=== PATIENT | female | born 1940 | race Caucasian/White ===

== ENCOUNTER → 2017-11-24 09:07 | Outpatient (CLI) | payer MEDICARE, OTHER, SELFPAY ==
[2017-11-24 10:14] LABS: Absolute Lymphocyte Count 1.86 X10^3/ul (0.83-4.51); Absolute Neutrophil Count 4.7 X10^3/uL (2.0-7.7); Basophil# 0.05 X10^3/uL; Basophil% 0.7 % (0-1); Eosinophil# 0.34 X10^3/uL; Eosinophils% 4.6 % (0-5); Lymphocyte # 1.86 X10^3/ul (4.0); Lymphocyte % 24.9 % (19-41); Mean Corp Hgb Conc 32.5 g/gl (32-36); Mean Corpuscular Hgb 32.9 pg (27.0-32.0); Mean Corpuscular Volume 101.3 fL (81-99); Mean Platelet Vol. 10.1 fl (6.2-12.0); Monocyte# 0.52 X10^3/uL; Neutrophil # 4.67 X10^3/uL (2.7-7.7); Neutrophil % 62.5 % (47-70); Platelet Count 275 K/mm3 (150-450); RBC Distribution Width CV 13.3 % (11.6-14.6); RBC Distribution Width SD 48.8 fl (35.1-43.9); Red Blood Count 3.95 M/mm3 (4.2-5.4); White Blood Count 7.5 K/mm3 (4.4-11.0)
[2017-11-24 10:15] LABS: POSITIVE COUNT NO; POSITIVE DIFFERENTIAL NO; POSITIVE MORPHOLOGY NO
[2017-11-24 10:32] LABS: Hemoglobin A1c 6.8 % (4.2-6.3)
[2017-11-24 10:41] LABS: Microalbumin:Creatinine Ratio 36.5 mg/g CRE (<30 mg/g CRE)
[2017-11-24 10:49] LABS: AST(SGOT) 20 U/L (15-37); Alanine Aminotransfer ALT/SGPT 28 U/L (13-56); Albumin, Serum 3.3 g/dL (3.2-5.0); Alkaline Phosphatase 100 U/L (45-117); Anion Gap 8 (5-15); BUN 12 mg/dL (7-18); BUN/Creat Ratio 16.7 RATIO (10-20); Calcium,Total 8.7 mg/dL (8.5-10.1); Chloride 106 mmol/L (98-107); Creatinine, Serum 0.72 mg/dL (0.55-1.02); EST Glomerular Filtration Rate 83 mL/min (>60); Est Glom Filt Rate - Afr Amer 101 mL/min (>60); Ferritin 66 ng/mL (8-252); Globulin 3.4 g/dL (2.2-4.2); Glucose 109 mg/dL (74-106); Potassium 4.2 mmol/L (3.5-5.1); Protein, Total 6.7 g/dL (6.4-8.2); Sodium Level 142 mmol/L (136-145); Thyroid Stim Hormone (TSH) 1.86 uIU/mL (0.358-3.74)
[2017-11-25 09:03] LABS: Vitamin B12 1445 pg/mL (211-911); Vitamin D,25 Hydroxy 42.7 ng/mL (29.95-100.01)
== END ==
PROVIDERS: Family Provider Family Medicine; PCP Family Medicine; Visit Provider Family Medicine
DX: E88.81 Metabolic syndrome and other insulin resistance (principal); G62.9 Polyneuropathy, unspecified; E55.9 Vitamin D deficiency, unspecified; E53.8 Deficiency of other specified B group vitamins
CPT/HCPCS: 36415; 80053; 82043; 82306; 82570; 82607; 82728; 82746; 83036; 84443; 85025

== ENCOUNTER → 2018-02-21 10:47 | Outpatient (CLI) | payer MEDICARE, OTHER, SELFPAY ==
[2018-02-21 12:21] LABS: Erythrocyte Sedimentation Rate 4 mm/hr (0-30)
[2018-02-21 12:24] LABS: Absolute Lymphocyte Count 1.69 X10^3/ul (0.83-4.51); Absolute Neutrophil Count 9.5 X10^3/uL (2.0-7.7); Basophil# 0.03 X10^3/uL; Basophil% 0.2 % (0-1); Eosinophil# 0.19 X10^3/uL; Eosinophils% 1.6 % (0-5); Hematocrit 41.1 % (37-47); Hemoglobin 13.3 g/dl (12.0-15.0); Lymphocyte # 1.69 X10^3/ul (4.0); Mean Corp Hgb Conc 32.4 g/gl (32-36); Mean Corpuscular Hgb 31.8 pg (27.0-32.0); Mean Corpuscular Volume 98.3 fL (81-99); Mean Platelet Vol. 10.3 fl (6.2-12.0); Monocyte# 0.65 X10^3/uL; Monocyte% 5.4 % (0-10); Neutrophil % 78.5 % (47-70); Platelet Count 288 K/mm3 (150-450); RBC Distribution Width CV 13.6 % (11.6-14.6); RBC Distribution Width SD 47.6 fl (35.1-43.9); Red Blood Count 4.18 M/mm3 (4.2-5.4); White Blood Count 12.1 K/mm3 (4.4-11.0)
[2018-02-21 12:25] LABS: POSITIVE COUNT NO; POSITIVE DIFFERENTIAL NO; POSITIVE MORPHOLOGY NO
[2018-02-21 12:41] LABS: CRP 5.63 mg/L (0.0-3.0)
== END ==
PROVIDERS: Family Provider Family Medicine; PCP Family Medicine; Referring Provider Physician Assistant Surgical; Visit Provider Physician Assistant Surgical
DX: M17.11 Unilateral primary osteoarthritis, right knee (principal); M25.561 Pain in right knee
CPT/HCPCS: 36415; 85025; 85652; 86140

== ENCOUNTER → 2018-05-01 09:04 | Outpatient (CLI) | payer MEDICARE, OTHER, SELFPAY ==
[2017-09-16 10:22] VITALS: BMI 31.1
[2018-05-01 10:22] LABS: Absolute Lymphocyte Count 1.56 X10^3/ul (0.83-4.51); Absolute Neutrophil Count 7.7 X10^3/uL (2.0-7.7); Basophil# 0.05 X10^3/uL; Basophil% 0.5 % (0-1); Eosinophil# 0.36 X10^3/uL; Eosinophils% 3.5 % (0-5); Hematocrit 39.4 % (37-47); Hemoglobin 12.5 g/dl (12.0-15.0); Lymphocyte # 1.56 X10^3/ul (4.0); Lymphocyte % 15.1 % (19-41); Mean Corp Hgb Conc 31.7 g/gl (32-36); Mean Corpuscular Hgb 30.6 pg (27.0-32.0); Mean Corpuscular Volume 96.6 fL (81-99); Mean Platelet Vol. 10.1 fl (6.2-12.0); Monocyte# 0.64 X10^3/uL; Monocyte% 6.2 % (0-10); Neutrophil # 7.72 X10^3/uL (2.7-7.7); Neutrophil % 74.4 % (47-70); Platelet Count 257 K/mm3 (150-450); RBC Distribution Width CV 13.9 % (11.6-14.6); RBC Distribution Width SD 49.6 fl (35.1-43.9); Red Blood Count 4.08 M/mm3 (4.2-5.4); White Blood Count 10.4 K/mm3 (4.4-11.0)
[2018-05-01 10:23] LABS: POSITIVE COUNT NO; POSITIVE DIFFERENTIAL NO; POSITIVE MORPHOLOGY NO
[2018-05-01 10:50] LABS: Vitamin B12 851 pg/mL (211-911); Vitamin D,25 Hydroxy 42.4 ng/mL (29.95-100.01)
[2018-05-01 10:57] LABS: AST(SGOT) 14 U/L (15-37); Alanine Aminotransfer ALT/SGPT 21 U/L (13-56); Albumin, Serum 3.2 g/dL (3.2-5.0); Alkaline Phosphatase 106 U/L (45-117); Anion Gap 10 (5-15); BUN 12 mg/dL (7-18); BUN/Creat Ratio 16.3 RATIO (10-20); CRP 9.52 mg/L (0.0-3.0); Calcium,Total 8.4 mg/dL (8.5-10.1); Chloride 107 mmol/L (98-107); Creatinine, Serum 0.73 mg/dL (0.55-1.02); EST Glomerular Filtration Rate 81 mL/min (>60); Est Glom Filt Rate - Afr Amer 98 mL/min (>60); Globulin 3.3 g/dL (2.2-4.2); Glucose 93 mg/dL (74-106); Potassium 4.3 mmol/L (3.5-5.1); Protein, Total 6.5 g/dL (6.4-8.2); Sodium Level 142 mmol/L (136-145); Thyroid Stim Hormone (TSH) 1.77 uIU/mL (0.358-3.74)
[2018-05-03 12:02] LABS: ANTINUCLEAR ANTIBODIES DIRECT Negative (Negative)
--- OUTSIDE RECORDS SUMMARY | 2018-08-02 20:27 | XMS RPT_ITS ---
:1940 Author Organization OHIP Care Team Providers Name Role Phone Steve Benavidez Attending Unavailable Steve Benavidez Primary Care Unavailable Maira Glass Attending Unavailable Ya Recinos Attending Unavailable Maira Glass Attending Unavailable Maribell Arias Attending Unavailable Steve Benavidez Referring Unavailable Steve Benavidez Primary Care Unavailable Steve Benavidez Attending Unavailable Steve Benavidez Primary Care Unavailable Jimenez Steen PA-C Attending Unavailable Jimenez Steen PA-C Referring Unavailable Steve Benavidez Primary Care Unavailable PROBLEMS PROBLEMS DATE TYPE CONDITION / CODE ATTENDING STATUS SOURCE 02/21/2018 Unknown M17.11 - Celsa Active [place] Unilateral primary Jimenez KIMBALL [facility] osteoarthritis, [facility] right knee / Repository M17.11(ICD-10) 02/21/2018 Unknown M25.561 - Pain in [place], Active [place] right knee / [facility] M25.561(ICD-10) Hospital Repository 11/24/2017 Unknown E88.81 - Metabolic Benavidez, Steve Active [place] syndrome / [facility] E88.81(ICD-10) Hospital Repository 11/24/2017 Unknown G62.9 - Benavidez, Steve Active [place] Polyneuropathy, Community unspecified / Hospital G62.9(ICD-10) Repository 11/24/2017 Unknown E55.9 - Vitamin D Benavidez, Steve Active [place] deficiency, Community unspecified / Hospital E55.9(ICD-10) Repository 11/24/2017 Unknown E53.8 - Deficiency Benavidez, Steve Active [facility] of other specified Community [facility] group vitamins / Hospital E53.8(ICD-10) Repository 09/16/2017 Unknown I48.0 - Paroxysmal [place], Active [place] atrial Maribell M [facility] fibrillation / Hospital I48.0(ICD-10) Repository PROCEDURES PROCEDURES No Procedure Records FoundRESULTS RESULTS CBC W/DIFF, AUTOMATED Collected: 05/01/2018 Status: F Source: [place] 9:07 AM [facility] REPOSITORY TYPE CODE TESTS RESULT OUT OF RANGE REFERENCE UNITS LAB L100.1000 4.4-11.0 K/mm3 Normal WBC 10.4 LAB L100.1200 4.2-5.4 M/mm3 Low RBC 4.08 LAB L100.1300 12.0-15.0 g/dl Normal HGB 12.5 LAB L100.1400 37-47 % Normal HCT 39.4 LAB L100.1500 81-99 fL Normal MCV 96.6 LAB L100.1600 27.0-32.0 pg Normal MCH 30.6 LAB L100.1700 32-36 g/gl Low MCHC 31.7 LAB L100.1810 11.6-14.6 % Normal RDW CV 13.9 LAB L100.1820 35.1-43.9 fl High RDW SD 49.6 LAB L100.1900 150-450 K/mm3 Normal PLT 257 LAB L100.2000 6.2-12.0 fl Normal MPV 10.1 LAB L100.2100 47-70 % High NEUT% 74.4 LAB L100.2200 19-41 % Low LY% 15.1 LAB L100.2300 0-10 % Normal MONO% 6.2 LAB L100.2400 0-5 % Normal EO% 3.5 LAB L100.2500 0-1 % Normal BASO% 0.5 LAB L100.2550 0.0-0.9 % Normal IM GRAN % 0.300 Result Comment: IG% - Immature Granulocytes (promyelocytes, myelocytes and metamyelocytes) > 1% indicates that a LEFT SHIFT is Present. LAB L100.2620 2.0-7.7 X10 3/uL Normal Absolute Neut 7.7 LAB L100.2720 0.83-4.51 X10 3/ul Normal Absolute Lymph 1.56 Performed By: #### L100.0100 #### [facility] [address] [place], [address] VITAMIN B12 Collected: 05/01/2018 Status: F Source: [place] 9:07 [facility] REPOSITORY TYPE CODE TESTS RESULT OUT OF RANGE REFERENCE UNITS LAB L503.0105 211-911 pg/mL Normal Vitamin B12 851 Performed By: #### L503.0105, L506.1000 #### [facility] [address] [place], [address] VITAMIN D,25 HYDROXY Collected: 05/01/2018 Status: F Source: [place] 9:07 [facility] REPOSITORY TYPE CODE TESTS RESULT OUT OF RANGE REFERENCE UNITS LAB L506.1000 29.95-100.01 ng/mL Normal Vitamin D 42.4 25-OH Result Comment: Vitamin D 25(OH) Status Range Deficiency <20 ng/mL (50nmol/L) Insuffciency 20 - 30 ng/mL (50 - 75 nmol/L) Sufficiency 30 - 100 ng/mL (75 - 250 nmol/L) Toxicity >100 ng/mL (>250 nmol/L) Performed By: #### L503.0105, L506.1000 #### [facility] [address] [place], [address] COMPREHENSIVE METABOLIC Collected: 05/01/2018 Status: F Source: [facility] 9:07 [facility] REPOSITORY TYPE CODE TESTS RESULT OUT OF RANGE REFERENCE UNITS LAB L501.0100 74-106 mg/dL Normal GLU 93 Result Comment: Please note revised GLUCOSE reference range effective 2017. LAB L501.1000 7-18 mg/dL Normal BUN 12 LAB L501.1100 0.55-1.02 mg/dL Normal CREAT,SERUM 0.73 Result Comment: The validity of the calculated GFR AND GFRAA in patients over 70 years has not been determined. Clinical correlation is essential. LAB L501.1110 >60 mL/min Normal EST GFR 81 Result Comment: Non- GFR Calc LAB L501.1115 >60 mL/min Normal EST GFR - AA 98 Result Comment: GFR Calc LAB L501.1300 10-20 RATIO Normal BUN/CRE 16.3 LAB L501.1500 6.4-8.2 g/dL T Normal PROT 6.5 LAB L501.1800 3.2-5.0 g/dL Normal ALB 3.2 LAB L501.1950 2.2-4.2 g/dL Normal GLOB 3.3 LAB L501.2000 0.9-2.4 RATIO Normal A/G 1.0 LAB L501.2200 8.5-10.1 mg/dL Low CA 8.4 LAB L501.4100 15-37 U/L Low AST 14 LAB L501.4305 45-117 U/L Normal ALK P 106 LAB L501.4405 13-56 U/L Normal ALT 21 LAB L501.4600 0.20-1.00 mg/dL T Normal BILI 0.30 LAB L501.5300 136-145 mmol/L NA Normal 142 LAB L501.5600 3.5-5.1 mmol/L K Normal 4.3 LAB L501.5900 98-107 mmol/L CL Normal 107 LAB L501.6100 21.0-32.0 mmol/L Normal CO2 25.0 LAB L501.6200 5-15 Normal GAP 10 Performed By: #### L500.4050, L501.6710, L501.9520 #### [place] [facility] [address] [place], [address] CRP Collected: 05/01/2018 Status: F Source: [place] 9:07 [facility] REPOSITORY TYPE CODE TESTS RESULT OUT OF RANGE REFERENCE UNITS LAB L501.6710 0.0-3.0 mg/L High 9.52 C-REACTIVE PROT Result Comment: C-Reactive Protein (CRP) provides useful information for the diagnosis, therapy and monitoring of inflammatory processes and associated diseases. For the evaluation of Relative Risk for Cardiovascular Disease, a High Sensitivity CRP (HSCRP) should be ordered. Performed By: #### L500.4050, L501.6710, L501.9520 #### [facility] [address] [place], [place], [address] THYROID STIM HORMONE Collected: 05/01/2018 Status: F Source: [place] (TSH) 9:[address] [facility] REPOSITORY TYPE CODE TESTS RESULT OUT OF RANGE REFERENCE UNITS LAB L501.9520 0.358-3.74 uIU/mL Normal TSH 1.77 Performed By: #### L500.4050, L501.6710, L501.9520 #### [facility] [address] [place], [place], [id number] ANTINUCLEAR ANTIBODIES Collected: 05/01/2018 Status: F Source: [place] DIRECT 9:[address] [facility] REPOSITORY TYPE CODE TESTS RESULT OUT OF RANGE REFERENCE UNITS LAB L3100.5475 Negative Normal Negative ILEANA-DIRECT Result Comment: Performed at: - [facility] [id number] Procurement Consultant: Ernie Hanson PhD, Phone: [phone] Performed By: #### L3100.5475 #### [facility] (refer to report for specific site) refer to report for address and phone number ERYTHROCYTE SED RATE Collected: 02/21/2018 Status: F Source: [place] 10:[address] [facility] REPOSITORY TYPE CODE TESTS RESULT OUT OF RANGE REFERENCE UNITS LAB L102.0000 0-30 mm/hr Normal SED RATE 4 Performed By: #### L101.9900, L100.0100 #### [facility] [address] [place], [place], [address] CBC W/DIFF, AUTOMATED Collected: 02/21/2018 Status: F [facility] [place] [facility] TYPE CODE TESTS RESULT OUT OF RANGE REFERENCE UNITS LAB L100.1000 4.4-11.0 K/mm3 High WBC 12.1 LAB L100.1200 4.2-5.4 M/mm3 Low RBC 4.18 LAB L100.1300 12.0-15.0 g/dl Normal HGB 13.3 LAB L100.1400 37-47 % Normal HCT 41.1 LAB L100.1500 81-99 fL Normal MCV 98.3 LAB L100.1600 27.0-32.0 pg Normal MCH 31.8 LAB L100.1700 32-36 g/gl Normal MCHC 32.4 LAB L100.1810 11.6-14.6 % Normal RDW CV 13.6 LAB L100.1820 35.1-43.9 fl High RDW SD 47.6 LAB L100.1900 150-450 K/mm3 Normal PLT 288 LAB L100.2000 6.2-12.0 fl Normal MPV 10.3 LAB L100.2100 47-70 % High NEUT% 78.5 LAB L100.2200 19-41 % Low LY% 14.0 LAB L100.2300 0-10 % Normal MONO% 5.4 LAB L100.2400 0-5 % Normal EO% 1.6 LAB L100.2500 0-1 % Normal BASO% 0.2 LAB L100.2550 0.0-0.9 % Normal IM GRAN % 0.300 Result Comment: IG% - Immature Granulocytes (promyelocytes, myelocytes and metamyelocytes) > 1% indicates that a LEFT SHIFT is Present. LAB L100.2620 2.0-7.7 X10 3/uL High Absolute Neut 9.5 LAB L100.2720 0.83-4.51 X10 3/ul Normal Absolute Lymph 1.69 Performed By: #### L101.9900, L100.0100 #### [facility] [place], [address] CRP Collected: 02/21/2018 Status: F Source: [place] 10:[address] [facility] REPOSITORY TYPE CODE TESTS RESULT OUT OF RANGE REFERENCE UNITS LAB L501.6710 0.0-3.0 mg/L High 5.63 C-REACTIVE PROT Result Comment: C-Reactive Protein (CRP) provides useful information for the diagnosis, therapy and monitoring of inflammatory processes and associated diseases. For the evaluation of Relative Risk for Cardiovascular Disease, a High Sensitivity CRP (HSCRP) should be ordered. Performed By: #### L501.6710 #### [facility] [place], [address] CBC W/DIFF, AUTOMATED Collected: 11/24/2017 Status: F Source: [place] 9:[address] [facility] REPOSITORY Order Comment: Order Date: 11/23/17 Order Info: 0184-1 - CBCD TYPE CODE TESTS RESULT OUT OF RANGE REFERENCE UNITS LAB L100.1000 4.4-11.0 K/mm3 Normal WBC 7.5 LAB L100.1200 4.2-5.4 M/mm3 Low RBC 3.95 LAB L100.1300 12.0-15.0 g/dl Normal HGB 13.0 LAB L100.1400 37-47 % Normal HCT 40.0 LAB L100.1500 81-99 fL High MCV 101.3 LAB L100.1600 27.0-32.0 pg High MCH 32.9 LAB L100.1700 32-36 g/gl Normal MCHC 32.5 LAB L100.1810 11.6-14.6 % Normal RDW CV 13.3 LAB L100.1820 35.1-43.9 fl High RDW SD 48.8 LAB L100.1900 150-450 K/mm3 Normal PLT 275 LAB L100.2000 6.2-12.0 fl Normal MPV 10.1 LAB L100.2100 47-70 % Normal NEUT% 62.5 LAB L100.2200 19-41 % Normal LY% 24.9 LAB L100.2300 0-10 % Normal MONO% 7.0 LAB L100.2400 0-5 % Normal EO% 4.6 LAB L100.2500 0-1 % Normal BASO% 0.7 LAB L100.2550 0.0-0.9 % Normal IM GRAN % 0.300 Result Comment: IG% - Immature Granulocytes (promyelocytes, myelocytes and metamyelocytes) > 1% indicates that a LEFT SHIFT is Present. LAB L100.2620 2.0-7.7 X10 3/uL Normal Absolute Neut 4.7 LAB L100.2720 0.83-4.51 X10 3/ul Normal Absolute Lymph 1.86 Performed By: #### L100.0100, L501.9985, L502.0250, L500.4050, L501.9520, L503.6550, L506.0250, L503.0105, L506.1000 #### [facility] [address] [place], [place], [address] HEMOGLOBIN A1C Collected: 11/24/2017 Status: F Source: [place] 9:[address] [facility] REPOSITORY Order Comment: Order Date: 11/23/17 Order Info: 4548-4 - A1C TYPE CODE TESTS RESULT OUT OF RANGE REFERENCE UNITS LAB L501.9985 4.2-6.3 % High HGB A1C 6.8 Performed By: #### L100.0100, L501.9985, L502.0250, L500.4050, L501.9520, L503.6550, L506.0250, L503.0105, L506.1000 #### [facility] [address] [place], [place], [address] MICROALB:CREAT Collected: 11/24/2017 Status: F Source: [place] 9:[address] [facility] REPOSITORY Order Comment: Order Date: 11/23/17 Order Info: 0779-1 - [place] TYPE CODE TESTS RESULT OUT OF RANGE REFERENCE UNITS LAB L501.1200 NO RANGE EST. mg/dL Normal UR CREAT 104.00 LAB L502.0500 NO RANGE EST. mg/L Normal 38.0 MICROALBUMIN ,UR LAB L502.0600 <30 mg/g CRE mg/g CRE High 36.5 MALB:CREAT Performed By: #### L100.0100, L501.9985, L502.0250, L500.4050, L501.9520, L503.6550, L506.0250, L503.0105, L506.1000 #### [facility] [address] [place], [place], [address] COMPREHENSIVE METABOLIC Collected: 11/24/2017 Status: F Source: [place] 9:[address] [facility] REPOSITORY Order Comment: Order Date: 11/23/17 Order Info: 0786-1 - CMP Order Info: 3016-3 - TSH Order Info: 2276-4 - CORBY Order Info: 2284-8 - FOLS Is Patient Taking Vitamins or Folic Acid Supplements? N TYPE CODE TESTS RESULT OUT OF RANGE REFERENCE UNITS LAB L501.0100 74-106 mg/dL High GLU 109 Result Comment: Fasting Glucose result from 100 to 125 mg/dL suggests IMPAIRED HOMEOSTASIS per A.D.A. criteria. Please note revised GLUCOSE reference range effective 2017. LAB L501.1000 7-18 mg/dL Normal BUN 12 LAB L501.1100 0.55-1.02 mg/dL Normal CREAT,SERUM 0.72 Result Comment: The validity of the calculated GFR AND GFRAA in patients over 70 years has not been determined. Clinical correlation is essential. LAB L501.1110 >60 mL/min Normal EST GFR 83 Result Comment: Non- GFR Calc LAB L501.1115 >60 mL/min Normal EST GFR - AA 101 Result Comment: GFR Calc LAB L501.1300 10-20 RATIO Normal BUN/CRE 16.7 LAB L501.1500 6.4-8.2 g/dL T Normal PROT 6.7 LAB L501.1800 3.2-5.0 g/dL Normal ALB 3.3 LAB L501.1950 2.2-4.2 g/dL Normal GLOB 3.4 LAB L501.2000 0.9-2.4 RATIO Normal A/G 1.0 LAB L501.2200 8.5-10.1 mg/dL CA Normal 8.7 LAB L501.4100 15-37 U/L Normal AST 20 LAB L501.4305 45-117 U/L Normal ALK P 100 LAB L501.4405 13-56 U/L Normal ALT 28 LAB L501.4600 0.20-1.00 mg/dL T Normal BILI 0.40 LAB L501.5300 136-145 mmol/L NA Normal 142 LAB L501.5600 3.5-5.1 mmol/L K Normal 4.2 LAB L501.5900 98-107 mmol/L CL Normal 106 LAB L501.6100 21.0-32.0 mmol/L Normal CO2 28.0 LAB L501.6200 5-15 Normal GAP 8 Performed By: #### L100.0100, L501.9985, L502.0250, L500.4050, L501.9520, L503.6550, L506.0250, L503.0105, L506.1000 #### [facility] [address] [place], [place], [address] THYROID STIM HORMONE Collected: 11/24/2017 Status: F Source: [place] (TSH) 9:[address] [facility] REPOSITORY Order Comment: Order Date: 11/23/17 Order Info: 0786- - CMP Order Info: 3015-07 - TSH Order Info: 2275-08 - CORBY Order Info: 2288 - FOLS Is Patient Taking Vitamins or Folic Acid Supplements? N TYPE CODE TESTS RESULT OUT OF RANGE REFERENCE UNITS LAB L501.9520 0.358-3.74 uIU/mL Normal TSH 1.86 Performed By: #### L100.0100, L501.9985, L502.0250, L500.4050, L501.9520, L503.6550, L506.0250, L503.0105, L506.1000 #### [facility] [address] [place], [place], [id number] FERRITIN Collected: 11/24/2017 Status: F Source: [place] 9:[address] [facility] REPOSITORY Order Comment: Order Date: 11/23/17 Order Info: 0786- - CMP Order Info: 3015-07 - TSH Order Info: 2275-08 - CORBY Order Info: 228-8 - FOLS Is Patient Taking Vitamins or Folic Acid Supplements? N TYPE CODE TESTS RESULT OUT OF RANGE REFERENCE UNITS LAB L503.6550 8-252 ng/mL Normal FERRITIN 66 Performed By: #### L100.0100, L501.9985, L502.0250, L500.4050, L501.9520, L503.6550, L506.0250, L503.0105, L506.1000 #### [facility] [address] [place], [place], [address] FOLATES, (FOLIC ACID) Collected: 11/24/2017 Status: F Source: [place] 9:09 [facility] REPOSITORY Order Comment: Order Date: 11/23/17 Order Info: 0786-1 - CMP Order Info: 3016-3 - TSH Order Info: 2276-4 - CORBY Order Info: 2284-8 - FOLS Is Patient Taking Vitamins or Folic Acid Supplements? N TYPE CODE TESTS RESULT OUT OF RANGE REFERENCE UNITS LAB L506.0250 3.1-55.4 ng/mL Normal FOLATES 17.70 Performed By: #### L100.0100, L501.9985, L502.0250, L500.4050, L501.9520, L503.6550, L506.0250, L503.0105, L506.1000 #### [facility] [address] [place], [place], [id number] VITAMIN B12 Collected: 11/24/2017 Status: F Source: [place] 9:09 [facility] REPOSITORY Order Comment: Order Date: 11/23/17 Order Info: 2132-9 - B12 Order Info: 40159-9 - VITD25 TYPE CODE TESTS RESULT OUT OF REFERENCE UNITS RANGE LAB L503.0105 211-911 pg/mL High Vitamin B12 1445 Performed By: #### L100.0100, L501.9985, L502.0250, L500.4050, L501.9520, L503.6550, L506.0250, L503.0105, L506.1000 #### [facility] [address] [place], [place], [address] VITAMIN D,25 HYDROXY Collected: 11/24/2017 Status: F Source: [place] 9:09 [facility] REPOSITORY Order Comment: Order Date: 11/23/17 Order Info: 2132-9 - B12 Order Info: 00210-0 - VITD25 TYPE CODE TESTS RESULT OUT OF RANGE REFERENCE UNITS LAB L506.1000 29.95-100.01 ng/mL Normal Vitamin D 42.7 25-OH Result Comment: Vitamin D 25(OH) Status Range Deficiency <20 ng/mL (50nmol/L) Insuffciency 20 - 30 ng/mL (50 - 75 nmol/L) Sufficiency 30 - 100 ng/mL (75 - 250 nmol/L) Toxicity >100 ng/mL (>250 nmol/L) Performed By: #### L100.0100, L501.9985, L502.0250, L500.4050, L501.9520, L503.6550, L506.0250, L503.0105, L506.1000 #### [facility] [address] [place], [address] CARDIOLOGY VISIT Observed: 09/16/2017 Status: F Source: [place] REPORT 11:[address] [facility] REPOSITORY [facility] [facility] [address] [place] [address] OFFICE VISIT Date of Service: 09/16/17 MR#: [id number] Acct: [id number] Name: MAGDY MIRAMONTES Rep #: [id number] : 1940 Provider: [place] Age/Sex: 76/F Location: [facility] Status: Signed HPI HPI Details: MAGDY MIRAMONTES, is a 76 F who presents to the office today for a cardiovascular follow-up. She has a history of paroxysmal atrial fibrillation and hypertension. EKG today demonstrates sinus rhythm with a heart rate of 75. From a cardiac standpoint, patient is doing well. She does not have any chest discomfort/heaviness/tightness. Her exercise tolerance is stable for her age. She does not have any worsening symptoms of shortness of breath. She does not have any orthopnea. She denies PND. She does not have any symptoms of congestive heart failure. She does not have any palpitations that she is aware of. She does occasionally have positional dizziness. She does not have any near-syncope or syncope. She does not have any lower extremity edema. She does not have any symptoms of claudication. She does have neuropathy and this affects her balance. Intake Vital Signs09/16/17 Height 5 ft 7.5 in 09/16/17 Weight: 202 lb 09/16/17 Body Mass Index (BMI) 31.1 09/16/17 Blood Pressure 122/62 Intake Visit Reasons: 6 M Telephone Triage Nurse Required: No Accompanied by: none Is patient in pain?: No Allergies bacitracin [From Neosporin (qcn-iwz-nyxqw)] Allergy (Verified 09/16/17 10:24) Rash bacitracin zinc [From Neosporin (jnf-eqo-nyfba)] Allergy (Verified 09/16/17 10:24) Rash codeine Allergy (Verified 09/16/17 10:24) Nausea neomycin sulfate [From Neosporin (aiq-ztb-nocmv)] Allergy (Verified 09/16/17 10:24) Rash nickel Allergy (Verified 09/16/17 10:24) Rash polymyxin B [From Neosporin (wmx-gdp-rkaba)] Allergy (Verified 09/16/17 10:24) Rash sulfamethoxazole [From Bactrim] Adverse Reaction (Verified 09/16/17 10:24) Itching trimethoprim [From Bactrim] Adverse Reaction (Verified 09/16/17 10:24) Itching Medications Biotin 1,000 mg PO DAILY 11/21/14 [History Confirmed 09/16/17] Cholecalciferol (Vitamin D3) [Vitamin D3] 10,000 unit PO DAILY 11/21/14 [History Confirmed 09/16/17] Cyanocobalamin [Vitamin B12] 1,000 mcg PO DAILY@0800 11/21/14 [History Confirmed 09/16/17] Lisinopril [Zestril] 20 mg PO DAILY 11/21/14 [History Confirmed 09/16/17] Aspirin [Aspirin, Baby] 81 mg PO DAILY 01/25/16 [History Confirmed 09/16/17] tramadol 50 mg tablet 50 mg PO QDAY PRN tab 09/08/17 [History Confirmed 09/16/17] gabapentin 300 mg capsule PO 30 Days #90 09/16/17 [History Confirmed 09/16/17] linaclotide 145 mcg capsule PO 60 Days #30 09/16/17 [History Confirmed 09/16/17] magnesium oxide 400 mg tablet PO 30 Days #60 09/16/17 [History Confirmed 09/16/17] Ejection fraction %: 60 to 64 PFSH Medical History Amputated toe of right foot (Resolved) Neuropathy, diabetic (Chronic) Hypertension (Chronic) DM2 (diabetes mellitus, type 2) (Chronic) Paroxysmal atrial fibrillation (Chronic) Surgical History History of neck surgery (Resolved) Hx of cholecystectomy (Resolved) History of appendectomy (Resolved) Deviated septum (Resolved) History of tonsillectomy (Resolved) H/O: hysterectomy (Resolved) Family History Father No problems noted. Mother No problems noted. Social History Smoking Status: Former smoker alcohol intake: never substance use type: does not use caffeine: No what type of physical activity do you participate in: other details: physical therapy seatbelt use: always do you feel safe at home: Yes ROS Const Const: Negative for weakness, fatigue, fever(s) or headache(s) Eyes Eyes: Negative for blind spots, loss of peripheral vision or transient loss of vision ENT ENT: Negative for headache(s), dizziness, tinnitus or Nosebleed/epistaxis Cardio Chest Pain: No Palpitations: No Edema: None Muscle aches with walking: None Resp Respiratory: Negative for SOB with activity, SOB at rest, SOB orthopnea\SOB lying down or Cough GI GI: Negative nausea, vomiting, heartburn or vomiting blood/hematemesis : Negative for hematuria Musc Musc: Negative for muscle aches/ myalgia Neuro Neuro: Negative for weakness, headache(s), dizziness, near syncope, syncope, lightheadedness or orthostatic symptoms Arun Hematologic/Lymphatic: Negative for easy bleeding Endo Endo: Negative for fatigue Cardiology Exam Const Appearance: cooperative, no acute distress and well developed Orientation: alert, awake and oriented x3 Head Head: normocephalic and atraumatic Mouth: moist mucous membranes Eyes General: appearance normal, both eyes and all related structures Conjunctivae: conjunctivae normal Pupils: PERRL EOM: EOM intact bilaterally Neck Neck: normal visual inspection, no lymphadenopathy and no JVD Carotids: Negative bruit Neck Mass: Negative Neck mass Chest Chest inspection: normal inspection of the chest and symmetric chest movement Auscultation: Bilateral: Clear to Auscultation Cardio Palpation: normal PMI Rate: regular rate Rhythm: regular rhythm Heart sounds: S1 normal and S2 normal; negative rub, gallop or murmur GI GI: normal to inspection, soft, no hepatosplenomegaly and bowel sounds present; negative tender Neuro General: alert, awake, oriented x3, CN's II-XI intact bilaterally and moves all extremities Extremities Pulses: Normal: Right Posterior Tibial Pulse, Left Posterior Tibial Pulse, Right Radial Pulse, Left Radial Pulse Lower Extremity Edema: None: Bilateral Psych Psychological: normal affect Supplemental Info Echocardiogram in 2016 demonstrates normal LV size, mild concentric LVH, left ventricular systolic function is normal with an estimated ejection fraction of 60%. Sigmoid symptom. Mild tricuspid insufficiency. RVSP 28 mmHg. Stress test was negative for ischemia. Assessment AND Plan 1. Paroxysmal atrial fibrillation I48.0 Plan Patient has not had any symptomatic recurrence. We will continue to monitor. If she has any further recurrence may need to consider anticoagulation. Orders Orders: 2. Hypertension I10 Plan Blood pressure is well controlled on current medications, we do not recommend any changes at this time. Plan Detail Other Medications New: Discontinued: Additional Comments Thank you for allowing us to participate in patient's plan of care, if you have any questions please do not hesitate to call. This note was generated using a voice recognition system and there may be incorrect words, spelling or punctuation errors that were not noted when reviewing the office note prior to saving. Follow Up 9 Months (PFM) Coding Level of Care Code Off vis,est,level 3 Diagnoses Paroxysmal atrial fibrillation I48.0 Hypertension I10 Hypertension type: essential hypertension Coding Level of Care Code Off vis,est,level 3 Diagnoses Paroxysmal atrial fibrillation I48.0 Hypertension I10 Hypertension type: essential hypertension 09/16/17 1110 <Electronically signed by Maribell YATES> Date Maribell YATES Cosigner Signature: Date (if applicable) CC: Steve Benavidez MD 12 LEAD EKG PERFORMED Observed: 09/16/2017 Status: F Source: [place] 10:[address] [facility] REPOSITORY [facility] [address] [place] [address] 12 Lead EKG performed by SUZI 09/16/17 1017 MR#: [id number] Acct: [id number] Name: MAGDY MIRAMONTES Rep #: [id number] : 1940 76 From: Maribell YATES Attending Dr: Maribell Arias Status: DEP AMB Ordering Dr: Maribell Arias Date: 09/16/17 Location: [facility] Sex: F C Admitted: BMS/12 Lead EKG performed by [facility] ECG Report Interpretation Sinus Rhythm Low voltage -possible pulmonary disease. ABNORMAL Electronically signed on 09/16/2017 at 14:16 by Beka Payan 09/16/17 1421 Date Maribell YATES CC: Steve Benavidez MD Date Dictated: 09/16/17 1017 Date Transcribed: 09/16/17 1017 [employer] Teacher: GREY Signed ALLERGIES ALLERGIES DATE TYPE / CODE NAME / CODE REACTION SEVERITY SOURCE 09/16/2017 Drug neomycin Rash Unknown [facility] Allergy/416 sulfate/[id number] [facility] [id number]([facility] ED CT) Repository 09/16/2017 Drug bacitracin Rash Unknown [facility] Allergy/416 zinc/[id number](R [facility] 783467([facility] ED CT) Repository 09/16/2017 Drug codeine/[id number] Nausea Unknown [facility] Allergy/416 0(RXNORM) Community 431699([facility] ED CT) Repository 09/16/2017 Drug bacitracin/X32271 Rash Unknown [place] Allergy/416 2798(RXNORM) Community 647945([facility] ED CT) Repository 09/16/2017 Drug sulfamethoxazole/ Itching Unknown [place] Allergy/416 [id number](RXNORM Community 315088[facility] ED [facility]) Repository 09/16/2017 Drug trimethoprim/F006 Itching Unknown [facility] Allergy/416 109440(RXNORM) Community 939086([facility] ED CT) Repository 09/16/2017 Drug polymyxin Rash Unknown [facility] Allergy/416 B/[id number](RXNO Community 146120([facility] ED CT) Repository 09/16/2017 Drug nickel/[id number] Rash Unknown [facility] Allergy/416 (RXNORM) [facility] 854935([facility] ED CT) Repository ENCOUNTERS ENCOUNTERS ADMIT/DISCHARGE ACCOUNT ADMITTING ENCOUNTER LOCATION SOURCE NUMBER CLASS 05/01/2018 [id number] Ambulatory [facility] [place] 0 [facility] ing:MFPLAB Repository 02/21/2018 [id number] Ambulatory [facility] [place] 5 [facility] ing:LAB Repository 11/24/2017 [id number] Ambulatory [place] 2 [facility] ing:MFPLAB Repository 09/16/2017/ [id number] Ambulatory BMSBuilding:B [place] [address] [facility] Repository 09/08/2017 [id number] Ambulatory BMS [facility] 6 [facility] Repository 09/05/2017 [id number] Ambulatory BMSBuilding:B [place] [address] [facility] Repository 08/30/2017 [id number] Ambulatory BMS [place] 1 [facility] Repository PAYERS PAYERS ENCOUNTER GUARANTOR PAYER SUBSCRIBER SOURCE 05/01/2018 MAGDY [facility] [id number] Primary MAGDY H [facility] [employer] Insurance:MEDICARE [place]OB: [place] PART A [facility] [id number] Hospital 99759Fhp: (234) Number: Repository [phone] ) [id number] Date:2018-05-01 05/01/2018 Secondary MAGDY H [facility] Insurance:CANDIDA LIFE PUNTELDOB: [facility] [id number] Hospital Number: Repository [id number] Date:3875-14-57[address] [place] [address]CP: 05/01/2018 Tertiary NOT GIVENUNK [place] Insurance:SELF PAY [facility] Number: Effective Repository Date:2018-05-01 02/21/2018 MAGDY H [id number] Primary MAGDY H [place] Insurance:MEDICARE PUNTELDOB: [place] PART A [facility] [id number] Hospital 88253Giw: (234) Number: Repository [phone] () [id number] Date:2018-02-20 02/21/2018 Secondary MAGDY H [facility] Insurance:CANDIDA LIFE PUNTELDOB: [facility] [id number] Hospital Number: Repository [id number] Date:[id number] [address]JI: 02/21/2018 Tertiary NOT GIVENUNK [facility] Insurance:SELF PAY [facility] Hospital Number: Effective Repository Date:2018-02-20 11/24/2017 MAGDY H [id number] Primary MAGDY H [facility] [employer] Insurance:MEDICARE PUNTELDOB: [place] PART A [facility] [id number] Hospital 17[address]Egw: (330) Number: Repository [phone] () [id number] Date:2017-11-24 11/24/2017 Secondary MAGDY H [facility] Insurance:CANDIDA LIFE PUNTELDOB: Community [facility] [id number] Hospital Number: Repository [id number] Date:[id number] [address]VF: 11/24/2017 Tertiary NOT GIVENUNK [facility] Insurance:SELF PAY [facility] Hospital Number: Effective Repository Date:2017-11-24 09/16/2017 MAGDY H [id number] Primary MAGDY H [facility] [place] Insurance:MEDICARE PUNTELDOB: [place] PART A [facility] [id number] Hospital 717[address]Rfq: (330) Number: Repository [phone] () [id number] Date:2017-09-05 09/16/2017 Secondary MAGDY H [place] Insurance:CANDIDA LIFE PUNTELDOB: Community [facility] [id number] Hospital Number: Repository [id number] Date:[id number] [address]UW: 09/16/2017 Tertiary NOT GIVENUNK [place] Insurance:SELF PAY [facility] Hospital Number: Effective Repository Date:2017-09-16 09/08/2017 MAGDY H [id number] Primary MAGDY H [facility] [employer] Insurance:MEDICARE PUNTELDOB: Community [facility], [place] PART A [facility] [id number] Hospital [address]Mut: (330) Number: Repository [phone] () [id number] Date:2017-09-08 09/08/2017 Secondary MAGDY H [facility] Insurance:CANDIDA LIFE PUNTELDOB: [facility] [id number] Hospital Number: Repository [id number] Date:[id number] [address] [address]BW: 09/08/2017 Tertiary NOT GIVENUNK [facility] Insurance:SELF PAY [facility] Hospital Number: Effective Repository Date:2017-09-08 09/05/2017 MAGDY H [id number] Primary MAGDY H [facility] [employer] Insurance:MEDICARE PUNTELDOB: [place], [place] PART A [facility] [id number] Hospital [address]35[address]Ngc: (330) Number: Repository [phone] () [id number] Date:2017-09-05 09/05/2017 Secondary MAGDY H [place] Insurance:CANDIDA LIFE PUNTELDOB: [facility] [id number] Hospital Number: Repository [id number] Date:[id number] [address]ZR: 09/05/2017 Tertiary NOT GIVENUNK [facility] Insurance:SELF PAY [facility] Hospital Number: Effective Repository Date:2017-09-05 08/30/2017 MAGDY H [id number] Primary MAGDY H [place] Insurance:MEDICARE PUNTELDOB: Community [facility], [place] PART A [facility] [id number] Hospital 89[address]Bye: (330) Number: Repository [phone] () [id number] Date:2017-08-30 08/30/2017 Secondary MAGDY H [facility] Insurance:CANDIDA ÁNGEL PUNTELDOB: [facility] [id number] [facility] Number: Repository [id number] Date:1183-13-76YV [address]Y [address] [address]HV: 08/30/2017 Tertiary NOT GIVENUNK [place] Insurance:SELF PAY [facility] Number: Effective Repository Date:2017-08-30
== END ==
PROVIDERS: Family Provider Family Medicine; PCP Family Medicine; Visit Provider Family Medicine
DX: E11.40 Type 2 diabetes mellitus with diabetic neuropathy, unspecified (principal); M25.50 Pain in unspecified joint; E55.9 Vitamin D deficiency, unspecified; E53.8 Deficiency of other specified B group vitamins
CPT/HCPCS: 36415; 80053; 82306; 82607; 84443; 85025; 86038; 86140

== ENCOUNTER → 2018-07-27 14:26 | Outpatient (CLI) | payer MEDICARE, OTHER, SELFPAY ==
[2017-09-16 10:22] VITALS: BMI 31.1
[2018-07-27 16:23] LABS: Absolute Lymphocyte Count 1.61 X10^3/ul (0.83-4.51); Absolute Neutrophil Count 7.6 X10^3/uL (2.0-7.7); Basophil# 0.05 X10^3/uL; Basophil% 0.5 % (0-1); Eosinophil# 0.28 X10^3/uL; Eosinophils% 2.7 % (0-5); Hematocrit 40.9 % (37-47); Hemoglobin 12.8 g/dl (12.0-15.0); Lymphocyte # 1.61 X10^3/ul (4.0); Lymphocyte % 15.7 % (19-41); Mean Corp Hgb Conc 31.3 g/gl (32-36); Mean Corpuscular Hgb 31.6 pg (27.0-32.0); Mean Platelet Vol. 10.7 fl (6.2-12.0); Monocyte# 0.69 X10^3/uL; Monocyte% 6.7 % (0-10); Neutrophil # 7.62 X10^3/uL (2.7-7.7); Neutrophil % 74.2 % (47-70); Platelet Count 248 K/mm3 (150-450); RBC Distribution Width CV 13.8 % (11.6-14.6); RBC Distribution Width SD 49.9 fl (35.1-43.9); Red Blood Count 4.05 M/mm3 (4.2-5.4); White Blood Count 10.3 K/mm3 (4.4-11.0)
[2018-07-27 16:47] LABS: POSITIVE COUNT NO; POSITIVE DIFFERENTIAL NO; POSITIVE MORPHOLOGY NO
[2018-07-27 16:51] LABS: ALB/GLOB Ratio 1.2 RATIO (0.9-2.4); AST(SGOT) 13 U/L (15-37); Alanine Aminotransfer ALT/SGPT 21 U/L (13-56); Albumin, Serum 3.6 g/dL (3.2-5.0); Alkaline Phosphatase 102 U/L (45-117); Anion Gap 6 (5-15); BUN 15 mg/dL (7-18); BUN/Creat Ratio 21.8 RATIO (10-20); Calcium,Total 8.9 mg/dL (8.5-10.1); Chloride 108 mmol/L (98-107); Creatinine, Serum 0.69 mg/dL (0.55-1.02); EST Glomerular Filtration Rate 88 mL/min (>60); Est Glom Filt Rate - Afr Amer 106 mL/min (>60); Globulin 2.9 g/dL (2.2-4.2); Glucose 98 mg/dL (74-106); Potassium 3.8 mmol/L (3.5-5.1); Protein, Total 6.5 g/dL (6.4-8.2); Sodium Level 144 mmol/L (136-145)
[2018-07-27 17:10] LABS: Hemoglobin A1c 5.9 % (4.2-6.3)
== END ==
PROVIDERS: Family Provider Family Medicine; PCP Family Medicine; Referring Provider Family Medicine; Visit Provider Family Medicine
DX: E11.40 Type 2 diabetes mellitus with diabetic neuropathy, unspecified (principal)
CPT/HCPCS: 36415; 80053; 83036; 85025

== ENCOUNTER → 2018-09-14 08:36 | Outpatient (CLI) | payer MEDICARE, OTHER, SELFPAY ==
[2018-09-13 13:59] VITALS: BMI 28.8
[2018-09-14 10:50] LABS: AST(SGOT) 14 U/L (15-37); Alanine Aminotransfer ALT/SGPT 18 U/L (13-56); Albumin, Serum 3.5 g/dL (3.2-5.0); Alkaline Phosphatase 94 U/L (45-117); Cholesterol 133 mg/dL (200); Globulin 3.1 g/dL (2.2-4.2); High Density Lipoprotein 52 mg/dL; Protein, Total 6.6 g/dL (6.4-8.2); Triglycerides 114 mg/dL; Very Low Density Lipoprotein 23 mg/dL (5-40)
== END ==
PROVIDERS: Family Provider Family Medicine; PCP Family Medicine; Referring Provider Internal Medicine Cardiovascular Disease; Visit Provider Internal Medicine Cardiovascular Disease
DX: I10 Essential (primary) hypertension (principal); I48.0 Paroxysmal atrial fibrillation
CPT/HCPCS: 36415; 80061; 80076

== ENCOUNTER → 2018-09-29 10:43 | Outpatient (CLI) | payer MEDICARE, OTHER, SELFPAY ==
[2018-09-13 13:59] VITALS: BMI 28.8
--- NOTE | 2018-09-29 10:46 | ECHOD_ITS ---
Reason For Study: MURMUR Procedure This was a 2D Doppler, Color Flow transthoracic echocardiogram. The study was technically difficult. Exam performed in department. Left Ventricle Normal LV size. Mild concentric left ventricular hypertrophy. Sigmoid septum. Left ventricular systolic function is normal. The estimated ejection fraction is 55 %. Diastolic function is indeterminate. No regional wall motion abnormalities noted. Right Ventricle Normal RV size. Normal systolic function. Atria Normal left atrium. Normal right atrium. No doppler evidence for ASD. Mitral Valve There is no mitral annular calcification. Normal mitral valve. Trivial mitral valve insufficiency. Tricuspid Valve Normal tricuspid valve. Mild eccentric tricuspid valve insufficiency. Right ventricular systolic pressure estimated to be 23 mmHg. Aortic Valve Trisinus/trileaflet aortic valve. Mild focal aortic valve calcification. Aortic sclerosis, no stenosis. Pulmonic Valve The pulmonic valve is not well visualized. Great Vessels Normal sized aortic root. Pericardium/Pleural No pericardial effusion. MMode/2D Measurements & Calculations LVIDd: 4.3 cm IVSd: 1.4 cm LVOT diam: 2.0 cm LVIDs: 2.5 cm LVPWd: 1.4 cm LVOT area: 3.2 cm2 RVDd: 3.6 cm FS: 42.4 % Ao root diam: 3.5 cm LAV(MOD-bp): 43.5 ml Aortic Valve Planimetry: 2.2 cm2 LAV(MOD-bp) Indexed: 22.6 ml/m2 LAV(MOD-sp2): 50.4 ml LAV(MOD-sp4): 33.4 ml LA dimension(2D): 3.0 cm LA A4 area: 14.1 cm2 RA A4 area: 13.4 cm2 Time Measurements MV dec time: 0.27 sec Doppler Measurements & Calculations MV E max kai: 74.8 cm/sec Lat Peak E' Kai: 5.2 cm/sec Med Peak E' Kai: 6.2 cm/sec MV A max kai: 88.0 cm/sec E/E' lat: 14.3 E/E' med: 12.1 MV E/A: 0.85 Ao V2 max: 174.1 cm/sec LV V1 max: 116.6 cm/sec SV(LVOT): 71.5 ml Ao max P.1 mmHg LV V1 max P.4 mmHg Ao V2 mean: 123.1 cm/sec LV V1 mean P.1 mmHg Ao mean P.7 mmHg LV V1 mean: 82.7 cm/sec Ao V2 VTI: 34.5 cm LV V1 VTI: 22.3 cm PRISCILLA(I,D): 2.1 cm2 PRISCILLA(V,D): 2.1 cm2 PA V2 max: 106.9 cm/sec TR max kai: 225.9 cm/sec TR max P.4 mmHg Interpretation Summary The study was technically difficult. Left ventricular systolic function is normal. The estimated ejection fraction is 55 %. Mild concentric left ventricular hypertrophy. Sigmoid septum. Trivial mitral valve insufficiency. Mild eccentric tricuspid valve insufficiency. Aortic sclerosis, no stenosis. Right ventricular systolic pressure estimated to be 23 mmHg. Diastolic function is indeterminate. Ordering Physician: Beka Payan Referring Physician: JORGE LUIS PÉREZ Performed By: Hayley Augustin, HAYLEY, RVT
== END ==
PROVIDERS: Family Provider Family Medicine; PCP Family Medicine; Referring Provider Internal Medicine Cardiovascular Disease; Visit Provider Internal Medicine Cardiovascular Disease
DX: I48.0 Paroxysmal atrial fibrillation (principal); Z79.899 Other long term (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
CPT/HCPCS: 93306

== ENCOUNTER → 2018-11-07 05:51 | Outpatient (CLI) | payer MEDICARE, OTHER, SELFPAY ==
[2018-10-23 13:06] VITALS: BMI 28.3
--- NOTE | 2018-11-07 11:02 | STRESSREP_ITS ---
Stress Test Report Date: 11-07-18 Procedure: Pharmacologic stress nuclear imaging study Indications: Chest pain Consent: Per the patient Procedure: The patient underwent pharmacologic (Regadenoson) evaluation with a peak heart rate of 86 beats per minute (61 %predicted maximal heart rate) and a peak blood pressure of 114/60 mmHg. The baseline ECG demonstrated normal sinus rhythm. The peak pharmacologic ECG demonstrated no obvious ECG changes. There was a rare PVC during recovery. There was no complaint of chest discomfort during pharmacologic infusion or recovery. The examination was discontinued secondary to completion of protocol. Impression: 1. Pharmacologic (Regadenoson) evaluation 2. Peak pharmacologic ECG with no obvious ECG changes. 3. There was a rare PVC during recovery. 4. Nuclear images pending Myocardial perfusion imaging study: Technique: The patient was injected with 11.8 millicuries of technetium 99m Cardiolite and subsequently rest SPECT Cardiolite nuclear imaging was obtained in the horizontal long, vertical long, and short axis views. The patient underwent pharmacologic (Regadenoson) evaluation with a peak heart rate of 86 beats per minute (61 % percent predicted maximal heart rate) and a peak blood pressure of 114/60 mmHg. The patient was injected with 34.4 millicuries of technetium 99m Cardiolite and subsequently stress SPECT Cardiolite nuclear imaging was obtained in the horizontal long, vertical long, and short axis views. A gated Cardiolite study at peak stress was obtained. Interpretation: Rest and stress SPECT Cardiolite nuclear imaging status post realignment, normalization, and attenuation correction demonstrate rest and area of diminished tracer uptake in portions of the distal anterior segments which appears to improve status post stress, however status post stress there is notation of diminished tracer uptake in portions of the apical segments which appears to be somewhat more prominent than rest. There is end systolic thickening and brightening. The gated Cardiolite study demonstrates myocardial thickening and inward wall motion. The reported LVEF is 83 %. Impression: 1. Rest and stress SPECT Cardiolite nuclear imaging demonstrate myocardial perfusion changes at rest which appear to improved status post stress appearing compatible shifting soft tissue attenuation/artifact, however, there is evidence of diminished tracer uptake in portions of the apical segment status post stress being somewhat more prominent than rest with myocardial ischemia not being exc luded. 2. The gated Cardiolite study reports an LVEF of 83 %. This note was generated with [employer]asc[employer] software. It may contain incorrect words, spelling, and punctuation that were not noted in checking the note before signing.
== END ==
PROVIDERS: Family Provider Family Medicine; PCP Family Medicine; Referring Provider Internal Medicine Cardiovascular Disease; Visit Provider Internal Medicine Cardiovascular Disease
DX: R07.9 Chest pain, unspecified (principal)
CPT/HCPCS: 78452; 93017; A9500; A4216; J2785

== ENCOUNTER → 2018-11-09 11:05 | Outpatient (CLI) | payer MEDICARE, OTHER, SELFPAY ==
[2018-10-23 13:06] VITALS: BMI 28.3
[2018-11-09 11:25] LABS: Absolute Neutrophil Count 5.2 X10^3/uL (2.0-7.7); Basophil# 0.04 X10^3/uL; Basophil% 0.5 % (0-1); Eosinophil# 0.18 X10^3/uL; Eosinophils% 2.4 % (0-5); Hematocrit 38.7 % (37-47); Hemoglobin 12.3 g/dl (12.0-15.0); Mean Corp Hgb Conc 31.8 g/gl (32-36); Mean Corpuscular Hgb 30.8 pg (27.0-32.0); Mean Corpuscular Volume 96.8 fL (81-99); Mean Platelet Vol. 9.9 fl (6.2-12.0); Monocyte# 0.55 X10^3/uL; Monocyte% 7.5 % (0-10); Neutrophil # 5.19 X10^3/uL (2.7-7.7); Neutrophil % 70.3 % (47-70); Platelet Count 261 K/mm3 (150-450); RBC Distribution Width CV 13.8 % (11.6-14.6); RBC Distribution Width SD 46.9 fl (35.1-43.9); White Blood Count 7.4 K/mm3 (4.4-11.0)
[2018-11-09 11:26] LABS: POSITIVE COUNT NO; POSITIVE DIFFERENTIAL NO; POSITIVE MORPHOLOGY NO
[2018-11-09 11:50] LABS: Anion Gap 3 (5-15); BUN 11 mg/dL (7-18); BUN/Creat Ratio 16.7 RATIO (10-20); Calcium,Total 8.8 mg/dL (8.5-10.1); Chloride 109 mmol/L (98-107); Creatinine, Serum 0.66 mg/dL (0.55-1.02); EST Glomerular Filtration Rate 92 mL/min (>60); Est Glom Filt Rate - Afr Amer 111 mL/min (>60); Glucose 95 mg/dL (74-106); Potassium 3.9 mmol/L (3.5-5.1); Sodium Level 142 mmol/L (136-145)
== END ==
PROVIDERS: Family Provider Family Medicine; PCP Family Medicine; Referring Provider Internal Medicine Cardiovascular Disease; Visit Provider Internal Medicine Cardiovascular Disease
DX: R07.9 Chest pain, unspecified (principal); I10 Essential (primary) hypertension
CPT/HCPCS: 36415; 80048; 85025

== ENCOUNTER 2018-11-17 06:48 | Day surgery (SDC) | payer MEDICARE, OTHER, SELFPAY ==
[2018-10-23 13:06] VITALS: BMI 28.3
--- NOTE | 2018-11-09 11:30 | RAD_ITS ---
STUDY: X-RAY CHEST REASON FOR EXAM: Female, 78 years old. TECHNIQUE: 2 views COMPARISON: January 24, 2016. FINDINGS: The heart is not enlarged. There is mild tortuosity of the thoracic aorta. Both lung garcia and costophrenic angles are clear. No evidence of consolidation or atelectasis. No pleural effusion or pneumothorax. The visualized bony structures are intact. The trachea is in the midline. RAD/Chest PA and Lateral IMPRESSION: Negative chest for active disease Electronically Signed: Mi Hyatt, at 15:48 EDT Tel , Service support ,
[2018-11-14 15:22] VITALS: BMI 28.3
--- NOTE | 2018-11-17 07:22 | HP.PCM_ITS ---
Problem List (1) Abnormal stress test Status: Acute (2) Chest pain Status: Acute (3) Paroxysmal atrial fibrillation Status: Chronic (4) Essential hypertension Status: Chronic (5) Neuropathy, diabetic Status: Chronic History and Physical Date of Admission: 11/17/18 HPI History of Present Illness Details: This is a 77-year-old white female who appears to be resting comfortably at the moment in no acute distress with a history of paroxysmal atrial fibrillation superimposed upon concerns of hypertension. She states her only concern was that she had an episode, while waiting for information on her son who has an underlying brain carcinoma going through treatment at the [facility], that she developed a left-sided chest discomfort that radiated from her left flank area to her left chest area. She noted it felt somewhat heavy . She took an additional aspirin. Eventually her discomfort dissipated. She does not recall having any other symptoms such as nausea, emesis, diaphoresis, or worsening shortness of breath or dyspnea. She had no palpitations. She had no loss of consciousness. She had an ECG in the office today. She was noted to be in sinus rhythm. She had low voltage QRS in the limb leads. She had poor R wave progression. She recently had a transthoracic echocardiogram performed. The results are as noted below. 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 Accompanied by: Allergies bacitracin [From Neosporin ([id number])] Allergy (Verified 10/23/18 13:07) Rash bacitracin zinc [From Neosporin ([id number])] Allergy (Verified 10/23/18 13:07) Rash codeine Allergy (Verified 10/23/18 13:07) Nausea neomycin sulfate [From Neosporin ([id number])] Allergy (Verified 10/23/18 13:07) Rash nickel Allergy (Verified 10/23/18 13:07) Rash polymyxin B [From Neosporin ([id number])] Allergy (Verified 10/23/18 13:07) Rash sulfamethoxazole [From Bactrim] Adverse Reaction (Verified 10/23/18 13:07) Itching trimethoprim [From Bactrim] Adverse Reaction (Verified 10/23/18 13:07) Itching Medications Biotin 1,000 mg PO DAILY 11/21/14 [History Confirmed 10/23/18] Cyanocobalamin [Vitamin B12] 1,000 mcg PO DAILY@0800 11/21/14 [History Confirmed 10/23/18] Lisinopril [Zestril] 20 mg PO DAILY 11/21/14 [History Confirmed 10/23/18] tramadol 50 mg tablet 50 mg PO QDAY PRN tab 09/08/17 [History Confirmed 10/23/18] ascorbic acid (vitamin C) 500 mg capsule 500 mg PO .QOD cap 09/13/18 [History Confirmed 10/23/18] aspirin 325 mg tablet 325 mg PO DAILY 09/13/18 [History Confirmed 10/23/18] cholecalciferol (vitamin D3) 2,000 unit capsule 2,000 unit PO DAILY 09/13/18 [History Confirmed 10/23/18] gabapentin 300 mg capsule 1,200 mg PO DAILY 30 Days #120 cap 09/13/18 [History Confirmed 10/23/18] linaclotide 145 mcg capsule 145 mcg PO .QOD 60 Days cap 09/13/18 [History Confirmed 10/23/18] linagliptin 5 mg tablet 5 mg PO DAILY 09/13/18 [History Confirmed 10/23/18] magnesium oxide 400 mg (241.3 mg magnesium) tablet 400 mg PO DAILY PRN 30 Days #30 tab 09/13/18 [History Confirmed 10/23/18] metformin 500 mg tablet 500 mg PO BID 09/13/18 [History Confirmed 10/23/18] vitamin B complex tablet 1 tab PO DAILY 09/13/18 [History Confirmed 10/23/18] [facility] Medical History Essential hypertension (Chronic) Neuropathy, diabetic (Chronic) DM2 (diabetes mellitus, type 2) (Chronic) Paroxysmal atrial fibrillation (Chronic) History of hysterectomy (Resolved) History of left heart catheterization (LHC) (Resolved ~12/03/11) Hypertension (Inactive) Surgical History Amputated toe of right foot (Resolved) Deviated septum (Resolved) History of appendectomy (Resolved) History of cholecystectomy (Resolved) History of neck surgery (Resolved) History of tonsillectomy (Resolved) Family History Father No problems noted. Mother No problems noted. Social History Smoking Status: Former smoker alcohol intake: never substance use type: does not use caffeine: No what type of physical activity do you participate in: other details: physical therapy seatbelt use: always do you feel safe at home: Yes ROS Const Const: Negative for fatigue, weakness, frequent falls, excessive sweating, weight gain or weight loss Eyes Eyes: Negative for transient loss of vision, blurry vision or change in vision ENT ENT: Positive for balance problems (ambulates with a cane); negative for dizziness Cardio Chest Pain: No Character: squeezing, other (heaviness) Onset: at rest Location: mid sternal Duration: minutes (2) Palpitations: No Edema: None Muscle aches with walking: None Resp Respiratory: Negative for SOB with activity or SOB at rest GI GI: Negative vomiting or vomiting blood/hematemesis : Negative for hematuria Musc Musc: Positive for muscle aches/ myalgia (Bilat LE knee pain) and balance problems (ambulates with a cane); negative for muscle weakness or joint pain Skin Skin: Negative non-healing lesions or rash Neuro Neuro: Negative for dizziness, lightheadedness, orthostatic symptoms, frequent falls, weakness or blurry vision Arun Hematologic/Lymphatic: Negative for easy bleeding Endo Endo: Negative for fatigue or excessive sweating Psych Psych: Negative for anxiety or depression Allergy Allergy/Immunology: Negative for hives, Negative for rash Cardiology Exam Const Appearance: cooperative, healthy appearing, comfortable, no acute distress, well developed and well groomed Nutritional Appearance: overweight Orientation: alert, awake and oriented x3 Head Head: normal to inspection, normocephalic and atraumatic Ears: hearing grossly normal bilaterally Nose: external nose normal Mouth: moist mucous membranes Teeth and gingiva: fair dentition Eyes Eyelids: eyelids normal Conjunctivae: conjunctivae normal Pupils: PERRL EOM: EOM intact bilaterally Neck Neck: normal visual inspection, full ROM and no JVD Carotids: Negative bruit Neck Mass: Negative Neck mass Chest Chest inspection: normal inspection of the chest, symmetric chest movement and normal respiratory effort Auscultation: Bilateral: Clear to Auscultation Cardio Palpation: normal PMI Rate: regular rate Rhythm: regular rhythm Heart sounds: S1 normal and S2 normal; negative rub, gallop or murmur Murmur: Grade 2/6, harsh, mid systolic, LLSB, LVOT and sternal notch GI GI: normal to inspection, soft and bowel sounds present; negative tender Neuro General: alert, awake, oriented x3 and moves all extremities Skin Skin: no rashes or lesions noted Extremities Pulses: Normal: Right Posterior Tibial Pulse, Left Posterior Tibial Pulse, Right Radial Pulse, Left Radial Pulse Lower Extremity Edema: None: Bilateral Psych Psychological: normal affect Assessment & Plan 1. Paroxysmal atrial fibrillation I48.0 Plan At the present time she remains in sinus rhythm. She will continue her current medical management and follow-up. Orders Orders: 12 Lead EKG performed by [facility] Today 2. Essential hypertension I10 Plan Her blood pressure appears to be well controlled at the moment. Again she will continue medical therapy and follow-up. Orders Orders: 12 Lead EKG performed by [facility] Today 3. Chest pain, unspecified R07.9 Plan She had chest discomfort. The etiology is uncertain. Her cardiovascular case was reviewed. At the present time she will undergo further evaluation with a pharmacologic stress nuclear imaging study that can be compared to her previous study from before to see whether or not she warrants further cardiac diagnostic studies and/or therapy. Orders Orders: 12 Lead EKG performed by [facility] Today Nuclear Stress Test - Chemical Today 4. 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 Plan Detail Additional Comments Thank you for allowing me to participate in the care of your patient. Please don't hesitate to call if any issues arise. This note was generated using a voice recognition system and there may be incorrect words, spelling or punctuation that were not noted when reviewing the office note prior to saving. Follow Up 11 Months (PFM: as scheduled) I have examined the patient the following changes are noted: Stress Test Report Date: 11-07-18 Procedure: Pharmacologic stress nuclear imaging study Indications: Chest pain Consent: Per the patient Procedure: The patient underwent pharmacologic (Regadenoson) evaluation with a peak heart rate of 86 beats per minute (61 %predicted maximal heart rate) and a peak blood pressure of 114/60 mmHg. The baseline ECG demonstrated normal sinus rhythm. The peak pharmacologic ECG demonstrated no obvious ECG changes. There was a rare PVC during recovery. There was no complaint of chest discomfort during pharmacologic infusion or recovery. The examination was discontinued secondary to completion of protocol. Impression: 1. Pharmacologic (Regadenoson) evaluation 2. Peak pharmacologic ECG with no obvious ECG changes. 3. There was a rare PVC during recovery. 4. Nuclear images pending Myocardial perfusion imaging study: Technique: The patient was injected with 11.8 millicuries of technetium 99m Cardiolite and subsequently rest SPECT Cardiolite nuclear imaging was obtained in the horizontal long, vertical long, and short axis views. The patient underwent pharmacologic (Regadenoson) evaluation with a peak heart rate of 86 beats per minute (61 % percent predicted maximal heart rate) and a peak blood pressure of 114/60 mmHg. The patient was injected with 34.4 millicuries of technetium 99m Cardiolite and subsequently stress SPECT Cardiolite nuclear imaging was obtained in the horizontal long, vertical long, and short axis views. A gated Cardiolite study at peak stress was obtained. Interpretation: Rest and stress SPECT Cardiolite nuclear imaging status post realignment, normalization, and attenuation correction demonstrate rest and area of diminished tracer uptake in portions of the distal anterior segments which appears to improve status post stress, however status post stress there is notation of diminished tracer uptake in portions of the apical segments which appears to be somewhat more prominent than rest. There is end systolic thickening and brightening. The gated Cardiolite study demonstrates myocardial thickening and inward wall motion. The reported LVEF is 83 %. Impression: 1. Rest and stress SPECT Cardiolite nuclear imaging demonstrate myocardial perfusion changes at rest which appear to improved status post stress appearing compatible shifting soft tissue attenuation/artifact, however, there is evidence of diminished tracer uptake in portions of the apical segment status post stress being somewhat more prominent than rest with myocardial ischemia not being excluded. 2. The gated Cardiolite study reports an LVEF of 83 %. Based upon the above-noted changes the patient has been recommended for further evaluation with diagnostic cardiac catheterization. The procedure and risks were discussed with her. She was agreeable to this approach. This procedure is scheduled for 11-17-18 at [facility].
--- NOTE | 2018-11-17 09:35 | CL.D_ITS ---
Patient Name: MAGDY MIRAMONTES Study Date: 11/17/2018 Performing: Beka Payan MD Ht: 67.32 inches 171 cm : 1940 Wt: 182.98 lbs 83 kg Age: 78 Gender: female BSA: 1.95 PROCEDURE(S) PERFORMED IY05-JVL/COR/LV CLINICAL PROFILE AND INDICATIONS Indications: Suspected CAD Heart Failure: None Stress/Imaging Date: 11/07/2018 Angina Classification Anginal Classification w/in 2 Weeks: CCS IV CAD Presentations: Other: Chest Pain CONCLUSIONS Elevated Left Ventricular End Diastolic Pressure Normal LV size, wall motion,and systolic function LVEF: by LV gram 55 % Consider left ventricular hypertrophy RECOMMENDATIONS Risk factor modification Medical therapy DESCRIPTION OF PROCEDURE The patient arrived to the procedure lab. The risks and benefits of the procedure as well as a full d escription of our services here and current unavailability of surgical backup were fully explained to the patient and/or their significant other prior to the catheterization. The Timeout was completed, verifying the correct patient and procedure. The patient's procedural site was prepped and draped in the usual fashion. Local anesthetic was given subcutaneously to right radial region with Lidocaine 2% . Using a modified Seldinger technique, Left Coronary Artery selective angiography was performed in multiple views using a 5 Fr. 4.0 Winfall catheter. Right Coronary Artery selective angiography was the n performed in multiple views using a 5 Fr. JR 4 catheter. Left Ventriculography was performed in MARCELO projection using a 5 Fr. Pigtail catheter. LV to AO pullback pressures were then recorded.The arteri al sheath was pulled and a TR Band was applied for hemostasis CORONARY ANGIOGRAPHY DOMINANCE: Right Dominant LEFT HEART ASSESSMENT Left Ventricular Ejection Fraction: by LV Gram 55 % Normal LV wall motion Elevated Left Ventricular End Diastolic Pressure LVEDP: 330 mmHg LEFT MAIN: Angiographically normal LEFT ANTERIOR DESCENDING ARTERY: PROX LAD: Smooth: Eccentric: 10 - 25 % stenosis CIRCUMFLEX ARTERY: Angiographically normal RAMUS: Angiographically normal RIGHT CORONARY ARTERY: PROX RCA: Mild luminal irregularities VALVE FINDINGS: Normal Aortic Valve function Normal Mitral Valve function AORTIC ROOT: Angiographically normal COMPLICATIONS No Complications PROCEDURE MEDICATIONS Versed 1 mg IV Fentanyl 50 mcg IV Oxygen: 2 L/min via nasal cannula SUMMARY OF HEMODYNAMIC DATA Time AIR REST ECG 07:29:26 AO 132/76 (101) SA 08:40:18 LV 146/2, 28 09:02:51 LV 149/1, 30 09:02:58 LV 145/1, 21 09:04:24 LV 139/2, 23 09:04:31 LVp 136/0, 22 09:04:37 AOp 132/57 (87) 09:04:42 Signed By Beka Payan MD On 11/17/2018 09:34:09 Beka Payan MD
== END 2018-11-17 11:45 | disposition home or self-care (01) ==
LOC: CLSP 06:52
PROVIDERS: Family Provider Family Medicine; PCP Family Medicine; Referring Provider Internal Medicine Cardiovascular Disease; Visit Provider Internal Medicine Cardiovascular Disease
DX: I48.0 Paroxysmal atrial fibrillation (principal); I10 Essential (primary) hypertension; R07.9 Chest pain, unspecified; I49.3 Ventricular premature depolarization; E11.40 Type 2 diabetes mellitus with diabetic neuropathy, unspecified; Z87.891 Personal history of nicotine dependence; Z88.1 Allergy status to other antibiotic agents; Z79.899 Other long term (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; Z88.2 Allergy status to sulfonamides
CPT/HCPCS: 71046; 93458; 99152; 99153; J7040; Q9967; C1769; C1894

== ENCOUNTER → 2018-11-20 08:07 | Outpatient (CLI) | payer MEDICARE, OTHER, SELFPAY ==
[2018-11-14 15:22] VITALS: BMI 28.3
[2018-11-20 08:48] LABS: Anion Gap 6 (5-15); BUN 15 mg/dL (7-18); BUN/Creat Ratio 20.4 RATIO (10-20); Chloride 109 mmol/L (98-107); Creatinine, Serum 0.74 mg/dL (0.55-1.02); EST Glomerular Filtration Rate 81 mL/min (>60); Est Glom Filt Rate - Afr Amer 98 mL/min (>60); Glucose 101 mg/dL (74-106); Potassium 4.2 mmol/L (3.5-5.1); Sodium Level 143 mmol/L (136-145)
== END ==
PROVIDERS: Family Provider Family Medicine; PCP Family Medicine; Referring Provider Internal Medicine Cardiovascular Disease; Visit Provider Internal Medicine Cardiovascular Disease
DX: I48.0 Paroxysmal atrial fibrillation (principal); I10 Essential (primary) hypertension
CPT/HCPCS: 36415; 80048

== ENCOUNTER → 2019-02-13 08:37 | Outpatient (CLI) | payer MEDICARE, OTHER, SELFPAY ==
[2018-11-14 15:22] VITALS: BMI 28.3
[2019-02-13 12:41] LABS: Absolute Lymphocyte Count 1.75 X10^3/uL (0.83-4.51); Absolute Neutrophil Count 4.9 X10^3/uL (2.0-7.7); Basophil# 0.07 X10^3/uL; Basophil% 0.9 % (0-1); Eosinophil# 0.25 X10^3/uL; Eosinophils% 3.3 % (0-5); Hematocrit 40.9 % (37-47); Hemoglobin 12.7 g/dL (12.0-15.0); Lymphocyte # 1.75 X10^3/ul (4.0); Lymphocyte % 23.4 % (19-41); Mean Corp Hgb Conc 31.1 g/dL (32-36); Mean Corpuscular Hgb 31.1 pg (27.0-32.0); Mean Platelet Vol. 10.3 fl (6.2-12.0); Microalbumin,Random Urine 25.2 mg/L (NO RANGE EST.); Microalbumin:Creatinine Ratio 26.5 mg/g CRE (<30 mg/g CRE); Monocyte# 0.51 X10^3/uL; Monocyte% 6.8 % (0-10); NRBC Flagged by Analyzer 0 % (0-5); Neutrophil # 4.87 X10^3/uL (2.7-7.7); Neutrophil % 65.3 % (47-70); Platelet Count 267 K/mm3 (150-450); RBC Distribution Width CV 13.4 % (11.6-14.6); RBC Distribution Width SD 49.3 fl (35.1-43.9); Red Blood Count 4.09 M/mm3 (4.2-5.4); White Blood Count 7.5 K/mm3 (4.4-11.0)
[2019-02-13 12:55] LABS: ALB/GLOB Ratio 1.2 RATIO (0.9-2.4); AST(SGOT) 12 U/L (15-37); Alanine Aminotransfer ALT/SGPT 19 U/L (13-56); Albumin, Serum 3.5 g/dL (3.2-5.0); Alkaline Phosphatase 97 U/L (45-117); Anion Gap 9 (5-15); BUN 13 mg/dL (7-18); BUN/Creat Ratio 19.3 RATIO (10-20); Chloride 110 mmol/L (98-107); Creatinine, Serum 0.67 mg/dL (0.55-1.02); EST Glomerular Filtration Rate 90 mL/min (>60); Est Glom Filt Rate - Afr Amer 108 mL/min (>60); Glucose 92 mg/dL (74-106); Hemoglobin A1c 5.8 % (4.2-6.3); Potassium 4.1 mmol/L (3.5-5.1); Protein, Total 6.5 g/dL (6.4-8.2); Sodium Level 145 mmol/L (136-145)
== END ==
PROVIDERS: Family Provider Family Medicine; PCP Family Medicine; Visit Provider Family Medicine
DX: E11.9 Type 2 diabetes mellitus without complications (principal); I48.0 Paroxysmal atrial fibrillation
CPT/HCPCS: 36415; 80053; 82043; 82570; 83036; 85025

== ENCOUNTER → 2019-09-05 08:37 | Outpatient (CLI) | payer MEDICARE, OTHER, SELFPAY ==
[2018-11-14 15:22] VITALS: BMI 28.3
[2019-09-05 09:13] LABS: Absolute Lymphocyte Count 1.72 X10^3/uL (0.83-4.51); Absolute Neutrophil Count 5.9 X10^3/uL (2.0-7.7); Basophil# 0.08 X10^3/uL; Basophil% 0.9 % (0-1); Eosinophil# 0.27 X10^3/uL; Eosinophils% 3.2 % (0-5); Hematocrit 41.1 % (37-47); Hemoglobin 13.1 g/dL (12.0-15.0); Lymphocyte # 1.72 X10^3/ul (4.0); Lymphocyte % 20.2 % (19-41); Mean Corp Hgb Conc 31.9 g/dL (32-36); Mean Corpuscular Hgb 30.8 pg (27.0-32.0); Mean Corpuscular Volume 96.7 fL (81-99); Mean Platelet Vol. 9.9 fl (6.2-12.0); Monocyte# 0.54 X10^3/uL; Monocyte% 6.3 % (0-10); NRBC Flagged by Analyzer 0 % (0-5); Neutrophil # 5.86 X10^3/uL (2.7-7.7); Neutrophil % 68.9 % (47-70); Platelet Count 276 K/mm3 (150-450); RBC Distribution Width CV 13.1 % (11.6-14.6); RBC Distribution Width SD 46.9 fl (35.1-43.9); Red Blood Count 4.25 M/mm3 (4.2-5.4); White Blood Count 8.5 K/mm3 (4.4-11.0)
[2019-09-05 09:30] LABS: ALB/GLOB Ratio 1.1 RATIO (0.9-2.4); AST(SGOT) 18 U/L (15-37); Alanine Aminotransfer ALT/SGPT 22 U/L (13-56); Albumin, Serum 3.6 g/dL (3.2-5.0); Alkaline Phosphatase 114 U/L (45-117); Anion Gap 5 (5-15); BUN 14 mg/dL (7-18); BUN/Creat Ratio 18.7 RATIO (10-20); Bilirubin, Direct 0.14 mg/dL (0.00-0.30); Calcium,Total 8.9 mg/dL (8.5-10.1); Chloride 108 mmol/L (98-107); Cholesterol 145 mg/dL (200); Creatinine, Serum 0.75 mg/dL (0.55-1.02); EST Glomerular Filtration Rate 79 mL/min (>60); Est Glom Filt Rate - Afr Amer 96 mL/min (>60); Globulin 3.3 g/dL (2.2-4.2); Glucose 100 mg/dL (74-106); High Density Lipoprotein 54 mg/dL; Potassium 4.2 mmol/L (3.5-5.1); Protein, Total 6.9 g/dL (6.4-8.2); Sodium Level 142 mmol/L (136-145); Triglycerides 94 mg/dL; Very Low Density Lipoprotein 19 mg/dL (5-40)
== END ==
PROVIDERS: Internal Medicine Cardiovascular Disease; PCP Family Medicine; Referring Provider Family Medicine; Visit Provider Family Medicine
DX: E11.9 Type 2 diabetes mellitus without complications (principal); I10 Essential (primary) hypertension; Z79.899 Other long term (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
CPT/HCPCS: 36415; 80053; 80061; 82248; 85025

== ENCOUNTER → 2019-12-13 14:26 | Outpatient (CLI) | payer MEDICARE, OTHER, SELFPAY ==
[2019-09-24 13:16] VITALS: BMI 27.8
[2019-12-13 18:05] LABS: Absolute Lymphocyte Count 2.19 X10^3/uL (0.83-4.51); Absolute Neutrophil Count 5.4 X10^3/uL (2.0-7.7); Basophil# 0.07 X10^3/uL; Basophil% 0.8 % (0-1); Eosinophil# 0.25 X10^3/uL; Eosinophils% 2.9 % (0-5); Hematocrit 41.7 % (37-47); Hemoglobin 13.3 g/dL (12.0-15.0); Lymphocyte # 2.19 X10^3/ul (4.0); Lymphocyte % 25.8 % (19-41); Mean Corp Hgb Conc 31.9 g/dL (32-36); Mean Corpuscular Hgb 31.7 pg (27.0-32.0); Mean Corpuscular Volume 99.5 fL (81-99); Mean Platelet Vol. 10.5 fl (6.2-12.0); Monocyte# 0.55 X10^3/uL; Monocyte% 6.5 % (0-10); NRBC Flagged by Analyzer 0 % (0-5); Neutrophil # 5.39 X10^3/uL (2.7-7.7); Neutrophil % 63.6 % (47-70); Platelet Count 273 K/mm3 (150-450); RBC Distribution Width CV 13.2 % (11.6-14.6); RBC Distribution Width SD 47.8 fl (35.1-43.9); Red Blood Count 4.19 M/mm3 (4.2-5.4); White Blood Count 8.5 K/mm3 (4.4-11.0)
[2019-12-13 18:09] LABS: ALB/GLOB Ratio 1.1 RATIO (0.9-2.4); AST(SGOT) 14 U/L (15-37); Alanine Aminotransfer ALT/SGPT 25 U/L (13-56); Albumin, Serum 3.6 g/dL (3.2-5.0); Alkaline Phosphatase 102 U/L (45-117); Anion Gap 4 (5-15); BUN 14 mg/dL (7-18); BUN/Creat Ratio 20.7 RATIO (10-20); Calcium,Total 8.8 mg/dL (8.5-10.1); Chloride 105 mmol/L (98-107); Creatinine, Serum 0.68 mg/dL (0.55-1.02); EST Glomerular Filtration Rate 89 mL/min (>60); Est Glom Filt Rate - Afr Amer 107 mL/min (>60); Globulin 3.3 g/dL (2.2-4.2); Glucose 82 mg/dL (74-106); Potassium 3.7 mmol/L (3.5-5.1); Protein, Total 6.9 g/dL (6.4-8.2); Sodium Level 138 mmol/L (136-145)
== END ==
PROVIDERS: PCP Family Medicine; Visit Provider Family Medicine
DX: E11.9 Type 2 diabetes mellitus without complications (principal); I10 Essential (primary) hypertension
CPT/HCPCS: 36415; 80053; 85025

== ENCOUNTER → 2019-12-14 10:57 | Outpatient (CLI) | payer MEDICARE, OTHER, SELFPAY ==
[2019-09-24 13:16] VITALS: BMI 27.8
--- NOTE | 2019-12-14 11:05 | RAD_ITS ---
STUDY: X-RAY - LEFT CLAVICLE REASON FOR EXAM: Female, 79 years old. PALPABLE/VISIBLE LUMP AT MEDIAL END OF LEFT CLAVICLE, NOTICED 2 DAYS AGO, NO INJURY, TENDERNESS TO TOUCH TECHNIQUE: 2 view(s) of the clavicle. COMPARISON: None. FINDINGS: Normal clavicle. There is degenerative arthrosis of the acromioclavicular joint without inferior osseous prominence. Normal visualized sternoclavicular articulation. Normal visualized pulmonary apex. RAD/Clavicle IMPRESSION: Normal appearance of the clavicle. 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 The sternoclavicular joint appears unremarkable and normally aligned on plain radiography. This is a complicated area to evaluate with plain radiography as there is overlapping of spinal elements and displacement in the horizontal plane is difficult. CT exam is more useful as it is a 3-dimensional approach. Electronically Signed: Shelbi Scott MD at 18:21 EDT , Service support ,
== END ==
PROVIDERS: PCP Family Medicine; Referring Provider Family Medicine; Visit Provider Family Medicine
DX: Q74.0 Other congenital malformations of upper limb(s), including shoulder girdle (principal)
CPT/HCPCS: 73000

== ENCOUNTER → 2019-12-26 12:53 | Outpatient (CLI) | payer MEDICARE, OTHER, SELFPAY ==
[2019-09-24 13:16] VITALS: BMI 27.8
--- NOTE | 2019-12-26 12:55 | CT_ITS ---
STUDY: CT CHEST WITHOUT CONTRAST REASON FOR EXAM: Female, 79 years old. LT CLAVICLE ENLARGEMENT- AOI MARKED WITH BB, NOTICED BUMP IN NOVEMBER, PREV SMOKER, DB, HTN RADIATION DOSAGE (If Supplied By Facility): CTDIvol = ( 14.31 ) mGy, DLP = ( 536.52 ) mGycm TECHNIQUE: Transaxial imaging was performed without the administration of intravenous contrast material. Multiplanar coronal and sagittal images were reformatted. Individualized dose optimization techniques were used for this CT. COMPARISON: None. FINDINGS: Small benign-appearing bilateral axillary lymph nodes. There is prominence of the left sternoclavicular junction with the degenerative changes and spur formation.. This corresponds to the palpable abnormality. The lungs are normal. There is no demonstrated pleural abnormality. There are calcifications of the coronary arteries. There are multiple small lymph nodes within the mediastinum, which are normal in size and morphology most compatible with reactive lymph hyperplasia. Normal hilar regions. Normal unenhanced pulmonary arteries. There is atherosclerotic calcification of the aortic arch with tortuosity and elongation of the aortic arch and descending thoracic aorta. There are multi-level degenerative changes of the thoracic spine. There is no demonstrated abnormality of the visualized upper abdomen. CT/Chest without Contrast IMPRESSION: Prominence of the left sternal clavicular junction with degenerative changes and spur formation. This corresponds to the palpable abnormality. Electronically Signed: Amol Hannon, at 14:06 EDT , Service support ,
== END ==
PROVIDERS: PCP Family Medicine; Referring Provider Family Medicine; Visit Provider Family Medicine
DX: M89.312 Hypertrophy of bone, left shoulder (principal)
CPT/HCPCS: 71250

== ENCOUNTER → 2020-03-10 08:21 | Outpatient (CLI) | payer MEDICARE, OTHER, SELFPAY ==
[2019-09-24 13:16] VITALS: BMI 27.8
[2020-03-10 10:12] LABS: AST(SGOT) 15 U/L (15-37); Alanine Aminotransfer ALT/SGPT 24 U/L (13-56); Albumin, Serum 3.6 g/dL (3.2-5.0); Alkaline Phosphatase 106 U/L (45-117); Bilirubin, Direct 0.14 mg/dL (0.00-0.30); Cholesterol 152 mg/dL (200); Globulin 3.4 g/dL (2.2-4.2); High Density Lipoprotein 59 mg/dL; Thyroid Stim Hormone (TSH) 1.45 uIU/mL (0.358-3.74); Triglycerides 79 mg/dL; Very Low Density Lipoprotein 16 mg/dL (5-40)
== END ==
PROVIDERS: PCP Family Medicine; Referring Provider Internal Medicine Cardiovascular Disease; Visit Provider Internal Medicine Cardiovascular Disease
DX: I48.0 Paroxysmal atrial fibrillation (principal); E11.9 Type 2 diabetes mellitus without complications; I10 Essential (primary) hypertension; Z79.899 Other long term (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
CPT/HCPCS: 36415; 80061; 80076; 84443

== ENCOUNTER 2020-06-12 12:47 | Outpatient (RCR) | payer MEDICARE, OTHER, SELFPAY ==
[2019-09-24 13:16] VITALS: BMI 27.8
== END 2020-06-12 23:59 ==
LOC: IMMUN 12:47
PROVIDERS: PCP Family Medicine; Visit Provider Family Medicine
DX: Z23 Encounter for immunization (principal)
CPT/HCPCS: 0011A; 0012A; 91301

== ENCOUNTER → 2020-09-23 09:03 | Outpatient (CLI) | payer MEDICARE, OTHER, SELFPAY ==
[2020-09-22 14:47] VITALS: BMI 29.5
[2020-09-23 10:15] LABS: AST(SGOT) 13 U/L (15-37); Alanine Aminotransfer ALT/SGPT 27 U/L (13-56); Albumin, Serum 3.6 g/dL (3.2-5.0); Alkaline Phosphatase 113 U/L (45-117); Bilirubin, Direct 0.25 mg/dL (0.00-0.30); Cholesterol 139 mg/dL (200); Globulin 3.5 g/dL (2.2-4.2); High Density Lipoprotein 69 mg/dL; Protein, Total 7.1 g/dL (6.4-8.2); Triglycerides 88 mg/dL; Very Low Density Lipoprotein 18 mg/dL (5-40)
== END ==
PROVIDERS: PCP Family Medicine; Referring Provider Internal Medicine Cardiovascular Disease; Visit Provider Internal Medicine Cardiovascular Disease
DX: E78.00 Pure hypercholesterolemia, unspecified (principal)
CPT/HCPCS: 36415; 80061; 80076

== ENCOUNTER → 2020-09-26 08:52 | Outpatient (CLI) | payer MEDICARE, OTHER, SELFPAY ==
[2020-09-22 14:47] VITALS: BMI 29.5
[2020-09-26 09:26] LABS: Absolute Lymphocyte Count 2.47 X10^3/uL (0.83-4.51); Absolute Neutrophil Count 10.9 X10^3/uL (2.0-7.7); Basophil# 0.03 X10^3/uL; Basophil% 0.2 % (0-1); Eosinophil# 0.04 X10^3/uL; Eosinophils% 0.3 % (0-5); Hematocrit 47.8 % (37-47); Hemoglobin 14.9 g/dL (12.0-15.0); Lymphocyte # 2.47 X10^3/ul (0.83-4.51); Lymphocyte % 16.8 % (19-41); Mean Corp Hgb Conc 31.2 g/dL (32-36); Mean Corpuscular Hgb 30.7 pg (27.0-32.0); Mean Corpuscular Volume 98.6 fL (81-99); Mean Platelet Vol. 9.7 fl (6.2-12.0); Monocyte# 1.12 X10^3/uL; Monocyte% 7.6 % (0-10); NRBC Flagged by Analyzer 0 % (0-5); Neutrophil # 10.93 X10^3/uL (2.7-7.7); Neutrophil % 74.4 % (47-70); Platelet Count 351 K/mm3 (150-450); RBC Distribution Width CV 13.5 % (11.6-14.6); RBC Distribution Width SD 49.3 fl (35.1-43.9); Red Blood Count 4.85 M/mm3 (4.2-5.4); White Blood Count 14.7 K/mm3 (4.4-11.0)
[2020-09-26 10:19] LABS: Anion Gap 0 (5-15); BUN 26 mg/dL (7-18); BUN/Creat Ratio 34.2 RATIO (10-20); Calcium,Total 9.6 mg/dL (8.5-10.1); Chloride 104 mmol/L (98-107); Creatinine, Serum 0.76 mg/dL (0.55-1.02); EST Glomerular Filtration Rate 77 mL/min (>60); Est Glom Filt Rate - Afr Amer 94 mL/min (>60); Glucose 107 mg/dL (74-106); Sodium Level 137 mmol/L (136-145); Thyroid Stim Hormone (TSH) 1.96 uIU/mL (0.358-3.74)
== END ==
PROVIDERS: PCP Family Medicine; Referring Provider Family Medicine; Visit Provider Family Medicine
DX: E11.9 Type 2 diabetes mellitus without complications (principal); E03.9 Hypothyroidism, unspecified; I10 Essential (primary) hypertension; L74.9 Eccrine sweat disorder, unspecified
CPT/HCPCS: 36415; 80048; 84443; 85025

== ENCOUNTER → 2020-10-01 09:49 | Outpatient (CLI) | payer MEDICARE, OTHER, SELFPAY ==
[2020-09-22 14:47] VITALS: BMI 29.5
--- NOTE | 2020-10-01 09:53 | RAD_ITS ---
STUDY: X-RAY CHEST REASON FOR EXAM: Female, 79 years old. Fatigue, cough TECHNIQUE: PA and lateral views of the chest. COMPARISON: 2018 FINDINGS: The lungs are clear and expanded. There is no demonstrated pleural abnormality. Normal size heart. Normal mediastinum and saad. Normal visualized pulmonary arteries. Normal visualized aortic arch and descending thoracic aorta. There are diffuse degenerative changes of the visualized thoracic spine. There is degenerative osteoarthritis of the bilateral shoulders. There is no demonstrated abnormality of the visualized soft tissue structures of the upper abdomen. RAD/Chest PA and Lateral IMPRESSION: No acute pulmonary process Electronically Signed: Ervin Morales MD at 10:36 EDT , Service support ,
== END ==
PROVIDERS: PCP Family Medicine; Referring Provider Family Medicine; Visit Provider Family Medicine
DX: R05 Cough (principal)
CPT/HCPCS: 71046

== ENCOUNTER → 2021-01-27 12:59 | Outpatient (CLI) | payer MEDICARE, OTHER, SELFPAY ==
[2020-09-22 14:47] VITALS: BMI 29.5
--- NOTE | 2021-01-27 13:31 | CT_ITS ---
STUDY: CT SCAN LOWER EXTREMITY RIGHT REASON FOR EXAM: Female, 80 years old. KNEE PAIN/OSTEOARTHRITIS RIGHT KNEE -- HAVING CXR FIRST. [facility] protocol. RADIATION DOSAGE (If Supplied By Facility): CTDIvol = ( 18.76 ) mGy, DLP = ( 1197.65 ) mGycm. Individualized dose optimization techniques were used for this CT.? TECHNIQUE: Multiple axial tomographic images of the right lower extremity were obtained without intravenous contrast administration. Sagittal and coronal reconstructions were obtained as well. COMPARISON: None. FINDINGS: Imaging of the right hip joint was obtained. Mild degree of joint space narrowing. There is evidence of a spurring along the superior lateral aspect of the right acetabulum. Imaging of the knee joint was obtained. Moderate degree of joint space narrowing involving the lateral compartment of the knee joint with the degenerative spurs along the distal lateral femoral condyle and lateral tibial plateau. Mild degree of joint space narrowing along the medial compartment of the knee joint. Moderate degree of joint space time of the patellofemoral joint with degenerative spur formation. There is evidence of a 2 adjacent bony densities seen in the inferior aspect of the knee joint posteriorly suggestive of loose joint mice. These measure 1.6 cm. Imaging of the ankle joint was obtained. No significant abnormality is seen. CT/Extremity Lower without Contra IMPRESSION: Degenerative changes of the knee joint as described. Electronically Signed: Amol Hannon MD at 15:10 EDT , Service support ,
== END ==
PROVIDERS: PCP Family Medicine; Referring Provider Orthopaedic Surgery; Visit Provider Orthopaedic Surgery
DX: M25.561 Pain in right knee (principal); G89.29 Other chronic pain
CPT/HCPCS: 73700

== ENCOUNTER → 2021-01-29 09:23 | Outpatient (CLI) | payer MEDICARE, OTHER, SELFPAY | PROVIDERS: PCP Family Medicine; Visit Provider Family Medicine | DX: R35.0 Frequency of micturition (principal) | CPT/HCPCS: 87086; 87088 ==

== ENCOUNTER 2021-02-09 11:35 | Observation (INO) | payer MEDICARE, OTHER, SELFPAY ==
[2020-09-22 14:47] VITALS: BMI 29.5
--- NOTE | 2021-01-27 13:18 | EKG12_ITS ---
Test Reason : PRE OP Blood Pressure : / mmHG Vent. Rate : 072 BPM Atrial Rate : 072 BPM P-R Int : 224 ms QRS Dur : 088 ms QT Int : 368 ms P-R-T Axes : 060 048 067 degrees QTc Int : 402 ms Sinus rhythm with 1st degree A-V block with occasional Premature ventricular complexes Low voltage QRS Septal infarct , age undetermined Abnormal ECG Confirmed by PRAKASH LYNN, LISA ([id number]), movie editor MAMADOU TROY ([id number]) on 01/28/2021 10:41:14 AM Referred By: Mehrdad Bone Confirmed By:LISA RANDALL MD
[2021-01-27 13:26] LABS: Absolute Lymphocyte Count 1.79 X10^3/uL (0.83-4.51); Absolute Neutrophil Count 5.2 X10^3/uL (2.0-7.7); Basophil# 0.05 X10^3/uL; Basophil% 0.6 % (0-1); Eosinophil# 0.36 X10^3/uL; Eosinophils% 4.5 % (0-5); Hemoglobin 12.7 g/dL (12.0-15.0); Lymphocyte # 1.79 X10^3/ul (0.83-4.51); Lymphocyte % 22.5 % (19-41); Mean Corpuscular Hgb 32.1 pg (27.0-32.0); Mean Corpuscular Volume 103.5 fL (81-99); Mean Platelet Vol. 9.6 fl (6.2-12.0); Monocyte# 0.58 X10^3/uL; Monocyte% 7.3 % (0-10); NRBC Flagged by Analyzer 0 % (0-5); Neutrophil # 5.17 X10^3/uL (2.7-7.7); Neutrophil % 64.8 % (47-70); Platelet Count 274 K/mm3 (150-450); RBC Distribution Width CV 13.3 % (11.6-14.6); RBC Distribution Width SD 51.3 fl (35.1-43.9); Red Blood Count 3.96 M/mm3 (4.2-5.4)
--- NOTE | 2021-01-27 13:35 | RAD_ITS ---
STUDY: X-RAY CHEST REASON FOR EXAM: Female, 80 years old. Preop for pelvic surgery TECHNIQUE: PA and lateral views of the chest. COMPARISON: None. FINDINGS: The lungs are clear and expanded. There is no demonstrated pleural abnormality. Normal size heart. Normal mediastinum and saad. Normal visualized pulmonary arteries. There is atherosclerotic calcification of the aortic arch with tortuosity. There are diffuse degenerative changes of the visualized thoracic spine. There is degenerative osteoarthritis of the bilateral shoulders. There is no demonstrated abnormality of the visualized soft tissue structures of the upper abdomen. RAD/Chest PA and Lateral IMPRESSION: No acute pulmonary process Electronically Signed: Ervin Morales MD at 17:06 EDT , Service support ,
[2021-01-27 13:51] LABS: Magnesium 2.4 mg/dL (1.6-2.6)
[2021-01-27 13:56] LABS: Anion Gap 4 (5-15); BUN 16 mg/dL (7-18); BUN/Creat Ratio 29.1 RATIO (10-20); Calcium,Total 9.3 mg/dL (8.5-10.1); Chloride 107 mmol/L (98-107); Creatinine, Serum 0.55 mg/dL (0.55-1.02); EST Glomerular Filtration Rate 113 mL/min (>60); Est Glom Filt Rate - Afr Amer 136 mL/min (>60); Glucose 97 mg/dL (74-106); Sodium Level 140 mmol/L (136-145)
[2021-02-09] VITALS (12 sets, daily range): BP systolic 119–145; BP diastolic 59–77; PULSE 58–97; RESP 16–18; TEMP 36.1–36.7; O2SAT 93–99; BMI 31.4
--- NOTE | 2021-02-09 | KNEE_PTH ---
PATIENT: MAGDY MIRAMONTES LOC: MS2 U#:[id number] AGE/SX: 80/F ROOM: [facility] RE02/09/[address]: Dr. Mehrdad Bone DO : 1940 BED: 1 DIS: 02/10/2021 SPEC #: [id number] RECD: 02/09/21 13:13 STATUS: DONNA REGerman #: [id number] ABHISHEK: 02/09/21 00:[address]: Mehrdad Bone DEPT: SURGICAL PATHOLOGY RECD BY: Wan Palmer ENTERED: 02/09/21 13:13 SP TYPE: TOTAL KNEE OTHR DR: Dr. Nahomy Bettencourt MD Tissues: Knee, NOS Procedures: Decalcification bone/plaque Surgery Specimen Level IV HEADER OPERATION: ERAS, total right knee replacement robotic arm assist PRE-OP DIAGNOSIS: Grade 4 osteoarthritis of right knee TISSUE SUBMITTED: Bone and tissue right knee MICROSCOPIC DIAGNOSIS Bone and soft tissue, right knee, total knee replacement/resection: Pieces of bone with degenerative osteoarthritic changes. Fibroadipose tissue, fibroconnective tissue and reactive synovial tissue. STEVIE:kyle 02/12/2021 MICROSCOPIC DESCRIPTION Slides are reviewed. GROSS DESCRIPTION Received is one container designated bone and soft tissue right knee. The specimen consists of multiple fragments of ennis-yellow bone measuring in aggregate 15 x 10 x 2 cm. Also in the specimen container are multiple fragments of yellow-white soft tissue measuring in aggregate 7 x 7 x 1 cm. A number of bony fragments contain articular surfaces consistent with tibial plateau and femoral condyle and displaying prominent osteophyte formation, eburnation, and bone erosion. Heat Treat Technician sections are submitted in two cassettes as follows: 1 - soft tissue, 2 - bone after decalcification. / AM:kyle 02/09/21 TC:5 [facility]: [id number], [id number]
[2021-02-09] MEDS: Gabapentin 600 MG Tablet PO ×3 (05:30→22:40)
[2021-02-09] MEDS: Acetaminophen 500 MG Tablet 1000 MG PO ×3 (06:20→22:41)
[2021-02-09] MEDS: Lactated Ringers 1,000 ML 100 ML IV ×2 (06:22→15:55)
[2021-02-09] MEDS: Insulin Lispro 100 UNIT/ML INSULN.PEN SC (06:28)
--- NOTE | 2021-02-09 07:27 | RAD_ITS ---
STUDY: X-RAY - RIGHT KNEE REASON FOR EXAM: Female, 80 years old. post op -- AP and Lateral xray of operative knee in PACU TECHNIQUE: 2 view(s) of the knee. COMPARISON: None. FINDINGS: Status post total knee arthroplasty. Surgical hardware intact/well aligned. No acute complications. Postoperative soft tissues with staple line. RAD/Knee 1 or 2 Views IMPRESSION: Uncomplicated right knee arthroplasty Electronically Signed: Steve Patel DO at 10:35 EDT Tel , Service support ,
[2021-02-09] MEDS: Cefazolin 2 GM in 0.9% Normal Saline 100 ML IV (07:40)
[2021-02-09] MEDS: dexAMETHasone 10 MG/ML Vial IV (07:45)
[2021-02-09] MEDS: Lactated Ringers 1,000 ML 125 ML IV (08:15)
--- NOTE | 2021-02-09 09:09 | OP.PCM_ITS ---
Report of Operation Date of Procedure: 02/09/21 Pre-Operative Diagnosis: OA with valgus deformity right knee Post-Operative Diagnosis: same Surgery/Procedure Performed:: Right TKR Description of Surgical Findings:: Report of Operation Date of Procedure: 02/09/21 Preoperative Diagnosis: [ right ] knee primary osteoarthritis Postoperative Diagnosis: [ right ] knee primary osteoarthritis Operation: Robotic Assisted Knee Total Arthroplasty, [right ] knee Surgeon: Dr Mehrdad Bone DO Pharmacist In Charge: Yesi Tejeda SA Anesthesia: spinal Anesthesiologist: Julio Calles M.D. Findings: Stable knee with good patella tracking Specimen(s): Bony cuts Complications: No intraoperative complications Estimated Blood Loss: 20 cc IV Fluids: 1000 cc crystalline Implants Used: 1. Christopher Triathlon size 4 CR cemented femur 2. Christopher Triathlon size 3 tibia 3. 35 mm patella 4. 9 mm CS polyethylene Brief History Operative Indications: [ (80 y/o female) ] with history of [ right ] knee osteoarthrosis with radiographic findings with loss of joint space, osteophyte formation and subchondral sclerosis. Failed conservative measures as mentioned in the H&P. Discussion of total knee arthroplasty as well as risk and benefits were discussed with the patient including but not limited to blood loss, DVTs, PEs, neurovascular damage, general risk of anesthesia including loss of life, and stiffness or instability were also discussed with the patient. Patient demonstrated understanding and was able to sign informed consent. Procedure: On the date of procedure, patient's [right ] lower extremity was marked in the preoperative area. The patient was then taken back to the operating room where that patient was placed on the table in the supine position. All bony prominences were identified and well-padded. Anesthesia assumed control of the C-spine and airway throughout the remainder of the procedure. A tourniquet was placed on the [ right ] upper thigh and the leg was prepped in a sterile fashion. The surgeon then scrubbed at this time. Upon reentering the room, the [ right ] lower extremity was draped in a standard orthopedic fashion. A timeout was then called and everyone agreed upon the side, the site, the procedure to be performed, patient's identity and antibiotics given. Esmarch bandage was used to exsanguinate the extremity and the tourniquet was placed up to 250 mmHg with the knee in flexion. A midline skin incision was made and a sharp dissection was taken down through skin, subcutaneous tissue and fat. The standard medial parapatellar incision was made and the patella was subluxed laterally. An appropriate deep MCL release was done and the fat pad was resected. Our attention was then directed to the patella. The patella was everted and a flat resection was made. The knee was then flexed up and 2 femoral pins were placed inside the incision and 2 tibial pins were placed outside the incision in the medial tibia bicortically. Once this was completed, the 2 checkpoints in the femur and tibia were placed. Knee was then flexed up and the bony landmarks were registered. Once the was completed, the knee taken through range of motion and manually stressed allowing us to plan for an appropriate tibial cut. The robotic arm was brought into the field sterilely and checkpoint and saw were registered. Based on the patient's deformity, the tibial cut was made in [ 2 degrees valgus ]. At this time, the tensioner was then placed in the joint and ligament tension was checked at 90 degrees and full extension. Based on the patient's ligamentous tension, appropriate adjustments were made to the operative plan and ligament releases were done. Once we were happy with our operative plan with balanced flexion and extension gaps, our attention was directed to the femur. The robot was brought into the field sterilely and registered. Posterior condylar cuts, anterior chamfer cuts and anterior cuts were appropriately made for a [size 4 ] femur. When these were completed, the saws were switched out in the distal femoral and posterior chamfer cuts were made. Protecting the soft tissue throughout this time. A [size 3 ] base plate was selected. The knee was flexed to 90 degrees and soft tissues and posterior osteophytes were removed from the joint. 40 cc of the periarticular injection was injected into the posterior medial corner of the joint. The appropriate trials were then placed on the femur and tibia. A trial polyethylene was trialed to ensure proper balancing and stability of the knee. The appropriate tibial internal rotation was then marked with a bovie. Our attention was then directed to the patella. The lug holes were drilled and the patella trial was placed. Patellar tracking was checked and deemed appropriate. Once we were happy, lug holes were drilled for the femur and trial components were removed. The tibia was subluxed and pinned into place and the keel was punched and drilled appropriately. Final components were verified and opened. The wound was copiously irrigated with normal saline. The components were impacted into place with the tibia, femur and finally the patella. The trial poly component was placed and the knee was placed in full extension. The tracking, alignment and balance were verified and a [9 mm CS ] polyethylene component was placed. Once the final components were placed an Irrisept lavage was performed and the wound was copiously irrigated with normal saline solution and the periarticular injection was given. the wound was closed in a layer-cortez fashion using #1 vicryl interrupted sutures for the arthrotomy, 2-0 interrupted vicryl suture for the subcuticular layer and jerry for final skin closure. A sterile compressive dressing was then placed. The patient was then awakened from anesthesia, transferred to the rport william and transferred to the PACU for recovery. My physician operations manager assistant was a vital part of this case. He was important in appropriate retraction during the case, and protection of soft tissues during bony cuts. His intimate knowledge of the case and my steps aided in safe and expedient completion of the procedure as well as appropriate position of the leg during the case. He was also vital in assisting with closure under my direct supervision. Due to the complexity of this case, robotic arm was used to assist in the surgery to improve accuracy and clinical outcomes. Post-op Plan: DVT ppx; ASA 81 mg BID, thigh high compression stockings Follow up: in office in 2 weeks for wound check PT: to start POD #0 at hospital, outpatient PT should be arranged. Preoperative antibiotic: Ancewf 2 grams IV Mehrdad Bone DO Surgeon: Mehrdad Bone pyridine operator: Yesi Tejeda Type of Anesthesia: Spinal Anesthesiologist: Julio Calles Specimen's removed: bone Drains: none Estimated Blood Loss (mL): 20 cc Fluids Replaced: 1000 cc crystalline
[2021-02-09 10:21] LABS: Bedside Glucose 230 mg/dL (70-110)
[2021-02-09 10:41] LABS: Bedside Glucose 140 mg/dL (70-110)
[2021-02-09] MEDS: Cefazolin 1 GM/50 ML BAG IV ×2 (15:55→22:37)
[2021-02-09] MEDS: 0.9% Saline Lock 10 ML Syringe IV (15:56)
[2021-02-09] MEDS: metFORMIN HCl 500 MG Tablet PO (19:01)
[2021-02-09] MEDS: Senna/Docusate Sodium 1 Tablet 2 TABLET PO (22:40)
[2021-02-09] MEDS: Aspirin 81 MG TAB.CHEW PO (22:43)
[2021-02-10 01:04] VITALS: BP 131/64; PULSE 65; RESP 16; TEMP 36.2; O2SAT 95; BMI 31.4
[2021-02-10 05:33] VITALS: BP 105/56; PULSE 53; RESP 16; TEMP 36.6; O2SAT 93
[2021-02-10] MEDS: Acetaminophen 500 MG Tablet 1000 MG PO ×2 (05:35→14:25)
[2021-02-10] MEDS: oxyCODONE 5 MG Tablet PO (05:37)
[2021-02-10 05:46] VITALS: BMI 31.4
[2021-02-10 06:32] LABS: Hematocrit 35.2 % (37-47); Hemoglobin 11.1 g/dL (12.0-15.0); Mean Corp Hgb Conc 31.5 g/dL (32-36); Mean Corpuscular Hgb 32.2 pg (27.0-32.0); Platelet Count 214 K/mm3 (150-450); Red Blood Count 3.45 M/mm3 (4.2-5.4); White Blood Count 11.1 K/mm3 (4.4-11.0)
[2021-02-10 07:02] LABS: Anion Gap 7 (5-15); BUN 13 mg/dL (7-18); BUN/Creat Ratio 22.7 RATIO (10-20); Calcium,Total 8.3 mg/dL (8.5-10.1); Chloride 109 mmol/L (98-107); Creatinine, Serum 0.57 mg/dL (0.55-1.02); EST Glomerular Filtration Rate 107 mL/min (>60); Est Glom Filt Rate - Afr Amer 130 mL/min (>60); Glucose 132 mg/dL (74-106); Potassium 4.1 mmol/L (3.5-5.1); Sodium Level 141 mmol/L (136-145)
[2021-02-10] MEDS: Senna/Docusate Sodium 1 Tablet 2 TABLET PO (07:31)
[2021-02-10] MEDS: Lisinopril 20 MG Tablet PO ×2 (07:32)
[2021-02-10] MEDS: Cholecalciferol (VIT D3) 25 MCG TABLET (1,000 UNITS) 50 MCG PO (07:32)
--- NOTE | 2021-02-10 07:32 | DCINST_ITS ---
Discharge Instructions Diet Discharge Diet: No restrictions Activity May shower in (days): 1 (Only if incision is dry and without drainage. Do not submerge underwater.) Ice area for (Minutes): 20 (Every 1-[address] barrier between skin and ice.) Weight Bearing Status: Weight bearing as tolerated Keep extremity elevated above heart level: Operative Extremity Additional Activity Instructions:: Follow [facility] postop instructions. Once postoperative dressing has been removed only use gentle soap and water over the incision. Do not use any ointments, Neosporin, salves, alcohol pads over the incision for 6 weeks postoperatively. Wear elastic SACHA hose for 2 weeks. Do not use alcohol with narcotic pain medications. Dressing / Incision Call your doctor if your incision/area has: Continuous Slow Oozing, Sudden Increased Bleeding, Increased Pain/ Swelling, Increased Redness and Foul Smelling Discharge Call your doctor if you observe: Fever of 101 or Higher, Shortness of breath, Chest pain, Calf discomfort and Uncontrolled pain Remove Dressing in: 4 days Follow Up Care Test Results: Test results from this visit will be discussed in further detail at your follow-up appointment, if applicable. Discharge Plan Admission Admit Date/Time: 02/09/21 11:35 Attending Provider: Mehrdad Bone Primary Care Provider: Nahomy Bettencourt Discharge Orders/Prescriptions Prescriptions: New tramadol 50 mg Tablet 50 mg PO .4-6 HOURS PRN PRN (Reason: Pain 1-3) 7 Days Qty: 60 RF: 0 acetaminophen 500 mg Tablet 1,000 mg PO Q8 Qty: 90 RF: 0 aspirin 81 mg Tablet,Chewable 81 mg PO BID Qty: 60 RF: 0 Continued Linzess 145 mcg capsule 145 mcg PO PRN PRN (Reason: STOOL) 60 Days RF: 0 gabapentin 300 mg capsule 600 mg PO 4X/DAY 30 Days Qty: 150 RF: 0 metformin 500 mg tablet 500 mg PO BID RF: 0 cholecalciferol (vitamin D3) 2,000 unit capsule 2,000 unit PO DAILY RF: 0 vitamin B complex [B Complex 1] tablet 1 tab PO BID RF: 0 duloxetine 30 mg capsule,delayed release(DR/EC) 30 mg PO DAILY RF: 0 lisinopril 20 MG tablet 20 mg PO DAILY RF: 0 biotin 1 MG capsule 1,000 mg PO DAILY RF: 0 turmeric 400 mg Capsule 500 mg PO DAILY RF: 0 Held tramadol 50 mg tablet 50 mg PO QDAY PRN (Reason: Pain) RF: 0 Hold Instructions: Resume on 03/10/21. Referrals / Follow Up: Nahmoy Bettencourt MD [Primary Care Provider] -
--- NOTE | 2021-02-10 07:32 | PN.ORTHO_ITS ---
Subjective Subjective Patient is s/p right sided total knee arthroplasty with Dr. Bone. Patient resting comfortably in bed.For Rates pain 0/ 10 at rest. With movement 0/10. States taking scheduled Tylenol, oxycodone, tramadol. And ice help to relieve pain. Patient has been up with therapy. Walking with the assit of a walker. A febrile, no chest pain, shortness of breath, negative calf pain/ erythema, and no other signs of DVT. Objective Data Objective Data Vital Signs: Vital Signs Temp Pulse Resp BP Pulse Ox 97.9 F 53 L 16 105/56 L 93 02/10/21 05:33 02/10/21 05:33 02/10/21 05:33 02/10/21 05:33 02/10/21 05:33 Oxygen Flow Rate (L/min) 6 Oxygen Delivery Method Room Air Weight: 88.3 kg Body Mass Index (BMI) 31.4 Intake & Output: Intake and Output for Last 24 Hours 02/08/21 02/09/21 02/10/21 23:59 23:59 23:59 Intake Total 5205.5 / 5221.25 15.75 / 15.75 Output Total 400 / 400 800 / 800 Balance 4805.5 / 4821.25 -784.25 / -784.25 Lab / Micro Data Result Diagrams: 02/10/21 06:14 02/10/21 06:14 Labs: Laboratory Results - last 24 hr 02/09/21 06:04: POC Glucose 230 H 02/09/21 10:26: POC Glucose 140 H 02/10/21 06:14: WBC 11.1 H, RBC 3.45 L, Hgb 11.1 L, Hct 35.2 L, MCV 102.0 H, MCH 32.2 H, MCHC 31.5 L, RDW Std Deviation 49.0 H, RDW Coeff of Robert 13.0, Plt Count 214, MPV 10.0 02/10/21 06:14: Sodium 141, Potassium 4.1, Chloride 109 H, Carbon Dioxide 25.0, Anion Gap 7, BUN 13, Creatinine 0.57, Estim Creat Clear Calc 40.60, Est GFR (MDRD) Af Amer 130, Est GFR (MDRD) Non-Af 107, BUN/Creatinine Ratio 22.7 H, Glucose 132 H, Calcium 8.3 L Micro: Microbiology 01/27/21 13:06 Swab (Method) Nasal Screen MRSA/MSSA - Final Radiography Diagnostic Testing: Radiology Impression Knee X-Ray 02/09/21 07:27 IMPRESSION: Uncomplicated right knee arthroplasty Electronically Signed: Steve Patel, DO at 10:35 EDT Tel , Service support , Physical Exam Narrative Patient resting comfortably in bed No signs of acute distress Satting well on room air Limb is warm to touch, Sensation intact throughout entire lower extremity, including saphenous, sural, superficial and deep peroneal, and tibial distribution. DP/PT pulses bounding. Dressing [with small amount of sanguinous draining at the most superior aspect] Calf nontender to palpation, no erythema, no edema. Negative Homans Assessment & Plan Assessment/Plan (1) S/P total knee arthroplasty: PLAN: l1. Will continue PT today 2. plan for discharge this afternoon following PT 3. Patient will follow up for his post op appointment on 02/20/21 with clinical assistant maintenance manager. 4. Patient has outpatient PT appointment on 02/13/2021 5. WBC 11.1 acute reactive leukocytosis: secondary to pre operative decadron. no acute systemic signs of infection. will monitor, and likely self resolve. 6. H/H 11.1/35.2: post operavtive anemia secondary to acute blood loss intraoperatively. Patient is asymptomatic at this time. No intraoperative complications. will continue to monitor. no acute interventions. 7. DVT prophylaxis : ASA 81 twice daily x4 weeks 8. Pain control: patient instructed to take tylenol 500mg 2 tablets TID. and tramadol 1-2 tablets every 4-6 hours only as needed for pain control. 9. Patient also given a prescription of , Pepcid for ulcer prophylaxis, and Zofran as needed for postop nausea. 10. Patient reports potentially his care are going home. Will discuss with case management social worker today as to where she will be discharged to.
[2021-02-10] MEDS: metFORMIN HCl 500 MG Tablet PO (07:33)
[2021-02-10] MEDS: DULoxetine Hcl 30 MG Capsule PO (07:33)
[2021-02-10] MEDS: Gabapentin 600 MG Tablet PO ×2 (07:33→11:12)
[2021-02-10] MEDS: Aspirin 81 MG TAB.CHEW PO (07:36)
[2021-02-10 08:10] VITALS: O2SAT 99
--- NOTE | 2021-02-10 08:14 | CASEMGMT ---
LW/POA scanned into summary tab of echart. Pt's Kit Medrano is listed as pt's Medical POA. COLUMBA Odonnell
[2021-02-10 08:32] VITALS: BP 110/45; PULSE 57; RESP 16; TEMP 36.2; O2SAT 95
--- NOTE | 2021-02-10 10:35 | CASEMGMT ---
SW met w/pt in room, to review pt's prior level of function and anticipated discharge plan. PCP: Nahomy Bettencourt Specialists: Dr. Bone, Dr. 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 Pt is independent with most ADLs. They do have a cleaning person once per month. Pt does her own personal care, meds, can drive--though her does more of the driving. Pt's does most of the cooking. HHC/SNF/DME: No history of home health or SNF. Pt uses a cane, walker, has a seat in the shower. Pt's plans to get a tub transfer bench. SW spoke w/pt in regard to discharge plan. Pt states cannot manage at home w/, agreeable to SNF placement. SW provided list of usp facilities in pt's geographic area, that take pt's insurance, complete w/quality and resource use data. Pt [facility] like [facility]. [facility], [facility]. [facility] or [facility]. [facility]. SW explained that there are no beds in TCU. Pt inquired if she could go home and wait for a bed to be available in TCU. SW explained that if pt needs to go to a facility for rehab, sending her home for a few days to wait for a bed would not be appropriate. Pt states understanding, agreeable to SW sending referral to [facility]. SW called [facility], spoke w/Ya in admissions and faxed referral. SW will continue to follow. COLUMBA Odonnell
[2021-02-10 11:16] VITALS: BP 94/45; PULSE 57; RESP 16; TEMP 36.3; O2SAT 94
--- NOTE | 2021-02-10 12:05 | CASEMGMT ---
[facility] can take pt today. SW spoke w/pt and , they are in agreement, after some discussion, for pt to go to [facility] today. SW called [facility], let them know that we do have a bed for pt today if they would like to discharge, spoke w/Philomena. She will let the PA and physician know. Once SW has discharge instructions SW will work on getting pt over to the [facility]. SW did let pt and know that we will set up a wheelchair van to take pt over, did also make them aware of cost. Plan: [facility], once discharged and paperwork is completed. COLUMBA Odonnell
[2021-02-10 14:28] VITALS: BP 94/35; PULSE 82; RESP 16; TEMP 36.1; O2SAT 94
--- NOTE | 2021-02-10 16:19 | CASEMGMT ---
SHANTE CM in to complete SR form with patient. RN RADHA explained SR form to patient, patient voiced understanding. Patient signed SR form and filed in chart. Patient provided with copy of signed SR form. Patient had no further question or concerns at this time.
--- NOTE | 2021-02-11 12:22 | CASEMGMT ---
Please note: This is from 02/10/21 at 4pm. Pt is ready for discharge. SW completed PAS/RR in the Consumer Agent Portal (CAP) system. WILMAN faxed all discharge paperwork to [facility], including med list and transfer to extended care. Schedule II med script sent to [facility]. WILMAN set up a 5pm wheelchair van w/[facility]. WILMAN let pt, bedside RN, and [facility] know time of pickup. Pt has not been able to reach as his line has been busy. SW did also try multiple times and the line has been busy. Pt to [facility], skilled for a convalescent stay, though PAS/RR was completed as pt is here observation. No further needs at this time. COLUMBA Odonnell
== END 2021-02-10 17:14 ==
LOC: SDC 13:16 → MS2 13:16
PROVIDERS: Anesthesiology; Admitting Provider Orthopaedic Surgery; PCP Family Medicine; Referring Provider Orthopaedic Surgery; Visit Provider Orthopaedic Surgery
PROC: 0SRC0JZ Replacement of Right Knee Joint with Synthetic Substitute, Open Approach (ICD-10-PCS; CPT 27447; principal; 2021-02-09 07:00)
DX: M17.11 Unilateral primary osteoarthritis, right knee (principal); E11.40 Type 2 diabetes mellitus with diabetic neuropathy, unspecified; E11.65 Type 2 diabetes mellitus with hyperglycemia; I48.0 Paroxysmal atrial fibrillation; G40.909 Epilepsy, unspecified, not intractable, without status epilepticus; Z79.4 Long term (current) use of insulin; M21.061 Valgus deformity, not elsewhere classified, right knee; I10 Essential (primary) hypertension; I25.10 Atherosclerotic heart disease of native coronary artery without angina pectoris; Z79.899 Other long term (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; R53.81 Other malaise; D72.829 Elevated white blood cell count, unspecified; Z87.891 Personal history of nicotine dependence; Z79.82 Long term (current) use of aspirin
CPT/HCPCS: 27447; 64447; S2900; 36415; 71046; 73560; 73564; 80048; 82962; 83036; 83735; 85025; 85027; 87081; 87426; 88305; 88311; 93005; 96361; 96365; 96366; 96372; 96374; 96376; 97110; 97116; 97162; 97166; 97530; 97535; 99218; 99251; 99285; C1776; J7120; A4216; G0378; G0463

== ENCOUNTER 2021-02-10 20:11 | Observation (INO) | payer MEDICARE, OTHER, SELFPAY ==
[2021-02-10 20:12] VITALS: BP 124/69; PULSE 109; RESP 16; TEMP 36.1; O2SAT 95; BMI 30.7
--- NOTE | 2021-02-10 20:42 | CM.ED ---
SW Note Referral Source: Triage Referral Reason: Patient went to [facility] today and checked out. Wants options. SW met with patient and her in ED [place] (no other patient's were around).Patient stated she went to the [facility] today and did not like it with various complaints so checked out. Patient asked if she could stay in the hospital tonight. SW explained that there is no medical reason for patient to be admitted. Patient expressed concern regarding her leg and SW indicated that MD would examine it. Patient indicated she wanted to go home. SW discussed home health with patient and her and patient said she wanted home health. SW provided home health list to patient. Patient said that she wants home health and specifically, [facility] home health at discharge. Plan: Home Health at discharge. Radha MONTEZ
[2021-02-10] MEDS: Morphine 4 MG/ML Syringe IM (22:07)
[2021-02-10] MEDS: Ondansetron ODT 4 MG Tablet 8 MG PO (22:07)
[2021-02-10 22:16] VITALS: BP 132/67; PULSE 74; RESP 18; O2SAT 94
--- NOTE | 2021-02-10 22:48 | EDS_ITS ---
HPI History of Present Illness Chief Complaint: Wound Check Informant: patient and spouse/S.O. Onset/Context/Timing Onset: Yesterday Context: - (since surgery) Timing: Continuous Quality of Pain: Aching Location: R knee Current Severity: Severe Maximum Severity: Severe Worsened by: movement Relieved by: tylenol Associated Symptoms Associated Symptoms: Negative for Parasthesia and Weakness Narrative Narrative: Patient had a total knee arthroplasty on the right yesterday by Dr. Silverman, she was discharged to short-term rehab the [facility]. She states she was discharged this afternoon, and she had a terrible experience at the [facility] and had her come and take her out. She was not able to get help going to the bathroom, or with her pain, etc. She presents here because she had some bleeding from the wound/dressing, her pain is out of control, and she feels she is unable to care for herself at home and wants to look for other options. She denies any fevers or chills or other symptoms, just postoperative pain at the right knee. [facility] Medical History Ambulates with cane Arthritis Atherosclerotic heart disease of [place] coronary artery without angina pectoris Back pain Cardiology follow-up encounter Chronic cough Diabetes Dietary restriction DM2 (diabetes mellitus, type 2) Epilepsy Essential hypertension Former smoker History of atrial fibrillation History of echocardiogram History of left heart catheterization (LHC) (~11/17/18) History of pain when walking History of steroid therapy History of stress test Hx of back injury Hx of vaginal delivery Hypertension Injury of back Injury of head and neck Neuropathy Neuropathy, diabetic Paroxysmal atrial fibrillation Wears glasses Home Medications biotin 1,000 mg PO DAILY 11/21/14 [History Last Taken 01/24/16 17:00] lisinopril 20 mg PO DAILY 11/21/14 [History Last Taken 11/17/18] tramadol 50 mg tablet 50 mg PO QDAY PRN tab 09/08/17 [History Last Taken Unknown] cholecalciferol (vitamin D3) 50 mcg (2,000 unit) capsule 2,000 unit PO DAILY 09/13/18 [History Last Taken Unknown] linaclotide 145 mcg capsule 145 mcg PO PRN PRN 60 Days cap 09/13/18 [History Last Taken Unknown] metformin 500 mg tablet 500 mg PO BID 09/13/18 [History Last Taken Unknown] vitamin B complex 1 tab PO BID 09/13/18 [History Last Taken Unknown] gabapentin 300 mg capsule 600 mg PO 4X/DAY 30 Days #150 cap 09/24/19 [History Last Taken Unknown] duloxetine 30 mg capsule,delayed release 30 mg PO DAILY 09/22/20 [History Last Taken Unknown] turmeric 500 mg PO DAILY 12/17/20 [History Last Taken Unknown] acetaminophen 1,000 mg PO Q8 #90 tab 02/10/21 [Rx Last Taken Unknown] aspirin 81 mg PO BID #60 tab 02/10/21 [Rx Last Taken Unknown] tramadol 50 mg PO .4-6 HOURS PRN PRN 7 Days #60 tab 02/10/21 [Rx Last Taken Unkn own] Allergy/AdvReac Type Severity Reaction Status Date / Time bacitracin Allergy Rash Verified 02/10/21 20:16 [From Neosporin ([id number])] bacitracin zinc Allergy Rash Verified 02/10/21 20:16 [From Neosporin ([id number]-[id number])] neomycin sulfate Allergy Rash Verified 02/10/21 20:16 [From Neosporin ([id number]-sej-dchru)] polymyxin B Allergy Rash Verified 02/10/21 20:16 [From Neosporin ([id number]-mhl-pjell)] sulfamethoxazole Allergy Itching Verified 02/10/21 20:16 [From Bactrim] trimethoprim [From Bactrim] Allergy Itching Verified 02/10/21 20:16 codeine AdvReac Nausea Verified 02/10/21 20:16 milk AdvReac Nausea/Vom/ Verified 02/10/21 20:16 Diarrhea Family History Father No problems noted. Mother No problems noted. Surgical History Amputated toe of right foot Deviated septum History of appendectomy History of cardiac catheterization History of cholecystectomy History of hysterectomy History of neck surgery History of tonsillectomy History of total right knee replacement (TKR) Hx of cystoscopy Hx of fusion of cervical spine Social History Smoking Status: Former smoker alcohol intake: never substance use type: does not use caffeine: No what type of physical activity do you participate in: other details: physical therapy seatbelt use: always do you feel safe at home: Yes ROS ROS ED Constitutional Constitutional ED: Denies chills or fever(s) Eyes Eyes: Denies change in vision or diplopia ENT ENT ED: Denies rhinorrhea or sore throat Cardiovascular Cardiovascular: Denies chest pain or palpitations Respiratory/Chest Respiratory/Chest: Denies cough or dyspnea Gastrointestinal Gastrointestinal: Denies abdominal pain, diarrhea, nausea or vomiting Genitourinary Genitourinary ED: Denies dysuria or hematuria Musculoskeletal Musculoskeletal: Reports extremity pain; Denies back pain or neck pain Integumentary Reports as per HPI and erythema; Denies abscess or rash Neurologic Neurologic: Denies headache(s), paresthesias or weakness Psychiatric Psychiatric: Denies anxiety or suicidal thoughts Hematologic/Lymphatic Hematologic/Lymphatic: Reports easy bleeding and easy bruising EXAM Physical Exam Const Vital Signs: 02/10/21 20:12 02/10/21 22:16 Temperature 97 F L Temperature Source Temporal Pulse Rate 109 H 74 Respiratory Rate 16 18 Blood Pressure 124/69 H 132/67 H Blood Pressure Mean 87 88 Pulse Ox 95 94 Oxygen Delivery Method Room Air Room Air Positive well nourished and well developed General Appearance ED: well developed and NAD HEENT Reports moist mucous membranes normocephalic and atraumatic Eyes PERRL and EOMs intact bilaterally Neck full ROM and supple Resp normal respiratory effort and clear to auscultation bilaterally Cardio regular rate, regular rhythm and no murmurs GI non-tender and non-distended Auscultation: normoactive bowel sounds Palpation: soft Back/Spine no CVA tenderness General Back: other FROM Extremity Extremity Narrative: Limited range of motion right knee due to pain. Postoperative dressing intact, there is a scant amount of blood on it. There is some dried blood lateral to the dressing on the leg. There is some blanching erythema surrounding the knee, most of it is nontender. She does have tender ness anteriorly at the knee but it is relatively mild. All compartments are soft, there is mild edema distally. 2+/4 dorsalis pedis pulse. General Extremety ED: Negative for pulses abnormal General Extremity: Negative for pulses abnormal Neuro oriented x3, CN's II-XII intact bilaterally and no sensory deficits noted Sensorium / Orientation: awake and alert Motor Exam: strength 5/5 throughout Skin no rashes or lesions noted and no wounds MDM MDM MDM Narrative Medical decision making narrative: Patient was leery about getting narcotics, she has had morphine before and tolerated it, treating kidney stones. She was given morphine after we discussed options as well as some prophylactic Zofran. This did help her pain. Discussed with social work, the patient presents late at night. Social work did send an email to home health, however we are will not be able to receive an answer for that tonight. I discussed with the patient, is she able to go home with her and to care for this tonight, or does she require inpatient stay in short-term rehab, she chooses the latter and states she will be unable to take care of for this at home even with her 's help. Clinically, I do not think this is infected but I am unable to see the incision itself without taking the postoperative dressing off which I am uncomfortable doing before talking to the surgeon. I attempted to discuss with orthopedics, but at this time I have not yet received a call back. Hospitalist will admit overnight and have them look at it in the morning. Lab Data Attestation: I reviewed the patient's lab results. Labs: Laboratory Results - last 24 hr 02/10/21 02/10/21 23:01 23:01 WBC 11.4 H RBC 3.94 L Hgb 12.7 Hct 39.8 MCV 101.0 H MCH 32.2 H MCHC 31.9 L RDW Std Deviation 49.1 H RDW Coeff of Robert 13.2 Plt Count 266 MPV 10.2 Immature Gran % (Auto) 1.200 H Neut % (Auto) 72.4 H Lymph % (Auto) 17.7 L [place] % (Auto) 7.9 Eos % (Auto) 0.4 Baso % (Auto) 0.4 Absolute Neuts (auto) 8.3 H Absolute Lymphs (auto) 2.02 Nucleated RBC % 0 Sodium 145 Potassium 3.9 Chloride 110 H Carbon Dioxide 28.0 Anion Gap 7 BUN 16 Creatinine 0.58 Estim Creat Clear Calc 40.60 Est GFR (MDRD) Af Amer 129 Est GFR (MDRD) Non-Af 107 BUN/Creatinine Ratio 27.8 H Glucose 108 H Calcium 8.7 Discharge Plan Dx/Rx/DC Orders Clinical Impression: Acute postoperative pain of right knee, S/P total knee arthroplasty, Inability to ambulate due to knee Disposition Disposition: Acute Care Hospital [facility]
--- NOTE | 2021-02-10 23:10 | CM.ED ---
SW Note SW was advised by MD Pascual that patient was being admitted. Plan: To be determined Radha MONTEZ
[2021-02-10 23:23] LABS: Absolute Lymphocyte Count 2.02 X10^3/uL (0.83-4.51); Absolute Neutrophil Count 8.3 X10^3/uL (2.0-7.7); Anion Gap 7 (5-15); BUN 16 mg/dL (7-18); BUN/Creat Ratio 27.8 RATIO (10-20); Basophil# 0.04 X10^3/uL; Basophil% 0.4 % (0-1); Calcium,Total 8.7 mg/dL (8.5-10.1); Chloride 110 mmol/L (98-107); Creatinine, Serum 0.58 mg/dL (0.55-1.02); EST Glomerular Filtration Rate 107 mL/min (>60); Eosinophil# 0.05 X10^3/uL; Eosinophils% 0.4 % (0-5); Est Glom Filt Rate - Afr Amer 129 mL/min (>60); Glucose 108 mg/dL (74-106); Hematocrit 39.8 % (37-47); Hemoglobin 12.7 g/dL (12.0-15.0); Lymphocyte # 2.02 X10^3/ul (0.83-4.51); Lymphocyte % 17.7 % (19-41); Mean Corp Hgb Conc 31.9 g/dL (32-36); Mean Corpuscular Hgb 32.2 pg (27.0-32.0); Mean Platelet Vol. 10.2 fl (6.2-12.0); Monocyte% 7.9 % (0-10); NRBC Flagged by Analyzer 0 % (0-5); Neutrophil # 8.25 X10^3/uL (2.7-7.7); Neutrophil % 72.4 % (47-70); Platelet Count 266 K/mm3 (150-450); Potassium 3.9 mmol/L (3.5-5.1); RBC Distribution Width CV 13.2 % (11.6-14.6); RBC Distribution Width SD 49.1 fl (35.1-43.9); Red Blood Count 3.94 M/mm3 (4.2-5.4); Sodium Level 145 mmol/L (136-145); White Blood Count 11.4 K/mm3 (4.4-11.0)
--- NOTE | 2021-02-10 23:29 | PCM.HP.STD ---
HPI - General General Date of Admission: 02/10/21 Date of Service: 02/10/21 Chief Complaint: placement HPI Narrative MADGY MIRAMONTES, is a 80 F right status post total knee arthroplasty postop day 1 presenting for placement. Patient was discharged to [facility] for rehabilitation. She left the [facility] the same day where she went there and came to the emergency department. She left the [facility] because of poor care. She attributes this poor care partly to nurses having a meeting at the time that she arrived. She also reports poor logistics at the [facility]. When she arrived at the emergency department it was too late for case management to find her another place for rehabilitation. She reports pain in her right knee where she had the total arthroplasty. At the emergency department she was given morphine for pain. [facility] Medical History Ambulates with cane Arthritis Atherosclerotic heart disease of [place] coronary artery without angina pectoris Back pain Cardiology follow-up encounter Chronic cough Diabetes Dietary restriction DM2 (diabetes mellitus, type 2) Epilepsy Essential hypertension Former smoker History of atrial fibrillation History of echocardiogram History of left heart catheterization (LHC) (~11/17/18) History of pain when walking History of steroid therapy History of stress test Hx of back injury Hx of vaginal delivery Hypertension Injury of back Injury of head and neck Neuropathy Neuropathy, diabetic Paroxysmal atrial fibrillation Wears glasses Home Medications biotin 1,000 mg PO DAILY 11/21/14 [History Last Taken 01/24/16 17:00] lisinopril 20 mg PO DAILY 11/21/14 [History Last Taken 11/17/18] tramadol 50 mg tablet 50 mg PO QDAY PRN tab 09/08/17 [History Last Taken Unknown] cholecalciferol (vitamin D3) 50 mcg (2,000 unit) capsule 2,000 unit PO DAILY 09/13/18 [History Last Taken Unknown] linaclotide 145 mcg capsule 145 mcg PO PRN PRN 60 Days cap 09/13/18 [History Last Taken Unknown] metformin 500 mg tablet 500 mg PO BID 09/13/18 [History Last Taken Unknown] vitamin B complex 1 tab PO BID 09/13/18 [History Last Taken Unknown] gabapentin 300 mg capsule 600 mg PO 4X/DAY 30 Days #150 cap 09/24/19 [History Last Taken Unknown] duloxetine 30 mg capsule,delayed release 30 mg PO DAILY 09/22/20 [History Last Taken Unknown] turmeric 500 mg PO DAILY 12/17/20 [History Last Taken Unknown] acetaminophen 1,000 mg PO Q8 #90 tab 02/10/21 [Rx Last Taken Unknown] aspirin 81 mg PO BID #60 tab 02/10/21 [Rx Last Taken Unknown] tramadol 50 mg PO .4-6 HOURS PRN PRN 7 Days #60 tab 02/10/21 [Rx Last Taken Unknown] Allergy/AdvReac Type Severity Reaction Status Date / Time bacitracin Allergy Rash Verified 02/10/21 20:16 [From Neosporin ([id number])] bacitracin zinc Allergy Rash Verified 02/10/21 20:16 [From Neosporin ([id number])] neomycin sulfate Allergy Rash Verified 02/10/21 20:16 [From Neosporin ([id number]-xul-[id number])] polymyxin B Allergy Rash Verified 02/10/21 20:16 [From Neosporin ([id number]-[id number])] sulfamethoxazole Allergy Itching Verified 02/10/21 20:16 [From Bactrim] trimethoprim [From Bactrim] Allergy Itching Verified 02/10/21 20:16 codeine AdvReac Nausea Verified 02/10/21 20:16 milk AdvReac Nausea/Vom/ Verified 02/10/21 20:16 Diarrhea Family History Father No problems noted. Mother No problems noted. Surgical History Amputated toe of right foot Deviated septum History of appendectomy History of cardiac catheterization History of cholecystectomy History of hysterectomy History of neck surgery History of tonsillectomy History of total right knee replacement (TKR) Hx of cystoscopy Hx of fusion of cervical spine Social History Smoking Status: Former smoker alcohol intake: never substance use type: does not use caffeine: No what type of physical activity do you participate in: other details: physical therapy seatbelt use: always do you feel safe at home: Yes ROS ROS Narrative Constitutional: Denies fever, chills, fatigue, anorexia and change in weight Eyes: Denies blurry vision, change in eye color, change in vision, discharge from eye(s), double vision, erythema, eye pain, loss of vision or other HEENT: Denies abnormal hearing, dysphagia, ear pain, epistaxis, headache(s), hearing loss, nasal congestion, nasal discharge, post nasal drip, sinus pressure, sore throat or other Cardiovascular: Denies chest pain or palpitations. Denies dyspnea on exertion, orthopnea and paroxysmal nocturnal dyspnea Respiratory/Chest: Denies cough, excessive phlegm production, shortness of breath with exertion and wheezing Gastrointestinal: Denies abdominal pain, coffee ground emesis, constipation, diarrhea, dyspepsia, hematemesis, hematochezia, loose stools, melena, nausea, vomiting or other Genitourinary: Denies burning urination, difficulty urinating, dysuria, hematuria, nocturia, urinary frequency, urinary hesitancy, urinary incontinence, urinary urgency or other Musculoskeletal: Reports right knee pain. Denies , myalgias, neck pain or other Neurologic: Denies abnormal speech, confusion, disequilibrium, dizziness, focal weakness, headache(s), numbness, paresthesias, seizure-like activity, seizures, syncope, tingling, tremor(s) or other Psychiatric: Denies homicidal ideation, suicidal ideation or other Endocrinology: Denies change in body appearance, cold intolerance, excessive sweating, heat intolerance, polydipsia, polyuria or other Hematologic/Lymphatic: Denies anemia, easy bleeding, easy bruising, lymphadenopathy or other Integumentary: Denies rashes Allergic/Immunologic: Denies rhinitis, hives, eczema, asthma or other Vital Signs Vital Signs Vital Signs: 02/10/21 20:12 02/10/21 22:16 Temperature 97 F L Temperature Source Temporal Pulse Rate 109 H 74 Respiratory Rate 16 18 Blood Pressure 124/69 H 132/67 H Blood Pressure Mean 87 88 Pulse Ox 95 94 Oxygen Delivery Method Room Air Room Air Weight Weight: 86.183 kg Body Mass Index (BMI) 30.7 Physical Exam Narrative Physical exam: General: Well-nourished, well-developed. Head: Normocephalic, atraumatic, no tenderness Eyes: PERRLA, EOMI ENT, no trauma, moist mucous membranes, no rhinorrhea Neck: Nontender, full range of motion, no spinal tenderness, deformities, step-off CVS: Regular rate and rhythm. S1-S2 present. Respiratory : clear to auscultation bilaterally, chest wall nontender, no wheezing Abdomen: Soft, nontender, nondistended, normal bowel sounds, no masses : Deferred Back: Nontender, no CVA tenderness, no midline spinal tenderness, deformities, step-offs Extremities: R knee with dressing in place, right knee with edema; tenderness and mild erythema. Left knee with no edema, tenderness or erythema. Skin: Normal color, no trauma, abrasions Neuro: Alert, oriented, cranial nerves II through XII grossly intact. Psychiatry: Normal mood. Normal affect. Not depressed. Not anxious. Results Lab / Micro Data Result Diagrams: 02/10/21 23:01 02/10/21 23:01 Labs: Laboratory Results - last 24 hr 02/10/21 23:01: WBC 11.4 H, RBC 3.94 L, Hgb 12.7, Hct 39.8, MCV 101.0 H, MCH 32.2 H, MCHC 31.9 L, RDW Std Deviation 49.1 H, RDW Coeff of Robert 13.2, Plt Count 266, MPV 10.2, Immature Gran % (Auto) 1.200 H, Neut % (Auto) 72.4 H, Lymph % (Auto) 17.7 L, [place] % (Auto) 7.9, Eos % (Auto) 0.4, Baso % (Auto) 0.4, Absolute Neuts (auto) 8.3 H, Absolute Lymphs (auto) 2.02, Nucleated RBC % 0 02/10/21 23:01: Sodium 145, Potassium 3.9, Chloride 110 H, Carbon Dioxide 28.0, Anion Gap 7, BUN 16, Creatinine 0.58, Estim Creat Clear Calc 40.60, Est GFR (MDRD) Af Amer 129, Est GFR (MDRD) Non-Af 107, BUN/Creatinine Ratio 27.8 H, Glucose 108 H, Calcium 8.7 Assessment & Plan Assessment/Plan (1) Debility: (2) S/P total knee arthroplasty: QUALIFIERS: Laterality: right Qualified Code(s): Z96.651 - Presence of right artificial knee joint PLAN: Debility secondary to status post total knee arthroplasty. PT and OT to work with patient. Case management consult for disposition. Tramadol as needed and scheduled Tylenol for pain per orthopedic discharge prescriptions. Received morphine IV at the emergency department with good results. Patient asked that morphine as needed should be continued. Morphine as needed ordered. Bowel protocol and antiemetics in place. Leukocytosis Review emergent department labs showed white count of 11.4. Her white count earlier on the same day was 11.1. Likely reactive. Hypertension Blood pressure is stable in regard to her age Continue home blood pressure medications. Trend blood pressure and adjust blood pressure medications. Diabetes mellitus Patient with mild hyperglycemia on presentation. Continue home Metformin. Accu-Chek QA CHS with correction scale insulin ordered. 1800 kcal stricter diet ordered. DVT prophylaxis On recent Discharge was ordered aspirin 81 mg twice daily. While at the hospital Lovenox subcutaneous ordered. A recent discharge SACHA hose was ordered by orthopedic surgeon. While at the hospital SACHA hose ordered. Charges/Coding Visit Charges OBSV E&M: [id number] Initial observation care L2
[2021-02-11 01:08] VITALS: BP 132/67; PULSE 74; RESP 18; TEMP 36.1; O2SAT 94
[2021-02-11 02:00] VITALS: BMI 32.0
[2021-02-11 02:24] VITALS: BP 130/57; PULSE 66; RESP 16; TEMP 36.8; O2SAT 96
[2021-02-11] MEDS: Acetaminophen 500 MG Tablet 1000 MG PO ×2 (02:59→13:33)
[2021-02-11] MEDS: Morphine 4 MG/ML Syringe IV ×2 (03:04→08:35)
[2021-02-11] MEDS: 0.9% Saline Lock 10 ML Syringe IV ×2 (03:07→08:35)
[2021-02-11] MEDS: traMADol 50 MG Tablet 100 MG PO (06:07)
--- NOTE | 2021-02-11 06:51 | NURSING ---
Pandemic Charting in effect.
[2021-02-11 07:07] VITALS: O2SAT 96
[2021-02-11 08:45] VITALS: BP 121/57; PULSE 80; RESP 16; TEMP 36.6; O2SAT 91
[2021-02-11 08:48] VITALS: RESP 16; O2SAT 91
--- NOTE | 2021-02-11 09:53 | CASEMGMT ---
Addendum entered by Geri Méndez 02/11/21 11:32: WILMAN received call from Ekta with [facility] stating pt is on medication Linaclotide/Linzess and pt will not be able to take that medication on TCU due to costs. TCU can provide pt with other medication if needed. WILMAN in to speak with pt. WILMAN updated pt that she will not be able to take Linaclotide/Linzess but TCU can provide other medication if needed. Pt states understanding. Plan: TCU Original Note: Social Work Note WILMAN placed a call to Ekta with [facility]CU to inquire about bed availability. Ekta states TCU does have a bed today, able to accept pt today. Pt will need COVID test. WILMAN in to speak with pt regarding discharge plans. Pt agreeable to SNF. Patient was provided a list of SNF providers including quality and resource use data and consistent with the patient?s preferred geographic region, medical needs, and insurance network. WILMAN updated pt that TCU is able to accept pt. Pt's preferred provider is TCU. WILMAN placed a call to Ekta with [facility], pt to discharge to TCU today. WILMAN updated physician. Plan: TCU today Geri Méndez [employer], [employer]
[2021-02-11] MEDS: Enoxaparin 40 MG/0.4 ML Syringe SC (10:16)
--- NOTE | 2021-02-11 11:00 | RAD_ITS ---
STUDY: X-RAY - RIGHT KNEE REASON FOR EXAM: Increased right knee pain, redness and warmth. TECHNIQUE: 4 view(s) of the knee. COMPARISON: Radiographs 02/09/2021. FINDINGS: There is a right total knee arthroplasty without interval change or evidence of complication. There is mild residual postoperative gas in the soft tissues. There is a joint effusion. There are overlying skin ejrry. There are intra-articular bodies in the distal popliteus tendon sheath. RAD/Knee 4 or More Views IMPRESSION: Right total knee arthroplasty with decreased soft tissue gas without other interval change. Electronically Signed: Fili Blackwell MD at 14:30 EDT Tel , Service support ,
[2021-02-11] MEDS: oxyCODONE 5 MG Tablet PO ×2 (11:33→16:01)
--- NOTE | 2021-02-11 11:57 | CON.PCM.OR_ITS ---
HPI Consult Data Date of Consult: 02/11/21 HPI Narrative HPI Narrative: MAGDY MIRAMONTES, is a 80 F who presents status post right total knee arthroplasty 02/09/2021. She status observation status overnight. No complications all. Had slight postoperative anemia no asymptomatic. Acute reactive leukocytosis due to Decadron preoperatively. She presents because of placement issues. She was initially discharged to [facility]. She reports there is poor care there which is why she returned to the emergency room for placement. No fevers, illnesses, signs or symptoms of infection. Pain is under control with Tylenol and as needed morphine and or oxycodone. COUNTS INCLUDE 234 BEDS AT THE [facility] Medical History Ambulates with cane Arthritis Atherosclerotic heart disease of [place] coronary artery without angina pectoris Back pain Cardiology follow-up encounter Chronic cough Diabetes Dietary restriction DM2 (diabetes mellitus, type 2) Epilepsy Essential hypertension Former smoker History of atrial fibrillation History of echocardiogram History of left heart catheterization (LHC) (~11/17/18) History of pain when walking History of steroid therapy History of stress test Hx of back injury Hx of vaginal delivery Hypertension Injury of back Injury of head and neck Neuropathy Neuropathy, diabetic Paroxysmal atrial fibrillation Wears glasses Home Medications biotin 1,000 mg PO DAILY 11/21/14 [History Last Taken 01/24/16 17:00] lisinopril 20 mg PO DAILY 11/21/14 [History Last Taken 11/17/18] tramadol 50 mg tablet 50 mg PO QDAY PRN tab 09/08/17 [History Last Taken Unknown] cholecalciferol (vitamin D3) 50 mcg (2,000 unit) capsule 2,000 unit PO DAILY 09/13/18 [History Last Taken Unknown] linaclotide 145 mcg capsule 145 mcg PO PRN PRN 60 Days cap 09/13/18 [History Last Taken Unknown] metformin 500 mg tablet 500 mg PO BID 09/13/18 [History Last Taken Unknown] vitamin B complex 1 tab PO BID 09/13/18 [History Last Taken Unknown] gabapentin 300 mg capsule 600 mg PO 4X/DAY 30 Days #150 cap 09/24/19 [History Last Taken Unknown] duloxetine 30 mg capsule,delayed release 30 mg PO DAILY 09/22/20 [History Last Taken Unknown] turmeric 500 mg PO DAILY 12/17/20 [History Last Taken Unknown] tramadol 50 mg PO .4-6 HOURS PRN PRN 7 Days #60 tab 02/10/21 [Rx Last Taken Unknown] acetaminophen 1,000 mg PO Q8 02/11/21 [History Last Taken Unknown] aspirin 81 mg PO BID 02/11/21 [History Last Taken Unknown] Allergy/AdvReac Type Severity Reaction Status Date / Time bacitracin Allergy Rash Verified 02/10/21 20:16 [From Neosporin ([id number])] bacitracin zinc Allergy Rash Verified 02/10/21 20:16 [From Neosporin ([id number])] neomycin sulfate Allergy Rash Verified 02/10/21 20:16 [From Neosporin ([id number])] polymyxin B Allergy Rash Verified 02/10/21 20:16 [From Neosporin ([id number])] sulfamethoxazole Allergy Itching Verified 02/10/21 20:16 [From Bactrim] trimethoprim [From Bactrim] Allergy Itching Verified 02/10/21 20:16 codeine AdvReac Nausea Verified 02/10/21 20:16 milk AdvReac Nausea/Vom/ Verified 02/10/21 20:16 Diarrhea Family History Father No problems noted. Mother No problems noted. Surgical History Amputated toe of right foot Deviated septum History of appendectomy History of cardiac catheterization History of cholecystectomy History of hysterectomy History of neck surgery History of tonsillectomy History of total right knee replacement (TKR) Hx of cystoscopy Hx of fusion of cervical spine Social History Smoking Status: Former smoker alcohol intake: never substance use type: does not use caffeine: No what type of physical activity do you participate in: other details: physical therapy seatbelt use: always do you feel safe at home: Yes Vital Signs Vital Signs Vital Signs: 02/10/21 20:12 02/10/21 22:16 02/11/21 01:08 Temperature 97 F L 97 F L Temperature Source Temporal Temporal Pulse Rate 109 H 74 74 Respiratory Rate 16 18 18 Respiratory Effort Respiratory Depth Respiratory Pattern Blood Pressure 124/69 H 132/67 H 132/67 H Blood Pressure Mean 87 88 88 Blood Pressure Source Blood Pressure Position Blood Pressure Location Pulse Ox 95 94 94 Oxygen Delivery Method Room Air Room Air Room Air 02/11/21 02:00 02/11/21 02:24 02/11/21 07:07 Temperature 98.2 F Temperature Source Oral Pulse Rate 66 Respiratory Rate 16 Respiratory Effort Normal Non-Labored Respiratory Depth Normal Respiratory Pattern Normal Blood Pressure 130/57 H Blood Pressure Mean 81 Blood Pressure Source Monitor Blood Pressure Position Semi-Fowlers Blood Pressure Location Left Arm Pulse Ox 96 96 Oxygen Delivery Method Room Air Room Air Room Air 02/11/21 08:45 02/11/21 08:48 Temperature 97.9 F Temperature Source Oral Pulse Rate 80 Respiratory Rate 16 16 Respiratory Effort Normal Respiratory Depth Normal Respiratory Pattern Normal Blood Pressure 121/57 H Blood Pressure Mean 78 Blood Pressure Source Monitor Blood Pressure Position Semi-Fowlers Blood Pressure Location Left Arm Pulse Ox 91 91 Oxygen Delivery Method Room Air Room Air Weight Weight: 90 kg Body Mass Index (BMI) 32.0 Physical Exam Narrative Patient resting comfortably in bed No signs of acute distress Satting well on room air Limb is warm to touch, Sensation intact throughout entire lower extremity, including saphenous, sural, superficial and deep peroneal, and tibial distribution. DP/PT pulses bounding. Incision with mild expected postoperative edema throughout. No drainage appreciated. Ariana in place Skin edges well approximated with ariana. Calf nontender to palpation, no erythema, no edema. [facility] Lab / Micro Data Result Diagrams: 02/10/21 23:01 02/10/21 23:01 Labs: Laboratory Results - last 24 hr 02/10/21 23:01: WBC 11.4 H, RBC 3.94 L, Hgb 12.7, Hct 39.8, MCV 101.0 H, MCH 32.2 H, MCHC 31.9 L, RDW Std Deviation 49.1 H, RDW Coeff of Robert 13.2, Plt Count 266, MPV 10.2, Immature Gran % (Auto) 1.200 H, Neut % (Auto) 72.4 H, Lymph % (Auto) 17.7 L, [place] % (Auto) 7.9, Eos % (Auto) 0.4, Baso % (Auto) 0.4, Absolute Neuts (auto) 8.3 H, Absolute Lymphs (auto) 2.02, Nucleated RBC % 0 02/10/21 23:01: Sodium 145, Potassium 3.9, Chloride 110 H, Carbon Dioxide 28.0, Anion Gap 7, BUN 16, Creatinine 0.58, Estim Creat Clear Calc 40.60, Est GFR (MDRD) Af Amer 129, Est GFR (MDRD) Non-Af 107, BUN/Creatinine Ratio 27.8 H, Gl ucose 108 H, Calcium 8.7 Assessment & Plan Assessment/Plan (1) S/P total knee arthroplasty: QUALIFIERS: Laterality: right Qualified Code(s): Z96.651 - Presence of right artificial knee joint PLAN: 1. Continue PT OT 2. Continue ariana will be removed in office at postop day 14 3. continue Tylenol scheduled 1000 mg every 8 hours. Oxycodone as needed for pain control. May add an anti-inflammatory if patient tolerates and no contraindications. 4. No concern for postoperative infection 5. Okay for discharge from orthopedic standpoint 6. follow-up as per previous discharge instructions.
[2021-02-11 14:06] VITALS: BP 121/54; PULSE 77; RESP 16; TEMP 36.7; O2SAT 92
--- NOTE | 2021-02-11 15:53 | PCM.DC.SUM ---
Providers Date of Admission: 02/10/21 Primary Care Physician: Dr. Nahomy Bettencourt MD Consultations 02/11/21 10:12 Consult: Orthopedics Routine Consulting Provider: Mehrdad Bone Reason for Consult: increased pain, redness, warmth, 3 day po EMERGENT Consult: No MD Notified: Yes Date Notified: 02/11/21 Time Notified: 10:13 Method of Notification: Verbal Reason For Visit: DEBILITY Diagnosis Discharge Diagnosis (1) S/P total knee arthroplasty: Status: Acute Code(s): Z96.659 - Presence of unspecified artificial knee joint Qualifiers: Laterality: right Qualified Code(s): Z96.651 - Presence of right artificial knee joint Medications at Discharge Home Medications biotin 1,000 mg PO DAILY 11/21/14 lisinopril 20 mg PO DAILY 11/21/14 tramadol 50 mg tablet 50 mg PO QDAY PRN tab 09/08/17 cholecalciferol (vitamin D3) 50 mcg (2,000 unit) capsule 2,000 unit PO DAILY 09/13/18 linaclotide 145 mcg capsule 145 mcg PO PRN PRN 60 Days cap 09/13/18 metformin 500 mg tablet 500 mg PO BID 09/13/18 vitamin B complex 1 tab PO BID 09/13/18 gabapentin 300 mg capsule 600 mg PO 4X/DAY 30 Days #150 cap 09/24/19 duloxetine 30 mg capsule,delayed release 30 mg PO DAILY 09/22/20 turmeric 500 mg PO DAILY 12/17/20 acetaminophen 1,000 mg PO Q8 02/11/21 aspirin 81 mg PO BID 02/11/21 enoxaparin 40 mg SUBCUT DAILY #4 ml 02/11/21 tramadol 50 mg PO .4-6 HOURS PRN PRN 7 Days #6 tab 02/11/21 Hospital Course Operations None Procedures None Summary of Care Provided Minutes Spent on Discharge: 38 Hospital Course: Mrs. Medrano is an 80-year-old white female who recently underwent a right total knee arthroplasty on 02/09/2021 and was discharged on 02/10/2021 to the [facility]. She represented to the emergency department on 02/11/2020 1 in the evening after being dissatisfied with the [facility] is a retirement for her rehabilitation. She left AGAINST MEDICAL ADVICE shortly after arriving and attributes this to poor care and was upset that the nurses had a meeting at the time she arrived. She also reported poor logistics at the [facility] on admission. She arrived to the emergency department too late for case management to find another place and therefore was admitted to the medical surgical floor. She was having some increased pain in that joint and was reevaluated by orthopedic surgery and they had no concerns. Ortho cleared her for discharge and we were able to find her placement in TCU for continued rehab services. She is to continue 81 mg of aspirin twice daily for DVT prophylaxis and given her limited mobility I did place her on enoxaparin and will continue that for at least 1 week depending on how she performs with therapy. She was otherwise stable throughout her course of stay. Discharge diagnoses: Right knee osteoarthritis status post TKA Right knee pain Leukocytosis-likely reactive OA Hypertension DM-2 Neuropathy Depression Vitamin D deficiency Physical Exam Const alert, oriented x3 and no apparent distress Constitutional Narrative: Obese elderly white female sitting up in bed, appears to be in mild discomfort at the right knee but otherwise looks stable and well General Appearance: cooperative, comfortable, well kempt and well developed Orientation / Consciousness: awake Exam Limitations: no limitations Nutritional Appearance: obese HEENT normocephalic, head/scalp atraumatic, hearing grossly normal bilaterally and moist oral mucous membranes Eyes PERRL, EOMs intact bilaterally and conjunctivae normal Neck no lymphadenopathy, supple and no JVD Neck Narrative: Trachea midline no thyroid enlargement Resp normal respiratory effort, no retractions, no use of accessory muscles and clear to auscultation bilaterally Auscultation: Negative for crackles, rales, rhonchi or wheezes Cardio regular rate, regular rhythm, S1 normal heart sound, S2 normal heart sound, no murmurs, no rub, no gallops, no clicks and no JVD GI normal to inspection, nondistended, normoactive bowel sounds, soft to palpation, non-tender and non-distended Extremity no clubbing, cyanosis or edema Skin no rashes or lesions noted, skin turgor normal and no jaundice Skin Narrative: Small punctate open area lateral right knee with serous drainage, no signs of infection, surgical wound with dressing in place and no marked drainage noted on bandage Neuro oriented x3, CN's II-XII intact bilaterally and moves all extremities Neuro Narrative: Pain with movement right lower extremity at the knee joint Sensorium / Orientation: awake and alert Psych affect normal Weight / BMI Weight Weight: 90 kg Body Mass Index (BMI) 32.0 ABG / Lab / Microbiology Data Result Diagrams: 02/10/21 23:01 02/10/21 23:01 Laboratory: Laboratory Results - last 24 hr 02/10/21 23:01: WBC 11.4 H, RBC 3.94 L, Hgb 12.7, Hct 39.8, MCV 101.0 H, MCH 32.2 H, MCHC 31.9 L, RDW Std Deviation 49.1 H, RDW Coeff of Robert 13.2, Plt Count 266, MPV 10.2, Immature Gran % (Auto) 1.200 H, Neut % (Auto) 72.4 H, Lymph % (Auto) 17.7 L, [place] % (Auto) 7.9, Eos % (Auto) 0.4, Baso % (Auto) 0.4, Absolute Neuts (auto) 8.3 H, Absolute Lymphs (auto) 2.02, Nucleated RBC % 0 02/10/21 23:01: Sodium 145, Potassium 3.9, Chloride 110 H, Carbon Dioxide 28.0, Anion Gap 7, BUN 16, Creatinine 0.58, Estim Creat Clear Calc 40.60, Est GFR (MDRD) Af Amer 129, Est GFR (MDRD) Non-Af 107, BUN/Creatinine Ratio 27.8 H, Glucose 108 H, Calcium 8.7 Radiography Diagnostic Testing: Radiology Impression Knee X-Ray 02/11/21 11:00 IMPRESSION: Right total knee arthroplasty with decreased soft tissue gas without other interval change. Electronically Signed: Fili Blackwell MD at 14:30 EDT Tel , Service support , D/C Instructions Discharge Diet: Low fat / Low cholesterol and 1800 Calorie Control Diet Discharge Activity: May Not Drive, May Shower and Use Walker Weight Bearing Status: Weight bearing as tolerated Keep extremity elevated above heart level: Operative Extremity Meaningful Use Info Meaningful Use Diagnoses (Choose all that apply): None applicable Discharge Plan Admission Admit Date/Time: 02/10/21 23:19 Primary Reason for Your Visit: Right knee pain status post total knee arthroplasty Attending Provider: Gracy Mendez Primary Care Provider: Nahomy Bettencourt Consulting Providers: Mehrdad Bone Discharge Orders/Prescriptions Prescriptions: New enoxaparin 40 mg/0.4 mL Syringe 40 mg subcut DAILY Qty: 4 RF: 0 Continued Linzess 145 mcg capsule 145 mcg PO PRN PRN (Reason: STOOL) 60 Days RF: 0 gabapentin 300 mg capsule 600 mg PO 4X/DAY 30 Days Qty: 150 RF: 0 metformin 500 mg tablet 500 mg PO BID RF: 0 cholecalciferol (vitamin D3) 2,000 unit capsule 2,000 unit PO DAILY RF: 0 vitamin B complex [B Complex 1] tablet 1 tab PO BID RF: 0 duloxetine 30 mg capsule,delayed release(DR/EC) 30 mg PO DAILY RF: 0 lisinopril 20 MG tablet 20 mg PO DAILY RF: 0 biotin 1 MG capsule 1,000 mg PO DAILY RF: 0 turmeric 400 mg Capsule 500 mg PO DAILY RF: 0 acetaminophen 500 mg tablet 1,000 mg PO Q8 RF: 0 aspirin 81 mg tablet,chewable 81 mg PO BID RF: 0 tramadol 50 mg Tablet 50 mg PO .4-6 HOURS PRN PRN (Reason: Pain 1-3) 7 Days Qty: 6 RF: 0 Held tramadol 50 mg tablet 50 mg PO QDAY PRN (Reason: Pain) RF: 0 Hold Instructions: Until discharge from TCU Referrals / Follow Up: Nahomy Bettencourt MD [Primary Care Provider] - Within 1 Month Mehrdad Bone DO [STAFF PHYSICIAN] - See Referral Note (As directed) Disposition Disposition (needs filled in before D/C Order can be placed): [facility] Facility Charges/Coding Visit Charges Inpatient E&M: 27607 SNF Disch >30 Min
[2021-02-11] MEDS: Senna/Docusate Sodium 1 Tablet 2 TABLET PO (16:04)
--- NOTE | 2021-02-11 16:07 | TREXTCAR_ITS ---
Diet 02/11/21 02:00 Diet: Cardiac: Calorie-Controlled How many daily calories?: 1800 calorie Routine Orders/Code Status Suppository Frequency: Daily PRN O2 Frequency: PRN Keep PO Greater than or Equal to (%): 92 Routine Lab Work: CBC and BMP Code Status: Full Code Wound(s) rt knee: Wound Type: Surgical Incision Therapies Weight Bearing: Full weight bearing Extremity Affected:: Right Lower Physical Therapy: Eval and Treat Occupational Therapy: Eval and Treat Problem/Diagnosis (1) S/P total knee arthroplasty: Status: Acute Allergies/Procedures Done in Hospital Allergies bacitracin [From Neosporin ([id number])] Allergy (Verified 02/10/21 20:16) Rash SWOLLEN, ITCHING bacitracin zinc [From Neosporin ([id number])] Allergy (Verified 02/10/21 20:16) Rash SWOLLEN, ITCHING neomycin sulfate [From Neosporin ([id number])] Allergy (Verified 02/10/21 20:16) Rash SWOLLEN, ITCHING polymyxin B [From Neosporin ([id number])] Allergy (Verified 02/10/21 20:16) Rash SWOLLEN, ITCHING sulfamethoxazole [From Bactrim] Allergy (Verified 02/10/21 20:16) Itching trimethoprim [From Bactrim] Allergy (Verified 02/10/21 20:16) Itching codeine Adverse Reaction (Verified 02/10/21 20:16) Nausea milk Adverse Reaction (Verified 02/10/21 20:16) Nausea/Vom/Diarrhea Procedures: None Type of Care/Length of Stay Estimated LOS: Convalescent Care Less Than 30 days Type of Care Needed: Skilled Rehab Potential: Good Prognosis: Good Additional Orders/Day of Discharge Day of Discharge: 02/11/21 Discharge Plan Admission Admit Date/Time: 02/10/21 23:19 Primary Reason for Your Visit: Right knee pain status post total knee arthroplasty Attending Provider: Gracy Mendez Primary Care Provider: Nahomy Bettencourt Consulting Providers: Mehrdad Bone Discharge Orders/Prescriptions Prescriptions: New enoxaparin 40 mg/0.4 mL Syringe 40 mg subcut DAILY Qty: 4 RF: 0 Continued Linzess 145 mcg capsule 145 mcg PO PRN PRN (Reason: STOOL) 60 Days RF: 0 gabapentin 300 mg capsule 600 mg PO 4X/DAY 30 Days Qty: 150 RF: 0 metformin 500 mg tablet 500 mg PO BID RF: 0 cholecalciferol (vitamin D3) 2,000 unit capsule 2,000 unit PO DAILY RF: 0 vitamin B complex [B Complex 1] tablet 1 tab PO BID RF: 0 duloxetine 30 mg capsule,delayed release(DR/EC) 30 mg PO DAILY RF: 0 lisinopril 20 MG tablet 20 mg PO DAILY RF: 0 biotin 1 MG capsule 1,000 mg PO DAILY RF: 0 turmeric 400 mg Capsule 500 mg PO DAILY RF: 0 acetaminophen 500 mg tablet 1,000 mg PO Q8 RF: 0 aspirin 81 mg tablet,chewable 81 mg PO BID RF: 0 tramadol 50 mg Tablet 50 mg PO .4-6 HOURS PRN PRN (Reason: Pain 1-3) 7 Days Qty: 6 RF: 0 Held tramadol 50 mg tablet 50 mg PO QDAY PRN (Reason: Pain) RF: 0 Hold Instructions: Until discharge from TCU Referrals / Follow Up: Nahomy Bettencourt MD [Primary Care Provider] - Within 1 Month Mehrdad Bone DO [STAFF PHYSICIAN] - See Referral Note (As directed) Disposition Disposition (needs filled in before D/C Order can be placed): [facility] Facility
== END 2021-02-11 18:53 | disposition skilled nursing facility (03) ==
LOC: ED 23:27 → MS3 02-11 00:54
PROVIDERS: Admitting Provider Hospitalist; Emergency Provider Emergency Medicine; PCP Family Medicine; Visit Provider Internal Medicine
DX: R53.81 Other malaise (principal); I25.10 Atherosclerotic heart disease of native coronary artery without angina pectoris; I10 Essential (primary) hypertension; G40.909 Epilepsy, unspecified, not intractable, without status epilepticus; E11.40 Type 2 diabetes mellitus with diabetic neuropathy, unspecified; I48.0 Paroxysmal atrial fibrillation; D72.829 Elevated white blood cell count, unspecified; E11.65 Type 2 diabetes mellitus with hyperglycemia; Z96.651 Presence of right artificial knee joint; Z79.4 Long term (current) use of insulin; Z87.891 Personal history of nicotine dependence; Z79.82 Long term (current) use of aspirin; Z79.899 Other long term (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
CPT/HCPCS: 73564; 80048; 85025; 87426; 96372; 96374; 96376; 97162; 97166; 99218; 99285; A4216; G0378

== ENCOUNTER 2021-02-11 18:45 | Inpatient (IN) | payer MEDICARE, OTHER, SELFPAY ==
--- NOTE | 2021-02-11 20:03 | NURSING ---
Per admissions, Linzess to be held due to patient unable to provide home supply. notified.
[2021-02-11 20:37] VITALS: BMI 32.6
[2021-02-11 20:46] VITALS: BP 133/54; PULSE 67; RESP 20; TEMP 36.6; O2SAT 94
[2021-02-11] MEDS: Gabapentin 600 MG Tablet PO (21:02)
[2021-02-11] MEDS: Acetaminophen 500 MG Tablet 1000 MG PO (21:02)
--- NOTE | 2021-02-11 21:14 | NURSING ---
Addendum entered by Digna Wolfe 02/12/21 02:06: Surgical dressings x2 dry and intact to right knee, redness observed to surrounding area. Original Note: Outward rotation noted to Right foot upon assessment. Pt. states outward rotation not new and has been assessed by Dr Hernandes and . Pt. states thinks it's due to my neuropathy.
--- NOTE | 2021-02-11 21:15 | HP.PCM_ITS ---
HPI - General General Date of Admission: 02/11/21 HPI Narrative 02/09/2021 Dr. Bone performed right total knee arthroplasty. 02/10/2021 80 year old female with below past medical history presented to [facility] after right total knee arthroplasty. 1 day prior, she was discharged [facility]. took [facility] of the [facility]. Unable to get help going to bathroom, pain uncontrolled. Unable to care for self. Morphine, Zofran given. 02/10/2021 Admit to Hospital. PT/OT for debility. Tylenol, Tramadol for pain control. Morphine as needed for pain. Bowel regimen. Blood pressure stable. DVT prophylaxis. 02/11/2021 Admit to TCU with debility, here for rehabilitation, strengthening, prior to discharge home with . [facility] Medical History Ambulates with cane Arthritis Atherosclerotic heart disease of [place] coronary artery without angina pectoris Back pain Cardiology follow-up encounter Chronic cough Diabetes Dietary restriction DM2 (diabetes mellitus, type 2) Epilepsy Essential hypertension Former smoker History of atrial fibrillation History of echocardiogram History of left heart catheterization (LHC) (~11/17/18) History of pain when walking History of steroid therapy History of stress test Hx of back injury Hx of vaginal delivery Hypertension Injury of back Injury of head and neck Neuropathy Neuropathy, diabetic Paroxysmal atrial fibrillation Wears glasses Home Medications biotin 1,000 mg PO DAILY 11/21/14 [History Last Taken 01/24/16 17:00] lisinopril 20 mg PO DAILY 11/21/14 [History Last Taken 11/17/18] tramadol 50 mg tablet 50 mg PO QDAY PRN tab 09/08/17 [History Last Taken Unknown] cholecalciferol (vitamin D3) 50 mcg (2,000 unit) capsule 2,000 unit PO DAILY 09/13/18 [History Last Taken Unknown] linaclotide 145 mcg capsule 145 mcg PO PRN PRN 60 Days cap 09/13/18 [History Last Taken Unknown] metformin 500 mg tablet 500 mg PO BID 09/13/18 [History Last Taken Unknown] vitamin B complex 1 tab PO BID 09/13/18 [History Last Taken Unknown] gabapentin 300 mg capsule 600 mg PO 4X/DAY 30 Days #150 cap 09/24/19 [History Last Taken Unknown] duloxetine 30 mg capsule,delayed release 30 mg PO DAILY 09/22/20 [History Last Taken Unknown] turmeric 500 mg PO DAILY 12/17/20 [History Last Taken Unknown] acetaminophen 1,000 mg PO Q8 02/11/21 [History Last Taken Unknown] aspirin 81 mg PO BID 02/11/21 [History Last Taken Unknown] enoxaparin 40 mg SUBCUT DAILY 02/11/21 [History Last Taken Unknown] tramadol 50 mg PO .4-6 HOURS PRN PRN 7 Days #6 tab 02/11/21 [Rx Last Taken Unknown] Allergy/AdvReac Type Severity Reaction Status Date / Time bacitracin Allergy Rash Verified 02/10/21 20:16 [From Neosporin ([id number])] bacitracin zinc Allergy Rash Verified 02/10/21 20:16 [From Neosporin ([id number]-iwf-[id number])] neomycin sulfate Allergy Rash Verified 02/10/21 20:16 [From Neosporin ([id number]-fkk-[id number])] polymyxin B Allergy Rash Verified 02/10/21 20:16 [From Neosporin (abd-jyp-pietf)] sulfamethoxazole Allergy Itching Verified 02/10/21 20:16 [From Bactrim] trimethoprim [From Bactrim] Allergy Itching Verified 02/10/21 20:16 codeine AdvReac Nausea Verified 02/10/21 20:16 milk AdvReac Nausea/Vom/ Verified 02/10/21 20:16 Diarrhea Family History Father No problems noted. Mother No problems noted. Surgical History Amputated toe of right foot Deviated septum History of appendectomy History of cardiac catheterization History of cholecystectomy History of hysterectomy History of neck surgery History of tonsillectomy History of total right knee replacement (TKR) Hx of cystoscopy Hx of fusion of cervical spine Social History (Updated 02/11/21 @ 21:[address] Arsenio Pride MD) household members: spouse Smoking Status: Former smoker alcohol intake: never substance use type: does not use caffeine: No what type of physical activity do you participate in: other details: physical therapy seatbelt use: always do you feel safe at home: Yes ROS Constitutional Constitutional: Denies chills, fever(s) or weight gain ENT HEENT: Denies headache(s), nasal congestion or nasal discharge Cardiovascular Cardiovascular: Denies chest pain or palpitations Respiratory/Chest Respiratory/Chest: Denies cough, excessive phlegm production or shortness of breath with exertion Gastrointestinal Gastrointestinal: Denies abdominal pain, nausea or vomiting Genitourinary Genitourinary: Denies dysuria Musculoskeletal Musculoskeletal: Denies joint pain or joint swelling Integumentary Integumentary: Denies rash or wounds Neurologic Neurologic: Denies focal weakness, numbness or tingling Psychiatric Psychiatric: Reports auditory hallucinations; Denies anxiety, depression, homicidal ideation or suicidal ideation Vital Signs Vital Signs Vital Signs: Weight Weight: 91.7 kg Body Mass Index (BMI) 32.6 Physical Exam Const alert and oriented x3 General Appearance: cooperative HEENT normocephalic Eyes PERRL and EOMs intact bilaterally Neck supple, no JVD and no carotid bruits Resp normal respiratory effort, normal air movement and clear to auscultation bilaterally Cardio regular rate and regular rhythm GI normal to inspection, nondistended, normoactive bowel sounds, non-tender and non-distended Extremity normal capillary refill General Extremity: Negative for edema Skin no rashes or lesions noted General Skin Exam: no breakdown Psych affect normal Appearance: appropriate Assessment & Plan Assessment/Plan (1) Debility: (2) S/P total knee arthroplasty: QUALIFIERS: Laterality: right Qualified Code(s): Z96.651 - Presence of right artificial knee joint (3) Inability to ambulate due to knee: (4) Hypertension: (5) Vitamin D deficiency: (6) Chronic constipation: (7) Diabetes mellitus: (8) Diabetic polyneuropathy: (9) Depression: PLAN: 80 year old female with below past medical history underwent right total knee replacement 02/09/[address] Bone, admitted to TCU with debility, here for rehabilitation, strengthening, prior to discharge home with . * Debility - PT/OT. * Pain - Tylenol 1000mg Q8H, Tramadol 50mg Q4H PRN pain (1-5), Oxycodone 2.5mg Q4H PRN pain (6-10). * Bowel - Miralax 17gm daily, Senna/colace 2 tablets twice daily, Dulcolax 10mg daily PRN. * Adult immunization - Administer prevnar 13, pneumovax 23, fluzone, covid19 vaccine as appropriate. * DVT prophylaxis - Aspirin 81mg twice daily. * Vitamin D deficiency - D3 50mcg daily. * Depression - Duloxetine 30mg daily. * Diabetic polyneuropathy - Gabapentin 600mg 4x/day. * Hypertension - Lisinopril 20mg daily. * Diabetes Mellitus II - Metformin 500mg twice daily. * Vitamin B deficiency - Vitamin B complex 1 tablet twice daily.
[2021-02-12] MEDS: traMADol 50 MG Tablet PO ×2 (01:59→20:37)
[2021-02-12 05:20] VITALS: BP 125/55; PULSE 86
[2021-02-12] MEDS: Acetaminophen 500 MG Tablet 1000 MG PO ×3 (05:22→20:38)
[2021-02-12] MEDS: Senna/Docusate Sodium 1 Tablet 2 TABLET PO (05:23)
[2021-02-12] MEDS: DULoxetine Hcl 30 MG Capsule PO (05:23)
[2021-02-12] MEDS: Gabapentin 600 MG Tablet PO ×4 (05:23→20:38)
[2021-02-12] MEDS: Polyethylene Glycol 3350 17 GM PACKET PO (05:23)
[2021-02-12] MEDS: Lisinopril 20 MG Tablet PO (05:23)
[2021-02-12] MEDS: Cholecalciferol (VIT D3) 25 MCG TABLET (1,000 UNITS) 50 MCG PO (05:23)
[2021-02-12 05:52] LABS: Absolute Lymphocyte Count 1.56 X10^3/uL (0.83-4.51); Absolute Neutrophil Count 5.9 X10^3/uL (2.0-7.7); Basophil# 0.06 X10^3/uL; Basophil% 0.7 % (0-1); Eosinophil# 0.28 X10^3/uL; Eosinophils% 3.3 % (0-5); Hematocrit 38.3 % (37-47); Hemoglobin 11.7 g/dL (12.0-15.0); Lymphocyte # 1.56 X10^3/ul (0.83-4.51); Lymphocyte % 18.3 % (19-41); Mean Corp Hgb Conc 30.5 g/dL (32-36); Mean Corpuscular Hgb 31.5 pg (27.0-32.0); Mean Platelet Vol. 9.6 fl (6.2-12.0); Monocyte# 0.69 X10^3/uL; Monocyte% 8.1 % (0-10); NRBC Flagged by Analyzer 0 % (0-5); Neutrophil % 69.2 % (47-70); Platelet Count 236 K/mm3 (150-450); RBC Distribution Width CV 13.4 % (11.6-14.6); RBC Distribution Width SD 50.8 fl (35.1-43.9); Red Blood Count 3.72 M/mm3 (4.2-5.4); White Blood Count 8.5 K/mm3 (4.4-11.0)
[2021-02-12 06:16] LABS: Anion Gap 4 (5-15); BUN 13 mg/dL (7-18); BUN/Creat Ratio 24.3 RATIO (10-20); Chloride 106 mmol/L (98-107); Creatinine, Serum 0.54 mg/dL (0.55-1.02); EST Glomerular Filtration Rate 116 mL/min (>60); Est Glom Filt Rate - Afr Amer 140 mL/min (>60); Glucose 104 mg/dL (74-106); Potassium 4.1 mmol/L (3.5-5.1); Sodium Level 140 mmol/L (136-145)
[2021-02-12 06:26] LABS: Bedside Glucose 108 mg/dL (70-110)
[2021-02-12] MEDS: Aspirin 81 MG TAB.CHEW PO ×2 (08:03→17:40)
[2021-02-12] MEDS: Vitamin B Comp W-C Capsule 1 CAP PO ×2 (08:03→17:40)
[2021-02-12] MEDS: metFORMIN HCl 500 MG Tablet PO ×2 (08:03→17:40)
[2021-02-12] MEDS: Magnesium Citrate 300 ML PO (08:58)
[2021-02-12] MEDS: Tuberculin,Purif.prot.deriv. 50 TU/ML Vial 0.1 ML ID (11:57)
[2021-02-12 14:36] VITALS: BP 111/54; PULSE 86; RESP 16; TEMP 36.7; O2SAT 94
[2021-02-12 14:44] VITALS: PULSE 86; RESP 16; O2SAT 94
--- NOTE | 2021-02-12 16:15 | PCM.PN.RX ---
Progress Note - Pharmacy Subjective: TCU ADMISSION Objective: Allergies bacitracin [From Neosporin ([id number])] Allergy (Verified 02/10/21 20:16) Rash SWOLLEN, ITCHING bacitracin zinc [From Neosporin (lsp-ard-tuebt)] Allergy (Verified 02/10/21 20:16) Rash SWOLLEN, ITCHING neomycin sulfate [From Neosporin (fnr-xlo-aqdyu)] Allergy (Verified 02/10/21 20:16) Rash SWOLLEN, ITCHING polymyxin B [From Neosporin (hau-iwc-nwjqg)] Allergy (Verified 02/10/21 20:16) Rash SWOLLEN, ITCHING sulfamethoxazole [From Bactrim] Allergy (Verified 02/10/21 20:16) Itching trimethoprim [From Bactrim] Allergy (Verified 02/10/21 20:16) Itching codeine Adverse Reaction (Verified 02/10/21 20:16) Nausea milk Adverse Reaction (Verified 02/10/21 20:16) Nausea/Vom/Diarrhea Current Medications Generic Name Dose Route Start Last Admin Trade Name Freq PRN Reason Stop Dose Admin Acetaminophen 1,000 mg 02/11/21 22:00 02/12/21 13:04 Acetaminophen 500 Mg Tablet PO 1,000 mg Q8 ADÁN Administration Aspirin 81 mg 02/12/21 08:00 02/12/21 08:03 Aspirin 81 Mg Tab.Chew PO 81 mg BIDCM [facility] Administration Bisacodyl 10 mg 02/11/21 21:26 Bisacodyl 5 Mg Tablet PO DAILY PRN Constipation Cholecalciferol 50 mcg 02/12/21 06:00 02/12/21 05:23 Cholecalciferol (Vit D3) 25 Mcg Tablet (1,000 Units) PO 50 mcg DAILY ADÁN Administration Duloxetine HCl 30 mg 02/12/21 06:00 02/12/21 05:23 Duloxetine Hcl 30 Mg Capsule PO 30 mg DAILY ADÁN Administration Gabapentin 600 mg 02/11/21 22:00 02/12/21 11:01 Gabapentin 600 Mg Tablet PO 600 mg 4X/DAY ADÁN Administration Lisinopril 20 mg 02/12/21 06:00 02/12/21 05:23 Lisinopril 20 Mg Tablet PO 20 mg DAILY ADÁN Administration Metformin HCl 500 mg 02/12/21 08:00 02/12/21 08:03 Metformin Hcl 500 Mg Tablet PO 500 mg BIDCM ADÁN Administration Multivitamins 1 capsule 02/12/21 08:00 02/12/21 08:03 Vitamin B Comp W-C Capsule PO 1 capsule BIDCM ADÁN Administration Oxycodone HCl 2.5 mg 02/11/21 21:26 Oxycodone 5 Mg Tablet PO Q4H PRN PRN Pain Score 6-10 Polyethylene Glycol 17 gm 02/12/21 06:00 02/12/21 05:23 Polyethylene Glycol 3350 17 Gm Packet PO 17 gm DAILY ADÁN Administration Senna/Docusate Sodium 2 tablet 02/11/21 21:30 02/12/21 05:23 Senna/Docusate Sodium 1 Tablet PO 2 tablet BID ADÁN Administration Tramadol HCl 50 mg 02/11/21 21:27 02/12/21 01:59 Tramadol 50 Mg Tablet PO 50 mg Q4H PRN PRN Administration Pain Score 1-5 Tuberculin PPD 0.1 ml 02/19/21 10:00 Tuberculin,Purif.Prot.Deriv. 50 Tu/Ml Vial ID 02/19/21 10:01 X1 ONE Problem List (Last Reviewed 02/11/21 @ 21:[address] Arsenio Pride MD) Depression (Acute) Diabetic polyneuropathy (Acute) Diabetes mellitus (Acute) Chronic constipation (Chronic) Vitamin D deficiency (Acute) Hypertension (Chronic) Inability to ambulate due to knee (Acute) Debility (Acute) S/P total knee arthroplasty (Acute) Vital Signs Temp Pulse Resp BP Pulse Ox 98.0 F 86 16 111/54 L 94 02/12/21 14:36 02/12/21 14:44 02/12/21 14:44 02/12/21 14:36 02/12/21 14:44 Oxygen Delivery Method Room Air Weight: 91.7 kg Body Mass Index (BMI) 32.6 Sodium 140 mmol/L (136-145) 02/12/21 05:39 Potassium 4.1 mmol/L (3.5-5.1) 02/12/21 05:39 Chloride 106 mmol/L (98-107) 02/12/21 05:39 Carbon Dioxide 30.0 mmol/L (21.0-32.0) 02/12/21 05:39 Anion Gap 4 (5-15) L 02/12/21 05:39 BUN 13 mg/dL (7-18) 02/12/21 05:39 Creatinine 0.54 mg/dL (0.55-1.02) L 02/12/21 05:39 Est GFR (MDRD) Af Amer 140 mL/min (>60) 02/12/21 05:39 Est GFR (MDRD) Non-Af 116 mL/min (>60) 02/12/21 05:39 BUN/Creatinine Ratio 24.3 RATIO (10-20) H 02/12/21 05:39 Glucose 104 mg/dL (74-106) 02/12/21 05:39 Assessment/Plan: 1. Pain: Tylenol 1000mg PO Q8h, Tramadol 50mg PO Q4h PRN Pain 1-5, Oxycodone 2.5mg PO Q4h PRN Pain 6-10. Please continue to monitor for increased/decreased S/S pain, renal function, oversedation. 2. HTN: Lisinopril 20mg PO Daily. Please continue to monitor renal function, BP, pulse, electrolytes. 3. DM II: Metformin 500mg PO BID. Please continue to monitor S/S hypoglycemia, diarrhea, nausea, renal function. 4. Diabetic polyneuropathy: Gabapentin 600mg PO 4x/day. This is a Beer's Criteria medication that can increase falls in the elderly. Based on renal function, please consider decreasing dose to 600mg PO BID, thank you. 5. DVT Prophylaxis: Aspirin 81mg PO BID. Please continue to monitor for S/S bleeding/bruising. 6. General Wellness: Cholecalciferol 50mcg PO Daily, Vitamin B complex 1 tab PO BID. Please continue to monitor. Psychotropic Medications: *7. Depression: Cymbalta 30mg PO Daily. Please consider a GDR by 07/2021 if clinically indicated, thank you. Unnecessary Medications: None Bowel Regimen: Miralax 17g PO Daily, Senna/Docusate 2 tab PO BID, Dulcolax 10mg PO Daily PRN. Please continue to monitor for increased/decreased constipation and/or diarrhea. Date of Note:: 02/12/21
[2021-02-13] MEDS: Senna/Docusate Sodium 1 Tablet 2 TABLET PO ×2 (05:48→16:38)
[2021-02-13] MEDS: Polyethylene Glycol 3350 17 GM PACKET PO (05:48)
[2021-02-13] MEDS: Cholecalciferol (VIT D3) 25 MCG TABLET (1,000 UNITS) 50 MCG PO (05:49)
[2021-02-13] MEDS: Acetaminophen 500 MG Tablet 1000 MG PO ×3 (05:49→20:49)
[2021-02-13] MEDS: DULoxetine Hcl 30 MG Capsule PO (05:49)
[2021-02-13] MEDS: Lisinopril 20 MG Tablet PO (05:49)
[2021-02-13] MEDS: Gabapentin 600 MG Tablet PO ×4 (05:49→20:49)
[2021-02-13 06:26] LABS: Bedside Glucose 103 mg/dL (70-110)
[2021-02-13] MEDS: Aspirin 81 MG TAB.CHEW PO ×2 (08:09→16:37)
[2021-02-13] MEDS: Vitamin B Comp W-C Capsule 1 CAP PO ×2 (08:09→16:36)
[2021-02-13] MEDS: metFORMIN HCl 500 MG Tablet PO ×2 (08:09→16:37)
[2021-02-13 15:55] VITALS: BP 120/66; PULSE 87; RESP 16; TEMP 36.5; O2SAT 92
--- NOTE | 2021-02-13 16:59 | CASEMGMT ---
Social Work Met with patient for initial assessment. Discussed code status. Pt confirmed full code. MOLST form completed, communication to , placed in chart. Explained Medicare benefit. Encouraged to contact secondary insurance to ensure copay coverage. The goal is for pt to return home with at [facility]. can only minimally assist as he has back problems. SW to continue to follow. luanne laws, HAZARDOUS WASTE MATERIAL TECHNICIAN TOP TILE DECORATOR
[2021-02-14] MEDS: traMADol 50 MG Tablet PO ×2 (00:10→15:02)
[2021-02-14] MEDS: Cholecalciferol (VIT D3) 25 MCG TABLET (1,000 UNITS) 50 MCG PO (05:24)
[2021-02-14] MEDS: DULoxetine Hcl 30 MG Capsule PO (05:24)
[2021-02-14] MEDS: Gabapentin 600 MG Tablet PO ×4 (05:24→21:02)
[2021-02-14] MEDS: Lisinopril 20 MG Tablet PO (05:25)
[2021-02-14] MEDS: Senna/Docusate Sodium 1 Tablet 2 TABLET PO ×2 (05:25→18:30)
[2021-02-14] MEDS: Acetaminophen 500 MG Tablet 1000 MG PO ×3 (05:25→21:02)
[2021-02-14] MEDS: Polyethylene Glycol 3350 17 GM PACKET PO (05:25)
[2021-02-14 05:26] VITALS: BP 124/68; PULSE 76
[2021-02-14 06:30] LABS: Bedside Glucose 133 mg/dL (70-110)
[2021-02-14] MEDS: Vitamin B Comp W-C Capsule 1 CAP PO ×2 (08:44→16:01)
[2021-02-14] MEDS: Aspirin 81 MG TAB.CHEW PO ×2 (08:44→16:01)
[2021-02-14] MEDS: metFORMIN HCl 500 MG Tablet PO ×2 (08:44→16:01)
[2021-02-14] MEDS: Bisacodyl 5 MG Tablet 10 MG PO (13:29)
--- NOTE | 2021-02-14 20:05 | NURSING ---
Surgical dressing x2 removed from right knee per order. Knee surgical site dry and intact, no redness, no heat, no edema, no drainage with 26 jerry intact. Surgical site distal to knee observed with [address], no redness, no heat, no edema, no drainage. Pt. states looking at it makes me feel like Libby, pt. requests wound to be covered and protected, states I'm clumsy and don't want to bump it on anything. New orders to pad and protect RLE surgical sites.
[2021-02-14 22:00] VITALS: PULSE 77; RESP 16; O2SAT 98
[2021-02-15] MEDS: Acetaminophen 500 MG Tablet 1000 MG PO ×3 (05:55→21:01)
[2021-02-15] MEDS: Polyethylene Glycol 3350 17 GM PACKET PO (05:55)
[2021-02-15] MEDS: Senna/Docusate Sodium 1 Tablet 2 TABLET PO (05:55)
[2021-02-15] MEDS: Lisinopril 20 MG Tablet PO (05:56)
[2021-02-15] MEDS: Cholecalciferol (VIT D3) 25 MCG TABLET (1,000 UNITS) 50 MCG PO (05:56)
[2021-02-15] MEDS: Gabapentin 600 MG Tablet PO ×4 (05:56→21:01)
[2021-02-15] MEDS: DULoxetine Hcl 30 MG Capsule PO (05:56)
[2021-02-15 05:59] VITALS: BP 119/80; PULSE 90
[2021-02-15 06:31] LABS: Bedside Glucose 146 mg/dL (70-110)
[2021-02-15] MEDS: Aspirin 81 MG TAB.CHEW PO ×2 (08:11→16:45)
[2021-02-15] MEDS: Vitamin B Comp W-C Capsule 1 CAP PO ×2 (08:11→16:45)
[2021-02-15] MEDS: metFORMIN HCl 500 MG Tablet PO ×2 (10:44→16:45)
[2021-02-15] MEDS: traMADol 50 MG Tablet PO (15:33)
[2021-02-15 16:00] VITALS: BP 124/56; PULSE 74; RESP 17; TEMP 36.7; O2SAT 96
[2021-02-15] MEDS: oxyCODONE 5 MG Tablet 2.5 MG PO (23:56)
[2021-02-16] MEDS: Polyethylene Glycol 3350 17 GM PACKET PO (05:12)
[2021-02-16] MEDS: traMADol 50 MG Tablet PO (05:12)
[2021-02-16] MEDS: Gabapentin 600 MG Tablet PO ×4 (05:12→20:53)
[2021-02-16] MEDS: Acetaminophen 500 MG Tablet 1000 MG PO ×3 (05:12→20:52)
[2021-02-16] MEDS: Senna/Docusate Sodium 1 Tablet 2 TABLET PO ×2 (05:12→17:11)
[2021-02-16] MEDS: DULoxetine Hcl 30 MG Capsule PO (05:12)
[2021-02-16] MEDS: Lisinopril 20 MG Tablet PO (05:12)
[2021-02-16] MEDS: Cholecalciferol (VIT D3) 25 MCG TABLET (1,000 UNITS) 50 MCG PO (05:13)
[2021-02-16 06:50] LABS: Bedside Glucose 123 mg/dL (70-110)
[2021-02-16 07:34] VITALS: BP 126/73; PULSE 72
[2021-02-16] MEDS: Aspirin 81 MG TAB.CHEW PO ×2 (08:17→17:11)
[2021-02-16] MEDS: Vitamin B Comp W-C Capsule 1 CAP PO ×2 (08:17→17:11)
[2021-02-16] MEDS: metFORMIN HCl 500 MG Tablet PO ×2 (08:17→17:12)
[2021-02-16] MEDS: oxyCODONE 5 MG Tablet 2.5 MG PO (13:56)
[2021-02-16] MEDS: Bisacodyl 5 MG Tablet 10 MG PO (14:56)
[2021-02-16 16:00] VITALS: BP 114/50; PULSE 73; RESP 14; TEMP 36.5; O2SAT 96
--- NOTE | 2021-02-16 17:04 | CHAPLAIN ---
Type of Pastoral Visit _x__ Initial Visit ___ Follow-up Visit ___ On-call Visit ___ General Patient Visit ___ Spiritual Assessment ___ Family Conference ___ Bereavement ___ Rapid Response ___ Code Blue ___ Other (describe below) Pastoral Care Referral From _x__ Patient ___ Family ___ Nurse ___ Physician ___ Lien Searcher ___ Data Warehouse Administrator ___ Other (describe below) Sacrament/Intervention _x__ Active listening ___ Anointing ___ Taoism ___ Bereavement ___ Communion ___ Myla exploration ___ _x__ Life review _x__ Prayer ___ Reconciliation ___ Sacrament of Sick _x__ Supportive presence ___ Wedding ___ Other (describe below) Pastoral Comments patient and spouse in room; spouse has humor and is talkative; pt gives review of her issues, life of the last three years since moving back to [place]; welcomes prayer
[2021-02-16] MEDS: Magnesium Hydroxide 30 ML UDC 15 ML PO (18:26)
[2021-02-16 20:44] VITALS: PULSE 87; RESP 16; O2SAT 94
[2021-02-17] MEDS: traMADol 50 MG Tablet PO ×2 (05:59→23:45)
[2021-02-17] MEDS: Senna/Docusate Sodium 1 Tablet 2 TABLET PO ×2 (06:02→16:58)
[2021-02-17] MEDS: Cholecalciferol (VIT D3) 25 MCG TABLET (1,000 UNITS) 50 MCG PO (06:02)
[2021-02-17] MEDS: Acetaminophen 500 MG Tablet 1000 MG PO ×3 (06:02→21:02)
[2021-02-17] MEDS: DULoxetine Hcl 30 MG Capsule PO (06:03)
[2021-02-17] MEDS: Lisinopril 20 MG Tablet PO (06:03)
[2021-02-17] MEDS: Gabapentin 600 MG Tablet PO ×4 (06:03→21:03)
[2021-02-17 06:05] VITALS: BP 131/56; PULSE 78
[2021-02-17 06:31] LABS: Bedside Glucose 117 mg/dL (70-110)
[2021-02-17] MEDS: metFORMIN HCl 500 MG Tablet PO ×2 (08:30→16:58)
[2021-02-17] MEDS: Aspirin 81 MG TAB.CHEW PO ×2 (08:30→16:58)
[2021-02-17] MEDS: Vitamin B Comp W-C Capsule 1 CAP PO ×2 (08:30→16:58)
--- NOTE | 2021-02-17 12:21 | CASEMGMT ---
Social Work BIMS and PHQ9 interviews completed on this date for MDS assessment. KEMAR Moore
[2021-02-17] MEDS: oxyCODONE 5 MG Tablet 2.5 MG PO (13:17)
[2021-02-17 15:49] VITALS: BP 122/57; PULSE 94; RESP 16; TEMP 36.6; O2SAT 97
[2021-02-18 00:58] VITALS: PULSE 97; RESP 18; O2SAT 97
[2021-02-18 05:45] VITALS: BP 121/55; PULSE 80
[2021-02-18] MEDS: Polyethylene Glycol 3350 17 GM PACKET PO (05:47)
[2021-02-18] MEDS: Gabapentin 600 MG Tablet PO ×4 (05:48→21:17)
[2021-02-18] MEDS: Acetaminophen 500 MG Tablet 1000 MG PO ×3 (05:48→21:16)
[2021-02-18] MEDS: DULoxetine Hcl 30 MG Capsule PO (05:48)
[2021-02-18] MEDS: Cholecalciferol (VIT D3) 25 MCG TABLET (1,000 UNITS) 50 MCG PO (05:48)
[2021-02-18] MEDS: Senna/Docusate Sodium 1 Tablet 2 TABLET PO ×2 (05:49→17:15)
[2021-02-18] MEDS: Lisinopril 20 MG Tablet PO (05:49)
[2021-02-18] MEDS: Magnesium Hydroxide 30 ML UDC 15 ML PO (06:05)
[2021-02-18] MEDS: traMADol 50 MG Tablet PO ×2 (06:06→14:49)
[2021-02-18 06:25] LABS: Bedside Glucose 115 mg/dL (70-110)
[2021-02-18] MEDS: Vitamin B Comp W-C Capsule 1 CAP PO ×2 (08:40→17:14)
[2021-02-18] MEDS: Aspirin 81 MG TAB.CHEW PO ×2 (08:40→17:14)
[2021-02-18] MEDS: metFORMIN HCl 500 MG Tablet PO ×2 (08:40→17:13)
--- NOTE | 2021-02-18 10:38 | CASEMGMT ---
Social Work IDT met with patient and for care plan meeting. Discussed patient's progress in therapy and nursing. The goal is for pt to return home with . Pt goal is to tx independently before DC home. Pt able to complete steps. Discussed HHC vs OP. Pt has appt with Dr. Bone to get jerry out 02/20 and will ask about recommendation. Provided [employer] resources. Explained Medicare benefit. Encouraged to contact secondary insurance to ensure copay coverage. Will continue to follow. LULY CeeW
[2021-02-18 16:58] VITALS: BP 95/49; PULSE 78; RESP 16; TEMP 35.9; O2SAT 96
[2021-02-18 20:31] VITALS: PULSE 96; RESP 16; O2SAT 95
[2021-02-19 04:58] LABS: Absolute Lymphocyte Count 1.59 X10^3/uL (0.83-4.51); Absolute Neutrophil Count 5.5 X10^3/uL (2.0-7.7); Basophil# 0.06 X10^3/uL; Basophil% 0.7 % (0-1); Eosinophil# 0.38 X10^3/uL; Eosinophils% 4.6 % (0-5); Hematocrit 39.1 % (37-47); Hemoglobin 12.2 g/dL (12.0-15.0); Lymphocyte # 1.59 X10^3/ul (0.83-4.51); Lymphocyte % 19.3 % (19-41); Mean Corp Hgb Conc 31.2 g/dL (32-36); Mean Corpuscular Hgb 31.6 pg (27.0-32.0); Mean Corpuscular Volume 101.3 fL (81-99); Mean Platelet Vol. 9.3 fl (6.2-12.0); Monocyte# 0.71 X10^3/uL; Monocyte% 8.6 % (0-10); NRBC Flagged by Analyzer 0 % (0-5); Neutrophil # 5.46 X10^3/uL (2.7-7.7); Neutrophil % 66.3 % (47-70); Platelet Count 345 K/mm3 (150-450); RBC Distribution Width CV 13.6 % (11.6-14.6); RBC Distribution Width SD 50.2 fl (35.1-43.9); Red Blood Count 3.86 M/mm3 (4.2-5.4); White Blood Count 8.2 K/mm3 (4.4-11.0)
[2021-02-19 05:26] LABS: Anion Gap 4 (5-15); BUN 18 mg/dL (7-18); BUN/Creat Ratio 27.5 RATIO (10-20); Chloride 105 mmol/L (98-107); Creatinine, Serum 0.66 mg/dL (0.55-1.02); EST Glomerular Filtration Rate 92 mL/min (>60); Est Glom Filt Rate - Afr Amer 111 mL/min (>60); Glucose 116 mg/dL (74-106); Potassium 4.7 mmol/L (3.5-5.1); Sodium Level 139 mmol/L (136-145)
[2021-02-19] MEDS: DULoxetine Hcl 30 MG Capsule PO (06:11)
[2021-02-19] MEDS: Polyethylene Glycol 3350 17 GM PACKET PO (06:11)
[2021-02-19] MEDS: Acetaminophen 500 MG Tablet 1000 MG PO ×3 (06:11→20:10)
[2021-02-19] MEDS: Senna/Docusate Sodium 1 Tablet 2 TABLET PO ×2 (06:11→16:59)
[2021-02-19] MEDS: Cholecalciferol (VIT D3) 25 MCG TABLET (1,000 UNITS) 50 MCG PO (06:11)
[2021-02-19] MEDS: Gabapentin 600 MG Tablet PO ×4 (06:11→20:10)
[2021-02-19] MEDS: Magnesium Hydroxide 30 ML UDC 15 ML PO (06:12)
[2021-02-19] MEDS: Lisinopril 20 MG Tablet PO (06:12)
[2021-02-19 06:21] LABS: Bedside Glucose 115 mg/dL (70-110)
[2021-02-19] MEDS: metFORMIN HCl 500 MG Tablet PO ×2 (07:53→17:00)
[2021-02-19] MEDS: Aspirin 81 MG TAB.CHEW PO ×2 (07:53→17:00)
[2021-02-19] MEDS: Vitamin B Comp W-C Capsule 1 CAP PO ×2 (07:53→17:00)
[2021-02-19] MEDS: traMADol 50 MG Tablet PO ×2 (10:11→21:34)
[2021-02-19] MEDS: Tuberculin,Purif.prot.deriv. 50 TU/ML Vial 0.1 ML ID (11:01)
[2021-02-19 12:39] VITALS: BP 114/52; PULSE 84; RESP 17; TEMP 36.3; O2SAT 92
[2021-02-19] MEDS: Menthol/Lanolin/Calamine/Znox 113 GM Tube 1 APPLIC TOPICAL (17:01)
[2021-02-20] MEDS: traMADol 50 MG Tablet PO ×2 (01:31→12:09)
[2021-02-20] MEDS: Polyethylene Glycol 3350 17 GM PACKET PO (05:40)
[2021-02-20] MEDS: Lisinopril 20 MG Tablet PO (05:40)
[2021-02-20] MEDS: Senna/Docusate Sodium 1 Tablet 2 TABLET PO ×2 (05:40→16:58)
[2021-02-20] MEDS: Gabapentin 600 MG Tablet PO ×4 (05:41→21:10)
[2021-02-20] MEDS: Acetaminophen 500 MG Tablet 1000 MG PO ×3 (05:41→21:10)
[2021-02-20] MEDS: Cholecalciferol (VIT D3) 25 MCG TABLET (1,000 UNITS) 50 MCG PO (05:41)
[2021-02-20] MEDS: DULoxetine Hcl 30 MG Capsule PO (05:42)
[2021-02-20] MEDS: Menthol/Lanolin/Calamine/Znox 113 GM Tube 1 APPLIC TOPICAL ×2 (05:47→16:58)
[2021-02-20 06:20] LABS: Bedside Glucose 111 mg/dL (70-110)
[2021-02-20] MEDS: Aspirin 81 MG TAB.CHEW PO ×2 (08:29→16:58)
[2021-02-20] MEDS: Vitamin B Comp W-C Capsule 1 CAP PO ×2 (08:29→16:57)
[2021-02-20] MEDS: metFORMIN HCl 500 MG Tablet PO ×2 (08:29→16:58)
[2021-02-20 10:00] VITALS: PULSE 83; RESP 18; O2SAT 99
--- NOTE | 2021-02-20 15:13 | CASEMGMT ---
Social Work Spoke with pt regarding request to DC. Spoke with IDT and agreeable to DC 02/22 home with . Pt does not have any DME needs and requesting outpatient PT at [facility]. Referral made. to transport. Plan: DC home with 02/22, [facility] outpatient PT LULY CeeW
--- NOTE | 2021-02-20 15:15 | PCM.DC.SUM ---
Providers Date of Admission: 02/11/21 Primary Care Physician: Dr. Nhaomy Bettencourt MD Reason For Visit: DEBILITY, RT TOTAL KNEE Diagnosis Discharge Diagnosis (1) Debility: Status: Acute Code(s): R53.81 - Other malaise (2) S/P total knee arthroplasty: Status: Acute Code(s): Z96.659 - Presence of unspecified artificial knee joint Qualifiers: Laterality: right Qualified Code(s): Z96.651 - Presence of right artificial knee joint (3) Inability to ambulate due to knee: Status: Acute Code(s): R26.2 - Difficulty in walking, not elsewhere classified (4) Hypertension: Status: Chronic Code(s): I10 - Essential (primary) hypertension (5) Vitamin D deficiency: Status: Acute Code(s): E55.9 - Vitamin D deficiency, unspecified (6) Chronic constipation: Status: Chronic Code(s): K59.09 - Other constipation (7) Diabetes mellitus: Status: Acute Code(s): E11.9 - Type 2 diabetes mellitus without complications (8) Diabetic polyneuropathy: Status: Acute Code(s): E11.42 - Type 2 diabetes mellitus with diabetic polyneuropathy (9) Depression: Status: Acute Code(s): F32.9 - Major depressive disorder, single episode, unspecified Medications at Discharge Home Medications biotin 1,000 mg PO DAILY 11/21/14 lisinopril 20 mg PO DAILY 11/21/14 tramadol 50 mg tablet 50 mg PO QDAY PRN tab 09/08/17 cholecalciferol (vitamin D3) 50 mcg (2,000 unit) capsule 2,000 unit PO DAILY 09/13/18 linaclotide 145 mcg capsule 145 mcg PO PRN PRN 60 Days cap 09/13/18 metformin 500 mg tablet 500 mg PO BID 09/13/18 vitamin B complex 1 tab PO BID 09/13/18 gabapentin 300 mg capsule 600 mg PO 4X/DAY 30 Days #150 cap 09/24/19 duloxetine 30 mg capsule,delayed release 30 mg PO DAILY 09/22/20 turmeric 500 mg PO DAILY 12/17/20 acetaminophen 1,000 mg PO Q8 02/11/21 aspirin 81 mg PO BID 02/11/21 enoxaparin 40 mg SUBCUT DAILY 02/11/21 tramadol 50 mg PO .4-6 HOURS PRN PRN 7 Days #6 tab 02/11/21 magnesium hydroxide 15 ml PO QHS #0 ml 02/20/21 menthol-zinc oxide [Calmoseptine] 1 applic TOPICAL BID #0 g 02/20/21 tramadol 50 mg PO Q4H PRN PRN 7 Days #42 tab 02/20/21 Hospital Course Operations total knee replacement (Right.) Procedures None Summary of Care Provided Minutes Spent on Discharge: 30 Hospital Course: 80 year old female with below past medical history underwent right total knee replacement 02/09/[address] Bone, admitted to TCU with debility, here for rehabilitation, strengthening, prior to discharge home with . Discharge home with 02/22/2021, [facility] outpatient PT. Physical Exam Const alert and oriented x3 General Appearance: cooperative HEENT normocephalic Eyes PERRL and EOMs intact bilaterally Neck supple, no JVD and no carotid bruits Resp normal respiratory effort, normal air movement and clear to auscultation bilaterally Cardio regular rate and regular rhythm GI normal to inspection, nondistended, normoactive bowel sounds, non-tender and non-distended Extremity normal capillary refill General Extremity: Negative for edema Skin no rashes or lesions noted General Skin Exam: no breakdown Psych affect normal Appearance: appropriate Weight / BMI Weight Weight: 85.786 kg Body Mass Index (BMI) 32.6 ABG / Lab / Microbiology Data Result Diagrams: 02/19/21 04:40 02/19/21 04:40 Laboratory: Laboratory Results - last 24 hr 02/20/21 06:11: POC Glucose 111 H D/C Instructions Discharge Diet: No restrictions Discharge Activity: Return to Normal Activity, May Shower and Use Walker May resume sexual activity in: 6-8 weeks Weight Bearing Status: Weight bearing as tolerated Call your doctor if you observe: Fever of 101 or Higher, Inability to urinate, Inability to have a bowel movement, Shortness of breath, Dizziness, Fainting spells, Swelling in the ankles, Calf discomfort and Uncontrolled pain Additional Instructions: Discharge home with 02/22/2021, [facility] outpatient PT. Please Follow Up With: POST-OP APPOINTMENT ON 02/20/21 When: As scheduled. Meaningful Use Info Meaningful Use Diagnoses (Choose all that apply): None applicable Discharge Plan Admission Admit Date/Time: 02/11/21 18:45 Primary Reason for Your Visit: Debility. Attending Provider: Arsenio Pride Chi Primary Care Provider: Nahomy Bettencourt Instructions Additional Instructions / Restrictions: Discharge home with 02/22/2021, [facility] outpatient PT. Discharge Orders/Prescriptions Prescriptions: New tramadol 50 mg Tablet 50 mg PO Q4H PRN PRN (Reason: Pain Score 1-5) 7 Days Qty: 42 RF: 0 magnesium hydroxide 400 mg/5 mL Suspension 15 ml PO QHS Qty: 0 RF: 0 menthol-zinc oxide [Calmoseptine] 0.44-20.6 % Ointment 1 applic topical BID Qty: 0 RF: 0 Continued Linzess 145 mcg capsule 145 mcg PO PRN PRN (Reason: STOOL) 60 Days RF: 0 gabapentin 300 mg capsule 600 mg PO 4X/DAY 30 Days Qty: 150 RF: 0 metformin 500 mg tablet 500 mg PO BID RF: 0 cholecalciferol (vitamin D3) 2,000 unit capsule 2,000 unit PO DAILY RF: 0 vitamin B complex [B Complex 1] tablet 1 tab PO BID RF: 0 duloxetine 30 mg capsule,delayed release(DR/EC) 30 mg PO DAILY RF: 0 lisinopril 20 MG tablet 20 mg PO DAILY RF: 0 biotin 1 MG capsule 1,000 mg PO DAILY RF: 0 turmeric 400 mg Capsule 500 mg PO DAILY RF: 0 acetaminophen 500 mg tablet 1,000 mg PO Q8 RF: 0 aspirin 81 mg tablet,chewable 81 mg PO BID RF: 0 No Action tramadol 50 mg tablet 50 mg PO QDAY PRN (Reason: Pain) RF: 0 Hold Instructions: Until discharge from TCU tramadol 50 mg Tablet 50 mg PO .4-6 HOURS PRN PRN (Reason: Pain 1-3) 7 Days Qty: 6 RF: 0 enoxaparin 40 mg/0.4 mL syringe 40 mg subcut DAILY RF: 0 Referrals / Follow Up: Nahomy Bettencourt MD [Primary Care Provider] - Disposition Disposition (needs filled in before D/C Order can be placed): Home, Self Care
[2021-02-20 15:23] VITALS: BP 140/74; PULSE 101; RESP 16; TEMP 35.9; O2SAT 97
--- NOTE | 2021-02-20 15:37 | CASEMGMT ---
Social Work BIMS and PHQ-9 completed for MDS assessment. Char Sosa, CONFERENCE INTERPRETER ANIMAL STICKER
[2021-02-20] MEDS: Magnesium Hydroxide 30 ML UDC 15 ML PO (21:12)
[2021-02-21] MEDS: traMADol 50 MG Tablet PO ×2 (01:46→15:12)
[2021-02-21] MEDS: Menthol/Lanolin/Calamine/Znox 113 GM Tube 1 APPLIC TOPICAL ×2 (05:31→17:51)
[2021-02-21] MEDS: Lisinopril 20 MG Tablet PO (05:34)
[2021-02-21] MEDS: Senna/Docusate Sodium 1 Tablet 2 TABLET PO ×2 (05:34→17:51)
[2021-02-21] MEDS: Cholecalciferol (VIT D3) 25 MCG TABLET (1,000 UNITS) 50 MCG PO (05:35)
[2021-02-21] MEDS: Gabapentin 600 MG Tablet PO ×4 (05:35→21:31)
[2021-02-21] MEDS: Polyethylene Glycol 3350 17 GM PACKET PO (05:35)
[2021-02-21] MEDS: Acetaminophen 500 MG Tablet 1000 MG PO ×3 (05:35→21:31)
[2021-02-21] MEDS: DULoxetine Hcl 30 MG Capsule PO (05:35)
[2021-02-21 06:36] LABS: Bedside Glucose 117 mg/dL (70-110)
[2021-02-21] MEDS: Vitamin B Comp W-C Capsule 1 CAP PO ×2 (08:12→17:51)
[2021-02-21] MEDS: metFORMIN HCl 500 MG Tablet PO ×2 (08:12→17:51)
[2021-02-21] MEDS: Aspirin 81 MG TAB.CHEW PO ×2 (08:12→17:51)
[2021-02-21 13:53] VITALS: BP 134/71; PULSE 93; RESP 16; TEMP 36.1; O2SAT 97
[2021-02-22 04:59] VITALS: BP 128/59; PULSE 80; RESP 16; TEMP 36.6; O2SAT 94
[2021-02-22] MEDS: Cholecalciferol (VIT D3) 25 MCG TABLET (1,000 UNITS) 50 MCG PO (05:00)
--- NOTE | 2021-02-22 05:00 | NURSING ---
Pt asks several questions in regard to dc instructions. Reviewed homegoing medication regimen per dc summary. Explained purpose, desired effects, and side effects of new medications. Pt also has questions re: boost for Pfizer vaccine. Received vaccines in July and August at [facility]. Informed pt this nurse is uncertain of availability of booster for the community at this time. Suggested she may reach out to a local pharmacy to inquire about the booster of may wait for advertisement to the community of availability of the booster through [facility]. She verbalizes understanding.
[2021-02-22] MEDS: Acetaminophen 500 MG Tablet 1000 MG PO (05:01)
[2021-02-22] MEDS: Polyethylene Glycol 3350 17 GM PACKET PO (05:02)
[2021-02-22] MEDS: DULoxetine Hcl 30 MG Capsule PO (05:02)
[2021-02-22] MEDS: Gabapentin 600 MG Tablet PO (05:03)
[2021-02-22] MEDS: Lisinopril 20 MG Tablet PO (05:03)
[2021-02-22] MEDS: Menthol/Lanolin/Calamine/Znox 113 GM Tube 1 APPLIC TOPICAL (05:05)
[2021-02-22 06:16] LABS: Bedside Glucose 130 mg/dL (70-110)
[2021-02-22] MEDS: Vitamin B Comp W-C Capsule 1 CAP PO (08:32)
[2021-02-22] MEDS: metFORMIN HCl 500 MG Tablet PO (08:32)
[2021-02-22] MEDS: Aspirin 81 MG TAB.CHEW PO (08:32)
[2021-02-22 10:00] VITALS: BP 115/55; PULSE 88; RESP 18; TEMP 35.9; O2SAT 96
--- NOTE | 2021-02-24 08:26 | MDS.RN ---
Information for the mds was obtained from review of the clinical record, interview of resident, staff, and direct observation of resident's care.
== END 2021-02-22 10:30 | disposition home or self-care (01) | DRG 561 ==
PROVIDERS: Admitting Provider Family Medicine Geriatric Medicine; PCP Family Medicine; Visit Provider Family Medicine Geriatric Medicine
DX: Z47.1 Aftercare following joint replacement surgery (principal); Z96.651 Presence of right artificial knee joint; I25.10 Atherosclerotic heart disease of native coronary artery without angina pectoris; Z23 Encounter for immunization; E11.42 Type 2 diabetes mellitus with diabetic polyneuropathy; I10 Essential (primary) hypertension; G40.909 Epilepsy, unspecified, not intractable, without status epilepticus; M19.90 Unspecified osteoarthritis, unspecified site; E55.9 Vitamin D deficiency, unspecified; F32.9 Major depressive disorder, single episode, unspecified; I48.0 Paroxysmal atrial fibrillation; Z87.891 Personal history of nicotine dependence; Z79.899 Other long term (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; Z79.84 Long term (current) use of oral hypoglycemic drugs; Z79.82 Long term (current) use of aspirin
CPT/HCPCS: 36415; 80048; 82962; 85025; 90732; 97110; 97116; 97162; 97166; 97530; 97535; G0009

== ENCOUNTER 2021-06-15 14:09 | Outpatient (CLI) | payer MEDICARE, OTHER, SELFPAY ==
[2021-06-15 14:35] LABS: Lactic Acid 1.3 mmol/L (0.4-1.9)
== END 2021-06-15 23:59 | disposition short-term general hospital (02) ==
PROVIDERS: PCP Family Medicine; Visit Provider Family Medicine
DX: R30.0 Dysuria (principal); A41.9 Sepsis, unspecified organism
CPT/HCPCS: 83605

== ENCOUNTER 2021-06-15 16:03 | Outpatient (CLI) | payer MEDICARE, OTHER, SELFPAY ==
--- NOTE | 2021-06-15 16:05 | CT_ITS ---
STUDY: CT ABDOMEN AND PELVIS WITHOUT CONTRAST REASON FOR EXAM: Female, 80 years old. Lower abdominal pain with hematuria RADIATION DOSAGE (If Supplied By Facility): CTDIvol = ( 17.60 ) mGy, DLP = ( 832.32 ) mGycm TECHNIQUE: Transaxial images were obtained from the dome of the diaphragm to the symphysis pubis without oral contrast, and without intravenous contrast. Sagittal and coronal images were reconstructed. Individualized dose optimization techniques were used for this CT. COMPARISON: 05/07/2016 FINDINGS: The visualized lung bases are unremarkable. The visualized portions of the heart are within normal limits. Normal liver. Small exophytic nodule posterior to the right hepatic lobe is stable since 2016 (benign). There is non-visualization of the gallbladder, which may be secondary to either contraction or a prior cholecystectomy. Normal spleen. Normal pancreas. Normal bilateral adrenal glands. Normal right kidney. Normal left kidney. Normal visualized stomach. Normal small intestine. There are multiple colonic diverticula consistent with diverticulosis. The cecum is decompressed. There is non-visualization of the appendix. There is diffuse atherosclerotic calcification of the abdominal aorta, without a demonstrated aneurysm. Normal inferior vena cava. Normal retroperitoneum. Nondistended urinary bladder. There is absence of the uterus consistent with a prior hysterectomy. Normal abdominal wall. There are diffuse degenerative changes of the visualized lumbar spine with acquired canal stenosis in the lower lumbar levels. CT/Abdomen/Pelvis without Cont IMPRESSION: 1. No hydronephrosis or urinary tract calcifications. Electronically Signed: Austin Lawrence MD (Brooks) at 16:31 EST Reading Location ID and State: [place] , Service support ,
== END 2021-06-15 23:59 | disposition short-term general hospital (02) ==
LOC: CT 16:04
PROVIDERS: PCP Family Medicine; Referring Provider Family Medicine; Visit Provider Family Medicine
DX: A41.9 Sepsis, unspecified organism (principal); R31.9 Hematuria, unspecified; R10.9 Unspecified abdominal pain; R30.0 Dysuria
CPT/HCPCS: 74176; 83605

== ENCOUNTER 2021-06-27 07:52 | Outpatient (CLI) | payer MEDICARE, OTHER, SELFPAY ==
--- NOTE | 2021-06-27 08:03 | MRI_ITS ---
HISTORY: Lumbar spine radiculopathy, right low back pain. TECHNIQUE: Multiplanar and multisequence MR images of the lumbar spine. IV Contrast dosage and agent: None. # of images incl. paperwork: 126. COMPARISON: CT abdomen and pelvis 06/15/2021. FINDINGS: VERTEBRAE: Vertebral body heights maintained. Degenerative bone marrow endplate changes and intervertebral disc space narrowing at multiple levels. ALIGNMENT: No anterior or posterior subluxation. CONUS: Normal morphology and position at T12-L1. Mild clumping of the nerve roots in the left thecal sac at the L3-4 level and then lateralization of the bilateral nerve roots in the cauda equina with an empty thecal sac appearance extending to the L4-5 and L5-S1 levels. SOFT TISSUES: No paraspinal fluid collection. INTERVERTEBRAL DISCS: Multilevel degenerative changes with posterior disc bulge osteophyte complexes and facet arthropathy. T12-L1, L1-2: Minimal narrowing of the thecal sac. No foraminal narrowing. L2-3:Left paracentral component extending into the lateral recess with impingement of the left L3 nerve root. Moderate central canal stenosis. Mild bilateral foraminal narrowing with probable impingement of the left L2 nerve root. L3-4: Central disc extrusion with mild inferior migration. Moderate central canal stenosis with mild bilateral foraminal narrowing. L4-5: Right paracentral component abutting the right L5 nerve root. Left hemilaminectomy. No significant central canal stenosis. Left greater than right foraminal narrowing. L5-S1: No significant central canal stenosis. Moderate left and mild right foraminal narrowing. MRI/Spine Lumbar (Routine) IMPRESSION: Mild thickening or clumping of the left nerve roots at the L3-4 level with peripheralization of the nerve roots more inferiorly, suggesting sequela of arachnoiditis or adhesions. Multilevel degenerative disc disease with moderate spinal canal stenosis and nerve root impingement as described above. at 1659 Reported and signed by: Jessica Harrell MD Electronically Signed: Jessica Harrell MD at 16:58 EST Reading Location ID and State: [facility] / [place] Tel , Service support ,
== END 2021-06-27 23:59 | disposition home or self-care (01) ==
LOC: MRI 07:53
PROVIDERS: PCP Family Medicine; Visit Provider Family Medicine
DX: M54.16 Radiculopathy, lumbar region (principal)
CPT/HCPCS: 72148

== ENCOUNTER 2021-07-10 09:50 | Outpatient (CLI) | payer MEDICARE, OTHER, SELFPAY ==
--- NOTE | 2021-07-10 09:55 | RAD_ITS ---
STUDY: X-RAY - CERVICAL SPINE REASON FOR EXAM: Female, 80 years old. LEFT SIDED NECK PAIN TECHNIQUE: 5 view(s) of the cervical spine were obtained. COMPARISON: None FINDINGS: Normal anterior atlantoaxial articulation. Normal odontoid process. There is straightening of the normal cervical lordosis. There is diffuse demineralization of the cervical spine. There is multi-level degenerative disc disease with multilevel disc space narrowing. There is multi-level osseous foraminal stenosis. The soft tissue structures are unremarkable. There is been previous vertebral body fusion between C5 and C6. RAD/Cerv Spine 4 or 5 Views IMPRESSION: Osteopenia with multilevel degenerative changes. No acute fracture Electronically Signed: Ervin Morales MD at 14:32 EST ,
== END 2021-07-10 23:59 | disposition home or self-care (01) ==
LOC: MTRAD 09:52
PROVIDERS: PCP Family Medicine; Referring Provider Family Medicine; Visit Provider Family Medicine
DX: M62.838 Other muscle spasm (principal); M54.2 Cervicalgia
CPT/HCPCS: 72050

== ENCOUNTER → 2021-11-23 | Outpatient (CLI) | payer MEDICARE, OTHER, SELFPAY ==
[2021-11-23 09:43] LABS: Absolute Lymphocyte Count 1.94 X10^3/uL (0.83-4.51); Absolute Neutrophil Count 5.3 X10^3/uL (2.0-7.7); Basophil# 0.07 X10^3/uL; Basophil% 0.8 % (0-1); Eosinophils% 7.1 % (0-5); Hematocrit 42.6 % (37-47); Hemoglobin 13.6 g/dL (12.0-15.0); Lymphocyte # 1.94 X10^3/ul (0.83-4.51); Lymphocyte % 22.8 % (19-41); Mean Corp Hgb Conc 31.9 g/dL (32-36); Mean Platelet Vol. 9.6 fl (6.2-12.0); Monocyte# 0.55 X10^3/uL; Monocyte% 6.5 % (0-10); NRBC Flagged by Analyzer 0 % (0-5); Neutrophil # 5.32 X10^3/uL (2.7-7.7); Neutrophil % 62.4 % (47-70); Platelet Count 283 K/mm3 (150-450); RBC Distribution Width CV 14.2 % (11.6-14.6); RBC Distribution Width SD 50.4 fl (35.1-43.9); Red Blood Count 4.39 M/mm3 (4.2-5.4); White Blood Count 8.5 K/mm3 (4.4-11.0)
[2021-11-23 10:11] LABS: ALB/GLOB Ratio 1.1 RATIO (0.9-2.4); AST(SGOT) 14 U/L (15-37); Alanine Aminotransfer ALT/SGPT 18 U/L (13-56); Albumin, Serum 3.5 g/dL (3.2-5.0); Alkaline Phosphatase 134 U/L (45-117); Anion Gap 5 (5-15); BUN 10 mg/dL (7-18); Calcium,Total 9.1 mg/dL (8.5-10.1); Chloride 105 mmol/L (98-107); Cholesterol 156 mg/dL (200); Creatinine, Serum 0.72 mg/dL (0.55-1.02); EST Glomerular Filtration Rate 83 mL/min (>60); Est Glom Filt Rate - Afr Amer 100 mL/min (>60); Globulin 3.3 g/dL (2.2-4.2); Glucose 119 mg/dL (74-106); High Density Lipoprotein 52 mg/dL; Protein, Total 6.8 g/dL (6.4-8.2); Sodium Level 138 mmol/L (136-145); Triglycerides 99 mg/dL; Very Low Density Lipoprotein 20 mg/dL (5-40)
== END | disposition home or self-care (01) ==
LOC: LAB 09:10
PROVIDERS: PCP Family Medicine; Visit Provider Family Medicine
DX: Z00.00 Encounter for general adult medical examination without abnormal findings (principal); E11.9 Type 2 diabetes mellitus without complications; I10 Essential (primary) hypertension
CPT/HCPCS: 36415; 80053; 80061; 85025

== ENCOUNTER → 2022-04-23 | Outpatient (CLI) | payer MEDICARE, OTHER, SELFPAY ==
--- NOTE | 2022-04-23 09:07 | STRESSREP ---
Stress Test Report Date: 04-23-2022 Procedure: Pharmacologic stress nuclear imaging study Indications: Chest pain; paroxysmal atrial fibrillation; abnormal ECG/left bundle branch block Consent: Per the patient Procedure: The patient underwent pharmacologic (Regadenoson 0.4mg ) evaluation with a peak heart rate of 88 beats per minute (64%predicted maximal heart rate) and a resting blood pressure of 118/70 mmHg and a peak blood pressure of 118/70 mmHg. The baseline ECG demonstrated sinus rhythm; left bundle branch block. The peak pharmacologic ECG demonstrated continued left bundle branch block. There were no cardiac dysrhythmias pretest, during pharmacologic infusion, or recovery. There was no complaint of chest discomfort during pharmacologic infusion or recovery. The examination was discontinued secondary to completion of protocol. Impression: 1. Pharmacologic (Regadenoson) evaluation 2. Peak pharmacologic ECG with sinus rhythm with left bundle branch block. 3. There were no cardiac dysrhythmias pretest, during pharmacologic infusion, or recovery. 4. Nuclear images pending Myocardial perfusion imaging study: Technique: The patient was injected with 12.0 millicuries of technetium 99m Cardiolite and subsequently rest SPECT Cardiolite nuclear imaging was obtained in the horizontal long, vertical long, and short axis views. The patient underwent pharmacologic (Regadenoson) evaluation with a peak heart rate of 88 beats per minute (64% percent predicted maximal heart rate) and a resting blood pressure of 118/70 mmHg and a peak blood pressure of 118/70 mmHg. The patient was injected with 36.0 millicuries of technetium 99m Cardiolite and subsequently stress SPECT Cardiolite nuclear imaging was obtained in the horizontal long, vertical long, and short axis views. A gated Cardiolite study at peak stress was obtained. Interpretation: Rest and stress SPECT Cardiolite nuclear imaging status post realignment, normalization, and attenuation correction demonstrate at rest and stress a small area of subtle diminished tracer uptake in the distal anteroseptal/septal apical segments without significant change, however, status post-rest there is notation of diminished myocardial perfusion/tracer uptake in portions of the distal anterior/anteroapical segments. There is similar type findings on the resting and stress polar map images. There is end systolic thickening and brightening. The gated Cardiolite study demonstrates myocardial thickening and inward wall motion. The reported LVEF is 54%. Impression: 1. Rest and stress SPECT currently nuclear imaging demonstrate myocardial perfusion changes potentially compatible with a previous area of myocardial injury/infarction involving portions of the distal anteroseptal/septal apical segments as well as an area of stress-induced myocardial ischemia involving portions of the distal anterior/anteroapical segments, however, an element of shifting soft tissue attenuation/artifact cannot necessarily be excluded as well as contribution from the patient's underlying left bundle branch block phenomena cannot necessarily be excluded. 2. The gated Cardiolite study reports an LVEF of 54%. This note was generated with [employer] software. It may contain incorrect words, spelling, and punctuation that were not noted in checking the note before signing.
== END | disposition home or self-care (01) ==
LOC: CVS 06:51
PROVIDERS: PCP Family Medicine; Visit Provider Physician Assistant Medical
DX: R07.9 Chest pain, unspecified (principal)
CPT/HCPCS: 78452; 93017; A9500; A4216; J2785

== ENCOUNTER 2022-04-24 17:21 | Emergency (ER) | payer MEDICARE, OTHER, SELFPAY ==
[2022-04-24 17:22] VITALS: BP 139/73; PULSE 85; RESP 16; TEMP 36.6; O2SAT 96; BMI 31.6
--- NOTE | 2022-04-24 17:32 | ED.RN ---
pt has generalized tremor, with distraction tremor lessons and at times stops. pt coherent and responding with voice movment and directions appropriately regardless if severity of tremors
--- NOTE | 2022-04-24 18:03 | CT_ITS ---
STUDY: CT BRAIN WITHOUT CONTRAST REASON FOR EXAM: Female, 81 years old. tremor/ seizure RADIATION DOSAGE (If Supplied By Facility): CTDIvol = ( 44.99 ) mGy, DLP = ( 796.11 ) mGycm TECHNIQUE: Transaxial CT imaging of the brain was performed without administration of intravenous contrast material. Individualized dose optimization techniques were used for this CT. COMPARISON: No relevant priors. FINDINGS: Normal soft tissue structures. There is hyperostosis frontalis internus. There is mild cerebral atrophy with widening of the extra-axial spaces and ventricular dilatation. There are areas of decreased attenuation within the white matter tracts of the supratentorial brain, consistent with microvascular disease changes. Normal basal ganglia and thalami. Normal brainstem. Normal cerebellum. There is no intracranial hemorrhage. There are no findings of an acute ischemic infarction. Normal visualized paranasal sinuses. CT/Brain/Head without Contrast IMPRESSION: Chronic involutional changes of the brain. Electronically Signed: Lamont Ruelas MD at 18:34 EST ,
--- NOTE | 2022-04-24 18:04 | EX.ED.DYSGE1 ---
HPI History of Present Illness Chief Complaint: Anxiety Detail of Chief Complaint: Tremor and possible seizure Informant: patient and spouse/S.O. Narrative Narrative: Patient presents the emergency department from home via EMS with concern for possible seizure. Per she had an episode while sitting and watching TV where she had her lips and her face twitch as well as her hands which lasted about 3 to 4 minutes and she was not unresponsive with that patient did lose control of her bladder though. Patient thinks she bit her lower lip. Patient tells me she does not recall the event. Patient tells me she has a history of seizures in her 20s for which she was on Dilantin. Patient had been doing really well until her 30s when she had a seizure and then had not had 1 until 2 weeks ago when she had a similar spell 2 weeks ago but did not seek medical attention. They discussed the event with her primary care physician and were told that if it happened again to come to the ER. Patient denies recent illness. She denies head trauma. She is not on anticoagulation. She does describe a mild headache. Patient recently diagnosed with early stages of dementia by her neurologist Dr. Ephraim Tate. Nursing staff apparently noticed some tremor-like activity while she was awake and would follow direction and commands and seem to slow down or stop when she was redirected. tells me that patient told him this morning that she was very depressed and then wanted to Fabricio. Patient tells me that she feels like she is more stressed than usual. She denies any homicidal or suicidal ideations. Prior similar symptoms: Yes PFSH PFS Medical History Acute postoperative pain of right knee Ambulates with cane Arthritis Atherosclerotic heart disease of [place] coronary artery without angina pectoris Back pain Cardiology follow-up encounter Cellulitis of chest wall Chronic constipation Chronic cough Debility Depression Diabetes Diabetes mellitus Diabetic polyneuropathy Dietary restriction DM2 (diabetes mellitus, type 2) Epilepsy Essential hypertension Former smoker H/O cardiac murmur History of atrial fibrillation History of echocardiogram History of left heart catheterization (LHC) (~11/17/18) History of pain when walking History of steroid therapy History of stress test Hx of back injury Hx of vaginal delivery Hypertension Hypertension Inability to ambulate due to knee Injury of back Injury of head and neck Nephrolithiasis Neuropathy Neuropathy, diabetic Paroxysmal atrial fibrillation Vitamin D deficiency Wears glasses Home Medications biotin 1 mg capsule 1,000 mg PO DAILY supplement 11/21/14 [History Last Taken 01/24/16 17:00] lisinopril 20 mg tablet 20 mg PO DAILY HTN 11/21/14 [History Last Taken 11/17/18] metformin 500 mg tablet 500 mg PO BID Diabetes 09/13/18 [History Last Taken Unknown] duloxetine 30 mg capsule,delayed release 30 mg PO DAILY Neuropathy 09/22/20 [History Last Taken Unknown] acetaminophen 500 mg tablet 1,000 mg PO Q8 pain 02/11/21 [History Last Taken Unknown] tramadol 50 mg tablet 50 mg PO .4-6 HOURS PRN PRN Pain 1-3 7 days #6 tabs 02/11/21 [Rx Last Taken Unknown] doxycycline monohydrate 100 mg capsule 100 mg PO BID #20 caps 10/07/21 [Rx Last Taken Unknown] lorazepam 0.5 mg tablet (Ativan) 0.5 mg PO TID PRN anxiety #10 tabs 04/24/22 [Rx Last Taken Unknown] Allergy/AdvReac Type Severity Reaction Status Date / Time bacitracin Allergy Rash Verified 04/24/22 17:28 [From Neosporin ([id number])] bacitracin zinc Allergy Rash Verified 04/24/22 17:28 [From Neosporin ([id number])] neomycin sulfate Allergy Rash Verified 04/24/22 17:28 [From Neosporin ([id number])] polymyxin B Allergy Rash Verified 04/24/22 17:28 [From Neosporin ([id number])] sulfamethoxazole Allergy Itching Verified 04/24/22 17:28 [From Bactrim] trimethoprim [From Bactrim] Allergy Itching Verified 04/24/22 17:28 codeine AdvReac Nausea Verified 04/24/22 17:28 milk AdvReac Nausea/Vom/ Verified 04/24/22 17:28 Diarrhea Family History Father No problems noted. Mother No problems noted. Surgical History Amputated toe of right foot Deviated septum History of appendectomy History of cardiac catheterization History of cholecystectomy History of hysterectomy History of neck surgery History of tonsillectomy History of total right knee replacement (TKR) Hx of cystoscopy Hx of fusion of cervical spine S/P total knee arthroplasty Social History household members: spouse Smoking Status: Former smoker alcohol intake: never substance use type: does not use caffeine: No what type of physical activity do you participate in: other details: physical therapy seatbelt use: always do you feel safe at home: Yes ROS ROS ED Review of Systems ROS Unobtainable: other Constitutional Constitutional ED: Reports lethargy; Denies chills, fever(s), sweats or weight loss Eyes Eyes: Denies blurry vision, change in vision or diplopia ENT ENT ED: Denies rhinorrhea or sore throat Cardiovascular Cardiovascular: Denies chest pain, orthopnea or racing heartbeat Respiratory/Chest Respiratory/Chest: Reports dyspnea and dyspnea on exertion; Denies cough, orthopnea or sputum Gastrointestinal Gastrointestinal: Denies abdominal pain, diarrhea, nausea or vomiting Genitourinary Genitourinary ED: Denies dysuria, hematuria or urinary frequency Musculoskeletal Musculoskeletal: Denies arthralgias, back pain, myalgias or neck pain Integumentary Denies abscess, Abrasions or rash Neurologic Neurologic: Reports headache(s) and other Details: Tremor and possible seizure activity ; Denies weakness Psychiatric Psychiatric: Denies anxiety, depression or suicidal thoughts Endocrine Endocrinology: Denies polydipsia, polyphagia or polyuria Hematologic/Lymphatic Hematologic/Lymphatic: Denies easy bleeding, easy bruising or lymphadenopathy Allergic/Immunologic Allergic/Immunologic ED: Denies mouth swelling, tongue swelling or urticaria EXAM Physical Exam Const Vital Signs: 04/24/22 17:22 04/24/22 17:30 04/24/22 19:22 Temperature 97.8 F Temperature Source Temporal Pulse Rate 85 75 Respiratory Rate 16 20 H Respiratory Effort Normal Respiratory Pattern Normal Blood Pressure 139/73 H Blood Pressure Mean 95 Pulse Ox 96 Positive well nourished and well developed General Appearance ED: well developed and NAD HEENT Reports TM's clear and moist mucous membranes HEENT Narrative: No real bite wounds noted to the lips or tongue. normocephalic and atraumatic; Negative for trauma or tenderness Tympanic Membrane ED: Yes TM's clear Eyes PERRL and EOMs intact bilaterally General Eye ED: Negative for pale conjunctiva or scleral icterus Neck no lymphadenopathy, supple and no JVD General: Negative for tenderness Chest Wall inspection of chest normal and palpation of chest normal Chest: Negative for tenderness Resp normal respiratory effort and clear to auscultation bilaterally Effort and Inspection: Negative for respiratory distress or pain with movement Auscultation: Negative for rhonchi, wheezes or diminished lung sounds Cardio regular rate, regular rhythm, S1 normal heart sound, S2 normal heart sound and no murmurs Peripheral Pulses: pulses 2+ throughout GI normal to inspection, nondistended, normoactive bowel sounds, soft to palpation, non-tender, non-distended and no masses Back/Spine no CVA tenderness and no thoracic nor lumbar tenderness Extremity normal to inspection General Extremety ED: Negative for edema General Extremity: Negative for edema Neuro oriented x3, CN's II-XII intact bilaterally, no sensory deficits noted and gait normal Neuro Narrative: Finger-nose and heel aparicio testing within normal limits, negative Romberg, negative for drift, fundi benign Sensorium / Orientation: awake, alert, oriented to person, oriented to place and oriented to time Motor Exam: strength 5/5 throughout and strength abnormal Psych mental status grossly normal Skin no rashes or lesions noted and no wounds MDM MDM MDM Narrative Medical decision making narrative: Established on arrival. Patient was placed on monitoring manager. CBC with it was normal. Chemistries unremarkable. Liver enzymes were normal. Patient had a urinalysis that was normal. I did give her 0.5 mg of Ativan IV and she felt much improved. CT of the brain without contrast was read as age-related changes otherwise nothing acute. I did discuss case with a Dr. Grant who is neurologist covering for Dr. Tate who is the patient's neurologist. At this point it was not felt that these episodes that the patient is having are epileptic and based on the nurses descriptions I believe these may all be stress or anxiety related potentially. The neurologist did not want to start patient on any antiepileptics. Recommended follow-up with her neurologist. Patient actually has an appointment in 2 weeks with her neurologist. I will write her a prescription for Ativan as needed for stress and anxiety. Patient discharged home in stable condition Lab Data Attestation: I reviewed the patient's lab results. Labs: Laboratory Results - last 24 hr 04/24/22 04/24/22 04/24/22 18:10 18:10 18:50 WBC 8.3 RBC 4.06 L Hgb 13.0 Hct 40.1 MCV 98.8 MCH 32.0 MCHC 32.4 RDW Std Deviation 49.5 H RDW Coeff of Robert 13.7 Plt Count 239 MPV 9.3 Immature Gran % (Auto) 0.500 Neut % (Auto) 62.3 Lymph % (Auto) 25.1 Rolette % (Auto) 7.2 Eos % (Auto) 4.2 Baso % (Auto) 0.7 Absolute Neuts (auto) 5.2 Absolute Lymphs (auto) 2.08 Nucleated RBC % 0 Sodium 141 Potassium 3.8 Chloride 107 Carbon Dioxide 29.0 Anion Gap 5 BUN 14 Creatinine 0.70 Estim Creat Clear Calc 39.90 Est GFR (MDRD) Af Amer 103 Est GFR (MDRD) Non-Af 85 BUN/Creatinine Ratio 20.0 Glucose 100 Calcium 9.2 Total Bilirubin 0.20 AST 11 L ALT 19 Alkaline Phosphatase 119 H Total Protein 6.3 L Albumin 3.2 Globulin 3.1 Albumin/Globulin Ratio 1.0 Urine Color Yellow Urine Clarity Clear Urine pH 7.0 Ur Specific Eagle 1.010 Urine Protein Negative Urine Glucose (UA) Normal Urine Ketones Negative Urine Occult Blood 10 H Urine Nitrite Negative Urine Bilirubin Negative Urine Urobilinogen 1 H Ur Leukocyte Esterase 100 H Urine RBC 0 SEEN Urine WBC 0-5 SEEN Ur Squamous Epith Cells 0 SEEN Urine Bacteria 0 SEEN Urine Mucus 0 SEEN Radiography Diagnostic Testing: Clinical Impression(s) from Imaging Studies Brain CT 04/24/22 18:03 IMPRESSION: Chronic involutional changes of the brain. Electronically Signed: Lamont Ruelas MD at 18:34 EST , Discharge Plan Triage Chief Complaint: Anxiety ED Provider: Raina Pizano Dx/Rx/DC Orders Clinical Impression: Anxiety, Tremor Instructions: ED Anxiety Reaction, ED Depression, ED Panic Attack Prescriptions: New lorazepam [Ativan] 0.5 mg tablet 0.5 mg PO TID PRN (Reason: anxiety) Qty: 10 0RF No Action metformin 500 mg tablet 500 mg PO BID duloxetine 30 mg capsule,delayed release(DR/EC) 30 mg PO DAILY doxycycline monohydrate 100 mg capsule 100 mg PO BID Qty: 20 0RF lisinopril 20 MG tablet 20 mg PO DAILY Label Comments: Blood pressure biotin 1 MG capsule 1,000 mg PO DAILY Label Comments: Vitamin acetaminophen 500 mg tablet 1,000 mg PO Q8 tramadol 50 mg Tablet 50 mg PO .4-6 HOURS PRN PRN (Reason: Pain 1-3) 7 Days Qty: 6 0RF Primary Care Provider: Nahomy Bettencourt Referrals: Nahomy Bettencourt MD [Primary Care Provider] - Activity Restrictions/Additional Instructions: Follow-up with your neurologist at the earliest possible time otherwise keep the appointment that you have in 2 weeks. Disposition Disposition: Home, Self Care
[2022-04-24] MEDS: LORazepam 2 MG/ML Syringe 0.5 MG IV (18:11)
[2022-04-24] MEDS: 0.9% Normal Saline 1,000 ML 150 ML IV (18:13)
[2022-04-24 18:18] LABS: Absolute Lymphocyte Count 2.08 X10^3/uL (0.83-4.51); Absolute Neutrophil Count 5.2 X10^3/uL (2.0-7.7); Basophil# 0.06 X10^3/uL; Basophil% 0.7 % (0-1); Eosinophil# 0.35 X10^3/uL; Eosinophils% 4.2 % (0-5); Hematocrit 40.1 % (37-47); Lymphocyte # 2.08 X10^3/ul (0.83-4.51); Lymphocyte % 25.1 % (19-41); Mean Corp Hgb Conc 32.4 g/dL (32-36); Mean Corpuscular Volume 98.8 fL (81-99); Mean Platelet Vol. 9.3 fl (6.2-12.0); Monocyte% 7.2 % (0-10); NRBC Flagged by Analyzer 0 % (0-5); Neutrophil # 5.15 X10^3/uL (2.7-7.7); Neutrophil % 62.3 % (47-70); Platelet Count 239 K/mm3 (150-450); RBC Distribution Width CV 13.7 % (11.6-14.6); RBC Distribution Width SD 49.5 fl (35.1-43.9); Red Blood Count 4.06 M/mm3 (4.2-5.4); White Blood Count 8.3 K/mm3 (4.4-11.0)
[2022-04-24 18:34] LABS: BUN 14 mg/dL (7-18); Glucose 100 mg/dL (74-106)
[2022-04-24 18:35] LABS: AST(SGOT) 11 U/L (15-37); Alanine Aminotransfer ALT/SGPT 19 U/L (13-56); Albumin, Serum 3.2 g/dL (3.2-5.0); Alkaline Phosphatase 119 U/L (45-117); Anion Gap 5 (5-15); Calcium,Total 9.2 mg/dL (8.5-10.1); Chloride 107 mmol/L (98-107); EST Glomerular Filtration Rate 85 mL/min (>60); Est Glom Filt Rate - Afr Amer 103 mL/min (>60); Globulin 3.1 g/dL (2.2-4.2); Potassium 3.8 mmol/L (3.5-5.1); Protein, Total 6.3 g/dL (6.4-8.2); Sodium Level 141 mmol/L (136-145)
[2022-04-24 18:52] LABS: Bacteria 0 SEEN /hpf (None Seen); Mucous, Urine 0 SEEN /hpf (<or=2+); Red Blood Cells-Urine 0 SEEN /hpf (0-5); Squamous Epithelial Cells - UA 0 SEEN /hpf (5-10)
[2022-04-24 18:57] LABS: Color, Urine Yellow (Yellow); Glucose, Dipstick Normal (Normal); Ketone-Dipstick Negative (Negative); Leukocyte Esterase-Dipstick 100 /ul (Negative); Nitrite-Dipstick Negative (Negative); Occult Blood-Urine 10 /ul (Negative); Protein-Dipstick Negative (Negative); Urine Bilirubin Dipstick Negative (Negative); Urine Clarity Clear (Clear); Urine Urobilinogen 1 mg/dl (Normal)
[2022-04-24 19:09] LABS: White Blood Cells 0-5 SEEN /hpf (0-5)
[2022-04-24 19:22] VITALS: PULSE 75; RESP 20
[2022-04-24 19:57] VITALS: PULSE 75; RESP 20; O2SAT 95
== END 2022-04-24 20:13 | disposition home or self-care (01) ==
PROVIDERS: Emergency Provider Emergency Medicine; PCP Family Medicine; Visit Provider Emergency Medicine
DX: F41.9 Anxiety disorder, unspecified (principal); E11.42 Type 2 diabetes mellitus with diabetic polyneuropathy; I48.0 Paroxysmal atrial fibrillation; R25.1 Tremor, unspecified; I25.10 Atherosclerotic heart disease of native coronary artery without angina pectoris; F32.A Depression, unspecified; I10 Essential (primary) hypertension; Z79.899 Other long term (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; Z79.84 Long term (current) use of oral hypoglycemic drugs; Z87.891 Personal history of nicotine dependence
CPT/HCPCS: 70450; 80053; 81001; 85025; 96361; 96374; 99285; J7030

== ENCOUNTER → 2022-05-04 | Outpatient (CLI) | payer MEDICARE, OTHER, SELFPAY ==
--- NOTE | 2022-05-04 12:35 | RAD_ITS ---
STUDY: X-RAY CHEST REASON FOR EXAM: Female, 81 years old. Abnormal stress test. TECHNIQUE: Frontal and lateral views of the chest. COMPARISON: January 27, 2021. FINDINGS: Stable mild hyperinflation. There is no demonstrated pleural abnormality. Cardiomegaly unchanged. Normal mediastinum and saad. Normal visualized pulmonary arteries. Stable aortic tortuosity. Diffuse thoracic spondylosis unchanged. Normal visualized ribs, clavicles, and shoulders. There is no demonstrated abnormality of the visualized soft tissue structures of the upper abdomen. RAD/Chest PA and Lateral IMPRESSION: Stable cardiomegaly with mild hyperinflation. No active or acute cardiopulmonary disease. Electronically Signed: Flavio Logan, at 13:58 EST ,
[2022-05-04 13:05] LABS: International Normalized Ratio 1.1; Prothrombin Time (Protime)PT. 13.6 SECONDS (11.7-14.9)
== END | disposition home or self-care (01) ==
PROVIDERS: PCP Family Medicine; Visit Provider Physician Assistant Medical
DX: R94.39 Abnormal result of other cardiovascular function study (principal)
CPT/HCPCS: 36415; 71046; 85610; 85730

== ENCOUNTER → 2022-05-18 | Outpatient (CLI) | payer MEDICARE, OTHER, SELFPAY ==
[2022-05-18 16:03] LABS: Absolute Lymphocyte Count 2.05 X10^3/uL (0.83-4.51); Absolute Neutrophil Count 5.7 X10^3/uL (2.0-7.7); Basophil# 0.06 X10^3/uL; Basophil% 0.7 % (0-1); Eosinophil# 0.35 X10^3/uL; Eosinophils% 3.9 % (0-5); Hematocrit 41.8 % (37-47); Hemoglobin 13.3 g/dL (12.0-15.0); Lymphocyte # 2.05 X10^3/ul (0.83-4.51); Mean Corp Hgb Conc 31.8 g/dL (32-36); Mean Corpuscular Hgb 32.1 pg (27.0-32.0); Mean Platelet Vol. 9.7 fl (6.2-12.0); Monocyte# 0.67 X10^3/uL; Monocyte% 7.5 % (0-10); NRBC Flagged by Analyzer 0 % (0-5); Neutrophil # 5.74 X10^3/uL (2.7-7.7); Neutrophil % 64.6 % (47-70); Platelet Count 294 K/mm3 (150-450); RBC Distribution Width CV 13.6 % (11.6-14.6); RBC Distribution Width SD 50.4 fl (35.1-43.9); Red Blood Count 4.14 M/mm3 (4.2-5.4); White Blood Count 8.9 K/mm3 (4.4-11.0)
[2022-05-18 16:35] LABS: International Normalized Ratio 1.1; Prothrombin Time (Protime)PT. 13.7 SECONDS (11.7-14.9)
[2022-05-18 16:36] LABS: Partial Thromboplast Time 27.4 Seconds (24.1-36.2)
[2022-05-18 16:42] LABS: Anion Gap 5 (5-15); BUN 11 mg/dL (7-18); BUN/Creat Ratio 16.2 RATIO (10-20); Calcium,Total 9.6 mg/dL (8.5-10.1); Chloride 108 mmol/L (98-107); Creatinine, Serum 0.68 mg/dL (0.55-1.02); EST Glomerular Filtration Rate 88 mL/min (>60); Est Glom Filt Rate - Afr Amer 107 mL/min (>60); Glucose 100 mg/dL (74-106); Potassium 3.7 mmol/L (3.5-5.1); Sodium Level 143 mmol/L (136-145)
== END | disposition home or self-care (01) ==
LOC: PAT 06-02 13:07
PROVIDERS: Physician Assistant Medical; PCP Family Medicine; Visit Provider Internal Medicine Cardiovascular Disease
DX: R07.9 Chest pain, unspecified (principal); R94.39 Abnormal result of other cardiovascular function study
CPT/HCPCS: 36415; 80048; 85025; 85610; 85730

== ENCOUNTER 2022-05-31 13:02 | Emergency (ER) | payer MEDICARE, OTHER, SELFPAY ==
[2022-05-31 13:08] VITALS: BP 110/75; PULSE 135; RESP 32; TEMP 36.4; O2SAT 94; BMI 32.8
[2022-05-31 13:31] VITALS: BMI 32.8
[2022-05-31 13:51] VITALS: BP 95/71; PULSE 133; RESP 23; O2SAT 97
[2022-05-31 13:51] LABS: Bedside Glucose 112 mg/dL (74-106)
--- NOTE | 2022-05-31 13:51 | RAD_ITS ---
STUDY: X-RAY CHEST REASON FOR EXAM: Female, 81 years old. Tachypnea TECHNIQUE: Single AP portable view of the chest. COMPARISON: Comparison is made with prior study dated 05/04/2022. FINDINGS: EKG electrodes are seen. Hyperinflation. The lungs are clear. There is no demonstrated pleural abnormality. Normal size heart. Normal mediastinum and saad. Normal visualized pulmonary arteries. There is atherosclerotic tortuosity of the aortic arch and descending thoracic aorta. There are diffuse degenerative changes of the visualized thoracic spine. There is degenerative osteoarthritis of the bilateral shoulders. There is no demonstrated abnormality of the visualized soft tissue structures of the upper abdomen. RAD/Chest 1 View (Portable) IMPRESSION: Hyperinflation. The lungs are clear. Electronically Signed: Amol Hannon MD at 15:09 EST ,
--- NOTE | 2022-05-31 13:52 | EKG12_ITS ---
Test Reason : NEURO SX Blood Pressure : / mmHG Vent. Rate : 122 BPM Atrial Rate : 000 BPM P-R Int : 000 ms QRS Dur : 146 ms QT Int : 300 ms P-R-T Axes : 000 -23 120 degrees QTc Int : 427 ms Atrial fibrillation with rapid ventricular response with premature ventricular or aberrantly conducte d complexes Left bundle branch block Abnormal ECG Confirmed by PRAKASH LYNN, LISA ([id number]), tape editor MAMADOU TROY ([id number]) on 06/01/2022 9:44:36 AM Referred By: MARQUITA Confirmed By:LISA RANDALL MD
[2022-05-31 14:13] LABS: Absolute Lymphocyte Count 1.03 X10^3/uL (0.83-4.51); Absolute Neutrophil Count 3.9 X10^3/uL (2.0-7.7); Basophil# 0.03 X10^3/uL; Basophil% 0.5 % (0-1); Eosinophil# 0.23 X10^3/uL; Hematocrit 41.4 % (37-47); Hemoglobin 13.1 g/dL (12.0-15.0); Lymphocyte # 1.03 X10^3/ul (0.83-4.51); Lymphocyte % 17.8 % (19-41); Mean Corp Hgb Conc 31.6 g/dL (32-36); Mean Corpuscular Hgb 31.6 pg (27.0-32.0); Mean Corpuscular Volume 99.8 fL (81-99); Mean Platelet Vol. 9.6 fl (6.2-12.0); Monocyte# 0.57 X10^3/uL; Monocyte% 9.8 % (0-10); NRBC Flagged by Analyzer 0 % (0-5); Neutrophil # 3.91 X10^3/uL (2.7-7.7); Neutrophil % 67.6 % (47-70); Platelet Count 220 K/mm3 (150-450); RBC Distribution Width CV 13.8 % (11.6-14.6); RBC Distribution Width SD 50.4 fl (35.1-43.9); Red Blood Count 4.15 M/mm3 (4.2-5.4); White Blood Count 5.8 K/mm3 (4.4-11.0)
--- NOTE | 2022-05-31 14:13 | EDS_ITS ---
HPI History of Present Illness Chief Complaint: Neuro S/Sx Detail of Chief Complaint: Patient presented because of witnessed generalized tonic-clonic seizure. Informant: patient, spouse/S.O. and family Onset/Context/Timing Onset: Today and Hours Context: Sudden Onset Timing: Intermittent Quality: Like tonic-clonic seizure. Bit her tongue. No incontinence. Location: Not applicable Current Severity: Patient is now hypotensive and tachycardic with a regular rhythm. She leeann Maximum Severity: Not applicable Worsened by: Unknown Relieved by: Nothing Associated Symptoms Associated Symptoms: Bit her tongue. Narrative Narrative: Patient is an 81-year-old woman who was scheduled for a cardiac cath due to abnormal stress test per review of prior records. This was canceled when patient had a seizure. She was admitted to the epileptic unit at [facility]. Her medications were changed. She has been compliant with her meds. She had a witnessed seizure today. When I entered the room patient was noted to be hypotensive and has a narrow complex tachycardia that is irregular consistent with atrial fibrillation. She does have wide-complex beats noted which may represent ventricular premature beats versus a parent beats. She was unaware that her heart rate was fast or irregular. Presently she denies lightheadedness. She states prior to arrival she did. She denies black or maroon-colored stool. Denies abdominal pain. She denies chest discomfort. Denies shortness of breath. She denies swelling of her lower extremities. She denies orthopnea or PND. She denies dyspnea on exertion. Per cardiovascular records patient does have history of paroxysmal atrial fibrillation and hypertension. And the reason for the cardiac cath was due to an abnormal stress test. Patient presently has no complaints. Quite a fan member she is stuttering. She does not have history of stuttering. Prior similar symptoms: Yes Recent Illness/Hospitalization: Yes [facility] Medical History Acute postoperative pain of right knee Ambulates with cane Arthritis Atherosclerotic heart disease of [place] coronary artery without angina pectoris Back pain Cardiology follow-up encounter Cellulitis of chest wall Chronic constipation Chronic cough Debility Depression Diabetes Diabetes mellitus Diabetic polyneuropathy Dietary restriction DM2 (diabetes mellitus, type 2) Epilepsy Essential hypertension Former smoker H/O cardiac murmur History of atrial fibrillation History of echocardiogram History of left heart catheterization (LHC) (~11/17/18) History of pain when walking History of steroid therapy History of stress test Hx of back injury Hx of vaginal delivery Hypertension Hypertension Inability to ambulate due to knee Injury of back Injury of head and neck Nephrolithiasis Neuropathy Neuropathy, diabetic Paroxysmal atrial fibrillation Vitamin D deficiency Wears glasses Home Medications lisinopril 20 mg tablet 20 mg PO DAILY HTN 11/21/14 [History Last Taken 05/30/22] metformin 500 mg tablet 500 mg PO BID Diabetes 09/13/18 [History Last Taken 05/31/22] duloxetine 30 mg capsule,delayed release 30 mg PO DAILY Neuropathy 09/22/20 [History Last Taken 05/31/22] clonazepam 0.5 mg tablet 0.5 mg PO QHS for seizure activity 05/11/22 [History Last Taken 05/30/22] lamotrigine 25 mg tablet 50 mg PO BID for Seizure activity 05/18/22 [History Last Taken 05/31/22] aspirin 81 mg chewable tablet 81 mg PO DAILY 05/31/22 [History Last Taken 05/30/22] cyanocobalamin (vitamin B-12) 1,000 mcg tablet 1,000 mcg PO DAILY SUPPLEMENT 05/31/22 [History Last Taken 05/31/22] diltiazem HCl 120 mg capsule,extended release 24 hr 120 mg PO DAILY #30 caps 05/31/22 [Rx Last Taken Unknown] Allergy/AdvReac Type Severity Reaction Status Date / Time bacitracin Allergy Rash Verified 05/31/22 13:19 [From Neosporin ([id number])] bacitracin zinc Allergy Rash Verified 05/31/22 13:19 [From Neosporin ([id number])] neomycin sulfate Allergy Rash Verified 05/31/22 13:19 [From Neosporin ([id number])] polymyxin B Allergy Rash Verified 05/31/22 13:19 [From Neosporin ([id number])] sulfamethoxazole Allergy Itching Verified 05/31/22 13:19 [From Bactrim] trimethoprim [From Bactrim] Allergy Itching Verified 05/31/22 13:19 codeine AdvReac Nausea Verified 05/31/22 13:19 milk AdvReac Nausea/Vom/ Verified 05/31/22 13:19 Diarrhea Family History Father No problems noted. Mother No problems noted. Surgical History Amputated toe of right foot Deviated septum History of appendectomy History of cardiac catheterization History of cholecystectomy History of hysterectomy History of neck surgery History of tonsillectomy History of total right knee replacement (TKR) Hx of cystoscopy Hx of fusion of cervical spine S/P total knee arthroplasty Social History household members: spouse Smoking Status: Former smoker alcohol intake: never substance use type: does not use caffeine: No what type of physical activity do you participate in: other details: physical therapy seatbelt use: always do you feel safe at home: Yes ROS ROS ED Review of Systems ROS Unobtainable: due to mental status and other Details: Postictal after seizure Constitutional Constitutional ED: Denies chills, fever(s), subjective, sweats or weight loss Eyes Eyes: Denies blurry vision, change in vision or diplopia ENT ENT ED: Denies ear pain, rhinorrhea or sore throat Cardiovascular Cardiovascular: Denies chest pain, orthopnea, palpitations, paroxysmal nocturnal dyspnea or racing heartbeat Respiratory/Chest Respiratory/Chest: Denies cough, dyspnea, dyspnea on exertion, orthopnea or paroxysmal nocturnal dyspnea Gastrointestinal Gastrointestinal: Denies abdominal pain, diarrhea, melena, nausea or vomiting Genitourinary Genitourinary ED: Denies dysuria, hematuria or urinary frequency Musculoskeletal Musculoskeletal: Denies arthralgias, back pain, myalgias or neck pain Integumentary Denies abscess or Abrasions Neurologic Neurologic: Denies headache(s), paresthesias or weakness Psychiatric Psychiatric: Denies anxiety or depression Endocrine Endocrinology: Denies cold intolerance or heat intolerance Hematologic/Lymphatic Hematologic/Lymphatic: Reports systems reviewed and no addt'l complaints, except as documented EXAM Physical Exam Const Vital Signs: 05/31/22 13:08 05/31/22 13:51 05/31/22 15:00 Temperature 97.6 F L Temperature Source Temporal Pulse Rate 135 H 133 H 127 H Respiratory Rate 32 H 23 H 28 H Blood Pressure 110/75 95/71 116/71 Blood Pressure Mean 86 79 86 Pulse Ox 94 97 93 Oxygen Delivery Method Nasal Cannula Room Air Nasal Cannula Oxygen Flow Rate (L/min) 2 2 Positive well nourished, well developed and obese Constitutional Narrative: Blood pressure when I am in the room was 87 systolic. Repeat was 95 systolic. General Appearance ED: well developed and NAD; Negative for cyanotic, diaphoretic or pallor Nutritional Appearance: obese HEENT Reports moist mucous membranes HEENT Narrative: Head is atraumatic no cephalic. Ears normal. Nares patent. Uvula is midline. No deviation with protrusion. Eyes PERRL and EOMs intact bilaterally General Eye ED: Negative for pale conjunctiva or scleral icterus Neck no lymphadenopathy, supple and no JVD Neck Narrative: Trachea is midline. Chest Wall inspection of chest normal and palpation of chest normal Resp normal respiratory effort and No clear to auscultation bilaterally Resp Narrative: Patient is tachypneic. She is not hypoxic. She is presently on 2 L by nasal cannula. Auscultation: rales bilateral base Cardio no murmurs Rate: tachycardic Rhythm: abnormal rhythm irregularly irregular GI normal to inspection, nondistended, normoactive bowel sounds, non-tender and non-distended; Negative for hepatosplenomegaly GI Narrative: Patient has a reducible umbilical hernia. Back/Spine no CVA tenderness Neuro oriented x3 and no sensory deficits noted Sensorium / Orientation: alert Motor Exam: strength 5/5 throughout Psych mental status grossly normal Skin no rashes or lesions noted, no wounds and skin turgor normal General Skin Exam: Negative for jaundice or pallor MDM MDM MDM Narrative Medical decision making narrative: Patient presented with seizure. She has known history of seizures. These have been occurring over the past 6 weeks according to family member. [facility] from [facility] was reviewed. Cardiovascular med records were reviewed and patient's EF is noted to be 54%. Stress test was abnormal and reason for scheduled cardiac catheterization which has not been rescheduled because of her seizures. Review of cardiovascular records also indicates the patient is on anticoagulant. Since patient is in A. fib RVR and hypotensive will treat with IV fluids since patient does not know what her EF is and plan was to review cardiovascular records prior to initiating treatment. Chest x-ray was obtained because of bibasilar rales to evaluate for congestive heart failure. Troponin was obtained as well as BNP to evaluate for cardiac ischemia. Basic metabolic panel was obtained to assess renal function, glucose since she is diabetic as well as anion gap. CBC to assess for anemia. I was informed by nursing staff at 1514 the patient was seizing. When I entered the room she is awake talking moving her arms and legs in an upward and downward fashion. This is not typical of a generalized tonic-clonic seizure. There is no loss of postural tone. There is no loss of conscious. Patient's blood pressure did improve after the fluid bolus. Patient rhythm reveals atrial fibrillation with RVR. We will administer 10 mg of Cardizem IV push. Since patient is scheduled for outpatient cardiac cath and patient has paroxysmal atrial for will discuss use of anticoagulant with Dr. Garcia covering for Dr. Payan. Also to follow-up outpatient therapy. Based on what I witnessed the emergency department do not believe patient had a seizure. She may have had a seizure prior to her arrival. Record from [facility] was obtained and reviewed. In the report there was a comment made that she had a video EEG monitoring for 24 hours . She was seen by Dr. Tate. There was documentation that portion of the note were copied. The neuro exam revealed no focal findings. She has not had a seizure in over 50 years. She was treated with Dilantin at the time and tapered off. There is no documentation regarding the results of the VEEG. Will have patient follow-up with Dr. Tate. Based on what I witnessed I do not believe patient had a seizure. This could possibly represent a partial complex seizure involving the parietal lobes. Case discussed with Dr. Garcia recommended I speak with Dr. Beka Payan she is scheduled for cardiac catheterization on Tuesday. He was informed that she presented for seizure and found to have A. fib RVR. Since she is having seizures he recommended not prescribing anticonvulsant. She was given a prescription for Cardizem 120. She is to keep appointment with him. Lab Data Attestation: I reviewed the patient's lab results. Lab results narrative: CBC is unremarkable. Glucose is 112. This would not explain her seizure. Labs: Laboratory Results - last 24 hr 05/31/22 05/31/22 05/31/22 12:55 12:55 12:55 WBC 5.8 RBC 4.15 L Hgb 13.1 Hct 41.4 MCV 99.8 H MCH 31.6 MCHC 31.6 L RDW Std Deviation 50.4 H RDW Coeff of Robert 13.8 Plt Count 220 MPV 9.6 Immature Gran % (Auto) 0.300 Neut % (Auto) 67.6 Lymph % (Auto) 17.8 L Bell % (Auto) 9.8 Eos % (Auto) 4.0 Baso % (Auto) 0.5 Absolute Neuts (auto) 3.9 Absolute Lymphs (auto) 1.03 Nucleated RBC % 0 PT 13.9 INR 1.1 APTT 29.1 Sodium 139 Potassium 3.8 Chloride 105 Carbon Dioxide 26.0 Anion Gap 8 BUN 10 Creatinine 0.86 Estim Creat Clear Calc 46.40 Est GFR (MDRD) Af Amer 81 Est GFR (MDRD) Non-Af 67 BUN/Creatinine Ratio 11.7 Glucose 120 H Lactic Acid Calcium 8.9 Troponin I High Sens 18 POC Glucose 05/31/22 05/31/22 13:27 14:22 WBC RBC Hgb Hct MCV MCH MCHC RDW Std Deviation RDW Coeff of Robert Plt Count MPV Immature Gran % (Auto) Neut % (Auto) Lymph % (Auto) Bell % (Auto) Eos % (Auto) Baso % (Auto) Absolute Neuts (auto) Absolute Lymphs (auto) Nucleated RBC % PT INR APTT Sodium Potassium Chloride Carbon Dioxide Anion Gap BUN Creatinine Estim Creat Clear Calc Est GFR (MDRD) Af Amer Est GFR (MDRD) Non-Af BUN/Creatinine Ratio Glucose Lactic Acid 1.7 Calcium Troponin I High Sens POC Glucose 112 H Radiography Diagnostic Testing: Clinical Impression(s) from Imaging Studies Chest X-Ray 05/31/22 13:51 IMPRESSION: Hyperinflation. The lungs are clear. Electronically Signed: Amol Hannon MD at 15:09 EST , EKG Initial EKG: Attestation: I personally reviewed and interpreted this EKG as follows: Interpretation: Atrial Fibrillation (Ventricular rate 122. There are premature ventricular beats versus aberrant beats noted. QRS duration 46 ms. QT duration 300 ms. There is evidence of a left bundle branch block.) Follow-up EKG: Attestation: I personally reviewed and interpreted this EKG as follows: Interpretation: Sinus Rhythm (Ventricular rate is 93. There is first- degree AV block with HI interval of 232 ms. There are premature beats noted. QS duration 146 ms morphology is consistent with left bundle branch block. QT durations are 94 ms. There is no acute ischemic changes. This was after patient received 10 mg of Ca) Discharge Plan Triage Chief Complaint: Neuro S/Sx ED Provider: Aram Golden Dx/Rx/DC Orders Clinical Impression: Atrial fibrillation with rapid ventricular response, Essential hypertension, DM2 (diabetes mellitus, type 2), Breakthrough seizure, Acute hypotension, Seizure disorder Prescriptions: New diltiazem HCl 120 mg capsule,extended release 24hr 120 mg PO DAILY Qty: 30 0RF No Action metformin 500 mg tablet 500 mg PO BID duloxetine 30 mg capsule,delayed release(DR/EC) 30 mg PO DAILY lisinopril 20 MG tablet 20 mg PO DAILY Label Comments: Blood pressure aspirin 81 mg Tablet,Chewable 81 mg PO DAILY cyanocobalamin (vitamin B-12) 1,000 mcg Tablet 1,000 mcg PO DAILY clonazepam 0.5 mg tablet 0.5 mg PO QHS Rx Instructions: administer 30 minutes before bedtime lamotrigine 25 mg tablet 50 mg PO BID Primary Care Provider: Nahomy Bettencourt Referrals: Nahomy Bettencourt MD [Primary Care Provider] - Beka Payan MD [Med Staff - Active Staff] - Keep José Miguel appointment Ephraim Tate MD [Non-Staff] - 3-5 Days Disposition Disposition: Home, Self Care
[2022-05-31 14:25] LABS: International Normalized Ratio 1.1; Partial Thromboplast Time 29.1 Seconds (24.1-36.2); Prothrombin Time (Protime)PT. 13.9 SECONDS (11.7-14.9)
[2022-05-31 14:29] LABS: Anion Gap 8 (5-15); BUN 10 mg/dL (7-18); BUN/Creat Ratio 11.7 RATIO (10-20); Calcium,Total 8.9 mg/dL (8.5-10.1); Chloride 105 mmol/L (98-107); Creatinine, Serum 0.86 mg/dL (0.55-1.02); EST Glomerular Filtration Rate 67 mL/min (>60); Est Glom Filt Rate - Afr Amer 81 mL/min (>60); Glucose 120 mg/dL (74-106); Potassium 3.8 mmol/L (3.5-5.1); Sodium Level 139 mmol/L (136-145); Troponin-I HS 18 pg/mL (3.0-54.0)
[2022-05-31 14:56] LABS: Lactic Acid 1.7 mmol/L (0.4-1.9)
[2022-05-31 15:00] VITALS: BP 116/71; PULSE 127; RESP 28; O2SAT 93
[2022-05-31] MEDS: dilTIAZem 25 MG/5 ML Vial 10 MG IV BOLUS (15:21)
--- NOTE | 2022-05-31 15:56 | EKG12_ITS ---
Test Reason : REPEAT Blood Pressure : / mmHG Vent. Rate : 093 BPM Atrial Rate : 093 BPM P-R Int : 232 ms QRS Dur : 146 ms QT Int : 394 ms P-R-T Axes : 026 -23 102 degrees QTc Int : 489 ms Sinus rhythm with 1st degree A-V block with frequent Premature ventricular complexes Left bundle branch block Abnormal ECG Confirmed by PRAKASH LYNN, LISA ([id number]), online editor MAMADOU TROY ([id number]) on 06/03/2022 8:40:52 AM Referred By: Confirmed By:LISA RANDALL MD
[2022-05-31] MEDS: Acetaminophen 325 MG Tablet PO (16:13)
[2022-05-31 17:00] VITALS: BP 107/67; PULSE 94; RESP 32; O2SAT 94
[2022-05-31 17:10] VITALS: BP 107/67; PULSE 95; RESP 18; TEMP 36.7; O2SAT 95
== END 2022-05-31 18:21 | disposition home or self-care (01) ==
PROVIDERS: Emergency Provider Emergency Medicine; PCP Family Medicine; Visit Provider Emergency Medicine
DX: G40.909 Epilepsy, unspecified, not intractable, without status epilepticus (principal); E11.40 Type 2 diabetes mellitus with diabetic neuropathy, unspecified; I48.91 Unspecified atrial fibrillation; I95.9 Hypotension, unspecified; Z87.891 Personal history of nicotine dependence; I10 Essential (primary) hypertension; R94.39 Abnormal result of other cardiovascular function study; I25.10 Atherosclerotic heart disease of native coronary artery without angina pectoris; E66.9 Obesity, unspecified
CPT/HCPCS: 71045; 80048; 82962; 83605; 84484; 85025; 85610; 85730; 93005; 96361; 96374; 99285; J7040; A4216

== ENCOUNTER 2022-06-02 07:03 | Day surgery (SDC) | payer MEDICARE, OTHER, SELFPAY ==
--- NOTE | 2022-05-31 15:17 | HP.PCM_ITS ---
History and Physical Date of Admission: 06/02/22 [facility] [address] [place] [address] MR#: [id number] Acct: [id number] Name:MAGDY CURRIE Rep #: [id number] : 1940 ?Provider: ?TRUDY Arias Age/Sex:? 81/F Location: [facility] [place].[facility] Status: Signed HPI [facility] History of Present Illness Details: MAGDY MIRAMONTES, is a 81 F who presents to the office today for a cardiovascular follow-up.? She has a history of paroxysmal atrial fibrillation and hypertension. She was in the office in February for an overdue followup.? Her PCP? was concerned about her having an angina pectoris equivalent with respect to diaphoresis with exertional effort during hander in.Pt notes that she will be breaking out in a sweat with the smallest activity.? This has been going on for the last few weeks.? She does not have any chest pain/pr essure/tightness.? Her energy level has decreased since the last time that she was here.? She finds that that is more easily fatigued with chores.? She does not have any irregular heart beats that she is aware of.? She does not have any edema. ECG done at PCP office demonstrated sinus rhythm with an underlying first-degree AV block with occasional PACs and an underlying left bundle branch block pa ttern. LBBB is new. This LBBB is new. She did undergo a stress test which was abnormal.? She was previously scheduled for a heart cath however this was postponed due to hospital stay for new onset of seizures. She notes that since her hospital stay she has been fatigued and has not been active but is still concerned about her abnormal stress test. Intake Vital Signs ? 03/15/2214:59 04/24/2217:22 05/18/2312:59 Height 5 ft 6 in 5 ft 6 in 5 ft 6 in Weight: ? ? 194 lb BMI ? ? 31.3 BP ? ? 111/71 Blood Pressure Location ? ? Lt brachial Position ? ? Sitting Respiration ? ? 18 Pulse ? ? 95 Pulse Source ? ? Monitor Pulse Oximetry (%) ? ? 96 Intake Visit Reasons:?s/p hosp/ records given to PFM Colleter Required: No Is patient in pain?: No Allergies bacitracin [From Neosporin ([id number])] Allergy (Verified 05/18/22 14:04) Rashbacitracin zinc [From Neosporin (gje-vtj-[id number])] Allergy (Verified 05/18/22 14:04) Rashneomycin sulfate [From Neosporin (yar-cft-lrhbl)] Allergy (Verified 05/18/22 14:04) Rashpolymyxin B [From Neosporin (hjv-jqw-chkah)] Allergy (Verified 05/18/22 14:04) Rashsulfamethoxazole [From Bactrim] Allergy (Verified 05/18/22 14:04) Itchingtrimethoprim [From Bactrim] Allergy (Verified 05/18/22 14:04) Itchingcodeine Adverse Reaction (Verified 05/18/22 14:04) Nauseamilk Adverse Reaction (Verified 05/18/22 14:04) Nausea/Vom/Diarrhea Medications biotin 1 mg capsule 1,000 mg PO DAILY supplement 11/21/14 [History Confirmed 05/18/22] lisinopril 20 mg tablet 20 mg PO DAILY HTN 11/21/14 [History Confirmed 05/18/22] metformin 500 mg tablet 500 mg PO BID Diabetes 09/13/18 [History Confirmed 05/18/22] duloxetine 30 mg capsule,delayed release 30 mg PO DAILY Neuropathy 09/22/20 [History Confirmed 05/18/22] lorazepam 0.5 mg tablet (Ativan) 0.5 mg PO TID PRN anxiety #10 tabs 04/24/22 [Rx Confirmed 05/18/22] clonazepam 0.5 mg tablet 0.5 mg PO QHS for seizure activity 05/11/22 [History Confirmed 05/18/22] aspirin 325 mg tablet 325 mg PO DAILY 05/12/22 [History Confirmed 05/18/22] pregabalin 75 mg capsule 75 mg PO TID PRN 05/12/22 [History Confirmed 05/18/22] lamotrigine 25 mg tablet 100 mg PO BID for Seizure activity 05/18/22 [History Confirmed 05/18/22] linaclotide 145 mcg capsule (Linzess) 145 mcg PO DAILY 05/18/22 [History Confirmed 05/18/22] PFSH Medical History? Acute postoperative pain of right knee Ambulates with cane Arthritis Atherosclerotic heart disease of tribal coronary artery without angina pectoris Back pain Cardiology follow-up encounter Cellulitis of chest wall Chronic constipation Chronic cough Debility Depression Diabetes Diabetes mellitus Diabetic polyneuropathy Dietary restriction DM2 (diabetes mellitus, type 2) Epilepsy Essential hypertension Former smoker H/O cardiac murmur History of atrial fibrillation History of echocardiogram History of left heart catheterization (LHC) (~11/17/18) History of pain when walking History of steroid therapy History of stress test Hx of back injury Hx of vaginal delivery Hypertension Hypertension Inability to ambulate due to knee Injury of back Injury of head and neck Nephrolithiasis Neuropathy Neuropathy, diabetic Paroxysmal atrial fibrillation Vitamin D deficiency Wears glasses Surgical History? Amputated toe of right foot Deviated septum History of appendectomy History of cardiac catheterization History of cholecystectomy History of hysterectomy History of neck surgery History of tonsillectomy History of total right knee replacement (TKR) Hx of cystoscopy Hx of fusion of cervical spine S/P total knee arthroplasty Family History? Father? No problems noted. Mother? No problems noted. Social History? household members:? spouse Smoking Status:? Former smoker alcohol intake:? never substance use type:? does not use caffeine:? No what type of physical activity do you participate in:? other details: physical therapy seatbelt use:? always do you feel safe at home:? Yes ROS Const Const: Positive for fatigue, weakness and excessive sweating; Negative for headache(s), frequent falls, weight gain or weight loss Eyes Eyes: Negative for blind spots, loss of peripheral vision, transient loss of vision, blurry vision, change in vision or double vision ENT ENT: Negative for headache(s), dizziness, tinnitus, Nosebleed/epistaxis or balance problems Cardio Chest Pain: No Palpitations: No Edema: None Muscle aches with walking: None Resp Respiratory: Positive for SOB with activity; Negative for SOB at rest, SOB orthopnea\SOB lying down or Cough GI GI: Negative nausea, vomiting, heartburn, bloating, vomiting blood/hematemesis, bright, red blood in stools or black,tarry stools : Negative for hematuria Musc Musc: Negative for muscle aches/ myalgia, muscle weakness, joint pain or balance problems Skin Skin: Negative rash or wounds Neuro Neuro: Positive for weakness; Negative for dizziness, lightheadedness, near syncope, syncope, orthostatic symptoms, frequent falls, headache(s), confusion, memory loss, restless legs, blurry vision or double vision Arun Hematologic/Lymphatic: Negative for easy bleeding or easy bruising Endo Endo: Positive for fatigue and excessive sweating; Negative for cold intolerance or heat intolerance Psych Psych: Negative for anxiety or depression Allergy Allergy/Immunology: Negative for rash Cardiology Exam Const Appearance: cooperative, no acute distress, well developed, frail appearing and other (in WC) Nutritional Appearance: overweight Orientation: alert, awake and oriented x3 Head Head: normal to inspection, normocephalic and atraumatic Ears: hearing grossly normal bilaterally Nose: external nose normal Face and Sinus: face symmetric Eyes Eyelids: eyelids normal Conjunctivae: conjunctivae normal Pupils: PERRL EOM: EOM intact bilaterally Neck Neck: normal visual inspection and full ROM Carotids: normal carotid upstroke Chest Chest inspection: normal inspection of the chest, symmetric chest movement and normal respiratory effort Auscultation: Bilateral: Clear to Auscultation Cardio Palpation: normal PMI Rate: regular rate Rhythm: regular rhythm Heart sounds: S1 normal and S2 normal Murmur: Grade 2/6, soft and mid systolic GI GI: normal to inspection, soft and bowel sounds present Neuro General: patient alert, patient awake, patient oriented x3, gait normal and moves all extremities Skin Skin: no rashes or lesions noted Extremities Pulses: Normal: Right Radial Pulse and Left Radial Pulse Lower Extremity Edema: None: Bilateral Psych Psychological: normal affect Supplemental Info Supplemental Information Transthoracic echocardiogram: 01-26-16 Normal LV size. Mild concentric left ventricular hypertrophy. Left ventricular systolic function is normal. The estimated ejection fraction is 60 ?a. Sigmoid septum. Mild (1+) tricuspid valve insufficiency. Pulmonary artery systolic pressure is 28 mmHg. Transthoracic echocardiogram: 09-29-18 Interpretation Summary The study was technically difficult. Left ventricular systolic function is normal. The estimated ejection fraction is 55 %. Mild concentric left ventricular hypertrophy. Sigmoid septum. Trivial mitral valve insufficiency. Mild eccentric tricuspid valve insufficiency. Aortic sclerosis, no stenosis. Right ventricular systolic pressure estimated to be 23 mmHg. Diastolic function is indeterminate. Stress Test Report Date: 04-23-2022 Procedure: Pharmacologic stress nuclear imaging study? Indications: Chest pain; paroxysmal atrial fibrillation; abnormal ECG/left bundle branch block Consent: Per the patient Procedure: The patient underwent pharmacologic (Regadenoson 0.4mg ) evaluation with a peak heart rate of 88 beats per minute (64%predicted maximal heart rate) and a resting blood pressure of 118/70 mmHg and a peak blood pressure of 118/70 mmHg. The baseline ECG demonstrated sinus rhythm; left bundle branch block.? The peak pharmacologic ECG demonstrated continued left bundle branch block. There were no cardiac dysrhythmias pretest, during pharmacologic infusion, or recovery. There was no complaint of chest discomfort during pharmacologic infusion or recovery. The examination was discontinued secondary to completion of protocol. Impression: 1.? Pharmacologic (Regadenoson) evaluation 2.? Peak pharmacologic ECG with sinus rhythm with left bundle branch block. 3.? There were no cardiac dysrhythmias pretest, during pharmacologic infusion, or recovery. 4.? Nuclear images pending Myocardial perfusion imaging study: Technique: The patient was injected with 12.0 millicuries of technetium 99m Cardiolite and subsequently rest SPECT Cardiolite nuclear imaging was obtained in the horizontal long, vertical long, and short axis views. The patient underwent pharmacologic (Regadenoson) evaluation with a peak heart rate of 88 beats per minute (64% percent predicted maximal heart rate) and a resting blood pressure of 118/70 mmHg and a peak blood pressure of 118/70 mmHg. The patient was injected with 36.0 millicuries of technetium 99m Cardiolite and subsequently stress SPECT Cardiolite nuclear imaging was obtained in the horizontal long, vertical long, and short axis views.? A gated Cardiolite study at peak stress was obtained. Interpretation: Rest and stress SPECT Cardiolite nuclear imaging status post realignment, normalization, and attenuation correction demonstrate at rest and stress a small area of subtle diminished tracer uptake in the distal anteroseptal/septal apical segments without significant change, however, status post-rest there is notation of diminished myocardial perfusion/tracer uptake in portions of the distal anterior/anteroapical segments.? There is similar type findings on the resting and stress polar map images.? There is end systolic thickening and brightening.? The gated Cardiolite study demonstrates myocardial thickening and inward wall motion.? The reported LVEF is 54%. Impression: 1.? Rest and stress SPECT currently nuclear imaging demonstrate myocardial perfusion changes potentially compatible with a previous area of myocardial injury/infarction involving portions of the distal anteroseptal/septal apical segments as well as an area of stress-induced myocardial ischemia involving portions of the distal anterior/anteroapical segments, however, an element of shifting soft tissue attenuation/artifact cannot necessarily be excluded as well as contribution from the patient's underlying left bundle branch block phenomena cannot necessarily be excluded. 2.? The gated Cardiolite study reports an LVEF of 54%. Cardiac catheterization: 12-03-2011: [place], [place] IMPRESSION: 1 Normal coronary anatomy (tortuous branches). 2. No hemodynamically significant coronary stenosis. CONCLUSIONS Elevated Left Ventricular End Diastolic Pressure Normal LV size, wall motion,and systolic function LVEF: by LV gram 55 % Consider left ventricular hypertrophy RECOMMENDATIONS Risk factor modification Medical therapy DESCRIPTION OF? PROCEDURE The patient arrived to the procedure lab. The risks and benefits of the procedure as well as a full description of our services here and current unavailability of surgical backup were fully explained to the patient and/or their significant other prior to the catheterization. The Timeout was completed, verifying the correct patient and procedure. The patient's procedural site was prepped and draped in the usual fashion. Local anesthetic was given subcutaneously to right radial region with Lidocaine 2%. Using a modified Seldinger technique, ? Left Coronary Artery selective angiography was performed in multiple views using a 5 Fr. 4.0 [place] catheter. Right Coronary Artery selective angiography was then performed in multiple views using a 5 Fr. JR 4 catheter. Left Ventriculography was performed in MARCELO projection using a 5 Fr. Pigtail catheter. LV to AO pullback pressures were then recorded.The arterial sheath was pulled and a TR Band was applied for hemostasis Cardiac catheterization: 11/2018 CORONARY ANGIOGRAPHY DOMINANCE:? Right Dominant LEFT HEART ASSESSMENT Left Ventricular Ejection Fraction: by LV Gram 55 % Normal LV wall motion Elevated Left Ventricular End Diastolic Pressure LVEDP: 330 mmHg LEFT MAIN: Angiographically normal LEFT ANTERIOR DESCENDING ARTERY: PROX LAD: Smooth: Eccentric: 10 - 25 % stenosis CIRCUMFLEX ARTERY: Angiographically normal RAMUS: Angiographically normal RIGHT CORONARY ARTERY: PROX RCA: Mild luminal irregularities VALVE FINDINGS: Normal Aortic Valve function Normal Mitral Valve function AORTIC ROOT: Angiographically normal Event monitor: 03-01-16 During the 30 day monitoring period the basic rhythm was sinus with a first degree A-V block and an intermittent IVCD pattern with rates from 60-90 bpm . There were no ectopic complexes . No patient symptoms were submitted. Physician Interpretation: Labs: ?? ? LDL Cholesterol 84 mg/dL (0-130) ?? ? HDL Cholesterol 52 mg/dL (40-) ?? ? Triglycerides 99 mg/dL (-199) ?? ? VLDL Cholesterol 20 mg/dL (5-40) Diagnostics: ?? ? Stress Test NM ? Stress Test ? Chest X-Ray ? Pulmonary: ?? ? No Data to Display Assessment and Plan Assessment and Plan (1) Atherosclerotic heart disease of tribal coronary artery without angina pectoris: ?Status:?Chronic ?Plan: Patient's decrease in exercise tolerance, diaphoresis and newly noted left bundle branch block and abnormal stress test would like to pursue a diagnostic heart cath.? As mentioned above this was previously scheduled but needed to be postponed d/t her new onset of seizures and hospitalization.? She will continue with her aspirin and lisinopril for now. (2) Paroxysmal atrial fibrillation: ?Status:?Chronic ?Plan: Pt has not had any recurrence, will continue to monitor. (3) Essential hypertension: ?Status:?Chronic ?Plan: Blood pressure is well controlled on current medications, we do not recommend any changes at this time. (4) Chest pain: ?Status:?Acute (5) Abnormal stress test: ?Status:?Acute ? ? ? Orders: Orders Basic Metabolic Profile (BMP) 05/18/22 R07.9 - Chest pain, unspecified , R94.39 - Abnormal result of other cardiovascular function study ? Partial Thromboplast Time 05/18/22 R07.9 - Chest pain, unspecified , R94.39 - Abnormal result of other cardiovascular function study ? Prothrombin Time w/INR 05/18/22 R07.9 - Chest pain, unspecified , R94.39 - Abnormal result of other cardiovascular function study ? CBC W/Diff, Automated 05/18/22 R07.9 - Chest pain, unspecified , R94.39 - Abnormal result of other cardiovascular function study ? Medications: Discontinued tramadol ?? Discontinued Reason:? By Stop Date 50 mg? PO BID 7 days PRN 0 tabs 0RF Pain 1-3 ?Patient Instructions: Your procedure is schedule for - we will call you with a date and time Nothing to eat or drink after midnight With a small sip of water take your morning medications:Aspirin, lamotrigine, linzess, lisinopril.? Hold your metformin the night before and do not take in the morning.? You will need to hold this for 72 hours after your procedure.? You will need a local combination truck driver.? If you need a stent you will spend the night. Get your labs done this week. Plan Details Follow Up: ? ? 3 Months (MMM) Coding Level of Care Code Off vis,est,level 3 Diagnoses Atherosclerotic heart disease of tribal coronary artery without angina pectoris? I25.10 Paroxysmal atrial fibrillation? I48.0 Essential hypertension? I10 Chest pain? R07.9 Abnormal stress test? R94.39 Coding Level of Care Code Off vis,est,level 3 Diagnoses Atherosclerotic heart disease of tribal coronary artery without angina pectoris? I25.10 Paroxysmal atrial fibrillation? I48.0 Essential hypertension? I10 Chest pain? R07.9 Abnormal stress test? R94.39 05/19/222001 <Electronically signed by Maribell YATES> Date Maribell YATES Cosigner Signature: Date (if applicable) CC:? Dr. Nahomy Bettencourt MD ~ Assessment & Plan Addt'l Comments Addendum: 06-02-2022 I have examined the patient the following changes are noted: The patient's stress test from 04-23-2022 is as noted below. Stress Test Report Date: 04-23-2022 Procedure: Pharmacologic stress nuclear imaging study? Indications: Chest pain; paroxysmal atrial fibrillation; abnormal ECG/left bundle branch block Consent: Per the patient Procedure: The patient underwent pharmacologic (Regadenoson 0.4mg ) evaluation with a peak heart rate of 88 beats per minute (64%predicted maximal heart rate) and a resting blood pressure of 118/70 mmHg and a peak blood pressure of 118/70 mmHg. The baseline ECG demonstrated sinus rhythm; left bundle branch block.? The peak pharmacologic ECG demonstrated continued left bundle branch block. There were no cardiac dysrhythmias pretest, during pharmacologic infusion, or recovery. There was no complaint of chest discomfort during pharmacologic infusion or recovery. The examination was discontinued secondary to completion of protocol. Impression: 1.? Pharmacologic (Regadenoson) evaluation 2.? Peak pharmacologic ECG with sinus rhythm with left bundle branch block. 3.? There were no cardiac dysrhythmias pretest, during pharmacologic infusion, o r recovery. 4.? Nuclear images pending Myocardial perfusion imaging study: Technique: The patient was injected with 12.0 millicuries of technetium 99m Cardiolite and subsequently rest SPECT Cardiolite nuclear imaging was obtained in the horizontal long, vertical long, and short axis views. The patient underwent pharmacologic (Regadenoson) evaluation with a peak heart rate of 88 beats per minute (64% percent predicted maximal heart rate) and a resting blood pressure of 118/70 mmHg and a peak blood pressure of 118/70 mmHg. The patient was injected with 36.0 millicuries of technetium 99m Cardiolite and subsequently stress SPECT Cardiolite nuclear imaging was obtained in the horizontal long, vertical long, and short axis views.? A gated Cardiolite study at peak stress was obtained. Interpretation: Rest and stress SPECT Cardiolite nuclear imaging status post realignment, normalization, and attenuation correction demonstrate at rest and stress a small area of subtle diminished tracer uptake in the distal anteroseptal/septal apical segments without significant change, however, status post-rest there is notation of diminished myocardial perfusion/tracer uptake in portions of the distal anterior/anteroapical segments.? There is similar type findings on the resting and stress polar map images.? There is end systolic thickening and brightening.? The gated Cardiolite study demonstrates myocardial thickening and inward wall motion.? The reported LVEF is 54%. Impression: 1.? Rest and stress SPECT currently nuclear imaging demonstrate myocardial perfusion changes potentially compatible with a previous area of myocardial injury/infarction involving portions of the distal anteroseptal/septal apical segments as well as an area of stress-induced myocardial ischemia involving portions of the distal anterior/anteroapical segments, however, an element of shifting soft tissue attenuation/artifact cannot necessarily be excluded as well as contribution from the patient's underlying left bundle branch block phenomena cannot necessarily be excluded. 2.? The gated Cardiolite study reports an LVEF of 54%. Based upon the patient's history and objective findings the recommendation was made for the patient to have reevaluation in the cardiac catheterization laboratory. The procedure and risk were discussed with the patient. She was agreeable to this approach. In the interim the patient was also noted to present to the [facility] emergency department on 05-31-2022 based upon concerns of recurrent seizure related events. There were also concerns she had recurrence of her PAF with RVR and transient hypotension. She was evaluated by the [facility] emergency department staff and treated with IV diltiazem and IV fluids. She returned to sinus rhythm and had improvement in her blood pressure. A recommendation was made to initiate low-dose calcium channel antagonist therapy such as diltiazem CD at 120 mg p.o. daily to assist with her rate and rhythm but to hold on anticoagulant therapy based upon concerns of recurrent seizure disorder activity. The patient's case was discussed and reviewed with the patient with her spouse present. This note was generated using a voice recognition system and there may be incorrect words, spelling or punctuation that were not noted when reviewing the office note prior to saving.
[2022-06-01 07:49] VITALS: BMI 31.3
--- NOTE | 2022-06-02 09:05 | CL.D_ITS ---
Patient Name: MAGDY MIRAMONTES Study Date: 06/02/2022 Performing: Beka Payan MD Ht: 66 inches 167.64 cm : 1940 Wt: 194.01 lbs 88 kg Age: 81 Gender: female BSA: 1.97 PROCEDURE(S) PERFORMED [id number])[facility] CLINICAL PROFILE AND INDICATIONS Indications: Suspected CAD Heart Failure: None Stress/Imaging Date: 04/23/2023Stress Test with SPECT MPI: Positive Intermediate Risk Angina Classification Anginal Classification w/in 2 Weeks: CCS III CAD Presentations: Other: fatigue/diaphoresis/angina pectoris equivalent CONCLUSIONS [place] Multivessel CAD (non obstructive) RECOMMENDATIONS Risk factor modification Medical therapy DESCRIPTION OF PROCEDURE The patient arrived to the procedure lab. The risks and benefits of the procedure as well as a full description of our services here and current unavailability of surgical backup were fully explained to the patient and/or their significant other prior to the catheterization. The Timeout was completed, verifying the correct patient and procedure. The patient's procedural site was prepped and draped in the usual fashion. Local anesthetic was given subcutaneously to right radial region with Lidocaine 2%. Using a modified Seldinger technique, arterial access was obtained via the right radial artery, a 6Fr sheath was inserted. Right Coronary Artery selective angiography was then performed in multiple views using a 5 Fr. 4.0 [place] catheter. Left Coronary Artery selective angiography was performed in multiple views using a 5 Fr. JL4 catheter.The arterial sheath was pulled and a TR Band was applied for hemostasis CORONARY ANGIOGRAPHY DOMINANCE: Right Dominant LEFT HEART ASSESSMENT Left Ventricular Ejection Fraction: Not assessed LEFT MAIN: Angiographically normal LEFT ANTERIOR DESCENDING ARTERY: PROX LAD: smooth: eccentric: 10 - 25 % Stenosis CIRCUMFLEX ARTERY: Angiographically normal RAMUS: Angiographically normal RIGHT CORONARY ARTERY: PROX RCA: Mild luminal irregularities COMPLICATIONS No Complications PROCEDURE MEDICATIONS Fentanyl 25 mcg IV Versed 1 mg IV Fentanyl 25 mcg IV Oxygen: 2 L/min via nasal cannula Baby Aspirin (81mg) 1 Tabs PO @ 06/02/2022 07:40:25 Heparin given IA 06/02/2022 08:28:59 Verapamil 2.5mg, Ntg 100mcgs, 3000 units of Heparin given IA 06/02/2022 08:28:59 SUMMARY OF HEMODYNAMIC DATA Time AIR REST ECG 07:35:17 Art 143/60 (85) 08:15:35 AO 122/57 (92) SA 08:31:01 Signed By Beka Payan MD On 06/02/2022 09:04:37 Beka Payan MD
== END 2022-06-02 10:45 | disposition home or self-care (01) ==
LOC: CLSP 07:05
PROVIDERS: PCP Family Medicine; Referring Provider Internal Medicine Cardiovascular Disease; Visit Provider Internal Medicine Cardiovascular Disease
DX: I25.10 Atherosclerotic heart disease of native coronary artery without angina pectoris (principal); E11.42 Type 2 diabetes mellitus with diabetic polyneuropathy; I48.0 Paroxysmal atrial fibrillation; G40.909 Epilepsy, unspecified, not intractable, without status epilepticus; I44.7 Left bundle-branch block, unspecified; I44.0 Atrioventricular block, first degree; R94.39 Abnormal result of other cardiovascular function study; R03.1 Nonspecific low blood-pressure reading; I10 Essential (primary) hypertension; Z79.82 Long term (current) use of aspirin; Z79.84 Long term (current) use of oral hypoglycemic drugs; Z79.899 Other long term (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; Z87.891 Personal history of nicotine dependence
CPT/HCPCS: 93454; 99152; 99153; J7040; Q9967; C1769; C1894

== ENCOUNTER 2022-06-09 12:43 | Inpatient (IN) | payer MEDICARE, OTHER, SELFPAY ==
[2022-06-09] VITALS (17 sets, daily range): BP systolic 99–130; BP diastolic 56–86; PULSE 92–125; RESP 20–37; TEMP 36.4–37.1; O2SAT 90–98; BMI 31.3; BMI 29.9
--- NOTE | 2022-06-09 13:16 | CT_ITS ---
STUDY: CT ABDOMEN AND PELVIS WITH CONTRAST REASON FOR EXAM: Female, 81 years old. 4 day history of abdominal pain. Vomiting. Abdominal distention. RADIATION DOSAGE (If Supplied By Facility): CTDIvol = ( 16.67 ) mGy, DLP = ( 863.81 ) mGycm TECHNIQUE: Transaxial images were obtained from the dome of the diaphragm to the symphysis pubis without oral contrast. IV 100mL Isovue-300 was administered. Sagittal and coronal images were reconstructed. Individualized dose optimization techniques were used for this CT. COMPARISON: Comparison is made with prior study dated 06/15/2021. FINDINGS: Small bilateral pleural effusions right greater than left with bibasilar atelectasis. Coronary artery calcification. Stable 1.6 cm exophytic nodule seen along the posterior aspect of the right lobe of the liver. This most likely dense hepatic tissue. The patient is status post cholecystectomy. Normal spleen. Normal pancreas. Normal bilateral adrenal glands. There is evidence of a right perinephric stranding. Mild degree of left perinephric stranding. Normal visualized stomach. Normal small intestine. There are multiple colonic diverticula consistent with diverticulosis. The appendix is visualized and appears normal. There is scattered atherosclerotic calcification of the abdominal aorta, without a demonstrated aneurysm. Normal inferior vena cava. Normal retroperitoneum. Normal urinary bladder. There is absence of the uterus consistent with a prior hysterectomy. Calcified phleboliths are seen in the pelvis. There is a small umbilical hernia containing fat. There are diffuse degenerative changes of the visualized lumbar spine. Stable lumbar stenosis. CT/Abdomen/Pelvis W IV Cont ONLY IMPRESSION: Small bilateral pleural effusions with the left basilar atelectasis is more prominent on the right side. The patient is status post cholecystectomy as well as hysterectomy. Sigmoid diverticulosis. Nonspecific bilateral perinephric stranding more prominent on the right side. Electronically Signed: Amol Hannon MD at 14:50 EST ,
--- NOTE | 2022-06-09 13:16 | RAD_ITS ---
EXAM: XR CHEST, 1 VIEW CLINICAL INDICATION: SOB. TECHNIQUE: Frontal view of the chest. This report was created using [employer] report generation technology. COMPARISON: 05/31/2022. FINDINGS: LUNGS AND PLEURAL SPACES: Prominent pulmonary interstitial markings worrisome for mild pulmonary interstitial edema. No pneumothorax. No effusion. HEART: Mild cardiomegaly is unchanged. MEDIASTINUM: Central airways and mediastinal contour are unremarkable. BONES/JOINTS: Unremarkable. SOFT TISSUES: Unremarkable. RAD/Chest 1 View (Portable) IMPRESSION: Suspicious mild acute CHF. This is a new finding when compared to 05/31/2022. Advise clinical correlation. Electronically Signed: Chente Grimaldo MD at 15:02 EST ,
[2022-06-09] MEDS: Ondansetron 4 MG/2 ML Vial IV (13:28)
[2022-06-09] MEDS: 0.9% Normal Saline 1,000 ML 1000 ML IV (13:28)
[2022-06-09] MEDS: Morphine 4 MG/ML Syringe IV (13:28)
--- NOTE | 2022-06-09 13:33 | EDS_ITS ---
HPI HPI - GI History of Present Illness Chief Complaint: Abd Pain Informant: patient Narrative Narrative: Patient is tanya 81 year old female with a history of diabetic neuropathy, proximal atrial fibrillation, seizure disorder, hypertension, chronic constipation (on Linzess) and recent cardiac catheterization due to indeterminate stress test per . She is presenting with worsening abdominal pain and nausea. Patient states she is been having abdominal pain for the past 4 to 5 days. She had decreased passage of gas but did have a bowel movement this morning. She feels that her abdomen is distended. She has had nausea and some mild vomiting that she states is more like spitting up. She is having diffuse abdominal pain. She denies any black or blood in her vomit or her stool. She states she had a history of cholecystectomy, appendectomy and tubal ligation. She was told that she may be has a hernia but was not really clear about where it was. She denies any fever. She does feel short of breath and has not really had anything to eat or drink in the past few days due to her symptoms. Denies any chest pain. Prior similar symptoms: No PFSH PFSH Medical History Acute postoperative pain of right knee Ambulates with cane Arthritis Atherosclerotic heart disease of [place] coronary artery without angina pectoris Back pain Cardiology follow-up encounter Cellulitis of chest wall Chronic constipation Chronic cough Debility Depression Diabetes Diabetes mellitus Diabetic polyneuropathy Dietary restriction DM2 (diabetes mellitus, type 2) Epilepsy Essential hypertension Former smoker H/O cardiac murmur History of atrial fibrillation History of echocardiogram History of left heart catheterization (LHC) (~06/02/22) History of pain when walking History of steroid therapy History of stress test Hx of back injury Hx of vaginal delivery Hypertension Hypertension Inability to ambulate due to knee Injury of back Injury of head and neck Nephrolithiasis Neuropathy Neuropathy, diabetic Paroxysmal atrial fibrillation Vitamin D deficiency Wears glasses Home Medications lisinopril 20 mg tablet 20 mg PO QHS BLOOD PRESSURE 11/21/14 [History Last Taken 06/08/22] metformin 500 mg tablet 500 mg PO BID DIABETES 09/13/18 [History Last Taken 06/09/22] duloxetine 30 mg capsule,delayed release 30 mg PO DAILY NEUROPATHY 09/22/20 [History Last Taken 06/09/22] clonazepam 0.5 mg tablet 0.5 mg PO QHS SEIZURES 12/27/22 [History Last Taken 06/08/22] lamotrigine 25 mg tablet 75 mg PO BID SEIZURES 05/18/22 [History Last Taken 06/09/22] cyanocobalamin (vitamin B-12) 1,000 mcg tablet 1,000 mcg PO DAILY SUPPLEMENT 05/31/22 [History Last Taken 06/09/22] aspirin 81 mg tablet,delayed release 81 mg PO DAILY HEART HEALTH 06/09/22 [History Last Taken 06/09/22] biotin 1 mg tablet 1,000 mcg PO DAILY SUPPLEMENT 06/09/22 [History Last Taken 06/09/22] linaclotide 145 mcg capsule (Linzess) 145 mcg PO DAILY PRN Constipation 06/09/22 [History Last Taken Unknown] tramadol 50 mg tablet 50 - 100 mg PO DAILY PRN Pain 06/09/22 [History Last Taken 06/09/22] Allergy/AdvReac Type Severity Reaction Status Date / Time bacitracin Allergy Rash Verified 06/09/22 12:49 [From Neosporin ([id number])] bacitracin zinc Allergy Rash Verified 06/09/22 12:49 [From Neosporin ([id number])] neomycin sulfate Allergy Rash Verified 06/09/22 12:49 [From Neosporin ([id number])] polymyxin B Allergy Rash Verified 06/09/22 12:49 [From Neosporin ([id number])] sulfamethoxazole Allergy Itching Verified 06/09/22 12:49 [From Bactrim] trimethoprim [From Bactrim] Allergy Itching Verified 06/09/22 12:49 codeine AdvReac Nausea Verified 06/09/22 12:49 milk AdvReac Nausea/Vom/ Verified 06/09/22 12:49 Diarrhea Family History Father No problems noted. Mother No problems noted. Surgical History Amputated toe of right foot Deviated septum History of appendectomy History of cholecystectomy History of hysterectomy History of neck surgery History of tonsillectomy History of total right knee replacement (TKR) Hx of cystoscopy Hx of fusion of cervical spine S/P total knee arthroplasty Social History household members: spouse Smoking Status: Former smoker alcohol intake: never substance use type: does not use caffeine: No what type of physical activity do you participate in: other details: physical therapy seatbelt use: always do you feel safe at home: Yes ROS ROS ED Constitutional Constitutional ED: Denies chills or fever(s) ENT ENT ED: Denies sore throat Cardiovascular Cardiovascular: Denies chest pain or palpitations Respiratory/Chest Respiratory/Chest: Reports dyspnea; Denies cough Gastrointestinal Gastrointestinal: Reports abdominal pain, constipation, nausea and vomiting; Denies melena Genitourinary Genitourinary ED: Denies dysuria or hematuria Musculoskeletal Musculoskeletal: Denies arthralgias, back pain or myalgias Integumentary Denies rash Neurologic Neurologic: Reports weakness; Denies headache(s) Psychiatric Psychiatric: Denies anxiety Hematologic/Lymphatic Hematologic/Lymphatic: Denies easy bleeding or easy bruising EXAM Physical Exam Const Vital Signs: 06/09/22 12:46 06/09/22 12:53 06/09/22 13:31 Temperature 97.5 F L Temperature Source Temporal Pulse Rate 125 H 116 H Respiratory Rate 37 H 32 H Blood Pressure 119/86 H 113/79 Blood Pressure Mean 97 90 Pulse Ox 90 93 92 Oxygen Delivery Method Room Air Nasal Cannula Nasal Cannula Oxygen Flow Rate (L/min) 2 3 06/09/22 15:00 06/09/22 16:00 Temperature Temperature Source Pulse Rate 118 H 115 H Respiratory Rate 28 H 32 H Blood Pressure 120/80 130/75 H Blood Pressure Mean 93 93 Pulse Ox 91 92 Oxygen Delivery Method Nasal Cannula Nasal Cannula Oxygen Flow Rate (L/min) 3 3 Positive well nourished and well developed Constitutional Narrative: Uncomfortable appearing General Appearance ED: well developed HEENT Reports dry mucous membranes normocephalic and atraumatic Mouth ED: Yes dry mucous membranes Mouth: dry mucous membranes Eyes PERRL and EOMs intact bilaterally Neck supple and no JVD Resp clear to auscultation bilaterally Resp Narrative: Mild tachypnea Cardio Rate: tachycardic Rhythm: abnormal rhythm irregularly irregular GI Inspection: abdominal distention Auscultation: hypoactive bowel sounds Palpation: soft and tender other (Diffuse); Negative for guarding, rigid, hernia or mass Back/Spine no CVA tenderness Extremity full ROM General Extremety ED: Negative for edema or tenderness General Extremity: Negative for edema Neuro moves all extremities and no sensory deficits noted Motor Exam: general weakness Psych mental status grossly normal and thought process normal Skin no wounds Rashes: no rashes MDM MDM MDM Narrative Medical decision making narrative: EMS report reviewed independently by myself. They noticed a large bulge in her abdominal area that was nonpulsating at time of transfer. She not receive any medications in route. Prior cardiac catheterization report from last week reviewed independently by myself which did not show any significant coronary artery stenosis and medical management was recommended. Patient is ordered IV morphine, Zofran and fluids. Concern is for acute surgical abdominal process such as small bowel obstruction, diverticulitis, intra-abdominal infection as well as dehydration. Patient does not have significant improvement of her tachycardia in the ER and is given a dose of 10 mg IV Cardizem. Her lab work shows a mild leukocytosis 11.4 and a mild hypokalemia of 3.3 which is consistent with her vomiting. Her lactate is normal and she does not have any other significant laboratory ab normalities on her CBC and CMP. Patient does have persistent tachypnea as well in the ER and chest x-ray to read by myself as well as radiology suspicious for acute CHF. Patient is not given Lasix. CT of the abdomen and pelvis shows small bilateral pleural effusions as well as nonspecific bilateral perinephric stranding more prominent on the right side. I am still waiting on a urinalysis to see if this is consistent with UTI/pyelonephritis. With patient's persistent tachypnea and signs of fluid overload I will obtain an ABG to make sure that she does not require BiPAP. She is requiring supplemental oxygen between 2 and 3 L currently. Her last echocardiogram in the computer was from 09/29/2018 which is independently reviewed by myself. Shows an EF of 55% with indeterminant diastolic function. Patient has mild improvement of her rate with the Cardizem and started on a Cardizem drip. Patient will require admission to the hospital. Family does voice concern because she is scheduled to have an MRI tomorrow. This will be discussed with the hospitalist. Apparently patient's been having seizure-like activity which is what MRI was ordered. She has follow-up with neurology on June 16. Lab Data Labs: Laboratory Results - last 24 hr 06/09/22 06/09/22 06/09/22 13:33 13:33 13:33 WBC 11.4 H RBC 3.77 L Hgb 12.0 Hct 37.7 MCV 100.0 H MCH 31.8 MCHC 31.8 L RDW Std Deviation 53.1 H RDW Coeff of Robert 14.7 H Plt Count 338 MPV 9.6 Immature Gran % (Auto) 0.400 Neut % (Auto) 76.0 H Lymph % (Auto) 13.9 L [place] % (Auto) 8.0 Eos % (Auto) 0.8 Baso % (Auto) 0.9 Absolute Neuts (auto) 8.7 H Absolute Lymphs (auto) 1.59 Nucleated RBC % 0 Sodium 137 Potassium 3.3 L Chloride 103 Carbon Dioxide 23.0 Anion Gap 11 BUN 17 Creatinine 0.77 Estim Creat Clear Calc 39.90 Est GFR (MDRD) Af Amer 92 Est GFR (MDRD) Non-Af 76 BUN/Creatinine Ratio 22.0 H Glucose 111 H Lactic Acid 1.7 Calcium 9.0 Total Bilirubin 0.80 AST 15 ALT 18 Alkaline Phosphatase 118 H B-Natriuretic Peptide Total Protein 6.6 Albumin 2.8 L Globulin 3.8 Albumin/Globulin Ratio 0.7 L Lipase 65 L TSH 06/09/22 06/09/22 13:33 13:33 WBC RBC Hgb Hct MCV MCH MCHC RDW Std Deviation RDW Coeff of Robert Plt Count MPV Immature Gran % (Auto) Neut % (Auto) Lymph % (Auto) [place] % (Auto) Eos % (Auto) Baso % (Auto) Absolute Neuts (auto) Absolute Lymphs (auto) Nucleated RBC % Sodium Potassium Chloride Carbon Dioxide Anion Gap BUN Creatinine Estim Creat Clear Calc Est GFR (MDRD) Af Amer Est GFR (MDRD) Non-Af BUN/Creatinine Ratio Glucose Lactic Acid Calcium Total Bilirubin AST ALT Alkaline Phosphatase B-Natriuretic Peptide 604.5 H Total Protein Albumin Globulin Albumin/Globulin Ratio Lipase TSH 2.53 ABG Data ABG results: ABG 06/09/22 16:38 Specimen Type ART Sample Site R Brach pH 7.39 Bicarbonate Actual 22.3 Total CO2 23 Base Excess -3 L O2 Saturation 94 L ABG pCO2 36.5 ABG pO2 69 L O2 Delivery Device Cannula Liter Flow 3.0 Radiography Diagnostic Testing: Clinical Impression(s) from Imaging Studies Abdomen/Pelvis CT 06/09/22 13:16 IMPRESSION: Small bilateral pleural effusions with the left basilar atelectasis is more prominent on the right side. The patient is status post cholecystectomy as well as hysterectomy. Sigmoid diverticulosis. Nonspecific bilateral perinephric stranding more prominent on the right side. Electronically Signed: Amol Hannon MD at 14:50 EST , Chest X-Ray 06/09/22 13:16 IMPRESSION: Suspicious mild acute CHF. This is a new finding when compared to 05/31/2022. Advise clinical correlation. Electronically Signed: Chente Grimaldo MD at 15:02 EST , Rhythm Strip Rhythm Strip: A-fib Rate: 124 Ectopy: PVC(s) EKG Initial EKG: Attestation: I personally reviewed and interpreted this EKG as follows: Comments: Atrial fibrillation with rapid ventricular response at a rate of 124 bpm Left axis deviation PVCs versus aberrantly conducted complexes present Left bundle branch block Compared to prior EKG on 05/31/2022 patient now is in atrial fibrillation Discharge Plan Triage Chief Complaint: Abd Pain ED Provider: Vianey Pearson Dx/Rx/DC Orders Prescriptions: No Action metformin 500 mg tablet 500 mg PO BID duloxetine 30 mg capsule,delayed release(DR/EC) 30 mg PO DAILY lisinopril 20 MG tablet 20 mg PO QHS cyanocobalamin (vitamin B-12) 1,000 mcg Tablet 1,000 mcg PO DAILY aspirin [Aspirin Low-Strength] 81 mg Tablet,Delayed Release (Dr/Ec) 81 mg PO DAILY tramadol 50 mg tablet 50 - 100 mg PO DAILY PRN (Reason: Pain) biotin 1 mg Tablet 1,000 mcg PO DAILY Linzess 145 mcg Capsule 145 mcg PO DAILY PRN (Reason: Constipation) clonazepam 0.5 mg tablet 0.5 mg PO QHS lamotrigine 25 mg tablet 75 mg PO BID Primary Care Provider: Nahomy Bettencourt
[2022-06-09 13:40] LABS: Absolute Lymphocyte Count 1.59 X10^3/uL (0.83-4.51); Absolute Neutrophil Count 8.7 X10^3/uL (2.0-7.7); Basophil% 0.9 % (0-1); Eosinophil# 0.09 X10^3/uL; Eosinophils% 0.8 % (0-5); Hematocrit 37.7 % (37-47); Lymphocyte # 1.59 X10^3/ul (0.83-4.51); Lymphocyte % 13.9 % (19-41); Mean Corp Hgb Conc 31.8 g/dL (32-36); Mean Corpuscular Hgb 31.8 pg (27.0-32.0); Mean Platelet Vol. 9.6 fl (6.2-12.0); Monocyte# 0.92 X10^3/uL; NRBC Flagged by Analyzer 0 % (0-5); Neutrophil # 8.68 X10^3/uL (2.7-7.7); Platelet Count 338 K/mm3 (150-450); RBC Distribution Width CV 14.7 % (11.6-14.6); RBC Distribution Width SD 53.1 fl (35.1-43.9); Red Blood Count 3.77 M/mm3 (4.2-5.4); White Blood Count 11.4 K/mm3 (4.4-11.0)
[2022-06-09 13:57] LABS: ALB/GLOB Ratio 0.7 RATIO (0.9-2.4); AST(SGOT) 15 U/L (15-37); Alanine Aminotransfer ALT/SGPT 18 U/L (13-56); Albumin, Serum 2.8 g/dL (3.2-5.0); Alkaline Phosphatase 118 U/L (45-117); Anion Gap 11 (5-15); BUN 17 mg/dL (7-18); Chloride 103 mmol/L (98-107); Creatinine, Serum 0.77 mg/dL (0.55-1.02); EST Glomerular Filtration Rate 76 mL/min (>60); Est Glom Filt Rate - Afr Amer 92 mL/min (>60); Globulin 3.8 g/dL (2.2-4.2); Glucose 111 mg/dL (74-106); Lipase 65 U/L (73-393); Potassium 3.3 mmol/L (3.5-5.1); Protein, Total 6.6 g/dL (6.4-8.2); Sodium Level 137 mmol/L (136-145)
[2022-06-09 14:08] LABS: Lactic Acid 1.7 mmol/L (0.4-1.9)
[2022-06-09 15:18] LABS: BNP,B-Type NATRIURETIC PEPTIDE 604.5 pg/mL (0-100)
[2022-06-09 15:24] LABS: Thyroid Stim Hormone (TSH) 2.53 uIU/mL (0.358-3.74)
[2022-06-09] MEDS: dilTIAZem 25 MG/5 ML Vial 10 MG IV BOLUS (16:15)
[2022-06-09] MEDS: Furosemide 40 MG/4 ML Vial IV (16:24)
[2022-06-09 16:36] LABS: Bacteria 0 SEEN /hpf (None Seen); Mucous, Urine 0 SEEN /hpf (<or=2+)
[2022-06-09 16:46] LABS: Base Excess -3 mmol/L (-2 to +2); Bicarbonate 22.3 mmol/L (22-26); Blood Gas Specimen Type ART; O2 Delivery Device Cannula; PO2 69 mmHG (75-100); SITE R Brach; SO2 94 % (95-99); Total Carbon Dioxide 23 mmol/L; pCO2 36.5 mmHg (35-45); pH 7.39 (7.35-7.45)
[2022-06-09 16:54] LABS: Color, Urine Yellow (Yellow); Glucose, Dipstick NEGATIVE (Normal); Ketone-Dipstick 5 mg/dl (Negative); Protein-Dipstick 15 mg/dl (Negative); Urine Bilirubin Dipstick Negative (Negative); Urine Clarity Clear (Clear)
[2022-06-09 16:55] LABS: Leukocyte Esterase-Dipstick 25 /ul (Negative); Nitrite-Dipstick Negative (Negative); Occult Blood-Urine 25 /ul (Negative); Urine Urobilinogen Normal (Normal)
[2022-06-09 16:57] LABS: Red Blood Cells-Urine 0-5 SEEN /hpf (0-5); Squamous Epithelial Cells - UA 0-5 SEEN /hpf (5-10); White Blood Cells 0-5 SEEN /hpf (0-5)
--- NOTE | 2022-06-09 17:04 | PCM.HP.STD ---
HPI - General General Date of Admission: 06/09/22 Date of Service: 06/09/22 Chief Complaint: abdominal pain HPI Narrative MAGDY MIRAMONTES, is a 81 F with a PMH as outlined who presents via the ED on 06/09/2022 with a complaint of abdominal pain and associated nausea and vomiting which had been going on for ~ 4-5 days. She denied any fever, chills, chest pain, dizziness or any other symptoms. She did complain of shortness of breath and palpitations. She denied any chest pain. Review of systems was otherwise negative. Vitals in the ED were BP of 113/56, [place] of 101, RR of 25 and she was saturating at 91% on 3L of oxygen by nasal canula. CBC showed Hb of 11.4, Hb of 12 and platelets of 338.Chemistry showed potassium fo 3.3 and BNP of 604.5. Lipase was 65. Urinalysis showed no evidence of UTI. The ED she was noted to be tachycardic and found to be in A. fib with RVR. She required Cardizem bolus and required initiation of Cardizem drip which helped control A. fib. Chest x-ray showed prominent pulmonary interstitial markings worrisome for mild pulmonary interstitial edema with no evidence of effusion. CT abdomen and pelvis showed small bilateral pleural effusions with a right greater than the left with bibasilar atelectasis and sigmoid diverticulosis with no evidence of diverticulitis and bilateral nonspecific perinephric stranding more prominent on the right side. Of note she had a cardiac cath just about a week ago on account of an abnormal stress test and the cath showed clean coronaries. She is being admitted to be managed for afib with RVR and acute heart failure of unknown EF. [facility] Medical History Acute postoperative pain of right knee Ambulates with cane Arthritis Atherosclerotic heart disease of [place] coronary artery without angina pectoris Back pain Cardiology follow-up encounter Cellulitis of chest wall Chronic constipation Chronic cough Debility Depression Diabetes Diabetes mellitus Diabetic polyneuropathy Dietary restriction DM2 (diabetes mellitus, type 2) Epilepsy Essential hypertension Former smoker H/O cardiac murmur History of atrial fibrillation History of echocardiogram History of left heart catheterization (LHC) (~06/02/22) History of pain when walking History of steroid therapy History of stress test Hx of back injury Hx of vaginal delivery Hypertension Hypertension Inability to ambulate due to knee Injury of back Injury of head and neck Nephrolithiasis Neuropathy Neuropathy, diabetic Paroxysmal atrial fibrillation Vitamin D deficiency Wears glasses Home Medications lisinopril 20 mg tablet 20 mg PO QHS BLOOD PRESSURE 11/21/14 [History Last Taken 06/08/22] metformin 500 mg tablet 500 mg PO BID DIABETES 09/13/18 [History Last Taken 06/09/22] duloxetine 30 mg capsule,delayed release 30 mg PO DAILY NEUROPATHY 09/22/20 [History Last Taken 06/09/22] clonazepam 0.5 mg tablet 0.5 mg PO QHS SEIZURES 05/11/22 [History Last Taken 06/08/22] lamotrigine 25 mg tablet 75 mg PO BID SEIZURES 05/18/22 [History Last Taken 06/09/22] cyanocobalamin (vitamin B-12) 1,000 mcg tablet 1,000 mcg PO DAILY SUPPLEMENT 05/31/22 [History Last Taken 06/09/22] aspirin 81 mg tablet,delayed release 81 mg PO DAILY HEART HEALTH 06/09/22 [History Last Taken 06/09/22] biotin 1 mg tablet 1,000 mcg PO DAILY SUPPLEMENT 06/09/22 [History Last Taken 06/09/22] linaclotide 145 mcg capsule (Linzess) 145 mcg PO DAILY PRN Constipation 06/09/22 [History Last Taken Unknown] tramadol 50 mg tablet 50 - 100 mg PO DAILY PRN Pain 06/09/22 [History Last Taken 06/09/22] Allergy/AdvReac Type Severity Reaction Status Date / Time bacitracin Allergy Rash Verified 06/09/22 12:49 [From Neosporin ([id number])] bacitracin zinc Allergy Rash Verified 06/09/22 12:49 [From Neosporin ([id number])] neomycin sulfate Allergy Rash Verified 06/09/22 12:49 [From Neosporin ([id number])] polymyxin B Allergy Rash Verified 06/09/22 12:49 [From Neosporin ([id number])] sulfamethoxazole Allergy Itching Verified 06/09/22 12:49 [From Bactrim] trimethoprim [From Bactrim] Allergy Itching Verified 06/09/22 12:49 codeine AdvReac Nausea Verified 06/09/22 12:49 milk AdvReac Nausea/Vom/ Verified 06/09/22 12:49 Diarrhea Family History Father No problems noted. Mother No problems noted. Surgical History Amputated toe of right foot Deviated septum History of appendectomy History of cholecystectomy History of hysterectomy History of neck surgery History of tonsillectomy History of total right knee replacement (TKR) Hx of cystoscopy Hx of fusion of cervical spine S/P total knee arthroplasty Social History household members: spouse Smoking Status: Former smoker alcohol intake: never substance use type: does not use caffeine: No what type of physical activity do you participate in: other details: physical therapy seatbelt use: always do you feel safe at home: Yes ROS Constitutional Constitutional: Reports fatigue, malaise and weakness; Denies anorexia, change in weight, chills or fever(s) Eyes Eyes: Denies change in vision ENT HEENT: Denies dysphagia, headache(s), hearing loss, nasal congestion, nasal discharge, sinus pressure or sore throat Cardiovascular Cardiovascular: Reports dyspnea on exertion, palpitations and rapid heart rate; Denies chest pain, edema, lightheadedness, orthopnea, paroxysmal nocturnal dyspnea or syncope Respiratory/Chest Respiratory/Chest: Reports dyspnea, shortness of breath at rest and shortness of breath with exertion; Denies cough, productive cough or wheezing Gastrointestinal Gastrointestinal: Reports abdominal pain, nausea and vomiting; Denies coffee ground emesis, constipation, diarrhea, dyspepsia, hematemesis or hematochezia Genitourinary Genitourinary: Denies burning urination or dysuria Musculoskeletal Musculoskeletal: Denies arthralgias Neurologic Neurologic: Denies confusion, dizziness, focal weakness, headache(s), seizures or syncope Psychiatric Psychiatric: Denies anxiety Endocrine Endocrinology: Denies change in body appearance Hematologic/Lymphatic Hematologic/Lymphatic: Denies anemia Vital Signs Vital Signs Vital Signs: 06/09/22 12:46 06/09/22 12:53 06/09/22 13:31 Temperature 97.5 F L Temperature Source Temporal Pulse Rate 125 H 116 H Respiratory Rate 37 H 32 H Blood Pressure 119/86 H 113/79 Blood Pressure Mean 97 90 Pulse Ox 90 93 92 Oxygen Delivery Method Room Air Nasal Cannula Nasal Cannula Oxygen Flow Rate (L/min) 2 3 06/09/22 15:00 06/09/22 16:00 06/09/22 16:54 Temperature Temperature Source Pulse Rate 118 H 115 H 101 H Respiratory Rate 28 H 32 H 25 H Blood Pressure 120/80 130/75 H 113/56 L Blood Pressure Mean 93 93 75 Pulse Ox 91 92 91 Oxygen Delivery Method Nasal Cannula Nasal Cannula Nasal Cannula Oxygen Flow Rate (L/min) 3 3 3 Weight Weight: 194 lb 0.108 oz Body Mass Index (BMI) 31.3 Physical Exam Const alert, oriented x3 and no apparent distress Constitutional Narrative: frail General Appearance: cooperative HEENT normocephalic, head/scalp atraumatic, hearing grossly normal bilaterally and moist oral mucous membranes Mouth: oral and palatal mucosa normal Eyes PERRL, EOMs intact bilaterally and conjunctivae normal Neck no lymphadenopathy, supple and no JVD Resp Resp Narrative: tachypneic, mildly diminished breath sounds bibasally, no wheezes or crackles. On 2L of oxygen by nasal canula Cardio S1 normal heart sound, S2 normal heart sound and no murmurs Cardio Narrative: afib with RVR GI normal to inspection, nondistended, normoactive bowel sounds, soft to palpation, non-tender and non-distended Extremity normal to inspection, full ROM and no clubbing, cyanosis or edema Neuro oriented x3, CN's II-XII intact bilaterally and moves all extremities Sensorium / Orientation: awake and alert Motor Exam: strength 5/5 throughout Psych affect normal Results Lab / Micro Data Result Diagrams: 06/10/22 03:22 06/10/22 03:22 Labs: Laboratory Results - last 24 hr 06/09/22 13:33: WBC 11.4 H, RBC 3.77 L, Hgb 12.0, Hct 37.7, MCV 100.0 H, MCH 31.8, MCHC 31.8 L, RDW Std Deviation 53.1 H, RDW Coeff of Robert 14.7 H, Plt Count 338, MPV 9.6, Immature Gran % (Auto) 0.400, Neut % (Auto) 76.0 H, Lymph % (Auto) 13.9 L, [place] % (Auto) 8.0, Eos % (Auto) 0.8, Baso % (Auto) 0.9, Absolute Neuts (auto) 8.7 H, Absolute Lymphs (auto) 1.59, Nucleated RBC % 0 06/09/22 13:33: Sodium 137, Potassium 3.3 L, Chloride 103, Carbon Dioxide 23.0, Anion Gap 11, BUN 17, Creatinine 0.77, Estim Creat Clear Calc 39.90, Est GFR (MDRD) Af Amer 92, Est GFR (MDRD) Non-Af 76, BUN/Creatinine Ratio 22.0 H, Glucose 111 H, Calcium 9.0, Total Bilirubin 0.80, AST 15, ALT 18, Alkaline Phosphatase 118 H, Total Protein 6.6, Albumin 2.8 L, Globulin 3.8, Albumin/Globulin Ratio 0.7 L, Lipase 65 L 06/09/22 13:33: Lactic Acid 1.7 06/09/22 13:33: TSH 2.53 06/09/22 13:33: B-Natriuretic Peptide 604.5 H 06/09/22 16:30: Urine Color Yellow, Urine Clarity Clear, Urine pH 5.0, Ur Specific [place] 1.020, Urine Protein 15 H, Urine Glucose (UA) NEGATIVE, Urine Ketones 5 H, Urine Occult Blood 25, Urine Nitrite Negative, Urine Bilirubin Negative, Urine Urobilinogen Normal, Ur Leukocyte Esterase 25 H, Urine RBC 0-5 SEEN, Urine WBC 0-5 SEEN, Ur Squamous Epith Cells 0-5 SEEN, Urine Bacteria 0 SEEN, Urine Mucus 0 SEEN ABG Data ABG results: ABG 06/09/22 16:38 Specimen Type ART Sample Site R Brach pH 7.39 Bicarbonate Actual 22.3 Total CO2 23 Base Excess -3 L O2 Saturation 94 L ABG pCO2 36.5 ABG pO2 69 L O2 Delivery Device Cannula Liter Flow 3.0 Rhythm Strip Rhythm Strip: A-fib Rate: 124 Ectopy: PVC(s) Radiology Impression Abdomen/Pelvis CT 06/09/22 13:16 IMPRESSION: Small bilateral pleural effusions with the left basilar atelectasis is more prominent on the right side. The patient is status post cholecystectomy as well as hysterectomy. Sigmoid diverticulosis. Nonspecific bilateral perinephric stranding more prominent on the right side. Electronically Signed: Amol Hannon MD at 14:50 EST , Chest X-Ray 06/09/22 13:16 IMPRESSION: Suspicious mild acute CHF. This is a new finding when compared to 05/31/2022. Advise clinical correlation. Electronically Signed: Chente Grimaldo MD at 15:02 EST , Assessment & Plan Assessment/Plan (1) Pleural effusion due to CHF (congestive heart failure): (2) Atrial fibrillation with RVR: (3) Nausea and vomiting: PLAN: Plan #Acute exacerbation of heart failure Diuresed with IV Lasix 40 mg twice daily. Monitor intake and output. Fluid restriction 1500 cc daily. Recently had cath on 06/02/2022 which showed [place] multivessel nonobstructive CAD recommendation was for medical therapy and risk factor modification. EF is unknown get 2D echo #A. fib with RVR: Currently on Cardizem drip. Monitor and titrate. does have a history of afib not on anticoagulation due to concernss about her seizure disorder and risk of falls #Hypokalemia: K is 3.3. Will replace. Check magnesium #Hypertension: On lisinopril #Type 2 diabetes mellitus: Hold metformin. Insulin sliding scale. Accu-Cheks ACH S. #Irritable bowel syndrome: On linzess #History of seizure disorder: On lamotrigine. Her neurologist at [facility] had ordered a brain MRI for tomorrow that she was due to have an outpatient basis at [facility]. We will order this MRI. Unsure if it is with or without contrast and that will need to be clarified with radiology tomorrow. DVT prophylaxis: lovenox 40mg daily Code status; full code Patient counseled extensively about different types of CODE STATUS including full code, DNR CCA and DNR CCA. Patient elects to be full code. Total [id number] time 17 minutes. Charges/Coding Visit Charges Inpatient E&M: 89816 Init Hosp L3 Procedures Hospitalists Procedures: 85622 Advncd Care Plan 30 Min
[2022-06-09 20:35] LABS: Troponin-I HS 58 pg/mL (3.0-54.0)
[2022-06-09] MEDS: clonazePAM 0.5 MG Tablet PO (21:37)
[2022-06-09] MEDS: lamoTRIgine 25 MG Tablet 75 MG PO (21:37)
[2022-06-09] MEDS: Potassium Chloride Oral Tablet 20 MEQ 40 MEQ PO (21:37)
[2022-06-09] MEDS: Lisinopril 20 MG Tablet PO (22:29)
[2022-06-10] VITALS (36 sets, daily range): BP systolic 92–130; BP diastolic 47–100; PULSE 84–118; RESP 16–37; TEMP 36.2–36.8; O2SAT 90–96
[2022-06-10 01:12] LABS: Troponin-I HS 57 pg/mL (3.0-54.0)
[2022-06-10 03:29] LABS: Absolute Lymphocyte Count 1.26 X10^3/uL (0.83-4.51); Absolute Neutrophil Count 8.1 X10^3/uL (2.0-7.7); Eosinophil# 0.12 X10^3/uL; Eosinophils% 1.1 % (0-5); Hematocrit 35.4 % (37-47); Hemoglobin 11.2 g/dL (12.0-15.0); Lymphocyte # 1.26 X10^3/ul (0.83-4.51); Mean Corp Hgb Conc 31.6 g/dL (32-36); Mean Corpuscular Hgb 31.7 pg (27.0-32.0); Mean Corpuscular Volume 100.3 fL (81-99); Monocyte# 0.86 X10^3/uL; Monocyte% 8.2 % (0-10); NRBC Flagged by Analyzer 0 % (0-5); Neutrophil # 8.13 X10^3/uL (2.7-7.7); Neutrophil % 77.3 % (47-70); Platelet Count 305 K/mm3 (150-450); RBC Distribution Width CV 14.7 % (11.6-14.6); RBC Distribution Width SD 53.9 fl (35.1-43.9); Red Blood Count 3.53 M/mm3 (4.2-5.4); White Blood Count 10.5 K/mm3 (4.4-11.0)
[2022-06-10 03:50] LABS: Anion Gap 8 (5-15); BUN 14 mg/dL (7-18); Calcium,Total 8.4 mg/dL (8.5-10.1); Chloride 106 mmol/L (98-107); Creatinine, Serum 0.64 mg/dL (0.55-1.02); EST Glomerular Filtration Rate 95 mL/min (>60); Est Glom Filt Rate - Afr Amer 115 mL/min (>60); Estimated Creatinine Clearance 41.45 ml/min; Glucose 112 mg/dL (74-106); Potassium 3.6 mmol/L (3.5-5.1); Sodium Level 140 mmol/L (136-145); Troponin-I HS 54 pg/mL (3.0-54.0)
--- NOTE | 2022-06-10 05:55 | MRI_ITS ---
EXAM: MR HEAD WITHOUT INTRAVENOUS CONTRAST CLINICAL INDICATION: Seizures. TECHNIQUE: Multiplanar and multisequence MR images of the brain were obtained without intravenous contrast. This report was created using [email or web address] report generation technology. COMPARISON: CT head without contrast 04/24/2022. FINDINGS: BRAIN AND EXTRA-AXIAL SPACES: T2 FLAIR hyperintensity foci in the white matter of the cerebral hemispheres are chronic white matter ischemic changes, left more than right. No intra- or extra-axial hemorrhage. No intracranial mass or mass effect. Posterior fossa structures are unremarkable. Ventricles are appropriate for age. No hydrocephalus. Basal cisterns are patent. No suspicious signal abnormality of the limbic lobes. No diffusion restriction to suspect acute or subacute ischemic infarct. No remote cortical-based ischemic infarcts and no old lacunar ischemic infarcts. SELLA: Unremarkable. Normal sella turcica, pituitary gland, infundibular stalk, optic chiasm and hypothalamus. AUDITORY SYSTEM: Unremarkable. The internal auditory canals are patent. BONES/JOINTS: Unremarkable. No discrete lytic or blastic abnormalities. SINUSES: Unremarkable as visualized. Clear. MASTOID AIR CELLS: Unremarkable as visualized. Clear. ORBITS: Unremarkable as visualized. Both globes, extraocular muscles, optic nerves and retrobulbar fat appear unremarkable. VASCULATURE: Unremarkable as visualized. Normal flow voids in the major intracranial circulation. MRI/Brain without Contrast IMPRESSION: 1. No MRI evidence of acute or subacute ischemic infarct, intracranial mass or acute intracranial abnormality. 2. No suspicious abnormality of the limbic lobes. 3. Chronic white matter ischemic changes in both cerebral hemispheres, left more than right. Electronically Signed: Chente Grimaldo MD at 11:12 EST ,
[2022-06-10] MEDS: Enoxaparin 40 MG/0.4 ML Syringe SC (08:37)
[2022-06-10] MEDS: lamoTRIgine 25 MG Tablet 75 MG PO ×2 (08:38→21:44)
[2022-06-10] MEDS: Cyanocobalamin 500 MCG Tablet 1000 MCG PO (08:38)
[2022-06-10] MEDS: Furosemide 40 MG/4 ML Vial IV ×2 (08:38→17:25)
[2022-06-10] MEDS: DULoxetine Hcl 30 MG Capsule PO (08:38)
[2022-06-10] MEDS: Aspirin E.C. 81 MG Tablet PO (08:38)
[2022-06-10] MEDS: 0.9% Saline Lock 10 ML Syringe IV ×2 (08:45→17:25)
--- NOTE | 2022-06-10 10:00 | PN.HOSP_ITS ---
Subjective Subjective F/u acute congestive heart failure Patient is on 81-year-old female admitted with abdominal pain and distention. An assessment of acute congestive heart failure made admitted to monitored bed for further management. Patient was also noted to be in A. fib with RVR Objective Data Objective Data Vital Signs: Vital Signs Temp Pulse Resp BP Pulse Ox O2 Del Method O2 Flow Rate 97.8 F 118 H 18 119/68 91 Nasal Cannula 3 06/10/22 09:00 06/10/22 09:56 06/10/22 09:56 06/10/22 09:56 06/10/22 09:56 06/10/22 09:56 06/10/22 09:56 Oxygen Flow Rate (L/min) 3 Oxygen Delivery Method Nasal Cannula Weight: 87.4 kg Body Mass Index (BMI) 29.9 Intake & Output: Intake and Output for Last 24 Hours 06/08/22 06/09/22 06/10/22 23:59 23:59 23:59 Intake Total 1029.25 / 1034.25 50.00 / 50.00 Output Total 400 / 400 250 / 250 Balance 629.25 / 634.25 -200.00 / -200.00 Lab / Micro Data Result Diagrams: 06/10/22 03:22 06/10/22 03:22 Labs: Laboratory Results - last 24 hr 06/09/22 13:33: WBC 11.4 H, RBC 3.77 L, Hgb 12.0, Hct 37.7, MCV 100.0 H, MCH 31.8, MCHC 31.8 L, RDW Std Deviation 53.1 H, RDW Coeff of Robert 14.7 H, Plt Count 338, MPV 9.6, Immature Gran % (Auto) 0.400, Neut % (Auto) 76.0 H, Lymph % (Auto) 13.9 L, [place] % (Auto) 8.0, Eos % (Auto) 0.8, Baso % (Auto) 0.9, Absolute Neuts (auto) 8.7 H, Absolute Lymphs (auto) 1.59, Nucleated RBC % 0 06/09/22 13:33: Sodium 137, Potassium 3.3 L, Chloride 103, Carbon Dioxide 23.0, Anion Gap 11, BUN 17, Creatinine 0.77, Estim Creat Clear Calc 39.90, Est GFR (MDRD) Af Amer 92, Est GFR (MDRD) Non-Af 76, BUN/Creatinine Ratio 22.0 H, Glucose 111 H, Calcium 9.0, Total Bilirubin 0.80, AST 15, ALT 18, Alkaline Phosphatase 118 H, Total Protein 6.6, Albumin 2.8 L, Globulin 3.8, Albumin/Globulin Ratio 0.7 L, Lipase 65 L 06/09/22 13:33: Lactic Acid 1.7 06/09/22 13:33: TSH 2.53 06/09/22 13:33: B-Natriuretic Peptide 604.5 H 06/09/22 16:30: Urine Color Yellow, Urine Clarity Clear, Urine pH 5.0, Ur Specific [place] 1.020, Urine Protein 15 H, Urine Glucose (UA) NEGATIVE, Urine Ketones 5 H, Urine Occult Blood 25, Urine Nitrite Negative, Urine Bilirubin Negative, Urine Urobilinogen Normal, Ur Leukocyte Esterase 25 H, Urine RBC 0-5 SEEN, Urine WBC 0-5 SEEN, Ur Squamous Epith Cells 0-5 SEEN, Urine Bacteria 0 SEEN, Urine Mucus 0 SEEN 06/09/22 19:38: Troponin I High Sens 58 H 06/09/22 19:38: Magnesium 2.0 06/10/22 00:40: Troponin I High Sens 57 H 06/10/22 03:22: WBC 10.5, RBC 3.53 L, Hgb 11.2 L, Hct 35.4 L, MCV 100.3 H, MCH 31.7, MCHC 31.6 L, RDW Std Deviation 53.9 H, RDW Coeff of Robert 14.7 H, Plt Count 305, MPV 9.0, Immature Gran % (Auto) 0.400, Neut % (Auto) 77.3 H, Lymph % (Auto) 12.0 L, [place] % (Auto) 8.2, Eos % (Auto) 1.1, Baso % (Auto) 1.0, Absolute Neuts (auto) 8.1 H, Absolute Lymphs (auto) 1.26, Nucleated RBC % 0 06/10/22 03:22: Sodium 140, Potassium 3.6, Chloride 106, Carbon Dioxide 26.0, Anion Gap 8, BUN 14, Creatinine 0.64, Estim Creat Clear Calc 41.45, Est GFR (MDRD) Af Amer 115, Est GFR (MDRD) Non-Af 95, BUN/Creatinine Ratio 22.0 H, Glucose 112 H, Calcium 8.4 L 06/10/22 03:22: Troponin I High Sens 54 ABG Data ABG results: ABG 06/09/22 16:38 Specimen Type ART Sample Site R Brach pH 7.39 Bicarbonate Actual 22.3 Total CO2 23 Base Excess -3 L O2 Saturation 94 L ABG pCO2 36.5 ABG pO2 69 L O2 Delivery Device Cannula Liter Flow 3.0 Radiography Diagnostic Testing: Radiology Impression Abdomen/Pelvis CT 06/09/22 13:16 IMPRESSION: Small bilateral pleural effusions with the left basilar atelectasis is more prominent on the right side. The patient is status post cholecystectomy as well as hysterectomy. Sigmoid diverticulosis. Nonspecific bilateral perinephric stranding more prominent on the right side. Electronically Signed: Amol Hannon MD at 14:50 EST , Chest X-Ray 06/09/22 13:16 IMPRESSION: Suspicious mild acute CHF. This is a new finding when compared to 05/31/2022. Advise clinical correlation. Electronically Signed: Chente Grimaldo MD at 15:02 EST , Rhythm Strip Rhythm Strip: A-fib Rate: 124 Ectopy: PVC(s) Physical Exam Narrative GENERAL: cooperative HEENT: Atraumatic; normocephalic EYES; Anicteric, Normal Conjunctiva NECK; supple, normal thyroid, RESPIRATORY: Diminished to auscultation CARDIOVASCULAR: Regular S1 S2, GI: soft, normoactive bowel sounds, : No Renal angle tenderness; EXTREMITIES: Trace bipedal edema, no clubbing, MUSCULOSKELETAL: no muscle wasting NEURO: Awake; no lateralizing signs. SKIN: No Rash PSYCH; Flat affect Assessment & Plan Assessment/Plan (1) Pleural effusion due to CHF (congestive heart failure): (2) Atrial fibrillation with RVR: (3) Nausea and vomiting: PLAN: Plan Patient is on 81-year-old female admitted with abdominal pain and distention. An assessment of acute congestive heart failure made admitted to monitored bed for further management. Patient was also noted to be in A. fib with RVR 1. Acute congestive heart failure with preserved ejection fraction ? EF obtained from patient's notes from an echo obtained on 09/29/2018 was 55%. Admitted to a monitored bed placed on strict input and output, low-sodium diet, daily weights, IV diuretics and repeat echo ordered 2. A. fib with RVR ? Patient started on Cardizem drip which is currently being titrated to keep heart rate less than 100. Patient is not on systemic anticoagulation due to her underlying history of seizure with significant risk of falls 3. Hypokalemia ? Corrected per protocol, repeat BMP ordered for a.m. 4. Essential hypertension ? Patient blood pressure controlled on lisinopril did continue 5. Diabetes mellitus type 2 ? Patient is on metformin held, placed on Accu-Cheks before meals and at bedtime with sliding scale insulin coverage 6. Irritable bowel syndrome: On linzess for continued 7. History of seizure disorder: On lamotrigine. Patient scheduled to undergo subsequent evaluation with an MRI 8. DVT prophylaxis - On enoxaparin Time spent in the patient's overall evaluation,decision-making process, review of diagnostic data, adjustment of management, discussion with other providers, nursing nursing and ancillary staff involved in patient's care documentation, 52. Minutes Charges/Coding Visit Charges Inpatient E&M: 98365 [place] [id number]
--- NOTE | 2022-06-10 10:35 | NURSING ---
Returned from MRI.
--- NOTE | 2022-06-10 10:39 | NURSING ---
Patient arrived back to the floor at this time from MRI. Dr. Craig at bedside.
[2022-06-10] MEDS: traMADol 50 MG Tablet PO (10:53)
--- NOTE | 2022-06-10 10:55 | ECHOD_ITS ---
Reason For Study: CHF Procedure This was a 2D Doppler, Color Flow transthoracic echocardiogram. The study was technically difficult. Exam performed portable in patient room. Left Ventricle Normal LV size. Mild concentric left ventricular hypertrophy. Moderate segmental systolic dysfunction (see wall motion). The estimated ejection fraction is 35 %. Septal [place] : Akinetic. Mid- Inferior: Akinetic. Basal inferoseptal: Akinetic. Right Ventricle Normal RV size. Normal systolic function. Atria Normal left atrium. Normal right atrium. Mitral Valve Bileaflet diffuse mitral valve thickening. Mild (1+) eccentric mitral valve insufficiency. Tricuspid Valve Normal tricuspid valve. Mild (1+) tricuspid valve insufficiency. Pulmonary artery systolic pressure is 33 mmHg. Aortic Valve Trisinus/trileaflet aortic valve. Mild focal aortic valve calcification. Peak aortic valve gradient 29.5 mmHg. Mean aortic valve gradient 15 mmHg. Moderate aortic stenosis. Calculated aortic valve area (continuity equation) is 1.0 cm2. Pulmonic Valve Normal pulmonic valve. Great Vessels Normal aortic root. The pulmonary is not well visualized. Normal inferior vena cava. Pericardium/Pleural No pericardial effusion. Medication Diluted definity 3ml given slow IV push to enhance endocardial definition. MMode/2D Measurements & Calculations LVIDd: 5.8 cm IVSd: 1.3 cm LVOT diam: 2.0 cm LVIDs: 4.4 cm LVPWd: 1.2 cm RVDd: 3.8 cm FS: 24.5 % LVOT area: 3.1 cm2 Ao root diam: 3.0 cm LAV(MOD-bp): 49.6 ml LVAd ap4: 34.1 cm2 LAV(MOD-bp) Indexed: 25.0 ml/m2 LVLd ap4: 7.2 cm LAV(MOD-sp2): 46.1 ml EDV(MOD-sp4): 128.9 ml LAV(MOD-sp4): 44.1 ml EDV(sp4-el): 136.0 ml LVAs ap4: 27.7 cm2 LVLs ap4: 7.1 cm ESV(MOD-sp4): 89.4 ml ESV(sp4-el): 91.1 ml EF(MOD-sp4): 30.7 % EF(sp4-el): 33.1 % SV(MOD-sp4): 39.5 ml SV(sp4-el): 45.0 ml LA A4 area: 17.8 cm2 LA dimension(2D): 3.7 cm RA A4 area: 16.3 cm2 Doppler Measurements & Calculations MV E max floyd: 118.9 cm/sec Ao V2 max: 267.6 cm/sec LV V1 max: 87.0 cm/sec Ao max P.5 mmHg LV V1 max P.1 mmHg Ao V2 mean: 180.3 cm/sec LV V1 mean P.6 mmHg Ao mean P.3 mmHg LV V1 mean: 58.6 cm/sec Ao V2 VTI: 39.0 cm LV V1 VTI: 14.7 cm AV (velocity ratio): 0.38 PRISCILLA(I,D): 1.2 cm2 PRISCILLA(V,D): 1.0 cm2 SV(LVOT): 46.2 ml PA V2 max: 113.0 cm/sec TR max floyd: 271.7 cm/sec TR max P.5 mmHg ECHO/Echo Complete W/ Contrast Interpretation Summary Normal LV size. Moderate segmental systolic dysfunction (see wall motion). The estimated ejection fraction is 35 %. Mild concentric left ventricular hypertrophy. Contrast injection was performed. Compared to previous study, the left ventricu lar systolic function has worsened.. Ordering Physician: Arvind Craig Referring Physician: PETE BECERRA Performed By: Cheryl Skinner RDCS
[2022-06-10] MEDS: Acetaminophen 500 MG Tablet 1000 MG PO ×2 (13:34→21:44)
[2022-06-10] MEDS: oxyCODONE 5 MG Tablet PO ×2 (13:35→17:25)
--- NOTE | 2022-06-10 15:10 | CASEMGMT ---
SHANTE CM Face to Face with patient for initial transition planning/care coordination assessment. RN CM introduced self and role at [facility]. Patient lying in bed, alert and oriented. Patient willing to participate in assessment and is able to answer all questions appropriately. Care providers, pharmacy, and demographics verified. Patient wishes to discharge home but is willing to go to SNF for additional therapy. Patient states she would like TCU, SW updated. Patient states she has no further needs or concerns at this time. CM to follow for discharge planning needs that may arise. PCP: [facility] Specialists: none Preferred Pharmacy: Insurance: Marci Stokes Prescription Benefit: yes Living Will/HPOA: yes, iKt [place] LNOK: , son Living Arrangements: Patient lives with in a 2 story home with bed and bath on first floor. 3 stpes and railing to enter the home. Patient is normally independent at home. Transportation: , self DME/HHC: Patient has shower chair, raised toilet, cane, and walker at home. No previous HHC or SNF. Patient is requiring assistance x2. Disposition Plan: TBD anticipate SNF for additional rehab Geri OJEDA, RN, CM
--- NOTE | 2022-06-10 15:43 | CHAPLAIN ---
Type of Pastoral Visit _x__ Initial Visit ___ Follow-up Visit ___ On-call Visit ___ General Patient Visit ___ Spiritual Assessment ___ Family Conference ___ Bereavement ___ Rapid Response ___ Code Blue ___ Other (describe below) Pastoral Care Referral From _x__ Patient ___ Family ___ Nurse ___ Physician ___ Casino Accountant ___ Railroad Commissioner ___ Other (describe below) Sacrament/Intervention _x__ Active listening ___ Anointing ___ Voodoo ___ Bereavement ___ Communion _x__ Myla exploration ___ _x__ Life review _x__ Prayer ___ Reconciliation ___ Sacrament of Sick _x__ Supportive presence ___ Wedding ___ Other (describe below) Pastoral Comments patient is lying still and expresses that her back has pain from the testing she had done; pt speaks of her situation, gives life review, explains her myla story although 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
[2022-06-10] MEDS: Lisinopril 20 MG Tablet PO (21:45)
[2022-06-10] MEDS: clonazePAM 0.5 MG Tablet PO (21:47)
[2022-06-10] MEDS: Nystatin Powder 15gm Bottle 1 APPLIC TOPICAL (23:32)
[2022-06-11] VITALS (24 sets, daily range): BP systolic 74–115; BP diastolic 47–87; PULSE 76–101; RESP 10–22; TEMP 36.4–36.6; O2SAT 92–98
--- NOTE | 2022-06-11 04:45 | NURSING ---
MD ordered Cardizem gtt to be decreased to 2.5ml/hr d/t pt BP running low. still afib, HR in 80s.
[2022-06-11] MEDS: Polyethylene Glycol 3350 17 GM PACKET PO (05:38)
[2022-06-11] MEDS: traMADol 50 MG Tablet PO (05:38)
[2022-06-11] MEDS: Acetaminophen 500 MG Tablet 1000 MG PO ×2 (05:52→13:25)
[2022-06-11] MEDS: Nystatin Powder 15gm Bottle 1 APPLIC TOPICAL ×2 (05:53→13:24)
[2022-06-11 06:12] LABS: Absolute Lymphocyte Count 1.28 X10^3/uL (0.83-4.51); Absolute Neutrophil Count 6.6 X10^3/uL (2.0-7.7); Basophil% 1.1 % (0-1); Eosinophil# 0.32 X10^3/uL; Eosinophils% 3.5 % (0-5); Hematocrit 37.4 % (37-47); Hemoglobin 11.4 g/dL (12.0-15.0); Lymphocyte # 1.28 X10^3/ul (0.83-4.51); Lymphocyte % 14.1 % (19-41); Mean Corp Hgb Conc 30.5 g/dL (32-36); Mean Corpuscular Hgb 31.2 pg (27.0-32.0); Mean Corpuscular Volume 102.5 fL (81-99); Mean Platelet Vol. 9.4 fl (6.2-12.0); Monocyte# 0.73 X10^3/uL; NRBC Flagged by Analyzer 0 % (0-5); Neutrophil # 6.61 X10^3/uL (2.7-7.7); Neutrophil % 72.6 % (47-70); Platelet Count 362 K/mm3 (150-450); RBC Distribution Width CV 14.7 % (11.6-14.6); RBC Distribution Width SD 54.6 fl (35.1-43.9); Red Blood Count 3.65 M/mm3 (4.2-5.4); White Blood Count 9.1 K/mm3 (4.4-11.0)
[2022-06-11 06:32] LABS: Anion Gap 9 (5-15); BUN 23 mg/dL (7-18); BUN/Creat Ratio 30.8 RATIO (10-20); Calcium,Total 8.8 mg/dL (8.5-10.1); Chloride 103 mmol/L (98-107); Creatinine, Serum 0.75 mg/dL (0.55-1.02); EST Glomerular Filtration Rate 79 mL/min (>60); Est Glom Filt Rate - Afr Amer 95 mL/min (>60); Estimated Creatinine Clearance 41.45 ml/min; Glucose 120 mg/dL (74-106); Magnesium 2.3 mg/dL (1.6-2.6); Phosphorus 3.6 mg/dL (2.5-4.9); Potassium 3.2 mmol/L (3.5-5.1); Sodium Level 141 mmol/L (136-145)
[2022-06-11] MEDS: oxyCODONE 5 MG Tablet PO (06:51)
[2022-06-11] MEDS: Senna/Docusate Sodium 1 Tablet PO (06:51)
[2022-06-11] MEDS: Aspirin E.C. 81 MG Tablet PO (07:46)
[2022-06-11] MEDS: 0.9% Saline Lock 10 ML Syringe IV (09:03)
[2022-06-11] MEDS: lamoTRIgine 25 MG Tablet 75 MG PO (09:03)
[2022-06-11] MEDS: Enoxaparin 40 MG/0.4 ML Syringe SC (09:03)
[2022-06-11] MEDS: DULoxetine Hcl 30 MG Capsule PO (09:04)
[2022-06-11] MEDS: Cyanocobalamin 500 MCG Tablet 1000 MCG PO (09:05)
--- NOTE | 2022-06-11 09:44 | PN.HOSP_ITS ---
Subjective Subjective Echo demonstrated EF of 35% Objective Data Objective Data Vital Signs: Vital Signs Temp Pulse Resp BP Pulse Ox O2 Del Method O2 Flow Rate 97.5 F L 96 10 L 101/59 L 92 Nasal Cannula 2 06/11/22 08:00 06/11/22 09:00 06/11/22 09:00 06/11/22 09:00 06/11/22 09:00 06/11/22 09:00 06/11/22 09:00 Oxygen Flow Rate (L/min) 2 Oxygen Delivery Method Nasal Cannula Weight: 87.7 kg Body Mass Index (BMI) 29.9 Intake & Output: Intake and Output for Last 24 Hours 06/09/22 06/10/22 06/11/22 23:59 23:59 23:59 Intake Total 1029.25 / 1034.25 730.00 / 735.00 159.51 / 159.51 Output Total 400 / 400 350 / 350 150 / 150 Balance 629.25 / 634.25 380.00 / 385.00 9.51 / 9.51 Lab / Micro Data Result Diagrams: 06/11/22 05:28 06/11/22 05:28 Labs: Laboratory Results - last 24 hr 06/11/22 05:28: WBC 9.1, RBC 3.65 L, Hgb 11.4 L, Hct 37.4, MCV 102.5 H, MCH 31.2, MCHC 30.5 L, RDW Std Deviation 54.6 H, RDW Coeff of Robert 14.7 H, Plt Count 362, MPV 9.4, Immature Gran % (Auto) 0.700, Neut % (Auto) 72.6 H, Lymph % (Auto) 14.1 L, [place] % (Auto) 8.0, Eos % (Auto) 3.5, Baso % (Auto) 1.1 H, Absolute Neuts (auto) 6.6, Absolute Lymphs (auto) 1.28, Nucleated RBC % 0 06/11/22 05:28: Sodium 141, Potassium 3.2 L, Chloride 103, Carbon Dioxide 29.0, Anion Gap 9, BUN 23 H, Creatinine 0.75, Estim Creat Clear Calc 41.45, Est GFR (MDRD) Af Amer 95, Est GFR (MDRD) Non-Af 79, BUN/Creatinine Ratio 30.8 H, Glucose 120 H, Calcium 8.8, Phosphorus 3.6, Magnesium 2.3 Radiography Diagnostic Testing: Radiology Impression Brain MRI 06/10/22 05:55 IMPRESSION: 1. No MRI evidence of acute or subacute ischemic infarct, intracranial mass or acute intracranial abnormality. 2. No suspicious abnormality of the limbic lobes. 3. Chronic white matter ischemic changes in both cerebral hemispheres, left more than right. Electronically Signed: Chente Grimaldo MD at 11:12 EST , Echocardiogram 06/10/22 10:55 Interpretation Summary Normal LV size. Moderate segmental systolic dysfunction (see wall motion). The estimated ejection fraction is 35 %. Mild concentric left ventricular hypertrophy. Contrast injection was performed. Compared to previous study, the left ventricular systolic function has worsened.. Ordering Physician: Arvind Craig Referring Physician: PETE BECERRA Performed By: Cheryl Skinner RDCS Rhythm Strip Rhythm Strip: A-fib Rate: 124 Ectopy: PVC(s) Assessment & Plan Assessment/Plan (1) Pleural effusion due to CHF (congestive heart failure): PLAN: Plan Patient is on 81-year-old female admitted with abdominal pain and distention.? An assessment of acute congestive heart failure made admitted to monitored bed for further management.? Patient was also noted to be in A. fib with RVR 1.? Acute congestive heart failure with preserved ejection fraction ? EF obtained from patient's notes from an echo obtained on 09/29/2018 was 55%.? Admitted to a monitored bed placed on strict input and output, low-sodium diet, daily weights, IV diuretics and repeat echo ordered 06/11/2022: Echo obtained: Normal LV size. Moderate segmental systolic dysfunction (see wall motion). The estimated ejection fraction is 35 %. Mild concentric left ventricular hypertrophy. -Patient will be assessed for discharge 2.? A. fib with RVR ? Patient started on Cardizem drip which is currently being titrated to keep heart rate less than 100.? Patient is not on systemic anticoagulation due to her underlying history of seizure with significant risk of falls 3.? Hypokalemia ? Corrected per protocol, repeat BMP ordered for a.m. 4.? Essential hypertension ? Patient blood pressure controlled on lisinopril did continue 5.? Diabetes mellitus type 2 ? Patient is on metformin held, placed on Accu-Cheks before meals and at bedtime with sliding scale insulin coverage 6.? Irritable bowel syndrome: On linzess for continued 7. History of seizure disorder: On lamotrigine.? Patient scheduled to undergo subsequent evaluation with an MRI 8. DVT prophylaxis - On enoxaparin Time spent in the patient's overall evaluation,decision-making process, review of diagnostic data, adjustment of management, discussion with other providers, nursing nursing and ancillary staff involved in patient's care documentation,? 38. Minutes Charges/Coding Visit Charges Inpatient E&M: 69723 Subs Hosp L2
--- NOTE | 2022-06-11 09:46 | TREXTCAR_ITS ---
Diet Diet Order/Speech Therapy: 06/09/22 19:09 Diet: Cardiac - Heart Healthy Food consistency:: Regular Liquid Consistency:: Regular/Thin Is pt able to select menu?: Yes Fluid restriction:: 1500 mL Routine Orders/Code Status Code Status: Full Code Therapies Physical Therapy: Eval and Treat Occupational Therapy: Eval and Treat Problem/Diagnosis (1) Pleural effusion due to CHF (congestive heart failure): Status: Acute Code(s): I50.9 - Heart failure, unspecified Plan Patient is on 81-year-old female admitted with abdominal pain and distention.? An assessment of acute congestive heart failure made admitted to monitored bed for further management.? Patient was also noted to be in A. fib with RVR 1.? Acute congestive heart failure with preserved ejection fraction ? EF obtained from patient's notes from an echo obtained on 09/29/2018 was 55%.? Admitted to a monitored bed placed on strict input and output, low-sodium diet, daily weights, IV diuretics and repeat echo ordered 2.? A. fib with RVR ? Patient started on Cardizem drip which is currently being titrated to keep heart rate less than 100.? Patient is not on systemic anticoagulation due to her underlying history of seizure with significant risk of falls 3.? Hypokalemia ? Corrected per protocol, repeat BMP ordered for a.m. 4.? Essential hypertension ? Patient blood pressure controlled on lisinopril did continue 5.? Diabetes mellitus type 2 ? Patient is on metformin held, placed on Accu-Cheks before meals and at bedtime with sliding scale insulin coverage 6.? Irritable bowel syndrome: On linzess for continued 7. History of seizure disorder: On lamotrigine.? Patient scheduled to undergo subsequent evaluation with an MRI 8. DVT prophylaxis - On enoxaparin Allergies/Procedures Done in Hospital Allergies bacitracin [From Neosporin ([id number])] Allergy (Verified 06/09/22 12:49) Rash SWOLLEN, ITCHING bacitracin zinc [From Neosporin ([id number])] Allergy (Verified 06/09/22 12: 49) Rash SWOLLEN, ITCHING neomycin sulfate [From Neosporin ([id number])] Allergy (Verified 06/09/22 12:49) Rash SWOLLEN, ITCHING polymyxin B [From Neosporin ([id number])] Allergy (Verified 06/09/22 12:49) Rash SWOLLEN, ITCHING sulfamethoxazole [From Bactrim] Allergy (Verified 06/09/22 12:49) Itching trimethoprim [From Bactrim] Allergy (Verified 06/09/22 12:49) Itching codeine Adverse Reaction (Verified 06/09/22 12:49) Nausea milk Adverse Reaction (Verified 06/09/22 12:49) Nausea/Vom/Diarrhea Procedures: 2-D Echocardiogram Type of Care/Length of Stay Estimated LOS: Convalescent Care Less Than 30 days Type of Care Needed: Skilled Rehab Potential: Good Prognosis: Good Additional Orders/Day of Discharge Day of Discharge: 06/11/22 Dietary and Speech Recommendations Dietitian Recommendations/Changes: continue cardiac diet as ordered; will add 1500mL fluid restriction which was to be ordered per H&P. Will monitor PO intake and adjust diet as indicated. Discharge Plan Admission Admit Date/Time: 06/09/22 17:15 Attending Provider: Arvind Craig Primary Care Provider: Nahomy Bettencourt Consulting Providers: Sandra Miranda Discharge Orders/Prescriptions Prescriptions: New acetaminophen 500 mg Tablet 1,000 mg PO Q8 Qty: 0 0RF diltiazem HCl 120 mg Capsule,Extended Release 24hr 120 mg PO Q12 Qty: 0 0RF furosemide 40 mg Tablet 40 mg PO BIDLX Qty: 0 0RF polyethylene glycol 3350 17 gram Powder In Packet 17 g PO DAILY PRN PRN (Reason: CONSTIPATION) Qty: 0 0RF nitroglycerin 0.4 mg Tablet, Sublingual 0.4 mg sublingual Q5M PRN (Reason: Cardiac/Chest Pain) Qty: 0 0RF nystatin [Nyamyc] 100,000 unit/gram Powder 1 applic topical TID Qty: 0 0RF Protocol: *Topical Application Instructions APPLICATION INSTRUCTIONS: apply to abdominal fol ds sennosides-docusate sodium [Stool Softener-Stimulant Laxat] 8.6-50 mg Tablet 1 tab PO BID PRN PRN (Reason: CONSTIPATION) Qty: 0 0RF potassium chloride [Klor-Con M20] 20 mEq Tablet,Er Particles/Crystals 20 meq PO BIDCM Qty: 0 0RF oxycodone 5 mg Tablet 5 mg PO Q4H PRN PRN (Reason: Pain Score 4-10) 1 Days Qty: 4 0RF Continued metformin 500 mg tablet 500 mg PO BID duloxetine 30 mg capsule,delayed release(DR/EC) 30 mg PO DAILY lisinopril 20 MG tablet 20 mg PO QHS cyanocobalamin (vitamin B-12) 1,000 mcg Tablet 1,000 mcg PO DAILY aspirin 81 mg Tablet,Delayed Release (Dr/Ec) 81 mg PO DAILY biotin 1 mg Tablet 1,000 mcg PO DAILY Linzess 145 mcg Capsule 145 mcg PO DAILY PRN (Reason: Constipation) clonazepam 0.5 mg tablet 0.5 mg PO QHS Qty: 1 0RF lamotrigine 25 mg tablet 75 mg PO BID Discontinued tramadol 50 mg tablet 50 - 100 mg PO DAILY PRN (Reason: Pain) Referrals / Follow Up: Nahomy Bettencourt MD [Primary Care Provider] - Within 2 Weeks Disposition Disposition (needs filled in before D/C Order can be placed): Alf Facility
[2022-06-11] MEDS: dilTIAZem CD 120 MG Capsule PO (10:08)
[2022-06-11] MEDS: Furosemide 40 MG Tablet PO (10:08)
[2022-06-11] MEDS: Bisacodyl 10 MG Suppository RC (10:15)
--- NOTE | 2022-06-11 10:41 | CASEMGMT ---
Per RN CM patient would like to go to TCU. TCU is able to take patient. SW went to patient's room. Introduced self and role at [facility]. SW let patient and her know that TCU can take patient. Both were agreeable. Plan: d/c to [facility] TCU under skilled level of care. Lea Delgado YARN EXAMINERPati AMATO
[2022-06-11] MEDS: Potassium Chloride 10mEq/100mL 10 MEQ/100 ML IV.SOLN. 100 MEQ IV BOLUS ×4 (11:11→14:35)
--- NOTE | 2022-06-11 12:06 | PCM.DC.SUM ---
Providers Date of Admission: 06/09/22 Date of Discharge: 06/11/22 Primary Care Physician: Dr. Nahomy Bettencourt MD Reason For Visit: ACUTE HYPOXIA, CHF Diagnosis Discharge Diagnosis (1) Pleural effusion due to CHF (congestive heart failure): Status: Acute Code(s): I50.9 - Heart failure, unspecified Plan Patient is on 81-year-old female admitted with abdominal pain and distention.? An assessment of acute congestive heart failure made admitted to monitored bed for further management.? Patient was also noted to be in A. fib with RVR 1.? Acute congestive heart failure with preserved ejection fraction ? EF obtained from patient's notes from an echo obtained on 09/29/2018 was 55%.? Admitted to a monitored bed placed on strict input and output, low-sodium diet, daily weights, IV diuretics and repeat echo ordered 2.? A. fib with RVR ? Patient started on Cardizem drip which is currently being titrated to keep heart rate less than 100.? Patient is not on systemic anticoagulation due to her underlying history of seizure with significant risk of falls 3.? Hypokalemia ? Corrected per protocol, repeat BMP ordered for a.m. 4.? Essential hypertension ? Patient blood pressure controlled on lisinopril did continue 5.? Diabetes mellitus type 2 ? Patient is on metformin held, placed on Accu-Cheks before meals and at bedtime with sliding scale insulin coverage 6.? Irritable bowel syndrome: On linzess for continued 7. History of seizure disorder: On lamotrigine.? Patient scheduled to undergo subsequent evaluation with an MRI 8. DVT prophylaxis - On enoxaparin Medications at Discharge Home Medications lisinopril 20 mg tablet 20 mg PO QHS BLOOD PRESSURE 11/21/14 metformin 500 mg tablet 500 mg PO BID DIABETES 09/13/18 duloxetine 30 mg capsule,delayed release 30 mg PO DAILY NEUROPATHY 09/22/20 lamotrigine 25 mg tablet 75 mg PO BID SEIZURES 05/18/22 cyanocobalamin (vitamin B-12) 1,000 mcg tablet 1,000 mcg PO DAILY SUPPLEMENT 05/31/22 aspirin 81 mg tablet,delayed release 81 mg PO DAILY HEART HEALTH 06/09/22 biotin 1 mg tablet 1,000 mcg PO DAILY SUPPLEMENT 06/09/22 linaclotide 145 mcg capsule (Linzess) 145 mcg PO DAILY PRN Constipation 06/09/22 acetaminophen 500 mg tablet 1,000 mg PO Q8 #0 tabs 06/11/22 clonazepam 0.5 mg tablet 0.5 mg PO QHS SEIZURES #1 TAB 06/11/22 diltiazem HCl 120 mg capsule,extended release 24 hr 120 mg PO Q12 #0 caps 06/11/22 furosemide 40 mg tablet 40 mg PO BIDLX #0 tabs 06/11/22 metoprolol tartrate 25 mg tablet 25 mg PO BID #60 tabs 06/11/22 nitroglycerin 0.4 mg sublingual tablet 0.4 mg sublingual Q5M PRN Cardiac/Chest Pain #0 tabs 06/11/22 nystatin 100,000 unit/gram topical powder (Nyamyc) 1 applic topical TID #0 grams 06/11/22 oxycodone 5 mg tablet 5 mg PO Q4H PRN PRN Pain Score 4-10 1 day #4 tabs 06/11/22 polyethylene glycol 3350 17 gram oral powder packet 17 g PO DAILY PRN PRN CONSTIPATION #0 ea 06/11/22 potassium chloride 20 mEq tablet,extended release(part/cryst) (Klor-Con M) 20 meq PO BIDCM #0 tabs 06/11/22 sennosides 8.6 mg-docusate sodium 50 mg tablet (Stool Softener-Stimulant Laxative) 1 tab PO BID PRN PRN CONSTIPATION #0 tabs 06/11/22 Hospital Course Summary of Care Provided Minutes Spent on Discharge: 38 Physical Exam Narrative GENERAL: cooperative HEENT: Atraumatic; normocephalic EYES; Anicteric, Normal Conjunctiva NECK; supple, normal thyroid, RESPIRATORY: Diminished to auscultation CARDIOVASCULAR: Regular S1 S2, GI: soft, normoactive bowel sounds, : No Renal angle tenderness; EXTREMITIES: Trace bipedal edema, no clubbing, MUSCULOSKELETAL: no muscle wasting NEURO: Awake; no lateralizing signs. SKIN: No Rash PSYCH; Flat affect Weight / BMI Weight Weight: 87.7 kg Body Mass Index (BMI) 29.9 ABG / Lab / Microbiology Data Result Diagrams: 06/11/22 05:28 06/11/22 05:28 Laboratory: Laboratory Results - last 24 hr 06/11/22 05:28: WBC 9.1, RBC 3.65 L, Hgb 11.4 L, Hct 37.4, MCV 102.5 H, MCH 31.2, MCHC 30.5 L, RDW Std Deviation 54.6 H, RDW Coeff of Robert 14.7 H, Plt Count 362, MPV 9.4, Immature Gran % (Auto) 0.700, Neut % (Auto) 72.6 H, Lymph % (Auto) 14.1 L, [place] % (Auto) 8.0, Eos % (Auto) 3.5, Baso % (Auto) 1.1 H, Absolute Neuts (auto) 6.6, Absolute Lymphs (auto) 1.28, Nucleated RBC % 0 06/11/22 05:28: Sodium 141, Potassium 3.2 L, Chloride 103, Carbon Dioxide 29.0, Anion Gap 9, BUN 23 H, Creatinine 0.75, Estim Creat Clear Calc 41.45, Est GFR (MDRD) Af Amer 95, Est GFR (MDRD) Non-Af 79, BUN/Creatinine Ratio 30.8 H, Glucose 120 H, Calcium 8.8, Phosphorus 3.6, Magnesium 2.3 Radiography Diagnostic Testing: Radiology Impression Echocardiogram 06/10/22 10:55 Interpretation Summary Normal LV size. Moderate segmental systolic dysfunction (see wall motion). The estimated ejection fraction is 35 %. Mild concentric left ventricular hypertrophy. Contrast injection was performed. Compared to previous study, the left ventricular systolic function has worsened.. Ordering Physician: Arvind Craig Referring Physician: NAHOMY BETTENCOURT Performed By: Cheryl Skinner RDCS D/C Instructions Discharge Diet: 8 Cup Fluid Restriction Discharge Activity: Return to Normal Activity Call your doctor if you observe: Fever of 101 or Higher, Shortness of breath, Fainting spells and Chest pain Meaningful Use Info Meaningful Use Diagnoses (Choose all that apply): CHF CHF LISA/ARB ordered at discharge?: Yes Documented LVEF (%): 35 Discharge Plan Admission Admit Date/Time: 06/09/22 17:15 Attending Provider: Arvind Craig Primary Care Provider: Nahomy Bettencourt Consulting Providers: Sandra Miranda Discharge Orders/Prescriptions Prescriptions: New acetaminophen 500 mg Tablet 1,000 mg PO Q8 Qty: 0 0RF diltiazem HCl 120 mg Capsule,Extended Release 24hr 120 mg PO Q12 Qty: 0 0RF furosemide 40 mg Tablet 40 mg PO BIDLX Qty: 0 0RF polyethylene glycol 3350 17 gram Powder In Packet 17 g PO DAILY PRN PRN (Reason: CONSTIPATION) Qty: 0 0RF nitroglycerin 0.4 mg Tablet, Sublingual 0.4 mg sublingual Q5M PRN (Reason: Cardiac/Chest Pain) Qty: 0 0RF nystatin [Nyamyc] 100,000 unit/gram Powder 1 applic topical TID Qty: 0 0RF Protocol: *Topical Application Instructions APPLICATION INSTRUCTIONS: apply to abdominal folds sennosides-docusate sodium [Stool Softener-Stimulant Laxat] 8.6-50 mg Tablet 1 tab PO BID PRN PRN (Reason: CONSTIPATION) Qty: 0 0RF potassium chloride [Klor-Con M20] 20 mEq Tablet,Er Particles/Crystals 20 meq PO BIDCM Qty: 0 0RF oxycodone 5 mg Tablet 5 mg PO Q4H PRN PRN (Reason: Pain Score 4-10) 1 Days Qty: 4 0RF metoprolol tartrate 25 mg tablet 25 mg PO BID Qty: 60 0RF Continued metformin 500 mg tablet 500 mg PO BID duloxetine 30 mg capsule,delayed release(DR/EC) 30 mg PO DAILY lisinopril 20 MG tablet 20 mg PO QHS cyanocobalamin (vitamin B-12) 1,000 mcg Tablet 1,000 mcg PO DAILY aspirin 81 mg Tablet,Delayed Release (Dr/Ec) 81 mg PO DAILY biotin 1 mg Tablet 1,000 mcg PO DAILY Linzess 145 mcg Capsule 145 mcg PO DAILY PRN (Reason: Constipation) clonazepam 0.5 mg tablet 0.5 mg PO QHS Qty: 1 0RF lamotrigine 25 mg tablet 75 mg PO BID Discontinued tramadol 50 mg tablet 50 - 100 mg PO DAILY PRN (Reason: Pain) Referrals / Follow Up: Nahomy Bettencourt MD [Primary Care Provider] - Within 2 Weeks Disposition Disposition (needs filled in before D/C Order can be placed): [facility] Charges/Coding Visit Charges Inpatient E&M: 29279 Disch Hosp >30min
--- NOTE | 2022-06-11 12:40 | NURSING ---
This RN updated pt's Daughter in law, Karen on the phone.
[2022-06-11] MEDS: Potassium Chloride Oral Tablet 20 MEQ PO (16:30)
--- NOTE | 2022-06-11 17:10 | NURSING ---
This RN gave report to SHANTE Marquis on TCU.
== END 2022-06-11 18:22 | disposition skilled nursing facility (03) | DRG 291 ==
LOC: ED 17:10 → PCU 17:17
PROVIDERS: Admitting Provider Student in an Organized Health Care Education/Training Program; Emergency Provider Emergency Medicine; PCP Family Medicine; Visit Provider Internal Medicine
DX: I11.0 Hypertensive heart disease with heart failure (principal); I50.31 Acute diastolic (congestive) heart failure; E11.42 Type 2 diabetes mellitus with diabetic polyneuropathy; I48.0 Paroxysmal atrial fibrillation; G40.909 Epilepsy, unspecified, not intractable, without status epilepticus; E87.6 Hypokalemia; I25.10 Atherosclerotic heart disease of native coronary artery without angina pectoris; K58.9 Irritable bowel syndrome, unspecified; R11.2 Nausea with vomiting, unspecified; Z20.822 Contact with and (suspected) exposure to COVID-19; Z79.84 Long term (current) use of oral hypoglycemic drugs; Z79.82 Long term (current) use of aspirin; Z79.899 Other long term (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; Z87.891 Personal history of nicotine dependence
CPT/HCPCS: 36415; 36600; 70551; 71045; 74177; 80048; 80053; 81001; 82803; 83605; 83690; 83735; 83880; 84100; 84443; 84484; 85025; 87426; 93005; 93306; 97162; 97166; 97802; 99285; J7030; Q9957; Q9967; A4216; C8929; J1940; J2405

== ENCOUNTER 2022-06-11 18:35 | Inpatient (IN) | payer MEDICARE, OTHER, SELFPAY ==
[2022-06-11 19:18] VITALS: BP 128/62; PULSE 84; RESP 18; TEMP 36.5; O2SAT 95
--- NOTE | 2022-06-11 20:12 | HP.PCM_ITS ---
HPI - General General Date of Admission: 06/11/22 Date of Service: 06/11/22 Chief Complaint: Here for rehab. HPI Narrative 06/09/2022 MAGDY MIRAMONTES, is a 81 Female who presents to [facility] Emergency Department with abdominal pain. Worsening abdominal pain, nausea. Abdomen distended, nausea, mild vomiting. Recent heart catheterization negative obstructive coronary artery disease. Morphine, zofran, IV fluids given. WBC 11.4, K 2.3, Urinalysis negative for UTI. CT A/P showed perinephric stranding. Chest X-ray showed congestive heart failure, Oxygen 2-3 liters per nasal cannula. Cardizem 10mg iv given for atrial fibrillation with rapid ventricular response. 06/09/2022 Admit to Hospital. Lasix 40mg iv bid, 1500ml fluid restruction, for congestive heart failure. Cardizem drip, no anticoagulation for atrial fibrillation due to seizures, fall risk. Order MRI brain for seizure disorder. 06/10/2022 Titrate cardizem drip to heart rate of less than 100. 06/10/2022 Echo Normal LV size. Moderate segmental systolic dysfunction. EF 35%, systolic function worse. Mild concentric left ventricular hypertrophy. 06/11/2022 MRI brain chronic white matter ischemic changes bilaterally, left worse than right. 06/11/2022 Admit to TCU with debility, here for rehabilitation, strengthening, prior to dischage home with . [facility] Medical History Acute postoperative pain of right knee Ambulates with cane Arthritis Atherosclerotic heart disease of [place] coronary artery without angina pectoris Back pain Cardiology follow-up encounter Cellulitis of chest wall Chronic constipation Chronic cough Debility Depression Diabetes Diabetes mellitus Diabetic polyneuropathy Dietary restriction DM2 (diabetes mellitus, type 2) Epilepsy Essential hypertension Former smoker H/O cardiac murmur History of atrial fibrillation History of echocardiogram History of left heart catheterization (LHC) (~06/02/22) History of pain when walking History of steroid therapy History of stress test Hx of back injury Hx of vaginal delivery Hypertension Hypertension Inability to ambulate due to knee Injury of back Injury of head and neck Nephrolithiasis Neuropathy Neuropathy, diabetic Paroxysmal atrial fibrillation Vitamin D deficiency Wears glasses Home Medications lisinopril 20 mg tablet 20 mg PO QHS BLOOD PRESSURE 11/21/14 [History Last Taken 06/08/22] metformin 500 mg tablet 500 mg PO BID DIABETES 09/13/18 [History Last Taken 06/09/22] duloxetine 30 mg capsule,delayed release 30 mg PO DAILY NEUROPATHY 09/22/20 [History Last Taken 06/09/22] lamotrigine 25 mg tablet 75 mg PO BID SEIZURES 05/18/22 [History Last Taken 06/09/22] cyanocobalamin (vitamin B-12) 1,000 mcg tablet 1,000 mcg PO DAILY SUPPLEMENT 05/31/22 [History Last Taken 06/09/22] aspirin 81 mg tablet,delayed release 81 mg PO DAILY HEART HEALTH 06/09/22 [History Last Taken 06/09/22] biotin 1 mg tablet 1,000 mcg PO DAILY SUPPLEMENT 06/09/22 [History Last Taken 06/09/22] linaclotide 145 mcg capsule (Linzess) 145 mcg PO DAILY PRN Constipation 06/09/22 [History Last Taken Unknown] acetaminophen 500 mg tablet 1,000 mg PO Q8 pain 06/11/22 [History Last Taken Unknown] clonazepam 0.5 mg tablet 0.5 mg PO QHS SEIZURES #1 TAB 06/11/22 [Rx Last Taken Unknown] diltiazem HCl 120 mg capsule,extended release 24 hr 120 mg PO Q12 Check with primary doctor 06/11/22 [History Last Taken Unknown] furosemide 40 mg tablet 40 mg PO BIDLX Diuretic 06/11/22 [History Last Taken Unknown] metoprolol tartrate 25 mg tablet 25 mg PO BID #60 tabs 06/11/22 [Rx Last Taken Unknown] nitroglycerin 0.4 mg sublingual tablet 0.4 mg sublingual Q5M PRN Cardiac/Chest Pain #0 tabs 06/11/22 [Rx Last Taken Unknown] nystatin 100,000 unit/gram topical powder (Nyamyc) 1 applic topical TID Redness 06/11/22 [History Last Taken Unknown] oxycodone 5 mg tablet 5 mg PO Q4H PRN PRN Pain Score 4-10 1 day #4 tabs 06/11/22 [Rx Last Taken Unknown] polyethylene glycol 3350 17 gram oral powder packet 17 g PO DAILY PRN PRN CONSTIPATION #0 ea 06/11/22 [Rx Last Taken Unknown] potassium chloride 20 mEq tablet,extended release(part/cryst) (Rebel-Con M) 20 meq PO BIDCM Supplement 06/11/22 [History Last Taken Unknown] sennosides 8.6 mg-docusate sodium 50 mg tablet (Stool Softener-Stimulant Laxative) 1 tab PO BID PRN PRN CONSTIPATION #0 tabs 06/11/22 [Rx Last Taken Unknown] Allergy/AdvReac Type Severity Reaction Status Date / Time bacitracin Allergy Rash Verified 06/09/22 12:49 [From Neosporin ([id number])] bacitracin zinc Allergy Rash Verified 06/09/22 12:49 [From Neosporin ([id number])] neomycin sulfate Allergy Rash Verified 06/09/22 12:49 [From Neosporin ([id number])] polymyxin B Allergy Rash Verified 06/09/22 12:49 [From Neosporin ([id number])] sulfamethoxazole Allergy Itching Verified 06/09/22 12:49 [From Bactrim] trimethoprim [From Bactrim] Allergy Itching Verified 06/09/22 12:49 codeine AdvReac Nausea Verified 06/09/22 12:49 milk AdvReac Nausea/Vom/ Verified 06/09/22 12:49 Diarrhea Family History Father No problems noted. Mother No problems noted. Surgical History Amputated toe of right foot Deviated septum History of appendectomy History of cholecystectomy History of hysterectomy History of neck surgery History of tonsillectomy History of total right knee replacement (TKR) Hx of cystoscopy Hx of fusion of cervical spine S/P total knee arthroplasty Social History household members: spouse Smoking Status: Former smoker alcohol intake: never substance use type: does not use caffeine: No what type of physical activity do you participate in: other details: physical therapy seatbelt use: always do you feel safe at home: Yes ROS Constitutional Constitutional: Denies chills, fever(s) or weight gain ENT HEENT: Denies headache(s), nasal congestion or nasal discharge Cardiovascular Cardiovascular: Denies chest pain or palpitations Respiratory/Chest Respiratory/Chest: Denies cough, excessive phlegm production or shortness of breath with exertion Gastrointestinal Gastrointestinal: Denies abdominal pain, nausea or vomiting Genitourinary Genitourinary: Denies dysuria Musculoskeletal Musculoskeletal: Denies joint pain or joint swelling Integumentary Integumentary: Denies rash or wounds Neurologic Neurologic: Denies focal weakness, numbness or tingling Psychiatric Psychiatric: Denies anxiety, auditory hallucinations, depression, homicidal ideation or suicidal ideation Physical Exam Const alert General Appearance: cooperative HEENT normocephalic Eyes PERRL and EOMs intact bilaterally Neck supple, no JVD and no carotid bruits Resp normal respiratory effort, normal air movement and clear to auscultation bilaterally Cardio regular rate and regular rhythm GI normal to inspection, nondistended, normoactive bowel sounds, non-tender and non-distended Extremity normal capillary refill General Extremity: Negative for edema Skin no rashes or lesions noted General Skin Exam: no breakdown Psych affect normal Appearance: appropriate Assessment & Plan Assessment/Plan (1) Debility: (2) Atrial fibrillation with rapid ventricular response: (3) Acute systolic congestive heart failure: (4) Diabetic neuropathy: (5) Seizure disorder: (6) Hypertension: (7) Chronic constipation: (8) Depression: (9) Anxiety: PLAN: Plan 81 year old female with below past medical history hospitalized for acute systolic congestive heart failure, complicated by atrial fibrillation with rapid ventricular response, admitted to TCU with debility, here for rehabilitation, strengthening, prior to discharge home with . * Debility - PT/OT. * Pain - Tylenol 1000mg q8, Oxycodone 5mg q4h prn pain (4-10). * Bowel - Miralax 17gm daily, senna/colace 1 tablet bid. * Adult immunization - Administer pneumonia vaccine, covid19 vaccine, flu vaccine as appropriate. * DVT prophylaxis - hold, fall risk with seizures. * Atrial fibrillation - Diltiazem cd 120mg q12h, aspirin 81mg daily, no anticoagulation due to fall risk with seizures. * Anxiety - Clonazepam 0.5mg qhs, stable chronic long-term use, GDR not recommended. * Depression - Duloxetine 30mg daily, stable chronic long-term use, GDR not recommended. * Acute systolic congestive heart failure EF 35% - Lisinopril 20mg qhs, Furose mide 40mg bidlx. Consider carvedilol, Entresto, SGLT2i, spironolactone. * Seizure disorder - Lamictal 75mg bid. * Coronary artery disease - Lisinopril 20mg qhs, NTG .4mg sl q5m prn. * Tinea Corporis - Nystatin powder topical tid. * Hypokalemia - KCL 20meq bidcm.
[2022-06-11 20:37] VITALS: BMI 30.2
[2022-06-11] MEDS: Polyethylene Glycol 3350 17 GM PACKET PO (21:01)
[2022-06-11] MEDS: Acetaminophen 500 MG Tablet 1000 MG PO (23:10)
[2022-06-11] MEDS: clonazePAM 0.5 MG Tablet PO (23:10)
[2022-06-11] MEDS: Lisinopril 20 MG Tablet PO (23:11)
[2022-06-11] MEDS: Nystatin Powder 15gm Bottle 1 APPLIC TOPICAL (23:18)
[2022-06-12] MEDS: Furosemide 40 MG Tablet PO ×2 (05:00→14:16)
[2022-06-12] MEDS: Acetaminophen 500 MG Tablet 1000 MG PO ×3 (05:00→21:51)
[2022-06-12] MEDS: DULoxetine Hcl 30 MG Capsule PO (05:00)
[2022-06-12] MEDS: lamoTRIgine 150 MG Tablet 75 MG PO ×2 (05:01→17:40)
[2022-06-12] MEDS: dilTIAZem CD 120 MG Capsule PO ×2 (05:02→17:47)
[2022-06-12] MEDS: Senna/Docusate Sodium 1 Tablet PO ×2 (05:03→17:41)
[2022-06-12] MEDS: Polyethylene Glycol 3350 17 GM PACKET PO (05:03)
[2022-06-12] MEDS: Nystatin Powder 15gm Bottle 1 APPLIC TOPICAL ×3 (05:10→21:49)
[2022-06-12 08:04] LABS: Absolute Lymphocyte Count 1.25 X10^3/uL (0.83-4.51); Absolute Neutrophil Count 6.7 X10^3/uL (2.0-7.7); Basophil# 0.07 X10^3/uL; Basophil% 0.8 % (0-1); Eosinophil# 0.41 X10^3/uL; Eosinophils% 4.5 % (0-5); Hematocrit 36.9 % (37-47); Hemoglobin 11.5 g/dL (12.0-15.0); Lymphocyte # 1.25 X10^3/ul (0.83-4.51); Lymphocyte % 13.8 % (19-41); Mean Corp Hgb Conc 31.2 g/dL (32-36); Mean Corpuscular Hgb 31.6 pg (27.0-32.0); Mean Corpuscular Volume 101.4 fL (81-99); Mean Platelet Vol. 9.2 fl (6.2-12.0); Monocyte# 0.67 X10^3/uL; Monocyte% 7.4 % (0-10); NRBC Flagged by Analyzer 0.2 % (0-5); Neutrophil # 6.65 X10^3/uL (2.7-7.7); Neutrophil % 73.1 % (47-70); Platelet Count 385 K/mm3 (150-450); RBC Distribution Width CV 14.6 % (11.6-14.6); RBC Distribution Width SD 54.3 fl (35.1-43.9); Red Blood Count 3.64 M/mm3 (4.2-5.4); White Blood Count 9.1 K/mm3 (4.4-11.0)
[2022-06-12 08:14] LABS: Anion Gap 7 (5-15); BUN 20 mg/dL (7-18); BUN/Creat Ratio 33.1 RATIO (10-20); Calcium,Total 8.9 mg/dL (8.5-10.1); Chloride 105 mmol/L (98-107); EST Glomerular Filtration Rate 100 mL/min (>60); Est Glom Filt Rate - Afr Amer 121 mL/min (>60); Estimated Creatinine Clearance 41.45 ml/min; Glucose 120 mg/dL (74-106); Sodium Level 139 mmol/L (136-145)
[2022-06-12] MEDS: Potassium Chloride Oral Tablet 20 MEQ PO ×2 (08:45→17:40)
[2022-06-12] MEDS: Aspirin E.C. 81 MG Tablet PO (08:45)
--- NOTE | 2022-06-12 09:12 | NURSING ---
pt c/o being cold, provided blanket from warmer, and hot tea, temperature in room turned up. PARKING PATROLLER assisted with pt calling spouse.
[2022-06-12 10:00] VITALS: PULSE 66; RESP 16
[2022-06-12] MEDS: Tuberculin,Purif.prot.deriv. 50 TU/ML Vial 0.1 ML ID (10:45)
--- NOTE | 2022-06-12 11:57 | NURSING ---
Entered patient's room and found 2 empty pop cans on bedside table. pts spouse apparently had given her. Educated on fluid restrictions and the importance of flowing them.
[2022-06-12 14:20] VITALS: BP 116/77; PULSE 100; RESP 18; O2SAT 94
[2022-06-12 15:37] VITALS: TEMP 35.6
[2022-06-12] MEDS: clonazePAM 0.5 MG Tablet PO (21:49)
[2022-06-12 21:50] VITALS: BP 104/48; PULSE 75; RESP 18
[2022-06-12] MEDS: Lisinopril 20 MG Tablet PO (21:53)
[2022-06-13 05:45] VITALS: BP 128/69; PULSE 89
[2022-06-13] MEDS: lamoTRIgine 150 MG Tablet 75 MG PO ×2 (05:46→17:59)
[2022-06-13] MEDS: Acetaminophen 500 MG Tablet 1000 MG PO ×3 (05:46→20:17)
[2022-06-13] MEDS: dilTIAZem CD 120 MG Capsule PO ×2 (05:46→18:06)
[2022-06-13] MEDS: Senna/Docusate Sodium 1 Tablet PO ×2 (05:46→18:05)
[2022-06-13] MEDS: Furosemide 40 MG Tablet PO ×2 (05:47→14:03)
[2022-06-13] MEDS: Nystatin Powder 15gm Bottle 1 APPLIC TOPICAL ×3 (05:47→20:18)
[2022-06-13] MEDS: Polyethylene Glycol 3350 17 GM PACKET PO (05:47)
[2022-06-13] MEDS: DULoxetine Hcl 30 MG Capsule PO (05:48)
[2022-06-13 06:46] LABS: Bedside Glucose 128 mg/dL (74-106)
[2022-06-13] MEDS: Aspirin E.C. 81 MG Tablet PO (08:58)
[2022-06-13] MEDS: Potassium Chloride Oral Tablet 20 MEQ PO ×2 (08:58→18:05)
[2022-06-13 16:00] VITALS: BP 108/53; PULSE 76; RESP 16; TEMP 35.9; O2SAT 98
[2022-06-13 20:15] VITALS: BP 98/62; PULSE 56
[2022-06-13] MEDS: Lisinopril 20 MG Tablet PO (20:17)
[2022-06-13] MEDS: clonazePAM 0.5 MG Tablet PO (20:18)
[2022-06-13 20:27] VITALS: PULSE 56; RESP 14; O2SAT 92
[2022-06-14] MEDS: Acetaminophen 500 MG Tablet 1000 MG PO ×3 (05:09→21:12)
[2022-06-14] MEDS: Senna/Docusate Sodium 1 Tablet PO ×2 (05:09→18:02)
[2022-06-14] MEDS: Furosemide 40 MG Tablet PO ×2 (05:09→14:39)
[2022-06-14] MEDS: lamoTRIgine 150 MG Tablet 75 MG PO ×2 (05:09→17:59)
[2022-06-14] MEDS: DULoxetine Hcl 30 MG Capsule PO (05:09)
[2022-06-14] MEDS: dilTIAZem CD 120 MG Capsule PO ×2 (05:10→17:59)
[2022-06-14] MEDS: Polyethylene Glycol 3350 17 GM PACKET PO (05:10)
[2022-06-14] MEDS: Nystatin Powder 15gm Bottle 1 APPLIC TOPICAL ×3 (05:10→21:12)
[2022-06-14 05:12] VITALS: BP 104/60; PULSE 84
[2022-06-14 06:55] LABS: Bedside Glucose 111 mg/dL (74-106)
[2022-06-14] MEDS: Aspirin E.C. 81 MG Tablet PO (08:14)
[2022-06-14] MEDS: Potassium Chloride Oral Tablet 20 MEQ PO ×2 (08:14→14:41)
[2022-06-14 09:17] VITALS: PULSE 57; RESP 18; O2SAT 91
[2022-06-14 13:45] VITALS: O2SAT 93
--- NOTE | 2022-06-14 14:47 | PCM.PN.DRR ---
TCU RX Drug Regimen Review Subjective: TCU Admission. 81 YOF presented to the ER with abdominal pain. Hospitalized for acute systolic congestive heart failure, complicated by atrial fibrillation with rapid ventricular response. Admitted to TCU with debility for strengthening and rehabilitation. Objective: Allergies bacitracin [From Neosporin ([id number])] Allergy (Verified 06/09/22 12:49) Rash SWOLLEN, ITCHING bacitracin zinc [From Neosporin (uob-mou-myeso)] Allergy (Verified 06/09/22 12:49) Rash SWOLLEN, ITCHING neomycin sulfate [From Neosporin (apl-uvq-oxthy)] Allergy (Verified 06/09/22 12:49) Rash SWOLLEN, ITCHING polymyxin B [From Neosporin ([id number])] Allergy (Verified 06/09/22 12:49) Rash SWOLLEN, ITCHING sulfamethoxazole [From Bactrim] Allergy (Verified 06/09/22 12:49) Itching trimethoprim [From Bactrim] Allergy (Verified 06/09/22 12:49) Itching codeine Adverse Reaction (Verified 06/09/22 12:49) Nausea milk Adverse Reaction (Verified 06/09/22 12:49) Nausea/Vom/Diarrhea Current Medications Generic Name Dose Route Start Last Admin Trade Name Freq PRN Reason Stop Dose Admin Acetaminophen 1,000 mg 06/11/22 22:00 06/14/22 14:39 Acetaminophen 500 Mg Tablet PO 1,000 mg Q8 ADÁN Administration Aspirin 81 mg 06/12/22 08:00 06/14/22 08:14 Aspirin E.C. 81 Mg Tablet PO 81 mg DAILYCM ADÁN Administration Clonazepam 0.5 mg 06/11/22 22:00 06/13/22 20:18 Clonazepam 0.5 Mg Tablet PO 0.5 mg QHS ADÁN Administration Diltiazem HCl 120 mg 06/12/22 06:00 06/14/22 05:10 Diltiazem Cd 120 Mg Capsule PO 120 mg Q12 ADÁN Administration Duloxetine HCl 30 mg 06/12/22 06:00 06/14/22 05:09 Duloxetine Hcl 30 Mg Capsule PO 30 mg DAILY ADÁN Administration Furosemide 40 mg 06/12/22 06:00 06/14/22 14:39 Furosemide 40 Mg Tablet PO 40 mg BIDLX ADÁN Administration Lamotrigine 75 mg 06/12/22 06:00 06/14/22 05:09 Lamotrigine 150 Mg Tablet PO 75 mg BID ADÁN Administration Lisinopril 20 mg 06/11/22 22:00 06/13/22 20:17 Lisinopril 20 Mg Tablet PO 20 mg QHS ADÁN Administration Nitroglycerin 0.4 mg 06/11/22 19:41 Nitroglycerin (Inpatient Use) 0.4 Mg Tab.Subl SL Q5M PRN CARDIAC/CHEST PAIN Nystatin 1 applic 06/11/22 22:00 06/14/22 14:41 Nystatin Powder 15gm Bottle TOPICAL 1 applic TID ADÁN Administration Protocol Oxycodone HCl 5 mg 06/11/22 19:26 Oxycodone 5 Mg Tablet PO Q4H PRN PRN Pain Score 4-10 Polyethylene Glycol 17 gm 06/12/22 06:00 06/14/22 05:10 Polyethylene Glycol 3350 17 Gm Packet PO 17 gm DAILY ADÁN Administration Potassium Chloride 20 meq 06/12/22 08:00 06/14/22 14:41 Potassium Chloride Oral Tablet 20 Meq PO 20 meq BIDCM ADÁN Administration Senna/Docusate Sodium 1 tablet 06/12/22 06:00 06/14/22 05:09 Senna/Docusate Sodium 1 Tablet PO 1 tablet BID ADÁN Administration Tuberculin PPD 0.1 ml 06/19/22 10:00 Tuberculin,Purif.Prot.Deriv. 50 Tu/Ml Vial ID 06/19/22 10:01 X1 ONE Problem List (Last Reviewed 06/11/22 @ 20:[address] Arsenio Pride MD) Anxiety (Acute) Depression (Acute) Chronic constipation (Chronic) Hypertension (Chronic) Seizure disorder (Acute) Diabetic neuropathy (Acute) Acute systolic congestive heart failure (Acute) Atrial fibrillation with rapid ventricular response (Acute) Debility (Acute) Vital Signs Temp Pulse Resp BP Pulse Ox O2 Del Method O2 Flow Rate 96.7 F L 57 L 18 104/60 91 Room Air 3 06/13/22 16:00 06/14/22 09:17 06/14/22 09:17 06/14/22 05:12 06/14/22 09:17 06/14/22 09:17 06/13/22 20:27 Oxygen Flow Rate (L/min) 3 Oxygen Delivery Method Room Air Weight: 86.183 kg Body Mass Index (BMI) 30.2 Sodium 139 mmol/L (136-145) 06/12/22 07:42 Potassium 4.0 mmol/L (3.5-5.1) 06/12/22 07:42 Chloride 105 mmol/L (98-107) 06/12/22 07:42 Carbon Dioxide 27.0 mmol/L (21.0-32.0) 06/12/22 07:42 Anion Gap 7 (5-15) 06/12/22 07:42 BUN 20 mg/dL (7-18) H 06/12/22 07:42 Creatinine 0.60 mg/dL (0.55-1.02) 06/12/22 07:42 Est GFR (MDRD) Af Amer 121 mL/min (>60) 06/12/22 07:42 Est GFR (MDRD) Non-Af 100 mL/min (>60) 06/12/22 07:42 BUN/Creatinine Ratio 33.1 RATIO (10-20) H 06/12/22 07:42 Glucose 120 mg/dL (74-106) H 06/12/22 07:42 Assessment/Plan: 1. Pain: acetaminophen 1000mg PO Q8 and oxycodone 5mg PO Q4H PRN pain 4-10. Resident has not received any PRN doses. Please continue to monitor for increased pain and PRN usage. 2. Bowel: Miralax 17gm PO daily and senna/docusate 1T PO BID. Please continue to monitor for constipation. No documented bowel movements so far. 3. Atrial fibrillation: diltiazem CD 120mg PO Q12 and aspirin 81mg PO daily. Please see physician note regarding anticoagulation. Please continue to monitor HR (last 57), BP (last 104/60), S/S of bleeding, and hemoglobin (last 11.5g/dL). 4. CHF/CAD: lisinopril 20mg PO QHS, furosemide 40mg PO BIDLX and nitroglycerin 0.4mg SL Q5M PRN chest pain. Please continue to monitor BP (last 104/60), cough, potassium (last 4mmol/L), sodium (last 139mmol/L), edema, renal function, PRN usage (no doses given so far). 5. Seizure disorder: lamotrigine 75mg PO BID. Please continue to monitor for S/S of seizure, rash (black box warning), falls/fractures (BEERs criteria medication). 6. Hypokalemia: potassium chloride 20mEq PO BIDCM. Please continue to monitor potassium levels. Assessment/Plan for indications treated with psychotropic medications: 1. Anxiety: clonazepam 0.5mg PO QHS. Please see physician note regarding GDR. Please continue to monitor falls/fractures/delirium/dementia (BEERs criteria medication). 2. Depression: duloxetine 30mg PO daily. Please see physician note regarding GDR. Please continue to monitor for suicidal ideation (black box warning), falls/fractures (BEERs criteria medication), sodium and weight gain. Medical chart and medication regimen reviewed. The following medication irregularities or issues were identified: None Date of Note:: 06/14/22
--- NOTE | 2022-06-14 15:10 | CASEMGMT ---
Social Work Met with patient to complete initial assessment. Pt known to this worker from previous stay. Verified contacts. Discussed code status and MOLST form. Pt confirmed full code. No changes to MOLST. Educated to Medicare benefit. Encouraged to contact secondary insurance to ensure copay coverage. Pt's goal is to return home with at [facility]. SW to continue to follow for DC planning. LULY Cee WARP DRESSER
--- NOTE | 2022-06-14 15:16 | NURSING ---
Cement Mason Note; Activity Asset: Tiffanie Walton is independent in her choice of daily activities. Isabelle will visit w/, read her books, daily paper and watch tv. At this time she is not interested in group activities maybe when she is feeling better she stated.
[2022-06-14 15:48] VITALS: BP 107/60; PULSE 98; RESP 18; TEMP 36.4; O2SAT 92
--- NOTE | 2022-06-14 15:52 | NURSING ---
Called to room by BELT TURNER, pt reported feeling weak and lightheaded. V.S. obtained, pt moving mouth in unusual way and appeared nervous and somewhat distraught. This nurse provided emotional support and pt calmed down. Notified Dr. Pride of pt condition. Advised to monitor pt. pt currently resting in bed with no distress noted and respirations even and unlabored.
[2022-06-14 16:14] VITALS: BP 121/74; PULSE 102; TEMP 36.9; O2SAT 94
--- NOTE | 2022-06-14 20:45 | NURSING ---
When assessing patient, SpO2 was 88% on RA. O2 applied at this time, 2L/min. Will continue to monitor.
[2022-06-14] MEDS: clonazePAM 0.5 MG Tablet PO (21:09)
--- NOTE | 2022-06-14 21:15 | NURSING ---
Blood Pressure 92/63. Lisinopril held at this time. Will continue to monitor.
--- NOTE | 2022-06-14 23:20 | NURSING ---
Patient c/o not being able to sleep and having some anxiety. Clonazepam was administered with HS medications as ordered. Will continue to monitor.
[2022-06-14] MEDS: oxyCODONE 5 MG Tablet PO (23:41)
[2022-06-15] MEDS: Acetaminophen 500 MG Tablet 1000 MG PO ×3 (06:12→22:44)
[2022-06-15] MEDS: DULoxetine Hcl 30 MG Capsule PO (06:12)
[2022-06-15] MEDS: dilTIAZem CD 120 MG Capsule PO ×2 (06:12→18:07)
[2022-06-15] MEDS: lamoTRIgine 150 MG Tablet 75 MG PO ×2 (06:12→18:06)
[2022-06-15] MEDS: Furosemide 40 MG Tablet PO ×2 (06:12→14:47)
[2022-06-15] MEDS: Senna/Docusate Sodium 1 Tablet PO ×2 (06:16→18:06)
[2022-06-15] MEDS: Polyethylene Glycol 3350 17 GM PACKET PO (06:18)
[2022-06-15] MEDS: Nystatin Powder 15gm Bottle 1 APPLIC TOPICAL ×3 (06:28→22:45)
[2022-06-15 06:45] LABS: Bedside Glucose 108 mg/dL (74-106)
[2022-06-15] MEDS: Potassium Chloride Oral Tablet 20 MEQ PO ×2 (08:03→18:06)
[2022-06-15] MEDS: Aspirin E.C. 81 MG Tablet PO (08:03)
--- NOTE | 2022-06-15 15:46 | CHAPLAIN ---
Type of Pastoral Visit _x__ Initial Visit ___ Follow-up Visit ___ On-call Visit ___ General Patient Visit ___ Spiritual Assessment ___ Family Conference ___ Bereavement ___ Rapid Response ___ Code Blue ___ Other (describe below) Pastoral Care Referral From _x__ Patient ___ Family ___ Nurse ___ Physician ___ Operations Forester ___ Motion Picture Narrator ___ Other (describe below) Sacrament/Intervention _x__ Active listening ___ Anointing ___ Pentecostal ___ Bereavement ___ Communion ___ Myla exploration ___ _x__ Life review _x__ Prayer ___ Reconciliation ___ Sacrament of Sick _x__ Supportive presence ___ Wedding ___ Other (describe below) Pastoral Comments patient had been seen in PCU; pt speaks about her family and her ; pt had moved back to [place] from [facility] and really misses the people and climate; pt has one son in the area and one son in [place]; pt is talkative about life; pt acknowledges that her aging situation is demanding changes coming in the future;
[2022-06-15 18:12] VITALS: BP 119/79; PULSE 99
--- NOTE | 2022-06-15 19:24 | NURSING ---
Called to inquire about 30 day cardiac home monitor. Per was never sent to house and unaware if it was even order.
[2022-06-15 20:00] VITALS: RESP 16; O2SAT 93
[2022-06-15] MEDS: Lisinopril 20 MG Tablet PO (22:45)
[2022-06-15] MEDS: clonazePAM 0.5 MG Tablet PO (23:04)
[2022-06-16] MEDS: dilTIAZem CD 120 MG Capsule PO ×2 (06:43→18:03)
[2022-06-16] MEDS: DULoxetine Hcl 30 MG Capsule PO (06:43)
[2022-06-16] MEDS: Furosemide 40 MG Tablet PO ×2 (06:43→14:05)
[2022-06-16] MEDS: lamoTRIgine 150 MG Tablet 75 MG PO (06:43)
[2022-06-16] MEDS: Acetaminophen 500 MG Tablet 1000 MG PO ×3 (06:44→20:34)
[2022-06-16] MEDS: Nystatin Powder 15gm Bottle 1 APPLIC TOPICAL ×3 (06:45→20:33)
[2022-06-16 06:51] LABS: Bedside Glucose 114 mg/dL (74-106)
[2022-06-16] MEDS: Polyethylene Glycol 3350 17 GM PACKET PO (06:57)
[2022-06-16] MEDS: Senna/Docusate Sodium 1 Tablet PO ×2 (06:57→18:06)
[2022-06-16] MEDS: Aspirin E.C. 81 MG Tablet PO (08:04)
[2022-06-16] MEDS: Potassium Chloride Oral Tablet 20 MEQ PO ×2 (08:04→18:00)
[2022-06-16 10:00] VITALS: RESP 16; O2SAT 94
--- NOTE | 2022-06-16 13:30 | CASEMGMT ---
Social Work Plan of care meeting held. Patient present as well as patient spouse, Kit. No discharge date set. Patient progressing in therapy and recommendation is for patient to continue with further care and treatment on the Transitional Care Unit. Patient agreeable with plan to continue with care and treatment on the Transitional Care Unit. Patient plans to discharge to home with spouse when patient does discharge to the community. Social Work to continue to follow. Jose C MAURICIO, LIMA-S
[2022-06-16 16:00] VITALS: BP 133/65; PULSE 80; RESP 18; TEMP 35.9; O2SAT 97
[2022-06-16] MEDS: lamoTRIgine 100 MG Tablet PO (18:04)
[2022-06-16 20:30] VITALS: BP 105/56; PULSE 78; RESP 16; O2SAT 93
[2022-06-16] MEDS: clonazePAM 0.5 MG Tablet PO (20:33)
[2022-06-16] MEDS: Lisinopril 20 MG Tablet PO (20:34)
[2022-06-16] MEDS: oxyCODONE 5 MG Tablet PO (22:17)
[2022-06-17] MEDS: Furosemide 40 MG Tablet PO ×2 (05:04→17:09)
[2022-06-17] MEDS: lamoTRIgine 150 MG Tablet 75 MG PO (05:04)
[2022-06-17] MEDS: DULoxetine Hcl 30 MG Capsule PO (05:04)
[2022-06-17] MEDS: dilTIAZem CD 120 MG Capsule PO ×2 (05:04→17:10)
[2022-06-17] MEDS: Acetaminophen 500 MG Tablet 1000 MG PO ×2 (05:04→17:10)
[2022-06-17] MEDS: Nystatin Powder 15gm Bottle 1 APPLIC TOPICAL ×3 (05:06→20:59)
[2022-06-17] MEDS: Senna/Docusate Sodium 1 Tablet PO ×2 (05:06→17:13)
[2022-06-17] MEDS: Polyethylene Glycol 3350 17 GM PACKET PO (05:06)
[2022-06-17 05:10] VITALS: BP 110/85; PULSE 68; RESP 18; O2SAT 92
[2022-06-17 06:50] LABS: Bedside Glucose 91 mg/dL (74-106)
[2022-06-17] MEDS: Aspirin E.C. 81 MG Tablet PO (08:43)
[2022-06-17] MEDS: Potassium Chloride Oral Tablet 20 MEQ PO ×2 (08:43→17:09)
--- NOTE | 2022-06-17 11:17 | EKG12_ITS ---
Test Reason : Blood Pressure : / mmHG Vent. Rate : 081 BPM Atrial Rate : 340 BPM P-R Int : 000 ms QRS Dur : 154 ms QT Int : 424 ms P-R-T Axes : 000 -26 117 degrees QTc Int : 492 ms Atrial fibrillation Left bundle branch block Abnormal ECG When compared with ECG of 09-JUN-2022 13:32, Vent. rate has decreased BY 43 BPM T wave inversion less evident in Lateral leads Confirmed by AIDE LYNN, MOOK ([id number]), newspaper copy editor MAMADOU TROY ([id number]) on 06/21/2022 12:41:13 PM Referred By: SEFERINO Confirmed By:JOLEEN NOBLE MD
[2022-06-17 11:35] LABS: Bedside Glucose 132 mg/dL (74-106)
[2022-06-17 11:36] VITALS: BP 113/55; PULSE 61
[2022-06-17] MEDS: Nitroglycerin (INPATIENT USE) 0.4 MG TAB.SUBL SL ×2 (11:36→11:52)
[2022-06-17 11:52] VITALS: BP 107/50; PULSE 85
--- NOTE | 2022-06-17 12:06 | NURSING ---
Addendum entered by Beatrice Iraheta 06/17/22 12:28: Notified that pt was sent to ER. Original Note: PLANT MAINTENANCE TECHNICIAN came and found this nurse around 1100 stating that patient had chest discomfort. Upon assessment patient stated that chest pain was 8/10. Vital signs take BP 113/55, pulse 61, oxygen 91% on 3L o2. EKG was obtained and showed AFIB and bundle branch block. Nitroglycerin given x2 with no relief noted by patient. Patient denied any referred pain and no nausea. Patient did have several episodes of closing eyes and head shaking, but was easily aroused when spoken too. Patient was noted to have some accessory muscle use when breathing and complained of some shortness of breath. Lung sounds were diminished posteriorly. Dr. Pride was notified and patient was sent to ER for further evaluation.
[2022-06-17] MEDS: lamoTRIgine 100 MG Tablet PO (17:10)
[2022-06-17 19:59] LABS: Bacteria 0 SEEN /hpf (None Seen); Mucous, Urine 0 SEEN /hpf (<or=2+); Red Blood Cells-Urine 0 SEEN /hpf (0-5); Squamous Epithelial Cells - UA 0 SEEN /hpf (5-10); White Blood Cells 0 SEEN /hpf (0-5)
[2022-06-17 20:00] VITALS: BP 122/68; PULSE 97; RESP 18; O2SAT 90; O2SAT 91
[2022-06-17 20:02] LABS: Color, Urine Yellow (Yellow); Glucose, Dipstick Normal (Normal); Ketone-Dipstick Negative (Negative); Leukocyte Esterase-Dipstick Negative /ul (Negative); Nitrite-Dipstick Negative (Negative); Occult Blood-Urine Negative /ul (Negative); Protein-Dipstick Negative (Negative); Specific Gravity, Urine 1.015 (1.002-1.030); Urine Bilirubin Dipstick Negative (Negative); Urine Clarity Clear (Clear); Urine Urobilinogen Normal (Normal)
[2022-06-17] MEDS: 0.9% Saline Lock 10 ML Syringe IV ×4 (20:11→20:49)
[2022-06-17] MEDS: Ketorolac 30 MG/ML Syringe IV (20:13)
[2022-06-17] MEDS: Orphenadrine 60 MG/2 ML Ampul IV (20:18)
[2022-06-17 20:30] VITALS: BP 119/58; PULSE 90; RESP 18; O2SAT 91
[2022-06-17] MEDS: Furosemide 100 MG/10 ML Vial 80 MG IV (20:33)
[2022-06-17] MEDS: levoFLOXacin IV 750 MG/150 ML BAG 100 MG IV (20:56)
[2022-06-17] MEDS: Lisinopril 20 MG Tablet PO (21:01)
[2022-06-17 21:08] VITALS: BP 138/51; PULSE 92; RESP 16; O2SAT 91
--- NOTE | 2022-06-17 23:00 | NURSING ---
Presents in bed with eyes closed, no distress observed or reported. No c/o pain. Resps even and unlabored. O2 on via NC at 3L. No adverse effects observed or reported related to IV ATB. Call light in reach.
[2022-06-18] MEDS: lamoTRIgine 150 MG Tablet 75 MG PO (06:17)
[2022-06-18] MEDS: Acetaminophen 500 MG Tablet 1000 MG PO ×3 (06:18→21:01)
[2022-06-18] MEDS: Furosemide 40 MG Tablet PO ×2 (06:18→14:07)
[2022-06-18] MEDS: DULoxetine Hcl 30 MG Capsule PO (06:18)
[2022-06-18] MEDS: Nystatin Powder 15gm Bottle 1 APPLIC TOPICAL ×3 (06:20→21:03)
[2022-06-18] MEDS: Polyethylene Glycol 3350 17 GM PACKET PO (06:25)
[2022-06-18] MEDS: Senna/Docusate Sodium 1 Tablet PO ×2 (06:25→16:35)
[2022-06-18 06:55] LABS: Bedside Glucose 114 mg/dL (74-106)
--- NOTE | 2022-06-18 07:35 | NURSING ---
Patient reports drinking lots of gingerale in the ED yesterday because it helped the pain. Patient educated on fluid restriction and importance of complying with it per Doctor order. Patient educated fluid restriction 1500cc, patient verbalized understanding. Reports pain as so much better. Patient appears improved this AM but reports continued weakness. No distress observed or reported. Call light in reach.
[2022-06-18] MEDS: Aspirin E.C. 81 MG Tablet PO (08:44)
[2022-06-18] MEDS: Potassium Chloride Oral Tablet 20 MEQ PO ×2 (08:44→16:32)
[2022-06-18] MEDS: dilTIAZem CD 120 MG Capsule PO ×2 (08:44→21:01)
--- NOTE | 2022-06-18 09:52 | NURSING ---
[employer] Note; MDS Complete
[2022-06-18] MEDS: levoFLOXacin IV 750 MG/150 ML BAG 100 MG IV (10:00)
[2022-06-18] MEDS: 0.9% Saline Lock 10 ML Syringe IV ×2 (10:03→15:09)
--- NOTE | 2022-06-18 13:20 | CASEMGMT ---
Social Work BIMS () and PHQ-9 (10/09) completed for MDS assessment. Char Sosa MSW MIXER OPERATOR
[2022-06-18 14:39] VITALS: BP 103/57; PULSE 89; RESP 21; TEMP 36.1; O2SAT 96
[2022-06-18] MEDS: Furosemide 100 MG/10 ML Vial 80 MG IV (15:09)
--- NOTE | 2022-06-18 15:22 | NURSING ---
80mg IV lasix given per Dr Pride order. pt resting in bed, awakened to administer.
[2022-06-18] MEDS: lamoTRIgine 100 MG Tablet PO (16:32)
[2022-06-18] MEDS: clonazePAM 0.5 MG Tablet PO (21:00)
[2022-06-18] MEDS: Lisinopril 20 MG Tablet PO (21:03)
--- NOTE | 2022-06-18 21:30 | NURSING ---
bladder scan for 360mL , patient declines straight cath at this time stating I've been doing good all day, I would rather wait and see if I can empty out a little later. Will continue bladder scan. Patient A&Ox3. staff assist to bathroom. No distress observed or reported
[2022-06-19] MEDS: Polyethylene Glycol 3350 17 GM PACKET PO (04:44)
[2022-06-19] MEDS: Senna/Docusate Sodium 1 Tablet PO ×2 (04:44→17:31)
[2022-06-19] MEDS: Nystatin Powder 15gm Bottle 1 APPLIC TOPICAL ×3 (04:45→21:30)
[2022-06-19] MEDS: lamoTRIgine 150 MG Tablet 75 MG PO (04:45)
[2022-06-19] MEDS: Furosemide 40 MG Tablet PO ×2 (04:46→14:10)
[2022-06-19] MEDS: Acetaminophen 500 MG Tablet 1000 MG PO ×3 (04:46→21:31)
[2022-06-19] MEDS: DULoxetine Hcl 30 MG Capsule PO (04:47)
[2022-06-19 04:55] VITALS: BP 104/56; PULSE 78; RESP 16; O2SAT 97
[2022-06-19 06:30] LABS: Bedside Glucose 135 mg/dL (74-106)
[2022-06-19 07:29] LABS: Absolute Lymphocyte Count 1.14 X10^3/uL (0.83-4.51); Absolute Neutrophil Count 7.1 X10^3/uL (2.0-7.7); Basophil# 0.08 X10^3/uL; Basophil% 0.9 % (0-1); Eosinophils% 2.1 % (0-5); Hematocrit 38.4 % (37-47); Hemoglobin 11.8 g/dL (12.0-15.0); Lymphocyte # 1.14 X10^3/ul (0.83-4.51); Lymphocyte % 12.2 % (19-41); Mean Corp Hgb Conc 30.7 g/dL (32-36); Mean Corpuscular Hgb 31.9 pg (27.0-32.0); Mean Corpuscular Volume 103.8 fL (81-99); Mean Platelet Vol. 9.7 fl (6.2-12.0); Monocyte# 0.78 X10^3/uL; Monocyte% 8.4 % (0-10); NRBC Flagged by Analyzer 0 % (0-5); Neutrophil # 7.08 X10^3/uL (2.7-7.7); Neutrophil % 75.8 % (47-70); POSITIVE COUNT YES; Platelet Count 455 K/mm3 (150-450); RBC Distribution Width CV 14.6 % (11.6-14.6); RBC Distribution Width SD 56.6 fl (35.1-43.9); White Blood Count 9.3 K/mm3 (4.4-11.0)
[2022-06-19 07:50] LABS: Anion Gap 7 (5-15); BUN 32 mg/dL (7-18); BUN/Creat Ratio 29.6 RATIO (10-20); Calcium,Total 9.1 mg/dL (8.5-10.1); Chloride 103 mmol/L (98-107); Creatinine, Serum 1.08 mg/dL (0.55-1.02); EST Glomerular Filtration Rate 51 mL/min (>60); Est Glom Filt Rate - Afr Amer 62 mL/min (>60); Estimated Creatinine Clearance 38.38 ml/min; Glucose 119 mg/dL (74-106); Potassium 4.8 mmol/L (3.5-5.1); Sodium Level 137 mmol/L (136-145)
[2022-06-19] MEDS: Potassium Chloride Oral Tablet 20 MEQ PO ×2 (09:18→17:26)
[2022-06-19] MEDS: Aspirin E.C. 81 MG Tablet PO (09:19)
[2022-06-19] MEDS: 0.9% Saline Lock 10 ML Syringe IV (09:19)
[2022-06-19] MEDS: levoFLOXacin IV 750 MG/150 ML BAG 100 MG IV (09:19)
[2022-06-19] MEDS: dilTIAZem CD 120 MG Capsule PO ×2 (09:19→21:28)
[2022-06-19] MEDS: Tuberculin,Purif.prot.deriv. 50 TU/ML Vial 0.1 ML ID (09:23)
[2022-06-19 14:54] VITALS: BP 99/50; PULSE 73; RESP 16; TEMP 36.5; O2SAT 95
[2022-06-19] MEDS: lamoTRIgine 100 MG Tablet PO (17:25)
[2022-06-19 21:00] VITALS: PULSE 91; RESP 18; O2SAT 95
[2022-06-19] MEDS: Lisinopril 20 MG Tablet PO (21:31)
[2022-06-19] MEDS: clonazePAM 0.5 MG Tablet PO (21:31)
--- NOTE | 2022-06-20 05:03 | NURSING ---
Patient's bladder scanned prior to voiding, with reading of 592. After voiding reading was 464. Patient refused to be straight cath'd at this time and wants to attempt to void again in a little while. Will continue to monitor.
[2022-06-20] MEDS: 0.9% Saline Lock 10 ML Syringe IV (05:07)
[2022-06-20] MEDS: Polyethylene Glycol 3350 17 GM PACKET PO (05:10)
[2022-06-20] MEDS: Senna/Docusate Sodium 1 Tablet PO ×2 (05:10→17:00)
[2022-06-20] MEDS: lamoTRIgine 150 MG Tablet 75 MG PO (05:11)
[2022-06-20] MEDS: Furosemide 40 MG Tablet PO ×2 (05:11→12:38)
[2022-06-20] MEDS: DULoxetine Hcl 30 MG Capsule PO (05:11)
[2022-06-20] MEDS: Nystatin Powder 15gm Bottle 1 APPLIC TOPICAL ×3 (05:11→22:20)
[2022-06-20] MEDS: Acetaminophen 500 MG Tablet 1000 MG PO ×3 (05:11→22:20)
[2022-06-20 06:30] LABS: Bedside Glucose 114 mg/dL (74-106)
[2022-06-20] MEDS: levoFLOXacin IV 750 MG/150 ML BAG 100 MG IV (09:11)
[2022-06-20] MEDS: dilTIAZem CD 120 MG Capsule PO ×2 (09:13→22:21)
[2022-06-20] MEDS: Aspirin E.C. 81 MG Tablet PO (09:13)
[2022-06-20] MEDS: Potassium Chloride Oral Tablet 20 MEQ PO ×2 (09:13→16:59)
[2022-06-20 15:35] VITALS: BP 114/59; PULSE 74; RESP 16; TEMP 36.2; O2SAT 95
[2022-06-20] MEDS: lamoTRIgine 100 MG Tablet PO (17:00)
[2022-06-20] MEDS: clonazePAM 0.5 MG Tablet PO (22:19)
[2022-06-20] MEDS: Lisinopril 20 MG Tablet PO (22:21)
[2022-06-21] MEDS: Acetaminophen 500 MG Tablet 1000 MG PO ×3 (04:52→21:01)
[2022-06-21] MEDS: Polyethylene Glycol 3350 17 GM PACKET PO (04:52)
[2022-06-21] MEDS: DULoxetine Hcl 30 MG Capsule PO (04:52)
[2022-06-21] MEDS: Furosemide 40 MG Tablet PO ×2 (04:52→13:16)
[2022-06-21] MEDS: Nystatin Powder 15gm Bottle 1 APPLIC TOPICAL ×3 (04:53→21:01)
[2022-06-21] MEDS: Senna/Docusate Sodium 1 Tablet PO ×2 (04:53→17:44)
[2022-06-21] MEDS: lamoTRIgine 150 MG Tablet 75 MG PO (04:55)
[2022-06-21 06:40] LABS: Bedside Glucose 129 mg/dL (74-106)
[2022-06-21 06:47] VITALS: O2SAT 95
[2022-06-21] MEDS: dilTIAZem CD 120 MG Capsule PO ×2 (09:04→21:03)
[2022-06-21] MEDS: Potassium Chloride Oral Tablet 20 MEQ PO ×2 (09:04→17:44)
[2022-06-21] MEDS: Aspirin E.C. 81 MG Tablet PO (09:04)
[2022-06-21 15:25] VITALS: BP 107/57; PULSE 63; RESP 16; TEMP 36.4; O2SAT 96
[2022-06-21] MEDS: lamoTRIgine 100 MG Tablet PO (17:44)
[2022-06-21 21:00] VITALS: PULSE 64; RESP 16; O2SAT 99
[2022-06-21] MEDS: clonazePAM 0.5 MG Tablet PO (21:00)
[2022-06-21] MEDS: Lisinopril 20 MG Tablet PO (21:03)
[2022-06-22 06:56] LABS: Bedside Glucose 123 mg/dL (74-106)
[2022-06-22] MEDS: Acetaminophen 500 MG Tablet 1000 MG PO ×3 (06:59→21:37)
[2022-06-22] MEDS: DULoxetine Hcl 30 MG Capsule PO (06:59)
[2022-06-22] MEDS: Polyethylene Glycol 3350 17 GM PACKET PO (06:59)
[2022-06-22] MEDS: Furosemide 40 MG Tablet PO ×2 (06:59→13:37)
[2022-06-22] MEDS: Senna/Docusate Sodium 1 Tablet PO ×2 (06:59→16:51)
[2022-06-22] MEDS: levoFLOXacin 750 MG Tablet PO (06:59)
[2022-06-22] MEDS: lamoTRIgine 150 MG Tablet 75 MG PO (06:59)
[2022-06-22] MEDS: Nystatin Powder 15gm Bottle 1 APPLIC TOPICAL ×3 (07:00→21:36)
[2022-06-22] MEDS: Aspirin E.C. 81 MG Tablet PO (09:35)
[2022-06-22] MEDS: dilTIAZem CD 120 MG Capsule PO ×2 (09:35→21:43)
[2022-06-22] MEDS: Potassium Chloride Oral Tablet 20 MEQ PO ×2 (09:35→16:51)
[2022-06-22 16:00] VITALS: BP 90/53; PULSE 82; RESP 17; TEMP 35.9; O2SAT 96
[2022-06-22] MEDS: lamoTRIgine 100 MG Tablet PO (16:51)
--- NOTE | 2022-06-22 20:15 | NURSING ---
Pt ref. rail padding for seizure precautions x3 despite much education. Will readdress @ a later time.
[2022-06-22 21:35] VITALS: BP 93/60; PULSE 89; RESP 16; O2SAT 98
[2022-06-22] MEDS: clonazePAM 0.5 MG Tablet PO (21:43)
[2022-06-22] MEDS: Lisinopril 20 MG Tablet PO (21:44)
[2022-06-22 21:49] VITALS: PULSE 89; RESP 16; O2SAT 98
--- NOTE | 2022-06-23 02:16 | NURSING ---
Pt cont. to ref. padding to bed rails. This nurse cont. to educated the importance of the padding if she were to have a seizure while in bed. Pt voices understanding of the significance of precautions, but cont. to ref.
[2022-06-23] MEDS: Polyethylene Glycol 3350 17 GM PACKET PO (04:44)
[2022-06-23] MEDS: Nystatin Powder 15gm Bottle 1 APPLIC TOPICAL ×3 (04:44→20:03)
[2022-06-23] MEDS: Acetaminophen 500 MG Tablet 1000 MG PO ×3 (04:44→20:00)
[2022-06-23] MEDS: lamoTRIgine 100 MG Tablet PO ×2 (04:44→17:13)
[2022-06-23] MEDS: Senna/Docusate Sodium 1 Tablet PO ×2 (04:44→17:11)
[2022-06-23] MEDS: DULoxetine Hcl 30 MG Capsule PO (04:44)
[2022-06-23 04:45] VITALS: BP 84/44; PULSE 74; RESP 16; O2SAT 94
[2022-06-23 06:36] VITALS: BP 90/47; PULSE 73
[2022-06-23 06:45] LABS: Bedside Glucose 109 mg/dL (74-106)
[2022-06-23] MEDS: Furosemide 40 MG Tablet PO ×2 (07:54→16:20)
[2022-06-23] MEDS: dilTIAZem CD 120 MG Capsule PO ×2 (07:54→20:00)
[2022-06-23] MEDS: Aspirin E.C. 81 MG Tablet PO (07:54)
[2022-06-23] MEDS: Potassium Chloride Oral Tablet 20 MEQ PO ×2 (07:54→17:11)
[2022-06-23 16:00] VITALS: BP 104/53; PULSE 61; RESP 16; TEMP 36.8; O2SAT 94
[2022-06-23] MEDS: Lisinopril 20 MG Tablet PO (20:00)
[2022-06-24] VITALS (7 sets, daily range): BP systolic 82–110; BP diastolic 39–56; PULSE 58–69; RESP 16–18; TEMP 36.3–36.6; O2SAT 92–97
[2022-06-24] MEDS: DULoxetine Hcl 30 MG Capsule PO (04:52)
[2022-06-24] MEDS: Acetaminophen 500 MG Tablet 1000 MG PO ×3 (04:52→20:58)
[2022-06-24] MEDS: Polyethylene Glycol 3350 17 GM PACKET PO (04:52)
[2022-06-24] MEDS: lamoTRIgine 100 MG Tablet PO ×2 (04:53→18:19)
[2022-06-24] MEDS: Furosemide 40 MG Tablet PO ×2 (04:53→14:35)
[2022-06-24] MEDS: levoFLOXacin 750 MG Tablet PO (04:53)
[2022-06-24] MEDS: Senna/Docusate Sodium 1 Tablet PO ×2 (04:53→18:18)
[2022-06-24] MEDS: Nystatin Powder 15gm Bottle 1 APPLIC TOPICAL ×3 (05:00→20:57)
[2022-06-24 06:36] LABS: Bedside Glucose 116 mg/dL (74-106)
[2022-06-24] MEDS: Potassium Chloride Oral Tablet 20 MEQ PO ×2 (08:47→18:18)
[2022-06-24] MEDS: Aspirin E.C. 81 MG Tablet PO (08:47)
[2022-06-24] MEDS: dilTIAZem CD 120 MG Capsule PO ×2 (08:48→20:59)
--- NOTE | 2022-06-24 13:47 | MDS.RN ---
Information for the mds was obtained from review of the clinical record, interview of resident, staff, and direct observation of resident's care.
--- NOTE | 2022-06-24 18:45 | NURSING ---
PT WITH URINARY FREQUENCY, HAS BEEN TO BR 5X'S IN ONE HR.
--- NOTE | 2022-06-24 19:43 | NURSING ---
1850; PRESS OPERATOR APPRENTICE REPORT PT IS URINATING ALOT THIS EMILY. DR. GENTILE NOTIFIED AND ORDER RECEIVED TO COLLECT URINE SPECIMEN. THIS NURSE WENT INTO ASSESS PT. SHE WAS ON COMMODE. ASSISTED PT OFF COMMODE. PT STATES SHE FELT 'FOGGY' SKIN WARM AND DRY, DENIES NAUSEA. PT ASKING TO WASH HANDS AND BRUSH TEETH. THIS NURSE OFFERED TO SET PT UP IN CHAIR OR BED TO DO THIS PT STATES SHE FELT SHE WAS ABLE TO DO TASKS AT SINK. NURSE STOOD BY PT AT SINK. WHEN PT FINISHED THIS NURSE ASSISTED PT TO BED. PT STATES SHE STILL FEELS 'FOGGY' 1899 VS 82/40 HR 66. SKIN REMAINS WARM AND DRY, DENIES NAUSEA. PT PLACED IN [place]. 1902 VS 84/39 HR 68. NO CHANGES. SKIN WARM AND DRY, DENIES NAUSEA. REPORT ON PT GIVEN. 1909 PT SBP IN 90'S PT TAKEN OUT OF [place]. RESTING IN BED AT THIS TIME.
--- NOTE | 2022-06-24 19:45 | NURSING ---
Addendum entered by Digna Wolfe 06/25/22 05:03: Written communication left for Dr. Pride regarding urine retention, patient request for increase in fluid restriction due to feeling thirsty all the time and Patient request for med to promote sleep. Lungs clear, no edema to BLE. Original Note: Bladder scanned due to staff report frequent urination, bladder scan result 489mL post-void, straight cath with patient consent, aseptic technique maintained, second nurse present to assist, urine sample obtained per order and 600mL clear yellow urine obtained, patient tolerated well. Patient reports feeling better, VSS (see vital signs) resps even and unlabored. No distress observed or reported. No further complaints at this time. Call light in reach.
[2022-06-24 20:51] LABS: Bacteria 0 SEEN /hpf (None Seen); Mucous, Urine 0 SEEN /hpf (<or=2+); Red Blood Cells-Urine 0 SEEN /hpf (0-5); Squamous Epithelial Cells - UA 0 SEEN /hpf (5-10); White Blood Cells 0 SEEN /hpf (0-5)
[2022-06-24 20:55] LABS: Color, Urine Yellow (Yellow); Glucose, Dipstick Normal (Normal); Ketone-Dipstick Negative (Negative); Leukocyte Esterase-Dipstick Negative /ul (Negative); Nitrite-Dipstick Negative (Negative); Occult Blood-Urine Negative /ul (Negative); Protein-Dipstick Negative (Negative); Specific Gravity, Urine 1.015 (1.002-1.030); Urine Bilirubin Dipstick Negative (Negative); Urine Clarity Clear (Clear); Urine Urobilinogen Normal (Normal)
[2022-06-24] MEDS: Lisinopril 20 MG Tablet PO (20:58)
[2022-06-25] MEDS: Nystatin Powder 15gm Bottle 1 APPLIC TOPICAL ×3 (04:58→20:56)
[2022-06-25] MEDS: Furosemide 40 MG Tablet PO ×2 (04:59→14:34)
[2022-06-25] MEDS: DULoxetine Hcl 30 MG Capsule PO (04:59)
[2022-06-25] MEDS: Acetaminophen 500 MG Tablet 1000 MG PO ×3 (04:59→20:56)
[2022-06-25] MEDS: lamoTRIgine 100 MG Tablet PO ×2 (04:59→18:17)
[2022-06-25] MEDS: Senna/Docusate Sodium 1 Tablet PO (04:59)
[2022-06-25] MEDS: Polyethylene Glycol 3350 17 GM PACKET PO (05:03)
[2022-06-25 06:45] LABS: Bedside Glucose 111 mg/dL (74-106)
[2022-06-25 07:25] VITALS: O2SAT 93
[2022-06-25] MEDS: Aspirin E.C. 81 MG Tablet PO (09:53)
[2022-06-25] MEDS: dilTIAZem CD 120 MG Capsule PO ×2 (09:53→20:57)
[2022-06-25] MEDS: Potassium Chloride Oral Tablet 20 MEQ PO ×2 (09:53→18:17)
[2022-06-25 10:52] LABS: Absolute Lymphocyte Count 1.49 X10^3/uL (0.83-4.51); Absolute Neutrophil Count 8.2 X10^3/uL (2.0-7.7); Basophil# 0.07 X10^3/uL; Basophil% 0.7 % (0-1); Eosinophil# 0.25 X10^3/uL; Eosinophils% 2.3 % (0-5); Hematocrit 41.7 % (37-47); Hemoglobin 13.2 g/dL (12.0-15.0); Lymphocyte # 1.49 X10^3/ul (0.83-4.51); Mean Corp Hgb Conc 31.7 g/dL (32-36); Mean Corpuscular Hgb 31.3 pg (27.0-32.0); Mean Corpuscular Volume 98.8 fL (81-99); Mean Platelet Vol. 9.1 fl (6.2-12.0); Monocyte# 0.64 X10^3/uL; NRBC Flagged by Analyzer 0 % (0-5); Neutrophil # 8.15 X10^3/uL (2.7-7.7); Neutrophil % 76.3 % (47-70); Platelet Count 429 K/mm3 (150-450); RBC Distribution Width SD 51.2 fl (35.1-43.9); Red Blood Count 4.22 M/mm3 (4.2-5.4); White Blood Count 10.7 K/mm3 (4.4-11.0)
[2022-06-25 11:14] LABS: BNP,B-Type NATRIURETIC PEPTIDE 102.3 pg/mL (0-100)
[2022-06-25 11:17] LABS: Anion Gap 6 (5-15); BUN 30 mg/dL (7-18); BUN/Creat Ratio 33.7 RATIO (10-20); Calcium,Total 9.7 mg/dL (8.5-10.1); Chloride 105 mmol/L (98-107); Creatinine, Serum 0.89 mg/dL (0.55-1.02); EST Glomerular Filtration Rate 64 mL/min (>60); Est Glom Filt Rate - Afr Amer 78 mL/min (>60); Estimated Creatinine Clearance 46.57 ml/min; Glucose 130 mg/dL (74-106); Potassium 4.8 mmol/L (3.5-5.1); Sodium Level 137 mmol/L (136-145)
--- NOTE | 2022-06-25 15:15 | CHAPLAIN ---
Type of Pastoral Visit ___ Initial Visit _x__ Follow-up Visit ___ On-call Visit ___ General Patient Visit ___ Spiritual Assessment ___ Family Conference ___ Bereavement ___ Rapid Response ___ Code Blue ___ Other (describe below) Pastoral Care Referral From _x__ Patient ___ Family ___ Nurse ___ Physician ___ Solar Sales Estimator ___ Nuclear Medicine Pet Ct Technologist ___ Other (describe below) Sacrament/Intervention _x__ Active listening ___ Anointing ___ Jehovah'S Witness ___ Bereavement ___ Communion ___ Myla exploration ___ ___ Life review _x__ Prayer ___ Reconciliation ___ Sacrament of Sick _x__ Supportive presence ___ Wedding ___ Other (describe below) Pastoral Comments patient speaks of her last 24 hours and latest health concerns; pt spouse is with her in the room; discussion on life review, past and present illness, and the weather; pt asks for prayer; offer of ongoing support as desired
[2022-06-25 15:50] VITALS: BP 111/60; PULSE 54; RESP 16; TEMP 36.3; O2SAT 95
[2022-06-25] MEDS: Tamsulosin HCl 0.4 MG Capsule PO (18:17)
[2022-06-25] MEDS: MELATONIN 10 MG TABLET PO (20:57)
[2022-06-25] MEDS: Lisinopril 20 MG Tablet PO (20:57)
[2022-06-26 04:30] VITALS: BP 111/54; PULSE 65; RESP 18; TEMP 36.4; O2SAT 95
[2022-06-26] MEDS: oxyCODONE 5 MG Tablet PO (04:31)
[2022-06-26] MEDS: Acetaminophen 500 MG Tablet 1000 MG PO ×3 (04:32→20:06)
[2022-06-26] MEDS: Senna/Docusate Sodium 1 Tablet PO ×2 (04:33→18:04)
[2022-06-26] MEDS: Furosemide 40 MG Tablet PO (04:33)
[2022-06-26] MEDS: Polyethylene Glycol 3350 17 GM PACKET PO (04:33)
[2022-06-26] MEDS: DULoxetine Hcl 30 MG Capsule PO (04:33)
[2022-06-26] MEDS: lamoTRIgine 100 MG Tablet PO ×2 (04:33→17:41)
[2022-06-26] MEDS: Nystatin Powder 15gm Bottle 1 APPLIC TOPICAL ×3 (04:34→20:05)
--- NOTE | 2022-06-26 04:39 | NURSING ---
Pt requested pain medication at this time and wanted morning meds at this time.
[2022-06-26 06:26] LABS: Bedside Glucose 121 mg/dL (74-106)
[2022-06-26 07:09] VITALS: O2SAT 95
[2022-06-26 07:29] LABS: Absolute Lymphocyte Count 1.47 X10^3/uL (0.83-4.51); Absolute Neutrophil Count 6.1 X10^3/uL (2.0-7.7); Basophil# 0.08 X10^3/uL; Basophil% 0.9 % (0-1); Eosinophil# 0.22 X10^3/uL; Eosinophils% 2.6 % (0-5); Hematocrit 37.7 % (37-47); Hemoglobin 12.1 g/dL (12.0-15.0); Lymphocyte # 1.47 X10^3/ul (0.83-4.51); Lymphocyte % 17.3 % (19-41); Mean Corp Hgb Conc 32.1 g/dL (32-36); Mean Corpuscular Hgb 31.8 pg (27.0-32.0); Mean Platelet Vol. 9.4 fl (6.2-12.0); Monocyte# 0.55 X10^3/uL; Monocyte% 6.5 % (0-10); NRBC Flagged by Analyzer 0 % (0-5); Platelet Count 355 K/mm3 (150-450); RBC Distribution Width SD 50.7 fl (35.1-43.9); Red Blood Count 3.81 M/mm3 (4.2-5.4); White Blood Count 8.5 K/mm3 (4.4-11.0)
[2022-06-26 07:50] LABS: Anion Gap 8 (5-15); BUN 36 mg/dL (7-18); BUN/Creat Ratio 38.9 RATIO (10-20); Calcium,Total 9.1 mg/dL (8.5-10.1); Chloride 106 mmol/L (98-107); Creatinine, Serum 0.92 mg/dL (0.55-1.02); EST Glomerular Filtration Rate 62 mL/min (>60); Est Glom Filt Rate - Afr Amer 74 mL/min (>60); Estimated Creatinine Clearance 45.06 ml/min; Glucose 137 mg/dL (74-106); Potassium 4.6 mmol/L (3.5-5.1); Sodium Level 137 mmol/L (136-145)
[2022-06-26] MEDS: dilTIAZem CD 120 MG Capsule PO ×2 (08:13→20:07)
[2022-06-26] MEDS: Potassium Chloride Oral Tablet 20 MEQ PO ×2 (08:13→17:41)
[2022-06-26] MEDS: Aspirin E.C. 81 MG Tablet PO (08:13)
[2022-06-26 08:18] VITALS: BP 100/56; PULSE 77
[2022-06-26 14:16] VITALS: BP 89/43; PULSE 89; RESP 18; TEMP 36.3; O2SAT 97
--- NOTE | 2022-06-26 14:17 | NURSING ---
Pt BP 89/43 Pulse 89 pt Denies S&S at this time. Lasix held d/t low BP will recheck pt bp. Call light within reach.
[2022-06-26 15:16] VITALS: BP 99/52; PULSE 60; RESP 16; TEMP 36.4; O2SAT 98
[2022-06-26] MEDS: Tamsulosin HCl 0.4 MG Capsule PO (17:41)
[2022-06-26 20:00] VITALS: PULSE 99; RESP 16; O2SAT 92
[2022-06-26] MEDS: MELATONIN 10 MG TABLET PO (20:08)
[2022-06-27 06:26] LABS: Bedside Glucose 107 mg/dL (74-106)
[2022-06-27] MEDS: Furosemide 40 MG Tablet PO ×2 (06:33→16:58)
[2022-06-27] MEDS: DULoxetine Hcl 30 MG Capsule PO (06:33)
[2022-06-27] MEDS: lamoTRIgine 100 MG Tablet PO ×2 (06:33→16:59)
[2022-06-27] MEDS: Polyethylene Glycol 3350 17 GM PACKET PO (06:33)
[2022-06-27] MEDS: Senna/Docusate Sodium 1 Tablet PO ×2 (06:34→16:59)
[2022-06-27] MEDS: Acetaminophen 500 MG Tablet 1000 MG PO ×3 (06:34→19:45)
[2022-06-27] MEDS: Nystatin Powder 15gm Bottle 1 APPLIC TOPICAL ×3 (06:41→19:47)
[2022-06-27] MEDS: Potassium Chloride Oral Tablet 20 MEQ PO ×2 (07:58→16:58)
[2022-06-27] MEDS: Aspirin E.C. 81 MG Tablet PO (07:58)
[2022-06-27 08:40] VITALS: PULSE 103; RESP 16; O2SAT 97
[2022-06-27 13:41] VITALS: BP 91/47; PULSE 94; RESP 17; TEMP 36.4; O2SAT 96
[2022-06-27 16:49] VITALS: BP 113/56; PULSE 85
[2022-06-27] MEDS: Tamsulosin HCl 0.4 MG Capsule PO (16:59)
[2022-06-27] MEDS: MELATONIN 10 MG TABLET PO (19:45)
[2022-06-27] MEDS: dilTIAZem CD 120 MG Capsule PO (19:47)
[2022-06-27] MEDS: Lisinopril 20 MG Tablet PO (19:47)
--- NOTE | 2022-06-28 02:38 | PCA ---
assisted pt to bathroom, pt then stated cant sleep asked for sleeping pill had her nurse go talk to her
[2022-06-28] MEDS: Polyethylene Glycol 3350 17 GM PACKET PO (05:57)
[2022-06-28] MEDS: DULoxetine Hcl 30 MG Capsule PO (05:57)
[2022-06-28] MEDS: Acetaminophen 500 MG Tablet 1000 MG PO ×3 (05:58→20:52)
[2022-06-28] MEDS: Nystatin Powder 15gm Bottle 1 APPLIC TOPICAL ×3 (05:58→20:51)
[2022-06-28] MEDS: lamoTRIgine 100 MG Tablet PO ×2 (05:58→17:47)
[2022-06-28] MEDS: Furosemide 40 MG Tablet PO ×2 (05:58→14:11)
[2022-06-28] MEDS: Senna/Docusate Sodium 1 Tablet PO ×2 (05:58→17:47)
[2022-06-28 06:30] LABS: Bedside Glucose 123 mg/dL (74-106)
[2022-06-28] MEDS: Aspirin E.C. 81 MG Tablet PO (08:31)
[2022-06-28] MEDS: Potassium Chloride Oral Tablet 20 MEQ PO ×2 (08:32→17:47)
[2022-06-28 13:38] VITALS: BP 130/61; PULSE 76; RESP 16; TEMP -13.6; TEMP 7.5; O2SAT 93
[2022-06-28] MEDS: Tamsulosin HCl 0.4 MG Capsule PO (17:47)
[2022-06-28 19:57] VITALS: PULSE 76; RESP 14; O2SAT 95
[2022-06-28] MEDS: MELATONIN 10 MG TABLET PO (20:52)
[2022-06-28] MEDS: dilTIAZem CD 120 MG Capsule PO (20:52)
[2022-06-28] MEDS: Lisinopril 20 MG Tablet PO (20:52)
[2022-06-28 20:59] VITALS: BP 144/61; PULSE 88; RESP 16
[2022-06-29] MEDS: Nystatin Powder 15gm Bottle 1 APPLIC TOPICAL ×3 (05:44→21:00)
[2022-06-29] MEDS: Furosemide 40 MG Tablet PO ×2 (05:45→12:38)
[2022-06-29] MEDS: Acetaminophen 500 MG Tablet 1000 MG PO ×3 (05:45→21:00)
[2022-06-29] MEDS: Senna/Docusate Sodium 1 Tablet PO ×2 (05:45→17:13)
[2022-06-29] MEDS: lamoTRIgine 100 MG Tablet PO ×2 (05:45→17:13)
[2022-06-29] MEDS: DULoxetine Hcl 30 MG Capsule PO (05:45)
[2022-06-29] MEDS: Polyethylene Glycol 3350 17 GM PACKET PO (05:45)
[2022-06-29 05:53] VITALS: BP 102/58; PULSE 83; RESP 16
[2022-06-29 06:50] LABS: Bedside Glucose 125 mg/dL (74-106)
[2022-06-29 07:59] VITALS: BP 104/42; PULSE 68
[2022-06-29] MEDS: dilTIAZem CD 120 MG Capsule PO ×2 (08:01→20:59)
[2022-06-29] MEDS: Aspirin E.C. 81 MG Tablet PO (08:02)
[2022-06-29] MEDS: Potassium Chloride Oral Tablet 20 MEQ PO ×2 (08:02→17:13)
[2022-06-29 08:38] VITALS: PULSE 58
--- NOTE | 2022-06-29 12:55 | CASEMGMT ---
Addendum entered by Char Sosa 06/29/22 15:58: Added ST to order Addendum entered by Char Sosa 06/29/22 15:47: Received a return call from agreeable to setting DC. prefers DC 07/[address] [facility]. WILMAN spoke with pt. Pt agreeable. IDT recommending PT/OT and FWW. Phoned referral to [facility] PT/OT. Sent referral to [facility] via [facility] for FWW. Plan: DC home with 07/05, [facility] PT/OT, FWW LULY Cee Original Note: Social Work Pt requesting to set DC date. SW spoke with IDT and IDT agreeable for DC, if is agreeable. SW left voicemail with to discuss DC plans. Will continue to follow. LULY Cee
[2022-06-29 14:58] VITALS: BP 128/66; PULSE 79; RESP 17; TEMP 36.1; O2SAT 96
[2022-06-29] MEDS: Tamsulosin HCl 0.4 MG Capsule PO (17:13)
--- NOTE | 2022-06-29 18:59 | DS.PCM_ITS ---
Providers Date of Admission: 06/11/22 Primary Care Physician: Dr. Nahomy Bettencourt MD Reason For Visit: CHF,A-FIB WITH RVR Diagnosis Discharge Diagnosis (1) Debility: Status: Acute Code(s): R53.81 - Other malaise (2) Atrial fibrillation with rapid ventricular response: Status: Acute Code(s): I48.91 - Unspecified atrial fibrillation (3) Acute systolic congestive heart failure: Status: Acute Code(s): I50.21 - Acute systolic (congestive) heart failure (4) Diabetic neuropathy: Status: Acute Code(s): E11.40 - Type 2 diabetes mellitus with diabetic neuropathy, unspecified (5) Seizure disorder: Status: Acute Code(s): G40.909 - Epilepsy, unspecified, not intractable, without status epilepticus (6) Hypertension: Status: Chronic Code(s): I10 - Essential (primary) hypertension (7) Chronic constipation: Status: Chronic Code(s): K59.09 - Other constipation (8) Depression: Status: Acute Code(s): F32.A - Depression, unspecified (9) Anxiety: Status: Acute Code(s): F41.9 - Anxiety disorder, unspecified Plan 81 year old female with below past medical history hospitalized for acute systolic congestive heart failure, complicated by atrial fibrillation with rapid ventricular response, admitted to TCU with debility, here for rehabilitation, strengthening, prior to discharge home with . * Debility - PT/OT. * Pain - Tylenol 1000mg q8, Oxycodone 5mg q4h prn pain (4-10). * Bowel - Miralax 17gm daily, senna/colace 1 tablet bid. * Adult immunization - Administer pneumonia vaccine, covid19 vaccine, flu vaccine as appropriate. * DVT prophylaxis - hold, fall risk with seizures. * Atrial fibrillation - Diltiazem cd 120mg q12h, aspirin 81mg daily, no anticoagulation due to fall risk with seizures. * Anxiety - Clonazepam 0.5mg qhs, stable chronic intermediate accountant use, GDR not recommended. * Depression - Duloxetine 30mg daily, stable chronic halfway use, GDR not recommended. * Acute systolic congestive heart failure EF 35% - Lisinopril 20mg qhs, Furose mide 40mg bidlx. Consider carvedilol, Entresto, SGLT2i, spironolactone. * Seizure disorder - Lamictal 75mg bid. * Coronary artery disease - Lisinopril 20mg qhs, NTG .4mg sl q5m prn. * Tinea Corporis - Nystatin powder topical tid. * Hypokalemia - KCL 20meq bidcm. Medications at Discharge Home Medications lisinopril 20 mg tablet 20 mg PO QHS BLOOD PRESSURE 11/21/14 duloxetine 30 mg capsule,delayed release 30 mg PO DAILY NEUROPATHY 09/22/20 aspirin 81 mg tablet,delayed release 81 mg PO DAILY HEART HEALTH 06/09/22 linaclotide 145 mcg capsule (Linzess) 145 mcg PO DAILY PRN Constipation 06/09/22 acetaminophen 500 mg tablet 1,000 mg PO Q8 pain 06/11/22 nitroglycerin 0.4 mg sublingual tablet 0.4 mg sublingual Q5M PRN Cardiac/Chest Pain #0 tabs 06/11/22 diltiazem HCl 120 mg capsule,extended release 24 hr 120 mg PO Q12 Check with primary doctor 30 days #60 caps 06/29/22 furosemide 40 mg tablet 40 mg PO BIDLX Diuretic 30 days #60 tabs 06/29/22 lamotrigine 100 mg tablet 100 mg PO BID 30 days #60 tabs 06/29/22 melatonin 10 mg sublingual tablet 10 mg PO QHS #0 tabs 06/29/22 potassium chloride 20 mEq tablet,extended release(part/cryst) (Klor-Con M) 20 meq PO BIDCM Supplement 30 days #60 tabs 06/29/22 tamsulosin 0.4 mg capsule 0.4 mg PO DAILY@1730 30 days #30 caps 06/29/22 Hospital Course Operations None Procedures None Summary of Care Provided Minutes Spent on Discharge: 35 Hospital Course: 81 year old female with below past medical history hospitalized for acute systolic congestive heart failure, complicated by atrial fibrillation with rapid ventricular response, admitted to TCU with debility, here for rehabilitation, strengthening, prior to discharge home with . 06/17/2022 CTA chest negative pulmonary embolism, but showed bibasilar infi ltrates, treated with Levaquin x 7 days. Discharge home with 07/05/2021, [facility] PT/OT/ST, Front wheeled walker. Physical Exam Const alert General Appearance: cooperative HEENT normocephalic Eyes PERRL and EOMs intact bilaterally Neck supple, no JVD and no carotid bruits Resp normal respiratory effort, normal air movement and clear to auscultation bilaterally Cardio regular rate and regular rhythm GI normal to inspection, nondistended, normoactive bowel sounds, non-tender and non-distended Extremity normal capillary refill General Extremity: Negative for edema Skin no rashes or lesions noted General Skin Exam: no breakdown Psych affect normal Appearance: appropriate Weight / BMI Weight Weight: 79.889 kg Body Mass Index (BMI) 30.2 ABG / Lab / Microbiology Data Result Diagrams: 06/26/22 06:56 06/26/22 06:56 Laboratory: Laboratory Results - last 24 hr 06/29/22 06:23: POC Glucose 125 H Microbiology: Microbiology 06/24/22 19:45 Urine, Catheterized Urine Culture - Final Culture exhibits no growth. 06/17/22 19:40 Urine, Catheterized Urine Culture - Final Aerococcus urinae 06/15/22 06:25 Nasal Secretion SARS-CoV-2 Antigen (Rapid) - Final 06/13/22 05:10 Nasal Secretion SARS-CoV-2 Antigen (Rapid) - Final D/C Instructions Discharge Diet: No restrictions Discharge Activity: Return to Normal Activity, May Shower and Use Walker Weight Bearing Status: Weight bearing as tolerated Call your doctor if you observe: Fever of 101 or Higher, Inability to urinate, Inability to have a bowel movement, Shortness of breath, Dizziness, Fainting spells, Swelling in the ankles, Chest pain and Uncontrolled pain Additional Instructions: Discharge home with 07/05/2021, [facility] PT/OT/ST, Front wheeled walker. Meaningful Use Info Meaningful Use Diagnoses (Choose all that apply): None applicable Discharge Plan Admission Admit Date/Time: 06/11/22 18:35 Primary Reason for Your Visit: Debility. Attending Provider: Arsenio Pride Chi Primary Care Provider: Nahomy Bettencourt Instructions Additional Instructions / Restrictions: Discharge home with 07/05/2021, [facility] PT/OT/ST, Front wheeled walker. Discharge Orders/Prescriptions Prescriptions: New tamsulosin 0.4 mg Capsule 0.4 mg PO DAILY@1730 30 Days Qty: 30 0RF lamotrigine 100 mg Tablet 100 mg PO BID 30 Days Qty: 60 0RF melatonin 10 mg Tablet, Sublingual 10 mg PO QHS Qty: 0 0RF Continued duloxetine 30 mg capsule,delayed release(DR/EC) 30 mg PO DAILY lisinopril 20 MG tablet 20 mg PO QHS aspirin 81 mg Tablet,Delayed Release (Dr/Ec) 81 mg PO DAILY Linzess 145 mcg Capsule 145 mcg PO DAILY PRN (Reason: Constipation) nitroglycerin 0.4 mg Tablet, Sublingual 0.4 mg sublingual Q5M PRN (Reason: Cardiac/Chest Pain) Qty: 0 0RF acetaminophen 500 mg tablet 1,000 mg PO Q8 furosemide 40 mg tablet 40 mg PO BIDLX 30 Days Qty: 60 0RF potassium chloride [Klor-Con M20] 20 mEq tablet,ER particles/crystals 20 meq PO BIDCM 30 Days Qty: 60 0RF diltiazem HCl 120 mg capsule,extended release 24hr 120 mg PO Q12 30 Days Qty: 60 0RF Discontinued metformin 500 mg tablet 500 mg PO BID cyanocobalamin (vitamin B-12) 1,000 mcg Tablet 1,000 mcg PO DAILY biotin 1 mg Tablet 1,000 mcg PO DAILY polyethylene glycol 3350 17 gram Powder In Packet 17 g PO DAILY PRN PRN (Reason: CONSTIPATION) Qty: 0 0RF sennosides-docusate sodium [Stool Softener-Stimulant Laxat] 8.6-50 mg Tablet 1 tab PO BID PRN PRN (Reason: CONSTIPATION) Qty: 0 0RF oxycodone 5 mg Tablet 5 mg PO Q4H PRN PRN (Reason: Pain Score 4-10) 1 Days Qty: 4 0RF clonazepam 0.5 mg tablet 0.5 mg PO QHS Qty: 1 0RF metoprolol tartrate 25 mg tablet 25 mg PO BID Qty: 60 0RF nystatin [Nyamyc] 100,000 unit/gram powder 1 applic topical TID Protocol: *Topical Application Instructions APPLICATION INSTRUCTIONS: apply to abdominal folds lamotrigine 25 mg tablet 75 mg PO BID Referrals / Follow Up: Nahomy Bettencourt MD [Primary Care Provider] - In 1 Week Disposition Disposition (needs filled in before D/C Order can be placed): Home Health Service
[2022-06-29] MEDS: MELATONIN 10 MG TABLET PO (21:00)
[2022-06-29] MEDS: Lisinopril 20 MG Tablet PO (21:00)
[2022-06-30] MEDS: oxyCODONE 5 MG Tablet PO (03:15)
[2022-06-30] MEDS: DULoxetine Hcl 30 MG Capsule PO (05:27)
[2022-06-30] MEDS: Acetaminophen 500 MG Tablet 1000 MG PO ×3 (05:27→22:12)
[2022-06-30] MEDS: Polyethylene Glycol 3350 17 GM PACKET PO (05:27)
[2022-06-30] MEDS: lamoTRIgine 100 MG Tablet PO ×2 (05:27→17:19)
[2022-06-30] MEDS: Furosemide 40 MG Tablet PO ×2 (05:27→14:00)
[2022-06-30] MEDS: Senna/Docusate Sodium 1 Tablet PO ×2 (05:28→17:19)
[2022-06-30] MEDS: Nystatin Powder 15gm Bottle 1 APPLIC TOPICAL ×3 (05:28→22:17)
[2022-06-30 06:40] LABS: Bedside Glucose 121 mg/dL (74-106)
[2022-06-30] MEDS: dilTIAZem CD 120 MG Capsule PO ×2 (08:49→22:13)
[2022-06-30] MEDS: Aspirin E.C. 81 MG Tablet PO (08:49)
[2022-06-30] MEDS: Potassium Chloride Oral Tablet 20 MEQ PO ×2 (08:49→17:19)
[2022-06-30 16:00] VITALS: BP 114/57; PULSE 79; RESP 16; TEMP 35.9; O2SAT 98
[2022-06-30] MEDS: Tamsulosin HCl 0.4 MG Capsule PO (17:19)
[2022-06-30] MEDS: MELATONIN 10 MG TABLET PO (22:13)
[2022-07-01 06:27] VITALS: BP 100/52; PULSE 70
[2022-07-01] MEDS: Nystatin Powder 15gm Bottle 1 APPLIC TOPICAL ×3 (06:29→21:13)
[2022-07-01] MEDS: Furosemide 40 MG Tablet PO ×2 (06:29→14:07)
[2022-07-01] MEDS: Acetaminophen 500 MG Tablet 1000 MG PO ×3 (06:29→21:13)
[2022-07-01] MEDS: Polyethylene Glycol 3350 17 GM PACKET PO (06:29)
[2022-07-01] MEDS: lamoTRIgine 100 MG Tablet PO ×2 (06:29→17:53)
[2022-07-01] MEDS: DULoxetine Hcl 30 MG Capsule PO (06:29)
[2022-07-01] MEDS: Senna/Docusate Sodium 1 Tablet PO ×2 (06:29→17:53)
[2022-07-01 06:40] LABS: Bedside Glucose 94 mg/dL (74-106)
[2022-07-01] MEDS: Aspirin E.C. 81 MG Tablet PO (08:42)
[2022-07-01] MEDS: Potassium Chloride Oral Tablet 20 MEQ PO ×2 (08:42→17:53)
[2022-07-01 08:44] VITALS: BP 91/42; PULSE 69
[2022-07-01] MEDS: Menthol/Lanolin/Calamine/Znox 113 GM Tube 1 APPLIC TOPICAL ×2 (10:50→21:16)
[2022-07-01 14:02] VITALS: BP 110/59; PULSE 67; RESP 18; TEMP 36.2; O2SAT 93
[2022-07-01] MEDS: Tamsulosin HCl 0.4 MG Capsule PO (17:53)
[2022-07-01] MEDS: MELATONIN 10 MG TABLET PO (21:13)
[2022-07-01] MEDS: dilTIAZem CD 120 MG Capsule PO (21:16)
[2022-07-01] MEDS: Lisinopril 20 MG Tablet PO (21:17)
[2022-07-02] MEDS: Polyethylene Glycol 3350 17 GM PACKET PO (04:48)
[2022-07-02] MEDS: Acetaminophen 500 MG Tablet 1000 MG PO ×3 (04:48→20:59)
[2022-07-02] MEDS: lamoTRIgine 100 MG Tablet PO ×2 (04:48→17:26)
[2022-07-02] MEDS: Furosemide 40 MG Tablet PO (04:49)
[2022-07-02] MEDS: Senna/Docusate Sodium 1 Tablet PO ×2 (04:49→17:27)
[2022-07-02] MEDS: DULoxetine Hcl 30 MG Capsule PO (04:49)
[2022-07-02] MEDS: Nystatin Powder 15gm Bottle 1 APPLIC TOPICAL ×3 (04:52→22:25)
[2022-07-02 06:41] LABS: Bedside Glucose 128 mg/dL (74-106)
[2022-07-02] MEDS: Potassium Chloride Oral Tablet 20 MEQ PO ×2 (08:16→17:27)
[2022-07-02] MEDS: Aspirin E.C. 81 MG Tablet PO (08:16)
[2022-07-02 08:19] VITALS: BP 86/45; PULSE 67
--- NOTE | 2022-07-02 08:20 | NURSING ---
Pt BP 86/45 Cardizem held at this time. Pt denies S&S of low BP. Pt given water at this time will recheck BP.
--- NOTE | 2022-07-02 09:42 | NURSING ---
BP rechecked Bp 81/33 HR 64. Pt denies S&S of low BP. Dr. Pride paged and N.O. to Discontinue fluid restriction and Lisinopril and BMP. Orders read back.
[2022-07-02 10:59] LABS: Anion Gap 8 (5-15); BUN 28 mg/dL (7-18); BUN/Creat Ratio 31.9 RATIO (10-20); Calcium,Total 9.4 mg/dL (8.5-10.1); Chloride 100 mmol/L (98-107); Creatinine, Serum 0.88 mg/dL (0.55-1.02); EST Glomerular Filtration Rate 65 mL/min (>60); Est Glom Filt Rate - Afr Amer 79 mL/min (>60); Glucose 140 mg/dL (74-106); Potassium 4.1 mmol/L (3.5-5.1); Sodium Level 132 mmol/L (136-145)
[2022-07-02] MEDS: Menthol/Lanolin/Calamine/Znox 113 GM Tube 1 APPLIC TOPICAL ×2 (11:14→22:25)
--- NOTE | 2022-07-02 13:54 | CASEMGMT ---
Social Work BIMS () and PHQ-9 () completed for MDS assessment. Char Sosa MSW PUPPY WALKER
[2022-07-02 16:00] VITALS: BP 109/79
[2022-07-02] MEDS: Tamsulosin HCl 0.4 MG Capsule PO (17:26)
[2022-07-02 17:31] VITALS: BP 97/43; PULSE 76
[2022-07-02 20:20] VITALS: PULSE 99; RESP 18; O2SAT 94
--- NOTE | 2022-07-02 20:30 | NURSING ---
Patient with chest discomfort. Call to [facility] to have EKG done. BP, P WNL, Nitrostat 0.4mg given SL. Patient had some relief. Dr. Pride notified. New orders received for Mylanta, Nitrostat 2nd dose. Stat order for Triponin level. Will continue to monitor.
[2022-07-02 20:50] VITALS: BP 106/59; PULSE 99
[2022-07-02] MEDS: Nitroglycerin (INPATIENT USE) 0.4 MG TAB.SUBL SL ×2 (20:50→21:58)
--- NOTE | 2022-07-02 20:57 | EKG12_ITS ---
Test Reason : CHEST DISCOMFORT Blood Pressure : / mmHG Vent. Rate : 106 BPM Atrial Rate : 120 BPM P-R Int : 000 ms QRS Dur : 144 ms QT Int : 372 ms P-R-T Axes : 000 -25 120 degrees QTc Int : 494 ms Atrial fibrillation Left bundle branch block Abnormal ECG When compared with ECG of 17-JUN-2022 12:18, No significant change was found Confirmed by CAITLIN LYNN, ABI ([id number]), videotape editor MAMADOU TROY ([id number]) on 07/06/2022 11:06:13 AM Referred By: SEFERINO Confirmed By:ABI TUCKER MD
[2022-07-02] MEDS: dilTIAZem CD 120 MG Capsule PO (20:58)
[2022-07-02] MEDS: MELATONIN 10 MG TABLET PO (20:59)
[2022-07-02 21:58] VITALS: BP 102/48; PULSE 78
[2022-07-02] MEDS: Mag Hydrox/Al Hydrox/Simeth 30 ML UDC PO (22:25)
[2022-07-02 22:45] LABS: Troponin-I HS 10 pg/mL (3.0-54.0)
[2022-07-02] MEDS: oxyCODONE 5 MG Tablet PO (23:46)
--- NOTE | 2022-07-02 23:52 | NURSING ---
Patient stating pain has increased in left side of chest into shoulder. Is not radiating down arm. Bp 108/55, P 98, O2 95% on 2L/min O2 via NC. Oxycodone 5mg administered at this time. Will continue to monitor.
--- NOTE | 2022-07-03 00:22 | NURSING ---
Patient stated pain is not letting up, sharp at times. Dr. Pride notified. New order to send to ED.
--- NOTE | 2022-07-03 00:23 | NURSING ---
Patient transported to ED at 00:23. Report called.
[2022-07-03 07:47] LABS: Absolute Lymphocyte Count 0.77 X10^3/uL (0.83-4.51); Absolute Neutrophil Count 15.4 X10^3/uL (2.0-7.7); Basophil# 0.03 X10^3/uL; Basophil% 0.2 % (0-1); Eosinophil# 0.02 X10^3/uL; Eosinophils% 0.1 % (0-5); Hematocrit 37.3 % (37-47); Hemoglobin 11.6 g/dL (12.0-15.0); Lymphocyte # 0.77 X10^3/ul (0.83-4.51); Lymphocyte % 4.4 % (19-41); Mean Corp Hgb Conc 31.1 g/dL (32-36); Mean Corpuscular Hgb 30.9 pg (27.0-32.0); Mean Corpuscular Volume 99.5 fL (81-99); Mean Platelet Vol. 9.4 fl (6.2-12.0); Monocyte# 1.04 X10^3/uL; NRBC Flagged by Analyzer 0 % (0-5); Neutrophil # 15.36 X10^3/uL (2.7-7.7); Neutrophil % 88.6 % (47-70); Platelet Count 286 K/mm3 (150-450); RBC Distribution Width CV 14.1 % (11.6-14.6); RBC Distribution Width SD 51.5 fl (35.1-43.9); Red Blood Count 3.75 M/mm3 (4.2-5.4); White Blood Count 17.3 K/mm3 (4.4-11.0)
[2022-07-03 07:58] LABS: Anion Gap 7 (5-15); BUN 24 mg/dL (7-18); BUN/Creat Ratio 32.2 RATIO (10-20); Calcium,Total 8.8 mg/dL (8.5-10.1); Chloride 106 mmol/L (98-107); Creatinine, Serum 0.74 mg/dL (0.55-1.02); EST Glomerular Filtration Rate 79 mL/min (>60); Est Glom Filt Rate - Afr Amer 96 mL/min (>60); Estimated Creatinine Clearance 41.45 ml/min; Glucose 159 mg/dL (74-106); Potassium 5.6 mmol/L (3.5-5.1); Sodium Level 134 mmol/L (136-145)
[2022-07-03] MEDS: lamoTRIgine 100 MG Tablet PO ×2 (09:17→17:19)
[2022-07-03] MEDS: Furosemide 40 MG Tablet PO ×2 (09:17→13:45)
[2022-07-03] MEDS: DULoxetine Hcl 30 MG Capsule PO (09:17)
[2022-07-03] MEDS: Polyethylene Glycol 3350 17 GM PACKET PO (09:17)
[2022-07-03] MEDS: dilTIAZem CD 120 MG Capsule PO (09:18)
[2022-07-03] MEDS: Senna/Docusate Sodium 1 Tablet PO ×2 (09:18→17:19)
[2022-07-03] MEDS: Acetaminophen 500 MG Tablet 1000 MG PO ×3 (09:18→20:25)
[2022-07-03] MEDS: Aspirin E.C. 81 MG Tablet PO (09:19)
[2022-07-03] MEDS: Potassium Chloride Oral Tablet 20 MEQ PO (09:19)
[2022-07-03] MEDS: Nystatin Powder 15gm Bottle 1 APPLIC TOPICAL ×3 (09:30→20:27)
[2022-07-03 10:00] VITALS: O2SAT 95
--- NOTE | 2022-07-03 10:18 | NURSING ---
Return from ED at 0815. ED diagnose with PN and gave zosyn and vancomycin x1. IV to right forearm. ED also administered pain medication and patient on o2 at 3L. Spo2 95% and lungs are clear. Pt is alert but drowsy and reports feeling better but still has feeling like needs to burp. Will continue to monitor.
[2022-07-03] MEDS: levoFLOXacin IV 750 MG/150 ML BAG 100 MG IV (11:43)
[2022-07-03] MEDS: 0.9% Saline Lock 10 ML Syringe IV (11:57)
[2022-07-03 12:10] VITALS: O2SAT 96
[2022-07-03] MEDS: Sodium Polystyrene Sulfonate 15 GM/60 ML UDC 30 GM PO (12:15)
[2022-07-03] MEDS: Menthol/Lanolin/Calamine/Znox 113 GM Tube 1 APPLIC TOPICAL ×2 (12:20→20:29)
[2022-07-03 15:51] VITALS: BP 87/44; PULSE 59; RESP 14; TEMP 36.6; O2SAT 96
[2022-07-03] MEDS: Tamsulosin HCl 0.4 MG Capsule PO (17:19)
[2022-07-03 20:20] VITALS: BP 82/34; PULSE 69; RESP 16; O2SAT 97
[2022-07-03] MEDS: MELATONIN 10 MG TABLET PO (20:29)
[2022-07-03 20:33] VITALS: BP 92/44; PULSE 75
[2022-07-04 00:15] VITALS: BP 96/45; PULSE 89
[2022-07-04] MEDS: dilTIAZem CD 120 MG Capsule PO ×2 (00:20→21:27)
[2022-07-04 05:55] LABS: Anion Gap 7 (5-15); BUN 19 mg/dL (7-18); BUN/Creat Ratio 30.4 RATIO (10-20); Calcium,Total 8.8 mg/dL (8.5-10.1); Chloride 102 mmol/L (98-107); Creatinine, Serum 0.63 mg/dL (0.55-1.02); EST Glomerular Filtration Rate 97 mL/min (>60); Est Glom Filt Rate - Afr Amer 117 mL/min (>60); Estimated Creatinine Clearance 41.45 ml/min; Glucose 128 mg/dL (74-106); Sodium Level 133 mmol/L (136-145)
[2022-07-04] MEDS: Furosemide 40 MG Tablet PO ×2 (06:21→13:11)
[2022-07-04] MEDS: DULoxetine Hcl 30 MG Capsule PO (06:21)
[2022-07-04] MEDS: lamoTRIgine 100 MG Tablet PO ×2 (06:21→17:16)
[2022-07-04] MEDS: Senna/Docusate Sodium 1 Tablet PO ×2 (06:21→17:16)
[2022-07-04] MEDS: Nystatin Powder 15gm Bottle 1 APPLIC TOPICAL ×3 (06:21→21:30)
[2022-07-04] MEDS: Polyethylene Glycol 3350 17 GM PACKET PO (06:21)
[2022-07-04] MEDS: Acetaminophen 500 MG Tablet 1000 MG PO ×3 (06:21→21:26)
[2022-07-04 06:25] VITALS: BP 101/41; PULSE 54; O2SAT 94
[2022-07-04 06:41] LABS: Bedside Glucose 132 mg/dL (74-106)
[2022-07-04] MEDS: levoFLOXacin IV 750 MG/150 ML BAG 100 MG IV (09:17)
[2022-07-04] MEDS: Aspirin E.C. 81 MG Tablet PO (09:17)
[2022-07-04] MEDS: 0.9% Saline Lock 10 ML Syringe IV (09:17)
[2022-07-04] MEDS: Menthol/Lanolin/Calamine/Znox 113 GM Tube 1 APPLIC TOPICAL ×2 (09:18→21:31)
[2022-07-04 09:19] VITALS: BP 83/52; PULSE 96
--- NOTE | 2022-07-04 09:59 | NURSING ---
Pt c/o pain in RFA during IV antibiotic administration. Area is pink and very minimal edema noted. IV antibiotics stopped and saline lock pulled per request. New saline lock started to LFA and antibiotic therapy resumed. No further c/o pain or discomfort noted at this time.
[2022-07-04 12:16] VITALS: BP 93/60; PULSE 57; RESP 18; TEMP 36.6; O2SAT 95
[2022-07-04] MEDS: Calcium Carbonate 500 MG Tablet PO (13:15)
[2022-07-04] MEDS: Tamsulosin HCl 0.4 MG Capsule PO (17:16)
[2022-07-04] MEDS: MELATONIN 10 MG TABLET PO (21:26)
[2022-07-04 21:45] VITALS: O2SAT 97
--- NOTE | 2022-07-04 23:46 | EKG12_ITS ---
Test Reason : CP Blood Pressure : / mmHG Vent. Rate : 081 BPM Atrial Rate : 375 BPM P-R Int : 000 ms QRS Dur : 154 ms QT Int : 410 ms P-R-T Axes : 000 -03 119 degrees QTc Int : 476 ms Atrial fibrillation with premature ventricular or aberrantly conducted complexes Left bundle branch block Abnormal ECG When compared with ECG of 03-JUL-2022 00:37, MANUAL COMPARISON REQUIRED, DATA IS UNCONFIRMED Confirmed by CAITLIN LYNN, ABI ([id number]), legal editor MAMADOU TROY ([id number]) on 07/06/2022 11:04:04 AM Referred By: SEFERINO Confirmed By:ABI TUCKER MD
[2022-07-04] MEDS: oxyCODONE 5 MG Tablet PO (23:51)
[2022-07-05] MEDS: Polyethylene Glycol 3350 17 GM PACKET PO (05:38)
[2022-07-05] MEDS: Acetaminophen 500 MG Tablet 1000 MG PO (05:38)
[2022-07-05] MEDS: lamoTRIgine 100 MG Tablet PO (05:40)
[2022-07-05] MEDS: DULoxetine Hcl 30 MG Capsule PO (05:40)
[2022-07-05] MEDS: Nystatin Powder 15gm Bottle 1 APPLIC TOPICAL (05:41)
[2022-07-05] MEDS: Senna/Docusate Sodium 1 Tablet PO (05:44)
[2022-07-05] MEDS: 0.9% Saline Lock 10 ML Syringe IV ×2 (05:49→10:41)
[2022-07-05 05:51] VITALS: BP 94/59; PULSE 84
[2022-07-05 06:35] LABS: Bedside Glucose 121 mg/dL (74-106)
[2022-07-05 07:10] VITALS: O2SAT 95
--- NOTE | 2022-07-05 07:58 | CPS ---
RN ASKED FOR RESPIRATORY TO EVALUATE FOR 02 USE, AFTER 5 MINUTES ON RA PATIENT WAS AT 90%, MINOR DESATURATIONS, PLACED PT BACK ON 1LNC.
[2022-07-05 08:17] VITALS: BP 113/56; PULSE 69; O2SAT 93
[2022-07-05] MEDS: dilTIAZem CD 120 MG Capsule PO (08:18)
[2022-07-05] MEDS: Aspirin E.C. 81 MG Tablet PO (08:18)
[2022-07-05] MEDS: Furosemide 40 MG Tablet PO (08:19)
[2022-07-05 10:00] VITALS: PULSE 80; RESP 16; O2SAT 93
--- NOTE | 2022-07-05 10:29 | CASEMGMT ---
Social Work Pt is still cleared for discharge today. did not cancel DC. SW spoke with to confirm. Staff made pt aware. Char Sosa, CARRIAGE OPERATOR VULCANIZING MACHINE OPERATOR
[2022-07-05] MEDS: levoFLOXacin IV 750 MG/150 ML BAG 100 MG IV (10:42)
[2022-07-05 15:12] VITALS: BP 117/65; PULSE 84; RESP 18; TEMP 36.5; O2SAT 94
--- NOTE | 2022-07-05 15:15 | NURSING ---
Patient on 1L NC this AM, sats 93-94%. 02 removed, when checked later sat was 93% on RA. During ambulation sat still 93% on RA, 94% at rest. She denies shortness of breath. Discharge instructions reviewed with patient, , and son at bedside.
== END 2022-07-05 14:30 | disposition home health service (06) | DRG 291 ==
PROVIDERS: Admitting Provider Family Medicine Geriatric Medicine; PCP Family Medicine; Visit Provider Family Medicine Geriatric Medicine
DX: I11.0 Hypertensive heart disease with heart failure (principal); I50.21 Acute systolic (congestive) heart failure; J18.9 Pneumonia, unspecified organism; E11.42 Type 2 diabetes mellitus with diabetic polyneuropathy; E87.6 Hypokalemia; F32.A Depression, unspecified; B35.4 Tinea corporis; I48.0 Paroxysmal atrial fibrillation; G40.909 Epilepsy, unspecified, not intractable, without status epilepticus; F41.9 Anxiety disorder, unspecified; I25.10 Atherosclerotic heart disease of native coronary artery without angina pectoris; K59.09 Other constipation; Z87.891 Personal history of nicotine dependence; Z79.84 Long term (current) use of oral hypoglycemic drugs; Z79.82 Long term (current) use of aspirin; Z79.899 Other long term (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
CPT/HCPCS: 36415; 80048; 81001; 82962; 83880; 84484; 85025; 87077; 87086; 87088; 87426; 87811; 92507; 92508; 92523; 93005; 96125; 97110; 97116; 97162; 97166; 97530; 97535; 97802; J7050; A4216; J1940

== ENCOUNTER 2022-06-17 12:08 | Emergency (ER) | payer MEDICARE, OTHER, SELFPAY ==
[2022-06-17] VITALS (15 sets, daily range): BP systolic 100–121; BP diastolic 54–102; PULSE 89–111; RESP 2–36; TEMP 36.6–36.9; O2SAT 87–95; BMI 29.9
--- NOTE | 2022-06-17 12:21 | EKG12_ITS ---
Test Reason : CP Blood Pressure : / mmHG Vent. Rate : 086 BPM Atrial Rate : 082 BPM P-R Int : 000 ms QRS Dur : 142 ms QT Int : 404 ms P-R-T Axes : 000 -23 116 degrees QTc Int : 483 ms Atrial fibrillation Left bundle branch block Abnormal ECG Confirmed by AIDE LYNN, MOOK ([id number]), order editor MAMADOU TROY ([id number]) on 06/21/2022 12:34:59 PM Referred By: AR Confirmed By:JOLEEN NOBLE MD
--- NOTE | 2022-06-17 12:21 | RAD_ITS ---
STUDY: X-RAY CHEST REASON FOR EXAM: Female, 81 years old. Chest pain TECHNIQUE: Single AP portable view of the chest. COMPARISON: Comparison is made with prior study dated 06/09/2022. FINDINGS: EKG electrodes are seen. Mild degree of increased markings at the lung bases likely more prominent on the left side suggestive bibasilar atelectasis. There is blunting of the left costophrenic angle. The vascular congestion has cleared. There is mild cardiac enlargement. Normal mediastinum and saad. Normal visualized pulmonary arteries. There is atherosclerotic calcification of the aortic arch with tortuosity. There are diffuse degenerative changes of the visualized thoracic spine. Normal visualized ribs, clavicles, and shoulders. There is no demonstrated abnormality of the visualized soft tissue structures of the upper abdomen. RAD/Chest 1 View (Portable) IMPRESSION: Mild degree of increased markings at the lung bases slightly more prominent at the left lung base with blunting of the left costophrenic angle. Radiographic follow-up is recommended. Electronically Signed: Amol Hannon MD at 13:02 EST ,
--- NOTE | 2022-06-17 12:22 | ED.VIS.CHEST ---
HPI History of Present Illness Chief Complaint: Chest Pain Narrative Narrative: 81-year-old female past medical history of hypertension, atrial fibrillation, presents from TCU after admission for abdominal pain. She states that approximately an hour ago, after she got back from exercising she began having left-sided chest pain. She states there is something wrong and she believes that it is from her heart. She describes pain in the left side of her chest. No nausea or vomiting, no exacerbating or alleviating factors. She has multiple medical problems ranging from her diabetes and diabetic neuropathy to A-fib but states that she has not on a blood thinner that she is aware of. [facility] Medical History Acute postoperative pain of right knee Ambulates with cane Arthritis Atherosclerotic heart disease of [place] coronary artery without angina pectoris Back pain Cardiology follow-up encounter Cellulitis of chest wall Chronic constipation Chronic cough Debility Depression Diabetes Diabetes mellitus Diabetic polyneuropathy Dietary restriction DM2 (diabetes mellitus, type 2) Epilepsy Essential hypertension Former smoker H/O cardiac murmur History of atrial fibrillation History of echocardiogram History of left heart catheterization (LHC) (~06/02/22) History of pain when walking History of steroid therapy History of stress test Hx of back injury Hx of vaginal delivery Hypertension Hypertension Inability to ambulate due to knee Injury of back Injury of head and neck Nephrolithiasis Neuropathy Neuropathy, diabetic Paroxysmal atrial fibrillation Vitamin D deficiency Wears glasses Home Medications lisinopril 20 mg tablet 20 mg PO QHS BLOOD PRESSURE 11/21/14 [History Last Taken 06/08/22] metformin 500 mg tablet 500 mg PO BID DIABETES 09/13/18 [History Last Taken 06/09/22] duloxetine 30 mg capsule,delayed release 30 mg PO DAILY NEUROPATHY 09/22/20 [History Last Taken 06/09/22] lamotrigine 25 mg tablet 75 mg PO BID SEIZURES 05/18/22 [History Last Taken 06/09/22] cyanocobalamin (vitamin B-12) 1,000 mcg tablet 1,000 mcg PO DAILY SUPPLEMENT 05/31/22 [History Last Taken 06/09/22] aspirin 81 mg tablet,delayed release 81 mg PO DAILY HEART HEALTH 06/09/22 [History Last Taken 06/09/22] biotin 1 mg tablet 1,000 mcg PO DAILY SUPPLEMENT 06/09/22 [History Last Taken 06/09/22] linaclotide 145 mcg capsule (Linzess) 145 mcg PO DAILY PRN Constipation 06/09/22 [History Last Taken Unknown] acetaminophen 500 mg tablet 1,000 mg PO Q8 pain 06/11/22 [History Last Taken Unknown] clonazepam 0.5 mg tablet 0.5 mg PO QHS SEIZURES #1 TAB 06/11/22 [Rx Last Taken Unknown] diltiazem HCl 120 mg capsule,extended release 24 hr 120 mg PO Q12 Check with primary doctor 06/11/22 [History Last Taken Unknown] furosemide 40 mg tablet 40 mg PO BIDLX Diuretic 06/11/22 [History Last Taken Unknown] metoprolol tartrate 25 mg tablet 25 mg PO BID #60 tabs 06/11/22 [Rx Last Taken Unknown] nitroglycerin 0.4 mg sublingual tablet 0.4 mg sublingual Q5M PRN Cardiac/Chest Pain #0 tabs 06/11/22 [Rx Last Taken Unknown] nystatin 100,000 unit/gram topical powder (Nyamyc) 1 applic topical TID Redness 06/11/22 [History Last Taken Unknown] oxycodone 5 mg tablet 5 mg PO Q4H PRN PRN Pain Score 4-10 1 day #4 tabs 06/11/22 [Rx Last Taken Unknown] polyethylene glycol 3350 17 gram oral powder packet 17 g PO DAILY PRN PRN CONSTIPATION #0 ea 06/11/22 [Rx Last Taken Unknown] potassium chloride 20 mEq tablet,extended release(part/cryst) (Klor-Con M) 20 meq PO BIDCM Supplement 06/11/22 [History Last Taken Unknown] sennosides 8.6 mg-docusate sodium 50 mg tablet (Stool Softener-Stimulant Laxative) 1 tab PO BID PRN PRN CONSTIPATION #0 tabs 06/11/22 [Rx Last Taken Unknown] Allergy/AdvReac Type Severity Reaction Status Date / Time bacitracin Allergy Rash Verified 06/09/22 12:49 [From Neosporin ([id number])] bacitracin zinc Allergy Rash Verified 06/09/22 12:49 [From Neosporin ([id number]-[id number])] neomycin sulfate Allergy Rash Verified 06/09/22 12:49 [From Neosporin ([id number]-[id number])] polymyxin B Allergy Rash Verified 06/09/22 12:49 [From Neosporin ([id number])] sulfamethoxazole Allergy Itching Verified 06/09/22 12:49 [From Bactrim] trimethoprim [From Bactrim] Allergy Itching Verified 06/09/22 12:49 codeine AdvReac Nausea Verified 06/09/22 12:49 milk AdvReac Nausea/Vom/ Verified 06/09/22 12:49 Diarrhea Family History Father No problems noted. Mother No problems noted. Surgical History Amputated toe of right foot Deviated septum History of appendectomy History of cholecystectomy History of hysterectomy History of neck surgery History of tonsillectomy History of total right knee replacement (TKR) Hx of cystoscopy Hx of fusion of cervical spine S/P total knee arthroplasty Social History household members: spouse Smoking Status: Former smoker alcohol intake: never substance use type: does not use caffeine: No what type of physical activity do you participate in: other details: physical therapy seatbelt use: always do you feel safe at home: Yes ROS ROS ED ROS Narrative Constitutional: No fever, no chills. HEENT: No sore throat. No neck pain. No loss of vision. No rhinorrhea. Cardiovascular: Left-sided chest pain. No palpitations. No pedal edema. Respiratory: No cough, no shortness of breath. Abdominal: No abdominal pain. No nausea. No vomiting. Genitourinary: No dysuria. No hematuria. Musculoskeletal: No myalgias. No arthralgias. Neurologic: No headaches. No dizziness. No lightheadedness. Skin: No rash. No change in color. Psychiatric: No depression. No anxiety. EXAM Physical Exam Narrative Exam Narrative: Afebrile. Vital signs noted. HEENT: Normocephalic. Atraumatic. PERRL, EOMI. Neck soft and supple. No point tenderness or step off. Cardiovascular: Regular rate and rhythm. No murmurs, rubs, or gallops appreciated. Respiratory: Mild tachypnea. Lungs clear to auscultation bilaterally. Gastrointestinal: Abdomen soft, nontender, with normoactive bowel sounds. No rebound or guarding. Neurological: Awake. Alert. Nonfocal, nonlateralizing. Skin: No rash. Normal color. No pallor. Musculoskeletal: No pedal edema. Full range of motion extremities. Psychiatric: Positive anxiety. Const Vital Signs: 06/17/22 12:12 06/17/22 12:18 06/17/22 12:24 Temperature 97.9 F Temperature Source Temporal Pulse Rate 99 Respiratory Rate 26 H Respiratory Effort Short of Breath Respiratory Pattern Blood Pressure 101/55 L Blood Pressure Mean 70 Pulse Ox 95 94 Oxygen Delivery Method Nasal Cannula Nasal Cannula Oxygen Flow Rate (L/min) 3 2 06/17/22 12:52 06/17/22 13:10 06/17/22 13:34 Temperature Temperature Source Pulse Rate 101 H 91 89 Respiratory Rate 30 H 23 H 27 H Respiratory Effort Respiratory Pattern Tachypnea Blood Pressure 102/54 L 118/60 Blood Pressure Mean 70 79 Pulse Ox 95 93 Oxygen Delivery Method Nasal Cannula Nasal Cannula Oxygen Flow Rate (L/min) 2 2 06/17/22 14:12 06/17/22 14:12 06/17/22 15:05 Temperature Temperature Source Pulse Rate 98 96 Respiratory Rate 30 H 2 L 24 H Respiratory Effort Respiratory Pattern Blood Pressure 108/56 L 100/79 Blood Pressure Mean 73 86 Pulse Ox 92 92 93 Oxygen Delivery Method Nasal Cannula Nasal Cannula Nasal Cannula Oxygen Flow Rate (L/min) 2 2 06/17/22 15:23 06/17/22 15:24 06/17/22 16:02 Temperature Temperature Source Pulse Rate 94 Respiratory Rate 30 H 19 H Respiratory Effort Respiratory Pattern Blood Pressure 121/102 H Blood Pressure Mean 108 Pulse Ox 87 91 90 Oxygen Delivery Method Room Air Nasal Cannula Nasal Cannula Oxygen Flow Rate (L/min) 2 2 06/17/22 16:12 06/17/22 16:15 Temperature Temperature Source Pulse Rate 98 102 H Respiratory Rate 33 H 35 H Respiratory Effort Respiratory Pattern Blood Pressure 104/59 L 113/64 Blood Pressure Mean 74 80 Pulse Ox 93 92 Oxygen Delivery Method Nasal Cannula Nasal Cannula Oxygen Flow Rate (L/min) 3 3 Heart Score History: Slightly/Non-Suspicious ECG: Normal Age: >/= 65 years Risk Factors: >/= 3 Risk Factors or History of CAD Score: 4 MDM MDM MDM Narrative Medical decision making narrative: Comprehensive work-up was pursued. In the differential diagnosis is acute coronary syndrome versus anxiety, versus musculoskeletal chest pain. Comprehensive work-up was pursued given her age of 81. EKG was obtained and interpreted by myself which demonstrates atrial fibrillation at [address] changes, no STEMI. I reviewed her laboratory work and she has slightly elevated white count of 14.2 which I think is nonspecific, hemoglobin normal at 12.4, hematocrit 40.2. BMP shows normal sodium of 139, potassium 4.6, BUN slightly elevated 27 with normal creatinine of 0.87. Glucose appropriately elevated at 128 with normal anion gap of 6. BNP slightly elevated at 126, initial high-sensitivity troponin is 8. I interpreted her chest x-ray and see no evidence of pneumothorax or pneumonia, but she does have increased markings at the bilateral bases with mild blunting of the costophrenic angle on the left. I reviewed the radiology report and agree. Patient had been placed on oxygen for comfort because of her chest pain. She had received nitroglycerin from the TCU. She was administered morphine for her pain initially. She complained of shortness of breath so she was given albuterol inhaled breathing treatment. She also received aspirin. I did obtain a CTA of her chest to rule out pulmonary embolism which is negative for pulmonary embolism but she does have the bilateral pleural effusions. Spotcheck of her pulse ox on room air was 87%. Initially, I discussed patient with the hospitalist, Dr. Tesfaye. In review of her inpatient work-up, 2 weeks ago she had cardiac catheterization with minimal narrowing of her LAD, no stenting required. Also, she had required oxygen on and off throughout her stay. Hence, it was not felt that she required inpatient for cardiac work-up or for her hypoxia. It was felt that she could be returned to the TCU. Patient still continued to complain of left-sided chest pain, but I do feel that she has been ruled out with a 2-hour troponin that has also returned at 8 for a delta troponin of 0. I am unsure as to the cause of her chest pain., But the patient's became belligerent, demanding that she receive more morphine. I explained that she had already had a dose of morphine, but he wanted her to have more. I reviewed her MAR and she does take oxycodone on her medication list. However, this was for 4 days. It was not felt that she needed readmission. I spoke with social work, who called up to the TCU and they are comfortable having the patient return given her negative rule out. She will be discharged back to the TCU in stable condition. Lab Data Attestation: I reviewed the patient's lab results. Labs: Laboratory Results - last 24 hr 06/17/22 06/17/22 06/17/22 12:15 12:15 12:15 WBC 14.2 H RBC 3.91 L Hgb 12.4 Hct 40.2 MCV 102.8 H MCH 31.7 MCHC 30.8 L RDW Std Deviation 55.2 H RDW Coeff of Robert 14.7 H Plt Count 430 MPV 9.0 Immature Gran % (Auto) 0.600 Neut % (Auto) 76.7 H Lymph % (Auto) 11.2 L [place] % (Auto) 8.2 Eos % (Auto) 2.5 Baso % (Auto) 0.8 Absolute Neuts (auto) 10.9 H Absolute Lymphs (auto) 1.60 Nucleated RBC % 0 Sodium 139 Potassium 4.6 Chloride 103 Carbon Dioxide 30.0 Anion Gap 6 BUN 27 H Creatinine 0.87 Estim Creat Clear Calc 47.65 Est GFR (MDRD) Af Amer 80 Est GFR (MDRD) Non-Af 66 BUN/Creatinine Ratio 31.0 H Glucose 128 H Calcium 9.7 Troponin I High Sens 8 B-Natriuretic Peptide 126.9 H 06/17/22 14:34 WBC RBC Hgb Hct MCV MCH MCHC RDW Std Deviation RDW Coeff of Robert Plt Count MPV Immature Gran % (Auto) Neut % (Auto) Lymph % (Auto) [place] % (Auto) Eos % (Auto) Baso % (Auto) Absolute Neuts (auto) Absolute Lymphs (auto) Nucleated RBC % Sodium Potassium Chloride Carbon Dioxide Anion Gap BUN Creatinine Estim Creat Clear Calc Est GFR (MDRD) Af Amer Est GFR (MDRD) Non-Af BUN/Creatinine Ratio Glucose Calcium Troponin I High Sens 8 B-Natriuretic Peptide Radiography Diagnostic Testing: Clinical Impression(s) from Imaging Studies Chest X-Ray 06/17/22 12:21 IMPRESSION: Mild degree of increased markings at the lung bases slightly more prominent at the left lung base with blunting of the left costophrenic angle. Radiographic follow-up is recommended. Electronically Signed: Amol Hannon MD at 13:02 EST , Chest CTA 06/17/22 13:23 IMPRESSION: Small bilateral pleural effusions with bibasilar infiltrates. No evidence of the pulmonary embolism. Electronically Signed: Amol Hannon MD at 14:24 EST , Discharge Plan Triage Chief Complaint: Chest Pain ED Provider: Chente Georges Dx/Rx/DC Orders Clinical Impression: Chest pain, Hypoxia, Pleural effusion, bilateral, SOB (shortness of breath) Prescriptions: No Action metformin 500 mg tablet 500 mg PO BID duloxetine 30 mg capsule,delayed release(DR/EC) 30 mg PO DAILY lisinopril 20 MG tablet 20 mg PO QHS cyanocobalamin (vitamin B-12) 1,000 mcg Tablet 1,000 mcg PO DAILY aspirin 81 mg Tablet,Delayed Release (Dr/Ec) 81 mg PO DAILY biotin 1 mg Tablet 1,000 mcg PO DAILY Linzess 145 mcg Capsule 145 mcg PO DAILY PRN (Reason: Constipation) polyethylene glycol 3350 17 gram Powder In Packet 17 g PO DAILY PRN PRN (Reason: CONSTIPATION) Qty: 0 0RF nitroglycerin 0.4 mg Tablet, Sublingual 0.4 mg sublingual Q5M PRN (Reason: Cardiac/Chest Pain) Qty: 0 0RF sennosides-docusate sodium [Stool Softener-Stimulant Laxat] 8.6-50 mg Tablet 1 tab PO BID PRN PRN (Reason: CONSTIPATION) Qty: 0 0RF oxycodone 5 mg Tablet 5 mg PO Q4H PRN PRN (Reason: Pain Score 4-10) 1 Days Qty: 4 0RF clonazepam 0.5 mg tablet 0.5 mg PO QHS Qty: 1 0RF metoprolol tartrate 25 mg tablet 25 mg PO BID Qty: 60 0RF furosemide 40 mg tablet 40 mg PO BIDLX acetaminophen 500 mg tablet 1,000 mg PO Q8 diltiazem HCl 120 mg capsule,extended release 24hr 120 mg PO Q12 nystatin [Nyamyc] 100,000 unit/gram powder 1 applic topical TID Protocol: *Topical Application Instructions APPLICATION INSTRUCTIONS: apply to abdominal folds potassium chloride [Klor-Con M20] 20 mEq tablet,ER particles/crystals 20 meq PO BIDCM lamotrigine 25 mg tablet 75 mg PO BID Primary Care Provider: Nahomy Bettencourt Referrals: Nahomy Bettencourt MD [Primary Care Provider] - Disposition Disposition: Inpatient Rehab Unit/Facility Discharge Location: [facility] Transitional Care Unit
[2022-06-17 12:33] LABS: Absolute Neutrophil Count 10.9 X10^3/uL (2.0-7.7); Basophil# 0.11 X10^3/uL; Basophil% 0.8 % (0-1); Eosinophil# 0.36 X10^3/uL; Eosinophils% 2.5 % (0-5); Hematocrit 40.2 % (37-47); Hemoglobin 12.4 g/dL (12.0-15.0); Lymphocyte % 11.2 % (19-41); Mean Corp Hgb Conc 30.8 g/dL (32-36); Mean Corpuscular Hgb 31.7 pg (27.0-32.0); Mean Corpuscular Volume 102.8 fL (81-99); Monocyte# 1.16 X10^3/uL; Monocyte% 8.2 % (0-10); NRBC Flagged by Analyzer 0 % (0-5); Neutrophil # 10.91 X10^3/uL (2.7-7.7); Neutrophil % 76.7 % (47-70); Platelet Count 430 K/mm3 (150-450); RBC Distribution Width CV 14.7 % (11.6-14.6); RBC Distribution Width SD 55.2 fl (35.1-43.9); Red Blood Count 3.91 M/mm3 (4.2-5.4); White Blood Count 14.2 K/mm3 (4.4-11.0)
--- NOTE | 2022-06-17 12:37 | ED.RN ---
THIS RN TOLD DR. MORELAND THE PT HAD TWO NITRO ON TCU. DR. MORELAND SAID OKAY TO GIVE ASPIRIN 324 MG.
[2022-06-17] MEDS: Aspirin 81 MG TAB.CHEW 324 MG PO (12:38)
--- NOTE | 2022-06-17 12:43 | ED.RN ---
THE PT TOLD THIS RN TO CALL HER TO LET HIM KNOW SHE IS IN THE ER. THIS RN CALLED BELL (PT'S ) AT 1243.
[2022-06-17] MEDS: Morphine 4 MG/ML Syringe IV ×2 (13:15→16:45)
[2022-06-17 13:18] LABS: Anion Gap 6 (5-15); BUN 27 mg/dL (7-18); Calcium,Total 9.7 mg/dL (8.5-10.1); Chloride 103 mmol/L (98-107); Creatinine, Serum 0.87 mg/dL (0.55-1.02); EST Glomerular Filtration Rate 66 mL/min (>60); Est Glom Filt Rate - Afr Amer 80 mL/min (>60); Estimated Creatinine Clearance 47.65 ml/min; Glucose 128 mg/dL (74-106); Potassium 4.6 mmol/L (3.5-5.1); Sodium Level 139 mmol/L (136-145); Troponin-I HS (w/2H Reflex) 8 pg/mL (3.0-54.0)
--- NOTE | 2022-06-17 13:23 | CT_ITS ---
STUDY: CTA CHEST REASON FOR EXAM: Female, 81 years old. Shortness of Breath, Chest Pain RADIATION DOSAGE (If Supplied By Facility): CTDIvol = ( 9.82 ) mGy, DLP = ( 505.80 ) mGycm TECHNIQUE: The examination was performed with the intravenous administration of IV 100mL Isovue-370. Post-processing of the angiographic images was performed, with multiplanar reformation and 3D reconstruction. Individualized dose optimization techniques were used for this CT. COMPARISON: None. FINDINGS: Normal enhancement of the main pulmonary artery and right and left pulmonary arteries. Normal enhancement of the bilateral peripheral pulmonary arteries. There is no demonstrated pulmonary embolism. There is atherosclerotic calcification of the aortic arch with tortuosity. There is no demonstrated aortic dissection. Normal heart and pericardium. There are visualized mediastinal lymph nodes, which are within normal size limits, and with normal morphology. Normal hilar regions. Normal visualized trachea and bronchi. The lungs are well expanded. Small bilateral pleural effusions with bibasilar infiltrates. This is slightly more prominent at the right lung base. Minimal increased markings are also seen along the posterior aspect of the left upper lobe abutting the left major fissure. Minimal scarring is also seen along the peripheral lateral aspect of the right upper lobe. Normal chest wall structures. There are degenerative changes of thoracic spine. Normal visualized upper abdomen. CT/CTA Chest W/WO Contrast IMPRESSION: Small bilateral pleural effusions with bibasilar infiltrates. No evidence of the pulmonary embolism. Electronically Signed: Amol Hannon MD at 14:24 EST ,
--- NOTE | 2022-06-17 13:28 | ED.RN ---
THIS RN CALLED TCU ON BEHALF OF DR. MORELAND. MARCELA, RN FROM TCU EXPLAINED PT HAD SHORTNESS OF BREATH ON THE FLOOR, 2L NC O2 THERAPY ADMINISTERED FOR CHEST PAIN AND SHORTNESS OF BREATH. CALL TOOK PLACE AT 1329.
[2022-06-17] MEDS: Albuterol 2.5 MG/3 ML VIAL.NEB. INHALATION (13:32)
[2022-06-17 14:25] LABS: BNP,B-Type NATRIURETIC PEPTIDE 126.9 pg/mL (0-100)
[2022-06-17 14:30] LABS: Reflex Troponin-HS? (from REC) Y
[2022-06-17 14:59] LABS: Troponin-I HS 8 pg/mL (3.0-54.0)
[2022-06-17] MEDS: LORazepam 2 MG/ML Syringe 0.5 MG IV (16:06)
--- NOTE | 2022-06-17 16:22 | CM.ED ---
advised patient is being discharged back to TCU. SW called TCU and spoke to Beatrice and advised patient is being transferred back to TCU from the ED. RN will call report to Beatrice in TCU. updated. Radha MONTEZ
--- NOTE | 2022-06-17 16:23 | ED.RN ---
THIS RN CALLED REPORT TO TCU. REPORT TAKEN BY SHANTE GONZALEZ AT 1623.
--- NOTE | 2022-06-17 16:55 | ED.RN ---
THIS RN CALLED TCU TO UPDATE SHANTE CEDILLO THAT PT HAD ADDITIONAL DOSE OF MORPHINE AFTER THIS RN CALLED REPORT. SHANTE CEDILLO AWARE.
--- NOTE | 2022-06-17 16:59 | ED.RN ---
PT REQUESTED THIS RN CALL PT (BELL) AND LET HIM KNOW PT WENT BACK TO TCU. THIS RN CALLED [facility] AT 1700.
== END 2022-06-17 17:01 ==
PROVIDERS: Emergency Provider Emergency Medicine; PCP Family Medicine; Visit Provider Emergency Medicine
DX: R07.9 Chest pain, unspecified (principal); E11.42 Type 2 diabetes mellitus with diabetic polyneuropathy; I48.0 Paroxysmal atrial fibrillation; G40.909 Epilepsy, unspecified, not intractable, without status epilepticus; J90 Pleural effusion, not elsewhere classified; R09.02 Hypoxemia; R06.02 Shortness of breath; I10 Essential (primary) hypertension; I25.10 Atherosclerotic heart disease of native coronary artery without angina pectoris; Z87.891 Personal history of nicotine dependence; Z96.651 Presence of right artificial knee joint
CPT/HCPCS: 71045; 71275; 80048; 83880; 84484; 85025; 93005; 94640; 94760; 96374; 96375; 96376; 99285; Q9967; A4216

== ENCOUNTER 2022-07-03 00:27 | Emergency (ER) | payer MEDICARE, OTHER, SELFPAY ==
[2022-07-03 00:29] VITALS: BP 115/94; PULSE 84; RESP 25; TEMP 36.7; O2SAT 98; BMI 29.2
--- NOTE | 2022-07-03 00:30 | EKG12_ITS ---
Test Reason : CP Blood Pressure : / mmHG Vent. Rate : 093 BPM Atrial Rate : 060 BPM P-R Int : 000 ms QRS Dur : 150 ms QT Int : 390 ms P-R-T Axes : 000 -27 119 degrees QTc Int : 484 ms Atrial fibrillation Left bundle branch block Abnormal ECG Confirmed by CAITLIN LYNN, ABI ([id number]), scientific editor MAMADOU TROY ([id number]) on 07/05/2022 1:58:25 PM Referred By: NOEMY Confirmed By:ABI TUCKER MD
[2022-07-03 01:07] LABS: Absolute Lymphocyte Count 1.44 X10^3/uL (0.83-4.51); Absolute Neutrophil Count 11.3 X10^3/uL (2.0-7.7); Basophil# 0.05 X10^3/uL; Basophil% 0.4 % (0-1); Eosinophil# 0.26 X10^3/uL; Eosinophils% 1.8 % (0-5); Hematocrit 36.3 % (37-47); Hemoglobin 11.6 g/dL (12.0-15.0); Lymphocyte # 1.44 X10^3/ul (0.83-4.51); Lymphocyte % 10.2 % (19-41); Mean Corpuscular Hgb 31.4 pg (27.0-32.0); Mean Corpuscular Volume 98.1 fL (81-99); Mean Platelet Vol. 9.7 fl (6.2-12.0); Monocyte# 0.98 X10^3/uL; NRBC Flagged by Analyzer 0 % (0-5); Neutrophil # 11.28 X10^3/uL (2.7-7.7); Neutrophil % 80.1 % (47-70); Platelet Count 311 K/mm3 (150-450); RBC Distribution Width SD 50.7 fl (35.1-43.9); White Blood Count 14.1 K/mm3 (4.4-11.0)
[2022-07-03] MEDS: Ondansetron 4 MG/2 ML Vial IV ×2 (01:07→05:29)
[2022-07-03] MEDS: fentaNYL 100 MCG/2 ML Ampul 25 MCG IV ×4 (01:08→05:29)
[2022-07-03 01:17] LABS: International Normalized Ratio 1.2; Prothrombin Time (Protime)PT. 14.5 SECONDS (11.7-14.9)
[2022-07-03 01:18] LABS: Partial Thromboplast Time 29.3 Seconds (24.1-36.2)
[2022-07-03 01:43] LABS: AST(SGOT) 8 U/L (15-37); Alanine Aminotransfer ALT/SGPT 15 U/L (13-56); Albumin, Serum 3.2 g/dL (3.2-5.0); Alkaline Phosphatase 139 U/L (45-117); Bilirubin, Direct 0.15 mg/dL (0.00-0.30); Globulin 3.5 g/dL (2.2-4.2); Lipase 161 U/L (73-393); Magnesium 2.6 mg/dL (1.6-2.6); Protein, Total 6.7 g/dL (6.4-8.2); Thyroid Stim Hormone (TSH) 1.85 uIU/mL (0.358-3.74); Troponin-I HS 8 pg/mL (3.0-54.0)
--- NOTE | 2022-07-03 01:55 | CT_ITS ---
INDICATION: chest pain EXAMINATION: CTA CHEST, ABDOMEN AND PELVIS WITH CONTRAST - TECHNIQUE: A CTA of the chest, abdomen, and pelvis is obtained with sagittal and coronal reconstructed MIP views. Three-dimensional surface rendered sequence of the thoracic and abdominal aorta was obtained. A radiation dose optimization technique was used for this scan. 100 mL of Isovue-370. Oral contrast: None. COMPARISON: CT angiogram chest June 17, 2022 CT abdomen and pelvis June 17, 2022 CT abdomen and pelvis May 07, 2016. FINDINGS: CT CHEST: THORACIC AORTA: There is mild plaque formation of the thoracic aorta. There is no visualized dissection or aneurysmal dilatation. ABDOMINAL AORTA: There is calcification of the abdominal aorta without aneurysmal dilatation or dissection. The innominate artery courses around the anterior aspect of the trachea. LUNGS: There is visualized groundglass opacity within the bilateral upper lobes adjacent to the major fissures. There is bilateral lower lobe right greater than left consolidation. There is resolving bilateral pleural effusions. MEDIASTINUM: There are reactive small AP window lymph nodes demonstrated measuring up to 1 cm. There is a precarinal lymph node measuring 1.1 cm. HEART: There is mild cardiac enlargement. There is a visualized small pericardial effusion greater than prior study. No CAD. CT ABDOMEN AND PELVIS: LIVER: The liver enhances homogeneously. No masses identified. GALLBLADDER: There is nonvisualization of the gallbladder which is likely been surgically removed SPLEEN: Normal. PANCREAS: No masses or inflammation. ADRENAL GLANDS: Normal. KIDNEYS AND URETERS: The kidneys both enhance appropriately. There are normal size and shape. No hydronephrosis or nephrolithiasis. No renal masses or cysts. STOMACH: There is a mildly thick-walled appearance of the distal stomach. SMALL BOWEL: There are mildly distended loops of small bowel in the anterior aspect of the abdomen. The prior study there is a persistent location of the bowel in close proximity to the right side anterior abdominal wall which may represent adhesions. MESENTERY: No mesenteric inflammation. No ascites. COLON: Otherwise there is mild to moderate stool within the transverse colon to the rectum. fluid filled and air-fluid levels within the cecum and ascending colon. There is nonspecific layering hyperdense material within the visualized cecum and ascending colon. The colon otherwise is normal. There is a large fatty ileocecal valve. APPENDIX: Not visualized. IVC: Normal. RETROPERITONEUM: No retroperitoneal lymphadenopathy. PELVIC STRUCTURES: Normal bladder. Uterus is not visualized and has likely been surgically removed. SOFT TISSUES ABDOMEN: There is a minimal central located fatty hernia. SOFT TISSUE CHEST: The extrathoracic soft tissues are normal. BONES: Degenerative change in both shoulder joints. There is degenerative change within the thoracic and lumbar spine. CT/CTA Chst, Abd, Pel W and/or WO IMPRESSION: Aorta is tortuous partially calcified without aneurysmal dilatation or dissection. Mild cardiac enlargement small pericardial effusion. Bilateral lower lobe consolidation. Upper lobe atelectasis and/or developing infiltrates. Findings are suspicious for gastritis. Air-fluid levels within the colon. The patient may develop diarrhea. Constipation in the distal colon. There is diverticulosis without diverticulitis. There is nonspecific hyperdense material within the lumen of the ascending colon and at the level of the cecum which may represent nonspecific hyperdense contrast or ingested material versus the possibility of blood in the appropriate setting which is thought to be less likely but should be excluded with laboratory values and stool samples. There is a stable small nonspecific cystic structure adjacent to the right hepatic lobe measuring 2 x 1 cm.. No aneurysmal dilatation no dissection. Electronically Signed: Linda Camilo MD at 4:47 EST ,
[2022-07-03 02:12] VITALS: BP 94/57; PULSE 98; RESP 18; O2SAT 98
[2022-07-03 04:22] VITALS: BP 105/90; PULSE 98; RESP 18; O2SAT 93
--- NOTE | 2022-07-03 04:44 | EDS_ITS ---
HPI History of Present Illness Chief Complaint: Chest Pain Narrative Narrative: Patient is an 81-year-old female who is in the transitional care unit with past medical history of diabetes chronic atrial fibrillation hypertension anxiety and depression. She states that she was doing fine and then an aide helped her go to the bathroom and after coming back from the bathroom developed left-sided chest discomfort. Patient states that she was not gripped around the chest to help with moving to the bathroom and she denies falling or any trauma. TCU reports that they have worked her up with basic blood work and troponin which was negative but patient was still complaining of pain so she was sent to the ER for evaluation. Patient reports the pain is more sharp in nature located along the left chest wall without radiation. She denies any nausea vomiting or diaphoresis associated with this. 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 Back pain Cardiology follow-up encounter Cellulitis of chest wall Chronic constipation Chronic cough Debility Depression Diabetes Diabetes mellitus Diabetic polyneuropathy Dietary restriction DM2 (diabetes mellitus, type 2) Epilepsy Essential hypertension Former smoker H/O cardiac murmur History of atrial fibrillation History of echocardiogram History of left heart catheterization (LHC) (~06/02/22) History of pain when walking History of steroid therapy History of stress test Hx of back injury Hx of vaginal delivery Hypertension Hypertension Inability to ambulate due to knee Injury of back Injury of head and neck Nephrolithiasis Neuropathy Neuropathy, diabetic Paroxysmal atrial fibrillation Vitamin D deficiency Wears glasses Home Medications lisinopril 20 mg tablet 20 mg PO QHS BLOOD PRESSURE 11/21/14 [History Last Taken 06/08/22] duloxetine 30 mg capsule,delayed release 30 mg PO DAILY NEUROPATHY 09/22/20 [History Last Taken 06/09/22] aspirin 81 mg tablet,delayed release 81 mg PO DAILY HEART HEALTH 06/09/22 [History Last Taken 06/09/22] linaclotide 145 mcg capsule (Linzess) 145 mcg PO DAILY PRN Constipation 06/09/22 [History Last Taken Unknown] acetaminophen 500 mg tablet 1,000 mg PO Q8 pain 06/11/22 [History Last Taken Unknown] nitroglycerin 0.4 mg sublingual tablet 0.4 mg sublingual Q5M PRN Cardiac/Chest Pain #0 tabs 06/11/22 [Rx Last Taken Unknown] diltiazem HCl 120 mg capsule,extended release 24 hr 120 mg PO Q12 Check with primary doctor 30 days #60 caps 06/29/22 [Rx Last Taken Unknown] furosemide 40 mg tablet 40 mg PO BIDLX Diuretic 30 days #60 tabs 06/29/22 [Rx Last Taken Unknown] lamotrigine 100 mg tablet 100 mg PO BID 30 days #60 tabs 06/29/22 [Rx Last Taken Unknown] melatonin 10 mg sublingual tablet 10 mg PO QHS #0 tabs 06/29/22 [Rx Last Taken Unknown] potassium chloride 20 mEq tablet,extended release(part/cryst) (Klor-Con M) 20 meq PO BIDCM Supplement 30 days #60 tabs 06/29/22 [Rx Last Taken Unknown] tamsulosin 0.4 mg capsule 0.4 mg PO DAILY@1730 30 days #30 caps 06/29/22 [Rx Last Taken Unknown] nystatin 100,000 unit/gram topical powder (Nyamyc) 1 applic topical TID 30 days #60 grams 07/02/22 [Rx Last Taken Unknown] Allergy/AdvReac Type Severity Reaction Status Date / Time bacitracin Allergy Rash Verified 06/09/22 12:49 [From Neosporin ([id number])] bacitracin zinc Allergy Rash Verified 06/09/22 12:49 [From Neosporin ([id number])] neomycin sulfate Allergy Rash Verified 06/09/22 12:49 [From Neosporin ([id number])] polymyxin B Allergy Rash Verified 06/09/22 12:49 [From Neosporin ([id number])] sulfamethoxazole Allergy Itching Verified 06/09/22 12:49 [From Bactrim] trimethoprim [From Bactrim] Allergy Itching Verified 06/09/22 12:49 codeine AdvReac Nausea Verified 06/09/22 12:49 milk AdvReac Nausea/Vom/ Verified 06/09/22 12:49 Diarrhea Family History Father No problems noted. Mother No problems noted. Surgical History Amputated toe of right foot Deviated septum History of appendectomy History of cholecystectomy History of hysterectomy History of neck surgery History of tonsillectomy History of total right knee replacement (TKR) Hx of cystoscopy Hx of fusion of cervical spine S/P total knee arthroplasty Social History household members: spouse Smoking Status: Former smoker alcohol intake: never substance use type: does not use caffeine: No what type of physical activity do you participate in: other details: physical therapy seatbelt use: always do you feel safe at home: Yes ROS ROS ED Constitutional Constitutional ED: Denies chills or fever(s) ENT ENT ED: Denies sore throat Cardiovascular Cardiovascular: Reports chest pain, palpitations and racing heartbeat Respiratory/Chest Respiratory/Chest: Denies cough or dyspnea Gastrointestinal Gastrointestinal: Reports abdominal pain; Denies diarrhea, nausea or vomiting Genitourinary Genitourinary ED: Denies dysuria Musculoskeletal Musculoskeletal: Denies myalgias Integumentary Denies rash Neurologic Neurologic: Denies headache(s) Hematologic/Lymphatic Hematologic/Lymphatic: Denies easy bleeding or easy bruising EXAM Physical Exam Const Vital Signs: 07/03/22 00:29 07/03/22 02:12 07/03/22 04:22 Temperature 98.0 F Temperature Source Temporal Pulse Rate 84 98 98 Respiratory Rate 25 H 18 18 Blood Pressure 115/94 H 94/57 L 105/90 H Blood Pressure Mean 101 69 95 Pulse Ox 98 98 93 Oxygen Delivery Method Room Air Room Air Nasal Cannula Oxygen Flow Rate (L/min) 2 07/03/22 05:51 Temperature Temperature Source Pulse Rate 103 H Respiratory Rate 20 H Blood Pressure 99/71 Blood Pressure Mean 80 Pulse Ox 97 Oxygen Delivery Method Nasal Cannula Oxygen Flow Rate (L/min) 3 Positive well nourished and well developed General Appearance ED: well developed HEENT Reports dry mucous membranes Mouth ED: Yes dry mucous membranes Mouth: dry mucous membranes Eyes PERRL and EOMs intact bilaterally Neck supple Neck Narrative: No nuchal rigidity or meningeal signs noted Chest Wall Chest Narrative: There is reproducible pain of the left chest wall and the intercostal muscle spaces rib regions 4-7. There is no overlying soft tissue changes to suggest trauma or infection. No bony deformity or crepitance Resp Resp Narrative: Breath sounds are diminished throughout with faint crackles in the bilateral bases and mild tachypnea but otherwise no nasal flaring or retractions or accessory muscle use Cardio Rate: other Other Details: Patient has an irregularly irregular rhythm with regular rate consistent with her history of chronic atrial fibrillation GI GI Narrative: Abdomen is soft but distended. Bowel sounds are hypoactive. Patient has a reducible ventral hernia. There is mild pain with palpation in the midepigastric region without voluntary guarding or rigidity. No pulsatile mass or fluid wave noted Auscultation: hypoactive bowel sounds Palpation: soft Extremity normal to inspection Neuro oriented x3 and CN's II-XII intact bilaterally Sensorium / Orientation: alert Psych Psych Narrative: Patient has a nervous/anxious affect Skin no rashes or lesions noted MDM MDM MDM Narrative Medical decision making narrative: Patient presented to the ER in atrial fibrillation but has a past medical history of this. TCU has already performed a basic work-up looking at electrolytes and kidney function as well as a troponin. They revealed no clinically significant findings but as patient reports consistent pain I will add a repeat troponin. Also as she is in atrial fibrillation without anticoagulation there is concern she is developed a pulmonary embolus so a CTA will be obtained. This will be taken through the abdomen as she does have midepigastric pain. Liver enzymes will also be added as with her midepigastric pain she could have an atypical pancreatitis presentation. The patient does have a left bundle branch block on EKG but this is chronic in nature. The patient's white count is elevated at 14.1 but she is afebrile so this could just be stress response secondary to pain or could be related to possible infection. The CAT scan did show bilateral lower lobe infiltrates with possibly developing upper lobe infection as well. This CTA was compared to the one from June 17 and does appear that these lung findings are slightly worsened from previous. The patient has required oxygen intermittently since her recent heart cath in May and at this time she is only requiring 2 L of supplemental oxygen to keep her sats in the low to mid 90s. She is also maintaining her blood pre ssure. Therefore at this time I do not feel she needs to be placed in a regular medical floor but can be given antibiotics and these can be continued on the TCU floor as they have the capability provide oxygen and IV medication. The patient has a small pericardial effusion that was not present at her previous CAT scan but as there are no signs of tamponade there is no need for emergent pericardi ocentesis or emergent surgical intervention. This could be a possible cause of her worsening pain and therefore she will be given Toradol. She may need evaluation by cardiology to discuss whether aspirin ibuprofen colchicine or steroids would be the most appropriate treatment for this. therefore at this time the work-up is not showing any signs of acute cardiac event with her downtrending troponin and this fits with the recent heart cath from May. She does not have a pulmonary embolus or dissection. There is no signs of pancreatitis or intestinal obstruction. The radiologist did mention some hyperdense changes within the colon but patient is not on a blood thinner her hemoglobin is normal and therefore this is not clinically correlate and I do not feel needs further evaluation especially as it does not correlate with her chest pain which brought her here today. The patient will be started on antibiotics secondary to the pneumonia reported on the CT scan. However as TCU is capable of providing this treatment I do not feel there is need to change her to a regular floor. I do recommend that the antibiotics be continued through an IV route for the next few days based on the fact this is most likely nosocomial pneumonia and this will also allow the patient to be provided IV pain medication which has helped in the emergency department. Patient may also need ibuprofen or aspirin or colchicine or steroids to help with the small pericardial effusion found on today CTA. This plan of care was discussed with the patient and her family and they are agreeable to it Lab Data Attestation: I reviewed the patient's lab results. Labs: Laboratory Results - last 24 hr 07/03/22 07/03/22 07/03/22 01:00 01:00 01:00 WBC 14.1 H RBC 3.70 L Hgb 11.6 L Hct 36.3 L MCV 98.1 MCH 31.4 MCHC 32.0 RDW Std Deviation 50.7 H RDW Coeff of Robert 14.0 Plt Count 311 MPV 9.7 Immature Gran % (Auto) 0.500 Neut % (Auto) 80.1 H Lymph % (Auto) 10.2 L Finney % (Auto) 7.0 Eos % (Auto) 1.8 Baso % (Auto) 0.4 Absolute Neuts (auto) 11.3 H Absolute Lymphs (auto) 1.44 Nucleated RBC % 0 PT 14.5 INR 1.2 APTT 29.3 Magnesium 2.6 Total Bilirubin 0.40 Direct Bilirubin 0.15 AST 8 L ALT 15 Alkaline Phosphatase 139 H Troponin I High Sens 8 Total Protein 6.7 Albumin 3.2 Globulin 3.5 Lipase 161 TSH 1.85 Radiography Diagnostic Testing: Clinical Impression(s) from Imaging Studies Chest/Abdomen/Pelvis CTA 07/03/22 01:55 IMPRESSION: Aorta is tortuous partially calcified without aneurysmal dilatation or dissection. Mild cardiac enlargement small pericardial effusion. Bilateral lower lobe consolidation. Upper lobe atelectasis and/or developing infiltrates. Findings are suspicious for gastritis. Air-fluid levels within the colon. The patient may develop diarrhea. Constipation in the distal colon. There is diverticulosis without diverticulitis. There is nonspecific hyperdense material within the lumen of the ascending colon and at the level of the cecum which may represent nonspecific hyperdense contrast or ingested material versus the possibility of blood in the appropriate setting which is thought to be less likely but should be excluded with laboratory values and stool samples. There is a stable small nonspecific cystic structure adjacent to the right hepatic lobe measuring 2 x 1 cm.. No aneurysmal dilatation no dissection. Electronically Signed: Linda Camilo MD at 4:47 EST , Discharge Plan Triage Chief Complaint: Chest Pain ED Provider: Dieter Mohan Dx/Rx/DC Orders Clinical Impression: Pneumonia, Chest pain, DM2 (diabetes mellitus, type 2), Hypoxia, Debility, Seizure disorder, Atrial fibrillation, persistent, Pericardial effusion Instructions: Understanding Pericardial Effusion, ED Pneumonia (Adult) Prescriptions: No Action duloxetine 30 mg capsule,delayed release(DR/EC) 30 mg PO DAILY lisinopril 20 MG tablet 20 mg PO QHS aspirin 81 mg Tablet,Delayed Release (Dr/Ec) 81 mg PO DAILY Linzess 145 mcg Capsule 145 mcg PO DAILY PRN (Reason: Constipation) nitroglycerin 0.4 mg Tablet, Sublingual 0.4 mg sublingual Q5M PRN (Reason: Cardiac/Chest Pain) Qty: 0 0RF acetaminophen 500 mg tablet 1,000 mg PO Q8 tamsulosin 0.4 mg Capsule 0.4 mg PO DAILY@1730 30 Days Qty: 30 0RF lamotrigine 100 mg Tablet 100 mg PO BID 30 Days Qty: 60 0RF melatonin 10 mg Tablet, Sublingual 10 mg PO QHS Qty: 0 0RF furosemide 40 mg tablet 40 mg PO BIDLX 30 Days Qty: 60 0RF potassium chloride [Klor-Con M20] 20 mEq tablet,ER particles/crystals 20 meq PO BIDCM 30 Days Qty: 60 0RF diltiazem HCl 120 mg capsule,extended release 24hr 120 mg PO Q12 30 Days Qty: 60 0RF nystatin [Nyamyc] 100,000 unit/gram Powder 1 applic topical TID 30 Days Qty: 60 0RF Protocol: *Topical Application Instructions APPLICATION INSTRUCTIONS: Apply to abdominal folds Primary Care Provider: Nahomy Bettencourt Referrals: Nahomy Bettencourt MD [Primary Care Provider] - Disposition Disposition: [facility]
[2022-07-03] MEDS: Ketorolac 15 MG/ML Vial IV (05:30)
[2022-07-03 05:51] VITALS: BP 99/71; PULSE 103; RESP 20; O2SAT 97
[2022-07-03 07:00] VITALS: BP 97/46; PULSE 98; RESP 18; O2SAT 97
[2022-07-03 07:25] LABS: Procalcitonin < 0.04 ng/mL (0.00-0.09)
[2022-07-03] MEDS: oxyCODONE 5 MG Tablet 10 MG PO (07:28)
[2022-07-03 07:58] VITALS: BP 92/58; PULSE 97; RESP 16; TEMP 36.9; O2SAT 99
== END 2022-07-03 08:11 ==
PROVIDERS: Emergency Provider Emergency Medicine; PCP Family Medicine; Visit Provider Emergency Medicine
DX: J18.9 Pneumonia, unspecified organism (principal); E11.40 Type 2 diabetes mellitus with diabetic neuropathy, unspecified; I48.19 Other persistent atrial fibrillation; G40.909 Epilepsy, unspecified, not intractable, without status epilepticus; R09.02 Hypoxemia; I25.10 Atherosclerotic heart disease of native coronary artery without angina pectoris; I10 Essential (primary) hypertension; I31.39 Other pericardial effusion (noninflammatory); Z87.891 Personal history of nicotine dependence
CPT/HCPCS: 71275; 74174; 80076; 83690; 83735; 84145; 84443; 84484; 85025; 85610; 85730; 87040; 93005; 96361; 96365; 96366; 96367; 96375; 96376; 99283; J7030; J7050; Q9967; A4216; J2405

== ENCOUNTER 2022-07-16 00:01 | Emergency (ER) | payer MEDICARE, OTHER, SELFPAY ==
[2022-07-16] VITALS (17 sets, daily range): BP systolic 81–172; BP diastolic 53–100; PULSE 72–119; RESP 17–26; TEMP 36.4–36.7; O2SAT 86–96; BMI 29.9
--- NOTE | 2022-07-16 00:10 | RAD_ITS ---
EXAM: XR CHEST, 1 VIEW CLINICAL INDICATION: chest pain TECHNIQUE: Frontal view of the chest. This report was created using [employer] report generation technology. COMPARISON: 06/17/2022 FINDINGS: LUNGS AND PLEURAL SPACES: Left basilar airspace disease and moderate effusion. No pneumothorax. HEART: Moderate enlargement of the cardiac silhouette. MEDIASTINUM: Central airways and mediastinal contour are unremarkable. BONES/JOINTS: See above. SOFT TISSUES: Unremarkable. RAD/Chest 1 View (Portable) IMPRESSION: Left basilar airspace disease and moderate effusion. Findings may indicate atelectasis or pneumonia. Electronically Signed: oLs Rodriguez MD at 0:43 EST ,
--- NOTE | 2022-07-16 00:10 | EKG12_ITS ---
Test Reason : CP Blood Pressure : / mmHG Vent. Rate : 114 BPM Atrial Rate : 000 BPM P-R Int : 000 ms QRS Dur : 150 ms QT Int : 358 ms P-R-T Axes : 000 -04 142 degrees QTc Int : 493 ms Atrial fibrillation with rapid ventricular response Left bundle branch block Abnormal ECG Confirmed by PRAKASH LYNN, LISA ([id number]), film editor supervisor MAMADOU TROY ([id number]) on 07/19/2022 11:22:10 AM Referred By: NOEMY Confirmed By:LISA RANDALL MD
[2022-07-16 00:22] LABS: Absolute Neutrophil Count 14.1 X10^3/uL (2.0-7.7); Basophil# 0.04 X10^3/uL; Basophil% 0.2 % (0-1); Eosinophil# 0.06 X10^3/uL; Eosinophils% 0.4 % (0-5); Hematocrit 34.8 % (37-47); Hemoglobin 10.7 g/dL (12.0-15.0); Lymphocyte % 7.2 % (19-41); Mean Corp Hgb Conc 30.7 g/dL (32-36); Mean Corpuscular Hgb 31.1 pg (27.0-32.0); Mean Corpuscular Volume 101.2 fL (81-99); Monocyte# 1.13 X10^3/uL; Monocyte% 6.8 % (0-10); NRBC Flagged by Analyzer 0 % (0-5); Neutrophil # 14.06 X10^3/uL (2.7-7.7); Neutrophil % 84.7 % (47-70); Platelet Count 352 K/mm3 (150-450); RBC Distribution Width CV 14.7 % (11.6-14.6); RBC Distribution Width SD 54.4 fl (35.1-43.9); Red Blood Count 3.44 M/mm3 (4.2-5.4); White Blood Count 16.6 K/mm3 (4.4-11.0)
[2022-07-16 00:40] LABS: Anion Gap 7 (5-15); BUN 24 mg/dL (7-18); BUN/Creat Ratio 31.5 RATIO (10-20); Calcium,Total 9.5 mg/dL (8.5-10.1); Chloride 98 mmol/L (98-107); Creatinine, Serum 0.76 mg/dL (0.55-1.02); EST Glomerular Filtration Rate 77 mL/min (>60); Est Glom Filt Rate - Afr Amer 93 mL/min (>60); Glucose 148 mg/dL (74-106); Potassium 4.4 mmol/L (3.5-5.1); Sodium Level 134 mmol/L (136-145); Troponin-I HS 7 pg/mL (3.0-54.0)
[2022-07-16] MEDS: Ondansetron 4 MG/2 ML Vial IV (00:54)
[2022-07-16 00:56] LABS: Magnesium 2.8 mg/dL (1.6-2.6)
[2022-07-16] MEDS: Morphine 2 MG/ML Syringe IV (00:57)
[2022-07-16] MEDS: Furosemide 40 MG/4 ML Vial IV (00:57)
[2022-07-16 01:04] LABS: International Normalized Ratio 1.3; Prothrombin Time (Protime)PT. 15.8 SECONDS (11.7-14.9)
[2022-07-16 01:05] LABS: Partial Thromboplast Time 33.6 Seconds (24.1-36.2)
[2022-07-16 01:06] LABS: BNP,B-Type NATRIURETIC PEPTIDE 147.3 pg/mL (0-100)
[2022-07-16 01:28] LABS: D-Dimer Quantitative (DVT/PE) 1.94 FEU/ug/m (0.27-0.49)
[2022-07-16 01:38] LABS: Procalcitonin < 0.04 ng/mL (0.00-0.09)
--- NOTE | 2022-07-16 01:42 | CT_ITS ---
EXAM: CT ANGIOGRAPHY CHEST WITHOUT AND WITH INTRAVENOUS CONTRAST CLINICAL INDICATION: chest pain / ? PE TECHNIQUE: Helically acquired angiography images were obtained of the chest without and with intravenous contrast. This CT exam was performed using one or more of the following dose reduction techniques: automated exposure control, adjustment of the mA and/or kV according to patient size, and/or use of iterative reconstruction technique. This report was created using [employer] report generation technology. MIP reconstructed images were created and reviewed. CONTRAST: IV 100mL [id number] COMPARISON: 07/03/2022 FINDINGS: PULMONARY ARTERIES: Unremarkable. Normal in caliber. No evidence of pulmonary embolism. AORTA: Atherosclerotic changes and ectasia of the aorta but no acute abnormality. No evidence of dissection. GREAT VESSELS OF AORTIC ARCH: Unremarkable. Normal in caliber. No evidence of dissection. LUNGS AND PLEURAL SPACES: Small pleural effusions and bilateral lower lobe airspace disease. No mass. HEART: Increasing, moderate pericardial effusion. No signs of right heart strain, ratio of right ventricle to left ventricle measures less than 1. MEDIASTINUM: Unremarkable. No mediastinal or hilar adenopathy. Esophagus is unremarkable. No hiatal hernia. THYROID: Unremarkable. No thyroid lesions. BONES/JOINTS: Unremarkable. No suspicious lytic or blastic abnormality. CT/CTA Chest W/WO Contrast IMPRESSION: 1. Increasing, moderate pericardial effusion. 2. Small pleural effusions and bilateral lower lobe airspace disease. This may indicate atelectasis or pneumonia. 3. No evidence of pulmonary embolism. Electronically Signed: Los Rodriguez MD at 2:44 EST ,
--- NOTE | 2022-07-16 06:47 | EDS_ITS ---
HPI History of Present Illness Chief Complaint: Chest Pain Narrative Narrative: Patient is an 81-year-old female who has been in and out of the hospital since early May. She was admitted most recently on July 03 and spent multiple days in the hospital. Patient states she was recently discharged. She reports that she went to bed normally and then awoke this morning complaining of chest discomfort and shortness of breath. They state that at the start of the year she underwent a heart cath which revealed no signs of cardiac damage. However she was told she had fluid and pneumonia in her lungs. She states that with this history and now the return of symptoms she was concerned for worsening of her previous issues and therefore EMS was called and patient was brought in for evaluation [facility] Medical History Acute postoperative pain of right knee Ambulates with cane Arthritis Atherosclerotic heart disease of [place] coronary artery without angina pectoris Back pain Cardiology follow-up encounter Cellulitis of chest wall Chronic constipation Chronic cough Debility Depression Diabetes Diabetes mellitus Diabetic polyneuropathy Dietary restriction DM2 (diabetes mellitus, type 2) Epilepsy Essential hypertension Former smoker H/O cardiac murmur History of atrial fibrillation History of echocardiogram History of left heart catheterization (LHC) (~06/02/22) History of pain when walking History of steroid therapy History of stress test Hx of back injury Hx of vaginal delivery Hypertension Hypertension Inability to ambulate due to knee Injury of back Injury of head and neck Nephrolithiasis Neuropathy Neuropathy, diabetic Paroxysmal atrial fibrillation Vitamin D deficiency Wears glasses Home Medications lisinopril 20 mg tablet 20 mg PO QHS BLOOD PRESSURE 11/21/14 [History Last Taken 06/08/22] duloxetine 30 mg capsule,delayed release 30 mg PO DAILY NEUROPATHY 09/22/20 [History Last Taken 06/09/22] aspirin 81 mg tablet,delayed release 81 mg PO DAILY HEART HEALTH 06/09/22 [History Last Taken 06/09/22] linaclotide 145 mcg capsule (Linzess) 145 mcg PO DAILY PRN Constipation 06/09/22 [History Last Taken Unknown] acetaminophen 500 mg tablet 1,000 mg PO Q8 pain 06/11/22 [History Last Taken Unknown] nitroglycerin 0.4 mg sublingual tablet 0.4 mg sublingual Q5M PRN Cardiac/Chest Pain #0 tabs 06/11/22 [Rx Last Taken Unknown] diltiazem HCl 120 mg capsule,extended release 24 hr 120 mg PO Q12 Check with primary doctor 30 days #60 caps 06/29/22 [Rx Last Taken Unknown] furosemide 40 mg tablet 40 mg PO BIDLX Diuretic 30 days #60 tabs 06/29/22 [Rx Last Taken Unknown] lamotrigine 100 mg tablet 100 mg PO BID 30 days #60 tabs 06/29/22 [Rx Last Taken Unknown] melatonin 10 mg sublingual tablet 10 mg PO QHS #0 tabs 06/29/22 [Rx Last Taken Unknown] potassium chloride 20 mEq tablet,extended release(part/cryst) (Klor-Con M) 20 meq PO BIDCM Supplement 30 days #60 tabs 06/29/22 [Rx Last Taken Unknown] tamsulosin 0.4 mg capsule 0.4 mg PO DAILY@1730 30 days #30 caps 06/29/22 [Rx Last Taken Unknown] nystatin 100,000 unit/gram topical powder (Nyamyc) 1 applic topical TID 30 days #60 grams 07/02/22 [Rx Last Taken Unknown] levofloxacin 750 mg tablet 750 mg PO DAILY #5 tabs 07/03/22 [Rx Last Taken Unknown] Allergy/AdvReac Type Severity Reaction Status Date / Time bacitracin Allergy Rash Verified 07/16/22 00:06 [From Neosporin ([id number])] bacitracin zinc Allergy Rash Verified 07/16/22 00:06 [From Neosporin ([id number])] neomycin sulfate Allergy Rash Verified 07/16/22 00:06 [From Neosporin ([id number])] polymyxin B Allergy Rash Verified 07/16/22 00:06 [From Neosporin ([id number])] sulfamethoxazole Allergy Itching Verified 07/16/22 00:06 [From Bactrim] trimethoprim [From Bactrim] Allergy Itching Verified 07/16/22 00:06 codeine AdvReac Nausea Verified 07/16/22 00:06 milk AdvReac Nausea/Vom/ Verified 07/16/22 00:06 Diarrhea Family History Father No problems noted. Mother No problems noted. Surgical History Amputated toe of right foot Deviated septum History of appendectomy History of cholecystectomy History of hysterectomy History of neck surgery History of tonsillectomy History of total right knee replacement (TKR) Hx of cystoscopy Hx of fusion of cervical spine S/P total knee arthroplasty Social History household members: spouse Smoking Status: Former smoker alcohol intake: never substance use type: does not use caffeine: No what type of physical activity do you participate in: other details: physical therapy seatbelt use: always do you feel safe at home: Yes ROS ROS ED Constitutional Constitutional ED: Denies chills or fever(s) ENT ENT ED: Denies sore throat Cardiovascular Cardiovascular: Reports chest pain and palpitations Respiratory/Chest Respiratory/Chest: Reports cough and dyspnea Gastrointestinal Gastrointestinal: Denies abdominal pain, diarrhea, nausea or vomiting Genitourinary Genitourinary ED: Denies dysuria Musculoskeletal Musculoskeletal: Denies myalgias Integumentary Denies rash Neurologic Neurologic: Reports weakness; Denies headache(s) Hematologic/Lymphatic Hematologic/Lymphatic: Denies easy bleeding or easy bruising EXAM Physical Exam Const Vital Signs: 07/16/22 00:02 07/16/22 00:06 07/16/22 00:07 Temperature 97.5 F L Temperature Source Temporal Pulse Rate 72 Respiratory Rate 19 H Respiratory Effort Short of Breath Blood Pressure 172/100 H Blood Pressure Mean 124 Pulse Ox 86 93 Oxygen Delivery Method Room Air Nasal Cannula Oxygen Flow Rate (L/min) 3 07/16/22 00:11 07/16/22 01:02 07/16/22 01:32 Temperature Temperature Source Pulse Rate 119 H 103 H Respiratory Rate 22 H 23 H Respiratory Effort Blood Pressure 113/78 102/82 H Blood Pressure Mean 89 88 Pulse Ox 93 94 94 Oxygen Delivery Method Nasal Cannula Nasal Cannula Nasal Cannula Oxygen Flow Rate (L/min) 3 3 3 07/16/22 02:00 07/16/22 02:40 07/16/22 02:46 Temperature 97.7 F L Temperature Source Oral Pulse Rate 105 H 90 Respiratory Rate 24 H 22 H Respiratory Effort Blood Pressure 99/62 82/64 L Blood Pressure Mean 74 70 Pulse Ox 95 93 Oxygen Delivery Method Nasal Cannula Nasal Cannula Oxygen Flow Rate (L/min) 3 3 07/16/22 03:00 07/16/22 03:11 07/16/22 03:47 Temperature Temperature Source Pulse Rate 101 H 87 Respiratory Rate 22 H 17 Respiratory Effort Blood Pressure 81/61 L 82/54 L 89/53 L Blood Pressure Mean 67 63 65 Pulse Ox 95 94 Oxygen Delivery Method Nasal Cannula Nasal Cannula Oxygen Flow Rate (L/min) 3 3 07/16/22 04:23 07/16/22 04:39 07/16/22 05:07 Temperature Temperature Source Pulse Rate 85 90 85 Respiratory Rate 19 H 19 H 18 Respiratory Effort Blood Pressure 98/60 114/58 L 91/67 Blood Pressure Mean 72 76 75 Pulse Ox 96 96 96 Oxygen Delivery Method Nasal Cannula Nasal Cannula Nasal Cannula Oxygen Flow Rate (L/min) 3 3 3 07/16/22 06:42 Temperature Temperature Source Pulse Rate 79 Respiratory Rate 24 H Respiratory Effort Blood Pressure 103/85 H Blood Pressure Mean 91 Pulse Ox 95 Oxygen Delivery Method Nasal Cannula Oxygen Flow Rate (L/min) 3 Positive well nourished and well developed General Appearance ED: well developed HEENT Reports moist mucous membranes HEENT Narrative: No tongue or lip swelling no oral lesions no airway edema or compromise Eyes PERRL and EOMs intact bilaterally General Eye ED: Negative for pale conjunctiva Neck supple and no JVD Neck Narrative: No nuchal rigidity or meningeal signs present Chest Wall palpation of chest normal Chest Narrative: No bony deformity or crepitance Resp Resp Narrative: Patient has mild tachypnea and breath sounds are diminished with crackles and rhonchi noted mainly along the left lower lobe. However there is no nasal flaring or retractions or accessory muscle use present. Cardio Rate: other Other Details: Irregularly irregular rhythm with slightly tachycardic rate at approximately 110 consistent with history of atrial fibrillation GI normal to inspection, nondistended, normoactive bowel sounds, non-tender, non- distended and no masses GI Narrative: No voluntary guarding or rigidity. No pulsatile mass or fluid wave Auscultation: normoactive bowel sounds Palpation: soft Extremity normal to inspection Extremity Narrative: No asymmetric edema no pitting edema negative Homans' sign bilaterally Neuro oriented x3 and CN's II-XII intact bilaterally Sensorium / Orientation: alert Psych Psych Narrative: Patient has a flat affect Skin no rashes or lesions noted Skin Narrative: There is mild skin pallor noted MDM MDM MDM Narrative Medical decision making narrative: Patient presented to the ER in atrial fibrillation but has a past medical history of this. Her room air pulse ox was in the low to mid 80s and she states she does not typically need oxygen. Her previous records were reviewed and she had a CTA on July 03 roughly 2 weeks ago documenting bilateral pleural effusions that were small in nature as well as a small pericardial effusion without PE. Secondary to the recent CTA felt no need to start with a CT scan but elected to perform a chest x-ray with D-dimer. Chest x-ray showed left- sided pleural effusion that appeared greater in nature than her x-ray from early June. With her hypoxia she was initially ordered Lasix as her pressure was approximately 100-110 systolic. Remainder blood work showed leukocytosis at 16.6 but patient has a chronically elevated white count on chart review. The patient's D-dimer was elevated and therefore repeat CTA was obtained. This showed small bilateral pleural effusions with left lower lobe airspace disease which could be atelectasis versus infiltrate and now a moderate size pericardial effusion. The patient does not have a fever and as the symptoms came on rather abruptly I do not feel that the lower lobe airspace disease is infectious. A procalcitonin was obtained which is normal also going against an infectious process. Secondary to this I do not feel she warrants antibiotic. Because of the now increasing pericardial effusion I contacted cardiology on-call. They feel that with the patient's worsening pericardial effusion and now the fact she has become mildly hypotensive that she should be transferred to a facility echo possibly perform a pericardial drainage or window if necessary. This plan of care was discussed with the patient and her who is power of attorney law clerk and they do wish to be transferred [facility]. They were contacted and they do agree to accept the patient through the ER at this time. Cardiology recommend provide another 500 mL of fluid despite the patient's known history of heart heart failure and this did help improve her blood pressure to systolically of approximately 100. The patient's CODE STATUS was discussed with both patient and who is POA and at this time patient is still a full code History & Record Review Discussion w/independent historian: Patient and Significant other Lab Data Attestation: I reviewed the patient's lab results. Labs: Laboratory Results - last 24 hr 07/16/22 07/16/22 07/16/22 00:00 00:00 00:00 WBC 16.6 H RBC 3.44 L Hgb 10.7 L Hct 34.8 L MCV 101.2 H MCH 31.1 MCHC 30.7 L RDW Std Deviation 54.4 H RDW Coeff of Robert 14.7 H Plt Count 352 MPV 9.0 Immature Gran % (Auto) 0.700 Neut % (Auto) 84.7 H Lymph % (Auto) 7.2 L Delta % (Auto) 6.8 Eos % (Auto) 0.4 Baso % (Auto) 0.2 Absolute Neuts (auto) 14.1 H Absolute Lymphs (auto) 1.20 Nucleated RBC % 0 PT INR APTT D-Dimer Quant (PE/DVT) Sodium 134 L Potassium 4.4 Chloride 98 Carbon Dioxide 29.0 Anion Gap 7 BUN 24 H Creatinine 0.76 Estim Creat Clear Calc 39.90 Est GFR (MDRD) Af Amer 93 Est GFR (MDRD) Non-Af 77 BUN/Creatinine Ratio 31.5 H Glucose 148 H Calcium 9.5 Magnesium 2.8 H Troponin I High Sens 7 B-Natriuretic Peptide Procalcitonin 07/16/22 07/16/22 07/16/22 00:00 00:50 00:50 WBC RBC Hgb Hct MCV MCH MCHC RDW Std Deviation RDW Coeff of Robert Plt Count MPV Immature Gran % (Auto) Neut % (Auto) Lymph % (Auto) Delta % (Auto) Eos % (Auto) Baso % (Auto) Absolute Neuts (auto) Absolute Lymphs (auto) Nucleated RBC % PT 15.8 H INR 1.3 APTT 33.6 D-Dimer Quant (PE/DVT) 1.94 H* Sodium Potassium Chloride Carbon Dioxide Anion Gap BUN Creatinine Estim Creat Clear Calc Est GFR (MDRD) Af Amer Est GFR (MDRD) Non-Af BUN/Creatinine Ratio Glucose Calcium Magnesium Troponin I High Sens B-Natriuretic Peptide 147.3 H Procalcitonin < 0.04 Radiography Diagnostic Testing: Clinical Impression(s) from Imaging Studies Chest X-Ray 07/16/22 00:10 IMPRESSION: Left basilar airspace disease and moderate effusion. Findings may indicate atelectasis or pneumonia. Electronically Signed: Los Rodriguez MD at 0:43 EST , Chest CTA 07/16/22 01:42 IMPRESSION: 1. Increasing, moderate pericardial effusion. 2. Small pleural effusions and bilateral lower lobe airspace disease. This may indicate atelectasis or pneumonia. 3. No evidence of pulmonary embolism. Electronically Signed: Los Rodriguez MD at 2:44 EST , 1 view chest x-ray as interpreted by the emergency medicine physician reveals a moderate-sized left pleural effusion Discharge Plan Triage Chief Complaint: Chest Pain ED Provider: Dieter Mohan Dx/Rx/DC Orders Clinical Impression: Pericardial effusion, DM2 (diabetes mellitus, type 2), Acute respiratory failure with hypoxia, Pleural effusion, Atrial fibrillation Prescriptions: No Action duloxetine 30 mg capsule,delayed release(DR/EC) 30 mg PO DAILY lisinopril 20 MG tablet 20 mg PO QHS aspirin 81 mg Tablet,Delayed Release (Dr/Ec) 81 mg PO DAILY Linzess 145 mcg Capsule 145 mcg PO DAILY PRN (Reason: Constipation) nitroglycerin 0.4 mg Tablet, Sublingual 0.4 mg sublingual Q5M PRN (Reason: Cardiac/Chest Pain) Qty: 0 0RF acetaminophen 500 mg tablet 1,000 mg PO Q8 tamsulosin 0.4 mg Capsule 0.4 mg PO DAILY@1730 30 Days Qty: 30 0RF lamotrigine 100 mg Tablet 100 mg PO BID 30 Days Qty: 60 0RF melatonin 10 mg Tablet, Sublingual 10 mg PO QHS Qty: 0 0RF furosemide 40 mg tablet 40 mg PO BIDLX 30 Days Qty: 60 0RF potassium chloride [Klor-Con M20] 20 mEq tablet,ER particles/crystals 20 meq PO BIDCM 30 Days Qty: 60 0RF diltiazem HCl 120 mg capsule,extended release 24hr 120 mg PO Q12 30 Days Qty: 60 0RF nystatin [Nyamyc] 100,000 unit/gram Powder 1 applic topical TID 30 Days Qty: 60 0RF Protocol: *Topical Application Instructions APPLICATION INSTRUCTIONS: Apply to abdominal folds levofloxacin 750 mg tablet 750 mg PO DAILY Qty: 5 0RF Primary Care Provider: Nahomy Bettencourt Referrals: Nahomy Bettencourt MD [Primary Care Provider] - Disposition Disposition: Acute Care Hospital Discharge Location: [facility]
--- NOTE | 2022-07-16 07:14 | ED.RN ---
attempted to call pt's ,leroy and the phone kept ringing.isaiah bernard stated she would try later.
--- NOTE | 2022-07-16 07:49 | NURSING ---
Contacted pt's Lyle and made him aware pt is leaving between 8-8:30- he was also able to speak with pt for reassurance, as pt seems apprehensive about transferring stating I want to come home. Explained importance of transferring to tertiary facility. Pt verbalizes understanding at this time.
== END 2022-07-16 08:43 | disposition short-term general hospital (02) ==
PROVIDERS: Emergency Provider Emergency Medicine; PCP Family Medicine; Visit Provider Emergency Medicine
DX: J96.01 Acute respiratory failure with hypoxia (principal); E11.40 Type 2 diabetes mellitus with diabetic neuropathy, unspecified; I48.91 Unspecified atrial fibrillation; Z87.891 Personal history of nicotine dependence; I25.10 Atherosclerotic heart disease of native coronary artery without angina pectoris; I31.39 Other pericardial effusion (noninflammatory); I10 Essential (primary) hypertension; J90 Pleural effusion, not elsewhere classified
CPT/HCPCS: 71045; 71275; 80048; 83735; 83880; 84145; 84484; 85025; 85379; 85610; 85730; 87040; 93005; 96361; 96374; 96375; 99285; J7050; Q9967; A4216; J1940; J2405

== ENCOUNTER 2022-08-29 13:54 | Observation (INO) | payer MEDICARE, OTHER, SELFPAY ==
[2022-08-29 13:55] VITALS: PULSE 78; RESP 16; TEMP 36.6; O2SAT 97; BMI 26.0
[2022-08-29 14:04] VITALS: BP 95/54; PULSE 95; RESP 16; O2SAT 96
--- NOTE | 2022-08-29 14:19 | EKG12_ITS ---
Test Reason : FALL Blood Pressure : / mmHG Vent. Rate : 076 BPM Atrial Rate : 000 BPM P-R Int : 000 ms QRS Dur : 152 ms QT Int : 404 ms P-R-T Axes : 000 -19 147 degrees QTc Int : 454 ms Atrial fibrillation Left bundle branch block Abnormal ECG Confirmed by ARLETTE TERESA ([id number]), telegraph editor MIKE CHAND ([id number]) on 09/01/2022 1:11:56 PM Referred By: Confirmed By:ARLETTE TERESA
--- NOTE | 2022-08-29 14:19 | CT_ITS ---
EXAM: CT SPINE - CERVICAL WITHOUT IV REASON FOR EXAM: Female, 81 years old. NECK PAIN Neck trauma HISTORY: NECK PAIN Neck trauma Individualized dose optimization techniques were used for this CT. TECHNIQUE: Multiplanar images were obtained of the cervical spine. IV contrast was not utilized. COMPARISON: None. FINDINGS: The vertebral bodies do maintain their height. The odontoid process is intact. No pre-vertebral soft tissue swelling is seen. The intravertebral disc height is lost. There are scattered lymph nodes in the neck. There are degenerative changes of the osseous structures. There is bilateral facet arthropathy. There are scattered levels of foraminal stenosis. There are vascular calcifications. There is mild straightening of the normal cervical lordosis. This can suggest neck strain. 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 Osseous fusion of C5-6 and C6-7. CT/Spine Cervical without Contras IMPRESSION: Degenerative changes of the cervical spine. There is mild straightening of the normal cervical lordosis. This can suggest neck strain. Electronically Signed: Los John MD at 15:15 EDT ,
--- NOTE | 2022-08-29 14:19 | CT_ITS ---
STUDY: CT BRAIN WITHOUT CONTRAST REASON FOR EXAM: Female, 81 years old. Head trauma Individualized dose optimization techniques were used for this CT. TECHNIQUE: Transaxial CT imaging of the brain was performed without administration of intravenous contrast material. COMPARISON: 04.24.22 FINDINGS: There are calcifications around the carotid artery. These are noted in the cavernous carotid arteries. Normal calvarium. Normal soft tissues. There is mild cerebral atrophy with widening of the extra-axial spaces and ventricular dilatation. There are areas of decreased attenuation within the white matter tracts of the supratentorial brain, consistent with microvascular disease changes. Normal basal ganglia and thalami. Normal brainstem. There is mild cerebellar atrophy. There is no intracranial hemorrhage. There are no findings of an acute ischemic infarction. Degenerative changes of the mandibular condyles. ASPECTS Score for Acute Strokes: 02/22 CT/Brain/Head without Contrast IMPRESSION: There are no acute findings. Chronic involutional changes of the brain. Electronically Signed: Los John MD at 15:17 EDT ,
[2022-08-29 14:36] LABS: Absolute Lymphocyte Count 1.73 X10^3/uL (0.83-4.51); Absolute Neutrophil Count 5.6 X10^3/uL (2.0-7.7); Basophil# 0.05 X10^3/uL; Basophil% 0.6 % (0-1); Eosinophil# 0.57 X10^3/uL; Eosinophils% 6.6 % (0-5); Hematocrit 41.6 % (37-47); Hemoglobin 12.9 g/dL (12.0-15.0); Lymphocyte # 1.73 X10^3/ul (0.83-4.51); Lymphocyte % 19.9 % (19-41); Mean Corpuscular Hgb 30.6 pg (27.0-32.0); Mean Corpuscular Volume 98.8 fL (81-99); Mean Platelet Vol. 10.4 fl (6.2-12.0); Monocyte% 8.1 % (0-10); NRBC Flagged by Analyzer 0 % (0-5); Neutrophil % 64.3 % (47-70); Platelet Count 340 K/mm3 (150-450); RBC Distribution Width CV 15.5 % (11.6-14.6); RBC Distribution Width SD 55.8 fl (35.1-43.9); Red Blood Count 4.21 M/mm3 (4.2-5.4); White Blood Count 8.7 K/mm3 (4.4-11.0)
[2022-08-29 14:44] LABS: International Normalized Ratio 1.2; Prothrombin Time (Protime)PT. 15.1 SECONDS (11.7-14.9)
[2022-08-29 14:45] LABS: Partial Thromboplast Time 28.5 Seconds (24.1-36.2)
[2022-08-29 14:50] LABS: Anion Gap 7 (5-15); BUN 11 mg/dL (7-18); BUN/Creat Ratio 13.4 RATIO (10-20); Calcium,Total 9.5 mg/dL (8.5-10.1); Chloride 104 mmol/L (98-107); Creatinine, Serum 0.82 mg/dL (0.55-1.02); EST Glomerular Filtration Rate 71 mL/min (>60); Est Glom Filt Rate - Afr Amer 86 mL/min (>60); Estimated Creatinine Clearance 48.66 ml/min; Glucose 103 mg/dL (74-106); Potassium 3.8 mmol/L (3.5-5.1); Sodium Level 137 mmol/L (136-145); Troponin-I HS (w/2H Reflex) 20 pg/mL (3.0-54.0)
--- NOTE | 2022-08-29 15:05 | RAD_ITS ---
STUDY: XR Chest 1 View 08/29/2022 3:08 PM REASON FOR EXAM: Female, 81 years old. CHEST PAIN Syncope COMPARISON: 07/16/2022 TECHNIQUE: XR Chest 1 View FINDINGS: There is no demonstrated pleural abnormality. Elevated right humeral head with eburnation of the acromion suggest a chronic rotator cuff tear. Normal heart size. Normal mediastinum. Normal saad. Prominent appearing increased interstitial lung markings. Normal visualized pulmonary arteries. There is atherosclerotic calcification of the aortic arch with tortuosity. There are diffuse degenerative changes of the visualized thoracic spine. There is degenerative osteoarthritis of the bilateral shoulders. There is no demonstrated abnormality of the visualized soft tissue structures of the upper abdomen. RAD/Chest 1 View (Portable) IMPRESSION: There are no acute findings. Electronically Signed: Los John MD at 15:26 EDT ,
--- NOTE | 2022-08-29 15:05 | RAD_ITS ---
STUDY: XR Shoulder Min 2 Views REASON FOR EXAM: Female, 81 years old. Injury/Pain TECHNIQUE: XR Shoulder Min 2 Views RIGHT COMPARISON: None. FINDINGS: There is moderate degenerative arthrosis of the glenohumeral articulation. There is degenerative arthrosis of the acromioclavicular joint without inferior osseous spur formation. Normal acromion. Elevated right humeral head with eburnation of the acromion suggest a chronic rotator cuff tear. The soft tissue structures are unremarkable. Normal visualized pulmonary apex. RAD/Shoulder min 2 Views IMPRESSION: Elevated right humeral head with eburnation of the acromion suggest a chronic rotator cuff tear. Electronically Signed: Los John MD at 15:27 EDT ,
[2022-08-29] MEDS: 0.9% Normal Saline 1,000 ML 1000 ML IV ×2 (15:11→16:11)
--- NOTE | 2022-08-29 15:46 | ED.VIS.FALL ---
HPI HPI - Fall History of Present Illness Chief Complaint: Fall Informant: patient Occured/Mechanism Occurred: Today Mechanism/Context: Yes same level fall Pain/Injury Location: Right shoulder, head, neck Pain Location: head, neck and upper extremity (Right shoulder) Quality of Pain: Aching Worsened by: Nothing Relieved by: Nothing Associated Symptoms Associated Symptoms: Positive for Loss of consciousness; Negative for Parasthesias, Weakness, Loss of function, Inability to ambulate or Amnesia Length of loss of consciousness: Unknown Narrative Narrative: Patient presents with a fall that occurred today. Patient states he was walking and had a questionable syncopal episode. Patient hit her right shoulder, head, and neck. Patient describes her pain as aching. Patient states her pain is mainly in her head and neck. Patient states it is worse with movement. Patient states nothing helps with it. Patient denies any paresthesias or weakness. Patient does not know how long she was out for. Patient is a poor informant. Patient denies any palpitations. PFSH PFS Medical History Acute postoperative pain of right knee Ambulates with cane Aortic stenosis Arthritis Atherosclerotic heart disease of [place] coronary artery without angina pectoris Back pain Cardiology follow-up encounter Cardiomyopathy Cellulitis of chest wall Chronic constipation Chronic cough Debility Depression Diabetes Diabetes mellitus Diabetic polyneuropathy Dietary restriction DM2 (diabetes mellitus, type 2) Epilepsy Essential hypertension Former smoker H/O cardiac murmur History of atrial fibrillation History of echocardiogram History of left heart catheterization (LHC) (~06/02/22) History of pain when walking History of steroid therapy History of stress test Hx of back injury Hx of vaginal delivery Hypertension Hypertension Inability to ambulate due to knee Injury of back Injury of head and neck Nephrolithiasis Neuropathy Neuropathy, diabetic Paroxysmal atrial fibrillation Pericardial effusion Vitamin D deficiency Wears glasses Home Medications duloxetine 30 mg capsule,delayed release 30 mg PO DAILY NEUROPATHY 09/22/20 [History Last Taken 08/28/22] aspirin 81 mg tablet,delayed release 81 mg PO DAILY HEART HEALTH 06/09/22 [History Last Taken 08/29/22] nitroglycerin 0.4 mg sublingual tablet 0.4 mg sublingual Q5M PRN Cardiac/Chest Pain #0 tabs 06/11/22 [Rx Last Taken Unknown] lamotrigine 100 mg tablet 100 mg PO BID 30 days #60 tabs 06/29/22 [Rx Last Taken 08/29/22] potassium chloride 20 mEq tablet,extended release(part/cryst) (Klor-Con M) 20 meq PO BIDCM Supplement 30 days #60 tabs 06/29/22 [Rx Last Taken 08/29/22] Lactobacillus rhamnosus GG 10 billion cell-inulin 200 mg capsule ([facility] [place] [employer] [facility]) 1 cap PO DAILY PRN GUT HEALTH 08/10/22 [History Last Taken Unknown] acetaminophen 325 mg tablet (Tylenol) 650 mg PO ONCE PRN pain 08/10/22 [History Last Taken Unknown] cyanocobalamin (vitamin B-12) 1,000 mcg tablet (Vitamin B-12) 1,000 mcg PO DAILY 08/10/22 [History Last Taken 08/29/22] famotidine 40 mg tablet 40 mg PO BID 08/10/22 [History Last Taken 08/29/22] furosemide 40 mg tablet 40 mg PO DAILY Diuretic 08/10/22 [History Last Taken 08/29/22] melatonin 3 mg tablet 3 mg PO HS 08/10/22 [History Last Taken Unknown] metformin 500 mg tablet 500 mg PO BID 08/10/22 [History Last Taken Unknown] ondansetron 4 mg disintegrating tablet 4 mg PO Q6H PRN nausea and vomiting 08/10/22 [History Last Taken Unknown] apixaban 2.5 mg tablet (Eliquis) 2.5 mg PO BID #60 tabs 08/27/22 [Rx Last Taken 08/29/22] losartan 25 mg tablet 25 mg PO DAILY #90 tabs 08/27/22 [Rx Last Taken 08/29/22] metoprolol succinate 25 mg tablet,extended release 24 hr 25 mg PO DAILY #90 tabs 08/27/22 [Rx Last Taken 08/28/22] diltiazem HCl 120 mg capsule,extended release 24 hr (Cartia XT) 120 mg PO BID . 08/29/22 [History Last Taken 08/29/22] Allergy/AdvReac Type Severity Reaction Status Date / Time bacitracin Allergy Rash Verified 08/29/22 13:54 [From Neosporin ([id number])] bacitracin zinc Allergy Rash Verified 08/29/22 13:54 [From Neosporin ([id number])] levetiracetam Allergy Other Verified 08/29/22 13:54 neomycin sulfate Allergy Rash Verified 08/29/22 13:54 [From Neosporin ([id number])] nickel Allergy Other Verified 08/29/22 13:54 polymyxin B Allergy Rash Verified 08/29/22 13:54 [From Neosporin ([id number])] sulfamethoxazole Allergy Itching Verified 08/29/22 13:54 [From Bactrim] trimethoprim [From Bactrim] Allergy Itching Verified 08/29/22 13:54 codeine AdvReac Nausea Verified 08/29/22 13:54 milk AdvReac Nausea/Vom/ Verified 08/29/22 13:54 Diarrhea Family History Father No problems noted. Mother No problems noted. Surgical History Amputated toe of right foot Deviated septum History of appendectomy History of cholecystectomy History of hysterectomy History of neck surgery History of tonsillectomy History of total right knee replacement (TKR) Hx of cystoscopy Hx of fusion of cervical spine S/P total knee arthroplasty Social History household members: spouse Smoking Status: Former smoker alcohol intake: never substance use type: does not use caffeine: No what type of physical activity do you participate in: other details: physical therapy seatbelt use: always do you feel safe at home: Yes ROS ROS ED Constitutional Constitutional ED: Denies chills or fever(s) Eyes Eyes: Denies blurry vision or change in vision ENT ENT ED: Denies rhinorrhea or sore throat Cardiovascular Cardiovascular: Denies chest pain or palpitations Respiratory/Chest Respiratory/Chest: Denies cough or dyspnea Gastrointestinal Gastrointestinal: Denies nausea or vomiting Genitourinary Genitourinary ED: Denies dysuria or hematuria Musculoskeletal Musculoskeletal: Reports neck pain; Denies back pain Integumentary Denies abscess or rash Neurologic Neurologic: Reports headache(s); Denies weakness Allergic/Immunologic Allergic/Immunologic ED: Denies mouth swelling or urticaria EXAM Physical Exam Const Vital Signs: 08/29/22 13:55 08/29/22 14:04 08/29/22 14:05 Temperature 97.8 F Temperature Source Temporal Pulse Rate 78 95 Respiratory Rate 16 16 Respiratory Effort Normal Respiratory Depth Normal Respiratory Pattern Normal Blood Pressure 95/54 L Blood Pressure Mean 67 Pulse Ox 97 96 Oxygen Delivery Method Room Air Room Air Room Air 08/29/22 16:10 Temperature Temperature Source Pulse Rate 81 Respiratory Rate 16 Respiratory Effort Respiratory Depth Respiratory Pattern Blood Pressure 105/55 L Blood Pressure Mean 71 Pulse Ox 96 Oxygen Delivery Method Room Air Positive well nourished and well developed General Appearance ED: well developed and NAD HEENT Reports moist mucous membranes HEENT Narrative: There is tenderness over the right occipital area. There is no edema or ecchymosis. There is no bony crepitance or step-off. There is no bleeding noted. There are no scalp lacerations. There are no abrasions noted. Neck supple and no JVD Neck Narrative: There is tenderness over the cervical paraspinal muscles. There is mild midline tenderness. There is no bony crepitance or step-off. Range of motion was limited in all motions of the cervical spine secondary to pain. Resp normal respiratory effort and clear to auscultation bilaterally Cardio regular rate Rhythm: abnormal rhythm irregularly irregular GI normal to inspection, nondistended, normoactive bowel sounds and non-tender Palpation: soft Extremity normal to inspection Extremity Narrative: There is diffuse tenderness over the right shoulder. There is no deformity noted. Range of motion was limited in all motions secondary to pain. Radial pulses are equal bilateral. Sensation was intact to light touch bilaterally in the upper extremities. Strength is 5/5 in the radial, median, and ulnar areas. General Extremety ED: Negative for edema or tenderness General Extremity: Negative for edema Neuro CN's II-XII intact bilaterally, moves all extremities, no focal motor deficits and no sensory deficits noted Sensorium / Orientation: alert Motor Exam: strength 5/5 throughout Psych mental status grossly normal Skin no rashes or lesions noted MDM MDM MDM Narrative Medical decision making narrative: Differential diagnosis includes cardiac dysrhythmia, syncope, stroke, intracranial bleeding, cervical spine fracture, right shoulder fracture, right shoulder dislocation, electrolyte abnormality, urinary tract infection. EKG will be obtained to assess for cardiac dysrhythmia and cardiac ischemia. Chest x-ray will be obtained to assess for pneumonia and pneumothorax. Right shoulder x-ray will be obtained to assess for shoulder fracture and dislocation. CT scan of the brain will be obtained to assess for intracranial bleeding. CT scan of the cervical spine will be obtained to assess for cervical spine fracture. CBC will be obtained to assess for leukocytosis and anemia. Basic metabolic profile will be obtained to assess for electrolyte abnormality and renal function. Urinalysis will be obtained to assess for urinary tract infection. PT with INR and PTT will be obtained to assess for coagulopathy. High-sensitivity troponin will be obtained to assess for cardiac ischemia. Dilantin level will be obtained to assess for therapeutic effects of antiepileptic medication. Lab Data Attestation: I reviewed the patient's lab results. Lab results narrative: CBC was reviewed and was within normal limits. PT was INR and PTT were reviewed. Pro time was 15.1, INR was 1.2, and PTT was normal at 28.5. Basic metabolic profile was reviewed and was within normal limits. High-sensitivity troponin was reviewed and was normal. Urinalysis was reviewed. There is no evidence of urinary tract infection or hematuria. Dilantin level was reviewed and was low at 0.5. Labs: Laboratory Results - last 24 hr 08/29/22 08/29/22 08/29/22 14:10 14:10 14:10 WBC 8.7 RBC 4.21 Hgb 12.9 Hct 41.6 MCV 98.8 MCH 30.6 MCHC 31.0 L RDW Std Deviation 55.8 H RDW Coeff of Robert 15.5 H Plt Count 340 MPV 10.4 Immature Gran % (Auto) 0.500 Neut % (Auto) 64.3 Lymph % (Auto) 19.9 Johnson % (Auto) 8.1 Eos % (Auto) 6.6 H Baso % (Auto) 0.6 Absolute Neuts (auto) 5.6 Absolute Lymphs (auto) 1.73 Nucleated RBC % 0 PT 15.1 H INR 1.2 APTT 28.5 Sodium 137 Potassium 3.8 Chloride 104 Carbon Dioxide 26.0 Anion Gap 7 BUN 11 Creatinine 0.82 Estim Creat Clear Calc 48.66 Est GFR (MDRD) Af Amer 86 Est GFR (MDRD) Non-Af 71 BUN/Creatinine Ratio 13.4 Glucose 103 Calcium 9.5 Troponin I High Sens 20 Urine Color Urine Clarity Urine pH Ur Specific [place] Urine Protein Urine Glucose (UA) Urine Ketones Urine Occult Blood Urine Nitrite Urine Bilirubin Urine Urobilinogen Ur Leukocyte Esterase Urine RBC Urine WBC Ur Squamous Epith Cells Calcium Oxalate Crystal Urine Bacteria Hyaline Casts Urine Mucus Phenytoin 08/29/22 08/29/22 14:10 16:00 WBC RBC Hgb Hct MCV MCH MCHC RDW Std Deviation RDW Coeff of Robert Plt Count MPV Immature Gran % (Auto) Neut % (Auto) Lymph % (Auto) Johnson % (Auto) Eos % (Auto) Baso % (Auto) Absolute Neuts (auto) Absolute Lymphs (auto) Nucleated RBC % PT INR APTT Sodium Potassium Chloride Carbon Dioxide Anion Gap BUN Creatinine Estim Creat Clear Calc Est GFR (MDRD) Af Amer Est GFR (MDRD) Non-Af BUN/Creatinine Ratio Glucose Calcium Troponin I High Sens Urine Color Yellow Urine Clarity Clear Urine pH 5.0 Ur Specific [place] 1.020 Urine Protein 15 H Urine Glucose (UA) Normal Urine Ketones Negative Urine Occult Blood 10 H Urine Nitrite Negative Urine Bilirubin Negative Urine Urobilinogen Normal Ur Leukocyte Esterase 25 H Urine RBC 0 SEEN Urine WBC 0-5 SEEN Ur Squamous Epith Cells 0 SEEN Calcium Oxalate Crystal 1+ Urine Bacteria 0 SEEN Hyaline Casts 0-5 SEEN Urine Mucus 0 SEEN Phenytoin 0.5 L Radiography Chest X-Ray - ED: 1 View, Read by ED Physician, Read by Radiologist and No Acute Disease Diagnostic Testing: Clinical Impression(s) from Imaging Studies Brain CT 08/29/22 14:19 IMPRESSION: There are no acute findings. Chronic involutional changes of the brain. Electronically Signed: Los John MD at 15:17 EDT , Cervical Spine CT 08/29/22 14:19 IMPRESSION: Degenerative changes of the cervical spine. There is mild straightening of the normal cervical lordosis. This can suggest neck strain. Electronically Signed: Los John MD at 15:15 EDT , Chest X-Ray 08/29/22 15:05 IMPRESSION: There are no acute findings. Electronically Signed: Los John MD at 15:26 EDT , Shoulder X-Ray 08/29/22 15:05 IMPRESSION: Elevated right humeral head with eburnation of the acromion suggest a chronic rotator cuff tear. Electronically Signed: Los John MD at 15:27 EDT , CT scan of the brain was obtained. There is no acute intracranial abnormality. There are chronic involutional changes. This was interpreted by the radiologist and was also independently reviewed by myself. CT scan of the cervical spine was obtained. There are degenerative changes noted. There is no acute fracture or dislocation. This was interpreted by the radiologist and was also independently reviewed by myself. Portable 1 view chest x-ray was obtained. On my independent interpretation, lung garcia are clear. There is normal cardiac silhouette. Bony thorax is normal. There is no acute process noted. Radiologist also interpreted the x-ray and agrees. X-rays of the right shoulder were obtained. There are 2 views. On my independent interpretation, there is no acute fracture or dislocation. Radiologist also interpreted the x-ray and noted elevated right humeral head suggesting chronic rotator cuff tear. EKG Initial EKG: Attestation: I personally reviewed and interpreted this EKG as follows: Interpretation: Atrial Flutter (76), LBBB and Non-Specific ST Changes Comments: EKG was obtained. On my independent interpretation, it shows atrial fibrillation with a rate of 76. QRS interval is prolonged at 152 ms. QTc interval was 454 ms. There is borderline left axis deviation at -19. There is a left bundle branch block pattern noted. This was unchanged compared to previous EKG dated 07/18/2022 Prior EKG tracings: available for review Prior: Unchanged (07/18/2022) Treatment and Re-Evaluation Narrative: Patient had a transient episode of hypotension here in the emergency department. Patient was given IV fluids and is improved. Patient and were advised of her findings. Case was discussed with the hospitalist for admission. He will admit the patient to his service. Patient and understood and were agreeable with the plan. All questions were answered. Discharge Plan Dx/Rx/DC Orders Clinical Impression: Syncope and collapse, Debility, Seizure disorder, Contusion of right shoulder, Transient hypotension Disposition Disposition: Acute Care Hospital [facility] Discharge Date/Time: 08/29/22 18:05
[2022-08-29 16:05] LABS: Bacteria 0 SEEN /hpf (None Seen); Mucous, Urine 0 SEEN /hpf (<or=2+); Red Blood Cells-Urine 0 SEEN /hpf (0-5); Squamous Epithelial Cells - UA 0 SEEN /hpf (5-10)
[2022-08-29 16:10] VITALS: BP 105/55; PULSE 81; RESP 16; O2SAT 96
[2022-08-29] MEDS: fentaNYL 100 MCG/2 ML Ampul 25 MCG IV (16:11)
[2022-08-29 16:15] LABS: Color, Urine Yellow (Yellow); Glucose, Dipstick Normal (Normal); Ketone-Dipstick Negative (Negative); Leukocyte Esterase-Dipstick 25 /ul (Negative); Nitrite-Dipstick Negative (Negative); Occult Blood-Urine 10 /ul (Negative); Protein-Dipstick 15 mg/dl (Negative); Urine Bilirubin Dipstick Negative (Negative); Urine Clarity Clear (Clear); Urine Urobilinogen Normal (Normal)
[2022-08-29 16:22] LABS: Phenytoin (Dilantin) Level 0.5 mL (10.0-20.0)
[2022-08-29 16:27] LABS: Reflex Troponin-HS? (from REC) Y
[2022-08-29 16:31] LABS: Calcium Oxalate Crystals Ur 1+ /hpf (<or=2+); Hyaline Cast 0-5 SEEN /lpf (0-5); White Blood Cells 0-5 SEEN /hpf (0-5)
[2022-08-29 17:50] VITALS: BP 97/67; PULSE 68; RESP 16; TEMP 36.6; O2SAT 97
[2022-08-29 18:08] LABS: Troponin-I HS 23 pg/mL (3.0-54.0)
[2022-08-29 18:22] VITALS: BMI 25.2
[2022-08-29 18:30] VITALS: BP 118/70; PULSE 70; RESP 18; TEMP 36.6; O2SAT 97
--- NOTE | 2022-08-29 18:39 | PCM.HP.STD ---
HPI - General General Date of Admission: 08/29/22 HPI Narrative MAGDY MIRAMONTES, is a 81 F who presents to the hospital with weakness and fall. She was diagnosed with Alzheimer's about a year ago unfortunate on my exam it was after she was given pain medication in the ER so she was slightly arousable but noncommunicative so most of the history was obtained from the and the ED physicians charting. The states that she was diagnosed with Alzheimer's about a year ago and then she had a history of epilepsy as a child which resolved but then she had 2 or 3 seizures back in May and was started on antiseizure occasion. She was sent to a care home at that time and then was found to be short of breath and according to him had fluid around her heart had to be transferred to another hospital for procedure to drain the fluid and then she was brought back to a care home which she was discharged from at 11 AM on Tuesday. He states that while at the care home she was ambulating just fine with her walker and then when she got home she had her first fall around 3 in the afternoon when she was trying to get in the bed but he says that she approached the bed at an angle and slid off at that time she did not have an injury. She then woke up in the middle the night around 3 AM and had another fall that was also without any injury. And then this afternoon she had a fall and he found her slumped over on the side of a chair, he did not endorse any loss of consciousness and he did not witness any seizure-like activity but at that time she was complaining of shoulder pain and right arm pain. In the ER CT of the brain was unremarkable, CT of the C-spine was normal, and shoulder x-ray was negative for fracture. Chest x-ray did not show any infectious process and neither did her UA. [facility] Medical History Acute postoperative pain of right knee Ambulates with cane Aortic stenosis Arthritis Atherosclerotic heart disease of [place] coronary artery without angina pectoris Back pain Cardiology follow-up encounter Cardiomyopathy Cellulitis of chest wall Chronic constipation Chronic cough Debility Depression Diabetes Diabetes mellitus Diabetic polyneuropathy Dietary restriction DM2 (diabetes mellitus, type 2) Epilepsy Essential hypertension Former smoker H/O cardiac murmur History of atrial fibrillation History of echocardiogram History of left heart catheterization (LHC) (~06/02/22) History of pain when walking History of steroid therapy History of stress test Hx of back injury Hx of vaginal delivery Hypertension Hypertension Inability to ambulate due to knee Injury of back Injury of head and neck Nephrolithiasis Neuropathy Neuropathy, diabetic Paroxysmal atrial fibrillation Pericardial effusion Vitamin D deficiency Wears glasses Home Medications duloxetine 30 mg capsule,delayed release 30 mg PO DAILY NEUROPATHY 09/22/20 [History Last Taken 08/28/22] aspirin 81 mg tablet,delayed release 81 mg PO DAILY HEART HEALTH 06/09/22 [History Last Taken 08/29/22] nitroglycerin 0.4 mg sublingual tablet 0.4 mg sublingual Q5M PRN Cardiac/Chest Pain #0 tabs 06/11/22 [Rx Last Taken Unknown] lamotrigine 100 mg tablet 100 mg PO BID 30 days #60 tabs 06/29/22 [Rx Last Taken 08/29/22] potassium chloride 20 mEq tablet,extended release(part/cryst) (Klor-Con M) 20 meq PO BIDCM Supplement 30 days #60 tabs 06/29/22 [Rx Last Taken 08/29/22] Lactobacillus rhamnosus GG 10 billion cell-inulin 200 mg capsule (SEVENROOMS) 1 cap PO DAILY PRN G[facility] 08/10/22 [History Last Taken Unknown] acetaminophen 325 mg tablet (Tylenol) 650 mg PO ONCE PRN pain 08/10/22 [History Last Taken Unknown] cyanocobalamin (vitamin B-12) 1,000 mcg tablet (Vitamin B-12) 1,000 mcg PO DAILY 08/10/22 [History Last Taken 08/29/22] famotidine 40 mg tablet 40 mg PO BID 08/10/22 [History Last Taken 08/29/22] furosemide 40 mg tablet 40 mg PO DAILY Diuretic 08/10/22 [History Last Taken 08/29/22] melatonin 3 mg tablet 3 mg PO HS 08/10/22 [History Last Taken Unknown] metformin 500 mg tablet 500 mg PO BID 08/10/22 [History Last Taken Unknown] ondansetron 4 mg disintegrating tablet 4 mg PO Q6H PRN nausea and vomiting 08/10/22 [History Last Taken Unknown] apixaban 2.5 mg tablet (Eliquis) 2.5 mg PO BID #60 tabs 08/27/22 [Rx Last Taken 08/29/22] losartan 25 mg tablet 25 mg PO DAILY #90 tabs 08/27/22 [Rx Last Taken 08/29/22] metoprolol succinate 25 mg tablet,extended release 24 hr 25 mg PO DAILY #90 tabs 08/27/22 [Rx Last Taken 08/28/22] diltiazem HCl 120 mg capsule,extended release 24 hr (Cartia XT) 120 mg PO BID . 08/29/22 [History Last Taken 08/29/22] Allergy/AdvReac Type Severity Reaction Status Date / Time bacitracin Allergy Rash Verified 08/29/22 13:54 [From Neosporin ([id number])] bacitracin zinc Allergy Rash Verified 08/29/22 13:54 [From Neosporin ([id number]-[id number])] levetiracetam Allergy Other Verified 08/29/22 13:54 neomycin sulfate Allergy Rash Verified 08/29/22 13:54 [From Neosporin ([id number])] nickel Allergy Other Verified 08/29/22 13:54 polymyxin B Allergy Rash Verified 08/29/22 13:54 [From Neosporin ([id number])] sulfamethoxazole Allergy Itching Verified 08/29/22 13:54 [From Bactrim] trimethoprim [From Bactrim] Allergy Itching Verified 08/29/22 13:54 codeine AdvReac Nausea Verified 08/29/22 13:54 milk AdvReac Nausea/Vom/ Verified 08/29/22 13:54 Diarrhea Family History Father No problems noted. Mother No problems noted. Surgical History Amputated toe of right foot Deviated septum History of appendectomy History of cholecystectomy History of hysterectomy History of neck surgery History of tonsillectomy History of total right knee replacement (TKR) Hx of cystoscopy Hx of fusion of cervical spine S/P total knee arthroplasty Social History household members: spouse Smoking Status: Former smoker alcohol intake: never substance use type: does not use caffeine: No what type of physical activity do you participate in: other details: physical therapy seatbelt use: always do you feel safe at home: Yes ROS Review of Systems ROS Unobtainable: due to encephalopathy Vital Signs Vital Signs Vital Signs: 08/29/22 13:55 08/29/22 14:04 08/29/22 14:05 Temperature 97.8 F Temperature Source Temporal Pulse Rate 78 95 Respiratory Rate 16 16 Respiratory Effort Normal Respiratory Depth Normal Respiratory Pattern Normal Blood Pressure 95/54 L Blood Pressure Mean 67 Pulse Ox 97 96 Oxygen Delivery Method Room Air Room Air Room Air 08/29/22 16:10 08/29/22 17:50 Temperature 97.8 F Temperature Source Temporal Pulse Rate 81 68 Respiratory Rate 16 16 Respiratory Effort Respiratory Depth Respiratory Pattern Blood Pressure 105/55 L 97/67 Blood Pressure Mean 71 77 Pulse Ox 96 97 Oxygen Delivery Method Room Air Room Air Weight Weight: 161 lb 9.581 oz Body Mass Index (BMI) 25.2 Physical Exam Narrative General: Somnolent from narcotic arousable but does not stay awake, Cooperative, No apparent distress HEENT: Atraumatic, PERRLA, EOMI, Normocephalic Oral: Moist Mucosa Neck: Supple, No JVD Lungs: Diminished, Normal air movement, No rhonchi, No wheeze, No rales Cardiovascular: Regular rate, Regular Rhythm, Normal S1, Normal S2, murmurs Abdomen: Soft, Non Tender, Non-Distended, No Hepato-splenomegaly Extremities: No edema, Capillary Refill Less than 3 Seconds Skin: No rashes, No breakdown Musculoskeletal: No Tenderness to Palpation of Joints or Extremities Neurological: Cannot stay awake long enough to participate in the exam Psych/Mental Status: Flat affect Results Lab / Micro Data Result Diagrams: 08/29/22 14:10 08/29/22 14:10 Labs: Laboratory Results - last 24 hr 08/29/22 14:10: WBC 8.7, RBC 4.21, Hgb 12.9, Hct 41.6, MCV 98.8, MCH 30.6, MCHC 31.0 L, RDW Std Deviation 55.8 H, RDW Coeff of Robert 15.5 H, Plt Count 340, MPV 10.4, Immature Gran % (Auto) 0.500, Neut % (Auto) 64.3, Lymph % (Auto) 19.9, [place] % (Auto) 8.1, Eos % (Auto) 6.6 H, Baso % (Auto) 0.6, Absolute Neuts (auto) 5.6, Absolute Lymphs (auto) 1.73, Nucleated RBC % 0 08/29/22 14:10: PT 15.1 H, INR 1.2, APTT 28.5 08/29/22 14:10: Sodium 137, Potassium 3.8, Chloride 104, Carbon Dioxide 26.0, Anion Gap 7, BUN 11, Creatinine 0.82, Estim Creat Clear Calc 48.66, Est GFR (MDRD) Af Amer 86, Est GFR (MDRD) Non-Af 71, BUN/Creatinine Ratio 13.4, Glucose 103, Calcium 9.5, Troponin I High Sens 20 08/29/22 14:10: Phenytoin 0.5 L 08/29/22 16:00: Urine Color Yellow, Urine Clarity Clear, Urine pH 5.0, Ur Specific [place] 1.020, Urine Protein 15 H, Urine Glucose (UA) Normal, Urine Ketones Negative, Urine Occult Blood 10 H, Urine Nitrite Negative, Urine Bilirubin Negative, Urine Urobilinogen Normal, Ur Leukocyte Esterase 25 H, Urine RBC 0 SEEN, Urine WBC 0-5 SEEN, Ur Squamous Epith Cells 0 SEEN, Calcium Oxalate Crystal 1+, Urine Bacteria 0 SEEN, Hyaline Casts 0-5 SEEN, Urine Mucus 0 SEEN 08/29/22 17:35: Troponin I High Sens [address] 08/29/22 14:19 IMPRESSION: There are no acute findings. Chronic involutional changes of the brain. Electronically Signed: Los John MD at 15:17 EDT , Cervical Spine CT 08/29/22 14:19 IMPRESSION: Degenerative changes of the cervical spine. There is mild straightening of the normal cervical lordosis. This can suggest neck strain. Electronically Signed: Los John MD at 15:15 EDT , Chest X-Ray 08/29/22 15:05 IMPRESSION: There are no acute findings. Electronically Signed: Los John MD at 15:26 EDT , Shoulder X-Ray 08/29/22 15:05 IMPRESSION: Elevated right humeral head with eburnation of the acromion suggest a chronic rotator cuff tear. Electronically Signed: Los John MD at 15:27 EDT , Assessment & Plan Assessment/Plan (1) Contusion of right shoulder: (2) Debility: PLAN: Plan 1. Debility and weakness right shoulder pain without a fracture/Alzheimer's ? Unclear as to the etiology of her 3 falls in the last 24 hours whether it is weakness versus mechanical issues using the walker in the house ? Unfortunately she received a narcotic which made her very somnolent so exam was limited ? states that she did not appear to have a seizure, and prior to the narcotic being given her mental status was at baseline for her given her Alzheimer's ? PT/OT for evaluation ? We will consult case management for discharge planning ? I did have a 20-minute discussion on advance care planning in terms of prognosis of her Alzheimer's and its progression and whether or not he would feel like there is a benefit from palliative care. He thinks there would be and is open to being referred to palliative care. 2. HTN/HLD/paroxysmal A-fib/history of pericardial effusion ? Can resume her home blood pressure medications but can hold for systolics less than 100 ? Continue with her Eliquis 3. DM2 ? We will hold her home metformin and place her on a sliding scale insulin ? Accu-Cheks ACHS ? We will make adjustments as necessary 4. GERD ? Stable ? Continue with her Pepcid 5. Anxiety/depression ? Stable ? Continue with her home medications 6. Seizure disorder ? Stable ? Continue with Lamictal DVT: Eliquis Charges/Coding Visit Charges Inpatient E&M: 22497 Init Hosp L2 Procedures Hospitalists Procedures: 85529 Advncd Care Plan 30 Min
[2022-08-29 20:23] VITALS: BP 122/63; PULSE 73; RESP 16; TEMP 36.6; O2SAT 98
[2022-08-29] MEDS: Menthol/Lanolin/Calamine/Znox 113 GM Tube 1 APPLIC TOPICAL (20:31)
[2022-08-29] MEDS: APIXABAN 2.5 MG TABLET (WCH) PO (20:32)
[2022-08-29] MEDS: dilTIAZem CD 120 MG Capsule PO (20:32)
[2022-08-29] MEDS: Famotidine 20 MG Tablet 40 MG PO (20:33)
[2022-08-29] MEDS: lamoTRIgine 100 MG Tablet PO (20:33)
[2022-08-29] MEDS: MELATONIN 3 MG TABLET PO (20:40)
[2022-08-29 22:40] LABS: Bedside Glucose 95 mg/dL (74-106)
[2022-08-30 05:53] LABS: Absolute Lymphocyte Count 1.42 X10^3/uL (0.83-4.51); Absolute Neutrophil Count 4.8 X10^3/uL (2.0-7.7); Basophil# 0.05 X10^3/uL; Basophil% 0.7 % (0-1); Eosinophil# 0.58 X10^3/uL; Eosinophils% 7.8 % (0-5); Hematocrit 38.3 % (37-47); Hemoglobin 11.8 g/dL (12.0-15.0); Lymphocyte # 1.42 X10^3/ul (0.83-4.51); Lymphocyte % 19.1 % (19-41); Mean Corp Hgb Conc 30.8 g/dL (32-36); Mean Corpuscular Hgb 31.1 pg (27.0-32.0); Mean Corpuscular Volume 100.8 fL (81-99); Mean Platelet Vol. 9.8 fl (6.2-12.0); Monocyte# 0.61 X10^3/uL; Monocyte% 8.2 % (0-10); NRBC Flagged by Analyzer 0 % (0-5); Neutrophil # 4.75 X10^3/uL (2.7-7.7); Neutrophil % 63.8 % (47-70); Platelet Count 284 K/mm3 (150-450); RBC Distribution Width CV 15.7 % (11.6-14.6); White Blood Count 7.4 K/mm3 (4.4-11.0)
[2022-08-30 06:03] VITALS: BP 128/52; PULSE 65; RESP 17; TEMP 36.3; O2SAT 93
[2022-08-30] MEDS: Menthol/Lanolin/Calamine/Znox 113 GM Tube 1 APPLIC TOPICAL ×2 (06:06→13:24)
[2022-08-30 06:56] LABS: Bedside Glucose 97 mg/dL (74-106)
[2022-08-30 06:59] LABS: Anion Gap 5 (5-15); BUN 10 mg/dL (7-18); BUN/Creat Ratio 16.1 RATIO (10-20); Chloride 106 mmol/L (98-107); Creatinine, Serum 0.62 mg/dL (0.55-1.02); EST Glomerular Filtration Rate 98 mL/min (>60); Est Glom Filt Rate - Afr Amer 118 mL/min (>60); Estimated Creatinine Clearance 41.45 ml/min; Glucose 94 mg/dL (74-106); Potassium 3.6 mmol/L (3.5-5.1); Sodium Level 139 mmol/L (136-145)
--- NOTE | 2022-08-30 07:44 | PN.HOSP_ITS ---
Reason for Visit Reason for Visit: Diagnoses Other malaise (08/29/22) Contusion of right shoulder, initial encounter (08/29/22) Subjective Subjective Feels weak. Has had tremors since her last seizure. notes pt has had hypophonia chronically at times. Objective Data Objective Data Vital Signs: Vital Signs Temp Pulse Resp BP Pulse Ox O2 Del Method 36.3 C L 65 17 128/52 H 93 Room Air 08/30/22 06:03 08/30/22 06:03 08/30/22 06:03 08/30/22 06:03 08/30/22 06:03 08/30/22 06:03 Oxygen Delivery Method Room Air Weight: 73.3 kg Body Mass Index (BMI) 25.2 Intake & Output: Intake and Output for Last 24 Hours 08/28/22 08/29/22 08/30/22 23:59 23:59 23:59 Intake Total 1999 / 2250 450 / 450 Balance 1999 / 2250 450 / 450 Lab / Micro Data Result Diagrams: 08/30/22 05:41 08/30/22 05:41 Labs: Laboratory Results - last 24 hr 08/29/22 14:10: WBC 8.7, RBC 4.21, Hgb 12.9, Hct 41.6, MCV 98.8, MCH 30.6, MCHC 31.0 L, RDW Std Deviation 55.8 H, RDW Coeff of Robert 15.5 H, Plt Count 340, MPV 10.4, Immature Gran % (Auto) 0.500, Neut % (Auto) 64.3, Lymph % (Auto) 19.9, [place] % (Auto) 8.1, Eos % (Auto) 6.6 H, Baso % (Auto) 0.6, Absolute Neuts (auto) 5.6, Absolute Lymphs (auto) 1.73, Nucleated RBC % 0 08/29/22 14:10: PT 15.1 H, INR 1.2, APTT 28.5 08/29/22 14:10: Sodium 137, Potassium 3.8, Chloride 104, Carbon Dioxide 26.0, Anion Gap 7, BUN 11, Creatinine 0.82, Estim Creat Clear Calc 48.66, Est GFR (MDRD) Af Amer 86, Est GFR (MDRD) Non-Af 71, BUN/Creatinine Ratio 13.4, Glucose 103, Calcium 9.5, Troponin I High Sens 20 08/29/22 14:10: Phenytoin 0.5 L 08/29/22 16:00: Urine Color Yellow, Urine Clarity Clear, Urine pH 5.0, Ur Specific [place] 1.020, Urine Protein 15 H, Urine Glucose (UA) Normal, Urine Ketones Negative, Urine Occult Blood 10 H, Urine Nitrite Negative, Urine Bilirubin Negative, Urine Urobilinogen Normal, Ur Leukocyte Esterase 25 H, Urine RBC 0 SEEN, Urine WBC 0-5 SEEN, Ur Squamous Epith Cells 0 SEEN, Calcium Oxalate Crystal 1+, Urine Bacteria 0 SEEN, Hyaline Casts 0-5 SEEN, Urine Mucus 0 SEEN 08/29/22 17:35: Troponin I High Sens 08/29/22 20:28: POC Glucose 95 08/30/22 05:41: WBC 7.4, RBC 3.80 L, Hgb 11.8 L, Hct 38.3, MCV 100.8 H, MCH 31.1, MCHC 30.8 L, RDW Std Deviation 59.0 H, RDW Coeff of Robert 15.7 H, Plt Count 284, MPV 9.8, Immature Gran % (Auto) 0.400, Neut % (Auto) 63.8, Lymph % (Auto) 19.1, [place] % (Auto) 8.2, Eos % (Auto) 7.8 H, Baso % (Auto) 0.7, Absolute Neuts (auto) 4.8, Absolute Lymphs (auto) 1.42, Nucleated RBC % 0 08/30/22 05:41: Sodium 139, Potassium 3.6, Chloride 106, Carbon Dioxide 28.0, Anion Gap 5, BUN 10, Creatinine 0.62, Estim Creat Clear Calc 41.45, Est GFR (MDRD) Af Amer 118, Est GFR (MDRD) Non-Af 98, BUN/Creatinine Ratio 16.1, Glucose 94, Calcium 9.0 08/30/22 06:05: POC Glucose 97 Radiography Diagnostic Testing: Radiology Impression Brain CT 08/29/22 14:19 IMPRESSION: There are no acute findings. Chronic involutional changes of the brain. Electronically Signed: Los John MD at 15:17 EDT , Cervical Spine CT 08/29/22 14:19 IMPRESSION: Degenerative changes of the cervical spine. There is mild straightening of the normal cervical lordosis. This can suggest neck strain. Electronically Signed: Los John MD at 15:15 EDT , Chest X-Ray 08/29/22 15:05 IMPRESSION: There are no acute findings. Electronically Signed: Los John MD at 15:26 EDT , Shoulder X-Ray 08/29/22 15:05 IMPRESSION: Elevated right humeral head with eburnation of the acromion suggest a chronic rotator cuff tear. Electronically Signed: Los John MD at 15:27 EDT , Physical Exam Const alert and no apparent distress HEENT head/scalp atraumatic Eyes EOMs intact bilaterally Resp normal respiratory effort, no retractions, no use of accessory muscles and clear to auscultation bilaterally Cardio regular rate, regular rhythm, S1 normal heart sound and S2 normal heart sound GI normal to inspection, nondistended, normoactive bowel sounds, soft to palpation, non-tender and non-distended Extremity normal to inspection and full ROM Neuro oriented x3, moves all extremities and no focal motor deficits Neuro Narrative: UE tremors Assessment & Plan Assessment/Plan (1) Debility: PLAN: Unclear as to the etiology of her 3 falls in the last 24 hours whether it is weakness versus mechanical issues using the walker in the house PT/OT for evaluation We will consult case management for discharge planning palliative care consult (2) Contusion of right shoulder: PLAN: Xray suggesting chronic rotator cuff tear (3) Tremor: PLAN: Chronic Concern is for Parkinson's disease v other movement disorder Recommend pt follow up with normal neurologist and possible referral to movement disorder specialist. PLAN: Plan Chronic conditions: * HTN/HLD/paroxysmal A-fib/history of pericardial effusion? Can resume her home blood pressure medications but can hold for systolics less than 100? Continue with her Eliquis * DM2? We will hold her home metformin and place her on a sliding scale insulin? Accu-Cheks ACHS? We will make adjustments as necessary * GERD? Stable? Continue with her Pepcid * Anxiety/depression? Stable? Continue with duloxetine * Seizure disorder? Stable? Continue with Lamictal * afib: on dilt and apixaban DVT prophylaxis: not indicated as pt is on apixaban DW pt's at bedside. Greater than 50 minutes of which greater than 50% of the time was counseling pt and about my concern for Parkinson's disease for her, recommended follow up, possible treatments. Charges/Coding Visit Charges Inpatient E&M: 40390 Subs Hosp L3
[2022-08-30] MEDS: Potassium Chloride Oral Tablet 20 MEQ PO (08:30)
[2022-08-30 09:57] VITALS: BP 109/47; PULSE 68; RESP 18; TEMP 36.4; O2SAT 97
[2022-08-30] MEDS: Aspirin E.C. 81 MG Tablet PO (10:00)
[2022-08-30] MEDS: APIXABAN 2.5 MG TABLET (WCH) PO (10:00)
[2022-08-30] MEDS: lamoTRIgine 100 MG Tablet PO (10:01)
[2022-08-30] MEDS: DULoxetine Hcl 30 MG Capsule PO (10:01)
[2022-08-30] MEDS: Furosemide 40 MG Tablet PO (10:01)
--- NOTE | 2022-08-30 10:11 | CASEMGMT ---
Addendum entered by Ana Ramos 08/30/22 15:16: Frida aware pt will dc to TCU, referral for HHC cancelled. Palliative c/s placed per order. Emailed referral to palliative at this time. Original Note: Received notification from Frida at [facility] that pt just dc'd from [facility] on the and they received a referral for pt for SN, PT and OT.
[2022-08-30 10:57] VITALS: BP 109/47; PULSE 68
[2022-08-30] MEDS: Metoprolol(XL)Succ 25 MG Tablet PO (10:57)
[2022-08-30] MEDS: Losartan Potassium 25 MG Tablet PO (10:57)
[2022-08-30] MEDS: dilTIAZem CD 120 MG Capsule PO (10:57)
[2022-08-30] MEDS: Famotidine 20 MG Tablet 40 MG PO (10:57)
[2022-08-30 11:40] LABS: Bedside Glucose 127 mg/dL (74-106)
--- NOTE | 2022-08-30 12:13 | CASEMGMT ---
Addendum entered by Cierra Marsh 08/30/22 14:34: Lluvia from TCU is able ot accept pt. Lluvia informed since pt has already passed 20 Medicare days pt would have co-pay. WILMAN called pt , Kit, to confirm this is ok. Kit informed pt has secondary insurance, [employer] Kit to call secondary to confirm would cover co-pay. Kit informed either way, if secondary will cover or if family pays co-pay, is alright iwht pt discharging to TCU today. WILMAN updated MD Tesfaye via [employer]. Original Note: Social Work? SW in to meet with pt following update from Dr/therapy team that pt will need placement at nursing facility. SW introduced self and role at the hospital. Pt agreeable to discussing discharge planning. A list of SNF providers including quality and resource use data consistent with the patient?s preferred geographic region, medical needs, and insurance network were provided from the [employer] Guide. Pt reviewed list but asked SW to call Kit to discuss as pt would prefer to return home. WILMAN called pt . stated pt is not safe to return home at this time and preference would be [facility]. Pt confirmed with pt and pt agreeable to this. Second choice would be [facility] if [facility] unable to accept. SW sent referral to Lluvia at [facility]. Will await determination. PLAN: SNF? KEMAR Ron?
[2022-08-30] MEDS: 0.9% Saline Lock 10 ML Syringe IV (13:24)
[2022-08-30 15:01] VITALS: BP 106/44; PULSE 104; RESP 18; TEMP 36.5; O2SAT 98
--- NOTE | 2022-08-30 15:09 | TREXTCAR_ITS ---
Diet Diet Order/Speech Therapy: 08/29/22 18:22 Diet: Regular - General Food consistency:: Regular Liquid Consistency:: Regular/Thin Routine Orders/Code Status Code Status: DNRCC-A (no intubation) Wound(s) L thigh: Wound Type: scratches R elbow: Wound Type: Abrasion Therapies Weight Bearing: Full weight bearing Physical Therapy: Eval and Treat Occupational Therapy: Eval and Treat Problem/Diagnosis (1) Debility: Status: Acute Code(s): R53.81 - Other malaise Plan: Unclear as to the etiology of her 3 falls in the last 24 hours whether it is weakness versus mechanical issues using the walker in the house PT/OT for evaluation We will consult case management for discharge planning palliative care consult (2) Contusion of right shoulder: Status: Acute Code(s): S40.011A - Contusion of right shoulder, initial encounter Plan: Xray suggesting chronic rotator cuff tear (3) Tremor: Status: Acute Code(s): R25.1 - Tremor, unspecified Plan: Chronic Concern is for Parkinson's disease v other movement disorder Recommend pt follow up with normal neurologist and possible referral to movement disorder specialist. Plan Chronic conditions: * HTN/HLD/paroxysmal A-fib/history of pericardial effusion? Can resume her home blood pressure medications but can hold for systolics less than 100? Continue with her Eliquis * DM2? We will hold her home metformin and place her on a sliding scale insulin? Accu-Cheks ACHS? We will make adjustments as necessary * GERD? Stable? Continue with her Pepcid * Anxiety/depression? Stable? Continue with duloxetine * Seizure disorder? Stable? Continue with Lamictal * afib: on dilt and apixaban DVT prophylaxis: not indicated as pt is on apixaban DW pt's at bedside. Greater than 50 minutes of which greater than 50% of the time was counseling pt and about my concern for Parkinson's disease for her, recommended follow up, possible treatments. Allergies/Procedures Done in Hospital Allergies bacitracin [From Neosporin ([id number])] Allergy (Verified 08/29/22 13:54) Rash SWOLLEN, ITCHING bacitracin zinc [From Neosporin ([id number]-anr-dyphx)] Allergy (Verified 08/29/22 13:54) Rash SWOLLEN, ITCHING levetiracetam Allergy (Verified 08/29/22 13:54) Other neomycin sulfate [From Neosporin (vtn-uad-fyrle)] Allergy (Verified 08/29/22 13:54) Rash SWOLLEN, ITCHING nickel Allergy (Verified 08/29/22 13:54) Other polymyxin B [From Neosporin ([id number]-[id number]-[id number])] Allergy (Verified 08/29/22 13:54) Rash SWOLLEN, ITCHING sulfamethoxazole [From Bactrim] Allergy (Verified 08/29/22 13:54) Itching trimethoprim [From Bactrim] Allergy (Verified 08/29/22 13:54) Itching codeine Adverse Reaction (Verified 08/29/22 13:54) Nausea milk Adverse Reaction (Verified 08/29/22 13:54) Nausea/Vom/Diarrhea Type of Care/Length of Stay Estimated LOS: Convalescent Care Less Than 30 days Type of Care Needed: Skilled Rehab Potential: Fair Prognosis: Fair Additional Orders/Day of Discharge Day of Discharge: 08/30/22 Discharge Plan Admission Admit Date/Time: 08/29/22 17:26 Primary Reason for Your Visit: Debility Attending Provider: Steve Tesfaye Primary Care Provider: Nahomy Bettencourt Consulting Providers: Rob Young Instructions Additional Instructions / Restrictions: Follow up with your neurologist in next month. You may also see about self- referring to the [facility] for movement disorders for evaluation of your tremors. Appointments can be made through calling [phone] Discharge Orders/Prescriptions Prescriptions: Continued duloxetine 30 mg capsule,delayed release(DR/EC) 30 mg PO DAILY acetaminophen [Tylenol] 325 mg tablet 650 mg PO ONCE PRN (Reason: pain) [facility] 10 billion cell -200 mg capsule 1 cap PO DAILY PRN (Reason: [facility]) furosemide 40 mg tablet 40 mg PO DAILY famotidine 40 mg tablet 40 mg PO BID melatonin 3 mg tablet 3 mg PO HS metformin 500 mg tablet 500 mg PO BID ondansetron 4 mg tablet,disintegrating 4 mg PO Q6H PRN (Reason: nausea and vomiting) cyanocobalamin (vitamin B-12) [Vitamin B-12] 1,000 mcg tablet 1,000 mcg PO DAILY aspirin 81 mg Tablet,Delayed Release (Dr/Ec) 81 mg PO DAILY nitroglycerin 0.4 mg Tablet, Sublingual 0.4 mg sublingual Q5M PRN (Reason: Cardiac/Chest Pain) Qty: 0 0RF lamotrigine 100 mg Tablet 100 mg PO BID 30 Days Qty: 60 0RF potassium chloride [Klor-Con M20] 20 mEq tablet,ER particles/crystals 20 meq PO BIDCM 30 Days Qty: 60 0RF diltiazem HCl [Cartia XT] 120 mg capsule,extended release 24hr 120 mg PO BID losartan 25 mg tablet 25 mg PO DAILY Qty: 90 3RF Eliquis 2.5 mg tablet 2.5 mg PO BID Qty: 60 11RF metoprolol succinate 25 mg tablet extended release 24 hr 25 mg PO DAILY Qty: 90 3RF Referrals / Follow Up: Nahomy Bettecnourt MD [Primary Care Provider] - Within 2 Weeks Disposition Disposition (needs filled in before D/C Order can be placed): Intermediate Facility
--- NOTE | 2022-08-30 15:16 | PCM.DC.SUM ---
Providers Date of Admission: 08/29/22 Primary Care Physician: Dr. Nahomy Bettencourt MD Reason For Visit: WEAKNESS AND FALL Diagnosis Discharge Diagnosis (1) Debility: Status: Acute Code(s): R53.81 - Other malaise Plan: Unclear as to the etiology of her 3 falls in the last 24 hours whether it is weakness versus mechanical issues using the walker in the house, but also concern for underlying movement disorder, such a Parkinon's disease. PT/OT for evaluation We will consult case management for discharge planning palliative care consult (2) Contusion of right shoulder: Status: Acute Code(s): S40.011A - Contusion of right shoulder, initial encounter Plan: Xray suggesting chronic rotator cuff tear (3) Tremor: Status: Acute Code(s): R25.1 - Tremor, unspecified Plan: Chronic Concern is for Parkinson's disease v other movement disorder Recommend pt follow up with normal neurologist and possible referral to movement disorder specialist. Plan Chronic conditions: HTN/HLD/paroxysmal A-fib/history of pericardial effusion? Can resume her home blood pressure medications but can hold for systolics less than 100? Continue with her Eliquis DM2? We will hold her home metformin and place her on a sliding scale insulin? Accu-Cheks ACHS? We will make adjustments as necessary GERD? Stable? Continue with her Pepcid Anxiety/depression? Stable? Continue with duloxetine Seizure disorder? Stable? Continue with Lamictal afib: on dilt and apixaban DVT prophylaxis: not indicated as pt is on apixaban DW pt's at bedside. Greater than 50 minutes of which greater than 50% of the time was counseling pt and about my concern for Parkinson's disease for her, recommended follow up, possible treatments. Medications at Discharge Home Medications duloxetine 30 mg capsule,delayed release 30 mg PO DAILY NEUROPATHY 09/22/20 aspirin 81 mg tablet,delayed release 81 mg PO DAILY HEART HEALTH 06/09/22 nitroglycerin 0.4 mg sublingual tablet 0.4 mg sublingual Q5M PRN Cardiac/Chest Pain #0 tabs 06/11/22 lamotrigine 100 mg tablet 100 mg PO BID 30 days #60 tabs 06/29/22 potassium chloride 20 mEq tablet,extended release(part/cryst) (Klor-Con M) 20 meq PO BIDCM Supplement 30 days #60 tabs 06/29/22 Lactobacillus rhamnosus GG 10 billion cell-inulin 200 mg capsule ([employer]) 1 cap PO DAILY PRN GUT HEALTH 08/10/22 acetaminophen 325 mg tablet (Tylenol) 650 mg PO ONCE PRN pain 08/10/22 cyanocobalamin (vitamin B-12) 1,000 mcg tablet (Vitamin B-12) 1,000 mcg PO DAILY 08/10/22 famotidine 40 mg tablet 40 mg PO BID 08/10/22 furosemide 40 mg tablet 40 mg PO DAILY Diuretic 08/10/22 melatonin 3 mg tablet 3 mg PO HS 08/10/22 metformin 500 mg tablet 500 mg PO BID 08/10/22 ondansetron 4 mg disintegrating tablet 4 mg PO Q6H PRN nausea and vomiting 08/10/22 apixaban 2.5 mg tablet (Eliquis) 2.5 mg PO BID #60 tabs 08/27/22 losartan 25 mg tablet 25 mg PO DAILY #90 tabs 08/27/22 metoprolol succinate 25 mg tablet,extended release 24 hr 25 mg PO DAILY #90 tabs 08/27/22 diltiazem HCl 120 mg capsule,extended release 24 hr (Cartia XT) 120 mg PO BID . 08/29/22 Hospital Course Operations None Procedures None Summary of Care Provided Minutes Spent on Discharge: 40 Weight / BMI Weight Weight: 73.3 kg Body Mass Index (BMI) 25.2 ABG / Lab / Microbiology Data Result Diagrams: 08/30/22 05:41 08/30/22 05:41 Laboratory: Laboratory Results - last 24 hr 08/29/22 14:10: Phenytoin 0.5 L 08/29/22 16:00: Urine Color Yellow, Urine Clarity Clear, Urine pH 5.0, Ur Specific [place] 1.020, Urine Protein 15 H, Urine Glucose (UA) Normal, Urine Ketones Negative, Urine Occult Blood 10 H, Urine Nitrite Negative, Urine Bilirubin Negative, Urine Urobilinogen Normal, Ur Leukocyte Esterase 25 H, Urine RBC 0 SEEN, Urine WBC 0-5 SEEN, Ur Squamous Epith Cells 0 SEEN, Calcium Oxalate Crystal 1+, Urine Bacteria 0 SEEN, Hyaline Casts 0-5 SEEN, Urine Mucus 0 SEEN 08/29/22 17:35: Troponin I High Sens 23 08/29/22 20:28: POC Glucose 95 08/30/22 05:41: WBC 7.4, RBC 3.80 L, Hgb 11.8 L, Hct 38.3, MCV 100.8 H, MCH 31.1, MCHC 30.8 L, RDW Std Deviation 59.0 H, RDW Coeff of Robert 15.7 H, Plt Count 284, MPV 9.8, Immature Gran % (Auto) 0.400, Neut % (Auto) 63.8, Lymph % (Auto) 19.1, [place] % (Auto) 8.2, Eos % (Auto) 7.8 H, Baso % (Auto) 0.7, Absolute Neuts (auto) 4.8, Absolute Lymphs (auto) 1.42, Nucleated RBC % 0 08/30/22 05:41: Sodium 139, Potassium 3.6, Chloride 106, Carbon Dioxide 28.0, Anion Gap 5, BUN 10, Creatinine 0.62, Estim Creat Clear Calc 41.45, Est GFR (MDRD) Af Amer 118, Est GFR (MDRD) Non-Af 98, BUN/Creatinine Ratio 16.1, Glucose 94, Calcium 9.0 08/30/22 06:05: POC Glucose 97 08/30/22 11:17: POC Glucose 127 H Microbiology: Microbiology 08/30/22 14:20 Nasal Secretion SARS-CoV-2 Antigen (Rapid) - Final Radiography Diagnostic Testing: Radiology Impression Brain CT 08/29/22 14:19 IMPRESSION: There are no acute findings. Chronic involutional changes of the brain. Electronically Signed: Los John MD at 15:17 EDT , Cervical Spine CT 08/29/22 14:19 IMPRESSION: Degenerative changes of the cervical spine. There is mild straightening of the normal cervical lordosis. This can suggest neck strain. Electronically Signed: Los John MD at 15:15 EDT , Chest X-Ray 08/29/22 15:05 IMPRESSION: There are no acute findings. Electronically Signed: Los John MD at 15:26 EDT , Shoulder X-Ray 08/29/22 15:05 IMPRESSION: Elevated right humeral head with eburnation of the acromion suggest a chronic rotator cuff tear. Electronically Signed: Los John MD at 15:27 EDT , Meaningful Use Info Meaningful Use Diagnoses (Choose all that apply): None applicable Discharge Plan Admission Admit Date/Time: 08/29/22 17:26 Primary Reason for Your Visit: Debility Attending Provider: Steve Tesfaye Primary Care Provider: Nahomy Bettencourt Consulting Providers: Rob Young Instructions Additional Instructions / Restrictions: Follow up with your neurologist in next month. You may also see about self-referring to the [facility] for movement disorders for evaluation of your tremors. Appointments can be made through calling [phone] Discharge Orders/Prescriptions Prescriptions: Continued duloxetine 30 mg capsule,delayed release(DR/EC) 30 mg PO DAILY acetaminophen [Tylenol] 325 mg tablet 650 mg PO ONCE PRN (Reason: pain) [facility] 10 billion cell -200 mg capsule 1 cap PO DAILY PRN (Reason: GUT HEALTH) furosemide 40 mg tablet 40 mg PO DAILY famotidine 40 mg tablet 40 mg PO BID melatonin 3 mg tablet 3 mg PO HS metformin 500 mg tablet 500 mg PO BID ondansetron 4 mg tablet,disintegrating 4 mg PO Q6H PRN (Reason: nausea and vomiting) cyanocobalamin (vitamin B-12) [Vitamin B-12] 1,000 mcg tablet 1,000 mcg PO DAILY aspirin 81 mg Tablet,Delayed Release (Dr/Ec) 81 mg PO DAILY nitroglycerin 0.4 mg Tablet, Sublingual 0.4 mg sublingual Q5M PRN (Reason: Cardiac/Chest Pain) Qty: 0 0RF lamotrigine 100 mg Tablet 100 mg PO BID 30 Days Qty: 60 0RF potassium chloride [Klor-Con M20] 20 mEq tablet,ER particles/crystals 20 meq PO BIDCM 30 Days Qty: 60 0RF diltiazem HCl [Cartia XT] 120 mg capsule,extended release 24hr 120 mg PO BID losartan 25 mg tablet 25 mg PO DAILY Qty: 90 3RF Eliquis 2.5 mg tablet 2.5 mg PO BID Qty: 60 11RF metoprolol succinate 25 mg tablet extended release 24 hr 25 mg PO DAILY Qty: 90 3RF Referrals / Follow Up: Nahomy Bettencourt MD [Primary Care Provider] - Within 2 Weeks Disposition Disposition (needs filled in before D/C Order can be placed): Jail Facility Charges/Coding Visit Charges Inpatient E&M: 55669 Disch Hosp >30min
--- NOTE | 2022-08-30 15:28 | PHA.DC.MR ---
Pharmacy Service has performed discharge medication reconciliation for this patient upon transfer to [facility]. Home Medications duloxetine 30 mg capsule,delayed release 30 mg PO DAILY NEUROPATHY 09/22/20 aspirin 81 mg tablet,delayed release 81 mg PO DAILY HEART HEALTH 06/09/22 nitroglycerin 0.4 mg sublingual tablet 0.4 mg sublingual Q5M PRN Cardiac/Chest Pain #0 tabs 06/11/22 lamotrigine 100 mg tablet 100 mg PO BID 30 days #60 tabs 06/29/22 potassium chloride 20 mEq tablet,extended release(part/cryst) (Klor-Con M) 20 meq PO BIDCM Supplement 30 days #60 tabs 06/29/22 Lactobacillus rhamnosus GG 10 billion cell-inulin 200 mg capsule ([facility]) 1 cap PO DAILY PRN GUT HEALTH 08/10/22 acetaminophen 325 mg tablet (Tylenol) 650 mg PO ONCE PRN pain 08/10/22 cyanocobalamin (vitamin B-12) 1,000 mcg tablet (Vitamin B-12) 1,000 mcg PO DAILY 08/10/22 famotidine 40 mg tablet 40 mg PO BID 08/10/22 furosemide 40 mg tablet 40 mg PO DAILY Diuretic 08/10/22 melatonin 3 mg tablet 3 mg PO HS 08/10/22 metformin 500 mg tablet 500 mg PO BID 08/10/22 ondansetron 4 mg disintegrating tablet 4 mg PO Q6H PRN nausea and vomiting 08/10/22 apixaban 2.5 mg tablet (Eliquis) 2.5 mg PO BID #60 tabs 08/27/22 losartan 25 mg tablet 25 mg PO DAILY #90 tabs 08/27/22 metoprolol succinate 25 mg tablet,extended release 24 hr 25 mg PO DAILY #90 tabs 08/27/22 diltiazem HCl 120 mg capsule,extended release 24 hr (Cartia XT) 120 mg PO BID . 08/29/22 The patient's discharge medication list was reviewed for discrepancies and discrepancies were resolved.
--- NOTE | 2022-08-30 15:29 | CASEMGMT ---
Social Work? WILMAN notified pt of discharge to TCU today. WILMAN notified pt , Kit earlier in the day of discharge this afternoon. Kit voiced understanding. WILMAN faxed all discharge orders to TCU.? SW made copies of discharge orders and placed on pt chart. Sent original orders in envelope with pt upon discharge.? Disposition: TCU, skilled, convalescent, level of care?? KEMAR Ron? ?
[2022-08-30 16:35] LABS: Bedside Glucose 104 mg/dL (74-106)
== END 2022-08-30 16:42 | disposition skilled nursing facility (03) ==
LOC: ED 17:16 → MS3 17:38
PROVIDERS: Admitting Provider Family Medicine; Emergency Provider Emergency Medicine; PCP Family Medicine
DX: R53.81 Other malaise (principal); G30.9 Alzheimer's disease, unspecified; F02.80 Dementia in other diseases classified elsewhere, unspecified severity, without behavioral disturbance, psychotic disturbance, mood disturbance, and anxiety; I42.9 Cardiomyopathy, unspecified; E11.42 Type 2 diabetes mellitus with diabetic polyneuropathy; I48.0 Paroxysmal atrial fibrillation; G40.909 Epilepsy, unspecified, not intractable, without status epilepticus; Z87.891 Personal history of nicotine dependence; Z79.82 Long term (current) use of aspirin; I10 Essential (primary) hypertension; S40.011A Contusion of right shoulder, initial encounter; R03.1 Nonspecific low blood-pressure reading; R55 Syncope and collapse; W18.30XA Fall on same level, unspecified, initial encounter; Z79.01 Long term (current) use of anticoagulants; I25.10 Atherosclerotic heart disease of native coronary artery without angina pectoris; R53.1 Weakness; Z79.899 Other long term (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; Z79.84 Long term (current) use of oral hypoglycemic drugs; E78.5 Hyperlipidemia, unspecified; I44.7 Left bundle-branch block, unspecified; K21.9 Gastro-esophageal reflux disease without esophagitis; F41.9 Anxiety disorder, unspecified; F32.A Depression, unspecified
CPT/HCPCS: 36415; 70450; 71045; 72125; 73030; 80048; 80185; 81001; 82962; 84484; 85025; 85610; 85730; 87811; 93005; 96361; 96374; 97162; 97166; 99221; 99285; J7030; A4216; G0378

== ENCOUNTER 2022-08-30 16:55 | Inpatient (IN) | payer MEDICARE, OTHER, SELFPAY ==
[2022-08-30 17:13] VITALS: BP 109/53; PULSE 56; RESP 16; TEMP 35.9; O2SAT 98; BMI 25.5
[2022-08-30] MEDS: 0.9% Saline Lock 10 ML Syringe IV (18:37)
[2022-08-30] MEDS: dilTIAZem CD 120 MG Capsule PO (18:51)
[2022-08-30] MEDS: lamoTRIgine 100 MG Tablet PO (18:51)
[2022-08-30] MEDS: APIXABAN 2.5 MG TABLET (WCH) PO (18:51)
[2022-08-30] MEDS: MELATONIN 3 MG TABLET PO (20:09)
--- NOTE | 2022-08-30 20:11 | HP.PCM_ITS ---
HPI - General General Date of Admission: 08/30/22 Date of Service: 08/30/22 Chief Complaint: Here for rehabilitation. HPI Narrative 08/29/2022 MAGDY MIRAMONTES, is a 81 Female who presents to [facility] Emergency Department with fall. Walking, questionable syncope, fall. Hit right shoulder, head, neck, aching pain. CT brain okay, CT cervical spine showed degenerative changes. Chest X-ray okay. X-ray right shoulder suggestive of chronic rotator cuff tear. IV fluids given for transient hypotension. 08/29/2022 Admit to Hospital. PT/OT for Debility. 08/30/2022 Feels weak. 08/30/2022 Admit to TCU with debility, here for rehabilitation, strengthening, prior to discharge home with . [facility] Medical History Acute postoperative pain of right knee Ambulates with cane Aortic stenosis Arthritis Atherosclerotic heart disease of [place] coronary artery without angina pectoris Back pain Cardiology follow-up encounter Cardiomyopathy Cellulitis of chest wall Chronic constipation Chronic cough Debility Depression Diabetes Diabetes mellitus Diabetic polyneuropathy Dietary restriction DM2 (diabetes mellitus, type 2) Epilepsy Essential hypertension Former smoker H/O cardiac murmur History of atrial fibrillation History of echocardiogram History of left heart catheterization (LHC) (~06/02/22) History of pain when walking History of steroid therapy History of stress test Hx of back injury Hx of vaginal delivery Hypertension Hypertension Inability to ambulate due to knee Injury of back Injury of head and neck Nephrolithiasis Neuropathy Neuropathy, diabetic Paroxysmal atrial fibrillation Pericardial effusion Tremor Vitamin D deficiency Wears glasses Home Medications duloxetine 30 mg capsule,delayed release 30 mg PO DAILY NEUROPATHY 09/22/20 [History Last Taken 08/28/22] aspirin 81 mg tablet,delayed release 81 mg PO DAILY HEART HEALTH 06/09/22 [History Last Taken 08/29/22] nitroglycerin 0.4 mg sublingual tablet 0.4 mg sublingual Q5M PRN Cardiac/Chest Pain #0 tabs 06/11/22 [Rx Last Taken Unknown] potassium chloride 20 mEq tablet,extended release(part/cryst) (Klor-Con M) 20 meq PO BIDCM Supplement 30 days #60 tabs 06/29/22 [Rx Last Taken 08/29/22] Lactobacillus rhamnosus GG 10 billion cell-inulin 200 mg capsule ([employer]) 1 cap PO DAILY PRN GUT HEALTH 08/10/22 [History Last Taken Unknown] acetaminophen 325 mg tablet (Tylenol) 650 mg PO ONCE PRN pain 08/10/22 [History Last Taken Unknown] cyanocobalamin (vitamin B-12) 1,000 mcg tablet (Vitamin B-12) 1,000 mcg PO DAILY supplement 08/10/22 [History Last Taken 08/29/22] famotidine 40 mg tablet 40 mg PO BID stomach 08/10/22 [History Last Taken 08/29/22] furosemide 40 mg tablet 40 mg PO DAILY Diuretic 08/10/22 [History Last Taken 08/29/22] melatonin 3 mg tablet 3 mg PO HS sleep 08/10/22 [History Last Taken Unknown] metformin 500 mg tablet 500 mg PO BID blood sugar 08/10/22 [History Last Taken Unknown] ondansetron 4 mg disintegrating tablet 4 mg PO Q6H PRN nausea and vomiting 08/10/22 [History Last Taken Unknown] diltiazem HCl 120 mg capsule,extended release 24 hr (Cartia XT) 120 mg PO BID heart 08/29/22 [History Last Taken 08/29/22] apixaban 2.5 mg tablet (Eliquis) 2.5 mg PO BID blood thinner 08/30/22 [History Last Taken Unknown] lamotrigine 100 mg tablet 100 mg PO BID seizure 08/30/22 [History Last Taken Unknown] losartan 25 mg tablet 25 mg PO DAILY blood pressure 08/30/22 [History Last Taken Unknown] metoprolol succinate 25 mg tablet,extended release 24 hr 25 mg PO DAILY blood pressure 08/30/22 [History Last Taken Unknown] Allergy/AdvReac Type Severity Reaction Status Date / Time bacitracin Allergy Rash Verified 08/29/22 13:54 [From Neosporin ([id number])] bacitracin zinc Allergy Rash Verified 08/29/22 13:54 [From Neosporin ([id number])] levetiracetam Allergy Other Verified 08/29/22 13:54 neomycin sulfate Allergy Rash Verified 08/29/22 13:54 [From Neosporin ([id number])] nickel Allergy Other Verified 08/29/22 13:54 polymyxin B Allergy Rash Verified 08/29/22 13:54 [From Neosporin ([id number])] sulfamethoxazole Allergy Itching Verified 08/29/22 13:54 [From Bactrim] trimethoprim [From Bactrim] Allergy Itching Verified 08/29/22 13:54 codeine AdvReac Nausea Verified 08/29/22 13:54 milk AdvReac Nausea/Vom/ Verified 08/29/22 13:54 Diarrhea Family History Father No problems noted. Mother No problems noted. Surgical History Amputated toe of right foot Deviated septum History of appendectomy History of cholecystectomy History of hysterectomy History of neck surgery History of tonsillectomy History of total right knee replacement (TKR) Hx of cystoscopy Hx of fusion of cervical spine S/P total knee arthroplasty Social History household members: spouse Smoking Status: Former smoker alcohol intake: never substance use type: does not use caffeine: No what type of physical activity do you participate in: other details: physical therapy seatbelt use: always do you feel safe at home: Yes ROS Constitutional Constitutional: Denies chills, fever(s) or weight gain ENT HEENT: Denies headache(s), nasal congestion or nasal discharge Cardiovascular Cardiovascular: Denies chest pain or palpitations Respiratory/Chest Respiratory/Chest: Denies cough, excessive phlegm production or shortness of breath with exertion Gastrointestinal Gastrointestinal: Denies abdominal pain, nausea or vomiting Genitourinary Genitourinary: Denies dysuria Musculoskeletal Musculoskeletal: Denies joint pain or joint swelling Integumentary Integumentary: Denies rash or wounds Neurologic Neurologic: Denies focal weakness, numbness or tingling Psychiatric Psychiatric: Denies anxiety, auditory hallucinations, depression, homicidal ideation or suicidal ideation Vital Signs Vital Signs Vital Signs: 08/30/22 17:13 08/30/22 17:13 Temperature 96.6 F L Temperature Source Temporal Pulse Rate 56 L Pulse Rhythm Regular Pulse Strength Normal (2+) Respiratory Rate 16 Respiratory Effort Normal Non-Labored Respiratory Depth Normal Respiratory Pattern Normal Blood Pressure 109/53 L Blood Pressure Mean 71 Blood Pressure Source Monitor Blood Pressure Position Sitting Blood Pressure Location Right Arm Pulse Ox 98 Oxygen Delivery Method Room Air Room Air Weight Weight: 71.849 kg Body Mass Index (BMI) 25.5 Physical Exam Const alert General Appearance: cooperative HEENT normocephalic Eyes PERRL and EOMs intact bilaterally Neck supple, no JVD and no carotid bruits Resp normal respiratory effort, normal air movement and clear to auscultation bilaterally Cardio regular rate and regular rhythm GI normal to inspection, nondistended, normoactive bowel sounds, non-tender and non-distended Extremity normal capillary refill General Extremity: Negative for edema Skin no rashes or lesions noted General Skin Exam: no breakdown Psych affect normal Appearance: appropriate Assessment & Plan Assessment/Plan (1) Debility: (2) Contusion of right shoulder: (3) Atrial fibrillation: (4) Chronic systolic congestive heart failure: (5) Depression: (6) Anxiety: (7) Seizure disorder: (8) Coronary artery disease: PLAN: Plan 81 year old female with below past medical history hospitalized for fall, right shoulder contusion, admitted to TCU with debility, here for rehabilitation, strengthening, prior to discharge home with . * Debility - PT/OT. * Pain - Tylenol 1000mg q6h prn pain (1-10). * Bowel - senna/colace 1 tablet bid, MOM 30ml po x 1 prn. * Adult immunization - Administer pneumonia vaccine, covid19 vaccine, flu vaccine as appropriate. * DVT prophylaxis - on Eliquis. * Atrial Fibrillation - Metoprolol succinate 25mg daily, Diltiazem CD 120mg bid, Eliquis 2.5mg bid. * Vitamin B12 deficiency - B12 1000mcg daily. * Depression - Duloxetine 30mg daily, stable chronic residential use, GDR not recommended. * Nutrition - Ensure Clear 120ml po tidcm. * GERD - Famotine 40mg bid. * Chronic systolic congestive heart failure - Metoprolol succinate 25mg daily, Losartan 25mg daily, Furosemide 40mg daily. * Coronary artery disease - Metoprolol succinate 25mg daily, Losartan 25mg daily, NTG 0.4mg sl q5m prn. * GI prophylaxis - Lactobacillus 1 tablet daily prn. * Seizure disorder - Lamictal 100mg bid. * Insomnia - Melatonin 3mg qhs. * Skin irritation - Calmoseptine topical bid. * Diabetes Mellitus II - Metformin 500mg bidcm. * Nausea - Zofran odt 4mg q6h prn. * Hypokalemia - KCL ER 20meq bidcm.
[2022-08-30] MEDS: Acetaminophen 500 MG Tablet 1000 MG PO (23:48)
[2022-08-31] MEDS: APIXABAN 2.5 MG TABLET (WCH) PO ×2 (04:46→17:37)
[2022-08-31 04:47] VITALS: BP 101/57; PULSE 69
[2022-08-31] MEDS: Furosemide 40 MG Tablet PO (04:47)
[2022-08-31] MEDS: Losartan Potassium 25 MG Tablet PO (04:47)
[2022-08-31] MEDS: Famotidine 20 MG Tablet 40 MG PO ×2 (04:47→17:37)
[2022-08-31] MEDS: Metoprolol(XL)Succ 25 MG Tablet PO (04:47)
[2022-08-31] MEDS: lamoTRIgine 100 MG Tablet PO ×2 (04:47→17:37)
[2022-08-31] MEDS: DULoxetine Hcl 30 MG Capsule PO (04:47)
[2022-08-31 05:53] LABS: Absolute Lymphocyte Count 1.33 X10^3/uL (0.83-4.51); Absolute Neutrophil Count 3.9 X10^3/uL (2.0-7.7); Basophil# 0.05 X10^3/uL; Basophil% 0.8 % (0-1); Eosinophils% 9.4 % (0-5); Hematocrit 36.9 % (37-47); Hemoglobin 11.6 g/dL (12.0-15.0); Lymphocyte # 1.33 X10^3/ul (0.83-4.51); Lymphocyte % 20.7 % (19-41); Mean Corp Hgb Conc 31.4 g/dL (32-36); Mean Corpuscular Hgb 31.3 pg (27.0-32.0); Mean Corpuscular Volume 99.5 fL (81-99); Mean Platelet Vol. 10.1 fl (6.2-12.0); Monocyte# 0.48 X10^3/uL; Monocyte% 7.5 % (0-10); NRBC Flagged by Analyzer 0 % (0-5); Neutrophil # 3.91 X10^3/uL (2.7-7.7); Platelet Count 288 K/mm3 (150-450); RBC Distribution Width CV 15.6 % (11.6-14.6); RBC Distribution Width SD 57.4 fl (35.1-43.9); Red Blood Count 3.71 M/mm3 (4.2-5.4); White Blood Count 6.4 K/mm3 (4.4-11.0)
[2022-08-31 06:35] LABS: Anion Gap 3 (5-15); BUN 8 mg/dL (7-18); BUN/Creat Ratio 12.3 RATIO (10-20); Calcium,Total 9.1 mg/dL (8.5-10.1); Chloride 106 mmol/L (98-107); Creatinine, Serum 0.65 mg/dL (0.55-1.02); EST Glomerular Filtration Rate 92 mL/min (>60); Est Glom Filt Rate - Afr Amer 112 mL/min (>60); Glucose 101 mg/dL (74-106); Potassium 3.4 mmol/L (3.5-5.1); Sodium Level 136 mmol/L (136-145)
[2022-08-31 07:01] LABS: Bedside Glucose 105 mg/dL (74-106)
[2022-08-31] MEDS: Potassium Chloride Oral Tablet 20 MEQ PO ×2 (08:32→17:36)
[2022-08-31] MEDS: Cyanocobalamin 500 MCG Tablet 1000 MCG PO (08:32)
[2022-08-31] MEDS: Ensure Clear 120 ML Liquid PO ×2 (08:32→12:54)
[2022-08-31] MEDS: Potassium Chloride Oral Tablet 20 MEQ 40 MEQ PO (08:32)
[2022-08-31] MEDS: metFORMIN HCl 500 MG Tablet PO ×2 (08:32→17:37)
[2022-08-31] MEDS: Tuberculin,Purif.prot.deriv. 50 TU/ML Vial 0.1 ML ID (08:42)
[2022-08-31] MEDS: Menthol/Lanolin/Calamine/Znox 113 GM Tube 1 APPLIC TOPICAL ×2 (08:45→21:51)
[2022-08-31 08:49] VITALS: BP 113/56; PULSE 49
--- NOTE | 2022-08-31 11:09 | CASEMGMT ---
Social Work Met with patient to complete initial assessment. Pt known to this worker from previous stay. Verified contacts. Updated changes in assessment. No changes to code status, DNR-CCA, no intubation, or MOLST form. Educated to Medicare benefit and pt has admitted roughly on day [id number]. Educated to Medicare benefit periods. Pt expressed understanding. Pt's goal is to return home with . SW to continue to follow for DC planning. Char Sosa, AC[employer] A[employer] DIRECTOR [employer]
[2022-08-31 14:15] VITALS: BMI 25.4
--- NOTE | 2022-08-31 15:05 | PCM.PN.DRR ---
TCU RX Drug Regimen Review Subjective: TCU Admission. 81 YOF presented to the ER with a fall. Hospitalized for fall, right shoulder contusion. Admitted to TCU with debility for strengthening and rehabilitation. Objective: Allergies bacitracin [From Neosporin ([id number])] Allergy (Verified 08/29/22 13:54) Rash SWOLLEN, ITCHING bacitracin zinc [From Neosporin ([id number])] Allergy (Verified 08/29/22 13:54) Rash SWOLLEN, ITCHING levetiracetam Allergy (Verified 08/29/22 13:54) Other neomycin sulfate [From Neosporin ([id number]-mxe-[id number])] Allergy (Verified 08/29/22 13:54) Rash SWOLLEN, ITCHING nickel Allergy (Verified 08/29/22 13:54) Other polymyxin B [From Neosporin ([id number]-oug-[id number])] Allergy (Verified 08/29/22 13:54) Rash SWOLLEN, ITCHING sulfamethoxazole [From Bactrim] Allergy (Verified 08/29/22 13:54) Itching trimethoprim [From Bactrim] Allergy (Verified 08/29/22 13:54) Itching codeine Adverse Reaction (Verified 08/29/22 13:54) Nausea milk Adverse Reaction (Verified 08/29/22 13:54) Nausea/Vom/Diarrhea Current Medications Generic Name Dose Route Start Last Admin Trade Name Freq PRN Reason Stop Dose Admin Acetaminophen 1,000 mg 08/30/22 20:40 08/30/22 23:48 Acetaminophen 500 Mg Tablet PO 1,000 mg Q6H PRN PRN Administration Pain Score 1-10 Apixaban 2.5 mg 08/30/22 18:00 08/31/22 04:46 Apixaban 2.5 Mg Tablet ([facility]) PO 2.5 mg BID ADÁN Administration Calamine/Phenol 1 applic 08/31/22 10:00 08/31/22 08:45 Menthol/Lanolin/Calamine/Znox 113 Gm Tube TOPICAL 1 applic 1000,2200 ADÁN Administration Protocol Cyanocobalamin 1,000 mcg 08/31/22 08:00 08/31/22 08:32 Cyanocobalamin 500 Mcg Tablet PO 1,000 mcg DAILYCM ADÁN Administration Diltiazem HCl 120 mg 08/31/22 08:00 08/31/22 08:31 Diltiazem Cd 120 Mg Capsule PO Not Given BIDCM [facility] Duloxetine HCl 30 mg 08/31/22 06:00 08/31/22 04:47 Duloxetine Hcl 30 Mg Capsule PO 30 mg DAILY [facility] Administration Famotidine 40 mg 08/31/22 06:00 08/31/22 04:47 Famotidine 20 Mg Tablet PO 40 mg BID [facility] Administration Furosemide 40 mg 08/31/22 06:00 08/31/22 04:47 Furosemide 40 Mg Tablet PO 40 mg DAILY [facility] Administration Hydrocortisone 1 applic 08/31/22 07:46 Hydrocortisone 2.5% Crm TOPICAL TID PRN PRN RASH/TOPICAL IRRITATION Protocol Lactobacillus Acidophilus 1 tablet 08/30/22 18:11 Lactobacillus Acidophilus PO DAILY PRN [facility] Lamotrigine 100 mg 08/30/22 18:00 08/31/22 04:47 Lamotrigine 100 Mg Tablet PO 100 mg BID [facility] Administration Losartan Potassium 25 mg 08/31/22 06:00 08/31/22 04:47 Losartan Potassium 25 Mg Tablet PO 25 mg DAILY [facility] Administration Magnesium Hydroxide 30 ml 08/30/22 20:28 Magnesium Hydroxide 30 Ml Udc PO X1 PRN Constipation Melatonin 3 mg 08/30/22 22:00 08/30/22 20:09 Melatonin 3 Mg Tablet PO 3 mg HS [facility] Administration Metformin HCl 500 mg 08/31/22 08:00 08/31/22 08:32 Metformin Hcl 500 Mg Tablet PO 500 mg BIDCM [facility] Administration Metoprolol Succinate 25 mg 08/31/22 06:00 08/31/22 04:47 Metoprolol(Xl)Succ 25 Mg Tablet PO 25 mg DAILY [facility] Administration Nitroglycerin 0.4 mg 08/30/22 18:09 Nitroglycerin (Inpatient Use) 0.4 Mg Tab.Subl SL Q5M PRN CARDIAC/CHEST PAIN Nutritional Formula (Lactose Free) 120 ml 08/31/22 07:45 08/31/22 12:54 Ensure Clear 120 Ml Liquid PO 120 ml TIDCM [facility] Administration Ondansetron HCl 4 mg 08/30/22 17:28 Ondansetron Odt 4 Mg Tablet PO Q6H PRN nausea and vomiting Potassium Chloride 20 meq 08/31/22 08:00 08/31/22 08:32 Potassium Chloride Oral Tablet 20 Meq PO 20 meq BIDCM [facility] Administration Senna/Docusate Sodium 1 tablet 08/30/22 20:30 08/31/22 04:46 Senna/Docusate Sodium 1 Tablet PO Not Given BID ADÁN Sodium Chloride 10 - 40 ml 08/30/22 17:28 08/30/22 18:37 0.9% Saline Lock 10 Ml Syringe IV 10 ml UD PRN Administration SALINE FLUSH Tuberculin PPD 0.1 ml 09/07/22 10:00 Tuberculin,Purif.Prot.Deriv. 50 Tu/Ml Vial ID 09/07/22 10:01 X1 ONE Problem List (Last Reviewed 08/30/22 @ 20:[address] Arsenio Pride MD) Coronary artery disease (Acute) Seizure disorder (Acute) Anxiety (Acute) Depression (Acute) Chronic systolic congestive heart failure (Chronic) Atrial fibrillation (Acute) Debility (Acute) Contusion of right shoulder (Acute) Vital Signs Temp Pulse Resp BP Pulse Ox O2 Del Method 96.6 F L 49 L 16 113/56 L 98 Room Air 08/30/22 17:13 08/31/22 08:49 08/30/22 17:13 08/31/22 08:49 08/30/22 17:13 08/30/22 17:13 Oxygen Delivery Method Room Air Weight: 71.94 kg Body Mass Index (BMI) 25.4 Sodium 136 mmol/L (136-145) 08/31/22 05:15 Potassium 3.4 mmol/L (3.5-5.1) L 08/31/22 05:15 Chloride 106 mmol/L (98-107) 08/31/22 05:15 Carbon Dioxide 27.0 mmol/L (21.0-32.0) 08/31/22 05:15 Anion Gap 3 (5-15) L 08/31/22 05:15 BUN 8 mg/dL (7-18) 08/31/22 05:15 Creatinine 0.65 mg/dL (0.55-1.02) 08/31/22 05:15 Est GFR (MDRD) Af Amer 112 mL/min (>60) 08/31/22 05:15 Est GFR (MDRD) Non-Af 92 mL/min (>60) 08/31/22 05:15 BUN/Creatinine Ratio 12.3 RATIO (10-20) 08/31/22 05:15 Glucose 101 mg/dL (74-106) 08/31/22 05:15 Assessment/Plan: 1. Pain: acetaminophen 1000mg PO Q6H PRN pain 1-10. Resident has had 1 dose for a pain score of 2 in the head. Please continue to monitor for increased pain and PRN usage. 2. Bowel: senna/docusate 1T PO BID and MOM 30 ML PO x1 PRN constipation. Resident has not had any PRN MOM. Resident has refused 2/2 doses of senna/docusate. Last documented bowel movement 08/30. Please consider changing from scheduled to PRN constipation. Thanks. Please continue to monitor for constipation and PRN usage. 3. Atrial fibrillation/CHF/CAD: metoprolol succinate 25mg PO daily, diltiazem CD 120mg PO BID, apixaban 2.5mg PO BID, losartan 25mg PO daily, furosemide 40mg PO daily and nitroglycerin 0.4mg SL Q5M PRN chest pain. Please consider changing apixaban dose to 5mg PO BID if clinically appropriate as resident came to ER with a fall. Resident does not meet 2/3 criteria for decreased dose in atrial fibrillation. Resident is >80 years old but does not weigh <60kg and SCr is not >1.5 mg/dL. Thanks. Please consider adding hold parameters for metoprolol as resident has had 2 lower HRs at 56 bpm and 49 bpm. Thanks. Please continue to monitor BP (last 113/56), S/S of bleeding, hemoglobin (last 11.6g/dL), renal function, potassium (last 3.4mmol/L), chest pain and PRN usage. Resident has not used any doses of nitroglycerin. 4. Seizure disorder: lamotrigine 100mg PO BID. Please continue to monitor for S/S of seizure, rash (black box warning) and falls/fractures (BEERs list). 5. Diabetes mellitus II: metformin 500mg PO BIDCM. Please continue to monitor hemoglobin A1c (last 5.9% 07/30/22), glucose (last 105mg/dL), GFR (last >60mL/min), diarrhea and S/S of hypoglycemia. 6. GERD: famotidine 40mg PO BID. Please continue to monitor for S/S of GERD and renal function (CrCl 61.4 mL/min). 7. Insomnia: melatonin 3mg PO QHS. Please continue to monitor for for excessive drowsiness. 8. Hypokalemia: potassium chloride 20mEq PO BIDCM. Please continue to monitor potassium (last 3.4mmol/L). 9. Nausea: ondansetron 4mg PO Q6H PRN nausea and vomiting. Resident has not used any doses. Please continue to monitor for PRN usage and nausea/vomiting. 10. GI prophylaxis: lactobacillus acidophilus 1T PO daily PRN gut health. Please continue to monitor for diarrhea and PRN usage. Resident has not used any doses so far. 11. Vitamin B12 deficiency: cyanocobalamin 1000mcg PO daily. Please consider ordering a vitamin B12 level as the last level is from 04/2018. Thanks. Assessment/Plan for indications treated with psychotropic medications: 1. Depression: duloxetine 30mg PO daily. Please continue to monitor for suicidal ideation (black box warning), falls/fractures (BEERs criteria), sodium (last 136mmol/L) and renal function. Medical chart and medication regimen reviewed. The following medication irregularities or issues were identified: *1. Senna/docusate 1T PO BID. Resident has refused 2/2 doses of senna/docusate. Last documented bowel movement 08/30. Please consider changing from scheduled to PRN constipation. Thanks. *2. Apixaban 2.5mg PO BID. Please consider changing apixaban dose to 5mg PO BID if clinically appropriate as resident came to ER with a fall. Resident does not meet 2/3 criteria for decreased dose in atrial fibrillation. Resident is >80 years old but does not weigh <60kg and SCr is not >1.5 mg/dL. Thanks. *3. Metoprolol succinate 25mg PO daily. Please consider adding hold parameters for metoprolol as resident has had 2 lower HRs at 56 bpm and 49 bpm. Thanks. *4. Cyanocobalamin 1000mcg PO daily. Please consider ordering a vitamin B12 level as the last level is from 04/2018. Thanks. Date of Note:: 08/31/22
[2022-08-31 16:00] VITALS: BP 110/47; PULSE 69; RESP 22; TEMP 36.3; O2SAT 96
--- NOTE | 2022-08-31 16:13 | CASEMGMT ---
Social Work [facility] [employer] visited with pt and . Pt agreeable to start services at [place]. Char Sosa, SUPERVISOR ROLLING ROOM SOCCER COMMENTATOR
--- NOTE | 2022-08-31 16:18 | CHAPLAIN ---
Type of Pastoral Visit _x__ Initial Visit ___ Follow-up Visit ___ On-call Visit ___ General Patient Visit ___ Spiritual Assessment ___ Family Conference ___ Bereavement ___ Rapid Response ___ Code Blue ___ Other (describe below) Pastoral Care Referral From _x__ Patient ___ Family ___ Nurse ___ Physician ___ Centrifugal Spinner ___ Machine Cloth Measurer ___ Other (describe below) Sacrament/Intervention _x__ Active listening ___ Anointing ___ Rastafari ___ Bereavement ___ Communion ___ Myla exploration ___ _x__ Life review _x__ Prayer ___ Reconciliation ___ Sacrament of Sick _x__ Supportive presence ___ Wedding ___ Other (describe below) Pastoral Comments patient is remembered from previous admissions; spouse is with her; pt shows some functional mental difficulties and continuously referred to her spouse as her father and even stated his name as father; spouse says she has deficits in short term memory now and Parkinsons; pt is aware of mental decline and admits to it saying I just have to go through it; pt welcomes presence and prayer; offer of ongoing support thorough her stay; therapy comes at this time for her session
[2022-08-31] MEDS: dilTIAZem CD 120 MG Capsule PO (17:37)
[2022-08-31] MEDS: Senna/Docusate Sodium 1 Tablet PO (17:37)
[2022-08-31 17:42] VITALS: BP 125/47; PULSE 67
[2022-08-31] MEDS: MELATONIN 3 MG TABLET PO (21:51)
[2022-08-31] MEDS: 0.9% Saline Lock 10 ML Syringe IV (21:54)
[2022-08-31 22:00] VITALS: PULSE 50; RESP 16; O2SAT 93
--- NOTE | 2022-08-31 23:25 | NURSING ---
Patient feeling nauseous at dinner, mychal ivan, saltine crackers given. When passing HS medications, patient stated she was feeling better. Had received an extra dose of potassium at dinner due to low potassium lab value. Will continue to monitor.
[2022-09-01 05:32] VITALS: BP 119/57; PULSE 70
[2022-09-01] MEDS: DULoxetine Hcl 30 MG Capsule PO (05:32)
[2022-09-01] MEDS: Metoprolol(XL)Succ 25 MG Tablet PO (05:32)
[2022-09-01] MEDS: Losartan Potassium 25 MG Tablet PO (05:32)
[2022-09-01] MEDS: APIXABAN 2.5 MG TABLET (WCH) PO ×2 (05:32→17:35)
[2022-09-01] MEDS: Furosemide 40 MG Tablet PO (05:32)
[2022-09-01] MEDS: Famotidine 20 MG Tablet 40 MG PO ×2 (05:32→17:36)
[2022-09-01] MEDS: lamoTRIgine 100 MG Tablet PO ×2 (05:32→17:35)
[2022-09-01] MEDS: Senna/Docusate Sodium 1 Tablet PO ×2 (05:42→17:35)
[2022-09-01 06:09] LABS: Anion Gap 1 (5-15); BUN 9 mg/dL (7-18); BUN/Creat Ratio 13.2 RATIO (10-20); Calcium,Total 9.2 mg/dL (8.5-10.1); Chloride 109 mmol/L (98-107); Creatinine, Serum 0.68 mg/dL (0.55-1.02); EST Glomerular Filtration Rate 87 mL/min (>60); Est Glom Filt Rate - Afr Amer 106 mL/min (>60); Glucose 96 mg/dL (74-106); Potassium 3.7 mmol/L (3.5-5.1); Sodium Level 138 mmol/L (136-145)
[2022-09-01 06:50] LABS: Bedside Glucose 94 mg/dL (74-106)
[2022-09-01 08:07] VITALS: BP 110/79; PULSE 78; O2SAT 93
[2022-09-01] MEDS: dilTIAZem CD 120 MG Capsule PO ×2 (08:10→17:35)
[2022-09-01] MEDS: Cyanocobalamin 500 MCG Tablet 1000 MCG PO (08:11)
[2022-09-01] MEDS: Menthol/Lanolin/Calamine/Znox 113 GM Tube 1 APPLIC TOPICAL ×2 (08:11→21:22)
[2022-09-01] MEDS: metFORMIN HCl 500 MG Tablet PO ×2 (08:11→17:35)
[2022-09-01] MEDS: Potassium Chloride Oral Tablet 20 MEQ PO ×2 (08:11→17:35)
[2022-09-01 08:14] VITALS: PULSE 86; O2SAT 93
--- NOTE | 2022-09-01 08:19 | NURSING ---
Stuntman Note; Activity Asset: Complete Isabelle returns to [facility] for more therapy. Isabelle remains independent in her choice of daily activities such as watching tv, reading talking w/family and friends on the phone or visiting w/them. She welcomes visit from the bond underwriter and therapy dog, is not interested in group activities at this time, will continue to do social visit and encourage small group activities for social well-being.
--- NOTE | 2022-09-01 11:20 | NS ---
Provided copy of daily specials/first choice menu w/ instructions on how to order. Res states doesn't really have any food dislikes.
[2022-09-01 16:00] VITALS: BP 117/67; PULSE 60; RESP 16; TEMP 35.9; O2SAT 97
[2022-09-01] MEDS: MELATONIN 3 MG TABLET PO (21:22)
[2022-09-02] MEDS: Famotidine 20 MG Tablet 40 MG PO ×2 (06:01→16:33)
[2022-09-02] MEDS: APIXABAN 2.5 MG TABLET (WCH) PO ×2 (06:01→16:33)
[2022-09-02] MEDS: lamoTRIgine 100 MG Tablet PO ×2 (06:01→16:33)
[2022-09-02] MEDS: Senna/Docusate Sodium 1 Tablet PO ×2 (06:01→16:34)
[2022-09-02] MEDS: Furosemide 40 MG Tablet PO (06:01)
[2022-09-02 06:02] VITALS: BP 131/64; PULSE 60
[2022-09-02] MEDS: DULoxetine Hcl 30 MG Capsule PO (06:02)
[2022-09-02] MEDS: Losartan Potassium 25 MG Tablet PO (06:02)
[2022-09-02] MEDS: Metoprolol(XL)Succ 25 MG Tablet PO (06:02)
[2022-09-02 06:21] LABS: Bedside Glucose 104 mg/dL (74-106)
[2022-09-02] MEDS: Cyanocobalamin 500 MCG Tablet 1000 MCG PO (08:01)
[2022-09-02] MEDS: Potassium Chloride Oral Tablet 20 MEQ PO ×2 (08:01→16:33)
[2022-09-02] MEDS: metFORMIN HCl 500 MG Tablet PO ×2 (08:01→17:33)
[2022-09-02] MEDS: dilTIAZem CD 120 MG Capsule PO ×2 (08:01→16:33)
[2022-09-02 08:07] VITALS: BP 118/47; PULSE 72
[2022-09-02] MEDS: Menthol/Lanolin/Calamine/Znox 113 GM Tube 1 APPLIC TOPICAL ×2 (09:44→21:45)
[2022-09-02 10:00] VITALS: PULSE 49; O2SAT 97
[2022-09-02 13:48] VITALS: BP 112/40; PULSE 60; RESP 22; TEMP 36; O2SAT 97
[2022-09-02 16:39] VITALS: BP 122/59; PULSE 61
[2022-09-02] MEDS: MELATONIN 3 MG TABLET PO (21:45)
[2022-09-03 05:44] VITALS: BP 121/61; PULSE 72
[2022-09-03] MEDS: Senna/Docusate Sodium 1 Tablet PO ×2 (05:44→17:29)
[2022-09-03] MEDS: Metoprolol(XL)Succ 25 MG Tablet PO (05:44)
[2022-09-03] MEDS: APIXABAN 2.5 MG TABLET (WCH) PO ×2 (05:45→17:29)
[2022-09-03] MEDS: Furosemide 40 MG Tablet PO (05:45)
[2022-09-03] MEDS: Losartan Potassium 25 MG Tablet PO (05:45)
[2022-09-03] MEDS: lamoTRIgine 100 MG Tablet PO ×2 (05:45→17:29)
[2022-09-03] MEDS: Famotidine 20 MG Tablet 40 MG PO ×2 (05:45→17:29)
[2022-09-03] MEDS: DULoxetine Hcl 30 MG Capsule PO (05:45)
[2022-09-03 06:20] LABS: Bedside Glucose 88 mg/dL (74-106)
[2022-09-03] MEDS: dilTIAZem CD 120 MG Capsule PO ×2 (08:33→17:30)
[2022-09-03] MEDS: metFORMIN HCl 500 MG Tablet PO ×2 (08:33→17:29)
[2022-09-03] MEDS: Cyanocobalamin 500 MCG Tablet 1000 MCG PO (08:33)
[2022-09-03] MEDS: Potassium Chloride Oral Tablet 20 MEQ PO ×2 (08:33→17:30)
--- NOTE | 2022-09-03 10:32 | NURSING ---
Pt more confused at this time. pt stating my daddy is here to pick me up my mommy isn't doing well. Pt's family called to help reorient pt. Dr. Pride updated and N.O. for urinalysis. Will continue to monitor. arrived and is sitting with pt at this time.
[2022-09-03] MEDS: Menthol/Lanolin/Calamine/Znox 113 GM Tube 1 APPLIC TOPICAL ×2 (11:54→21:37)
[2022-09-03 13:25] LABS: Color, Urine Yellow (Yellow); Glucose, Dipstick Normal (Normal); Ketone-Dipstick Negative (Negative); Leukocyte Esterase-Dipstick 500 /ul (Negative); Nitrite-Dipstick Positive (Negative); Occult Blood-Urine 25 /ul (Negative); Protein-Dipstick Negative (Negative); Urine Bilirubin Dipstick Negative (Negative); Urine Clarity Sl. Cloudy (Clear); Urine Urobilinogen Normal (Normal)
[2022-09-03 13:36] LABS: Red Blood Cells-Urine 0-5 SEEN /hpf (0-5); Squamous Epithelial Cells - UA 0-5 SEEN /hpf (5-10); White Blood Cells 10-25 SEEN /hpf (0-5)
[2022-09-03 13:37] LABS: Bacteria 3+ /hpf (None Seen); Mucous, Urine 1+ /hpf (<or=2+)
[2022-09-03] MEDS: Cefdinir 300 MG Capsule PO (14:57)
[2022-09-03 16:00] VITALS: BP 110/36; PULSE 95; RESP 21; TEMP 36.1; O2SAT 97
[2022-09-03 17:34] VITALS: BP 112/55; PULSE 62
[2022-09-03] MEDS: MELATONIN 3 MG TABLET PO (20:16)
[2022-09-04 05:22] VITALS: BP 125/49; PULSE 68
[2022-09-04] MEDS: Famotidine 20 MG Tablet 40 MG PO ×2 (05:22→17:34)
[2022-09-04] MEDS: Metoprolol(XL)Succ 25 MG Tablet PO (05:22)
[2022-09-04] MEDS: Cefdinir 300 MG Capsule PO ×2 (05:22→17:34)
[2022-09-04] MEDS: Losartan Potassium 25 MG Tablet PO (05:22)
[2022-09-04] MEDS: APIXABAN 2.5 MG TABLET (WCH) PO ×2 (05:22→17:34)
[2022-09-04] MEDS: Furosemide 40 MG Tablet PO (05:22)
[2022-09-04] MEDS: DULoxetine Hcl 30 MG Capsule PO (05:22)
[2022-09-04] MEDS: lamoTRIgine 100 MG Tablet PO ×2 (05:22→17:34)
[2022-09-04] MEDS: Senna/Docusate Sodium 1 Tablet PO ×2 (05:23→17:34)
[2022-09-04 06:35] LABS: Bedside Glucose 95 mg/dL (74-106)
[2022-09-04] MEDS: dilTIAZem CD 120 MG Capsule PO ×2 (08:19→17:34)
[2022-09-04] MEDS: Cyanocobalamin 500 MCG Tablet 1000 MCG PO (08:19)
[2022-09-04] MEDS: metFORMIN HCl 500 MG Tablet PO ×2 (08:19→17:35)
[2022-09-04] MEDS: Potassium Chloride Oral Tablet 20 MEQ PO ×2 (08:19→17:34)
[2022-09-04] MEDS: Menthol/Lanolin/Calamine/Znox 113 GM Tube 1 APPLIC TOPICAL ×2 (08:20→20:09)
[2022-09-04 14:03] VITALS: BP 118/61; PULSE 67; RESP 16; TEMP 36; O2SAT 96
[2022-09-04] MEDS: MELATONIN 3 MG TABLET PO (20:10)
[2022-09-04 21:01] VITALS: PULSE 56; RESP 16; O2SAT 98
[2022-09-05] MEDS: Senna/Docusate Sodium 1 Tablet PO ×2 (05:35→17:09)
[2022-09-05 05:36] VITALS: BP 111/53; PULSE 68
[2022-09-05] MEDS: Metoprolol(XL)Succ 25 MG Tablet PO (05:36)
[2022-09-05] MEDS: Cefdinir 300 MG Capsule PO ×2 (05:36→17:08)
[2022-09-05] MEDS: Famotidine 20 MG Tablet 40 MG PO ×2 (05:36→17:08)
[2022-09-05] MEDS: Furosemide 40 MG Tablet PO (05:36)
[2022-09-05] MEDS: lamoTRIgine 100 MG Tablet PO ×2 (05:36→17:08)
[2022-09-05] MEDS: DULoxetine Hcl 30 MG Capsule PO (05:37)
[2022-09-05] MEDS: APIXABAN 2.5 MG TABLET (WCH) PO ×2 (05:37→17:07)
[2022-09-05] MEDS: Losartan Potassium 25 MG Tablet PO (05:37)
--- NOTE | 2022-09-05 06:35 | NURSING ---
Pt self-transferred to toilet without sock on this morning. Blood noted on floor when assisting pt. Pt has callus on left foot that has an open area on it. Area cleansed, ABD and gauze applied. Pt encouraged to use calllight for assistance.
[2022-09-05 06:41] LABS: Bedside Glucose 110 mg/dL (74-106)
[2022-09-05] MEDS: metFORMIN HCl 500 MG Tablet PO ×2 (07:56→17:07)
[2022-09-05] MEDS: Cyanocobalamin 500 MCG Tablet 1000 MCG PO (07:56)
[2022-09-05] MEDS: Potassium Chloride Oral Tablet 20 MEQ PO ×2 (07:56→17:07)
[2022-09-05] MEDS: dilTIAZem CD 120 MG Capsule PO ×2 (07:56→17:07)
[2022-09-05] MEDS: Menthol/Lanolin/Calamine/Znox 113 GM Tube 1 APPLIC TOPICAL ×2 (07:57→21:12)
[2022-09-05 08:47] VITALS: PULSE 58; RESP 18; O2SAT 97
[2022-09-05 15:18] VITALS: BP 116/64; PULSE 60; RESP 16; TEMP 36.3; O2SAT 96
--- NOTE | 2022-09-05 15:40 | NURSING ---
son & daughter in law with many questions regarding pt falls at home, tremors of hands, medications, etc. message left with DR Pride that they would like to speak with him via phone call Tuesday.
[2022-09-05] MEDS: MELATONIN 3 MG TABLET PO (21:14)
[2022-09-05] MEDS: Acetaminophen 500 MG Tablet 1000 MG PO (22:53)
[2022-09-06 06:17] VITALS: BP 121/70; PULSE 66
[2022-09-06] MEDS: Metoprolol(XL)Succ 25 MG Tablet PO (06:17)
[2022-09-06] MEDS: Famotidine 20 MG Tablet 40 MG PO ×2 (06:18→18:07)
[2022-09-06] MEDS: Cefdinir 300 MG Capsule PO ×2 (06:18→18:06)
[2022-09-06] MEDS: Senna/Docusate Sodium 1 Tablet PO ×2 (06:18→18:07)
[2022-09-06] MEDS: lamoTRIgine 100 MG Tablet PO ×2 (06:19→18:07)
[2022-09-06] MEDS: DULoxetine Hcl 30 MG Capsule PO (06:19)
[2022-09-06] MEDS: Furosemide 40 MG Tablet PO (06:19)
[2022-09-06] MEDS: APIXABAN 2.5 MG TABLET (WCH) PO ×2 (06:19→18:07)
[2022-09-06] MEDS: Losartan Potassium 25 MG Tablet PO (06:19)
[2022-09-06 06:31] LABS: Bedside Glucose 97 mg/dL (74-106)
[2022-09-06] MEDS: Potassium Chloride Oral Tablet 20 MEQ PO ×2 (08:51→18:07)
[2022-09-06] MEDS: Cyanocobalamin 500 MCG Tablet 1000 MCG PO (08:51)
[2022-09-06] MEDS: metFORMIN HCl 500 MG Tablet PO ×2 (08:51→18:06)
[2022-09-06] MEDS: dilTIAZem CD 120 MG Capsule PO ×2 (08:51→18:06)
[2022-09-06] MEDS: Menthol/Lanolin/Calamine/Znox 113 GM Tube 1 APPLIC TOPICAL ×2 (10:30→20:12)
[2022-09-06 11:45] VITALS: PULSE 70; RESP 16; O2SAT 98
[2022-09-06 15:43] VITALS: BP 103/54; PULSE 57; RESP 14; TEMP 36; O2SAT 96
--- NOTE | 2022-09-06 16:46 | CASEMGMT ---
Social Work BIMS () and PHQ-9 (07/12) completed for MDS assessment. Char Sosa MSW RESAW OPERATOR
[2022-09-06 18:18] VITALS: BP 148/58; PULSE 63
[2022-09-06] MEDS: MELATONIN 3 MG TABLET PO (20:09)
[2022-09-07 05:35] VITALS: BP 118/55; PULSE 60
[2022-09-07] MEDS: DULoxetine Hcl 30 MG Capsule PO (05:35)
[2022-09-07] MEDS: Famotidine 20 MG Tablet 40 MG PO ×2 (05:35→17:45)
[2022-09-07] MEDS: Losartan Potassium 25 MG Tablet PO (05:35)
[2022-09-07] MEDS: Senna/Docusate Sodium 1 Tablet PO ×2 (05:35→17:45)
[2022-09-07] MEDS: Cefdinir 300 MG Capsule PO ×2 (05:35→17:45)
[2022-09-07] MEDS: APIXABAN 2.5 MG TABLET (WCH) PO ×2 (05:35→17:46)
[2022-09-07] MEDS: Metoprolol(XL)Succ 25 MG Tablet PO (05:35)
[2022-09-07] MEDS: Furosemide 40 MG Tablet PO (05:35)
[2022-09-07] MEDS: lamoTRIgine 100 MG Tablet PO ×2 (05:35→17:45)
[2022-09-07 05:48] LABS: Absolute Lymphocyte Count 1.57 X10^3/uL (0.83-4.51); Absolute Neutrophil Count 5.2 X10^3/uL (2.0-7.7); Basophil# 0.06 X10^3/uL; Basophil% 0.7 % (0-1); Eosinophil# 0.66 X10^3/uL; Eosinophils% 8.1 % (0-5); Hematocrit 38.3 % (37-47); Hemoglobin 11.8 g/dL (12.0-15.0); Lymphocyte # 1.57 X10^3/ul (0.83-4.51); Lymphocyte % 19.3 % (19-41); Mean Corp Hgb Conc 30.8 g/dL (32-36); Mean Corpuscular Volume 100.5 fL (81-99); Mean Platelet Vol. 10.2 fl (6.2-12.0); Monocyte# 0.62 X10^3/uL; Monocyte% 7.6 % (0-10); NRBC Flagged by Analyzer 0 % (0-5); Neutrophil % 63.8 % (47-70); Platelet Count 303 K/mm3 (150-450); RBC Distribution Width CV 15.9 % (11.6-14.6); RBC Distribution Width SD 59.1 fl (35.1-43.9); Red Blood Count 3.81 M/mm3 (4.2-5.4); White Blood Count 8.2 K/mm3 (4.4-11.0)
[2022-09-07 06:23] LABS: Anion Gap 3 (5-15); BUN 10 mg/dL (7-18); BUN/Creat Ratio 14.2 RATIO (10-20); Calcium,Total 9.3 mg/dL (8.5-10.1); Chloride 105 mmol/L (98-107); EST Glomerular Filtration Rate 85 mL/min (>60); Est Glom Filt Rate - Afr Amer 102 mL/min (>60); Glucose 98 mg/dL (74-106); Potassium 4.1 mmol/L (3.5-5.1); Sodium Level 137 mmol/L (136-145)
[2022-09-07 06:41] LABS: Bedside Glucose 91 mg/dL (74-106)
[2022-09-07] MEDS: Cyanocobalamin 500 MCG Tablet 1000 MCG PO (08:26)
[2022-09-07] MEDS: dilTIAZem CD 120 MG Capsule PO ×2 (08:26→17:46)
[2022-09-07] MEDS: Potassium Chloride Oral Tablet 20 MEQ PO ×2 (08:27→17:46)
[2022-09-07] MEDS: metFORMIN HCl 500 MG Tablet PO ×2 (08:27→17:46)
[2022-09-07] MEDS: Menthol/Lanolin/Calamine/Znox 113 GM Tube 1 APPLIC TOPICAL ×2 (08:34→22:04)
[2022-09-07] MEDS: Tuberculin,Purif.prot.deriv. 50 TU/ML Vial 0.1 ML ID (09:23)
--- NOTE | 2022-09-07 11:24 | NURSING ---
Addendum entered by Zahra De Leon 09/07/22 13:21: Dr. Romero returned called, he said he would be by to see patient tomorrow. Original Note: Dr. Romero's office notified of podiatry consult.
[2022-09-07 12:04] VITALS: BMI 26.2
--- NOTE | 2022-09-07 12:56 | NURSING ---
Addendum entered by Zahra De Leon 09/07/22 15:19: Call back from office, appt set up, added to flowsheet. Original Note: Called Dr. Wing's office, left message requesting return call to schedule appointment.
[2022-09-07 15:04] VITALS: BP 117/46; PULSE 65; RESP 18; TEMP 36.2; O2SAT 97
[2022-09-07 22:00] VITALS: PULSE 72; RESP 16; O2SAT 98
[2022-09-07] MEDS: MELATONIN 3 MG TABLET PO (22:06)
[2022-09-08] MEDS: Losartan Potassium 25 MG Tablet PO (06:05)
[2022-09-08] MEDS: Cefdinir 300 MG Capsule PO ×2 (06:05→17:33)
[2022-09-08] MEDS: Famotidine 20 MG Tablet 40 MG PO ×2 (06:05→17:33)
[2022-09-08] MEDS: Furosemide 40 MG Tablet PO (06:05)
[2022-09-08] MEDS: DULoxetine Hcl 30 MG Capsule PO (06:05)
[2022-09-08] MEDS: lamoTRIgine 100 MG Tablet PO ×2 (06:05→17:33)
[2022-09-08] MEDS: APIXABAN 2.5 MG TABLET (WCH) PO ×2 (06:05→17:32)
[2022-09-08 06:06] VITALS: BP 125/49; PULSE 69
[2022-09-08] MEDS: Metoprolol(XL)Succ 25 MG Tablet PO (06:06)
[2022-09-08] MEDS: Senna/Docusate Sodium 1 Tablet PO ×2 (06:08→17:34)
[2022-09-08] MEDS: dilTIAZem CD 120 MG Capsule PO ×2 (08:14→17:31)
[2022-09-08] MEDS: metFORMIN HCl 500 MG Tablet PO ×2 (08:15→17:31)
[2022-09-08] MEDS: Cyanocobalamin 500 MCG Tablet 1000 MCG PO (08:15)
[2022-09-08] MEDS: Menthol/Lanolin/Calamine/Znox 113 GM Tube 1 APPLIC TOPICAL ×2 (08:15→21:12)
[2022-09-08] MEDS: Potassium Chloride Oral Tablet 20 MEQ PO ×2 (08:15→17:31)
[2022-09-08 08:50] LABS: Bedside Glucose 98 mg/dL (74-106)
[2022-09-08 09:02] VITALS: PULSE 70; RESP 16; O2SAT 98
--- NOTE | 2022-09-08 10:01 | CASEMGMT ---
Social Work IDT met with patient and for care plan meeting. Discussed patients progress in PT/OT/ST/SN. Educated to Medicare benefit. [place] [id number]. Pt's plan is to DC home with . Offered for to be present during therapy sessions to determine if pt can return home. Pt will not and is not independent. Pt has poor insight and safety awareness. Recommending /, hands- on care at DC. SW to continue to follow. LULY CeeW
--- NOTE | 2022-09-08 10:20 | CON.PCM_ITS ---
Assessment & Plan Assessment/Plan (1) Hallux valgus (acquired), right foot: PLAN: Exam performed. Toenails 1 through 5 bilaterally debrided in length and thickness without incident. Right plantar hallux wound was excisionally debrided down to including level of subcutaneous tissue using a #15 blade of all nonviable tissue was removed. Topical anesthesia used. Patient tolerated procedure well. Hemostasis obtained with light compression. Pre and postdebridement measurements documented in note. Wound was dressed with Betadine paint dry sterile dressing. Patient will offload the wound with a surgical shoe on the right. This was discussed with nursing. We will continue to follow patient weekly at this point patient can follow-up in our clinic at 1 week upon discharge. (2) Hallux valgus (acquired), left foot: (3) Tinea unguium: (4) Pain in right toe(s): (5) Pain in left toe(s): (6) Non-pressure chronic ulcer of other part of right foot with fat layer exposed: HPI Consult Data Date of Consult: 09/08/22 HPI Narrative HPI Narrative: MAGDY MIRAMONTES, is a 81 F who presents painful elongated toenails. Full-thickness wound to plantar right foot. Severe hallux valgus deformity. Patient denies constitutional's or pain at this time. [facility] Medical History Acute postoperative pain of right knee Ambulates with cane Aortic stenosis Arthritis Atherosclerotic heart disease of [place] coronary artery without angina pectoris Back pain Cardiology follow-up encounter Cardiomyopathy Cellulitis of chest wall Chronic constipation Chronic cough Debility Depression Diabetes Diabetes mellitus Diabetic polyneuropathy Dietary restriction DM2 (diabetes mellitus, type 2) Epilepsy Essential hypertension Former smoker H/O cardiac murmur History of atrial fibrillation History of echocardiogram History of left heart catheterization (LHC) (~06/02/22) History of pain when walking History of steroid therapy History of stress test Hx of back injury Hx of vaginal delivery Hypertension Hypertension Inability to ambulate due to knee Injury of back Injury of head and neck Nephrolithiasis Neuropathy Neuropathy, diabetic Paroxysmal atrial fibrillation Pericardial effusion Tremor Vitamin D deficiency Wears glasses Home Medications duloxetine 30 mg capsule,delayed release 30 mg PO DAILY NEUROPATHY 09/22/20 [History Last Taken 08/28/22] aspirin 81 mg tablet,delayed release 81 mg PO DAILY HEART HEALTH 06/09/22 [History Last Taken 08/29/22] nitroglycerin 0.4 mg sublingual tablet 0.4 mg sublingual Q5M PRN Cardiac/Chest Pain #0 tabs 06/11/22 [Rx Last Taken Unknown] potassium chloride 20 mEq tablet,extended release(part/cryst) (Klor-Con M) 20 meq PO BIDCM Supplement 30 days #60 tabs 06/29/22 [Rx Last Taken 08/29/22] Lactobacillus rhamnosus GG 10 billion cell-inulin 200 mg capsule ([facility]) 1 cap PO DAILY PRN GUT HEALTH 08/10/22 [History Last Taken Unknown] acetaminophen 325 mg tablet (Tylenol) 650 mg PO ONCE PRN pain 08/10/22 [History Last Taken Unknown] cyanocobalamin (vitamin B-12) 1,000 mcg tablet (Vitamin B-12) 1,000 mcg PO DAILY supplement 08/10/22 [History Last Taken 08/29/22] famotidine 40 mg tablet 40 mg PO BID stomach 08/10/22 [History Last Taken 08/29/22] furosemide 40 mg tablet 40 mg PO DAILY Diuretic 08/10/22 [History Last Taken 08/29/22] melatonin 3 mg tablet 3 mg PO HS sleep 08/10/22 [History Last Taken Unknown] metformin 500 mg tablet 500 mg PO BID blood sugar 08/10/22 [History Last Taken Unknown] ondansetron 4 mg disintegrating tablet 4 mg PO Q6H PRN nausea and vomiting 08/10 [History Last Taken Unknown] diltiazem HCl 120 mg capsule,extended release 24 hr (Cartia XT) 120 mg PO BID heart 08/29/22 [History Last Taken 08/29/22] apixaban 2.5 mg tablet (Eliquis) 2.5 mg PO BID blood thinner 08/30/22 [History Last Taken Unknown] lamotrigine 100 mg tablet 100 mg PO BID seizure 08/30/22 [History Last Taken Unknown] losartan 25 mg tablet 25 mg PO DAILY blood pressure 08/30/22 [History Last Taken Unknown] metoprolol succinate 25 mg tablet,extended release 24 hr 25 mg PO DAILY blood pressure 08/30/22 [History Last Taken Unknown] Allergy/AdvReac Type Severity Reaction Status Date / Time bacitracin Allergy Rash Verified 08/29/22 13:54 [From Neosporin ([id number])] bacitracin zinc Allergy Rash Verified 08/29/22 13:54 [From Neosporin ([id number])] levetiracetam Allergy Other Verified 08/29/22 13:54 neomycin sulfate Allergy Rash Verified 08/29/22 13:54 [From Neosporin ([id number])] nickel Allergy Other Verified 08/29/22 13:54 polymyxin B Allergy Rash Verified 08/29/22 13:54 [From Neosporin ([id number])] sulfamethoxazole Allergy Itching Verified 08/29/22 13:54 [From Bactrim] trimethoprim [From Bactrim] Allergy Itching Verified 08/29/22 13:54 codeine AdvReac Nausea Verified 08/29/22 13:54 milk AdvReac Nausea/Vom/ Verified 08/29/22 13:54 Diarrhea Family History Father No problems noted. Mother No problems noted. Surgical History Amputated toe of right foot Deviated septum History of appendectomy History of cholecystectomy History of hysterectomy History of neck surgery History of tonsillectomy History of total right knee replacement (TKR) Hx of cystoscopy Hx of fusion of cervical spine S/P total knee arthroplasty Social History household members: spouse Smoking Status: Former smoker alcohol intake: never substance use type: does not use caffeine: No what type of physical activity do you participate in: other details: physical therapy seatbelt use: always do you feel safe at home: Yes ROS Constitutional Constitutional: Denies daytime sleepiness, lethargy or malaise Eyes Eyes: Denies blind spots, bloody eye or discharge from eye(s) ENT HEENT: Denies change in voice, dental pain or foreign body in nose Cardiovascular Cardiovascular: Denies abdominal pain, claudication or clubbing Respiratory/Chest Respiratory/Chest: Denies change in phlegm color, dyspnea on exertion or nail bed cyanosis Genitourinary Genitourinary: Denies burning urination, dribbling or genital lesions Integumentary Integumentary: Denies change in hair, change in pigmentation or new lesions Physical Exam Narrative Dorsalis pedis posterior tibial pulses palpable to bilateral feet. Capillary fill time brisk. Digital hair growth noted. Intact light touch protective sensation. Painful elongated and thickened. Toenails digits 1234 and 5 to bilateral feet. Callus noted to plantar first metatarsal phalangeal joint. Predebridement was just callus postdebridement wound healed today wound is 0.2 x 1.0 cm x 0.2 cm. Wound demonstrated clean granular base with clean periwound edges postdebridement. No evidence of deep probing undermining or signs of infection at current. Patient has significant hallux valgus deformity to bilateral feet. This is likely contributing to wound formation on the right. Lab / Micro Data Result Diagrams: 09/07/22 05:11 09/07/22 05:11 Labs: Laboratory Results - last 24 hr 09/08/22 06:01: POC Glucose 98
--- NOTE | 2022-09-08 10:20 | NURSING ---
Dr. Romero in to see pt. New orders to R great toe. Dr. Romero changed dressing to R great toe using betadine and dry gauze at this time. Pt tolerated well.
--- NOTE | 2022-09-08 12:55 | NURSING ---
Pt's asking about a ECHO that was to be completed that was ordered by the [facility]. stated appt was cancelled and was unsure why. Called [facility] and Appt was cancelled d/t ordering provider didn't want ECHO completed until November. Will update pt and .
[2022-09-08 13:40] VITALS: BP 117/68; PULSE 77; RESP 16; TEMP 36.2; O2SAT 99
[2022-09-08] MEDS: MELATONIN 3 MG TABLET PO (21:11)
[2022-09-09 04:50] VITALS: BP 109/53; PULSE 62
[2022-09-09] MEDS: Losartan Potassium 25 MG Tablet PO (04:50)
[2022-09-09] MEDS: Metoprolol(XL)Succ 25 MG Tablet PO (04:50)
[2022-09-09] MEDS: Famotidine 20 MG Tablet 40 MG PO ×2 (04:50→17:28)
[2022-09-09] MEDS: DULoxetine Hcl 30 MG Capsule PO (04:50)
[2022-09-09] MEDS: APIXABAN 2.5 MG TABLET (WCH) PO ×2 (04:50→17:26)
[2022-09-09] MEDS: lamoTRIgine 100 MG Tablet PO ×2 (04:50→17:27)
[2022-09-09] MEDS: Furosemide 40 MG Tablet PO (04:51)
[2022-09-09] MEDS: Cefdinir 300 MG Capsule PO ×2 (04:51→17:27)
[2022-09-09] MEDS: Senna/Docusate Sodium 1 Tablet PO ×2 (04:51→17:28)
[2022-09-09 06:35] LABS: Bedside Glucose 92 mg/dL (74-106)
--- NOTE | 2022-09-09 08:16 | MDS.RN ---
Information for the mds was obtained from review of the clinical record, interview of resident, staff, and direct observation of resident's care.
[2022-09-09] MEDS: metFORMIN HCl 500 MG Tablet PO ×2 (08:56→17:25)
[2022-09-09] MEDS: Potassium Chloride Oral Tablet 20 MEQ PO ×2 (08:56→17:24)
[2022-09-09] MEDS: Cyanocobalamin 500 MCG Tablet 1000 MCG PO (08:57)
[2022-09-09] MEDS: dilTIAZem CD 120 MG Capsule PO ×2 (08:57→17:26)
[2022-09-09] MEDS: BACITRACIN 15 GM Tube 1 APPLIC TOPICAL (09:12)
[2022-09-09 14:15] VITALS: BP 117/55; PULSE 58; RESP 14; TEMP 36.1; O2SAT 99
[2022-09-09] MEDS: Menthol/Lanolin/Calamine/Znox 113 GM Tube 1 APPLIC TOPICAL ×2 (17:23→21:47)
[2022-09-09] MEDS: MELATONIN 3 MG TABLET PO (21:46)
[2022-09-10 05:54] VITALS: BP 117/45; RESP 66
[2022-09-10 05:56] VITALS: PULSE 81
[2022-09-10] MEDS: Cefdinir 300 MG Capsule PO ×2 (05:56→17:39)
[2022-09-10] MEDS: Metoprolol(XL)Succ 25 MG Tablet PO (05:56)
[2022-09-10] MEDS: Famotidine 20 MG Tablet 40 MG PO ×2 (05:56→17:39)
[2022-09-10] MEDS: APIXABAN 2.5 MG TABLET (WCH) PO ×2 (05:56→17:39)
[2022-09-10] MEDS: Senna/Docusate Sodium 1 Tablet PO ×2 (05:56→17:39)
[2022-09-10] MEDS: DULoxetine Hcl 30 MG Capsule PO (05:57)
[2022-09-10] MEDS: lamoTRIgine 100 MG Tablet PO ×2 (05:57→17:39)
[2022-09-10] MEDS: Losartan Potassium 25 MG Tablet PO (05:57)
[2022-09-10] MEDS: Furosemide 40 MG Tablet PO (05:57)
[2022-09-10 06:36] LABS: Bedside Glucose 103 mg/dL (74-106)
[2022-09-10 07:50] VITALS: BP 118/59; PULSE 84
[2022-09-10] MEDS: metFORMIN HCl 500 MG Tablet PO ×2 (07:52→17:39)
[2022-09-10] MEDS: dilTIAZem CD 120 MG Capsule PO ×2 (07:52→17:39)
[2022-09-10] MEDS: Potassium Chloride Oral Tablet 20 MEQ PO ×2 (07:53→17:39)
[2022-09-10] MEDS: Menthol/Lanolin/Calamine/Znox 113 GM Tube 1 APPLIC TOPICAL ×2 (07:53→21:15)
[2022-09-10] MEDS: Cyanocobalamin 500 MCG Tablet 1000 MCG PO (07:53)
[2022-09-10 10:00] VITALS: PULSE 52; O2SAT 95
[2022-09-10] MEDS: BACITRACIN 15 GM Tube 1 APPLIC TOPICAL (10:03)
[2022-09-10 14:12] VITALS: BP 110/54; PULSE 60; RESP 15; TEMP 35.8; O2SAT 98
[2022-09-10 17:31] VITALS: BP 115/47; PULSE 68; O2SAT 94
[2022-09-10] MEDS: MELATONIN 3 MG TABLET PO (21:14)
[2022-09-11] MEDS: BACITRACIN 15 GM Tube 1 APPLIC TOPICAL (06:11)
[2022-09-11 06:13] VITALS: BP 114/46; PULSE 64
[2022-09-11] MEDS: lamoTRIgine 100 MG Tablet PO ×2 (06:13→17:45)
[2022-09-11] MEDS: DULoxetine Hcl 30 MG Capsule PO (06:13)
[2022-09-11] MEDS: Losartan Potassium 25 MG Tablet PO (06:13)
[2022-09-11] MEDS: Furosemide 40 MG Tablet PO (06:13)
[2022-09-11] MEDS: Famotidine 20 MG Tablet 40 MG PO ×2 (06:13→17:45)
[2022-09-11] MEDS: APIXABAN 2.5 MG TABLET (WCH) PO ×2 (06:13→17:44)
[2022-09-11] MEDS: Metoprolol(XL)Succ 25 MG Tablet PO (06:13)
[2022-09-11] MEDS: Senna/Docusate Sodium 1 Tablet PO ×2 (06:13→17:45)
[2022-09-11 06:36] LABS: Bedside Glucose 96 mg/dL (74-106)
[2022-09-11] MEDS: dilTIAZem CD 120 MG Capsule PO (08:15)
[2022-09-11] MEDS: metFORMIN HCl 500 MG Tablet PO ×2 (08:15→17:44)
[2022-09-11] MEDS: Potassium Chloride Oral Tablet 20 MEQ PO ×2 (08:15→17:44)
[2022-09-11] MEDS: Cyanocobalamin 500 MCG Tablet 1000 MCG PO (08:16)
[2022-09-11] MEDS: Menthol/Lanolin/Calamine/Znox 113 GM Tube 1 APPLIC TOPICAL ×2 (08:19→22:45)
[2022-09-11 08:23] VITALS: BP 103/55; PULSE 74
[2022-09-11 16:00] VITALS: BP 112/44; PULSE 56; RESP 16; TEMP 36.1; O2SAT 93
[2022-09-11 17:50] VITALS: BP 85/61; PULSE 52
[2022-09-11] MEDS: MELATONIN 3 MG TABLET PO (22:42)
[2022-09-11] MEDS: Acetaminophen 500 MG Tablet 1000 MG PO (22:44)
[2022-09-12 06:49] VITALS: BP 117/56; PULSE 106
[2022-09-12] MEDS: Metoprolol(XL)Succ 25 MG Tablet PO (06:49)
[2022-09-12] MEDS: APIXABAN 2.5 MG TABLET (WCH) PO ×2 (06:49→17:16)
[2022-09-12] MEDS: Losartan Potassium 25 MG Tablet PO (06:50)
[2022-09-12] MEDS: lamoTRIgine 100 MG Tablet PO ×2 (06:50→17:16)
[2022-09-12] MEDS: Famotidine 20 MG Tablet 40 MG PO ×2 (06:50→17:15)
[2022-09-12] MEDS: DULoxetine Hcl 30 MG Capsule PO (06:50)
[2022-09-12] MEDS: Furosemide 40 MG Tablet PO (06:50)
[2022-09-12] MEDS: Senna/Docusate Sodium 1 Tablet PO ×2 (06:50→17:15)
[2022-09-12 06:51] LABS: Bedside Glucose 94 mg/dL (74-106)
[2022-09-12] MEDS: metFORMIN HCl 500 MG Tablet PO ×2 (08:12→17:15)
[2022-09-12] MEDS: Cyanocobalamin 500 MCG Tablet 1000 MCG PO (08:12)
[2022-09-12] MEDS: dilTIAZem CD 120 MG Capsule PO ×2 (08:12→17:15)
[2022-09-12] MEDS: BACITRACIN 15 GM Tube 1 APPLIC TOPICAL (08:12)
[2022-09-12] MEDS: Menthol/Lanolin/Calamine/Znox 113 GM Tube 1 APPLIC TOPICAL ×2 (08:13→21:47)
[2022-09-12] MEDS: Potassium Chloride Oral Tablet 20 MEQ PO ×2 (08:13→17:15)
[2022-09-12 09:30] VITALS: PULSE 65; O2SAT 95
[2022-09-12 15:42] VITALS: BP 101/49; PULSE 63; RESP 20; TEMP 36.5; O2SAT 99
[2022-09-12 17:20] VITALS: BP 106/61; PULSE 65
[2022-09-12] MEDS: MELATONIN 3 MG TABLET PO (21:45)
[2022-09-13 06:12] VITALS: BP 121/54; PULSE 70
[2022-09-13] MEDS: Senna/Docusate Sodium 1 Tablet PO ×2 (06:12→17:35)
[2022-09-13] MEDS: Losartan Potassium 25 MG Tablet PO (06:12)
[2022-09-13] MEDS: Metoprolol(XL)Succ 25 MG Tablet PO (06:12)
[2022-09-13] MEDS: Furosemide 40 MG Tablet PO (06:13)
[2022-09-13] MEDS: APIXABAN 2.5 MG TABLET (WCH) PO ×2 (06:13→17:34)
[2022-09-13] MEDS: lamoTRIgine 100 MG Tablet PO ×2 (06:13→17:34)
[2022-09-13] MEDS: Famotidine 20 MG Tablet 40 MG PO ×2 (06:13→17:34)
[2022-09-13] MEDS: DULoxetine Hcl 30 MG Capsule PO (06:13)
--- NOTE | 2022-09-13 06:16 | NURSING ---
Bactitracin to be applied later today when dressing change is complete.
--- NOTE | 2022-09-13 06:29 | NURSING ---
Pt questions when she will be discharged from TCU. Pt thinks she should be home right now and thinks she should be writing a check for her stay like her father did. Pt informs this nurse she spoke w/ her father about this yesterday. Reoriented to person, place, and time. Pt unable to recall specifically who she spoke to about discharge plans. Will report to oncoming nurse and continue to monitor.
[2022-09-13 06:30] LABS: Bedside Glucose 94 mg/dL (74-106)
[2022-09-13] MEDS: dilTIAZem CD 120 MG Capsule PO (08:35)
[2022-09-13] MEDS: Potassium Chloride Oral Tablet 20 MEQ PO ×2 (08:35→17:34)
[2022-09-13] MEDS: metFORMIN HCl 500 MG Tablet PO ×2 (08:36→17:34)
[2022-09-13] MEDS: Cyanocobalamin 500 MCG Tablet 1000 MCG PO (08:36)
[2022-09-13] MEDS: BACITRACIN 15 GM Tube 1 APPLIC TOPICAL (08:37)
[2022-09-13] MEDS: Menthol/Lanolin/Calamine/Znox 113 GM Tube 1 APPLIC TOPICAL ×2 (08:37→21:33)
--- NOTE | 2022-09-13 09:01 | NURSING ---
Addendum entered by Niru Rodríguez 09/13/22 11:03: returned call and ok for pt to wear her own shoes instead of surgical shoe d/t tripping hazard and not fitting properly. Addendum entered by Niru Rodríguez 09/13/22 09:07: message left with Dr Romero service secretary, awaiting return call Original Note: dressing changed to RT foot, callous dry w/out active bleeding. bacitracin applied. will notify infrastructure tech. pt does not like the way the surgical shoes fit and pt balance worsened with it on.
[2022-09-13 14:55] VITALS: BP 99/55; PULSE 77; RESP 16; TEMP 36.4; O2SAT 95
[2022-09-13 17:39] VITALS: BP 93/38; PULSE 70
[2022-09-13 19:30] VITALS: PULSE 68; RESP 16; O2SAT 95
[2022-09-13] MEDS: MELATONIN 3 MG TABLET PO (21:33)
[2022-09-14] MEDS: BACITRACIN 15 GM Tube 1 APPLIC TOPICAL (05:24)
[2022-09-14] MEDS: lamoTRIgine 100 MG Tablet PO ×2 (05:25→17:50)
[2022-09-14] MEDS: APIXABAN 2.5 MG TABLET (WCH) PO ×2 (05:25→17:50)
[2022-09-14] MEDS: Senna/Docusate Sodium 1 Tablet PO ×2 (05:25→17:50)
[2022-09-14] MEDS: Furosemide 40 MG Tablet PO (05:25)
[2022-09-14] MEDS: Losartan Potassium 25 MG Tablet PO (05:25)
[2022-09-14] MEDS: DULoxetine Hcl 30 MG Capsule PO (05:25)
[2022-09-14 05:26] VITALS: BP 122/40; PULSE 66
[2022-09-14] MEDS: Famotidine 20 MG Tablet 40 MG PO ×2 (05:26→17:50)
[2022-09-14] MEDS: Metoprolol(XL)Succ 25 MG Tablet PO (05:26)
[2022-09-14 05:32] LABS: Absolute Lymphocyte Count 1.48 X10^3/uL (0.83-4.51); Absolute Neutrophil Count 5.6 X10^3/uL (2.0-7.7); Basophil# 0.05 X10^3/uL; Basophil% 0.6 % (0-1); Eosinophil# 0.56 X10^3/uL; Eosinophils% 6.8 % (0-5); Hematocrit 35.8 % (37-47); Hemoglobin 11.4 g/dL (12.0-15.0); Lymphocyte # 1.48 X10^3/ul (0.83-4.51); Lymphocyte % 17.9 % (19-41); Mean Corp Hgb Conc 31.8 g/dL (32-36); Mean Corpuscular Hgb 31.8 pg (27.0-32.0); Mean Platelet Vol. 9.9 fl (6.2-12.0); Monocyte# 0.54 X10^3/uL; Monocyte% 6.5 % (0-10); NRBC Flagged by Analyzer 0 % (0-5); Neutrophil # 5.58 X10^3/uL (2.7-7.7); Neutrophil % 67.7 % (47-70); Platelet Count 260 K/mm3 (150-450); RBC Distribution Width CV 15.9 % (11.6-14.6); RBC Distribution Width SD 58.7 fl (35.1-43.9); Red Blood Count 3.58 M/mm3 (4.2-5.4); White Blood Count 8.3 K/mm3 (4.4-11.0)
[2022-09-14 05:48] VITALS: BP 122/40; PULSE 66
[2022-09-14 05:51] LABS: Anion Gap 7 (5-15); BUN 10 mg/dL (7-18); BUN/Creat Ratio 13.1 RATIO (10-20); Calcium,Total 9.2 mg/dL (8.5-10.1); Chloride 107 mmol/L (98-107); Creatinine, Serum 0.77 mg/dL (0.55-1.02); EST Glomerular Filtration Rate 76 mL/min (>60); Est Glom Filt Rate - Afr Amer 92 mL/min (>60); Glucose 101 mg/dL (74-106); Sodium Level 141 mmol/L (136-145)
[2022-09-14 06:16] LABS: Bedside Glucose 92 mg/dL (74-106)
[2022-09-14] MEDS: Potassium Chloride Oral Tablet 20 MEQ PO ×2 (08:29→17:50)
[2022-09-14] MEDS: Cyanocobalamin 500 MCG Tablet 1000 MCG PO (08:30)
[2022-09-14] MEDS: dilTIAZem CD 120 MG Capsule PO ×2 (08:30→17:50)
[2022-09-14] MEDS: metFORMIN HCl 500 MG Tablet PO ×2 (08:30→17:50)
[2022-09-14 08:35] VITALS: BP 111/55; PULSE 84
[2022-09-14 10:00] VITALS: PULSE 69; O2SAT 92
[2022-09-14 10:52] VITALS: BMI 25.7
[2022-09-14] MEDS: Menthol/Lanolin/Calamine/Znox 113 GM Tube 1 APPLIC TOPICAL ×2 (13:22→22:12)
[2022-09-14 16:00] VITALS: BP 155/63; PULSE 72; RESP 16; TEMP 36; O2SAT 95
[2022-09-14 17:55] VITALS: BP 122/71; PULSE 79
[2022-09-14] MEDS: MELATONIN 3 MG TABLET PO (22:11)
[2022-09-15] MEDS: lamoTRIgine 100 MG Tablet PO ×2 (05:39→17:16)
[2022-09-15] MEDS: APIXABAN 2.5 MG TABLET (WCH) PO ×2 (05:39→17:16)
[2022-09-15] MEDS: DULoxetine Hcl 30 MG Capsule PO (05:39)
[2022-09-15] MEDS: Senna/Docusate Sodium 1 Tablet PO ×2 (05:39→17:16)
[2022-09-15] MEDS: Famotidine 20 MG Tablet 40 MG PO ×2 (05:39→17:16)
[2022-09-15 05:43] VITALS: BP 108/52; PULSE 61
[2022-09-15] MEDS: Metoprolol(XL)Succ 25 MG Tablet PO (05:43)
[2022-09-15] MEDS: BACITRACIN 15 GM Tube 1 APPLIC TOPICAL (05:44)
[2022-09-15 05:46] VITALS: BP 108/52; PULSE 66; RESP 16; TEMP 36.4; O2SAT 99
[2022-09-15 06:45] LABS: Bedside Glucose 101 mg/dL (74-106)
[2022-09-15] MEDS: Potassium Chloride Oral Tablet 20 MEQ PO ×2 (08:45→17:16)
[2022-09-15] MEDS: Cyanocobalamin 500 MCG Tablet 1000 MCG PO (08:45)
[2022-09-15] MEDS: metFORMIN HCl 500 MG Tablet PO ×2 (08:45→17:16)
[2022-09-15 08:50] VITALS: BP 94/42; PULSE 62
[2022-09-15 13:43] VITALS: BP 113/61; PULSE 71; RESP 17; TEMP 36.8; O2SAT 94
[2022-09-15] MEDS: Menthol/Lanolin/Calamine/Znox 113 GM Tube 1 APPLIC TOPICAL ×2 (15:23→19:46)
[2022-09-15] MEDS: dilTIAZem CD 120 MG Capsule PO (17:16)
[2022-09-15] MEDS: MELATONIN 3 MG TABLET PO (19:46)
[2022-09-15 21:00] VITALS: PULSE 70; RESP 16; O2SAT 94
[2022-09-16] MEDS: BACITRACIN 15 GM Tube 1 APPLIC TOPICAL (06:36)
[2022-09-16] MEDS: APIXABAN 2.5 MG TABLET (WCH) PO ×2 (06:36→17:27)
[2022-09-16] MEDS: Famotidine 20 MG Tablet 40 MG PO ×2 (06:36→17:28)
[2022-09-16] MEDS: lamoTRIgine 100 MG Tablet PO ×2 (06:36→17:28)
[2022-09-16] MEDS: DULoxetine Hcl 30 MG Capsule PO (06:36)
[2022-09-16 06:37] VITALS: BP 120/60; PULSE 62
[2022-09-16] MEDS: Senna/Docusate Sodium 1 Tablet PO ×2 (06:37→17:28)
[2022-09-16] MEDS: Metoprolol(XL)Succ 25 MG Tablet PO (06:37)
[2022-09-16 06:41] LABS: Bedside Glucose 85 mg/dL (74-106)
[2022-09-16] MEDS: Potassium Chloride Oral Tablet 20 MEQ PO ×2 (08:42→17:26)
[2022-09-16] MEDS: Cyanocobalamin 500 MCG Tablet 1000 MCG PO (08:42)
[2022-09-16] MEDS: metFORMIN HCl 500 MG Tablet PO ×2 (08:42→17:26)
[2022-09-16] MEDS: Menthol/Lanolin/Calamine/Znox 113 GM Tube 1 APPLIC TOPICAL ×2 (08:42→19:58)
[2022-09-16] MEDS: dilTIAZem CD 120 MG Capsule PO ×2 (08:42→17:26)
[2022-09-16 08:47] VITALS: PULSE 68; RESP 16; O2SAT 97
--- NOTE | 2022-09-16 11:37 | CASEMGMT ---
Addendum entered by Char Sosa 09/16/22 15:52: presented to this worker's office to discuss DC plans. SW reiterated recommendations for pt to have 24/7 hands on care, in addition to , as uses cane to ambulate. stated their son will assist, however, son lives in [place] but is retired. After several different explanations and answering 's questions, expressed understanding and repeated recommendations back to this worker. agreed to take suggestion from this worker to ask son to stay at least once a week to assist, routinely, and contact nonskilled CARE TEAM ASSISTANT companies to provide additional care. Resources for CARE TEAM ASSISTANT and [place] were provided to . Pt unable to use a medical alert button and states meal are not an issue. SW encouraged to contact CARE TEAM ASSISTANT companies today and tomorrow, with the intent for DC in one week, and follow up with this worker on findings. expressed understanding and appreciative. SW to continue to follow. Original Note: Social Work SW left voicemail with requesting call back to discuss DC plans and date. Will continue to follow. LULY Cee
[2022-09-16 15:31] VITALS: BP 162/79; PULSE 65; RESP 14; TEMP 37.2; O2SAT 97
[2022-09-16] MEDS: Hydrocortisone 2.5% Crm 1 APPLIC TOPICAL (17:28)
[2022-09-16] MEDS: MELATONIN 3 MG TABLET PO (19:59)
[2022-09-17] MEDS: BACITRACIN 15 GM Tube 1 APPLIC TOPICAL (04:56)
[2022-09-17] MEDS: APIXABAN 2.5 MG TABLET (WCH) PO ×2 (04:57→16:57)
[2022-09-17] MEDS: Famotidine 20 MG Tablet 40 MG PO ×2 (04:57→16:57)
[2022-09-17 04:58] VITALS: BP 113/57; PULSE 72
[2022-09-17] MEDS: DULoxetine Hcl 30 MG Capsule PO (04:58)
[2022-09-17] MEDS: lamoTRIgine 100 MG Tablet PO ×2 (04:58→16:59)
[2022-09-17] MEDS: Senna/Docusate Sodium 1 Tablet PO ×2 (04:58→16:59)
[2022-09-17] MEDS: Metoprolol(XL)Succ 25 MG Tablet PO (04:58)
[2022-09-17] MEDS: Cyanocobalamin 500 MCG Tablet 1000 MCG PO (07:51)
[2022-09-17] MEDS: metFORMIN HCl 500 MG Tablet PO ×2 (07:51→16:59)
[2022-09-17] MEDS: dilTIAZem CD 120 MG Capsule PO ×2 (07:51→16:58)
[2022-09-17] MEDS: Potassium Chloride Oral Tablet 20 MEQ PO ×2 (07:52→16:58)
[2022-09-17] MEDS: Menthol/Lanolin/Calamine/Znox 113 GM Tube 1 APPLIC TOPICAL ×2 (07:52→21:15)
--- NOTE | 2022-09-17 10:31 | CASEMGMT ---
Social Work presented to this worker's office and stated I don't think I am going to partake in hiring people to come to the home. I think my son and I can handle it. But if I change my mind, I can call places. SW acknowledged 's wishes and noted does have resources for at home. Offered to set DC date. agreeable to 09/23 with [facility], whom pt used prior. to transport. No DME needs. Plan: DC home with 09/23, [facility] PT/OT/ST/WRIGHT Char Sosa, LULY REINOSO
--- NOTE | 2022-09-17 13:32 | PCM.PROGNOTE ---
Subjective Subjective Patient seen resting in chair with feet elevated this afternoon. She states she may be going home next week which makes her happy. She denies any constitutional symptoms. Denies any further complaints. Objective Data Objective Data Vital Signs: Vital Signs Temp Pulse Resp BP Pulse Ox O2 Del Method 98.9 F 72 14 113/57 L 97 Room Air 09/16/22 15:31 09/17/22 04:58 09/16/22 15:31 09/17/22 04:58 09/16/22 15:31 09/16/22 15:31 Oxygen Delivery Method Room Air Weight: 72.121 kg Body Mass Index (BMI) 25.7 Intake & Output: Intake and Output for Last 24 Hours 09/15/22 09/16/22 09/17/22 23:59 23:59 23:59 Intake Total 960 / 960 1080 / 1080 480 / 480 Balance 960 / 960 1080 / 1080 480 / 480 Lab / Micro Data Result Diagrams: 09/14/22 05:09 09/14/22 05:09 Micro: Microbiology 09/03/22 13:22 Urine, Clean Catch Urine Culture - Final Klebsiella oxytoca 09/03/22 05:50 Nasal Secretion SARS-CoV-2 Antigen (Rapid) - Final 09/01/22 05:30 Nasal Secretion SARS-CoV-2 Antigen (Rapid) - Final Physical Exam Narrative Dorsalis pedis posterior tibial pulses palpable to bilateral feet. Capillary fill time brisk. Digital hair growth noted. Intact light touch protective sensation. Callus noted to plantar first metatarsal phalangeal joint. Predebridement was just callus postdebridement wound is 0.1 x 1.0 cm x 0.2 cm. Wound demonstrated clean granular base with clean periwound edges postdebridement. No evidence of deep probing undermining or signs of infection at current. Patient has significant hallux valgus deformity to bilateral feet. This is likely contributing to wound formation on the right. Const alert, oriented x3 and no apparent distress General Appearance: cooperative HEENT normocephalic Eyes General Eye: normal appearance of both eyes Neck General: normal visual inspection Lymph Lymphatic: no lymphadenopathy noted and no lymphedema noted Resp normal respiratory effort Cardio regular rate and regular rhythm Extremity normal capillary refill, no calf tenderness and no pedal edema Extremity Narrative: DP and PT pulses are palpable bilateral with adequate capillary fill time to the digits. Musculoskeletal: HAV deformity of the right foot noted with lateral deviation of the hallux with prominent medial eminence of the first metatarsal and hammertoe formation to the lesser digits deformity is noted to be rigid. First MTPJ range of motion is decreased. There is a subfirst metatarsal callus with superficial fissure. No signs of infection. Skin no rashes or lesions noted, skin turgor normal and no jaundice Neuro moves all extremities Assessment & Plan Assessment/Plan (1) Hallux valgus (acquired), right foot: (2) Hallux valgus (acquired), left foot: (3) Tinea unguium: (4) Pain in right toe(s): (5) Pain in left toe(s): (6) Non-pressure chronic ulcer of other part of right foot with fat layer exposed: PLAN: Plan Patient seen and evaluated. Right plantar hallux wound underwent debridement 09/08/2022. Wound size measures 0.1 cm x 0.1 cm x 0.2 cm. No signs of infection. Wound is secondary from hyperkeratotic callus fissure and compounding HAV deformity of the right foot. Wound is healing. Padded Mepilex dressing applied to aid in offloading. Patient will continue offloading the wound with a surgical shoe on the right. This was discussed with nursing. We will continue to follow patient weekly at this point patient can follow-up in our clinic at 1 week upon discharge. Jr. Luz AndersP.M. [facility] [phone]
[2022-09-17 14:27] VITALS: BP 105/44; PULSE 71; RESP 16; TEMP 36.1; O2SAT 96
--- NOTE | 2022-09-17 14:42 | DS.PCM_ITS ---
Providers Date of Admission: 08/30/22 Primary Care Physician: Dr. Nahomy Bettencourt MD Consultations 09/07/22 07:48 Consult: Podiatry Routine Consulting Provider: Yo Romero Reason for Consult: Right plantar callus. EMERGENT Consult: No MD Notified: Yes Date Notified: 09/07/22 Time Notified: 11:23 Method of Notification: phone Comments:: spoke w/ office staff Reason For Visit: WEAKNESS AND FALL Diagnosis Discharge Diagnosis (1) Hallux valgus (acquired), right foot: Status: Acute Code(s): M20.11 - Hallux valgus (acquired), right foot (2) Hallux valgus (acquired), left foot: Status: Acute Code(s): M20.12 - Hallux valgus (acquired), left foot (3) Tinea unguium: Status: Acute Code(s): B35.1 - Tinea unguium (4) Pain in right toe(s): Status: Acute Code(s): M79.674 - Pain in right toe(s) (5) Pain in left toe(s): Status: Acute Code(s): M79.675 - Pain in left toe(s) (6) Non-pressure chronic ulcer of other part of right foot with fat layer exposed: Status: Chronic Code(s): L97.512 - Non-pressure chronic ulcer of other part of right foot with fat layer exposed Plan 81 year old female with below past medical history hospitalized for fall, right shoulder contusion, admitted to TCU with debility, here for rehabilitation, strengthening, prior to discharge home with . * Debility - PT/OT. * Pain - Tylenol 1000mg q6h prn pain (1-10). * Bowel - senna/colace 1 tablet bid, MOM 30ml po x 1 prn. * Adult immunization - Administer pneumonia vaccine, covid19 vaccine, flu vaccine as appropriate. * DVT prophylaxis - on Eliquis. * Atrial Fibrillation - Metoprolol succinate 25mg daily, Diltiazem CD 120mg bid, Eliquis 2.5mg bid. * Vitamin B12 deficiency - B12 1000mcg daily. * Depression - Duloxetine 30mg daily, stable chronic medical terminologist use, GDR not recommended. * Nutrition - Ensure Clear 120ml po tidcm. * GERD - Famotine 40mg bid. * Chronic systolic congestive heart failure - Metoprolol succinate 25mg daily, Losartan 25mg daily, Furosemide 40mg daily. * Coronary artery disease - Metoprolol succinate 25mg daily, Losartan 25mg daily, NTG 0.4mg sl q5m prn. * GI prophylaxis - Lactobacillus 1 tablet daily prn. * Seizure disorder - Lamictal 100mg bid. * Insomnia - Melatonin 3mg qhs. * Skin irritation - Calmoseptine topical bid. * Diabetes Mellitus II - Metformin 500mg bidcm. * Nausea - Zofran odt 4mg q6h prn. * Hypokalemia - KCL ER 20meq bidcm. Medications at Discharge Home Medications duloxetine 30 mg capsule,delayed release 30 mg PO DAILY NEUROPATHY 09/22/20 aspirin 81 mg tablet,delayed release 81 mg PO DAILY HEART HEALTH 06/09/22 nitroglycerin 0.4 mg sublingual tablet 0.4 mg sublingual Q5M PRN Cardiac/Chest Pain #0 tabs 06/11/22 potassium chloride 20 mEq tablet,extended release(part/cryst) (Klor-Con M) 20 meq PO BIDCM Supplement 30 days #60 tabs 06/29/22 Lactobacillus rhamnosus GG 10 billion cell-inulin 200 mg capsule ([facility] any[facility]) 1 cap PO DAILY PRN GUT HEALTH 08/10/22 acetaminophen 325 mg tablet (Tylenol) 650 mg PO ONCE PRN pain 08/10/22 cyanocobalamin (vitamin B-12) 1,000 mcg tablet (Vitamin B-12) 1,000 mcg PO DAILY supplement 08/10/22 famotidine 40 mg tablet 40 mg PO BID stomach 08/10/22 furosemide 40 mg tablet 40 mg PO DAILY Diuretic 08/10/22 melatonin 3 mg tablet 3 mg PO HS sleep 08/10/22 metformin 500 mg tablet 500 mg PO BID blood sugar 08/10/22 ondansetron 4 mg disintegrating tablet 4 mg PO Q6H PRN nausea and vomiting 08/10/22 diltiazem HCl 120 mg capsule,extended release 24 hr (Cartia XT) 120 mg PO BID heart 08/29/22 apixaban 2.5 mg tablet (Eliquis) 2.5 mg PO BID blood thinner 08/30/22 lamotrigine 100 mg tablet 100 mg PO BID seizure 08/30/22 losartan 25 mg tablet 25 mg PO DAILY blood pressure 08/30/22 metoprolol succinate 25 mg tablet,extended release 24 hr 25 mg PO DAILY blood pressure 08/30/22 Hospital Course Operations None Procedures None Summary of Care Provided Minutes Spent on Discharge: 35 Hospital Course: 81 year old female with below past medical history hospitalized for fall, right shoulder contusion, admitted to TCU with debility, here for rehabilitation, strengthening, prior to discharge home with . Discharge home with 09/23/2022, [facility] PT/OT/ST/WRIGHT. Physical Exam Const alert General Appearance: cooperative HEENT normocephalic Eyes PERRL and EOMs intact bilaterally Neck supple, no JVD and no carotid bruits Resp normal respiratory effort, normal air movement and clear to auscultation ramona aterally Cardio regular rate and regular rhythm GI normal to inspection, nondistended, normoactive bowel sounds, non-tender and non-distended Extremity normal capillary refill General Extremity: Negative for edema Skin no rashes or lesions noted General Skin Exam: no breakdown Psych affect normal Appearance: appropriate Weight / BMI Weight Weight: 72.121 kg Body Mass Index (BMI) 25.7 ABG / Lab / Microbiology Data Result Diagrams: 09/14/22 05:09 09/14/22 05:09 Microbiology: Microbiology 09/03/22 13:22 Urine, Clean Catch Urine Culture - Final Klebsiella oxytoca 09/03/22 05:50 Nasal Secretion SARS-CoV-2 Antigen (Rapid) - Final 09/01/22 05:30 Nasal Secretion SARS-CoV-2 Antigen (Rapid) - Final D/C Instructions Discharge Diet: No restrictions Discharge Activity: Return to Normal Activity, May Shower and Use Walker Weight Bearing Status: Weight bearing as tolerated Call your doctor if you observe: Fever of 101 or Higher, Inability to urinate, I nability to have a bowel movement, Shortness of breath, Dizziness, Fainting spells, Swelling in the ankles, Chest pain and Uncontrolled pain Additional Instructions: Discharge home with 09/23/2022, [facility] PT/OT/ST/WRIGHT. Please Follow Up With: with neurologist When: As scheduled. Meaningful Use Info Meaningful Use Diagnoses (Choose all that apply): None applicable Discharge Plan Admission Admit Date/Time: 04/17/23 16:55 Primary Reason for Your Visit: Debility. Attending Provider: Arsenio Pride Chi Primary Care Provider: Nahomy Bettencourt Consulting Providers: Yo Romero Instructions Additional Instructions / Restrictions: Discharge home with 09/23/2022, [facility] PT/OT/ST/WRIGHT. Discharge Orders/Prescriptions Prescriptions: No Action duloxetine 30 mg capsule,delayed release(DR/EC) 30 mg PO DAILY acetaminophen [Tylenol] 325 mg tablet 650 mg PO ONCE PRN (Reason: pain) [facility] 10 billion cell -200 mg capsule 1 cap PO DAILY PRN (Reason: [facility]) furosemide 40 mg tablet 40 mg PO DAILY famotidine 40 mg tablet 40 mg PO BID melatonin 3 mg tablet 3 mg PO HS metformin 500 mg tablet 500 mg PO BID ondansetron 4 mg tablet,disintegrating 4 mg PO Q6H PRN (Reason: nausea and vomiting) cyanocobalamin (vitamin B-12) [Vitamin B-12] 1,000 mcg tablet 1,000 mcg PO DAILY aspirin 81 mg Tablet,Delayed Release (Dr/Ec) 81 mg PO DAILY nitroglycerin 0.4 mg Tablet, Sublingual 0.4 mg sublingual Q5M PRN (Reason: Cardiac/Chest Pain) Qty: 0 0RF potassium chloride [Klor-Con M20] 20 mEq tablet,ER particles/crystals 20 meq PO BIDCM 30 Days Qty: 60 0RF diltiazem HCl [Cartia XT] 120 mg capsule,extended release 24hr 120 mg PO BID losartan 25 mg tablet 25 mg PO DAILY metoprolol succinate 25 mg tablet extended release 24 hr 25 mg PO DAILY lamotrigine 100 mg tablet 100 mg PO BID Eliquis 2.5 mg tablet 2.5 mg PO BID Referrals / Follow Up: Nahomy Bettencourt MD [Primary Care Provider] - Jimenez Wing MD [Non-Staff -Ordering Privileges] - 12/28/22 10:00 am Disposition Disposition (needs filled in before D/C Order can be placed): Home Health Service
--- NOTE | 2022-09-17 14:42 | PCM.DC.SUM ---
Providers Date of Admission: 08/30/22 Primary Care Physician: Dr. Nahomy Bettencourt MD Consultations 09/07/22 07:48 Consult: Podiatry Routine Consulting Provider: Yo Romero Reason for Consult: Right plantar callus. EMERGENT Consult: No MD Notified: Yes Date Notified: 09/07/22 Time Notified: 11:23 Method of Notification: phone Comments:: spoke w/ office staff Reason For Visit: WEAKNESS AND FALL Diagnosis Discharge Diagnosis (1) Hallux valgus (acquired), right foot: Status: Acute Code(s): M20.11 - Hallux valgus (acquired), right foot (2) Hallux valgus (acquired), left foot: Status: Acute Code(s): M20.12 - Hallux valgus (acquired), left foot (3) Tinea unguium: Status: Acute Code(s): B35.1 - Tinea unguium (4) Pain in right toe(s): Status: Acute Code(s): M79.674 - Pain in right toe(s) (5) Pain in left toe(s): Status: Acute Code(s): M79.675 - Pain in left toe(s) (6) Non-pressure chronic ulcer of other part of right foot with fat layer exposed: Status: Chronic Code(s): L97.512 - Non-pressure chronic ulcer of other part of right foot with fat layer exposed Plan 81 year old female with below past medical history hospitalized for fall, right shoulder contusion, admitted to TCU with debility, here for rehabilitation, strengthening, prior to discharge home with . Debility - PT/OT. Pain - Tylenol 1000mg q6h prn pain (1-10). Bowel - senna/colace 1 tablet bid, MOM 30ml po x 1 prn. Adult immunization - Administer pneumonia vaccine, covid19 vaccine, flu vaccine as appropriate. DVT prophylaxis - on Eliquis. Atrial Fibrillation - Metoprolol succinate 25mg daily, Diltiazem CD 120mg bid, Eliquis 2.5mg bid. Vitamin B12 deficiency - B12 1000mcg daily. Depression - Duloxetine 30mg daily, stable chronic mcfp use, GDR not recommended. Nutrition - Ensure Clear 120ml po tidcm. GERD - Famotine 40mg bid. Chronic systolic congestive heart failure - Metoprolol succinate 25mg daily, Losartan 25mg daily, Furosemide 40mg daily. Coronary artery disease - Metoprolol succinate 25mg daily, Losartan 25mg daily, NTG 0.4mg sl q5m prn. GI prophylaxis - Lactobacillus 1 tablet daily prn. Seizure disorder - Lamictal 100mg bid. Insomnia - Melatonin 3mg qhs. Skin irritation - Calmoseptine topical bid. Diabetes Mellitus II - Metformin 500mg bidcm. Nausea - Zofran odt 4mg q6h prn. Hypokalemia - KCL ER 20meq bidcm. Medications at Discharge Home Medications duloxetine 30 mg capsule,delayed release 30 mg PO DAILY NEUROPATHY 09/22/20 nitroglycerin 0.4 mg sublingual tablet 0.4 mg sublingual Q5M PRN Cardiac/Chest Pain #0 tabs 06/11/22 Lactobacillus rhamnosus GG 10 billion cell-inulin 200 mg capsule ([facility]) 1 cap PO DAILY PRN [facility] 08/10/22 cyanocobalamin (vitamin B-12) 1,000 mcg tablet (Vitamin B-12) 1,000 mcg PO DAILY supplement 08/10/22 famotidine 40 mg tablet 40 mg PO BID stomach 08/10/22 furosemide 40 mg tablet 40 mg PO DAILY Diuretic 08/10/22 melatonin 3 mg tablet 3 mg PO HS sleep 08/10/22 metformin 500 mg tablet 500 mg PO BID blood sugar 08/10/22 diltiazem HCl 120 mg capsule,extended release 24 hr (Cartia XT) 120 mg PO BID heart 08/29/22 apixaban 2.5 mg tablet (Eliquis) 2.5 mg PO BID blood thinner 08/30/22 metoprolol succinate 25 mg tablet,extended release 24 hr 25 mg PO DAILY blood pressure 08/30/22 acetaminophen 500 mg tablet 1,000 mg PO Q6H PRN PRN Pain Score 1-10 #0 tabs 09/17/22 lamotrigine 100 mg tablet 100 mg PO BID 30 days #60 tabs 09/17/22 potassium chloride 20 mEq tablet,extended release(part/cryst) (Klor-Con M) 20 meq PO BIDCM 30 days #60 tabs 09/17/22 Hospital Course Operations None Procedures None Summary of Care Provided Minutes Spent on Discharge: 35 Hospital Course: 81 year old female with below past medical history hospitalized for fall, right shoulder contusion, admitted to TCU with debility, here for rehabilitation, strengthening, prior to discharge home with . Discharge home with 09/23/2022, [facility] PT/OT/ST/WRIGHT. Physical Exam Const alert General Appearance: cooperative HEENT normocephalic Eyes PERRL and EOMs intact bilaterally Neck supple, no JVD and no carotid bruits Resp normal respiratory effort, normal air movement and clear to auscultation bilaterally Cardio regular rate and regular rhythm GI normal to inspection, nondistended, normoactive bowel sounds, non-tender and non-distended Extremity normal capillary refill General Extremity: Negative for edema Skin no rashes or lesions noted General Skin Exam: no breakdown Psych affect normal Appearance: appropriate Weight / BMI Weight Weight: 72.121 kg Body Mass Index (BMI) 25.7 ABG / Lab / Microbiology Data Result Diagrams: 09/14/22 05:09 09/14/22 05:09 Microbiology: Microbiology 09/03/22 13:22 Urine, Clean Catch Urine Culture - Final Klebsiella oxytoca 09/03/22 05:50 Nasal Secretion SARS-CoV-2 Antigen (Rapid) - Final 09/01/22 05:30 Nasal Secretion SARS-CoV-2 Antigen (Rapid) - Final D/C Instructions Discharge Diet: No restrictions Discharge Activity: Return to Normal Activity, May Shower and Use Walker Weight Bearing Status: Weight bearing as tolerated Call your doctor if you observe: Fever of 101 or Higher, Inability to urinate, Inability to have a bowel movement, Shortness of breath, Dizziness, Fainting spells, Swelling in the ankles, Chest pain and Uncontrolled pain Additional Instructions: Discharge home with 09/23/2022, [facility] PT/OT/ST/WRIGHT. Please Follow Up With: with neurologist When: As scheduled. Meaningful Use Info Meaningful Use Diagnoses (Choose all that apply): None applicable Discharge Plan Admission Admit Date/Time: 08/30/22 16:55 Primary Reason for Your Visit: Debility. Attending Provider: Arsenio Pride Chi Primary Care Provider: Nahomy Bettencourt Consulting Providers: Yo Romero Instructions Additional Instructions / Restrictions: Discharge home with 09/23/2022, [facility] PT/OT/ST/WRIGHT. Discharge Orders/Prescriptions Prescriptions: New acetaminophen 500 mg Tablet 1,000 mg PO Q6H PRN PRN (Reason: Pain Score 1-10) Qty: 0 0RF potassium chloride [Klor-Con M20] 20 mEq Tablet,Er Particles/Crystals 20 meq PO BIDCM 30 Days Qty: 60 0RF lamotrigine 100 mg Tablet 100 mg PO BID 30 Days Qty: 60 0RF Continued duloxetine 30 mg capsule,delayed release(DR/EC) 30 mg PO DAILY [facility] 10 billion cell -200 mg capsule 1 cap PO DAILY PRN (Reason: G[facility]) furosemide 40 mg tablet 40 mg PO DAILY famotidine 40 mg tablet 40 mg PO BID melatonin 3 mg tablet 3 mg PO HS metformin 500 mg tablet 500 mg PO BID cyanocobalamin (vitamin B-12) [Vitamin B-12] 1,000 mcg tablet 1,000 mcg PO DAILY nitroglycerin 0.4 mg Tablet, Sublingual 0.4 mg sublingual Q5M PRN (Reason: Cardiac/Chest Pain) Qty: 0 0RF diltiazem HCl [Cartia XT] 120 mg capsule,extended release 24hr 120 mg PO BID metoprolol succinate 25 mg tablet extended release 24 hr 25 mg PO DAILY Eliquis 2.5 mg tablet 2.5 mg PO BID Discontinued acetaminophen [Tylenol] 325 mg tablet 650 mg PO ONCE PRN (Reason: pain) ondansetron 4 mg tablet,disintegrating 4 mg PO Q6H PRN (Reason: nausea and vomiting) aspirin 81 mg Tablet,Delayed Release (Dr/Ec) 81 mg PO DAILY potassium chloride [Klor-Con M20] 20 mEq tablet,ER particles/crystals 20 meq PO BIDCM 30 Days Qty: 60 0RF losartan 25 mg tablet 25 mg PO DAILY lamotrigine 100 mg tablet 100 mg PO BID Referrals / Follow Up: Nahomy Bettencourt MD [Primary Care Provider] - Jimenez Wing MD [Non-Staff -Ordering Privileges] - 12/28/22 10:00 am Disposition Disposition (needs filled in before D/C Order can be placed): Home Health Service
[2022-09-17 19:32] VITALS: PULSE 66; RESP 16; O2SAT 97
[2022-09-17] MEDS: MELATONIN 3 MG TABLET PO (21:15)
[2022-09-18 05:28] VITALS: BP 115/61; PULSE 75
[2022-09-18] MEDS: lamoTRIgine 100 MG Tablet PO ×2 (05:28→17:43)
[2022-09-18] MEDS: Metoprolol(XL)Succ 25 MG Tablet PO (05:28)
[2022-09-18] MEDS: APIXABAN 2.5 MG TABLET (WCH) PO ×2 (05:29→17:43)
[2022-09-18] MEDS: Famotidine 20 MG Tablet 40 MG PO ×2 (05:29→17:43)
[2022-09-18] MEDS: DULoxetine Hcl 30 MG Capsule PO (05:29)
[2022-09-18] MEDS: Senna/Docusate Sodium 1 Tablet PO ×2 (05:30→17:43)
[2022-09-18 08:08] VITALS: BP 140/76; PULSE 86
[2022-09-18] MEDS: metFORMIN HCl 500 MG Tablet PO ×2 (08:18→17:43)
[2022-09-18] MEDS: Potassium Chloride Oral Tablet 20 MEQ PO ×2 (08:18→17:43)
[2022-09-18] MEDS: Menthol/Lanolin/Calamine/Znox 113 GM Tube 1 APPLIC TOPICAL ×2 (08:18→20:12)
[2022-09-18] MEDS: Cyanocobalamin 500 MCG Tablet 1000 MCG PO (08:18)
[2022-09-18] MEDS: dilTIAZem CD 120 MG Capsule PO ×2 (08:18→17:43)
[2022-09-18 09:19] VITALS: PULSE 59; O2SAT 94
[2022-09-18] MEDS: BACITRACIN 15 GM Tube 1 APPLIC TOPICAL (09:51)
[2022-09-18 15:15] VITALS: BP 117/53; PULSE 68; RESP 18; TEMP 36.1; O2SAT 96
[2022-09-18 17:38] VITALS: BP 117/57; PULSE 64
[2022-09-18] MEDS: MELATONIN 3 MG TABLET PO (20:14)
[2022-09-19] MEDS: BACITRACIN 15 GM Tube 1 APPLIC TOPICAL (06:19)
[2022-09-19 06:20] VITALS: BP 120/71; PULSE 82
[2022-09-19] MEDS: Senna/Docusate Sodium 1 Tablet PO ×2 (06:20→17:28)
[2022-09-19] MEDS: lamoTRIgine 100 MG Tablet PO ×2 (06:20→17:27)
[2022-09-19] MEDS: Metoprolol(XL)Succ 25 MG Tablet PO (06:20)
[2022-09-19] MEDS: APIXABAN 2.5 MG TABLET (WCH) PO ×2 (06:20→17:27)
[2022-09-19] MEDS: Famotidine 20 MG Tablet 40 MG PO ×2 (06:20→17:28)
[2022-09-19] MEDS: DULoxetine Hcl 30 MG Capsule PO (06:21)
[2022-09-19 07:49] VITALS: BP 123/69; PULSE 66
[2022-09-19] MEDS: Menthol/Lanolin/Calamine/Znox 113 GM Tube 1 APPLIC TOPICAL ×2 (07:54→19:53)
[2022-09-19] MEDS: metFORMIN HCl 500 MG Tablet PO ×2 (07:54→17:27)
[2022-09-19] MEDS: Cyanocobalamin 500 MCG Tablet 1000 MCG PO (07:54)
[2022-09-19] MEDS: dilTIAZem CD 120 MG Capsule PO ×2 (07:54→17:27)
[2022-09-19] MEDS: Potassium Chloride Oral Tablet 20 MEQ PO ×2 (07:54→17:27)
[2022-09-19 13:40] VITALS: BP 111/58; PULSE 68; RESP 18; TEMP 36.1; O2SAT 96
[2022-09-19 17:22] VITALS: BP 104/43; PULSE 63
[2022-09-19] MEDS: MELATONIN 3 MG TABLET PO (19:54)
[2022-09-19 20:06] VITALS: PULSE 93; RESP 16; O2SAT 96
[2022-09-20] MEDS: Famotidine 20 MG Tablet 40 MG PO ×2 (05:08→18:20)
[2022-09-20] MEDS: Senna/Docusate Sodium 1 Tablet PO ×2 (05:08→18:20)
[2022-09-20] MEDS: DULoxetine Hcl 30 MG Capsule PO (05:08)
[2022-09-20] MEDS: APIXABAN 2.5 MG TABLET (WCH) PO ×2 (05:08→18:20)
[2022-09-20] MEDS: lamoTRIgine 100 MG Tablet PO ×2 (05:08→18:20)
[2022-09-20 05:09] VITALS: BP 115/63; PULSE 72
[2022-09-20] MEDS: Metoprolol(XL)Succ 25 MG Tablet PO (05:09)
[2022-09-20] MEDS: Cyanocobalamin 500 MCG Tablet 1000 MCG PO (07:52)
[2022-09-20] MEDS: Potassium Chloride Oral Tablet 20 MEQ PO ×2 (07:52→18:20)
[2022-09-20] MEDS: dilTIAZem CD 120 MG Capsule PO ×2 (07:52→18:20)
[2022-09-20] MEDS: metFORMIN HCl 500 MG Tablet PO ×2 (07:52→18:20)
[2022-09-20] MEDS: Menthol/Lanolin/Calamine/Znox 113 GM Tube 1 APPLIC TOPICAL ×2 (07:53→20:36)
[2022-09-20 08:00] VITALS: BP 118/58; PULSE 78
[2022-09-20 09:55] VITALS: PULSE 73; O2SAT 93
[2022-09-20] MEDS: BACITRACIN 15 GM Tube 1 APPLIC TOPICAL (10:03)
[2022-09-20 15:26] VITALS: BP 112/65; PULSE 67; RESP 16; TEMP 35.8; O2SAT 98
[2022-09-20 18:33] VITALS: BP 135/54; RESP 81
[2022-09-20] MEDS: MELATONIN 3 MG TABLET PO (20:36)
[2022-09-21 05:24] VITALS: BP 114/54; PULSE 57
[2022-09-21] MEDS: DULoxetine Hcl 30 MG Capsule PO (05:24)
[2022-09-21] MEDS: lamoTRIgine 100 MG Tablet PO ×2 (05:24→17:09)
[2022-09-21] MEDS: BACITRACIN 15 GM Tube 1 APPLIC TOPICAL (05:24)
[2022-09-21] MEDS: Metoprolol(XL)Succ 25 MG Tablet PO (05:24)
[2022-09-21] MEDS: Senna/Docusate Sodium 1 Tablet PO ×2 (05:24→17:08)
[2022-09-21] MEDS: Famotidine 20 MG Tablet 40 MG PO ×2 (05:25→17:08)
[2022-09-21] MEDS: APIXABAN 2.5 MG TABLET (WCH) PO ×2 (05:25→17:09)
[2022-09-21 05:40] LABS: Absolute Lymphocyte Count 2.14 X10^3/uL (0.83-4.51); Absolute Neutrophil Count 6.7 X10^3/uL (2.0-7.7); Basophil# 0.06 X10^3/uL; Basophil% 0.6 % (0-1); Eosinophil# 0.57 X10^3/uL; Eosinophils% 5.6 % (0-5); Hematocrit 40.7 % (37-47); Hemoglobin 12.6 g/dL (12.0-15.0); Lymphocyte # 2.14 X10^3/ul (0.83-4.51); Mean Corpuscular Hgb 31.5 pg (27.0-32.0); Mean Corpuscular Volume 101.8 fL (81-99); Mean Platelet Vol. 9.9 fl (6.2-12.0); Monocyte# 0.68 X10^3/uL; Monocyte% 6.7 % (0-10); NRBC Flagged by Analyzer 0 % (0-5); Neutrophil # 6.69 X10^3/uL (2.7-7.7); Neutrophil % 65.6 % (47-70); Platelet Count 342 K/mm3 (150-450); RBC Distribution Width CV 16.5 % (11.6-14.6); RBC Distribution Width SD 61.2 fl (35.1-43.9); White Blood Count 10.2 K/mm3 (4.4-11.0)
[2022-09-21 06:08] LABS: Anion Gap 5 (5-15); BUN 12 mg/dL (7-18); BUN/Creat Ratio 15.9 RATIO (10-20); Calcium,Total 9.9 mg/dL (8.5-10.1); Chloride 109 mmol/L (98-107); Creatinine, Serum 0.76 mg/dL (0.55-1.02); EST Glomerular Filtration Rate 78 mL/min (>60); Est Glom Filt Rate - Afr Amer 94 mL/min (>60); Glucose 100 mg/dL (74-106); Potassium 4.4 mmol/L (3.5-5.1); Sodium Level 141 mmol/L (136-145)
[2022-09-21] MEDS: Potassium Chloride Oral Tablet 20 MEQ PO ×2 (08:31→17:09)
[2022-09-21] MEDS: dilTIAZem CD 120 MG Capsule PO ×2 (08:31→17:09)
[2022-09-21] MEDS: metFORMIN HCl 500 MG Tablet PO ×2 (08:31→17:09)
[2022-09-21] MEDS: Cyanocobalamin 500 MCG Tablet 1000 MCG PO (08:31)
[2022-09-21] MEDS: Menthol/Lanolin/Calamine/Znox 113 GM Tube 1 APPLIC TOPICAL ×2 (08:32→20:35)
[2022-09-21 10:32] VITALS: BMI 26.5
[2022-09-21 15:09] VITALS: BP 114/56; PULSE 60; RESP 16; TEMP 36.3; O2SAT 99
[2022-09-21] MEDS: MELATONIN 3 MG TABLET PO (20:40)
[2022-09-21] MEDS: Acetaminophen 500 MG Tablet 1000 MG PO (20:40)
[2022-09-22] MEDS: Famotidine 20 MG Tablet 40 MG PO ×2 (05:10→17:43)
[2022-09-22 05:11] VITALS: BP 129/61; PULSE 75
[2022-09-22] MEDS: Metoprolol(XL)Succ 25 MG Tablet PO (05:11)
[2022-09-22] MEDS: DULoxetine Hcl 30 MG Capsule PO (05:11)
[2022-09-22] MEDS: APIXABAN 2.5 MG TABLET (WCH) PO ×2 (05:12→17:43)
[2022-09-22] MEDS: lamoTRIgine 100 MG Tablet PO ×2 (05:12→17:43)
[2022-09-22] MEDS: Senna/Docusate Sodium 1 Tablet PO ×2 (05:12→17:43)
--- NOTE | 2022-09-22 05:48 | NURSING ---
Bactitracin to be applied to foot per dr order when assessment completed later today.
[2022-09-22 09:24] VITALS: BP 113/60; PULSE 90
[2022-09-22] MEDS: dilTIAZem CD 120 MG Capsule PO ×2 (09:27→17:42)
[2022-09-22] MEDS: Potassium Chloride Oral Tablet 20 MEQ PO ×2 (09:27→17:42)
[2022-09-22] MEDS: metFORMIN HCl 500 MG Tablet PO ×2 (09:27→17:42)
[2022-09-22] MEDS: Cyanocobalamin 500 MCG Tablet 1000 MCG PO (09:27)
[2022-09-22] MEDS: BACITRACIN 15 GM Tube 1 APPLIC TOPICAL (09:27)
[2022-09-22] MEDS: Menthol/Lanolin/Calamine/Znox 113 GM Tube 1 APPLIC TOPICAL ×2 (09:28→21:18)
[2022-09-22 09:33] VITALS: PULSE 90; O2SAT 94
[2022-09-22 15:11] VITALS: BP 111/44; PULSE 70; RESP 18; TEMP 36.1; O2SAT 97
[2022-09-22 17:38] VITALS: BP 114/68; PULSE 60
[2022-09-22] MEDS: MELATONIN 3 MG TABLET PO (21:18)
[2022-09-23] MEDS: Famotidine 20 MG Tablet 40 MG PO (05:34)
[2022-09-23 05:35] VITALS: BP 110/50; PULSE 75
[2022-09-23] MEDS: Senna/Docusate Sodium 1 Tablet PO (05:35)
[2022-09-23] MEDS: Metoprolol(XL)Succ 25 MG Tablet PO (05:35)
[2022-09-23] MEDS: DULoxetine Hcl 30 MG Capsule PO (05:35)
[2022-09-23] MEDS: lamoTRIgine 100 MG Tablet PO (05:35)
[2022-09-23] MEDS: APIXABAN 2.5 MG TABLET (WCH) PO (05:35)
[2022-09-23] MEDS: BACITRACIN 15 GM Tube 1 APPLIC TOPICAL (05:38)
[2022-09-23] MEDS: dilTIAZem CD 120 MG Capsule PO (09:09)
[2022-09-23] MEDS: Potassium Chloride Oral Tablet 20 MEQ PO (09:09)
[2022-09-23] MEDS: Cyanocobalamin 500 MCG Tablet 1000 MCG PO (09:09)
[2022-09-23] MEDS: metFORMIN HCl 500 MG Tablet PO (09:09)
[2022-09-23 09:16] VITALS: BP 112/51; PULSE 76; RESP 18; TEMP 36.4; O2SAT 97
--- NOTE | 2022-09-23 11:16 | CASEMGMT ---
Social Work BIMS () and PHQ-9 (06/11) completed for MDS assessment. Char Sosa MSW MERCANTILE REPORTER
== END 2022-09-23 10:45 | disposition home health service (06) | DRG 940 ==
PROVIDERS: Admitting Provider Family Medicine Geriatric Medicine; PCP Family Medicine; Referring Provider Family Medicine Geriatric Medicine; Visit Provider Family Medicine Geriatric Medicine
DX: S40.011D Contusion of right shoulder, subsequent encounter (principal); I42.9 Cardiomyopathy, unspecified; I50.22 Chronic systolic (congestive) heart failure; L97.512 Non-pressure chronic ulcer of other part of right foot with fat layer exposed; I11.0 Hypertensive heart disease with heart failure; B35.1 Tinea unguium; E11.42 Type 2 diabetes mellitus with diabetic polyneuropathy; E11.621 Type 2 diabetes mellitus with foot ulcer; I48.0 Paroxysmal atrial fibrillation; G40.909 Epilepsy, unspecified, not intractable, without status epilepticus; E53.8 Deficiency of other specified B group vitamins; I25.10 Atherosclerotic heart disease of native coronary artery without angina pectoris; M19.90 Unspecified osteoarthritis, unspecified site; F41.9 Anxiety disorder, unspecified; W19.XXXD Unspecified fall, subsequent encounter; E87.6 Hypokalemia; M20.11 Hallux valgus (acquired), right foot; M20.12 Hallux valgus (acquired), left foot; F32.A Depression, unspecified; Z87.891 Personal history of nicotine dependence; Z79.01 Long term (current) use of anticoagulants; Z79.82 Long term (current) use of aspirin; Z79.899 Other long term (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
CPT/HCPCS: 36415; 80048; 81001; 82962; 85025; 87077; 87086; 87088; 87186; 87811; 92507; 92523; 97110; 97116; 97129; 97130; 97162; 97166; 97530; 97535; A4216

== ENCOUNTER → 2022-10-05 | Outpatient (CLI) | payer MEDICARE, OTHER, SELFPAY | END | disposition home or self-care (01) | PROVIDERS: PCP Family Medicine; Visit Provider Podiatrist | DX: L03.115 Cellulitis of right lower limb (principal) | CPT/HCPCS: 87070; 87077; 87186; 87205 ==

== ENCOUNTER 2022-11-06 10:24 | Inpatient (IN) | payer MEDICARE, OTHER, SELFPAY ==
[2022-11-06] VITALS (11 sets, daily range): BP systolic 96–130; BP diastolic 60–94; PULSE 57–92; RESP 16–18; TEMP 35.7–36.6; O2SAT 78–98; BMI 11.7; BMI 26.8
--- NOTE | 2022-11-06 10:38 | RAD_ITS ---
INDICATION: weakness EXAMINATION/TECHNIQUE: X-RAY - XR Chest 1 View COMPARISON: August 29, 2022. FINDINGS: LINES/DEVICES: None. LUNGS: Mild vertically oriented fibrosis left lung base. MEDIASTINUM AND CARDIOVASCULAR STRUCTURES: Mild cardiomegaly. Mildly tortuous descending aorta. BONES AND SOFT TISSUES: Unremarkable. Stable exam. RAD/Chest 1 View (Portable) IMPRESSION: Mild fibrosis left base. Mild cardiomegaly. Mildly tortuous descending aorta. Electronically Signed: Brijesh Watkins MD, ISIDRO at 11:43 EDT ,
--- NOTE | 2022-11-06 10:38 | EKG12_ITS ---
Test Reason : FALL Blood Pressure : / mmHG Vent. Rate : 065 BPM Atrial Rate : 000 BPM P-R Int : 000 ms QRS Dur : 158 ms QT Int : 430 ms P-R-T Axes : 000 -19 143 degrees QTc Int : 447 ms Atrial fibrillation Left bundle branch block Abnormal ECG Confirmed by CAITLIN LYNN, ABI ([id number]), digital editor MAMADOU TROY ([id number]) on 11/08/2022 12:58:26 PM Referred By: Confirmed By:ABI TUCKER MD
--- NOTE | 2022-11-06 10:38 | CT_ITS ---
INDICATION: head injury EXAMINATION: CT BRAIN - CT Head or Brain W/O Contrast Injection TECHNIQUE: Multiple axial images were obtained of the head without intravenous contrast. A radiation dose optimization technique was used for this scan. IV Contrast dosage and agent: None. RADIATION DOSAGE (If Supplied By Facility): CTDIvol = ( 44.99 ) mGy, DLP = ( 779.24 ) mGycm COMPARISON: August 29, 2022. FINDINGS: BRAIN PARENCHYMA: Moderate cortical and central atrophy, mild chronic microvascular ischemic change periventricular white matter. Mild cerebellar atrophy. Stable findings. CALVARIUM, SKULL BASE, PARANASAL SINUSES AND MASTOID AIR CELLS: Clear. No discrete lytic or blastic abnormalities. ORBITS: Both globes, extraocular muscles, optic nerves and retrobulbar fat appear unremarkable. ASPECTS Score for Acute Strokes: 10 CT/Brain/Head without Contrast IMPRESSION: Moderate cortical and central atrophy. Mild chronic microvascular ischemic change. Mild cerebellar atrophy. Electronically Signed: Brijesh Watkins MD, ISIDRO at 11:34 EDT ,
--- NOTE | 2022-11-06 10:38 | RAD_ITS ---
INDICATION: pain EXAMINATION/TECHNIQUE: X-RAY - XR Hip Unilateral with Pelvis when performed; 2-3 Views COMPARISON: FINDINGS: PELVIC BONES: No destructive or sclerotic lesions. Note that overlapping bowel shadows may however obscure fine detail. Sacroiliac joints are unremarkable. No widening of the pubic symphysis. HIPS: There is a subcapital fracture of the left hip with superior lateral displacement of the proximal femur with respect to the femoral head. There is underlying mild osteoarthritis of both hips. There is severe degenerative change of the lower lumbar spine. SOFT TISSUES: No soft tissue swelling or gas. RAD/HIP, UNI W/ Pelvis 2-3 Views IMPRESSION: Left hip fracture as above. Electronically Signed: Brijesh Watkins MD, ISIDRO at 11:44 EDT ,
--- NOTE | 2022-11-06 10:38 | CT_ITS ---
INDICATION: trauma EXAMINATION: CT CERVICAL SPINE - CT Spine Cervical W/O Contrast Injection TECHNIQUE: Helically acquired images were obtained of the cervical spine. 2D reformatted images were reviewed. A radiation dose optimization technique was used for this scan. IV Contrast dosage and agent: None. RADIATION DOSAGE (If Supplied By Facility): CTDIvol = ( 21.62 ) mGy, DLP = ( 454.96 ) mGycm COMPARISON: FINDINGS: VERTEBRAE: No fracture or traumatic subluxation. No discrete lytic or blastic abnormality. Normal alignment. Normal craniocervical junction and cervicothoracic junction. DISCS and SPINAL CANAL: There is fusion across the C5-C7 levels likely postoperative possibly degenerative. There is moderate loss of disc space height C2-C5 and C7-T1. There is mild disc osteophyte C4-5, C5-6, C6-7 and C7-T NECK SOFT TISSUES: No prevertebral soft tissue swelling. There is no cervical adenopathy. LUNG APICES: Clear. CT/Spine Cervical without Contras IMPRESSION: No evidence of acute cervical spinal fracture or spondylolisthesis. Degenerative and postoperative changes as above. N.B. : The above Results were Read Back by Brijesh Watkins MD, ISIDRO to Luis Christina DO, and understanding confirmed on 11/06/2022 11:36:20 (ET). Electronically Signed: Brijesh Watkisn MD, JD at 11:37 EDT ,
--- NOTE | 2022-11-06 10:38 | RAD_ITS ---
INDICATION: pain EXAMINATION/TECHNIQUE: X-RAY - LEFT XR Shoulder Min 2 Views 2 VIEWS COMPARISON: FINDINGS: SOFT TISSUES: No soft tissue swelling or gas. No radiopaque foreign body. BONES/JOINTS: Moderate acromioclavicular hypertrophy and glenohumeral joint space narrowing. RAD/Shoulder min 2 Views IMPRESSION: Degenerative changes as above. Electronically Signed: Brijesh Watkins MD, ISIDRO at 11:45 EDT ,
--- NOTE | 2022-11-06 10:44 | ED.VIS.FALL ---
HPI HPI - Fall History of Present Illness Chief Complaint: Fall Narrative Narrative: 82-year-old female presenting with left hip and left shoulder pain. She states she went to check the pet bowl and bent over and blacked out woke up crashing into the cabinets falling to her left and injuring her left shoulder and her left hip. Patient is on Eliquis for history of A-fib. Patient also has a history of seizure disorder but does not believe she had a seizure today. She has a mild headache. She complains of severe left shoulder and left hip pain. She is unable to ambulate. Denies any paresthesias. Denies back pain. She had no chest pain or shortness of breath prior to her syncopal event. [facility] Medical History Abnormal stress test Acute postoperative pain of right knee Acute systolic congestive heart failure Ambulates with cane Anxiety Aortic stenosis Arthritis Atherosclerotic heart disease of [place] coronary artery without angina pectoris Back pain Cardiology follow-up encounter Cardiomyopathy Cellulitis of chest wall Chronic constipation Chronic cough Debility Debility Depression Depression Diabetes Diabetes mellitus Diabetic neuropathy Diabetic polyneuropathy Dietary restriction DM2 (diabetes mellitus, type 2) Epilepsy Essential hypertension Former smoker H/O cardiac murmur History of atrial fibrillation History of echocardiogram History of left heart catheterization (LHC) (~06/02/22) History of pain when walking History of steroid therapy History of stress test Hx of back injury Hx of vaginal delivery Hypertension Hypertension Hypertension Inability to ambulate due to knee Injury of back Injury of head and neck Nephrolithiasis Neuropathy Neuropathy, diabetic Other halfway (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 Paroxysmal atrial fibrillation Pericardial effusion Pleural effusion due to CHF (congestive heart failure) Seizure disorder Tremor Vitamin D deficiency Wears glasses Home Medications duloxetine 30 mg capsule,delayed release 30 mg PO DAILY NEUROPATHY 09/22/20 [History Last Taken 08/28/22] nitroglycerin 0.4 mg sublingual tablet 0.4 mg sublingual Q5M PRN Cardiac/Chest Pain #0 tabs 06/11/22 [Rx Last Taken Unknown] Lactobacillus rhamnosus GG 10 billion cell-inulin 200 mg capsule (Acer) 1 cap PO DAILY PRN GUT HEALTH 08/10/22 [History Last Taken Unknown] cyanocobalamin (vitamin B-12) 1,000 mcg tablet (Vitamin B-12) 1,000 mcg PO DAILY supplement 08/10/22 [History Last Taken 08/29/22] famotidine 40 mg tablet 40 mg PO BID stomach 08/10/22 [History Last Taken 08/29/22] furosemide 40 mg tablet 40 mg PO BID Diuretic 08/10/22 [History Last Taken 08/29/22] melatonin 3 mg tablet 3 mg PO HS sleep 08/10/22 [History Last Taken Unknown] diltiazem HCl 120 mg capsule,extended release 24 hr (Cartia XT) 120 mg PO BID heart 08/29/22 [History Last Taken 08/29/22] metoprolol succinate 25 mg tablet,extended release 24 hr 25 mg PO DAILY blood pressure 08/30/22 [History Last Taken Unknown] acetaminophen 500 mg tablet 1,000 mg PO Q6H PRN PRN Pain Score 1-10 #0 tabs 09/17/22 [Rx Last Taken Unknown] lamotrigine 100 mg tablet 100 mg PO BID 30 days #60 tabs 09/17/22 [Rx Last Taken Unknown] potassium chloride 20 mEq tablet,extended release(part/cryst) (Klor-Con M) 20 meq PO BIDCM 30 days #60 tabs 09/17/22 [Rx Last Taken Unknown] aspirin 81 mg capsule 81 mg PO DAILY 11/06/22 [History Last Taken Unknown] cholecalciferol (vitamin D3) 25 mcg (1,000 unit) tablet (Vitamin D3) 25 mcg PO DAILY 11/06/22 [History Last Taken Unknown] Allergy/AdvReac Type Severity Reaction Status Date / Time bacitracin Allergy Rash Verified 08/29/22 13:54 [From Neosporin ([id number])] bacitracin zinc Allergy Rash Verified 08/29/22 13:54 [From Neosporin ([id number])] levetiracetam Allergy Other Verified 08/29/22 13:54 neomycin sulfate Allergy Rash Verified 08/29/22 13:54 [From Neosporin ([id number])] nickel Allergy Other Verified 08/29/22 13:54 polymyxin B Allergy Rash Verified 08/29/22 13:54 [From Neosporin ([id number])] sulfamethoxazole Allergy Itching Verified 08/29/22 13:54 [From Bactrim] trimethoprim [From Bactrim] Allergy Itching Verified 08/29/22 13:54 codeine AdvReac Nausea Verified 08/29/22 13:54 milk AdvReac Nausea/Vom/ Verified 08/29/22 13:54 Diarrhea Family History Father No problems noted. Mother No problems noted. Surgical History Amputated toe of right foot Deviated septum History of appendectomy History of cholecystectomy History of hysterectomy History of neck surgery History of tonsillectomy History of total right knee replacement (TKR) Hx of cystoscopy Hx of fusion of cervical spine S/P total knee arthroplasty Social History household members: spouse Smoking Status: Former smoker alcohol intake: never substance use type: does not use caffeine: No what type of physical activity do you participate in: other details: physical therapy seatbelt use: always do you feel safe at home: Yes ROS ROS ED Review of Systems ROS Unobtainable: Denies due to encephalopathy Constitutional Constitutional ED: Denies chills or fever(s) Eyes Eyes: Denies change in vision or diplopia ENT ENT ED: Denies rhinorrhea Cardiovascular Cardiovascular: Denies chest pain or palpitations Respiratory/Chest Respiratory/Chest: Denies cough or dyspnea Gastrointestinal Gastrointestinal: Denies abdominal pain, nausea or vomiting Genitourinary Genitourinary ED: Denies dysuria or hematuria Musculoskeletal Musculoskeletal: Reports other Details: Left shoulder and left hip pain Neurologic Neurologic: Reports headache(s) Psychiatric Psychiatric: Denies anxiety or depression EXAM Physical Exam Const Vital Signs: 11/06/22 10:27 11/06/22 10:53 11/06/22 11:07 Temperature 97.2 F L Temperature Source Temporal Pulse Rate 84 78 74 Respiratory Rate 18 18 Blood Pressure 116/71 101/65 102/60 Blood Pressure Mean 86 77 74 Pulse Ox 96 93 Oxygen Delivery Method Room Air Positive well nourished General Appearance ED: NAD HEENT Reports normocephalic atraumatic Eyes PERRL and EOMs intact bilaterally Chest Wall inspection of chest normal and palpation of chest normal Resp normal respiratory effort Cardio regular rate and regular rhythm GI non-tender and non-distended Back/Spine Cervical Spine: Negative for cervical spine tenderness Lumbar Spine / Lower Back: Negative for lumbar spinal tenderness Extremity Extremity Narrative: Left hip is tender to palpation over the greater trochanter. Positive logroll on the left. Leg is externally rotated. Left shoulder is very tender to palpation over the deltoid. She will not let me range the shoulder secondary to pain. She can flex and extend her elbow without any difficulty. Neuro oriented x3 and CN's II-XII intact bilaterally Psych mental status grossly normal and thought process normal MDM MDM MDM Narrative Medical decision making narrative: 82-year-old female presenting after a syncopal event in which she blacked out and hit her head, shoulder, hip as she went down to the ground. She is on Eliquis. She does not believe she sees. Differential includes concussion, intracranial hemorrhage, C-spine fracture, left shoulder fracture, pneumothorax, left hip fracture, anemia, electrolyte abnormalities, arrhythmia, UTI, pneumonia, hyperglycemia, hypoglycemia. We will obtain a CT brain, cervical spine to rule out intracranial hemorrhage or C-spine fracture. Patient has no midline back pain. She does have tenderness to palpation over the left shoulder and is not ranging this. So I will obtain an x-ray of the left shoulder and the left hip she also has pain here. Patient is medicated with morphine. CBC to assess white blood cell count, hemoglobin, platelets. CMP to assess liver function, renal function, electrolytes, glucose, high-sensitivity troponin and EKG to assess for ischemia and dysrhythmia. Chest x-ray to rule out pneumonia, pneumothorax. BNP to assess for CHF. EKG on my interpretation shows a atrial fibrillation at a controlled ventricular response at 65 bpm without sign of ischemic change. CBC shows a normal white blood cell count at 7.8. Hemoglobin stable at 12.2. Platelets are normal at 328. Renal function electrolytes unremarkable. LFTs are unremarkable. BNP is slightly elevated at 263 however her chest x-ray on my interpretation shows no evidence of CHF. High-sensitivity troponin is 10. CT brain and CT cervical spine interpreted by the radiologist as negative for acute findings. Urinalysis is negative. Left shoulder x-ray on my interpretation shows no acute fracture or subluxation. Left hip x-ray does show a left hip fracture. Discussed with Dr. Boles. She has not had her Eliquis since yesterday so he plans on doing surgery tomorrow. I discussed this at the hospitalist who will admit the patient. She was given a second dose of fentanyl for her pain because her blood pressure dropped with morphine. Admitted in stable condition. Impression: 1. Syncope 2. Closed head injury 3. Left shoulder contusion 4. Left hip fracture Lab Data Attestation: I reviewed the patient's lab results. Labs: Laboratory Results - last 24 hr 11/06/22 11/06/22 11/06/22 10:30 10:30 10:30 WBC 7.8 RBC 3.74 L Hgb 12.2 Hct 38.7 MCV 103.5 H MCH 32.6 H MCHC 31.5 L RDW Std Deviation 55.4 H RDW Coeff of Robert 14.7 H Plt Count 328 MPV 9.6 Immature Gran % (Auto) 1.500 H Neut % (Auto) 77.1 H Lymph % (Auto) 12.1 L [place] % (Auto) 5.4 Eos % (Auto) 3.1 Baso % (Auto) 0.8 Absolute Neuts (auto) 6.1 Absolute Lymphs (auto) 0.95 Nucleated RBC % 0 Sodium 139 Potassium 3.7 Chloride 105 Carbon Dioxide 25.0 Anion Gap 9 BUN 17 Creatinine 1.01 Estim Creat Clear Calc 22.39 Est GFR (MDRD) Af Amer 67 Est GFR (MDRD) Non-Af 56 L BUN/Creatinine Ratio 16.8 Glucose 137 H Calcium 9.4 Total Bilirubin 0.40 AST 13 L ALT 13 Alkaline Phosphatase 153 H Troponin I High Sens 10 B-Natriuretic Peptide 263.0 H Total Protein 6.5 Albumin 3.1 L Globulin 3.4 Albumin/Globulin Ratio 0.9 Urine Color Urine Clarity Urine pH Ur Specific [place] Urine Protein Urine Glucose (UA) Urine Ketones Urine Occult Blood Urine Nitrite Urine Bilirubin Urine Urobilinogen Ur Leukocyte Esterase Urine RBC Urine WBC Ur Squamous Epith Cells Calcium Oxalate Crystal Urine Bacteria Urine Mucus 11/06/22 12:05 WBC RBC Hgb Hct MCV MCH MCHC RDW Std Deviation RDW Coeff of Robert Plt Count MPV Immature Gran % (Auto) Neut % (Auto) Lymph % (Auto) [place] % (Auto) Eos % (Auto) Baso % (Auto) Absolute Neuts (auto) Absolute Lymphs (auto) Nucleated RBC % Sodium Potassium Chloride Carbon Dioxide Anion Gap BUN Creatinine Estim Creat Clear Calc Est GFR (MDRD) Af Amer Est GFR (MDRD) Non-Af BUN/Creatinine Ratio Glucose Calcium Total Bilirubin AST ALT Alkaline Phosphatase Troponin I High Sens B-Natriuretic Peptide Total Protein Albumin Globulin Albumin/Globulin Ratio Urine Color Yellow Urine Clarity Clear Urine pH 5.0 Ur Specific [place] 1.030 Urine Protein 30 H Urine Glucose (UA) Normal Urine Ketones 5 H Urine Occult Blood 25 H Urine Nitrite Negative Urine Bilirubin Negative Urine Urobilinogen 1 H Ur Leukocyte Esterase 25 H Urine RBC 0-5 SEEN Urine WBC 0-5 SEEN Ur Squamous Epith Cells 0 SEEN Calcium Oxalate Crystal 2+ Urine Bacteria 0 SEEN Urine Mucus 0 SEEN Radiography Diagnostic Testing: Clinical Impression(s) from Imaging Studies Brain CT 11/06/22 10:38 IMPRESSION: Moderate cortical and central atrophy. Mild chronic microvascular ischemic change. Mild cerebellar atrophy. Electronically Signed: Brijesh Watkins MD, JD at 11:34 EDT , ADDENDUM: 11/06/22 1145 IMPRESSION: undefined Cervical Spine CT 11/06/22 10:38 IMPRESSION: No evidence of acute cervical spinal fracture or spondylolisthesis. Degenerative and postoperative changes as above. N.B. : The above Results were Read Back by Brijesh Watkins MD, JD to Luis Christina DO, and understanding confirmed on 11/06/2022 11:36:20 (ET). Electronically Signed: Brijesh Watkins MD, JD at 11:37 EDT , ADDENDUM: 11/06/22 1144 IMPRESSION: No evidence of acute cervical spinal fracture or spondylolisthesis. Degenerative and postoperative changes as above. N.B. : The above Results were Read Back by Brijesh Watkins MD, JD to Luis Christina DO, and understanding confirmed on 11/06/2022 11:36:20 (ET). Electronically Signed: Brijesh Watkins MD, JD at 11:37 EDT , Chest X-Ray 11/06/22 10:38 IMPRESSION: Mild fibrosis left base. Mild cardiomegaly. Mildly tortuous descending aorta. Electronically Signed: Brijesh Watkins MD, JD at 11:43 EDT , Hip/Pelvis X-Ray 11/06/22 10:38 IMPRESSION: Left hip fracture as above. Electronically Signed: Brijesh Watkins MD, JD at 11:44 EDT Reading Location ID and State: [facility] / [place] Tel , Service support , Shoulder X-Ray 11/06/22 10:38 IMPRESSION: Degenerative changes as above. Electronically Signed: Brijesh Watkins MD, JD at 11:45 EDT , Discharge Plan Disposition Disposition: Acute Care Hospital [facility] Discharge Date/Time: 11/06/22 13:04
[2022-11-06] MEDS: Morphine 4 MG/ML Syringe IV (10:47)
[2022-11-06] MEDS: Ondansetron 4 MG/2 ML Vial IV (10:48)
[2022-11-06 10:53] LABS: Absolute Lymphocyte Count 0.95 X10^3/uL (0.83-4.51); Absolute Neutrophil Count 6.1 X10^3/uL (2.0-7.7); Basophil# 0.06 X10^3/uL; Basophil% 0.8 % (0-1); Eosinophil# 0.24 X10^3/uL; Eosinophils% 3.1 % (0-5); Hematocrit 38.7 % (37-47); Hemoglobin 12.2 g/dL (12.0-15.0); Lymphocyte # 0.95 X10^3/ul (0.83-4.51); Lymphocyte % 12.1 % (19-41); Mean Corp Hgb Conc 31.5 g/dL (32-36); Mean Corpuscular Hgb 32.6 pg (27.0-32.0); Mean Corpuscular Volume 103.5 fL (81-99); Mean Platelet Vol. 9.6 fl (6.2-12.0); Monocyte# 0.42 X10^3/uL; Monocyte% 5.4 % (0-10); NRBC Flagged by Analyzer 0 % (0-5); Neutrophil # 6.05 X10^3/uL (2.7-7.7); Neutrophil % 77.1 % (47-70); Platelet Count 328 K/mm3 (150-450); RBC Distribution Width CV 14.7 % (11.6-14.6); RBC Distribution Width SD 55.4 fl (35.1-43.9); Red Blood Count 3.74 M/mm3 (4.2-5.4); White Blood Count 7.8 K/mm3 (4.4-11.0)
[2022-11-06 11:05] LABS: ALB/GLOB Ratio 0.9 RATIO (0.9-2.4); AST(SGOT) 13 U/L (15-37); Alanine Aminotransfer ALT/SGPT 13 U/L (13-56); Albumin, Serum 3.1 g/dL (3.2-5.0); Alkaline Phosphatase 153 U/L (45-117); Anion Gap 9 (5-15); BUN 17 mg/dL (7-18); BUN/Creat Ratio 16.8 RATIO (10-20); Calcium,Total 9.4 mg/dL (8.5-10.1); Chloride 105 mmol/L (98-107); Creatinine, Serum 1.01 mg/dL (0.55-1.02); EST Glomerular Filtration Rate 56 mL/min (>60); Est Glom Filt Rate - Afr Amer 67 mL/min (>60); Estimated Creatinine Clearance 22.39 ml/min; Globulin 3.4 g/dL (2.2-4.2); Glucose 137 mg/dL (74-106); Potassium 3.7 mmol/L (3.5-5.1); Protein, Total 6.5 g/dL (6.4-8.2); Sodium Level 139 mmol/L (136-145); Troponin-I HS 10 pg/mL (3.0-54.0)
[2022-11-06] MEDS: fentaNYL 100 MCG/2 ML Ampul 25 MCG IV (12:09)
[2022-11-06 12:13] LABS: Bacteria 0 SEEN /hpf (None Seen); Mucous, Urine 0 SEEN /hpf (<or=2+); Squamous Epithelial Cells - UA 0 SEEN /hpf (5-10)
[2022-11-06 12:17] LABS: Color, Urine Yellow (Yellow); Glucose, Dipstick Normal (Normal); Ketone-Dipstick 5 mg/dl (Negative); Leukocyte Esterase-Dipstick 25 /ul (Negative); Nitrite-Dipstick Negative (Negative); Occult Blood-Urine 25 /ul (Negative); Protein-Dipstick 30 mg/dl (Negative); Urine Bilirubin Dipstick Negative (Negative); Urine Clarity Clear (Clear); Urine Urobilinogen 1 mg/dl (Normal)
[2022-11-06 12:31] LABS: Red Blood Cells-Urine 0-5 SEEN /hpf (0-5); White Blood Cells 0-5 SEEN /hpf (0-5)
[2022-11-06 12:32] LABS: Calcium Oxalate Crystals Ur 2+ /hpf (<or=2+)
--- NOTE | 2022-11-06 12:36 | HP.PCM.HOS_ITS ---
HPI - General General Date of Admission: 11/06/22 Date of Service: 11/06/22 Chief Complaint: Fall/Left hip pain HPI Narrative MAGDY MIRAMONTES, is a 82 F who presented to the emergency department at [facility] complaining of left hip pain after a fall. The patient does have some mild Alzheimer's dementia at baseline however she was able to give her own history. No one else was at the bedside at the time of my evaluation and we could not find her who was previously in the room. Patient reports that she bent over to check the dog's bowl and started falling forward landing on her left side. There is documentation that she blacked out when it happened but upon further questioning the patient states she never lost consciousness. She does have a seizure disorder however she does not feel like today was a seizure. She complained of a mild headache on presentation as well as left shoulder pain and left hip pain. She was unable to ambulate following. She denied any tingling or numbness. She had no back pain, chest pain, or shortness of breath at the time of presentation. 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 It was documented the patient had been on Eliquis and it appears that she was discharged from TCU on Eliquis however her Eliquis was stopped on 10/05/2022. The reason for this discontinuation is unclear at this time. Upon presentation she was found to have a temperature of 97.2, heart rate 84, blood pressure 116/71, respiratory to 18 and oxygen saturations were 96% on room air. CBC showed no significant abnormalities. Her chemistry panel was overall unremarkable. Her BNP was elevated however she has a chronically elevated BNP and her chest x-ray showed no signs of heart failure. Her UA was not consistent with infection. EKG showed atrial fibrillation with normal intervals and no ST- T wave changes concerning for acute ischemia. A CT of her brain demonstrated moderate cortical and central atrophy along with mild chronic microvascular isc hemic changes and mild cerebellar atrophy. CT of her cervical spine showed no evidence of acute cervical spinal fracture or spondylolisthesis. Hip and pelvic x-ray showed a subcapital fracture of the left hip with superior lateral displacement of the proximal femur more with respect to the femoral head. Shoulder x-ray demonstrated only degenerative changes with no acute abnormalities otherwise. She was able to passively move her shoulder without significant pain however active movement was problematic for her. [facility] Medical History Abnormal stress test Acute postoperative pain of right knee Acute systolic congestive heart failure Ambulates with cane Anxiety Aortic stenosis Arthritis Atherosclerotic heart disease of [place] coronary artery without angina pectoris Back pain Cardiology follow-up encounter Cardiomyopathy Cellulitis of chest wall Chronic constipation Chronic cough Congestive heart failure (CHF) Debility Debility Dementia Depression Depression Diabetes Diabetes mellitus Diabetic neuropathy Diabetic polyneuropathy Dietary restriction DM2 (diabetes mellitus, type 2) Epilepsy Essential hypertension Former smoker H/O cardiac murmur History of atrial fibrillation History of echocardiogram History of left heart catheterization (LHC) (~06/02/22) History of pain when walking History of steroid therapy History of stress test Hx of back injury Hx of vaginal delivery Hypertension Hypertension Hypertension Inability to ambulate due to knee Injury of back Injury of head and neck Nephrolithiasis Neuropathy Neuropathy, diabetic Other [facility]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 Parkinson's disease Paroxysmal atrial fibrillation Pericardial effusion Pleural effusion due to CHF (congestive heart failure) Seizure disorder Seizures Tremor Vitamin D deficiency Wears glasses Home Medications duloxetine 30 mg capsule,delayed release 30 mg PO DAILY NEUROPATHY 09/22/20 [History Last Taken 08/28/22] nitroglycerin 0.4 mg sublingual tablet 0.4 mg sublingual Q5M PRN Cardiac/Chest Pain #0 tabs 06/11/22 [Rx Last Taken Unknown] Lactobacillus rhamnosus GG 10 billion cell-inulin 200 mg capsule ([facility] 1 cap PO DAILY PRN GUT HEALTH 08/10/22 [History Last Taken Unknown] cyanocobalamin (vitamin B-12) 1,000 mcg tablet (Vitamin B-12) 1,000 mcg PO DAILY supplement 08/10/22 [History Last Taken 08/29/22] famotidine 40 mg tablet 40 mg PO BID stomach 08/10/22 [History Last Taken 08/29/22] furosemide 40 mg tablet 40 mg PO BID Diuretic 08/10/22 [History Last Taken 08/29/22] melatonin 3 mg tablet 3 mg PO HS sleep 08/10/22 [History Last Taken Unknown] diltiazem HCl 120 mg capsule,extended release 24 hr (Cartia XT) 120 mg PO BID heart 08/29/22 [History Last Taken 08/29/22] metoprolol succinate 25 mg tablet,extended release 24 hr 25 mg PO DAILY blood pressure 08/30/22 [History Last Taken Unknown] acetaminophen 500 mg tablet 1,000 mg PO Q6H PRN PRN Pain Score 1-10 #0 tabs 09/17/22 [Rx Last Taken Unknown] lamotrigine 100 mg tablet 100 mg PO BID 30 days #60 tabs 09/17/22 [Rx Last Taken Unknown] potassium chloride 20 mEq tablet,extended release(part/cryst) (Klor-Con M) 20 meq PO BIDCM 30 days #60 tabs 09/17/22 [Rx Last Taken Unknown] aspirin 81 mg capsule 81 mg PO DAILY 11/06/22 [History Last Taken Unknown] cholecalciferol (vitamin D3) 25 mcg (1,000 unit) tablet (Vitamin D3) 25 mcg PO DAILY 11/06/22 [History Last Taken Unknown] Allergy/AdvReac Type Severity Reaction Status Date / Time bacitracin Allergy Rash Verified 08/29/22 13:54 [From Neosporin ([id number])] bacitracin zinc Allergy Rash Verified 08/29/22 13:54 [From Neosporin ([id number])] levetiracetam Allergy Other Verified 08/29/22 13:54 neomycin sulfate Allergy Rash Verified 08/29/22 13:54 [From Neosporin ([id number])] nickel Allergy Other Verified 08/29/22 13:54 polymyxin B Allergy Rash Verified 08/29/22 13:54 [From Neosporin ([id number])] sulfamethoxazole Allergy Itching Verified 08/29/22 13:54 [From Bactrim] trimethoprim [From Bactrim] Allergy Itching Verified 08/29/22 13:54 codeine AdvReac Nausea Verified 08/29/22 13:54 milk AdvReac Nausea/Vom/ Verified 08/29/22 13:54 Diarrhea Family History Father No problems noted. Mother No problems noted. Surgical History Amputated toe of right foot Deviated septum History of appendectomy History of cholecystectomy History of hysterectomy History of neck surgery History of tonsillectomy History of total right knee replacement (TKR) Hx of cystoscopy Hx of fusion of cervical spine S/P total knee arthroplasty Social History household members: spouse Smoking Status: Former smoker alcohol intake: never substance use type: does not use caffeine: No what type of physical activity do you participate in: other details: physical therapy seatbelt use: always do you feel safe at home: Yes ROS Constitutional Constitutional: Denies anorexia, change in weight, chills, fatigue, fever(s), malaise, night sweats, weakness or other Eyes Eyes: Denies blurry vision, change in eye color, change in vision, discharge from eye(s), double vision, erythema, eye pain, loss of vision or other ENT HEENT: Denies abnormal hearing, dysphagia, ear pain, epistaxis, headache(s), hearing loss, nasal congestion, nasal discharge, post nasal drip, sinus pressure, sore throat or other Cardiovascular Cardiovascular: Denies chest pain, claudication, dyspnea on exertion, edema, lightheadedness, orthopnea, palpitations, paroxysmal nocturnal dyspnea, rapid heart rate, syncope or other Respiratory/Chest Respiratory/Chest: Denies cough, dyspnea, excessive phlegm production, he moptysis, productive cough, shortness of breath at rest, shortness of breath with exertion, wheezing or other Gastrointestinal Gastrointestinal: Denies abdominal pain, coffee ground emesis, constipation, diarrhea, dyspepsia, hematemesis, hematochezia, loose stools, melena, nausea, vomiting or other Genitourinary Genitourinary: Denies burning urination, difficulty urinating, dysuria, hematuria, nocturia, urinary frequency, urinary hesitancy, urinary incontinence, urinary urgency or other Musculoskeletal Musculoskeletal: Reports joint pain; Denies arthralgias, back pain, joint stiffness, joint swelling, myalgias, neck pain or other Neurologic Neurologic: Reports other Details: Dementia at baseline ; Denies abnormal gait, abnormal speech, confusion, disequilibrium, dizziness, focal weakness, headache(s), numbness, paresthesias, seizure-like activity, seizures, syncope, tingling or tremor(s) Psychiatric Psychiatric: Reports depression; Denies anxiety, homicidal ideation, suicidal ideation or other Endocrine Endocrinology: Denies change in body appearance, cold intolerance, excessive sweating, heat intolerance, polydipsia, polyuria or other Hematologic/Lymphatic Hematologic/Lymphatic: Denies anemia, easy bleeding, easy bruising, lymphadenopa thy or other Allergic/Immunologic Allergic/Immunologic: Denies rhinitis, hives, eczemia, asthma or other Vital Signs Vital Signs Vital Signs: 11/06/22 10:27 11/06/22 10:53 11/06/22 11:07 Temperature 97.2 F L Temperature Source Temporal Pulse Rate 84 78 74 Respiratory Rate 18 18 Blood Pressure 116/71 101/65 102/60 Blood Pressure Mean 86 77 74 Pulse Ox 96 93 Oxygen Delivery Method Room Air Oxygen Flow Rate (L/min) 11/06/22 12:25 11/06/22 12:35 11/06/22 12:35 Temperature 96.3 F L Temperature Source Temporal Pulse Rate 89 85 Respiratory Rate 18 Blood Pressure 96/75 107/71 Blood Pressure Mean 82 83 Pulse Ox 95 78 97 Oxygen Delivery Method Room Air Room Air Nasal Cannula Oxygen Flow Rate (L/min) 3 Weight Weight: 34.2 kg Body Mass Index (BMI) 11.7 Physical Exam Const alert, oriented x3, no apparent distress, average body habitus and well nourished Constitutional Narrative: Elderly white female who is alert and oriented x3 but has mild confusion with more detailed conversation, lying in bed, appears comfortable at this time, nontoxic, complaining of left shoulder and hip pain General Appearance: cooperative HEENT normocephalic, head/scalp atraumatic and moist oral mucous membranes; Negative for hearing grossly normal bilaterally HEENT Narrative: Dentition is fair for age, Mallampati is 2, no thrush, mild hearing loss Eyes PERRL, EOMs intact bilaterally and conjunctivae normal Eyes Narrative: No scleral icterus is Neck no lymphadenopathy, supple, no JVD and no carotid bruits Neck Narrative: He had murmur that radiates to bilateral carotids Resp normal respiratory effort, no retractions, no use of accessory muscles and clear to auscultation bilaterally Auscultation: Negative for rales, rhonchi or wheezes Cardio regular rate, S1 normal heart sound, S2 normal heart sound, no rub, no gallops and no clicks; Negative for no murmurs Cardio Narrative: Irregularly irregular rhythm, 3 out of 6 systolic murmur GI normal to inspection, nondistended, normoactive bowel sounds, soft to palpation and non-tender Extremity Extremity Narrative: Left lower extremity is shortened and externally rotated, there is no cyanosis or clubbing Skin no wounds, skin turgor normal, no jaundice, no petechiae and no mottling Skin Narrative: Scattered ecchymosis Neuro oriented x3 and CN's II-XII intact bilaterally Neuro Narrative: Mild confusion but alert and oriented x3, difficulty moving left lower extremity and left upper extremity due to pain but no focal deficits Speech: speech normal Psych affect normal Psych Narrative: Pleasant, appropriate Results Lab / Micro Data Result Diagrams: 11/06/22 10:30 11/06/22 10:30 Labs: Laboratory Results - last 24 hr 11/06/22 10:30: WBC 7.8, RBC 3.74 L, Hgb 12.2, Hct 38.7, MCV 103.5 H, MCH 32.6 H , MCHC 31.5 L, RDW Std Deviation 55.4 H, RDW Coeff of Robert 14.7 H, Plt Count 328, MPV 9.6, Immature Gran % (Auto) 1.500 H, Neut % (Auto) 77.1 H, Lymph % (Auto) 12.1 L, [place] % (Auto) 5.4, Eos % (Auto) 3.1, Baso % (Auto) 0.8, Absolute Neuts (auto) 6.1, Absolute Lymphs (auto) 0.95, Nucleated RBC % 0 11/06/22 10:30: Sodium 139, Potassium 3.7, Chloride 105, Carbon Dioxide 25.0, Anion Gap 9, BUN 17, Creatinine 1.01, Estim Creat Clear Calc 22.39, Est GFR (MDRD) Af Amer 67, Est GFR (MDRD) Non-Af 56 L, BUN/Creatinine Ratio 16.8, Glucose 137 H, Calcium 9.4, Total Bilirubin 0.40, AST 13 L, ALT 13, Alkaline Phosphatase 153 H, Troponin I High Sens 10, Total Protein 6.5, Albumin 3.1 L, Globulin 3.4, Albumin/Globulin Ratio 0.9 11/06/22 10:30: B-Natriuretic Peptide 263.0 H 11/06/22 12:05: Urine Color Yellow, Urine Clarity Clear, Urine pH 5.0, Ur Specific [place] 1.030, Urine Protein 30 H, Urine Glucose (UA) Normal, Urine Ketones 5 H, Urine Occult Blood 25 H, Urine Nitrite Negative, Urine Bilirubin Negative, Urine Urobilinogen 1 H, Ur Leukocyte Esterase 25 H, Urine RBC 0-5 SEEN, Urine WBC 0-5 SEEN, Ur Squamous Epith Cells 0 SEEN, Calcium Oxalate Crystal 2+, Urine Bacteria 0 SEEN, Urine Mucus 0 SEEN Radiology Impression Brain CT 11/06/22 10:38 IMPRESSION: Moderate cortical and central atrophy. Mild chronic microvascular ischemic change. Mild cerebellar atrophy. Electronically Signed: Brijesh Watkins MD, JD at 11:34 EDT , ADDENDUM: 11/06/22 1145 IMPRESSION: undefined Cervical Spine CT 11/06/22 10:38 IMPRESSION: No evidence of acute cervical spinal fracture or spondylolisthesis. Degenerative and postoperative changes as above. N.B. : The above Results were Read Back by Brijesh Watkins MD, JD to Luis Christina DO, and understanding confirmed on 11/06/2022 11:36:20 (ET). Electronically Signed: Brijesh Watkins MD, JD at 11:37 EDT , ADDENDUM: 11/06/22 1144 IMPRESSION: No evidence of acute cervical spinal fracture or spondylolisthesis. Degenerative and postoperative changes as above. N.B. : The above Results were Read Back by Brijesh Watkins MD, JD to Luis Christina DO, and understanding confirmed on 11/06/2022 11:36:20 (ET). Electronically Signed: Brijesh Watkins MD, JD at 11:37 EDT , Chest X-Ray 11/06/22 10:38 IMPRESSION: Mild fibrosis left base. Mild cardiomegaly. Mildly tortuous descending aorta. Electronically Signed: Brijesh Watkins MD, ISIDRO at 11:43 EDT , Hip/Pelvis X-Ray 11/06/22 10:38 IMPRESSION: Left hip fracture as above. Electronically Signed: Brijesh Watkins MD, JD at 11:44 EDT , Shoulder X-Ray 11/06/22 10:38 IMPRESSION: Degenerative changes as above. Electronically Signed: Brijesh Watkins MD, JD at 11:45 EDT , Assessment & Plan Assessment/Plan (1) Fall: (2) Closed left hip fracture: PLAN: Plan Closed left hip fracture -Imaging revealed subcapital fracture of the left hip with superior lateral displacement of the proximal femur with respect to the femoral head -Consult orthopedic surgery -Schedule Tylenol -As needed low-dose oxycodone and morphine for breakthrough--> low-dose -As needed bowel regimen -Plan is for surgical repair tomorrow -Chest x-ray shows no acute processes and EKG shows no concerning features -Check preoperative echocardiogram with recent cardiac issues -PT/OT consultation after surgical repair Fall -Initially reported a syncope but on further questioning does not sound like this was a syncopal episode and was more a matter of balance loss upon bending forward -Patient denied any loss of consciousness -PT/OT consultation -Patient will likely need placement at discharge and has been to the TCU previously -Consult case management/social work for assistance with discharge Nonischemic cardiomyopathy/nonobstructive CAD/hypertension -Does not appear to be ischemic based on recent cardiac catheterization done on 06/02/2022 that showed nonobstructive coronary artery disease -Has been following with cardiology for this -Echocardiogram actually shows worsening EF at currently 25%. -Last echo from 05/2022 showed an EF of 35% with moderate segmental systolic dysfunction and mild concentric LVH -Cardiac catheterization was done at this time -Hold diltiazem for now and monitor on telemetry -Continue home metoprolol -Continue home Lasix -Hold aspirin for now but restart after surgery A-fib with RVR -Eliquis was discontinued on 10/05/2022 -Reason is unclear at this time Patient had been on dig but it looks like this has been discontinued as well -We will hold diltiazem due to soft blood pressures but do not hesitate to restart if heart rates start to elevate and blood pressure stable -Continue home beta-isi Recent pericardial effusion -Was on colchicine -Has been discontinued -Pericardial window done in July of this past year -No pericardial effusion noted on current echocardiogram Aortic stenosis -mild-mod aortic stenosis on echo Seizure disorder -Continue home antiepileptic drugs Neuropathy -Patient on any current medications Alzheimer's type dementia -Mild at this time -Patient is alert and oriented at presentation -Expect some delirium postoperatively and while hospitalized DVT prophylaxis -Start Lovenox but hold 12 hours prior to surgery -SCDs while Lovenox interrupted CODE STATUS -DNR CCA with no intubation Charges/Coding Visit Charges Inpatient E&M: 28111 Init Hosp L2
--- NOTE | 2022-11-06 13:23 | ECHOD_ITS ---
Reason For Study: syncope/near syncope Procedure This was a 2D Doppler, Color Flow transthoracic echocardiogram. The study was technically difficult. Unable to reposition PT due to pain of left hip fracture and arrhythmia. Exam performed portable in patient room. Left Ventricle Mild concentric left ventricular hypertrophy. Mildly dilated left ventricle. Severe global left ventricular systolic dysfunction. The left ventricular ejection fraction is 25 %. Unable to assess diastolic dysfunction due to arrhythmia. Septal motion consistent with bundle branch block. Right Ventricle Normal right ventricle. Atria The left atrium is moderately enlarged. Normal right atrium. Mitral Valve Mild (1+) mitral valve insufficiency. Tricuspid Valve Moderate (2+) tricuspid valve insufficiency. Right ventricular systolic pressure estimated to be 35 mmHg. Aortic Valve Mild to moderate aortic stenosis. Mild-Moderate (1-2+) aortic valve insufficiency. Pulmonic Valve The pulmonic valve is not well visualized. Great Vessels Normal sized aortic root. Pericardium/Pleural No pericardial effusion. MMode/2D Measurements & Calculations LVIDd: 5.8 cm IVSd: 2.0 cm LVOT diam: 2.2 cm LVIDs: 4.3 cm LVPWd: 1.2 cm LVOT area: 3.7 cm2 RVDd: 3.2 cm FS: 25.8 % Ao root diam: 3.3 cm LAV(MOD-bp): 69.0 ml LVAd ap4: 30.5 cm2 LAV(MOD-sp2): 81.4 ml LVLd ap4: 7.3 cm LAV(MOD-sp4): 62.9 ml EDV(MOD-sp4): 106.2 ml EDV(sp4-el): 109.2 ml LVAs ap4: 19.8 cm2 LVLs ap4: 6.5 cm ESV(MOD-sp4): 49.4 ml ESV(sp4-el): 50.8 ml EF(MOD-sp4): 53.5 % EF(sp4-el): 53.5 % SV(MOD-sp4): 56.8 ml SV(sp4-el): 58.4 ml LA A4 area: 20.8 cm2 LA dimension(2D): 4.0 cm RA A4 area: 15.0 cm2 Doppler Measurements & Calculations Lat Peak E' Kai: 11.5 cm/sec Med Peak E' Kai: 6.0 cm/sec Ao V2 max: 240.2 cm/sec Ao max P.5 mmHg Ao V2 mean: 169.9 cm/sec Ao mean P.4 mmHg Ao V2 VTI: 45.3 cm AV (velocity ratio): 0.38 PRISCILLA(I,D): 1.4 cm2 PRISCILLA(V,D): 1.3 cm2 LV V1 max: 83.9 cm/sec SV(LVOT): 62.9 ml PA V2 max: 110.8 cm/sec LV V1 max P.8 mmHg LV V1 mean P.7 mmHg LV V1 mean: 62.1 cm/sec LV V1 VTI: 17.0 cm TR max kai: 261.4 cm/sec TR max P.3 mmHg ECHO/Echo Complete Interpretation Summary Mild concentric left ventricular hypertrophy. Mildly dilated left ventricle. Severe global left ventricular systolic dysfunction. The left ventricular ejection fraction is 25 %. Unable to assess diastolic dysfunction due to arrhythmia. The left atrium is moderately enlarged. Mild (1+) mitral valve insufficiency. Moderate (2+) tricuspid valve insufficiency. Mild to moderate aortic stenosis. Mild-Moderate (1-2+) aortic valve insufficiency. Ordering Physician: Gracy Mendez Referring Physician: Nahomy Bettencourt Performed By: Helen Sargent, RDCS, RVT
--- NOTE | 2022-11-06 13:37 | CON.PCM.OR_ITS ---
HPI Consult Data Date of Consult: 11/06/22 HPI Narrative HPI Narrative: MAGDY MIRAMONTES, is a 82 F who presents to [facility] after a mechanical fall onto her left side earlier today at home. Patient denies any head injury or loss consciousness however the details of the fall seem fuzzy. She reports some left shoulder pain otherwise denies any other injuries. Denies antecedent left hip or groin pain. Patient ambulates with a walker normally due to bilateral neuropathy in her feet which she is unsure the etiology of, but does admit to history of diabetes as well as remote lumbar surgery and multiple injuries to her low back horse riding in the past. Patient states 3 weeks ago she was admitted at [facility] for seizures and has since returned home with a change to her seizure medication. She was admitted under the service of the hospitalist. I saw the patient in consultation. Patient has history of syncope, CAD, seizure disorder, anxiety depression, CHF, A-fib. Patient reports no blood thinners other than a baby aspirin at this time. [facility] Medical History Abnormal stress test Acute postoperative pain of right knee Acute systolic congestive heart failure Ambulates with cane Anxiety Aortic stenosis Arthritis Atherosclerotic heart disease of [place] coronary artery without angina pectoris Back pain Cardiology follow-up encounter Cardiomyopathy Cellulitis of chest wall Chronic constipation Chronic cough Debility Debility Depression Depression Diabetes Diabetes mellitus Diabetic neuropathy Diabetic polyneuropathy Dietary restriction DM2 (diabetes mellitus, type 2) Epilepsy Essential hypertension Former smoker H/O cardiac murmur History of atrial fibrillation History of echocardiogram History of left heart catheterization (LHC) (~06/02/22) History of pain when walking History of steroid therapy History of stress test Hx of back injury Hx of vaginal delivery Hypertension Hypertension Hypertension Inability to ambulate due to knee Injury of back Injury of head and neck Nephrolithiasis Neuropathy Neuropathy, diabetic 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 Paroxysmal atrial fibrillation Pericardial effusion Pleural effusion due to CHF (congestive heart failure) Seizure disorder Tremor Vitamin D deficiency Wears glasses Home Medications duloxetine 30 mg capsule,delayed release 30 mg PO DAILY NEUROPATHY 09/22/20 [History Last Taken 08/28/22] nitroglycerin 0.4 mg sublingual tablet 0.4 mg sublingual Q5M PRN Cardiac/Chest Pain #0 tabs 06/11/22 [Rx Last Taken Unknown] Lactobacillus rhamnosus GG 10 billion cell-inulin 200 mg capsule ([facility]) 1 cap PO DAILY PRN [facility] 08/10/22 [History Last Taken Unknown] cyanocobalamin (vitamin B-12) 1,000 mcg tablet (Vitamin B-12) 1,000 mcg PO DAILY supplement 08/10/22 [History Last Taken 08/29/22] famotidine 40 mg tablet 40 mg PO BID stomach 08/10/22 [History Last Taken 08/29/22] furosemide 40 mg tablet 40 mg PO BID Diuretic 08/10/22 [History Last Taken 08/29/22] melatonin 3 mg tablet 3 mg PO HS sleep 08/10/22 [History Last Taken Unknown] diltiazem HCl 120 mg capsule,extended release 24 hr (Cartia XT) 120 mg PO BID heart 08/29/22 [History Last Taken 08/29/22] metoprolol succinate 25 mg tablet,extended release 24 hr 25 mg PO DAILY blood pressure 08/30/22 [History Last Taken Unknown] acetaminophen 500 mg tablet 1,000 mg PO Q6H PRN PRN Pain Score 1-10 #0 tabs 09/17/22 [Rx Last Taken Unknown] lamotrigine 100 mg tablet 100 mg PO BID 30 days #60 tabs 09/17/22 [Rx Last Taken Unknown] potassium chloride 20 mEq tablet,extended release(part/cryst) (Klor-Con M) 20 meq PO BIDCM 30 days #60 tabs 09/17/22 [Rx Last Taken Unknown] aspirin 81 mg capsule 81 mg PO DAILY 11/06/22 [History Last Taken Unknown] cholecalciferol (vitamin D3) 25 mcg (1,000 unit) tablet (Vitamin D3) 25 mcg PO DAILY 11/06/22 [History Last Taken Unknown] Allergy/AdvReac Type Severity Reaction Status Date / Time bacitracin Allergy Rash Verified 08/29/22 13:54 [From Neosporin ([id number])] bacitracin zinc Allergy Rash Verified 08/29/22 13:54 [From Neosporin ([id number])] levetiracetam Allergy Other Verified 08/29/22 13:54 neomycin sulfate Allergy Rash Verified 08/29/22 13:54 [From Neosporin ([id number])] nickel Allergy Other Verified 08/29/22 13:54 polymyxin B Allergy Rash Verified 08/29/22 13:54 [From Neosporin ([id number])] sulfamethoxazole Allergy Itching Verified 08/29/22 13:54 [From Bactrim] trimethoprim [From Bactrim] Allergy Itching Verified 08/29/22 13:54 codeine AdvReac Nausea Verified 08/29/22 13:54 milk AdvReac Nausea/Vom/ Verified 08/29/22 13:54 Diarrhea Family History Father No problems noted. Mother No problems noted. Surgical History Amputated toe of right foot Deviated septum History of appendectomy History of cholecystectomy History of hysterectomy History of neck surgery History of tonsillectomy History of total right knee replacement (TKR) Hx of cystoscopy Hx of fusion of cervical spine S/P total knee arthroplasty Social History household members: spouse Smoking Status: Former smoker alcohol intake: never substance use type: does not use caffeine: No what type of physical activity do you participate in: other details: physical therapy seatbelt use: always do you feel safe at home: Yes ROS ROS Narrative 12 point review systems obtained, negative unless otherwise noted in HPI. Vital Signs Vital Signs Vital Signs: 11/06/22 10:27 11/06/22 10:53 11/06/22 11:07 Temperature 97.2 F L Temperature Source Temporal Pulse Rate 84 78 74 Respiratory Rate 18 18 Blood Pressure 116/71 101/65 102/60 Blood Pressure Mean 86 77 74 Blood Pressure Source Blood Pressure Position Blood Pressure Location Pulse Ox 96 93 Oxygen Delivery Method Room Air Oxygen Flow Rate (L/min) 11/06/22 12:25 11/06/22 12:35 11/06/22 12:35 Temperature 96.3 F L Temperature Source Temporal Pulse Rate 89 85 Respiratory Rate 18 Blood Pressure 96/75 107/71 Blood Pressure Mean 82 83 Blood Pressure Source Blood Pressure Position Blood Pressure Location Pulse Ox 95 78 97 Oxygen Delivery Method Room Air Room Air Nasal Cannula Oxygen Flow Rate (L/min) 3 11/06/22 13:28 Temperature 97.3 F L Temperature Source Oral Pulse Rate 92 Respiratory Rate 16 Blood Pressure 106/69 Blood Pressure Mean 81 Blood Pressure Source Monitor Blood Pressure Position Semi-Fowlers Blood Pressure Location Right Arm Pulse Ox 98 Oxygen Delivery Method Nasal Cannula Oxygen Flow Rate (L/min) 3 Weight Weight: 75 lb 6.369 oz Body Mass Index (BMI) 11.7 Physical Exam Narrative General -A&Ox3, NAD, appears stated age. Vital signs stable, afebrile. Respiratory -normal work of breathing, no intercostal retractions. CV -pulses regular, brisk capillary refill ?4 limbs. Abdomen-soft, nontender, nondistended. No guarding, rigidity, rebound tenderness. Musculoskeletal/neurologic -full range of motion nontender throughout right upper extremity, right lower extremity with full sensation and strength in all dermatomes and myotomes, except for diminished sensation along the dorsum and plantar right foot. No midline cervical tenderness. Left lower extremity-no obvious deformity. Pain with logroll of the left lower extremity. Nontender throughout the left knee femoral shaft, tibial shaft and left foot/ankle. Brisk capillary refill. Sensation intact light touch L3-S1 dermatomes except for diminished sensation along the dorsal and plantar left foot. DF, PF, EHL intact. DP, PT 2+. Pelvis is stable, nontender. Skin is intact without lacerations, abrasions. No ecchymosis noted. Left upper extremity-no obvious deformity. Tolerates internal ex rotation of the left shoulder well. Minimally tender about the left shoulder. Sensation intact to light touch C5-T1 dermatomes. Cardinal motions left hand are intact. Pain with active forward flexion of the left shoulder. Lab / Micro Data Result Diagrams: 11/06/22 10:30 11/06/22 10:30 Labs: Laboratory Results - last 24 hr 11/06/22 10:30: WBC 7.8, RBC 3.74 L, Hgb 12.2, Hct 38.7, MCV 103.5 H, MCH 32.6 H , MCHC 31.5 L, RDW Std Deviation 55.4 H, RDW Coeff of Robert 14.7 H, Plt Count 328, MPV 9.6, Immature Gran % (Auto) 1.500 H, Neut % (Auto) 77.1 H, Lymph % (Auto) 12.1 L, [place] % (Auto) 5.4, Eos % (Auto) 3.1, Baso % (Auto) 0.8, Absolute Neuts (auto) 6.1, Absolute Lymphs (auto) 0.95, Nucleated RBC % 0 11/06/22 10:30: Sodium 139, Potassium 3.7, Chloride 105, Carbon Dioxide 25.0, Anion Gap 9, BUN 17, Creatinine 1.01, Estim Creat Clear Calc 22.39, Est GFR (MDRD) Af Amer 67, Est GFR (MDRD) Non-Af 56 L, BUN/Creatinine Ratio 16.8, Glucose 137 H, Calcium 9.4, Total Bilirubin 0.40, AST 13 L, ALT 13, Alkaline Phosphatase 153 H, Troponin I High Sens 10, Total Protein 6.5, Albumin 3.1 L, Globulin 3.4, Albumin/Globulin Ratio 0.9 11/06/22 10:30: B-Natriuretic Peptide 263.0 H 11/06/22 12:05: Urine Color Yellow, Urine Clarity Clear, Urine pH 5.0, Ur Specific [place] 1.030, Urine Protein 30 H, Urine Glucose (UA) Normal, Urine Ketones 5 H, Urine Occult Blood 25 H, Urine Nitrite Negative, Urine Bilirubin Negative, Urine Urobilinogen 1 H, Ur Leukocyte Esterase 25 H, Urine RBC 0-5 SEEN, Urine WBC 0-5 SEEN, Ur Squamous Epith Cells 0 SEEN, Calcium Oxalate Crystal 2+, Urine Bacteria 0 SEEN, Urine Mucus 0 SEEN Radiology Impression Brain CT 11/06/22 10:38 IMPRESSION: Moderate cortical and central atrophy. Mild chronic microvascular ischemic change. Mild cerebellar atrophy. Electronically Signed: Brijesh Watkins MD, JD at 11:34 EDT Reading Location ID and State: [facility] / [place] Tel , Service support , ADDENDUM: 11/06/22 1145 IMPRESSION: undefined Cervical Spine CT 11/06/22 10:38 IMPRESSION: No evidence of acute cervical spinal fracture or spondylolisthesis. Degenerative and postoperative changes as above. N.B. : The above Results were Read Back by Brijesh Watkins MD, JD to Luis Christina DO, and understanding confirmed on 11/06/2022 11:36:20 (ET). Electronically Signed: Brijesh Watkins MD, JD at 11:37 EDT , ADDENDUM: 11/06/22 1144 IMPRESSION: No evidence of acute cervical spinal fracture or spondylolisthesis. Degenerative and postoperative changes as above. N.B. : The above Results were Read Back by Brijesh Watkins MD, JD to Luis Christina DO, and understanding confirmed on 11/06/2022 11:36:20 (ET). Electronically Signed: Brijesh Watkins MD, JD at 11:37 EDT , Chest X-Ray 11/06/22 10:38 IMPRESSION: Mild fibrosis left base. Mild cardiomegaly. Mildly tortuous descending aorta. Electronically Signed: Brijesh Watkins MD, JD at 11:43 EDT , Hip/Pelvis X-Ray 11/06/22 10:38 IMPRESSION: Left hip fracture as above. Electronically Signed: Brijesh Watkins MD, JD at 11:44 EDT , Shoulder X-Ray 11/06/22 10:38 IMPRESSION: Degenerative changes as above. Electronically Signed: Brijesh Watkins MD, JD at 11:45 EDT , Assessment & Plan Assessment/Plan (1) Closed left hip fracture: PLAN: Patient sustained a left displaced femoral neck fracture. -Closed, neurovascularly intact -Recommending surgical intervention in the form of left hip hemiarthroplasty -I discussed the procedure-its risks, benefits and alternative. Risks include but are not limited to bleeding, infection, loss of life or limb, risk of anesthesia, persistent pain or disability, need for additional surgery, instability, failure of orthopedic hardware, neurovascular injury, DVT or PE. Patient expressed understanding these risks and wished proceed with surgery. -Maintenance IV fluids, clear liquid diet after midnight n.p.o. at 2 hours prior to surgery -Type and screen -2 g Ancef on-call to the OR -Bedrest, heel protectors -Plan to proceed with surgery tomorrow if optimized from internal medicine perspective Thank you for this consultation. (2) Rotator cuff tear arthropathy of left shoulder: PLAN: X-rays reviewed consistent with cuff tear arthropathy of left shoulder. Ice as needed. I would recommend avoiding sling to the left upper extremity to allow for walker use postoperatively. Analgesics as needed.
[2022-11-06] MEDS: Morphine 2 MG/ML Syringe IV ×3 (14:24→23:42)
[2022-11-06] MEDS: oxyCODONE 5 MG Tablet 2.5 MG PO ×2 (15:41→21:21)
[2022-11-06 16:27] LABS: Hemoglobin A1c 5.3 % (3.8-5.6)
[2022-11-06] MEDS: Potassium Chloride Oral Tablet 20 MEQ PO (17:23)
[2022-11-06] MEDS: Furosemide 40 MG Tablet PO (17:24)
[2022-11-06] MEDS: lamoTRIgine 100 MG Tablet PO (21:10)
[2022-11-06] MEDS: MELATONIN 3 MG TABLET PO (21:10)
[2022-11-06] MEDS: Famotidine 20 MG Tablet 40 MG PO (21:10)
[2022-11-06] MEDS: Acetaminophen 500 MG Tablet 1000 MG PO (21:10)
[2022-11-06] MEDS: RisperiDONE 0.5 MG Tablet PO (21:11)
[2022-11-06] MEDS: Enoxaparin 40 MG/0.4 ML Syringe SC (21:30)
[2022-11-06] MEDS: Nystatin Powder 15gm Bottle 1 APPLIC TOPICAL (23:41)
[2022-11-06] MEDS: 0.9% Saline Lock 10 ML Syringe IV (23:42)
[2022-11-07] VITALS (11 sets, daily range): BP systolic 99–117; BP diastolic 56–82; PULSE 86–123; RESP 16–22; TEMP 36.6–36.8; O2SAT 90–100
[2022-11-07] MEDS: Furosemide 40 MG Tablet PO ×2 (05:42→14:14)
[2022-11-07] MEDS: Nystatin Powder 15gm Bottle 1 APPLIC TOPICAL ×3 (05:43→21:45)
[2022-11-07] MEDS: Acetaminophen 500 MG Tablet 1000 MG PO ×3 (05:43→21:43)
[2022-11-07 06:16] LABS: Absolute Lymphocyte Count 0.97 X10^3/uL (0.83-4.51); Absolute Neutrophil Count 5.6 X10^3/uL (2.0-7.7); Basophil# 0.04 X10^3/uL; Basophil% 0.5 % (0-1); Hematocrit 36.5 % (37-47); Hemoglobin 11.3 g/dL (12.0-15.0); Lymphocyte # 0.97 X10^3/ul (0.83-4.51); Lymphocyte % 12.9 % (19-41); Mean Corpuscular Hgb 32.2 pg (27.0-32.0); Mean Platelet Vol. 9.6 fl (6.2-12.0); Monocyte# 0.56 X10^3/uL; Monocyte% 7.5 % (0-10); NRBC Flagged by Analyzer 0 % (0-5); Neutrophil # 5.59 X10^3/uL (2.7-7.7); Neutrophil % 74.6 % (47-70); Platelet Count 264 K/mm3 (150-450); RBC Distribution Width CV 14.6 % (11.6-14.6); RBC Distribution Width SD 56.2 fl (35.1-43.9); Red Blood Count 3.51 M/mm3 (4.2-5.4); White Blood Count 7.5 K/mm3 (4.4-11.0)
[2022-11-07 06:32] LABS: Partial Thromboplast Time 32.5 Seconds (24.1-36.2)
[2022-11-07 07:00] LABS: ALB/GLOB Ratio 0.8 RATIO (0.9-2.4); AST(SGOT) 20 U/L (15-37); Alanine Aminotransfer ALT/SGPT 19 U/L (13-56); Albumin, Serum 2.6 g/dL (3.2-5.0); Alkaline Phosphatase 146 U/L (45-117); Anion Gap 5 (5-15); BUN 14 mg/dL (7-18); Calcium,Total 8.6 mg/dL (8.5-10.1); Chloride 106 mmol/L (98-107); Creatinine, Serum 0.61 mg/dL (0.55-1.02); EST Glomerular Filtration Rate 100 mL/min (>60); Est Glom Filt Rate - Afr Amer 120 mL/min (>60); Estimated Creatinine Clearance 40.72 ml/min; Globulin 3.2 g/dL (2.2-4.2); Glucose 108 mg/dL (74-106); Magnesium 2.2 mg/dL (1.6-2.6); Phosphorus 3.7 mg/dL (2.5-4.9); Potassium 3.7 mmol/L (3.5-5.1); Protein, Total 5.8 g/dL (6.4-8.2); Sodium Level 140 mmol/L (136-145); Thyroid Stim Hormone (TSH) 1.99 uIU/mL (0.358-3.74)
--- NOTE | 2022-11-07 08:16 | PCM.PN.CARD ---
Subjective Subjective The patient has been spending history significant for permanent atrial fibrillation, nonobstructive coronary artery disease, nonischemic cardiomyopathy and aortic stenosis. She also has history of mild dementia and seizure disorder. She presented to the hospital after sustaining a fall at home. According to her, she lost her balance and fell. She has been diagnosed with left hip fracture. Surgery is being contemplated. We are asked to evaluate her cardiac risk for the proposed procedure. Patient denies any chest pains or shortness of breath. She denies any orthopnea. No PND. No ankle edema. No syncope or presyncope. According to her, she does tend to lose her balance and has history of falls. Objective Data Vital Signs: Vital Signs Temp Pulse Resp BP Pulse Ox O2 Del Method O2 Flow Rate 98.2 F 86 16 99/56 L 91 Nasal Cannula 3 11/07/22 05:32 11/07/22 05:32 11/07/22 05:32 11/07/22 05:32 11/07/22 07:56 11/07/22 07:56 11/07/22 07:56 Oxygen Flow Rate (L/min) 3 Oxygen Delivery Method Nasal Cannula Weight: 171 lb 6.369 oz Body Mass Index (BMI) 26.8 Intake & Output: Intake and Output for Last 24 Hours 11/05/22 11/06/22 11/07/22 23:59 23:59 23:59 Intake Total 150 / 150 Output Total 600 / 600 200 / 200 Balance -450 / -450 -200 / -200 Lab / Micro Data Result Diagrams: 11/07/22 05:17 11/07/22 05:17 Labs: Laboratory Results - last 24 hr 11/06/22 10:30: WBC 7.8, RBC 3.74 L, Hgb 12.2, Hct 38.7, MCV 103.5 H, MCH 32.6 H, MCHC 31.5 L, RDW Std Deviation 55.4 H, RDW Coeff of Robert 14.7 H, Plt Count 328, MPV 9.6, Immature Gran % (Auto) 1.500 H, Neut % (Auto) 77.1 H, Lymph % (Auto) 12.1 L, [place] % (Auto) 5.4, Eos % (Auto) 3.1, Baso % (Auto) 0.8, Absolute Neuts (auto) 6.1, Absolute Lymphs (auto) 0.95, Nucleated RBC % 0 11/06/22 10:30: Sodium 139, Potassium 3.7, Chloride 105, Carbon Dioxide 25.0, Anion Gap 9, BUN 17, Creatinine 1.01, Estim Creat Clear Calc 22.39, Est GFR (MDRD) Af Amer 67, Est GFR (MDRD) Non-Af 56 L, BUN/Creatinine Ratio 16.8, Glucose 137 H, Calcium 9.4, Total Bilirubin 0.40, AST 13 L, ALT 13, Alkaline Phosphatase 153 H, Troponin I High Sens 10, Total Protein 6.5, Albumin 3.1 L, Globulin 3.4, Albumin/Globulin Ratio 0.9 11/06/22 10:30: B-Natriuretic Peptide 263.0 H 11/06/22 12:05: Urine Color Yellow, Urine Clarity Clear, Urine pH 5.0, Ur Specific [place] 1.030, Urine Protein 30 H, Urine Glucose (UA) Normal, Urine Ketones 5 H, Urine Occult Blood 25 H, Urine Nitrite Negative, Urine Bilirubin Negative, Urine Urobilinogen 1 H, Ur Leukocyte Esterase 25 H, Urine RBC 0-5 SEEN, Urine WBC 0-5 SEEN, Ur Squamous Epith Cells 0 SEEN, Calcium Oxalate Crystal 2+, Urine Bacteria 0 SEEN, Urine Mucus 0 SEEN 11/06/22 14:00: Blood Type A POSITIVE, Antibody Screen NEGATIVE 11/06/22 15:23: Hemoglobin A1c 5.3 11/07/22 05:17: WBC 7.5, RBC 3.51 L, Hgb 11.3 L, Hct 36.5 L, MCV 104.0 H, MCH 32.2 H, MCHC 31.0 L, RDW Std Deviation 56.2 H, RDW Coeff of Robert 14.6, Plt Count 264, MPV 9.6, Immature Gran % (Auto) 0.500, Neut % (Auto) 74.6 H, Lymph % (Auto) 12.9 L, [place] % (Auto) 7.5, Eos % (Auto) 4.0, Baso % (Auto) 0.5, Absolute Neuts (auto) 5.6, Absolute Lymphs (auto) 0.97, Nucleated RBC % 0 11/07/22 05:17: Sodium 140, Potassium 3.7, Chloride 106, Carbon Dioxide 29.0, Anion Gap 5, BUN 14, Creatinine 0.61, Estim Creat Clear Calc 40.72, Est GFR (MDRD) Af Amer 120, Est GFR (MDRD) Non-Af 100, BUN/Creatinine Ratio 23.0 H, Glucose 108 H, Calcium 8.6, Phosphorus 3.7, Magnesium 2.2, Total Bilirubin 0.40, AST 20, ALT 19, Alkaline Phosphatase 146 H, Total Protein 5.8 L, Albumin 2.6 L, Globulin 3.2, Albumin/Globulin Ratio 0.8 L, TSH 1.99 11/07/22 05:17: APTT 32.5 Rhythm Strip Rhythm Strip: A-fib Cardiology Labs/Tests 11/06/22 10:30: WBC 7.8, RBC 3.74 L, Hgb 12.2, Hct 38.7, MCV 103.5 H, MCH 32.6 H, MCHC 31.5 L, Plt Count 328, MPV 9.6, Immature Gran % (Auto) 1.500 H, Neut % (Auto) 77.1 H, Lymph % (Auto) 12.1 L, [place] % (Auto) 5.4, Eos % (Auto) 3.1, Baso % (Auto) 0.8, Absolute Neuts (auto) 6.1, Nucleated RBC % 0 11/06/22 10:30: Sodium 139, Potassium 3.7, Chloride 105, Carbon Dioxide 25.0, Anion Gap 9, BUN 17, Creatinine 1.01, Est GFR (MDRD) Af Amer 67, Est GFR (MDRD) Non-Af 56 L, BUN/Creatinine Ratio 16.8, Glucose 137 H, Calcium 9.4, Total Bilirubin 0.40 11/06/22 10:30: B-Natriuretic Peptide 263.0 H 11/06/22 12:05: Urine Color Yellow, Urine Clarity Clear, Urine pH 5.0, Ur Specific [place] 1.030, Urine Protein 30 H, Urine Glucose (UA) Normal, Urine Ketones 5 H, Urine Occult Blood 25 H, Urine Nitrite Negative, Urine Bilirubin Negative, Urine Urobilinogen 1 H, Ur Leukocyte Esterase 25 H, Urine RBC 0-5 SEEN, Urine WBC 0-5 SEEN 11/06/22 15:23: Hemoglobin A1c 5.3 11/07/22 05:17: WBC 7.5, RBC 3.51 L, Hgb 11.3 L, Hct 36.5 L, MCV 104.0 H, MCH 32.2 H, MCHC 31.0 L, Plt Count 264, MPV 9.6, Immature Gran % (Auto) 0.500, Neut % (Auto) 74.6 H, Lymph % (Auto) 12.9 L, [place] % (Auto) 7.5, Eos % (Auto) 4.0, Baso % (Auto) 0.5, Absolute Neuts (auto) 5.6, Nucleated RBC % 0 11/07/22 05:17: Sodium 140, Potassium 3.7, Chloride 106, Carbon Dioxide 29.0, Anion Gap 5, BUN 14, Creatinine 0.61, Est GFR (MDRD) Af Amer 120, Est GFR (MDRD) Non-Af 100, BUN/Creatinine Ratio 23.0 H, Glucose 108 H, Calcium 8.6, Phosphorus 3.7, Magnesium 2.2, Total Bilirubin 0.40 11/07/22 05:17: APTT 32.5 Rhythm: Atrial fibrillation EKG: Atrial fibrillation, left bundle branch block ECHO: EF 25%. Mild to moderate aortic valve stenosis. Mild mitral regurgitation. Stress Test: Cardiac Cath: PCI: CT Surgery: Holter monitor: EPS: PPM: CXR: Chest CT Scan: Radiography Diagnostic Testing: Radiology Impression Brain CT 11/06/22 10:38 IMPRESSION: Moderate cortical and central atrophy. Mild chronic microvascular ischemic change. Mild cerebellar atrophy. Electronically Signed: Brijesh Watkins MD, JD at 11:34 EDT , ADDENDUM: 11/06/22 1145 IMPRESSION: undefined Cervical Spine CT 11/06/22 10:38 IMPRESSION: No evidence of acute cervical spinal fracture or spondylolisthesis. Degenerative and postoperative changes as above. N.B. : The above Results were Read Back by Brijesh Watkins MD, JD to Luis Christina DO, and understanding confirmed on 11/06/2022 11:36:20 (ET). Electronically Signed: Brijesh Watkins MD, JD at 11:37 EDT , ADDENDUM: 11/06/22 1144 IMPRESSION: No evidence of acute cervical spinal fracture or spondylolisthesis. Degenerative and postoperative changes as above. N.B. : The above Results were Read Back by Brijesh Watkins MD, JD to Luis Christina DO, and understanding confirmed on 11/06/2022 11:36:20 (ET). Electronically Signed: Brijesh Watkins MD, JD at 11:37 EDT , Chest X-Ray 11/06/22 10:38 IMPRESSION: Mild fibrosis left base. Mild cardiomegaly. Mildly tortuous descending aorta. Electronically Signed: Brijesh Watkins MD, JD at 11:43 EDT , Hip/Pelvis X-Ray 11/06/22 10:38 IMPRESSION: Left hip fracture as above. Electronically Signed: Brijesh Watkins MD, JD at 11:44 EDT , Shoulder X-Ray 11/06/22 10:38 IMPRESSION: Degenerative changes as above. Electronically Signed: Brijesh Watkins MD, JD at 11:45 EDT , Echocardiogram 11/06/22 13:23 Interpretation Summary Mild concentric left ventricular hypertrophy. Mildly dilated left ventricle. Severe global left ventricular systolic dysfunction. The left ventricular ejection fraction is 25 %. Unable to assess diastolic dysfunction due to arrhythmia. The left atrium is moderately enlarged. Mild (1+) mitral valve insufficiency. Moderate (2+) tricuspid valve insufficiency. Mild to moderate aortic stenosis. Mild-Moderate (1-2+) aortic valve insufficiency. Ordering Physician: Gracy Mendez Referring Physician: Nahomy Bettencourt Performed By: Helen Sargent, HAYLEY, RVT Physical Exam Narrative Appears comfortable. No apparent distress. Heart sounds 1 and 2 noted. Irregularly irregular. 2/6 systolic murmur at apex and base. Chest clear to auscultation bilaterally. Alert, awake. No ankle edema. Assessment & Plan Assessment/Plan (1) Preoperative cardiovascular examination: PLAN: The patient is being contemplated for surgical repair of her hip fracture. She has history of severe LV systolic dysfunction, moderate aortic stenosis and permanent atrial fibrillation. From a cardiovascular standpoint however, she is compensated at present. No signs or symptoms of heart failure. No angina. She is at moderate risk for the proposed procedure. No further cardiac testing or interventions planned at this time. May proceed with surgery. Please avoid major hemodynamic swings during and after anesthesia. Judicious use of volume agents in view of her severe LV systolic dysfunction. (2) Cardiomyopathy: PLAN: Severe LV systolic dysfunction. However clinically euvolemic. Continue her diuretic therapy. Continue beta-blockers. No LISA inhibitors or angiotensin receptor blockers at present in view of borderline blood pressure. (3) Atrial fibrillation: PLAN: Ventricular rate controlled. Continue beta-blockers. As she has severe LV systolic dysfunction, I would recommend weaning off the calcium channel blockers and increasing beta-blockers as tolerated. Patient was previously on Eliquis for anticoagulation. I am not sure why was that stopped. No documentation to that effect available in the chart. She does have history of frequent falls. However I would recommend that if patient goes to an inpatient rehab facility after her surgery, that she be restarted on anticoagulation with close supervision. She may be started on Eliquis 2.5 mg twice daily. (4) Aortic valve stenosis with insufficiency: PLAN: Periodic clinical and echo surveillance. (5) Mitral regurgitation: PLAN: Monitor.
--- NOTE | 2022-11-07 09:10 | PCM.PN.BLA ---
Progress Note Surgery postponed today pending cardiology evaluation due to echocardiogram findings. Plan of care discussed with Dr. Mendez yesterday. We will plan to proceed with left hip hemiarthroplasty tomorrow, likely with my partner Dr. Bone. Clear liquids at midnight, hold 2 hours prior to surgery. Holding anticoagulant day of surgery.
[2022-11-07] MEDS: oxyCODONE 5 MG Tablet 2.5 MG PO ×3 (09:36→18:20)
[2022-11-07] MEDS: Potassium Chloride Oral Tablet 20 MEQ PO ×2 (09:39→16:48)
[2022-11-07] MEDS: DULoxetine Hcl 30 MG Capsule PO (09:40)
[2022-11-07] MEDS: Famotidine 20 MG Tablet 40 MG PO ×2 (09:41→21:43)
[2022-11-07] MEDS: Metoprolol(XL)Succ 25 MG Tablet PO ×2 (09:41→16:42)
[2022-11-07] MEDS: lamoTRIgine 100 MG Tablet PO ×2 (09:41→21:44)
[2022-11-07] MEDS: Cholecalciferol (VIT D3) 25 MCG TABLET (1,000 UNITS) PO (09:42)
[2022-11-07] MEDS: Cyanocobalamin 500 MCG Tablet 1000 MCG PO (09:42)
--- NOTE | 2022-11-07 11:21 | RAD_ITS ---
STUDY: X-RAY - RIGHT HAND REASON FOR EXAM: Female, 82 years old. R thumb pain TECHNIQUE: 3 view(s) of the hand. COMPARISON: None. FINDINGS: Normal radiocarpal articulation. Normal distal radioulnar joint. Normal visualized carpal bones. Normal carpal articulations Normal carpometacarpal articulation of the thumb. Normal second through fifth carpometacarpal joints. Normal metacarpi. There is degenerative arthrosis of the metacarpophalangeal (MCP) joints. Normal interphalangeal joint of the thumb. Normal proximal and distal phalanges of the thumb. There is moderate degenerative arthrosis of the metacarpophalangeal (MCP) joints. There is diffuse moderate articular joint space narrowing of the proximal and distal interphalangeal joints of the second through fifth fingers, but without erosive changes or periarticular soft tissue swelling. Normal phalanges of the second through fifth fingers. The soft tissue structures are unremarkable. No fracture is present. RAD/Hand Min 3 Views IMPRESSION: Degenerative joint disease of the hand, as described above. Electronically Signed: Michael Roth MD at 13:54 EDT ,
[2022-11-07] MEDS: Morphine 2 MG/ML Syringe IV ×3 (11:23→20:14)
--- NOTE | 2022-11-07 12:05 | PCM.PN.HOSP ---
Reason for Visit Reason for Visit: Left hip pain after fall Subjective Subjective No issues overnight. Surgery is planned for a.m. 11/08/2022. Cardiology has cleared and made recommendations for perioperative and postoperative management. Patient is complaining of some left thumb pain which is new. Having ongoing left shoulder pain Objective Data Objective Data Vital Signs: Vital Signs Temp Pulse Resp BP Pulse Ox O2 Del Method O2 Flow Rate 98.1 F 97 20 H 116/82 H 98 Nasal Cannula 2 11/07/22 09:25 11/07/22 09:41 11/07/22 09:25 11/07/22 09:41 11/07/22 09:25 11/07/22 09:25 11/07/22 09:25 Oxygen Flow Rate (L/min) 2 Oxygen Delivery Method Nasal Cannula Weight: 77.745 kg Body Mass Index (BMI) 26.8 Intake & Output: Intake and Output for Last 24 Hours 11/05/22 11/06/22 11/07/22 23:59 23:59 23:59 Intake Total 150 / 150 Output Total 600 / 600 200 / 200 Balance -450 / -450 -200 / -200 Lab / Micro Data Result Diagrams: 11/07/22 05:17 11/07/22 05:17 Labs: Laboratory Results - last 24 hr 11/06/22 12:05: Urine Color Yellow, Urine Clarity Clear, Urine pH 5.0, Ur Specific Blairs 1.030, Urine Protein 30 H, Urine Glucose (UA) Normal, Urine Ketones 5 H, Urine Occult Blood 25 H, Urine Nitrite Negative, Urine Bilirubin Negative, Urine Urobilinogen 1 H, Ur Leukocyte Esterase 25 H, Urine RBC 0-5 SEEN, Urine WBC 0-5 SEEN, Ur Squamous Epith Cells 0 SEEN, Calcium Oxalate Crystal 2+, Urine Bacteria 0 SEEN, Urine Mucus 0 SEEN 11/06/22 14:00: Blood Type A POSITIVE, Antibody Screen NEGATIVE 11/06/22 15:23: Hemoglobin A1c 5.3 11/07/22 05:17: WBC 7.5, RBC 3.51 L, Hgb 11.3 L, Hct 36.5 L, MCV 104.0 H, MCH 32.2 H, MCHC 31.0 L, RDW Std Deviation 56.2 H, RDW Coeff of Robert 14.6, Plt Count 264, MPV 9.6, Immature Gran % (Auto) 0.500, Neut % (Auto) 74.6 H, Lymph % (Auto) 12.9 L, [place] % (Auto) 7.5, Eos % (Auto) 4.0, Baso % (Auto) 0.5, Absolute Neuts (auto) 5.6, Absolute Lymphs (auto) 0.97, Nucleated RBC % 0 11/07/22 05:17: Sodium 140, Potassium 3.7, Chloride 106, Carbon Dioxide 29.0, Anion Gap 5, BUN 14, Creatinine 0.61, Estim Creat Clear Calc 40.72, Est GFR (MDRD) Af Amer 120, Est GFR (MDRD) Non-Af 100, BUN/Creatinine Ratio 23.0 H, Glucose 108 H, Calcium 8.6, Phosphorus 3.7, Magnesium 2.2, Total Bilirubin 0.40, AST 20, ALT 19, Alkaline Phosphatase 146 H, Total Protein 5.8 L, Albumin 2.6 L, Globulin 3.2, Albumin/Globulin Ratio 0.8 L, TSH 1.99 11/07/22 05:17: APTT 32.5 Radiography Diagnostic Testing: Radiology Impression Echocardiogram 11/06/22 13:23 Interpretation Summary Mild concentric left ventricular hypertrophy. Mildly dilated left ventricle. Severe global left ventricular systolic dysfunction. The left ventricular ejection fraction is 25 %. Unable to assess diastolic dysfunction due to arrhythmia. The left atrium is moderately enlarged. Mild (1+) mitral valve insufficiency. Moderate (2+) tricuspid valve insufficiency. Mild to moderate aortic stenosis. Mild-Moderate (1-2+) aortic valve insufficiency. Ordering Physician: Gracy Mendez Referring Physician: Nahomy Bettencourt Performed By: Helen Sargent, RDCS, RVT Rhythm Strip Rhythm Strip: A-fib Physical Exam Const alert, oriented x3, no apparent distress, average body habitus and well nourished Constitutional Narrative: Elderly white female who is alert and oriented x3 but has mild confusion with more detailed conversation, sitting up in bed watching television and finishing breakfast, appears comfortable at this time, nontoxic General Appearance: cooperative HEENT normocephalic, head/scalp atraumatic and moist oral mucous membranes; Negative for hearing grossly normal bilaterally HEENT Narrative: Moderate hearing loss, Mallampati is 2, no thrush Resp normal respiratory effort, no retractions, no use of accessory muscles and clear to auscultation bilaterally Auscultation: Negative for rales, rhonchi or wheezes Cardio regular rate, S1 normal heart sound, S2 normal heart sound, no rub, no gallops and no clicks; Negative for no murmurs Cardio Narrative: Irregularly irregular rhythm, 3 out of 6 systolic murmur GI normal to inspection, nondistended, normoactive bowel sounds, soft to palpation and non-tender Extremity Extremity Narrative: Left lower extremity is shortened and externally rotated, there is no cyanosis or clubbing, limited movement of left shoulder due to pain, less pain with passive movement Neuro oriented x3 and CN's II-XII intact bilaterally Neuro Narrative: Mild confusion but alert and oriented x3, difficulty moving left lower extremity and left upper extremity due to pain but no focal deficits Speech: speech normal Psych affect normal Psych Narrative: Pleasant, appropriate Assessment & Plan Assessment/Plan (1) Fall: (2) Closed left hip fracture: PLAN: Plan Closed left hip fracture -Imaging revealed subcapital fracture of the left hip with superior lateral displacement of the proximal femur with respect to the femoral head -Plan is for hemiarthroplasty tomorrow 11/08/2022 -Continue scheduled Tylenol -Continue as needed low-dose oxycodone and morphine for breakthrough--> low-dose -Continue as needed bowel regimen -Plan is for surgical repair tomorrow -Cardiology has evaluated the patient and made their pre and perioperative recommendations for her management with regards to surgery -PT/OT consultation after surgical repair Fall -Initially reported a syncope by ER but on further questioning does not sound like this was a syncopal episode and was more a matter of balance loss upon bending forward -Patient denied any loss of consciousness -PT/OT consultation -Patient will likely need placement at discharge and has been to the TCU previously -Consult case management/social work for assistance with discharge Left shoulder pain -X-ray negative for fracture -If persistently problem could consider repeat x-ray or CT to rule out occult fracture -Pain is predominantly worse with active movement versus passive -Continue as needed pain medication Left thumb pain -X-rays pending -Continue pain medication as noted above Nonischemic cardiomyopathy/nonobstructive CAD/hypertension -Does not appear to be ischemic based on recent cardiac catheterization done on 06/02/2022 that showed nonobstructive coronary artery disease -Has been following with cardiology for this -Echocardiogram actually shows worsening EF at currently 25%. -Last echo from 05/2022 showed an EF of 35% with moderate segmental systolic dysfunction and mild concentric LVH -Cardiac catheterization was done at this time -We will discontinue diltiazem with intent to stop at discharge per cardiology recommendations -Continue home metoprolol--> and uptitrate as able/needed -Continue home Lasix -Hold aspirin for now but restart after surgery A-fib with RVR -Eliquis was discontinued on 10/05/2022 -Reason is unclear at this time -Patient had been on dig but it looks like this has been discontinued as well -Discontinue diltiazem -Continue home beta-isi and uptitrate as needed Recent pericardial effusion -Was on colchicine -Has been discontinued -Pericardial window done in July of this past year -No pericardial effusion noted on current echocardiogram Aortic stenosis -mild-mod aortic stenosis on echo Seizure disorder -Continue home antiepileptic drugs Neuropathy -Patient on any current medications Alzheimer's type dementia -Mild at this time -Patient is alert and oriented at presentation -Expect some delirium postoperatively and while hospitalized DVT prophylaxis -Start Lovenox -Discussed with orthopedic surgery and they stated they would hold 12 hours prior to surgery -SCDs while Lovenox interrupted -Okay to discontinue SCDs after Lovenox can be reinitiated CODE STATUS -DNR CCA with no intubation Charges/Coding Visit Charges Inpatient E&M: 18726 Subs Hosp L2
[2022-11-07] MEDS: 0.9% Saline Lock 10 ML Syringe IV ×3 (16:47→20:22)
[2022-11-07] MEDS: RisperiDONE 0.5 MG Tablet PO (21:44)
[2022-11-07] MEDS: MELATONIN 3 MG TABLET PO (21:44)
[2022-11-07] MEDS: Heparin Injection (Vial) 5,000 UNIT/ML VIAL 5000 UNIT SC (21:46)
[2022-11-08] VITALS (15 sets, daily range): BP systolic 98–122; BP diastolic 57–91; PULSE 83–110; RESP 16–20; TEMP 36.1–37.8; O2SAT 95–100; BMI 26.8
[2022-11-08] MEDS: Morphine 2 MG/ML Syringe IV (01:10)
[2022-11-08] MEDS: 0.9% Saline Lock 10 ML Syringe IV (01:11)
[2022-11-08] MEDS: oxyCODONE 5 MG Tablet 2.5 MG PO (01:57)
[2022-11-08 05:57] LABS: Absolute Lymphocyte Count 1.26 X10^3/uL (0.83-4.51); Absolute Neutrophil Count 6.3 X10^3/uL (2.0-7.7); Basophil# 0.06 X10^3/uL; Basophil% 0.7 % (0-1); Eosinophil# 0.41 X10^3/uL; Eosinophils% 4.7 % (0-5); Hematocrit 37.3 % (37-47); Hemoglobin 11.7 g/dL (12.0-15.0); Lymphocyte # 1.26 X10^3/ul (0.83-4.51); Lymphocyte % 14.5 % (19-41); Mean Corp Hgb Conc 31.4 g/dL (32-36); Mean Corpuscular Hgb 32.3 pg (27.0-32.0); Mean Platelet Vol. 9.4 fl (6.2-12.0); NRBC Flagged by Analyzer 0 % (0-5); Neutrophil # 6.25 X10^3/uL (2.7-7.7); Neutrophil % 71.8 % (47-70); Platelet Count 265 K/mm3 (150-450); RBC Distribution Width CV 14.3 % (11.6-14.6); RBC Distribution Width SD 55.1 fl (35.1-43.9); Red Blood Count 3.62 M/mm3 (4.2-5.4); White Blood Count 8.7 K/mm3 (4.4-11.0)
[2022-11-08] MEDS: Furosemide 40 MG Tablet PO (06:27)
[2022-11-08] MEDS: Acetaminophen 500 MG Tablet 1000 MG PO ×2 (06:27→21:22)
[2022-11-08 06:29] LABS: Anion Gap 4 (5-15); BUN 15 mg/dL (7-18); BUN/Creat Ratio 22.2 RATIO (10-20); Calcium,Total 9.2 mg/dL (8.5-10.1); Chloride 104 mmol/L (98-107); Creatinine, Serum 0.68 mg/dL (0.55-1.02); EST Glomerular Filtration Rate 88 mL/min (>60); Est Glom Filt Rate - Afr Amer 107 mL/min (>60); Estimated Creatinine Clearance 40.72 ml/min; Glucose 110 mg/dL (74-106); Potassium 4.1 mmol/L (3.5-5.1); Sodium Level 137 mmol/L (136-145)
[2022-11-08 07:45] LABS: Vitamin D,25 Hydroxy 44.8 ng/mL
--- NOTE | 2022-11-08 08:28 | WOUNDNOTE ---
wound photo: right foot
--- NOTE | 2022-11-08 09:39 | PN.HOSP_ITS ---
Reason for Visit Reason for Visit: Diagnoses Nonrheumatic mitral (valve) insufficiency (11/06/22) Nonrheumatic aortic (valve) stenosis with insufficiency (11/06/22) Cardiomyopathy, unspecified (11/06/22) Unspecified atrial fibrillation (11/06/22) Other specific arthropathies, not elsewhere classified, left shoulder (11/06/22) Unspecified rotator cuff tear or rupture of left shoulder, not specified as traumatic (11/06/22) Fracture of unspecified part of neck of left femur, initial encounter for closed fracture (11/06/22) Unspecified fall, initial encounter (11/06/22) Encounter for preprocedural cardiovascular examination (11/06/22) Subjective Subjective No issues overnight. Acknowledges difficulty with memory long predating her admission. Objective Data Objective Data Vital Signs: Vital Signs Temp Pulse Resp BP Pulse Ox O2 Del Method O2 Flow Rate 36.4 C L 98 18 108/66 98 Nasal Cannula 2 11/08/22 06:00 11/08/22 06:00 11/08/22 06:00 11/08/22 06:00 11/08/22 06:00 11/08/22 06:00 11/08/22 06:00 FiO2 2 11/08/22 01:09 Oxygen Flow Rate (L/min) 2 Oxygen Delivery Method Nasal Cannula Weight: 77.745 kg Body Mass Index (BMI) 26.8 Intake & Output: Intake and Output for Last 24 Hours 11/06/22 11/07/22 11/08/22 23:59 23:59 23:59 Intake Total 150 / 150 350 / 350 0 / 0 Output Total 600 / 600 1250 / 1250 250 / 250 Balance -450 / -450 -900 / -900 -250 / -250 Lab / Micro Data Result Diagrams: 11/08/22 05:47 11/08/22 05:47 Labs: Laboratory Results - last 24 hr 11/06/22 10:30: Vitamin D 25-Hydroxy 44.8 11/08/22 05:47: WBC 8.7, RBC 3.62 L, Hgb 11.7 L, Hct 37.3, MCV 103.0 H, MCH 32.3 H, MCHC 31.4 L, RDW Std Deviation 55.1 H, RDW Coeff of Robert 14.3, Plt Count 265, MPV 9.4, Immature Gran % (Auto) 0.300, Neut % (Auto) 71.8 H, Lymph % (Auto) 14.5 L, [place] % (Auto) 8.0, Eos % (Auto) 4.7, Baso % (Auto) 0.7, Absolute Neuts (auto) 6.3, Absolute Lymphs (auto) 1.26, Nucleated RBC % 0 11/08/22 05:47: Sodium 137, Potassium 4.1, Chloride 104, Carbon Dioxide 29.0, Anion Gap 4 L, BUN 15, Creatinine 0.68, Estim Creat Clear Calc 40.72, Est GFR (MDRD) Af Amer 107, Est GFR (MDRD) Non-Af 88, BUN/Creatinine Ratio 22.2 H, Glucose 110 H, Calcium 9.2 Radiography Diagnostic Testing: Radiology Impression Hand X-Ray 11/07/22 11:21 IMPRESSION: Degenerative joint disease of the hand, as described above. Electronically Signed: Michael Roth MD at 13:54 EDT Reading Location ID and State: [facility] / [place] , Service support , Rhythm Strip Rhythm Strip: A-fib Physical Exam Const alert and no apparent distress HEENT head/scalp atraumatic and moist oral mucous membranes Resp normal respiratory effort, no retractions, no use of accessory muscles and clear to auscultation bilaterally Cardio regular rate, regular rhythm, S1 normal heart sound and S2 normal heart sound GI normal to inspection, nondistended, normoactive bowel sounds, soft to palpation, non-tender and non-distended Extremity normal to inspection Assessment & Plan Assessment/Plan (1) Closed left hip fracture: PLAN: Imaging revealed subcapital fracture of the left hip with superior lateral displacement of the proximal femur with respect to the femoral head Hemiarthroplasty planned for 11/08/2022 Pain control Cardiology has evaluated the patient and made their pre and perioperative recommendations for her management with regards to surgery PT/OT consultation after surgical repair (2) Debility: PLAN: Initially reported a syncope by ER but on further questioning does not sound like this was a syncopal episode and was more a matter of balance loss upon bending forward Patient denied any loss of consciousness PT/OT consultation Patient will likely need placement at discharge and has been to the TCU previously Consult case management/social work for assistance with discharge (3) Left shoulder pain: PLAN: X-ray negative for fracture If persistently problem could consider repeat x-ray or CT to rule out occult fracture Pain is predominantly worse with active movement versus passive Continue as needed pain medication (4) Pain of left thumb: PLAN: X-rays negative for fxr Continue pain medication as noted above (5) Cardiomyopathy: PLAN: Nonischemic cardiomyopathy/nonobstructive CAD/hypertension Does not appear to be ischemic based on recent cardiac catheterization done on 06/02/2022 that showed nonobstructive coronary artery disease Has been following with cardiology for this Echocardiogram actually shows worsening EF at currently 25%. -Last echo from 05/2022 showed an EF of 35% with moderate segmental systolic dysfunction and mild concentric LVH -Cardiac catheterization was done at this time We will discontinue diltiazem with intent to stop at discharge per cardiology recommendations Continue home metoprolol--> and uptitrate as able/needed Continue home Lasix Hold aspirin for now but restart after surgery Cleared for surgery by cardiology PLAN: Plan Chronic conditions: * A-fib with RVR-Eliquis was discontinued on 10/05/2022-Reason is unclear at this time-Patient had been on dig but it looks like this has been discontinued as well-Discontinue diltiazem-Continue home beta-isi and uptitrate as needed * Recent pericardial effusion-Was on colchicine-Has been discontinued- Pericardial window done in July of this past year-No pericardial effusion noted on current echocardiogram * Aortic [id number] aortic stenosis on echo * Seizure disorder-Continue home antiepileptic drugs * Neuropathy-Patient on any current medications * Alzheimer's type dementia-Mild at this time-Patient is alert and oriented at presentation-Expect some delirium postoperatively and while hospitalized DVT prophylaxis -Start Lovenox -Discussed with orthopedic surgery and they stated they would hold 12 hours prior to surgery -SCDs while Lovenox interrupted -Okay to discontinue SCDs after Lovenox can be reinitiated CODE STATUS -DNR CCA with no intubation Charges/Coding Visit Charges Inpatient E&M: 49155 Subs Hosp L2
[2022-11-08] MEDS: Metoprolol(XL)Succ 50 MG Tablet PO (10:35)
--- NOTE | 2022-11-08 11:35 | CASEMGMT ---
RN CM into pt room for assessment, pt has been picked up for OR and is out of the room. Assessment to be completed at a later time.
[2022-11-08] MEDS: 0.9% Normal Saline 1,000 ML 15 ML IV (12:13)
--- NOTE | 2022-11-08 13:00 | HIP_PTH ---
PATIENT: MAGDY MIRAMONTES LOC: [facility] U#:[id number] AGE/SX: 82/F ROOM: [facility] [place]11/06/[address]: Dr. Steve Tesfaye DO : 1940 BED: 1 DIS: 11/09/2022 SPEC #: [id number] RECD: 11/08/22 15:41 STATUS: DONNA REQ #: [id number] ABHISHEK: 11/08/22 13:[address]: Mehrdad Bone DEPT: SURGICAL PATHOLOGY RECD BY: María Reeder ENTERED: 11/09/22 10:06 SP TYPE: TOTAL HIP OTHR DR: MD Dr. Steve Hernandes DO Dr. Hannah Miedel, MD Dr. Kathryn Lee, DO Dr. Nicholas Spittle, Tissues: Hip, NOS Procedures: Decalcification bone/plaque Surgery Specimen Level IV Comments: @ Ordering doctor for DEC edited from to @ by DANNIELLE at 11/09/22 1344 @ Ordering doctor for SUIV edited from to @ by DANNIELLE at 11/09/22 1344 @ Submitting doctor edited from to @ by DANNIELLE at 11/09/22 134 HEADER OPERATION: Left hip hemiarthroplasty PRE-OP DIAGNOSIS: Closed left hip fracture TISSUE SUBMITTED: Left hip bone and tissue MICROSCOPIC DIAGNOSIS Left hip bone and tissue, total hip replacement/resection: Femoral head and detached pieces of bone with focal area of hemorrhage, clinically closed left hip fracture. Fragments of fibroadipose tissue, fibroconnective tissue and skeletal muscle tissue. SJ:kyle 11/12/2022 MICROSCOPIC DESCRIPTION Slides are reviewed. GROSS DESCRIPTION Received is one container labeled with the patient's name and designated left hip bone and tissue. The specimen consists of a ennis femoral head measuring 4.5 x 4.5 x 4.0 cm. The articular surface is smooth. Resection margin is irregular and hemorrhagic. Also present in the specimen container are multiple detached pieces of bone measuring in aggregate 6.5 x 6.0 x 2.5 cm. Also present in the container are pieces of soft tissue measuring in aggregate 3.0 x 3.0 x 1.0 cm. Ring Spinner sections are submitted in three cassettes as follows: 1 - soft tissue, 2 - detached pieces of bone, 3 - femoral head. Cassettes 2 & 3 are submitted after decalcification. / STEVIE:kyle 11/09/2022 TC:5 CPT: 39725, 72996
[2022-11-08] MEDS: Cefazolin 2 GM in 0.9% Normal Saline 100 ML IV (14:22)
[2022-11-08] MEDS: TXA 1000mg in NS100 100ml (IVPB at Incision) 660 MG IV (15:10)
--- NOTE | 2022-11-08 15:27 | OP.PCM_ITS ---
Report of Operation Date of Procedure: 11/08/22 Pre-Operative Diagnosis: Left subcapital hip fracture Post-Operative Diagnosis: same Surgery/Procedure Performed:: Hemiarthroplasty left hip Surgeon: Mehrdad Bone english professor: Flavio Castro Type of Anesthesia: General Anesthesiologist: Julio Calles Estimated Blood Loss (mL): 50 cc Fluids Replaced: 1000 cc crystalloid Admit VTE Documentation VTE Present on Admission: No VTE Mechan Device Prophylaxis: SCD's and Thigh High SACHA Hose VTE Pharm Prophylaxis ordered?: Yes
[2022-11-08] MEDS: JPS (Morphine 10mg/ml) OPERA.SITE (15:28)
[2022-11-08] MEDS: TXA 1000mg in NS100 100ml (IVPB at Closure) 660 MG IV (15:30)
--- NOTE | 2022-11-08 16:02 | RAD_ITS ---
STUDY: X-RAY - PELVIS AND LEFT HIP REASON FOR EXAM: Female, 82 years old. Post Op -- AP both hips on single axel/lateral of op hip PACU TECHNIQUE: 2 views of the pelvis and hip. COMPARISON: November 06, 2022 FINDINGS: Hip prosthesis has been placed in anatomic alignment and position. Surgical jerry are seen in the soft tissues as well as residual gas at the operative site. RAD/Hip Min 2 Views (Portable) IMPRESSION: Status post left hip prosthesis placement Electronically Signed: Blu Larsen MD at 16:24 EDT ,
[2022-11-08] MEDS: Potassium Chloride Oral Tablet 20 MEQ PO (17:13)
[2022-11-08] MEDS: Nystatin Powder 15gm Bottle 1 APPLIC TOPICAL (21:18)
[2022-11-08] MEDS: MELATONIN 3 MG TABLET PO (21:21)
[2022-11-08] MEDS: RisperiDONE 0.5 MG Tablet PO (21:21)
[2022-11-08] MEDS: Aspirin 81 MG TAB.CHEW PO (21:21)
[2022-11-08] MEDS: lamoTRIgine 100 MG Tablet PO (21:21)
[2022-11-08] MEDS: Senna/Docusate Sodium 1 Tablet 2 TABLET PO (21:22)
[2022-11-08] MEDS: Famotidine 20 MG Tablet 40 MG PO (21:22)
[2022-11-08] MEDS: Cefazolin 1 GM/50 ML BAG IV (23:24)
[2022-11-09] VITALS (14 sets, daily range): BP systolic 85–108; BP diastolic 57–70; PULSE 88–103; RESP 16–18; TEMP 36.4–37.2; O2SAT 87–100; BMI 26.8
[2022-11-09] MEDS: Acetaminophen 500 MG Tablet 1000 MG PO ×2 (05:41→13:11)
[2022-11-09] MEDS: Cefazolin 1 GM/50 ML BAG IV (05:57)
[2022-11-09 06:12] LABS: Hematocrit 32.9 % (37-47); Hemoglobin 10.1 g/dL (12.0-15.0); Mean Corp Hgb Conc 30.7 g/dL (32-36); Mean Corpuscular Volume 104.1 fL (81-99); Mean Platelet Vol. 9.5 fl (6.2-12.0); Platelet Count 221 K/mm3 (150-450); RBC Distribution Width CV 14.4 % (11.6-14.6); RBC Distribution Width SD 55.4 fl (35.1-43.9); Red Blood Count 3.16 M/mm3 (4.2-5.4); White Blood Count 11.4 K/mm3 (4.4-11.0)
[2022-11-09 06:52] LABS: Anion Gap 6 (5-15); BUN 16 mg/dL (7-18); BUN/Creat Ratio 20.7 RATIO (10-20); Calcium,Total 8.9 mg/dL (8.5-10.1); Chloride 104 mmol/L (98-107); Creatinine, Serum 0.77 mg/dL (0.55-1.02); EST Glomerular Filtration Rate 76 mL/min (>60); Est Glom Filt Rate - Afr Amer 92 mL/min (>60); Estimated Creatinine Clearance 40.72 ml/min; Glucose 120 mg/dL (74-106); Potassium 4.3 mmol/L (3.5-5.1); Sodium Level 133 mmol/L (136-145)
--- NOTE | 2022-11-09 08:17 | PCM.PN.HOSP ---
Reason for Visit Reason for Visit: Diagnoses Nonrheumatic mitral (valve) insufficiency (11/06/22) Nonrheumatic aortic (valve) stenosis with insufficiency (11/06/22) Cardiomyopathy, unspecified (11/06/22) Unspecified atrial fibrillation (11/06/22) Other specific arthropathies, not elsewhere classified, left shoulder (11/06/22) Pain in left shoulder (11/06/22) Unspecified rotator cuff tear or rupture of left shoulder, not specified as traumatic (11/06/22) Pain in left finger(s) (11/06/22) Other malaise (11/06/22) Fracture of unspecified part of neck of left femur, initial encounter for closed fracture (11/06/22) Unspecified fall, initial encounter (11/06/22) Encounter for preprocedural cardiovascular examination (11/06/22) Subjective Subjective Confusion overnight. Objective Data Objective Data Vital Signs: Vital Signs Temp Pulse Resp BP Pulse Ox O2 Del Method O2 Flow Rate 36.6 C 97 18 89/64 L 97 Nasal Cannula 2 11/09/22 07:32 11/09/22 07:32 11/09/22 07:32 11/09/22 07:32 11/09/22 07:32 11/09/22 07:32 11/09/22 07:32 FiO2 2 11/08/22 01:09 Oxygen Flow Rate (L/min) 2 Oxygen Delivery Method Nasal Cannula Weight: 77.745 kg Body Mass Index (BMI) 26.8 Intake & Output: Intake and Output for Last 24 Hours 11/07/22 11/08/22 11/09/22 23:59 23:59 23:59 Intake Total 350 / 350 780 / 780 300 / 300 Output Total 1250 / 1250 1200 / 1200 250 / 250 Balance -900 / -900 -420 / -420 50 / 50 Lab / Micro Data Result Diagrams: 11/09/22 06:00 11/09/22 06:00 Labs: Laboratory Results - last 24 hr 11/09/22 06:00: WBC 11.4 H, RBC 3.16 L, Hgb 10.1 L, Hct 32.9 L, MCV 104.1 H, MCH 32.0, MCHC 30.7 L, RDW Std Deviation 55.4 H, RDW Coeff of Robert 14.4, Plt Count 221, MPV 9.5 11/09/22 06:00: Sodium 133 L, Potassium 4.3, Chloride 104, Carbon Dioxide 23.0, Anion Gap 6, BUN 16, Creatinine 0.77, Estim Creat Clear Calc 40.72, Est GFR (MDRD) Af Amer 92, Est GFR (MDRD) Non-Af 76, BUN/Creatinine Ratio 20.7 H, Glucose 120 H, Calcium 8.9 Radiography Diagnostic Testing: Radiology Impression Hip X-Ray 11/08/22 16:02 IMPRESSION: Status post left hip prosthesis placement Electronically Signed: Blu Larsen MD at 16:24 EDT , Rhythm Strip Rhythm Strip: A-fib Physical Exam Const alert and no apparent distress HEENT head/scalp atraumatic Resp normal respiratory effort, no retractions, no use of accessory muscles and clear to auscultation bilaterally Cardio regular rate, regular rhythm, S1 normal heart sound and S2 normal heart sound GI normal to inspection, nondistended, normoactive bowel sounds, soft to palpation, non-tender and non-distended Extremity normal to inspection Assessment & Plan Assessment/Plan (1) Closed left hip fracture: PLAN: Imaging revealed subcapital fracture of the left hip with superior lateral displacement of the proximal femur with respect to the femoral head Hemiarthroplasty on 11/08/2022 Pain control Cardiology has evaluated the patient and made their pre and perioperative recommendations for her management with regards to surgery PT/OT consultation after surgical repair Follow up with ortho as outpt. (2) Debility: PLAN: Initially reported a syncope by ER but on further questioning does not sound like this was a syncopal episode and was more a matter of balance loss upon bending forward Patient denied any loss of consciousness PT/OT consultation Patient will likely need placement at discharge and has been to the TCU previously Consult case management/social work for assistance with discharge (3) Left shoulder pain: PLAN: X-ray negative for fracture If persistently problem could consider repeat x-ray or CT to rule out occult fracture Pain is predominantly worse with active movement versus passive Continue as needed pain medication (4) Pain of left thumb: PLAN: X-rays negative for fxr Continue pain medication as noted above (5) Cardiomyopathy: PLAN: Nonischemic cardiomyopathy/nonobstructive CAD/hypertension Does not appear to be ischemic based on recent cardiac catheterization done on 06/02/2022 that showed nonobstructive coronary artery disease Has been following with cardiology for this Echocardiogram actually shows worsening EF at currently 25%. -Last echo from 05/2022 showed an EF of 35% with moderate segmental systolic dysfunction and mild concentric LVH -Cardiac catheterization was done at this time We will discontinue diltiazem with intent to stop at discharge per cardiology recommendations Continue home metoprolol--> and uptitrate as able/needed Continue home Lasix ASA Cleared for surgery by cardiology PLAN: Plan Chronic conditions: A-fib with RVR-Eliquis was discontinued on 10/05/2022-Reason is unclear at this time-Patient had been on dig but it looks like this has been discontinued as well-Discontinue diltiazem-Continue home beta-isi and uptitrate as needed Recent pericardial effusion-Was on colchicine-Has been discontinued-Pericardial window done in July of this past year-No pericardial effusion noted on current echocardiogram Aortic [id number]-uuub-eik aortic stenosis on echo Seizure disorder-Continue home antiepileptic drugs Neuropathy-Patient on any current medications Alzheimer's type dementia-Mild at this time-Patient is alert and oriented at presentation-Expect some delirium postoperatively and while hospitalized DVT prophylaxis ASA BID CODE STATUS -DNR CCA with no intubation Disposition: to SNF pending approval. Charges/Coding Visit Charges Inpatient E&M: 60486 Subs Hosp L2
[2022-11-09] MEDS: Potassium Chloride Oral Tablet 20 MEQ PO (08:25)
[2022-11-09] MEDS: Aspirin 81 MG TAB.CHEW PO (08:25)
--- NOTE | 2022-11-09 09:23 | CASEMGMT ---
Social Work Per Dr. Tesfaye patient will need placement. Dr. Tesfaye and medical team recommend speaking with patient spouse about placement as patient is confused. Telephone call to patient spouse, Kit. Phone line appears to be busy. Will attempt to call again later. PLAN: SNF placement Social Work to continue to follow. Jose C MAURICIO, [place]
--- NOTE | 2022-11-09 10:04 | CASEMGMT ---
Social Work Telephone call to patient spouse, Kit. Introduced self and bilingual social worker role. Kit agreeable to speak with this bilingual social worker. This bilingual social worker confirmed demographic information. PCP: Dr. Nahomy Gonzalez Specialist: Dr. Hernandes. Patient has been seeing Dr. Hernandes weekly for a wound on patient foot. Patient spouse has been changing the dressing daily. Preferred Pharmacy: [facility], [place] Insurance: Medicare with secondary and prescription benefit. LNOK: Patient spouse, Kit Advanced directives/Living Will: Patient has both documents and they are on-file. Transportation: [place] provides all transportation. DME/HHC/SNF: Patient active with [facility] for PT/OT/SN. Patient with history of SNF stay. Patient has stayed on TCU and [facility] in the past. Patient has roughly 30 more skilled days left, due to recent SNF stays without a 60 day break. This bilingual social worker broached topic of discharge plan. Lyle agrees with recommendation for patient to transition to a custodial facility for rehabilitation and strengthening. Lyle requesting for referral to be made to the Transitional Care Unit and is declining a list of facilities that are local to patient geographical region. Lyle denies any further questions. Active support and listening provided. Telephone call to Jen. Lluvia RAMOS to review case and get back to this bilingual social worker. PLAN: TCU, pending acceptance. Jose C MAURICIO, [place]
[2022-11-09] MEDS: lamoTRIgine 100 MG Tablet PO (10:21)
[2022-11-09] MEDS: Senna/Docusate Sodium 1 Tablet 2 TABLET PO (10:21)
[2022-11-09] MEDS: Cholecalciferol (VIT D3) 25 MCG TABLET (1,000 UNITS) PO (10:21)
[2022-11-09] MEDS: Cyanocobalamin 500 MCG Tablet 1000 MCG PO (10:21)
[2022-11-09] MEDS: Famotidine 20 MG Tablet 40 MG PO (10:22)
[2022-11-09] MEDS: DULoxetine Hcl 30 MG Capsule PO (10:22)
[2022-11-09] MEDS: Metoprolol(XL)Succ 50 MG Tablet PO (10:22)
[2022-11-09] MEDS: Nystatin Powder 15gm Bottle 1 APPLIC TOPICAL (10:22)
[2022-11-09] MEDS: Menthol/Lanolin/Calamine/Znox 113 GM Tube 1 APPLIC TOPICAL (10:23)
--- NOTE | 2022-11-09 12:55 | CASEMGMT ---
Social Work Per TCU, Lluvia. Patient has been accepted to TCU and can admit today. This social media marketing specialist updated physician and nursing staff. PLAN: TCU, pending discharge. Jose C MAURICIO, [place]
[2022-11-09] MEDS: traMADol 50 MG Tablet PO (13:10)
[2022-11-09] MEDS: Furosemide 40 MG Tablet PO (13:12)
--- NOTE | 2022-11-09 14:17 | TREXTCAR_ITS ---
Diet Diet Order/Speech Therapy: 11/09/22 04:25 Diet: Cardiac - Heart Healthy Is pt able to select menu?: No Routine Orders/Code Status Code Status: DNRCC-A (no intubation) Wound(s) rt foot: Wound Type: Neuropathic/Diabetic Foot Ulcer Dressing Change: betadine with dry dressing cleft: Wound Type: Abrasion LEFT HIP: Wound Type: Surgical Incision abdominal fold: Wound Type: redness Therapies Weight Bearing: Weight bearing as tolerated Extremity Affected:: Left Lower Physical Therapy: Eval and Treat Occupational Therapy: Eval and Treat Problem/Diagnosis (1) Closed left hip fracture: Status: Acute Code(s): S72.002A - Fracture of unspecified part of neck of left femur, initial encounter for closed fracture Plan: Imaging revealed subcapital fracture of the left hip with superior lateral displacement of the proximal femur with respect to the femoral head Hemiarthroplasty on 11/08/2022 Pain control Cardiology has evaluated the patient and made their pre and perioperative recommendations for her management with regards to surgery PT/OT consultation after surgical repair Follow up with ortho as outpt. (2) Debility: Status: Acute Code(s): R53.81 - Other malaise Plan: Initially reported a syncope by ER but on further questioning does not sound like this was a syncopal episode and was more a matter of balance loss upon bending forward Patient denied any loss of consciousness PT/OT consultation Patient will likely need placement at discharge and has been to the TCU previously Consult case management/social work for assistance with discharge (3) Left shoulder pain: Status: Acute Code(s): M25.512 - Pain in left shoulder Plan: X-ray negative for fracture If persistently problem could consider repeat x-ray or CT to rule out occult fracture Pain is predominantly worse with active movement versus passive Continue as needed pain medication (4) Pain of left thumb: Status: Acute Code(s): M79.645 - Pain in left finger(s) Plan: X-rays negative for fxr Continue pain medication as noted above (5) Cardiomyopathy: Status: Acute Code(s): I42.9 - Cardiomyopathy, unspecified Plan: Nonischemic cardiomyopathy/nonobstructive CAD/hypertension Does not appear to be ischemic based on recent cardiac catheterization done on 06/02/2022 that showed nonobstructive coronary artery disease Has been following with cardiology for this Echocardiogram actually shows worsening EF at currently 25%. -Last echo from 05/2022 showed an EF of 35% with moderate segmental systolic dysfunction and mild concentric LVH -Cardiac catheterization was done at this time We will discontinue diltiazem with intent to stop at discharge per cardiology recommendations Continue home metoprolol--> and uptitrate as able/needed Continue home Lasix ASA Cleared for surgery by cardiology Plan Chronic conditions: * A-fib with RVR-Eliquis was discontinued on 10/05/2022-Reason is unclear at this time-Patient had been on dig but it looks like this has been discontinued as well-Discontinue diltiazem-Continue home beta-isi and uptitrate as needed * Recent pericardial effusion-Was on colchicine-Has been discontinued- Pericardial window done in July of this past year-No pericardial effusion noted on current echocardiogram * Aortic [id number]-ztbp-[id number] aortic stenosis on echo * Seizure disorder-Continue home antiepileptic drugs * Neuropathy-Patient on any current medications * Alzheimer's type dementia-Mild at this time-Patient is alert and oriented at presentation-Expect some delirium postoperatively and while hospitalized DVT prophylaxis ASA BID CODE STATUS -DNR CCA with no intubation Disposition: to SNF pending approval. Allergies/Procedures Done in Hospital Allergies bacitracin [From Neosporin ([id number]-[id number])] Allergy (Verified 08/29/22 13:54) Rash SWOLLEN, ITCHING bacitracin zinc [From Neosporin ([id number]-[id number])] Allergy (Verified 08/29/22 13:54) Rash SWOLLEN, ITCHING levetiracetam Allergy (Verified 08/29/22 13:54) Other neomycin sulfate [From Neosporin (qid-cvx-[id number])] Allergy (Verified 08/29/22 13:54) Rash SWOLLEN, ITCHING nickel Allergy (Verified 08/29/22 13:54) Other polymyxin B [From Neosporin (hwa-plr-bshza)] Allergy (Verified 08/29/22 13:54) Rash SWOLLEN, ITCHING sulfamethoxazole [From Bactrim] Allergy (Verified 08/29/22 13:54) Itching trimethoprim [From Bactrim] Allergy (Verified 08/29/22 13:54) Itching codeine Adverse Reaction (Verified 08/29/22 13:54) Nausea milk Adverse Reaction (Verified 08/29/22 13:54) Nausea/Vom/Diarrhea Procedures: - (left hip hemiarthoplasty) Type of Care/Length of Stay Estimated LOS: Convalescent Care Less Than 30 days Type of Care Needed: Skilled Rehab Potential: Good Prognosis: Good Additional Orders/Day of Discharge Day of Discharge: 11/09/22 Discharge Plan Admission Admit Date/Time: 11/06/22 12:21 Primary Reason for Your Visit: left hip fracture Attending Provider: Steve Tesfaye Primary Care Provider: Nahomy Bettencourt Consulting Providers: Rob Boles ; Vanessa Wynn ; Gracy Mendez Discharge Orders/Prescriptions Prescriptions: New aspirin 81 mg Tablet,Chewable 81 mg PO BIDCM Qty: 60 0RF tramadol 50 mg Tablet 50 mg PO Q6H PRN PRN (Reason: Pain Score 4-10) 3 Days Qty: 12 0RF nystatin [Nyamyc] 100,000 unit/gram Powder 1 applic topical BID Qty: 0 0RF Protocol: *Topical Application Instructions APPLICATION INSTRUCTIONS: ABD FOLDS Continued duloxetine 30 mg capsule,delayed release(DR/EC) 30 mg PO DAILY [facility] 10 billion cell -200 mg capsule 1 cap PO DAILY PRN (Reason: [facility]) furosemide 40 mg tablet 40 mg PO BID Rx Instructions: AM AND 1400 famotidine 40 mg tablet 40 mg PO BID melatonin 3 mg tablet 3 mg PO HS cyanocobalamin (vitamin B-12) [Vitamin B-12] 1,000 mcg tablet 1,000 mcg PO DAILY nitroglycerin 0.4 mg Tablet, Sublingual 0.4 mg sublingual Q5M PRN (Reason: Cardiac/Chest Pain) Qty: 0 0RF diltiazem HCl [Cartia XT] 120 mg capsule,extended release 24hr 120 mg PO BID metoprolol succinate 25 mg tablet extended release 24 hr 25 mg PO DAILY acetaminophen 500 mg Tablet 1,000 mg PO Q6H PRN PRN (Reason: Pain Score 1-10) Qty: 0 0RF potassium chloride [Klor-Con M20] 20 mEq Tablet,Er Particles/Crystals 20 meq PO BIDCM 30 Days Qty: 60 0RF lamotrigine 100 mg Tablet 100 mg PO BID 30 Days Qty: 60 0RF cholecalciferol (vitamin D3) [Vitamin D3] 25 mcg (1,000 unit) Tablet 25 mcg PO DAILY Held aspirin 81 mg Capsule 81 mg PO DAILY Hold Instructions: Resume on 12/09/22. Referrals / Follow Up: [facility] [Provider Group] - 01/04/23 2:00 pm Nahomy Bettencourt MD [Primary Care Provider] - Within 2 Weeks Jimenez Wing MD [Non-Staff -Ordering Privileges] - 12/28/22 10:00 am Disposition Disposition (needs filled in before D/C Order can be placed): [facility] Facility
--- NOTE | 2022-11-09 14:25 | DS.PCM_ITS ---
Providers Date of Admission: 11/06/22 Primary Care Physician: Dr. Nahomy Bettencourt MD Consultations 11/06/22 13:23 Consult: Orthopedics Routine Consulting Provider: Rob Boles Reason for Consult: Left hip fracture EMERGENT Consult: No MD Notified: Yes Date Notified: 11/06/22 Time Notified: 12:26 Method of Notification: ED Physician Initiated 11/06/22 15:05 Consult: Cardiology Routine Consulting Provider: Vanessa Wynn Reason for Consult: Cardiac clearance for hip surgery EMERGENT Consult: No MD Notified: Yes Date Notified: 11/06/22 Time Notified: 15:05 Method of Notification: Text 11/07/22 11:22 Consult: Onc/Wound/dragline mechanic Routine Comment: Reason for Consult:: R Foot wound 11/08/22 15:59 Consult: Onc/Wound/dragline mechanic Routine Comment: SACRAL WOUND Reason for Consult:: RIGHT BUTTOX Reason For Visit: L HFRACTURE Diagnosis Discharge Diagnosis (1) Closed left hip fracture: Status: Acute Code(s): S72.002A - Fracture of unspecified part of neck of left femur, initial encounter for closed fracture Plan: Imaging revealed subcapital fracture of the left hip with superior lateral displacement of the proximal femur with respect to the femoral head Hemiarthroplasty on 11/08/2022 Pain control Cardiology has evaluated the patient and made their pre and perioperative recommendations for her management with regards to surgery PT/OT consultation after surgical repair Follow up with ortho as outpt. (2) Debility: Status: Acute Code(s): R53.81 - Other malaise Plan: Initially reported a syncope by ER but on further questioning does not sound like this was a syncopal episode and was more a matter of balance loss upon bending forward Patient denied any loss of consciousness PT/OT consultation Patient will likely need placement at discharge and has been to the TCU previously Consult case management/social work for assistance with discharge (3) Left shoulder pain: Status: Acute Code(s): M25.512 - Pain in left shoulder Plan: X-ray negative for fracture If persistently problem could consider repeat x-ray or CT to rule out occult fracture Pain is predominantly worse with active movement versus passive Continue as needed pain medication (4) Pain of left thumb: Status: Acute Code(s): M79.645 - Pain in left finger(s) Plan: X-rays negative for fxr Continue pain medication as noted above (5) Cardiomyopathy: Status: Acute Code(s): I42.9 - Cardiomyopathy, unspecified Plan: Nonischemic cardiomyopathy/nonobstructive CAD/hypertension Does not appear to be ischemic based on recent cardiac catheterization done on 06/02/2022 that showed nonobstructive coronary artery disease Has been following with cardiology for this Echocardiogram actually shows worsening EF at currently 25%. -Last echo from 05/2022 showed an EF of 35% with moderate segmental systolic dysfunction and mild concentric LVH -Cardiac catheterization was done at this time We will discontinue diltiazem with intent to stop at discharge per cardiology recommendations Continue home metoprolol--> and uptitrate as able/needed Continue home Lasix ASA Cleared for surgery by cardiology Plan Chronic conditions: * A-fib with RVR-Eliquis was discontinued on 10/05/2022-Reason is unclear at this time-Patient had been on dig but it looks like this has been discontinued as well-Discontinue diltiazem-Continue home beta-isi and uptitrate as needed * Recent pericardial effusion-Was on colchicine-Has been discontinued- Pericardial window done in July of this past year-No pericardial effusion noted on current echocardiogram * Aortic ojpqwqrx-hbjw-wcz aortic stenosis on echo * Seizure disorder-Continue home antiepileptic drugs * Neuropathy-Patient on any current medications * Alzheimer's type dementia-Mild at this time-Patient is alert and oriented at presentation-Expect some delirium postoperatively and while hospitalized DVT prophylaxis ASA BID CODE STATUS -DNR CCA with no intubation Disposition: to SNF Medications at Discharge Home Medications duloxetine 30 mg capsule,delayed release 30 mg PO DAILY NEUROPATHY 09/22/20 nitroglycerin 0.4 mg sublingual tablet 0.4 mg sublingual Q5M PRN Cardiac/Chest Pain #0 tabs 06/11/22 Lactobacillus rhamnosus GG 10 billion cell-inulin 200 mg capsule ([facility]) 1 cap PO DAILY PRN [facility] 08/10/22 cyanocobalamin (vitamin B-12) 1,000 mcg tablet (Vitamin B-12) 1,000 mcg PO DAILY supplement 08/10/22 famotidine 40 mg tablet 40 mg PO BID stomach 08/10/22 furosemide 40 mg tablet 40 mg PO BID Diuretic 08/10/22 melatonin 3 mg tablet 3 mg PO HS sleep 08/10/22 diltiazem HCl 120 mg capsule,extended release 24 hr (Cartia XT) 120 mg PO BID heart 08/29/22 metoprolol succinate 25 mg tablet,extended release 24 hr 25 mg PO DAILY blood pressure 08/30/22 acetaminophen 500 mg tablet 1,000 mg PO Q6H PRN PRN Pain Score 1-10 #0 tabs 09/17/22 lamotrigine 100 mg tablet 100 mg PO BID 30 days #60 tabs 09/17/22 potassium chloride 20 mEq tablet,extended release(part/cryst) (Klor-Con M) 20 meq PO BIDCM 30 days #60 tabs 09/17/22 aspirin 81 mg capsule 81 mg PO DAILY 11/06/22 cholecalciferol (vitamin D3) 25 mcg (1,000 unit) tablet (Vitamin D3) 25 mcg PO DAILY 11/06/22 aspirin 81 mg chewable tablet 81 mg PO BIDCM #60 tabs 11/09/22 nystatin 100,000 unit/gram topical powder (Nyamyc) 1 applic topical BID #0 grams 11/09/22 tramadol 50 mg tablet 50 mg PO Q6H PRN PRN Pain Score 4-10 3 days #12 tabs 11/09/22 Hospital Course Operations - (left hip hemiarthroplasty) Summary of Care Provided Minutes Spent on Discharge: 32 Weight / BMI Weight Weight: 77.745 kg Body Mass Index (BMI) 26.8 ABG / Lab / Microbiology Data Result Diagrams: 11/09/22 06:00 11/09/22 06:00 Laboratory: Laboratory Results - last 24 hr 11/09/22 06:00: WBC 11.4 H, RBC 3.16 L, Hgb 10.1 L, Hct 32.9 L, MCV 104.1 H, MCH 32.0, MCHC 30.7 L, RDW Std Deviation 55.4 H, RDW Coeff of Robert 14.4, Plt Count 221, MPV 9.5 11/09/22 06:00: Sodium 133 L, Potassium 4.3, Chloride 104, Carbon Dioxide 23.0, Anion Gap 6, BUN 16, Creatinine 0.77, Estim Creat Clear Calc 40.72, Est GFR (MDRD) Af Amer 92, Est GFR (MDRD) Non-Af 76, BUN/Creatinine Ratio 20.7 H, Glucose 120 H, Calcium 8.9 Radiography Diagnostic Testing: Radiology Impression Hip X-Ray 11/08/22 16:02 IMPRESSION: Status post left hip prosthesis placement Electronically Signed: Blu Larsen MD at 16:24 EDT Reading Location ID and State: [address] [place] [address] , Service support , Meaningful Use Info Meaningful Use Diagnoses (Choose all that apply): None applicable Discharge Plan Admission Admit Date/Time: 11/06/22 12:21 Primary Reason for Your Visit: left hip fracture Attending Provider: Steve Tesfaye Primary Care Provider: Nahomy Bettencourt Consulting Providers: Rob Boles ; Vanessa Wynn ; Gracy Mendez Discharge Orders/Prescriptions Prescriptions: New aspirin 81 mg Tablet,Chewable 81 mg PO BIDCM Qty: 60 0RF tramadol 50 mg Tablet 50 mg PO Q6H PRN PRN (Reason: Pain Score 4-10) 3 Days Qty: 12 0RF nystatin [Nyamyc] 100,000 unit/gram Powder 1 applic topical BID Qty: 0 0RF Protocol: *Topical Application Instructions APPLICATION INSTRUCTIONS: ABD FOLDS Continued duloxetine 30 mg capsule,delayed release(DR/EC) 30 mg PO DAILY [facility] 10 billion cell -200 mg capsule 1 cap PO DAILY PRN (Reason: [facility]) furosemide 40 mg tablet 40 mg PO BID Rx Instructions: AM AND 1400 famotidine 40 mg tablet 40 mg PO BID melatonin 3 mg tablet 3 mg PO HS cyanocobalamin (vitamin B-12) [Vitamin B-12] 1,000 mcg tablet 1,000 mcg PO DAILY nitroglycerin 0.4 mg Tablet, Sublingual 0.4 mg sublingual Q5M PRN (Reason: Cardiac/Chest Pain) Qty: 0 0RF diltiazem HCl [Cartia XT] 120 mg capsule,extended release 24hr 120 mg PO BID metoprolol succinate 25 mg tablet extended release 24 hr 25 mg PO DAILY acetaminophen 500 mg Tablet 1,000 mg PO Q6H PRN PRN (Reason: Pain Score 1-10) Qty: 0 0RF potassium chloride [Klor-Con M20] 20 mEq Tablet,Er Particles/Crystals 20 meq PO BIDCM 30 Days Qty: 60 0RF lamotrigine 100 mg Tablet 100 mg PO BID 30 Days Qty: 60 0RF cholecalciferol (vitamin D3) [Vitamin D3] 25 mcg (1,000 unit) Tablet 25 mcg PO DAILY Held aspirin 81 mg Capsule 81 mg PO DAILY Hold Instructions: Resume on 12/09/22. Referrals / Follow Up: [facility] [Provider Group] - 01/04/23 2:00 pm Nahomy Bettencourt MD [Primary Care Provider] - Within 2 Weeks Jimenez Wing MD [Non-Staff -Ordering Privileges] - 12/28/22 10:00 am Disposition Disposition (needs filled in before D/C Order can be placed): Longterm Facility Charges/Coding Visit Charges Inpatient E&M: 99681 Disch Hosp >30min
--- NOTE | 2022-11-09 14:32 | PHA.DC.MR ---
Pharmacy Service has performed discharge medication reconciliation for this patient. The patient's discharge medication list was reviewed for discrepancies and discrepancies were resolved. Home Medications duloxetine 30 mg capsule,delayed release 30 mg PO DAILY NEUROPATHY 09/22/20 nitroglycerin 0.4 mg sublingual tablet 0.4 mg sublingual Q5M PRN Cardiac/Chest Pain #0 tabs 06/11/22 Lactobacillus rhamnosus GG 10 billion cell-inulin 200 mg capsule ([facility]) 1 cap PO DAILY PRN [facility] 08/10/22 cyanocobalamin (vitamin B-12) 1,000 mcg tablet (Vitamin B-12) 1,000 mcg PO DAILY supplement 08/10/22 famotidine 40 mg tablet 40 mg PO BID stomach 08/10/22 furosemide 40 mg tablet 40 mg PO BID Diuretic 08/10/22 melatonin 3 mg tablet 3 mg PO HS sleep 08/10/22 diltiazem HCl 120 mg capsule,extended release 24 hr (Cartia XT) 120 mg PO BID heart 08/29/22 metoprolol succinate 25 mg tablet,extended release 24 hr 25 mg PO DAILY blood pressure 08/30/22 acetaminophen 500 mg tablet 1,000 mg PO Q6H PRN PRN Pain Score 1-10 #0 tabs 09/17/22 lamotrigine 100 mg tablet 100 mg PO BID 30 days #60 tabs 09/17/22 potassium chloride 20 mEq tablet,extended release(part/cryst) (Klor-Con M) 20 meq PO BIDCM 30 days #60 tabs 09/17/22 aspirin 81 mg capsule 81 mg PO DAILY 11/06/22 cholecalciferol (vitamin D3) 25 mcg (1,000 unit) tablet (Vitamin D3) 25 mcg PO DAILY 11/06/22 aspirin 81 mg chewable tablet 81 mg PO BIDCM #60 tabs 11/09/22 nystatin 100,000 unit/gram topical powder (Nyamyc) 1 applic topical BID #0 grams 11/09/22 tramadol 50 mg tablet 50 mg PO Q6H PRN PRN Pain Score 4-10 3 days #12 tabs 11/09/22
--- NOTE | 2022-11-09 15:18 | CASEMGMT ---
Social Work Discharge entered by physician. Telephone call to patient spouse, Lyle. Lyle updated that patient to discharge to TCU today. PLAN: TCU, Skilled. Jose C MAURICIO, [place]
--- NOTE | 2022-11-09 17:34 | PCM.PN.ORT ---
Subjective Subjective Patient seen and examined. She denies any new complaints. Denies fevers, chills, nausea vomiting, chest pain or shortness of breath. Pain controlled left hip. Objective Data Objective Data Vital Signs: Vital Signs Temp Pulse Resp BP Pulse Ox O2 Del Method O2 Flow Rate 98.3 F 88 18 108/70 92 Room Air 2 11/09/22 14:49 11/09/22 14:49 11/09/22 14:49 11/09/22 14:49 11/09/22 14:49 11/09/22 14:49 11/09/22 08:15 FiO2 2 11/08/22 01:09 Oxygen Flow Rate (L/min) 2 Oxygen Delivery Method Room Air Weight: 171 lb 6.374 oz Body Mass Index (BMI) 26.8 Intake & Output: Intake and Output for Last 24 Hours 11/07/22 11/08/22 11/09/22 23:59 23:59 23:59 Intake Total 350 / 350 780 / 780 1000 / 1000 Output Total 1250 / 1250 1200 / 1200 775 / 775 Balance -900 / -900 -420 / -420 225 / 225 Lab / Micro Data Result Diagrams: 11/09/22 06:00 11/09/22 06:00 Labs: Laboratory Results - last 24 hr 11/09/22 06:00: WBC 11.4 H, RBC 3.16 L, Hgb 10.1 L, Hct 32.9 L, MCV 104.1 H, MCH 32.0, MCHC 30.7 L, RDW Std Deviation 55.4 H, RDW Coeff of Robert 14.4, Plt Count 221, MPV 9.5 11/09/22 06:00: Sodium 133 L, Potassium 4.3, Chloride 104, Carbon Dioxide 23.0, Anion Gap 6, BUN 16, Creatinine 0.77, Estim Creat Clear Calc 40.72, Est GFR (MDRD) Af Amer 92, Est GFR (MDRD) Non-Af 76, BUN/Creatinine Ratio 20.7 H, Glucose 120 H, Calcium 8.9 Rhythm Strip Rhythm Strip: A-fib Physical Exam Narrative General - A&Ox3, NAD. VSS/AF Left lower extremity -incisional dressing C/D/I. SILT Sural, Saphenous, SPN, DPN, Tibial N. distributions. DP, PT 2+. BCR. DF, PF, EHL 5/5. No calf TTP. Assessment & Plan Assessment/Plan (1) Closed left hip fracture: PLAN: POD#1 s/p left hip hemiarthroplasty - Pain control - Medicine following for medical management - PT/OT-weightbearing as tolerated operative extremity, posterior precautions - DVT PPX -aspirin 81 mg twice daily, SCDs, SACHA hose, early mobilization -Stable from orthopedic standpoint for discharge to TCU. Follow-up with Dr. Bone in 2 weeks.
== END 2022-11-09 17:15 | disposition skilled nursing facility (03) | DRG 522 ==
LOC: ED 12:25 → MS3 12:55
PROVIDERS: Anesthesiology; Orthopaedic Surgery; Admitting Provider Internal Medicine; Emergency Provider Student in an Organized Health Care Education/Training Program; PCP Family Medicine
PROC: 0SRS0JZ Replacement of Left Hip Joint, Femoral Surface with Synthetic Substitute, Open Approach (ICD-10-PCS; CPT 27125; principal; 2022-11-08 12:40)
DX: S72.012A Unspecified intracapsular fracture of left femur, initial encounter for closed fracture (principal); I42.8 Other cardiomyopathies; I48.21 Permanent atrial fibrillation; I50.22 Chronic systolic (congestive) heart failure; E11.42 Type 2 diabetes mellitus with diabetic polyneuropathy; E11.621 Type 2 diabetes mellitus with foot ulcer; G40.909 Epilepsy, unspecified, not intractable, without status epilepticus; L97.529 Non-pressure chronic ulcer of other part of left foot with unspecified severity; G30.9 Alzheimer's disease, unspecified; I11.0 Hypertensive heart disease with heart failure; F02.A0 Dementia in other diseases classified elsewhere, mild, without behavioral disturbance, psychotic disturbance, mood disturbance, and anxiety; I08.0 Rheumatic disorders of both mitral and aortic valves; I25.10 Atherosclerotic heart disease of native coronary artery without angina pectoris; M75.102 Unspecified rotator cuff tear or rupture of left shoulder, not specified as traumatic; M19.90 Unspecified osteoarthritis, unspecified site; W18.39XA Other fall on same level, initial encounter; Z87.891 Personal history of nicotine dependence; Z66 Do not resuscitate; Y93.K9 Activity, other involving animal care; Y92.009 Unspecified place in unspecified non-institutional (private) residence as the place of occurrence of the external cause; Z79.899 Other long term (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; Z79.82 Long term (current) use of aspirin
CPT/HCPCS: 36415; 51702; 70450; 71045; 72125; 73030; 73130; 73502; 80048; 80053; 81001; 82306; 82542; 83036; 83735; 83880; 84100; 84443; 84484; 85025; 85027; 85730; 86850; 86900; 86901; 88305; 88311; 93005; 93306; 94668; 97162; 97166; 99252; 99285; C1776; J7030; Q9957; A4216; G0463; J2405

== ENCOUNTER 2022-11-09 17:20 | Inpatient (IN) | payer MEDICARE, OTHER, SELFPAY ==
[2022-11-09 18:00] VITALS: BP 90/47; PULSE 102; RESP 14; TEMP 36.6; O2SAT 90; BMI 25.7
[2022-11-09 18:40] VITALS: PULSE 66; RESP 16; O2SAT 92
[2022-11-09] MEDS: Famotidine 20 MG Tablet 40 MG PO (20:08)
[2022-11-09] MEDS: dilTIAZem CD 120 MG Capsule PO (20:08)
[2022-11-09] MEDS: lamoTRIgine 100 MG Tablet PO (20:08)
[2022-11-09] MEDS: MELATONIN 3 MG TABLET PO (20:09)
--- NOTE | 2022-11-09 22:55 | HP.PCM_ITS ---
HPI - General General Date of Admission: 11/09/22 Date of Service: 11/09/22 Chief Complaint: Here for rehabilitation. HPI Narrative 11/06/2022 MAGDY MIRAMONTES, is a 82 Female who presents to [facility] Emergency Department with fall. Left hip pain, Left shoulder pain, fell checking pet bowl. EKG atrial fibrillation with controlled ventricular response. CBCD okay, BMP okay, LFT's okay, BNP 263, but Chest X-ray negative. Troponin okay, CT brain okay, CT cervical spine okay, Urinalysis okay. X-ray left shoulder okay. X-ray showed left hip fracture. 11/06/2022 Admit to Hospital. Pain control, prepare for surgery for left hip fracture. PT/OT SNF. Hold Diltiazem for low blood pressure. 11/06/2022 Echo mild concentric LVH. Severe global LV dysfunction. LVEF 25%. 11/07/2022 Cardiology cleared for surgery, stop Diltiazem. 11/08/2022 Memory loss chronic. 11/08/2022 Dr. Bone performed left hip hemiarthroplasty. 11/09/2022 Confusion over night. X-ray left shoulder negative, consider CT if pain persists. 11/09/2022 Admit to TCU with debility, here for rehabilitation, strengthening, prior to discharge home with . FORMERLY [facility], [facility]–1983 Medical History (Updated 11/09/22 @ 23:[address] Arsenio Pride MD) Abnormal stress test Acute postoperative pain of right knee Acute systolic congestive heart failure Ambulates with cane Anxiety Aortic stenosis Arthritis Atherosclerotic heart disease of [place] coronary artery without angina pectoris Back pain Cardiology follow-up encounter Cardiomyopathy Cellulitis of chest wall Chronic constipation Chronic cough Congestive heart failure (CHF) Debility Debility Dementia Depression Depression Diabetes Diabetes mellitus Diabetic neuropathy Diabetic polyneuropathy Dietary restriction DM2 (diabetes mellitus, type 2) Epilepsy Essential hypertension Former smoker H/O cardiac murmur History of atrial fibrillation History of echocardiogram History of left heart catheterization (LHC) (~06/02/22) History of pain when walking History of steroid therapy History of stress test Hx of back injury Hx of vaginal delivery Hypertension Hypertension Hypertension Inability to ambulate due to knee Injury of back Injury of head and neck Nephrolithiasis Neuropathy Neuropathy, diabetic Other penitentiary (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 Parkinson's disease Paroxysmal atrial fibrillation Pericardial effusion Pleural effusion due to CHF (congestive heart failure) Seizure disorder Seizures Tremor Vitamin D deficiency Wears glasses Home Medications duloxetine 30 mg capsule,delayed release 30 mg PO DAILY NEUROPATHY 09/22/20 [History Last Taken 08/28/22] nitroglycerin 0.4 mg sublingual tablet 0.4 mg sublingual Q5M PRN Cardiac/Chest Pain #0 tabs 06/11/22 [Rx Last Taken Unknown] Lactobacillus rhamnosus GG 10 billion cell-inulin 200 mg capsule (Dragonfly ListMicreos) 1 cap PO DAILY PRN GUT HEALTH 08/10/22 [History Last Taken Unknown] cyanocobalamin (vitamin B-12) 1,000 mcg tablet (Vitamin B-12) 1,000 mcg PO DAILY supplement 08/10/22 [History Last Taken 08/29/22] famotidine 40 mg tablet 40 mg PO BID stomach 08/10/22 [History Last Taken 08/29/22] furosemide 40 mg tablet 40 mg PO BID Diuretic 08/10/22 [History Last Taken 08/29/22] melatonin 3 mg tablet 3 mg PO HS sleep 08/10/22 [History Last Taken Unknown] diltiazem HCl 120 mg capsule,extended release 24 hr (Cartia XT) 120 mg PO BID heart 08/29/22 [History Last Taken 08/29/22] metoprolol succinate 25 mg tablet,extended release 24 hr 25 mg PO DAILY blood pressure 08/30/22 [History Last Taken Unknown] acetaminophen 500 mg tablet 1,000 mg PO Q6H PRN PRN Pain Score 1-10 #0 tabs 09/17/22 [Rx Last Taken Unknown] aspirin 81 mg capsule 81 mg PO DAILY Heart 11/06/22 [History Last Taken Unknown] cholecalciferol (vitamin D3) 25 mcg (1,000 unit) tablet (Vitamin D3) 25 mcg PO DAILY Supplement 11/06/22 [History Last Taken Unknown] aspirin 81 mg chewable tablet 81 mg PO BIDCM Heart 11/09/22 [History Last Taken Unknown] lamotrigine 100 mg tablet 100 mg PO BID Seizures 11/09/22 [History Last Taken Unknown] nystatin 100,000 unit/gram topical powder (Nyamyc) 1 applic topical BID Skin 11/09/22 [History Last Taken Unknown] potassium chloride 20 mEq tablet,extended release(part/cryst) (Klor-Con M) 20 meq PO BIDCM Supplement 11/09/22 [History Last Taken Unknown] tramadol 50 mg tablet 50 mg PO Q6H PRN PRN Pain Score 4-10 3 days #12 tabs 11/09/22 [Rx Last Taken Unknown] Allergy/AdvReac Type Severity Reaction Status Date / Time bacitracin Allergy Rash Verified 08/29/22 13:54 [From Neosporin ([id number])] bacitracin zinc Allergy Rash Verified 08/29/22 13:54 [From Neosporin ([id number]-[id number])] levetiracetam Allergy Other Verified 08/29/22 13:54 neomycin sulfate Allergy Rash Verified 08/29/22 13:54 [From Neosporin ([id number]-[id number])] nickel Allergy Other Verified 08/29/22 13:54 polymyxin B Allergy Rash Verified 08/29/22 13:54 [From Neosporin ([id number])] sulfamethoxazole Allergy Itching Verified 08/29/22 13:54 [From Bactrim] trimethoprim [From Bactrim] Allergy Itching Verified 08/29/22 13:54 codeine AdvReac Nausea Verified 08/29/22 13:54 milk AdvReac Nausea/Vom/ Verified 08/29/22 13:54 Diarrhea Family History Father No problems noted. Mother No problems noted. Surgical History (Updated 11/09/22 @ 23:[address] Arsenio Pride MD) Amputated toe of right foot Deviated septum History of appendectomy History of cholecystectomy History of hysterectomy History of left hip hemiarthroplasty History of neck surgery History of tonsillectomy History of total right knee replacement (TKR) Hx of cystoscopy Hx of fusion of cervical spine S/P total knee arthroplasty Social History household members: spouse Smoking Status: Former smoker alcohol intake: never substance use type: does not use caffeine: No what type of physical activity do you participate in: other details: physical therapy seatbelt use: always do you feel safe at home: Yes ROS Constitutional Constitutional: Denies chills, fever(s) or weight gain ENT HEENT: Denies headache(s), nasal congestion or nasal discharge Cardiovascular Cardiovascular: Denies chest pain or palpitations Respiratory/Chest Respiratory/Chest: Denies cough, excessive phlegm production or shortness of breath with exertion Gastrointestinal Gastrointestinal: Denies abdominal pain, nausea or vomiting Genitourinary Genitourinary: Denies dysuria Musculoskeletal Musculoskeletal: Denies joint pain or joint swelling Integumentary Integumentary: Denies rash or wounds Neurologic Neurologic: Denies focal weakness, numbness or tingling Psychiatric Psychiatric: Denies anxiety, auditory hallucinations, depression, homicidal ideation or suicidal ideation Physical Exam Const alert General Appearance: cooperative HEENT normocephalic Eyes PERRL and EOMs intact bilaterally Neck supple, no JVD and no carotid bruits Resp normal respiratory effort, normal air movement and clear to auscultation bilaterally Cardio regular rate and regular rhythm GI normal to inspection, nondistended, normoactive bowel sounds, non-tender and non-distended Extremity normal capillary refill General Extremity: Negative for edema Skin no rashes or lesions noted General Skin Exam: no breakdown Psych affect normal Appearance: appropriate Assessment & Plan Assessment/Plan (1) Debility: (2) Closed left hip fracture: (3) Left shoulder pain: (4) Atrial fibrillation: (5) Depression: (6) Chronic systolic congestive heart failure: (7) Coronary artery disease: (8) Seizure disorder: (9) Diabetes mellitus: (10) Hypokalemia: PLAN: Plan 82 year old female with below past medical history hospitalized for left hip fracture, underwent left hip hemiarthroplasty 11/08/[address] Bone, admitted to TCU with debility, here for rehabilitation, strengthening, prior to discharge home with . * Debility - PT/OT. * Pain - Tylenol 1000mg q8, Tramadol 50mg q6h prn pain (1-5), Oxycodone 5mg q4h prn pain (6-10). * Bowel - senna/colace 2 tablets bid, Magnesium citrate 300ml po x 1 prn. * Adult immunization - Administer pneumonia vaccine, covid19 vaccine, flu vaccine as appropriate. * DVT prophylaxis - Aspirin 81mg bid thru 12/08/2022. * Coronary artery disease - Metoprolol succinate 25mg daily, Aspirin 81mg daily, NTG 0.4mg sl q5m prn. * Atrial fibrillation - Metoprolol succinate 25mg daily, Aspirin 81mg daily. * Vitamin B12 deficiency - B12 1000mcg daily. 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 * GERD - Famotidine 40mg bid. * Chronic systolic congestive heart failure (EF 25%) - Metoprolol succinate 25mg daily, Furosemide 40mg bid. * Seizure disorder - Lamictal 100mg bid. * Insomnia - Melatonin 3mg qhs. * Tinea Corporis - Nystatin topical bid. * Hypokalemia - KCL 20meq bid. * Vitamin D deficiency - D3 25mcg daily.
[2022-11-10] MEDS: traMADol 50 MG Tablet PO (00:02)
[2022-11-10] MEDS: Lactulose 20 GM/30 ML UDC PO (00:04)
[2022-11-10 01:14] VITALS: BP 101/42; PULSE 92
[2022-11-10] MEDS: Nitroglycerin (INPATIENT USE) 0.4 MG TAB.SUBL SL ×2 (01:14→01:24)
--- NOTE | 2022-11-10 01:20 | EKG12_ITS ---
Test Reason : CP Blood Pressure : / mmHG Vent. Rate : 090 BPM Atrial Rate : 122 BPM P-R Int : 000 ms QRS Dur : 154 ms QT Int : 404 ms P-R-T Axes : 000 -12 141 degrees QTc Int : 494 ms Atrial fibrillation Left bundle branch block Abnormal ECG When compared with ECG of 06-NOV-2022 10:45, No significant change was found Confirmed by CAITLIN LYNN, ABI ([id number]), story editor MAMADOU TROY ([id number]) on 11/11/2022 10:17:12 AM Referred By: SEFERINO Confirmed By:ABI TUCKER MD
[2022-11-10 01:24] VITALS: BP 113/47; PULSE 77
[2022-11-10] MEDS: oxyCODONE 5 MG Tablet PO (01:35)
--- NOTE | 2022-11-10 01:38 | NURSING ---
Patient called, requesting pain medication. When assessing pain, patient c/o pain in chest and in both arms, rating a 10/10. Call to RT for EKG. Patient does have history of atrial fibrillation with RVR. VS obtained, BP 101/42, P 92.nitroglycerin administered. O2 2L/min applied due to SpO2 at 88%, increased to 3L/min after 5 minutes due to no improvement in SpO2. EKG obtained, showed a-fib, but no RVR. Pain rated at 8/10 in chest and arms. VS obtained, 2nd Nitroglycerin administered approximately 10 minutes after 1st. Pain rated at about a 4/10 in chest area at this time. Patient is more relaxed. Oxycodone administered for left chronic shoulder pain at this time. Patient states that chest and right arm are feeling normal. SpO2 92% on O2 3L/min. Patient resting, eyes closed. Will continue to monitor.
[2022-11-10 04:50] VITALS: BP 108/48; PULSE 87
[2022-11-10] MEDS: Nystatin Powder 15gm Bottle 1 APPLIC TOPICAL ×2 (04:50→17:25)
[2022-11-10] MEDS: Furosemide 40 MG Tablet PO ×2 (04:50→13:38)
[2022-11-10] MEDS: DULoxetine Hcl 30 MG Capsule PO (04:50)
[2022-11-10] MEDS: Senna/Docusate Sodium 1 Tablet 2 TABLET PO ×2 (04:50→17:22)
[2022-11-10] MEDS: Acetaminophen 500 MG Tablet 1000 MG PO ×3 (04:50→22:45)
[2022-11-10] MEDS: Famotidine 20 MG Tablet 40 MG PO ×2 (04:50→17:22)
[2022-11-10] MEDS: Metoprolol(XL)Succ 25 MG Tablet PO (04:50)
[2022-11-10] MEDS: lamoTRIgine 100 MG Tablet PO ×2 (04:50→17:21)
[2022-11-10 07:15] LABS: Absolute Lymphocyte Count 1.19 X10^3/uL (0.83-4.51); Absolute Neutrophil Count 7.5 X10^3/uL (2.0-7.7); Basophil# 0.05 X10^3/uL; Basophil% 0.5 % (0-1); Eosinophil# 0.18 X10^3/uL; Eosinophils% 1.8 % (0-5); Hematocrit 31.5 % (37-47); Lymphocyte # 1.19 X10^3/ul (0.83-4.51); Lymphocyte % 12.2 % (19-41); Mean Corp Hgb Conc 31.7 g/dL (32-36); Mean Corpuscular Hgb 32.7 pg (27.0-32.0); Mean Corpuscular Volume 102.9 fL (81-99); Mean Platelet Vol. 10.1 fl (6.2-12.0); Monocyte# 0.83 X10^3/uL; Monocyte% 8.5 % (0-10); NRBC Flagged by Analyzer 0 % (0-5); Neutrophil # 7.45 X10^3/uL (2.7-7.7); Neutrophil % 76.7 % (47-70); Platelet Count 257 K/mm3 (150-450); RBC Distribution Width CV 14.6 % (11.6-14.6); RBC Distribution Width SD 55.1 fl (35.1-43.9); Red Blood Count 3.06 M/mm3 (4.2-5.4); White Blood Count 9.7 K/mm3 (4.4-11.0)
[2022-11-10 07:41] LABS: Anion Gap 4 (5-15); BUN 18 mg/dL (7-18); BUN/Creat Ratio 23.8 RATIO (10-20); Calcium,Total 8.7 mg/dL (8.5-10.1); Chloride 104 mmol/L (98-107); Creatinine, Serum 0.76 mg/dL (0.55-1.02); EST Glomerular Filtration Rate 78 mL/min (>60); Est Glom Filt Rate - Afr Amer 94 mL/min (>60); Estimated Creatinine Clearance 40.72 ml/min; Glucose 116 mg/dL (74-106); Sodium Level 138 mmol/L (136-145)
[2022-11-10] MEDS: Potassium Chloride Oral Tablet 20 MEQ PO ×2 (08:53→17:21)
[2022-11-10] MEDS: Aspirin 81 MG TAB.CHEW PO ×2 (08:53→17:22)
[2022-11-10] MEDS: Cyanocobalamin 500 MCG Tablet 1000 MCG PO (08:53)
[2022-11-10] MEDS: Cholecalciferol (VIT D3) 25 MCG TABLET (1,000 UNITS) PO (08:53)
[2022-11-10] MEDS: Tuberculin,Purif.prot.deriv. 50 TU/ML Vial 0.1 ML ID (08:58)
--- NOTE | 2022-11-10 10:50 | NURSING ---
Travel Occupational Therapist Note; Activity Asset: Tiffanie Walton has returned to TCU for therapy due to a fall. She remains independent in her choice of daily activities. He visits daily and brings her coloring pages, painting stuff and reading materials from home. She will attend group activities of her choice when ready. When in her room she reads, watches tv, visits with family and friends. Isabelle welcomes the inspector weights and measures and therapy.
[2022-11-10 14:40] VITALS: BP 95/42; PULSE 71; RESP 16; TEMP 35.6; O2SAT 94
[2022-11-10] MEDS: MELATONIN 3 MG TABLET PO (22:45)
[2022-11-11 06:13] VITALS: BP 113/70; PULSE 98
[2022-11-11] MEDS: lamoTRIgine 100 MG Tablet PO ×2 (06:13→16:54)
[2022-11-11] MEDS: DULoxetine Hcl 30 MG Capsule PO (06:13)
[2022-11-11] MEDS: Senna/Docusate Sodium 1 Tablet 2 TABLET PO ×2 (06:13→16:53)
[2022-11-11] MEDS: Metoprolol(XL)Succ 25 MG Tablet PO (06:13)
[2022-11-11] MEDS: Furosemide 40 MG Tablet PO ×2 (06:13→13:54)
[2022-11-11] MEDS: Famotidine 20 MG Tablet 40 MG PO ×2 (06:14→16:53)
[2022-11-11] MEDS: Acetaminophen 500 MG Tablet 1000 MG PO ×3 (06:14→20:34)
[2022-11-11] MEDS: Nystatin Powder 15gm Bottle 1 APPLIC TOPICAL ×2 (06:17→16:52)
[2022-11-11] MEDS: Aspirin 81 MG TAB.CHEW PO ×3 (08:03→16:55)
[2022-11-11] MEDS: Potassium Chloride Oral Tablet 20 MEQ PO ×2 (08:03→16:54)
[2022-11-11] MEDS: Cholecalciferol (VIT D3) 25 MCG TABLET (1,000 UNITS) PO (08:04)
[2022-11-11] MEDS: Cyanocobalamin 500 MCG Tablet 1000 MCG PO (08:04)
[2022-11-11] MEDS: oxyCODONE 5 MG Tablet PO ×2 (12:43→22:04)
[2022-11-11 14:01] VITALS: BP 110/65; PULSE 103; RESP 14; TEMP 36.1
--- NOTE | 2022-11-11 14:51 | CHAPLAIN ---
Type of Pastoral Visit ___ Initial Visit _x__ Follow-up Visit ___ On-call Visit ___ General Patient Visit ___ Spiritual Assessment ___ Family Conference ___ Bereavement ___ Rapid Response ___ Code Blue ___ Other (describe below) Pastoral Care Referral From _x__ Patient ___ Family ___ Nurse ___ Physician ___ High Density Press Operator ___ Digital Measurement Advisor ___ Other (describe below) Sacrament/Intervention _x__ Active listening ___ Anointing ___ Orthodoxy ___ Bereavement ___ Communion _x__ Myla exploration ___ _x__ Life review _x__ Prayer ___ Reconciliation ___ Sacrament of Sick _x__ Supportive presence ___ Wedding ___ Other (describe below) Pastoral Comments patient is very talkative and begins with review of her recent falls, health decline, and hospitalizations; pt states that she needed to review all this with her because she finds it hard to remember it all and to understand what has happened; pt continues by stating that sons, [id number], sister and [id number] will be meeting with her to review her situation and seek family input; pt is processing all of these parts of her situation; pt is asked about her thoughts and feelings on these matters; pt becomes tearful and explains her anxious thoughts about her future; pt also remarks about her myla in God and the discussion continues about trust, hope, myla, etc. that give her help at this time; pt welcomes prayer and ongoing presence; pt expresses thanks for the time given to her
[2022-11-11] MEDS: Carbamide Peroxide 15 ML Bottle 5 DRP OTIC (18:50)
[2022-11-11] MEDS: MELATONIN 3 MG TABLET PO (20:34)
[2022-11-11 20:45] VITALS: PULSE 102; RESP 14; O2SAT 97
[2022-11-12] MEDS: traMADol 50 MG Tablet PO ×2 (01:56→20:08)
[2022-11-12] MEDS: lamoTRIgine 100 MG Tablet PO ×2 (05:55→18:55)
[2022-11-12] MEDS: DULoxetine Hcl 30 MG Capsule PO (05:55)
[2022-11-12] MEDS: Senna/Docusate Sodium 1 Tablet 2 TABLET PO ×2 (05:55→18:57)
[2022-11-12] MEDS: Nystatin Powder 15gm Bottle 1 APPLIC TOPICAL ×2 (05:55→18:55)
[2022-11-12] MEDS: Acetaminophen 500 MG Tablet 1000 MG PO ×3 (05:55→22:40)
[2022-11-12 05:56] VITALS: BP 109/75; PULSE 100
[2022-11-12] MEDS: Famotidine 20 MG Tablet 40 MG PO ×2 (05:56→18:56)
[2022-11-12] MEDS: Metoprolol(XL)Succ 25 MG Tablet PO (05:56)
[2022-11-12] MEDS: Furosemide 40 MG Tablet PO ×2 (05:56→12:37)
[2022-11-12] MEDS: Carbamide Peroxide 15 ML Bottle 5 DRP OTIC ×2 (05:58→18:55)
[2022-11-12] MEDS: Potassium Chloride Oral Tablet 20 MEQ PO ×2 (08:44→16:50)
[2022-11-12] MEDS: Aspirin 81 MG TAB.CHEW PO ×2 (08:44→16:50)
[2022-11-12] MEDS: Cyanocobalamin 500 MCG Tablet 1000 MCG PO (08:45)
[2022-11-12] MEDS: Cholecalciferol (VIT D3) 25 MCG TABLET (1,000 UNITS) PO (08:45)
--- NOTE | 2022-11-12 11:32 | MDS.RN ---
Pain interview for MDS completed.
--- NOTE | 2022-11-12 12:15 | CASEMGMT ---
Social Work Met with patient to complete initial assessment. Pt known to this worker from previous stay. Confirmed no changes to assessment, code status (DNR-CCA, no intubation) or MOLST form. Educated to Medicare benefit. Explained pt has about 30 days remaining in benefit period. SW to follow for DC planning. Char Sosa PHARMACY ORDER ENTRY TECHNICIAN METAL DIE FINISHER
--- NOTE | 2022-11-12 12:16 | CASEMGMT ---
Social Work BIMS () and PHQ-9 (06/11) completed for MDS assessment. Char Sosa MSW PRIVATE BRANCH EXCHANGE REPAIRER
[2022-11-12 16:00] VITALS: BP 101/61; PULSE 58; RESP 16; TEMP 36.7; O2SAT 98
[2022-11-12] MEDS: oxyCODONE 5 MG Tablet PO (16:50)
[2022-11-12] MEDS: MELATONIN 3 MG TABLET PO (22:40)
[2022-11-13] MEDS: lamoTRIgine 100 MG Tablet PO ×2 (06:21→17:31)
[2022-11-13] MEDS: Carbamide Peroxide 15 ML Bottle 5 DRP OTIC ×2 (06:21→17:30)
[2022-11-13] MEDS: Senna/Docusate Sodium 1 Tablet 2 TABLET PO ×2 (06:21→17:31)
[2022-11-13] MEDS: DULoxetine Hcl 30 MG Capsule PO (06:21)
[2022-11-13] MEDS: Famotidine 20 MG Tablet 40 MG PO ×2 (06:21→17:31)
[2022-11-13] MEDS: Nystatin Powder 15gm Bottle 1 APPLIC TOPICAL ×2 (06:21→17:32)
[2022-11-13] MEDS: Acetaminophen 500 MG Tablet 1000 MG PO ×3 (06:21→20:55)
[2022-11-13] MEDS: Furosemide 40 MG Tablet PO ×2 (06:22→14:48)
[2022-11-13 06:23] VITALS: BP 107/66; PULSE 94
[2022-11-13] MEDS: Metoprolol(XL)Succ 25 MG Tablet PO (06:23)
[2022-11-13] MEDS: Cholecalciferol (VIT D3) 25 MCG TABLET (1,000 UNITS) PO (08:25)
[2022-11-13] MEDS: Potassium Chloride Oral Tablet 20 MEQ PO ×2 (08:25→17:31)
[2022-11-13] MEDS: Cyanocobalamin 500 MCG Tablet 1000 MCG PO (08:25)
[2022-11-13] MEDS: Aspirin 81 MG TAB.CHEW PO ×2 (08:25→17:31)
[2022-11-13 14:51] VITALS: BP 120/63; PULSE 83
[2022-11-13 15:17] VITALS: BP 120/63; PULSE 83; RESP 18; TEMP 35.8; O2SAT 99
[2022-11-13] MEDS: MELATONIN 3 MG TABLET PO (20:56)
[2022-11-14] MEDS: Senna/Docusate Sodium 1 Tablet 2 TABLET PO ×2 (06:07→17:10)
[2022-11-14 06:08] VITALS: BP 115/77; PULSE 93
[2022-11-14] MEDS: Metoprolol(XL)Succ 25 MG Tablet PO (06:08)
[2022-11-14] MEDS: Furosemide 40 MG Tablet PO ×2 (06:08→15:04)
[2022-11-14] MEDS: lamoTRIgine 100 MG Tablet PO ×2 (06:08→17:10)
[2022-11-14] MEDS: Acetaminophen 500 MG Tablet 1000 MG PO ×3 (06:08→20:01)
[2022-11-14] MEDS: Famotidine 20 MG Tablet 40 MG PO ×2 (06:09→17:10)
[2022-11-14] MEDS: DULoxetine Hcl 30 MG Capsule PO (06:09)
[2022-11-14] MEDS: Nystatin Powder 15gm Bottle 1 APPLIC TOPICAL ×2 (06:09→17:11)
[2022-11-14] MEDS: Carbamide Peroxide 15 ML Bottle 5 DRP OTIC ×2 (06:10→17:09)
[2022-11-14] MEDS: Aspirin 81 MG TAB.CHEW PO ×2 (08:25→17:10)
[2022-11-14] MEDS: Cholecalciferol (VIT D3) 25 MCG TABLET (1,000 UNITS) PO (08:25)
[2022-11-14] MEDS: Potassium Chloride Oral Tablet 20 MEQ PO ×2 (08:26→17:11)
[2022-11-14] MEDS: Cyanocobalamin 500 MCG Tablet 1000 MCG PO (08:26)
[2022-11-14] MEDS: traMADol 50 MG Tablet PO (08:33)
[2022-11-14 09:06] VITALS: PULSE 83; O2SAT 96
[2022-11-14 14:36] VITALS: BP 122/67; PULSE 100; RESP 16; TEMP 36.2; O2SAT 98
[2022-11-14] MEDS: oxyCODONE 5 MG Tablet PO ×2 (17:17→21:49)
[2022-11-14] MEDS: MELATONIN 3 MG TABLET PO (20:01)
[2022-11-14 21:51] LABS: Bedside Glucose 108 mg/dL (74-106)
[2022-11-15 06:19] VITALS: BP 123/78; PULSE 103
[2022-11-15] MEDS: Carbamide Peroxide 15 ML Bottle 5 DRP OTIC ×2 (06:19→17:41)
[2022-11-15] MEDS: Metoprolol(XL)Succ 25 MG Tablet PO (06:19)
[2022-11-15] MEDS: Acetaminophen 500 MG Tablet 1000 MG PO ×3 (06:22→21:44)
[2022-11-15] MEDS: Furosemide 40 MG Tablet PO ×2 (06:22→13:03)
[2022-11-15] MEDS: lamoTRIgine 100 MG Tablet PO ×2 (06:22→17:40)
[2022-11-15] MEDS: Famotidine 20 MG Tablet 40 MG PO ×2 (06:22→17:40)
[2022-11-15] MEDS: DULoxetine Hcl 30 MG Capsule PO (06:22)
[2022-11-15] MEDS: Senna/Docusate Sodium 1 Tablet 2 TABLET PO ×2 (06:23→17:40)
[2022-11-15] MEDS: Nystatin Powder 15gm Bottle 1 APPLIC TOPICAL ×2 (06:25→17:42)
[2022-11-15] MEDS: Cholecalciferol (VIT D3) 25 MCG TABLET (1,000 UNITS) PO (08:52)
[2022-11-15] MEDS: Aspirin 81 MG TAB.CHEW PO ×2 (08:52→17:40)
[2022-11-15] MEDS: Cyanocobalamin 500 MCG Tablet 1000 MCG PO (08:52)
[2022-11-15] MEDS: Potassium Chloride Oral Tablet 20 MEQ PO ×2 (08:52→17:41)
[2022-11-15 16:00] VITALS: BP 100/67; PULSE 95; RESP 16; TEMP 36.3; O2SAT 96
[2022-11-15 19:41] VITALS: PULSE 16; RESP 16; O2SAT 98
[2022-11-15] MEDS: MELATONIN 3 MG TABLET PO (21:44)
[2022-11-15] MEDS: oxyCODONE 5 MG Tablet PO (21:48)
--- NOTE | 2022-11-16 05:30 | NURSING ---
Pt refused bed rail padding per seizure precautions despite education.
[2022-11-16 05:56] VITALS: BP 112/59; PULSE 83
[2022-11-16] MEDS: Famotidine 20 MG Tablet 40 MG PO ×2 (05:56→17:57)
[2022-11-16] MEDS: Senna/Docusate Sodium 1 Tablet 2 TABLET PO ×2 (05:56→17:57)
[2022-11-16] MEDS: Acetaminophen 500 MG Tablet 1000 MG PO ×3 (05:56→19:39)
[2022-11-16] MEDS: Metoprolol(XL)Succ 25 MG Tablet PO (05:56)
[2022-11-16] MEDS: DULoxetine Hcl 30 MG Capsule PO (05:56)
[2022-11-16] MEDS: Nystatin Powder 15gm Bottle 1 APPLIC TOPICAL ×2 (05:56→17:58)
[2022-11-16] MEDS: Furosemide 40 MG Tablet PO ×2 (05:56→13:03)
[2022-11-16] MEDS: lamoTRIgine 100 MG Tablet PO ×2 (05:56→17:57)
[2022-11-16] MEDS: Carbamide Peroxide 15 ML Bottle 5 DRP OTIC ×2 (05:59→17:57)
[2022-11-16] MEDS: Cholecalciferol (VIT D3) 25 MCG TABLET (1,000 UNITS) PO (07:57)
[2022-11-16] MEDS: Potassium Chloride Oral Tablet 20 MEQ PO ×2 (07:58→17:58)
[2022-11-16] MEDS: Cyanocobalamin 500 MCG Tablet 1000 MCG PO (07:58)
[2022-11-16] MEDS: Aspirin 81 MG TAB.CHEW PO ×2 (07:59→17:58)
[2022-11-16 09:15] VITALS: PULSE 85; RESP 15; O2SAT 98
[2022-11-16 13:34] VITALS: BMI 24.6
[2022-11-16 15:44] VITALS: BP 92/49; PULSE 16; RESP 16; TEMP 36.6; O2SAT 98
[2022-11-16] MEDS: MELATONIN 3 MG TABLET PO ×2 (19:49→19:50)
[2022-11-16] MEDS: traMADol 50 MG Tablet PO (21:21)
[2022-11-17 05:50] LABS: Absolute Lymphocyte Count 1.95 X10^3/uL (0.83-4.51); Absolute Neutrophil Count 5.1 X10^3/uL (2.0-7.7); Basophil# 0.06 X10^3/uL; Basophil% 0.7 % (0-1); Eosinophil# 0.47 X10^3/uL; Eosinophils% 5.7 % (0-5); Hematocrit 35.3 % (37-47); Hemoglobin 10.9 g/dL (12.0-15.0); Lymphocyte # 1.95 X10^3/ul (0.83-4.51); Lymphocyte % 23.7 % (19-41); Mean Corp Hgb Conc 30.9 g/dL (32-36); Mean Corpuscular Hgb 32.2 pg (27.0-32.0); Mean Corpuscular Volume 104.4 fL (81-99); Mean Platelet Vol. 9.3 fl (6.2-12.0); Monocyte# 0.59 X10^3/uL; Monocyte% 7.2 % (0-10); NRBC Flagged by Analyzer 0 % (0-5); Neutrophil # 5.12 X10^3/uL (2.7-7.7); Neutrophil % 62.3 % (47-70); Platelet Count 377 K/mm3 (150-450); RBC Distribution Width CV 14.4 % (11.6-14.6); RBC Distribution Width SD 55.1 fl (35.1-43.9); Red Blood Count 3.38 M/mm3 (4.2-5.4); White Blood Count 8.2 K/mm3 (4.4-11.0)
[2022-11-17] MEDS: Carbamide Peroxide 15 ML Bottle 5 DRP OTIC ×2 (06:01→16:58)
[2022-11-17] MEDS: Senna/Docusate Sodium 1 Tablet 2 TABLET PO ×2 (06:02→16:58)
[2022-11-17] MEDS: Furosemide 40 MG Tablet PO ×2 (06:02→13:23)
[2022-11-17] MEDS: Famotidine 20 MG Tablet 40 MG PO ×2 (06:02→16:57)
[2022-11-17] MEDS: lamoTRIgine 100 MG Tablet PO ×2 (06:04→16:59)
[2022-11-17] MEDS: Nystatin Powder 15gm Bottle 1 APPLIC TOPICAL ×2 (06:04→16:56)
[2022-11-17 06:08] VITALS: BP 115/62; PULSE 83
[2022-11-17] MEDS: Metoprolol(XL)Succ 25 MG Tablet PO (06:08)
[2022-11-17] MEDS: Acetaminophen 500 MG Tablet 1000 MG PO ×3 (06:09→20:00)
[2022-11-17] MEDS: DULoxetine Hcl 30 MG Capsule PO (06:09)
[2022-11-17 06:47] LABS: Anion Gap 4 (5-15); BUN 17 mg/dL (7-18); BUN/Creat Ratio 21.9 RATIO (10-20); Calcium,Total 9.3 mg/dL (8.5-10.1); Chloride 110 mmol/L (98-107); Creatinine, Serum 0.78 mg/dL (0.55-1.02); EST Glomerular Filtration Rate 75 mL/min (>60); Est Glom Filt Rate - Afr Amer 91 mL/min (>60); Estimated Creatinine Clearance 40.72 ml/min; Glucose 91 mg/dL (74-106); Potassium 3.8 mmol/L (3.5-5.1); Sodium Level 143 mmol/L (136-145)
[2022-11-17] MEDS: Potassium Chloride Oral Tablet 20 MEQ PO ×2 (08:35→16:56)
[2022-11-17] MEDS: Aspirin 81 MG TAB.CHEW PO ×2 (08:35→16:58)
[2022-11-17] MEDS: Cyanocobalamin 500 MCG Tablet 1000 MCG PO (08:36)
[2022-11-17] MEDS: Cholecalciferol (VIT D3) 25 MCG TABLET (1,000 UNITS) PO (08:36)
[2022-11-17] MEDS: Tuberculin,Purif.prot.deriv. 50 TU/ML Vial 0.1 ML ID (09:43)
[2022-11-17] MEDS: traMADol 50 MG Tablet PO (10:17)
--- NOTE | 2022-11-17 10:43 | CASEMGMT ---
Social Work IDT met with patient and for care plan meeting. Discussed patient's progress in PT/OT/ST/SN. Educated to Medicare benefit. Pt admitted with about 30 days remaining in benefit period. IDT stressed importance of having 24/7 supervision and CGA. Pt and would like [facility] skilled HHC again. SW encouraged to hire nonskilled HHC as well and provided resource list. SW to continue to follow for DC planning. Char Sosa, CALIBRATION CHECKER HIGHWAY RESEARCH ENGINEER
[2022-11-17] MEDS: oxyCODONE 5 MG Tablet PO ×2 (13:23→18:50)
--- NOTE | 2022-11-17 14:04 | PHA.CONS_ITS ---
TCU RX Drug Regimen Review Subjective/Objective Subjective/Objective: Subjective: TCU Admission. 82 YOF presented to the ER with a fall. Hospitalized for left hip fracture, underwent left hip hemiarthroplasty 11/08/[address] Bone. Admitted to TCU with debility for strengthening and rehabilitation. Objective: Allergies bacitracin [From Neosporin ([id number])] Allergy (Verified 08/29/22 13:54) Rash SWOLLEN, ITCHING bacitracin zinc [From Neosporin ([id number]-[id number]-[id number])] Allergy (Verified 08/29/22 13:54) Rash SWOLLEN, ITCHING levetiracetam Allergy (Verified 08/29/22 13:54) Other neomycin sulfate [From Neosporin (cgr-ahk-xcscy)] Allergy (Verified 08/29/22 13:54) Rash SWOLLEN, ITCHING nickel Allergy (Verified 08/29/22 13:54) Other polymyxin B [From Neosporin ([id number]-kwy-[id number])] Allergy (Verified 08/29/22 13:54) Rash SWOLLEN, ITCHING sulfamethoxazole [From Bactrim] Allergy (Verified 08/29/22 13:54) Itching trimethoprim [From Bactrim] Allergy (Verified 08/29/22 13:54) Itching codeine Adverse Reaction (Verified 08/29/22 13:54) Nausea milk Adverse Reaction (Verified 08/29/22 13:54) Nausea/Vom/Diarrhea Current Medications Generic Name Dose Route Start Last Admin Trade Name Freq PRN Reason Stop Dose Admin Acetaminophen 1,000 mg 11/10/22 06:00 11/17/22 13:23 Acetaminophen 500 Mg Tablet PO 1,000 mg Q8 ADÁN Administration Aspirin 81 mg 12/09/22 08:00 11/11/22 16:54 Aspirin 81 Mg Tab.Chew PO 81 mg DAILYCM ADÁN Administration Aspirin 81 mg 11/10/22 08:00 11/17/22 08:35 Aspirin 81 Mg Tab.Chew PO 12/08/22 22:00 81 mg BIDCM ADÁN Administration Carbamide Perox/Anhydrous Glycerin 5 drp 11/11/22 18:00 11/17/22 06:01 Carbamide Peroxide 15 Ml Bottle OTIC 11/18/22 06:01 5 drp BID ADÁN Administration Cholecalciferol 25 mcg 11/10/22 08:00 11/17/22 08:36 Cholecalciferol (Vit D3) 25 Mcg Tablet (1,000 Units) PO 25 mcg DAILYCM ADÁN Administration Cyanocobalamin 1,000 mcg 11/10/22 08:00 11/17/22 08:36 Cyanocobalamin 500 Mcg Tablet PO 1,000 mcg DAILYCM ADÁN Administration Duloxetine HCl 30 mg 11/10/22 06:00 11/17/22 06:09 Duloxetine Hcl 30 Mg Capsule PO 30 mg DAILY ADÁN Administration Famotidine 40 mg 11/09/22 18:45 11/17/22 06:02 Famotidine 20 Mg Tablet PO 40 mg BID ADÁN Administration Furosemide 40 mg 11/10/22 06:00 11/17/22 13:23 Furosemide 40 Mg Tablet PO 40 mg 0600,1400 ADÁN Administration Sodium Chloride 250 mls @ 15 mls/hr 11/09/22 23:29 IV .[id number] PRN Saline Flush Sodium Chloride 250 mls @ 15 mls/hr 11/09/22 23:29 IV .[id number] PRN Additional IVPB Infusion Lamotrigine 100 mg 11/09/22 18:45 11/17/22 06:04 Lamotrigine 100 Mg Tablet PO 100 mg BID ADÁN Administration Magnesium Citrate 300 ml 11/09/22 23:12 Magnesium Citrate 300 Ml PO X1 PRN Constipation Melatonin 3 mg 11/09/22 22:00 11/16/22 19:50 Melatonin 3 Mg Tablet PO 3 mg HS ADÁN Administration Metoprolol Succinate 25 mg 11/10/22 06:00 11/17/22 06:08 Metoprolol(Xl)Succ 25 Mg Tablet PO 25 mg DAILY [facility] Administration Nitroglycerin 0.4 mg 11/09/22 18:49 Nitroglycerin (Inpatient Use) 0.4 Mg Tab.Subl SL Q5M PRN Cardiac/Chest Pain Nystatin 1 applic 11/10/22 06:00 11/17/22 06:04 Nystatin Powder 15gm Bottle TOPICAL 1 applic BID [facility] Administration Protocol Oxycodone HCl 5 mg 11/09/22 23:12 11/17/22 13:23 Oxycodone 5 Mg Tablet PO 5 mg Q4H PRN PRN Administration Pain Score 6-10 Potassium Chloride 20 meq 11/10/22 08:00 11/17/22 08:35 Potassium Chloride Oral Tablet 20 Meq PO 20 meq BIDCM ADÁN Administration Senna/Docusate Sodium 2 tablet 11/09/22 23:15 11/17/22 06:02 Senna/Docusate Sodium 1 Tablet PO 2 tablet BID ADÁN Administration Sodium Chloride 10 - 40 ml 11/09/22 23:29 0.9% Saline Lock 10 Ml Syringe IV UD PRN SALINE FLUSH Tramadol HCl 50 mg 11/09/22 23:13 11/17/22 10:17 Tramadol 50 Mg Tablet PO 50 mg Q6H PRN PRN Administration Pain Score 1-5 Problem List (Updated 11/17/22 @ 00:02 by Background Daemon) Hypokalemia (Acute) Diabetes mellitus (Acute) Debility (Acute) Chronic systolic congestive heart failure (Chronic) Depression (Acute) Seizure disorder (Acute) Coronary artery disease (Acute) Vital Signs Temp Pulse Resp BP Pulse Ox O2 Del Method 97.9 F 83 16 115/62 98 Room Air 11/16/22 15:44 11/17/22 06:08 11/16/22 15:44 11/17/22 06:08 11/16/22 15:44 11/16/22 15:44 Oxygen Delivery Method Room Air Weight: 71.327 kg Body Mass Index (BMI) 24.6 Sodium 143 mmol/L (136-145) 11/17/22 05:17 Potassium 3.8 mmol/L (3.5-5.1) 11/17/22 05:17 Chloride 110 mmol/L (98-107) H 11/17/22 05:17 Carbon Dioxide 29.0 mmol/L (21.0-32.0) 11/17/22 05:17 Anion Gap 4 (5-15) L 11/17/22 05:17 BUN 17 mg/dL (7-18) 11/17/22 05:17 Creatinine 0.78 mg/dL (0.55-1.02) 11/17/22 05:17 Est GFR (MDRD) Af Amer 91 mL/min (>60) 11/17/22 05:17 Est GFR (MDRD) Non-Af 75 mL/min (>60) 11/17/22 05:17 BUN/Creatinine Ratio 21.9 RATIO (10-20) H 11/17/22 05:17 Glucose 91 mg/dL (74-106) 11/17/22 05:17 Assessment/Plan: 1. Pain: acetaminophen 1000mg PO Q8, tramadol 50mg PO Q6H PRN pain 1-5 and oxycodone 5mg PO Q4H PRN pain 6-10. Please continue to monitor for increased pain, PRN usage, renal function, constipation and respiratory depression. Resident has received 6 doses of tramadol and 8 doses of oxycodone for pain scores of 6-9 in the shoulder/arm/thigh/hip. 2. Bowel: senna/docusate 2T PO BID and magnesium citrate 300mL PO x1 PRN constipation. Resident has not received any PRN doses. Please continue to monitor constipation and PRN usage. Last documented bowel movement 11/15. 3. DVT prophylaxis: aspirin 81mg PO BIDCM thru 12/08/22. Please continue to monitor for S/S of bleeding/DVT and hemoglobin (last 10.9g/dL). 4. CAD/atrial fibrillation/CHF: metoprolol succinate 25mg PO daily, aspirin 81mg PO DAILYCM (starting 12/09/22 after completion of BID for DVT prophylaxis), nitroglycerin 0.4mg SL Q5M PRN chest pain and furosemide 40mg PO BID. Please continue to monitor HR (last 83), BP (last 115/62), S/S of bleeding, chest pain, PRN usage, renal function and potassium (last 3.8mmol/L). Resident is not on anticoagulation for atrial fibrillation. Per discharge summary from 11/09/22, apixaban was discontinued on 10/05/22 for an unclear reason. Please consider restarting apixaban if clinically appropriate as the CHADS-VASc score is >3 (age, sex, history of CHF, vascular disease). Thanks. 5. GERD: famotidine 40mg PO BID. Please continue to monitor for renal function (CrCl 52 mL/min using IBW) and S/S of GERD. 6. Hypokalemia: potassium chloride 20mEq PO BIDCM. Please continue to monitor potassium. 7. Seizure disorder: lamotrigine 100mg PO BID. Please continue to monitor for rash (black box warning), falls/fractures (BEERs medication, resident presented with a fall) and drowsiness. 8. Insomnia: melatonin 3mg PO QHS. Please continue to monitor for excessive drowsiness. 9. Vitamin B12 and D deficiencies: cyanocobalamin 1000mcg PO daily and cholecalciferol 25mcg PO daily. Please consider ordering a vitamin B12 level as the last level is from 04/2018. Thanks. Please continue to monitor vitamin D levels (last 11/06/22). 10. Cecum impaction: Debrox 5gtt right ear BID thru 11/18/22. Please continue to monitor. Assessment/Plan for indications treated with psychotropic medications: 1. Depression: duloxetine 30mg PO daily. Please continue to monitor suicidal ideation (black box warning), falls/fractures (BEERs medication, presented with a fall), renal function (BEERs medication). See physician note regarding GDR. Medical chart and medication regimen reviewed. The following medication irregularities or issues were identified: *1. Atrial fibrillation: Resident is not on anticoagulation for atrial fibrillation. Per discharge summary from 11/09/22, apixaban was discontinued on 10/05/22 for an unclear reason. Please consider restarting apixaban if clinically appropriate as the CHADS-VASc score is >3 (age, sex, history of CHF, vascular disease). Thanks. *2. Cyanocobalamin 1000mcg PO daily. Please consider ordering a vitamin B12 level as the last level is from 04/2018. Thanks. Date Date of Note:: 11/17/22
[2022-11-17 14:33] VITALS: BP 125/71; PULSE 101; RESP 24; TEMP 36.1; O2SAT 97
[2022-11-17] MEDS: MELATONIN 3 MG TABLET PO (20:00)
[2022-11-17 20:41] VITALS: PULSE 94; RESP 16; O2SAT 98
[2022-11-18 05:15] VITALS: BP 128/65; PULSE 81
[2022-11-18] MEDS: lamoTRIgine 100 MG Tablet PO ×2 (05:15→16:59)
[2022-11-18] MEDS: Acetaminophen 500 MG Tablet 1000 MG PO ×3 (05:15→20:27)
[2022-11-18] MEDS: Famotidine 20 MG Tablet 40 MG PO ×2 (05:15→16:59)
[2022-11-18] MEDS: DULoxetine Hcl 30 MG Capsule PO (05:15)
[2022-11-18] MEDS: Metoprolol(XL)Succ 25 MG Tablet PO (05:15)
[2022-11-18] MEDS: Senna/Docusate Sodium 1 Tablet 2 TABLET PO ×2 (05:16→17:00)
[2022-11-18] MEDS: Furosemide 40 MG Tablet PO ×2 (05:16→14:15)
[2022-11-18] MEDS: Carbamide Peroxide 15 ML Bottle 5 DRP OTIC (05:27)
[2022-11-18] MEDS: Nystatin Powder 15gm Bottle 1 APPLIC TOPICAL ×2 (05:31→17:02)
[2022-11-18] MEDS: Potassium Chloride Oral Tablet 20 MEQ PO ×2 (08:31→16:59)
[2022-11-18] MEDS: Cyanocobalamin 500 MCG Tablet 1000 MCG PO (08:32)
[2022-11-18] MEDS: Cholecalciferol (VIT D3) 25 MCG TABLET (1,000 UNITS) PO (08:32)
[2022-11-18] MEDS: Aspirin 81 MG TAB.CHEW PO ×2 (08:32→16:59)
[2022-11-18] MEDS: oxyCODONE 5 MG Tablet PO ×2 (12:24→18:58)
[2022-11-18] MEDS: traMADol 50 MG Tablet PO (14:21)
[2022-11-18 15:58] VITALS: BP 101/49; PULSE 100; RESP 18; TEMP 36; O2SAT 97
--- NOTE | 2022-11-18 20:44 | NURSING ---
Patient's right ear flushed after debrox treatment. Was effective. Will continue to monitor.
[2022-11-19 05:49] VITALS: BP 115/74; PULSE 91
[2022-11-19] MEDS: Acetaminophen 500 MG Tablet 1000 MG PO ×3 (05:49→22:39)
[2022-11-19] MEDS: Metoprolol(XL)Succ 25 MG Tablet PO (05:49)
[2022-11-19] MEDS: DULoxetine Hcl 30 MG Capsule PO (05:50)
[2022-11-19] MEDS: lamoTRIgine 100 MG Tablet PO ×2 (05:50→17:07)
[2022-11-19] MEDS: Furosemide 40 MG Tablet PO ×2 (05:50→14:24)
[2022-11-19] MEDS: Famotidine 20 MG Tablet 40 MG PO ×2 (05:50→17:05)
[2022-11-19] MEDS: Senna/Docusate Sodium 1 Tablet 2 TABLET PO ×2 (05:50→17:05)
[2022-11-19] MEDS: Nystatin Powder 15gm Bottle 1 APPLIC TOPICAL ×2 (05:53→17:08)
[2022-11-19] MEDS: oxyCODONE 5 MG Tablet PO ×2 (06:28→19:47)
[2022-11-19] MEDS: Cyanocobalamin 500 MCG Tablet 1000 MCG PO (08:12)
[2022-11-19] MEDS: Potassium Chloride Oral Tablet 20 MEQ PO ×2 (08:12→17:07)
[2022-11-19] MEDS: Aspirin 81 MG TAB.CHEW PO ×3 (08:12→17:08)
[2022-11-19] MEDS: Cholecalciferol (VIT D3) 25 MCG TABLET (1,000 UNITS) PO (08:13)
--- NOTE | 2022-11-19 09:07 | MDS.RN ---
Information for the mds was obtained from review of the clinical record, interview of resident, staff, and direct observation of resident's care.
[2022-11-19 10:00] VITALS: PULSE 74; RESP 16; O2SAT 99
[2022-11-19 14:47] VITALS: BP 104/62; PULSE 83; RESP 16; TEMP 36.3; O2SAT 98
[2022-11-19] MEDS: MELATONIN 3 MG TABLET PO (22:39)
[2022-11-20] MEDS: Nystatin Powder 15gm Bottle 1 APPLIC TOPICAL ×2 (05:21→17:18)
[2022-11-20 05:22] VITALS: BP 117/63; PULSE 79
[2022-11-20] MEDS: Metoprolol(XL)Succ 25 MG Tablet PO (05:22)
[2022-11-20] MEDS: Acetaminophen 500 MG Tablet 1000 MG PO ×3 (05:22→21:50)
[2022-11-20] MEDS: Famotidine 20 MG Tablet 40 MG PO ×2 (05:23→17:17)
[2022-11-20] MEDS: lamoTRIgine 100 MG Tablet PO ×2 (05:23→17:18)
[2022-11-20] MEDS: Furosemide 40 MG Tablet PO ×2 (05:23→13:10)
[2022-11-20] MEDS: Senna/Docusate Sodium 1 Tablet 2 TABLET PO ×2 (05:23→17:17)
[2022-11-20] MEDS: DULoxetine Hcl 30 MG Capsule PO (05:24)
[2022-11-20] MEDS: Potassium Chloride Oral Tablet 20 MEQ PO ×2 (08:01→17:18)
[2022-11-20] MEDS: Aspirin 81 MG TAB.CHEW PO ×2 (08:01→17:17)
[2022-11-20] MEDS: Cyanocobalamin 500 MCG Tablet 1000 MCG PO (08:01)
[2022-11-20] MEDS: Cholecalciferol (VIT D3) 25 MCG TABLET (1,000 UNITS) PO (08:02)
[2022-11-20] MEDS: oxyCODONE 5 MG Tablet PO (13:10)
[2022-11-20 13:51] VITALS: BP 118/68; PULSE 93; RESP 18; TEMP 36.4; O2SAT 98
[2022-11-20] MEDS: traMADol 50 MG Tablet PO (18:11)
[2022-11-20] MEDS: MELATONIN 3 MG TABLET PO (21:51)
[2022-11-21] MEDS: Nystatin Powder 15gm Bottle 1 APPLIC TOPICAL ×2 (06:18→16:53)
[2022-11-21] MEDS: Acetaminophen 500 MG Tablet 1000 MG PO ×3 (06:19→20:10)
[2022-11-21] MEDS: Senna/Docusate Sodium 1 Tablet 2 TABLET PO ×2 (06:19→16:53)
[2022-11-21] MEDS: Famotidine 20 MG Tablet 40 MG PO ×2 (06:19→16:53)
[2022-11-21 06:20] VITALS: BP 129/70; PULSE 98
[2022-11-21] MEDS: lamoTRIgine 100 MG Tablet PO ×2 (06:20→16:53)
[2022-11-21] MEDS: DULoxetine Hcl 30 MG Capsule PO (06:20)
[2022-11-21] MEDS: Metoprolol(XL)Succ 25 MG Tablet PO (06:20)
[2022-11-21] MEDS: Furosemide 40 MG Tablet PO ×2 (06:21→14:33)
[2022-11-21] MEDS: Potassium Chloride Oral Tablet 20 MEQ PO ×2 (08:07→16:52)
[2022-11-21] MEDS: Aspirin 81 MG TAB.CHEW PO ×2 (08:07→16:52)
[2022-11-21] MEDS: Cholecalciferol (VIT D3) 25 MCG TABLET (1,000 UNITS) PO (08:07)
[2022-11-21] MEDS: Cyanocobalamin 500 MCG Tablet 1000 MCG PO (08:07)
[2022-11-21] MEDS: oxyCODONE 5 MG Tablet PO ×2 (13:22→18:22)
[2022-11-21 14:24] VITALS: BP 103/56; PULSE 90; RESP 22; TEMP 36.4; O2SAT 96
--- NOTE | 2022-11-21 18:33 | NURSING ---
pt tearful in bed after being up with walker to br. c\o my shoulder hurting so bad i dont know what to do oxy given and pt resting in bed now to see if helps
[2022-11-21] MEDS: MELATONIN 3 MG TABLET PO (20:09)
--- NOTE | 2022-11-21 21:55 | RAD_ITS ---
EXAM: XR LEFT SHOULDER COMPLETE, 2 OR MORE VIEWS CLINICAL INDICATION: Left shoulder pain TECHNIQUE: AP and scapular Y views. COMPARISON: November 06, 2022 shoulder, previous right shoulder views August 29, 2022, chest CT including most of the shoulders July 16, 2022 with degenerative changes of the shoulder.. FINDINGS: BONES/JOINTS: Mild hypertrophic changes at the inferior margin of the left AC joint. Mild narrowing of the subacromial space to roughly 5 mm, similar to prior exam. This may indicate rotator cuff impingement. No acute fracture. No subluxation. Normal alignment. No sclerotic or destructive changes observed. SOFT TISSUES: Unremarkable. No soft tissue swelling or gas. No radiopaque foreign body. RAD/Shoulder min 2 Views IMPRESSION: Degenerative changes. No fracture or dislocation. Electronically Signed: Gretta Guan MD at 23:32 EDT ,
[2022-11-21] MEDS: MethylPREDNISolone DosePak 4 MG BOX PO (22:06)
--- NOTE | 2022-11-22 01:29 | NURSING ---
Pt cont. to ref. padding for bed rails per seizure precautions.
[2022-11-22 05:46] VITALS: BP 118/59; PULSE 79
[2022-11-22] MEDS: Acetaminophen 500 MG Tablet 1000 MG PO ×3 (05:46→20:27)
[2022-11-22] MEDS: Famotidine 20 MG Tablet 40 MG PO ×2 (05:46→18:04)
[2022-11-22] MEDS: Furosemide 40 MG Tablet PO ×2 (05:46→13:21)
[2022-11-22] MEDS: DULoxetine Hcl 30 MG Capsule PO (05:46)
[2022-11-22] MEDS: Metoprolol(XL)Succ 25 MG Tablet PO (05:46)
[2022-11-22] MEDS: lamoTRIgine 100 MG Tablet PO ×2 (05:46→18:03)
[2022-11-22] MEDS: Senna/Docusate Sodium 1 Tablet 2 TABLET PO ×2 (05:47→18:04)
[2022-11-22] MEDS: Nystatin Powder 15gm Bottle 1 APPLIC TOPICAL (05:47)
--- NOTE | 2022-11-22 07:50 | US_ITS ---
STUDY: SUPERFICIAL ULTRASOUND - PALPABLE LUMP OVERLYING THE LEFT HIP INCISION. REASON FOR EXAM: Female, 82 years old. Bulge above left hip incision. TECHNIQUE: A superficial ultrasound was performed with real-time and static adair-scale imaging. COMPARISON: None. FINDINGS: The palpable abnormality corresponds to a 10.5 cm x 6.9 cm x 3.1 cm fluid collection. US/Ext Non Vasc Limited/Soft Tiss IMPRESSION: Findings suggestive of a 10.5 cm x 6.9 cm x 3.1 cm postoperative seroma overlying the incision in the left hip region. Electronically Signed: Amol Hannon MD at 12:33 EDT ,
[2022-11-22] MEDS: Cyanocobalamin 500 MCG Tablet 1000 MCG PO (08:30)
[2022-11-22] MEDS: Aspirin 81 MG TAB.CHEW PO ×2 (08:30→18:03)
[2022-11-22] MEDS: Cholecalciferol (VIT D3) 25 MCG TABLET (1,000 UNITS) PO (08:30)
[2022-11-22] MEDS: Potassium Chloride Oral Tablet 20 MEQ PO ×2 (08:30→18:03)
[2022-11-22] MEDS: MethylPREDNISolone DosePak 4 MG BOX PO ×4 (08:30→20:27)
[2022-11-22] MEDS: oxyCODONE 5 MG Tablet PO (10:54)
[2022-11-22] MEDS: traMADol 50 MG Tablet PO (13:06)
[2022-11-22 13:56] VITALS: BP 101/73; PULSE 108; RESP 15; TEMP 36.5; O2SAT 97
--- NOTE | 2022-11-22 14:33 | NURSING ---
Continue to report 10/10 left shoulder pain. Some relief noted with ice and PRN pain medication. Dr. Whitlock made aware of continued pain and request for further imaging.
--- NOTE | 2022-11-22 14:35 | NURSING ---
Bulged, fluid filled area noted above left hip incision. No pain noted on palpation. Dr. Whitlock made aware and US ordered for 1000.
[2022-11-22 20:00] VITALS: PULSE 91; RESP 16; O2SAT 97
[2022-11-22] MEDS: MELATONIN 3 MG TABLET PO (20:28)
[2022-11-23] MEDS: Senna/Docusate Sodium 1 Tablet 2 TABLET PO ×2 (06:05→17:57)
[2022-11-23] MEDS: Acetaminophen 500 MG Tablet 1000 MG PO ×3 (06:05→20:52)
[2022-11-23] MEDS: Famotidine 20 MG Tablet 40 MG PO ×2 (06:05→17:57)
[2022-11-23] MEDS: Nystatin Powder 15gm Bottle 1 APPLIC TOPICAL ×2 (06:06→17:55)
[2022-11-23] MEDS: Furosemide 40 MG Tablet PO ×2 (06:06→12:35)
[2022-11-23] MEDS: DULoxetine Hcl 30 MG Capsule PO (06:06)
[2022-11-23] MEDS: lamoTRIgine 100 MG Tablet PO ×2 (06:06→17:56)
[2022-11-23 06:16] VITALS: BP 119/83; PULSE 102
[2022-11-23] MEDS: Metoprolol(XL)Succ 25 MG Tablet PO (06:16)
[2022-11-23] MEDS: Cyanocobalamin 500 MCG Tablet 1000 MCG PO (08:01)
[2022-11-23] MEDS: Potassium Chloride Oral Tablet 20 MEQ PO ×2 (08:01→17:55)
[2022-11-23] MEDS: Cholecalciferol (VIT D3) 25 MCG TABLET (1,000 UNITS) PO (08:01)
[2022-11-23] MEDS: Aspirin 81 MG TAB.CHEW PO ×2 (08:02→17:56)
[2022-11-23] MEDS: MethylPREDNISolone DosePak 4 MG BOX PO ×4 (08:02→20:49)
[2022-11-23 11:18] VITALS: BMI 24.5
[2022-11-23 14:49] VITALS: BP 112/67; PULSE 72; RESP 16; TEMP 36.3; O2SAT 98
[2022-11-23 20:37] VITALS: PULSE 86; RESP 16; O2SAT 98
[2022-11-23] MEDS: MELATONIN 3 MG TABLET PO (20:52)
[2022-11-23] MEDS: oxyCODONE 5 MG Tablet PO (22:42)
[2022-11-24 05:04] VITALS: BP 109/66; PULSE 81
[2022-11-24] MEDS: lamoTRIgine 100 MG Tablet PO ×2 (05:04→17:26)
[2022-11-24] MEDS: Famotidine 20 MG Tablet 40 MG PO ×2 (05:04→17:26)
[2022-11-24] MEDS: DULoxetine Hcl 30 MG Capsule PO (05:04)
[2022-11-24] MEDS: Furosemide 40 MG Tablet PO ×2 (05:04→14:57)
[2022-11-24] MEDS: Metoprolol(XL)Succ 25 MG Tablet PO (05:04)
[2022-11-24] MEDS: Nystatin Powder 15gm Bottle 1 APPLIC TOPICAL ×2 (05:05→17:27)
[2022-11-24] MEDS: Acetaminophen 500 MG Tablet 1000 MG PO ×3 (05:05→21:58)
[2022-11-24] MEDS: Senna/Docusate Sodium 1 Tablet 2 TABLET PO ×2 (05:05→17:26)
[2022-11-24 05:39] LABS: Absolute Lymphocyte Count 1.57 X10^3/uL (0.83-4.51); Absolute Neutrophil Count 7.5 X10^3/uL (2.0-7.7); Basophil# 0.05 X10^3/uL; Basophil% 0.5 % (0-1); Eosinophil# 0.01 X10^3/uL; Eosinophils% 0.1 % (0-5); Hematocrit 35.5 % (37-47); Hemoglobin 11.1 g/dL (12.0-15.0); Lymphocyte # 1.57 X10^3/ul (0.83-4.51); Lymphocyte % 16.3 % (19-41); Mean Corp Hgb Conc 31.3 g/dL (32-36); Mean Corpuscular Hgb 32.2 pg (27.0-32.0); Mean Corpuscular Volume 102.9 fL (81-99); Mean Platelet Vol. 9.4 fl (6.2-12.0); Monocyte# 0.45 X10^3/uL; Monocyte% 4.7 % (0-10); NRBC Flagged by Analyzer 0 % (0-5); Neutrophil # 7.53 X10^3/uL (2.7-7.7); Platelet Count 432 K/mm3 (150-450); RBC Distribution Width CV 14.1 % (11.6-14.6); RBC Distribution Width SD 53.1 fl (35.1-43.9); Red Blood Count 3.45 M/mm3 (4.2-5.4); White Blood Count 9.7 K/mm3 (4.4-11.0)
[2022-11-24 06:02] LABS: Anion Gap 3 (5-15); BUN 24 mg/dL (7-18); BUN/Creat Ratio 30.7 RATIO (10-20); Calcium,Total 8.9 mg/dL (8.5-10.1); Chloride 105 mmol/L (98-107); Creatinine, Serum 0.78 mg/dL (0.55-1.02); EST Glomerular Filtration Rate 74 mL/min (>60); Est Glom Filt Rate - Afr Amer 90 mL/min (>60); Estimated Creatinine Clearance 40.72 ml/min; Glucose 123 mg/dL (74-106); Potassium 4.4 mmol/L (3.5-5.1); Sodium Level 139 mmol/L (136-145)
--- NOTE | 2022-11-24 07:41 | NURSING ---
Results of US faxed to Dr. Bone for review.
[2022-11-24] MEDS: Cyanocobalamin 500 MCG Tablet 1000 MCG PO (08:31)
[2022-11-24] MEDS: MethylPREDNISolone DosePak 4 MG BOX PO ×3 (08:31→21:57)
[2022-11-24] MEDS: Aspirin 81 MG TAB.CHEW PO ×2 (08:31→17:26)
[2022-11-24] MEDS: Potassium Chloride Oral Tablet 20 MEQ PO ×2 (08:31→17:26)
[2022-11-24] MEDS: Cholecalciferol (VIT D3) 25 MCG TABLET (1,000 UNITS) PO (08:32)
[2022-11-24] MEDS: oxyCODONE 5 MG Tablet PO (13:13)
--- NOTE | 2022-11-24 14:23 | CASEMGMT ---
Addendum entered by Char Sosa 11/24/22 14:44: SW updated [facility] of DC date. Original Note: Social Work IDT set DC date for 11/30. SW phoned to update on DC date. is agreeable and would like to use [facility] as pt used them prior. No DME needs. to transport. SW phoned referral to [facility] for PT/OT/ST. Plan: DC home with 11/30, [facility] PT/OT/ST Char Sosa, LULY MATAW
[2022-11-24 16:00] VITALS: BP 102/62; PULSE 85; RESP 16; TEMP 35.7; O2SAT 96
--- NOTE | 2022-11-24 19:46 | DS.PCM_ITS ---
Providers Date of Admission: 11/09/22 Primary Care Physician: Dr. Nahomy Bettencourt MD Reason For Visit: LEFT HIP FRACTURE Diagnosis Discharge Diagnosis (1) Debility: Status: Acute Code(s): R53.81 - Other malaise (2) Closed left hip fracture: Status: Resolved Code(s): S72.002A - Fracture of unspecified part of neck of left femur, initial encounter for closed fracture (3) Left shoulder pain: Status: Resolved Code(s): M25.512 - Pain in left shoulder (4) Atrial fibrillation: Status: Inactive Code(s): I48.91 - Unspecified atrial fibrillation (5) Depression: Status: Acute Code(s): F32.A - Depression, unspecified (6) Chronic systolic congestive heart failure: Status: Chronic Code(s): I50.22 - Chronic systolic (congestive) heart failure (7) Coronary artery disease: Status: Acute Code(s): I25.10 - Atherosclerotic heart disease of [place] coronary artery without angina pectoris (8) Seizure disorder: Status: Acute Code(s): G40.909 - Epilepsy, unspecified, not intractable, without status epilepticus (9) Diabetes mellitus: Status: Acute Code(s): E11.9 - Type 2 diabetes mellitus without complications (10) Hypokalemia: Status: Acute Code(s): E87.6 - Hypokalemia Plan 82 year old female with below past medical history hospitalized for left hip fracture, underwent left hip hemiarthroplasty 11/08/[address] Bone, admitted to TCU with debility, here for rehabilitation, strengthening, prior to discharge home with . * Debility - PT/OT. * Pain - Tylenol 1000mg q8, Tramadol 50mg q6h prn pain (1-5), Oxycodone 5mg q4h prn pain (6-10). * Bowel - senna/colace 2 tablets bid, Magnesium citrate 300ml po x 1 prn. * Adult immunization - Administer pneumonia vaccine, covid19 vaccine, flu vaccine as appropriate. * DVT prophylaxis - Aspirin 81mg bid thru 12/08/2022. * Coronary artery disease - Metoprolol succinate 25mg daily, Aspirin 81mg daily, NTG 0.4mg sl q5m prn. * Atrial fibrillation - Metoprolol succinate 25mg daily, Aspirin 81mg daily. * Vitamin B12 deficiency - B12 1000mcg daily. * Depression - Duloxetine 30mg daily, stable chronic skilled nursing use, GDR not recommended. * GERD - Famotidine 40mg bid. * Chronic systolic congestive heart failure (EF 25%) - Metoprolol succinate 25mg daily, Furosemide 40mg bid. * Seizure disorder - Lamictal 100mg bid. * Insomnia - Melatonin 3mg qhs. * Tinea Corporis - Nystatin topical bid. * Hypokalemia - KCL 20meq bid. * Vitamin D deficiency - D3 25mcg daily. Medications at Discharge Home Medications duloxetine 30 mg capsule,delayed release 30 mg PO DAILY NEUROPATHY 09/22/20 nitroglycerin 0.4 mg sublingual tablet 0.4 mg sublingual Q5M PRN Cardiac/Chest Pain #0 tabs 06/11/22 cyanocobalamin (vitamin B-12) 1,000 mcg tablet (Vitamin B-12) 1,000 mcg PO DAILY supplement 08/10/22 famotidine 40 mg tablet 40 mg PO BID stomach 08/10/22 furosemide 40 mg tablet 40 mg PO BID Diuretic 08/10/22 melatonin 3 mg tablet 3 mg PO HS sleep 08/10/22 diltiazem HCl 120 mg capsule,extended release 24 hr (Cartia XT) 120 mg PO BID heart 08/29/22 metoprolol succinate 25 mg tablet,extended release 24 hr 25 mg PO DAILY blood pressure 08/30/22 acetaminophen 500 mg tablet 1,000 mg (2 x 500 mg) PO Q6H PRN PRN Pain Score 1-10 #0 tabs 09/17/22 cholecalciferol (vitamin D3) 25 mcg (1,000 unit) tablet (Vitamin D3) 25 mcg PO DAILY Supplement 11/06/22 aspirin 81 mg chewable tablet 81 mg PO BIDCM Heart 11/09/22 lamotrigine 100 mg tablet 100 mg PO BID Seizures 11/09/22 potassium chloride 20 mEq tablet,extended release(part/cryst) (Klor-Con M) 20 meq PO BIDCM Supplement 11/09/22 Lactobac. rhamnosus GG-inulin [[facility]] 1 cap PO DAILY PRN ##0 11/24/22 oxycodone 5 mg tablet 5 mg PO Q4H PRN PRN Pain Score 6-10 7 days #28 tabs 11/24/22 Hospital Course Operations - (Left hip hemiarthroplasty.) Procedures None Summary of Care Provided Minutes Spent on Discharge: 35 Hospital Course: 82 year old female with below past medical history hospitalized for left hip fracture, underwent left hip hemiarthroplasty 11/08/[address] Bone, admitted to TCU with debility, here for rehabilitation, strengthening, prior to discharge home with . 11/22/2022 ultrasound showed left hip seroma. Discharge home with 11/30/2022, [facility] PT/OT/ST, [facility] Palliative. Physical Exam Const alert General Appearance: cooperative HEENT normocephalic Eyes PERRL and EOMs intact bilaterally Neck supple, no JVD and no carotid bruits Resp normal respiratory effort, normal air movement and clear to auscultation bilaterally Cardio regular rate and regular rhythm GI normal to inspection, nondistended, normoactive bowel sounds, non-tender and non-distended Extremity normal capillary refill General Extremity: Negative for edema Skin no rashes or lesions noted General Skin Exam: no breakdown Psych affect normal Appearance: appropriate Weight / BMI Weight Weight: 71.072 kg Body Mass Index (BMI) 24.5 ABG / Lab / Microbiology Data 11/24/22 05:27 11/24/22 05:27 Laboratory: Laboratory Results - last 24 hr 11/24/22 05:27: WBC 9.7, RBC 3.45 L, Hgb 11.1 L, Hct 35.5 L, MCV 102.9 H, MCH 32.2 H, MCHC 31.3 L, RDW Std Deviation 53.1 H, RDW Coeff of Robert 14.1, Plt Count 432, MPV 9.4, Immature Gran % (Auto) 0.400, Neut % (Auto) 78.0 H, Lymph % (Auto) 16.3 L, [place] % (Auto) 4.7, Eos % (Auto) 0.1, Baso % (Auto) 0.5, Absolute Neuts (auto) 7.5, Absolute Lymphs (auto) 1.57, Nucleated RBC % 0, Sodium 139, Pota ssium 4.4, Chloride 105, Carbon Dioxide 31.0, Anion Gap 3 L, BUN 24 H, Creatinine 0.78, Estim Creat Clear Calc 40.72, Est GFR (MDRD) Af Amer 90, Est GFR (MDRD) Non-Af 74, BUN/Creatinine Ratio 30.7 H, Glucose 123 H, Calcium 8.9 D/C Instructions Discharge Diet: No restrictions Discharge Activity: Return to Normal Activity, May Shower and Use Walker Weight Bearing Status: Weight bearing as tolerated Call your doctor if you observe: Fever of 101 or Higher, Inability to urinate, Inability to have a bowel movement, Shortness of breath, Dizziness, Fainting spells, Swelling in the ankles, Chest pain and Uncontrolled pain Additional Instructions: Discharge home with 11/30/2022, [facility] PT/OT/ST, [facility] Palliative. Please Follow Up With: MD Lizandro (Will see TRUDY Schrader) When: As scheduled. Meaningful Use Info Meaningful Use Diagnoses (Choose all that apply): None applicable Discharge Plan Admission Admit Date/Time: 11/09/22 17:20 Primary Reason for Your Visit: Debility. Attending Provider: Arsenio Pride Chi Primary Care Provider: Nahomy Bettencourt Instructions Additional Instructions / Restrictions: Discharge home with 11/30/2022, [facility] PT/OT/ST, [facility] Palliative. Discharge Orders/Prescriptions Prescriptions: New oxycodone 5 mg Tablet 5 mg PO Q4H PRN PRN (Reason: Pain Score 6-10) 7 Days Qty: 28 0RF Lactobac. Rhamnosus Gg-Inulin [[facility]] 1 cap PO DAILY PRNQty: 0 0RF Continued duloxetine 30 mg capsule,delayed release(DR/EC) 30 mg PO DAILY furosemide 40 mg tablet 40 mg PO BID Rx Instructions: AM AND 1400 famotidine 40 mg tablet 40 mg PO BID melatonin 3 mg tablet 3 mg PO HS cyanocobalamin (vitamin B-12) [Vitamin B-12] 1,000 mcg tablet 1,000 mcg PO DAILY nitroglycerin 0.4 mg Tablet, Sublingual 0.4 mg sublingual Q5M PRN (Reason: Cardiac/Chest Pain) Qty: 0 0RF diltiazem HCl [Cartia XT] 120 mg capsule,extended release 24hr 120 mg PO BID metoprolol succinate 25 mg tablet extended release 24 hr 25 mg PO DAILY acetaminophen 500 mg Tablet 1,000 mg PO Q6H PRN PRN (Reason: Pain Score 1-10) Qty: 0 0RF cholecalciferol (vitamin D3) [Vitamin D3] 25 mcg (1,000 unit) Tablet 25 mcg PO DAILY potassium chloride [Klor-Con M20] 20 mEq tablet,ER particles/crystals 20 meq PO BIDCM aspirin 81 mg tablet,chewable 81 mg PO BIDCM lamotrigine 100 mg tablet 100 mg PO BID Discontinued [facility] 10 billion cell -200 mg capsule 1 cap PO DAILY PRN (Reason: [facility]) aspirin 81 mg Capsule 81 mg PO DAILY Hold Instructions: Resume on 12/09/22. tramadol 50 mg Tablet 50 mg PO Q6H PRN PRN (Reason: Pain Score 4-10) 3 Days Qty: 12 0RF nystatin [Nyamyc] 100,000 unit/gram powder 1 applic topical BID Protocol: *Topical Application Instructions APPLICATION INSTRUCTIONS: ABD FOLDS Referrals / Follow Up: Nahomy Bettencourt MD [Primary Care Provider] - 12/07/22 3:20 pm Disposition Disposition (needs filled in before D/C Order can be placed): Home Health Service
[2022-11-24] MEDS: MELATONIN 3 MG TABLET PO (21:58)
[2022-11-25] MEDS: Nystatin Powder 15gm Bottle 1 APPLIC TOPICAL ×2 (05:42→18:01)
[2022-11-25 05:44] VITALS: BP 123/72; PULSE 81
[2022-11-25] MEDS: Furosemide 40 MG Tablet PO ×2 (05:44→14:40)
[2022-11-25] MEDS: Senna/Docusate Sodium 1 Tablet 2 TABLET PO ×2 (05:44→18:01)
[2022-11-25] MEDS: Famotidine 20 MG Tablet 40 MG PO ×2 (05:44→18:00)
[2022-11-25] MEDS: DULoxetine Hcl 30 MG Capsule PO (05:44)
[2022-11-25] MEDS: lamoTRIgine 100 MG Tablet PO ×2 (05:44→18:00)
[2022-11-25] MEDS: Metoprolol(XL)Succ 25 MG Tablet PO (05:44)
[2022-11-25] MEDS: Acetaminophen 500 MG Tablet 1000 MG PO ×3 (05:45→21:41)
[2022-11-25] MEDS: Magnesium Citrate 300 ML PO (05:51)
[2022-11-25] MEDS: Cholecalciferol (VIT D3) 25 MCG TABLET (1,000 UNITS) PO (08:08)
[2022-11-25] MEDS: MethylPREDNISolone DosePak 4 MG BOX PO ×2 (08:08→21:41)
[2022-11-25] MEDS: Potassium Chloride Oral Tablet 20 MEQ PO ×2 (08:08→18:01)
[2022-11-25] MEDS: Cyanocobalamin 500 MCG Tablet 1000 MCG PO (08:08)
[2022-11-25] MEDS: Aspirin 81 MG TAB.CHEW PO ×2 (08:08→18:01)
[2022-11-25 10:00] VITALS: PULSE 74; RESP 18; O2SAT 99
[2022-11-25 14:47] VITALS: BP 116/65; PULSE 89
[2022-11-25 16:00] VITALS: BP 108/53; PULSE 104; RESP 16; TEMP 35.8; O2SAT 98
--- NOTE | 2022-11-25 16:00 | NURSING ---
LBM 11/22/22 stool seen in pt's rectum and having difficulty having a bowel movement. Dr. Pride updated N.O. for SSE.
[2022-11-25] MEDS: MELATONIN 3 MG TABLET PO (21:41)
[2022-11-26] MEDS: Famotidine 20 MG Tablet 40 MG PO ×2 (05:06→17:37)
[2022-11-26] MEDS: DULoxetine Hcl 30 MG Capsule PO (05:06)
[2022-11-26 05:07] VITALS: BP 124/70; PULSE 98
[2022-11-26] MEDS: Metoprolol(XL)Succ 25 MG Tablet PO (05:07)
[2022-11-26] MEDS: Acetaminophen 500 MG Tablet 1000 MG PO ×3 (05:07→21:23)
[2022-11-26] MEDS: Furosemide 40 MG Tablet PO ×2 (05:07→13:09)
[2022-11-26] MEDS: Senna/Docusate Sodium 1 Tablet 2 TABLET PO ×2 (05:07→17:37)
[2022-11-26] MEDS: lamoTRIgine 100 MG Tablet PO ×2 (05:07→17:37)
[2022-11-26] MEDS: Nystatin Powder 15gm Bottle 1 APPLIC TOPICAL ×2 (05:08→17:38)
[2022-11-26] MEDS: Cholecalciferol (VIT D3) 25 MCG TABLET (1,000 UNITS) PO (07:53)
[2022-11-26] MEDS: Cyanocobalamin 500 MCG Tablet 1000 MCG PO (07:53)
[2022-11-26] MEDS: Aspirin 81 MG TAB.CHEW PO ×2 (07:54→17:38)
[2022-11-26] MEDS: Potassium Chloride Oral Tablet 20 MEQ PO ×2 (07:54→17:37)
[2022-11-26] MEDS: MethylPREDNISolone DosePak 4 MG BOX PO (07:54)
[2022-11-26 07:59] VITALS: PULSE 95; RESP 16; O2SAT 97
[2022-11-26 14:21] VITALS: BP 100/43; PULSE 97; RESP 24; TEMP 36.2; O2SAT 95
[2022-11-26] MEDS: MELATONIN 3 MG TABLET PO (21:23)
[2022-11-27] MEDS: oxyCODONE 5 MG Tablet PO ×2 (00:04→20:15)
[2022-11-27 05:36] VITALS: BP 121/57; PULSE 93; RESP 16; TEMP 36.4; O2SAT 94
[2022-11-27 05:39] VITALS: BP 121/57; PULSE 93
[2022-11-27] MEDS: Metoprolol(XL)Succ 25 MG Tablet PO (05:39)
[2022-11-27] MEDS: Senna/Docusate Sodium 1 Tablet 2 TABLET PO ×2 (05:39→17:54)
[2022-11-27] MEDS: Acetaminophen 500 MG Tablet 1000 MG PO ×3 (05:39→20:31)
[2022-11-27] MEDS: lamoTRIgine 100 MG Tablet PO ×2 (05:40→17:55)
[2022-11-27] MEDS: Famotidine 20 MG Tablet 40 MG PO ×2 (05:40→17:54)
[2022-11-27] MEDS: Furosemide 40 MG Tablet PO ×2 (05:40→13:45)
[2022-11-27] MEDS: DULoxetine Hcl 30 MG Capsule PO (05:40)
[2022-11-27] MEDS: Cholecalciferol (VIT D3) 25 MCG TABLET (1,000 UNITS) PO (08:25)
[2022-11-27] MEDS: Potassium Chloride Oral Tablet 20 MEQ PO ×2 (08:25→17:55)
[2022-11-27] MEDS: Aspirin 81 MG TAB.CHEW PO ×2 (08:26→17:55)
[2022-11-27] MEDS: Cyanocobalamin 500 MCG Tablet 1000 MCG PO (08:26)
[2022-11-27 15:13] VITALS: BP 131/41; PULSE 106; RESP 14; TEMP 36.4; O2SAT 97
[2022-11-27] MEDS: Nystatin Powder 15gm Bottle 1 APPLIC TOPICAL (17:55)
[2022-11-27] MEDS: MELATONIN 3 MG TABLET PO (20:32)
[2022-11-27 20:33] VITALS: PULSE 88; RESP 18; O2SAT 97
[2022-11-28 07:02] VITALS: BP 120/68; PULSE 64
[2022-11-28] MEDS: Metoprolol(XL)Succ 25 MG Tablet PO (07:02)
[2022-11-28] MEDS: Famotidine 20 MG Tablet 40 MG PO ×2 (07:02→16:59)
[2022-11-28] MEDS: Senna/Docusate Sodium 1 Tablet 2 TABLET PO ×2 (07:02→16:58)
[2022-11-28] MEDS: DULoxetine Hcl 30 MG Capsule PO (07:03)
[2022-11-28] MEDS: Furosemide 40 MG Tablet PO ×2 (07:03→13:54)
[2022-11-28] MEDS: lamoTRIgine 100 MG Tablet PO ×2 (07:03→16:59)
[2022-11-28] MEDS: Acetaminophen 500 MG Tablet 1000 MG PO ×3 (07:04→21:09)
[2022-11-28] MEDS: Nystatin Powder 15gm Bottle 1 APPLIC TOPICAL ×2 (07:06→16:59)
[2022-11-28] MEDS: Cholecalciferol (VIT D3) 25 MCG TABLET (1,000 UNITS) PO (07:33)
[2022-11-28] MEDS: Potassium Chloride Oral Tablet 20 MEQ PO ×2 (07:33→16:58)
[2022-11-28] MEDS: Cyanocobalamin 500 MCG Tablet 1000 MCG PO (07:33)
[2022-11-28] MEDS: Aspirin 81 MG TAB.CHEW PO ×2 (07:33→16:59)
--- NOTE | 2022-11-28 09:58 | NURSING ---
COMPRESSED GASES TESTER came and got this nurse, stating that patient was using the restroom and states that she feels like she is going to pass out. This nurse went in and assessed patient, vital signs stable denies headache or vision changes, denies any other symptoms. Patient was walked back to bed with assist of 2 and is now sleeping comfortably. Will continue to monitor.
[2022-11-28 16:00] VITALS: BP 110/59; PULSE 77; RESP 16; TEMP 36.4; O2SAT 95
[2022-11-28] MEDS: oxyCODONE 5 MG Tablet PO ×2 (18:38→23:03)
[2022-11-28] MEDS: traMADol 50 MG Tablet PO (20:06)
[2022-11-28] MEDS: MELATONIN 3 MG TABLET PO (20:07)
[2022-11-29] MEDS: oxyCODONE 5 MG Tablet PO (03:18)
[2022-11-29] MEDS: Nystatin Powder 15gm Bottle 1 APPLIC TOPICAL ×2 (05:10→17:15)
[2022-11-29] MEDS: Famotidine 20 MG Tablet 40 MG PO ×2 (05:11→17:15)
[2022-11-29 05:12] VITALS: BP 109/57; PULSE 70
[2022-11-29] MEDS: Acetaminophen 500 MG Tablet 1000 MG PO ×3 (05:12→21:34)
[2022-11-29] MEDS: DULoxetine Hcl 30 MG Capsule PO (05:12)
[2022-11-29] MEDS: Furosemide 40 MG Tablet PO ×2 (05:12→14:11)
[2022-11-29] MEDS: Metoprolol(XL)Succ 25 MG Tablet PO (05:12)
[2022-11-29] MEDS: Senna/Docusate Sodium 1 Tablet 2 TABLET PO ×2 (05:14→17:14)
[2022-11-29] MEDS: lamoTRIgine 100 MG Tablet PO ×2 (05:14→17:15)
[2022-11-29] MEDS: Aspirin 81 MG TAB.CHEW PO ×2 (07:57→17:14)
[2022-11-29] MEDS: Potassium Chloride Oral Tablet 20 MEQ PO ×2 (07:57→17:15)
[2022-11-29] MEDS: Cyanocobalamin 500 MCG Tablet 1000 MCG PO (07:57)
[2022-11-29] MEDS: Cholecalciferol (VIT D3) 25 MCG TABLET (1,000 UNITS) PO (07:57)
[2022-11-29 13:52] VITALS: BP 116/66; PULSE 99; RESP 16; TEMP 36.4; O2SAT 92
[2022-11-29] MEDS: Magnesium Citrate 300 ML PO (14:14)
[2022-11-29] MEDS: MELATONIN 3 MG TABLET PO (21:34)
[2022-11-29] MEDS: Carbamide Peroxide 15 ML Bottle 5 DRP OTIC (21:43)
[2022-11-29 21:45] VITALS: PULSE 70; RESP 16; O2SAT 96
[2022-11-30] MEDS: Acetaminophen 500 MG Tablet 1000 MG PO (05:23)
[2022-11-30] MEDS: Furosemide 40 MG Tablet PO (05:23)
[2022-11-30] MEDS: Famotidine 20 MG Tablet 40 MG PO (05:23)
[2022-11-30] MEDS: Senna/Docusate Sodium 1 Tablet 2 TABLET PO (05:23)
[2022-11-30 05:24] VITALS: BP 106/67; PULSE 88
[2022-11-30] MEDS: Metoprolol(XL)Succ 25 MG Tablet PO (05:24)
[2022-11-30] MEDS: lamoTRIgine 100 MG Tablet PO (05:24)
[2022-11-30] MEDS: Carbamide Peroxide 15 ML Bottle 5 DRP OTIC (05:24)
[2022-11-30] MEDS: DULoxetine Hcl 30 MG Capsule PO (05:24)
[2022-11-30] MEDS: Nystatin Powder 15gm Bottle 1 APPLIC TOPICAL (05:25)
[2022-11-30] MEDS: oxyCODONE 5 MG Tablet PO (05:26)
--- NOTE | 2022-11-30 06:43 | NURSING ---
Pt off the unit for MRI.
[2022-11-30] MEDS: Potassium Chloride Oral Tablet 20 MEQ PO (07:47)
[2022-11-30] MEDS: Aspirin 81 MG TAB.CHEW PO (07:47)
[2022-11-30] MEDS: Cyanocobalamin 500 MCG Tablet 1000 MCG PO (07:48)
[2022-11-30] MEDS: Cholecalciferol (VIT D3) 25 MCG TABLET (1,000 UNITS) PO (07:50)
--- NOTE | 2022-11-30 10:33 | CASEMGMT ---
Social Work BIMS () and PHQ-9 () completed for MDS assessment. 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
[2022-11-30 10:34] VITALS: BP 109/72; PULSE 91; RESP 17; TEMP 36.6; O2SAT 94
== END 2022-11-30 10:43 | disposition home health service (06) | DRG 560 ==
PROVIDERS: Admitting Provider Family Medicine Geriatric Medicine; PCP Family Medicine; Visit Provider Family Medicine Geriatric Medicine
DX: S72.002D Fracture of unspecified part of neck of left femur, subsequent encounter for closed fracture with routine healing (principal); I42.9 Cardiomyopathy, unspecified; I50.22 Chronic systolic (congestive) heart failure; E11.42 Type 2 diabetes mellitus with diabetic polyneuropathy; E55.9 Vitamin D deficiency, unspecified; E53.8 Deficiency of other specified B group vitamins; B35.4 Tinea corporis; I48.0 Paroxysmal atrial fibrillation; G40.909 Epilepsy, unspecified, not intractable, without status epilepticus; I11.0 Hypertensive heart disease with heart failure; E87.6 Hypokalemia; I25.10 Atherosclerotic heart disease of native coronary artery without angina pectoris; W19.XXXD Unspecified fall, subsequent encounter; F32.A Depression, unspecified; M75.122 Complete rotator cuff tear or rupture of left shoulder, not specified as traumatic; K21.9 Gastro-esophageal reflux disease without esophagitis; Z87.891 Personal history of nicotine dependence; Z79.82 Long term (current) use of aspirin; Z79.899 Other long term (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; Z96.642 Presence of left artificial hip joint
CPT/HCPCS: 36415; 73030; 76882; 80048; 82962; 85025; 92507; 92523; 93005; 97110; 97116; 97129; 97130; 97162; 97166; 97530; 97535; 97802

== ENCOUNTER → 2022-11-25 | Outpatient (CLI) | payer MEDICARE, OTHER, SELFPAY | END | disposition home or self-care (01) | LOC: CVS 12:48 | PROVIDERS: PCP Family Medicine; Referring Provider Physician Assistant Medical; Visit Provider Physician Assistant Medical | DX: Z00.00 Encounter for general adult medical examination without abnormal findings (principal) ==

== ENCOUNTER → 2022-11-30 | Outpatient (CLI) | payer MEDICARE, OTHER, SELFPAY ==
--- NOTE | 2022-11-30 06:40 | MRI_ITS ---
STUDY: MRI LEFT SHOULDER REASON FOR EXAM: Female, 82 years old. FALL/PAIN TECHNIQUE: Standardized fat and water weighted pulse sequences were obtained in all 3 orthogonal planes. COMPARISON: Left shoulder x-ray dated October 22, 2022 FINDINGS: There are large full-thickness tears of the supraspinatus and infraspinatus tendons. The supraspinatus tendon is retracted 3.99 cm proximal to the greater tuberosity. The humeral head is high riding abutting the undersurface of the acromium due to full thickness tears. A moderate to large size joint effusion is also present with a small amount of fluid communicating into the subacromial and subdeltoid bursal regions. The intracapsular aspect elongated biceps tendon is also completely torn and retracted. There is a 360 degree labral tear with partial detachment of the labrum as well. There is subscapularis tendinosis with tendon thickening, but without a demonstrated tendon tear. Normal teres minor tendon. There is severe muscular atrophy of the supraspinatus muscle. There is severe muscular atrophy of the infraspinatus muscle. Normal subscapularis muscle. There is mild muscular atrophy of the teres minor muscle. Normal capsulo- ligamentous complex. Normal rotator interval. There is moderate osteoarthritis of the acromioclavicular articulations. There is a Type II morphology (curved), with a neutral orientation. Normal visualized coracohumeral and coracoacromial ligaments. Normal quadrilateral space. Normal axillary space. Normal deltoid muscle. Normal trapezius muscle. MRI/Upper Ext Joint Only(Routine) IMPRESSION: 1. Large full-thickness tears of the supraspinatus, infraspinatus, and long head of biceps tendons 2. 360 degree labral tear with partial detachment. Electronically Signed: Michael Roth MD at 10:20 EDT ,
== END | disposition home or self-care (01) ==
LOC: MRI 06:50
PROVIDERS: PCP Family Medicine; Referring Provider Family Medicine Geriatric Medicine; Visit Provider Family Medicine Geriatric Medicine
DX: M25.512 Pain in left shoulder (principal)
CPT/HCPCS: 73221

== ENCOUNTER 2022-12-12 05:33 | Emergency (ER) | payer MEDICARE, OTHER, SELFPAY ==
[2022-12-12 05:34] VITALS: BP 107/66; PULSE 77; RESP 18; TEMP 36.3; O2SAT 94; BMI 25.7
--- NOTE | 2022-12-12 05:43 | EX.ED.UPPERE ---
HPI History of Present Illness Chief Complaint: Upper Extremity Injury Informant: patient and EMS Narrative Narrative: Patient presents with left shoulder pain after a fall. Patient was getting up out of a folding easy chair. She was leaning forward when the portion supporting her legs suddenly flipped back. This caused her to tumble forward in the chair and onto the floor. She landed on her left shoulder. She states she never passed out. This was a mechanical fall. She had no chest pain or palpitations or syncope. She does have a history of atrial fibrillation but due to falls is not on anticoagulation other than aspirin. Her only complaint is left shoulder pain. She had called EMS to help her to bed. But her shoulder kept hurting. She had gotten oxycodone from her which has helped. Therefore she is not asking for anything for pain now. But she states she called back EMS because her shoulder was just hurting a lot. No trouble breathing neck pain numbness tingling or weakness. She had a recent hip fracture but that is not hurting her. She has no back pain. She said feels fine other than her left shoulder. [facility] Medical History Abnormal stress test Acute postoperative pain of right knee Acute systolic congestive heart failure Ambulates with cane Anxiety Aortic stenosis Aortic valve stenosis with insufficiency Arthritis Atherosclerotic heart disease of [place] coronary artery without angina pectoris Atrial fibrillation Back pain Cardiology follow-up encounter Cardiomyopathy Cellulitis of chest wall Chronic constipation Chronic cough Congestive heart failure (CHF) Debility Debility Dementia Depression Depression Diabetes Diabetes mellitus Diabetic neuropathy Diabetic polyneuropathy Dietary restriction DM2 (diabetes mellitus, type 2) Epilepsy Essential hypertension Former smoker H/O cardiac murmur History of atrial fibrillation History of echocardiogram History of left heart catheterization (LHC) (~06/02/22) History of pain when walking History of steroid therapy History of stress test Hx of back injury Hx of vaginal delivery Hypertension Hypertension Hypertension Inability to ambulate due to knee Injury of back Injury of head and neck Mitral regurgitation Nephrolithiasis Neuropathy Neuropathy, diabetic 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 Parkinson's disease Paroxysmal atrial fibrillation Pericardial effusion Pleural effusion due to CHF (congestive heart failure) Preoperative cardiovascular examination Rotator cuff tear arthropathy of left shoulder Seizure disorder Seizures Tremor Vitamin D deficiency Wears glasses Home Medications duloxetine 30 mg capsule,delayed release 30 mg PO DAILY NEUROPATHY 09/22/20 [History Last Taken 08/28/22] nitroglycerin 0.4 mg sublingual tablet 0.4 mg sublingual Q5M PRN Cardiac/Chest Pain #0 tabs 06/11/22 [Rx Last Taken Unknown] cyanocobalamin (vitamin B-12) 1,000 mcg tablet (Vitamin B-12) 1,000 mcg PO DAILY supplement 08/10/22 [History Last Taken 08/29/22] famotidine 40 mg tablet 40 mg PO BID stomach 08/10/22 [History Last Taken 08/29/22] furosemide 40 mg tablet 40 mg PO BID Diuretic 08/10/22 [History Last Taken 08/29/22] melatonin 3 mg tablet 3 mg PO HS sleep 08/10/22 [History Last Taken Unknown] diltiazem HCl 120 mg capsule,extended release 24 hr (Cartia XT) 120 mg PO BID heart 08/29/22 [History Last Taken 08/29/22] metoprolol succinate 25 mg tablet,extended release 24 hr 25 mg PO DAILY blood pressure 08/30/22 [History Last Taken Unknown] acetaminophen 500 mg tablet 1,000 mg (2 x 500 mg) PO Q6H PRN PRN Pain Score 1-10 #0 tabs 09/17/22 [Rx Last Taken Unknown] cholecalciferol (vitamin D3) 25 mcg (1,000 unit) tablet (Vitamin D3) 25 mcg PO DAILY Supplement 11/06/22 [History Last Taken Unknown] aspirin 81 mg chewable tablet 81 mg PO BIDCM Heart 11/09/22 [History Last Taken Unknown] lamotrigine 100 mg tablet 100 mg PO BID Seizures 11/09/22 [History Last Taken Unknown] potassium chloride 20 mEq tablet,extended release(part/cryst) (Klor-Con M) 20 meq PO BIDCM Supplement 11/09/22 [History Last Taken Unknown] Lactobac. rhamnosus GG-inulin [[facility] [employer] [facility]] 1 cap PO DAILY PRN ##0 11/24/22 [Rx Last Taken Unknown] oxycodone 5 mg tablet 5 mg PO Q4H PRN PRN Pain Score 6-10 7 days #28 tabs 11/24/22 [Rx Last Taken Unknown] Allergy/AdvReac Type Severity Reaction Status Date / Time bacitracin Allergy Rash Verified 12/12/22 05:34 [From Neosporin ([id number])] bacitracin zinc Allergy Rash Verified 12/12/22 05:34 [From Neosporin ([id number])] levetiracetam Allergy Other Verified 12/12/22 05:34 neomycin sulfate Allergy Rash Verified 12/12/22 05:34 [From Neosporin ([id number])] nickel Allergy Other Verified 12/12/22 05:34 polymyxin B Allergy Rash Verified 12/12/22 05:34 [From Neosporin ([id number])] sulfamethoxazole Allergy Itching Verified 12/12/22 05:34 [From Bactrim] trimethoprim [From Bactrim] Allergy Itching Verified 12/12/22 05:34 codeine AdvReac Nausea Verified 12/12/22 05:34 milk AdvReac Nausea/Vom/ Verified 12/12/22 05:34 Diarrhea Family History Father No problems noted. Mother No problems noted. Surgical History Amputated toe of right foot Deviated septum History of appendectomy History of cholecystectomy History of hysterectomy History of left hip hemiarthroplasty History of neck surgery History of tonsillectomy History of total right knee replacement (TKR) Hx of cystoscopy Hx of fusion of cervical spine S/P total knee arthroplasty Social History household members: spouse Smoking Status: Former smoker alcohol intake: never substance use type: does not use caffeine: No what type of physical activity do you participate in: other details: physical therapy seatbelt use: always do you feel safe at home: Yes ROS ROS ED Constitutional Constitutional ED: Denies chills or fever(s) Eyes Eyes: Denies change in vision Cardiovascular Cardiovascular: Denies chest pain or palpitations Respiratory/Chest Respiratory/Chest: Denies cough or dyspnea Gastrointestinal Gastrointestinal: Denies abdominal pain, nausea or vomiting Genitourinary Genitourinary ED: Denies dysuria Musculoskeletal Musculoskeletal: Reports other Details: See history of present illness ; Denies back pain, myalgias or neck pain Integumentary Denies Abrasions or rash Neurologic Neurologic: Denies headache(s), paresthesias or weakness Hematologic/Lymphatic Hematologic/Lymphatic: Denies easy bleeding or easy bruising Allergic/Immunologic Allergic/Immunologic ED: Denies urticaria EXAM Physical Exam Narrative Exam Narrative: Patient is awake alert. I met her in the room with EMS personnel. She gives a very clear consistent story. She is nontoxic. She looks overall comfortable. HEENT shows no sign of injury. I see no abrasions contusions or areas of tenderness. Neck is supple with no tenderness or pain with range of motion Chest is clear. No chest wall tenderness. No subcutaneous air. Breath sounds are normal. Oxygen level is normal at 94% on room air showing no hypoxia. Heart has a regular rate. But it does sound irregular. She does have a history of chronic A-fib. Abdomen is soft nontender. There is a ventral hernia which is not tender and is not new. Patient states that is normal for her. Back shows no cervical thoracic or lumbosacral tenderness. Extremities show no tenderness of the hips. She has had prior surgical scars. She has wrapping on the right foot due to a small infection that she states is improving. This was not unwrapped as there is no pain complaints or erythema coming above the bandage. She does have tenderness in the proximal humerus area on the left. Right is normal. No pain with palpation or range of motion. Left has shoulder area tenderness but no tenderness at the elbow forearm wrist or hand. I am not seeing visible bruising there. Distal pulses and sensation are intact. Const Vital Signs: 12/12/22 05:34 Temperature 97.4 F L Temperature Source Temporal Pulse Rate 77 Respiratory Rate 18 Blood Pressure 107/66 Blood Pressure Mean 79 Pulse Ox 94 MDM MDM MDM Narrative Medical decision making narrative: Independent interpretation the patient's two-view x-ray left shoulder shows no fracture. I see no indication of dislocation on these images. I went back and talked with the patient again. She actually has good bicep and tricep strength and no notable pain even with bicep motion. Clinically her shoulder is located. There is no acromial step-off or abnormal fullness. Distally neurovascularly intact. She has tenderness over the proximal humerus mostly laterally. I do not see any bruising that is yet developed but I think this likely represents contusion. She states she still feels well. There is no pain with motion of her hips and she states those are not hurting at all. She would like to go home. I think this is a reasonable option. Discharge Plan Triage Chief Complaint: Upper Extremity Injury ED Provider: Beltran Cruz Dx/Rx/DC Orders Clinical Impression: Fall at home, Contusion of left shoulder Instructions: Falls Prevent Adjust Living Space, ED Shoulder Contusion Prescriptions: No Action duloxetine 30 mg capsule,delayed release(DR/EC) 30 mg PO DAILY furosemide 40 mg tablet 40 mg PO BID Rx Instructions: AM AND 1400 famotidine 40 mg tablet 40 mg PO BID melatonin 3 mg tablet 3 mg PO HS cyanocobalamin (vitamin B-12) [Vitamin B-12] 1,000 mcg tablet 1,000 mcg PO DAILY nitroglycerin 0.4 mg Tablet, Sublingual 0.4 mg sublingual Q5M PRN (Reason: Cardiac/Chest Pain) Qty: 0 0RF diltiazem HCl [Cartia XT] 120 mg capsule,extended release 24hr 120 mg PO BID metoprolol succinate 25 mg tablet extended release 24 hr 25 mg PO DAILY acetaminophen 500 mg Tablet 1,000 mg PO Q6H PRN PRN (Reason: Pain Score 1-10) Qty: 0 0RF cholecalciferol (vitamin D3) [Vitamin D3] 25 mcg (1,000 unit) Tablet 25 mcg PO DAILY potassium chloride [Klor-Con M20] 20 mEq tablet,ER particles/crystals 20 meq PO BIDCM aspirin 81 mg tablet,chewable 81 mg PO BIDCM lamotrigine 100 mg tablet 100 mg PO BID oxycodone 5 mg Tablet 5 mg PO Q4H PRN PRN (Reason: Pain Score 6-10) 7 Days Qty: 28 0RF Lactobac. Rhamnosus Gg-Inulin [[facility]] 1 cap PO DAILY PRNQty: 0 0RF Primary Care Provider: Nahomy Bettencourt Referrals: Nahomy Bettencourt MD [Primary Care Provider] - 3-5 Days Disposition Disposition: Home, Self Care
--- NOTE | 2022-12-12 05:55 | RAD_ITS ---
EXAM: XR LEFT SHOULDER COMPLETE, 2 OR MORE VIEWS CLINICAL INDICATION: Trauma TECHNIQUE: Two or more views of the left shoulder. COMPARISON: Previous left shoulder radiographs of 11/21/2022 FINDINGS: BONES/JOINTS: Mild degenerative spurring again noted about the left AC joint, which is not abnormally widened. Mild degenerative osteoarthritis of the left glenohumeral joint again noted. The left subacromial space appears less narrowed, most likely due to differences in patient positioning. The visualized left upper ribs are intact. Visualized left upper lung is clear. Extensive cervical facet arthritis is again noted. No sclerotic or destructive changes observed. No acute fracture or dislocation. SOFT TISSUES: Amorphous soft tissue tissue calcification again noted adjacent to the proximal humeral shaft, consistent with calcific tendinitis of the long head of the biceps tendon. No radiopaque foreign body. RAD/Shoulder min 2 Views IMPRESSION: No significant interval change. No acute fracture, dislocation or AC joint widening. Calcific tendinitis of the long head of the biceps. Electronically Signed: Ryan Valiente MD at 6:20 EDT ,
== END 2022-12-12 06:50 | disposition home or self-care (01) ==
PROVIDERS: Emergency Provider Emergency Medicine; PCP Family Medicine; Visit Provider Emergency Medicine
DX: S40.012A Contusion of left shoulder, initial encounter (principal); G20 Parkinson's disease; I11.0 Hypertensive heart disease with heart failure; I42.9 Cardiomyopathy, unspecified; I50.9 Heart failure, unspecified; E11.42 Type 2 diabetes mellitus with diabetic polyneuropathy; I48.0 Paroxysmal atrial fibrillation; I25.10 Atherosclerotic heart disease of native coronary artery without angina pectoris; W07.XXXA Fall from chair, initial encounter; Y92.009 Unspecified place in unspecified non-institutional (private) residence as the place of occurrence of the external cause; Z87.891 Personal history of nicotine dependence
CPT/HCPCS: 73030; 99284

== ENCOUNTER → 2023-01-04 | Outpatient (CLI) | payer MEDICARE, OTHER, SELFPAY ==
[2023-01-04 15:12] LABS: Hematocrit 37.7 % (37-47); Mean Corp Hgb Conc 31.8 g/dL (32-36); Mean Corpuscular Hgb 33.5 pg (27.0-32.0); Mean Corpuscular Volume 105.3 fL (81-99); Mean Platelet Vol. 9.5 fl (6.2-12.0); Platelet Count 320 K/mm3 (150-450); RBC Distribution Width SD 53.1 fl (35.1-43.9); Red Blood Count 3.58 M/mm3 (4.2-5.4); White Blood Count 9.5 K/mm3 (4.4-11.0)
[2023-01-04 16:02] LABS: Vitamin B12 674 pg/mL (211-911)
[2023-01-04 16:03] LABS: ALB/GLOB Ratio 1.1 RATIO (0.9-2.4); AST(SGOT) 9 U/L (15-37); Alanine Aminotransfer ALT/SGPT 14 U/L (13-56); Albumin, Serum 3.5 g/dL (3.2-5.0); Alkaline Phosphatase 169 U/L (45-117); Anion Gap 8 (5-15); BUN 14 mg/dL (7-18); BUN/Creat Ratio 19.1 RATIO (10-20); Chloride 106 mmol/L (98-107); Creatinine, Serum 0.73 mg/dL (0.55-1.02); EST Glomerular Filtration Rate 80 mL/min (>60); Est Glom Filt Rate - Afr Amer 97 mL/min (>60); Globulin 3.3 g/dL (2.2-4.2); Glucose 101 mg/dL (74-106); Potassium 3.8 mmol/L (3.5-5.1); Protein, Total 6.8 g/dL (6.4-8.2); Sodium Level 141 mmol/L (136-145); Thyroid Stim Hormone (TSH) 1.32 uIU/mL (0.358-3.74)
[2023-01-09 19:07] LABS: Free Lambda Light Chains 14.6 mg/L (5.7-26.3); Lamotrigine (Lamictal) Level 1.6 ug/mL (2.0-20.0); Vitamin B1, Thiamine 130.9 nmol/L (66.5-200.0)
== END | disposition home or self-care (01) ==
LOC: MTLAB 12:58
PROVIDERS: PCP Family Medicine; Referring Provider Psychiatry & Neurology Neurology; Visit Provider Psychiatry & Neurology Neurology
DX: F03.90 Unspecified dementia, unspecified severity, without behavioral disturbance, psychotic disturbance, mood disturbance, and anxiety (principal); Z87.898 Personal history of other specified conditions; G62.9 Polyneuropathy, unspecified
CPT/HCPCS: 36415; 80053; 82140; 82542; 82607; 82746; 83883; 84425; 84443; 85027

== ENCOUNTER → 2023-01-21 | Outpatient (CLI) | payer MEDICARE, OTHER, SELFPAY ==
[2023-01-21 14:21] LABS: Anion Gap 6 (5-15); BUN 26 mg/dL (7-18); BUN/Creat Ratio 29.2 RATIO (10-20); Calcium,Total 9.6 mg/dL (8.5-10.1); Chloride 106 mmol/L (98-107); Creatinine, Serum 0.89 mg/dL (0.55-1.02); EST Glomerular Filtration Rate 64 mL/min (>60); Est Glom Filt Rate - Afr Amer 78 mL/min (>60); Glucose 126 mg/dL (74-106); Potassium 3.9 mmol/L (3.5-5.1); Sodium Level 139 mmol/L (136-145)
== END | disposition home or self-care (01) ==
LOC: LAB 12:59
PROVIDERS: PCP Family Medicine; Referring Provider Physician Assistant Medical; Visit Provider Physician Assistant Medical
DX: I42.9 Cardiomyopathy, unspecified (principal)
CPT/HCPCS: 36415; 80048

== ENCOUNTER → 2023-02-04 | Outpatient (CLI) | payer MEDICARE, OTHER, SELFPAY | END | disposition home or self-care (01) | LOC: LABSPEC 15:31 | PROVIDERS: PCP Family Medicine; Referring Provider Podiatrist; Visit Provider Podiatrist | DX: L97.519 Non-pressure chronic ulcer of other part of right foot with unspecified severity (principal) | CPT/HCPCS: 87070; 87075; 87077; 87186; 87205 ==

== ENCOUNTER → 2023-02-07 | Outpatient (CLI) | payer MEDICARE, OTHER, SELFPAY | END | disposition home or self-care (01) | LOC: PSN 08:29 | PROVIDERS: PCP Family Medicine; Referring Provider Psychiatry & Neurology Neurology; Visit Provider Psychiatry & Neurology Neurology | DX: G40.909 Epilepsy, unspecified, not intractable, without status epilepticus (principal) | CPT/HCPCS: 95819 ==

== ENCOUNTER 2023-03-01 16:18 | Emergency (ER) | payer MEDICARE, OTHER, SELFPAY ==
[2023-03-01 16:18] VITALS: BP 99/61; PULSE 108; RESP 18; TEMP 35.5; O2SAT 99
--- NOTE | 2023-03-01 17:29 | CT_ITS ---
STUDY: CT ABDOMEN AND PELVIS WITH CONTRAST REASON FOR EXAM: Female, 82 years old. Abdominal pain RADIATION DOSAGE (If Supplied By Facility): CTDIvol = ( 22.00 ) mGy, DLP = ( 987.76 ) mGycm TECHNIQUE: IV 100mL Isovue-300 was administered. Transaxial images were obtained from the dome of the diaphragm to the symphysis pubis in the portal venous phase. Multiplanar coronal and sagittal images were reformatted. Individualized Dose Optimization Techniques Were Used For This CT. COMPARISON: 07/03/2022 FINDINGS: LOWER CHEST: Left basilar subsegmental atelectasis. Cardiomegaly and coronary calcifications. No pericardial effusion. LIVER: The liver is normal in size, shape, and attenuation. No focal mass. Unchanged 1.7 cm ovoid nodule posterior to the right hepatic lobe. GALLBLADDER AND BILIARY TREE: Cholecystectomy. No intra- or extrahepatic biliary ductal dilation. PANCREAS: No focal cystic or solid mass. SPLEEN: Normal size without focal cystic or solid mass. ADRENAL GLANDS: No nodules. KIDNEYS AND URETERS: Normal renal size and position. No hydronephrosis or nephrolithiasis. PERITONEUM: No ascites or free air. No other fluid collection. BOWEL: The stomach is unremarkable. Normal caliber small bowel. There is no obstruction. No colonic wall thickening or inflammation. Extensive, pancolonic diverticulosis, without evidence of diverticulitis. No free air or free fluid. No evidence of acute appendicitis. LYMPH NODES: No enlarged mesenteric or retroperitoneal lymph nodes. VESSELS: The aorta is normal in caliber with mild atherosclerotic calcification. URINARY BLADDER: Unremarkable. REPRODUCTIVE ORGANS: Hysterectomy. Ovaries unremarkable. ABDOMINAL WALL: No discrete abdominal or pelvic wall hernia. BONES: No acute or suspicious osseous bodies. Minimal chronic superior endplate compression deformity at L1. CT/Abdomen/Pelvis W IV Cont ONLY IMPRESSION: * No acute findings within the abdomen or pelvis to explain the patient''s symptomatology. * Pain colonic diverticulosis without evidence of diverticulitis. * Stable ovoid exophytic soft tissue density structure emanating from the posterior right hepatic lobe, nonspecific though unchanged. Electronically Signed: Arvind Patiño MD at 18:45 EDT ,
--- NOTE | 2023-03-01 17:30 | ED.VIS.GI ---
HPI HPI - GI History of Present Illness Chief Complaint: Abd Pain Informant: patient and spouse/S.O. Narrative Narrative: 82-year-old female presenting to the emergency room with abdominal pain nausea diarrhea. Patient states that Tuesday and Tuesday she had discomfort in her upper abdomen. She states she would not call it pain. She states that she felt very fatigued. states she ate very little. She states a few times she was nauseated and felt like vomiting. states that yesterday she seemed like she was doing quite well and ate a good dinner. Today she notes diarrhea. The fatigue has returned. Patient was recently admitted to the hospital for pericardial effusion transferred to [facility] and later readmitted as a hip fracture. She notes a history of atrial fibrillation and is on digoxin but not on any anticoagulants at this time. Patient reports a prior appendectomy and cholecystectomy. She denies any history of pancreatitis. She does states that she feels somewhat bloated. [facility] Medical History Abnormal stress test Acute postoperative pain of right knee Acute systolic congestive heart failure Ambulates with cane Anxiety Aortic stenosis Aortic valve stenosis with insufficiency Arthritis Atherosclerotic heart disease of [place] coronary artery without angina pectoris Atrial fibrillation Back pain Cardiology follow-up encounter Cardiomyopathy Cellulitis of chest wall Chronic constipation Chronic cough Congestive heart failure (CHF) Debility Debility Dementia Depression Depression Diabetes Diabetes mellitus Diabetic neuropathy Diabetic polyneuropathy Dietary restriction DM2 (diabetes mellitus, type 2) Epilepsy Essential hypertension Former smoker H/O cardiac murmur History of atrial fibrillation History of echocardiogram History of left heart catheterization (LHC) (~06/02/22) History of pain when walking History of steroid therapy History of stress test Hx of back injury Hx of vaginal delivery Hypertension Hypertension Hypertension Inability to ambulate due to knee Injury of back Injury of head and neck Mitral regurgitation Nephrolithiasis Neuropathy Neuropathy, diabetic Other care home (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 Parkinson's disease Paroxysmal atrial fibrillation Pericardial effusion Pleural effusion due to CHF (congestive heart failure) Preoperative cardiovascular examination Rotator cuff tear arthropathy of left shoulder Tremor Vitamin D deficiency Wears glasses Home Medications duloxetine 30 mg capsule,delayed release 30 mg PO DAILY NEUROPATHY 09/22/20 [History Last Taken 08/28/22] nitroglycerin 0.4 mg sublingual tablet 0.4 mg sublingual Q5M PRN Cardiac/Chest Pain #0 tabs 06/11/22 [Rx Last Taken Unknown] cyanocobalamin (vitamin B-12) 1,000 mcg tablet (Vitamin B-12) 1,000 mcg PO DAILY supplement 08/10/22 [History Last Taken 08/29/22] famotidine 40 mg tablet 40 mg PO BID stomach 08/10/22 [History Last Taken 08/29/22] diltiazem HCl 120 mg capsule,extended release 24 hr (Cartia XT) 120 mg PO BID heart 08/29/22 [History Last Taken 08/29/22] acetaminophen 500 mg tablet 1,000 mg (2 x 500 mg) PO Q6H PRN PRN Pain Score 1-10 #0 tabs 09/17/22 [Rx Last Taken Unknown] oxycodone 5 mg tablet 5 mg PO Q4H PRN PRN Pain Score 6-10 7 days #28 tabs 11/24/22 [Rx Last Taken Unknown] cholecalciferol (vitamin D3) 25 mcg (1,000 unit) tablet (Vitamin D3) 50 mcg PO DAILY Supplement 12/28/22 [History Last Taken Unknown] mirabegron 25 mg tablet,extended release 24 hr (Myrbetriq) 25 mg PO DAILY 12/28/22 [History Last Taken Unknown] apixaban 2.5 mg tablet (Eliquis) 2.5 mg PO BID #180 tabs 01/04/23 [Rx Last Taken Unknown] furosemide 40 mg tablet 40 mg PO DAILY Diuretic 01/04/23 [History Last Taken Unknown] potassium chloride 20 mEq tablet,extended release(part/cryst) (Klor-Con M) 20 meq PO DAILY Supplement 01/04/23 [History Last Taken Unknown] spironolactone 25 mg tablet 25 mg PO DAILY #90 tabs 01/04/23 [Rx Last Taken Unknown] donepezil 10 mg tablet 10 mg PO QHS #30 tabs 01/16/23 [Rx Last Taken Unknown] donepezil 5 mg tablet 5 mg PO QHS #30 tabs 01/16/23 [Rx Last Taken Unknown] lamotrigine 100 mg tablet 100 mg PO BID Seizures #60 tabs 01/16/23 [Rx Last Taken Unknown] Allergy/AdvReac Type Severity Reaction Status Date / Time bacitracin Allergy Rash Verified 03/01/23 16:21 [From Neosporin ([id number])] bacitracin zinc Allergy Rash Verified 03/01/23 16:21 [From Neosporin ([id number])] levetiracetam Allergy Other Verified 03/01/23 16:21 neomycin sulfate Allergy Rash Verified 03/01/23 16:21 [From Neosporin ([id number])] nickel Allergy Other Verified 03/01/23 16:21 polymyxin B Allergy Rash Verified 03/01/23 16:21 [From Neosporin ([id number])] sulfamethoxazole Allergy Itching Verified 03/01/23 16:21 [From Bactrim] trimethoprim [From Bactrim] Allergy Itching Verified 03/01/23 16:21 codeine AdvReac Nausea Verified 03/01/23 16:21 milk AdvReac Nausea/Vom/ Verified 03/01/23 16:21 Diarrhea Family History Father No problems noted. Mother No problems noted. Surgical History Amputated toe of right foot Deviated septum History of appendectomy History of cholecystectomy History of hysterectomy History of left hip hemiarthroplasty History of neck surgery History of tonsillectomy History of total right knee replacement (TKR) Hx of cystoscopy Hx of fusion of cervical spine S/P total knee arthroplasty Social History household members: spouse Smoking Status: Former smoker alcohol intake: never substance use type: does not use caffeine: No what type of physical activity do you participate in: other details: physical therapy seatbelt use: always do you feel safe at home: Yes ROS ROS ED Constitutional Constitutional ED: Denies chills, fever(s) or weight loss Eyes Eyes: Denies change in vision or diplopia ENT ENT ED: Denies ear pain, rhinorrhea or sore throat Cardiovascular Cardiovascular: Denies chest pain, orthopnea, palpitations or racing heartbeat Respiratory/Chest Respiratory/Chest: Denies cough, dyspnea or orthopnea Gastrointestinal Gastrointestinal: Reports abdominal pain, diarrhea and nausea; Denies vomiting Genitourinary Genitourinary ED: Denies dysuria, hematuria or urinary frequency Musculoskeletal Musculoskeletal: Denies arthralgias or myalgias Integumentary Denies abscess or rash Neurologic Neurologic: Denies headache(s) or weakness Psychiatric Psychiatric: Denies anxiety, depression, suicidal ideation or suicidal thoughts Endocrine Endocrinology: Denies polydipsia, polyphagia or polyuria Allergic/Immunologic Allergic/Immunologic ED: Denies mouth swelling, tongue swelling or urticaria EXAM Physical Exam Const Vital Signs: 03/01/23 16:18 03/01/23 20:34 Temperature 96 F L 97.7 F L Temperature Source Temporal Oral Pulse Rate 108 H 58 L Respiratory Rate 18 16 Blood Pressure 99/61 112/56 L Blood Pressure Mean 73 74 Pulse Ox 99 98 Oxygen Delivery Method Room Air Room Air Positive well nourished and well developed General Appearance ED: well developed HEENT Reports normocephalic, head/scalp atraumatic and moist mucous membranes Eyes PERRL and EOMs intact bilaterally Neck no lymphadenopathy, supple and no JVD Resp normal respiratory effort and clear to auscultation bilaterally Cardio regular rate, regular rhythm and no murmurs GI Inspection: Negative for abdominal distention Auscultation: normoactive bowel sounds Palpation: soft, tender and guarding; Negative for rebound tenderness present Back/Spine no CVA tenderness and normal ROM Extremity normal to inspection General Extremety ED: Negative for edema General Extremity: Negative for edema Neuro oriented x3 and CN's II-XII intact bilaterally Sensorium / Orientation: alert Motor Exam: strength 5/5 throughout Psych mental status grossly normal Mood & Affect: Negative for depressed or tearful Skin no rashes or lesions noted and no wounds MDM MDM MDM Narrative Medical decision making narrative: White count is 8.3 with hemoglobin 12.6. Potassium is 3.0. She has potassium pills at home and was recently cut back from 2 pills a day to 1. Advised her to go ahead and to take 2 pills a day for the next several days. Lipase is normal liver enzymes showed alkaline phosphatase at 139. Urinalysis shows no infection. CT of the abdomen pelvis was obtained. This demonstrates diverticulosis with no diverticulitis. No inflammatory process was noted. Patient received fluids. She is resting comfortably. Initially when she came in she had a blood pressure 99/69 with a pulse of 108. Though during my examination I did not see these vital signs on the monitor as they were much more improved. Rechecked her vital signs neared discharge time blood pressure 112/56 with a heart rate of 58. I do not appreciate a surgical abdomen. I think it is reasonable that she be discharged home with supportive care she was given return instructions. Her and her note understanding are comfortable with the plan Lab Data Attestation: I reviewed the patient's lab results. Labs: Laboratory Results - last 24 hr 03/01/23 03/01/23 17:38 20:07 WBC 8.3 RBC 3.99 L Hgb 12.6 Hct 39.6 MCV 99.2 H MCH 31.6 MCHC 31.8 L RDW Std Deviation 48.8 H RDW Coeff of Robert 13.5 Plt Count 262 MPV 9.4 Immature Gran % (Auto) 0.200 Neut % (Auto) 69.8 Lymph % (Auto) 20.0 [place] % (Auto) 6.9 Eos % (Auto) 2.5 Baso % (Auto) 0.6 Absolute Neuts (auto) 5.8 Absolute Lymphs (auto) 1.65 Nucleated RBC % 0 Sodium 145 Potassium 3.0 L Chloride 109 H Carbon Dioxide 31.0 Anion Gap 5 BUN 16 Creatinine 0.76 Est GFR (MDRD) Af Amer 93 Est GFR (MDRD) Non-Af 77 BUN/Creatinine Ratio 21.1 H Glucose 100 Calcium 9.2 Total Bilirubin 0.40 Direct Bilirubin 0.14 AST 8 L ALT 17 Alkaline Phosphatase 139 H Total Protein 6.6 Albumin 3.4 Globulin 3.2 Lipase 34 Urine Color Yellow Urine Clarity Clear Urine pH 6.5 Ur Specific [place] 1.015 Urine Protein 30 H Urine Glucose (UA) Normal Urine Ketones Negative Urine Occult Blood 50 H Urine Nitrite Negative Urine Bilirubin Negative Urine Urobilinogen Normal Ur Leukocyte Esterase 100 H Urine RBC 0 SEEN Urine WBC 5-10 SEEN Ur Squamous Epith Cells 0 SEEN Urine Bacteria 0 SEEN Urine Mucus 0 SEEN Radiography Diagnostic Testing: Clinical Impression(s) from Imaging Studies Abdomen/Pelvis CT 03/01/23 17:29 IMPRESSION: * No acute findings within the abdomen or pelvis to explain the patient''s symptomatology. * Pain colonic diverticulosis without evidence of diverticulitis. * Stable ovoid exophytic soft tissue density structure emanating from the posterior right hepatic lobe, nonspecific though unchanged. Electronically Signed: Arvind Patiño MD at 18:45 EDT , Discharge Plan Triage Chief Complaint: Abd Pain ED Provider: Yo Ward Dx/Rx/DC Orders Clinical Impression: Diarrhea, Abdominal pain, Nausea, Acute hypokalemia Instructions: Diverticulosis and Diverticulitis, ED Abdominal Pain Unkn Cause Fem Prescriptions: No Action duloxetine 30 mg capsule,delayed release(DR/EC) 30 mg PO DAILY famotidine 40 mg tablet 40 mg PO BID cyanocobalamin (vitamin B-12) [Vitamin B-12] 1,000 mcg tablet 1,000 mcg PO DAILY furosemide 40 mg tablet 40 mg PO DAILY Rx Instructions: AM potassium chloride [Klor-Con M20] 20 mEq tablet,ER particles/crystals 20 meq PO DAILY spironolactone 25 mg tablet 25 mg PO DAILY Qty: 90 3RF Eliquis 2.5 mg tablet 2.5 mg PO BID Qty: 180 3RF Myrbetriq 25 mg tablet extended release 24 hr 25 mg PO DAILY lamotrigine 100 mg tablet 100 mg PO BID Qty: 60 5RF donepezil 5 mg tablet 5 mg PO QHS Qty: 30 0RF donepezil 10 mg tablet 10 mg PO QHS Qty: 30 5RF Rx Instructions: Begin after completing one month of treatment of donepezil 5mg nightly nitroglycerin 0.4 mg Tablet, Sublingual 0.4 mg sublingual Q5M PRN (Reason: Cardiac/Chest Pain) Qty: 0 0RF diltiazem HCl [Cartia XT] 120 mg capsule,extended release 24hr 120 mg PO BID acetaminophen 500 mg Tablet 1,000 mg PO Q6H PRN PRN (Reason: Pain Score 1-10) Qty: 0 0RF cholecalciferol (vitamin D3) [Vitamin D3] 25 mcg (1,000 unit) tablet 50 mcg PO DAILY oxycodone 5 mg Tablet 5 mg PO Q4H PRN PRN (Reason: Pain Score 6-10) 7 Days Qty: 28 0RF Primary Care Provider: Nahomy Bettencourt Referrals: Nahomy Bettencourt MD [Primary Care Provider] - As Needed Activity Restrictions/Additional Instructions: Please take an extra potassium pill each day for the next 4 days. Disposition Disposition: Home, Self Care Discharge Date/Time: 03/01/23 21:19
[2023-03-01 17:51] LABS: Absolute Lymphocyte Count 1.65 X10^3/uL (0.83-4.51); Absolute Neutrophil Count 5.8 X10^3/uL (2.0-7.7); Basophil# 0.05 X10^3/uL; Basophil% 0.6 % (0-1); Eosinophil# 0.21 X10^3/uL; Eosinophils% 2.5 % (0-5); Hematocrit 39.6 % (37-47); Hemoglobin 12.6 g/dL (12.0-15.0); Lymphocyte # 1.65 X10^3/ul (0.83-4.51); Mean Corp Hgb Conc 31.8 g/dL (32-36); Mean Corpuscular Hgb 31.6 pg (27.0-32.0); Mean Corpuscular Volume 99.2 fL (81-99); Mean Platelet Vol. 9.4 fl (6.2-12.0); Monocyte# 0.57 X10^3/uL; Monocyte% 6.9 % (0-10); NRBC Flagged by Analyzer 0 % (0-5); Neutrophil # 5.75 X10^3/uL (2.7-7.7); Neutrophil % 69.8 % (47-70); Platelet Count 262 K/mm3 (150-450); RBC Distribution Width CV 13.5 % (11.6-14.6); RBC Distribution Width SD 48.8 fl (35.1-43.9); Red Blood Count 3.99 M/mm3 (4.2-5.4); White Blood Count 8.3 K/mm3 (4.4-11.0)
[2023-03-01] MEDS: Ondansetron 4 MG/2 ML Vial IV (17:55)
[2023-03-01] MEDS: 0.9% Normal Saline (1000mL) 1,000 ML 1000 ML IV (17:55)
[2023-03-01 18:11] LABS: AST(SGOT) 8 U/L (15-37); Alanine Aminotransfer ALT/SGPT 17 U/L (13-56); Albumin, Serum 3.4 g/dL (3.2-5.0); Alkaline Phosphatase 139 U/L (45-117); Anion Gap 5 (5-15); BUN 16 mg/dL (7-18); BUN/Creat Ratio 21.1 RATIO (10-20); Bilirubin, Direct 0.14 mg/dL (0.00-0.30); Calcium,Total 9.2 mg/dL (8.5-10.1); Chloride 109 mmol/L (98-107); Creatinine, Serum 0.76 mg/dL (0.55-1.02); EST Glomerular Filtration Rate 77 mL/min (>60); Est Glom Filt Rate - Afr Amer 93 mL/min (>60); Globulin 3.2 g/dL (2.2-4.2); Glucose 100 mg/dL (74-106); Lipase 34 U/L (13-75); Protein, Total 6.6 g/dL (6.4-8.2); Sodium Level 145 mmol/L (136-145)
[2023-03-01 20:11] LABS: Bacteria 0 SEEN /hpf (None Seen); Mucous, Urine 0 SEEN /hpf (<or=2+); Red Blood Cells-Urine 0 SEEN /hpf (0-5); Squamous Epithelial Cells - UA 0 SEEN /hpf (5-10)
[2023-03-01 20:16] LABS: Color, Urine Yellow (Yellow); Glucose, Dipstick Normal (Normal); Ketone-Dipstick Negative (Negative); Leukocyte Esterase-Dipstick 100 /ul (Negative); Nitrite-Dipstick Negative (Negative); Occult Blood-Urine 50 /ul (Negative); Protein-Dipstick 30 mg/dl (Negative); Specific Gravity, Urine 1.015 (1.002-1.030); Urine Bilirubin Dipstick Negative (Negative); Urine Clarity Clear (Clear); Urine Urobilinogen Normal (Normal); Urine pH 6.5 (5.0 - 8.0)
[2023-03-01 20:26] LABS: White Blood Cells 5-10 SEEN /hpf (0-5)
[2023-03-01 20:34] VITALS: BP 112/56; PULSE 58; RESP 16; TEMP 36.5; O2SAT 98
== END 2023-03-01 21:19 | disposition home or self-care (01) ==
PROVIDERS: Emergency Provider Emergency Medicine; PCP Family Medicine; Visit Provider Emergency Medicine
DX: R19.7 Diarrhea, unspecified (principal); I11.0 Hypertensive heart disease with heart failure; I50.9 Heart failure, unspecified; I42.9 Cardiomyopathy, unspecified; E11.42 Type 2 diabetes mellitus with diabetic polyneuropathy; I48.0 Paroxysmal atrial fibrillation; E87.6 Hypokalemia; K57.30 Diverticulosis of large intestine without perforation or abscess without bleeding; I25.10 Atherosclerotic heart disease of native coronary artery without angina pectoris; Z87.891 Personal history of nicotine dependence; Z90.49 Acquired absence of other specified parts of digestive tract
CPT/HCPCS: 74177; 80048; 80076; 81001; 83690; 85025; 96361; 96374; 99283; J7030; Q9967; J2405

== ENCOUNTER → 2023-03-11 | Outpatient (CLI) | payer MEDICARE, OTHER, SELFPAY ==
--- NOTE | 2023-03-11 10:57 | ECHOCS_ITS ---
Reason For Study: CHF Procedure This was a 2D Doppler, Color Flow transthoracic echocardiogram. The study was technically difficult. Contrast injection was performed. Exam performed in department. Left Ventricle Normal LV size. Septal motion consistent with bundle branch block. The left ventricular ejection fraction is 30 %. There is moderate to severe global hypokinesis of the left ventricle. Right Ventricle Normal RV size. Normal systolic function. Atria Normal left atrium. Normal right atrium. Tricuspid Valve Normal tricuspid valve. Mild (1+) tricuspid valve insufficiency. Pulmonary artery systolic pressure is 40 mmHg. Aortic Valve Trisinus/trileaflet aortic valve. Great Vessels Normal aortic root. The pulmonary artery is normal size. Normal inferior vena cava. Pericardium/Pleural No pericardial effusion. Medication 22 gauge I.V. with prn adaptor inserted into left arm. Diluted definity 1.5ml given slow IV push to enhance endocardial definition. MMode/2D Measurements & Calculations LVIDd: 5.1 cm IVSd: 1.2 cm LVOT diam: 2.0 cm LVIDs: 3.7 cm LVPWd: 0.98 cm LVOT area: 3.2 cm2 FS: 28.1 % Ao root diam: 3.2 cm LAV(MOD-bp): 67.2 ml LA A4 area: 20.3 cm2 LA dimension: 3.9 cm LAV(MOD-bp) Indexed: 37.4 ml/m2 LAV(MOD-sp2): 66.9 ml LAV(MOD-sp4): 64.5 ml RA A4 area: 17.7 cm2 Doppler Measurements & Calculations MV E max floyd: 59.8 cm/sec MV V2 max: 82.9 cm/sec Ao V2 max: 251.8 cm/sec MV max P.8 mmHg Ao max P.6 mmHg MV V2 mean: 38.7 cm/sec Ao V2 mean: 170.1 cm/sec MV mean P.80 mmHg Ao mean P.5 mmHg MV V2 VTI: 15.4 cm Ao V2 VTI: 48.4 cm MVA(VTI): 2.2 cm2 AV (velocity ratio): 0.22 PRISCILLA(I,D): 0.70 cm2 PRISCILLA(V,D): 0.71 cm2 AI max floyd: 222.4 cm/sec LV V1 max: 56.3 cm/sec MR max floyd: 437.7 cm/sec AI max P.8 mmHg LV V1 max P.3 mmHg MR max P.6 mmHg LV V1 mean P.59 mmHg AI dec slope: 102.9 cm/sec2 LV V1 mean: 34.7 cm/sec AI P1/2t: 633.3 msec LV V1 VTI: 10.7 cm SV(LVOT): 33.9 ml PA V2 max: 77.5 cm/sec TR max floyd: 301.9 cm/sec TR max P.5 mmHg ECHO/Echo Complete W/ Contrast Interpretation Summary Normal LV size. The left ventricular ejection fraction is 30 %. Septal motion consistent with bundle branch block. There is moderate to severe global hypokinesis of the left ventricle. Pulmonary artery systolic pressure is 40 mmHg. Contrast injection was performed. Compared to previous study, the left ventricu lar systolic function is the same.. Ordering Physician: Maribell Arias Referring Physician: Nahomy Bettencourt Performed By: Wale Moss RCS
== END | disposition home or self-care (01) ==
LOC: CVS 10:55
PROVIDERS: PCP Family Medicine; Referring Provider Physician Assistant Medical; Visit Provider Physician Assistant Medical
DX: I50.22 Chronic systolic (congestive) heart failure (principal)
CPT/HCPCS: 93306; Q9957; A4216; C8929

== ENCOUNTER 2023-03-25 23:02 | Emergency (ER) | payer MEDICARE, OTHER, SELFPAY ==
[2023-03-25 23:08] VITALS: BP 116/94; PULSE 80; RESP 20; TEMP 37; O2SAT 92; BMI 24.5
[2023-03-25 23:11] VITALS: BP 119/64; PULSE 93; RESP 29; O2SAT 97
--- NOTE | 2023-03-25 23:25 | EKG12_ITS ---
Test Reason : CP Blood Pressure : / mmHG Vent. Rate : 072 BPM Atrial Rate : 000 BPM P-R Int : 000 ms QRS Dur : 154 ms QT Int : 412 ms P-R-T Axes : 000 -31 135 degrees QTc Int : 451 ms Atrial fibrillation Left axis deviation Left bundle branch block Abnormal ECG Confirmed by AIDE LYNN, MOOK ([id number]), medical editor MIKE CHAND ([id number]) on 03/28/2023 8:31:52 AM Referred By: WAGNER Confirmed By:JOLEEN NOBLE MD
[2023-03-25 23:41] LABS: Absolute Lymphocyte Count 2.08 X10^3/uL (0.83-4.51); Absolute Neutrophil Count 5.8 X10^3/uL (2.0-7.7); Basophil# 0.08 X10^3/uL; Basophil% 0.9 % (0-1); Eosinophil# 0.26 X10^3/uL; Eosinophils% 2.9 % (0-5); Hematocrit 42.4 % (37-47); Hemoglobin 13.1 g/dL (12.0-15.0); Lymphocyte # 2.08 X10^3/ul (0.83-4.51); Lymphocyte % 23.2 % (19-41); Mean Corp Hgb Conc 30.9 g/dL (32-36); Mean Corpuscular Hgb 31.6 pg (27.0-32.0); Mean Corpuscular Volume 102.4 fL (81-99); Monocyte# 0.74 X10^3/uL; Monocyte% 8.3 % (0-10); NRBC Flagged by Analyzer 0 % (0-5); Neutrophil # 5.78 X10^3/uL (2.7-7.7); Neutrophil % 64.5 % (47-70); Platelet Count 324 K/mm3 (150-450); RBC Distribution Width CV 13.6 % (11.6-14.6); RBC Distribution Width SD 51.8 fl (35.1-43.9); Red Blood Count 4.14 M/mm3 (4.2-5.4)
--- NOTE | 2023-03-25 23:43 | RAD_ITS ---
EXAM: XR CHEST, 1 VIEW CLINICAL INDICATION: chest pain TECHNIQUE: Frontal view of the chest. COMPARISON: Single view chest 11/06/2022 FINDINGS: LUNGS AND PLEURAL SPACES: Unremarkable. No consolidation or edema. No pneumothorax. No effusion. HEART: Mild enlargement of the cardiac silhouette. MEDIASTINUM: Central airways and mediastinal contour are unremarkable. BONES/JOINTS: Unremarkable. SOFT TISSUES: Unremarkable. RAD/Chest 1 View (Portable) IMPRESSION: No acute findings in the chest. Electronically Signed: Los Rodriguez MD at 0:11 EST ,
--- NOTE | 2023-03-25 23:58 | EDS_ITS ---
HPI History of Present Illness Chief Complaint: Chest Pain Narrative Narrative: 82-year-old female with history of CAD, A-fib, CHF presenting with chest pain. She states left-sided. Radiated to her left arm. Started about 730. It last about 40 minutes. She was lightheaded with it. Denies sweatiness or nauseousness. She states her gave her 2 oxycodone which she normally takes for peripheral neuropathy. She was also given aspirin and nitroglycerin in the squad she states her chest pain is now quiet. Patient denies any history of MS. She states she had a stress test a couple months ago which was normal. [facility] Medical History Abnormal stress test Acute postoperative pain of right knee Acute systolic congestive heart failure Ambulates with cane Anxiety Aortic stenosis Aortic valve stenosis with insufficiency Arthritis Atherosclerotic heart disease of [place] coronary artery without angina pectoris Atrial fibrillation Back pain Cardiology follow-up encounter Cardiomyopathy Cellulitis of chest wall Chronic constipation Chronic cough Congestive heart failure (CHF) Debility Debility Dementia Depression Depression Diabetes Diabetes mellitus Diabetic neuropathy Diabetic polyneuropathy Dietary restriction DM2 (diabetes mellitus, type 2) Epilepsy Essential hypertension Former smoker H/O cardiac murmur History of atrial fibrillation History of echocardiogram History of left heart catheterization (LHC) (~06/02/22) History of pain when walking History of steroid therapy History of stress test Hx of back injury Hx of vaginal delivery Hypertension Hypertension Hypertension Inability to ambulate due to knee Injury of back Injury of head and neck Mitral regurgitation Nephrolithiasis Neuropathy Neuropathy, diabetic Other halfway (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 Parkinson's disease Paroxysmal atrial fibrillation Pericardial effusion Pleural effusion due to CHF (congestive heart failure) Preoperative cardiovascular examination Rotator cuff tear arthropathy of left shoulder Tremor Vitamin D deficiency Wears glasses Home Medications duloxetine 30 mg capsule,delayed release 30 mg PO DAILY NEUROPATHY 09/22/20 [History Last Taken 08/28/22] nitroglycerin 0.4 mg sublingual tablet 0.4 mg sublingual Q5M PRN Cardiac/Chest Pain #0 tabs 06/11/22 [Rx Last Taken Unknown] cyanocobalamin (vitamin B-12) 1,000 mcg tablet (Vitamin B-12) 1,000 mcg PO DAILY supplement 08/10/22 [History Last Taken 08/29/22] famotidine 40 mg tablet 40 mg PO BID stomach 08/10/22 [History Last Taken 08/29/22] diltiazem HCl 120 mg capsule,extended release 24 hr (Cartia XT) 120 mg PO BID heart 08/29/22 [History Last Taken 08/29/22] acetaminophen 500 mg tablet 1,000 mg (2 x 500 mg) PO Q6H PRN PRN Pain Score 1-10 #0 tabs 09/17/22 [Rx Last Taken Unknown] oxycodone 5 mg tablet 5 mg PO Q4H PRN PRN Pain Score 6-10 7 days #28 tabs 11/24/22 [Rx Last Taken Unknown] cholecalciferol (vitamin D3) 25 mcg (1,000 unit) tablet (Vitamin D3) 50 mcg PO DAILY Supplement 12/28/22 [History Last Taken Unknown] mirabegron 25 mg tablet,extended release 24 hr (Myrbetriq) 25 mg PO DAILY 12/28/22 [History Last Taken Unknown] apixaban 2.5 mg tablet (Eliquis) 2.5 mg PO BID #180 tabs 01/04/23 [Rx Last Taken Unknown] furosemide 40 mg tablet 40 mg PO DAILY Diuretic 01/04/23 [History Last Taken Unknown] potassium chloride 20 mEq tablet,extended release(part/cryst) (Klor-Con M) 20 meq PO DAILY Supplement 01/04/23 [History Last Taken Unknown] spironolactone 25 mg tablet 25 mg PO DAILY #90 tabs 01/04/23 [Rx Last Taken Unknown] donepezil 10 mg tablet 10 mg PO QHS #30 tabs 01/16/23 [Rx Last Taken Unknown] donepezil 5 mg tablet 5 mg PO QHS #30 tabs 01/16/23 [Rx Last Taken Unknown] lamotrigine 100 mg tablet 100 mg PO BID Seizures #60 tabs 01/16/23 [Rx Last Taken Unknown] Allergy/AdvReac Type Severity Reaction Status Date / Time levetiracetam Allergy Other Verified 03/25/23 23:14 nickel Allergy Other Verified 03/25/23 23:14 sulfamethoxazole Allergy Itching Verified 03/25/23 23:14 [From Bactrim] trimethoprim [From Bactrim] Allergy Itching Verified 03/25/23 23:14 codeine AdvReac Nausea Verified 03/25/23 23:14 milk AdvReac Nausea/Vom/ Verified 03/25/23 23:14 Diarrhea Family History Father No problems noted. Mother No problems noted. Surgical History Amputated toe of right foot Deviated septum History of appendectomy History of cholecystectomy History of hysterectomy History of left hip hemiarthroplasty History of neck surgery History of tonsillectomy History of total right knee replacement (TKR) Hx of cystoscopy Hx of fusion of cervical spine S/P total knee arthroplasty Social History household members: spouse Smoking Status: Former smoker alcohol intake: never substance use type: does not use caffeine: No what type of physical activity do you participate in: other details: physical therapy seatbelt use: always do you feel safe at home: Yes ROS ROS ED Constitutional Constitutional ED: Denies chills, fever(s) or sweats Eyes Eyes: Denies blurry vision or change in vision ENT ENT ED: Denies ear pain or sore throat Cardiovascular Cardiovascular: Reports as per HPI, chest pain and other Details: Lightheadedness ; Denies palpitations or racing heartbeat Respiratory/Chest Respiratory/Chest: Denies cough, dyspnea or sputum Gastrointestinal Gastrointestinal: Denies abdominal pain, constipation, diarrhea, nausea or vomiting Genitourinary Genitourinary ED: Denies dysuria, hematuria or urinary frequency Musculoskeletal Musculoskeletal: Denies arthralgias, myalgias or neck pain Integumentary Denies abscess, Abrasions or rash Neurologic Neurologic: Denies headache(s), paresthesias or weakness Psychiatric Psychiatric: Denies anxiety, depression, suicidal ideation or suicidal thoughts Endocrine Endocrinology: Denies polydipsia or polyuria EXAM Physical Exam Const Vital Signs: 03/25/23 23:08 03/25/23 23:11 03/25/23 23:25 Temperature 98.6 F Temperature Source Temporal Pulse Rate 80 93 Respiratory Rate 20 H 29 H Respiratory Effort Blood Pressure 116/94 H 119/64 Blood Pressure Mean 101 82 Pulse Ox 92 97 Oxygen Delivery Method Room Air Room Air Room Air 03/26/23 00:12 03/26/23 00:12 03/26/23 01:02 Temperature Temperature Source Pulse Rate 87 Respiratory Rate 16 Respiratory Effort Normal Blood Pressure 123/63 H 168/112 H Blood Pressure Mean 83 Pulse Ox 98 Oxygen Delivery Method 03/26/23 01:05 03/26/23 01:24 03/26/23 02:28 Temperature Temperature Source Pulse Rate 86 93 69 Respiratory Rate 22 H 22 H 19 H Respiratory Effort Blood Pressure 122/62 H 110/68 103/61 Blood Pressure Mean 82 82 75 Pulse Ox 92 95 91 Oxygen Delivery Method Room Air Room Air Positive well nourished General Appearance ED: NAD; Negative for pallor HEENT Reports moist mucous membranes normocephalic and atraumatic Eyes PERRL and EOMs intact bilaterally Neck no lymphadenopathy Chest Wall inspection of chest normal Resp normal respiratory effort and clear to auscultation bilaterally Auscultation: Negative for rales, rhonchi or wheezes Cardio regular rate and regular rhythm Extremity normal to inspection Neuro oriented x3 and CN's II-XII intact bilaterally Sensorium / Orientation: awake and alert Psych mental status grossly normal Skin no rashes or lesions noted General Skin Exam: Negative for jaundice or pallor Heart Score History: Moderately Suspicious ECG: Normal Age: >/= 65 years Risk Factors: >/= 3 Risk Factors or History of CAD Score: 5 MDM MDM MDM Narrative Medical decision making narrative: Patient presenting with chest pain. She states is now quiet. Differential includes ACS, CHF, pneumonia, dehydration, electrolyte abnormalities. Patient initially states she was pain-free but then she requested something for pain. I gave her morphine and this seemed to help her pain for a while. Her pain did return and she was given nitroglycerin which she said did help the pain. CBC showed a normal white blood cell count, hemoglobin stable at 13.1, platelets 324. Renal function and electrolytes essentially normal. High-sensitivity troponin is 12. BNP slightly elevated 148 however her chest x-ray my interpretation shows no acute process. The radiologist interprets this and agrees. I was called to the room because the patient was having shaking episode with her right hand. She apparently has a history of seizures and she is on lamotrigine for the. I reviewed Dr. Cobian's note where he recommended putting her back on the medication because she was having shaking episodes per the . The one that I witnessed in the room she was awake and talking during episode. The nurse tells me that she thought she had 1 where she was not responding however she immediately woke up and started talking with no postictal phase which is not consistent with a seizure. I did review her previous EEG which did not show any seizure-like activity. I discussed with the at length and he feels comfortable taking her home. Delta troponin was 13 therefore her work-up is normal. Return precautions were discussed. Impression: 1. Chest pain 2. Shaking episode Lab Data Labs: Laboratory Results - last 24 hr 03/25/23 03/26/23 22:51 01:48 WBC 9.0 RBC 4.14 L Hgb 13.1 Hct 42.4 MCV 102.4 H MCH 31.6 MCHC 30.9 L RDW Std Deviation 51.8 H RDW Coeff of Robert 13.6 Plt Count 324 MPV 10.0 Immature Gran % (Auto) 0.200 Neut % (Auto) 64.5 Lymph % (Auto) 23.2 [place] % (Auto) 8.3 Eos % (Auto) 2.9 Baso % (Auto) 0.9 Absolute Neuts (auto) 5.8 Absolute Lymphs (auto) 2.08 Nucleated RBC % 0 Sodium 139 Potassium 4.4 Chloride 105 Carbon Dioxide 30.0 Anion Gap 4 L BUN 28 H Creatinine 1.02 Estim Creat Clear Calc 39.93 Est GFR (MDRD) Af Amer 66 Est GFR (MDRD) Non-Af 55 L BUN/Creatinine Ratio 27.5 H Glucose 97 Calcium 10.2 H Troponin I High Sens 12 13 B-Natriuretic Peptide 148.4 H Radiography Diagnostic Testing: Clinical Impression(s) from Imaging Studies Chest X-Ray 03/25/23 23:43 IMPRESSION: No acute findings in the chest. Electronically Signed: Los Rodriguez MD at 0:11 EST Reading Location ID and State: [facility] / [place] Tel , Service support , Brain CT 03/26/23 01:21 IMPRESSION: 1. No acute intracranial abnormalities. 2. Age-related changes. Electronically Signed: Los Rodriguez MD at 2:01 EST , Discharge Plan Triage Chief Complaint: Chest Pain ED Provider: Luis Christina Dx/Rx/DC Orders Instructions: ED Chest Pain, Noncardiac Prescriptions: No Action duloxetine 30 mg capsule,delayed release(DR/EC) 30 mg PO DAILY famotidine 40 mg tablet 40 mg PO BID cyanocobalamin (vitamin B-12) [Vitamin B-12] 1,000 mcg tablet 1,000 mcg PO DAILY furosemide 40 mg tablet 40 mg PO DAILY Rx Instructions: AM potassium chloride [Klor-Con M20] 20 mEq tablet,ER particles/crystals 20 meq PO DAILY spironolactone 25 mg tablet 25 mg PO DAILY Qty: 90 3RF Eliquis 2.5 mg tablet 2.5 mg PO BID Qty: 180 3RF Myrbetriq 25 mg tablet extended release 24 hr 25 mg PO DAILY lamotrigine 100 mg tablet 100 mg PO BID Qty: 60 5RF donepezil 5 mg tablet 5 mg PO QHS Qty: 30 0RF donepezil 10 mg tablet 10 mg PO QHS Qty: 30 5RF Rx Instructions: Begin after completing one month of treatment of donepezil 5mg nightly nitroglycerin 0.4 mg Tablet, Sublingual 0.4 mg sublingual Q5M PRN (Reason: Cardiac/Chest Pain) Qty: 0 0RF diltiazem HCl [Cartia XT] 120 mg capsule,extended release 24hr 120 mg PO BID acetaminophen 500 mg Tablet 1,000 mg PO Q6H PRN PRN (Reason: Pain Score 1-10) Qty: 0 0RF cholecalciferol (vitamin D3) [Vitamin D3] 25 mcg (1,000 unit) tablet 50 mcg PO DAILY oxycodone 5 mg Tablet 5 mg PO Q4H PRN PRN (Reason: Pain Score 6-10) 7 Days Qty: 28 0RF Primary Care Provider: Nahomy Bettencourt Referrals: Nahomy Bettencourt MD [Primary Care Provider] - Disposition Disposition: Home, Self Care
[2023-03-26 00:10] LABS: Anion Gap 4 (5-15); BUN 28 mg/dL (7-18); BUN/Creat Ratio 27.5 RATIO (10-20); Calcium,Total 10.2 mg/dL (8.5-10.1); Chloride 105 mmol/L (98-107); Creatinine, Serum 1.02 mg/dL (0.55-1.02); EST Glomerular Filtration Rate 55 mL/min (>60); Est Glom Filt Rate - Afr Amer 66 mL/min (>60); Estimated Creatinine Clearance 39.93 ml/min; Glucose 97 mg/dL (74-106); Potassium 4.4 mmol/L (3.5-5.1); Sodium Level 139 mmol/L (136-145); Troponin-I HS (w/2H Reflex) 12 pg/mL (3.0-54.0)
[2023-03-26 00:11] LABS: BNP,B-Type NATRIURETIC PEPTIDE 148.4 pg/mL (0-100)
[2023-03-26 00:12] VITALS: BP 123/63; RESP 16; O2SAT 98
[2023-03-26] MEDS: Ondansetron 4 MG/2 ML Vial IV (00:30)
[2023-03-26] MEDS: Morphine 4 MG/ML Syringe IV (00:30)
[2023-03-26 01:02] VITALS: BP 168/112; PULSE 87
[2023-03-26] MEDS: Nitroglycerin SL (ED/IMG/CATH) 0.4 MG TABLET SL (01:02)
[2023-03-26 01:05] VITALS: BP 122/62; PULSE 86; RESP 22; O2SAT 92
[2023-03-26] MEDS: LORazepam 2 MG/ML Syringe 1 MG IV (01:13)
--- NOTE | 2023-03-26 01:21 | CT_ITS ---
EXAM: CT HEAD WITHOUT INTRAVENOUS CONTRAST CLINICAL INDICATION: headache TECHNIQUE: Multiple axial images were obtained of the head without intravenous contrast. This CT exam was performed using one or more of the following dose reduction techniques: automated exposure control, adjustment of the mA and/or kV according to patient size, and/or use of iterative reconstruction technique. RADIATION DOSE: CTDIvol = 44.99 mGy, DLP = 779.24 mGy-cm COMPARISON: Head CT 11/06/2022 FINDINGS: BRAIN AND EXTRA-AXIAL SPACES: Diffuse cerebral volume loss. Periventricular small vessel ischemic changes. No intra- or extra-axial hemorrhage. No intracranial mass or mass effect. Posterior fossa structures are unremarkable. No hydrocephalus. Basal cisterns are patent. BONES/JOINTS: Unremarkable. No discrete lytic or blastic abnormalities. VASCULATURE: Vascular calcifications. SINUSES: Unremarkable as visualized. Clear. MASTOID AIR CELLS: Unremarkable. Clear. ORBITS: Visualized globes, extraocular muscles, optic nerves and retrobulbar fat appear unremarkable. ASPECTS: 10 CT/Brain/Head without Contrast IMPRESSION: 1. No acute intracranial abnormalities. 2. Age-related changes. Electronically Signed: Los Rodriguez MD at 2:01 EST ,
[2023-03-26 01:24] VITALS: BP 110/68; PULSE 93; RESP 22; O2SAT 95
[2023-03-26 01:35] LABS: Reflex Troponin-HS? (from REC) Y
[2023-03-26 02:14] LABS: Troponin-I HS 13 pg/mL (3.0-54.0)
[2023-03-26 02:28] VITALS: BP 103/61; PULSE 69; RESP 19; O2SAT 91
== END 2023-03-26 03:22 | disposition home or self-care (01) ==
PROVIDERS: Emergency Provider Student in an Organized Health Care Education/Training Program; PCP Family Medicine; Visit Provider Student in an Organized Health Care Education/Training Program
DX: R07.9 Chest pain, unspecified (principal); I11.0 Hypertensive heart disease with heart failure; I50.9 Heart failure, unspecified; E11.42 Type 2 diabetes mellitus with diabetic polyneuropathy; I48.91 Unspecified atrial fibrillation; I25.10 Atherosclerotic heart disease of native coronary artery without angina pectoris; Z87.891 Personal history of nicotine dependence
CPT/HCPCS: 70450; 71045; 80048; 83880; 84484; 85025; 93005; 96374; 96375; 99285; A4216; J2405

== ENCOUNTER 2023-04-08 00:46 | Emergency (ER) | payer MEDICARE, OTHER, SELFPAY ==
[2023-04-08 00:48] VITALS: BP 122/69; PULSE 72; RESP 15; TEMP 36.7; O2SAT 98; BMI 25.0
[2023-04-08 00:57] VITALS: O2SAT 97
--- NOTE | 2023-04-08 00:57 | CT_ITS ---
STUDY: CT BRAIN WITHOUT CONTRAST REASON FOR EXAM: Female, 82 years old. trauma RADIATION DOSAGE (If Supplied By Facility): CTDIvol = ( 44.99 ) mGy, DLP = ( 846.73 ) mGycm TECHNIQUE: Transaxial CT imaging of the brain was performed without administration of intravenous contrast material. Individualized dose optimization techniques were used for this CT. COMPARISON: 03/26/2023. FINDINGS: Posterior soft tissue hematoma with laceration demonstrated along the parietal occipital junction. Normal calvarium with no distinct fracture. There is mild cerebral atrophy with widening of the extra-axial spaces and ventricular dilatation. There are areas of decreased attenuation within the white matter tracts of the supratentorial brain, consistent with mild microvascular disease changes. Normal basal ganglia and thalami. Normal brainstem. Normal cerebellum. There is no intracranial hemorrhage. There are no findings of an acute ischemic infarction. Normal visualized paranasal sinuses. CT/Brain/Head without Contrast IMPRESSION: Posterior scalp laceration as described with no skull fracture. Chronic changes as described with no acute intracranial hemorrhage or space-occupying lesion. Electronically Signed: Michelle Falk MD at 2:20 EST ,
--- NOTE | 2023-04-08 01:04 | EX.ED.GENINJ ---
HPI History of Present Illness Chief Complaint: Head Injury Detail of Chief Complaint: Posterior scalp laceration. Informant: patient Onset/Context/Timing Onset: Today Mechanism/Context: Blunt Injury and Fall Current Severity: Mild Maximum Severity: Mild Associated Symptoms Associated Symptoms: Negative for Parasthesias, Weakness, Loss of function, Inability to ambulate, Loss of consciousness or Amnesia Narrative Narrative: 82-year-old female history of A-fib, diabetes and dementia. Chart has listed that she is on Eliquis she denies being on blood thinners. Reportedly was asleep rolled out of bed and struck her head on the nightstand causing a posterior scalp laceration. She is at home with her . They called the squad who brought her in. She is unsure of her last tetanus shot. Denies any other injuries. Denies any neck pain. Tetanus Immunization: Unknown Prior similar symptoms: No Recent Illness/Hospitalization: No PFSH PFSH Medical History Abnormal stress test Acute postoperative pain of right knee Acute systolic congestive heart failure Ambulates with cane Anxiety Aortic stenosis Aortic valve stenosis with insufficiency Arthritis Atherosclerotic heart disease of [place] coronary artery without angina pectoris Atrial fibrillation Back pain Cardiology follow-up encounter Cardiomyopathy Cellulitis of chest wall Chronic constipation Chronic cough Congestive heart failure (CHF) Debility Debility Dementia Depression Depression Diabetes Diabetes mellitus Diabetic neuropathy Diabetic polyneuropathy Dietary restriction DM2 (diabetes mellitus, type 2) Epilepsy Essential hypertension Former smoker H/O cardiac murmur History of atrial fibrillation History of echocardiogram History of left heart catheterization (LHC) (~06/02/22) History of pain when walking History of steroid therapy History of stress test Hx of back injury Hx of vaginal delivery Hypertension Hypertension Hypertension Inability to ambulate due to knee Injury of back Injury of head and neck Mitral regurgitation Nephrolithiasis Neuropathy Neuropathy, diabetic Other nursing home (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 Parkinson's disease Paroxysmal atrial fibrillation Pericardial effusion Pleural effusion due to CHF (congestive heart failure) Preoperative cardiovascular examination Rotator cuff tear arthropathy of left shoulder Tremor Vitamin D deficiency Wears glasses Home Medications duloxetine 30 mg capsule,delayed release 30 mg PO DAILY NEUROPATHY 09/22/20 [History Last Taken 08/28/22] nitroglycerin 0.4 mg sublingual tablet 0.4 mg sublingual Q5M PRN Cardiac/Chest Pain #0 tabs 06/11/22 [Rx Last Taken Unknown] cyanocobalamin (vitamin B-12) 1,000 mcg tablet (Vitamin B-12) 1,000 mcg PO DAILY supplement 08/10/22 [History Last Taken 08/29/22] famotidine 40 mg tablet 40 mg PO BID stomach 08/10/22 [History Last Taken 08/29/22] diltiazem HCl 120 mg capsule,extended release 24 hr (Cartia XT) 120 mg PO BID heart 08/29/22 [History Last Taken 08/29/22] acetaminophen 500 mg tablet 1,000 mg (2 x 500 mg) PO Q6H PRN PRN Pain Score 1-10 #0 tabs 09/17/22 [Rx Last Taken Unknown] oxycodone 5 mg tablet 5 mg PO Q4H PRN PRN Pain Score 6-10 7 days #28 tabs 11/24/22 [Rx Last Taken Unknown] cholecalciferol (vitamin D3) 25 mcg (1,000 unit) tablet (Vitamin D3) 50 mcg PO DAILY Supplement 12/28/22 [History Last Taken Unknown] mirabegron 25 mg tablet,extended release 24 hr (Myrbetriq) 25 mg PO DAILY 12/28/22 [History Last Taken Unknown] apixaban 2.5 mg tablet (Eliquis) 2.5 mg PO BID #180 tabs 01/04/23 [Rx Last Taken Unknown] furosemide 40 mg tablet 40 mg PO DAILY Diuretic 01/04/23 [History Last Taken Unknown] potassium chloride 20 mEq tablet,extended release(part/cryst) (Klor-Con M) 20 meq PO DAILY Supplement 01/04/23 [History Last Taken Unknown] spironolactone 25 mg tablet 25 mg PO DAILY #90 tabs 01/04/23 [Rx Last Taken Unknown] donepezil 10 mg tablet 10 mg PO QHS #30 tabs 01/16/23 [Rx Last Taken Unknown] donepezil 5 mg tablet 5 mg PO QHS #30 tabs 01/16/23 [Rx Last Taken Unknown] lamotrigine 100 mg tablet 100 mg PO BID Seizures #60 tabs 01/16/23 [Rx Last Taken Unknown] Allergy/AdvReac Type Severity Reaction Status Date / Time levetiracetam Allergy Other Verified 04/08/23 00:54 nickel Allergy Other Verified 04/08/23 00:54 sulfamethoxazole Allergy Itching Verified 04/08/23 00:54 [From Bactrim] trimethoprim [From Bactrim] Allergy Itching Verified 04/08/23 00:54 codeine AdvReac Nausea Verified 04/08/23 00:54 milk AdvReac Nausea/Vom/ Verified 04/08/23 00:54 Diarrhea Family History Father No problems noted. Mother No problems noted. Surgical History Amputated toe of right foot Deviated septum History of appendectomy History of cholecystectomy History of hysterectomy History of left hip hemiarthroplasty History of neck surgery History of tonsillectomy History of total right knee replacement (TKR) Hx of cystoscopy Hx of fusion of cervical spine S/P total knee arthroplasty Social History household members: spouse Smoking Status: Former smoker alcohol intake: never substance use type: does not use caffeine: No what type of physical activity do you participate in: other details: physical therapy seatbelt use: always do you feel safe at home: Yes ROS ROS ED ROS Narrative Patient denies any recent illness. Said she was fine when she went to bed tonight. Review of Systems ROS Unobtainable: Denies due to encephalopathy Constitutional Constitutional ED: Denies chills or fever(s) Eyes Eyes: Denies blurry vision ENT ENT ED: Denies ear pain Cardiovascular Cardiovascular: Denies chest pain Respiratory/Chest Respiratory/Chest: Denies cough Gastrointestinal Gastrointestinal: Denies abdominal pain, nausea or vomiting Genitourinary Genitourinary ED: Denies dysuria Musculoskeletal Musculoskeletal: Denies arthralgias Integumentary Denies abscess Neurologic Neurologic: Denies headache(s) Psychiatric Psychiatric: Denies anxiety or depression Endocrine Endocrinology: Denies cold intolerance Hematologic/Lymphatic Hematologic/Lymphatic: Denies easy bleeding Allergic/Immunologic Allergic/Immunologic ED: Denies mouth swelling EXAM Physical Exam Narrative Exam Narrative: Well-appearing 82-year-old female. Sitting upright in bed. Nurse present at bedside. Vital signs are stable and afebrile. She is in no distress. She has a dressing on her scalp. Significant blood on her robe. Pupils round reactive light. Extra motions are intact. Speaking without difficulty. No facial trauma. Bloodsoaked scalp dressing. C-spine and trachea nontender. Lungs clear. Heart regular rhythm. Chest wall and ribs nontender. Abdomen soft nontender. Pelvic girdle intact. Moving all 4 extremities. Nontender. No edema. No deformity. She has a dressing on her right foot and ankle from recent podiatry work. She is awake and alert. She is answering questions and following commands. She is moving all 4 extremities. Const Vital Signs: 04/08/23 00:48 04/08/23 00:57 Temperature 98.0 F Temperature Source Temporal Pulse Rate 72 Respiratory Rate 15 Respiratory Effort Non-Labored Respiratory Depth Normal Respiratory Pattern Normal Blood Pressure 122/69 H Blood Pressure Mean 86 Pulse Ox 98 97 Oxygen Delivery Method Room Air Room Air Positive well nourished and well developed; Negative for obese, cachectic, contractures or unkempt General Appearance ED: well developed and NAD; Negative for unkempt, cachectic or contractures Nutritional Appearance: Negative for cachectic or obese HEENT HEENT Narrative: Posterior scalp laceration. Blood soaked dressing. trauma and tenderness; Negative for atraumatic Eyes PERRL and EOMs intact bilaterally Neck full ROM General: Negative for tenderness Chest Wall inspection of chest normal and palpation of chest normal Breast/Axilla Inspection: Negative for other Resp normal respiratory effort and clear to auscultation bilaterally Effort and Inspection: Negative for pain with movement Auscultation: Negative for rales, rhonchi or wheezes Cardio regular rhythm, S1 normal heart sound, S2 normal heart sound and no murmurs Jugular Venous Distention: Negative for other Palpation: Negative for palpable S3 Rate: regular rate GI normal to inspection, nondistended, normoactive bowel sounds, non-tender, non-distended and no masses Inspection: Negative for abdominal distention Auscultation: normoactive bowel sounds Palpation: soft; Negative for tender Bladder / Kidney Exam: No other Back/Spine normal to inspection and no thoracic nor lumbar tenderness General Back: Negative for CVA tenderness Thoracic Spine / Upper Back: Negative for thoracic spinal tenderness Lumbar Spine / Lower Back: Negative for straight leg raise negative bilaterally Extremity normal to inspection and full ROM Extremity Narrative: Dressing on right foot and ankle. General Extremety ED: Negative for deformity, edema or tenderness General Extremity: Negative for deformity or edema Neuro moves all extremities and no focal motor deficits Yang Coma Scale: document GCS findings Spontaneous Obeys Commands Oriented 15 Sensorium / Orientation: alert, oriented to person and oriented to place Motor Exam: strength 5/5 throughout Psych mental status grossly normal and thought process normal Appearance: Negative for unkempt Attitude: No agitated Mood & Affect: Negative for depressed, anxious or tearful Skin no rashes or lesions noted, No no wounds, skin turgor normal and no jaundice Skin Narrative: Posterior scalp laceration. Rashes: No rashes noted Trauma: Negative for abrasion PROC Procedures Lacerations Posterior scalp laceration repair:: Length: 2.5 in Depth: Sub Q Shape: Linear Prep: Shure-Clens Laceration repair: Irrigated, Lidocaine with epi, Local, Skin sutures and Wound explored Number of Sutures/[place]: 6 Suture Information: Ethilon, Simple and - (3-0 ethilon) Comment: Patient had a posterior scalp laceration approximately 2.5 inches. Local anesthetized with lidocaine with epinephrine. Cleaned with Shur-Clens. Washed and irrigated with saline. Explored. Involve the skin and subcu tissue. There was some hematoma. No step-off. Closed using 6 simple interrupted 3-0 Ethilon sutures. Proper hemostasis and wound closure is obtained. Patient tolerated procedure well. MDM MDM MDM Narrative Medical decision making narrative: 82-year-old female fell out of bed causing a laceration to the back of her head after she struck it on what is believed to be the nightstand. Does not believe she is on blood thinners. Has a history of A-fib and previously had blood thinners listed on her old chart. CAT scan will be obtained of her brain. The scalp will be cleaned. And I suspect we will need to close a scalp laceration. I have not been able to evaluate that as of this time. We will look and see if she has had a recent tetanus shot if not will be updated. Patient is doing much better now that her scalp laceration has been repaired using 3-0 Ethilon suture. I discussed wound care and head injury instructions with both her and her . We went over the CAT scan results. Nurses will again clean her scalp. Apply head dressing. And ambulate her to make sure she is walking okay before we discharge her to home. Tetanus was updated. Patient ambulated and did well with a walker. She will be discharged home. History & Record Review Discussion w/independent historian: Patient Additional record(s) reviewed:: Prior inpatient record, Prior outpatient record, Prior ED visit and Prior labs Radiography Diagnostic Testing: Clinical Impression(s) from Imaging Studies Brain CT 04/08/23 00:57 IMPRESSION: Posterior scalp laceration as described with no skull fracture. Chronic changes as described with no acute intracranial hemorrhage or space-occupying lesion. Electronically Signed: Michelle Falk MD at 2:20 EST , Discharge Plan Triage Chief Complaint: Head Injury ED Provider: Benjamin Quigley Dx/Rx/DC Orders Clinical Impression: Head injury, Fall, Laceration of scalp Instructions: ED Head Injury (Adult), ED Laceration: All Closures Prescriptions: No Action duloxetine 30 mg capsule,delayed release(DR/EC) 30 mg PO DAILY famotidine 40 mg tablet 40 mg PO BID cyanocobalamin (vitamin B-12) [Vitamin B-12] 1,000 mcg tablet 1,000 mcg PO DAILY furosemide 40 mg tablet 40 mg PO DAILY Rx Instructions: AM potassium chloride [Klor-Con M20] 20 mEq tablet,ER particles/crystals 20 meq PO DAILY spironolactone 25 mg tablet 25 mg PO DAILY Qty: 90 3RF Eliquis 2.5 mg tablet 2.5 mg PO BID Qty: 180 3RF Myrbetriq 25 mg tablet extended release 24 hr 25 mg PO DAILY lamotrigine 100 mg tablet 100 mg PO BID Qty: 60 5RF donepezil 5 mg tablet 5 mg PO QHS Qty: 30 0RF donepezil 10 mg tablet 10 mg PO QHS Qty: 30 5RF Rx Instructions: Begin after completing one month of treatment of donepezil 5mg nightly nitroglycerin 0.4 mg Tablet, Sublingual 0.4 mg sublingual Q5M PRN (Reason: Cardiac/Chest Pain) Qty: 0 0RF diltiazem HCl [Cartia XT] 120 mg capsule,extended release 24hr 120 mg PO BID acetaminophen 500 mg Tablet 1,000 mg PO Q6H PRN PRN (Reason: Pain Score 1-10) Qty: 0 0RF cholecalciferol (vitamin D3) [Vitamin D3] 25 mcg (1,000 unit) tablet 50 mcg PO DAILY oxycodone 5 mg Tablet 5 mg PO Q4H PRN PRN (Reason: Pain Score 6-10) 7 Days Qty: 28 0RF Primary Care Provider: Nahomy Bettencourt Referrals: Nahomy Bettencourt MD [Primary Care Provider] - 10 Day for suture removal Activity Restrictions/Additional Instructions: Wash your hair carefully and rinse it out well. [place] and/or stitches out in 10 days. Tylenol for pain. Disposition Disposition: Home, Self Care
[2023-04-08] MEDS: Lidocaine 1% /Epi 1:100 (20ml) 20 ML Vial 10 ML INFILT (01:44)
[2023-04-08] MEDS: Diphth,Pertuss(Acell),Tet Vac 0.5 ML Vial IM (01:44)
== END 2023-04-08 03:44 | disposition home or self-care (01) ==
PROVIDERS: Emergency Provider Emergency Medicine; PCP Family Medicine; Visit Provider Emergency Medicine
DX: S01.01XA Laceration without foreign body of scalp, initial encounter (principal); F03.90 Unspecified dementia, unspecified severity, without behavioral disturbance, psychotic disturbance, mood disturbance, and anxiety; I50.9 Heart failure, unspecified; I42.9 Cardiomyopathy, unspecified; I11.0 Hypertensive heart disease with heart failure; E11.42 Type 2 diabetes mellitus with diabetic polyneuropathy; I48.91 Unspecified atrial fibrillation; W19.XXXA Unspecified fall, initial encounter; W06.XXXA Fall from bed, initial encounter; Y92.003 Bedroom of unspecified non-institutional (private) residence as the place of occurrence of the external cause; Z23 Encounter for immunization; I25.10 Atherosclerotic heart disease of native coronary artery without angina pectoris; Z79.01 Long term (current) use of anticoagulants; Z79.899 Other long term (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; Z87.891 Personal history of nicotine dependence
CPT/HCPCS: 12002; 70450; 90471; 90715; 99285

== ENCOUNTER 2023-04-08 20:38 | Emergency (ER) | payer MEDICARE, OTHER, SELFPAY ==
[2023-04-08 20:42] VITALS: BP 121/63; PULSE 58; RESP 16; TEMP 37.1; O2SAT 99; BMI 24.3
--- NOTE | 2023-04-08 20:42 | CT_ITS ---
STUDY: CT BRAIN WITHOUT CONTRAST REASON FOR EXAM: Female, 82 years old. headache RADIATION DOSAGE (If Supplied By Facility): CTDIvol = ( 44.99 ) mGy, DLP = ( 796.11 ) mGycm TECHNIQUE: Transaxial CT imaging of the brain was performed without administration of intravenous contrast material. Individualized dose optimization techniques were used for this CT. COMPARISON: No relevant priors. FINDINGS: Normal soft tissue structures. Normal calvarium. Calcific plaquing of the cavernous carotids Moderate atrophy and periventricular white matter ischemic changes. Normal basal ganglia and thalami. Normal brainstem. Normal cerebellum. There is no intracranial hemorrhage. There are no findings of an acute ischemic infarction. Normal visualized paranasal sinuses. Postsurgical changes of the orbits CT/Brain/Head without Contrast IMPRESSION: Atrophy and moderate periventricular white matter ischemic changes. No evidence for obstructive hydrocephalus, mass or acute intracranial bleed. Electronically Signed: Blu Larsen MD at 21:26 EST Reading Location ID and State: [facility] / [place] Tel , Service support ,
[2023-04-08 20:46] VITALS: BP 121/63; PULSE 58; RESP 16; TEMP 37.1; O2SAT 99
[2023-04-08 21:11] VITALS: BP 110/64; PULSE 77; RESP 15; O2SAT 100
[2023-04-08] MEDS: fentaNYL 100 MCG/2 ML Ampul 25 MCG IV (23:30)
--- NOTE | 2023-04-08 23:30 | EDS_ITS ---
HPI History of Present Illness Chief Complaint: Headache Narrative Narrative: Patient is an 82-year-old female who lives with her who has past medical history of epilepsy dementia diabetes paroxysmal A-fib and is on Eliquis. She was seen last night between 1 and 4 in the morning because she fell out of bed and injured the back of her head. She had a head CT obtained at that time which revealed no acute skull fracture or brain bleed and she had a wound sewn up and she was discharged home. According to patient and she has been doing well throughout the day at her baseline mental status but this evening began complaining of a headache in the back of her head. and patient states there was no repeat trauma. states that he gave her oxycodone with minimal symptom improvement and therefore he brought her into the hospital for repeat evaluation [facility] Medical History Abnormal stress test Acute postoperative pain of right knee Acute systolic congestive heart failure Ambulates with cane Anxiety Aortic stenosis Aortic valve stenosis with insufficiency Arthritis Atherosclerotic heart disease of [place] coronary artery without angina pectoris Atrial fibrillation Back pain Cardiology follow-up encounter Cardiomyopathy Cellulitis of chest wall Chronic constipation Chronic cough Congestive heart failure (CHF) Debility Debility Dementia Depression Depression Diabetes Diabetes mellitus Diabetic neuropathy Diabetic polyneuropathy Dietary restriction DM2 (diabetes mellitus, type 2) Epilepsy Essential hypertension Former smoker H/O cardiac murmur History of atrial fibrillation History of echocardiogram History of left heart catheterization (LHC) (~06/02/22) History of pain when walking History of steroid therapy History of stress test Hx of back injury Hx of vaginal delivery Hypertension Hypertension Hypertension Inability to ambulate due to knee Injury of back Injury of head and neck Mitral regurgitation Nephrolithiasis Neuropathy Neuropathy, diabetic Other long-term (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 Parkinson's disease Paroxysmal atrial fibrillation Pericardial effusion Pleural effusion due to CHF (congestive heart failure) Preoperative cardiovascular examination Rotator cuff tear arthropathy of left shoulder Tremor Vitamin D deficiency Wears glasses Home Medications duloxetine 30 mg capsule,delayed release 30 mg PO QHS NEUROPATHY 09/22/20 [History Last Taken 08/28/22] nitroglycerin 0.4 mg sublingual tablet 0.4 mg sublingual Q5M PRN Cardiac/Chest Pain #0 tabs 06/11/22 [Rx Last Taken Unknown] cyanocobalamin (vitamin B-12) 1,000 mcg tablet (Vitamin B-12) 1,000 mcg PO DAILY supplement 08/10/22 [History Last Taken 08/29/22] famotidine 40 mg tablet 20 mg PO BID stomach 08/10/22 [History Last Taken 08/29/22] diltiazem HCl 120 mg capsule,extended release 24 hr (Cartia XT) 120 mg PO BID heart 08/29/22 [History Last Taken 08/29/22] acetaminophen 500 mg tablet 1,000 mg (2 x 500 mg) PO Q6H PRN PRN Pain Score 1-10 #0 tabs 09/17/22 [Rx Last Taken Unknown] oxycodone 5 mg tablet 5 mg PO Q4H PRN PRN Pain Score 6-10 7 days #28 tabs 11/24/22 [Rx Last Taken Unknown] cholecalciferol (vitamin D3) 25 mcg (1,000 unit) tablet (Vitamin D3) 50 mcg PO DAILY Supplement 12/28/22 [History Last Taken Unknown] mirabegron 25 mg tablet,extended release 24 hr (Myrbetriq) 25 mg PO DAILY 12/28/22 [History Last Taken Unknown] apixaban 2.5 mg tablet (Eliquis) 2.5 mg PO BID #180 tabs 01/04/23 [Rx Last Taken Unknown] furosemide 40 mg tablet 40 mg PO DAILY Diuretic 01/04/23 [History Last Taken Unknown] potassium chloride 20 mEq tablet,extended release(part/cryst) (Klor-Con M) 20 meq PO DAILY Supplement 01/04/23 [History Last Taken Unknown] donepezil 10 mg tablet 10 mg PO QHS #30 tabs 01/16/23 [Rx Last Taken Unknown] lamotrigine 100 mg tablet 100 mg PO BID Seizures #60 tabs 01/16/23 [Rx Last Taken Unknown] acetaminophen 650 mg tablet,extended release (8 Hour Pain Reliever) 650 mg PO BID PRN pain 04/08/23 [History Last Taken Unknown] aspirin 81 mg tablet,delayed release (Adult Low Dose Aspirin) 81 mg PO DAILY 04/08/23 [History Last Taken Unknown] gabapentin 100 mg capsule 100 mg PO BID 14 days #28 caps 04/08/23 [Rx Last Taken Unknown] losartan 25 mg tablet 25 mg PO QHS 04/08/23 [History Last Taken Unknown] metoprolol succinate 25 mg tablet,extended release 24 hr 25 mg PO DAILY 04/08/23 [History Last Taken Unknown] spironolactone 25 mg tablet 25 mg PO QHS 04/08/23 [History Last Taken Unknown] Allergy/AdvReac Type Severity Reaction Status Date / Time levetiracetam Allergy Other Verified 04/08/23 20:39 nickel Allergy Other Verified 04/08/23 20:39 sulfamethoxazole Allergy Itching Verified 04/08/23 20:39 [From Bactrim] trimethoprim [From Bactrim] Allergy Itching Verified 04/08/23 20:39 codeine AdvReac Nausea Verified 04/08/23 20:39 milk AdvReac Nausea/Vom/ Verified 04/08/23 20:39 Diarrhea Family History Father No problems noted. Mother No problems noted. Surgical History Amputated toe of right foot Deviated septum History of appendectomy History of cholecystectomy History of hysterectomy History of left hip hemiarthroplasty History of neck surgery History of tonsillectomy History of total right knee replacement (TKR) Hx of cystoscopy Hx of fusion of cervical spine S/P total knee arthroplasty Social History household members: spouse Smoking Status: Former smoker alcohol intake: never substance use type: does not use caffeine: No what type of physical activity do you participate in: other details: physical therapy seatbelt use: always do you feel safe at home: Yes ROS ROS ED Constitutional Constitutional ED: Denies chills or fever(s) Eyes Eyes: Denies blurry vision or change in vision ENT ENT ED: Denies sore throat Cardiovascular Cardiovascular: Denies chest pain Respiratory/Chest Respiratory/Chest: Denies cough or dyspnea Gastrointestinal Gastrointestinal: Reports nausea; Denies abdominal pain, diarrhea or vomiting Genitourinary Genitourinary ED: Denies dysuria Musculoskeletal Musculoskeletal: Denies myalgias or neck pain Integumentary Reports other Details: Positive scalp laceration ; Denies rash Neurologic Neurologic: Reports headache(s) Hematologic/Lymphatic Hematologic/Lymphatic: Reports easy bleeding and easy bruising EXAM Physical Exam Const Vital Signs: 04/08/23 20:42 04/08/23 20:46 04/08/23 21:11 Temperature 98.8 F 98.8 F Temperature Source Oral Oral Pulse Rate 58 L 58 L 77 Respiratory Rate 16 16 15 Blood Pressure 121/63 H 121/63 H 110/64 Blood Pressure Mean 82 82 79 Pulse Ox 99 99 100 Oxygen Delivery Method Room Air Room Air Room Air 04/09/23 00:00 Temperature Temperature Source Pulse Rate Respiratory Rate Blood Pressure 106/74 Blood Pressure Mean 84 Pulse Ox Oxygen Delivery Method Positive well nourished and well developed General Appearance ED: well developed HEENT HEENT Narrative: Patient has sutures in place to the midline of the occipital scalp consistent with recent trauma. There is surrounding ecchymosis and hematoma consistent with a head injury as well. No signs of depressed or basilar skull fracture. Eyes PERRL and EOMs intact bilaterally Neck supple Neck Narrative: No bony deformity or step-off of the cervical spine no midline pain with palpation No nuchal rigidity or meningeal signs Chest Wall palpation of chest normal Resp normal respiratory effort and clear to auscultation bilaterally Resp Narrative: Breath sounds are diminished throughout but overall clear to auscultation Cardio regular rate and regular rhythm GI non-tender, non-distended and no masses GI Narrative: Abdomen is soft nontender nondistended with hypoactive bowel sounds No voluntary guarding or rigidity no pulsatile mass or fluid wave Auscultation: hypoactive bowel sounds Palpation: soft Back/Spine Back/Spine Narrative: No bony deformity or step-off of the thoracic or lumbar spine no midline pain with palpation Extremity normal to inspection Extremity Narrative: Pelvis is stable there is no shortening or external rotation of either lower extremity Neuro CN's II-XII intact bilaterally Neuro Narrative: Cranial nerves II through XII are grossly intact there are no focal neurologic deficits. The patient does have some left arm weakness which is chronic in nature. There are no new or focal deficits. Patient is at her baseline mental status. Sensorium / Orientation: alert Psych mental status grossly normal Skin Skin Narrative: Hematoma with ecchymosis to the occipital portion of the scalp consistent with previous trauma No signs of infection noted MDM MDM MDM Narrative Medical decision making narrative: Patient presented to the ER with stable vitals and reported no repeat trauma. The fact that she is on Eliquis and struck her head in the last 24 hours does put her at higher risk for them as skull fracture versus subdural versus epidural versus subarachnoid hemorrhage. There is also concern she be developing a secondary infection as the cause of her head. At this time she is afebrile she has a normal neurologic exam and soft tissue changes do not suggest infectious process. With potential that a small bleed was missed at the initial evaluation I did repeat a CT scan without contrast. This revealed no acute finding. As the symptoms appear to be secondary to the previous trauma with the contusion and ecchymosis I did provide the patient with Norflex fentanyl and Zofran. Patient did report improvement of her symptoms. I did discuss with patient and that there is potential for a subarachnoid hemorrhage that was missed each time with a noncontrast CT scan and we discussed lumbar puncture versus CTA. Patient and states that as her headache has improved with the medication I provided they do not want undergo the further imaging or LP at this time. Patient has oxycodone at home to help with pain I will add gabapentin to help control symptoms further and agrees to bring the patient back if her headache persist or worsens despite taking her medication. However at this time she has stable vitals repeat imaging shows no signs of skull fracture or brain bleed she has no sign of infection and her neurologic exam is normal and therefore she is safe for discharge History & Record Review Discussion w/independent historian: Patient and Significant other Radiography Diagnostic Testing: Clinical Impression(s) from Imaging Studies Brain CT 04/08/23 20:42 IMPRESSION: Atrophy and moderate periventricular white matter ischemic changes. No evidence for obstructive hydrocephalus, mass or acute intracranial bleed. Electronically Signed: Blu Larsen MD at 21:26 EST Reading Location ID and State: [facility] / [place] Tel , Service support , Discharge Plan Triage Chief Complaint: Headache ED Provider: Dieter Mohan Dx/Rx/DC Orders Clinical Impression: Contusion of occipital region of scalp, Headache, Diabetes mellitus, Current use of long-term anticoagulation, Dementia, Polyneuropathy Instructions: ED Soft Tissue Contusion, ED Headache Unspecified Prescriptions: New gabapentin 100 mg capsule 100 mg PO BID 14 Days Qty: 28 0RF No Action duloxetine 30 mg capsule,delayed release(DR/EC) 30 mg PO QHS famotidine 40 mg tablet 20 mg PO BID cyanocobalamin (vitamin B-12) [Vitamin B-12] 1,000 mcg tablet 1,000 mcg PO DAILY furosemide 40 mg tablet 40 mg PO DAILY Rx Instructions: AM potassium chloride [Klor-Con M20] 20 mEq tablet,ER particles/crystals 20 meq PO DAILY Eliquis 2.5 mg tablet 2.5 mg PO BID Qty: 180 3RF Myrbetriq 25 mg tablet extended release 24 hr 25 mg PO DAILY lamotrigine 100 mg tablet 100 mg PO BID Qty: 60 5RF donepezil 10 mg tablet 10 mg PO QHS Qty: 30 5RF Rx Instructions: Begin after completing one month of treatment of donepezil 5mg nightly nitroglycerin 0.4 mg Tablet, Sublingual 0.4 mg sublingual Q5M PRN (Reason: Cardiac/Chest Pain) Qty: 0 0RF diltiazem HCl [Cartia XT] 120 mg capsule,extended release 24hr 120 mg PO BID acetaminophen 500 mg Tablet 1,000 mg PO Q6H PRN PRN (Reason: Pain Score 1-10) Qty: 0 0RF cholecalciferol (vitamin D3) [Vitamin D3] 25 mcg (1,000 unit) tablet 50 mcg PO DAILY oxycodone 5 mg Tablet 5 mg PO Q4H PRN PRN (Reason: Pain Score 6-10) 7 Days Qty: 28 0RF metoprolol succinate 25 mg tablet extended release 24 hr 25 mg PO DAILY Patient Comments: take 1 tablet by mouth once daily spironolactone 25 mg tablet 25 mg PO QHS losartan 25 mg tablet 25 mg PO QHS Patient Comments: take 1 tablet by mouth once daily aspirin [Adult Low Dose Aspirin] 81 mg tablet,delayed release (DR/EC) 81 mg PO DAILY acetaminophen [8 Hour Pain Reliever] 650 mg tablet extended release 650 mg PO BID PRN (Reason: pain) Primary Care Provider: Nahomy Bettencourt Referrals: Nahomy Bettencourt MD [Primary Care Provider] - Activity Restrictions/Additional Instructions: Please continue the oxycodone every 6 hours to help control pain and add the gabapentin twice a day for improved pain control. The head CT today revealed no skull fracture or developing brain bleed. If you have any further concerns or worsening of symptoms please return for repeat evaluation Disposition Disposition: Home, Self Care Discharge Date/Time: 04/09/23 00:02
[2023-04-08] MEDS: Ondansetron 4 MG/2 ML Vial IV (23:31)
[2023-04-08] MEDS: Orphenadrine 60 MG/2 ML Ampul IV (23:32)
[2023-04-09] VITALS: BP 106/74
== END 2023-04-09 00:02 | disposition home or self-care (01) ==
PROVIDERS: Emergency Provider Emergency Medicine; PCP Family Medicine; Visit Provider Emergency Medicine
DX: S00.03XA Contusion of scalp, initial encounter (principal); F02.80 Dementia in other diseases classified elsewhere, unspecified severity, without behavioral disturbance, psychotic disturbance, mood disturbance, and anxiety; I11.0 Hypertensive heart disease with heart failure; I50.9 Heart failure, unspecified; E11.42 Type 2 diabetes mellitus with diabetic polyneuropathy; I48.0 Paroxysmal atrial fibrillation; Z87.891 Personal history of nicotine dependence; I25.10 Atherosclerotic heart disease of native coronary artery without angina pectoris; Z79.01 Long term (current) use of anticoagulants; G20.A1 Parkinson's disease without dyskinesia, without mention of fluctuations; Z79.82 Long term (current) use of aspirin; Z79.899 Other long term (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; W06.XXXA Fall from bed, initial encounter
CPT/HCPCS: 70450; 96374; 96375; 99284; A4216; J2405

== ENCOUNTER 2023-04-11 17:48 | Emergency (ER) | payer MEDICARE, OTHER, SELFPAY ==
[2023-04-11 17:49] VITALS: BP 100/45; PULSE 55; RESP 16; TEMP 36.5; O2SAT 98; BMI 23.9
--- NOTE | 2023-04-11 18:05 | EKG12_ITS ---
Test Reason : DYSRHYTHMIA Blood Pressure : / mmHG Vent. Rate : 067 BPM Atrial Rate : 000 BPM P-R Int : 000 ms QRS Dur : 148 ms QT Int : 408 ms P-R-T Axes : 000 -34 142 degrees QTc Int : 431 ms Atrial fibrillation Left axis deviation Left bundle branch block Abnormal ECG Confirmed by CAITLIN LYNN, ABI ([id number]), pictures editor MAMADOU TROY ([id number]) on 04/12/2023 7:52:47 AM Referred By: Confirmed By:ABI TUCKER MD
--- NOTE | 2023-04-11 18:06 | CT_ITS ---
STUDY: CT CERVICAL SPINE WITHOUT CONTRAST REASON FOR EXAM: Female, 82 years old. Cervical pain RADIATION DOSAGE (If Supplied By Facility): CTDIvol = ( 16.34 ) mGy, DLP = ( 351.86 ) mGycm TECHNIQUE: High resolution transaxial imaging was performed without contrast material. Sagittal and coronal images were reconstructed. Individualized dose optimization techniques were used for this CT. COMPARISON: None FINDINGS: Normal craniovertebral junction. Normal anterior atlantoaxial articulation. Normal odontoid process. There is straightening of the normal cervical lordosis. There is no acute fracture. There is anterior fusion from C5 to C7. Normal vertebral bodies and posterior osseous elements. C2-3: Normal endplates. Normal disc height and morphology. Facet spurring. Normal central canal and intervertebral neuroforamina. C3-4: Mild spurring. Facet spurring. No canal stenosis. Left foraminal narrowing. C4-5: Disc space narrowing. Mild spurring. Facet spurring. No canal stenosis. Left greater than right foraminal narrowing. C5-6: Anterior fusion. Spurring asymmetric to the left. Mild facet spurring. Moderate canal stenosis. Left foraminal narrowing. C6-7: Anterior fusion. Mild spurring. Mild facet spurring. No canal stenosis. Mild left foraminal narrowing. C7-T1: Normal endplates. Normal disc height and morphology. Facet spurring. Normal central canal and intervertebral neuroforamina. Normal visualized soft tissue structures. CT/Spine Cervical without Contras IMPRESSION: Degenerative and postoperative changes. No fracture seen. Electronically Signed: Wyatt De La Rosa MD at 19:42 EST ,
--- NOTE | 2023-04-11 18:06 | CT_ITS ---
STUDY: CT BRAIN WITHOUT CONTRAST REASON FOR EXAM: Female, 82 years old. Head injury RADIATION DOSAGE (If Supplied By Facility): CTDIvol = ( 44.99 ) mGy, DLP = ( 812.98 ) mGycm TECHNIQUE: Transaxial CT imaging of the brain was performed without administration of intravenous contrast material. Individualized dose optimization techniques were used for this CT. COMPARISON: No relevant priors. FINDINGS: There is right parietal soft tissue swelling. Normal calvarium. There is temporomandibular arthrosis. There is moderate cerebral atrophy with widening of the extra-axial spaces and ventricular dilatation. There are areas of decreased attenuation within the white matter tracts of the supratentorial brain, consistent with microvascular disease changes. Normal basal ganglia and thalami. Normal brainstem. There is mild cerebellar atrophy. There is stable increased density along the falx consistent with calcification. There is no intracranial hemorrhage. There are no findings of an acute ischemic infarction. Normal visualized paranasal sinuses. CT/Brain/Head without Contrast IMPRESSION: Chronic involutional changes of the brain. Electronically Signed: Wyatt De La Rosa MD at 19:36 EST ,
--- NOTE | 2023-04-11 18:14 | EX.ED.DYSGE1 ---
HPI History of Present Illness Chief Complaint: Fall Narrative Narrative: Patient is a 82-year-old female with history of epilepsy, diabetes, dementia, who presents to the emergency department after a syncopal episode while using the restroom. Patient states she was done having a bowel meant when she went to lean forward to wipe herself, she then states she had a syncopal episode striking the right side of her head on the tub. Her heard the commotion, and called the ambulance. Patient complains of a headache however no other issues. Patient states she is slight neck soreness. She states she did have a syncopal episode 1 week ago however she is unsure about the time or how it happened. [facility] Medical History Abnormal stress test Acute postoperative pain of right knee Acute systolic congestive heart failure Ambulates with cane Anxiety Aortic stenosis Aortic valve stenosis with insufficiency Arthritis Atherosclerotic heart disease of [place] coronary artery without angina pectoris Atrial fibrillation Back pain Cardiology follow-up encounter Cardiomyopathy Cellulitis of chest wall Chronic constipation Chronic cough Congestive heart failure (CHF) Debility Debility Dementia Depression Depression Diabetes Diabetes mellitus Diabetic neuropathy Diabetic polyneuropathy Dietary restriction DM2 (diabetes mellitus, type 2) Epilepsy Essential hypertension Former smoker H/O cardiac murmur History of atrial fibrillation History of echocardiogram History of left heart catheterization (LHC) (~06/02/22) History of pain when walking History of steroid therapy History of stress test Hx of back injury Hx of vaginal delivery Hypertension Hypertension Hypertension Inability to ambulate due to knee Injury of back Injury of head and neck Mitral regurgitation Nephrolithiasis Neuropathy Neuropathy, diabetic Other halfway (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 Parkinson's disease Paroxysmal atrial fibrillation Pericardial effusion Pleural effusion due to CHF (congestive heart failure) Preoperative cardiovascular examination Rotator cuff tear arthropathy of left shoulder Tremor Vitamin D deficiency Wears glasses Home Medications duloxetine 30 mg capsule,delayed release 30 mg PO QHS NEUROPATHY 09/22/20 [History Last Taken 08/28/22] nitroglycerin 0.4 mg sublingual tablet 0.4 mg sublingual Q5M PRN Cardiac/Chest Pain #0 tabs 06/11/22 [Rx Last Taken Unknown] cyanocobalamin (vitamin B-12) 1,000 mcg tablet (Vitamin B-12) 1,000 mcg PO DAILY supplement 08/10/22 [History Last Taken 08/29/22] famotidine 40 mg tablet 20 mg PO BID stomach 08/10/22 [History Last Taken 08/29/22] diltiazem HCl 120 mg capsule,extended release 24 hr (Cartia XT) 120 mg PO BID heart 08/29/22 [History Last Taken 08/29/22] acetaminophen 500 mg tablet 1,000 mg (2 x 500 mg) PO Q6H PRN PRN Pain Score 1-10 #0 tabs 09/17/22 [Rx Last Taken Unknown] oxycodone 5 mg tablet 5 mg PO Q4H PRN PRN Pain Score 6-10 7 days #28 tabs 11/24/22 [Rx Last Taken Unknown] cholecalciferol (vitamin D3) 25 mcg (1,000 unit) tablet (Vitamin D3) 50 mcg PO DAILY Supplement 12/28/22 [History Last Taken Unknown] mirabegron 25 mg tablet,extended release 24 hr (Myrbetriq) 25 mg PO DAILY 12/28/22 [History Last Taken Unknown] apixaban 2.5 mg tablet (Eliquis) 2.5 mg PO BID #180 tabs 01/04/23 [Rx Last Taken Unknown] furosemide 40 mg tablet 40 mg PO DAILY Diuretic 01/04/23 [History Last Taken Unknown] potassium chloride 20 mEq tablet,extended release(part/cryst) (Klor-Con M) 20 meq PO DAILY Supplement 01/04/23 [History Last Taken Unknown] donepezil 10 mg tablet 10 mg PO QHS #30 tabs 01/16/23 [Rx Last Taken Unknown] lamotrigine 100 mg tablet 100 mg PO BID Seizures #60 tabs 01/16/23 [Rx Last Taken Unknown] acetaminophen 650 mg tablet,extended release (8 Hour Pain Reliever) 650 mg PO BID PRN pain 04/08/23 [History Last Taken Unknown] aspirin 81 mg tablet,delayed release (Adult Low Dose Aspirin) 81 mg PO DAILY 04/08/23 [History Last Taken Unknown] gabapentin 100 mg capsule 100 mg PO BID 14 days #28 caps 04/08/23 [Rx Last Taken Unknown] losartan 25 mg tablet 25 mg PO QHS 04/08/23 [History Last Taken Unknown] metoprolol succinate 25 mg tablet,extended release 24 hr 25 mg PO DAILY 04/08/23 [History Last Taken Unknown] spironolactone 25 mg tablet 25 mg PO QHS 04/08/23 [History Last Taken Unknown] Allergy/AdvReac Type Severity Reaction Status Date / Time levetiracetam Allergy Other Verified 04/11/23 17:49 nickel Allergy Other Verified 04/11/23 17:49 sulfamethoxazole Allergy Itching Verified 04/11/23 17:49 [From Bactrim] trimethoprim [From Bactrim] Allergy Itching Verified 04/11/23 17:49 codeine AdvReac Nausea Verified 04/11/23 17:49 milk AdvReac Nausea/Vom/ Verified 04/11/23 17:49 Diarrhea Family History Father No problems noted. Mother No problems noted. Surgical History Amputated toe of right foot Deviated septum History of appendectomy History of cholecystectomy History of hysterectomy History of left hip hemiarthroplasty History of neck surgery History of tonsillectomy History of total right knee replacement (TKR) Hx of cystoscopy Hx of fusion of cervical spine S/P total knee arthroplasty Social History household members: spouse Smoking Status: Former smoker alcohol intake: never substance use type: does not use caffeine: No what type of physical activity do you participate in: other details: physical therapy seatbelt use: always do you feel safe at home: Yes ROS ROS ED ROS Narrative Constitutional: Negative for fever, chills, weight loss, weakness Eyes: Negative for vision loss, vision change, double vision ENT: Negative for any sore throat, ear pain, congestion Cardiovascular: Negative for any chest pain, tightness, palpitations Respiratory: Negative for any cough, sputum production, hemoptysis, dyspnea, dyspnea on exertion, orthopnea Gastrointestinal: Negative for any abdominal pain, nausea, vomiting, diarrhea, constipation, blood in stool, blood in vomit : Negative for any urinary frequency, dysuria, retention, blood in urine Muscle skeletal: Negative for any myalgias, arthralgias, back pain. Positive for neck pain Neurological: Negative for any syncope, numbness or tingling, dizziness. Positive for headache, syncopal episode Skin: Negative for any rashes, lumps, itching, abrasions, lacerations Psychiatric: Negative for any depression, anxiety, stress, suicidal ideation, homicidal ideation Hematologic: Negative for any easy bruising, excessive bruising, easy bleeding Allergies: Negative for any eczema, hives, rash EXAM Physical Exam Narrative Exam Narrative: Vital signs reviewed. Patient alert orient x4. HEET: Head normocephalic atraumatic, TMs clear bilaterally. Posterior pharynx is clear, moist mucous membranes. Nares clear bilaterally. Pupils equal round reactive to light. A for any hemotympanum, negative right septal hematoma. Neck: Supple with no lymphadenopathy or tenderness. No signs of meningismus. Cardiac: Irregular rhythm, systolic murmur, no gallops or rubs, equal peripheral pulses bilaterally. Respiratory: Lungs clear to auscultation bilaterally. No chest tenderness. Abdomen: Soft, nontender, nondistended. No abdominal bruit or pulsatile masses. No hepatosplenomegaly Extremities: No peripheral edema, no signs of gross trauma or deformity. Active full range of motion of all extremities. Patient's right foot is wrapped up, she does see podiatry for this, she saw podiatry today. She has been having wound issues since October. Neuro: Cranial nerves II through XII intact, no focal neurological deficits. Skin: Clean dry and intact with no rash, purpura, petechiae, vesicles or pustules. Backs/flank: No CVA tenderness, no midline spinal tenderness, no deformity. Psych: Normal mood and affect. No SI, HI or acute psychosis. Rectal: Rectal exam was completed with nurse resident medical officer Roverto, there was a chronic hemorrhoid, no josie blood, no dark tarry stool. No mass felt, there was light-colored stool on my finger. Const Vital Signs: 04/11/23 17:49 04/11/23 18:17 04/11/23 18:48 Temperature 97.7 F L Temperature Source Temporal Pulse Rate 55 L Pulse Rate [Lying] 70 Pulse Rate [Sitting (for 1 minute prior to obtaining)] 68 Pulse Rate [Standing (for 1 minute prior to obtaining)] 82 Respiratory Rate 16 Respiratory Effort Normal Non-Labored Blood Pressure 100/45 L Blood Pressure [Lying] 106/47 L Blood Pressure [Sitting (for 1 minute prior to obtaining)] 110/44 L Blood Pressure [Standing (for 1 minute prior to obtaining)] 102/42 L Blood Pressure Mean 63 Blood Pressure Mean [Lying] 66 Blood Pressure Mean [Sitting (for 1 minute prior to obtaining)] 66 Blood Pressure Mean [Standing (for 1 minute prior to obtaining)] 62 Pulse Ox 98 Oxygen Delivery Method Room Air 04/11/23 19:17 Temperature Temperature Source Pulse Rate 70 Pulse Rate [Lying] Pulse Rate [Sitting (for 1 minute prior to obtaining)] Pulse Rate [Standing (for 1 minute prior to obtaining)] Respiratory Rate 25 H Respiratory Effort Blood Pressure 116/73 Blood Pressure [Lying] Blood Pressure [Sitting (for 1 minute prior to obtaining)] Blood Pressure [Standing (for 1 minute prior to obtaining)] Blood Pressure Mean 87 Blood Pressure Mean [Lying] Blood Pressure Mean [Sitting (for 1 minute prior to obtaining)] Blood Pressure Mean [Standing (for 1 minute prior to obtaining)] Pulse Ox Oxygen Delivery Method Positive well nourished and well developed General Appearance ED: well developed MDM MDM Lab Data Labs: Laboratory Results - last 24 hr 04/11/23 04/11/23 18:09 19:04 WBC 7.6 RBC 2.97 L Hgb 9.5 L Hct 30.5 L MCV 102.7 H MCH 32.0 MCHC 31.1 L RDW Std Deviation 52.6 H RDW Coeff of Robert 14.0 Plt Count 267 MPV 9.7 Immature Gran % (Auto) 0.400 Neut % (Auto) 64.7 Lymph % (Auto) 22.8 [place] % (Auto) 7.3 Eos % (Auto) 4.1 Baso % (Auto) 0.7 Absolute Neuts (auto) 4.9 Absolute Lymphs (auto) 1.73 Nucleated RBC % 0 Sodium 137 Potassium 4.4 Chloride 103 Carbon Dioxide 29.0 Anion Gap 5 BUN 36 H Creatinine 0.83 Estim Creat Clear Calc 47.23 Est GFR (MDRD) Af Amer 84 Est GFR (MDRD) Non-Af 70 BUN/Creatinine Ratio 43.4 H Glucose 120 H Calcium 9.5 Troponin I High Sens 9 Urine Color Yellow Urine Clarity Clear Urine pH 6.0 Ur Specific [place] 1.020 Urine Protein Negative Urine Glucose (UA) Normal Urine Ketones Negative Urine Occult Blood 25 H Urine Nitrite Negative Urine Bilirubin Negative Urine Urobilinogen Normal Ur Leukocyte Esterase 100 H Urine RBC 0 SEEN Urine WBC 0-5 SEEN Ur Squamous Epith Cells 0 SEEN Urine Bacteria 0 SEEN Urine Mucus 0 SEEN Radiography Diagnostic Testing: Clinical Impression(s) from Imaging Studies Brain CT 04/11/23 18:06 IMPRESSION: Chronic involutional changes of the brain. Electronically Signed: Wyatt De La Rosa MD at 19:36 EST , Cervical Spine CT 04/11/23 18:06 IMPRESSION: Degenerative and postoperative changes. No fracture seen. Electronically Signed: Wyatt De La Rosa MD at 19:42 EST , Chest X-Ray 04/11/23 18:25 IMPRESSION: Degenerative changes, as described above. No demonstrated acute cardiopulmonary process. Electronically Signed: Wyatt De La Rosa MD at 19:16 EST , EKG EKG shows atrial fibrillation: Attestation: I personally reviewed and interpreted this EKG as follows: Comments: EKG shows atrial fibrillation, rate of 67 bpm, QRS duration 148 ms, no acute ST elevation, no acute infarct and a Treatment and Re-Evaluation :: Patient appears generally well, patient appears nontoxic, vital signs are stable. Patient presents to the emergency department after syncopal episode while wiping herself after having a bowel movement. Differential diagnosis includes orthostatic hypotension, vasovagal response, skull fracture, intracranial bleeding. She will receive basic laboratory values, 1 L of normal saline secondary to her blood pressure of 100 systolic. Basic laboratory values while the troponin. Patient's laboratory values show slight anemia with a hemoglobin 9.5. Patient's baseline from October to November was 10-11. On March 25, 2023, the patient's hemoglobin is 13.1. Patient's chemistries show a normal creatinine, negative troponin. No evidence of ACS or WI. EKG was unremarkable. Chest x-ray showed degenerative changes, no acute cardiopulmonary process, it was interpreted the ER physician. Patient's CT scan of the brain shows no acute process only chronic changes. CT scan of the cervical spine showed degenerative changes. No fracture seen. I did perform a rectal exam, this was negative for any acute bleeding. Urinalysis was negative for any infection. Patient will be ambulated with a walker to ensure stability. Patient was able to walk with a walker with a steady gait. At this time, I do believe the patient stable for discharge. All questions were answered, I spoke with the patient, the patient's , there is no further questions, stable for discharge Discharge Plan Triage Chief Complaint: Fall ED Midlevel Provider: Beka Flower ED Provider: Mandeep Dasilva Dx/Rx/DC Orders Clinical Impression: Fall, Dementia, Vasovagal syncope, CHI (closed head injury), Anemia in chronic illness Instructions: Anemia, Causes of Syncope, Concussion Dc Prescriptions: No Action duloxetine 30 mg capsule,delayed release(DR/EC) 30 mg PO QHS famotidine 40 mg tablet 20 mg PO BID cyanocobalamin (vitamin B-12) [Vitamin B-12] 1,000 mcg tablet 1,000 mcg PO DAILY furosemide 40 mg tablet 40 mg PO DAILY Rx Instructions: AM potassium chloride [Klor-Con M20] 20 mEq tablet,ER particles/crystals 20 meq PO DAILY Eliquis 2.5 mg tablet 2.5 mg PO BID Qty: 180 3RF Myrbetriq 25 mg tablet extended release 24 hr 25 mg PO DAILY lamotrigine 100 mg tablet 100 mg PO BID Qty: 60 5RF donepezil 10 mg tablet 10 mg PO QHS Qty: 30 5RF Rx Instructions: Begin after completing one month of treatment of donepezil 5mg nightly nitroglycerin 0.4 mg Tablet, Sublingual 0.4 mg sublingual Q5M PRN (Reason: Cardiac/Chest Pain) Qty: 0 0RF diltiazem HCl [Cartia XT] 120 mg capsule,extended release 24hr 120 mg PO BID acetaminophen 500 mg Tablet 1,000 mg PO Q6H PRN PRN (Reason: Pain Score 1-10) Qty: 0 0RF cholecalciferol (vitamin D3) [Vitamin D3] 25 mcg (1,000 unit) tablet 50 mcg PO DAILY oxycodone 5 mg Tablet 5 mg PO Q4H PRN PRN (Reason: Pain Score 6-10) 7 Days Qty: 28 0RF metoprolol succinate 25 mg tablet extended release 24 hr 25 mg PO DAILY Patient Comments: take 1 tablet by mouth once daily spironolactone 25 mg tablet 25 mg PO QHS losartan 25 mg tablet 25 mg PO QHS Patient Comments: take 1 tablet by mouth once daily aspirin [Adult Low Dose Aspirin] 81 mg tablet,delayed release (DR/EC) 81 mg PO DAILY acetaminophen [8 Hour Pain Reliever] 650 mg tablet extended release 650 mg PO BID PRN (Reason: pain) gabapentin 100 mg capsule 100 mg PO BID 14 Days Qty: 28 0RF Primary Care Provider: Nahomy Bettencourt Referrals: Nahomy Bettencourt MD [Primary Care Provider] - Activity Restrictions/Additional Instructions: Please make sure that you always have your walker. You are slightly anemic, however you are close to your baseline. Make sure you maintain hydration. Disposition Disposition: Home, Self Care
[2023-04-11] MEDS: 0.9% Normal Saline (1000mL) 1,000 ML 1000 ML IV (18:17)
[2023-04-11 18:19] LABS: Absolute Lymphocyte Count 1.73 X10^3/uL (0.83-4.51); Absolute Neutrophil Count 4.9 X10^3/uL (2.0-7.7); Basophil# 0.05 X10^3/uL; Basophil% 0.7 % (0-1); Eosinophil# 0.31 X10^3/uL; Eosinophils% 4.1 % (0-5); Hematocrit 30.5 % (37-47); Hemoglobin 9.5 g/dL (12.0-15.0); Lymphocyte # 1.73 X10^3/ul (0.83-4.51); Lymphocyte % 22.8 % (19-41); Mean Corp Hgb Conc 31.1 g/dL (32-36); Mean Corpuscular Volume 102.7 fL (81-99); Mean Platelet Vol. 9.7 fl (6.2-12.0); Monocyte# 0.55 X10^3/uL; Monocyte% 7.3 % (0-10); NRBC Flagged by Analyzer 0 % (0-5); Neutrophil # 4.91 X10^3/uL (2.7-7.7); Neutrophil % 64.7 % (47-70); Platelet Count 267 K/mm3 (150-450); RBC Distribution Width SD 52.6 fl (35.1-43.9); Red Blood Count 2.97 M/mm3 (4.2-5.4); White Blood Count 7.6 K/mm3 (4.4-11.0)
--- NOTE | 2023-04-11 18:25 | RAD_ITS ---
STUDY: X-RAY CHEST REASON FOR EXAM: Female, 82 years old. Cough TECHNIQUE: Single AP portable view of the chest. COMPARISON: March 25, 2023 FINDINGS: There are monitoring devices. There is stable left lower lung scarring or atelectasis. There is no focal infiltrate. There is no demonstrated pleural abnormality. There is moderate cardiac enlargement. Normal mediastinum and saad. Normal visualized pulmonary arteries. Normal visualized aortic arch and descending thoracic aorta. There are diffuse degenerative changes of the visualized thoracic spine. There is degenerative osteoarthritis of the bilateral shoulders. There is no demonstrated abnormality of the visualized soft tissue structures of the upper abdomen. RAD/Chest 1 View (Portable) IMPRESSION: Degenerative changes, as described above. No demonstrated acute cardiopulmonary process. Electronically Signed: Wyatt De La Rosa MD at 19:16 EST ,
[2023-04-11 18:45] LABS: Anion Gap 5 (5-15); BUN 36 mg/dL (7-18); BUN/Creat Ratio 43.4 RATIO (10-20); Calcium,Total 9.5 mg/dL (8.5-10.1); Chloride 103 mmol/L (98-107); Creatinine, Serum 0.83 mg/dL (0.55-1.02); EST Glomerular Filtration Rate 70 mL/min (>60); Est Glom Filt Rate - Afr Amer 84 mL/min (>60); Estimated Creatinine Clearance 47.23 ml/min; Glucose 120 mg/dL (74-106); Potassium 4.4 mmol/L (3.5-5.1); Sodium Level 137 mmol/L (136-145); Troponin-I HS 9 pg/mL (3.0-54.0)
[2023-04-11 18:48] VITALS: BP 102/42; BP 106/47; BP 110/44; PULSE 68; PULSE 70; PULSE 82
[2023-04-11 19:08] LABS: Bacteria 0 SEEN /hpf (None Seen); Mucous, Urine 0 SEEN /hpf (<or=2+); Red Blood Cells-Urine 0 SEEN /hpf (0-5); Squamous Epithelial Cells - UA 0 SEEN /hpf (5-10)
[2023-04-11 19:09] LABS: Color, Urine Yellow (Yellow); Glucose, Dipstick Normal (Normal); Ketone-Dipstick Negative (Negative); Leukocyte Esterase-Dipstick 100 /ul (Negative); Nitrite-Dipstick Negative (Negative); Occult Blood-Urine 25 /ul (Negative); Protein-Dipstick Negative (Negative); Urine Bilirubin Dipstick Negative (Negative); Urine Clarity Clear (Clear); Urine Urobilinogen Normal (Normal)
[2023-04-11 19:15] LABS: White Blood Cells 0-5 SEEN /hpf (0-5)
[2023-04-11 19:17] VITALS: BP 116/73; PULSE 70; RESP 25
[2023-04-11 20:55] VITALS: BP 123/56; PULSE 63; RESP 15; O2SAT 97
== END 2023-04-11 21:11 | disposition home or self-care (01) ==
PROVIDERS: Nurse Practitioner; Emergency Provider Emergency Medicine; PCP Family Medicine; Visit Provider Emergency Medicine
DX: R55 Syncope and collapse (principal); F02.80 Dementia in other diseases classified elsewhere, unspecified severity, without behavioral disturbance, psychotic disturbance, mood disturbance, and anxiety; I11.0 Hypertensive heart disease with heart failure; I50.9 Heart failure, unspecified; I42.9 Cardiomyopathy, unspecified; E11.42 Type 2 diabetes mellitus with diabetic polyneuropathy; I48.0 Paroxysmal atrial fibrillation; G40.909 Epilepsy, unspecified, not intractable, without status epilepticus; S09.90XA Unspecified injury of head, initial encounter; G20.A1 Parkinson's disease without dyskinesia, without mention of fluctuations; W18.12XA Fall from or off toilet with subsequent striking against object, initial encounter; I25.10 Atherosclerotic heart disease of native coronary artery without angina pectoris; D63.8 Anemia in other chronic diseases classified elsewhere; Z79.82 Long term (current) use of aspirin; Z79.01 Long term (current) use of anticoagulants; Z79.899 Other long term (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; Z87.891 Personal history of nicotine dependence
CPT/HCPCS: 70450; 71045; 72125; 80048; 81001; 82274; 84484; 85025; 93005; 96360; 99285; J7030; A4216

== ENCOUNTER → 2023-05-23 | Outpatient (CLI) | payer MEDICARE, SELFPAY ==
--- NOTE | 2023-05-23 13:49 | ART_ITS ---
Reason For Study: LLE Non Healing Ulcers Procedure A bilateral lower extremity continuous wave Doppler with analog waveform analysis and ankle brachial indexes. Left Segmental Pressures Left brachial= 103mmHg. Left posterior tibial artery = 154mmHg. Left dorsalis pedis artery = 132mmHg. Left digit = 88 mmHg. The left posterior tibial artery waveforms are triphasic. The left dorsalis pedis waveforms are triphasic. Right Segmental Pressures Right brachial= 111mmHg. Right posterior tibial artery = 139mmHg. Right dorsalis pedis artery = 130mmHg. Right digit = 91 mmHg. The right posterior tibial artery waveforms are triphasic. The right dorsalis pedis waveforms are triphasic. Indices The right ankle brachial index by the posterior tibial artery is 1.25. The right ankle brachial index by the dorsalis pedis is 1.17. The right digital-brachial index is 0.82. The left ankle brachial index by the posterior tibial artery is 1.39. The left ankle brachial index by the dorsalis pedis is 1.19. The left digital-brachial index is 0.79. VL/Ankle Brachial Index Interpretation Summary Right VISHNU 1.25, normal. TBI and Doppler/PVR waveforms of the right ankle normal at rest. Left VISHNU 1.39, normal. TBI and Doppler/PVR waveforms of the left ankle normal a t rest. Ordering Physician: Nahomy Bettencourt Referring Physician: NAHOMY BETTENCOURT MD Performed By: Ton Walsh RVT
[2023-05-23 13:52] LABS: Hemoglobin 12.7 g/dL (12.0-15.0); Mean Corp Hgb Conc 31.8 g/dL (32-36); Mean Corpuscular Hgb 32.7 pg (27.0-32.0); Mean Corpuscular Volume 103.1 fL (81-99); Mean Platelet Vol. 9.2 fl (6.2-12.0); Platelet Count 323 K/mm3 (150-450); RBC Distribution Width CV 13.2 % (11.6-14.6); RBC Distribution Width SD 50.1 fl (35.1-43.9); Red Blood Count 3.88 M/mm3 (4.2-5.4); White Blood Count 8.5 K/mm3 (4.4-11.0)
[2023-05-26 19:07] LABS: Lamotrigine (Lamictal) Level 6.8 ug/mL (2.0-20.0)
== END | disposition home or self-care (01) ==
LOC: CVS 13:34
PROVIDERS: Psychiatry & Neurology Neurology; PCP Family Medicine; Referring Provider Family Medicine; Visit Provider Family Medicine
DX: E11.40 Type 2 diabetes mellitus with diabetic neuropathy, unspecified (principal); F02.A0 Dementia in other diseases classified elsewhere, mild, without behavioral disturbance, psychotic disturbance, mood disturbance, and anxiety; G30.1 Alzheimer's disease with late onset; I73.9 Peripheral vascular disease, unspecified; G40.909 Epilepsy, unspecified, not intractable, without status epilepticus
CPT/HCPCS: 36415; 82140; 82542; 85027; 93922

== ENCOUNTER 2023-06-23 10:47 | Inpatient (IN) | payer MEDICARE, SELFPAY ==
[2023-06-23 11:04] VITALS: BMI 26.0
--- NOTE | 2023-06-23 11:33 | WOUNDNOTE ---
wound photo: left 2nd toe
--- NOTE | 2023-06-23 11:35 | WOUNDNOTE ---
wound photo: right foot
--- NOTE | 2023-06-23 12:11 | MRI_ITS ---
STUDY: MRI LEFT FOOT REASON FOR EXAM: Female, 82 years old. Possible osteo, wound left 2nd toe. TECHNIQUE: Standardized fat and water weighted pulse sequences were obtained in all 3 orthogonal planes. COMPARISON: None. FINDINGS: There is skin ulceration along the dorsum of the second toe. There is mild increased STIR marrow signal in the head of the second proximal phalanx (axial STIR series 7 image 27; sagittal STIR series 8 images 13-14), with preservation of the normal T1 marrow signal, suggestive of mild reactive marrow edema as opposed to osteomyelitis. Normal bone marrow of the remainder of the phalanges, metatarsals, and visualized distal tarsal row, without fracture, periostitis, erosions or reactive bone edema. There is moderate degenerative arthrosis of the first MTP joint, with a hallux valgus deformity. Normal sesamoids without sesamoiditis, fracture or avascular necrosis. There are no significant joint effusions. There are no extraarticular fluid collections. Normal visualized Chopart and Lisfranc joints and normal Lisfranc ligament. Normal intermetatarsal spaces without intermetatarsal ([place]) neuroma or bursitis. Normal visualized extensor digitorum longus, extensor hallucis longus, flexor digitorum brevis and flexor hallucis longus tendons. Normal visualized plantar fascia without fasciitis, fibromatosis or tear. There is severe atrophy and fatty infiltration of the intrinsic muscles of the foot. There is mild subcutaneous soft tissue edema along the dorsum of the foot. MRI/Lower Ext/No Jt/w/o IMPRESSION: Skin ulceration along the dorsum of the second toe. Mild increased STIR marrow signal in the head of the second proximal phalanx, with preservation of the normal T1 marrow signal, suggestive of mild reactive marrow edema as opposed to osteomyelitis. Moderate degenerative arthrosis of the first MTP joint, with a hallux valgus deformity. Severe atrophy and fatty infiltration of the intrinsic muscles of the foot. Mild subcutaneous soft tissue edema along the dorsum of the foot. Electronically Signed: Mynor Mendez MD at 8:20 EST ,
--- NOTE | 2023-06-23 12:15 | RAD_ITS ---
STUDY: X-RAY - RIGHT FOOT CLINICAL: Female, 82 years old. POSSIBLE OSTEO TECHNIQUE: 3 views of the right foot. COMPARISON: Right foot radiographs dated 11/22/2014. FINDINGS: Intact talus, calcaneus, and tarsal bones. There is persistent moderate degenerative arthrosis of the visualized subtalar, talonavicular, calcaneocuboid, tarsal and tarsometatarsal articulations. Normal metatarsi. There is persistent severe degenerative arthrosis of the metatarsophalangeal joint of the hallux with a hallux valgus deformity. There is a more pronounced bunion deformity of the first MTP joint. Normal tibial and fibular sesamoid bones. Normal interphalangeal joint of the great toe. Normal phalanges of the great toe. Normal second through fifth metatarsophalangeal joints. Normal interphalangeal joints and phalanges of the lesser toes. RAD/Foot min 3 Views IMPRESSION: Persistent moderate degenerative arthrosis of the visualized subtalar, talonavicular, calcaneocuboid, tarsal and tarsometatarsal articulations. Persistent severe degenerative arthrosis of the metatarsophalangeal joint of the hallux with a hallux valgus deformity. More pronounced bunion deformity of the first MTP joint. Electronically Signed: Mynor Mendez MD at 14:19 EST ,
--- NOTE | 2023-06-23 12:24 | PCM.CONS.GEN ---
Assessment & Plan Assessment/Plan (1) Toe osteomyelitis, left: (2) Chronic systolic congestive heart failure: (3) Atrial fibrillation: (4) Coronary artery disease: PLAN: Plan Patient is an 82-year-old female who presented [facility] on 06/23/2023 as a direct admission from the manager income [employer] office for concern for left second toe osteomyelitis. Medicine consulted for medical management. 1. Suspected left second toe osteomyelitis ? Follows with Dr. Hernandes. Podiatry primary patient. Hemodynamically stable, afebrile, WBC count normal on admit. CRP 5.9, ESR normal. Left foot x-ray shows moderate degenerative arthrosis but no evidence of osteomyelitis. MRI left foot pending. Cardiology consulted as noted below for assistance with preoperative evaluation. Holding home medications including Eliquis as noted below. 2. HFrEF, aortic stenosis, history of nonobstructive CAD Follows with cardiology, last office visit on 05/23/2023. Please see this office note for complete details. In short, most recent TTE in 10/2022 showed EF 25%, severe global LV dysfunction, mild concentric LV hypertrophy, mild to moderate aortic stenosis. Notably had left heart cath done in 05/2022 that showed multivessel nonobstructive CAD. Had TTE done in 05/2021 that showed EF 35%, otherwise similar findings to more recent echo. ? Patient hemodynamically stable, on room air on admission. Cardiology consulted for assistance with preoperative assessment. Okay to continue home aspirin, otherwise holding all home medications. 3. Paroxysmal atrial fibrillation, recent history of LBBB ? Follows with cardiology as noted above. Home medications of Eliquis 2.5 mg twice daily, Lopressor 25 mg daily, diltiazem 120 mg at night. EKG ordered. Cardiac monitoring ordered. Heart rate around 60 on admit. Patient notably also on donepezil which can cause bradycardia. Will hold patient's home medications for now, cardiology consulted as above. 4. Hypertension ? Holding home Lasix, diltiazem, Lopressor, losartan, spironolactone now. Appreciate cardiology recommendations. 5. Seizure disorder ? Continue home lamotrigine. 6. GERD ? Continue home PPI. 7. Chronic neuropathy ? Continue home duloxetine. DVT prophylaxis: SCDs CODE STATUS: Full code, unverified Expected disposition: TBD Total clinical time spent by myself addressing the patient's medical issues, reviewing all the data, and collaborating with patient's care team: 35 minutes. 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 Patient seen at bedside on the floor. Patient was sitting up comfortably in bed, conversing normally, no acute distress. She denied any fevers or chills. Was eating her lunch when I arrived to the room, denied any decreased appetite. Patient states she has been dealing with the left second toe ulceration for about 3 to 4 weeks. She has a history of right second toe amputation a few years ago, had a very similar presentation at that time. Patient has fairly significant neuropathy in her feet, has had minimal pain in the left second toe to this point. She otherwise denies any other acute pain or discomfort. She is aware that she may require an amputation and is very understanding of this. No other acute concerns at this time. [facility] Medical History (Updated 06/23/23 @ 15:[address] Gonzalez Neves, DO) Abnormal stress test Acute postoperative pain of right knee Acute systolic congestive heart failure Ambulates with cane Anxiety Aortic stenosis Aortic valve stenosis with insufficiency Arthritis Atherosclerotic heart disease of [place] coronary artery without angina pectoris Atrial fibrillation Back pain Cardiology follow-up encounter Cardiomyopathy Cellulitis of chest wall Chronic constipation Chronic cough Congestive heart failure (CHF) Debility Debility Dementia Depression Depression Diabetes Diabetes mellitus Diabetic neuropathy Diabetic polyneuropathy Dietary restriction DM2 (diabetes mellitus, type 2) Epilepsy Essential hypertension Former smoker H/O cardiac murmur History of atrial fibrillation History of echocardiogram History of left heart catheterization (LHC) (~06/02/22) History of pain when walking History of steroid therapy History of stress test Hx of back injury Hx of vaginal delivery Hypertension Hypertension Hypertension Inability to ambulate due to knee Injury of back Injury of head and neck Mitral regurgitation Nephrolithiasis Neuropathy Neuropathy, diabetic Other shelter (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 Parkinson's disease Paroxysmal atrial fibrillation Pericardial effusion Pleural effusion due to CHF (congestive heart failure) Preoperative cardiovascular examination Rotator cuff tear arthropathy of left shoulder Tremor Vitamin D deficiency Wears glasses Home Medications duloxetine 30 mg capsule,delayed release 30 mg PO QHS NEUROPATHY 09/22/20 [History Last Taken 06/22/23] nitroglycerin 0.4 mg sublingual tablet 0.4 mg sublingual Q5M PRN Cardiac/Chest Pain #0 tabs 06/11/22 [Rx Last Taken Unknown] cyanocobalamin (vitamin B-12) 1,000 mcg tablet (Vitamin B-12) 1,000 mcg PO DAILY supplement 08/10/22 [History Last Taken 06/23/23 09:00] famotidine 40 mg tablet 20 mg PO BID stomach 08/10/22 [History Last Taken 06/23/23 09:00] oxycodone 5 mg tablet 5 mg PO Q4H PRN PRN Pain Score 6-10 7 days #28 tabs 11/24/22 [Rx Last Taken Unknown] cholecalciferol (vitamin D3) 25 mcg (1,000 unit) tablet (Vitamin D3) 50 mcg PO DAILY Supplement 12/28/22 [History Last Taken 06/23/23 09:00] apixaban 2.5 mg tablet (Eliquis) 2.5 mg PO BID #180 tabs 01/04/23 [Rx Last Taken 06/23/23 09:00] furosemide 40 mg tablet 40 mg PO DAILY Diuretic 01/04/23 [History Last Taken 06/23/23 09:00] potassium chloride 20 mEq tablet,extended release(part/cryst) (Klor-Con M) 20 meq PO DAILY Supplement 01/04/23 [History Last Taken 06/23/23 09:00] aspirin 81 mg tablet,delayed release (Adult Low Dose Aspirin) 81 mg PO DAILY 04/08/23 [History Last Taken 06/23/23 09:00] losartan 25 mg tablet 25 mg PO QHS 04/08/23 [History Last Taken 06/22/23] spironolactone 25 mg tablet 25 mg PO QHS 04/08/23 [History Last Taken 06/22/23] donepezil 10 mg tablet 10 mg PO QHS #90 tabs 05/02/23 [Rx Last Taken 06/22/23] lamotrigine 100 mg tablet 100 mg PO BID Seizures #180 tabs 05/02/23 [Rx Last Taken 06/23/23 09:00] diltiazem HCl 120 mg capsule,extended release 24 hr (Cartia XT) 120 mg PO DINNER heart 05/23/23 [History Last Taken 06/22/23] metoprolol tartrate 25 mg tablet 25 mg PO DAILY 06/23/23 [History Last Taken 06/23/23 09:00] Allergy/AdvReac Type Severity Reaction Status Date / Time levetiracetam Allergy Other Verified 06/23/23 11:37 nickel Allergy Rash Verified 06/23/23 11:37 sulfamethoxazole Allergy Itching Verified 05/23/23 13:02 [From Bactrim] trimethoprim [From Bactrim] Allergy Itching Verified 05/23/23 13:02 codeine AdvReac Nausea Verified 05/23/23 13:02 milk AdvReac Nausea/Vom/ Verified 06/23/23 11:37 Diarrhea Family History Father No problems noted. Mother No problems noted. Surgical History Amputated toe of right foot Deviated septum History of appendectomy History of cholecystectomy History of hysterectomy History of left hip hemiarthroplasty History of neck surgery History of tonsillectomy History of total right knee replacement (TKR) Hx of cystoscopy Hx of fusion of cervical spine S/P total knee arthroplasty Social History household members: spouse Smoking Status: Former smoker alcohol intake: never substance use type: does not use caffeine: No what type of physical activity do you participate in: other details: physical therapy seatbelt use: always do you feel safe at home: Yes ROS Constitutional Constitutional: Denies chills, fatigue, fever(s) or weakness Eyes Eyes: Denies change in vision Cardiovascular Cardiovascular: Denies chest pain, dyspnea on exertion, edema or rapid heart rate Respiratory/Chest Respiratory/Chest: Denies cough, shortness of breath at rest or wheezing Gastrointestinal Gastrointestinal: Denies abdominal pain Musculoskeletal Musculoskeletal: Denies arthralgias or back pain Neurologic Neurologic: Denies focal weakness, headache(s), numbness or tingling Physical Exam Const alert, oriented x3, no apparent distress and average body habitus Constitutional Narrative: Pleasant elderly female, sitting up comfortably in bed, conversing normally, no acute distress. General Appearance: cooperative and comfortable HEENT normocephalic, head/scalp atraumatic, hearing grossly normal bilaterally, nasal mucous membranes and turbinates normal and moist oral mucous membranes Eyes PERRL, EOMs intact bilaterally and conjunctivae normal Neck full ROM, no lymphadenopathy and supple Lymph Lymphatic: no lymphadenopathy noted Chest inspection of chest normal Resp normal respiratory effort, normal air movement, no use of accessory muscles and clear to auscultation bilaterally Cardio regular rate, regular rhythm, no murmurs and peripheral pulses 2+ throughout GI normal to inspection, nondistended, normoactive bowel sounds, soft to palpation, non-tender and non-distended Back/Spine normal ROM Extremity full ROM and no pedal edema Extremity Narrative: Left second toe ulceration noted. Also had ulceration under the pad of the base of the right toe that was covered with a gauze pad, appeared more chronic. Neuro no focal motor deficits and no sensory deficits noted Speech: speech normal Psych mental status grossly normal Lab / Micro Data 06/23/23 14:07 06/23/23 14:07 Charges/Coding Visit Charges Inpatient E&M: 08463 Subs Hosp L2
[2023-06-23 12:39] VITALS: BP 114/63; PULSE 60; RESP 18; TEMP 36.4; O2SAT 98
[2023-06-23 13:54] LABS: M R Staph aureus DNA By PCR Negative (Negative); Probe Check PASS; Specimen Processing Control PASS; Staph aureus DNA By PCR NEGATIVE (Negative)
--- NOTE | 2023-06-23 13:55 | RAD_ITS ---
STUDY: X-RAY - LEFT FOOT CLINICAL: Female, 82 years old. Possible osteo TECHNIQUE: 3 views of the left foot. COMPARISON: None. FINDINGS: There is a flatfoot deformity. Intact talus, calcaneus, and tarsal bones. There is moderate degenerative arthrosis of the visualized subtalar, talonavicular, calcaneocuboid, tarsal and tarsometatarsal articulations. Normal metatarsi. There is moderate to severe degenerative arthrosis of the metatarsophalangeal joint of the hallux with a hallux valgus deformity. Normal tibial and fibular sesamoid bones. Normal interphalangeal joint of the great toe. Normal phalanges of the great toe. Normal second through fifth metatarsophalangeal joints. Normal interphalangeal joints and phalanges of the lesser toes. RAD/Foot min 3 Views IMPRESSION: Flatfoot deformity. Moderate degenerative arthrosis of the visualized subtalar, talonavicular, calcaneocuboid, tarsal and tarsometatarsal articulations. Moderate to severe degenerative arthrosis of the metatarsophalangeal joint of the hallux with a hallux valgus deformity. Electronically Signed: Mynor Mendez MD at 14:21 EST ,
[2023-06-23 14:20] LABS: Absolute Lymphocyte Count 1.93 X10^3/uL (0.83-4.51); Absolute Neutrophil Count 5.9 X10^3/uL (2.0-7.7); Basophil# 0.07 X10^3/uL; Basophil% 0.8 % (0-1); Eosinophils% 3.4 % (0-5); Hematocrit 40.1 % (37-47); Lymphocyte # 1.93 X10^3/ul (0.83-4.51); Lymphocyte % 21.9 % (19-41); Mean Corp Hgb Conc 32.4 g/dL (32-36); Mean Corpuscular Hgb 33.1 pg (27.0-32.0); Mean Platelet Vol. 9.2 fl (6.2-12.0); Monocyte# 0.56 X10^3/uL; Monocyte% 6.3 % (0-10); NRBC Flagged by Analyzer 0 % (0-5); Neutrophil # 5.93 X10^3/uL (2.7-7.7); Neutrophil % 67.3 % (47-70); Platelet Count 296 K/mm3 (150-450); RBC Distribution Width CV 13.2 % (11.6-14.6); RBC Distribution Width SD 49.6 fl (35.1-43.9); Red Blood Count 3.93 M/mm3 (4.2-5.4); White Blood Count 8.8 K/mm3 (4.4-11.0)
[2023-06-23 14:29] LABS: Erythrocyte Sedimentation Rate 9 mm/hr (0-30)
[2023-06-23] MEDS: Vancomycin HCl 1,750 MG in 0.9% Normal Saline (500mL Bag) 500 ML 250 MG IV (14:39)
[2023-06-23 14:40] LABS: ALB/GLOB Ratio 1.1 RATIO (0.9-2.4); AST(SGOT) 15 U/L (15-37); Alanine Aminotransfer ALT/SGPT 19 U/L (13-56); Albumin, Serum 3.7 g/dL (3.2-5.0); Alkaline Phosphatase 146 U/L (45-117); Anion Gap 5 (5-15); BUN 24 mg/dL (7-18); BUN/Creat Ratio 24.4 RATIO (10-20); CRP 5.93 mg/L (0.0-3.0); Calcium,Total 9.8 mg/dL (8.5-10.1); Chloride 104 mmol/L (98-107); Creatinine, Serum 0.98 mg/dL (0.55-1.02); EST Glomerular Filtration Rate 57 mL/min (>60); Est Glom Filt Rate - Afr Amer 69 mL/min (>60); Estimated Creatinine Clearance 43.78 ml/min; Globulin 3.3 g/dL (2.2-4.2); Glucose 133 mg/dL (74-106); Potassium 4.4 mmol/L (3.5-5.1); Sodium Level 140 mmol/L (136-145)
[2023-06-23] MEDS: 0.9% Normal Saline (250mL Bag) 250 ML 15 ML IV ×2 (14:42→14:54)
[2023-06-23] MEDS: Piperacil/Tazobactam 3.375 GM in 0.9% Normal Saline (50mL MB+) 50 ML IV ×2 (14:53→21:52)
--- NOTE | 2023-06-23 14:57 | PCM.RX.CS ---
Consult Antibiotic Management Pharmacy has been consulted to manage selected antibiotic: Vancomycin Type of Intervention Type of Consult: New start Suspected Infection Suspected Infection: Osteomyelitis Prior Doses of Antibiotics Prior Doses of Antibiotics Received/Current Regimen: Vancomycin 1750 mg x 1, patient is also on piperacillin/tazobactam 3.375 grams Q8H Labs Labs: Sodium 140 mmol/L (136-145) 06/23/23 14:07 Potassium 4.4 mmol/L (3.5-5.1) 06/23/23 14:07 Chloride 104 mmol/L (98-107) 06/23/23 14:07 Carbon Dioxide 31.0 mmol/L (21.0-32.0) 06/23/23 14:07 Anion Gap 5 (5-15) 06/23/23 14:07 BUN 24 mg/dL (7-18) H 06/23/23 14:07 Creatinine 0.98 mg/dL (0.55-1.02) 06/23/23 14:07 Est GFR (MDRD) Af Amer 69 mL/min (>60) 06/23/23 14:07 Est GFR (MDRD) Non-Af 57 mL/min (>60) L 06/23/23 14:07 BUN/Creatinine Ratio 24.4 RATIO (10-20) H 06/23/23 14:07 Glucose 133 mg/dL (74-106) H 06/23/23 14:07 Dosing Weight Weight used for dosin.3 kg Estimated Creatinine Clearance Estimated Creatinine Clearance: ~40 Goal Trough Goal Trough: 15-20 mcg/mL Pharmacy Plan for Drug Dosing Pharmacy Plan for Drug Dosing: Vancomycin 1750 mg IV x 1, followed by 500 mg Q12H Pharmacy Service will continue to monitor and adjust dosing as required. Follow-Up Labs Follow-Up Labs: Trough: Vancomycin Date/Time Labs Ordered Labs to be done on [date and time ordered]: 06/25/23 @ 4560
[2023-06-23 17:00] VITALS: BP 107/61; PULSE 76; RESP 16; TEMP 36.4; O2SAT 9
[2023-06-23] MEDS: Juven (unflavored) Packet 1 PACKET PO (17:08)
--- NOTE | 2023-06-23 18:57 | HP.PCM_ITS ---
HPI - General General Date of Admission: 06/23/23 Date of Service: 06/23/23 Chief Complaint: Left foot ulcer and infection HPI Narrative MAGDY MIRAMONTES, is a 82 F who presents with worsening left 2nd toe ulceration, now down to bone, with cellulitis now extending to the midfoot. She also has chronic on and off ulceration to the right foot sub 1st MTPJ. She has many medical problems, diabetes with peripheral neuropathy. Due to infection she was sent to the hospital for admission for further workup and management. [facility] Medical History (Updated 06/24/23 @ 00:[address] Blu Hernandes, DPM) Abnormal stress test Acute postoperative pain of right knee Acute systolic congestive heart failure Ambulates with cane Anxiety Aortic stenosis Aortic valve stenosis with insufficiency Arthritis Atherosclerotic heart disease of [place] coronary artery without angina pectoris Atrial fibrillation Back pain Cardiology follow-up encounter Cardiomyopathy Cellulitis of chest wall Chronic constipation Chronic cough Congestive heart failure (CHF) Debility Debility Dementia Depression Depression Diabetes Diabetes mellitus Diabetic neuropathy Diabetic polyneuropathy Dietary restriction DM2 (diabetes mellitus, type 2) Epilepsy Essential hypertension Former smoker H/O cardiac murmur History of atrial fibrillation History of echocardiogram History of left heart catheterization (LHC) (~06/02/22) History of pain when walking History of steroid therapy History of stress test Hx of back injury Hx of vaginal delivery Hypertension Hypertension Hypertension Inability to ambulate due to knee Injury of back Injury of head and neck Mitral regurgitation Nephrolithiasis Neuropathy Neuropathy, diabetic Other long filler cigar roller machine (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 Parkinson's disease Paroxysmal atrial fibrillation Pericardial effusion Pleural effusion due to CHF (congestive heart failure) Preoperative cardiovascular examination Rotator cuff tear arthropathy of left shoulder Tremor Vitamin D deficiency Wears glasses Home Medications duloxetine 30 mg capsule,delayed release 30 mg PO QHS NEUROPATHY 09/22/20 [History Last Taken 06/22/23] nitroglycerin 0.4 mg sublingual tablet 0.4 mg sublingual Q5M PRN Cardiac/Chest Pain #0 tabs 06/11/22 [Rx Last Taken Unknown] cyanocobalamin (vitamin B-12) 1,000 mcg tablet (Vitamin B-12) 1,000 mcg PO DAILY supplement 08/10/22 [History Last Taken 06/23/23 09:00] famotidine 40 mg tablet 20 mg PO BID stomach 08/10/22 [History Last Taken 06/23/23 09:00] oxycodone 5 mg tablet 5 mg PO Q4H PRN PRN Pain Score 6-10 7 days #28 tabs [Rx Last Taken Unknown] cholecalciferol (vitamin D3) 25 mcg (1,000 unit) tablet (Vitamin D3) 50 mcg PO DAILY Supplement 12/28/22 [History Last Taken 06/23/23 09:00] apixaban 2.5 mg tablet (Eliquis) 2.5 mg PO BID #180 tabs 01/04/23 [Rx Last Taken 06/23/23 09:00] furosemide 40 mg tablet 40 mg PO DAILY Diuretic 01/04/23 [History Last Taken 06/23/23 09:00] potassium chloride 20 mEq tablet,extended release(part/cryst) (Klor-Con M) 20 meq PO DAILY Supplement 01/04/23 [History Last Taken 06/23/23 09:00] aspirin 81 mg tablet,delayed release (Adult Low Dose Aspirin) 81 mg PO DAILY 04/08/23 [History Last Taken 06/23/23 09:00] losartan 25 mg tablet 25 mg PO QHS 04/08/23 [History Last Taken 06/22/23] spironolactone 25 mg tablet 25 mg PO QHS 04/08/23 [History Last Taken 06/22/23] donepezil 10 mg tablet 10 mg PO QHS #90 tabs 05/02/23 [Rx Last Taken 06/22/23] lamotrigine 100 mg tablet 100 mg PO BID Seizures #180 tabs 05/02/23 [Rx Last Taken 06/23/23 09:00] diltiazem HCl 120 mg capsule,extended release 24 hr (Cartia XT) 120 mg PO DINNER heart 05/23/23 [History Last Taken 06/22/23] metoprolol tartrate 25 mg tablet 25 mg PO DAILY 06/23/23 [History Last Taken 06/23/23 09:00] Allergy/AdvReac Type Severity Reaction Status Date / Time levetiracetam Allergy Other Verified 06/23/23 11:37 nickel Allergy Rash Verified 06/23/23 11:37 sulfamethoxazole Allergy Itching Verified 05/23/23 13:02 [From Bactrim] trimethoprim [From Bactrim] Allergy Itching Verified 05/23/23 13:02 codeine AdvReac Nausea Verified 05/23/23 13:02 milk AdvReac Nausea/Vom/ Verified 06/23/23 11:37 Diarrhea Family History Father No problems noted. Mother No problems noted. Surgical History Amputated toe of right foot Deviated septum History of appendectomy History of cholecystectomy History of hysterectomy History of left hip hemiarthroplasty History of neck surgery History of tonsillectomy History of total right knee replacement (TKR) Hx of cystoscopy Hx of fusion of cervical spine S/P total knee arthroplasty Social History household members: spouse Smoking Status: Former smoker alcohol intake: never substance use type: does not use caffeine: No what type of physical activity do you participate in: other details: physical therapy seatbelt use: always do you feel safe at home: Yes Vital Signs Vital Signs Vital Signs: 06/23/23 12:39 06/23/23 17:00 Temperature 97.5 F L 97.6 F L Temperature Source Oral Oral Pulse Rate 60 76 Respiratory Rate 18 16 Blood Pressure 114/63 107/61 Blood Pressure Mean 80 76 Blood Pressure Source Monitor Monitor Blood Pressure Position Semi-Fowlers Semi-Fowlers Blood Pressure Location Left Arm Right Arm Pulse Ox 98 9 Oxygen Delivery Method Room Air Room Air Weight Weight: 73.3 kg Body Mass Index (BMI) 26.0 Physical Exam Const alert, oriented x3 and no apparent distress Results Lab / Micro Data 06/23/23 14:07 06/23/23 14:07 Labs: Laboratory Results - last 24 hr 06/23/23 11:30: S.aureus Protein A PCR NEGATIVE, MRSA (PCR) Negative 06/23/23 14:07: WBC 8.8, RBC 3.93 L, Hgb 13.0, Hct 40.1, MCV 102.0 H, MCH 33.1 H , MCHC 32.4, RDW Std Deviation 49.6 H, RDW Coeff of Robert 13.2, Plt Count 296, MPV 9.2, Immature Gran % (Auto) 0.300, Neut % (Auto) 67.3, Lymph % (Auto) 21.9, [place] % (Auto) 6.3, Eos % (Auto) 3.4, Baso % (Auto) 0.8, Absolute Neuts (auto) 5.9, Absolute Lymphs (auto) 1.93, Nucleated RBC % 0, ESR 9, Sodium 140, Potassium 4 .4, Chloride 104, Carbon Dioxide 31.0, Anion Gap 5, BUN 24 H, Creatinine 0.98, Estim Creat Clear Calc 43.78, Est GFR (MDRD) Af Amer 69, Est GFR (MDRD) Non-Af 57 L, BUN/Creatinine Ratio 24.4 H, Glucose 133 H, Calcium 9.8, Total Bilirubin 0.20, AST 15, ALT 19, Alkaline Phosphatase 146 H, C-React Prot Ext Range 5.93 H, Total Protein 7.0, Albumin 3.7, Globulin 3.3, Albumin/Globulin Ratio 1.1 Imaging Radiology Impression Foot X-Ray 06/23/23 12:15 IMPRESSION: Persistent moderate degenerative arthrosis of the visualized subtalar, talonavicular, calcaneocuboid, tarsal and tarsometatarsal articulations. Persistent severe degenerative arthrosis of the metatarsophalangeal joint of the hallux with a hallux valgus deformity. More pronounced bunion deformity of the first MTP joint. Electronically Signed: Mynor Mendez MD at 14:19 EST , Foot X-Ray 06/23/23 13:55 IMPRESSION: Flatfoot deformity. Moderate degenerative arthrosis of the visualized subtalar, talonavicular, calcaneocuboid, tarsal and tarsometatarsal articulations. Moderate to severe degenerative arthrosis of the metatarsophalangeal joint of the hallux with a hallux valgus deformity. Electronically Signed: Mynor Mendez MD at 14:21 EST , Assessment & Plan Assessment/Plan (1) Toe osteomyelitis, left: (2) Polyneuropathy: (3) Diabetes mellitus: (4) Non-pressure chronic ulcer of other part of left foot with necrosis of bone: (5) Non-pressure chronic ulcer of other part of right foot with fat layer exposed: (6) Cellulitis of left lower limb: PLAN: Plan Patient has been admitted for left 2nd toe osteomyelitis and foot cellulitis, also chronic right foot wound to 1st MTPJ plantarly. A culture has been obtained left 2nd toe ulceration and sent to microbiology - patient has been started on IV antibiotics Vanc and Zosyn New bilateral foot xrays 3 views ordered and MRI left foot ordered. Reviewed LEAS from 05/23/23 and good arterial flow to bilateral foot. Discussed options with patient and she would like to proceed with surgical intervention which will be plan for tomorrow as long as cleared from medical standpoint for anesthesia. Hospital Medicine has been consulted - appreciated assistance. Wound care bilateral foot wounds - betadine soln and gauze dressing changes daily for now. DVT prophylaxis - SCDs for now given possible surgical intervention tomorrow
[2023-06-23 20:17] VITALS: BP 102/58; PULSE 77; RESP 16; TEMP 36.6; O2SAT 99
[2023-06-23] MEDS: Donepezil HCl 10 MG Tablet PO (20:43)
[2023-06-23] MEDS: lamoTRIgine 100 MG Tablet PO (20:43)
[2023-06-23] MEDS: DULoxetine Hcl 30 MG Capsule PO (20:43)
[2023-06-23] MEDS: Menthol/Lanolin/Calamine/Znox 113 GM Tube 1 APPLIC TOPICAL (20:44)
[2023-06-23] MEDS: 0.9% Saline Lock 10 ML Syringe IV (21:52)
[2023-06-23] MEDS: Acetaminophen 325 MG Tablet 650 MG PO (23:34)
[2023-06-24] VITALS (14 sets, daily range): BP systolic 98–134; BP diastolic 56–96; PULSE 57–94; RESP 16–18; TEMP 36.3–36.8; O2SAT 94–99; BMI 26.0; BMI 26.1
[2023-06-24] MEDS: Piperacil/Tazobactam 3.375 GM in 0.9% Normal Saline (50mL MB+) 50 ML IV ×3 (05:22→22:31)
[2023-06-24 05:31] LABS: Absolute Neutrophil Count 4.9 X10^3/uL (2.0-7.7); Basophil% 0.8 % (0-1); Eosinophils% 4.6 % (0-5); Hematocrit 41.6 % (37-47); Hemoglobin 13.4 g/dL (12.0-15.0); Lymphocyte % 19.7 % (19-41); Mean Corp Hgb Conc 32.2 g/dL (32-36); Mean Corpuscular Hgb 33.1 pg (27.0-32.0); Mean Corpuscular Volume 102.7 fL (81-99); Mean Platelet Vol. 9.2 fl (6.2-12.0); Monocyte% 6.5 % (0-10); Neutrophil # 4.94 X10^3/uL (2.7-7.7); Neutrophil % 68.1 % (47-70); Platelet Count 262 K/mm3 (150-450); RBC Distribution Width CV 13.1 % (11.6-14.6); RBC Distribution Width SD 49.4 fl (35.1-43.9); Red Blood Count 4.05 M/mm3 (4.2-5.4); White Blood Count 7.3 K/mm3 (4.4-11.0)
[2023-06-24 05:32] LABS: Absolute Lymphocyte Count 1.43 X10^3/uL (0.83-4.51); Basophil# 0.06 X10^3/uL; Eosinophil# 0.33 X10^3/uL; Lymphocyte # 1.43 X10^3/ul (0.83-4.51); Monocyte# 0.47 X10^3/uL; NRBC Flagged by Analyzer 0 % (0-5)
[2023-06-24 05:41] LABS: Partial Thromboplast Time 29.4 Seconds (24.1-36.2)
[2023-06-24 05:49] LABS: Anion Gap 5 (5-15); BUN 30 mg/dL (7-18); BUN/Creat Ratio 33.4 RATIO (10-20); Calcium,Total 9.2 mg/dL (8.5-10.1); Chloride 109 mmol/L (98-107); EST Glomerular Filtration Rate 64 mL/min (>60); Est Glom Filt Rate - Afr Amer 77 mL/min (>60); Estimated Creatinine Clearance 47.67 ml/min; Glucose 102 mg/dL (74-106); Potassium 4.4 mmol/L (3.5-5.1); Sodium Level 143 mmol/L (136-145)
--- NOTE | 2023-06-24 07:44 | WOUNDNOTE ---
According to nursing staff, patient is scheduled for surgery later today. will leave dressings in place at this time.
[2023-06-24 08:03] LABS: International Normalized Ratio 1.2; Prothrombin Time (Protime)PT. 14.7 SECONDS (11.7-14.9)
[2023-06-24] MEDS: Vancomycin IV 500 MG/100 ML BAG 100 MG IV ×2 (08:30→20:44)
[2023-06-24] MEDS: 0.9% Saline Lock 10 ML Syringe IV (08:31)
--- NOTE | 2023-06-24 09:40 | BON_PTH ---
PATHOLOGY RESULTS PATIENT: MAGDY MIRAMONTES LOC: MS3 U#:[id number] AGE/SX: 82/F ROOM: [facility] RE06/23/[address]: Dr. Blu Hernandes DPM : 1940 BED: 1 DIS: 06/29/2023 SPEC #: [id number] RECD: 06/27/23 07:32 STATUS: DONNA DARCY #: [id number] ABHISHEK: 06/24/23 09:[address]: Blu Hernandes DEPT: SURGICAL PATHOLOGY RECD BY: Rupali Hidalgo ENTERED: 06/27/23 07:33 SP TYPE: Bone OTHR DR: DO Dr. Nahomy Mariee MD Dr. Robert Leininger, MD Tissues: Toe, NOS Toe, NOS Toe, NOS Toe, NOS Procedures: Decalcification bone/plaque Surgery Specimen Level IV HEADER OPERATION: Left foot second toe debridement of ulcer and bone with arthritis PRE-OP DIAGNOSIS: Left toe osteomyelitis, polyneuropathy, non-pressure ulcer chronic ulcer of left foot with necrosis of bone, non-pressure ulcer chronic ulcer of right foot with fat layer exposed TISSUE SUBMITTED: A - Right first toe bunion, B - Left second toe ulcer, C - Left second toe bone, D - Clearance fragment left second toe MICROSCOPIC DIAGNOSIS A. Right first toe bunion, excision: Pieces of bone with reactive and degenerative changes, clinically bunion. B. Left second toe ulcer, biopsy: Focal ulceration, acute and chronic inflammation and granulation tissue reaction. C. Left second toe bone, biopsy: A piece of bone with focal mild acute osteomyelitis. D. Clearance fragment left second toe bone, biopsy: A piece of bone, negative for acute osteomyelitis. Focal minimal chronic inflammation. SJ:kyle 06/30/2023 MICROSCOPIC DESCRIPTION Slides are reviewed. GROSS DESCRIPTION A - Received in fixative is one container labeled with the patient's name and designated right first toe bunion. The specimen consists of multiple pieces of bone that in aggregate measure 4.0 x 4.5 x 1.0 cm. Rod Tape Operator sections are submitted after decalcification in two cassettes. B - Received in fixative is one container labeled with the patient's name and designated left second toe ulcer. The specimen consists of three variable sized pieces of ennis-white skin measuring in aggregate 1.0 x 1.0 x 0.2 cm. The entire specimen is submitted in one cassette. C - Received in fixative is one container labeled with the patient's name and designated left second toe bone. The specimen consists of a piece of bone measuring 1.1 x 0.6 x 0.2 cm. The entire specimen is submitted in one cassette after decalcification. D - Received in fixative is one container labeled with the patient's name and designated clearance fragment left second toe. The specimen consists of a piece of bone measuring 1.0 x 0.4 x 0.3 cm. The entire specimen is submitted in one cassette after decalcification. / STEVIE:kyle 06/27/2023 TC:2 CPT: 20258 x3, 81203, 30759 x3
[2023-06-24] MEDS: Acetaminophen 325 MG Tablet 650 MG PO ×2 (09:47→20:51)
[2023-06-24] MEDS: Menthol/Lanolin/Calamine/Znox 113 GM Tube 1 APPLIC TOPICAL ×2 (09:50→20:59)
[2023-06-24 09:55] LABS: Hemoglobin A1c 5.6 % (3.8-5.6)
--- NOTE | 2023-06-24 12:05 | CASEMGMT ---
RN CM Face to Face with patient for initial transition planning/care coordination assessment. RN CM introduced self and role at [facility]. Patient lying in bed, alert and oriented, at bedside. Patient willing to participate in assessment and is able to answer all questions appropriately. Care providers, pharmacy, and demographics verified. Patient wishes to discharge home with HHC but is willing go to SNF if needed, will monitor course of treatment and progress with therapy. Patient states she has no further needs or concerns at this time. CM to follow for discharge planning needs that may arise. 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 Pateint was independent at home, assists with bathing at times. Transportation: DME/HHC: Patient has shower chair, raised toilet, cane, walker, grab bars at home. Patient has been to [facility] in the past. Patient has had [facility] HHC in the past. prefers TCU if patient needs SNF. Disposition Plan: TBD, anticipate HHC vs SNF pending course of treatment and progress with therapy. Geri OJEDA, RN, CM
--- NOTE | 2023-06-24 12:39 | CON.PCM.ID_ITS ---
Assessment & Plan Assessment/Plan (1) Toe osteomyelitis, left: PLAN: OR today. Prior cxs with [facility]. Will cont vanc.zosyn. Will follow, thank you (2) Polyneuropathy: HPI Consult Data Date of Consult: 06/24/23 HPI Narrative Reason for Consultation: osteo HPI Narrative: MAGDY MIRAMONTES, is a 82 F who presented 06/23 with worsening L toe infection and chronic R foot ulcer. H/o neuropathy. No recent abx. Had increased in redness and swelling yesterday, sent to the hospital. No fever or chills, no drainage. Admitted on vanc/zosyn, going to OR today. Full ROS performed and neg except as noted above. [facility] Medical History Abnormal stress test Acute postoperative pain of right knee Acute systolic congestive heart failure Ambulates with cane Anxiety Aortic stenosis Aortic valve stenosis with insufficiency Arthritis Atherosclerotic heart disease of [place] coronary artery without angina pectoris Atrial fibrillation Back pain Cardiology follow-up encounter Cardiomyopathy Cellulitis of chest wall Chronic constipation Chronic cough Congestive heart failure (CHF) Debility Debility Dementia Depression Depression Diabetes Diabetes mellitus Diabetic neuropathy Diabetic polyneuropathy Dietary restriction DM2 (diabetes mellitus, type 2) Epilepsy Essential hypertension Former smoker H/O cardiac murmur History of atrial fibrillation History of echocardiogram History of left heart catheterization (LHC) (~06/02/22) History of pain when walking History of steroid therapy History of stress test Hx of back injury Hx of vaginal delivery Hypertension Hypertension Hypertension Inability to ambulate due to knee Injury of back Injury of head and neck Mitral regurgitation Nephrolithiasis Neuropathy Neuropathy, diabetic Other longterm (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 Parkinson's disease Paroxysmal atrial fibrillation Pericardial effusion Pleural effusion due to CHF (congestive heart failure) Preoperative cardiovascular examination Rotator cuff tear arthropathy of left shoulder Tremor Vitamin D deficiency Wears glasses Home Medications duloxetine 30 mg capsule,delayed release 30 mg PO QHS NEUROPATHY 09/22/20 [History Last Taken 06/22/23] nitroglycerin 0.4 mg sublingual tablet 0.4 mg sublingual Q5M PRN Cardiac/Chest Pain #0 tabs 06/11/22 [Rx Last Taken Unknown] cyanocobalamin (vitamin B-12) 1,000 mcg tablet (Vitamin B-12) 1,000 mcg PO DAILY supplement 08/10/22 [History Last Taken 06/23/23 09:00] famotidine 40 mg tablet 20 mg PO BID stomach 08/10/22 [History Last Taken 06/23/23 09:00] oxycodone 5 mg tablet 5 mg PO Q4H PRN PRN Pain Score 6-10 7 days #28 tabs 11/24/22 [Rx Last Taken Unknown] cholecalciferol (vitamin D3) 25 mcg (1,000 unit) tablet (Vitamin D3) 50 mcg PO DAILY Supplement 12/28/22 [History Last Taken 06/23/23 09:00] apixaban 2.5 mg tablet (Eliquis) 2.5 mg PO BID #180 tabs 01/04/23 [Rx Last Taken 06/23/23 09:00] furosemide 40 mg tablet 40 mg PO DAILY Diuretic 01/04/23 [History Last Taken 06/23/23 09:00] potassium chloride 20 mEq tablet,extended release(part/cryst) (Klor-Con M) 20 meq PO DAILY Supplement 01/04/23 [History Last Taken 06/23/23 09:00] aspirin 81 mg tablet,delayed release (Adult Low Dose Aspirin) 81 mg PO DAILY 04/08/23 [History Last Taken 06/23/23 09:00] losartan 25 mg tablet 25 mg PO QHS 04/08/23 [History Last Taken 06/22/23] spironolactone 25 mg tablet 25 mg PO QHS 04/08/23 [History Last Taken 06/22/23] donepezil 10 mg tablet 10 mg PO QHS #90 tabs 05/02/23 [Rx Last Taken 06/22/23] lamotrigine 100 mg tablet 100 mg PO BID Seizures #180 tabs 05/02/23 [Rx Last Taken 06/23/23 09:00] diltiazem HCl 120 mg capsule,extended release 24 hr (Cartia XT) 120 mg PO DINNER heart 05/23/23 [History Last Taken 06/22/23] metoprolol tartrate 25 mg tablet 25 mg PO DAILY 06/23/23 [History Last Taken 06/23/23 09:00] Allergy/AdvReac Type Severity Reaction Status Date / Time levetiracetam Allergy Other Verified 06/23/23 11:37 nickel Allergy Rash Verified 06/23/23 11:37 sulfamethoxazole Allergy Itching Verified 05/23/23 13:02 [From Bactrim] trimethoprim [From Bactrim] Allergy Itching Verified 05/23/23 13:02 codeine AdvReac Nausea Verified 05/23/23 13:02 milk AdvReac Nausea/Vom/ Verified 06/23/23 11:37 Diarrhea Family History Father No problems noted. Mother No problems noted. Surgical History Amputated toe of right foot Deviated septum History of appendectomy History of cholecystectomy History of hysterectomy History of left hip hemiarthroplasty History of neck surgery History of tonsillectomy History of total right knee replacement (TKR) Hx of cystoscopy Hx of fusion of cervical spine S/P total knee arthroplasty Social History household members: spouse Smoking Status: Former smoker alcohol intake: never substance use type: does not use caffeine: No what type of physical activity do you participate in: other details: physical therapy seatbelt use: always do you feel safe at home: Yes Physical Exam Const alert and no apparent distress General Appearance: cooperative HEENT normocephalic and head/scalp atraumatic Eyes PERRL and EOMs intact bilaterally Neck supple and nodes Resp normal air movement and clear to auscultation bilaterally Cardio regular rate and regular rhythm GI soft to palpation, non-tender and non-distended Extremity General Extremity: Negative for edema Skin Skin Narrative: Ulcers on both feet Neuro CN's II-XII intact bilaterally Lab / Micro Data Attestation: I reviewed the patient's lab results. 06/24/23 05:15 06/24/23 05:15 Labs: Laboratory Results - last 24 hr 06/23/23 11:30: S.aureus Protein A PCR NEGATIVE, MRSA (PCR) Negative 06/23/23 14:07: WBC 8.8, RBC 3.93 L, Hgb 13.0, Hct 40.1, MCV 102.0 H, MCH 33.1 H , MCHC 32.4, RDW Std Deviation 49.6 H, RDW Coeff of Robert 13.2, Plt Count 296, MPV 9.2, Immature Gran % (Auto) 0.300, Neut % (Auto) 67.3, Lymph % (Auto) 21.9, [place] % (Auto) 6.3, Eos % (Auto) 3.4, Baso % (Auto) 0.8, Absolute Neuts (auto) 5.9, Absolute Lymphs (auto) 1.93, Nucleated RBC % 0, ESR 9, Sodium 140, Potassium 4.4, Chloride 104, Carbon Dioxide 31.0, Anion Gap 5, BUN 24 H, Creatinine 0.98, Estim Creat Clear Calc 43.78, Est GFR (MDRD) Af Amer 69, Est GFR (MDRD) Non-Af 57 L, BUN/Creatinine Ratio 24.4 H, Glucose 133 H, Calcium 9.8, Total Bilirubin 0.20, AST 15, ALT 19, Alkaline Phosphatase 146 H, C-React Prot Ext Range 5.93 H, Total Protein 7.0, Albumin 3.7, Globulin 3.3, Albumin/Globulin Ratio 1.1 06/24/23 05:15: WBC 7.3, RBC 4.05 L, Hgb 13.4, Hct 41.6, MCV 102.7 H, MCH 33.1 H , MCHC 32.2, RDW Std Deviation 49.4 H, RDW Coeff of Robert 13.1, Plt Count 262, MPV 9.2, Immature Gran % (Auto) 0.300, Neut % (Auto) 68.1, Lymph % (Auto) 19.7, [place] % (Auto) 6.5, Eos % (Auto) 4.6, Baso % (Auto) 0.8, Absolute Neuts (auto) 4.9, Absolute Lymphs (auto) 1.43, Nucleated RBC % 0, PT 14.7, INR 1.2, APTT 29.4, Sodium 143, Potassium 4.4, Chloride 109 H, Carbon Dioxide 29.0, Anion Gap 5, BUN 30 H, Creatinine 0.90, Estim Creat Clear Calc 47.67, Est GFR (MDRD) Af Amer 77, Est GFR (MDRD) Non-Af 64, BUN/Creatinine Ratio 33.4 H, Glucose 102, Hemoglobin A1c 5.6, Calcium 9.2 Micro: Microbiology 06/23/23 11:30 Wound - Toe Gram Stain - Final Imaging Radiology Impression Lower Extremity MRI 02/08/24 12:11 IMPRESSION: Skin ulceration along the dorsum of the second toe. Mild increased STIR marrow signal in the head of the second proximal phalanx, with preservation of the normal T1 marrow signal, suggestive of mild reactive marrow edema as opposed to osteomyelitis. Moderate degenerative arthrosis of the first MTP joint, with a hallux valgus deformity. Severe atrophy and fatty infiltration of the intrinsic muscles of the foot. Mild subcutaneous soft tissue edema along the dorsum of the foot. Electronically Signed: Mynor Mendez MD at 8:20 EST , Foot X-Ray 06/23/23 12:15 IMPRESSION: Persistent moderate degenerative arthrosis of the visualized subtalar, talonavicular, calcaneocuboid, tarsal and tarsometatarsal articulations. Persistent severe degenerative arthrosis of the metatarsophalangeal joint of the hallux with a hallux valgus deformity. More pronounced bunion deformity of the first MTP joint. Electronically Signed: Mynor Mendez MD at 14:19 EST Reading Location ID and State: [id number] / [facility] , Service support , Foot X-Ray 06/23/23 13:55 IMPRESSION: Flatfoot deformity. Moderate degenerative arthrosis of the visualized subtalar, talonavicular, calcaneocuboid, tarsal and tarsometatarsal articulations. Moderate to severe degenerative arthrosis of the metatarsophalangeal joint of the hallux with a hallux valgus deformity. Electronically Signed: Mynor Mendez MD at 14:21 EST Reading Location ID and State: [id number] / [facility] , Service support ,
--- NOTE | 2023-06-24 13:50 | RAD_ITS ---
INDICATION: right 1st toe debridement EXAMINATION/TECHNIQUE: X-RAY - RIGHT FOOT XR Toes Min 2 Views 1 VIEW COMPARISON: Left foot series 06/23/2023 FINDINGS: Single fluoroscopic spot films obtained during debridement left first toe. For details of the procedure please refer to the operative note. Total fluoroscopic time: 1 second RAD/Toe(s) Min 2 Views IMPRESSION: Status post right first toe debridement. Electronically Signed: Gary Guerrero MD at 18:20 EST ,
[2023-06-24] MEDS: Bupivacaine Mpf 0.5% 30 ML VIAL (14:04)
--- NOTE | 2023-06-24 14:28 | CASEMGMT ---
Discharge Planning A list of?SNF providers including quality and resource use data and consistent with the patient's preferred geographic region, medical needs, and insurance network was created in [employer] Guide.? This list was provided to the SW. Coleen Dotson Discharge Planning Asst.
--- NOTE | 2023-06-24 14:50 | PCM.PN.HOSP ---
Reason for Visit Reason for Visit: Diagnoses Type 2 diabetes mellitus without complications (06/23/23) Polyneuropathy, unspecified (06/23/23) Atherosclerotic heart disease of [place] coronary artery without angina pectoris (06/23/23) Unspecified atrial fibrillation (06/23/23) Chronic systolic (congestive) heart failure (06/23/23) Cellulitis of left lower limb (06/23/23) Non-pressure chronic ulcer of other part of right foot with fat layer exposed (06/23/23) Non-pressure chronic ulcer of other part of left foot with necrosis of bone (06/23/23) Osteomyelitis, unspecified (06/23/23) Subjective Subjective No acute meds overnight. Patient seen at bedside this morning. Patient was sleeping on my arrival to the room. Denied any acute pain or discomfort this morning. She was looking forward to having her procedure done later today. No other concerns this time. Objective Data Objective Data Vital Signs: Vital Signs Temp Pulse Resp BP Pulse Ox O2 Del Method 98.3 F 57 L 18 111/60 98 Room Air 06/24/23 12:26 06/24/23 12:26 06/24/23 12:26 06/24/23 12:26 06/24/23 12:26 06/24/23 12:26 Oxygen Delivery Method Room Air Weight: 73.3 kg Body Mass Index (BMI) 26.0 Intake & Output: Intake and Output for Last 24 Hours 06/22/23 06/23/23 06/24/23 23:59 23:59 23:59 Intake Total 888 / 888 517.25 / 517.25 Balance 888 / 888 517.25 / 517.25 Lab / Micro Data 06/24/23 05:15 06/24/23 05:15 Labs: Laboratory Results - last 24 hr 06/23/23 11:30: S.aureus Protein A PCR NEGATIVE, MRSA (PCR) Negative 06/24/23 05:15: WBC 7.3, RBC 4.05 L, Hgb 13.4, Hct 41.6, MCV 102.7 H, MCH 33.1 H, MCHC 32.2, RDW Std Deviation 49.4 H, RDW Coeff of Robert 13.1, Plt Count 262, MPV 9.2, Immature Gran % (Auto) 0.300, Neut % (Auto) 68.1, Lymph % (Auto) 19.7, [place] % (Auto) 6.5, Eos % (Auto) 4.6, Baso % (Auto) 0.8, Absolute Neuts (auto) 4.9, Absolute Lymphs (auto) 1.43, Nucleated RBC % 0, PT 14.7, INR 1.2, APTT 29.4, Sodium 143, Potassium 4.4, Chloride 109 H, Carbon Dioxide 29.0, Anion Gap 5, BUN 30 H, Creatinine 0.90, Estim Creat Clear Calc 47.67, Est GFR (MDRD) Af Amer 77, Est GFR (MDRD) Non-Af 64, BUN/Creatinine Ratio 33.4 H, Glucose 102, Hemoglobin A1c 5.6, Calcium 9.2 Micro: Microbiology 06/23/23 11:30 Wound - Toe Gram Stain - Final Radiography Diagnostic Testing: Radiology Impression Lower Extremity MRI 06/23/23 12:11 IMPRESSION: Skin ulceration along the dorsum of the second toe. Mild increased STIR marrow signal in the head of the second proximal phalanx, with preservation of the normal T1 marrow signal, suggestive of mild reactive marrow edema as opposed to osteomyelitis. Moderate degenerative arthrosis of the first MTP joint, with a hallux valgus deformity. Severe atrophy and fatty infiltration of the intrinsic muscles of the foot. Mild subcutaneous soft tissue edema along the dorsum of the foot. Electronically Signed: Mynor Mendez MD at 8:20 EST Reading Location ID and State: [address] [place] [address] , Service support , Physical Exam Const alert, oriented x3, no apparent distress and average body habitus Constitutional Narrative: Pleasant elderly female, laying comfortably in bed, conversing normally, no acute distress. General Appearance: cooperative and comfortable HEENT normocephalic, head/scalp atraumatic, hearing grossly normal bilaterally, nasal mucous membranes and turbinates normal and moist oral mucous membranes Eyes PERRL, EOMs intact bilaterally and conjunctivae normal Neck full ROM, no lymphadenopathy and supple Lymph Lymphatic: no lymphadenopathy noted Chest inspection of chest normal Resp normal respiratory effort, normal air movement, no use of accessory muscles and clear to auscultation bilaterally Cardio regular rate, regular rhythm, no murmurs and peripheral pulses 2+ throughout GI normal to inspection, nondistended, normoactive bowel sounds, soft to palpation, non-tender and non-distended Back/Spine normal ROM Extremity full ROM and no pedal edema Extremity Narrative: Left second toe ulceration noted. Also had ulceration under the pad of the base of the right toe that was covered with a gauze pad, appeared more chronic. 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 Medicine consulted for medical management. 1. Suspected left second toe osteomyelitis Follows with Dr. Hernandes. Hemodynamically stable, afebrile, WBC count normal on admit. CRP 5.9, ESR normal. Left foot x-ray shows moderate degenerative arthrosis but no evidence of osteomyelitis. MRI left foot 06/23 showed skin ulceration along dorsum of second toe concerning for mild reactive marrow edema versus osteomyelitis. Notably had prior cultures that grew Pseudomonas. ? Podiatry primary. Infectious disease consulted. S/p debridement of ulcer to and including bone with arthroplasty of left second toe on 06/24. Intraoperative cultures collected. Continue vancomycin and Zosyn for now per ID recommendations. PT/OT/case management following. Continue holding Eliquis, will restart per podiatry recommendations. 2. Right first metatarsophalangeal joint ulcer with bunion deformity ? Podiatry primary as noted above. S/p simple bunionectomy with debridement of ulcer to and including subcutaneous tissue on 06/24. Weightbearing recommendations per podiatry. PT/OT/case management following as above. 3. HFrEF, aortic stenosis, history of nonobstructive CAD Follows with cardiology, last office visit on 05/23/2023. Please see this office note for complete details. In short, most recent TTE in 10/2022 showed EF 25%, severe global LV dysfunction, mild concentric LV hypertrophy, mild to moderate aortic stenosis. Notably had left heart cath done in 05/2022 that showed multivessel nonobstructive CAD. Had TTE done in 05/2021 that showed EF 35%, otherwise similar findings to more recent echo. ? Patient hemodynamically stable on room air since admission. Tolerated procedure on 06/24 without issue. Continue home aspirin, otherwise holding all home medications for now, will restart as able. 4. Paroxysmal atrial fibrillation, recent history of LBBB ? Normal sinus rhythm since admission. Continue cardiac monitoring. Will restart home Eliquis per podiatry recommendations. Holding home Lopressor and diltiazem, will restart when able. 5. Hypertension ? Holding home Lasix, diltiazem, Lopressor, losartan, spironolactone for now, will restart when able. 6. Seizure disorder ? Continue home lamotrigine. 7. GERD ? Continue home PPI. 8. Chronic neuropathy ? Continue home duloxetine. DVT prophylaxis: SCDs CODE STATUS: Full code, unverified Expected disposition: Home with home health care versus SNF, TBD Total clinical time spent by myself addressing the patient's medical issues, reviewing all the data, and collaborating with patient's care team: 35 minutes. Charges/Coding Visit Charges Inpatient E&M: 58447 Subs Hosp L2
--- NOTE | 2023-06-24 15:13 | PCM.OPRPT ---
Report of Operation Date of Procedure: 06/24/23 Pre-Operative Diagnosis: Osteomyelitis and hammer toe with ulcer down to bone left 2nd toe Bunion deformity, prominent bone/exostosis, ulcer down to subcutaneous tissue right 1st metatarsal phalangeal joint Post-Operative Diagnosis: Same Surgery/Procedure Performed:: Right foot: Simple bunionectomy, sesamoidectomy, debridement of ulcer to and including subcutaneous tissue 1st metatarsal phalangeal joint Left foot: Debridement of ulcer to and including bone with arthroplasty 2nd toe Surgeon: Blu Hernandes internal auditor: None Type of Anesthesia: General and Local Specimen's removed: 1. Debrided ulcer from left 2nd toe sent to pathology 2. Debrided bone left 2nd toe sent to pathology and microbiology 3. Clearance fragment left 2nd toe sent to pathology and microbiology 4. Bunion, exostosis, and sesamoids right 1st metatarsal phalangeal joint sent to pathology Estimated Blood Loss (mL): 2mL Description of Procedure: Indications: 82 year old female with many medical problems including diabetes with peripheral neuropathy, also with severe foot deformities which are chronic - hallux valgus, hammer toes, pes planus, and charcot neuroarthropathy. She developed a wound to the dorsal left 2nd toe, which has worsened and has infection - red, swollen, and draining, ulcer is down to bone with exposed bone and tendon overlying the proximal interphalangeal joint. Also she has chronic on and off ulceration to the right foot sub 1st metatarsal phalangeal joint - we can get it to heal with soft cast but then whenever she goes back to her diabetic shoe and insert ulcer pretty much comes back immediately. Due to the infection she was sent to hospital and has been admitted for further management. Discussed the options with her and she elected to proceed with bilateral foot surgical intervention with the procedures discussed above. Reviewed these with her in detail, reviewed the possible benefits vs risks, goals, expectations and estimated healing time. Advised her the risks include but not limited to pain, bleeding, need for further surgical intervention, recurrence, blood clots, infection, deformity, scarring, numbness, loss of limb, loss of life. She was able to repeat back. No guarantees were given nor implied. No warranties were given. The alternative options were discussed with her - antibiotics, wound care, no treatment. The consent form was reviewed with her and she freely signed it. Operative Procedure: The patient was brought back to the operating room and was placed on the operating room table in the supine position. Patient was secured to the operating room table with a safety belt around her waist. A timeout was performed and the patient was properly identified and surgical plan confirmed. The patient was already on IV antibiotic therapy. Well padded pneumatic tourniquets were applied to bilateral ankles. The patient received anesthesia per the anesthesia team. A total of 6.5mL of 0.5% Bupivacaine plain was given as a local right foot 1st ray block and 1.5mL of 0.5% Bupivacaine plain was given as a left 2nd toe block after the overlying skin was cleansed with 70% Isopropyl alcohol. Bilateral feet were scrubbed, prepped, and draped in the usual aseptic fashion. Right foot surgical intervention: Attention was directed to the foot where there was a ulceration plantar 1st metatarsal phalangeal joint measuring 0.3cm x 0.3cm and 0.2cm in depth down to subcutaneous tissue. There as severe hallux valgus bunion deformity with prominent bone plantar 1st metatarsal phalangeal joint. The right foot was exsanguinated using an Esmarch bandage and the right ankle pneumatic tourniquet was inflated to 250mmHg. An incision was made to the medial 1st metatarsal phalangeal joint using a 15 blade. Dissection was completed down to the 1st metatarsal phalangeal joint and the capsule was incised medially in longitudinal fashion and the capsule was partially reflected. There was some wearing away of the cartilage c/w DJD, but no evidence of infection, the medial eminence of the bunion was resected using a powered saggital saw, the plantar aspect of the 1st metatarsal head and base of the proximal phalanx were resected using the powered sagittal saw, and the sesamoids were resected and excised using a 15 blade - the bone was removed and sent to pathology. The plantar 1st metatarsal phalangeal joint was decompressed plantarly. There was no evidence of infection, the bone was white and hard. The site The site was flushed with copious amounts of normal saline solution. The skin edges were reapproximated using 3-0 Nylon. A dressing of betadine adaptic, 4x4 gauze, kerlix and mac dressing was applied. The pneumatic tourniquet (total inflated tourniquet time was 41 minutes) was deflated and there was immediate return of warmth and perfusion to the foot and to all toes with CFT < 2 seconds to all toes. The ulceration was debrided down to and including subcutaneous tissue in excisional fashion using a 15 scalpel blade. Left 2nd toe ulcer debridement and arthroplasty: Further attention was directed to the left foot where there and severe hammer toe deformity and was an ulceration down to bone of the toe at level of the dorsal proximal interphalangeal joint. The ulcer was nonviable. The left foot was exsanguinated using an Esmarch bandage and the left ankle pneumatic tourniquet was inflated to 250mmHg. The ulcer was excised down to and including tendon and bone in excisional fashion using a 15 scalpel blade - the excised ulcer was sent to pathology, the debrided ulcer measured 0.6cm x 0.4cm and 0.2cm in depth. The head of the proximal phalanx was soft and nonviable - it was excised and sent to pathology and microbiology. A clearance fragment was obtained from the proximal phalanx using a powered sagittal saw and was sent to pathology and microbiology. The remaining tissues were healthy and viable, remaining bone was hard and white and appeared free of infection. The site was flushed out with copious amounts of normal saline solution. The skin edges were reapproximated using 3-0 Nylon. A dressing of betadine adaptic, 4x4 gauze, kerlix and mac dressing was applied. The pneumatic tourniquet (total inflated tourniquet time was 16 minutes) was deflated and there was immediate return of warmth and perfusion to the foot and to all toes with CFT < 2 seconds to all toes. The patient toleated the proedure well and the anesthesia well with no complications. She was transported from the operating room to the recovery room with vital signs stable and in good condition. Post operative orders were placed. The patient will be followed as an inpatient. Also post op xrays bilateral foot 3 views each were ordered, obtained and reviewed. Grafts/Implants Used: None Complications None
[2023-06-24 15:41] LABS: Bedside Glucose 92 mg/dL (74-106)
--- NOTE | 2023-06-24 16:00 | RAD_ITS ---
STUDY: X-RAY - RIGHT FOOT CLINICAL: Female, 82 years old. POST-OP TECHNIQUE: 2 view(s) of the foot. COMPARISON: 06/23/2023. FINDINGS: Since prior exam, patient has had osteotomy of the medial head of the first metatarsal. Prominent soft tissue air seen in and around the first metatarsophalangeal area consistent with the recent surgery. Infection cannot be excluded. Prominent hallux valgus. Absent third toe. Pes planus and prominent degenerative changes of the midfoot. RAD/Foot min 3 Views IMPRESSION: Surgical changes of the head of the first metatarsal. No other significant changes since one day prior. Electronically Signed: Yusuf Watson MD at 17:02 EST ,
--- NOTE | 2023-06-24 16:00 | RAD_ITS ---
STUDY: X-RAY - LEFT FOOT CLINICAL: Female, 82 years old. post op TECHNIQUE: 3 view(s) of the foot. COMPARISON: 06/23/2023. FINDINGS: Since prior study, there appears to have been resection of the head of the second proximal phalanx. No other changes since yesterday. Again seen is severe hallux valgus and bunion, and pes planus with prominent degenerative changes of the midfoot. RAD/Foot min 3 Views IMPRESSION: Gross change since yesterday. Since prior study, there appears to have been resection of the head of the second proximal phalanx. Electronically Signed: Yusuf Watson MD at 17:00 EST ,
[2023-06-24] MEDS: Juven (unflavored) Packet 1 PACKET PO (16:57)
[2023-06-24] MEDS: lamoTRIgine 100 MG Tablet PO (20:59)
[2023-06-24] MEDS: DULoxetine Hcl 30 MG Capsule PO (20:59)
[2023-06-24] MEDS: Donepezil HCl 10 MG Tablet PO (20:59)
[2023-06-24] MEDS: oxyCODONE 5 MG Tablet PO (22:30)
[2023-06-25 00:23] VITALS: BP 112/57; PULSE 102; RESP 16; TEMP 36.6; O2SAT 94; BMI 26.1
[2023-06-25 04:25] VITALS: BP 101/55; PULSE 90; RESP 16; TEMP 36.3; O2SAT 96; BMI 26.1
[2023-06-25] MEDS: oxyCODONE 5 MG Tablet PO ×3 (04:35→18:07)
[2023-06-25] MEDS: Acetaminophen 325 MG Tablet 650 MG PO ×3 (04:36→18:07)
[2023-06-25] MEDS: Piperacil/Tazobactam 3.375 GM in 0.9% Normal Saline (50mL MB+) 50 ML IV ×3 (05:54→22:03)
[2023-06-25] MEDS: 0.9% Saline Lock 10 ML Syringe IV (05:54)
[2023-06-25 08:23] VITALS: BP 120/53; PULSE 92; RESP 14; TEMP 36.3; O2SAT 94; BMI 26.1
[2023-06-25 08:31] LABS: Vancomycin, Trough Level 13.5 ug/mL (5.0-15.0)
[2023-06-25] MEDS: Juven (unflavored) Packet 1 PACKET PO ×2 (09:00→17:55)
[2023-06-25] MEDS: Menthol/Lanolin/Calamine/Znox 113 GM Tube 1 APPLIC TOPICAL ×2 (09:01→22:03)
[2023-06-25] MEDS: Aspirin E.C. 81 MG Tablet PO (09:01)
[2023-06-25] MEDS: Famotidine 20 MG Tablet PO (09:02)
[2023-06-25] MEDS: lamoTRIgine 100 MG Tablet PO ×2 (09:02→22:03)
[2023-06-25 09:03] LABS: Anion Gap 3 (5-15); BUN 21 mg/dL (7-18); BUN/Creat Ratio 28.5 RATIO (10-20); Calcium,Total 8.8 mg/dL (8.5-10.1); Chloride 111 mmol/L (98-107); Creatinine, Serum 0.74 mg/dL (0.55-1.02); EST Glomerular Filtration Rate 80 mL/min (>60); Est Glom Filt Rate - Afr Amer 96 mL/min (>60); Estimated Creatinine Clearance 53.63 ml/min; Glucose 109 mg/dL (74-106); Potassium 3.9 mmol/L (3.5-5.1); Sodium Level 139 mmol/L (136-145)
[2023-06-25] MEDS: Flu Vacc QS2023-24(65YR UP)/PF 240 MCG/0.7 ML Syringe IM (09:03)
[2023-06-25 09:51] LABS: Hemoglobin 12.1 g/dL (12.0-15.0); Mean Corp Hgb Conc 31.8 g/dL (32-36); Mean Corpuscular Hgb 32.6 pg (27.0-32.0); Mean Corpuscular Volume 102.4 fL (81-99); Mean Platelet Vol. 10.1 fl (6.2-12.0); Platelet Count 240 K/mm3 (150-450); RBC Distribution Width SD 48.9 fl (35.1-43.9); Red Blood Count 3.71 M/mm3 (4.2-5.4); White Blood Count 8.7 K/mm3 (4.4-11.0)
[2023-06-25] MEDS: Vancomycin HCl 750 MG in 0.9% Normal Saline (250mL Bag) 250 ML 250 MG IV ×2 (09:56→22:04)
--- NOTE | 2023-06-25 10:24 | PCM.RX.CS ---
Consult Antibiotic Management Pharmacy has been consulted to manage selected antibiotic: Vancomycin Type of Intervention Type of Consult: Follow-up Suspected Infection Suspected Infection: Osteomyelitis Prior Doses of Antibiotics Prior Doses of Antibiotics Received/Current Regimen: current dose is vanc 500mg IV q12h Labs Labs: Sodium 139 mmol/L (136-145) 06/25/23 08:13 Potassium 3.9 mmol/L (3.5-5.1) 06/25/23 08:13 Chloride 111 mmol/L (98-107) H 06/25/23 08:13 Carbon Dioxide 25.0 mmol/L (21.0-32.0) 06/25/23 08:13 Anion Gap 3 (5-15) L 06/25/23 08:13 BUN 21 mg/dL (7-18) H 06/25/23 08:13 Creatinine 0.74 mg/dL (0.55-1.02) 06/25/23 08:13 Est GFR (MDRD) Af Amer 96 mL/min (>60) 06/25/23 08:13 Est GFR (MDRD) Non-Af 80 mL/min (>60) 06/25/23 08:13 BUN/Creatinine Ratio 28.5 RATIO (10-20) H 06/25/23 08:13 Glucose 109 mg/dL (74-106) H 06/25/23 08:13 Vancomycin Trough 13.5 ug/mL (5.0-15.0) 06/25/23 07:35 Microbiology Microbiology: Microbiology 06/23/23 11:30 Wound - Toe Gram Stain - Final 06/23/23 11:30 Wound - Toe Wound Culture - Preliminary Coag Negative Staph Dosing Weight Weight used for dosin.3 kg Estimated Creatinine Clearance Estimated Creatinine Clearance: 53.6ml/min Goal Trough Goal Trough: 15-20 mcg/mL Pharmacy Plan for Drug Dosing Pharmacy Plan for Drug Dosing: The vanc trough drawn at 07:35 today (approx 11 hours after the previous dose) was 13.5. This is below goal so will slightly increase next dose to 750mg q12h. Repeat a trough before the 4th new dose. Of note, the patient's SCr improved to 0.74 today from 0.90 and 0.98 the previous two days. Pharmacy Service will continue to monitor and adjust dosing as required. Follow-Up Labs Follow-Up Labs: Trough: Vancomycin Date/Time Labs Ordered Labs to be done on [date and time ordered]: 06/26/23 21:30
--- NOTE | 2023-06-25 12:19 | PCM.PN.HOSP ---
Reason for Visit Reason for Visit: Diagnoses Type 2 diabetes mellitus without complications (06/23/23) Polyneuropathy, unspecified (06/23/23) Atherosclerotic heart disease of [place] coronary artery without angina pectoris (06/23/23) Unspecified atrial fibrillation (06/23/23) Chronic systolic (congestive) heart failure (06/23/23) Cellulitis of left lower limb (06/23/23) Non-pressure chronic ulcer of other part of right foot with fat layer exposed (06/23/23) Non-pressure chronic ulcer of other part of left foot with necrosis of bone (06/23/23) Osteomyelitis, unspecified (06/23/23) Subjective Subjective No acute events overnight. Patient seen at bedside this morning. Patient was laying comfortably in bed, conversing normally, no acute distress. Both of patient's feet were wrapped in Jorge bandages down to the toes. Patient reported mild pain in both feet this morning at rest. States that she had not gotten out of bed yet this morning with assistance, was told that she could essentially walk on her heels in accordance with podiatry's plans for her weightbearing status. Patient otherwise denied any fevers or chills. No other acute concerns this time. Objective Data Objective Data Vital Signs: Vital Signs Temp Pulse Resp BP Pulse Ox O2 Del Method O2 Flow Rate 97.4 F L 90 16 101/55 L 96 Room Air 2 06/25/23 04:25 06/25/23 04:25 06/25/23 04:25 06/25/23 04:25 06/25/23 04:25 06/25/23 04:25 06/24/23 15:25 Oxygen Flow Rate (L/min) 2 Oxygen Delivery Method Room Air Weight: 73.3 kg Body Mass Index (BMI) 26.0 Intake & Output: Intake and Output for Last 24 Hours 06/23/23 06/24/23 06/25/23 23:59 23:59 23:59 Intake Total 888 / 888 1067.25 / 1417.25 550 / 550 Balance 888 / 888 1067.25 / 1417.25 550 / 550 Lab / Micro Data 06/25/23 07:35 06/25/23 08:13 Labs: Laboratory Results - last 24 hr 06/24/23 15:22: POC Glucose 92 06/25/23 07:35: WBC 8.7, RBC 3.71 L, Hgb 12.1, Hct 38.0, MCV 102.4 H, MCH 32.6 H, MCHC 31.8 L, RDW Std Deviation 48.9 H, RDW Coeff of Robert 13.0, Plt Count 240, MPV 10.1, Vancomycin Trough 13.5 06/25/23 08:13: Sodium 139, Potassium 3.9, Chloride 111 H, Carbon Dioxide 25.0, Anion Gap 3 L, BUN 21 H, Creatinine 0.74, Estim Creat Clear Calc 53.63, Est GFR (MDRD) Af Amer 96, Est GFR (MDRD) Non-Af 80, BUN/Creatinine Ratio 28.5 H, Glucose 109 H, Calcium 8.8 Micro: Microbiology 06/23/23 11:30 Wound - Toe Gram Stain - Final 06/23/23 11:30 Wound - Toe Wound Culture - Preliminary Coag Negative Staph Radiography Diagnostic Testing: Radiology Impression Toe X-Ray 06/24/23 13:50 IMPRESSION: Status post right first toe debridement. Electronically Signed: Gary Guerrero MD at 18:20 EST , Foot X-Ray 06/24/23 16:00 IMPRESSION: Gross change since yesterday. Since prior study, there appears to have been resection of the head of the second proximal phalanx. Electronically Signed: Yusuf Watson MD at 17:00 EST , Foot X-Ray 06/24/23 16:00 IMPRESSION: Surgical changes of the head of the first metatarsal. No other significant changes since one day prior. Electronically Signed: Yusuf Watson MD at 17:02 EST , Physical Exam Const alert, oriented x3, no apparent distress and average body habitus Constitutional Narrative: Pleasant elderly female, laying comfortably in bed, conversing normally, no acute distress. General Appearance: cooperative and comfortable HEENT normocephalic, head/scalp atraumatic, hearing grossly normal bilaterally, nasal mucous membranes and turbinates normal and moist oral mucous membranes Eyes PERRL, EOMs intact bilaterally and conjunctivae normal Neck full ROM, no lymphadenopathy and supple Lymph Lymphatic: no lymphadenopathy noted Chest inspection of chest normal Resp normal respiratory effort, normal air movement, no use of accessory muscles and clear to auscultation bilaterally Cardio regular rate, regular rhythm, no murmurs and peripheral pulses 2+ throughout GI normal to inspection, nondistended, normoactive bowel sounds, soft to palpation, non-tender and non-distended Back/Spine normal ROM Extremity full ROM and no pedal edema Extremity Narrative: Both feet wrapped in Jorge wrap down to the toes, no gross abnormalities noted on visual exam. Neuro no focal motor deficits and no sensory deficits noted Speech: speech normal Psych mental status grossly normal Assessment & Plan Assessment/Plan (1) Toe osteomyelitis, left: (2) Chronic systolic congestive heart failure: (3) Atrial fibrillation: (4) Coronary artery disease: PLAN: Plan Patient is an 82-year-old female who presented [facility] on 06/23/2023 as a direct admission from the medical records field technician office for concern for left second toe osteomyelitis. Medicine consulted for medical management. 1. Suspected left second toe osteomyelitis Follows with Dr. Hernandes. Hemodynamically stable, afebrile, WBC count normal on admit. CRP 5.9, ESR normal. Left foot x-ray shows moderate degenerative arthrosis but no evidence of osteomyelitis. MRI left foot 06/23 showed skin ulceration along dorsum of second toe concerning for mild reactive marrow edema versus osteomyelitis. Notably had prior cultures that grew Pseudomonas. ? Podiatry primary. Infectious disease following. S/p debridement of ulcer to and including bone with arthroplasty of left second toe on 06/24. Intraoperative cultures collected. Continue vancomycin and Zosyn for now per ID recommendations. PT/OT/case management following. Likely planning for home with home health care. Okay to restart Eliquis on evening of 06/25 per podiatry recommendations. 2. Right first metatarsophalangeal joint ulcer with bunion deformity ? Podiatry primary as noted above. S/p simple bunionectomy with debridement of ulcer to and including subcutaneous tissue on 06/24. Weightbearing recommendations per podiatry. PT/OT/case management following as above. 3. HFrEF, aortic stenosis, history of nonobstructive CAD Follows with cardiology, last office visit on 05/23/2023. Please see this office note for complete details. In short, most recent TTE in 10/2022 showed EF 25%, severe global LV dysfunction, mild concentric LV hypertrophy, mild to moderate aortic stenosis. Notably had left heart cath done in 05/2022 that showed multivessel nonobstructive CAD. Had TTE done in 05/2021 that showed EF 35%, otherwise similar findings to more recent echo. ? Patient hemodynamically stable on room air since admission. Tolerated procedure on 06/24 without issue. Continue home aspirin, otherwise holding all home medications for now, will restart as able. 4. Paroxysmal atrial fibrillation, recent history of LBBB ? Normal sinus rhythm since admission. Continue cardiac monitoring. Eliquis restarted on 06/25 as noted above. Holding home Lopressor and diltiazem, will restart when able. 5. Hypertension ? Holding home Lasix, diltiazem, Lopressor, losartan, spironolactone for now, will restart when able. 6. Seizure disorder ? Continue home lamotrigine. 7. GERD ? Continue home PPI. 8. Chronic neuropathy ? Continue home duloxetine. DVT prophylaxis: SCDs CODE STATUS: Full code, unverified Expected disposition: Home with home health care, 2 to 3 days Total clinical time spent by myself addressing the patient's medical issues, reviewing all the data, and collaborating with patient's care team: 35 minutes. Charges/Coding Visit Charges Inpatient E&M: 75260 Subs Hosp L2
--- NOTE | 2023-06-25 13:00 | PN_ITS ---
Subjective Subjective Patient was seen today for follow up on feet, she is resting in bed, eating lunch, she relates she did have pain last night which was constant until she took some pain medication, now pain is controlled. No complaints of f/c/n/v/sob/cp/calf pain Objective Data Objective Data Vital Signs: Vital Signs Temp Pulse Resp BP Pulse Ox O2 Del Method O2 Flow Rate 97.4 F L 90 16 101/55 L 96 Room Air 2 06/25/23 04:25 06/25/23 04:25 06/25/23 04:25 06/25/23 04:25 06/25/23 04:25 06/25/23 04:25 06/24/23 15:25 Oxygen Flow Rate (L/min) 2 Oxygen Delivery Method Room Air Weight: 73.3 kg Body Mass Index (BMI) 26.0 Intake & Output: Intake and Output for Last 24 Hours 06/23/23 06/24/23 06/25/23 23:59 23:59 23:59 Intake Total 888 / 888 1067.25 / 1417.25 550 / 550 Balance 888 / 888 1067.25 / 1417.25 550 / 550 Lab / Micro Data 06/25/23 07:35 06/25/23 08:13 Labs: Laboratory Results - last 24 hr 06/24/23 15:22: POC Glucose 92 06/25/23 07:35: WBC 8.7, RBC 3.71 L, Hgb 12.1, Hct 38.0, MCV 102.4 H, MCH 32.6 H , MCHC 31.8 L, RDW Std Deviation 48.9 H, RDW Coeff of Robert 13.0, Plt Count 240, MPV 10.1, Vancomycin Trough 13.5 06/25/23 08:13: Sodium 139, Potassium 3.9, Chloride 111 H, Carbon Dioxide 25.0, Anion Gap 3 L, BUN 21 H, Creatinine 0.74, Estim Creat Clear Calc 53.63, Est GFR (MDRD) Af Amer 96, Est GFR (MDRD) Non-Af 80, BUN/Creatinine Ratio 28.5 H, Gl ucose 109 H, Calcium 8.8 Micro: Microbiology 06/23/23 11:30 Wound - Toe Gram Stain - Final 06/23/23 11:30 Wound - Toe Wound Culture - Preliminary Coag Negative Staph Radiography Diagnostic Testing: Radiology Impression Toe X-Ray 06/24/23 13:50 IMPRESSION: Status post right first toe debridement. Electronically Signed: Gary Guerrero MD at 18:20 EST , Foot X-Ray 06/24/23 16:00 IMPRESSION: Gross change since yesterday. Since prior study, there appears to have been resection of the head of the second proximal phalanx. Electronically Signed: Yusuf Watson MD at 17:00 EST , Foot X-Ray 06/24/23 16:00 IMPRESSION: Surgical changes of the head of the first metatarsal. No other significant changes since one day prior. Electronically Signed: Yusuf Watson MD at 17:02 EST , Physical Exam Narrative Right foot - incision well coapted, sutures intact, there is some ecchymosis and edema c/w normal post op course, there is no dehiscense, no cellulitis, no visible abscess, no drainage, no fluctuance, no crepitus, no necrosis - site healing well. No evidence of ischemia, CFT < 2 seconds to all toes, no evidence of DVT to the LE. Left foot - incision well coapted 2nd toe, sutures intact, there is some ecchym osis and edema c/w normal post op course, there is no dehiscense, no cellulitis, no visible abscess, no drainage, no fluctuance, no crepitus, no necrosis - site healing well. No evidence of ischemia, CFT < 2 seconds to all toes, no evidence of DVT to the LE. Const alert, oriented x3 and no apparent distress Assessment & Plan Assessment/Plan (1) Toe osteomyelitis, left: (2) Polyneuropathy: (3) Diabetes mellitus: (4) Non-pressure chronic ulcer of other part of left foot with necrosis of bone: (5) Non-pressure chronic ulcer of other part of right foot with fat layer exposed: (6) Cellulitis of left lower limb: PLAN: Plan Patient has been admitted for left 2nd toe osteomyelitis and foot cellulitis, also chronic right foot wound to 1st MTPJ plantarly. Now s/p surgical intervention on 06/24/23 - feet doing wel ltoday. A culture has been obtained left 2nd toe ulceration and sent to microbiology - patient has been started on IV antibiotics Vanc and Zosyn. ID service has been consulted. Surgical cultures left 2nd toe have been obtained and results are pending. Reviewed LEAS from 05/23/23 and good arterial flow to bilateral foot. Wound care - betadine soln to incision sites, and gauze dressing changes daily for now bilateral feet. Hospital Medicine has been consulted - appreciated assistance. DVT prophylaxis - SCDs, also ok for patient to resume eliquis from podiatry standpoint. D/C planning - recommend nursing facility placement for rehab.
[2023-06-25 18:00] VITALS: BP 121/66; PULSE 81; RESP 15; TEMP 36.3; O2SAT 95
[2023-06-25 20:21] VITALS: BP 110/58; PULSE 93; RESP 18; TEMP 36.9; O2SAT 95
[2023-06-25] MEDS: APIXABAN 2.5 MG TABLET (WCH) PO (22:03)
[2023-06-25] MEDS: DULoxetine Hcl 30 MG Capsule PO (22:03)
[2023-06-25] MEDS: Donepezil HCl 10 MG Tablet PO (22:03)
[2023-06-26 03:12] VITALS: BP 102/50; PULSE 77; RESP 16; TEMP 36.4; O2SAT 95
[2023-06-26] MEDS: Piperacil/Tazobactam 3.375 GM in 0.9% Normal Saline (50mL MB+) 50 ML IV ×3 (05:42→22:26)
[2023-06-26] MEDS: 0.9% Normal Saline (250mL Bag) 250 ML 15 ML IV ×3 (05:45→19:41)
[2023-06-26 06:38] LABS: Hematocrit 38.6 % (37-47); Hemoglobin 11.6 g/dL (12.0-15.0); Mean Corp Hgb Conc 30.1 g/dL (32-36); Mean Corpuscular Hgb 33.3 pg (27.0-32.0); Mean Corpuscular Volume 110.9 fL (81-99); Mean Platelet Vol. 9.5 fl (6.2-12.0); Platelet Count 213 K/mm3 (150-450); Red Blood Count 3.48 M/mm3 (4.2-5.4); White Blood Count 6.5 K/mm3 (4.4-11.0)
[2023-06-26 07:01] LABS: Anion Gap 3 (5-15); BUN 18 mg/dL (7-18); BUN/Creat Ratio 31.5 RATIO (10-20); Calcium,Total 8.7 mg/dL (8.5-10.1); Chloride 113 mmol/L (98-107); Creatinine, Serum 0.57 mg/dL (0.55-1.02); EST Glomerular Filtration Rate 107 mL/min (>60); Est Glom Filt Rate - Afr Amer 129 mL/min (>60); Estimated Creatinine Clearance 53.63 ml/min; Glucose 95 mg/dL (74-106); Potassium 3.8 mmol/L (3.5-5.1); Sodium Level 140 mmol/L (136-145)
--- NOTE | 2023-06-26 08:22 | PN_ITS ---
Subjective Subjective Patient was seen this morning for follow up, she is sitting up in bed eating breakfast, she relates pain is well controlled, no complaints of f/c/n/v or any other complaints at this time. Objective Data Objective Data Vital Signs: Vital Signs Temp Pulse Resp BP Pulse Ox O2 Del Method O2 Flow Rate 97.5 F L 77 16 102/50 L 95 Room Air 2 06/26/23 03:12 06/26/23 03:12 06/26/23 03:12 06/26/23 03:12 06/26/23 03:12 06/26/23 03:12 06/24/23 15:25 Oxygen Flow Rate (L/min) 2 Oxygen Delivery Method Room Air Weight: 73.3 kg Body Mass Index (BMI) 26.0 Intake & Output: Intake and Output for Last 24 Hours 06/24/23 06/25/23 06/26/23 23:59 23:59 23:59 Intake Total 1067.25 / 1417.25 1362.75 / 1362.75 150 / 150 Output Total 200 / 200 Balance 1067.25 / 1417.25 1362.75 / 1362.75 -50 / -50 Lab / Micro Data 06/26/23 05:55 06/26/23 05:55 Labs: Laboratory Results - last 24 hr 06/25/23 07:35: WBC 8.7, RBC 3.71 L, Hgb 12.1, Hct 38.0, MCV 102.4 H, MCH 32.6 H , MCHC 31.8 L, RDW Std Deviation 48.9 H, RDW Coeff of Robert 13.0, Plt Count 240, MPV 10.1, Vancomycin Trough 13.5 06/25/23 08:13: Sodium 139, Potassium 3.9, Chloride 111 H, Carbon Dioxide 25.0, Anion Gap 3 L, BUN 21 H, Creatinine 0.74, Estim Creat Clear Calc 53.63, Est GFR (MDRD) Af Amer 96, Est GFR (MDRD) Non-Af 80, BUN/Creatinine Ratio 28.5 H, Glucose 109 H, Calcium 8.8 06/26/23 05:55: WBC 6.5, RBC 3.48 L, Hgb 11.6 L, Hct 38.6, MCV 110.9 H D, MCH 33.3 H, MCHC 30.1 L D, RDW Std Deviation 53.0 H, RDW Coeff of Robert 13.0, Plt Count 213, MPV 9.5, Sodium 140, Potassium 3.8, Chloride 113 H, Carbon Dioxide 24.0, Anion Gap 3 L, BUN 18, Creatinine 0.57, Estim Creat Clear Calc 53.63, Est GFR (MDRD) Af Amer 129, Est GFR (MDRD) Non-Af 107, BUN/Creatinine Ratio 31.5 H, Glucose 95, Calcium 8.7 Micro: Microbiology 06/24/23 Unknown Bone - 2nd Toe Gram Stain - Final 06/24/23 Unknown Bone - 2nd Toe Gram Stain - Final 06/23/23 11:30 Wound - Toe Gram Stain - Final 06/23/23 11:30 Wound - Toe Wound Culture - Preliminary Coag Negative Staph Physical Exam Narrative Right foot - incision well coapted, sutures intact, there is some ecchymosis and edema c/w normal post op course, there is no dehiscense, no cellulitis, no visible abscess, no drainage, no fluctuance, no crepitus, no necrosis - site healing well. No evidence of ischemia, CFT < 2 seconds to all toes, no evidence of DVT to the LE. Left foot - incision well coapted 2nd toe, sutures intact, there is some ecchymosis and edema c/w normal post op course, there is no dehiscense, no visible abscess, no drainage, no fluctuance, no crepitus, no necrosis - site healing well. Cellulitis dorsal foot significantly imprved. No evidence of i schemia, CFT < 2 seconds to all toes, no evidence of DVT to the LE. Const alert, oriented x3 and no apparent distress Assessment & Plan Assessment/Plan (1) Toe osteomyelitis, left: (2) Polyneuropathy: (3) Diabetes mellitus: (4) Non-pressure chronic ulcer of other part of left foot with necrosis of bone: (5) Non-pressure chronic ulcer of other part of right foot with fat layer exposed: (6) Cellulitis of left lower limb: PLAN: Plan Patient has been admitted for left 2nd toe osteomyelitis and foot cellulitis, also chronic right foot wound to 1st MTPJ plantarly. Now s/p surgical intervention on 06/24/23 - feet doing wel ltoday. A culture has been obtained left 2nd toe ulceration and sent to microbiology - patient has been started on IV antibiotics Vanc and Zosyn. ID service has been consulted. Surgical cultures left 2nd toe have been obtained and results are pe nding. Reviewed LEAS from 05/23/23 and good arterial flow to bilateral foot. Wound care - betadine soln to incision sites, and gauze dressing changes daily - bilateral feet. Hospital Medicine has been consulted - appreciated assistance. DVT prophylaxis - SCDs, also patient is on eliquis D/C planning - recommend nursing facility placement for rehab.
[2023-06-26] MEDS: Aspirin E.C. 81 MG Tablet PO (08:47)
[2023-06-26] MEDS: Menthol/Lanolin/Calamine/Znox 113 GM Tube 1 APPLIC TOPICAL (08:47)
[2023-06-26] MEDS: Juven (unflavored) Packet 1 PACKET PO ×2 (08:47→17:46)
[2023-06-26 08:51] VITALS: BP 112/66; PULSE 84; RESP 18; TEMP 36.6; O2SAT 98
[2023-06-26 09:00] VITALS: PULSE 84; RESP 18; O2SAT 98
[2023-06-26] MEDS: lamoTRIgine 100 MG Tablet PO ×2 (10:19→22:27)
[2023-06-26] MEDS: APIXABAN 2.5 MG TABLET (WCH) PO ×2 (10:19→22:27)
[2023-06-26] MEDS: Famotidine 20 MG Tablet PO (10:19)
[2023-06-26] MEDS: Vancomycin HCl 750 MG in 0.9% Normal Saline (250mL Bag) 250 ML 250 MG IV ×2 (10:26→22:56)
[2023-06-26] MEDS: oxyCODONE 5 MG Tablet PO (11:36)
[2023-06-26] MEDS: Acetaminophen 325 MG Tablet 650 MG PO (11:36)
--- NOTE | 2023-06-26 13:20 | PN.HOSP_ITS ---
Reason for Visit Reason for Visit: Diagnoses Type 2 diabetes mellitus without complications (06/23/23) Polyneuropathy, unspecified (06/23/23) Atherosclerotic heart disease of [place] coronary artery without angina pectoris (06/23/23) Unspecified atrial fibrillation (06/23/23) Chronic systolic (congestive) heart failure (06/23/23) Cellulitis of left lower limb (06/23/23) Non-pressure chronic ulcer of other part of right foot with fat layer exposed (06/23/23) Non-pressure chronic ulcer of other part of left foot with necrosis of bone (06/23/23) Osteomyelitis, unspecified (06/23/23) Subjective Subjective No acute events overnight. Patient seen at bedside this morning. Laying comfortably in bed, conversing normally, no acute distress. Patient does report mild intermittent pain down both lower legs into the feet since yesterday. Does have history of peripheral neuropathy secondary to her diabetes, is not on any neuropathic pain agents that she is aware of. States the oxycodone as needed has been helpful for pain. Otherwise denies any other pain or discomfort. No other acute concerns at this time. Objective Data Objective Data Vital Signs: Vital Signs Temp Pulse Resp BP Pulse Ox O2 Del Method O2 Flow Rate 98 F 84 18 112/66 98 Room Air 2 06/26/23 08:51 06/26/23 09:00 06/26/23 09:00 06/26/23 08:51 06/26/23 09:00 06/26/23 09:00 06/24/23 15:25 Oxygen Flow Rate (L/min) 2 Oxygen Delivery Method Room Air Weight: 73.3 kg Body Mass Index (BMI) 26.0 Intake & Output: Intake and Output for Last 24 Hours 06/24/23 06/25/23 06/26/23 23:59 23:59 23:59 Intake Total 1067.25 / 1417.25 1362.75 / 1362.75 500 / 500 Output Total 400 / 400 Balance 1067.25 / 1417.25 1362.75 / 1362.75 100 / 100 Lab / Micro Data 06/26/23 05:55 06/26/23 05:55 Labs: Laboratory Results - last 24 hr 06/26/23 05:55: WBC 6.5, RBC 3.48 L, Hgb 11.6 L, Hct 38.6, MCV 110.9 H D, MCH 33.3 H, MCHC 30.1 L D, RDW Std Deviation 53.0 H, RDW Coeff of Robert 13.0, Plt Count 213, MPV 9.5, Sodium 140, Potassium 3.8, Chloride 113 H, Carbon Dioxide 24.0, Anion Gap 3 L, BUN 18, Creatinine 0.57, Estim Creat Clear Calc 53.63, Est GFR (MDRD) Af Amer 129, Est GFR (MDRD) Non-Af 107, BUN/Creatinine Ratio 31.5 H, Glucose 95, Calcium 8.7 Micro: Microbiology 06/24/23 Unknown Bone - 2nd Toe Gram Stain - Final 06/24/23 Unknown Bone - 2nd Toe Wound Culture - Preliminary Coag Negative Staph 06/24/23 Unknown Bone - 2nd Toe Gram Stain - Final 06/24/23 Unknown Bone - 2nd Toe Wound Culture - Preliminary Coag Negative Staph 06/23/23 11:30 Wound - Toe Gram Stain - Final 06/23/23 11:30 Wound - Toe Wound Culture - Final Staphylococcus lugdunensis Physical Exam Const alert, oriented x3, no apparent distress and average body habitus Constitutional Narrative: Pleasant elderly female, laying comfortably in bed, conversing normally, no acute distress. General Appearance: cooperative and comfortable HEENT normocephalic, head/scalp atraumatic, hearing grossly normal bilaterally, nasal mucous membranes and turbinates normal and moist oral mucous membranes Eyes PERRL, EOMs intact bilaterally and conjunctivae normal Neck full ROM, no lymphadenopathy and supple Lymph Lymphatic: no lymphadenopathy noted Chest inspection of chest normal Resp normal respiratory effort, normal air movement, no use of accessory muscles and clear to auscultation bilaterally Cardio regular rate, regular rhythm, no murmurs and peripheral pulses 2+ throughout GI normal to inspection, nondistended, normoactive bowel sounds, soft to palpation, non-tender and non-distended Back/Spine normal ROM Extremity full ROM and no pedal edema Extremity Narrative: Both feet wrapped in Jorge wrap down to the toes, no gross abnormalities noted on visual exam. Neuro no focal motor deficits and no sensory deficits noted Speech: speech normal Psych mental status grossly normal Assessment & Plan Assessment/Plan (1) Toe osteomyelitis, left: (2) Chronic systolic congestive heart failure: (3) Atrial fibrillation: (4) Coronary artery disease: PLAN: Plan Patient is an 82-year-old female who presented [facility] on 06/23/2023 as a direct admission from the [employer] office for concern for left second toe osteomyelitis. Medicine consulted for medical management. 1. Suspected left second toe osteomyelitis Follows with Dr. Hernandes. Hemodynamically stable, afebrile, WBC count normal on admit. CRP 5.9, ESR normal. Left foot x-ray shows moderate degenerative arthrosis but no evidence of osteomyelitis. MRI left foot 06/23 showed skin ulceration along dorsum of second toe concerning for mild reactive marrow edema versus osteomyelitis. Notably had prior cultures that grew Pseudomonas. ? Podiatry primary. Infectious disease following. S/p debridement of ulcer to and including bone with arthroplasty of left second toe on 06/24. Intraoperative cultures pending. Continue vancomycin and Zosyn for now per ID recommendations. PT/OT/case management following. Planning for SNF on discharge given her functional limitations with only partial weightbearing status on both feet. Okay to restart Eliquis on evening of 06/25 per podiatry recommendations. Pain management with scheduled Tylenol, oxycodone as needed, IV Dilaudid as needed for breakthrough pain. Continue home duloxetine, initiated gabapentin 100 mg 3 times daily on 06/26. 2. Right first metatarsophalangeal joint ulcer with bunion deformity ? Podiatry primary as noted above. S/p simple bunionectomy with debridement of ulcer to and including subcutaneous tissue on 06/24. Weightbearing recommendations per podiatry. PT/OT/case management following as above. 3. HFrEF, aortic stenosis, history of nonobstructive CAD Follows with cardiology, last office visit on 05/23/2023. Please see this office note for complete details. In short, most recent TTE in 10/2022 showed EF 25%, severe global LV dysfunction, mild concentric LV hypertrophy, mild to moderate aortic stenosis. Notably had left heart cath done in 05/2022 that showed multivessel nonobstructive CAD. Had TTE done in 05/2021 that showed EF 35%, otherwise similar findings to more recent echo. ? Patient hemodynamically stable on room air since admission. Tolerated procedure on 06/24 without issue. Continue home aspirin, otherwise holding all home medications for now, will restart as able. 4. Paroxysmal atrial fibrillation, recent history of LBBB ? Normal sinus rhythm since admission. Continue cardiac monitoring. Eliquis restarted on 06/25 as noted above. Holding home Lopressor and diltiazem, will restart when able. 5. Hypertension ? Holding home Lasix, diltiazem, Lopressor, losartan, spironolactone for now, will restart when able. 6. Seizure disorder ? Continue home lamotrigine. 7. GERD ? Continue home PPI. 8. Chronic neuropathy ? Continue home duloxetine. DVT prophylaxis: SCDs CODE STATUS: Full code, unverified Expected disposition: SNF, 1-2 days Total clinical time spent by myself addressing the patient's medical issues, reviewing all the data, and collaborating with patient's care team: 35 minutes. Charges/Coding Visit Charges Inpatient E&M: 90755 Subs Hosp L2
[2023-06-26] MEDS: Gabapentin 100 MG Capsule PO ×2 (13:28→17:45)
[2023-06-26] MEDS: Acetaminophen 500 MG Tablet 1000 MG PO ×2 (14:48→22:27)
[2023-06-26 15:00] VITALS: BP 105/57; PULSE 78; RESP 18; TEMP 36.6; O2SAT 98
[2023-06-26 15:30] VITALS: PULSE 78; RESP 18; O2SAT 98
[2023-06-26 19:41] VITALS: BP 119/73; PULSE 78; RESP 18; TEMP 36.6; O2SAT 97
[2023-06-26] MEDS: DULoxetine Hcl 30 MG Capsule PO (22:27)
[2023-06-26] MEDS: Donepezil HCl 10 MG Tablet PO (22:28)
[2023-06-26 22:49] LABS: Vancomycin, Trough Level 15.9 ug/mL (5.0-15.0)
--- NOTE | 2023-06-26 23:02 | PCM.RX.CS ---
Consult Antibiotic Management Pharmacy has been consulted to manage selected antibiotic: Vancomycin Type of Intervention Type of Consult: Follow-up Labs Labs: Sodium 140 mmol/L (136-145) 06/26/23 05:55 Potassium 3.8 mmol/L (3.5-5.1) 06/26/23 05:55 Chloride 113 mmol/L (98-107) H 06/26/23 05:55 Carbon Dioxide 24.0 mmol/L (21.0-32.0) 06/26/23 05:55 Anion Gap 3 (5-15) L 06/26/23 05:55 BUN 18 mg/dL (7-18) 06/26/23 05:55 Creatinine 0.57 mg/dL (0.55-1.02) 06/26/23 05:55 Est GFR (MDRD) Af Amer 129 mL/min (>60) 06/26/23 05:55 Est GFR (MDRD) Non-Af 107 mL/min (>60) 06/26/23 05:55 BUN/Creatinine Ratio 31.5 RATIO (10-20) H 06/26/23 05:55 Glucose 95 mg/dL (74-106) 06/26/23 05:55 Vancomycin Trough 15.9 ug/mL (5.0-15.0) H 06/26/23 21:29 Microbiology Microbiology: Microbiology 06/24/23 Unknown Bone - 2nd Toe Gram Stain - Final 06/24/23 Unknown Bone - 2nd Toe Wound Culture - Preliminary Coag Negative Staph 06/24/23 Unknown Bone - 2nd Toe Gram Stain - Final 06/24/23 Unknown Bone - 2nd Toe Wound Culture - Preliminary Coag Negative Staph 06/23/23 11:30 Wound - Toe Gram Stain - Final 06/23/23 11:30 Wound - Toe Wound Culture - Final Staphylococcus lugdunensis Goal Trough Goal Trough: 15-20 mcg/mL Pharmacy Plan for Drug Dosing Pharmacy Plan for Drug Dosing: Pharmacy Service will continue to monitor and adjust dosing as required. TROUGH 15.9 @ 11 HOURS. NO CHANGES, FOLLOW UP TROUGH IN 2 DAYS Follow-Up Labs Follow-Up Labs: Trough: Vancomycin Date/Time Labs Ordered Labs to be done on [date and time ordered]: 06/28 @ 5660
[2023-06-27] MEDS: Vancomycin Trough/Random Due 1 LAB MC (00:08)
[2023-06-27] MEDS: Menthol/Lanolin/Calamine/Znox 113 GM Tube 1 APPLIC TOPICAL ×3 (00:09→22:08)
[2023-06-27 02:48] VITALS: BP 123/68; PULSE 77; RESP 18; TEMP 36.4; O2SAT 96
[2023-06-27] MEDS: Acetaminophen 500 MG Tablet 1000 MG PO ×3 (06:22→22:07)
[2023-06-27] MEDS: Piperacil/Tazobactam 3.375 GM in 0.9% Normal Saline (50mL MB+) 50 ML IV (06:22)
--- NOTE | 2023-06-27 08:22 | WOUNDNOTE ---
wound photo: left foot
--- NOTE | 2023-06-27 08:23 | WOUNDNOTE ---
wound photo: right foot
--- NOTE | 2023-06-27 08:24 | WOUNDNOTE ---
skin photo: right foot
[2023-06-27] MEDS: Gabapentin 100 MG Capsule PO ×3 (08:49→18:10)
[2023-06-27] MEDS: Juven (unflavored) Packet 1 PACKET PO ×2 (08:50→18:09)
[2023-06-27] MEDS: Aspirin E.C. 81 MG Tablet PO (08:50)
[2023-06-27 08:57] VITALS: BP 126/64; PULSE 78; RESP 18; TEMP 36.9; O2SAT 96
[2023-06-27] MEDS: Famotidine 20 MG Tablet PO (09:00)
[2023-06-27] MEDS: lamoTRIgine 100 MG Tablet PO ×2 (09:00→22:07)
[2023-06-27 10:00] VITALS: RESP 18
--- NOTE | 2023-06-27 10:30 | CASEMGMT ---
Social Work SW spoke w/pt about going to a jail facility, she is agreeable but not certain where she would like to go. SW did provide SNF list created by [facility] assistant to pt. She would like to discuss w/her , SW to follow up w/pt for choices once she and are able to review the list and discuss. COLUMBA Odonnell
[2023-06-27] MEDS: Vancomycin HCl 750 MG in 0.9% Normal Saline (250mL Bag) 250 ML 250 MG IV (11:13)
[2023-06-27] MEDS: APIXABAN 2.5 MG TABLET (WCH) PO ×2 (11:14→22:07)
--- NOTE | 2023-06-27 11:36 | CM.UR ---
Social Work SW spoke w/pt in room in regard to discharge plan. Pt [facility]. SW provided to pt a list via [facility] [place] [facility] in network w/pt's insurance, in preferred geographic area and complete w/quality and resource use data. Pt wants to review the list w/her , SW will return this afternoon for choices. Pt did want TCU, however TCU is not able to take pt due to insurance, SW explained this to her, she states understanding. Plan: SNF, facility choices pending, SW to follow up this afternoon COLUMBA Odonnell
[2023-06-27] MEDS: Doxycycline 100 MG CAPSULE PO ×2 (12:53→22:07)
[2023-06-27] MEDS: Amox/Clavulanate 875 MG Tablet PO ×2 (12:53→22:08)
--- NOTE | 2023-06-27 13:21 | PN.HOSP_ITS ---
Reason for Visit Reason for Visit: Diagnoses Type 2 diabetes mellitus without complications (06/23/23) Polyneuropathy, unspecified (06/23/23) Atherosclerotic heart disease of [place] coronary artery without angina pectoris (06/23/23) Unspecified atrial fibrillation (06/23/23) Chronic systolic (congestive) heart failure (06/23/23) Cellulitis of left lower limb (06/23/23) Non-pressure chronic ulcer of other part of right foot with fat layer exposed (06/23/23) Non-pressure chronic ulcer of other part of left foot with necrosis of bone (06/23/23) Osteomyelitis, unspecified (06/23/23) Subjective Subjective No acute events overnight. Patient seen at bedside this morning. Sitting comfortably in bedside chair, conversing normally, no acute distress. Patient was able to get from bed to the bedside chair with assistance this morning without significant issue. She denies any significant pain in her feet this morning. Denies any fevers or chills. No other acute concerns at this time. Objective Data Objective Data Vital Signs: Vital Signs Temp Pulse Resp BP Pulse Ox O2 Del Method O2 Flow Rate 98.5 F 78 18 126/64 H 96 Room Air 2 06/27/23 08:57 06/27/23 08:57 06/27/23 10:00 06/27/23 08:57 06/27/23 08:57 06/27/23 10:00 06/24/23 15:25 Oxygen Flow Rate (L/min) 2 Oxygen Delivery Method Room Air Weight: 73.3 kg Body Mass Index (BMI) 26.0 Intake & Output: Intake and Output for Last 24 Hours 06/25/23 06/26/23 06/27/23 23:59 23:59 23:59 Intake Total 1362.75 / 1362.75 1424.00 / 1424.00 1580 / 1580 Output Total 700 / 700 300 / 300 Balance 1362.75 / 1362.75 724.00 / 724.00 1280 / 1280 Lab / Micro Data 06/26/23 05:55 06/26/23 05:55 Labs: Laboratory Results - last 24 hr 06/26/23 21:29: Vancomycin Trough 15.9 H Micro: Microbiology 06/24/23 Unknown Bone - 2nd Toe Gram Stain - Final 06/24/23 Unknown Bone - 2nd Toe Wound Culture - Final Staphylococcus lugdunensis 06/24/23 Unknown Bone - 2nd Toe Anaerobic Culture - Preliminary 06/24/23 Unknown Bone - 2nd Toe Gram Stain - Final 06/24/23 Unknown Bone - 2nd Toe Wound Culture - Final Staphylococcus lugdunensis 06/24/23 Unknown Bone - 2nd Toe Anaerobic Culture - Preliminary No growth in 48 hours. 06/23/23 11:30 Wound - Toe Gram Stain - Final 06/23/23 11:30 Wound - Toe Wound Culture - Final Staphylococcus lugdunensis Physical Exam Const alert, oriented x3, no apparent distress and average body habitus Constitutional Narrative: Pleasant elderly female, sitting comfortably in bedside chair, conversing normally, no acute distress. General Appearance: cooperative and comfortable HEENT normocephalic, head/scalp atraumatic, hearing grossly normal bilaterally, nasal mucous membranes and turbinates normal and moist oral mucous membranes Eyes PERRL, EOMs intact bilaterally and conjunctivae normal Neck full ROM, no lymphadenopathy and supple Lymph Lymphatic: no lymphadenopathy noted Chest inspection of chest normal Resp normal respiratory effort, normal air movement, no use of accessory muscles and clear to auscultation bilaterally Cardio regular rate, regular rhythm, no murmurs and peripheral pulses 2+ throughout GI normal to inspection, nondistended, normoactive bowel sounds, soft to palpation, non-tender and non-distended Back/Spine normal ROM Extremity full ROM and no pedal edema Extremity Narrative: Both feet wrapped in Jorge wrap down to the toes, no gross abnormalities noted on visual exam. Neuro no focal motor deficits and no sensory deficits noted Speech: speech normal Psych mental status grossly normal Assessment & Plan Assessment/Plan (1) Toe osteomyelitis, left: (2) Chronic systolic congestive heart failure: (3) Atrial fibrillation: (4) Coronary artery disease: PLAN: Plan Patient is an 82-year-old female who presented [facility] on 06/23/2023 as a direct admission from the [facility] office for concern for left second toe osteomyelitis. Medicine consulted for medical management. 1. Suspected left second toe osteomyelitis Follows with Dr. Hernandes. Hemodynamically stable, afebrile, WBC count normal on admit. CRP 5.9, ESR normal. Left foot x-ray shows moderate degenerative arthrosis but no evidence of osteomyelitis. MRI left foot 06/23 showed skin ul ceration along dorsum of second toe concerning for mild reactive marrow edema versus osteomyelitis. Notably had prior cultures that grew Pseudomonas. ? Podiatry primary. Infectious disease following. S/p debridement of ulcer to and including bone with arthroplasty of left second toe on 06/24. Intraoperative cultures grew MS-liza antunezis, narrowed to doxycycline and Unasyn on 06/27. Planning for 6-week course of p.o. doxycycline 100 mg twice daily, stop date 08/05/2023. PT/OT/case management following, planning for SNF on discharge given her functional limitations with only partial weightbearing status on both feet. Okay to restart Eliquis on evening of 06/25 per podiatry recommendations. Pain management with scheduled Tylenol, oxycodone as needed, IV Dilaudid as needed for breakthrough pain. Continue home duloxetine, initiated gabapentin 100 mg 3 times daily on 06/26. Medically stable for discharge on 06/27, awaiting placement. 2. Right first metatarsophalangeal joint ulcer with bunion deformity ? Podiatry primary as noted above. S/p simple bunionectomy with debridement of ulcer to and including subcutaneous tissue on 06/24. Weightbearing recommendations per podiatry. PT/OT/case management following as above. 3. HFrEF, aortic stenosis, history of nonobstructive CAD Follows with cardiology, last office visit on 05/23/2023. Please see this office note for complete details. In short, most recent TTE in 10/2022 showed EF 25%, severe global LV dysfunction, mild concentric LV hypertrophy, mild to moderate aortic stenosis. Notably had left heart cath done in 05/2022 that showed multivessel nonobstructive CAD. Had TTE done in 05/2021 that showed EF 35%, otherwise similar findings to more recent echo. ? Patient hemodynamically stable on room air since admission. Tolerated procedure on 06/24 without issue. Continue home aspirin, otherwise holding all home medications for now, will restart as able. 4. Paroxysmal atrial fibrillation, recent history of LBBB ? Normal sinus rhythm since admission. Continue cardiac monitoring. Eliquis restarted on 06/25 as noted above. Holding home Lopressor and diltiazem, will restart when able. 5. Hypertension ? Holding home Lasix, diltiazem, Lopressor, losartan, spironolactone for now, will restart when able. 6. Seizure disorder ? Continue home lamotrigine. 7. GERD ? Continue home PPI. 8. Chronic neuropathy ? Continue home duloxetine. DVT prophylaxis: SCDs CODE STATUS: Full code, unverified Expected disposition: SNF, medically ready for dc on 06/27, awaiting placement. Total clinical time spent by myself addressing the patient's medical issues, reviewing all the data, and collaborating with patient's care team: 25 minutes. Charges/Coding Visit Charges Inpatient E&M: 62097 Subs Hosp L1
--- NOTE | 2023-06-27 13:31 | PCM.PN.ID ---
ID ID: Route of nutrition/ use of supplements: [] Nutritional Intake: [] IV Site: [] [place] Catheter: [] Assessment & Plan Assessment/Plan (1) Toe osteomyelitis, left: PLAN: OR 06/[address] Hernandes for I&D. Surg cx and wound cx with Pedro mckinney. Will narrow to doxy/unasyn. Plan on 6 weeks po doxy 100mg bid, stop date 08/05/23. Will follow, d/w pillowcase cleaner (2) Polyneuropathy:
[2023-06-27 15:29] VITALS: BP 98/49; PULSE 75; RESP 18; TEMP 37.1; O2SAT 98
[2023-06-27 15:34] VITALS: RESP 18
--- NOTE | 2023-06-27 18:14 | PCM.PROGNOTE ---
Objective Data Objective Data Vital Signs: Vital Signs Temp Pulse Resp BP Pulse Ox O2 Del Method O2 Flow Rate 98.7 F 75 18 98/49 L 98 Room Air 2 06/27/23 15:29 06/27/23 15:29 06/27/23 15:34 06/27/23 15:29 06/27/23 15:29 06/27/23 15:34 06/24/23 15:25 Oxygen Flow Rate (L/min) 2 Oxygen Delivery Method Room Air Weight: 73.3 kg Body Mass Index (BMI) 26.0 Intake & Output: Intake and Output for Last 24 Hours 06/25/23 06/26/23 06/27/23 23:59 23:59 23:59 Intake Total 1362.75 / 1362.75 1424.00 / 1424.00 2330 / 2330 Output Total 700 / 700 700 / 700 Balance 1362.75 / 1362.75 724.00 / 724.00 1630 / 1630 Lab / Micro Data 06/26/23 05:55 06/26/23 05:55 Labs: Laboratory Results - last 24 hr 06/26/23 21:29: Vancomycin Trough 15.9 H Micro: Microbiology 06/24/23 Unknown Bone - 2nd Toe Gram Stain - Final 06/24/23 Unknown Bone - 2nd Toe Wound Culture - Final Staphylococcus lugdunensis 06/24/23 Unknown Bone - 2nd Toe Anaerobic Culture - Preliminary 06/24/23 Unknown Bone - 2nd Toe Gram Stain - Final 06/24/23 Unknown Bone - 2nd Toe Wound Culture - Final Staphylococcus lugdunensis 06/24/23 Unknown Bone - 2nd Toe Anaerobic Culture - Preliminary No growth in 48 hours. 06/23/23 11:30 Wound - Toe Gram Stain - Final 06/23/23 11:30 Wound - Toe Wound Culture - Final Staphylococcus lugdunensis Physical Exam Narrative Right foot - incision well coapted, sutures intact, there is some ecchymosis and edema c/w normal post op course, there is no dehiscense, no cellulitis, no visible abscess, no drainage, no fluctuance, no crepitus, no necrosis - site healing well. No evidence of ischemia, CFT < 2 seconds to all toes, no evidence of DVT to the LE. Left foot - incision well coapted 2nd toe, sutures intact, there is some ecchymosis and edema c/w normal post op course, there is no dehiscense, no visible abscess, no drainage, no fluctuance, no crepitus, no necrosis - site healing well. Cellulitis dorsal foot significantly imprved. No evidence of ischemia, CFT < 2 seconds to all toes, no evidence of DVT to the LE. Const alert, oriented x3 and no apparent distress Assessment & Plan Assessment/Plan (1) Toe osteomyelitis, left: (2) Polyneuropathy: (3) Diabetes mellitus: (4) Non-pressure chronic ulcer of other part of left foot with necrosis of bone: (5) Non-pressure chronic ulcer of other part of right foot with fat layer exposed: (6) Cellulitis of left lower limb: PLAN: Plan Patient has been admitted for left 2nd toe osteomyelitis and foot cellulitis, also chronic right foot wound to 1st MTPJ plantarly. Now s/p surgical intervention on 06/24/23 - feet doing wel ltoday. A culture has been obtained left 2nd toe ulceration and sent to microbiology - patient is on antibiotics. ID service on consult. Reviewed LEAS from 05/23/23 and good arterial flow to bilateral foot. Wound care - betadine soln to incision sites, and gauze dressing changes daily - bilateral feet. Hospital Medicine has been consulted - appreciated assistance. DVT prophylaxis - SCDs, also patient is on eliquis D/C planning - recommend nursing facility placement for rehab.
[2023-06-27 20:41] VITALS: BP 116/59; PULSE 91; RESP 16; TEMP 36.4; O2SAT 100
[2023-06-27] MEDS: DULoxetine Hcl 30 MG Capsule PO (22:07)
[2023-06-27] MEDS: Donepezil HCl 10 MG Tablet PO (22:08)
[2023-06-28] VITALS (7 sets, daily range): BP systolic 106–144; BP diastolic 51–92; PULSE 67–101; RESP 16–18; TEMP 36.5–37; O2SAT 96–98
[2023-06-28] MEDS: oxyCODONE 5 MG Tablet PO ×2 (00:21→05:35)
[2023-06-28] MEDS: Acetaminophen 500 MG Tablet 1000 MG PO ×3 (05:35→21:24)
[2023-06-28] MEDS: Aspirin E.C. 81 MG Tablet PO (08:42)
[2023-06-28] MEDS: Juven (unflavored) Packet 1 PACKET PO ×2 (08:42→16:52)
[2023-06-28] MEDS: Gabapentin 100 MG Capsule PO ×3 (08:43→16:51)
--- NOTE | 2023-06-28 08:57 | CASEMGMT ---
Social Work SW spoke w/pt, she would like referral sent to [facility]. Coleen, d/c university administrative assistant will send it today. SW did let pt know that if they cannot accept her we will need additional choices. Pt states understanding. SW will continue to follow. COLUMBA Odonnell
--- NOTE | 2023-06-28 09:16 | CASEMGMT ---
Addendum entered by Coleen Dotson 06/28/23 09:49: [facility] has accepted and will submit precert. SW updated. Coleen Dotson, Discharge Planning Asst. Original Note: Discharge Planning Referral sent via [facility] to [facility]. Coleen Dotson, Discharge Planning Asst.
--- NOTE | 2023-06-28 09:57 | PCM.PN.ID ---
Physical Exam Narrative Feeling better, no fever, no n/v/d, no pain in foot Const alert and no apparent distress General Appearance: cooperative Resp normal air movement and clear to auscultation bilaterally Cardio regular rate and regular rhythm GI soft to palpation, non-tender and non-distended Skin Skin Narrative: feet wrapped ID ID: Route of nutrition/ use of supplements: [] Nutritional Intake: [] IV Site: [] [place] Catheter: [] Assessment & Plan Assessment/Plan (1) Toe osteomyelitis, left: PLAN: OR 06/24/[address] Hernandes for I&D. Surg cx and wound cx with Pedro mckinney. On doxy/unasyn. Plan on 6 weeks po doxy 100mg bid, stop date 08/05/23. Will follow, ID followup in 3 weeks. (2) Polyneuropathy:
[2023-06-28] MEDS: Amox/Clavulanate 875 MG Tablet PO ×2 (10:56→21:25)
[2023-06-28] MEDS: Doxycycline 100 MG CAPSULE PO ×2 (10:56→21:24)
[2023-06-28] MEDS: Famotidine 20 MG Tablet PO (10:56)
[2023-06-28] MEDS: APIXABAN 2.5 MG TABLET (WCH) PO ×2 (10:56→21:24)
[2023-06-28] MEDS: lamoTRIgine 100 MG Tablet PO ×2 (10:56→21:24)
[2023-06-28] MEDS: Menthol/Lanolin/Calamine/Znox 113 GM Tube 1 APPLIC TOPICAL ×2 (10:56→21:25)
--- NOTE | 2023-06-28 12:17 | PCM.PN.HOSP ---
Reason for Visit Reason for Visit: Diagnoses Type 2 diabetes mellitus without complications (06/23/23) Polyneuropathy, unspecified (06/23/23) Atherosclerotic heart disease of [place] coronary artery without angina pectoris (06/23/23) Unspecified atrial fibrillation (06/23/23) Chronic systolic (congestive) heart failure (06/23/23) Cellulitis of left lower limb (06/23/23) Non-pressure chronic ulcer of other part of right foot with fat layer exposed (06/23/23) Non-pressure chronic ulcer of other part of left foot with necrosis of bone (06/23/23) Osteomyelitis, unspecified (06/23/23) Subjective Subjective No acute events overnight. Patient seen at bedside this morning. Patient was seen while her foot dressings were being removed to examine her wounds. Incisions on both feet appear to be healing well. Did have significant bruising on both feet, as expected. Patient denied any significant foot pain at this time. Denied any other acute concerns today. Objective Data Objective Data Vital Signs: Vital Signs Temp Pulse Resp BP Pulse Ox O2 Del Method O2 Flow Rate 98.5 F 74 18 106/72 98 Room Air 2 06/28/23 08:00 06/28/23 08:00 06/28/23 08:00 06/28/23 08:00 06/28/23 08:00 06/28/23 08:00 06/24/23 15:25 Oxygen Flow Rate (L/min) 2 Oxygen Delivery Method Room Air Weight: 73.3 kg Body Mass Index (BMI) 26.0 Intake & Output: Intake and Output for Last 24 Hours 06/26/23 06/27/23 06/28/23 23:59 23:59 23:59 Intake Total 1424.00 / 1424.00 3030 / 3030 300 / 300 Output Total 700 / 700 700 / 700 Balance 724.00 / 724.00 2330 / 2330 300 / 300 Lab / Micro Data 06/26/23 05:55 06/26/23 05:55 Micro: Microbiology 06/24/23 Unknown Bone - 2nd Toe Gram Stain - Final 06/24/23 Unknown Bone - 2nd Toe Wound Culture - Final Staphylococcus lugdunensis 06/24/23 Unknown Bone - 2nd Toe Anaerobic Culture - Preliminary 06/24/23 Unknown Bone - 2nd Toe Gram Stain - Final 06/24/23 Unknown Bone - 2nd Toe Wound Culture - Final Staphylococcus lugdunensis 06/24/23 Unknown Bone - 2nd Toe Anaerobic Culture - Preliminary No growth in 48 hours. 06/23/23 11:30 Wound - Toe Gram Stain - Final 06/23/23 11:30 Wound - Toe Wound Culture - Final Staphylococcus lugdunensis Physical Exam Const alert, oriented x3, no apparent distress and average body habitus Constitutional Narrative: Pleasant elderly female, sitting up comfortably in bed, conversing normally, no acute distress. General Appearance: cooperative and comfortable HEENT normocephalic, head/scalp atraumatic, hearing grossly normal bilaterally, nasal mucous membranes and turbinates normal and moist oral mucous membranes Eyes PERRL, EOMs intact bilaterally and conjunctivae normal Neck full ROM, no lymphadenopathy and supple Lymph Lymphatic: no lymphadenopathy noted Chest inspection of chest normal Resp normal respiratory effort, normal air movement, no use of accessory muscles and clear to auscultation bilaterally Cardio regular rate, regular rhythm, no murmurs and peripheral pulses 2+ throughout GI normal to inspection, nondistended, normoactive bowel sounds, soft to palpation, non-tender and non-distended Back/Spine normal ROM Extremity full ROM and no pedal edema Extremity Narrative: Feet examined this morning during dressing change, incisions appear to be healing well, significant bruising noted as expected. Neuro no focal motor deficits and no sensory deficits noted Speech: speech normal Psych mental status grossly normal Assessment & Plan Assessment/Plan (1) Toe osteomyelitis, left: (2) Chronic systolic congestive heart failure: (3) Atrial fibrillation: (4) Coronary artery disease: PLAN: Plan Patient is an 82-year-old female who presented [facility] on 06/23/2023 as a direct admission from the delivery mgr office for concern for left second toe osteomyelitis. Medicine consulted for medical management. 1. Suspected left second toe osteomyelitis Follows with Dr. Hernandes. Hemodynamically stable, afebrile, WBC count normal on admit. CRP 5.9, ESR normal. Left foot x-ray shows moderate degenerative arthrosis but no evidence of osteomyelitis. MRI left foot 06/23 showed skin ulceration along dorsum of second toe concerning for mild reactive marrow edema versus osteomyelitis. Notably had prior cultures that grew Pseudomonas. S/p debridement of ulcer to and including bone with arthroplasty of left second toe on 06/24. Intraoperative cultures grew MS-staph lugdunensis. ? Podiatry primary. Infectious disease following. Narrowed to doxycycline and Unasyn on 06/27. Planning for 6-week course of p.o. doxycycline 100 mg twice daily on discharge, stop date 08/05/2023. PT/OT/case management following, planning for SNF on discharge given her functional limitations with only partial weightbearing status on both feet. Medically stable for discharge on 06/27, awaiting placement. 2. Right first metatarsophalangeal joint ulcer with bunion deformity ? Podiatry primary as noted above. S/p simple bunionectomy with debridement of ulcer to and including subcutaneous tissue on 06/24. Weightbearing recommendations per podiatry. PT/OT/case management following as above. 3. HFrEF, aortic stenosis, history of nonobstructive CAD Follows with cardiology, last office visit on 05/23/2023. Please see this office note for complete details. In short, most recent TTE in 10/2022 showed EF 25%, severe global LV dysfunction, mild concentric LV hypertrophy, mild to moderate aortic stenosis. Notably had left heart cath done in 05/2022 that showed multivessel nonobstructive CAD. Had TTE done in 05/2021 that showed EF 35%, otherwise similar findings to more recent echo. ? Patient hemodynamically stable on room air since admission. Tolerated procedure on 06/24 without issue. Continue home aspirin. Home diltiazem, Lopressor, losartan, Lasix restarted on 06/28. Monitor. 4. Paroxysmal atrial fibrillation, recent history of LBBB ? Normal sinus rhythm since admission. Continue cardiac monitoring. Eliquis restarted on 06/25 as noted above. Home Lopressor and diltiazem restarted as noted above. 5. Hypertension ? Home meds restarted on 06/28 as noted above. 6. Seizure disorder ? Continue home lamotrigine. 7. GERD ? Continue home PPI. 8. Chronic neuropathy ? Continue home duloxetine. DVT prophylaxis: SCDs CODE STATUS: Full code, unverified Expected disposition: SNF, medically ready for dc on 06/27, awaiting placement Total clinical time spent by myself addressing the patient's medical issues, reviewing all the data, and collaborating with patient's care team: 25 minutes. Charges/Coding Visit Charges Inpatient E&M: 46177 Subs Hosp L1
--- NOTE | 2023-06-28 12:19 | CASEMGMT ---
Social Work SW did let pt know that [facility] accepted pt and started precert. Pt states understanding. COLUMBA Odonnell
--- NOTE | 2023-06-28 14:26 | CHAPLAIN ---
Type of Pastoral Visit _x__ Initial Visit ___ Follow-up Visit ___ On-call Visit ___ General Patient Visit ___ Spiritual Assessment ___ Family Conference ___ Bereavement ___ Rapid Response ___ Code Blue ___ Other (describe below) Pastoral Care Referral From _x__ Patient ___ Family ___ Nurse ___ Physician ___ Chief Operator Reformer ___ Dye Range Operator Cloth ___ Other (describe below) Sacrament/Intervention _x__ Active listening ___ Anointing ___ Yazidism ___ Bereavement ___ Communion ___ Myla exploration ___ ___ Life review _x__ Prayer ___ Reconciliation ___ Sacrament of Sick _x__ Supportive presence ___ Wedding ___ Other (describe below) Pastoral Comments patient has been seen before in previous admissions and she admits that remembering that; however pt is unclear about details and some of that recent past; pt is aware of why she has been in the hospital this time and where she might be going for rehab; pt is pleasant and welcoming of the company and emotional support; pt refers to the ability to look outside from her window and enjoy the jaja and the clouds; pt welcomes a prayer and expresses thankfulness for the time given;
[2023-06-28] MEDS: dilTIAZem CD 120 MG Capsule PO (16:52)
--- NOTE | 2023-06-28 17:19 | PCM.PROGNOTE ---
Subjective Subjective Patient was seen today for follow up on bilateral feet. She is sitting up in chair with feet up ready to eat dinner. She is ready to go to nursing facility. She denies f/c/n/v/sob/cp/calf pain. Objective Data Objective Data Vital Signs: Vital Signs Temp Pulse Resp BP Pulse Ox O2 Del Method O2 Flow Rate 98.2 F 101 H 16 144/92 H 97 Room Air 2 06/28/23 13:07 06/28/23 13:07 06/28/23 13:07 06/28/23 13:07 06/28/23 13:11 06/28/23 13:11 06/24/23 15:25 Oxygen Flow Rate (L/min) 2 Oxygen Delivery Method Room Air Weight: 73.3 kg Body Mass Index (BMI) 26.0 Intake & Output: Intake and Output for Last 24 Hours 06/26/23 06/27/23 06/28/23 23:59 23:59 23:59 Intake Total 1424.00 / 1424.00 3030 / 3030 850 / 850 Output Total 700 / 700 700 / 700 Balance 724.00 / 724.00 2330 / 2330 850 / 850 Lab / Micro Data 06/26/23 05:55 06/26/23 05:55 Micro: Microbiology 06/24/23 Unknown Bone - 2nd Toe Gram Stain - Final 06/24/23 Unknown Bone - 2nd Toe Wound Culture - Final Staphylococcus lugdunensis 06/24/23 Unknown Bone - 2nd Toe Anaerobic Culture - Preliminary 06/24/23 Unknown Bone - 2nd Toe Gram Stain - Final 06/24/23 Unknown Bone - 2nd Toe Wound Culture - Final Staphylococcus lugdunensis 06/24/23 Unknown Bone - 2nd Toe Anaerobic Culture - Preliminary No growth in 48 hours. 06/23/23 11:30 Wound - Toe Gram Stain - Final 06/23/23 11:30 Wound - Toe Wound Culture - Final Staphylococcus lugdunensis Physical Exam Narrative Calf soft and supple and no calf edema bilateral. No pain to calf bilateral. Dressings bilateral feet are clean, dry and intact. Const alert, oriented x3 and no apparent distress Assessment & Plan Assessment/Plan (1) Toe osteomyelitis, left: (2) Polyneuropathy: (3) Diabetes mellitus: (4) Non-pressure chronic ulcer of other part of left foot with necrosis of bone: (5) Non-pressure chronic ulcer of other part of right foot with fat layer exposed: (6) Cellulitis of left lower limb: PLAN: Plan Patient has been admitted for left 2nd toe osteomyelitis and foot cellulitis, also chronic right foot wound to 1st MTPJ plantarly. Now s/p surgical intervention on 06/24/23 - feet doing wel ltoday. A culture has been obtained left 2nd toe ulceration and sent to microbiology - patient is on antibiotics. ID service on consult. Oral Doxycycline for 6 weeks. Reviewed LEAS from 05/23/23 and good arterial flow to bilateral foot. Wound care - betadine soln to incision sites, and gauze dressing changes daily - bilateral feet. Hospital Medicine has been consulted - appreciated assistance. DVT prophylaxis - Patient is on eliquis D/C planning - recommend nursing facility placement for rehab.
[2023-06-28] MEDS: Donepezil HCl 10 MG Tablet PO (21:25)
[2023-06-28] MEDS: Losartan Potassium 25 MG Tablet PO (21:25)
[2023-06-28] MEDS: DULoxetine Hcl 30 MG Capsule PO (21:25)
[2023-06-29 03:24] VITALS: BP 119/46; PULSE 71; RESP 16; TEMP 36.4; O2SAT 96
[2023-06-29] MEDS: Acetaminophen 500 MG Tablet 1000 MG PO ×2 (06:04→14:35)
[2023-06-29 07:48] VITALS: BP 122/81; PULSE 84; RESP 18; TEMP 36.5; O2SAT 97
[2023-06-29] MEDS: Juven (unflavored) Packet 1 PACKET PO ×2 (07:56→18:12)
[2023-06-29] MEDS: Aspirin E.C. 81 MG Tablet PO (07:56)
[2023-06-29] MEDS: Gabapentin 100 MG Capsule PO ×3 (07:59→18:09)
--- NOTE | 2023-06-29 08:16 | CASEMGMT ---
Discharge Planning W has obtained precert. SW updated. Coleen Dotson, Discharge Planning Asst.
[2023-06-29] MEDS: Doxycycline 100 MG CAPSULE PO (09:44)
[2023-06-29] MEDS: Furosemide 40 MG Tablet PO (09:45)
[2023-06-29] MEDS: APIXABAN 2.5 MG TABLET (WCH) PO (09:45)
[2023-06-29] MEDS: Amox/Clavulanate 875 MG Tablet PO (09:45)
[2023-06-29] MEDS: lamoTRIgine 100 MG Tablet PO (09:45)
[2023-06-29] MEDS: Famotidine 20 MG Tablet 40 MG PO (09:45)
[2023-06-29] MEDS: Menthol/Lanolin/Calamine/Znox 113 GM Tube 1 APPLIC TOPICAL (09:46)
--- NOTE | 2023-06-29 09:52 | CASEMGMT ---
Addendum entered by Haylee Kelly 06/29/23 11:43: Social Work Per physician, pt is ready for dc today. Physican to come after office hours to complete med list. 7000 exemption form completed in [facility]. DC operator/assistant foreman updated and to complete dc. Disposition: [facility], skilled level of care under convalescent stay KEMAR Moore Original Note: Social Work Precert has been obtained for pt to go to [facility]. Physician notified. WILMAN met with pt and updated that [facility] has accepted and insurance has approved. Discharge date is now up to physician. left with pt's spouse to update. Plan: [facility], when medically ready KEMAR Moore
[2023-06-29 10:53] VITALS: BP 109/50; PULSE 79
--- NOTE | 2023-06-29 11:07 | PCM.TXEXTCAR ---
Diet Diet Order/Speech Therapy: 06/27/23 12:08 Diet: Consistent Carb - Calorie Controlled Dietary Modifications:: No Added Salt Is pt able to select menu?: Yes How many daily calories?: 1800 calorie Wound(s) right plantar foot: Wound Type: Neuropathic/Diabetic Foot Ulcer Dressing Change: betadine with dry dressing left 2nd toe: Wound Type: Surgical Incision Dressing Change: betadine/Adaptic (Betadine soln, adaptic, gauze, kerlix and mac dressing changes daily) LEFT FOOT: Wound Type: Surgical Incision RIGHT FOOT: Wound Type: Surgical Incision Dressing Change: betadine/Adaptic (Betadine soln, adaptic, gauze, kerlix and mac dressing changes daily) rt foot: Wound Type: Surgical Incision Therapies Weight Bearing: Partial weight bearing (Ok to weightbear to heel bilateral) Problem/Diagnosis (1) Toe osteomyelitis, left: Status: Acute Code(s): M86.9 - Osteomyelitis, unspecified (2) Polyneuropathy: Status: Acute Code(s): G62.9 - Polyneuropathy, unspecified (3) Diabetes mellitus: Status: Acute Code(s): E11.9 - Type 2 diabetes mellitus without complications (4) Non-pressure chronic ulcer of other part of left foot with necrosis of bone: Status: Chronic Code(s): L97.524 - Non-pressure chronic ulcer of other part of left foot with necrosis of bone (5) Non-pressure chronic ulcer of other part of right foot with fat layer exposed: Status: Chronic Code(s): L97.512 - Non-pressure chronic ulcer of other part of right foot with fat layer exposed (6) Cellulitis of left lower limb: Status: Acute Code(s): L03.116 - Cellulitis of left lower limb Plan Patient has been admitted for left 2nd toe osteomyelitis and foot cellulitis, also chronic right foot wound to 1st MTPJ plantarly. Now s/p surgical intervention on 06/24/23 - feet doing wel ltoday. A culture has been obtained left 2nd toe ulceration and sent to microbiology - patient is on antibiotics. ID service on consult. Oral Doxycycline for 6 weeks. Reviewed LEAS from 05/23/23 and good arterial flow to bilateral foot. Wound care - betadine soln to incision sites, and gauze dressing changes daily - bilateral feet. Hospital Medicine has been consulted - appreciated assistance. DVT prophylaxis - Patient is on eliquis D/C planning - recommend nursing facility placement for rehab. Allergies/Procedures Done in Hospital Allergies levetiracetam Allergy (Verified 06/23/23 11:37) Other unsure nickel Allergy (Verified 06/23/23 11:37) Rash sulfamethoxazole [From Bactrim] Allergy (Verified 05/23/23 13:02) Itching trimethoprim [From Bactrim] Allergy (Verified 05/23/23 13:02) Itching codeine Adverse Reaction (Verified 05/23/23 13:02) Nausea milk Adverse Reaction (Verified 06/23/23 11:37) Nausea/Vom/Diarrhea only glass of milk - milk by itself ok with milk in food. Type of Care/Length of Stay Estimated LOS: Convalescent Care Less Than 30 days Type of Care Needed: Skilled Rehab Potential: Good Prognosis: Good Additional Orders/Day of Discharge Day of Discharge: 06/29/23 Dietary and Speech Recommendations Dietitian Recommendations/Changes: Will change diet to 1800CCD, RASHEED diet to manage medical conditions. Continue Deny BID to promote wound healing. Follow Up Care Please follow up with your Primary Care Physician in: 1 week Please Follow Up With: Blu Hernandes DPM When: 1 week, sooner if needed Discharge Plan Admission Admit Date/Time: 06/23/23 12:02 Attending Provider: Blu Hernandes Primary Care Provider: Nahomy Bettencourt Consulting Providers: Mack Tierney; Rob Young Discharge Orders/Prescriptions Prescriptions: New doxycycline monohydrate 100 mg Capsule 100 mg PO BID 38 Days Qty: 76 0RF Continued duloxetine 30 mg capsule,delayed release(DR/EC) 30 mg PO QHS famotidine 40 mg tablet 20 mg PO BID cyanocobalamin (vitamin B-12) [Vitamin B-12] 1,000 mcg tablet 1,000 mcg PO DAILY furosemide 40 mg tablet 40 mg PO DAILY Rx Instructions: AM potassium chloride [Klor-Con M20] 20 mEq tablet,ER particles/crystals 20 meq PO DAILY Eliquis 2.5 mg tablet 2.5 mg PO BID Qty: 180 3RF donepezil 10 mg tablet 10 mg PO QHS Qty: 90 1RF lamotrigine 100 mg tablet 100 mg PO BID Qty: 180 1RF diltiazem HCl [Cartia XT] 120 mg capsule,extended release 24hr 120 mg PO DINNER nitroglycerin 0.4 mg Tablet, Sublingual 0.4 mg sublingual Q5M PRN (Reason: Cardiac/Chest Pain) Qty: 0 0RF cholecalciferol (vitamin D3) [Vitamin D3] 25 mcg (1,000 unit) tablet 50 mcg PO DAILY oxycodone 5 mg Tablet 5 mg PO Q4H PRN PRN (Reason: Pain Score 6-10) 7 Days Qty: 28 0RF spironolactone 25 mg tablet 25 mg PO QHS losartan 25 mg tablet 25 mg PO QHS Patient Comments: take 1 tablet by mouth once daily aspirin [Adult Low Dose Aspirin] 81 mg tablet,delayed release (DR/EC) 81 mg PO DAILY metoprolol succinate 25 mg tablet extended release 24 hr 25 mg PO DAILY Patient Comments: take 1 tablet by mouth once daily Referrals / Follow Up: Nahomy Bettencourt MD [Primary Care Provider] - Disposition Disposition (needs filled in before D/C Order can be placed): Nursing Home Facility (3) Diabetes mellitus Qualifiers: Diabetes mellitus complication detail: with other skin complication Diabetes mellitus type: type 2
--- NOTE | 2023-06-29 11:11 | PCM.DC.SUM ---
Providers Date of Admission: 06/23/23 Primary Care Physician: Dr. 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 Routine Comment: Reason for Consult:: left 2nd digit wound 06/24/23 08:50 Consult: Infectious Disease Routine Consulting Provider: Mack Tierney Reason for Consult: osteomyelitis left 2nd toe EMERGENT Consult: No Notified: Yes Date Notified: 06/24/23 Time Notified: 09:44 Method of Notification: Text Reason For Visit: OSTEOMYELITIS OF LEFT FOOT Diagnosis Discharge Diagnosis (1) Toe osteomyelitis, left: Status: Acute Code(s): M86.9 - Osteomyelitis, unspecified (2) Polyneuropathy: Status: Acute Code(s): G62.9 - Polyneuropathy, unspecified (3) Diabetes mellitus: Status: Acute Code(s): E11.9 - Type 2 diabetes mellitus without complications Qualifiers: Diabetes mellitus type: type 2 Diabetes mellitus complication detail: with other skin complication (4) Non-pressure chronic ulcer of other part of left foot with necrosis of bone: Status: Chronic Code(s): L97.524 - Non-pressure chronic ulcer of other part of left foot with necrosis of bone (5) Non-pressure chronic ulcer of other part of right foot with fat layer exposed: Status: Chronic Code(s): L97.512 - Non-pressure chronic ulcer of other part of right foot with fat layer exposed (6) Cellulitis of left lower limb: Status: Acute Code(s): L03.116 - Cellulitis of left lower limb Plan Patient has been admitted for left 2nd toe osteomyelitis and foot cellulitis, also chronic right foot wound to 1st MTPJ plantarly. Now s/p surgical intervention on 06/24/23 - feet doing wel ltoday. A culture has been obtained left 2nd toe ulceration and sent to microbiology - patient is on antibiotics. ID service on consult. Oral Doxycycline for 6 weeks. Reviewed LEAS from 05/23/23 and good arterial flow to bilateral foot. Wound care - betadine soln to incision sites, and gauze dressing changes daily - bilateral feet. Hospital Medicine has been consulted - appreciated assistance. DVT prophylaxis - Patient is on eliquis D/C planning - recommend nursing facility placement for rehab. Medications at Discharge Home Medications duloxetine 30 mg capsule,delayed release 30 mg PO QHS NEUROPATHY 09/22/20 nitroglycerin 0.4 mg sublingual tablet 0.4 mg sublingual Q5M PRN Cardiac/Chest Pain #0 tabs 06/11/22 cyanocobalamin (vitamin B-12) 1,000 mcg tablet (Vitamin B-12) 1,000 mcg PO DAILY supplement 08/10/22 famotidine 40 mg tablet 20 mg PO BID stomach 08/10/22 oxycodone 5 mg tablet 5 mg PO Q4H PRN PRN Pain Score 6-10 7 days #28 tabs 11/24/22 cholecalciferol (vitamin D3) 25 mcg (1,000 unit) tablet (Vitamin D3) 50 mcg PO DAILY Supplement 12/28/22 apixaban 2.5 mg tablet (Eliquis) 2.5 mg PO BID #180 tabs 01/04/23 furosemide 40 mg tablet 40 mg PO DAILY Diuretic 01/04/23 potassium chloride 20 mEq tablet,extended release(part/cryst) (Klor-Con M) 20 meq PO DAILY Supplement 01/04/23 aspirin 81 mg tablet,delayed release (Adult Low Dose Aspirin) 81 mg PO DAILY 04/08/23 losartan 25 mg tablet 25 mg PO QHS 04/08/23 spironolactone 25 mg tablet 25 mg PO QHS 04/08/23 donepezil 10 mg tablet 10 mg PO QHS #90 tabs 05/02/23 lamotrigine 100 mg tablet 100 mg PO BID Seizures #180 tabs 05/02/23 diltiazem HCl 120 mg capsule,extended release 24 hr (Cartia XT) 120 mg PO DINNER heart 05/23/23 doxycycline monohydrate 100 mg capsule 100 mg PO BID 38 days #76 caps 06/28/23 metoprolol succinate 25 mg tablet,extended release 24 hr 25 mg PO DAILY HEART 06/28/23 Weight / BMI Weight Weight: 73.3 kg Body Mass Index (BMI) 26.0 ABG / Lab / Microbiology Data 06/26/23 05:55 06/26/23 05:55 Microbiology: Microbiology 06/24/23 Unknown Bone - 2nd Toe Gram Stain - Final 06/24/23 Unknown Bone - 2nd Toe Wound Culture - Final Staphylococcus lugdunensis 06/24/23 Unknown Bone - 2nd Toe Anaerobic Culture - Final No anaerobic bacteria isolated. 06/24/23 Unknown Bone - 2nd Toe Gram Stain - Final 06/24/23 Unknown Bone - 2nd Toe Wound Culture - Final Staphylococcus lugdunensis 06/24/23 Unknown Bone - 2nd Toe Anaerobic Culture - Preliminary No growth in 48 hours. 06/23/23 11:30 Wound - Toe Gram Stain - Final 06/23/23 11:30 Wound - Toe Wound Culture - Final Staphylococcus lugdunensis D/C Instructions Discharge Activity: May Not Drive Weight Bearing Status: Partial weight bearing (Ok to weightbear on heels bilateral) Keep extremity elevated above heart level: Left Leg and Right Leg Call your doctor if your incision/area has: Continuous Slow Oozing, Sudden Increased Bleeding and Foul Smelling Discharge Call your doctor if you observe: Fever of 101 or Higher, Coldness, Increased Pain, Shortness of breath, Chest pain, Calf discomfort and Uncontrolled pain Change Dressing in: 1 day (Bilateral foot surgical sites care: topical betadine soln, overlying adaptic, gauze, kerlix and mac dressing changes daily) Please Follow Up With: Blu Hernandes DPM When: 1 week in office at the [facility] in [place], follow up sooner if needed Meaningful Use Info Meaningful Use Diagnoses (Choose all that apply): None applicable Discharge Plan Admission Admit Date/Time: 06/23/23 12:02 Attending Provider: Blu Hernandes Primary Care Provider: Nahomy Bettencourt Consulting Providers: Mack Tierney; Rob Young Discharge Orders/Prescriptions Prescriptions: New doxycycline monohydrate 100 mg Capsule 100 mg PO BID 38 Days Qty: 76 0RF Continued duloxetine 30 mg capsule,delayed release(DR/EC) 30 mg PO QHS famotidine 40 mg tablet 20 mg PO BID cyanocobalamin (vitamin B-12) [Vitamin B-12] 1,000 mcg tablet 1,000 mcg PO DAILY furosemide 40 mg tablet 40 mg PO DAILY Rx Instructions: AM potassium chloride [Klor-Con M20] 20 mEq tablet,ER particles/crystals 20 meq PO DAILY Eliquis 2.5 mg tablet 2.5 mg PO BID Qty: 180 3RF donepezil 10 mg tablet 10 mg PO QHS Qty: 90 1RF lamotrigine 100 mg tablet 100 mg PO BID Qty: 180 1RF diltiazem HCl [Cartia XT] 120 mg capsule,extended release 24hr 120 mg PO DINNER nitroglycerin 0.4 mg Tablet, Sublingual 0.4 mg sublingual Q5M PRN (Reason: Cardiac/Chest Pain) Qty: 0 0RF cholecalciferol (vitamin D3) [Vitamin D3] 25 mcg (1,000 unit) tablet 50 mcg PO DAILY oxycodone 5 mg Tablet 5 mg PO Q4H PRN PRN (Reason: Pain Score 6-10) 7 Days Qty: 28 0RF spironolactone 25 mg tablet 25 mg PO QHS losartan 25 mg tablet 25 mg PO QHS Patient Comments: take 1 tablet by mouth once daily aspirin [Adult Low Dose Aspirin] 81 mg tablet,delayed release (DR/EC) 81 mg PO DAILY metoprolol succinate 25 mg tablet extended release 24 hr 25 mg PO DAILY Patient Comments: take 1 tablet by mouth once daily Referrals / Follow Up: Nahomy Bettencourt MD [Primary Care Provider] - Disposition Disposition (needs filled in before D/C Order can be placed): [facility]
--- NOTE | 2023-06-29 12:09 | PHA.DC.MR.R ---
Pharmacy [place] Med Reconciliation Pharmacy Service has performed discharge medication reconciliation for this patient. The patient's discharge medication list was reviewed for discrepancies and discrepancies were resolved. Medications at Discharge Home Medications duloxetine 30 mg capsule,delayed release 30 mg PO QHS NEUROPATHY 09/22/20 nitroglycerin 0.4 mg sublingual tablet 0.4 mg sublingual Q5M PRN Cardiac/Chest Pain #0 tabs 06/11/22 cyanocobalamin (vitamin B-12) 1,000 mcg tablet (Vitamin B-12) 1,000 mcg PO DAILY supplement 08/10/22 famotidine 40 mg tablet 20 mg PO BID stomach 08/10/22 oxycodone 5 mg tablet 5 mg PO Q4H PRN PRN Pain Score 6-10 7 days #28 tabs 11/24/22 cholecalciferol (vitamin D3) 25 mcg (1,000 unit) tablet (Vitamin D3) 50 mcg PO DAILY Supplement 12/28/22 apixaban 2.5 mg tablet (Eliquis) 2.5 mg PO BID #180 tabs 01/04/23 furosemide 40 mg tablet 40 mg PO DAILY Diuretic 01/04/23 potassium chloride 20 mEq tablet,extended release(part/cryst) (Klor-Con M) 20 meq PO DAILY Supplement 01/04/23 aspirin 81 mg tablet,delayed release (Adult Low Dose Aspirin) 81 mg PO DAILY 04/08/23 losartan 25 mg tablet 25 mg PO QHS 04/08/23 spironolactone 25 mg tablet 25 mg PO QHS 04/08/23 donepezil 10 mg tablet 10 mg PO QHS #90 tabs 05/02/23 lamotrigine 100 mg tablet 100 mg PO BID Seizures #180 tabs 05/02/23 diltiazem HCl 120 mg capsule,extended release 24 hr (Cartia XT) 120 mg PO DINNER heart 05/23/23 doxycycline monohydrate 100 mg capsule 100 mg PO BID 38 days #76 caps 06/28/23 metoprolol succinate 25 mg tablet,extended release 24 hr 25 mg PO DAILY HEART 06/28/23
--- NOTE | 2023-06-29 13:42 | CASEMGMT ---
Discharge Planning Discharge orders, signed med list, and covid results sent via [facility] to [facility]. Requested after hours phone/fax for report. Coleen Dotson, Discharge Planning Asst.
[2023-06-29 14:37] VITALS: BP 106/69; PULSE 82; RESP 16; TEMP 36.6; O2SAT 97
[2023-06-29] MEDS: dilTIAZem CD 120 MG Capsule PO (18:11)
[2023-06-29 20:23] VITALS: BP 98/51; PULSE 98; RESP 16; TEMP 36.6; O2SAT 96
== END 2023-06-29 20:28 | disposition skilled nursing facility (03) | DRG 623 ==
PROVIDERS: Emergency Medicine; Hospitalist; Admitting Provider Podiatrist; PCP Family Medicine; Referring Provider Podiatrist; Visit Provider Podiatrist
PROC: 0JBQ0ZZ Excision of Right Foot Subcutaneous Tissue and Fascia, Open Approach (ICD-10-PCS; principal; 2023-06-24 09:25)
DX: E11.69 Type 2 diabetes mellitus with other specified complication (principal); L03.116 Cellulitis of left lower limb; I42.9 Cardiomyopathy, unspecified; L97.412 Non-pressure chronic ulcer of right heel and midfoot with fat layer exposed; I50.22 Chronic systolic (congestive) heart failure; E11.610 Type 2 diabetes mellitus with diabetic neuropathic arthropathy; E11.621 Type 2 diabetes mellitus with foot ulcer; E11.42 Type 2 diabetes mellitus with diabetic polyneuropathy; G40.909 Epilepsy, unspecified, not intractable, without status epilepticus; I48.0 Paroxysmal atrial fibrillation; I11.0 Hypertensive heart disease with heart failure; L97.524 Non-pressure chronic ulcer of other part of left foot with necrosis of bone; I35.0 Nonrheumatic aortic (valve) stenosis; M19.072 Primary osteoarthritis, left ankle and foot; I25.10 Atherosclerotic heart disease of native coronary artery without angina pectoris; K21.9 Gastro-esophageal reflux disease without esophagitis; M20.42 Other hammer toe(s) (acquired), left foot; M21.611 Bunion of right foot; G20.A1 Parkinson's disease without dyskinesia, without mention of fluctuations; Z79.82 Long term (current) use of aspirin; Z79.01 Long term (current) use of anticoagulants; Z79.899 Other long term (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; Z87.891 Personal history of nicotine dependence; M89.8X7 Other specified disorders of bone, ankle and foot
CPT/HCPCS: 36415; 73630; 73660; 73718; 76000; 80048; 80053; 80202; 82962; 83036; 85025; 85027; 85610; 85652; 85730; 86140; 87015; 87070; 87075; 87077; 87102; 87116; 87186; 87205; 87206; 87426; 87640; 88305; 88311; 93005; 97110; 97162; 97166; 97530; 97535; 97803; J7040; J7050; 90662; A4216

== ENCOUNTER 2023-07-22 06:43 | Emergency (ER) | payer MEDICARE, SELFPAY ==
[2023-07-22 06:45] VITALS: BP 124/69; PULSE 77; RESP 18; TEMP 36.2; O2SAT 97; BMI 25.2
--- NOTE | 2023-07-22 07:16 | CT_ITS ---
STUDY: CT ABDOMEN AND PELVIS WITH CONTRAST REASON FOR EXAM: Female, 82 years old. Abdominal pain RADIATION DOSAGE (If Supplied By Facility): CTDIvol = ( 27.51 ) mGy, DLP = ( 1542.38 ) mGycm TECHNIQUE: IV 100mL Isovue-300 was administered. Transaxial images were obtained from the dome of the diaphragm to the symphysis pubis. Multiplanar coronal and sagittal images were reformatted. Individualized Dose Optimization Techniques Were Used For This CT. COMPARISON: Prior study dated: 06/09/2022 FINDINGS: The visualized lung bases demonstrate atelectatic changes or scarring in the left lower lobe. Borderline heart size. Calcifications of the aortic valve. 1.8 cm exophytic mass arising from the posterior right hepatic lobe unchanged since previous exam. Absent gallbladder consistent with previous cholecystectomy. Normal spleen. Normal pancreas. Normal bilateral adrenal glands. The stomach is nondistended. Normal in caliber small bowel loops. Fecal retention in the rectosigmoid colon concerning for constipation. Diverticulosis without evidence of acute diverticulitis. Fluid-filled ascending colon. The appendix is not definitely identified. There is diffuse atherosclerotic calcification of the abdominal aorta, without a demonstrated aneurysm. No retroperitoneal adenopathy. Normal right kidney. Normal left kidney. Normal urinary bladder. There is absence of the uterus consistent with a prior hysterectomy. Normal abdominal wall. Multilevel degenerative changes of the spine. CT/Abdomen/Pelvis W IV Cont ONLY IMPRESSION: 1. Nonspecific fluid-filled ascending colon without evidence of obstruction. 2. Diverticulosis without evidence of acute diverticulitis. 3. Fecal retention. 4. Stable exophytic mass posterior to the right hepatic lobe unchanged since prior examinations. Electronically Signed: Antoine Ibrahim MD at 9:09 EST ,
--- NOTE | 2023-07-22 07:17 | EDS_ITS ---
HPI HPI - GI History of Present Illness Chief Complaint: Constipation Narrative Narrative: 82-year-old female presenting with constipation. She states has been constipated for the last 2 to 3 days. She has a history of this in the past. She states her gave her 1 dose of MiraLAX yesterday but she has not had a bowel movement. She now feels nauseous and has decreased appetite. She states her stomach feels bloated. She has tenderness/pain in the mid abdomen. Patient has past surgical history of appendectomy, cholecystectomy, hysterectomy. Patient has known obstruction. Patient has not had a fever, chills. Denies urinary or vaginal complaints. She does state a couple of months ago she was here with similar complaints and had to have an enema. [facility] Medical History Abnormal stress test Acute postoperative pain of right knee Acute systolic congestive heart failure Ambulates with cane Anxiety Aortic stenosis Aortic valve stenosis with insufficiency Arthritis Atherosclerotic heart disease of [place] coronary artery without angina pectoris Atrial fibrillation Back pain Cardiology follow-up encounter Cardiomyopathy Cellulitis of chest wall Chronic constipation Chronic cough Congestive heart failure (CHF) Debility Debility Dementia Depression Depression Diabetes Diabetes mellitus Diabetic neuropathy Diabetic polyneuropathy Dietary restriction DM2 (diabetes mellitus, type 2) Epilepsy Essential hypertension Former smoker H/O cardiac murmur History of atrial fibrillation History of echocardiogram History of left heart catheterization (LHC) (~06/02/22) History of pain when walking History of steroid therapy History of stress test Hx of back injury Hx of vaginal delivery Hypertension Hypertension Hypertension Inability to ambulate due to knee Injury of back Injury of head and neck Mitral regurgitation Nephrolithiasis Neuropathy Neuropathy, diabetic Other fci (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 Parkinson's disease Paroxysmal atrial fibrillation Pericardial effusion Pleural effusion due to CHF (congestive heart failure) Preoperative cardiovascular examination Rotator cuff tear arthropathy of left shoulder Tremor Vitamin D deficiency Wears glasses Home Medications duloxetine 30 mg capsule,delayed release 30 mg PO QHS NEUROPATHY 09/22/20 [Hist ory Last Taken 07/21/23] nitroglycerin 0.4 mg sublingual tablet 0.4 mg sublingual Q5M PRN Cardiac/Chest Pain #0 tabs 06/11/22 [Rx Last Taken Unknown] cyanocobalamin (vitamin B-12) 1,000 mcg tablet (Vitamin B-12) 1,000 mcg PO DAILY supplement 08/10/22 [History Last Taken 07/21/23] oxycodone 5 mg tablet 5 mg PO Q4H PRN PRN Pain Score 6-10 7 days #28 tabs 11/24/22 [Rx Last Taken Unknown] apixaban 2.5 mg tablet (Eliquis) 2.5 mg PO BID #180 tabs 01/04/23 [Rx Last Taken 07/21/23] furosemide 40 mg tablet 40 mg PO DAILY Diuretic 01/04/23 [History Last Taken 07/21/23] aspirin 81 mg tablet,delayed release (Adult Low Dose Aspirin) 81 mg PO DAILY 04/08/23 [History Last Taken 06/23/23 09:00] losartan 25 mg tablet 25 mg PO QHS 04/08/23 [History Last Taken 07/21/23] donepezil 10 mg tablet 10 mg PO QHS #90 tabs 05/02/23 [Rx Last Taken 07/21/23] lamotrigine 100 mg tablet 100 mg PO BID Seizures #180 tabs 05/02/23 [Rx Last Taken 07/21/23] diltiazem HCl 120 mg capsule,extended release 24 hr (Cartia XT) 120 mg PO DINNER heart 05/23/23 [History Last Taken 07/21/23] metoprolol succinate 25 mg tablet,extended release 24 hr 25 mg PO DAILY HEART 06/28/23 [History Last Taken 07/21/23] Allergy/AdvReac Type Severity Reaction Status Date / Time levetiracetam Allergy Other Verified 07/22/23 06:44 nickel Allergy Rash Verified 07/22/23 06:44 sulfamethoxazole Allergy Itching Verified 07/22/23 06:44 [From Bactrim] trimethoprim [From Bactrim] Allergy Itching Verified 07/22/23 06:44 codeine AdvReac Nausea Verified 07/22/23 06:44 milk AdvReac Nausea/Vom/ Verified 07/22/23 06:44 Diarrhea Family History Father No problems noted. Mother No problems noted. Surgical History Amputated toe of right foot Deviated septum History of appendectomy History of cholecystectomy History of hysterectomy History of left hip hemiarthroplasty History of neck surgery History of tonsillectomy History of total right knee replacement (TKR) Hx of cystoscopy Hx of fusion of cervical spine S/P total knee arthroplasty Social History household members: spouse Smoking Status: Former smoker alcohol intake: never substance use type: does not use caffeine: No what type of physical activity do you participate in: other details: physical therapy seatbelt use: always do you feel safe at home: Yes ROS ROS ED Constitutional Constitutional ED: Denies chills, fever(s) or sweats Eyes Eyes: Denies blurry vision or change in vision ENT ENT ED: Denies ear pain or sore throat Cardiovascular Cardiovascular: Denies chest pain, palpitations or racing heartbeat Respiratory/Chest Respiratory/Chest: Denies cough, dyspnea or sputum Gastrointestinal Gastrointestinal: Reports abdominal pain, constipation and nausea; Denies diarrhea or vomiting Genitourinary Genitourinary ED: Denies dysuria, hematuria or urinary frequency Musculoskeletal Musculoskeletal: Denies arthralgias, myalgias or neck pain Integumentary Denies abscess, Abrasions or rash Neurologic Neurologic: Denies headache(s), paresthesias or weakness Psychiatric Psychiatric: Denies anxiety, depression, suicidal ideation or suicidal thoughts Endocrine Endocrinology: Denies polydipsia or polyuria EXAM Physical Exam Const Vital Signs: 07/22/23 06:45 07/22/23 10:44 07/22/23 12:29 Temperature 97.1 F L 97.8 F 98.2 F Temperature Source Temporal Temporal Pulse Rate 77 78 84 Respiratory Rate 18 16 16 Blood Pressure 124/69 H 115/77 135/87 H Blood Pressure Mean 87 89 103 Pulse Ox 97 98 97 Oxygen Delivery Method Room Air Room Air Positive well nourished General Appearance ED: NAD HEENT Reports moist mucous membranes normocephalic and atraumatic Eyes PERRL Neck no lymphadenopathy Resp normal respiratory effort and clear to auscultation bilaterally Auscultation: Negative for rales, rhonchi or wheezes Cardio regular rate and regular rhythm GI GI Narrative: Generalized tenderness. No peritoneal signs. No guarding. Narrative: Stool in the rectal vault at the fingertip. Not able to disimpact this. Neuro CN's II-XII intact bilaterally Psych mental status grossly normal Skin no wounds MDM MDM MDM Narrative Medical decision making narrative: Patient presenting with abdominal pain, constipation. Abdominal exam is benign. Blood work was obtained and CBC and CMP are unremarkable. Patient was given IV fluids and urinalysis was tested which was also negative. CT of the abdomen pelvis was obtained which did not show any evidence of acute pathology other than constipation. Since I am unable to disimpact the patient we did do a soapsuds enema which did initially clear some of the stool and she required a second soapsuds enema which allowed her to have a large bowel movement she felt much better. Given that her workup was normal I feel she can be discharged home. Return precautions were discussed. I recommend that she use MiraLAX for the next 3 days and evening. Impression: 1. Abdominal pain 2. Constipation 3. Fecal impaction Lab Data Attestation: I reviewed the patient's lab results. Labs: Laboratory Results - last 24 hr 07/22/23 07/22/23 07:30 09:11 WBC 8.1 RBC 4.02 L Hgb 12.9 Hct 40.8 MCV 101.5 H MCH 32.1 H MCHC 31.6 L RDW Std Deviation 48.3 H RDW Coeff of Robert 13.0 Plt Count 245 MPV 10.1 Immature Gran % (Auto) 0.400 Neut % (Auto) 70.7 H Lymph % (Auto) 19.5 [place] % (Auto) 6.4 Eos % (Auto) 2.5 Baso % (Auto) 0.5 Absolute Neuts (auto) 5.7 Absolute Lymphs (auto) 1.58 Nucleated RBC % 0 Sodium 139 Potassium 4.3 Chloride 107 Carbon Dioxide 27.0 Anion Gap 5 BUN 19 H Creatinine 0.90 Estim Creat Clear Calc 45.25 Est GFR (MDRD) Af Amer 77 Est GFR (MDRD) Non-Af 63 BUN/Creatinine Ratio 21.1 H Glucose 102 Calcium 9.4 Total Bilirubin 0.60 AST 15 ALT 19 Alkaline Phosphatase 176 H Total Protein 6.4 Albumin 3.2 Globulin 3.2 Albumin/Globulin Ratio 1.0 Lipase 39 Urine Color Yellow Urine Clarity Sl. Cloudy Urine pH 8.0 Ur Specific [place] 1.010 Urine Protein 15 H Urine Glucose (UA) Normal Urine Ketones Negative Urine Occult Blood Negative Urine Nitrite Negative Urine Bilirubin Negative Urine Urobilinogen Normal Ur Leukocyte Esterase 100 H Urine RBC 0 SEEN Urine WBC 0-5 SEEN Ur Squamous Epith Cells 0-5 SEEN Amorphous Sediment 2+ Urine Bacteria 1+ Urine Mucus 0 SEEN Radiography Diagnostic Testing: Clinical Impression(s) from Imaging Studies Abdomen/Pelvis CT 07/22/23 07:16 IMPRESSION: 1. Nonspecific fluid-filled ascending colon without evidence of obstruction. 2. Diverticulosis without evidence of acute diverticulitis. 3. Fecal retention. 4. Stable exophytic mass posterior to the right hepatic lobe unchanged since prior examinations. Electronically Signed: Antoine Ibrahim MD at 9:09 EST , Discharge Plan Triage Chief Complaint: Constipation ED Provider: Luis Christina Dx/Rx/DC Orders Instructions: ED Abdominal Pain Unkn Cause Fem, ED Constipation (Adult), ED Fecal Impaction, Treated Prescriptions: No Action duloxetine 30 mg capsule,delayed release(DR/EC) 30 mg PO QHS cyanocobalamin (vitamin B-12) [Vitamin B-12] 1,000 mcg tablet 1,000 mcg PO DAILY furosemide 40 mg tablet 40 mg PO DAILY Rx Instructions: AM Eliquis 2.5 mg tablet 2.5 mg PO BID Qty: 180 3RF donepezil 10 mg tablet 10 mg PO QHS Qty: 90 1RF lamotrigine 100 mg tablet 100 mg PO BID Qty: 180 1RF diltiazem HCl [Cartia XT] 120 mg capsule,extended release 24hr 120 mg PO DINNER nitroglycerin 0.4 mg Tablet, Sublingual 0.4 mg sublingual Q5M PRN (Reason: Cardiac/Chest Pain) Qty: 0 0RF oxycodone 5 mg Tablet 5 mg PO Q4H PRN PRN (Reason: Pain Score 6-10) 7 Days Qty: 28 0RF losartan 25 mg tablet 25 mg PO QHS Patient Comments: take 1 tablet by mouth once daily aspirin [Adult Low Dose Aspirin] 81 mg tablet,delayed release (DR/EC) 81 mg PO DAILY metoprolol succinate 25 mg tablet extended release 24 hr 25 mg PO DAILY Patient Comments: take 1 tablet by mouth once daily Primary Care Provider: Nahomy Bettencourt Referrals: Nahomy Bettencourt MD [Primary Care Provider] - Disposition Disposition: Home, Self Care Discharge Date/Time: 07/22/23 12:30
[2023-07-22] MEDS: Ondansetron 4 MG/2 ML Vial IV (07:23)
[2023-07-22] MEDS: 0.9% Normal Saline (1000mL) 1,000 ML 1000 ML IV (07:23)
[2023-07-22 07:35] LABS: Absolute Lymphocyte Count 1.58 X10^3/uL (0.83-4.51); Absolute Neutrophil Count 5.7 X10^3/uL (2.0-7.7); Basophil# 0.04 X10^3/uL; Basophil% 0.5 % (0-1); Eosinophils% 2.5 % (0-5); Hematocrit 40.8 % (37-47); Hemoglobin 12.9 g/dL (12.0-15.0); Lymphocyte # 1.58 X10^3/ul (0.83-4.51); Lymphocyte % 19.5 % (19-41); Mean Corp Hgb Conc 31.6 g/dL (32-36); Mean Corpuscular Hgb 32.1 pg (27.0-32.0); Mean Corpuscular Volume 101.5 fL (81-99); Mean Platelet Vol. 10.1 fl (6.2-12.0); Monocyte# 0.52 X10^3/uL; Monocyte% 6.4 % (0-10); NRBC Flagged by Analyzer 0 % (0-5); Neutrophil # 5.72 X10^3/uL (2.7-7.7); Neutrophil % 70.7 % (47-70); Platelet Count 245 K/mm3 (150-450); RBC Distribution Width SD 48.3 fl (35.1-43.9); Red Blood Count 4.02 M/mm3 (4.2-5.4); White Blood Count 8.1 K/mm3 (4.4-11.0)
[2023-07-22 07:58] LABS: AST(SGOT) 15 U/L (15-37); Alanine Aminotransfer ALT/SGPT 19 U/L (13-56); Albumin, Serum 3.2 g/dL (3.2-5.0); Alkaline Phosphatase 176 U/L (45-117); Anion Gap 5 (5-15); BUN 19 mg/dL (7-18); BUN/Creat Ratio 21.1 RATIO (10-20); Calcium,Total 9.4 mg/dL (8.5-10.1); Chloride 107 mmol/L (98-107); EST Glomerular Filtration Rate 63 mL/min (>60); Est Glom Filt Rate - Afr Amer 77 mL/min (>60); Estimated Creatinine Clearance 45.25 ml/min; Globulin 3.2 g/dL (2.2-4.2); Glucose 102 mg/dL (74-106); Lipase 39 U/L (13-75); Potassium 4.3 mmol/L (3.5-5.1); Protein, Total 6.4 g/dL (6.4-8.2); Sodium Level 139 mmol/L (136-145)
[2023-07-22 09:16] LABS: Mucous, Urine 0 SEEN /hpf (<or=2+); Red Blood Cells-Urine 0 SEEN /hpf (0-5)
[2023-07-22 09:20] LABS: Color, Urine Yellow (Yellow); Glucose, Dipstick Normal (Normal); Ketone-Dipstick Negative (Negative); Leukocyte Esterase-Dipstick 100 /ul (Negative); Nitrite-Dipstick Negative (Negative); Occult Blood-Urine Negative /ul (Negative); Protein-Dipstick 15 mg/dl (Negative); Urine Bilirubin Dipstick Negative (Negative); Urine Clarity Sl. Cloudy (Clear); Urine Urobilinogen Normal (Normal)
[2023-07-22 09:30] LABS: Amorphous Sediment 2+; Bacteria 1+ /hpf (None Seen); Squamous Epithelial Cells - UA 0-5 SEEN /hpf (5-10); White Blood Cells 0-5 SEEN /hpf (0-5)
[2023-07-22 10:44] VITALS: BP 115/77; PULSE 78; RESP 16; TEMP 36.6; O2SAT 98
[2023-07-22 12:29] VITALS: BP 135/87; PULSE 84; RESP 16; TEMP 36.8; O2SAT 97
== END 2023-07-22 12:30 | disposition home or self-care (01) ==
PROVIDERS: Emergency Provider Student in an Organized Health Care Education/Training Program; PCP Family Medicine; Visit Provider Student in an Organized Health Care Education/Training Program
DX: K56.41 Fecal impaction (principal); Z79.82 Long term (current) use of aspirin; Z79.01 Long term (current) use of anticoagulants; Z79.899 Other long term (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; Z87.891 Personal history of nicotine dependence
CPT/HCPCS: 74177; 80053; 81001; 83690; 85025; 96361; 96374; 99284; J7030; Q9967; A4216; J2405

== ENCOUNTER → 2023-10-28 | Outpatient (CLI) | payer MEDICARE, SELFPAY ==
--- NOTE | 2023-10-28 15:00 | RAD_ITS ---
EXAM: XR LUMBOSACRAL SPINE, 4 OR 5 VIEWS CLINICAL INDICATION: Postlaminectomy syndrome, not elsewhere classified TECHNIQUE: Frontal, lateral and bilateral oblique views of the lumbar spine. COMPARISON: CT abdomen and pelvis, 07/22/2023 and MRI lumbar spine, 06/27/2021. FINDINGS: VERTEBRAE: Multilevel endplate sclerosis and osteophytosis as well as facet arthrosis. [place] left thoracolumbar curvature. Preserved vertebral body height. No fracture. No spondylolisthesis. SACRUM/COCCYX: Relatively symmetric SI joint arthrosis. DISC SPACES: Left hip arthroplasty and moderate degenerative changes at the partially visualized right hip. Left L4 hemilaminotomy presumptively related to partial discectomy at L4-L5. Multilevel intervertebral disc height loss. GASTROINTESTINAL TRACT: Normal as visualized. Included bowel gas pattern is non-obstructive. RAD/L/S Spine Min 4 Views IMPRESSION: Left L4 hemilaminotomy presumptively related to partial discectomy at L4-L5. Degenerative changes as above. Electronically Signed: Andrés Downing DO at 20:39 EDT ,
== END | disposition home or self-care (01) ==
LOC: RAD 14:25
PROVIDERS: PCP Family Medicine; Referring Provider Anesthesiology Pain Medicine; Visit Provider Anesthesiology Pain Medicine
DX: M96.1 Postlaminectomy syndrome, not elsewhere classified (principal)
CPT/HCPCS: 72110

== ENCOUNTER 2023-12-06 11:08 | Emergency (ER) | payer MEDICARE, SELFPAY ==
[2023-12-06 11:10] VITALS: BP 115/78; PULSE 74; RESP 20; TEMP 36.4; O2SAT 98; BMI 30.3
--- NOTE | 2023-12-06 11:24 | CT_ITS ---
STUDY: CT BRAIN WITHOUT CONTRAST REASON FOR EXAM: Female, 83 years old. Head trauma RADIATION DOSAGE (If Supplied By Facility): CTDIvol = ( 44.99 ) mGy, DLP = ( 779.24 ) mGycm TECHNIQUE: Transaxial CT imaging of the brain was performed without administration of intravenous contrast material. Individualized dose optimization techniques were used for this CT. COMPARISON: Comparison is made with prior study dated April 11, 2023. FINDINGS: Normal soft tissue structures. There is hyperostosis frontalis internus. There is moderate cerebral atrophy with widening of the extra-axial spaces and ventricular dilatation. Normal white matter tracts of the cerebral hemispheres. Normal basal ganglia and thalami. Normal brainstem. There is mild cerebellar atrophy. There is no intracranial hemorrhage. There are no findings of an acute ischemic infarction. Atherosclerotic plaque formation of the cavernous portions of the internal carotid arteries bilaterally. Normal visualized paranasal sinuses. CT/Brain/Head without Contrast IMPRESSION: Chronic involutional changes of the brain. Electronically Signed: Amol Hannon MD at 11:54 EDT ,
--- NOTE | 2023-12-06 11:24 | CT_ITS ---
STUDY: CT CERVICAL SPINE WITHOUT CONTRAST REASON FOR EXAM: Female, 83 years old. Fall and trauma RADIATION DOSAGE (If Supplied By Facility): CTDIvol = ( 24.74 ) mGy, DLP = ( 514.40 ) mGycm TECHNIQUE: High resolution transaxial imaging was performed without contrast material. Sagittal and coronal images were reconstructed. Individualized dose optimization techniques were used for this CT. COMPARISON: Comparison is made with prior study April 11, 2023. FINDINGS: Normal craniovertebral junction. Normal anterior atlantoaxial articulation. Normal odontoid process. There is straightening of the normal cervical lordosis. Multilevel facet joint osteoarthritis C2-3: Facet joint osteoarthritis and hypertrophy. No significant stenosis is seen. C3-4: Mild degree of disc space narrowing. Facet joint osteoarthritis and hypertrophy worse on the left side. Left neural foraminal stenosis. C4-5: Moderate degree of disc space narrowing. Spondylosis. Uncovertebral arthrosis. Bilateral neural foraminal stenosis worse on the left side. C5-6: Fusion of the disc space. Uncovertebral arthrosis. Facet joint osteoarthritis. Mild left neural foraminal stenosis. C6-7: Fusion of the disc space. Facet joint osteoarthritis. Spondylosis. No significant stenosis seen. C7-T1: Normal endplates. Normal disc height and morphology. Normal central canal and intervertebral neuroforamina. Atherosclerotic plaque formation of the carotid bifurcations. CT/Spine Cervical without Contras IMPRESSION: Multilevel degenerative changes, as described above. Electronically Signed: Amol Hannon MD at 11:56 EDT ,
--- NOTE | 2023-12-06 11:27 | ED.VIS.FALL ---
HPI HPI - Fall History of Present Illness Chief Complaint: Fall Informant: patient Occured/Mechanism Occurred: Today Mechanism/Context: Yes same level fall and Yes trip Usually ambulates: Without assistance Pain/Injury Pain Location: head, neck and upper extremity Quality of Pain: Dull and Aching Current Severity: Mild Maximum Severity: Mild Associated Symptoms Associated Symptoms: Negative for Parasthesias, Weakness, Loss of function, Inability to ambulate, Loss of consciousness or Amnesia Narrative Narrative: 83-year-old female history of CHF, dementia. On Eliquis supposedly. Tripped and fell fell backwards struck her head on a she believes a Ringostat. Is occurred about an hour ago. Does not believe she lost consciousness. Complaining of back of her head pain and neck pain. She also has a skin tear on her left forearm that the squad bandaged. Denies any hip pain. Prior similar symptoms: No Recent Illness/Hospitalization: No PFSH PFSH Medical History Mitral regurgitation Aortic valve stenosis with insufficiency Atrial fibrillation Preoperative cardiovascular examination Congestive heart failure (CHF) Dementia Parkinson's disease Rotator cuff tear arthropathy of left shoulder Tremor Cardiomyopathy Aortic stenosis Pericardial effusion Anxiety Depression Hypertension Diabetic neuropathy Acute systolic congestive heart failure Debility Pleural effusion due to CHF (congestive heart failure) Cellulitis of chest wall H/O cardiac murmur Depression Diabetic polyneuropathy Diabetes mellitus Chronic constipation Vitamin D deficiency Hypertension Inability to ambulate due to knee Debility Acute postoperative pain of right knee Wears glasses History of steroid therapy Diabetes Ambulates with cane Arthritis Back pain Injury of back Injury of head and neck Epilepsy Dietary restriction Former smoker Chronic cough Neuropathy History of pain when walking History of stress test History of echocardiogram Cardiology follow-up encounter History of atrial fibrillation Hx of vaginal delivery Hx of back injury Atherosclerotic heart disease of saxman coronary artery without angina pectoris Abnormal stress test History of left heart catheterization (LHC) (~06/02/22) Essential hypertension 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 Neuropathy, diabetic Nephrolithiasis Hypertension DM2 (diabetes mellitus, type 2) Paroxysmal atrial fibrillation Home Medications ?Medication ?Instructions ?Recorded ?Last Taken ?Type duloxetine 30 mg capsule,delayed 30 mg PO QHS NEUROPATHY 09/22/20 07/21/23 History release nitroglycerin 0.4 mg sublingual 0.4 mg sublingual Q5M PRN 06/11/22 Unknown Rx tablet Cardiac/Chest Pain #0 tabs cyanocobalamin (vitamin B-12) 1,000 mcg PO DAILY supplement 08/10/22 07/21/23 History 1,000 mcg tablet (Vitamin B-12) oxycodone 5 mg tablet 5 mg PO Q4H PRN PRN Pain Score 11/24/22 Unknown Rx 6-10 7 days #28 tabs apixaban 2.5 mg tablet (Eliquis) 2.5 mg PO BID #180 tabs 01/04/23 07/21/23 Rx furosemide 40 mg tablet 40 mg PO DAILY Diuretic 01/04/23 07/21/23 History aspirin 81 mg tablet,delayed 81 mg PO DAILY 04/08/23 06/23/23 09:00 History release (Adult Low Dose Aspirin) donepezil 10 mg tablet 10 mg PO QHS #90 tabs 05/02/23 07/21/23 Rx diltiazem HCl 120 mg 120 mg PO DINNER heart 05/23/23 07/21/23 History capsule,extended release 24 hr (Cartia XT) losartan 25 mg tablet 25 mg PO QHS #90 tabs 10/03/23 Unknown Rx metoprolol succinate 25 mg 25 mg PO DAILY HEART #90 tabs 10/28/23 Unknown Rx tablet,extended release 24 hr lamotrigine 150 mg tablet 150 mg PO BID #180 tabs 12/05/23 Unknown Rx Allergy/AdvReac Type Severity Reaction Status Date / Time levetiracetam Allergy Other Verified 09/27/23 15:22 nickel Allergy Rash Verified 09/27/23 15:22 sulfamethoxazole (From Allergy Itching Verified 09/27/23 15:22 Bactrim) trimethoprim (From Bactrim) Allergy Itching Verified 09/27/23 15:22 codeine AdvReac Nausea Verified 09/27/23 15:22 milk AdvReac Nausea/Vom/ Verified 09/27/23 15:22 Diarrhea Family History Father No problems noted. Mother No problems noted. Surgical History History of left hip hemiarthroplasty History of total right knee replacement (TKR) S/P total knee arthroplasty Hx of fusion of cervical spine Hx of cystoscopy Amputated toe of right foot History of hysterectomy History of tonsillectomy Deviated septum History of appendectomy History of cholecystectomy History of neck surgery Social History household members: spouse Smoking Status: Former smoker alcohol intake: never substance use type: does not use caffeine: No what type of physical activity do you participate in: other details: physical therapy seatbelt use: always do you feel safe at home: Yes ROS ROS ED ROS Narrative Denies recent illness. Review of Systems ROS Unobtainable: Denies due to encephalopathy Constitutional Constitutional ED: Denies chills or fever(s) Eyes Eyes: Denies blurry vision ENT ENT ED: Denies ear pain Cardiovascular Cardiovascular: Denies chest pain Respiratory/Chest Respiratory/Chest: Denies cough Gastrointestinal Gastrointestinal: Denies abdominal pain Genitourinary Genitourinary ED: Denies dysuria or hematuria Musculoskeletal Musculoskeletal: Denies arthralgias Integumentary Denies abscess Neurologic Neurologic: Denies headache(s) Psychiatric Psychiatric: Denies anxiety Endocrine Endocrinology: Denies polydipsia Hematologic/Lymphatic Hematologic/Lymphatic: Denies easy bleeding Allergic/Immunologic Allergic/Immunologic ED: Denies mouth swelling EXAM Physical Exam Narrative Exam Narrative: Well-appearing older female. Vital signs stable afebrile. Pulse ox 90% on room Anaprox. H EENT exam pupils round react light. No facial trauma. I do not see any hematomas or lacerations or tenderness on her scalp. C-spine midline. Trachea midline. She complains of tenderness along the base of her skull. Back there is abrasion on her left upper back just to the left of her upper thoracic spine. The spine itself is nontender. No bruising. Chest wall and ribs nontender. Lungs clear. Heart regular rhythm rate about 70. Abdomen soft nontender. Pelvic girdle intact. She is moving all 4 extremities. Normal drug safety associate strength. Normal dorsi plantarflexion. There is no shortening or rotation either hip. She can flex extend about the hips and knees. She has a skin tear to left forearm with the squad is bandaged. There is no bony deformity or tenderness. Neurologically she is awake and alert. Answering questions and following commands. Const Vital Signs: 12/06/23 11:10 12/06/23 11:16 12/06/23 13:06 Temperature 97.6 F L Temperature Source Oral Pulse Rate 74 71 Respiratory Rate 20 H 17 Respiratory Effort Normal Respiratory Depth Normal Respiratory Pattern Normal Blood Pressure 115/78 101/68 Blood Pressure Mean 90 79 Pulse Ox 98 98 Oxygen Delivery Method Room Air Room Air Room Air Positive well nourished and well developed; Negative for cachectic, contractures or unkempt General Appearance ED: well developed and NAD; Negative for unkempt, cachectic or contractures Nutritional Appearance: Negative for cachectic HEENT Reports normocephalic Negative for atraumatic, contusion, hematoma or tenderness Eyes PERRL and EOMs intact bilaterally General Eye ED: Negative for pale conjunctiva or scleral icterus Neck full ROM, no lymphadenopathy and supple General: Negative for tenderness Chest Wall inspection of chest normal and palpation of chest normal Resp normal respiratory effort, no retractions and clear to auscultation bilaterally Effort and Inspection: Negative for pain with movement Auscultation: Negative for rales, rhonchi or wheezes Cardio regular rate, regular rhythm, S1 normal heart sound, S2 normal heart sound and no murmurs Rate: Negative for bradycardia or tachycardic Rhythm: Negative for abnormal rhythm Bruits: Negative for other GI non-tender, non-distended and no masses Inspection: Negative for abdominal distention Auscultation: normoactive bowel sounds Palpation: soft; Negative for guarding or rebound tenderness present Back/Spine no CVA tenderness Back/Spine Narrative: Abrasion upper back lateral to the thoracic spine. No spinal tenderness. General Back: Negative for CVA tenderness Cervical Spine: Negative for cervical spine tenderness Thoracic Spine / Upper Back: Negative for ROM limited, pain with ROM or thoracic spinal tenderness Lumbar Spine / Lower Back: Negative for lumbar spinal tenderness Neuro oriented x3 Yang Coma Scale: document GCS findings Spontaneous Obeys Commands Oriented 15 Sensorium / Orientation: alert, oriented to person, oriented to place and oriented to time Cranial Nerves: Negative for CN normal except as noted Psych Appearance: Negative for unkempt Mood & Affect: Negative for depressed, anxious or tearful Skin Lesions: no lesions Rashes: no rashes Trauma: abrasion MDM MDM MDM Narrative Medical decision making narrative: 83-year-old female tripped and fell at home. CAT scan of her head neck. I am in and get screening labs [place]unning a CBC and chemistry. Jax for nausea. Repeat exam and 2:07 PM patient doing well. She said she is sore but does not have any new areas of complaints. Chest and ribs are nontender. Abdomen soft. Pelvic girdle is intact. She is moving all 4 extremities. There is no areas of bony tenderness or deformity in her upper or lower extremities. Her back other than the one abrasion there is no other new areas or signs of trauma. We discussed her CAT scan and lab results. Nurses a walker if she does okay she will be discharged home. I did tell her and her to hold her Eliquis today and they can restart it tomorrow. Return if she is feeling worse or develops headache. We did discuss The risk of a delayed intracranial bleed. History & Record Review Discussion w/independent historian: Patient Lab Data Attestation: I reviewed the patient's lab results. Lab results narrative: CBC unremarkable. White count 8. H&H 13 and 41. Platelets 264. Electrolytes show a gap of 8. BUN 29 creatinine 0.9. Glucose 173. CAT scan of the brain and neck showed chronic changes but no acute bleed or fracture. Read by the radiologist. Labs: Laboratory Results - last 24 hr 12/06/23 11:30 WBC 8.0 RBC 4.05 L Hgb 13.3 Hct 41.4 MCV 102.2 H MCH 32.8 H MCHC 32.1 RDW Std Deviation 50.5 H RDW Coeff of Robert 13.3 Plt Count 264 MPV 9.7 Immature Gran % (Auto) 0.400 Neut % (Auto) 70.1 H Lymph % (Auto) 17.8 L Brule % (Auto) 7.3 Eos % (Auto) 3.5 Baso % (Auto) 0.9 Absolute Neuts (auto) 5.6 Absolute Lymphs (auto) 1.42 Nucleated RBC % 0 Sodium 138 Potassium 3.9 Chloride 104 Carbon Dioxide 26.0 Anion Gap 8 BUN 29 H Creatinine 0.92 Estim Creat Clear Calc 49.16 Est GFR (MDRD) Af Amer 75 Est GFR (MDRD) Non-Af 62 BUN/Creatinine Ratio 31.7 H Glucose 173 H Calcium 9.4 Radiography Diagnostic Testing: Clinical Impression(s) from Imaging Studies Brain CT 12/06/23 11:24 IMPRESSION: Chronic involutional changes of the brain. Electronically Signed: Amol Hannon MD at 11:54 EDT , Cervical Spine CT 12/06/23 11:24 IMPRESSION: Multilevel degenerative changes, as described above. Electronically Signed: Amol Hannon MD at 11:56 EDT , Discharge Plan Triage Chief Complaint: Fall ED Provider: Benjamin Quigley Dx/Rx/DC Orders Clinical Impression: Fall, Head injury, Cervical muscle strain, Chronic anticoagulation, Back contusion Instructions: ED Head Injury (Adult) Prescriptions: No Action duloxetine 30 mg capsule,delayed release(DR/EC) 30 mg PO QHS cyanocobalamin (vitamin B-12) [Vitamin B-12] 1,000 mcg tablet 1,000 mcg PO DAILY furosemide 40 mg tablet 40 mg PO DAILY Rx Instructions: AM Eliquis 2.5 mg tablet 2.5 mg PO BID Qty: 180 3RF donepezil 10 mg tablet 10 mg PO QHS Qty: 90 1RF diltiazem HCl [Cartia XT] 120 mg capsule,extended release 24hr 120 mg PO DINNER nitroglycerin 0.4 mg Tablet, Sublingual 0.4 mg sublingual Q5M PRN (Reason: Cardiac/Chest Pain) Qty: 0 0RF oxycodone 5 mg Tablet 5 mg PO Q4H PRN PRN (Reason: Pain Score 6-10) 7 Days Qty: 28 0RF aspirin [Adult Low Dose Aspirin] 81 mg tablet,delayed release (DR/EC) 81 mg PO DAILY losartan 25 mg tablet 25 mg PO QHS Qty: 90 3RF metoprolol succinate 25 mg tablet extended release 24 hr 25 mg PO DAILY Qty: 90 3RF lamotrigine 150 mg tablet 150 mg PO BID Qty: 180 1RF Primary Care Provider: Nahomy Bettencourt Referrals: Nahomy Bettencourt MD [Primary Care Provider] - 3-5 Days if not improving Activity Restrictions/Additional Instructions: Ice to all sore areas. Tylenol for pain. The CAT scan of your brain and neck looks good. No acute serious injury. Follow-up with your doctor if not improving or go to be sore the next several days. Return if severe headache, intractable vomiting or not acting herself. Hold your Eliquis, your blood thinner, dose today. You may restart it tomorrow. Print Language: Czech Disposition Disposition: Home, Self Care
[2023-12-06] MEDS: Ondansetron 4 MG/2 ML Vial IV (11:35)
[2023-12-06 11:48] LABS: Absolute Lymphocyte Count 1.42 X10^3/uL (0.83-4.51); Absolute Neutrophil Count 5.6 X10^3/uL (2.0-7.7); Basophil# 0.07 X10^3/uL; Basophil% 0.9 % (0-1); Eosinophil# 0.28 X10^3/uL; Eosinophils% 3.5 % (0-5); Hematocrit 41.4 % (37-47); Hemoglobin 13.3 g/dL (12.0-15.0); Lymphocyte # 1.42 X10^3/ul (0.83-4.51); Lymphocyte % 17.8 % (19-41); Mean Corp Hgb Conc 32.1 g/dL (32-36); Mean Corpuscular Hgb 32.8 pg (27.0-32.0); Mean Corpuscular Volume 102.2 fL (81-99); Mean Platelet Vol. 9.7 fl (6.2-12.0); Monocyte# 0.58 X10^3/uL; Monocyte% 7.3 % (0-10); NRBC Flagged by Analyzer 0 % (0-5); Neutrophil % 70.1 % (47-70); Platelet Count 264 K/mm3 (150-450); RBC Distribution Width CV 13.3 % (11.6-14.6); RBC Distribution Width SD 50.5 fl (35.1-43.9); Red Blood Count 4.05 M/mm3 (4.2-5.4)
[2023-12-06 12:02] LABS: Anion Gap 8 (5-15); BUN 29 mg/dL (7-18); BUN/Creat Ratio 31.7 RATIO (10-20); Calcium,Total 9.4 mg/dL (8.5-10.1); Chloride 104 mmol/L (98-107); Creatinine, Serum 0.92 mg/dL (0.55-1.02); EST Glomerular Filtration Rate 62 mL/min (>60); Est Glom Filt Rate - Afr Amer 75 mL/min (>60); Estimated Creatinine Clearance 49.16 ml/min; Glucose 173 mg/dL (74-106); Potassium 3.9 mmol/L (3.5-5.1); Sodium Level 138 mmol/L (136-145)
--- NOTE | 2023-12-06 12:09 | ED.RN ---
ATTEMPTED TO CALL JAKE (), NO ANSWER. LEFT VOICEMAIL WITH CALL BACK NUMBER
[2023-12-06 13:06] VITALS: BP 101/68; PULSE 71; RESP 17; O2SAT 98
[2023-12-06 14:31] VITALS: BP 100/69; PULSE 70; RESP 18; TEMP 36.6; O2SAT 98
== END 2023-12-06 14:32 | disposition home or self-care (01) ==
PROVIDERS: Emergency Provider Emergency Medicine; PCP Family Medicine; Visit Provider Emergency Medicine
DX: S09.90XA Unspecified injury of head, initial encounter (principal); G20.A1 Parkinson's disease without dyskinesia, without mention of fluctuations; I11.0 Hypertensive heart disease with heart failure; I50.9 Heart failure, unspecified; F02.80 Dementia in other diseases classified elsewhere, unspecified severity, without behavioral disturbance, psychotic disturbance, mood disturbance, and anxiety; I42.9 Cardiomyopathy, unspecified; E11.42 Type 2 diabetes mellitus with diabetic polyneuropathy; S16.1XXA Strain of muscle, fascia and tendon at neck level, initial encounter; W18.09XA Striking against other object with subsequent fall, initial encounter; S51.812A Laceration without foreign body of left forearm, initial encounter; S20.222A Contusion of left back wall of thorax, initial encounter; I25.10 Atherosclerotic heart disease of native coronary artery without angina pectoris; Z79.01 Long term (current) use of anticoagulants; Z79.82 Long term (current) use of aspirin; Z79.899 Other long term (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; Z87.891 Personal history of nicotine dependence
CPT/HCPCS: 70450; 72125; 80048; 85025; 96374; 99282; A4216; J2405

== ENCOUNTER → 2023-12-14 | Outpatient (CLI) | payer MEDICARE, SELFPAY ==
[2023-12-14 14:39] LABS: Anion Gap 7 (5-15); BUN 23 mg/dL (7-18); BUN/Creat Ratio 22.5 RATIO (10-20); Calcium,Total 9.5 mg/dL (8.5-10.1); Chloride 105 mmol/L (98-107); Creatinine, Serum 1.02 mg/dL (0.55-1.02); EST Glomerular Filtration Rate 55 mL/min (>60); Est Glom Filt Rate - Afr Amer 66 mL/min (>60); Glucose 133 mg/dL (74-106); Potassium 3.7 mmol/L (3.5-5.1); Sodium Level 137 mmol/L (136-145)
[2023-12-19 17:07] LABS: Lamotrigine (Lamictal) Level 8.2 ug/mL (2.0-20.0)
== END | disposition home or self-care (01) ==
LOC: LAB 13:50
PROVIDERS: PCP Family Medicine; Referring Provider Psychiatry & Neurology Neurology; Visit Provider Psychiatry & Neurology Neurology
DX: G40.909 Epilepsy, unspecified, not intractable, without status epilepticus (principal)
CPT/HCPCS: 36415; 80048; 82140; 82542

== ENCOUNTER → 2023-12-21 | Outpatient (CLI) | payer MEDICARE, SELFPAY ==
[2023-12-21 13:51] LABS: Bacteria 0 SEEN /hpf (None Seen); Mucous, Urine 0 SEEN /hpf (<or=2+); Red Blood Cells-Urine 0 SEEN /hpf (0-5)
[2023-12-21 15:21] LABS: Color, Urine Yellow (Yellow); Glucose, Dipstick Normal (Normal); Ketone-Dipstick Negative (Negative); Leukocyte Esterase-Dipstick 25 /ul (Negative); Nitrite-Dipstick Negative (Negative); Occult Blood-Urine 10 /ul (Negative); Protein-Dipstick Negative (Negative); Urine Bilirubin Dipstick Negative (Negative); Urine Clarity Clear (Clear); Urine Urobilinogen Normal (Normal)
[2023-12-21 15:44] LABS: Hyaline Cast 0-5 SEEN /lpf (0-5)
[2023-12-21 15:45] LABS: Squamous Epithelial Cells - UA 0-5 SEEN /hpf (5-10); White Blood Cells 0-5 SEEN /hpf (0-5)
== END | disposition home or self-care (01) ==
LOC: MTLAB 13:47
PROVIDERS: PCP Family Medicine; Referring Provider Psychiatry & Neurology Neurology; Visit Provider Psychiatry & Neurology Neurology
DX: G40.909 Epilepsy, unspecified, not intractable, without status epilepticus (principal)
CPT/HCPCS: 81001; 87086; 87088

== ENCOUNTER 2024-01-12 22:20 | Emergency (ER) | payer MEDICARE, SELFPAY ==
[2024-01-12 22:20] VITALS: BP 112/53; PULSE 68; RESP 18; TEMP 36.5; O2SAT 95; BMI 28.8
--- NOTE | 2024-01-12 22:39 | CT_ITS ---
STUDY: CT BRAIN WITHOUT CONTRAST REASON FOR EXAM: Female, 83 years old. FALL RADIATION DOSAGE (If Supplied By Facility): CTDIvol = ( 44.99 ) mGy, DLP = ( 829.85 ) mGycm TECHNIQUE: Transaxial CT imaging of the brain was performed without administration of intravenous contrast material. Individualized dose optimization techniques were used for this CT. The protocol utilizes one or more of the following dose reduction techniques: automated exposure control, adjustment of mA and/or kV according to patient size,and/or use of iterative reconstruction technique. COMPARISON: CT brain December 06, 2023 FINDINGS: Normal soft tissue structures. Normal calvarium. Normal size ventricles and extra-axial spaces for the patient''s age. Normal white matter tracts of the cerebral hemispheres. Normal basal ganglia and thalami. Normal brainstem. Normal cerebellum. There is no intracranial hemorrhage. There are no findings of an acute ischemic infarction. Normal visualized paranasal sinuses. CT/Brain/Head without Contrast IMPRESSION: Normal unenhanced CT scan of the brain. Electronically Signed: Luis Arana MD at 23:33 EDT ,
--- NOTE | 2024-01-12 22:39 | CT_ITS ---
STUDY: CT CERVICAL SPINE WITHOUT CONTRAST REASON FOR EXAM: Female, 83 years old. FALL RADIATION DOSAGE (If Supplied By Facility): CTDIvol = ( 22.72 ) mGy, DLP = ( 446.70 ) mGycm TECHNIQUE: High resolution transaxial imaging was performed without contrast material. Sagittal and coronal images were reconstructed. Individualized dose optimization techniques were used for this CT. The protocol utilizes one or more of the following dose reduction techniques: automated exposure control, adjustment of mA and/or kV according to patient size,and/or use of iterative reconstruction technique. COMPARISON: CT cervical spine December 04, 2023 FINDINGS: Diffuse demineralization. Normal craniovertebral junction. Normal anterior atlantoaxial articulation. Normal odontoid process. Normal cervical lordosis. Normal vertebral bodies and posterior osseous elements. C2-3: Normal endplates. Normal disc height and morphology. Normal central canal and intervertebral neuroforamina. C3-4: Normal endplates. Normal disc height and morphology. Normal central canal and narrowed left intervertebral neuroforamina. C4-5: Normal endplates. Normal disc height and morphology. Normal central canal and narrowed left intervertebral neuroforamina. C5-6: Normal endplates. Ankylosed disc height and morphology. Slightly narrowed central canal and intervertebral neuroforamina. C6-7: Normal endplates. Ankylosed disc height and morphology. Normal central canal and intervertebral neuroforamina. C7-T1: Normal endplates. Ankylosis disc height and morphology. Normal central canal and narrowed right intervertebral neuroforamina. Normal visualized soft tissue structures. Calcified plaque in the carotids. CT/Spine Cervical without Contras IMPRESSION: Demineralization decreases sensitivity but no fractures noted. 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 Electronically Signed: Luis Arana MD at 23:44 EDT ,
--- NOTE | 2024-01-12 22:50 | EDS_ITS ---
HPI History of Present Illness Chief Complaint: Head Injury Informant: patient and EMS Narrative Narrative: Patient is a 83-year-old female from home with past medical history of epilepsy diabetes heart failure and paroxysmal A-fib currently on Eliquis. She states that roughly 1 hour prior to arrival she was bringing her dog in from outside when she slipped and fell striking her back and head. She denies any loss of consciousness. She states that her heard the fall and was able to call EMS quickly and she has not been on the ground for long. She reports pain in her head and neck at this time. And with concern for underlying trauma such as brain bleed or fracture especially as she is on anticoagulation she was brought in for evaluation [facility] Medical History Mitral regurgitation Aortic valve stenosis with insufficiency Atrial fibrillation Preoperative cardiovascular examination Congestive heart failure (CHF) Dementia Parkinson's disease Rotator cuff tear arthropathy of left shoulder Tremor Cardiomyopathy Aortic stenosis Pericardial effusion Anxiety Depression Hypertension Diabetic neuropathy Acute systolic congestive heart failure Debility Pleural effusion due to CHF (congestive heart failure) Cellulitis of chest wall H/O cardiac murmur Depression Diabetic polyneuropathy Diabetes mellitus Chronic constipation Vitamin D deficiency Hypertension Inability to ambulate due to knee Debility Acute postoperative pain of right knee Wears glasses History of steroid therapy Diabetes Ambulates with cane Arthritis Back pain Injury of back Injury of head and neck Epilepsy Dietary restriction Former smoker Chronic cough Neuropathy History of pain when walking History of stress test History of echocardiogram Cardiology follow-up encounter History of atrial fibrillation Hx of vaginal delivery Hx of back injury Atherosclerotic heart disease of [place] coronary artery without angina pectoris Abnormal stress test History of left heart catheterization (LHC) (~06/02/22) Essential hypertension Other retirement (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 Neuropathy, diabetic Nephrolithiasis Hypertension DM2 (diabetes mellitus, type 2) Paroxysmal atrial fibrillation Home Medications ?Medication ?Instructions ?Recorded ?Last Taken ?Type duloxetine 30 mg capsule,delayed 30 mg PO QHS NEUROPATHY 09/22/20 07/21/23 History release nitroglycerin 0.4 mg sublingual 0.4 mg sublingual Q5M PRN 06/11/22 Unknown Rx tablet Cardiac/Chest Pain #0 tabs cyanocobalamin (vitamin B-12) 1,000 mcg PO DAILY supplement 08/10/22 07/21/23 History 1,000 mcg tablet (Vitamin B-12) oxycodone 5 mg tablet 5 mg PO Q4H PRN PRN Pain Score 11/24/22 Unknown Rx 6-10 7 days #28 tabs apixaban 2.5 mg tablet (Eliquis) 2.5 mg PO BID #180 tabs 01/04/23 07/21/23 Rx furosemide 40 mg tablet 40 mg PO DAILY Diuretic 01/04/23 07/21/23 History aspirin 81 mg tablet,delayed 81 mg PO DAILY 04/08/23 06/23/23 09:00 History release (Adult Low Dose Aspirin) donepezil 10 mg tablet 10 mg PO QHS #90 tabs 05/02/23 07/21/23 Rx diltiazem HCl 120 mg 120 mg PO DINNER heart 05/23/23 07/21/23 History capsule,extended release 24 hr (Cartia XT) losartan 25 mg tablet 25 mg PO QHS #90 tabs 10/03/23 Unknown Rx metoprolol succinate 25 mg 25 mg PO DAILY HEART #90 tabs 10/28/23 Unknown Rx tablet,extended release 24 hr lamotrigine 200 mg tablet See Rx Instructions .Route 12/20/23 Unknown Rx .COMPLEX #60 tabs pomegran fruit xt-pomegra seed 250 cap PO 01/12/24 Unknown History mg capsule potassium chloride 20 mEq 20 meq PO DAILY 01/12/24 Unknown History tablet,extended release(part/cryst) spironolactone 25 mg tablet 25 mg PO DAILY 01/12/24 Unknown History Allergy/AdvReac Type Severity Reaction Status Date / Time levetiracetam Allergy Other Verified 01/12/24 22:25 nickel Allergy Rash Verified 01/12/24 22:25 sulfamethoxazole (From Allergy Itching Verified 01/12/24 22:25 Bactrim) trimethoprim (From Bactrim) Allergy Itching Verified 01/12/24 22:25 codeine AdvReac Nausea Verified 01/12/24 22:25 milk AdvReac Nausea/Vom/ Verified 01/12/24 22:25 Diarrhea Family History Father No problems noted. Mother No problems noted. Surgical History History of left hip hemiarthroplasty History of total right knee replacement (TKR) S/P total knee arthroplasty Hx of fusion of cervical spine Hx of cystoscopy Amputated toe of right foot History of hysterectomy History of tonsillectomy Deviated septum History of appendectomy History of cholecystectomy History of neck surgery Social History household members: spouse Smoking Status: Former smoker alcohol intake: never substance use type: does not use caffeine: No what type of physical activity do you participate in: other details: physical therapy seatbelt use: always do you feel safe at home: Yes ROS ROS ED Constitutional Constitutional ED: Denies chills or fever(s) Eyes Eyes: Denies blurry vision or change in vision ENT ENT ED: Denies sore throat Cardiovascular Cardiovascular: Denies chest pain or racing heartbeat Respiratory/Chest Respiratory/Chest: Denies cough or dyspnea Gastrointestinal Gastrointestinal: Denies abdominal pain, diarrhea, nausea or vomiting Genitourinary Genitourinary ED: Denies dysuria Musculoskeletal Musculoskeletal: Reports back pain and neck pain Integumentary Reports Abrasions Neurologic Neurologic: Reports headache(s); Denies paresthesias or weakness Hematologic/Lymphatic Hematologic/Lymphatic: Reports easy bleeding and easy bruising EXAM Physical Exam Const Vital Signs: 01/12/24 22:20 01/12/24 22:23 Temperature 97.7 F L Temperature Source Oral Pulse Rate 68 Respiratory Rate 18 Respiratory Effort Normal Blood Pressure 112/53 L Blood Pressure Mean 72 Pulse Ox 95 Oxygen Delivery Method Room Air Room Air Positive well nourished, well developed and obese General Appearance ED: well developed Nutritional Appearance: obese HEENT HEENT Narrative: Patient has a 2 x 2 cm hematoma to the occipital portion of the scalp consistent with fall Otherwise no signs of depressed or basilar skull fracture Eyes PERRL and EOMs intact bilaterally Eyes Narrative: No hyphema noted Neck supple Neck Narrative: No bony deformity or step-off of the cervical spine but there is midline pain with palpation Chest Wall Chest Narrative: Reproducible right anterior lateral chest wall pain on palpation rib regions 4-7 without bony deformity or crepitance Resp normal respiratory effort and clear to auscultation bilaterally Cardio regular rate and regular rhythm GI non-tender and non-distended GI Narrative: Abdomen is obese soft nontender and nondistended with normal active bowel sounds. Patient has a ventral hernia which is chronic per patient and reducible in nature. No voluntary guarding or rigidity. No pulsatile mass. No hematoma noted. Auscultation: normoactive bowel sounds Palpation: soft Back/Spine Back/Spine Narrative: No bony deformity or step-off of the thoracic or lumbar spine but there is midline upper thoracic pain with palpation Extremity Extremity Narrative: Pelvis is stable there is no shortening or external rotation of either lower extremity No pain with palpation of the pubic rami region There is soft tissue swelling to the dorsal aspect of the right hand over top the second metacarpal Patient otherwise is able to move all extremities without difficulty Neuro oriented x3, CN's II-XII intact bilaterally and no sensory deficits noted Sensorium / Orientation: alert Psych mental status grossly normal Skin Skin Narrative: Hematoma to the occipital portion of the scalp as documented above with soft tissue swelling/ecchymosis over top of the right hand MDM MDM MDM Narrative Medical decision making narrative: Patient arrived to the ER with stable vitals and reported a mechanical fall so there was no need for cardiac or syncope workup. However she is on Eliquis and with concern for skull fracture versus traumatic subarachnoid or subdural hemorrhage as well as potential cervical compression fracture CTs were obtained. There was also concern for potential right hand fracture versus rib fracture or pneumothorax or thoracic spine compression fracture. Therefore x-rays were ordered. All imaging studies revealed no signs of acute trauma. The patient ambulated with her walker and walked with a steady gait as she does at home. Therefore at this time with no signs of trauma on imaging and the fact patient is able to ambulate at her baseline gait there is no need for further workup and she is otherwise safe for discharge. History & Record Review Discussion w/independent historian: EMS personnel and Patient Radiography Diagnostic Testing: Right hand x-ray as interpreted by the emergency medicine physician reveals osteoarthritic changes without acute fracture or dislocation Thoracic spine x-ray as interpreted by the emergency medicine physician reveals osteoarthritic changes without acute compression fracture or spondylolisthesis Right rib series as interpreted by the emergency medicine physician reveals no pneumothorax or hemothorax or acute rib fracture Discharge Plan Triage Chief Complaint: Head Injury ED Provider: Dieter Mohan Dx/Rx/DC Orders Clinical Impression: Closed head injury, Hematoma of occipital region of scalp, Accidental fall, Epilepsy, 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, Paroxysmal atrial fibrillation Instructions: ED Head Injury (Adult), ED Hematoma Prescriptions: No Action duloxetine 30 mg capsule,delayed release(DR/EC) 30 mg PO QHS cyanocobalamin (vitamin B-12) [Vitamin B-12] 1,000 mcg tablet 1,000 mcg PO DAILY furosemide 40 mg tablet 40 mg PO DAILY Rx Instructions: AM Eliquis 2.5 mg tablet 2.5 mg PO BID Qty: 180 3RF donepezil 10 mg tablet 10 mg PO QHS Qty: 90 1RF diltiazem HCl [Cartia XT] 120 mg capsule,extended release 24hr 120 mg PO DINNER nitroglycerin 0.4 mg Tablet, Sublingual 0.4 mg sublingual Q5M PRN (Reason: Cardiac/Chest Pain) Qty: 0 0RF oxycodone 5 mg Tablet 5 mg PO Q4H PRN PRN (Reason: Pain Score 6-10) 7 Days Qty: 28 0RF aspirin [Adult Low Dose Aspirin] 81 mg tablet,delayed release (DR/EC) 81 mg PO DAILY potassium chloride 20 mEq tablet,ER particles/crystals 20 meq PO DAILY spironolactone 25 mg tablet 25 mg PO DAILY pomegran fruit xt-pomegra seed 250 mg capsule PO losartan 25 mg tablet 25 mg PO QHS Qty: 90 3RF metoprolol succinate 25 mg tablet extended release 24 hr 25 mg PO DAILY Qty: 90 3RF lamotrigine 200 mg tablet See Rx Instructions .ROUTE .COMPLEX Qty: 60 2RF Rx Instructions: Take lamotrigine 150 mg every morning orally (from prior prescription) and lamotrigine 200 mg every evening for 1 week then 200 mg twice daily Primary Care Provider: Nahomy Bettencourt Referrals: Nahomy Bettencourt MD [Primary Care Provider] - Activity Restrictions/Additional Instructions: Please continue all of your home medications as directed by your family doctor. Use Tylenol for pain control and return to the ER should you have any further concerns or worsening of symptoms Print Language: Setswana Disposition Disposition: Home, Self Care
--- NOTE | 2024-01-12 23:10 | RAD_ITS ---
STUDY: X-RAY - RIGHT HAND REASON FOR EXAM: Female, 83 years old. pain TECHNIQUE: 3 view(s) of the hand. COMPARISON: November 07, 2022 FINDINGS: Normal radiocarpal articulation. Normal distal radioulnar joint. Normal visualized carpal bones. Normal carpal articulations Normal carpometacarpal articulation of the thumb. Normal second through fifth carpometacarpal joints. Normal metacarpi. Normal metacarpophalangeal joint of the thumb. Normal interphalangeal joint of the thumb. Normal proximal and distal phalanges of the thumb. Normal metacarpophalangeal joints of the second through fifth fingers. Normal proximal and distal interphalangeal joints of the second through fifth fingers. Normal phalanges of the second through fifth fingers. The soft tissue structures are unremarkable. RAD/Hand Min 3 Views IMPRESSION: Normal x-ray examination of the hand. Electronically Signed: Luis Arana MD at 0:31 EDT ,
--- NOTE | 2024-01-12 23:10 | RAD_ITS ---
STUDY: X-RAY - UNILATERAL RIBS ( RIGHT ) WITH CHEST REASON FOR EXAM: Female, 83 years old. pain TECHNIQUE - RIBS: 4 view(s) of the ribs. TECHNIQUE - CHEST: 1 view frontal COMPARISON: Chest x-ray April 11, 2023. FINDINGS - RIBS: Normal visualized ribs without a demonstrated fracture. FINDINGS - CHEST: Subsegmental atelectasis left base. There is no demonstrated pleural abnormality. Cardiomegaly. Normal mediastinum and saad. Normal visualized pulmonary arteries. Normal visualized aortic arch and descending thoracic aorta. Normal visualized thoracic spine. There is degenerative osteoarthritis of the bilateral shoulders. There is no demonstrated abnormality of the visualized soft tissue structures of the upper abdomen. RAD/Ribs Uni Min 3V w/PA Chest IMPRESSION: RIBS: Normal x-ray examination of the ribs. CHEST: No acute disease Electronically Signed: Luis Arana MD at 0:35 EDT ,
--- NOTE | 2024-01-12 23:10 | RAD_ITS ---
STUDY: X-RAY - THORACIC SPINE REASON FOR EXAM: Female, 83 years old. pain TECHNIQUE: 3 view(s) of the thoracic spine were obtained. COMPARISON: None. FINDINGS: Normal kyphosis of the thoracic spine. Mild scoliosis. There is multilevel endplate spondylosis of the thoracic vertebrae. There is multilevel disc space narrowing of the thoracic spine. The soft tissue structures are unremarkable. RAD/Thoracic Spine 3 Views IMPRESSION: Spondylosis and multilevel degenerative disc disease Electronically Signed: Luis Arana MD at 0:33 EDT ,
[2024-01-12] MEDS: Acetaminophen 500 MG Tablet 1000 MG PO (23:31)
[2024-01-13 00:43] VITALS: BP 114/63; PULSE 76; RESP 16; TEMP 36.6; O2SAT 97
== END 2024-01-13 00:43 | disposition home or self-care (01) ==
PROVIDERS: Emergency Provider Emergency Medicine; PCP Family Medicine; Visit Provider Emergency Medicine
DX: S00.03XA Contusion of scalp, initial encounter (principal); G20.A1 Parkinson's disease without dyskinesia, without mention of fluctuations; I11.0 Hypertensive heart disease with heart failure; I50.22 Chronic systolic (congestive) heart failure; I48.0 Paroxysmal atrial fibrillation; G40.909 Epilepsy, unspecified, not intractable, without status epilepticus; I42.9 Cardiomyopathy, unspecified; E11.42 Type 2 diabetes mellitus with diabetic polyneuropathy; I08.0 Rheumatic disorders of both mitral and aortic valves; M54.2 Cervicalgia; Y92.009 Unspecified place in unspecified non-institutional (private) residence as the place of occurrence of the external cause; W01.10XA Fall on same level from slipping, tripping and stumbling with subsequent striking against unspecified object, initial encounter; I25.10 Atherosclerotic heart disease of native coronary artery without angina pectoris; Z79.82 Long term (current) use of aspirin; Z79.01 Long term (current) use of anticoagulants; Z79.899 Other long term (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; Z87.891 Personal history of nicotine dependence
CPT/HCPCS: 70450; 71101; 72072; 72125; 73130; 99282

== ENCOUNTER 2024-02-02 13:54 | Inpatient (IN) | payer MEDICARE, SELFPAY ==
[2024-02-02] VITALS (7 sets, daily range): BP systolic 92–146; BP diastolic 52–68; PULSE 72–90; RESP 17–20; TEMP 36.6; O2SAT 92–96; BMI 27.9
--- NOTE | 2024-02-02 14:02 | ED.VIS.FALL ---
HPI HPI - Fall History of Present Illness Chief Complaint: Fall PFSH PFS Medical History Mitral regurgitation Aortic valve stenosis with insufficiency Atrial fibrillation Preoperative cardiovascular examination Congestive heart failure (CHF) Dementia Parkinson's disease Rotator cuff tear arthropathy of left shoulder Tremor Cardiomyopathy Aortic stenosis Pericardial effusion Anxiety Depression Hypertension Diabetic neuropathy Acute systolic congestive heart failure Debility Pleural effusion due to CHF (congestive heart failure) Cellulitis of chest wall H/O cardiac murmur Depression Diabetic polyneuropathy Diabetes mellitus Chronic constipation Vitamin D deficiency Hypertension Inability to ambulate due to knee Debility Acute postoperative pain of right knee Wears glasses History of steroid therapy Diabetes Ambulates with cane Arthritis Back pain Injury of back Injury of head and neck Epilepsy Dietary restriction Former smoker Chronic cough Neuropathy History of pain when walking History of stress test History of echocardiogram Cardiology follow-up encounter History of atrial fibrillation Hx of vaginal delivery Hx of back injury Atherosclerotic heart disease of [place] coronary artery without angina pectoris Abnormal stress test History of left heart catheterization (LHC) (~06/02/22) Essential hypertension 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 Neuropathy, diabetic Nephrolithiasis Hypertension DM2 (diabetes mellitus, type 2) Paroxysmal atrial fibrillation Home Medications ?Medication ?Instructions ?Recorded ?Last Taken ?Type duloxetine 30 mg capsule,delayed 30 mg PO QHS NEUROPATHY 09/22/20 07/21/23 History release nitroglycerin 0.4 mg sublingual 0.4 mg sublingual Q5M PRN 06/11/22 Unknown Rx tablet Cardiac/Chest Pain #0 tabs cyanocobalamin (vitamin B-12) 1,000 mcg PO DAILY supplement 08/10/22 07/21/23 History 1,000 mcg tablet (Vitamin B-12) oxycodone 5 mg tablet 5 mg PO Q4H PRN PRN Pain Score 11/24/22 Unknown Rx 6-10 7 days #28 tabs apixaban 2.5 mg tablet (Eliquis) 2.5 mg PO BID #180 tabs 01/04/23 07/21/23 Rx furosemide 40 mg tablet 40 mg PO DAILY Diuretic 01/04/23 07/21/23 History aspirin 81 mg tablet,delayed 81 mg PO DAILY 04/08/23 06/23/23 09:00 History release (Adult Low Dose Aspirin) diltiazem HCl 120 mg 120 mg PO DINNER heart 05/23/23 07/21/23 History capsule,extended release 24 hr (Cartia XT) losartan 25 mg tablet 25 mg PO QHS #90 tabs 10/03/23 Unknown Rx metoprolol succinate 25 mg 25 mg PO DAILY HEART #90 tabs 10/28/23 Unknown Rx tablet,extended release 24 hr pomegran fruit xt-pomegra seed 250 cap PO 01/12/24 Unknown History mg capsule potassium chloride 20 mEq 20 meq PO DAILY 01/12/24 Unknown History tablet,extended release(part/cryst) divalproex 250 mg tablet,delayed 250 mg PO BID #60 tabs 01/19/24 Unknown Rx release donepezil 10 mg tablet 10 mg PO QHS #90 tabs 01/19/24 Unknown Rx lamotrigine 200 mg tablet 200 mg PO BID #60 tabs 01/19/24 Unknown Rx spironolactone 25 mg tablet 25 mg PO DAILY #90 tabs 01/26/24 Unknown Rx Allergy/AdvReac Type Severity Reaction Status Date / Time levetiracetam Allergy Other Verified 02/02/24 14:02 nickel Allergy Rash Verified 02/02/24 14:02 sulfamethoxazole (From Allergy Itching Verified 02/02/24 14:02 Bactrim) trimethoprim (From Bactrim) Allergy Itching Verified 02/02/24 14:02 codeine AdvReac Nausea Verified 02/02/24 14:02 milk AdvReac Nausea/Vom/ Verified 02/02/24 14:02 Diarrhea Family History Father No problems noted. Mother No problems noted. Surgical History History of left hip hemiarthroplasty History of total right knee replacement (TKR) S/P total knee arthroplasty Hx of fusion of cervical spine Hx of cystoscopy Amputated toe of right foot History of hysterectomy History of tonsillectomy Deviated septum History of appendectomy History of cholecystectomy History of neck surgery Social History household members: spouse Smoking Status: Former smoker alcohol intake: never substance use type: does not use caffeine: No what type of physical activity do you participate in: other details: physical therapy seatbelt use: always do you feel safe at home: Yes EXAM Physical Exam Const Vital Signs: 02/02/24 13:56 02/02/24 14:10 02/02/24 15:52 Temperature 98 F Temperature Source Oral Pulse Rate 77 73 Respiratory Rate 20 H 18 Respiratory Effort Normal Non-Labored Blood Pressure 111/52 L 92/59 L Blood Pressure Mean 71 70 Pulse Ox 95 92 Oxygen Delivery Method Room Air Room Air 02/02/24 17:00 02/02/24 17:22 02/02/24 20:16 Temperature Temperature Source Pulse Rate 76 79 79 Respiratory Rate 18 17 18 Respiratory Effort Blood Pressure 119/68 117/68 Blood Pressure Mean 85 84 Pulse Ox 95 96 94 Oxygen Delivery Method Room Air Room Air Room Air MDM MDM MDM Narrative Medical decision making narrative: HISTORY OF PRESENT ILLNESS: 83-year-old female here to [facility] presents with concern for fall. per EMS patient is from home having heavy and falls and unable to care for self at home. Per EMS patient's had 3 seizures in the last several minutes while eating to be on board into the ED. the patient does not provide a reliable history. REVIEW OF SYSTEMS: Pertinent positives: Fall, seizures The remaining review of systems were not able to be obtained secondary to patient not provided reliable history. PHYSICAL EXAM: Nursing triage notes reviewed, Vital signs reviewed Constitutional: please see [email or web address] Primary Survey Airway: Intact Breathing: Bilateral breath sounds Circulation: Palpable bilateral femorals, Palpable bilateral radial, Palpable bilateral DP and Palpable bilateral PT Disability / Spine precautions GCS Score: Eye Openin Verbal Response: 5 Motor Response: 6 Secondary Survey Constitutional: Please see [facility] Head: Atraumatic, Midface stable, NO jaw malocclusion, No Cephalohematoma, and No Lacerations noted Eye: Pupils equal round and reactive to light, Extraocular muscles intact and No periorbital ecchymosis or stepoff, no evidence of entrapment ENT: Oropharynx clear, no lacerations, no hemotympanum, no raccoon eyes or ribeiro sign Cervical spine / Neck: No cervical spine bony tenderness, crepitance, or stepoff deformity Trachea midline Lungs: Clear to auscultation, No asymmetric rise and No crepitus, no flail chest Cardiac: Regular rate and rhythm and No murmurs Abdomen: Soft, Nontender and No rebound Pelvis: Pelvis stable to compression : No evidence of genital injury Back: No midline bony tenderness to thoracic/lumbar/sacral spines Neuro: At baseline, intact strength and sensation in bilateral upper and lower extremities. 2+ patellar reflexes bilaterally. Extremities: NO gross Deformities Psych: Normal affect Nursing triage notes reviewed, Vital signs reviewed MEDICAL DECISION MAKING: Chief Complaint: Fall, seizures External records reviewed: Reviewed prior ED visit, reviewed prior medications, reviewed allergies. Reviewed prior neurology note in great detail. During this evaluation the neurologist was concerned about pseudoseizures. Factors affecting care: As per HPI Social determinants of health: Elderly History obtained from others: EMS Consults: Behavioral health, Crisis [facility] Narrative: Patient was initially hemodynamically stable, afebrile and nontoxic-appearing. Exam without focal deficits. Patient was noted to have voluntary upper and lower extremity shaking that was redirectable and extinguishable with tactile stimuli. I considered the following differential diagnosis: ICH, electrolyte disturbance, medication noncompliance, infectious etiology lowering seizure threshold I obtained a broad lab and imaging workup to further elucidate etiology of the patient's complaints. ALL IMAGES (IF OBTAINED) HAVE BEEN PERSONALLY REVIEWED AND INTERPRETED BY MYSELF. CT scan of the brain showed no evidence of intracranial normality, CT scan of cervical spine was negative for acute cervical spine injury X-rays of the hip, chest by my read showed no evidence of obvious intrathoracic abnormality such as pneumonia or heart failure and no evidence of obvious fracture dislocation of the hip CBC with no leukocytosis, no anemia or thrombocytopenia BMP without evidence of significant electrolyte abnormalities, no anion gap, no acute kidney injury. High-sensitivity troponin is negative, no evidence of myocardial ischemia Urinalysis without evidence of infection Urine tox screen without evidence of intoxicants Serum alcohol negative The patient had no focus of abnormality in the head or metabolism. There is no clear precipitating cause of the patient's symptoms. 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 She is treated with 1 mg of Ativan x 2 and then finally with 10 mg of IM Geodon for control of her abnormal behaviors. Given the patient requires not only dementia care but also medical care given her significant medical comorbidities as well as behavioral health evaluation she readmitted to a [place] [facility]. Discussed with our crisis behavioral health rn social services who is in the process of placing the patient. Patient signed out to p.m. physician pending placement. [place] slip and transfer form signed. The patient and/or family, caregivers express understanding. The patient and/or family, caregivers agrees with the plan. Shared decision making: I will have a discussion with the patient and or visitors regarding risk/benefits of further testing or admission. They will be made aware of of the risk/benefits inherent in this decision they will be given the opportunity to voice understanding. Total critical care time today provided was at least 0 minutes. This excludes separately billable procedures. Critical care time (if documented) is secondary to the patient having high probability of clinically significant/life threatening deterioration in the patient's condition which required my urgent intervention. Impression: 1. Fall 2. Behavioral disturbance 3. Pseudoseizures Dispo: Pending crisis evaluation and possible placement. This note was generated with [employer] dictation software. It may contain incorrect words, spelling, and punctuation that were not noted in review of the chart prior to signing. Lab Data Labs: Laboratory Results - last 24 hr 02/02/24 02/02/24 02/02/24 14:10 14:26 14:35 WBC 8.2 RBC 3.91 L Hgb 13.1 Hct 41.8 MCV 106.9 H MCH 33.5 H MCHC 31.3 L RDW Std Deviation 56.5 H RDW Coeff of Robert 14.6 Plt Count 296 MPV 9.6 Sodium 140 Potassium 4.0 Chloride 106 Carbon Dioxide 26.0 Anion Gap 8 BUN 24 H Creatinine 1.06 H Estim Creat Clear Calc 42.49 Est GFR (MDRD) Af Amer 63 Est GFR (MDRD) Non-Af 52 L BUN/Creatinine Ratio 22.6 H Glucose 126 H Calcium 9.8 Troponin I High Sens 12 Lipase 40 Urine Color Yellow Urine Clarity Clear Urine pH 6.0 Ur Specific [place] 1.020 Urine Protein Negative Urine Glucose (UA) Normal Urine Ketones Negative Urine Occult Blood 10 H Urine Nitrite Negative Urine Bilirubin Negative Urine Urobilinogen Normal Ur Leukocyte Esterase 25 H Urine RBC 0 SEEN Urine WBC 0-5 SEEN Ur Squamous Epith Cells 0 SEEN Ur Transition Epith Cell 0-5 SEEN Urine Bacteria 1+ Hyaline Casts 0-5 SEEN Urine Mucus 0 SEEN Urine Opiates Screen NEGATIVE Urine Methadone Screen NEGATIVE Ur Barbiturates Screen NEGATIVE Ur Phencyclidine Scrn NEGATIVE Ur Amphetamines Screen NEGATIVE MDMA (Ecstasy) Screen NEGATIVE U Benzodiazepines Scrn NEGATIVE Urine Cocaine Screen NEGATIVE U Cannabinoids Screen NEGATIVE Ur Drug Screen Comment Ethyl Alcohol < 3.0 Radiography Diagnostic Testing: Clinical Impression(s) from Imaging Studies Brain CT 02/02/24 14:20 IMPRESSION: Chronic involutional changes of the brain. Electronically Signed: Amol Hannon MD at 15:17 EDT , Cervical Spine CT 02/02/24 14:25 IMPRESSION: Multilevel degenerative changes, as described above. Electronically Signed: Amol Hannon MD at 15:19 EDT , Chest X-Ray 02/02/24 14:55 IMPRESSION: Cardiomegaly. Stable increased linear markings at the left lung base suggestive of scarring. Electronically Signed: Amol Hannon MD at 15:22 EDT , Hip/Pelvis X-Ray 02/02/24 14:55 IMPRESSION: Osteoarthritis of the right hip joint. No fracture or dislocation is seen. Electronically Signed: Amol Hannon MD at 15:22 EDT , Discharge Plan Triage Chief Complaint: Fall ED Provider: Min Kay Dx/Rx/DC Orders Prescriptions: No Action duloxetine 30 mg capsule,delayed release(DR/EC) 30 mg PO QHS cyanocobalamin (vitamin B-12) [Vitamin B-12] 1,000 mcg tablet 1,000 mcg PO DAILY furosemide 40 mg tablet 40 mg PO DAILY Rx Instructions: AM Eliquis 2.5 mg tablet 2.5 mg PO BID Qty: 180 3RF diltiazem HCl [Cartia XT] 120 mg capsule,extended release 24hr 120 mg PO DINNER divalproex 250 mg tablet,delayed release (DR/EC) 250 mg PO BID Qty: 60 5RF lamotrigine 200 mg tablet 200 mg PO BID Qty: 60 5RF donepezil 10 mg tablet 10 mg PO QHS Qty: 90 1RF nitroglycerin 0.4 mg Tablet, Sublingual 0.4 mg sublingual Q5M PRN (Reason: Cardiac/Chest Pain) Qty: 0 0RF oxycodone 5 mg Tablet 5 mg PO Q4H PRN PRN (Reason: Pain Score 6-10) 7 Days Qty: 28 0RF aspirin [Adult Low Dose Aspirin] 81 mg tablet,delayed release (DR/EC) 81 mg PO DAILY potassium chloride 20 mEq tablet,ER particles/crystals 20 meq PO DAILY pomegran fruit xt-pomegra seed 250 mg capsule PO losartan 25 mg tablet 25 mg PO QHS Qty: 90 3RF metoprolol succinate 25 mg tablet extended release 24 hr 25 mg PO DAILY Qty: 90 3RF spironolactone 25 mg tablet 25 mg PO DAILY Qty: 90 3RF Primary Care Provider: Nahomy Bettencourt Referrals: Nahomy Bettencourt MD [Primary Care Provider] - Print Language: Palauan
[2024-02-02] MEDS: LORazepam 2 MG/ML Syringe 1 MG IV ×3 (14:12→20:52)
--- NOTE | 2024-02-02 14:20 | CT_ITS ---
STUDY: CT BRAIN WITHOUT CONTRAST REASON FOR EXAM: Female, 83 years old. History of fall. RADIATION DOSAGE (If Supplied By Facility): CTDIvol = ( 47.06 ) mGy, DLP = ( 890.33 ) mGycm TECHNIQUE: Transaxial CT imaging of the brain was performed without administration of intravenous contrast material. Individualized dose optimization techniques were used for this CT. COMPARISON: Comparison is made with prior study January 12, 2024. FINDINGS: Normal soft tissue structures. There is hyperostosis frontalis internus. There is mild cerebral atrophy with widening of the extra-axial spaces and ventricular dilatation. There are areas of decreased attenuation within the white matter tracts of the supratentorial brain, consistent with microvascular disease changes. Normal basal ganglia and thalami. Normal brainstem. Normal cerebellum. There is no intracranial hemorrhage. There are no findings of an acute ischemic infarction. Atrophy. Calcification of the cavernous portions of the internal carotid arteries as well as the vertebral arteries. Normal visualized paranasal sinuses. CT/Brain/Head without Contrast IMPRESSION: Chronic involutional changes of the brain. Electronically Signed: Amol Hannon MD at 15:17 EDT ,
--- NOTE | 2024-02-02 14:20 | EKG12_ITS ---
Test Reason : FALL Blood Pressure : / mmHG Vent. Rate : 074 BPM Atrial Rate : 000 BPM P-R Int : 000 ms QRS Dur : 108 ms QT Int : 394 ms P-R-T Axes : 000 024 126 degrees QTc Int : [address] & T wave abnormality, consider anterolateral ischemia Abnormal ECG Confirmed by Mehrdad Garcia ([id number]), editor magazine MIKE CHAND ([id number]) on 02/06/2024 1:18:34 PM Referred By: Confirmed By:Mehrdad Garcia
--- NOTE | 2024-02-02 14:25 | CT_ITS ---
STUDY: CT CERVICAL SPINE WITHOUT CONTRAST REASON FOR EXAM: Female, 83 years old. Neck pain after fall RADIATION DOSAGE (If Supplied By Facility): CTDIvol = ( 19.49 ) mGy, DLP = ( 324.35 ) mGycm TECHNIQUE: High resolution transaxial imaging was performed without contrast material. Sagittal and coronal images were reconstructed. Individualized dose optimization techniques were used for this CT. COMPARISON: Comparison is made with prior study dated January 12, 2024. FINDINGS: Normal craniovertebral junction. Normal anterior atlantoaxial articulation. Normal odontoid process. There is straightening of the normal cervical lordosis. Normal vertebral bodies and posterior osseous elements. C2-3: Facet joint osteoarthritis and hypertrophy. No significant stenosis is seen. C3-4: Facet joint osteoarthritis and hypertrophy worse on the left side. Mild degree of bilateral neural foraminal stenosis. C4-5: Marked degree of disc space narrowing and spondylosis. Facet joint osteoarthritis and hypertrophy worse on the left side with uncovertebral arthrosis. Bilateral neural foraminal stenosis worse on the left side. C5-6: Marked degree of disc space narrowing and fusion. Mild bilateral neural foraminal stenosis. C6-7: Marked degree of disc space narrowing. No significant stenosis is seen. C7-T1: Marked degree of disc space 9 and spondylosis. No evidence of spinal stenosis. Atherosclerotic plaque formation of the carotid bifurcations. CT/Spine Cervical without Contras IMPRESSION: Multilevel degenerative changes, as described above. Electronically Signed: Amol Hannon MD at 15:19 EDT ,
[2024-02-02 14:38] LABS: Mucous, Urine 0 SEEN /hpf (<or=2+); Red Blood Cells-Urine 0 SEEN /hpf (0-5); Squamous Epithelial Cells - UA 0 SEEN /hpf (5-10)
[2024-02-02 14:41] LABS: Color, Urine Yellow (Yellow); Glucose, Dipstick Normal (Normal); Ketone-Dipstick Negative (Negative); Leukocyte Esterase-Dipstick 25 /ul (Negative); Nitrite-Dipstick Negative (Negative); Occult Blood-Urine 10 /ul (Negative); Protein-Dipstick Negative (Negative); Urine Bilirubin Dipstick Negative (Negative); Urine Clarity Clear (Clear); Urine Urobilinogen Normal (Normal)
[2024-02-02] MEDS: 0.9% Normal Saline (500mL Bag) 500 ML 1000 ML IV (14:42)
--- NOTE | 2024-02-02 14:55 | RAD_ITS ---
STUDY: X-RAY - PELVIS AND RIGHT HIP REASON FOR EXAM: Female, 83 years old. Pain after fall TECHNIQUE: 3 views of the pelvis and hip. COMPARISON: None. FINDINGS: There is a non-specific bowel gas pattern. Normal visualized soft tissue structures. Normal bilateral iliac wings, sacroiliac joints and visualized sacrum. Normal bilateral superior and inferior pubic rami. There is narrowing with sclerosis of the pubic symphysis. Normal bilateral ischial tuberosities. Normal visualized femoral head. There is osteoarthritic spur formation of the acetabular rim. There is moderate articular joint space narrowing of the hip. RAD/HIP, UNI W/ Pelvis 2-3 Views IMPRESSION: Osteoarthritis of the right hip joint. No fracture or dislocation is seen. Electronically Signed: Amol Hannon MD at 15:22 EDT ,
--- NOTE | 2024-02-02 14:55 | RAD_ITS ---
STUDY: X-RAY CHEST REASON FOR EXAM: Female, 83 years old. Fall, AMS TECHNIQUE: Single AP portable view of the chest. COMPARISON: Comparison is made with prior study dated April 11, 2023. FINDINGS: EKG electrodes are seen. Stable mild increase in markings at the left lung base suggestive of scarring. There is no demonstrated pleural abnormality. There is moderate cardiac enlargement. Normal mediastinum and saad. Normal visualized pulmonary arteries. There is atherosclerotic calcification of the aortic arch with tortuosity. There are diffuse degenerative changes of the visualized thoracic spine. Normal visualized ribs, clavicles, and shoulders. There is no demonstrated abnormality of the visualized soft tissue structures of the upper abdomen. RAD/Chest 1 View (Portable) IMPRESSION: Cardiomegaly. Stable increased linear markings at the left lung base suggestive of scarring. Electronically Signed: Amol Hannon MD at 15:22 EDT ,
[2024-02-02 14:57] LABS: Bacteria 1+ /hpf (None Seen); Hyaline Cast 0-5 SEEN /lpf (0-5); Transitional Epithelial - Ur 0-5 SEEN /hpf (0-5); White Blood Cells 0-5 SEEN /hpf (0-5)
[2024-02-02 14:58] LABS: Hematocrit 41.8 % (37-47); Hemoglobin 13.1 g/dL (12.0-15.0); Mean Corp Hgb Conc 31.3 g/dL (32-36); Mean Corpuscular Hgb 33.5 pg (27.0-32.0); Mean Corpuscular Volume 106.9 fL (81-99); Mean Platelet Vol. 9.6 fl (6.2-12.0); Platelet Count 296 K/mm3 (150-450); RBC Distribution Width CV 14.6 % (11.6-14.6); RBC Distribution Width SD 56.5 fl (35.1-43.9); Red Blood Count 3.91 M/mm3 (4.2-5.4); White Blood Count 8.2 K/mm3 (4.4-11.0)
[2024-02-02 15:11] LABS: Alcohol, Blood (Medical)-Serum < 3.0 mg/dL
[2024-02-02 15:16] LABS: Anion Gap 8 (5-15); BUN 24 mg/dL (7-18); BUN/Creat Ratio 22.6 RATIO (10-20); Calcium,Total 9.8 mg/dL (8.5-10.1); Chloride 106 mmol/L (98-107); Creatinine, Serum 1.06 mg/dL (0.55-1.02); EST Glomerular Filtration Rate 52 mL/min (>60); Est Glom Filt Rate - Afr Amer 63 mL/min (>60); Estimated Creatinine Clearance 42.49 ml/min; Glucose 126 mg/dL (74-106); Lipase 40 U/L (13-75); Sodium Level 140 mmol/L (136-145); Troponin-I HS 12 pg/mL (3.0-54.0)
[2024-02-02 18:51] LABS: Amphetamine Urine VISTA NEGATIVE (<1000 ng/mL); Barbiturate Urine VISTA NEGATIVE (< 200 ng/mL); Benzodiazepine Urine VISTA NEGATIVE (< 200 ng/mL); Cocaine Urine VISTA NEGATIVE (< 300 ng/mL); Ecstacy Urine VISTA NEGATIVE (< 500 ng/mL); Methadone Urine VISTA NEGATIVE (< 300 ng/mL); PCP Urine VISTA NEGATIVE (< 25 ng/mL); THC Urine VISTA NEGATIVE (< 50 ng/mL); Vista UDS pH Range 4
--- NOTE | 2024-02-02 22:16 | ED.RN ---
This RN attempted to call the patient's in order to obtain a medication list, with no answer. MD notified.
--- NOTE | 2024-02-02 22:27 | EKG12_ITS ---
Test Reason : DYSRHYTHMIA Blood Pressure : / mmHG Vent. Rate : 084 BPM Atrial Rate : 000 BPM P-R Int : 000 ms QRS Dur : 112 ms QT Int : 374 ms P-R-T Axes : 000 031 158 degrees QTc Int : 441 ms Critical Test Result: Arrhythmia Atrial fibrillation with premature ventricular or aberrantly conducted complexes Incomplete left bundle branch block ST & T wave abnormality, consider anterolateral ischemia Abnormal ECG When compared with ECG of 23-JUN-2023 17:02, Incomplete left bundle branch block has replaced Left bundle branch block Confirmed by Mehrdad Garcia ([id number]), book editor MAMADOU TROY ([id number]) on 02/06/2024 2:30:00 PM Referred By: MEET Confirmed By:Mehrdad Garcia
--- NOTE | 2024-02-02 22:35 | ED.RN ---
This RN noticed VTACH on the monitor and ran into the patients room. By the time this RN got back to the pt room she was out of it. This RN stayed at bedside to monitor and she went back into VTACH. MD is aware and at bedside. Code cart is at bedside. Respiratory is at bedside to do another EKG.
--- NOTE | 2024-02-02 22:56 | ED.RN ---
This RN called the patient's daughter in law, who was unable to provide a medication list. This RN updated the patient's admission status. notified.
[2024-02-02] MEDS: 0.9% Normal Saline (500mL Bag) 500 ML 999 ML IV (23:08)
--- NOTE | 2024-02-02 23:15 | PCM.HP.STD ---
HPI - General General Date of Admission: 02/02/24 Date of Service: 02/02/24 Chief Complaint: Adult FTT, EMS reporting questionable seizure activity. HPI Narrative The patient is an 83 y/o F w/ PMHx: CKD stage III unclear subtype, Nonischemic cardiomyopathy, PAF, Parkinson's disease, Alzheimer's disease w/ associated underlying dementia with unclear behavioral disturbance history, Valvular Heart Disease, HFrEF, HTN, HLD, Anxiety and Depression, Diabetes mellitus type II with chronic neuropathy, Chronic constipation, Former tobacco use, Seizure disorder, Nonobstructive CAD who presents to the [facility] ED on 02/02/24 with history of mechanical fall prompting EMS call with patient having difficulty caring for self at home and unable to ambulate and while in the home during the evaluation upon being transition from the floor following her fall to the bed EMS witnessed a grand mal seizure with patient has been reporting that she has seizures constantly with recurrent seizure activity while transitioning to the cot in the ED. Workup in the ED included T98, heart rate 77, BP 111/52, respiratory rate 20, 95% on room air, CBC with WC 8.2, hemoglobin 13.1, platelet 296 without differential performed, BMP with BUN/creatinine 24/1.06, GFR 52, glucose 126, troponin 12, lipase 40, urinalysis not marked appearing with occult blood 10, leukocyte Estrace 25, negative nitrite, urine WBC 0-5 with 1+ urine bacteria but again not marked appearing, EKG in ED w/ PAF with PVCs with no acute evidence of ischemia, CT of the brain with chronic involutional changes, CT cervical spine with multilevel degenerative changes, chest x-ray with cardiomegaly, stable increased linear markings at the left lung base suggestive of scarring, plain film of the right hip and pelvis with osteoarthritic changes of the right hip joint with no fracture or dislocation demonstrated. In the ED patient Ativan 1 mg IV x 3. Per discussion with ED staff patient noted she went into VT on monitor and in the bed she had eyes rolled back and spasms of her extremities with sternal rub per staff and ability to immediately look at the nurse and talk to her without issue and once she returned to PAF on monitor she subsided that activity. Nursing staff notes that the patient was never post-ictal following any of these activities. Initial plan had been for Geripsych facility placement given significant underlying psychiatric issues, dementia and pseudoseizures with risk to self however given concern for NSVT on monitors decision to admit and evaluate further prior to crisis reevaluation for psychiatric geriatric placement. [facility] Medical History Mitral regurgitation Aortic valve stenosis with insufficiency Atrial fibrillation Preoperative cardiovascular examination Congestive heart failure (CHF) Dementia Parkinson's disease Rotator cuff tear arthropathy of left shoulder Tremor Cardiomyopathy Aortic stenosis Pericardial effusion Anxiety Depression Hypertension Diabetic neuropathy Acute systolic congestive heart failure Debility Pleural effusion due to CHF (congestive heart failure) Cellulitis of chest wall H/O cardiac murmur Depression Diabetic polyneuropathy Diabetes mellitus Chronic constipation Vitamin D deficiency Hypertension Inability to ambulate due to knee Debility Acute postoperative pain of right knee Wears glasses History of steroid therapy Diabetes Ambulates with cane Arthritis Back pain Injury of back Injury of head and neck Epilepsy Dietary restriction Former smoker Chronic cough Neuropathy History of pain when walking History of stress test History of echocardiogram Cardiology follow-up encounter History of atrial fibrillation Hx of vaginal delivery Hx of back injury Atherosclerotic heart disease of 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 Neuropathy, diabetic Nephrolithiasis Hypertension DM2 (diabetes mellitus, type 2) Paroxysmal atrial fibrillation Home Medications ?Medication ?Instructions ?Recorded ?Last Taken ?Type duloxetine 30 mg capsule,delayed 30 mg PO QHS NEUROPATHY 09/22/20 07/21/23 History release nitroglycerin 0.4 mg sublingual 0.4 mg sublingual Q5M PRN 06/11/22 Unknown Rx tablet Cardiac/Chest Pain #0 tabs cyanocobalamin (vitamin B-12) 1,000 mcg PO DAILY supplement 08/10/22 07/21/23 History 1,000 mcg tablet (Vitamin B-12) oxycodone 5 mg tablet 5 mg PO Q4H PRN PRN Pain Score 11/24/22 Unknown Rx 6-10 7 days #28 tabs apixaban 2.5 mg tablet (Eliquis) 2.5 mg PO BID #180 tabs 01/04/23 07/21/23 Rx furosemide 40 mg tablet 40 mg PO DAILY Diuretic 01/04/23 07/21/23 History aspirin 81 mg tablet,delayed 81 mg PO DAILY 04/08/23 06/23/23 09:00 History release (Adult Low Dose Aspirin) diltiazem HCl 120 mg 120 mg PO DINNER heart 05/23/23 07/21/23 History capsule,extended release 24 hr (Cartia XT) losartan 25 mg tablet 25 mg PO QHS #90 tabs 10/03/23 Unknown Rx metoprolol succinate 25 mg 25 mg PO DAILY HEART #90 tabs 10/28/23 Unknown Rx tablet,extended release 24 hr pomegran fruit xt-pomegra seed 250 cap PO 01/12/24 Unknown History mg capsule potassium chloride 20 mEq 20 meq PO DAILY 01/12/24 Unknown History tablet,extended release(part/cryst) divalproex 250 mg tablet,delayed 250 mg PO BID #60 tabs 01/19/24 Unknown Rx release donepezil 10 mg tablet 10 mg PO QHS #90 tabs 01/19/24 Unknown Rx lamotrigine 200 mg tablet 200 mg PO BID #60 tabs 01/19/24 Unknown Rx spironolactone 25 mg tablet 25 mg PO DAILY #90 tabs 01/26/24 Unknown Rx Allergy/AdvReac Type Severity Reaction Status Date / Time levetiracetam Allergy Other Verified 02/02/24 14:02 nickel Allergy Rash Verified 02/02/24 14:02 sulfamethoxazole (From Allergy Itching Verified 02/02/24 14:02 Bactrim) trimethoprim (From Bactrim) Allergy Itching Verified 02/02/24 14:02 codeine AdvReac Nausea Verified 02/02/24 14:02 milk AdvReac Nausea/Vom/ Verified 02/02/24 14:02 Diarrhea Family History Father No problems noted. Mother No problems noted. Surgical History History of left hip hemiarthroplasty History of total right knee replacement (TKR) S/P total knee arthroplasty Hx of fusion of cervical spine Hx of cystoscopy Amputated toe of right foot History of hysterectomy History of tonsillectomy Deviated septum History of appendectomy History of cholecystectomy History of neck surgery Social History household members: spouse Smoking Status: Former smoker alcohol intake: never substance use type: does not use caffeine: No what type of physical activity do you participate in: other details: physical therapy seatbelt use: always do you feel safe at home: Yes ROS Review of Systems ROS Unobtainable: due to mental condition Vital Signs Vital Signs Vital Signs: 02/02/24 13:56 02/02/24 14:10 02/02/24 15:52 Temperature 98 F Temperature Source Oral Pulse Rate 77 73 Respiratory Rate 20 H 18 Respiratory Effort Normal Non-Labored Blood Pressure 111/52 L 92/59 L Blood Pressure Mean 71 70 Pulse Ox 95 92 Oxygen Delivery Method Room Air Room Air 02/02/24 17:00 02/02/24 17:22 02/02/24 20:16 Temperature Temperature Source Pulse Rate 76 79 79 Respiratory Rate 18 17 18 Respiratory Effort Blood Pressure 119/68 117/68 Blood Pressure Mean 85 84 Pulse Ox 95 96 94 Oxygen Delivery Method Room Air Room Air Room Air 02/02/24 22:00 02/02/24 22:41 Temperature 97.9 F Temperature Source Pulse Rate 90 72 Respiratory Rate 18 18 Respiratory Effort Blood Pressure 146/63 H 114/60 Blood Pressure Mean 90 78 Pulse Ox 93 95 Oxygen Delivery Method Room Air Weight Weight: 178 lb 9.191 oz Body Mass Index (BMI) 27.9 Physical Exam Narrative Physical Examination: General: Awake, alert, oriented to self and can give some appropriate family history including discussions about her dog which confirms but she cannot give year, month or any actual data orientation questions, remains cooperative and will follow current commands on evaluation, denies any acute complaints and does not acknowledge any reason as to why she is present, denying any pain at this point Skin: Normal color, normal turgor, no icterus, no cyanosis except occasional stage ecchymoses, abrasion, bilateral lower extremity venous stasis skin changes. HEENT: AT/NC, EOMI, PERRLA, mildly dry MM, no carotid bruits or JVD noted. Lungs: Mildly diminished, greater bases, appropriate effort, no rales, ronchi or wheezing. Heart: Irregular, rate controlled; no gallop, rub audible. Abdomen: Soft, NTTP, ND, mildly hyperactive BS, no appreciated HSM. Extremities: No cyanosis, no clubbing, see skin, no marked peripheral pitting edema noted. Neurological: Patient awake, alert, oriented as noted, cognitive function decreased baseline with underlying dementia, suspect patient is baseline intact complicated by mood disorder; pupils equally reactive to light and accommodation, cranial nerves grossly normal, moving all 4 extremities, no focal deficits, strength moderately to severely global decreased. Psychiatric: Affect appears currently flat, fatigued, no acute evidence of depressive or anxiety feelings but does have significant underlying history. Results Lab / Micro Data 02/02/24 14:10 02/02/24 22:45 Labs: Laboratory Results - last 24 hr 02/02/24 14:10: WBC 8.2, RBC 3.91 L, Hgb 13.1, Hct 41.8, MCV 106.9 H, MCH 33.5 H, MCHC 31.3 L, RDW Std Deviation 56.5 H, RDW Coeff of Robert 14.6, Plt Count 296, MPV 9.6, Sodium 140, Potassium 4.0, Chloride 106, Carbon Dioxide 26.0, Anion Gap 8, BUN 24 H, Creatinine 1.06 H, Estim Creat Clear Calc 42.49, Est GFR (MDRD) Af Amer 63, Est GFR (MDRD) Non-Af 52 L, BUN/Creatinine Ratio 22.6 H, Glucose 126 H, Calcium 9.8, Troponin I High Sens 12, Lipase 40 02/02/24 14:26: Urine Color Yellow, Urine Clarity Clear, Urine pH 6.0, Ur Specific [place] 1.020, Urine Protein Negative, Urine Glucose (UA) Normal, Urine Ketones Negative, Urine Occult Blood 10 H, Urine Nitrite Negative, Urine Bilirubin Negative, Urine Urobilinogen Normal, Ur Leukocyte Esterase 25 H, Urine RBC 0 SEEN, Urine WBC 0-5 SEEN, Ur Squamous Epith Cells 0 SEEN, Ur Transition Epith Cell 0-5 SEEN, Urine Bacteria 1+, Hyaline Casts 0-5 SEEN, Urine Mucus 0 SEEN, Urine Opiates Screen NEGATIVE, Urine Methadone Screen NEGATIVE, Ur Barbiturates Screen NEGATIVE, Ur Phencyclidine Scrn NEGATIVE, Ur Amphetamines Screen NEGATIVE, MDMA (Ecstasy) Screen NEGATIVE, U Benzodiazepines Scrn NEGATIVE, Urine Cocaine Screen NEGATIVE, U Cannabinoids Screen NEGATIVE, Ur Drug Screen Comment 02/02/24 14:35: Ethyl Alcohol < 3.0 Imaging Radiology Impression Brain CT 02/02/24 14:20 IMPRESSION: Chronic involutional changes of the brain. Electronically Signed: Amol Hannon MD at 15:17 EDT , Cervical Spine CT 02/02/24 14:25 IMPRESSION: Multilevel degenerative changes, as described above. Electronically Signed: Amol Hannon MD at 15:19 EDT , Chest X-Ray 02/02/24 14:55 IMPRESSION: Cardiomegaly. Stable increased linear markings at the left lung base suggestive of scarring. Electronically Signed: Amol Hannon MD at 15:22 EDT , Hip/Pelvis X-Ray 02/02/24 14:55 IMPRESSION: Osteoarthritis of the right hip joint. No fracture or dislocation is seen. Electronically Signed: Amol Hannon MD at 15:22 EDT , Assessment & Plan Assessment/Plan (1) Nonepileptic episode: (2) NSVT (nonsustained ventricular tachycardia): PLAN: Plan The patient is an 83 y/o F w/ PMHx: CKD stage III unclear subtype, Nonischemic cardiomyopathy, PAF, Parkinson's disease, Alzheimer's disease w/ associated underlying dementia with unclear behavioral disturbance history, Valvular Heart Disease, HFrEF, HTN, HLD, Anxiety and Depression, Diabetes mellitus type II with chronic neuropathy, Chronic constipation, Former tobacco use, Seizure disorder, Nonobstructive CAD who presents to the [facility] ED on 02/02/24 with history of mechanical fall prompting EMS call with patient having difficulty caring for self at home and unable to ambulate and while in the home during the evaluation upon being transition from the floor following her fall to the bed EMS witnessed a grand mal seizure with patient has been reporting that she has seizures constantly with recurrent seizure activity while transitioning to the cot in the ED. #1. Concern for episode of NSVT versus PAF w/ ? aberrancy: EKG in ED w/ PAF with PVCs with no acute evidence of ischemia, CXR w/ no acute cardiopulmonary findings, Trop 12.0. Will admit to PCU, maintain on a monitored bed, continue serial cardiac enzymes and EKGs. Obtain magnesium level upon admission. Patient currently anticoagulated with low-dose Eliquis but patient is a significant high fall risk thus thus will need to consider if this is best to be discontinued. Will continue aspirin, low-dose Eliquis in the interim, metoprolol, diltiazem although may need to adjust regimen given VT episode in the ED. Will continue to monitor telemetry and if there are significant VT episodes would plan to initiate amiodarone and would request cardiology involvement. Most recent echocardiogram noted 02/2023 with LVEF 30%, septal motion consistent with bundle branch block, moderate to severe global hypokinesis LV, PASP 40 mmHg. Once sure patient is medically stable will benefit from crisis consultation for Geripsych placement which was initiated in ED but deferred given episodes of NSVT. #2. High suspicion Pseudoseizure with prior diagnosed Seizure disorder: In the ED described seizure activity per EMS but in the ED patient with tremors which will subside when she is redirected and patient is able to discuss and interact with no postictal phase thus low suspicion but will continue patient home lamotrigine and Depakote with levels requested to be cautious. Most recent evaluation per neurology 01/19/24 with high suspicion of pseudoseizures. Will encourage staff to maintain patient on seizure precautions but prior to administering any IV Ativan for activity will encourage them to sternal rub and interact with her and if she is arousable and can talk and is not having any postictal phase then will defer this. Patient had extensive evaluation at [facility] Including continuous EEG monitoring. #3. Frequent mechanical falls, recent fall upon presentation with inability to get up, adult failure to thrive: Fortunately despite fall CT of the brain as well as CT cervical spine, hip and pelvis right plain film as well as chest x-ray with no acute findings, will maintain on fall precautions, PT/OT/case management consulted. #4. Alzheimer's disease with mild dementia, unclear behavioral disturbance history: Patient initiated on donepezil in 2022 with no marked improvements per most recent neurology report, complicates presentation, case management consulted, PT/OT consulted, given significant pseudoseizure concern and inability to care for self at home may require Geripsych evaluation and placement. #5. HFrEF, nonischemic cardiomyopathy: As noted most recent echocardiogram 02/2023 with EF 30% at that time with moderate to severe global hypokinesis, will continue aspirin, low-dose Eliquis, metoprolol, lisinopril, spironolactone, Lasix as BP allows, not on statin therapy, defer to outpatient. Will judiciously hydrate if needed. Given this history. #6. Valvular heart disease: Patient with most recent echocardiogram as noted 03/11/2023 with evidence of tricuspid valve insufficiency, try sinus/trileaflet aortic valve and prior to this 11/06/2022 noted mild MVI, moderate TBI, mild to moderate aortic stenosis, mild to moderate AV insufficiency. Encourage continued outpatient follow-up with cardiology as previously arranged. #7. Chronic Kidney Disease Stage III, unclear subtype per GFR trending: Admission BUN/Cr 24/1.06, baseline renal function 0.9-1.0, repeat BMP in AM. #8. Nonobstructive CAD: Patient s/p most recent cardiac catheterization 06/02/2022 w/ demonstrated [facility] multivessel coronary artery disease that was nonobstructive. Will cautiously continue aspirin, low-dose Eliquis, metoprolol, losartan, not on statin therapy, defer to outpatient. #9. Hypertension: Continue home regimen including spironolactone, metoprolol, losartan, diltiazem, Lasix, PRN hydralazine. #10. Hyperlipidemia: Per current list does not appear to be on statin therapy, will defer to outpatient. #11. Chronic neuropathy, suspected underlying mood disorder: Will continue patient home duloxetine regimen. #12. Former tobacco use: Encourage continued tobacco cessation. #13. DVT prophylaxis: We will continue patient home low-dose apixaban but again high fall risk thus low threshold to discontinue this regimen. #14. CODE status: Patient TANNER is her and living will is currently in place. Discussed CODE status with her at length including difference between FULL code, DNR-CCA and DNR-CC status. Following discussions about the differences in these status, requested DNR-CCA, no intubation. Advanced Care Planning Face to Face Time: 16 minutes. Charges/Coding Visit Charges Inpatient E&M: 07048 Init Hosp L3 Procedures Hospitalists Procedures: 82496 Advncd Care Plan 30 Min
[2024-02-02 23:20] LABS: Anion Gap 6 (5-15); BUN 19 mg/dL (7-18); BUN/Creat Ratio 22.8 RATIO (10-20); Calcium,Total 8.7 mg/dL (8.5-10.1); Chloride 110 mmol/L (98-107); Creatinine, Serum 0.83 mg/dL (0.55-1.02); EST Glomerular Filtration Rate 69 mL/min (>60); Est Glom Filt Rate - Afr Amer 84 mL/min (>60); Estimated Creatinine Clearance 54.26 ml/min; Glucose 90 mg/dL (74-106); Magnesium 2.2 mg/dL (1.6-2.6); Potassium 3.8 mmol/L (3.5-5.1); Sodium Level 143 mmol/L (136-145); Troponin-I HS 11 pg/mL (3.0-54.0)
[2024-02-03] VITALS (22 sets, daily range): BP systolic 88–151; BP diastolic 41–71; PULSE 54–91; RESP 16–23; TEMP 36.3–36.6; O2SAT 92–100; BMI 29.1
[2024-02-03 00:06] LABS: Phosphorus 2.7 mg/dL (2.5-4.9)
[2024-02-03 00:16] LABS: Valproic Acid (Depakene) Level 12 ug/mL (50-100)
--- NOTE | 2024-02-03 03:21 | ECHOD_ITS ---
Reason For Study: ARRHYTHMIA Procedure This was a 2D Doppler, Color Flow transthoracic echocardiogram. The study was technically difficult. Contrast injection was performed. Exam performed portable in patient room. Left Ventricle Normal LV size. Sigmoid septum. The estimated ejection fraction is 60 %. No evidence for diastolic dysfunction. No regional wall motion abnormalities noted. Right Ventricle Normal RV size. Normal systolic function. Atria Normal left atrium. The right atrium is mildly enlarged. No doppler evidence for ASD. Mitral Valve There is no mitral valve stenosis. No mitral valve insufficiency. Tricuspid Valve There is no tricuspid stenosis. Trivial tricuspid valve insufficiency. Pulmonary artery systolic pressure is 25 mmHg. Aortic Valve Trisinus/trileaflet aortic valve. Mild diffuse aortic valve thickening. Moderate aortic stenosis. No aortic valve insufficiency. Pulmonic Valve There is no pulmonic valvular stenosis. No pulmonic valve insufficiency. Great Vessels Normal aortic root. Pericardium/Pleural No pericardial effusion. Medication Diluted definity 1ml given slow IV push to enhance endocardial definition. MMode/2D Measurements & Calculations LVIDd: 4.9 cm IVSd: 1.3 cm LVOT diam: 1.8 cm LVIDs: 3.4 cm LVPWd: 1.7 cm FS: 31.0 % LVOT area: 2.5 cm2 Ao root diam: 3.4 cm LAV(MOD-bp): 48.4 ml LVAd ap4: 33.7 cm2 LAV(MOD-bp) Indexed: 25.1 ml/m2 LVLd ap4: 7.7 cm LAV(MOD-sp2): 39.5 ml EDV(MOD-sp4): 120.6 ml LAV(MOD-sp4): 52.5 ml EDV(sp4-el): 126.3 ml LVAs ap4: 23.0 cm2 LVLs ap4: 6.5 cm ESV(MOD-sp4): 69.5 ml ESV(sp4-el): 69.5 ml EF(MOD-sp4): 42.4 % EF(sp4-el): 45.0 % SV(MOD-sp4): 51.1 ml SV(sp4-el): 56.8 ml LA A4 area: 19.2 cm2 LA dimension(2D): 3.0 cm RA A4 area: 19.5 cm2 Doppler Measurements & Calculations Ao V2 max: 332.1 cm/sec LV V1 max: 128.9 cm/sec SV(LVOT): 67.6 ml Ao max P.1 mmHg LV V1 max P.7 mmHg Ao V2 mean: 246.0 cm/sec LV V1 mean P.4 mmHg Ao mean P.1 mmHg LV V1 mean: 84.9 cm/sec Ao V2 VTI: 74.4 cm LV V1 VTI: 27.2 cm AV (velocity ratio): 0.37 PRISCILLA(I,D): 0.91 cm2 PRISCILLA(V,D): 0.97 cm2 TR max floyd: 215.2 cm/sec TR max P.5 mmHg ECHO/Echo Complete W/ Contrast Interpretation Summary The estimated ejection fraction is 60 %. No evidence for diastolic dysfunction. The right atrium is mildly enlarged. Moderate aortic stenosis. Ordering Physician: Carrie Grant Referring Physician: PETE BECERRA Performed By: Frances Alonso RCS
[2024-02-03] MEDS: Metoprolol(XL)Succ 25 MG Tablet PO ×2 (03:55→09:55)
[2024-02-03] MEDS: 0.9% Normal Saline (1000mL) 1,000 ML 75 ML IV (03:56)
[2024-02-03] MEDS: Divalproex Sodium 250 MG Tablet PO ×3 (03:56→22:37)
--- NOTE | 2024-02-03 04:36 | PCM.HOSP.N ---
Hospitalist Note Patient with ongoing recurrent NSVT events often short bursts but serially happening. Patient is already on metoprolol and Cardizem. Will initiate amiodarone with drip and request cardiology consultation.
[2024-02-03 04:50] LABS: Absolute Lymphocyte Count 1.89 X10^3/uL (0.83-4.51); Absolute Neutrophil Count 6.5 X10^3/uL (2.0-7.7); Basophil# 0.04 X10^3/uL; Basophil% 0.4 % (0-1); Eosinophil# 0.17 X10^3/uL; Eosinophils% 1.8 % (0-5); Hematocrit 39.9 % (37-47); Hemoglobin 12.6 g/dL (12.0-15.0); Lymphocyte # 1.89 X10^3/ul (0.83-4.51); Mean Corp Hgb Conc 31.6 g/dL (32-36); Mean Corpuscular Hgb 33.9 pg (27.0-32.0); Mean Corpuscular Volume 107.3 fL (81-99); Mean Platelet Vol. 9.1 fl (6.2-12.0); Monocyte# 0.77 X10^3/uL; Monocyte% 8.2 % (0-10); NRBC Flagged by Analyzer 0 % (0-5); Neutrophil # 6.52 X10^3/uL (2.7-7.7); Neutrophil % 69.2 % (47-70); Platelet Count 276 K/mm3 (150-450); RBC Distribution Width CV 14.3 % (11.6-14.6); RBC Distribution Width SD 55.6 fl (35.1-43.9); Red Blood Count 3.72 M/mm3 (4.2-5.4); White Blood Count 9.4 K/mm3 (4.4-11.0)
[2024-02-03 05:10] LABS: Troponin-I HS 12 pg/mL (3.0-54.0)
[2024-02-03] MEDS: Amiodarone 150 MG in Dextrose 5%-Water (100mL Bag) 100 ML 600 MG IV BOLUS (05:25)
[2024-02-03] MEDS: Amiodarone 360 MG in Dextrose 5% Viaflo Bag 192.8 ML 33.3 MG CONT INF (05:40)
[2024-02-03] MEDS: 0.9% Saline Lock 10 ML Syringe IV (05:49)
[2024-02-03 06:24] LABS: ALB/GLOB Ratio 1.3 RATIO (0.9-2.4); AST(SGOT) 20 U/L (15-37); Alanine Aminotransfer ALT/SGPT 22 U/L (13-56); Albumin, Serum 3.8 g/dL (3.2-5.0); Alkaline Phosphatase 168 U/L (45-117); Anion Gap 4 (5-15); BUN 20 mg/dL (7-18); BUN/Creat Ratio 21.4 RATIO (10-20); Calcium,Total 9.3 mg/dL (8.5-10.1); Chloride 109 mmol/L (98-107); Cholesterol 130 mg/dL (200); Creatinine, Serum 0.93 mg/dL (0.55-1.02); EST Glomerular Filtration Rate 61 mL/min (>60); Est Glom Filt Rate - Afr Amer 73 mL/min (>60); Glucose 97 mg/dL (74-106); High Density Lipoprotein 57 mg/dL; Potassium 4.2 mmol/L (3.5-5.1); Protein, Total 6.8 g/dL (6.4-8.2); Sodium Level 139 mmol/L (136-145); Triglycerides 93 mg/dL; Very Low Density Lipoprotein 19 mg/dL (5-40)
--- NOTE | 2024-02-03 06:36 | PCM.HOSP.N ---
Hospitalist Note HR decreased into 40s/low 50s, BP mildly decreased, will hold amiodarone and reassess.
[2024-02-03 07:04] LABS: Troponin-I HS 13 pg/mL (3.0-54.0)
--- NOTE | 2024-02-03 09:00 | CASEMGMT ---
WILMAN received a call from Bessie with crisis at [facility]. Bessie said patient's called her and said patient called him upset she is being sent away and does not want to go. WILMAN let Bessie know that WILMAN has not heard anything about patient being discharged or sent away. Bessie said she will call the back. Lea AMATO
--- NOTE | 2024-02-03 09:30 | CASEMGMT ---
WILMAN was informed by rn relief charge that patient's is in patient's room stating patient does not want treatment and he wants to take her home. WILMAN checked with Bessie at crisis and she said from what she is reading they would be okay psychiatrically if patient were to be discharged home with . WILMAN notified rn relief charge. Lea Delgado STAFF PHYSICAL THERAPIST [place]
[2024-02-03] MEDS: Menthol/Lanolin/Calamine/Znox 113 GM Tube 1 APPLIC TOPICAL ×4 (09:51→22:37)
[2024-02-03] MEDS: APIXABAN 2.5 MG TABLET (WCH) PO ×2 (09:52→22:37)
[2024-02-03] MEDS: Aspirin E.C. 81 MG Tablet PO (09:53)
[2024-02-03] MEDS: Furosemide 40 MG Tablet PO (09:55)
[2024-02-03] MEDS: Potassium Chloride Oral Tablet 20 MEQ PO (09:56)
[2024-02-03] MEDS: lamoTRIgine 100 MG Tablet 200 MG PO ×2 (09:58→22:36)
[2024-02-03] MEDS: Spironolactone 25 MG Tablet PO (10:00)
[2024-02-03 11:04] LABS: Troponin-I HS 12 pg/mL (3.0-54.0)
--- NOTE | 2024-02-03 12:25 | MDS.RN ---
1134 Pt noted to have seizure like activity per family. Family stated it was about 15 seconds. Pt wasn't responding. Pt sitting up in bed and arms shaking I came into the room pt no longer shaking and responding to voice. Pt started arms shaking but still responding to me. Notified Tele neuro consulted
[2024-02-03 12:40] LABS: Bedside Glucose 89 mg/dL (74-106)
--- NOTE | 2024-02-03 15:32 | PCM.CONS.C ---
Assessment & Plan Assessment/Plan (1) NSVT (nonsustained ventricular tachycardia): PLAN: This appears to be atrial fibrillation with rate related aberrancy. Continue home medications at this time. (2) Atrial fibrillation: QUALIFIERS: Atrial fibrillation type: unspecified Qualified Code(s): I48.91 - Unspecified atrial fibrillation PLAN: Continue home medications. PLAN: Plan No further cardiac workup required at this time. We will sign off. If we can be of any further assistance please let us know. HPI Consult Data Date of Consult: 02/03/24 HPI Narrative Reason for Consultation: Suspected V. tach HPI Narrative: MAGDY MIRAMONTES, is a 83 F who presents after a fall. Please refer to ER and hospitalist note for full details. Cardiology consult was requested as telemetry revealed episodes of wide-complex rhythm and V. tach was suspected. Upon review of telemetry this appears to be A-fib with rate related aberrant conduction. [facility] Medical History Mitral regurgitation Aortic valve stenosis with insufficiency Atrial fibrillation Preoperative cardiovascular examination Congestive heart failure (CHF) Dementia Parkinson's disease Rotator cuff tear arthropathy of left shoulder Tremor Cardiomyopathy Aortic stenosis Pericardial effusion Anxiety Depression Hypertension Diabetic neuropathy Acute systolic congestive heart failure Debility Pleural effusion due to CHF (congestive heart failure) Cellulitis of chest wall H/O cardiac murmur Depression Diabetic polyneuropathy Diabetes mellitus Chronic constipation Vitamin D deficiency Hypertension Inability to ambulate due to knee Debility Acute postoperative pain of right knee Wears glasses History of steroid therapy Diabetes Ambulates with cane Arthritis Back pain Injury of back Injury of head and neck Epilepsy Dietary restriction Former smoker Chronic cough Neuropathy History of pain when walking History of stress test History of echocardiogram Cardiology follow-up encounter History of atrial fibrillation Hx of vaginal delivery Hx of back injury Atherosclerotic heart disease of [place] coronary artery without angina pectoris Abnormal stress test History of left heart catheterization (LHC) (~06/02/22) Essential hypertension Other jail (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 Neuropathy, diabetic Nephrolithiasis Hypertension DM2 (diabetes mellitus, type 2) Paroxysmal atrial fibrillation Home Medications ?Medication ?Instructions ?Recorded ?Last Taken ?Type duloxetine 30 mg capsule,delayed 30 mg PO QHS NEUROPATHY 09/22/20 07/21/23 History release nitroglycerin 0.4 mg sublingual 0.4 mg sublingual Q5M PRN 06/11/22 Unknown Rx tablet Cardiac/Chest Pain #0 tabs cyanocobalamin (vitamin B-12) 1,000 mcg PO DAILY supplement 08/10/22 07/21/23 History 1,000 mcg tablet (Vitamin B-12) oxycodone 5 mg tablet 5 mg PO Q4H PRN PRN Pain Score 11/24/22 Unknown Rx 6-10 7 days #28 tabs apixaban 2.5 mg tablet (Eliquis) 2.5 mg PO BID #180 tabs 01/04/23 07/21/23 Rx furosemide 40 mg tablet 40 mg PO DAILY Diuretic 01/04/23 07/21/23 History aspirin 81 mg tablet,delayed 81 mg PO DAILY 04/08/23 06/23/23 09:00 History release (Adult Low Dose Aspirin) diltiazem HCl 120 mg 120 mg PO DINNER heart 05/23/23 07/21/23 History capsule,extended release 24 hr (Cartia XT) losartan 25 mg tablet 25 mg PO QHS #90 tabs 10/03/23 Unknown Rx metoprolol succinate 25 mg 25 mg PO DAILY HEART #90 tabs 10/28/23 Unknown Rx tablet,extended release 24 hr pomegran fruit xt-pomegra seed 250 cap PO 01/12/24 Unknown History mg capsule potassium chloride 20 mEq 20 meq PO DAILY 01/12/24 Unknown History tablet,extended release(part/cryst) divalproex 250 mg tablet,delayed 250 mg PO BID #60 tabs 01/19/24 Unknown Rx release donepezil 10 mg tablet 10 mg PO QHS #90 tabs 01/19/24 Unknown Rx lamotrigine 200 mg tablet 200 mg PO BID #60 tabs 01/19/24 Unknown Rx spironolactone 25 mg tablet 25 mg PO DAILY #90 tabs 01/26/24 Unknown Rx Allergy/AdvReac Type Severity Reaction Status Date / Time levetiracetam Allergy Other Verified 02/02/24 14:02 nickel Allergy Rash Verified 02/02/24 14:02 sulfamethoxazole (From Allergy Itching Verified 02/02/24 14:02 Bactrim) trimethoprim (From Bactrim) Allergy Itching Verified 02/02/24 14:02 codeine AdvReac Nausea Verified 02/02/24 14:02 milk AdvReac Nausea/Vom/ Verified 02/02/24 14:02 Diarrhea Family History Father No problems noted. Mother No problems noted. Surgical History History of left hip hemiarthroplasty History of total right knee replacement (TKR) S/P total knee arthroplasty Hx of fusion of cervical spine Hx of cystoscopy Amputated toe of right foot History of hysterectomy History of tonsillectomy Deviated septum History of appendectomy History of cholecystectomy History of neck surgery Social History household members: spouse Smoking Status: Former smoker alcohol intake: never substance use type: does not use caffeine: No what type of physical activity do you participate in: other details: physical therapy seatbelt use: always do you feel safe at home: Yes Physical Exam Const alert and no apparent distress HEENT normocephalic Eyes no scleral icterus Resp normal respiratory effort Cardio Cardio Narrative: Irregular rhythm Risk Stratification Risk Stratification Applicable: No Charges/Coding Visit Charges Inpatient E&M: 27171 Init Hosp L1 Objective Data Vital Signs: Vital Signs Temp Pulse Resp BP Pulse Ox O2 Del Method O2 Flow Rate 98 F 80 20 H 111/56 L 99 Nasal Cannula 2 02/03/24 12:56 02/03/24 12:56 02/03/24 12:56 02/03/24 12:56 02/03/24 12:56 02/03/24 12:56 02/03/24 12:56 Oxygen Flow Rate (L/min) 2 Oxygen Delivery Method Nasal Cannula Weight: 186 lb 4.65 oz Body Mass Index (BMI) 29.1 Intake & Output: Intake and Output for Last 24 Hours 02/01/24 02/02/24 02/03/24 23:59 23:59 23:59 Intake Total 1000 / 1000 1091.88 / 1091.88 Output Total 500 / 500 Balance 1000 / 1000 591.88 / 591.88 Lab / Micro Data 02/03/24 04:39 02/03/24 04:39 Labs: Laboratory Results - last 24 hr 02/02/24 14:26: Urine Opiates Screen NEGATIVE, Urine Methadone Screen NEGATIVE, Ur Barbiturates Screen NEGATIVE, Ur Phencyclidine Scrn NEGATIVE, Ur Amphetamines Screen NEGATIVE, MDMA (Ecstasy) Screen NEGATIVE, U Benzodiazepines Scrn NEGATIVE, Urine Cocaine Screen NEGATIVE, U Cannabinoids Screen NEGATIVE, Ur Drug Screen Comment 02/02/24 22:45: Sodium 143, Potassium 3.8, Chloride 110 H, Carbon Dioxide 27.0, Anion Gap 6, BUN 19 H, Creatinine 0.83, Estim Creat Clear Calc 54.26, Est GFR (MDRD) Af Amer 84, Est GFR (MDRD) Non-Af 69, BUN/Creatinine Ratio 22.8 H, Glucose 90, Calcium 8.7, Phosphorus 2.7, Magnesium 2.2, Troponin I High Sens 11 02/02/24 23:48: Valproic Acid 12 L 02/03/24 04:39: WBC 9.4, RBC 3.72 L, Hgb 12.6, Hct 39.9, MCV 107.3 H, MCH 33.9 H, MCHC 31.6 L, RDW Std Deviation 55.6 H, RDW Coeff of Robert 14.3, Plt Count 276, MPV 9.1, Immature Gran % (Auto) 0.400, Neut % (Auto) 69.2, Lymph % (Auto) 20.0, [place] % (Auto) 8.2, Eos % (Auto) 1.8, Baso % (Auto) 0.4, Absolute Neuts (auto) 6.5, Absolute Lymphs (auto) 1.89, Nucleated RBC % 0, Sodium 139, Potassium 4.2, Chloride 109 H, Carbon Dioxide 26.0, Anion Gap 4 L, BUN 20 H, Creatinine 0.93, Estim Creat Clear Calc 49.40, Est GFR (MDRD) Af Amer 73, Est GFR (MDRD) Non-Af 61, BUN/Creatinine Ratio 21.4 H, Glucose 97, Calcium 9.3, Total Bilirubin 0.80, AST 20, ALT 22, Alkaline Phosphatase 168 H, Troponin I High Sens 12, Total Protein 6.8, Albumin 3.8, Globulin 3.0, Albumin/Globulin Ratio 1.3, Triglycerides 93, Cholesterol 130, LDL Cholesterol 54, VLDL Cholesterol 19, HDL Cholesterol 57 02/03/24 06:25: Troponin I High Sens 13 02/03/24 10:39: Troponin I High Sens 12 02/03/24 12:15: POC Glucose 89 Cardiology Labs/Tests 02/02/24 22:45: Sodium 143, Potassium 3.8, Chloride 110 H, Carbon Dioxide 27.0, Anion Gap 6, BUN 19 H, Creatinine 0.83, Est GFR (MDRD) Af Amer 84, Est GFR (MDRD) Non-Af 69, BUN/Creatinine Ratio 22.8 H, Glucose 90, Calcium 8.7, Phosphorus 2.7, Magnesium 2.2 02/03/24 04:39: WBC 9.4, RBC 3.72 L, Hgb 12.6, Hct 39.9, MCV 107.3 H, MCH 33.9 H, MCHC 31.6 L, Plt Count 276, MPV 9.1, Immature Gran % (Auto) 0.400, Neut % (Auto) 69.2, Lymph % (Auto) 20.0, [place] % (Auto) 8.2, Eos % (Auto) 1.8, Baso % (Auto) 0.4, Absolute Neuts (auto) 6.5, Nucleated RBC % 0, Sodium 139, Potassium 4.2, Chloride 109 H, Carbon Dioxide 26.0, Anion Gap 4 L, BUN 20 H, Creatinine 0.93, Est GFR (MDRD) Af Amer 73, Est GFR (MDRD) Non-Af 61, BUN/Creatinine Ratio 21.4 H, Glucose 97, Calcium 9.3, Total Bilirubin 0.80, Triglycerides 93, Cholesterol 130, LDL Cholesterol 54, VLDL Cholesterol 19, HDL Cholesterol 57 Rhythm: EKG: ECHO: Stress Test: Cardiac Cath: PCI: CT Surgery: Holter monitor: EPS: PPM: CXR: Chest CT Scan:
--- NOTE | 2024-02-03 15:51 | PN_ITS ---
Subjective Subjective Patient seen and examined. Her was by her bedside. She was admitted with a complaint of mechanical fall and probable pseudoseizures. She has no active complaints today. She says she wants to go home as she doesnt think she should be in the hospital. She denied any dizziness, lightheadedness, nausea, vomiting or any other symptoms. Review of systems is otherwise negative. She had 2D echo this morning. Later this morning, her nurse reported she had another episode of seizure-like activity. She was alert throughout the episode. Neurology consulted. Objective Data Objective Data Vital Signs: Vital Signs Temp Pulse Resp BP Pulse Ox O2 Del Method O2 Flow Rate 98 F 80 20 H 111/56 L 99 Nasal Cannula 2 02/03/24 12:56 02/03/24 12:56 02/03/24 12:56 02/03/24 12:56 02/03/24 12:56 02/03/24 12:56 02/03/24 12:56 Oxygen Flow Rate (L/min) 2 Oxygen Delivery Method Nasal Cannula Weight: 186 lb 4.65 oz Body Mass Index (BMI) 29.1 Intake & Output: Intake and Output for Last 24 Hours 02/01/24 02/02/24 02/03/24 23:59 23:59 23:59 Intake Total 1000 / 1000 1091.88 / 1091.88 Output Total 500 / 500 Balance 1000 / 1000 591.88 / 591.88 Lab / Micro Data 02/03/24 04:39 02/03/24 04:39 Labs: Laboratory Results - last 24 hr 02/02/24 14:26: Urine Opiates Screen NEGATIVE, Urine Methadone Screen NEGATIVE, Ur Barbiturates Screen NEGATIVE, Ur Phencyclidine Scrn NEGATIVE, Ur Amphetamines Screen NEGATIVE, MDMA (Ecstasy) Screen NEGATIVE, U Benzodiazepines Scrn NEGATIVE, Urine Cocaine Screen NEGATIVE, U Cannabinoids Screen NEGATIVE, Ur Drug Screen Comment 02/02/24 22:45: Sodium 143, Potassium 3.8, Chloride 110 H, Carbon Dioxide 27.0, Anion Gap 6, BUN 19 H, Creatinine 0.83, Estim Creat Clear Calc 54.26, Est GFR (MDRD) Af Amer 84, Est GFR (MDRD) Non-Af 69, BUN/Creatinine Ratio 22.8 H, Glucose 90, Calcium 8.7, Phosphorus 2.7, Magnesium 2.2, Troponin I High Sens 11 02/02/24 23:48: Valproic Acid 12 L 02/03/24 04:39: WBC 9.4, RBC 3.72 L, Hgb 12.6, Hct 39.9, MCV 107.3 H, MCH 33.9 H , MCHC 31.6 L, RDW Std Deviation 55.6 H, RDW Coeff of Robert 14.3, Plt Count 276, MPV 9.1, Immature Gran % (Auto) 0.400, Neut % (Auto) 69.2, Lymph % (Auto) 20.0, [place] % (Auto) 8.2, Eos % (Auto) 1.8, Baso % (Auto) 0.4, Absolute Neuts (auto) 6.5, Absolute Lymphs (auto) 1.89, Nucleated RBC % 0, Sodium 139, Potassium 4.2, Chloride 109 H, Carbon Dioxide 26.0, Anion Gap 4 L, BUN 20 H, Creatinine 0.93, Estim Creat Clear Calc 49.40, Est GFR (MDRD) Af Amer 73, Est GFR (MDRD) Non-Af 61, BUN/Creatinine Ratio 21.4 H, Glucose 97, Calcium 9.3, Total Bilirubin 0.80, AST 20, ALT 22, Alkaline Phosphatase 168 H, Troponin I High Sens 12, Total Protein 6.8, Albumin 3.8, Globulin 3.0, Albumin/Globulin Ratio 1.3, Triglycerides 93, Cholesterol 130, LDL Cholesterol 54, VLDL Cholesterol 19, HDL Cholesterol 57 02/03/24 06:25: Troponin I High Sens 13 02/03/24 10:39: Troponin I High Sens 12 02/03/24 12:15: POC Glucose 89 Physical Exam Const alert and oriented x3 Constitutional Narrative: episodic confusion HEENT normocephalic, head/scalp atraumatic and moist oral mucous membranes Eyes PERRL and EOMs intact bilaterally Neck supple and no JVD Lymph Lymphatic: no lymphadenopathy noted and no lymphedema noted Resp normal respiratory effort, normal air movement and clear to auscultation bilaterally Cardio regular rate, regular rhythm, S1 normal heart sound, S2 normal heart sound and no murmurs GI normal to inspection, nondistended, normoactive bowel sounds, soft to palpation, non-tender and non-distended Extremity normal capillary refill, no clubbing, cyanosis or edema and no calf tenderness General Extremity: no tenderness to palpation of joints or extremities Skin General Skin Exam: no breakdown Neuro CN's II-XII intact bilaterally, no focal motor deficits, no sensory deficits noted and deep tendon reflexes 2+ bilaterally Motor Exam: general weakness Psych Psych Narrative: episodic confusion Assessment & Plan Assessment/Plan (1) NSVT (nonsustained ventricular tachycardia): (2) Cellulitis of left lower limb: (3) History of seizures: PLAN: Plan #Nonsustained vtach * Was admitted with a complaint of mechanical fall and found to be in nonsustained V. tach. She also has a history of A-fib. * 2D echo done this morning. * On metoprolol and Cardizem. He was started on amiodarone drip in the ED. * Cardiology on board. Per cardiology, no further workup at this time. To continue current home medications. * Cardiology reviewed telemetry and there was A-fib with aberrancy. 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 * She does have a history of seizures and is on lamotrigine and Depakote. Neurology saw her on 01/19/2024 and there is concern for pseudoseizures. * Seizure precautions. Neurology consulted. Await recommendations. * Patient was also agitated in the ED and plans are for [place] psych evaluation when she is medically stable. #Debility and weakness due to mechanical falls * Fell in the bathroom before admission. CT of the brain showed no acute pathology and skeletal survey was also negative for any acute fracture. * PT OT on board. Fall precautions. #History of heart failure with reduced ejection fraction * Not in exacerbation. Has known EF of 30% from 2D echo done in February 2023 which also showed moderate to severe global hypokinesis * On metoprolol, lisinopril and spironolactone as well as Lasix. * 2D echo done today. Read is pending. * #CAD: On aspirin and Plavix. Not on statin. Unclear why as is not listed as an allergy. #Hypertension: On spironolactone and metoprolol as well as losartan. Also on Cardizem. Also on Lasix. IV hydralazine as needed. #DVT prophylaxis: * On Eliquis. * She has been having mechanical fall so will discuss with patient about the risk of brain bleed due to falls and have a shared decision-making process with patient about whether to stop it or not. Charges/Coding Visit Charges Inpatient E&M: 60399 Subs Hosp L3
[2024-02-03] MEDS: dilTIAZem CD 120 MG Capsule PO (17:56)
[2024-02-03] MEDS: DULoxetine Hcl 30 MG Capsule PO (22:36)
[2024-02-03] MEDS: Donepezil HCl 10 MG Tablet PO (22:36)
[2024-02-03] MEDS: Losartan Potassium 25 MG Tablet PO (22:36)
[2024-02-04 04:00] VITALS: BP 104/73; PULSE 79; RESP 18; TEMP 36.4; O2SAT 96
[2024-02-04 05:24] LABS: Absolute Lymphocyte Count 1.33 X10^3/uL (0.83-4.51); Absolute Neutrophil Count 5.4 X10^3/uL (2.0-7.7); Basophil# 0.05 X10^3/uL; Basophil% 0.7 % (0-1); Eosinophil# 0.24 X10^3/uL; Eosinophils% 3.2 % (0-5); Hematocrit 37.9 % (37-47); Hemoglobin 11.8 g/dL (12.0-15.0); Lymphocyte # 1.33 X10^3/ul (0.83-4.51); Lymphocyte % 17.6 % (19-41); Mean Corp Hgb Conc 31.1 g/dL (32-36); Mean Corpuscular Hgb 33.4 pg (27.0-32.0); Mean Corpuscular Volume 107.4 fL (81-99); Mean Platelet Vol. 9.3 fl (6.2-12.0); Monocyte# 0.57 X10^3/uL; Monocyte% 7.5 % (0-10); NRBC Flagged by Analyzer 0 % (0-5); Neutrophil # 5.35 X10^3/uL (2.7-7.7); Neutrophil % 70.6 % (47-70); Platelet Count 261 K/mm3 (150-450); RBC Distribution Width CV 14.3 % (11.6-14.6); RBC Distribution Width SD 56.3 fl (35.1-43.9); Red Blood Count 3.53 M/mm3 (4.2-5.4); White Blood Count 7.6 K/mm3 (4.4-11.0)
[2024-02-04 05:50] LABS: Anion Gap 5 (5-15); BUN 16 mg/dL (7-18); BUN/Creat Ratio 19.2 RATIO (10-20); Calcium,Total 9.3 mg/dL (8.5-10.1); Chloride 107 mmol/L (98-107); Creatinine, Serum 0.83 mg/dL (0.55-1.02); EST Glomerular Filtration Rate 69 mL/min (>60); Est Glom Filt Rate - Afr Amer 84 mL/min (>60); Estimated Creatinine Clearance 55.36 ml/min; Glucose 101 mg/dL (74-106); Potassium 3.9 mmol/L (3.5-5.1); Sodium Level 139 mmol/L (136-145)
[2024-02-04 09:14] VITALS: BP 101/58; PULSE 77; RESP 18; TEMP 36.4; O2SAT 94
[2024-02-04 09:25] VITALS: PULSE 77
[2024-02-04] MEDS: Spironolactone 25 MG Tablet PO (09:25)
[2024-02-04] MEDS: Aspirin E.C. 81 MG Tablet PO (09:25)
[2024-02-04] MEDS: lamoTRIgine 100 MG Tablet 200 MG PO ×2 (09:25→20:41)
[2024-02-04] MEDS: Metoprolol(XL)Succ 25 MG Tablet PO (09:25)
[2024-02-04] MEDS: Divalproex Sodium 250 MG Tablet PO ×2 (09:25→20:42)
[2024-02-04] MEDS: APIXABAN 2.5 MG TABLET (WCH) PO ×2 (09:26→20:42)
[2024-02-04] MEDS: Furosemide 40 MG Tablet PO (09:26)
[2024-02-04] MEDS: Potassium Chloride Oral Tablet 20 MEQ PO (09:27)
[2024-02-04] MEDS: Vibegron 75 MG TABLET PO (09:29)
[2024-02-04] MEDS: Famotidine 20 MG Tablet PO (09:29)
[2024-02-04] MEDS: Menthol/Lanolin/Calamine/Znox 113 GM Tube 1 APPLIC TOPICAL ×4 (09:34→20:42)
--- NOTE | 2024-02-04 10:40 | NEURO.CONS ---
Assessment and Plan: Neuro Assessment/Plan MAGDY MIRAMONTES is a 83 F with a past medical history of epilepsy and pseudoseizures, anxiety, new onset afib being evaluated by Teleneurology for increased seizure frequency. On evaluation of records and review of her history, her new seizures do appear non-epileptic in nature. On witnessing the event, also has many features of non-epileptic events. Exam is nonfocal. At this itime recommend EEG and will attempt to capture the event. Continue home Lamictal at 200mg BID and VPA at 250mg BID. I personally attended this patient and spent a total time of 60 minutes evaluating this patient including clinical assessment, review of chart, medical history imaging, and determining appropriate treatment and workup. HPI Consult Data Date of Consult: 02/05/24 HPI Narrative HPI Narrative: Patient seen and examined. Her was by her bedside. She was admitted with a complaint of mechanical fall and probable pseudoseizures. She has no active complaints today. She says she wants to go home as she doesnt think she should be in the hospital. She denied any dizziness, lightheadedness, nausea, vomiting or any other symptoms. Review of systems is otherwise negative. She had 2D echo this morning. Later this morning, her nurse reported she had another episode of seizure-like activity. She was alert throughout the episode. Neurology consulted. Nonsustained vtach Was admitted with a complaint of mechanical fall and found to be in nonsustained V. tach. She also has a history of A-fib. 2D echo done this morning. On metoprolol and Cardizem. He was started on amiodarone drip in the ED. Cardiology on board. Per cardiology, no further workup at this time. To continue current home medications. Cardiology reviewed telemetry and there was A-fib with aberrancy. 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 She does have a history of seizures and is on lamotrigine and Depakote. Neurology saw her on 01/19/2024 and there is concern for pseudoseizures. Seizure precautions. Neurology consulted. Await recommendations. Patient was also agitated in the ED and plans are for [facility] evaluation when she is medically stable. Neurologic History: Last year had a grandmal sz. Had been sz free since last May. She was at [facility] for sz monitoring. She is currently on anti-sz medications - has increased the Lamictal and VPA recently. Was doing well a couple days ago and was having seizures more frequently. Pt is awake and there is shaking all over. Eyes are open and she will respond durin gthe seizures. Pt states she had about 3 sz before coming to the hospital. Pt states she does not remember them happening. Sometimes she remembers when they happen and sometimes she does not. Pt states she is not awake during the events even though she is aware of them. She does not know when seizures are about to happen. states she gets a headache before she has a seizure event. The seizures last 1-2 minutes. Patient had an event during our interview. Consisted of R arm shaking then eyes rolled back into head and L arm had upward tonic contraction. Pt was verbally responsive the entire time. Symptoms lasted 1 min and then pt was able to respond and move arms and legs. There was no post ictal period. She then had R arm shakign several more times during my interview with her, all of which could be stopped with asking patient to move her arms. Per pt has been under a lot of stress as their son was recently diagnosed with brain tumor. This has been over the last 3 weeks, during which her seizures have been more frequent. [facility] Medical History Mitral regurgitation Aortic valve stenosis with insufficiency Atrial fibrillation Preoperative cardiovascular examination Congestive heart failure (CHF) Dementia Parkinson's disease Rotator cuff tear arthropathy of left shoulder Tremor Cardiomyopathy Aortic stenosis Pericardial effusion Anxiety Depression Hypertension Diabetic neuropathy Acute systolic congestive heart failure Debility Pleural effusion due to CHF (congestive heart failure) Cellulitis of chest wall H/O cardiac murmur Depression Diabetic polyneuropathy Diabetes mellitus Chronic constipation Vitamin D deficiency Hypertension Inability to ambulate due to knee Debility Acute postoperative pain of right knee Wears glasses History of steroid therapy Diabetes Ambulates with cane Arthritis Back pain Injury of back Injury of head and neck Epilepsy Dietary restriction Former smoker Chronic cough Neuropathy History of pain when walking History of stress test History of echocardiogram Cardiology follow-up encounter History of atrial fibrillation Hx of vaginal delivery Hx of back injury Atherosclerotic heart disease of [place] coronary artery without angina pectoris Abnormal stress test History of left heart catheterization (LHC) (~06/02/22) Essential hypertension Other residential (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 Neuropathy, diabetic Nephrolithiasis Hypertension DM2 (diabetes mellitus, type 2) Paroxysmal atrial fibrillation Home Medications ?Medication ?Instructions ?Recorded ?Last Taken ?Type duloxetine 30 mg capsule,delayed 30 mg PO QHS NEUROPATHY 09/22/20 07/21/23 History release cyanocobalamin (vitamin B-12) 1,000 mcg PO DAILY supplement 08/10/22 07/21/23 History 1,000 mcg tablet (Vitamin B-12) oxycodone 5 mg tablet 5 mg PO Q4H PRN PRN Pain Score 11/24/22 Unknown Rx 6-10 7 days #28 tabs apixaban 2.5 mg tablet (Eliquis) 2.5 mg PO BID #180 tabs 01/04/23 07/21/23 Rx furosemide 40 mg tablet 40 mg PO DAILY Diuretic 01/04/23 07/21/23 History aspirin 81 mg tablet,delayed 81 mg PO DAILY blood thinner 04/08/23 06/23/23 09:00 History release (Adult Low Dose Aspirin) diltiazem HCl 120 mg 120 mg PO DINNER heart 05/23/23 07/21/23 History capsule,extended release 24 hr (Cartia XT) losartan 25 mg tablet 25 mg PO QHS #90 tabs 10/03/23 Unknown Rx metoprolol succinate 25 mg 25 mg PO DAILY HEART #90 tabs 10/28/23 Unknown Rx tablet,extended release 24 hr potassium chloride 20 mEq 20 meq PO DAILY supplement 01/12/24 Unknown History tablet,extended release(part/cryst) divalproex 250 mg tablet,delayed 250 mg PO BID #60 tabs 01/19/24 Unknown Rx release donepezil 10 mg tablet 10 mg PO QHS #90 tabs 01/19/24 Unknown Rx lamotrigine 200 mg tablet 200 mg PO BID #60 tabs 01/19/24 Unknown Rx spironolactone 25 mg tablet 25 mg PO DAILY #90 tabs 01/26/24 Unknown Rx famotidine 20 mg tablet 20 mg PO BID stomach 02/04/24 Unknown History vibegron 75 mg tablet (Gemtesa) 75 mg PO DAILY bladder muscle 02/04/24 Unknown History dysfunction Allergy/AdvReac Type Severity Reaction Status Date / Time levetiracetam Allergy Other Verified 02/02/24 14:02 nickel Allergy Rash Verified 02/02/24 14:02 sulfamethoxazole (From Allergy Itching Verified 02/02/24 14:02 Bactrim) trimethoprim (From Bactrim) Allergy Itching Verified 02/02/24 14:02 codeine AdvReac Nausea Verified 02/02/24 14:02 milk AdvReac Nausea/Vom/ Verified 02/02/24 14:02 Diarrhea Family History Father No problems noted. Mother No problems noted. Surgical History History of left hip hemiarthroplasty History of total right knee replacement (TKR) S/P total knee arthroplasty Hx of fusion of cervical spine Hx of cystoscopy Amputated toe of right foot History of hysterectomy History of tonsillectomy Deviated septum History of appendectomy History of cholecystectomy History of neck surgery Social History household members: spouse Smoking Status: Former smoker alcohol intake: never substance use type: does not use caffeine: No what type of physical activity do you participate in: other details: physical therapy seatbelt use: always do you feel safe at home: Yes Vital Signs Vital Signs Vital Signs: 02/03/24 12:34 02/03/24 12:47 02/03/24 12:56 Temperature 98 F Temperature Source Oral Pulse Rate 80 Pulse Strength Respiratory Rate 20 H Respiratory Effort Normal Non-Labored Blood Pressure 111/56 L Blood Pressure Mean 74 Blood Pressure Source Monitor Blood Pressure Position Semi-Fowlers Blood Pressure Location Right Arm Pulse Ox 99 Oxygen Delivery Method Nasal Cannula Oxygen Flow Rate (L/min) 2 2 02/03/24 17:00 02/03/24 22:00 02/03/24 22:05 Temperature 97.9 F Temperature Source Oral Pulse Rate 76 Pulse Strength Normal (2+) Respiratory Rate 18 Respiratory Effort Normal Non-Labored Blood Pressure 124/68 H Blood Pressure Mean 86 Blood Pressure Source Monitor Blood Pressure Position Semi-Fowlers Blood Pressure Location Right Arm Pulse Ox 99 Oxygen Delivery Method Nasal Cannula Nasal Cannula Oxygen Flow Rate (L/min) 2 2 02/03/24 22:09 02/03/24 22:09 02/04/24 03:51 Temperature 97.6 F L 97.6 F L Temperature Source Oral Oral Pulse Rate 66 66 Pulse Strength Respiratory Rate 18 18 Respiratory Effort Normal Non-Labored Blood Pressure 104/57 L 104/57 L Blood Pressure Mean 72 72 Blood Pressure Source Monitor Blood Pressure Position Semi-Fowlers Blood Pressure Location Left Arm Pulse Ox 97 97 Oxygen Delivery Method Room Air Room Air Nasal Cannula Oxygen Flow Rate (L/min) 2 02/04/24 04:00 02/04/24 04:00 02/04/24 09:14 Temperature 97.6 F L 97.6 F L 97.6 F L Temperature Source Oral Oral Temporal Pulse Rate 79 79 77 Pulse Strength Respiratory Rate 18 18 18 Respiratory Effort Blood Pressure 104/73 104/73 101/58 L Blood Pressure Mean 83 83 72 Blood Pressure Source Monitor Monitor Blood Pressure Position Semi-Fowlers Sitting Blood Pressure Location Left Arm Left Arm Pulse Ox 96 96 94 Oxygen Delivery Method Room Air Room Air Room Air Oxygen Flow Rate (L/min) 02/04/24 09:25 Temperature Temperature Source Pulse Rate 77 Pulse Strength Respiratory Rate Respiratory Effort Blood Pressure Blood Pressure Mean Blood Pressure Source Blood Pressure Position Blood Pressure Location Pulse Ox Oxygen Delivery Method Oxygen Flow Rate (L/min) Weight Weight: 84.5 kg Body Mass Index (BMI) 29.1 EEG Results Procedure Details EEG Procedure Details: MAGDY MIRAMONTES is a 83 year old F with a past medical history of , who presents for evaluation of Electroencephalogram on DATE at TIME Physical Exam Narrative -? General: Laying comfortably in bed; in no acute distress. -? HENT: Normal oropharynx and mucosa. Normal external appearance of ears and nose. Exophthalmos. -? Neck: Supple, no pain or tenderness -? CV:? No peripheral edema. -? Pulmonary:? Normal respiratory effort. -? Ext: No cyanosis, edema, or deformity -? Skin: No rash. Normal palpation of skin.? -? Musculoskeletal: full range of motion; no joint tenderness. Normal digits and nails by inspection. No clubbing. -? NEURO: -? Mental Status: The patient was alert and oriented to time, place, and person. Normal recent/remote memory, concentration, and general fund of knowledge. -? Language: speech is clear.? Naming, repetition, fluency, and comprehension intact. -? Cranial Nerves: visual garcia full, no facial asymmetry, facial sensation intact, hearing intact, tongue midline, no evidence of atrophy or fibrillations. -? Motor: normal bulk, tone, and strength throughout. No pronator drift or satelliting. Upper and lower extremities equal bilaterally. -? Sensation- Intact to light touch bilaterally Lab / Micro Data 02/04/24 04:55 02/04/24 04:55 Labs: Laboratory Results - last 24 hr 02/03/24 10:39: Troponin I High Sens 12 02/03/24 12:15: POC Glucose 89 02/04/24 04:55: WBC 7.6, RBC 3.53 L, Hgb 11.8 L, Hct 37.9, MCV 107.4 H, MCH 33.4 H, MCHC 31.1 L, RDW Std Deviation 56.3 H, RDW Coeff of Robert 14.3, Plt Count 261, MPV 9.3, Immature Gran % (Auto) 0.400, Neut % (Auto) 70.6 H, Lymph % (Auto) 17.6 L, [place] % (Auto) 7.5, Eos % (Auto) 3.2, Baso % (Auto) 0.7, Absolute Neuts (auto) 5.4, Absolute Lymphs (auto) 1.33, Nucleated RBC % 0, Sodium 139, Potassium 3.9, Chloride 107, Carbon Dioxide 27.0, Anion Gap 5, BUN 16, Creatinine 0.83, Estim Creat Clear Calc 55.36, Est GFR (MDRD) Af Amer 84, Est GFR (MDRD) Non-Af 69, BUN/Creatinine Ratio 19.2, Glucose 101, Calcium 9.3 Active Medications Active Medications Active Medications: Current Medications Generic Name Dose Route Start Last Admin Trade Name Freq PRN Reason Stop Dose Admin Acetaminophen 650 mg 02/03/24 03:21 Acetaminophen 325 Mg Tablet PO Q4H PRN PRN Fever, pain 1-02/22 Al Hydrox/Mg Hydrox/Simethicone 30 ml 02/03/24 03:21 Mag /Aluminum/Simeth [facility] Udc 30 Ml Oral.Susp PO Q6H PRN PRN Gastric Burning Apixaban 2.5 mg 02/03/24 10:00 02/04/24 09:26 Apixaban 2.5 Mg Tablet ([facility]) PO 2.5 mg BID ADÁN Administration Aspirin 81 mg 02/03/24 10:00 02/04/24 09:25 Aspirin E.C. 81 Mg Tablet PO 81 mg DAILY ADÁN Administration Calamine/Phenol 1 applic 02/03/24 10:00 02/04/24 09:34 Menthol/Lanolin/Calamine/Znox 113 Gm Tube TOPICAL 1 applic 4X/DAY ADÁN Administration Protocol Diltiazem HCl 120 mg 02/03/24 17:00 02/03/24 17:56 Diltiazem Cd 120 Mg Capsule PO 120 mg DINNER ADÁN Administration Protocol Divalproex Sodium 250 mg 02/03/24 03:21 02/04/24 09:25 Divalproex Sodium 250 Mg Tablet PO 250 mg BID ADÁN Administration Donepezil HCl 10 mg 02/03/24 22:00 02/03/24 22:36 Donepezil Hcl 10 Mg Tablet PO 10 mg QHS ADÁN Administration Duloxetine HCl 30 mg 02/03/24 22:00 02/03/24 22:36 Duloxetine Hcl 30 Mg Capsule PO 30 mg QHS ADÁN Administration Famotidine 20 mg 02/04/24 10:00 02/04/24 09:29 Famotidine 20 Mg Tablet PO 20 mg DAILY ADÁN Administration Furosemide 40 mg 02/03/24 10:00 02/04/24 09:26 Furosemide 40 Mg Tablet PO 40 mg DAILY ADÁN Administration Protocol Guaifenesin 20 ml 02/03/24 03:21 Guaifenesin 10 Ml Udc (200mg/10ml) PO Q4H PRN PRN COUGH Hydralazine HCl 10 mg 02/03/24 03:21 Hydralazine 20 Mg/Ml Vial IV Q4H PRN PRN SBP > 160 Protocol Sodium Chloride 250 mls @ 15 mls/hr 02/03/24 03:34 IV .[id number] PRN Additional IVPB Infusion Sodium Chloride 250 mls @ 15 mls/hr 02/03/24 03:34 IV .[id number] PRN Saline Flush Lamotrigine 200 mg 02/03/24 10:00 02/04/24 09:25 Lamotrigine 100 Mg Tablet PO 200 mg BID ADÁN Administration Lorazepam 1 mg 02/03/24 03:21 Lorazepam 2 Mg/Ml Syringe IV PRN PRN True Seizure, sternal rub 1st Losartan Potassium 25 mg 02/03/24 22:00 02/03/24 22:36 Losartan Potassium 25 Mg Tablet PO 25 mg QHS ADÁN Administration Protocol Melatonin 3 mg 02/03/24 03:21 Melatonin 3 Mg Tablet PO QHS PRN PRN INSOMNIA Metoprolol Succinate 25 mg 02/03/24 03:21 02/04/24 09:25 Metoprolol(Xl)Succ 25 Mg Tablet PO 25 mg DAILY ADÁN Administration Protocol Potassium Chloride 20 meq 02/03/24 10:00 02/04/24 09:27 Potassium Chloride Oral Tablet 20 Meq PO 20 meq DAILY ADÁN Administration Prochlorperazine Edisylate 5 mg 02/03/24 03:21 Prochlorperazine 10 Mg/2 Ml Vial IV Q4H PRN PRN Breakthrough Nausea/Vomiting Senna/Docusate Sodium 2 tablet 02/03/24 03:21 Senna/Docusate Sodium 1 Tablet PO BID PRN PRN Constipation Sodium Chloride 10 - 40 ml 02/03/24 03:34 02/03/24 05:49 0.9% Saline Lock 10 Ml Syringe IV 20 ml UD PRN Administration SALINE FLUSH Spironolactone 25 mg 02/03/24 10:00 02/04/24 09:25 Spironolactone 25 Mg Tablet PO 25 mg DAILY ADÁN Administration Protocol
--- NOTE | 2024-02-04 13:10 | PN_ITS ---
Subjective Subjective Patient seen and examined. She had no active complaints this morning. She was alert and communicative and had an uneventful night. Review of systems is otherwise negative. She has remained hemodynamically stable. Objective Data Objective Data Vital Signs: Vital Signs Temp Pulse Resp BP Pulse Ox O2 Del Method O2 Flow Rate 97.6 F L 77 18 101/58 L 94 Room Air 2 02/04/24 09:14 02/04/24 09:25 02/04/24 09:14 02/04/24 09:14 02/04/24 09:14 02/04/24 09:14 02/04/24 03:51 Oxygen Flow Rate (L/min) 2 Oxygen Delivery Method Room Air Weight: 186 lb 4.65 oz Body Mass Index (BMI) 29.1 Intake & Output: Intake and Output for Last 24 Hours 02/02/24 02/03/24 02/04/24 23:59 23:59 23:59 Intake Total 1000 / 1000 1091.88 / 1211.88 520 / 520 Output Total 1150 / 1400 575 / 575 Balance 1000 / 1000 -58.12 / -188.12 -55 / -55 Lab / Micro Data 02/04/24 04:55 02/04/24 04:55 Labs: Laboratory Results - last 24 hr 02/04/24 04:55: WBC 7.6, RBC 3.53 L, Hgb 11.8 L, Hct 37.9, MCV 107.4 H, MCH 33.4 H, MCHC 31.1 L, RDW Std Deviation 56.3 H, RDW Coeff of Robert 14.3, Plt Count 261, MPV 9.3, Immature Gran % (Auto) 0.400, Neut % (Auto) 70.6 H, Lymph % (Auto) 17.6 L, [place] % (Auto) 7.5, Eos % (Auto) 3.2, Baso % (Auto) 0.7, Absolute Neuts (auto) 5.4, Absolute Lymphs (auto) 1.33, Nucleated RBC % 0, Sodium 139, Potassium 3.9, Chloride 107, Carbon Dioxide 27.0, Anion Gap 5, BUN 16, Creatinine 0.83, Estim Creat Clear Calc 55.36, Est GFR (MDRD) Af Amer 84, Est GFR (MDRD) Non-Af 69, BUN/Creatinine Ratio 19.2, Glucose 101, Calcium 9.3 Physical Exam Const alert and oriented x3 General Appearance: cooperative and well developed HEENT normocephalic, head/scalp atraumatic and moist oral mucous membranes Eyes PERRL and EOMs intact bilaterally Neck supple and no JVD Lymph Lymphatic: no lymphadenopathy noted and no lymphedema noted Resp normal respiratory effort, normal air movement and clear to auscultation bilaterally Cardio regular rate, regular rhythm, S1 normal heart sound, S2 normal heart sound and no murmurs GI normal to inspection, nondistended, normoactive bowel sounds, soft to palpation, non-tender and non-distended Extremity normal capillary refill, no clubbing, cyanosis or edema and no calf tenderness General Extremity: no tenderness to palpation of joints or extremities Skin General Skin Exam: no breakdown Neuro CN's II-XII intact bilaterally, no focal motor deficits, no sensory deficits noted and deep tendon reflexes 2+ bilaterally Motor Exam: general weakness Psych Psych Narrative: episodic confusion Appearance: appropriate Assessment & Plan Assessment/Plan (1) NSVT (nonsustained ventricular tachycardia): (2) Cellulitis of left lower limb: (3) History of seizures: PLAN: Plan #Nonsustained vtach * Was admitted with a complaint of mechanical fall and found to be in nonsustained V. tach. She also has a history of A-fib. * 2D echo done yesterday, read is pending * On metoprolol and Cardizem. * Cardiology on board. Per cardiology, no further workup at this time. To continue current home medications. * Cardiology reviewed telemetry and there was A-fib with aberrancy. 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 * She does have a history of seizures and is on lamotrigine and Depakote. Neurology saw her on 01/19/2024 and there is concern for pseudoseizures. * Seizure precautions. Neurology consulted and recommends EEG. * continue current seizure meds * on lamictal and depakote * #Debility and weakness due to mechanical falls * Fell in the bathroom before admission. CT of the brain showed no acute pathology and skeletal survey was also negative for any acute fracture. * PT OT on board. Fall precautions. #History of heart failure with reduced ejection fraction * Not in exacerbation. Has known EF of 30% from 2D echo done in February 2023 which also showed moderate to severe global hypokinesis * On metoprolol, lisinopril and spironolactone as well as Lasix. * 2D echo done. Read is pending. * #CAD: On aspirin and Plavix. Not on statin. Unclear why as is not listed as an allergy. #Hypertension: On spironolactone and metoprolol as well as losartan. Also on Cardizem. Also on Lasix. IV hydralazine as needed. #DVT prophylaxis: * On Eliquis. * #Disposition: * Patient was to be assessed for placement in [facility] facility. * However I am informed by patient's nurse that the mental health crisis team evaluated her and okay with her going home with her which is medically stable. * Charges/Coding Visit Charges Inpatient E&M: 31652 Subs Hosp L2
--- NOTE | 2024-02-04 14:04 | CASEMGMT ---
SHANTE GARCIA Assessment Face to Face with patient for initial transition planning/care coordination assessment. RN RADHA introduced self and role at [facility], pt voices understanding. Pt is A&Ox3 and is resting comfortably in bed and is calm. Care providers, pharmacy, and demographics verified. Admitting dx: NSVT, Suspected Pseudoseizures PCP: Nahomy Bettencourt Specialists: Cecilio (Podiatry), Mecca (Neuro) Preferred Pharmacy: [facility] Insurance: [employer] [facility] Prescription Benefit: Yes LNOK: Kit Medrano (H), Andrew Stout (Son) Living Arrangements: Pt lives with her in a single story home with 2 steps to enter ADLs/IADLs: Pt states that she is independent at baseline. Pt is currently requiring assistance Transportation: Pt does not drive. Pt drives DME: Glucometer and enough supplies. Shower chair. Raised toilet seat. Cane. FWW. Grab bars. HHC/SNF: Hx with [facility] HH. Hx at [facility] and [facility] TCU Pt?s goal: Return to PLOF Plan: The original plan was for the pt to be admitted to [facility]. However, pt was cleared by crisis. Upon review regarding PT notes, the pt may benefit from further therapy prior to returning home. This SHANTE GARCIA discussed this with the pt. Pt states, I have done this before and I would be willing to go again. At this time, the pt is agreeable to SNF. SW updated. CM to remain available in the case that the pt discharges home. Kemi Iraheta RN, CM
[2024-02-04 15:18] VITALS: BP 91/50; PULSE 77; RESP 18; TEMP 36.4; O2SAT 94
--- NOTE | 2024-02-04 16:48 | CASEMGMT ---
Social Work SW created in [facility] a list of senior care facilities in network w/pt's insurance, in preferred geographic area, and complete w/quality and resource use data. Pt had indicated to CM that she is agreeable to SNF if needed. SW attempted to meet w/pt, she is getting testing done at the bedside at present. SW called , message left to call SW back. COLUMBA Odonnell
[2024-02-04 17:55] VITALS: BP 129/80
[2024-02-04] MEDS: dilTIAZem CD 120 MG Capsule PO (17:58)
[2024-02-04] MEDS: Donepezil HCl 10 MG Tablet PO (20:42)
[2024-02-04] MEDS: DULoxetine Hcl 30 MG Capsule PO (20:42)
[2024-02-04] MEDS: Losartan Potassium 25 MG Tablet PO (20:42)
[2024-02-04] MEDS: MELATONIN 3 MG TABLET PO (20:48)
[2024-02-04] MEDS: Nystatin Powder 15gm Bottle 1 APPLIC TOPICAL (20:48)
[2024-02-04 21:18] VITALS: BP 102/63; PULSE 84; RESP 16; TEMP 36.8; O2SAT 95
[2024-02-04] MEDS: proCHLORPERazine 10 MG/2 ML Vial 5 MG IV (22:22)
[2024-02-05 03:20] VITALS: BP 120/85; PULSE 84; RESP 18; TEMP 36.6; O2SAT 98
[2024-02-05] MEDS: Nystatin Powder 15gm Bottle 1 APPLIC TOPICAL ×3 (05:29→20:42)
[2024-02-05 06:00] VITALS: BMI 28.3
[2024-02-05 06:13] LABS: Absolute Neutrophil Count 6.5 X10^3/uL (2.0-7.7); Basophil# 0.05 X10^3/uL; Basophil% 0.5 % (0-1); Eosinophil# 0.17 X10^3/uL; Eosinophils% 1.8 % (0-5); Hematocrit 40.9 % (37-47); Hemoglobin 12.8 g/dL (12.0-15.0); Lymphocyte % 18.5 % (19-41); Mean Corp Hgb Conc 31.3 g/dL (32-36); Mean Corpuscular Hgb 33.6 pg (27.0-32.0); Mean Corpuscular Volume 107.3 fL (81-99); Mean Platelet Vol. 9.7 fl (6.2-12.0); Monocyte# 0.72 X10^3/uL; Monocyte% 7.8 % (0-10); NRBC Flagged by Analyzer 0 % (0-5); Neutrophil # 6.54 X10^3/uL (2.7-7.7); Neutrophil % 71.2 % (47-70); Platelet Count 290 K/mm3 (150-450); RBC Distribution Width CV 14.4 % (11.6-14.6); RBC Distribution Width SD 57.1 fl (35.1-43.9); Red Blood Count 3.81 M/mm3 (4.2-5.4); White Blood Count 9.2 K/mm3 (4.4-11.0)
[2024-02-05 06:56] LABS: Anion Gap 8 (5-15); BUN 21 mg/dL (7-18); BUN/Creat Ratio 23.2 RATIO (10-20); Calcium,Total 9.5 mg/dL (8.5-10.1); Chloride 106 mmol/L (98-107); Creatinine, Serum 0.91 mg/dL (0.55-1.02); EST Glomerular Filtration Rate 63 mL/min (>60); Est Glom Filt Rate - Afr Amer 76 mL/min (>60); Glucose 109 mg/dL (74-106); Potassium 3.9 mmol/L (3.5-5.1); Sodium Level 139 mmol/L (136-145)
[2024-02-05 08:45] VITALS: BP 95/52; PULSE 70; RESP 18; TEMP 36.5; O2SAT 97
[2024-02-05] MEDS: APIXABAN 2.5 MG TABLET (WCH) PO ×2 (08:48→20:43)
[2024-02-05] MEDS: Divalproex Sodium 250 MG Tablet PO ×2 (08:49→20:43)
[2024-02-05] MEDS: Menthol/Lanolin/Calamine/Znox 113 GM Tube 1 APPLIC TOPICAL ×4 (08:49→20:42)
[2024-02-05] MEDS: lamoTRIgine 100 MG Tablet 200 MG PO ×2 (08:50→20:43)
[2024-02-05] MEDS: Vibegron 75 MG TABLET PO (08:50)
[2024-02-05] MEDS: Furosemide 40 MG Tablet PO (08:50)
[2024-02-05] MEDS: Aspirin E.C. 81 MG Tablet PO (08:50)
[2024-02-05] MEDS: Famotidine 20 MG Tablet PO (08:51)
[2024-02-05] MEDS: Potassium Chloride Oral Tablet 20 MEQ PO (08:51)
[2024-02-05] MEDS: Spironolactone 25 MG Tablet PO (08:51)
[2024-02-05 09:05] VITALS: BP 95/52; PULSE 70
[2024-02-05] MEDS: 0.9% Saline Lock 10 ML Syringe IV (11:54)
[2024-02-05] MEDS: proCHLORPERazine 10 MG/2 ML Vial 5 MG IV (11:54)
--- NOTE | 2024-02-05 12:30 | PN.NEURO_ITS ---
Assessment and Plan: Neuro Assessment/Plan MAGDY MIRAMONTES is a 83 F with a past medical history of epilepsy and pseudoseizures, anxiety, new onset afib being evaluated by Teleneurology for increased seizure frequency. On evaluation of records and review of her history, her new seizures do appear non-epileptic in nature. On witnessing the event, also has many features of non-epileptic events. Exam is nonfocal. EEG captured events with no correlate. 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 Continue home Lamictal at 200mg BID and VPA at 250mg BID. Please obtain VPA level Will reevaluate tomorrow to make sure this is not the result of her seizure disorder. I personally attended this patient and spent a total time of 30 minutes evaluating this patient including clinical assessment, review of chart, medical history imaging, and determining appropriate treatment and workup. Subject: Neurology Subjective Pt is very somnolent today, unclear why. She states she slept well last night. She has had some events again while in hostpial EEG Results Procedure Details EEG Procedure Details: EEG read was normal, formal record pending. Objective Data Objective Data Vital Signs: Vital Signs Temp Pulse Resp BP Pulse Ox O2 Del Method O2 Flow Rate 97.7 F L 70 18 95/52 L 97 Room Air 2 02/05/24 08:45 02/05/24 09:05 02/05/24 08:45 02/05/24 09:05 02/05/24 08:45 02/05/24 08:45 02/05/24 08:37 Oxygen Flow Rate (L/min) 2 Oxygen Delivery Method Room Air Weight: 82.1 kg Body Mass Index (BMI) 28.3 Intake & Output: Intake and Output for Last 24 Hours 02/03/24 02/04/24 02/05/24 23:59 23:59 23:59 Intake Total 1091.88 / 1211.88 920 / 920 Output Total 1150 / 1400 775 / 775 0 / 0 Balance -58.12 / -188.12 145 / 145 0 / 0 Lab / Micro Data 02/05/24 05:10 02/05/24 05:10 Labs: Laboratory Results - last 24 hr 02/05/24 05:10: WBC 9.2, RBC 3.81 L, Hgb 12.8, Hct 40.9, MCV 107.3 H, MCH 33.6 H , MCHC 31.3 L, RDW Std Deviation 57.1 H, RDW Coeff of Robert 14.4, Plt Count 290, MPV 9.7, Immature Gran % (Auto) 0.200, Neut % (Auto) 71.2 H, Lymph % (Auto) 18.5 L, [place] % (Auto) 7.8, Eos % (Auto) 1.8, Baso % (Auto) 0.5, Absolute Neuts (auto) 6.5, Absolute Lymphs (auto) 1.70, Nucleated RBC % 0, Sodium 139, Potassium 3.9, Chloride 106, Carbon Dioxide 25.0, Anion Gap 8, BUN 21 H, Creatinine 0.91, Estim Creat Clear Calc 49.80, Est GFR (MDRD) Af Amer 76, Est GFR (MDRD) Non-Af 63, B UN/Creatinine Ratio 23.2 H, Glucose 109 H, Calcium 9.5 Physical Exam Narrative -? NEURO: -? Mental Status: The patient severely somnolent, had difficulty waking up, would wake up to loud voice. -? Language: speech is dysarthric.? Naming, repetition, fluency, and comprehension intact. -? Cranial Nerves: visual garcia full, no facial asymmetry -? Motor: normal bulk, tone, and strength throughout. No pronator drift or satelliting. Upper and lower extremities equal bilaterally.
--- NOTE | 2024-02-05 13:47 | PN_ITS ---
Subjective Subjective Patient seen and examined. She was a bit lethargic today, but more responsive. She had no active complaints. She denied any pain anywhere, any cough, chest pain, palpitations, dizziness, nausea, vomiting or any other symptoms. Review of systems is otherwise negative. Objective Data Objective Data Vital Signs: Vital Signs Temp Pulse Resp BP Pulse Ox O2 Del Method O2 Flow Rate 97.7 F L 70 18 95/52 L 97 Room Air 2 02/05/24 08:45 02/05/24 09:05 02/05/24 08:45 02/05/24 09:05 02/05/24 08:45 02/05/24 08:45 02/05/24 08:37 Oxygen Flow Rate (L/min) 2 Oxygen Delivery Method Room Air Weight: 180 lb 15.992 oz Body Mass Index (BMI) 28.3 Intake & Output: Intake and Output for Last 24 Hours 02/03/24 02/04/24 02/05/24 23:59 23:59 23:59 Intake Total 1091.88 / 1211.88 920 / 920 Output Total 1150 / 1400 775 / 775 0 / 0 Balance -58.12 / -188.12 145 / 145 0 / 0 Lab / Micro Data 02/05/24 05:10 02/05/24 05:10 Labs: Laboratory Results - last 24 hr 02/05/24 05:10: WBC 9.2, RBC 3.81 L, Hgb 12.8, Hct 40.9, MCV 107.3 H, MCH 33.6 H , MCHC 31.3 L, RDW Std Deviation 57.1 H, RDW Coeff of Robert 14.4, Plt Count 290, MPV 9.7, Immature Gran % (Auto) 0.200, Neut % (Auto) 71.2 H, Lymph % (Auto) 18.5 L, Real % (Auto) 7.8, Eos % (Auto) 1.8, Baso % (Auto) 0.5, Absolute Neuts (auto) 6.5, Absolute Lymphs (auto) 1.70, Nucleated RBC % 0, Sodium 139, Potassium 3.9, Chloride 106, Carbon Dioxide 25.0, Anion Gap 8, BUN 21 H, Creatinine 0.91, Estim Creat Clear Calc 49.80, Est GFR (MDRD) Af Amer 76, Est GFR (MDRD) Non-Af 63, B UN/Creatinine Ratio 23.2 H, Glucose 109 H, Calcium 9.5 Physical Exam Const alert and oriented x3 Constitutional Narrative: episodic confusion General Appearance: cooperative and well developed HEENT normocephalic, head/scalp atraumatic and moist oral mucous membranes Eyes PERRL and EOMs intact bilaterally Neck supple and no JVD Lymph Lymphatic: no lymphadenopathy noted and no lymphedema noted Resp normal respiratory effort, normal air movement and clear to auscultation bilaterally Cardio regular rate, regular rhythm, S1 normal heart sound, S2 normal heart sound and no murmurs GI normal to inspection, nondistended, normoactive bowel sounds, soft to palpation, non-tender and non-distended Extremity normal capillary refill, no clubbing, cyanosis or edema and no calf tenderness General Extremity: no tenderness to palpation of joints or extremities Skin General Skin Exam: no breakdown Neuro CN's II-XII intact bilaterally, no focal motor deficits, no sensory deficits noted and deep tendon reflexes 2+ bilaterally Motor Exam: general weakness Psych Psych Narrative: episodic confusion Mood & Affect: flat affect Assessment & Plan Assessment/Plan (1) NSVT (nonsustained ventricular tachycardia): (2) Cellulitis of left lower limb: (3) History of seizures: PLAN: Plan #Nonsustained vtach * Was admitted with a complaint of mechanical fall and found to be in nonsustained V. tach. She also has a history of A-fib. * 2D echo done; read is still pending. * On metoprolol and Cardizem. * Cardiology on board. Per cardiology, no further workup at this time. To continue current home medications. * Cardiology reviewed telemetry and there was A-fib with aberrancy. 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 * She does have a history of seizures and is on lamotrigine and Depakote. Neurology saw her on 01/19/2024 and there is concern for pseudoseizures. * Seizure precautions. Neurology consulted and recommends EEG. * per discussion with neurologist, there was an active event captured per EEG. To get depakote level, per neurology. * continue current seizure meds * on lamictal and depakote * #Debility and weakness due to mechanical falls * Fell in the bathroom before admission. * CT of the brain showed no acute pathology and skeletal survey was also negative for any acute fracture. * PT OT on board. * Fall precautions. #History of heart failure with reduced ejection fraction * Not in exacerbation. Has known EF of 30% from 2D echo done in February 2023 which also showed moderate to severe global hypokinesis * On metoprolol, lisinopril and spironolactone as well as Lasix. * 2D echo done. Read is pending. * #CAD: On aspirin and Plavix. Not on statin. Unclear why as is not listed as an allergy. #Hypertension: On spironolactone and metoprolol as well as losartan. Also on Cardizem. Also on Lasix. IV hydralazine as needed. #DVT prophylaxis: * On Eliquis. * #Disposition: * will benefit from placement. * Charges/Coding Visit Charges Inpatient E&M: 52485 [facility] Hosp L3
[2024-02-05 14:45] VITALS: BP 149/73; PULSE 81; RESP 18; TEMP 36.3; O2SAT 96
[2024-02-05 15:21] LABS: Valproic Acid (Depakene) Level 45 ug/mL (50-100)
[2024-02-05] MEDS: dilTIAZem CD 120 MG Capsule PO (15:59)
[2024-02-05] MEDS: Losartan Potassium 25 MG Tablet PO (20:42)
[2024-02-05] MEDS: Donepezil HCl 10 MG Tablet PO (20:43)
[2024-02-05] MEDS: DULoxetine Hcl 30 MG Capsule PO (20:43)
[2024-02-05 20:45] VITALS: BP 139/63; PULSE 69; RESP 18; TEMP 36.4; O2SAT 95
[2024-02-06] VITALS (7 sets, daily range): BP systolic 105–125; BP diastolic 55–74; PULSE 65–94; RESP 18; TEMP 36.2–36.7; O2SAT 92–96; BMI 27.6
[2024-02-06] MEDS: Nystatin Powder 15gm Bottle 1 APPLIC TOPICAL ×3 (05:04→20:00)
[2024-02-06] MEDS: proCHLORPERazine 10 MG/2 ML Vial 5 MG IV ×2 (05:42→10:57)
[2024-02-06] MEDS: 0.9% Saline Lock 10 ML Syringe IV ×2 (05:42→10:57)
[2024-02-06 07:11] LABS: Absolute Neutrophil Count 6.6 X10^3/uL (2.0-7.7); Basophil# 0.08 X10^3/uL; Basophil% 0.9 % (0-1); Eosinophil# 0.15 X10^3/uL; Eosinophils% 1.6 % (0-5); Hematocrit 42.4 % (37-47); Hemoglobin 13.2 g/dL (12.0-15.0); Lymphocyte % 18.5 % (19-41); Mean Corp Hgb Conc 31.1 g/dL (32-36); Mean Corpuscular Hgb 33.3 pg (27.0-32.0); Mean Corpuscular Volume 107.1 fL (81-99); Mean Platelet Vol. 9.9 fl (6.2-12.0); Monocyte# 0.63 X10^3/uL; Monocyte% 6.9 % (0-10); NRBC Flagged by Analyzer 0 % (0-5); Neutrophil # 6.56 X10^3/uL (2.7-7.7); Neutrophil % 71.6 % (47-70); Platelet Count 285 K/mm3 (150-450); RBC Distribution Width CV 14.1 % (11.6-14.6); RBC Distribution Width SD 55.8 fl (35.1-43.9); Red Blood Count 3.96 M/mm3 (4.2-5.4); White Blood Count 9.2 K/mm3 (4.4-11.0)
[2024-02-06 07:53] LABS: Anion Gap 10 (5-15); BUN 21 mg/dL (7-18); BUN/Creat Ratio 24.8 RATIO (10-20); Calcium,Total 9.7 mg/dL (8.5-10.1); Chloride 105 mmol/L (98-107); Creatinine, Serum 0.85 mg/dL (0.55-1.02); EST Glomerular Filtration Rate 68 mL/min (>60); Est Glom Filt Rate - Afr Amer 82 mL/min (>60); Estimated Creatinine Clearance 52.71 ml/min; Glucose 120 mg/dL (74-106); Potassium 3.6 mmol/L (3.5-5.1); Sodium Level 139 mmol/L (136-145)
[2024-02-06] MEDS: APIXABAN 2.5 MG TABLET (WCH) PO ×2 (09:29→20:00)
[2024-02-06] MEDS: Divalproex Sodium 250 MG Tablet PO ×2 (09:29→20:01)
[2024-02-06] MEDS: Metoprolol(XL)Succ 25 MG Tablet PO (09:30)
[2024-02-06] MEDS: lamoTRIgine 100 MG Tablet 200 MG PO ×2 (09:30→20:10)
[2024-02-06] MEDS: Furosemide 40 MG Tablet PO (09:30)
[2024-02-06] MEDS: Aspirin E.C. 81 MG Tablet PO (09:31)
[2024-02-06] MEDS: Famotidine 20 MG Tablet PO (09:31)
[2024-02-06] MEDS: Potassium Chloride Oral Tablet 20 MEQ PO (09:31)
[2024-02-06] MEDS: Spironolactone 25 MG Tablet PO (09:31)
[2024-02-06] MEDS: Vibegron 75 MG TABLET PO (09:31)
[2024-02-06] MEDS: Menthol/Lanolin/Calamine/Znox 113 GM Tube 1 APPLIC TOPICAL ×4 (09:32→20:00)
--- NOTE | 2024-02-06 10:27 | CASEMGMT ---
Social Work SW met with pt to discuss discharge plan. Pt is understanding that her is unable to care for her at this time and is agreeable to SNF placement. Pt deferring facility choice to . Phone call to pt's spouse and discussed dc plan. Spouse is agreeable to SNF and SW reviewed SNF list and star ratings with spouse. Pt's spouse preferred providers are [facility]. [facility]. [facility] Referral to [facility] and no beds available. DC medical services assistant updated and referral to be sent to [facility]. A list of SNF providers including quality and resource use data and consistent with the patient?s preferred geographic region, medical needs, and insurance network were provided from the [facility] Guide and left in the pt room for spouse's review. Plan: [facility], pending acceptance and precert KEMAR Moore
--- NOTE | 2024-02-06 10:57 | PN.HOSP_ITS ---
Reason for Visit Reason for Visit: Diagnoses Other ventricular tachycardia (02/02/24) Unspecified atrial fibrillation (02/02/24) Cellulitis of left lower limb (02/02/24) Unspecified convulsions (02/02/24) Personal history of other specified conditions (02/02/24) Subjective Subjective Dozing off during encounter. Objective Data Objective Data Vital Signs: Vital Signs Temp Pulse Resp BP Pulse Ox O2 Del Method O2 Flow Rate 36.5 C L 81 18 125/64 H 95 Room Air 2 02/06/24 09:00 02/06/24 09:30 02/06/24 09:00 02/06/24 09:30 02/06/24 10:08 02/06/24 10:08 02/06/24 02:42 Oxygen Flow Rate (L/min) 2 Oxygen Delivery Method Room Air Weight: 80.1 kg Body Mass Index (BMI) 27.6 Intake & Output: Intake and Output for Last 24 Hours 02/04/24 02/05/24 02/06/24 23:59 23:59 23:59 Intake Total 920 / 920 240 / 240 Output Total 775 / 775 500 / 650 400 / 400 Balance 145 / 145 -260 / -410 -400 / -400 Lab / Micro Data 02/06/24 05:51 02/06/24 05:51 Labs: Laboratory Results - last 24 hr 02/05/24 14:20: Valproic Acid 45 L 02/06/24 05:51: WBC 9.2, RBC 3.96 L, Hgb 13.2, Hct 42.4, MCV 107.1 H, MCH 33.3 H , MCHC 31.1 L, RDW Std Deviation 55.8 H, RDW Coeff of Robert 14.1, Plt Count 285, MPV 9.9, Immature Gran % (Auto) 0.500, Neut % (Auto) 71.6 H, Lymph % (Auto) 18.5 L, [place] % (Auto) 6.9, Eos % (Auto) 1.6, Baso % (Auto) 0.9, Absolute Neuts (auto) 6.6, Absolute Lymphs (auto) 1.70, Nucleated RBC % 0, Sodium 139, Potassium 3.6, Chloride 105, Carbon Dioxide 24.0, Anion Gap 10, BUN 21 H, Creatinine 0.85, Estim Creat Clear Calc 52.71, Est GFR (MDRD) Af Amer 82, Est GFR (MDRD) Non-Af 68, BUN/Creatinine Ratio 24.8 H, Glucose 120 H, Calcium 9.7 Physical Exam Const Constitutional Narrative: Dozed off several times during the encounter but easily awakes. Resp normal respiratory effort, no retractions, no use of accessory muscles and clear to auscultation bilaterally Cardio regular rate, regular rhythm, S1 normal heart sound and S2 normal heart sound GI normal to inspection, nondistended, normoactive bowel sounds, soft to palpation, non-tender and non-distended Extremity normal to inspection and full ROM Neuro Sensorium / Orientation: awake and alert Assessment & Plan Assessment/Plan (1) Atrial fibrillation: QUALIFIERS: Atrial fibrillation type: unspecified Qualified Code(s): I48.91 - Unspecified atrial fibrillation PLAN: [place], by cardiology, to be afib w aberancy, not NSVT. No additional work up per cardiology at this time. continue diltiazem, metoprolol succinate, anticoagulation w apixaban. (2) Nonepileptic episode: PLAN: Seen by neurology (who will reevaluate), not felt to be epileptiform activity. Continue Lamictal and VPA. VPA level 45 EEG performed and there was body shaking while that was being performed but no epileptiform discharges were noted. PLAN: Plan Chronic conditions: * HTN: losartan, metoprolol succinate VTE prophylaxis: not indicated as already on apixaban. Disposition: plan for SNF pending accepting facility and insurance authorization. Charges/Coding Visit Charges Inpatient E&M: 43038 Subs Hosp L2
--- NOTE | 2024-02-06 11:04 | CASEMGMT ---
Addendum entered by Coleen Dotson 02/06/24 16:30: [facility] declined referral. Coleen Dotson DC Planning Asst. Original Note: Discharge Planning Referral sent via [facility] to [facility]. Coleen Dotson DC Planning Asst.
--- NOTE | 2024-02-06 14:34 | NEURO.PNOTE ---
Assessment and Plan: Neuro Assessment/Plan Assessment/Plan MAGDY MIRAMONTES is a 83 F with a past medical history of epilepsy and pseudoseizures, anxiety, new onset afib being evaluated by Teleneurology for increased seizure frequency. On evaluation of records and review of her history, her new seizures do appear non-epileptic in nature. On witnessing the event, also has many features of non-epileptic events. Exam is nonfocal. EEG captured events with no correlate. 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 Continue home Lamictal at 200mg BID and VPA at 250mg BID. Pt less somnolent today, VPA level not elevated. Would continue meds at current dosaging. Pt seems to have waxing waning somnolence, could be related to delirium. Neurology will sign off at this time. I personally attended this patient and spent a total time of 30 minutes evaluating this patient including clinical assessment, review of chart, medical history imaging, and determining appropriate treatment and workup. Subject: Neurology Subjective Pt is more arousable today, states she has belly pain and just vomitted. Objective Data Objective Data Vital Signs: Vital Signs Temp Pulse Resp BP Pulse Ox O2 Del Method O2 Flow Rate 97.7 F L 81 18 125/64 H 95 Room Air 2 02/06/24 09:00 02/06/24 09:30 02/06/24 09:00 02/06/24 09:30 02/06/24 10:08 02/06/24 14:23 02/06/24 02:42 Oxygen Flow Rate (L/min) 2 Oxygen Delivery Method Room Air Weight: 80.1 kg Body Mass Index (BMI) 27.6 Intake & Output: Intake and Output for Last 24 Hours 02/04/24 02/05/24 02/06/24 23:59 23:59 23:59 Intake Total 920 / 920 240 / 240 240 / 240 Output Total 775 / 775 500 / 650 550 / 550 Balance 145 / 145 -260 / -410 -310 / -310 Lab / Micro Data 02/06/24 05:51 02/06/24 05:51 Labs: Laboratory Results - last 24 hr 02/05/24 14:20: Valproic Acid 45 L 02/06/24 05:51: WBC 9.2, RBC 3.96 L, Hgb 13.2, Hct 42.4, MCV 107.1 H, MCH 33.3 H, MCHC 31.1 L, RDW Std Deviation 55.8 H, RDW Coeff of Robert 14.1, Plt Count 285, MPV 9.9, Immature Gran % (Auto) 0.500, Neut % (Auto) 71.6 H, Lymph % (Auto) 18.5 L, [place] % (Auto) 6.9, Eos % (Auto) 1.6, Baso % (Auto) 0.9, Absolute Neuts (auto) 6.6, Absolute Lymphs (auto) 1.70, Nucleated RBC % 0, Sodium 139, Potassium 3.6, Chloride 105, Carbon Dioxide 24.0, Anion Gap 10, BUN 21 H, Creatinine 0.85, Estim Creat Clear Calc 52.71, Est GFR (MDRD) Af Amer 82, Est GFR (MDRD) Non-Af 68, BUN/Creatinine Ratio 24.8 H, Glucose 120 H, Calcium 9.7 Radiography Diagnostic Testing: Radiology Impression Echocardiogram 02/03/24 03:21 Interpretation Summary The estimated ejection fraction is 60 %. No evidence for diastolic dysfunction. The right atrium is mildly enlarged. Moderate aortic stenosis. Ordering Physician: Carrie Grant Referring Physician: PETE BECERRA Performed By: Frances Alonso RCS Physical Exam Narrative -? NEURO: -? Mental Status: The patient somnolent again today, but arousable and stays awake easily. -? Language: speech is dysarthric.? Naming, repetition, fluency, and comprehension intact. -? Cranial Nerves: visual garcia full, no facial asymmetry -? Motor: Upper and lower extremities antigravity bilaterally. Intermittent consistent tremor of the RUE while patient doing exam elements and talking with me.
[2024-02-06] MEDS: dilTIAZem CD 120 MG Capsule PO (17:57)
[2024-02-06] MEDS: Donepezil HCl 10 MG Tablet PO (20:00)
[2024-02-06] MEDS: DULoxetine Hcl 30 MG Capsule PO (20:00)
[2024-02-06] MEDS: Losartan Potassium 25 MG Tablet PO (20:00)
[2024-02-06] MEDS: Acetaminophen 325 MG Tablet 650 MG PO (23:34)
[2024-02-07] VITALS (8 sets, daily range): BP systolic 114–128; BP diastolic 51–69; PULSE 62–87; RESP 12–18; TEMP 36–36.6; O2SAT 92–99; BMI 27.4
[2024-02-07] MEDS: proCHLORPERazine 10 MG/2 ML Vial 5 MG IV ×3 (05:01→22:30)
[2024-02-07] MEDS: Nystatin Powder 15gm Bottle 1 APPLIC TOPICAL ×3 (05:14→20:22)
[2024-02-07] MEDS: 0.9% Saline Lock 10 ML Syringe IV ×4 (05:14→17:28)
[2024-02-07 06:39] LABS: Absolute Lymphocyte Count 0.85 X10^3/uL (0.83-4.51); Absolute Neutrophil Count 6.5 X10^3/uL (2.0-7.7); Basophil# 0.06 X10^3/uL; Basophil% 0.8 % (0-1); Eosinophil# 0.08 X10^3/uL; Hematocrit 39.5 % (37-47); Hemoglobin 12.3 g/dL (12.0-15.0); Lymphocyte # 0.85 X10^3/ul (0.83-4.51); Lymphocyte % 10.6 % (19-41); Mean Corp Hgb Conc 31.1 g/dL (32-36); Mean Corpuscular Hgb 33.6 pg (27.0-32.0); Mean Corpuscular Volume 107.9 fL (81-99); Mean Platelet Vol. 9.8 fl (6.2-12.0); Monocyte# 0.43 X10^3/uL; Monocyte% 5.4 % (0-10); NRBC Flagged by Analyzer 0 % (0-5); Neutrophil # 6.53 X10^3/uL (2.7-7.7); Neutrophil % 81.6 % (47-70); Platelet Count 252 K/mm3 (150-450); RBC Distribution Width CV 14.2 % (11.6-14.6); RBC Distribution Width SD 56.7 fl (35.1-43.9); Red Blood Count 3.66 M/mm3 (4.2-5.4)
[2024-02-07 06:48] LABS: Anion Gap 6 (5-15); BUN 23 mg/dL (7-18); BUN/Creat Ratio 27.7 RATIO (10-20); Calcium,Total 9.5 mg/dL (8.5-10.1); Chloride 106 mmol/L (98-107); Creatinine, Serum 0.83 mg/dL (0.55-1.02); EST Glomerular Filtration Rate 69 mL/min (>60); Est Glom Filt Rate - Afr Amer 84 mL/min (>60); Estimated Creatinine Clearance 53.79 ml/min; Glucose 157 mg/dL (74-106); Sodium Level 139 mmol/L (136-145)
--- NOTE | 2024-02-07 08:30 | PCM.PN.HOSP ---
Reason for Visit Reason for Visit: Diagnoses Other ventricular tachycardia (02/02/24) Unspecified atrial fibrillation (02/02/24) Cellulitis of left lower limb (02/02/24) Unspecified convulsions (02/02/24) Personal history of other specified conditions (02/02/24) Subjective Subjective States that she is wanting to get up after being awoken. Objective Data Objective Data Vital Signs: Vital Signs Temp Pulse Resp BP Pulse Ox O2 Del Method O2 Flow Rate 36.1 C L 62 18 123/52 H 94 Room Air 2 02/07/24 05:57 02/07/24 05:57 02/07/24 05:57 02/07/24 05:57 02/07/24 07:29 02/07/24 07:29 02/06/24 02:42 Oxygen Flow Rate (L/min) 2 Oxygen Delivery Method Room Air Weight: 79.5 kg Body Mass Index (BMI) 27.4 Intake & Output: Intake and Output for Last 24 Hours 02/05/24 02/06/24 02/07/24 23:59 23:59 23:59 Intake Total 240 / 240 480 / 480 Output Total 500 / 650 750 / 1000 375 / 375 Balance -260 / -410 -270 / -520 -375 / -375 Lab / Micro Data 02/07/24 05:52 02/07/24 05:52 Labs: Laboratory Results - last 24 hr 02/07/24 05:52: WBC 8.0, RBC 3.66 L, Hgb 12.3, Hct 39.5, MCV 107.9 H, MCH 33.6 H, MCHC 31.1 L, RDW Std Deviation 56.7 H, RDW Coeff of Robert 14.2, Plt Count 252, MPV 9.8, Immature Gran % (Auto) 0.600, Neut % (Auto) 81.6 H, Lymph % (Auto) 10.6 L, [place] % (Auto) 5.4, Eos % (Auto) 1.0, Baso % (Auto) 0.8, Absolute Neuts (auto) 6.5, Absolute Lymphs (auto) 0.85, Nucleated RBC % 0, Sodium 139, Potassium 3.0 L, Chloride 106, Carbon Dioxide 27.0, Anion Gap 6, BUN 23 H, Creatinine 0.83, Estim Creat Clear Calc 53.79, Est GFR (MDRD) Af Amer 84, Est GFR (MDRD) Non-Af 69, BUN/Creatinine Ratio 27.7 H, Glucose 157 H, Calcium 9.5 Radiography Diagnostic Testing: Radiology Impression Echocardiogram 02/03/24 03:21 Interpretation Summary The estimated ejection fraction is 60 %. No evidence for diastolic dysfunction. The right atrium is mildly enlarged. Moderate aortic stenosis. Ordering Physician: Carrie Grant Referring Physician: PETE BECERRA Performed By: Frances Alonso RCS Physical Exam Const Constitutional Narrative: Confused but nontoxic. Reorientable. Resp normal respiratory effort, no retractions, no use of accessory muscles and clear to auscultation bilaterally Cardio regular rate, regular rhythm, S1 normal heart sound and S2 normal heart sound GI normal to inspection, nondistended, normoactive bowel sounds, soft to palpation, non-tender and non-distended Neuro Sensorium / Orientation: awake and alert Assessment & Plan Assessment/Plan (1) Atrial fibrillation: QUALIFIERS: Atrial fibrillation type: unspecified Qualified Code(s): I48.91 - Unspecified atrial fibrillation PLAN: [place], by cardiology, to be afib w aberancy, not NSVT. No additional work up per cardiology at this time. continue diltiazem, metoprolol succinate, anticoagulation w apixaban. (2) Nonepileptic episode: PLAN: Seen by neurology (who will reevaluate), not felt to be epileptiform activity. Continue Lamictal and VPA. VPA level 45 EEG performed and there was body shaking while that was being performed but no epileptiform discharges were noted. PLAN: Plan Chronic conditions: HTN: losartan, metoprolol succinate VTE prophylaxis: not indicated as already on apixaban. Disposition: plan for SNF pending accepting facility and insurance authorization. Charges/Coding Visit Charges Inpatient E&M: 44096 Subs Hosp L2
--- NOTE | 2024-02-07 09:09 | CASEMGMT ---
Discharge Planning Referral sent via [facility] to [facility]. Coleen Dotson DC Planning Asst.
--- NOTE | 2024-02-07 10:27 | CASEMGMT ---
Addendum entered by Lea Delgado 02/07/24 10:46: WILMAN called patient's Kit and let him know that [facility] not able to take patient. However, [facility] has accepted patient. WILMAN explained that once insurance approves patient she will go to [facility]. WILMAN told Kit that someone will notify him when she is approved and being discharged. Kit said he has a procedure tomorrow morning and to leave a voice mail for him if she is discharged. Plan: d/c to [facility] pending pre-cert. Lea AMATO Original Note: [facility] accepted patient and they will start pre-cert. WILMAN will notify patient's . Plan: [facility] pending pre-cert. Lea AMATO
[2024-02-07] MEDS: Furosemide 40 MG Tablet PO (10:51)
[2024-02-07] MEDS: Potassium Chloride Oral Tablet 20 MEQ PO (10:51)
[2024-02-07] MEDS: lamoTRIgine 100 MG Tablet 200 MG PO ×2 (10:51→20:20)
[2024-02-07] MEDS: Divalproex Sodium 250 MG Tablet PO ×2 (10:51→20:21)
[2024-02-07] MEDS: Spironolactone 25 MG Tablet PO (10:51)
[2024-02-07] MEDS: Aspirin E.C. 81 MG Tablet PO (10:51)
[2024-02-07] MEDS: Metoprolol(XL)Succ 25 MG Tablet PO (10:51)
[2024-02-07] MEDS: APIXABAN 2.5 MG TABLET (WCH) PO ×2 (10:51→20:21)
[2024-02-07] MEDS: Famotidine 20 MG Tablet PO (10:51)
[2024-02-07] MEDS: Vibegron 75 MG TABLET PO (10:51)
[2024-02-07] MEDS: Menthol/Lanolin/Calamine/Znox 113 GM Tube 1 APPLIC TOPICAL ×4 (10:52→20:22)
--- NOTE | 2024-02-07 13:39 | CHAPLAIN ---
Type of Pastoral Visit _x__ Initial Visit ___ Follow-up Visit ___ On-call Visit ___ General Patient Visit ___ Spiritual Assessment ___ Family Conference ___ Bereavement ___ Rapid Response ___ Code Blue ___ Other (describe below) Pastoral Care Referral From _x__ Patient ___ Family ___ Nurse ___ Physician ___ Electronic Health Records Specialist ___ Stencil Cutter Machine ___ Other (describe below) Sacrament/Intervention _x__ Active listening ___ Anointing ___ Zoroastrian ___ Bereavement ___ Communion ___ Myla exploration ___ ___ Life review _x__ Prayer ___ Reconciliation ___ Sacrament of Sick _x__ Supportive presence ___ Wedding ___ Other (describe below) Pastoral Comments patient has been seen previously over several past admissions; pt does not appear to remember this banquet cook; pt is friendly but not sure that pt understands who is visiting; pt voice is very hoarse and so the visit and questions are limited; pt presents self with a sympathetic demeanor but does not have a full grasp on her facts; pt welcomes a prayer
--- NOTE | 2024-02-07 14:08 | CASEMGMT ---
Discharge Planning [facility] has obtained auth to admit. Coleen Dotson DC Planning Asst.
--- NOTE | 2024-02-07 14:33 | TREXTCAR_ITS ---
Diet Diet Order/Speech Therapy: 02/03/24 03:21 Diet: Cardiac - Heart Healthy Food consistency:: Regular Liquid Consistency:: Regular/Thin Problem/Diagnosis (1) Atrial fibrillation: Status: Acute Code(s): I48.91 - Unspecified atrial fibrillation Plan: [place], by cardiology, to be afib w aberancy, not NSVT. No additional work up per cardiology at this time. continue diltiazem, metoprolol succinate, anticoagulation w apixaban. (2) Nonepileptic episode: Status: Acute Code(s): R56.9 - Unspecified convulsions Plan: Seen by neurology (who will reevaluate), not felt to be epileptiform activity. Continue Lamictal and VPA. VPA level 45 EEG performed and there was body shaking while that was being performed but no epileptiform discharges were noted. Plan Chronic conditions: * HTN: losartan, metoprolol succinate VTE prophylaxis: not indicated as already on apixaban. Disposition: plan for SNF pending accepting facility and insurance authorization. Allergies/Procedures Done in Hospital Allergies levetiracetam Allergy (Verified 02/02/24 14:02) Other unsure nickel Allergy (Verified 02/02/24 14:02) Rash sulfamethoxazole (From Bactrim) Allergy (Verified 02/02/24 14:02) Itching trimethoprim (From Bactrim) Allergy (Verified 02/02/24 14:02) Itching codeine Adverse Reaction (Verified 02/02/24 14:02) Nausea milk Adverse Reaction (Verified 02/02/24 14:02) Nausea/Vom/Diarrhea only glass of milk - milk by itself ok with milk in food. Type of Care/Length of Stay Estimated LOS: Convalescent Care Less Than 30 days Type of Care Needed: Skilled Rehab Potential: Fair Prognosis: Fair Additional Orders/Day of Discharge Day of Discharge: 02/07/24 Discharge Plan Admission Admit Date/Time: 02/02/24 23:17 Primary Reason for Your Visit: Pseudoseizures Attending Provider: Steve Tesfaye Primary Care Provider: Nahomy Bettencourt Consulting Providers: Carrie Grant; Sandra Miranda; Isai Smith; Mer Srinivasan; Caitlin Roca; Vane Carrasquillo; Ramses Smith; Marcel Patrick; Ling Ochoa; BROOKS CLARK; Poonam Lee; Collette Matta; Jean Carlos Calles; Isatu Spann Discharge Orders/Prescriptions Prescriptions: New acetaminophen 325 mg Tablet 650 mg PO Q4H PRN PRN (Reason: Fever, pain 1-10/10) Qty: 0 0RF Continued duloxetine 30 mg capsule,delayed release(DR/EC) 30 mg PO QHS cyanocobalamin (vitamin B-12) [Vitamin B-12] 1,000 mcg tablet 1,000 mcg PO DAILY furosemide 40 mg tablet 40 mg PO DAILY Rx Instructions: AM Eliquis 2.5 mg tablet 2.5 mg PO BID Qty: 180 3RF diltiazem HCl [Cartia XT] 120 mg capsule,extended release 24hr 120 mg PO DINNER divalproex 250 mg tablet,delayed release (DR/EC) 250 mg PO BID Qty: 60 5RF lamotrigine 200 mg tablet 200 mg PO BID Qty: 60 5RF donepezil 10 mg tablet 10 mg PO QHS Qty: 90 1RF aspirin [Adult Low Dose Aspirin] 81 mg tablet,delayed release (DR/EC) 81 mg PO DAILY potassium chloride 20 mEq tablet,ER particles/crystals 20 meq PO DAILY famotidine 20 mg tablet 20 mg PO BID Gemtesa 75 mg tablet 75 mg PO DAILY losartan 25 mg tablet 25 mg PO QHS Qty: 90 3RF metoprolol succinate 25 mg tablet extended release 24 hr 25 mg PO DAILY Qty: 90 3RF spironolactone 25 mg tablet 25 mg PO DAILY Qty: 90 3RF Discontinued oxycodone 5 mg Tablet 5 mg PO Q4H PRN PRN (Reason: Pain Score 6-10) 7 Days Qty: 28 0RF Referrals / Follow Up: Nahomy Bettencourt MD [Primary Care Provider] - Within 2 Weeks Disposition Disposition (needs filled in before D/C Order can be placed): [facility] Care Facility (1) Atrial fibrillation Qualifiers: Atrial fibrillation type: unspecified Qualified Code(s): I48.91 - Unspecified atrial fibrillation
--- NOTE | 2024-02-07 14:33 | CASEMGMT ---
Addendum entered by Lea Delgado 02/07/24 15:20: SW completed a 7000 in [facility] system. Plan: d/c to [facility] under skilled level of care on a convalescent stay. Physicians will transport patient via cot. Lea AMATO Addendum entered by Lea Delgado 02/07/24 14:51: Patient's called SW back and said he is concerned about her leaving as patient was vomiting and feels terrible. WILMAN spoke with RN and RN was going to notify physician. Await response. Lea AMATO Original Note: WILMAN notified physician that patient was approved for [facility]. Physician will discharge patient to [facility] today. SW called patient's and left him a voice mail letting him know patient will be going to [facility] today. Plan: d/c to [facility] under skilled level of care. Physicians will transport patient via cot. Lea AMATO
--- NOTE | 2024-02-07 14:41 | DS.PCM_ITS ---
Providers Date of Admission: 02/02/24 Primary Care Physician: Dr. Nahomy Bettencourt MD Consultations 02/03/24 04:33 Consult: Cardiology Routine Consulting Provider: Isai Smith Reason for Consult: Recurrent NSVT EMERGENT Consult: No Notified: Yes Date Notified: 02/03/24 Time Notified: 07:00 Method of Notification: Text 02/03/24 11:49 Neurology [Consult: Tele-Neurology] Routine Consulting Provider: [facility] Reason for Consult: seizures EMERGENT Consult: No Notified: Yes Date Notified: 02/03/24 Time Notified: 12:48 Method of Notification: Answering Service Nursing Unit Staff Notify [facility] of Tele-Neurology Consult: Yes Reason For Visit: NSVT, SUSPECTED PSEUDOSEIZURES Diagnosis Discharge Diagnosis (1) Atrial fibrillation: Status: Acute Code(s): I48.91 - Unspecified atrial fibrillation Qualifiers: Atrial fibrillation type: unspecified Qualified Code(s): I48.91 - Unspecified atrial fibrillation Plan: [place], by cardiology, to be afib w aberancy, not NSVT. No additional work up per cardiology at this time. continue diltiazem, metoprolol succinate, anticoagulation w apixaban. (2) Nonepileptic episode: Status: Acute Code(s): R56.9 - Unspecified convulsions Plan: Seen by neurology (who will reevaluate), not felt to be epileptiform activity. Continue Lamictal and VPA. VPA level 45 EEG performed and there was body shaking while that was being performed but no epileptiform discharges were noted. Plan Chronic conditions: * HTN: losartan, metoprolol succinate VTE prophylaxis: not indicated as already on apixaban. Disposition: plan for SNF pending accepting facility and insurance authorization. Medications at Discharge Home Medications duloxetine 30 mg capsule,delayed release 30 mg PO QHS NEUROPATHY 09/22/20 cyanocobalamin (vitamin B-12) 1,000 mcg tablet (Vitamin B-12) 1,000 mcg PO DAILY supplement 08/10/22 apixaban 2.5 mg tablet (Eliquis) 2.5 mg PO BID #180 tabs 01/04/23 furosemide 40 mg tablet 40 mg PO DAILY Diuretic 01/04/23 aspirin 81 mg tablet,delayed release (Adult Low Dose Aspirin) 81 mg PO DAILY blood thinner 04/08/23 diltiazem HCl 120 mg capsule,extended release 24 hr (Cartia XT) 120 mg PO DINNER heart 05/23/23 losartan 25 mg tablet 25 mg PO QHS #90 tabs 10/03/23 metoprolol succinate 25 mg tablet,extended release 24 hr 25 mg PO DAILY HEART #90 tabs 10/28/23 potassium chloride 20 mEq tablet,extended release(part/cryst) 20 meq PO DAILY supplement 01/12/24 divalproex 250 mg tablet,delayed release 250 mg PO BID #60 tabs 01/19/24 donepezil 10 mg tablet 10 mg PO QHS #90 tabs 01/19/24 lamotrigine 200 mg tablet 200 mg PO BID #60 tabs 01/19/24 spironolactone 25 mg tablet 25 mg PO DAILY #90 tabs 01/26/24 famotidine 20 mg tablet 20 mg PO BID stomach 02/04/24 vibegron 75 mg tablet (Gemtesa) 75 mg PO DAILY bladder muscle dysfunction 02/04/24 acetaminophen 325 mg tablet 650 mg (2 x 325 mg) PO Q4H PRN PRN Fever, pain 1- 10/10 #0 tabs 02/07/24 Hospital Course Operations None Procedures Electroencephalogram Summary of Care Provided Minutes Spent on Discharge: 32 Hospital Course: Patient was admitted for seizure activity. Patient did have an EEG and had his shaking activity but actually no epileptiform discharges were noted so this was not seizure but pseudoseizures. Patient was awaiting on placement and was finally excepted. Additionally, there was concern about nonsustained ventricular tachycardia. Cardiology saw and deemed it A-fib with a [place] C and no additional workup was necessary. Patient be discharged to care home facility in stable condition. Weight / BMI Weight Weight: 79.5 kg Body Mass Index (BMI) 27.4 ABG / Lab / Microbiology Data 02/07/24 05:52 02/07/24 05:52 Laboratory: Laboratory Results - last 24 hr 02/07/24 05:52: WBC 8.0, RBC 3.66 L, Hgb 12.3, Hct 39.5, MCV 107.9 H, MCH 33.6 H , MCHC 31.1 L, RDW Std Deviation 56.7 H, RDW Coeff of Robert 14.2, Plt Count 252, MPV 9.8, Immature Gran % (Auto) 0.600, Neut % (Auto) 81.6 H, Lymph % (Auto) 10.6 L, [place] % (Auto) 5.4, Eos % (Auto) 1.0, Baso % (Auto) 0.8, Absolute Neuts (auto) 6.5, Absolute Lymphs (auto) 0.85, Nucleated RBC % 0, Sodium 139, Potassium 3.0 L , Chloride 106, Carbon Dioxide 27.0, Anion Gap 6, BUN 23 H, Creatinine 0.83, Estim Creat Clear Calc 53.79, Est GFR (MDRD) Af Amer 84, Est GFR (MDRD) Non-Af 69, BUN/Creatinine Ratio 27.7 H, Glucose 157 H, Calcium 9.5 Meaningful Use Info Meaningful Use Meaningful Use Diagnoses (Choose all that apply): None applicable Ischemic Stroke Statin Dosing Therapy Reference: STATIN DOSE THERAPY REFERENCE: * Patients > 75 years receive moderate or high dose statin therapy. * Patients 75 years or YOUNGER should receive HIGH intensity statin dose unless contraindicated. You will be required to document reason for non-treatment if statin daily dose does not meet guidelines. HIGH DOSE STATIN THERAPY DAILY Atorvastatin > than or = to 40 mg Rosuvastatin > than or = to 20 mg Amlodipine + Atorvastatin > than or = to 2.5/40 mg Ezetimibe + Simvastatin 10/80 mg Simvastatin 80mg Discharge Plan Admission Admit Date/Time: 02/02/24 23:17 Primary Reason for Your Visit: Pseudoseizures Attending Provider: Steve Tesfaye Primary Care Provider: Nahomy Bettencourt Consulting Providers: Carrie Grant; Sandra Miranda; Isai Smith; Mer Srinivasan; Caitlin Roca; Vane Carrasquillo; Ramses Smith; Marcel Patrick; Ling Ochoa; BROOKS CLARK; Poonam Lee; Collette Matta; Jean Carlos Calles; Isatu Spann Discharge Orders/Prescriptions Prescriptions: New acetaminophen 325 mg Tablet 650 mg PO Q4H PRN PRN (Reason: Fever, pain 1-10/10) Qty: 0 0RF Continued duloxetine 30 mg capsule,delayed release(DR/EC) 30 mg PO QHS cyanocobalamin (vitamin B-12) [Vitamin B-12] 1,000 mcg tablet 1,000 mcg PO DAILY furosemide 40 mg tablet 40 mg PO DAILY Rx Instructions: AM Eliquis 2.5 mg tablet 2.5 mg PO BID Qty: 180 3RF diltiazem HCl [Cartia XT] 120 mg capsule,extended release 24hr 120 mg PO DINNER divalproex 250 mg tablet,delayed release (DR/EC) 250 mg PO BID Qty: 60 5RF lamotrigine 200 mg tablet 200 mg PO BID Qty: 60 5RF donepezil 10 mg tablet 10 mg PO QHS Qty: 90 1RF aspirin [Adult Low Dose Aspirin] 81 mg tablet,delayed release (DR/EC) 81 mg PO DAILY potassium chloride 20 mEq tablet,ER particles/crystals 20 meq PO DAILY famotidine 20 mg tablet 20 mg PO BID Gemtesa 75 mg tablet 75 mg PO DAILY losartan 25 mg tablet 25 mg PO QHS Qty: 90 3RF metoprolol succinate 25 mg tablet extended release 24 hr 25 mg PO DAILY Qty: 90 3RF spironolactone 25 mg tablet 25 mg PO DAILY Qty: 90 3RF Discontinued oxycodone 5 mg Tablet 5 mg PO Q4H PRN PRN (Reason: Pain Score 6-10) 7 Days Qty: 28 0RF Referrals / Follow Up: Nahomy Bettencourt MD [Primary Care Provider] - Within 2 Weeks Disposition Disposition (needs filled in before D/C Order can be placed): Long Term Facility Charges/Coding Visit Charges Inpatient E&M: 64929 Disch Hosp >30min
--- NOTE | 2024-02-07 15:26 | CASEMGMT ---
Discharge Planning Discharge orders, signed med list, and transport time sent to [facility] [place]. Physicians will transport patient by cot at 4:30p. SW updated and will notify nursing, pt, and her . Coleen Dotson DC Planning Asst.
--- NOTE | 2024-02-07 15:39 | CASEMGMT ---
Per physician patient's discharge has been cancelled. WILMAN called patient's and let him know. WILMAN also notified RN and acid etch operator. Lea Delgado MEDICAL PARASITOLOGIST [place]
--- NOTE | 2024-02-07 16:10 | RAD_ITS ---
STUDY: X-RAY - ABDOMEN/PELVIS REASON FOR EXAM: Female, 83 years old. abdominal pain TECHNIQUE: Frontal views COMPARISON: None. FINDINGS: Normal visualized lung bases. There is an unremarkable bowel gas pattern. There is no demonstrated free abdominal air. The visualized liver, spleen and kidneys are grossly normal in size and morphology. Normal soft tissue structures. Degenerative vertebral changes. There is a left total hip replacement. RAD/Abdomen Single View IMPRESSION: No sign of bowel obstruction. Electronically Signed: Hunter Greene DO at 18:35 EDT ,
[2024-02-07] MEDS: dilTIAZem CD 120 MG Capsule PO (16:43)
[2024-02-07 17:08] LABS: Lamotrigine (Lamictal) Level 16.6 ug/mL (2.0-20.0)
[2024-02-07] MEDS: 0.9% Normal Saline (1000mL) 1,000 ML 150 ML IV (17:26)
[2024-02-07] MEDS: DULoxetine Hcl 30 MG Capsule PO (20:21)
[2024-02-07] MEDS: Losartan Potassium 25 MG Tablet PO (20:21)
[2024-02-07] MEDS: Donepezil HCl 10 MG Tablet PO (20:21)
[2024-02-08 02:20] VITALS: BP 112/74; PULSE 80; RESP 18; TEMP 36.4; O2SAT 93
[2024-02-08] MEDS: Nystatin Powder 15gm Bottle 1 APPLIC TOPICAL ×3 (05:00→22:02)
[2024-02-08 06:00] VITALS: BMI 27.8
[2024-02-08 07:07] LABS: Absolute Lymphocyte Count 1.25 X10^3/uL (0.83-4.51); Absolute Neutrophil Count 5.4 X10^3/uL (2.0-7.7); Basophil# 0.05 X10^3/uL; Basophil% 0.7 % (0-1); Eosinophil# 0.06 X10^3/uL; Eosinophils% 0.8 % (0-5); Hematocrit 39.8 % (37-47); Hemoglobin 12.3 g/dL (12.0-15.0); Lymphocyte # 1.25 X10^3/ul (0.83-4.51); Mean Corp Hgb Conc 30.9 g/dL (32-36); Mean Corpuscular Hgb 33.9 pg (27.0-32.0); Mean Corpuscular Volume 109.6 fL (81-99); Mean Platelet Vol. 9.8 fl (6.2-12.0); Monocyte% 8.1 % (0-10); NRBC Flagged by Analyzer 0 % (0-5); Neutrophil # 5.37 X10^3/uL (2.7-7.7); Neutrophil % 72.9 % (47-70); Platelet Count 268 K/mm3 (150-450); RBC Distribution Width CV 14.2 % (11.6-14.6); RBC Distribution Width SD 57.5 fl (35.1-43.9); Red Blood Count 3.63 M/mm3 (4.2-5.4); White Blood Count 7.4 K/mm3 (4.4-11.0)
[2024-02-08 07:19] LABS: Anion Gap 3 (5-15); BUN 21 mg/dL (7-18); BUN/Creat Ratio 29.3 RATIO (10-20); Calcium,Total 9.3 mg/dL (8.5-10.1); Chloride 107 mmol/L (98-107); Creatinine, Serum 0.72 mg/dL (0.55-1.02); EST Glomerular Filtration Rate 82 mL/min (>60); Est Glom Filt Rate - Afr Amer 100 mL/min (>60); Glucose 98 mg/dL (74-106); Potassium 3.5 mmol/L (3.5-5.1); Sodium Level 140 mmol/L (136-145)
[2024-02-08 08:21] VITALS: O2SAT 95
--- NOTE | 2024-02-08 08:58 | PN.HOSP_ITS ---
Reason for Visit Reason for Visit: Diagnoses Other ventricular tachycardia (02/02/24) Unspecified atrial fibrillation (02/02/24) Cellulitis of left lower limb (02/02/24) Unspecified convulsions (02/02/24) Personal history of other specified conditions (02/02/24) Subjective Subjective Wanting name band taken off her wrist, saying it is bothering her. Objective Data Objective Data Vital Signs: Vital Signs Temp Pulse Resp BP Pulse Ox O2 Del Method O2 Flow Rate 36.4 C L 80 18 112/74 93 Room Air 2 02/08/24 02:20 02/08/24 02:20 02/08/24 02:20 02/08/24 02:20 02/08/24 02:20 02/08/24 02:20 02/06/24 02:42 Oxygen Flow Rate (L/min) 2 Oxygen Delivery Method Room Air Weight: 80.7 kg Body Mass Index (BMI) 27.8 Intake & Output: Intake and Output for Last 24 Hours 02/06/24 02/07/24 02/08/24 23:59 23:59 23:59 Intake Total 480 / 480 1072.5 / 1072.5 Output Total 750 / 1000 1175 / 1175 150 / 150 Balance -270 / -520 -102.5 / -102.5 -150 / -150 Lab / Micro Data 02/08/24 05:17 02/08/24 05:17 Labs: Laboratory Results - last 24 hr 02/02/24 23:48: Lamotrigine 16.6 02/08/24 05:17: WBC 7.4, RBC 3.63 L, Hgb 12.3, Hct 39.8, MCV 109.6 H, MCH 33.9 H , MCHC 30.9 L, RDW Std Deviation 57.5 H, RDW Coeff of Robert 14.2, Plt Count 268, MPV 9.8, Immature Gran % (Auto) 0.500, Neut % (Auto) 72.9 H, Lymph % (Auto) 17.0 L, [place] % (Auto) 8.1, Eos % (Auto) 0.8, Baso % (Auto) 0.7, Absolute Neuts (auto) 5.4, Absolute Lymphs (auto) 1.25, Nucleated RBC % 0, Sodium 140, Potassium 3.5, Chloride 107, Carbon Dioxide 30.0, Anion Gap 3 L, BUN 21 H, Creatinine 0.72, Estim Creat Clear Calc 56.20, Est GFR (MDRD) Af Amer 100, Est GFR (MDRD) Non-Af 82, BUN/Creatinine Ratio 29.3 H, Glucose 98, Calcium 9.3 Radiography Diagnostic Testing: Radiology Impression KUB X-Ray 02/07/24 16:10 IMPRESSION: No sign of bowel obstruction. Electronically Signed: Hunter Greene DO at 18:35 EDT , Physical Exam Const Constitutional Narrative: confused. more alert. non-toxic. Resp normal respiratory effort, no retractions, no use of accessory muscles and clear to auscultation bilaterally Neuro Sensorium / Orientation: awake and alert Assessment & Plan Assessment/Plan (1) Atrial fibrillation: QUALIFIERS: Atrial fibrillation type: unspecified Qualified Code(s): I48.91 - Unspecified atrial fibrillation PLAN: [place], by cardiology, to be afib w aberancy, not NSVT. No additional work up per cardiology at this time. continue diltiazem, metoprolol succinate, anticoagulation w apixaban. (2) Nonepileptic episode: PLAN: Seen by neurology (who will reevaluate), not felt to be epileptiform activity. Continue Lamictal and VPA. VPA level 45 EEG performed and there was body shaking while that was being performed but no epileptiform discharges were noted. (3) Vomiting: PLAN: Abdominal x-ray was negative. Speech therapy to see PLAN: Plan Chronic conditions: * HTN: losartan, metoprolol succinate VTE prophylaxis: not indicated as already on apixaban. Disposition: TBD pending patient's clinical response and speech therapy evaluation. Charges/Coding Visit Charges Inpatient E&M: 65667 Subs Hosp L2
[2024-02-08] MEDS: lamoTRIgine 100 MG Tablet 200 MG PO ×2 (09:28→22:02)
[2024-02-08] MEDS: Menthol/Lanolin/Calamine/Znox 113 GM Tube 1 APPLIC TOPICAL ×4 (09:31→22:01)
[2024-02-08] MEDS: Divalproex Sodium 250 MG Tablet PO ×2 (09:32→22:02)
[2024-02-08 16:41] VITALS: BP 107/50; PULSE 72; RESP 16; TEMP 36.1; O2SAT 93
[2024-02-08] MEDS: dilTIAZem CD 120 MG Capsule PO (16:46)
[2024-02-08 21:51] VITALS: BP 126/59; PULSE 74; RESP 16; TEMP 36.6; O2SAT 97
[2024-02-08] MEDS: Losartan Potassium 25 MG Tablet PO (22:01)
[2024-02-08] MEDS: DULoxetine Hcl 30 MG Capsule PO (22:01)
[2024-02-08] MEDS: Donepezil HCl 10 MG Tablet PO (22:01)
[2024-02-08] MEDS: APIXABAN 2.5 MG TABLET (WCH) PO (22:02)
[2024-02-09] MEDS: proCHLORPERazine 10 MG/2 ML Vial 5 MG IV ×2 (02:42→22:25)
[2024-02-09 03:25] VITALS: BP 107/72; PULSE 73; RESP 16; TEMP 36.6; O2SAT 96
[2024-02-09 05:29] VITALS: BMI 27.2
[2024-02-09 06:18] LABS: Absolute Lymphocyte Count 0.97 X10^3/uL (0.83-4.51); Absolute Neutrophil Count 6.9 X10^3/uL (2.0-7.7); Basophil# 0.05 X10^3/uL; Basophil% 0.6 % (0-1); Eosinophil# 0.09 X10^3/uL; Hematocrit 39.7 % (37-47); Hemoglobin 12.6 g/dL (12.0-15.0); Lymphocyte # 0.97 X10^3/ul (0.83-4.51); Lymphocyte % 11.3 % (19-41); Mean Corp Hgb Conc 31.7 g/dL (32-36); Mean Corpuscular Hgb 33.9 pg (27.0-32.0); Mean Corpuscular Volume 106.7 fL (81-99); Mean Platelet Vol. 9.7 fl (6.2-12.0); Monocyte# 0.61 X10^3/uL; Monocyte% 7.1 % (0-10); NRBC Flagged by Analyzer 0 % (0-5); Neutrophil # 6.85 X10^3/uL (2.7-7.7); Neutrophil % 79.4 % (47-70); Platelet Count 243 K/mm3 (150-450); RBC Distribution Width CV 14.1 % (11.6-14.6); RBC Distribution Width SD 55.2 fl (35.1-43.9); Red Blood Count 3.72 M/mm3 (4.2-5.4); White Blood Count 8.6 K/mm3 (4.4-11.0)
[2024-02-09] MEDS: Nystatin Powder 15gm Bottle 1 APPLIC TOPICAL ×3 (06:20→20:32)
[2024-02-09 06:50] LABS: Anion Gap 6 (5-15); BUN 18 mg/dL (7-18); BUN/Creat Ratio 25.2 RATIO (10-20); Calcium,Total 9.4 mg/dL (8.5-10.1); Chloride 107 mmol/L (98-107); Creatinine, Serum 0.71 mg/dL (0.55-1.02); EST Glomerular Filtration Rate 83 mL/min (>60); Est Glom Filt Rate - Afr Amer 100 mL/min (>60); Estimated Creatinine Clearance 55.65 ml/min; Glucose 107 mg/dL (74-106); Potassium 3.8 mmol/L (3.5-5.1); Sodium Level 139 mmol/L (136-145)
--- NOTE | 2024-02-09 08:47 | PCM.PN.HOSP ---
Reason for Visit Reason for Visit: Diagnoses Other ventricular tachycardia (02/02/24) Unspecified atrial fibrillation (02/02/24) Cellulitis of left lower limb (02/02/24) Vomiting, unspecified (02/02/24) Unspecified convulsions (02/02/24) Personal history of other specified conditions (02/02/24) Subjective Subjective Still with vomiting. Objective Data Objective Data Vital Signs: Vital Signs Temp Pulse Resp BP Pulse Ox O2 Del Method O2 Flow Rate 36.6 C 73 16 107/72 96 Room Air 2 02/09/24 03:02/09/24 03:02/09/24 03:02/09/24 03:02/09/24 03:02/09/24 03:02/06/24 02:42 Oxygen Flow Rate (L/min) 2 Oxygen Delivery Method Room Air Weight: 79 kg Body Mass Index (BMI) 27.2 Intake & Output: Intake and Output for Last 24 Hours 02/07/24 02/08/24 02/09/24 23:59 23:59 23:59 Intake Total 1072.5 / 1072.5 250 / 250 Output Total 1175 / 1175 300 / 300 Balance -102.5 / -102.5 -300 / -50 250 / 250 Lab / Micro Data 02/09/24 05:44 02/09/24 05:44 Labs: Laboratory Results - last 24 hr 02/09/24 05:44: WBC 8.6, RBC 3.72 L, Hgb 12.6, Hct 39.7, MCV 106.7 H, MCH 33.9 H, MCHC 31.7 L, RDW Std Deviation 55.2 H, RDW Coeff of Robert 14.1, Plt Count 243, MPV 9.7, Immature Gran % (Auto) 0.600, Neut % (Auto) 79.4 H, Lymph % (Auto) 11.3 L, [place] % (Auto) 7.1, Eos % (Auto) 1.0, Baso % (Auto) 0.6, Absolute Neuts (auto) 6.9, Absolute Lymphs (auto) 0.97, Nucleated RBC % 0, Sodium 139, Potassium 3.8, Chloride 107, Carbon Dioxide 26.0, Anion Gap 6, BUN 18, Creatinine 0.71, Estim Creat Clear Calc 55.65, Est GFR (MDRD) Af Amer 100, Est GFR (MDRD) Non-Af 83, BUN/Creatinine Ratio 25.2 H, Glucose 107 H, Calcium 9.4 Physical Exam Const Constitutional Narrative: somnolent. afebrile. non-toxic. HEENT head/scalp atraumatic and moist oral mucous membranes Resp normal respiratory effort, no retractions, no use of accessory muscles and clear to auscultation bilaterally Cardio regular rate, regular rhythm, S1 normal heart sound and S2 normal heart sound GI normal to inspection, nondistended, normoactive bowel sounds, soft to palpation, non-tender and non-distended Neuro Sensorium / Orientation: awake and alert Assessment & Plan Assessment/Plan (1) Atrial fibrillation: QUALIFIERS: Atrial fibrillation type: unspecified Qualified Code(s): I48.91 - Unspecified atrial fibrillation PLAN: [place], by cardiology, to be afib w aberancy, not NSVT. No additional work up per cardiology at this time. continue diltiazem, metoprolol succinate, anticoagulation w apixaban. (2) Nonepileptic episode: PLAN: Seen by neurology (who will reevaluate), not felt to be epileptiform activity. Continue Lamictal. Will discontinue the divalproex as there is concern that may be contribute to the ongoing nausea and vomiting VPA level 45 EEG performed and there was body shaking while that was being performed but no epileptiform discharges were noted. (3) Vomiting: PLAN: Abdominal x-ray was negative. Speech therapy saw and recommended easy to chew/thin liquids with distant supervision. Still having issues with nausea and vomiting. On review of her medications, through neurology's notes earlier in January with Dr. Wing, patient was started on divalproex. Is unclear if there is any correlation with that but that can be associated with nausea and vomiting. 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 Check gastric emptying study PLAN: Plan Chronic conditions: HTN: losartan, metoprolol succinate VTE prophylaxis: not indicated as already on apixaban. Disposition: TBD pending patient's clinical response and speech therapy evaluation. Discussed with patient's . Expressed the concern that some of her N/V may be due divalproex. Charges/Coding Visit Charges Inpatient E&M: 45592 Subs Hosp L2
[2024-02-09 09:00] VITALS: BP 113/60; PULSE 91; RESP 15; TEMP 36.4; O2SAT 98
[2024-02-09] MEDS: Spironolactone 25 MG Tablet PO (09:07)
[2024-02-09] MEDS: Divalproex Sodium 250 MG Tablet PO (09:08)
[2024-02-09] MEDS: Menthol/Lanolin/Calamine/Znox 113 GM Tube 1 APPLIC TOPICAL ×3 (09:08→20:31)
[2024-02-09] MEDS: APIXABAN 2.5 MG TABLET (WCH) PO ×2 (09:09→20:27)
[2024-02-09] MEDS: Vibegron 75 MG TABLET PO (09:09)
[2024-02-09] MEDS: Aspirin E.C. 81 MG Tablet PO (09:09)
[2024-02-09] MEDS: Potassium Chloride Oral Tablet 20 MEQ PO (09:10)
--- NOTE | 2024-02-09 09:10 | NM_ITS ---
CLINICAL: 83-year-old female with history of chronic nausea and abdominal pain. SEMI-SOLID PHASE 99m Tc SULFUR COLLOID GASTRIC EMPTYING STUDY COMPARISON: None available FINDINGS: The patient was administered 1.2 mCi of 99m Tc sulfur colloid mixed with oatmeal and consumed per os. Image acquisitions in the anterior-posterior projections were obtained for 60 minutes. There is prompt visualization of the stomach. There is no gastroesophageal reflux identified. The T ? linear fit was calculated to be 33.16 minutes, (Normal: 12-56 minutes). NM/Gastric Emptying Study IMPRESSION: 1. NORMAL 99m Tc sulfur colloid semi-solid phase (oatmeal) gastric emptying imaging examination. A. There is normal and preserved semi-solid phase gastric emptying compared to normal controls. (Isa et al, J Nucl Med Tech 38: 186, 2010). Electronically Signed: Lamont Stovall DO at 14:16 EDT ,
[2024-02-09 09:11] VITALS: BP 113/91; PULSE 91
[2024-02-09] MEDS: Famotidine 20 MG Tablet PO (09:11)
[2024-02-09] MEDS: lamoTRIgine 100 MG Tablet 200 MG PO ×2 (09:11→20:36)
[2024-02-09] MEDS: Metoprolol(XL)Succ 25 MG Tablet PO (09:11)
[2024-02-09] MEDS: Furosemide 40 MG Tablet PO (09:11)
[2024-02-09 16:14] VITALS: BP 110/64; PULSE 62; RESP 16; TEMP 36.4; O2SAT 95
[2024-02-09] MEDS: dilTIAZem CD 120 MG Capsule PO (16:36)
[2024-02-09] MEDS: Losartan Potassium 25 MG Tablet PO (20:27)
[2024-02-09] MEDS: DULoxetine Hcl 30 MG Capsule PO (20:27)
[2024-02-09] MEDS: MELATONIN 3 MG TABLET PO (20:31)
[2024-02-09] MEDS: 0.9% Saline Lock 10 ML Syringe IV (20:31)
[2024-02-09] MEDS: Donepezil HCl 10 MG Tablet PO (20:32)
[2024-02-09 20:45] VITALS: BP 106/67; PULSE 82; RESP 16; TEMP 36.6; O2SAT 95
[2024-02-10 03:10] VITALS: BP 130/68; PULSE 80; RESP 16; TEMP 36.4; O2SAT 94
[2024-02-10 03:22] VITALS: BMI 24.0
[2024-02-10 05:03] LABS: Absolute Lymphocyte Count 1.22 X10^3/uL (0.83-4.51); Absolute Neutrophil Count 6.4 X10^3/uL (2.0-7.7); Basophil# 0.05 X10^3/uL; Basophil% 0.6 % (0-1); Eosinophil# 0.05 X10^3/uL; Eosinophils% 0.6 % (0-5); Hematocrit 38.3 % (37-47); Hemoglobin 12.2 g/dL (12.0-15.0); Lymphocyte # 1.22 X10^3/ul (0.83-4.51); Lymphocyte % 14.6 % (19-41); Mean Corp Hgb Conc 31.9 g/dL (32-36); Mean Corpuscular Hgb 34.1 pg (27.0-32.0); Mean Platelet Vol. 9.7 fl (6.2-12.0); Monocyte# 0.57 X10^3/uL; Monocyte% 6.8 % (0-10); NRBC Flagged by Analyzer 0 % (0-5); Neutrophil # 6.42 X10^3/uL (2.7-7.7); Neutrophil % 76.8 % (47-70); Platelet Count 278 K/mm3 (150-450); RBC Distribution Width CV 13.9 % (11.6-14.6); RBC Distribution Width SD 54.9 fl (35.1-43.9); Red Blood Count 3.58 M/mm3 (4.2-5.4); White Blood Count 8.4 K/mm3 (4.4-11.0)
[2024-02-10 05:23] LABS: Anion Gap 5 (5-15); BUN 20 mg/dL (7-18); BUN/Creat Ratio 27.6 RATIO (10-20); Calcium,Total 9.4 mg/dL (8.5-10.1); Chloride 106 mmol/L (98-107); Creatinine, Serum 0.72 mg/dL (0.55-1.02); EST Glomerular Filtration Rate 81 mL/min (>60); Est Glom Filt Rate - Afr Amer 98 mL/min (>60); Glucose 109 mg/dL (74-106); Potassium 3.4 mmol/L (3.5-5.1); Sodium Level 142 mmol/L (136-145)
[2024-02-10] MEDS: Nystatin Powder 15gm Bottle 1 APPLIC TOPICAL ×3 (06:22→22:17)
--- NOTE | 2024-02-10 08:12 | PN.HOSP_ITS ---
Reason for Visit Reason for Visit: Diagnoses Other ventricular tachycardia (02/02/24) Unspecified atrial fibrillation (02/02/24) Cellulitis of left lower limb (02/02/24) Vomiting, unspecified (02/02/24) Unspecified convulsions (02/02/24) Personal history of other specified conditions (02/02/24) Subjective Subjective Vomited after GES when moved after being moved this therapy. Was bilous green in appearance. Objective Data Objective Data Vital Signs: Vital Signs Temp Pulse Resp BP Pulse Ox O2 Del Method O2 Flow Rate 36.4 C L 80 16 130/68 H 94 Room Air 2 02/10/24 03:10 02/10/24 03:10 02/10/24 03:10 02/10/24 03:10 02/10/24 03:10 02/10/24 03:56 02/06/24 02:42 Oxygen Flow Rate (L/min) 2 Oxygen Delivery Method Room Air Weight: 69.8 kg Body Mass Index (BMI) 24.0 Intake & Output: Intake and Output for Last 24 Hours 02/08/24 02/09/24 02/10/24 23:59 23:59 23:59 Intake Total 870 / 870 0 / 0 Output Total 300 / 300 0 / 0 Balance -300 / -50 870 / 870 0 / 0 Lab / Micro Data 02/10/24 04:21 02/10/24 04:21 Labs: Laboratory Results - last 24 hr 02/10/24 04:21: WBC 8.4, RBC 3.58 L, Hgb 12.2, Hct 38.3, MCV 107.0 H, MCH 34.1 H , MCHC 31.9 L, RDW Std Deviation 54.9 H, RDW Coeff of Robert 13.9, Plt Count 278, MPV 9.7, Immature Gran % (Auto) 0.600, Neut % (Auto) 76.8 H, Lymph % (Auto) 14.6 L, [place] % (Auto) 6.8, Eos % (Auto) 0.6, Baso % (Auto) 0.6, Absolute Neuts (auto) 6.4, Absolute Lymphs (auto) 1.22, Nucleated RBC % 0, Sodium 142, Potassium 3.4 L , Chloride 106, Carbon Dioxide 30.0, Anion Gap 5, BUN 20 H, Creatinine 0.72, Estim Creat Clear Calc 50.00, Est GFR (MDRD) Af Amer 98, Est GFR (MDRD) Non-Af 81, BUN/Creatinine Ratio 27.6 H, Glucose 109 H, Calcium 9.4 Physical Exam Const no apparent distress Constitutional Narrative: awake. confused. GI GI Narrative: slight distention. hypoactive BS. Assessment & Plan Assessment/Plan (1) Atrial fibrillation: QUALIFIERS: Atrial fibrillation type: unspecified Qualified Code(s): I48.91 - Unspecified atrial fibrillation PLAN: [place], by cardiology, to be afib w aberancy, not NSVT. No additional work up per cardiology at this time. continue diltiazem, metoprolol succinate, anticoagulation w apixaban. (2) Nonepileptic episode: PLAN: Seen by neurology (who will reevaluate), not felt to be epileptiform activity. Continue Lamictal. Will discontinue the divalproex as there is concern that may be contribute to the ongoing nausea and vomiting VPA level 45 EEG performed and there was body shaking while that was being performed but no epileptiform discharges were noted. (3) Vomiting: PLAN: Abdominal x-ray was negative. GES negative. Speech therapy saw and recommended easy to chew/thin liquids with distant supervision. Still having issues with nausea and vomiting. On review of her medications, through neurology's notes earlier in January with Dr. Wing, patient was started on divalproex. Is unclear if there is any correlation with that but that can be associated with nausea and vomiting. 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 Check CT A/P. Attempt oral contrast if she can tolerate it. When patient eats, will have her sit upright for 30-60 minutes afterwards. PLAN: Plan Chronic conditions: * HTN: losartan, metoprolol succinate VTE prophylaxis: not indicated as already on apixaban. Disposition: TBD pending patient's clinical response and speech therapy evaluation. Charges/Coding Visit Charges Inpatient E&M: 30924 Subs Hosp L2
[2024-02-10 08:46] VITALS: BP 100/62; PULSE 69; RESP 18; TEMP 36.6; O2SAT 94
[2024-02-10 11:30] VITALS: BP 132/67; PULSE 82; RESP 16; TEMP 36.9; O2SAT 94
[2024-02-10] MEDS: lamoTRIgine 100 MG Tablet 200 MG PO ×2 (11:31→22:17)
[2024-02-10 11:32] VITALS: BP 132/67; PULSE 82
[2024-02-10] MEDS: Vibegron 75 MG TABLET PO (11:32)
[2024-02-10] MEDS: Spironolactone 25 MG Tablet PO (11:32)
[2024-02-10] MEDS: Potassium Chloride Oral Tablet 20 MEQ PO (11:32)
[2024-02-10] MEDS: Furosemide 40 MG Tablet PO (11:32)
[2024-02-10] MEDS: Aspirin E.C. 81 MG Tablet PO (11:32)
[2024-02-10] MEDS: Metoprolol(XL)Succ 25 MG Tablet PO (11:32)
[2024-02-10] MEDS: Menthol/Lanolin/Calamine/Znox 113 GM Tube 1 APPLIC TOPICAL ×4 (11:33→22:16)
[2024-02-10] MEDS: APIXABAN 2.5 MG TABLET (WCH) PO ×2 (11:33→22:16)
[2024-02-10] MEDS: Famotidine 20 MG Tablet PO (11:33)
[2024-02-10] MEDS: Ondansetron 4 MG/2 ML Vial IV (14:16)
--- NOTE | 2024-02-10 16:02 | CT_ITS ---
STUDY: CT ABDOMEN AND PELVIS WITH CONTRAST REASON FOR EXAM: Female, 83 years old. nausea vomiting. RADIATION DOSAGE (If Supplied By Facility): CTDIvol = ( 19.57 ) mGy, DLP = ( 1170.23 ) mGycm TECHNIQUE: Transaxial images were obtained from the dome of the diaphragm to the symphysis pubis without oral contrast. Oral and amp; IV Gastrografin and amp; 100mL Isovue-370 was administered. Sagittal and coronal images were reconstructed. Individualized dose optimization techniques were used for this CT. COMPARISON: July 22, 2023 FINDINGS: There is minimal subsegmental atelectasis at left base. The heart is mildly enlarged and there is minor coronary artery calcification The liver is normal size. There is a very small well marginated nodule posterior to the right lobe unchanged since previous exam. Gallbladder has been removed surgically.. Normal spleen. Normal pancreas. Normal bilateral adrenal glands. Normal right kidney. Normal left kidney. There is concentric thickening of the wright of the distal stomach at the gastroduodenal junction consistent with nonspecific gastroduodenitis. Normal small intestine. Diverticular changes of the ascending, transverse and descending colon without evidence for acute diverticulitis. Normal appendix is not visualized status post appendectomy Atherosclerotic change of the aorta without evidence for aneurysm. Normal inferior vena cava. Normal retroperitoneum. Normal urinary bladder. Uterus not visualized status post hysterectomy Normal abdominal wall. Lumbar spine demonstrates degenerative change. Left hip prosthesis is noted CT/Abdomen/Pelvis WITH Contrast IMPRESSION: Findings consistent with nonspecific gastroduodenitis. Diverticular disease of the ascending transverse and descending colon without evidence for acute diverticulitis. No evidence for small bowel obstruction or other acute abnormality Electronically Signed: Blu Larsen MD at 19:08 EDT ,
[2024-02-10 16:26] VITALS: BP 118/55; PULSE 80; RESP 18; TEMP 36.4; O2SAT 92
[2024-02-10] MEDS: dilTIAZem CD 120 MG Capsule PO (16:27)
[2024-02-10 22:06] VITALS: BP 124/60; PULSE 82; RESP 16; TEMP 36.5; O2SAT 94
[2024-02-10] MEDS: Donepezil HCl 10 MG Tablet PO (22:16)
[2024-02-10] MEDS: DULoxetine Hcl 30 MG Capsule PO (22:16)
[2024-02-10] MEDS: Losartan Potassium 25 MG Tablet PO (22:16)
[2024-02-11] MEDS: 0.9% Saline Lock 10 ML Syringe IV ×2 (01:18→05:52)
[2024-02-11] MEDS: proCHLORPERazine 10 MG/2 ML Vial 5 MG IV ×4 (01:18→23:37)
[2024-02-11 03:38] VITALS: BMI 27.3
[2024-02-11 04:00] VITALS: BP 120/55; PULSE 68; RESP 16; TEMP 36.5; O2SAT 93
[2024-02-11] MEDS: Nystatin Powder 15gm Bottle 1 APPLIC TOPICAL ×3 (05:52→21:52)
[2024-02-11 06:54] LABS: Absolute Lymphocyte Count 0.83 X10^3/uL (0.83-4.51); Absolute Neutrophil Count 10.2 X10^3/uL (2.0-7.7); Basophil# 0.04 X10^3/uL; Basophil% 0.3 % (0-1); Eosinophil# 0.04 X10^3/uL; Eosinophils% 0.3 % (0-5); Hematocrit 41.3 % (37-47); Hemoglobin 12.8 g/dL (12.0-15.0); Lymphocyte # 0.83 X10^3/ul (0.83-4.51); Lymphocyte % 7.1 % (19-41); Mean Corpuscular Hgb 33.4 pg (27.0-32.0); Mean Corpuscular Volume 107.8 fL (81-99); Mean Platelet Vol. 9.8 fl (6.2-12.0); Monocyte# 0.59 X10^3/uL; NRBC Flagged by Analyzer 0 % (0-5); Neutrophil # 10.21 X10^3/uL (2.7-7.7); Neutrophil % 86.9 % (47-70); Platelet Count 287 K/mm3 (150-450); RBC Distribution Width CV 13.9 % (11.6-14.6); RBC Distribution Width SD 55.7 fl (35.1-43.9); Red Blood Count 3.83 M/mm3 (4.2-5.4); White Blood Count 11.8 K/mm3 (4.4-11.0)
[2024-02-11 07:28] LABS: AST(SGOT) 26 U/L (15-37); Alanine Aminotransfer ALT/SGPT 28 U/L (13-56); Albumin, Serum 3.3 g/dL (3.2-5.0); Alkaline Phosphatase 139 U/L (45-117); Anion Gap 7 (5-15); BUN 24 mg/dL (7-18); BUN/Creat Ratio 33.4 RATIO (10-20); Calcium,Total 9.3 mg/dL (8.5-10.1); Chloride 104 mmol/L (98-107); Creatinine, Serum 0.72 mg/dL (0.55-1.02); EST Glomerular Filtration Rate 82 mL/min (>60); Est Glom Filt Rate - Afr Amer 99 mL/min (>60); Estimated Creatinine Clearance 55.78 ml/min; Globulin 3.2 g/dL (2.2-4.2); Glucose 100 mg/dL (74-106); Potassium 3.7 mmol/L (3.5-5.1); Protein, Total 6.5 g/dL (6.4-8.2); Sodium Level 139 mmol/L (136-145)
--- NOTE | 2024-02-11 08:57 | PN.HOSP_ITS ---
Reason for Visit Reason for Visit: Diagnoses Other ventricular tachycardia (02/02/24) Unspecified atrial fibrillation (02/02/24) Cellulitis of left lower limb (02/02/24) Vomiting, unspecified (02/02/24) Unspecified convulsions (02/02/24) Personal history of other specified conditions (02/02/24) Subjective Subjective Still with vomiting. This AM had milk (noted lactose-intolerance) Objective Data Objective Data Vital Signs: Vital Signs Temp Pulse Resp BP Pulse Ox O2 Del Method O2 Flow Rate 36.5 C L 68 16 120/55 L 93 Room Air 2 02/11/24 04:00 02/11/24 04:00 02/11/24 04:00 02/11/24 04:00 02/11/24 04:00 02/11/24 08:02 02/06/24 02:42 Oxygen Flow Rate (L/min) 2 Oxygen Delivery Method Room Air Weight: 79.4 kg Body Mass Index (BMI) 27.3 Intake & Output: Intake and Output for Last 24 Hours 02/09/24 02/10/24 02/11/24 23:59 23:59 23:59 Intake Total 870 / 870 0 / 0 Output Total 0 / 0 Balance 870 / 870 0 / 0 Lab / Micro Data 02/11/24 06:19 02/11/24 06:19 Labs: Laboratory Results - last 24 hr 02/11/24 06:19: WBC 11.8 H, RBC 3.83 L, Hgb 12.8, Hct 41.3, MCV 107.8 H, MCH 33.4 H, MCHC 31.0 L, RDW Std Deviation 55.7 H, RDW Coeff of Robert 13.9, Plt Count 287, MPV 9.8, Immature Gran % (Auto) 0.400, Neut % (Auto) 86.9 H, Lymph % (Auto) 7.1 L, [place] % (Auto) 5.0, Eos % (Auto) 0.3, Baso % (Auto) 0.3, Absolute Neuts (auto) 10.2 H, Absolute Lymphs (auto) 0.83, Nucleated RBC % 0, Sodium 139, Potassium 3.7, Chloride 104, Carbon Dioxide 28.0, Anion Gap 7, BUN 24 H, Creatinine 0.72, Estim Creat Clear Calc 55.78, Est GFR (MDRD) Af Amer 99, Est GFR (MDRD) Non-Af 82, BUN/Creatinine Ratio 33.4 H, Glucose 100, Calcium 9.3, Total Bilirubin 1.00, AST 26, ALT 28, Alkaline Phosphatase 139 H, Total Protein 6.5, Albumin 3.3, Globulin 3.2, Albumin/Globulin Ratio 1.0 Radiography Diagnostic Testing: Radiology Impression Gastric Emptying Nuclear Medicine 02/09/24 09:10 IMPRESSION: 1. NORMAL 99m Tc sulfur colloid semi-solid phase (oatmeal) gastric emptying imaging examination. A. There is normal and preserved semi-solid phase gastric emptying compared to normal controls. (Isa et al, J Nucl Med Tech 38: 186, 2010). Electronically Signed: Lamont Stovall DO at 14:16 EDT , Abdomen/Pelvis CT 02/10/24 16:02 IMPRESSION: Findings consistent with nonspecific gastroduodenitis. Diverticular disease of the ascending transverse and descending colon without evidence for acute diverticulitis. No evidence for small bowel obstruction or other acute abnormality Electronically Signed: Blu Larsen MD at 19:08 EDT , Physical Exam Const alert Constitutional Narrative: confused. HEENT head/scalp atraumatic and moist oral mucous membranes Resp normal respiratory effort, no retractions, no use of accessory muscles and clear to auscultation bilaterally Cardio regular rate, regular rhythm, S1 normal heart sound and S2 normal heart sound GI normal to inspection, nondistended, normoactive bowel sounds, soft to palpation and non-tender GI Narrative: protuberant, but soft. Neuro Sensorium / Orientation: awake and alert Assessment & Plan Assessment/Plan (1) Atrial fibrillation: QUALIFIERS: Atrial fibrillation type: unspecified Qualified Code(s): I48.91 - Unspecified atrial fibrillation PLAN: [place], by cardiology, to be afib w aberancy, not [place]. No additional work up per cardiology at this time. continue diltiazem, metoprolol succinate, anticoagulation w apixaban. (2) Nonepileptic episode: PLAN: Seen by neurology (who will reevaluate), not felt to be epileptiform activity. Continue Lamictal. Will discontinue the divalproex as there is concern that may be contribute to the ongoing nausea and vomiting VPA level 45 EEG performed and there was body shaking while that was being performed but no epileptiform discharges were noted. (3) Vomiting: PLAN: Abdominal x-ray was negative. GES negative. Speech therapy saw and recommended easy to chew/thin liquids with distant supervision. Still having issues with nausea and vomiting. On review of her medications, through neurology's notes earlier in January with Dr. Wing, patient was started on divalproex. Is unclear if there is any correlation with that but that can be associated with nausea and vomiting. 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 Check CT A/P shows gastroduodenitis. When patient eats, will have her sit upright for 30-60 minutes afterwards. Start pantoprazole (DC H2B). TSH WNL. Consult GI for further recommendations as pt has not improved despite above measures. PLAN: Plan Chronic conditions: * HTN: losartan, metoprolol succinate VTE prophylaxis: not indicated as already on apixaban. Disposition: TBD pending patient's clinical response Charges/Coding Visit Charges Inpatient E&M: 24655 Subs Hosp L2
[2024-02-11] MEDS: Pantoprazole Sodium 40 MG in 0.9% Normal Saline (100mL MB+) 100 ML 330 MG IV ×2 (10:11→21:52)
[2024-02-11 10:53] VITALS: BP 114/56; PULSE 64; RESP 18; TEMP 36.4; O2SAT 92
[2024-02-11] MEDS: Menthol/Lanolin/Calamine/Znox 113 GM Tube 1 APPLIC TOPICAL ×4 (10:55→21:45)
[2024-02-11] MEDS: Spironolactone 25 MG Tablet PO (10:58)
[2024-02-11 10:59] VITALS: PULSE 64
[2024-02-11] MEDS: Aspirin E.C. 81 MG Tablet PO (10:59)
[2024-02-11] MEDS: Metoprolol(XL)Succ 25 MG Tablet PO (10:59)
[2024-02-11] MEDS: Vibegron 75 MG TABLET PO (10:59)
[2024-02-11] MEDS: Furosemide 40 MG Tablet PO (10:59)
[2024-02-11] MEDS: APIXABAN 2.5 MG TABLET (WCH) PO ×2 (10:59→21:51)
[2024-02-11] MEDS: Potassium Chloride Oral Tablet 20 MEQ PO (11:00)
[2024-02-11] MEDS: lamoTRIgine 100 MG Tablet 200 MG PO ×2 (11:00→21:51)
[2024-02-11] MEDS: Ondansetron 4 MG/2 ML Vial IV (12:57)
[2024-02-11 16:00] VITALS: BP 99/66; PULSE 81; RESP 18; TEMP 36.4; O2SAT 92
[2024-02-11] MEDS: dilTIAZem CD 120 MG Capsule PO (16:54)
[2024-02-11] MEDS: MELATONIN 3 MG TABLET PO (21:45)
[2024-02-11] MEDS: Losartan Potassium 25 MG Tablet PO (21:45)
[2024-02-11] MEDS: DULoxetine Hcl 30 MG Capsule PO (21:51)
[2024-02-11] MEDS: Donepezil HCl 10 MG Tablet PO (21:51)
[2024-02-11 22:00] VITALS: BP 107/54; PULSE 82; RESP 18; TEMP 36.2; O2SAT 94
[2024-02-12 03:34] VITALS: BMI 27.3
[2024-02-12 03:55] VITALS: BP 122/58; PULSE 63; RESP 18; TEMP 35.9; O2SAT 96
--- NOTE | 2024-02-12 07:26 | PCM.PN.HOSP ---
Reason for Visit Reason for Visit: Diagnoses Other ventricular tachycardia (02/02/24) Unspecified atrial fibrillation (02/02/24) Cellulitis of left lower limb (02/02/24) Vomiting, unspecified (02/02/24) Unspecified convulsions (02/02/24) Personal history of other specified conditions (02/02/24) Subjective Subjective No vomiting per nursing. Has been eating. Objective Data Objective Data Vital Signs: Vital Signs Temp Pulse Resp BP Pulse Ox O2 Del Method O2 Flow Rate 35.9 C L 63 18 122/58 H 96 Nasal Cannula 2 02/12/24 03:55 02/12/24 03:55 02/12/24 03:55 02/12/24 03:55 02/12/24 03:55 02/12/24 03:55 02/12/24 03:55 Oxygen Flow Rate (L/min) 2 Oxygen Delivery Method Nasal Cannula Weight: 79.2 kg Body Mass Index (BMI) 27.3 Intake & Output: Intake and Output for Last 24 Hours 02/10/24 02/11/24 02/12/24 23:59 23:59 23:59 Intake Total 0 / 0 1020 / 1320 300 / 300 Output Total 0 / 0 600 / 600 Balance 0 / 0 420 / 720 300 / 300 Lab / Micro Data 02/11/24 06:19 02/11/24 06:19 Labs: Laboratory Results - last 24 hr 02/11/24 06:19: Sodium 139, Potassium 3.7, Chloride 104, Carbon Dioxide 28.0, Anion Gap 7, BUN 24 H, Creatinine 0.72, Estim Creat Clear Calc 55.78, Est GFR (MDRD) Af Amer 99, Est GFR (MDRD) Non-Af 82, BUN/Creatinine Ratio 33.4 H, Glucose 100, Calcium 9.3, Total Bilirubin 1.00, AST 26, ALT 28, Alkaline Phosphatase 139 H, Total Protein 6.5, Albumin 3.3, Globulin 3.2, Albumin/Globulin Ratio 1.0, TSH 1.050 Physical Exam Const alert and no apparent distress HEENT head/scalp atraumatic and moist oral mucous membranes Resp normal respiratory effort, no retractions, no use of accessory muscles and clear to auscultation bilaterally Cardio regular rate, regular rhythm, S1 normal heart sound and S2 normal heart sound GI normal to inspection, nondistended, normoactive bowel sounds, soft to palpation, non-tender and non-distended Extremity normal to inspection Assessment & Plan Assessment/Plan (1) Vomiting: PLAN: Abdominal x-ray was negative. GES negative. Speech therapy saw and recommended easy to chew/thin liquids with distant supervision. Still having issues with nausea and vomiting. On review of her medications, through neurology's notes earlier in January with Dr. Wing, patient was started on divalproex. Is unclear if there is any correlation with that but that can be associated with nausea and vomiting. 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 Check CT A/P shows gastroduodenitis. When patient eats, will have her sit upright for 30-60 minutes afterwards. Start pantoprazole (DC H2B). TSH WNL. Consult GI for further recommendations as pt has not improved despite above measures. Though is noted by nursing that nutrition has been overriding the lactose intolerance and providing the patient no containing products. Is unclear if that is what is contributing to her vomiting. But will reinforce strict nondairy diet. (2) Atrial fibrillation: QUALIFIERS: Atrial fibrillation type: unspecified Qualified Code(s): I48.91 - Unspecified atrial fibrillation PLAN: [place], by cardiology, to be afib w aberancy, not [place]. No additional work up per cardiology at this time. continue diltiazem, metoprolol succinate, anticoagulation w apixaban. (3) Nonepileptic episode: PLAN: Seen by neurology (who will reevaluate), not felt to be epileptiform activity. Continue Lamictal. Will discontinue the divalproex as there is concern that may be contribute to the ongoing nausea and vomiting VPA level 45 EEG performed and there was body shaking while that was being performed but no epileptiform discharges were noted. PLAN: Plan Chronic conditions: HTN: losartan, metoprolol succinate VTE prophylaxis: not indicated as already on apixaban. Disposition: TBD pending patient's clinical response Charges/Coding Visit Charges Inpatient E&M: 59254 Subs Hosp L2
[2024-02-12 09:15] VITALS: BP 106/74; PULSE 65; RESP 16; TEMP 36.6; O2SAT 92
[2024-02-12] MEDS: Pantoprazole Sodium 40 MG in 0.9% Normal Saline (100mL MB+) 100 ML 330 MG IV ×2 (10:25→22:57)
[2024-02-12] MEDS: Aspirin E.C. 81 MG Tablet PO (10:27)
[2024-02-12] MEDS: APIXABAN 2.5 MG TABLET (WCH) PO (10:27)
[2024-02-12] MEDS: Spironolactone 25 MG Tablet PO (10:28)
[2024-02-12] MEDS: Menthol/Lanolin/Calamine/Znox 113 GM Tube 1 APPLIC TOPICAL ×4 (10:28→22:56)
[2024-02-12] MEDS: Potassium Chloride Oral Tablet 20 MEQ PO (10:29)
[2024-02-12] MEDS: Vibegron 75 MG TABLET PO (10:29)
[2024-02-12 10:30] VITALS: BP 106/74; PULSE 65
[2024-02-12] MEDS: Metoprolol(XL)Succ 25 MG Tablet PO (10:30)
[2024-02-12] MEDS: lamoTRIgine 100 MG Tablet 200 MG PO (10:30)
[2024-02-12] MEDS: Furosemide 40 MG Tablet PO (10:30)
[2024-02-12] MEDS: Ondansetron 4 MG/2 ML Vial IV (13:50)
[2024-02-12 13:57] VITALS: BP 130/67; PULSE 75; RESP 20; TEMP 36.4; O2SAT 92
[2024-02-12] MEDS: Nystatin Powder 15gm Bottle 1 APPLIC TOPICAL ×2 (14:18→22:57)
[2024-02-12] MEDS: 0.9% Saline Lock 10 ML Syringe IV (14:18)
[2024-02-12] MEDS: 0.9% Normal Saline (1000mL) 1,000 ML 75 ML IV (14:47)
[2024-02-12] MEDS: dilTIAZem CD 120 MG Capsule PO (18:05)
--- NOTE | 2024-02-12 19:23 | EX.PCM.CON.G ---
HPI Consult Data Date of Consult: 02/12/24 HPI Narrative Reason for Consultation: Nausea vomiting HPI Narrative: MAGDY MIRAMONTES, is a 83 F who presented to the ED with seizure-like activity. She was eventually seen by telepsych and diagnosed with pseudoseizures. She has a past medical history of Parkinson's disease, Alzheimer's disease w/ associated underlying dementia with unclear behavioral disturbance she is awaiting placement for Geripsych facility placement given significant underlying psychiatric issues, dementia and pseudoseizures with risk to self however given concern for NSVT on monitors decision to admit and evaluate further prior to crisis reevaluation for psychiatric geriatric placement. She has been having episodes of nausea and vomiting which undigested food. Initially she was thought to possibly have side effects only antiseizure medicines. Those meds have been stopped and she still has problems with nausea and vomiting. All images thus far have not shown the etiology of her nausea vomiting. CT of the brain with chronic involutional changes, CT cervical spine with multilevel degenerative changes, chest x-ray with cardiomegaly, stable increased linear markings at the left lung base suggestive of scarring, plain film of the right hip and pelvis with osteoarthritic changes of the right hip joint with no fracture or dislocation demonstrated. Also CT scan abdomen pelvis did not show any acute abnormalities. [facility] Medical History Mitral regurgitation Aortic valve stenosis with insufficiency Atrial fibrillation Preoperative cardiovascular examination Congestive heart failure (CHF) Dementia Parkinson's disease Rotator cuff tear arthropathy of left shoulder Tremor Cardiomyopathy Aortic stenosis Pericardial effusion Anxiety Depression Hypertension Diabetic neuropathy Acute systolic congestive heart failure Debility Pleural effusion due to CHF (congestive heart failure) Cellulitis of chest wall H/O cardiac murmur Depression Diabetic polyneuropathy Diabetes mellitus Chronic constipation Vitamin D deficiency Hypertension Inability to ambulate due to knee Debility Acute postoperative pain of right knee Wears glasses History of steroid therapy Diabetes Ambulates with cane Arthritis Back pain Injury of back Injury of head and neck Epilepsy Dietary restriction Former smoker Chronic cough Neuropathy History of pain when walking History of stress test History of echocardiogram Cardiology follow-up encounter History of atrial fibrillation Hx of vaginal delivery Hx of back injury Atherosclerotic heart disease of [place] coronary artery without angina pectoris Abnormal stress test History of left heart catheterization (LHC) (~06/02/22) Essential hypertension 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 Neuropathy, diabetic Nephrolithiasis Hypertension DM2 (diabetes mellitus, type 2) Paroxysmal atrial fibrillation Home Medications ?Medication ?Instructions ?Recorded ?Last Taken ?Type duloxetine 30 mg capsule,delayed 30 mg PO QHS NEUROPATHY 09/22/20 07/21/23 History release cyanocobalamin (vitamin B-12) 1,000 mcg PO DAILY supplement 08/10/22 07/21/23 History 1,000 mcg tablet (Vitamin B-12) apixaban 2.5 mg tablet (Eliquis) 2.5 mg PO BID #180 tabs 01/04/23 07/21/23 Rx furosemide 40 mg tablet 40 mg PO DAILY Diuretic 01/04/23 07/21/23 History aspirin 81 mg tablet,delayed 81 mg PO DAILY blood thinner 04/08/23 06/23/23 09:00 History release (Adult Low Dose Aspirin) diltiazem HCl 120 mg 120 mg PO DINNER heart 05/23/23 07/21/23 History capsule,extended release 24 hr (Cartia XT) losartan 25 mg tablet 25 mg PO QHS #90 tabs 10/03/23 Unknown Rx metoprolol succinate 25 mg 25 mg PO DAILY HEART #90 tabs 10/28/23 Unknown Rx tablet,extended release 24 hr potassium chloride 20 mEq 20 meq PO DAILY supplement 01/12/24 Unknown History tablet,extended release(part/cryst) divalproex 250 mg tablet,delayed 250 mg PO BID #60 tabs 01/19/24 Unknown Rx release donepezil 10 mg tablet 10 mg PO QHS #90 tabs 01/19/24 Unknown Rx lamotrigine 200 mg tablet 200 mg PO BID #60 tabs 01/19/24 Unknown Rx spironolactone 25 mg tablet 25 mg PO DAILY #90 tabs 01/26/24 Unknown Rx famotidine 20 mg tablet 20 mg PO BID stomach 02/04/24 Unknown History vibegron 75 mg tablet (Gemtesa) 75 mg PO DAILY bladder muscle 02/04/24 Unknown History dysfunction acetaminophen 325 mg tablet 650 mg (2 x 325 mg) PO Q4H PRN PRN 02/07/24 Unknown Rx Fever, pain 1-1010 #0 tabs Allergy/AdvReac Type Severity Reaction Status Date / Time levetiracetam Allergy Other Verified 02/02/24 14:02 nickel Allergy Rash Verified 02/02/24 14:02 sulfamethoxazole (From Allergy Itching Verified 02/02/24 14:02 Bactrim) trimethoprim (From Bactrim) Allergy Itching Verified 02/02/24 14:02 codeine AdvReac Nausea Verified 02/02/24 14:02 milk AdvReac Nausea/Vom/ Verified 02/02/24 14:02 Diarrhea Family History Father No problems noted. Mother No problems noted. Surgical History History of left hip hemiarthroplasty History of total right knee replacement (TKR) S/P total knee arthroplasty Hx of fusion of cervical spine Hx of cystoscopy Amputated toe of right foot History of hysterectomy History of tonsillectomy Deviated septum History of appendectomy History of cholecystectomy History of neck surgery Social History household members: spouse Smoking Status: Former smoker alcohol intake: never substance use type: does not use caffeine: No what type of physical activity do you participate in: other details: physical therapy seatbelt use: always do you feel safe at home: Yes ROS Review of Systems ROS Unobtainable: due to mental condition Physical Exam Const alert and no apparent distress HEENT head/scalp atraumatic and moist oral mucous membranes Resp normal respiratory effort, no retractions, no use of accessory muscles and clear to auscultation bilaterally Cardio regular rate, regular rhythm, S1 normal heart sound and S2 normal heart sound GI normal to inspection, nondistended, normoactive bowel sounds, soft to palpation, non-tender and non-distended Extremity normal to inspection Lab / Micro Data 02/11/24 06:19 02/11/24 06:19 Assessment & Plan Assessment/Plan (1) Vomiting: PLAN: 83-year-old with Parkinson's, Alzheimer's type dementia and multiple other psychiatric issues with persistent vomiting. Nursing reported nonbilious vomiting, inability to tolerate oral intake, without abdominal pain. Her nausea and vomiting had been ongoing for about a week.? CT scan abdomen pelvis did show some mild inflammation in the stomach and proximal small bowel. However she is now on appropriate nonsecretory therapy. Mucosal inflammation encompasses disorders including Crohn disease, pancreatitis, cholecystitis, hepatitis, and appendicitis.?The patient?s lipase and liver levels were unremarkable, and his physical examination was not consistent with appendiceal or gallbladder pain. Although she was initially thought to have gastroparesis gastric imaging study was normal. Motility disorders require that mechanical obstruction first be ruled out. Functional gastroduodenal disorders include cyclic vomiting and rumination syndrome. Both disorders are more common in children and adolescents and would be unusual to develop in the 8th decade of life.? Pyloric stenosis is a disorder characterized by hypertrophied muscle near the pyloric sphincter. If she has a ulcer at the pyloric sphincter that would explain her symptoms also. She will need to undergo endoscopic evaluation of her upper GI tract for a better idea regarding her motility of the esophagus and stomach. (2) Atrial fibrillation: QUALIFIERS: Atrial fibrillation type: unspecified Qualified Code(s): I48.91 - Unspecified atrial fibrillation PLAN: [place], by cardiology, to be afib w aberancy, not [place]. No additional work up per cardiology at this time. continue diltiazem, metoprolol succinate, anticoagulation w apixaban. (3) Nonepileptic episode: PLAN: Seen by neurology (who will reevaluate), not felt to be epileptiform activity. Continue Lamictal. Will discontinue the divalproex as there is concern that may be contribute to the ongoing nausea and vomiting VPA level 45 EEG performed and there was body shaking while that was being performed but no epileptiform discharges were noted. PLAN: Plan Chronic conditions: HTN: losartan, metoprolol succinate VTE prophylaxis: not indicated as already on apixaban. Disposition: TBD pending patient's clinical response Charges/Coding Visit Charges Inpatient E&M: 94574 Init Hosp L3
[2024-02-12 20:00] VITALS: BP 121/77; PULSE 97; RESP 18; TEMP 36.5; O2SAT 93
--- NOTE | 2024-02-12 21:25 | CT_ITS ---
INDICATION: possible aspiration EXAMINATION: CT CHEST WITHOUT CONTRAST - CT Chest W/O Contrast Injection TECHNIQUE: Helically acquired images were obtained of the chest. A radiation dose optimization technique was used for this scan. IV Contrast dosage and agent: None. COMPARISON: None. FINDINGS: LUNGS, PLEURA AND LARGE AIRWAYS: Some alveolar density in the posterior left lower lobe consistent with atelectasis or pneumonia. No pleural effusion or thickening. No pneumothorax. THYROID: No thyroid lesions. HEART AND PERICARDIUM: Cardiomegaly. No pericardial effusion. CORONARY ARTERIES: Coronary artery calcification is seen. VESSELS: Thoracic aorta is not dilated. MEDIASTINUM AND REESE: No mediastinal or hilar adenopathy. Esophagus is unremarkable. No hiatal hernia. UPPER ABDOMEN: No acute pathology. BONES: No suspicious lytic or blastic abnormality. CT/Chest without Contrast IMPRESSION: Some left lower lobe atelectasis or pneumonia. Cardiomegaly. Electronically Signed: Lamont Ruelas MD at 23:35 EDT ,
[2024-02-12] MEDS: proCHLORPERazine 10 MG/2 ML Vial 5 MG IV (23:08)
[2024-02-13] VITALS (12 sets, daily range): BP systolic 101–133; BP diastolic 43–87; PULSE 59–75; RESP 14–18; TEMP 36.1–37; O2SAT 90–100; BMI 27.0
[2024-02-13] MEDS: Piperacil/Tazobactam 3.375 GM in 0.9% Normal Saline (50mL MB+) 50 ML IV (02:27)
[2024-02-13] MEDS: 0.9% Normal Saline (1000mL) 1,000 ML 75 ML IV (03:38)
[2024-02-13 06:22] LABS: Absolute Lymphocyte Count 1.21 X10^3/uL (0.83-4.51); Absolute Neutrophil Count 5.1 X10^3/uL (2.0-7.7); Basophil# 0.05 X10^3/uL; Basophil% 0.7 % (0-1); Eosinophils% 1.4 % (0-5); Hematocrit 37.8 % (37-47); Hemoglobin 11.9 g/dL (12.0-15.0); Lymphocyte # 1.21 X10^3/ul (0.83-4.51); Lymphocyte % 17.3 % (19-41); Mean Corp Hgb Conc 31.5 g/dL (32-36); Mean Corpuscular Hgb 33.8 pg (27.0-32.0); Mean Corpuscular Volume 107.4 fL (81-99); Mean Platelet Vol. 9.6 fl (6.2-12.0); Monocyte# 0.51 X10^3/uL; Monocyte% 7.3 % (0-10); NRBC Flagged by Analyzer 0 % (0-5); Neutrophil # 5.08 X10^3/uL (2.7-7.7); Neutrophil % 72.6 % (47-70); Platelet Count 258 K/mm3 (150-450); RBC Distribution Width CV 13.4 % (11.6-14.6); RBC Distribution Width SD 53.6 fl (35.1-43.9); Red Blood Count 3.52 M/mm3 (4.2-5.4)
[2024-02-13 06:40] LABS: Partial Thromboplast Time 29.9 Seconds (24.1-36.2)
[2024-02-13 06:50] LABS: Anion Gap 7 (5-15); BUN 18 mg/dL (7-18); BUN/Creat Ratio 29.9 RATIO (10-20); Calcium,Total 8.8 mg/dL (8.5-10.1); Chloride 104 mmol/L (98-107); EST Glomerular Filtration Rate 101 mL/min (>60); Est Glom Filt Rate - Afr Amer 122 mL/min (>60); Estimated Creatinine Clearance 55.39 ml/min; Glucose 89 mg/dL (74-106); Potassium 3.6 mmol/L (3.5-5.1); Sodium Level 141 mmol/L (136-145)
[2024-02-13] MEDS: Pantoprazole Sodium 40 MG in 0.9% Normal Saline (100mL MB+) 100 ML 330 MG IV (08:35)
--- NOTE | 2024-02-13 09:05 | PN.HOSP_ITS ---
Reason for Visit Reason for Visit: Diagnoses Other ventricular tachycardia (02/02/24) Unspecified atrial fibrillation (02/02/24) Cellulitis of left lower limb (02/02/24) Vomiting, unspecified (02/02/24) Unspecified convulsions (02/02/24) Personal history of other specified conditions (02/02/24) Objective Data Objective Data Vital Signs: Vital Signs Temp Pulse Resp BP Pulse Ox O2 Del Method O2 Flow Rate 97.3 F L 59 L 15 118/59 L 94 Room Air 2 02/13/24 08:32 02/13/24 08:32 02/13/24 08:32 02/13/24 08:32 02/13/24 08:32 02/13/24 08:32 02/13/24 07:27 Oxygen Flow Rate (L/min) 2 Oxygen Delivery Method Room Air Weight: 172 lb 6.424 oz Body Mass Index (BMI) 27.0 Intake & Output: Intake and Output for Last 24 Hours 02/11/24 02/12/24 02/13/24 23:59 23:59 23:59 Intake Total 1020 / 1320 670 / 670 1013.75 / 1013.75 Output Total 600 / 600 0 / 0 Balance 420 / 720 670 / 670 1013.75 / 1013.75 Lab / Micro Data 02/13/24 05:20 02/13/24 05:20 Labs: Laboratory Results - last 24 hr 02/13/24 05:20: WBC 7.0, RBC 3.52 L, Hgb 11.9 L, Hct 37.8, MCV 107.4 H, MCH 33.8 H, MCHC 31.5 L, RDW Std Deviation 53.6 H, RDW Coeff of Robert 13.4, Plt Count 258, MPV 9.6, Immature Gran % (Auto) 0.700, Neut % (Auto) 72.6 H, Lymph % (Auto) 17.3 L, [place] % (Auto) 7.3, Eos % (Auto) 1.4, Baso % (Auto) 0.7, Absolute Neuts (auto) 5.1, Absolute Lymphs (auto) 1.21, Nucleated RBC % 0, APTT 29.9, Sodium 141, Potassium 3.6, Chloride 104, Carbon Dioxide 30.0, Anion Gap 7, BUN 18, Creatinine 0.60, Estim Creat Clear Calc 55.39, Est GFR (MDRD) Af Amer 122, Est GFR (MDRD) Non-Af 101, BUN/Creatinine Ratio 29.9 H, Glucose 89, Calcium 8.8 Radiography Diagnostic Testing: Radiology Impression Chest CT 02/12/24 21:25 IMPRESSION: Some left lower lobe atelectasis or pneumonia. Cardiomegaly. Electronically Signed: Lamont Ruelas MD at 23:35 EDT , Physical Exam Narrative Seen and examined. Vomiting, patient was sleeping. She woke up. Seen while confused and asking about her and son. She stated that had vomiting last evening. No abdominal pain. Plan for EGD Physical exam General: Alert, intermittent confusion and disorientation. Cooperative HEENT: Atraumatic, PERRLA, EOMI, Normocephalic Oral: No Gingival or Mucosal Lesions/ Ulcerations Neck: Supple, No JVD, Negative Carotid Bruits Chest wall/Lungs: Air entry diminished in bilateral lung bases. No crepitation/rhonchi Cardiovascular: Regular rate, Regular Rhythm, Normal S1, Normal S2, No M/G/R Abdomen: Bowel Sounds Present, Soft, Non Tender, Non-Distended : No dysuria. No renal angle tenderness. No suprapubic tenderness. Extremities: No edema, Capillary Refill Less than 3 Seconds Skin: No rashes, No breakdown Musculoskeletal: No Tenderness to Palpation of Joints or Extremities Neurological: Cranial nerves II-XII grossly intact, DTR 2+/4. Nonepileptic pseudoseizures event Psych/Mental Status: Anxiety
--- NOTE | 2024-02-13 10:48 | PCM.PRE.AN2 ---
ASA Classification* ASA Classification ASA Classification: 3 Assessment & Plan Anesthesia* Anesthesia Assessment Anesthesia Assessment: Discussed sedation and/or anesthesia options, risks, benefits, and alternatives with patient/parents/legal guardian/POA. Questions invited. The patient/parents/legal guardian/POA seems to understand and agrees to proceed with anesthesia plan. Reviewed the physical assessment, medical history, allergy history and patient home medications list prior to surgery/procedure/anesthetic and documented any changes. Performed airway and anesthesia risk assessments. Anesthesia Type Anesthesia Type: MAC Anesthesia Focused Assessment* Temperature: 97.3 F Pulse Rate: 59 Blood Pressure: 118/59 Respiratory Rate: 15 Pulse Ox: 94 Airway Assessment Mouth opens: >3 cm Mallampati Score: II Focused Labs Anesthesia Preop lab: CBC WBC 7.0 K/mm3 (4.4-11.0) 02/13/24 05:20 RBC 3.52 M/mm3 (4.2-5.4) L 02/13/24 05:20 Hgb 11.9 g/dL (12.0-15.0) L 02/13/24 05:20 Hct 37.8 % (37-47) 02/13/24 05:20 Plt Count 258 K/mm3 (150-450) 02/13/24 05:20 CHEMISTRY Potassium 3.6 mmol/L (3.5-5.1) 02/13/24 05:20 Sodium 141 mmol/L (136-145) 02/13/24 05:20 Magnesium 2.2 mg/dL (1.6-2.6) 02/02/24 22:45 Phosphorus 2.7 mg/dL (2.5-4.9) 02/02/24 22:45 BUN 18 mg/dL (7-18) 02/13/24 05:20 Creatinine 0.60 mg/dL (0.55-1.02) 02/13/24 05:20 Glucose 89 mg/dL (74-106) 02/13/24 05:20 POC Glucose 89 mg/dL (74-106) 02/03/24 12:15 TSH 1.050 uIU/mL (0.358-3.740) 02/11/24 06:19 COAG PT 14.7 SECONDS (11.7-14.9) 06/24/23 05:15 Pre-Assessment Diagnosis/Proposed Procedure Planned Operative Procedure(s): EGD Anesthesia History Anesthesia History - supervisor electronic coils: Anesthesia History - supervisor electronic coils Hx Hospitalization No 01/26/21 11:07 Any Problems With Anesthesia Yes: n/v 06/23/23 11:27 Cholinesterase deficiency No 06/23/23 11:27 You/Your Family Experience No 06/23/23 11:27 fever (hyperthermia) with Relationship Recent Exposure to Contagious No 06/23/23 11:27 Disease Does patient have nerve No 06/23/23 11:27 stimulator Patient instructed to have device shut off --Does patient have Pacemaker or ICD? When Was Last Pacemaker Check QUESTION #4 FULL TEXT: You/Your Family Experience fever (hyperthermia) with Anesthesia Last Oral Intake Last Oral intake: Last Oral Intake NPO since 00:00 02/13/24 04:37 Meds taken in AM with sips of No 02/13/24 04:37 water? Meds patient instructed to take am of surgery PONV PONV - supervisor electronic coils: PONV - supervisor electronic coils Female HX of Motion Sickness HX of N/V After Surgery Non-Smoker Duration of Surgery greater than 60 minutes Number of Risk Factors PONV Score Height & Weight Height & Weight: Anesthesia: Height & Weight Height 5 ft 7 in 02/13/24 10:09 Weight: 78.2 kg 02/13/24 10:09 Body Mass Index (BMI) 27.0 02/13/24 04:37 Respiratory Assessment Respiratory Assessment - supervisor electronic coils: Respiratory Tract Infection Hx - supervisor electronic coils Hx Respiratory Tract Infection No 06/23/23 11:27 STOP Sleep Apnea STOP Sleep Apnea - supervisor electronic coils: STOP Sleep Apnea - supervisor electronic coils Hx Hypertension No 02/03/24 12:47 Hx Sleep Apnea Yes 02/03/24 03:22 CPAP No 02/03/24 03:22 BIPAP No 02/03/24 03:22 Do you snore loudly (louder than talking or can be heard Do you often feel tired/ fatigued/ sleepy during daytime? Has anyone observed you stop breathing during sleep? STOP Results Positive 02/03/24 03:22 QUESTION #5 FULL TEXT : Do you snore loudly (louder than talking or can be heard through closed doors)? Tobacco Use History Tobacco Use History - supervisor electronic coils: Tobacco Use History - supervisor electronic coils Tobacco Use Smoking Status Former smoker 02/03/24 03:22 Hx Tobacco Use No 02/03/24 03:22 Years Smoking Packs Smoked per Day Smoking Cessation Date was No - quit smoking greater 02/03/24 03:22 within the last 15 years than 15 years ago Hx Smoking Cessation Date 10/14/96 02/03/24 03:22 Hx Smoking Cessation Yes 02/03/24 03:22 Counseling Hematologic Medial History Hematologic Hx - supervisor electronic coils: Hematologic Medical Hx - vice president Hx of Blood Transfusion No 02/03/24 03:22 Hx of Transfusion in last 3 No 02/03/24 03:22 Months Date of Last Transfusion (if within last 3 months) Ever experience any problems No 02/03/24 03:22 with transfusion(s)? Specify any problems Hx of Preganancy in last 3 No 02/03/24 03:22 Months Nurse Filling Out Transfusion [email or web address] 02/03/24 03:22 & Questions: Date: 02/03/24 02/03/24 03:22 Time: 03:38 02/03/24 03:22 Patient unable to answer at this time (ie. confused, unrespo /Reproduction History /Reproductive History - supervisor electronic coils: /Reproductive Hx- supervisor electronic coils Hx Now Gestational Age (in weeks): EDC: Hx Hx Para Hx Section SAB No 06/23/23 11:27 Active Medications Active Medications: Current Medications Generic Name Dose Route Start Last Admin Trade Name Freq PRN Reason Stop Dose Admin Acetaminophen 650 mg 02/03/24 03:21 02/06/24 23:34 Acetaminophen 325 Mg Tablet PO 650 mg Q4H PRN PRN Administration Fever, pain 1-10 Al Hydrox/Mg Hydrox/Simethicone 30 ml 02/03/24 03:21 Mag /Aluminum/Simeth Wch Udc 30 Ml Oral.Susp PO Q6H PRN PRN Gastric Burning Apixaban 2.5 mg 02/03/24 10:00 02/13/24 09:19 Apixaban 2.5 Mg Tablet ([facility]) PO Not Given BID ADÁN Aspirin 81 mg 02/03/24 10:00 02/13/24 09:19 Aspirin E.C. 81 Mg Tablet PO Not Given DAILY ADÁN Calamine/Phenol 1 applic 02/03/24 10:00 02/12/24 22:56 Menthol/Lanolin/Calamine/Znox 113 Gm Tube TOPICAL 1 applic 4X/DAY ADÁN Administration Protocol Diltiazem HCl 120 mg 02/03/24 17:00 02/12/24 18:05 Diltiazem Cd 120 Mg Capsule PO 120 mg DINNER ADÁN Administration Protocol Donepezil HCl 10 mg 02/03/24 22:00 02/12/24 23:08 Donepezil Hcl 10 Mg Tablet PO Not Given QHS ADÁN Duloxetine HCl 30 mg 02/03/24 22:00 02/12/24 23:08 Duloxetine Hcl 30 Mg Capsule PO Not Given QHS ADÁN Furosemide 40 mg 02/03/24 10:00 02/13/24 09:20 Furosemide 40 Mg Tablet PO Not Given DAILY ADÁN Protocol Guaifenesin 20 ml 02/03/24 03:21 Guaifenesin 10 Ml Udc (200mg/10ml) PO Q4H PRN PRN COUGH Hydralazine HCl 10 mg 02/03/24 03:21 Hydralazine 20 Mg/Ml Vial IV Q4H PRN PRN SBP > 160 Protocol Sodium Chloride 250 mls @ 15 mls/hr 02/03/24 03:34 IV .[id number] PRN Additional IVPB Infusion Sodium Chloride 250 mls @ 15 mls/hr 02/03/24 03:34 IV .[id number] PRN Saline Flush Pantoprazole Sodium 40 mg/ 110 mls @ 330 mls/hr 02/11/24 10:00 02/13/24 09:12 Sodium Chloride IV Infused Q12 ADÁN Infusion Sodium Chloride 1,000 mls @ 75 mls/hr 02/12/24 14:35 02/13/24 03:38 IV 75 mls/hr .[id number] ADÁN Administration Piperacillin Sod/Tazobactam 50 mls @ 12.5 mls/hr 02/13/24 01:50 02/13/24 06:31 Sod 3.375 gm/ Sodium Chloride IV Infused Q8 ADÁN Infusion Lamotrigine 200 mg 02/03/24 10:00 02/13/24 09:20 Lamotrigine 100 Mg Tablet PO Not Given BID ADÁN Losartan Potassium 25 mg 02/03/24 22:00 02/12/24 23:08 Losartan Potassium 25 Mg Tablet PO Not Given QHS [facility] Protocol Melatonin 3 mg 02/03/24 03:21 02/11/24 21:45 Melatonin 3 Mg Tablet PO 3 mg QHS PRN PRN Administration INSOMNIA Metoprolol Succinate 25 mg 02/03/24 03:21 02/13/24 09:20 Metoprolol(Xl)Succ 25 Mg Tablet PO Not Given DAILY [facility] Protocol Nystatin 1 applic 02/04/24 22:00 02/13/24 04:46 Nystatin Powder 15gm Bottle TOPICAL Not Given TID [facility] Protocol Ondansetron HCl 4 mg 02/10/24 13:44 02/12/24 13:50 Ondansetron 4 Mg/2 Ml Vial IV 4 mg Q6H PRN PRN Administration NAUSEA/VOMITING Potassium Chloride 20 meq 02/03/24 10:00 02/13/24 09:20 Potassium Chloride Oral Tablet 20 Meq PO Not Given DAILY [facility] Prochlorperazine Edisylate 5 mg 02/03/24 03:21 02/12/24 23:08 Prochlorperazine 10 Mg/2 Ml Vial IV 5 mg Q4H PRN PRN Administration Breakthrough Nausea/Vomiting Senna/Docusate Sodium 2 tablet 02/03/24 03:21 Senna/Docusate Sodium 1 Tablet PO BID PRN PRN Constipation Sodium Chloride 10 - 40 ml 02/03/24 03:34 02/12/24 14:18 0.9% Saline Lock 10 Ml Syringe IV 10 ml UD PRN Administration SALINE FLUSH Spironolactone 25 mg 02/03/24 10:00 02/13/24 09:19 Spironolactone 25 Mg Tablet PO Not Given DAILY [facility] Protocol ON LICENSE OF [facility] Medical History Mitral regurgitation Aortic valve stenosis with insufficiency Atrial fibrillation Preoperative cardiovascular examination Congestive heart failure (CHF) Dementia Parkinson's disease Rotator cuff tear arthropathy of left shoulder Tremor Cardiomyopathy Aortic stenosis Pericardial effusion Anxiety Depression Hypertension Diabetic neuropathy Acute systolic congestive heart failure Debility Pleural effusion due to CHF (congestive heart failure) Cellulitis of chest wall H/O cardiac murmur Depression Diabetic polyneuropathy Diabetes mellitus Chronic constipation Vitamin D deficiency Hypertension Inability to ambulate due to knee Debility Acute postoperative pain of right knee Wears glasses History of steroid therapy Diabetes Ambulates with cane Arthritis Back pain Injury of back Injury of head and neck Epilepsy Dietary restriction Former smoker Chronic cough Neuropathy History of pain when walking History of stress test History of echocardiogram Cardiology follow-up encounter History of atrial fibrillation Hx of vaginal delivery Hx of back injury Atherosclerotic heart disease of [place] coronary artery without angina pectoris Abnormal stress test History of left heart catheterization (LHC) (~06/02/22) Essential hypertension Other longterm (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 Neuropathy, diabetic Nephrolithiasis Hypertension DM2 (diabetes mellitus, type 2) Paroxysmal atrial fibrillation Home Medications ?Medication ?Instructions ?Recorded ?Last Taken ?Type duloxetine 30 mg capsule,delayed 30 mg PO QHS NEUROPATHY 09/22/20 07/21/23 History release cyanocobalamin (vitamin B-12) 1,000 mcg PO DAILY supplement 08/10/22 07/21/23 History 1,000 mcg tablet (Vitamin B-12) apixaban 2.5 mg tablet (Eliquis) 2.5 mg PO BID #180 tabs 01/04/23 07/21/23 Rx furosemide 40 mg tablet 40 mg PO DAILY Diuretic 01/04/23 07/21/23 History aspirin 81 mg tablet,delayed 81 mg PO DAILY blood thinner 04/08/23 06/23/23 09:00 History release (Adult Low Dose Aspirin) diltiazem HCl 120 mg 120 mg PO DINNER heart 05/23/23 07/21/23 History capsule,extended release 24 hr (Cartia XT) losartan 25 mg tablet 25 mg PO QHS #90 tabs 10/03/23 Unknown Rx metoprolol succinate 25 mg 25 mg PO DAILY HEART #90 tabs 10/28/23 Unknown Rx tablet,extended release 24 hr potassium chloride 20 mEq 20 meq PO DAILY supplement 01/12/24 Unknown History tablet,extended release(part/cryst) divalproex 250 mg tablet,delayed 250 mg PO BID #60 tabs 01/19/24 Unknown Rx release donepezil 10 mg tablet 10 mg PO QHS #90 tabs 01/19/24 Unknown Rx lamotrigine 200 mg tablet 200 mg PO BID #60 tabs 01/19/24 Unknown Rx spironolactone 25 mg tablet 25 mg PO DAILY #90 tabs 01/26/24 Unknown Rx famotidine 20 mg tablet 20 mg PO BID stomach 02/04/24 Unknown History vibegron 75 mg tablet (Gemtesa) 75 mg PO DAILY bladder muscle 02/04/24 Unknown History dysfunction acetaminophen 325 mg tablet 650 mg (2 x 325 mg) PO Q4H PRN PRN 02/07/24 Unknown Rx Fever, pain 1-02/22 #0 tabs Allergy/AdvReac Type Severity Reaction Status Date / Time levetiracetam Allergy Other Verified 02/02/24 14:02 nickel Allergy Rash Verified 02/02/24 14:02 sulfamethoxazole (From Allergy Itching Verified 02/02/24 14:02 Bactrim) trimethoprim (From Bactrim) Allergy Itching Verified 02/02/24 14:02 codeine AdvReac Nausea Verified 02/02/24 14:02 milk AdvReac Nausea/Vom/ Verified 02/02/24 14:02 Diarrhea Family History Father No problems noted. Mother No problems noted. Surgical History History of left hip hemiarthroplasty History of total right knee replacement (TKR) S/P total knee arthroplasty Hx of fusion of cervical spine Hx of cystoscopy Amputated toe of right foot History of hysterectomy History of tonsillectomy Deviated septum History of appendectomy History of cholecystectomy History of neck surgery Social History household members: spouse Smoking Status: Former smoker alcohol intake: never substance use type: does not use caffeine: No what type of physical activity do you participate in: other details: physical therapy seatbelt use: always do you feel safe at home: Yes Review of Systems (Anesthesia) ROS Narrative System reviewed and no additional complaints, except as documented.
[2024-02-13] MEDS: Lactated Ringers 1,000 ML 15 ML IV (11:00)
--- NOTE | 2024-02-13 11:21 | PCM.TXEXTCAR ---
Diet Diet Order/Speech Therapy: 02/13/24 00:01 Diet: Nothing Per Oral Dietary Modifications:: No Milk to Drink Type of Dietary Supplement:: 120 ml Ensure Clear tid Diet Comments: dairy allergy, dist supv, Easy to Chew textures Routine Orders/Code Status Suppository Type: Dulcolax 10mg Suppository Frequency: Daily PRN Therapies Extremity Affected:: Bilateral Lower Physical Therapy: Eval and Treat Occupational Therapy: Eval and Treat Speech Therapy: Eval and Treat Problem/Diagnosis (1) Vomiting: Status: Acute Code(s): R11.10 - Vomiting, unspecified (2) Atrial fibrillation: Status: Acute Code(s): I48.91 - Unspecified atrial fibrillation (3) Nonepileptic episode: Status: Acute Code(s): R56.9 - Unspecified convulsions Allergies/Procedures Done in Hospital Allergies levetiracetam Allergy (Verified 02/02/24 14:02) Other unsure nickel Allergy (Verified 02/02/24 14:02) Rash sulfamethoxazole (From Bactrim) Allergy (Verified 02/02/24 14:02) Itching trimethoprim (From Bactrim) Allergy (Verified 02/02/24 14:02) Itching codeine Adverse Reaction (Verified 02/02/24 14:02) Nausea milk Adverse Reaction (Verified 02/02/24 14:02) Nausea/Vom/Diarrhea only glass of milk - milk by itself ok with milk in food. Type of Care/Length of Stay Estimated LOS: Convalescent Care Less Than 30 days Type of Care Needed: Skilled Rehab Potential: Fair Prognosis: Fair Additional Orders/Day of Discharge Day of Discharge: 02/07/24 Dietary and Speech Recommendations Dietitian Recommendations/Changes: Recommend to 2000 consistent carb diet with no added salt, as diet is advanced. Will order 120ml ensure clear TID with meals to increase calorie/protein intake. Will monitor weight, as available. Reviewed and approved by Catalina Cordova RD, LD. Discharge Plan Admission Admit Date/Time: 02/02/24 23:17 Primary Reason for Your Visit: Pseudoseizures Attending Provider: Prosper Angeles Primary Care Provider: Nahomy Bettencourt Consulting Providers: Carrie Grant; Sandra Miranda; Isai Smith; Mer Srinivasan; Caitlin Roca; Vane Carrasquillo; Ramses Smith; Marcel Patrick; Ling Ochoa; BROOKS CLARK; Poonam Lee; Collette Matta; Jean Carlos Calles; Isatu Spann; Steve Tesfaye Discharge Orders/Prescriptions Prescriptions: New acetaminophen 325 mg Tablet 650 mg PO Q4H PRN PRN (Reason: Fever, pain 1-02/22) Qty: 0 0RF tamsulosin [Flomax] 0.4 mg capsule 0.4 mg PO DINNER Qty: 30 0RF Continued duloxetine 30 mg capsule,delayed release(DR/EC) 30 mg PO QHS cyanocobalamin (vitamin B-12) [Vitamin B-12] 1,000 mcg tablet 1,000 mcg PO DAILY furosemide 40 mg tablet 40 mg PO DAILY Rx Instructions: AM Eliquis 2.5 mg tablet 2.5 mg PO BID Qty: 180 3RF diltiazem HCl [Cartia XT] 120 mg capsule,extended release 24hr 120 mg PO DINNER divalproex 250 mg tablet,delayed release (DR/EC) 250 mg PO BID Qty: 60 5RF lamotrigine 200 mg tablet 200 mg PO BID Qty: 60 5RF donepezil 10 mg tablet 10 mg PO QHS Qty: 90 1RF aspirin [Adult Low Dose Aspirin] 81 mg tablet,delayed release (DR/EC) 81 mg PO DAILY potassium chloride 20 mEq tablet,ER particles/crystals 20 meq PO DAILY Gemtesa 75 mg tablet 75 mg PO DAILY losartan 25 mg tablet 25 mg PO QHS Qty: 90 3RF metoprolol succinate 25 mg tablet extended release 24 hr 25 mg PO DAILY Qty: 90 3RF Changed spironolactone 25 mg tablet 37.5 mg PO DAILY 30 Days Qty: 90 3RF famotidine 20 mg tablet 20 mg PO DAILY 30 Days Qty: 0 0RF Discontinued oxycodone 5 mg Tablet 5 mg PO Q4H PRN PRN (Reason: Pain Score 6-10) 7 Days Qty: 28 0RF Referrals / Follow Up: Nahomy Bettencourt MD [Primary Care Provider] - Within 2 Weeks Jimenez Wing MD [Non-Staff -Ordering Privileges] - Within 1 Month Modesto Newby DO [Med Staff - Multimedia Designer] - Within 1 Month (Anxiety and depression) Disposition Disposition (needs filled in before D/C Order can be placed): [facility] (2) Atrial fibrillation Qualifiers: Atrial fibrillation type: unspecified Qualified Code(s): I48.91 - Unspecified atrial fibrillation
--- NOTE | 2024-02-13 12:39 | NURSING ---
Dr Calles walked past this patients room at 12:34 and patient was shaking and appeared to be having a seizure. Family was at bedside. Dr. Calles alerted this RN and ordered midazolam. upon arrival of this RN to the patients room patient had stopped seizing. vitals were obtained, oxygen applied and patient appears stable at this time. will continue to monitor
--- NOTE | 2024-02-13 13:44 | OP.CCLET_ITS ---
02/13/2024 Nahomy Bettencourt [id number] [facility] [address] [address] Re : Upper GI endoscopy procedure for Isabelle Burtonnick Dear Dr. Bettencourt This procedure was performed on Tuesday, February 13, 2024. My impressions and recommendations are as follows: Impressions : - Normal esophagus. - No gross lesions in the entire stomach. - No gross lesions in the first portion of the duodenum. - No specimens collected. Recommendations : - Return patient to hospital fine for ongoing care. - Advance diet as tolerated. - Continue present medications. My findings are described in the full procedure note, which is enclosed. If I can be of further assistance, please feel free to contact me at . Sincerely, Selvin Oscar, 02/13/2024 1:43:57 PM This report has been signed electronically.
--- NOTE | 2024-02-13 13:44 | OP.EGD_ITS ---
Patient Name: Isabelle Medrano Procedure Date: 02/13/2024 1:35 PM Date of : 1940 Age: 83 Procedure: Upper GI endoscopy Indications: Persistent vomiting of unknown cause, Vomiting, Regurgitation Providers: Selvin Oscar DO Medicines: Monitored Anesthesia Care Patient Profile: This is an 83 year old female. Refer to note in patient chart for documentation of history and physical. Patient has symptoms of acute vomiting. Complications: No immediate complications. Procedure: Pre-Anesthesia Assessment: - Prior to the procedure, a History and Physical was performed, and patient medications and allergies were reviewed. The patient is competent. The risks and benefits of the procedure and the sedation options and risks were discussed with the patient. All questions were answered and informed consent was obtained. Patient identification and proposed procedure were verified by the physician in the pre-procedure area. Mental Status Examination: alert and oriented. Airway Examination: normal oropharyngeal airway and neck mobility. Respiratory Examination: clear to auscultation. CV Examination: normal. Prophylactic Antibiotics: The patient does not require prophylactic antibiotics. Prior Anticoagulants: The patient has taken no anticoagulant or antiplatelet agents except for NSAID medication. ASA Grade Assessment: II - A patient with mild systemic disease. After reviewing the risks and benefits, the patient was deemed in satisfactory condition to undergo the procedure. The anesthesia plan was to use monitored anesthesia care (MAC). Immediately prior to administration of medications, the patient was re-assessed for adequacy to receive sedatives. The heart rate, respiratory rate, oxygen saturations, blood pressure, adequacy of pulmonary ventilation, and response to care were monitored throughout the procedure. The physical status of the patient was re-assessed after the procedure. After obtaining informed consent, the endoscope was passed under direct vision. Throughout the procedure, the patient's blood pressure, pulse, and oxygen saturations were monitored continuously. The Endoscope was introduced through the mouth, and advanced to the second part of duodenum. The upper GI endoscopy was accomplished without difficulty. The patient tolerated the procedure well. Scope In: 1:39:18 PM Scope Out: 1:41:06 PM Total Procedure Duration Time 0 hours 1 minute 48 seconds Findings: The examined esophagus was normal. No gross lesions were noted in the entire examined stomach. No gross lesions were noted in the first portion of the duodenum. Impression: - Normal esophagus. - No gross lesions in the entire stomach. - No gross lesions in the first portion of the duodenum. - No specimens collected. Recommendation: - Return patient to hospital fine for ongoing care. - Advance diet as tolerated. - Continue present medications. Procedure Code(s): --- Professional --- 72861, Esophagogastroduodenoscopy, flexible, transoral; diagnostic, including collection of specimen(s) by brushing or washing, when performed (separate procedure) CPT copyright 2021 [employer]. All rights reserved. The codes documented in this report are preliminary and upon death surveys coder review may be revised to meet current compliance requirements. Selvin Oscar DO 02/13/2024 1:43:57 PM This report has been signed electronically. Number of Addenda: 0 Note Initiated On: 02/13/2024 1:35 PM
--- NOTE | 2024-02-13 13:51 | PCM.POST.ANE ---
Anesthesia: Postop Eval I Current Vital Signs Temperature: 97.2 F Pulse Rate: 62 Blood Pressure: 101/47 Respiratory Rate: 16 Pulse Ox: 94 Oxygen Delivery Method: Room Air Assessment Airway patent: Yes Spontaneous unlabored respirations: Yes Mental status: Asleep nausea: No Vomiting: No Anesthesia Complication: No Fluid Hydration Crystalloid volume administer (ml): 400 Total IV fluid infused: 400 Progress Note Anesthesia document: Postop Eval 1 completed: Yes
--- NOTE | 2024-02-13 14:53 | PCM.POSTANE2 ---
Anesthesia Postop Eval I Sum Postop Eval Completion status Anesthesia document: Postop Eval 1 completed: Yes Anesthesia Postop Eval I Summary Anesthesia Postop Eval I Summary: Anesthesia Postop Eval I: Assessment Summary Airway patent Yes 02/13/24 13:52 [email or web address] Spontaneous unlabored Yes 02/13/24 13:52 [email or web address] respirations Mental status Asleep 02/13/24 13:52 [email or web address] nausea No 02/13/24 13:52 [email or web address] Vomiting No 02/13/24 13:52 [email or web address] Anesthesia Postop Eval I: Fluid Summary Crystalloid volume administer 400 02/13/24 13:52 [email or web address] (ml) Colloids volume administered ( ml) Blood Product volume administered (ml) Total IV fluid infused 400 02/13/24 13:52 [email or web address] Anesthesia Postop Eval I: Summary Notes Anesthesia Complication No 02/13/24 13:52 [email or web address] Anesthesia Complication Comment: Post-operative progress note Anesthesia: Postop Eval II Evaluation Mental status: Awake Pain Level: 0 nausea: No Vomiting: No
[2024-02-13] MEDS: Menthol/Lanolin/Calamine/Znox 113 GM Tube 1 APPLIC TOPICAL (15:20)
--- NOTE | 2024-02-13 15:20 | CASEMGMT ---
WILMAN spoke with patient's as he told patient's nurse he was not sure where patient will be going. This WILMAN and WILMAN Pascual met with patient's . WILMAN let him know patient will be going to [facility]. He thanked WILMAN. WILMAN told him someone will call him with a sisal picker time. Plan: d/c to Home under skilled level of care on a convalescent stay. Physicians will transport patient. Lea AMATO
[2024-02-13] MEDS: Nystatin Powder 15gm Bottle 1 APPLIC TOPICAL (15:21)
--- NOTE | 2024-02-13 15:28 | PCM.DC.SUM ---
Providers Date of Admission: 02/02/24 Primary Care Physician: Dr. Nahomy Bettencourt MD Consultations 02/03/24 04:33 Consult: Cardiology Routine Consulting Provider: Isai Smith Reason for Consult: Recurrent NSVT EMERGENT Consult: No Notified: Yes Date Notified: 02/03/24 Time Notified: 07:00 Method of Notification: Text 02/03/24 11:49 Neurology [Consult: Tele-Neurology] Routine Consulting Provider: [facility] Reason for Consult: seizures EMERGENT Consult: No MD Notified: Yes Date Notified: 02/03/24 Time Notified: 12:48 Method of Notification: Answ[facility] Service Nursing Unit Staff Notify [facility] of Tele-Neurology Consult: Yes 02/11/24 14:10 Consult: Gastroenterology Routine Consulting Provider: [facility] Reason for Consult: intractable nausea and vomiting. EMERGENT Consult: No Notified: Yes Date Notified: 02/11/24 Time Notified: 14:10 Method of Notification: Text Reason For Visit: NSVT, SUSPECTED PSEUDOSEIZURES Diagnosis Discharge Diagnosis (1) Vomiting: Status: Acute Code(s): R11.10 - Vomiting, unspecified (2) Atrial fibrillation: Status: Acute Code(s): I48.91 - Unspecified atrial fibrillation Qualifiers: Atrial fibrillation type: unspecified Qualified Code(s): I48.91 - Unspecified atrial fibrillation (3) Nonepileptic episode: Status: Acute Code(s): R56.9 - Unspecified convulsions Medications at Discharge Home Medications duloxetine 30 mg capsule,delayed release 30 mg PO QHS NEUROPATHY 09/22/20 cyanocobalamin (vitamin B-12) 1,000 mcg tablet (Vitamin B-12) 1,000 mcg PO DAILY supplement 08/10/22 apixaban 2.5 mg tablet (Eliquis) 2.5 mg PO BID #180 tabs 01/04/23 furosemide 40 mg tablet 40 mg PO DAILY Diuretic 01/04/23 aspirin 81 mg tablet,delayed release (Adult Low Dose Aspirin) 81 mg PO DAILY blood thinner 04/08/23 diltiazem HCl 120 mg capsule,extended release 24 hr (Cartia XT) 120 mg PO DINNER heart 05/23/23 losartan 25 mg tablet 25 mg PO QHS #90 tabs 10/03/23 metoprolol succinate 25 mg tablet,extended release 24 hr 25 mg PO DAILY HEART #90 tabs 10/28/23 potassium chloride 20 mEq tablet,extended release(part/cryst) 20 meq PO DAILY supplement 01/12/24 divalproex 250 mg tablet,delayed release 250 mg PO BID #60 tabs 01/19/24 donepezil 10 mg tablet 10 mg PO QHS #90 tabs 01/19/24 lamotrigine 200 mg tablet 200 mg PO BID #60 tabs 01/19/24 vibegron 75 mg tablet (Gemtesa) 75 mg PO DAILY bladder muscle dysfunction 02/04/24 acetaminophen 325 mg tablet 650 mg (2 x 325 mg) PO Q4H PRN PRN Fever, pain -02/22 #0 tabs 02/07/24 famotidine 20 mg tablet 20 mg PO DAILY stomach 30 days #0 tabs 02/13/24 spironolactone 25 mg tablet 37.5 mg (1.5 x 25 mg) PO DAILY 30 days #90 tabs 02/13/24 tamsulosin 0.4 mg capsule (Flomax) 0.4 mg PO DINNER #30 caps 02/13/24 Weight / BMI Weight Weight: 172 lb 6.424 oz Body Mass Index (BMI) 27.0 ABG / Lab / Microbiology Data 02/13/24 05:20 02/13/24 05:20 Laboratory: Laboratory Results - last 24 hr 02/13/24 05:20: WBC 7.0, RBC 3.52 L, Hgb 11.9 L, Hct 37.8, MCV 107.4 H, MCH 33.8 H, MCHC 31.5 L, RDW Std Deviation 53.6 H, RDW Coeff of Robert 13.4, Plt Count 258, MPV 9.6, Immature Gran % (Auto) 0.700, Neut % (Auto) 72.6 H, Lymph % (Auto) 17.3 L, [place] % (Auto) 7.3, Eos % (Auto) 1.4, Baso % (Auto) 0.7, Absolute Neuts (auto) 5.1, Absolute Lymphs (auto) 1.21, Nucleated RBC % 0, APTT 29.9, Sodium 141, Potassium 3.6, Chloride 104, Carbon Dioxide 30.0, Anion Gap 7, BUN 18, Creatinine 0.60, Estim Creat Clear Calc 55.39, Est GFR (MDRD) Af Amer 122, Est GFR (MDRD) Non-Af 101, BUN/Creatinine Ratio 29.9 H, Glucose 89, Calcium 8.8 Radiography Diagnostic Testing: Radiology Impression Chest CT 02/12/24 21:25 IMPRESSION: Some left lower lobe atelectasis or pneumonia. Cardiomegaly. Electronically Signed: Lamont Ruelas MD at 23:35 EDT , Meaningful Use Info Meaningful Use Meaningful Use Diagnoses (Choose all that apply): None applicable Ischemic Stroke Statin Dosing Therapy Reference: STATIN DOSE THERAPY REFERENCE: * Patients > 75 years receive moderate or high dose statin therapy. * Patients 75 years or YOUNGER should receive HIGH intensity statin dose unless contraindicated. You will be required to document reason for non-treatment if statin daily dose does not meet guidelines. HIGH DOSE STATIN THERAPY DAILY Atorvastatin > than or = to 40 mg Rosuvastatin > than or = to 20 mg Amlodipine + Atorvastatin > than or = to 2.5/40 mg Ezetimibe + Simvastatin 10/80 mg Simvastatin 80mg Discharge Plan Admission Admit Date/Time: 02/02/24 23:17 Primary Reason for Your Visit: Pseudoseizures Attending Provider: Prosper Angeles Primary Care Provider: Nahomy Bettencourt Consulting Providers: Carrie Grant; Sandra Miranda; Isai Smith; Mer Srinivasan; Caitlin Roca; Vane Carrasquillo; Ramses Smith; Marcel Patrick; Ling Ochoa; BROOKS CLARK; Poonam Lee; Collette Matta; Jean Carlos Calles; Isatu Spann; Steve Tesfaye Discharge Orders/Prescriptions Prescriptions: New acetaminophen 325 mg Tablet 650 mg PO Q4H PRN PRN (Reason: Fever, pain 1-10/10) Qty: 0 0RF tamsulosin [Flomax] 0.4 mg capsule 0.4 mg PO DINNER Qty: 30 0RF Continued duloxetine 30 mg capsule,delayed release(DR/EC) 30 mg PO QHS cyanocobalamin (vitamin B-12) [Vitamin B-12] 1,000 mcg tablet 1,000 mcg PO DAILY furosemide 40 mg tablet 40 mg PO DAILY Rx Instructions: AM Eliquis 2.5 mg tablet 2.5 mg PO BID Qty: 180 3RF diltiazem HCl [Cartia XT] 120 mg capsule,extended release 24hr 120 mg PO DINNER divalproex 250 mg tablet,delayed release (DR/EC) 250 mg PO BID Qty: 60 5RF lamotrigine 200 mg tablet 200 mg PO BID Qty: 60 5RF donepezil 10 mg tablet 10 mg PO QHS Qty: 90 1RF aspirin [Adult Low Dose Aspirin] 81 mg tablet,delayed release (DR/EC) 81 mg PO DAILY potassium chloride 20 mEq tablet,ER particles/crystals 20 meq PO DAILY Gemtesa 75 mg tablet 75 mg PO DAILY losartan 25 mg tablet 25 mg PO QHS Qty: 90 3RF metoprolol succinate 25 mg tablet extended release 24 hr 25 mg PO DAILY Qty: 90 3RF Changed spironolactone 25 mg tablet 37.5 mg PO DAILY 30 Days Qty: 90 3RF famotidine 20 mg tablet 20 mg PO DAILY 30 Days Qty: 0 0RF Discontinued oxycodone 5 mg Tablet 5 mg PO Q4H PRN PRN (Reason: Pain Score 6-10) 7 Days Qty: 28 0RF Referrals / Follow Up: Nahomy Bettencourt MD [Primary Care Provider] - Within 2 Weeks Jimenez Wing MD [Non-Staff -Ordering Privileges] - Within 1 Month Modesto Newby DO [Med Staff - Technician Preventative Medicine] - Within 1 Month (Anxiety and depression) Cielo Ignacio MD [Med Staff - Active Staff] - Within 2 Weeks (For urinary retention. Discharged with Ashford catheter.) Disposition Disposition (needs filled in before D/C Order can be placed): [facility]
--- NOTE | 2024-02-13 15:30 | PCM.DC.SUM ---
Providers Date of Admission: 02/02/24 Date of Discharge: 02/13/24 Primary Care Physician: Dr. Nahomy Bettencourt MD Consultations 02/03/24 04:33 Consult: Cardiology Routine Consulting Provider: Isai Smith Reason for Consult: Recurrent NSVT EMERGENT Consult: No Notified: Yes Date Notified: 02/03/24 Time Notified: 07:00 Method of Notification: Text 02/03/24 11:49 Neurology [Consult: Tele-Neurology] Routine Consulting Provider: [facility] Reason for Consult: seizures EMERGENT Consult: No Notified: Yes Date Notified: 02/03/24 Time Notified: 12:48 Method of Notification: [facility] Service Nursing Unit Staff Not[facility] of Tele-Ne[facility]rology Consult: Yes 02/11/24 14:10 Consult: Gastroenterology Routine Consulting Provider: [facility] Reason for Consult: intractable nausea and vomiting. EMERGENT Consult: No Notified: Yes Date Notified: 02/11/24 Time Notified: 14:10 Method of Notification: Text Reason For Visit: NSVT, SUSPECTED PSEUDOSEIZURES Diagnosis Discharge Diagnosis (1) Vomiting: Status: Acute Code(s): R11.10 - Vomiting, unspecified (2) Atrial fibrillation: Status: Acute Code(s): I48.91 - Unspecified atrial fibrillation Qualifiers: Atrial fibrillation type: unspecified Qualified Code(s): I48.91 - Unspecified atrial fibrillation (3) Nonepileptic episode: Status: Acute Code(s): R56.9 - Unspecified convulsions Plan This is a 83-year-old female was admitted for frequent fall, unable to take care at home, brought by EMS. She was found to have abnormal movement by EMS and was thrashing on the cot, she was admitted in PCU. 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 While inpatient, patient was evaluated by neurologist. Not felt to be epileptiform in origin or activity. Patient on Lamictal 200 mg twice daily and divalproex 250 mg twice daily continued as per neurologist recommendation 2. Chronic A-fib: Patient in A-fib with aberrancy. Was seen by senior systems architect and felt no additional workup. Continue diltiazem metoprolol succinate and apixaban. Echo was done which shows EF 60%. No evidence for diastolic dysfunction. Moderate aortic stenosis. 3. Nausea and vomiting:Abdominal x-ray was negative. Gastric emptying negative. Speech therapy saw and recommended easy to chew/thin liquids with distant supervision. CT abdomen pelvis shows nonspecific gastroduodenitis. Diverticular disease of ascending transverse and descending colon without evidence of acute diverticulitis. No acute abnormality. Patient had EGD which reported normal esophagus, no gross lesion in the stomach and duodenum. Patient on famotidine continue I talked to the patient has been admitted to the hospital course. 4. Recurrent urine retention: Patient had 2 times Ashford catheterization during hospital course. Discharged on Flomax 0.4 mg with Ashford catheter. Advised follow-up with urologist Dr. Ignacio for spontaneous voiding trial. Urine culture shows mixed gram-positive organism sensitive contamination. Discharge medication reconciliation done. Discharge follow-up instructions completed. Discharge process discussed with the patient and all questions were answered to patient's satisfaction. Follow with PCP in 1 to 2 weeks Total time spent, exact 35 minutes on discharge meds reconciliation, examination, coordination of care with nurses and ancillary staff, review of imaging and blood test and discussion with the patient on follow-up instructions. Medications at Discharge Home Medications duloxetine 30 mg capsule,delayed release 30 mg PO QHS NEUROPATHY 09/22/20 cyanocobalamin (vitamin B-12) 1,000 mcg tablet (Vitamin B-12) 1,000 mcg PO DAILY supplement 08/10/22 apixaban 2.5 mg tablet (Eliquis) 2.5 mg PO BID #180 tabs 01/04/23 furosemide 40 mg tablet 40 mg PO DAILY Diuretic 01/04/23 aspirin 81 mg tablet,delayed release (Adult Low Dose Aspirin) 81 mg PO DAILY blood thinner 04/08/23 diltiazem HCl 120 mg capsule,extended release 24 hr (Cartia XT) 120 mg PO DINNER heart 05/23/23 losartan 25 mg tablet 25 mg PO QHS #90 tabs 10/03/23 metoprolol succinate 25 mg tablet,extended release 24 hr 25 mg PO DAILY HEART #90 tabs 10/28/23 potassium chloride 20 mEq tablet,extended release(part/cryst) 20 meq PO DAILY supplement 01/12/24 divalproex 250 mg tablet,delayed release 250 mg PO BID #60 tabs 01/19/24 donepezil 10 mg tablet 10 mg PO QHS #90 tabs 01/19/24 lamotrigine 200 mg tablet 200 mg PO BID #60 tabs 01/19/24 vibegron 75 mg tablet (Gemtesa) 75 mg PO DAILY bladder muscle dysfunction 02/04/24 acetaminophen 325 mg tablet 650 mg (2 x 325 mg) PO Q4H PRN PRN Fever, pain 1-02/22 #0 tabs 02/07/24 famotidine 20 mg tablet 20 mg PO DAILY stomach 30 days #0 tabs 02/13/24 spironolactone 25 mg tablet 37.5 mg (1.5 x 25 mg) PO DAILY 30 days #90 tabs 02/13/24 tamsulosin 0.4 mg capsule (Flomax) 0.4 mg PO DINNER #30 caps 02/13/24 Physical Exam Narrative Seen and examined. Patient had vomiting yesterday but not today. She was sleeping but she woke up. In the morning she was confused but later in the day she was fine. No abdominal. Had EGD Physical exam General: Alert, oriented x 3. Cooperative HEENT: Atraumatic, PERRLA, EOMI, Normocephalic Oral: No Gingival or Mucosal Lesions/ Ulcerations Neck: Supple, No JVD, Negative Carotid Bruits Chest wall/Lungs: Air entry diminished in bilateral lung bases. No crepitation/rhonchi Cardiovascular: Regular rate, Regular Rhythm, Normal S1, Normal S2, No M/G/R Abdomen: Bowel Sounds Present, Soft, Non Tender, Non-Distended : No dysuria. No renal angle tenderness. No suprapubic tenderness. Extremities: No edema, Capillary Refill Less than 3 Seconds Skin: No rashes, No breakdown Musculoskeletal: No Tenderness to Palpation of Joints or Extremities Neurological: Cranial nerves II-XII grossly intact, DTR 2+/4. Nonepileptic pseudoseizures event Psych/Mental Status: Anxiety Weight / BMI Weight Weight: 172 lb 6.424 oz Body Mass Index (BMI) 27.0 ABG / Lab / Microbiology Data 02/13/24 05:20 02/13/24 05:20 Laboratory: Laboratory Results - last 24 hr 02/13/24 05:20: WBC 7.0, RBC 3.52 L, Hgb 11.9 L, Hct 37.8, MCV 107.4 H, MCH 33.8 H, MCHC 31.5 L, RDW Std Deviation 53.6 H, RDW Coeff of Robert 13.4, Plt Count 258, MPV 9.6, Immature Gran % (Auto) 0.700, Neut % (Auto) 72.6 H, Lymph % (Auto) 17.3 L, [place] % (Auto) 7.3, Eos % (Auto) 1.4, Baso % (Auto) 0.7, Absolute Neuts (auto) 5.1, Absolute Lymphs (auto) 1.21, Nucleated RBC % 0, APTT 29.9, Sodium 141, Potassium 3.6, Chloride 104, Carbon Dioxide 30.0, Anion Gap 7, BUN 18, Creatinine 0.60, Estim Creat Clear Calc 55.39, Est GFR (MDRD) Af Amer 122, Est GFR (MDRD) Non-Af 101, BUN/Creatinine Ratio 29.9 H, Glucose 89, Calcium 8.8 Radiography Diagnostic Testing: Radiology Impression Chest CT 02/12/24 21:25 IMPRESSION: Some left lower lobe atelectasis or pneumonia. Cardiomegaly. Electronically Signed: Lamont Ruelas MD at 23:35 EDT , Meaningful Use Info Meaningful Use Meaningful Use Diagnoses (Choose all that apply): None applicable Ischemic Stroke Statin Dosing Therapy Reference: STATIN DOSE THERAPY REFERENCE: * Patients > 75 years receive moderate or high dose statin therapy. * Patients 75 years or YOUNGER should receive HIGH intensity statin dose unless contraindicated. You will be required to document reason for non-treatment if statin daily dose does not meet guidelines. HIGH DOSE STATIN THERAPY DAILY Atorvastatin > than or = to 40 mg Rosuvastatin > than or = to 20 mg Amlodipine + Atorvastatin > than or = to 2.5/40 mg Ezetimibe + Simvastatin 10/80 mg Simvastatin 80mg Discharge Plan Admission Admit Date/Time: 02/02/24 23:17 Primary Reason for Your Visit: Pseudoseizures Attending Provider: Prosper Angeles Primary Care Provider: Nahomy Bettencourt Consulting Providers: Carrie Grant; Sandra Miranda; Isai Smith; Mer Srinivasan; Caitlin Roca; Vane Carrasquillo; Ramses Smith; Marcel Patrick; Ling Ochoa; BROOKS CLARK; Poonam Lee; Collette Matta; Jean Carlos Calles; Isatu Spann; Steve Tesfaye Discharge Orders/Prescriptions Prescriptions: New acetaminophen 325 mg Tablet 650 mg PO Q4H PRN PRN (Reason: Fever, pain 1-02/22) Qty: 0 0RF tamsulosin [Flomax] 0.4 mg capsule 0.4 mg PO DINNER Qty: 30 0RF Continued duloxetine 30 mg capsule,delayed release(DR/EC) 30 mg PO QHS cyanocobalamin (vitamin B-12) [Vitamin B-12] 1,000 mcg tablet 1,000 mcg PO DAILY furosemide 40 mg tablet 40 mg PO DAILY Rx Instructions: AM Eliquis 2.5 mg tablet 2.5 mg PO BID Qty: 180 3RF diltiazem HCl [Cartia XT] 120 mg capsule,extended release 24hr 120 mg PO DINNER divalproex 250 mg tablet,delayed release (DR/EC) 250 mg PO BID Qty: 60 5RF lamotrigine 200 mg tablet 200 mg PO BID Qty: 60 5RF donepezil 10 mg tablet 10 mg PO QHS Qty: 90 1RF aspirin [Adult Low Dose Aspirin] 81 mg tablet,delayed release (DR/EC) 81 mg PO DAILY potassium chloride 20 mEq tablet,ER particles/crystals 20 meq PO DAILY Gemtesa 75 mg tablet 75 mg PO DAILY losartan 25 mg tablet 25 mg PO QHS Qty: 90 3RF metoprolol succinate 25 mg tablet extended release 24 hr 25 mg PO DAILY Qty: 90 3RF Changed spironolactone 25 mg tablet 37.5 mg PO DAILY 30 Days Qty: 90 3RF famotidine 20 mg tablet 20 mg PO DAILY 30 Days Qty: 0 0RF Discontinued oxycodone 5 mg Tablet 5 mg PO Q4H PRN PRN (Reason: Pain Score 6-10) 7 Days Qty: 28 0RF Referrals / Follow Up: Nahomy Bettencourt MD [Primary Care Provider] - Within 2 Weeks Cielo Ignacio MD [Med Staff - Active Staff] - Within 2 Weeks (For urinary retention. Discharged with Ashford catheter.) Jimenez Wing MD [Non-Staff -Ordering Privileges] - Within 1 Month Modesto Newby DO [Med Staff - Income Tax Consultant] - Within 1 Month (Anxiety and depression) Disposition Disposition (needs filled in before D/C Order can be placed): [facility] Charges/Coding Visit Charges Inpatient E&M: 00848 Disch Hosp >30min
--- NOTE | 2024-02-13 16:14 | CASEMGMT ---
Discharge Planning Discharge orders, signed med list, and transport time sent to [facility] via [facility]. Physicians will transport patient by cot at 4:30p. Nursing, SW, patient, and her updated. Coleen Dotson DC Planning Asst.
--- NOTE | 2024-02-13 16:15 | NURSING ---
Report called the [facility].
== END 2024-02-13 16:42 | disposition skilled nursing facility (03) | DRG 309 ==
LOC: ED 22:43 → PCU 02-03 04:56 → MS2 02-03 08:47 → PCU 02-03 08:48
PROVIDERS: Anesthesiology; Internal Medicine Gastroenterology; Student in an Organized Health Care Education/Training Program; Admitting Provider Family Medicine; Emergency Provider Emergency Medicine; PCP Family Medicine; Visit Provider Internal Medicine
PROC: 0DJ08ZZ Inspection of Upper Intestinal Tract, Via Natural or Artificial Opening Endoscopic (ICD-10-PCS; CPT 43235; principal; 2024-02-13 11:40)
DX: I48.20 Chronic atrial fibrillation, unspecified (principal); I13.0 Hypertensive heart and chronic kidney disease with heart failure and stage 1 through stage 4 chronic kidney disease, or unspecified chronic kidney disease; F02.A18 Dementia in other diseases classified elsewhere, mild, with other behavioral disturbance; I50.20 Unspecified systolic (congestive) heart failure; G40.901 Epilepsy, unspecified, not intractable, with status epilepticus; I47.29 Other ventricular tachycardia; G30.9 Alzheimer's disease, unspecified; E11.22 Type 2 diabetes mellitus with diabetic chronic kidney disease; N18.30 Chronic kidney disease, stage 3 unspecified; G20.A1 Parkinson's disease without dyskinesia, without mention of fluctuations; E11.42 Type 2 diabetes mellitus with diabetic polyneuropathy; I25.10 Atherosclerotic heart disease of native coronary artery without angina pectoris; K29.90 Gastroduodenitis, unspecified, without bleeding; Z66 Do not resuscitate; Z87.891 Personal history of nicotine dependence; Z79.899 Other long term (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
CPT/HCPCS: 36415; 51702; 70450; 71045; 71250; 72125; 73502; 74018; 74177; 78264; 80048; 80053; 80061; 80164; 80307; 81001; 82077; 82542; 82962; 83690; 83735; 84100; 84443; 84484; 85025; 85027; 85730; 92526; 92610; 93005; 93306; 95819; 97110; 97162; 97166; 97530; 97535; 99285; A9541; J7030; J7040; J7120; Q9957; Q9967; A4216; C8929; J2405

== ENCOUNTER 2024-02-26 11:24 | Inpatient (IN) | payer MEDICARE, SELFPAY ==
[2024-02-26] VITALS (8 sets, daily range): BP systolic 94–190; BP diastolic 59–99; PULSE 55–73; RESP 16–19; TEMP 36.4–36.6; O2SAT 92–100; BMI 26.0; BMI 25.1
--- NOTE | 2024-02-26 11:39 | CT_ITS ---
STUDY: CT BRAIN WITHOUT CONTRAST REASON FOR EXAM: Female, 83 years old. Altered mental status RADIATION DOSAGE (If Supplied By Facility): CTDIvol = ( 44.99 ) mGy, DLP = ( 798.92 ) mGycm TECHNIQUE: Transaxial CT imaging of the brain was performed without administration of intravenous contrast material. Individualized dose optimization techniques were used for this CT. COMPARISON: 02/02/2024 FINDINGS: Normal soft tissue structures. There is hyperostosis frontalis internus. There is moderate cerebral atrophy with widening of the extra-axial spaces and ventricular dilatation. There are areas of decreased attenuation within the white matter tracts of the supratentorial brain, consistent with microvascular disease changes. Normal basal ganglia and thalami. Normal brainstem. Normal cerebellum. There is no intracranial hemorrhage. There are no findings of an acute ischemic infarction. Normal visualized paranasal sinuses. CT/Brain/Head without Contrast IMPRESSION: Chronic involutional changes of the brain. Electronically Signed: Lamont Ruelas MD at 13:41 EDT ,
--- NOTE | 2024-02-26 11:40 | EKG12_ITS ---
Test Reason : ALC Blood Pressure : / mmHG Vent. Rate : 080 BPM Atrial Rate : 000 BPM P-R Int : 000 ms QRS Dur : 122 ms QT Int : 400 ms P-R-T Axes : 000 000 150 degrees QTc Int : 461 ms Atrial fibrillation Non-specific intra-ventricular conduction delay Marked ST abnormality, possible lateral subendocardial injury Abnormal ECG Confirmed by Mehrdad Garcia ([id number]), art editor MIKE CHAND ([id number]) on 02/28/2024 7:51:11 AM Referred By: NAMITA Confirmed By:Mehrdad Garcia
--- NOTE | 2024-02-26 11:40 | CT_ITS ---
STUDY: CT ABDOMEN AND PELVIS WITH CONTRAST REASON FOR EXAM: Female, 83 years old. abdominal pain RADIATION DOSAGE (If Supplied By Facility): CTDIvol = ( 21.90 ) mGy, DLP = ( 1244.88 ) mGycm TECHNIQUE: Transaxial images were obtained from the dome of the diaphragm to the symphysis pubis without oral contrast. IV 75mL Isovue-[id number] was administered. Sagittal and coronal images were reconstructed. Individualized dose optimization techniques were used for this CT. COMPARISON: 02/10/2024 FINDINGS: Some bibasilar atelectasis. Cardiomegaly. Normal liver. There is non-visualization of the gallbladder, which may be secondary to either contraction or a prior cholecystectomy. Normal spleen. Normal pancreas. Normal bilateral adrenal glands. Normal right kidney. Normal left kidney. Normal visualized stomach. Normal small intestine. There are multiple colonic diverticula consistent with diverticulosis. Large amount of stool within the rectum possibly consistent with a fecal impaction. There is non-visualization of the appendix. Normal abdominal aorta. Normal inferior vena cava. Normal retroperitoneum. Normal urinary bladder. Normal abdominal wall. Chronic mild wedge compression fracture of L1. Degenerative disc disease throughout the lumbar spine. Status post left hip hemiarthroplasty which produces streak artifact and obscures the pelvis. CT/Abdomen/Pelvis W IV Cont ONLY IMPRESSION: Possible fecal impaction. Sigmoid diverticulosis without diverticulitis. Electronically Signed: Lamont Ruelas MD at 13:56 EDT ,
--- NOTE | 2024-02-26 11:41 | RAD_ITS ---
STUDY: X-RAY CHEST REASON FOR EXAM: Female, 83 years old. Emesis TECHNIQUE: Single AP portable view of the chest. COMPARISON: 02/02/2024 FINDINGS: The lungs are clear and expanded. There is no demonstrated pleural abnormality. There is moderate cardiac enlargement. Normal mediastinum and saad. Normal visualized pulmonary arteries. Normal visualized aortic arch and descending thoracic aorta. Normal visualized thoracic spine. Normal visualized ribs, clavicles, and shoulders. There is no demonstrated abnormality of the visualized soft tissue structures of the upper abdomen. RAD/Chest 1 View (Portable) IMPRESSION: No active disease. Cardiomegaly. Electronically Signed: Lamont Ruelas MD at 12:56 EDT ,
--- NOTE | 2024-02-26 11:43 | EX.ED.DYSGE1 ---
HPI History of Present Illness Chief Complaint: Seizure Narrative Narrative: Chief complaint and HPI: Altered mental status, emesis. 83-year-old female with atrial fibrillation on Eliquis, CKD, nonischemic cardiomyopathy, Parkinson's disease, dementia, HFrEF, DM, pseudoseizures, epilepsy presents for evaluation of altered mental status and emesis. On arrival, patient is somnolent and a very poor historian. She is oriented to self and the year but not place or month. She has a history of dementia unknown if this is her baseline. Nursing staff at her care facility was contacted and patient is being taken care of by new aids and therefore they do not know her baseline but report that she is slow to respond and appears altered. Per EMS and nursing staff report, patient was found to be slow to respond and not at her baseline although nobody can clarify what her baseline is. She had vomit on her. Unclear if there was witnessed seizure-like activity or not. Patient endorses nausea and abdominal pain otherwise is a poor historian. She denies fever, chest pain, shortness of breath, dysuria, diarrhea. Review of systems: See HPI Medications: As listed on the chart Allergies: As listed on the chart PFSH: Per chart Vital signs: As listed on the chart. Reviewed. Physical exam: Gen: Somnolent, oriented to self and year but not month or place Head: Normocephalic, atraumatic Eyes: No sclera icterus, conjunctiva clear, PERRL, EOMI ENT: Dry mucous membranes] Neck: Trachea midline, No JVD CV: Regular rate, irregular rhythm, no murmurs Resp: Lungs CTA BL, no w/r/c GI: Abd soft, non-distended, tender to palpation diffusely with large midline hernia, no r/r/g Musc: Moves all extremities, no deformity Skin: Warm, dry Neuro: Grossly intact [facility] Medical History Mitral regurgitation Aortic valve stenosis with insufficiency Atrial fibrillation Preoperative cardiovascular examination Congestive heart failure (CHF) Dementia Parkinson's disease Rotator cuff tear arthropathy of left shoulder Tremor Cardiomyopathy Aortic stenosis Pericardial effusion Anxiety Depression Hypertension Diabetic neuropathy Acute systolic congestive heart failure Debility Pleural effusion due to CHF (congestive heart failure) Cellulitis of chest wall H/O cardiac murmur Depression Diabetic polyneuropathy Diabetes mellitus Chronic constipation Vitamin D deficiency Hypertension Inability to ambulate due to knee Debility Acute postoperative pain of right knee Wears glasses History of steroid therapy Diabetes Ambulates with cane Arthritis Back pain Injury of back Injury of head and neck Epilepsy Dietary restriction Former smoker Chronic cough Neuropathy History of pain when walking History of stress test History of echocardiogram Cardiology follow-up encounter History of atrial fibrillation Hx of vaginal delivery Hx of back injury Atherosclerotic heart disease of [place] coronary artery without angina pectoris Abnormal stress test History of left heart catheterization (LHC) (~06/02/22) Essential hypertension 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 Neuropathy, diabetic Nephrolithiasis Hypertension DM2 (diabetes mellitus, type 2) Paroxysmal atrial fibrillation Home Medications ?Medication ?Instructions ?Recorded ?Last Taken ?Type duloxetine 30 mg capsule,delayed 30 mg PO QHS NEUROPATHY 09/22/20 07/21/23 History release cyanocobalamin (vitamin B-12) 1,000 mcg PO DAILY supplement 08/10/22 07/21/23 History 1,000 mcg tablet (Vitamin B-12) apixaban 2.5 mg tablet (Eliquis) 2.5 mg PO BID #180 tabs 01/04/23 07/21/23 Rx furosemide 40 mg tablet 40 mg PO DAILY Diuretic 01/04/23 07/21/23 History diltiazem HCl 120 mg 120 mg PO DINNER heart 05/23/23 07/21/23 History capsule,extended release 24 hr (Cartia XT) losartan 25 mg tablet 25 mg PO QHS #90 tabs 10/03/23 Unknown Rx metoprolol succinate 25 mg 25 mg PO DAILY HEART #90 tabs 10/28/23 Unknown Rx tablet,extended release 24 hr potassium chloride 20 mEq 20 meq PO DAILY supplement 01/12/24 Unknown History tablet,extended release(part/cryst) divalproex 250 mg tablet,delayed 250 mg PO BID #60 tabs 01/19/24 Unknown Rx release donepezil 10 mg tablet 10 mg PO QHS #90 tabs 01/19/24 Unknown Rx lamotrigine 200 mg tablet 200 mg PO BID #60 tabs 01/19/24 Unknown Rx vibegron 75 mg tablet (Gemtesa) 75 mg PO DAILY bladder muscle 02/04/24 Unknown History dysfunction acetaminophen 325 mg tablet 650 mg (2 x 325 mg) PO Q4H PRN PRN 02/07/24 Unknown Rx Fever, pain 1-02/22 #0 tabs spironolactone 25 mg tablet 37.5 mg (1.5 x 25 mg) PO DAILY 30 02/13/24 Unknown Rx days #90 tabs tamsulosin 0.4 mg capsule (Flomax) 0.4 mg PO DINNER #30 caps 02/13/24 Unknown Rx Allergy/AdvReac Type Severity Reaction Status Date / Time levetiracetam Allergy Other Verified 02/26/24 11:36 nickel Allergy Rash Verified 02/26/24 11:36 sulfamethoxazole (From Allergy Itching Verified 02/26/24 11:36 Bactrim) trimethoprim (From Bactrim) Allergy Itching Verified 02/26/24 11:36 codeine AdvReac Nausea Verified 02/26/24 11:36 milk AdvReac Nausea/Vom/ Verified 02/26/24 11:36 Diarrhea Family History Father No problems noted. Mother No problems noted. Surgical History History of left hip hemiarthroplasty History of total right knee replacement (TKR) S/P total knee arthroplasty Hx of fusion of cervical spine Hx of cystoscopy Amputated toe of right foot History of hysterectomy History of tonsillectomy Deviated septum History of appendectomy History of cholecystectomy History of neck surgery Social History household members: spouse Smoking Status: Former smoker alcohol intake: never substance use type: does not use caffeine: No what type of physical activity do you participate in: other details: physical therapy seatbelt use: always do you feel safe at home: Yes EXAM Physical Exam Const Vital Signs: 02/26/24 11:24 02/26/24 12:02 02/26/24 13:24 Temperature 97.6 F L Temperature Source Temporal Pulse Rate 70 68 Respiratory Rate 18 19 H Respiratory Effort Normal Respiratory Pattern Normal Blood Pressure 128/99 H 94/59 L Blood Pressure Mean 108 70 Pulse Ox 92 97 Oxygen Delivery Method Room Air Oxygen Flow Rate (L/min) 02/26/24 14:06 Temperature Temperature Source Pulse Rate 60 Respiratory Rate 17 Respiratory Effort Respiratory Pattern Blood Pressure 118/75 Blood Pressure Mean 89 Pulse Ox 99 Oxygen Delivery Method Nasal Cannula Oxygen Flow Rate (L/min) 2 MDM MDM MDM Narrative Medical decision making narrative: 83-year-old female with extensive medical history including seizures and pseudoseizures presents for evaluation of reported altered mental status. Patient is a very poor historian and is somnolent. She endorses nausea and abdominal pain. Patient has a history of dementia. I did look at previous notes to determine if patient is at her baseline mentation however it is not clear in previous notes. Previous notes do comment that patient is somnolent and slow to respond which she currently is. On chart review, patient was just recently admitted to our hospital for seizure-like activity. At that time she had an EGD on 02/06/2024 and was diagnosed with pseudoseizures. She was evaluated by neurology. Patient is on Lamictal 200 mg twice daily as well as valproic acid to 250 mg twice daily. Differential diagnosis includes but is not limited to seizure, viral illness, electrolyte abnormality, intra-abdominal pathology, intracranial abnormality, infection such as pneumonia, UTI, ACS. NS bolus and Zofran ordered. Given patient's somnolence will not give any pain medicine. Laboratory workup ordered including CTA abdomen and pelvis and CT head. Will get Lamictal and valproic acid levels. CBC without leukocytosis. Patient has hemoconcentration with a anemia of 15.4. This can be seen with dehydration. CMP relatively unremarkable. No HAKAN. No transaminitis. Lipase unremarkable. Troponin unremarkable. She has some mild elevation in alk phos at 163 however it was 139 on 02/10. Also can be seen with dehydration and vomiting. ABG shows normal pCO2. pO2 is 69.4 despite her being 94% on pulse ox. Respiratory does state that the sample was arterial therefore will place on 2 L nasal cannula. Lactic acid unremarkable. Magnesium level unremarkable. Valproic acid level is low at 40. Patient currently not having any seizures. UA positive for UTI. Urine culture sent. Rocephin ordered. CT head shows chronic changes but no acute pathology. CT abdomen pelvis shows chronic wedge compression fracture of L1. Large amount of stool in the rectum. Sigmoid diverticulosis without diverticulitis. Patient's encephalopathy is likely secondary to UTI. I do not suspect that she had a seizure given that she has a normal lactic acid. Patient will warrant admission to the hospital. Patient was discussed with Dr. Ni. She accepted admission. EKG: Interpreted by me/EM physician: EKG shows atrial fibrillation with nonspecific ST changes. Heart rate 80. Diagnostic: Interpreted by me/EM physician: Chest x-ray without pneumonia, effusion, pneumothorax. Cardiomegaly Impression: 1. Metabolic encephalopathy 2. UTI 3. Abdominal pain 4. Nausea Lab Data Labs: Laboratory Results - last 24 hr 02/26/24 02/26/24 02/26/24 11:41 11:50 12:25 WBC 10.0 RBC 4.51 Hgb 15.4 H Hct 47.2 H MCV 104.7 H MCH 34.1 H MCHC 32.6 RDW Std Deviation 49.8 H RDW Coeff of Robert 12.7 Plt Count 289 MPV 9.7 Immature Gran % (Auto) 0.700 Neut % (Auto) 83.8 H Lymph % (Auto) 9.2 L [place] % (Auto) 5.4 Eos % (Auto) 0.4 Baso % (Auto) 0.5 Absolute Neuts (auto) 8.3 H Absolute Lymphs (auto) 0.92 Nucleated RBC % 0 PT 15.4 H INR 1.2 APTT 29.5 Sodium 137 Potassium 3.8 Chloride 100 Carbon Dioxide 29.0 Anion Gap 8 BUN 19 H Creatinine 0.72 Estim Creat Clear Calc 54.51 Est GFR (MDRD) Af Amer 99 Est GFR (MDRD) Non-Af 82 BUN/Creatinine Ratio 26.3 H Glucose 121 H Lactic Acid 1.2 Calcium 10.0 Magnesium 2.1 Total Bilirubin 0.60 AST 21 ALT 27 Alkaline Phosphatase 163 H Troponin I High Sens 9 Total Protein 7.2 Albumin 3.6 Globulin 3.6 Albumin/Globulin Ratio 1.0 Lipase 23 Urine Color Yellow Urine Clarity Cloudy Urine pH 6.0 Ur Specific [place] 1.025 Urine Protein 30 H Urine Glucose (UA) Normal Urine Ketones 15 H Urine Occult Blood 250 H Urine Nitrite Positive H Urine Bilirubin 1 H Urine Urobilinogen 4 H Ur Leukocyte Esterase 100 H Urine RBC 0 SEEN Urine WBC 10-25 SEEN Ur Squamous Epith Cells 0 SEEN Urine Bacteria 3+ Urine Mucus 0 SEEN Valproic Acid 40 L ABG Data ABG results: ABG 02/26/24 12:14 Specimen Type ART Sample Site L Radial pH 7.45 Bicarbonate Actual 29.4 H Total CO2 31 Base Excess 5 H O2 Saturation 94 L O2 % 21.0 ABG pCO2 42.6 ABG pO2 69 L O2 Delivery Device Not entered Vent Mode Not entered Radiography Diagnostic Testing: Clinical Impression(s) from Imaging Studies Brain CT 02/26/24 11:39 IMPRESSION: Chronic involutional changes of the brain. Electronically Signed: Lamont Ruelas MD at 13:41 EDT , Abdomen/Pelvis CT 02/26/24 11:40 IMPRESSION: Possible fecal impaction. Sigmoid diverticulosis without diverticulitis. Electronically Signed: Lamont Ruelas MD at 13:56 EDT , Chest X-Ray 02/26/24 11:41 IMPRESSION: No active disease. Cardiomegaly. Electronically Signed: Lamont Ruelas MD at 12:56 EDT Reading Location ID and State: [id number] / [employer] Tel , Service support , Discharge Plan Triage Chief Complaint: Seizure ED Provider: Wale Lange Dx/Rx/DC Orders Prescriptions: No Action duloxetine 30 mg capsule,delayed release(DR/EC) 30 mg PO QHS cyanocobalamin (vitamin B-12) [Vitamin B-12] 1,000 mcg tablet 1,000 mcg PO DAILY furosemide 40 mg tablet 40 mg PO DAILY Rx Instructions: AM Eliquis 2.5 mg tablet 2.5 mg PO BID Qty: 180 3RF diltiazem HCl [Cartia XT] 120 mg capsule,extended release 24hr 120 mg PO DINNER divalproex 250 mg tablet,delayed release (DR/EC) 250 mg PO BID Qty: 60 5RF lamotrigine 200 mg tablet 200 mg PO BID Qty: 60 5RF donepezil 10 mg tablet 10 mg PO QHS Qty: 90 1RF potassium chloride 20 mEq tablet,ER particles/crystals 20 meq PO DAILY Gemtesa 75 mg tablet 75 mg PO DAILY acetaminophen 325 mg Tablet 650 mg PO Q4H PRN PRN (Reason: Fever, pain -02/22) Qty: 0 0RF spironolactone 25 mg tablet 37.5 mg PO DAILY 30 Days Qty: 90 3RF tamsulosin [Flomax] 0.4 mg capsule 0.4 mg PO DINNER Qty: 30 0RF losartan 25 mg tablet 25 mg PO QHS Qty: 90 3RF metoprolol succinate 25 mg tablet extended release 24 hr 25 mg PO DAILY Qty: 90 3RF Primary Care Provider: Nahomy Bettencourt Referrals: Nahomy Bettencourt MD [Primary Care Provider] - Print Language: Turkmen
[2024-02-26 11:52] LABS: Absolute Lymphocyte Count 0.92 X10^3/uL (0.83-4.51); Absolute Neutrophil Count 8.3 X10^3/uL (2.0-7.7); Basophil# 0.05 X10^3/uL; Basophil% 0.5 % (0-1); Eosinophil# 0.04 X10^3/uL; Eosinophils% 0.4 % (0-5); Hematocrit 47.2 % (37-47); Hemoglobin 15.4 g/dL (12.0-15.0); Lymphocyte # 0.92 X10^3/ul (0.83-4.51); Lymphocyte % 9.2 % (19-41); Mean Corp Hgb Conc 32.6 g/dL (32-36); Mean Corpuscular Hgb 34.1 pg (27.0-32.0); Mean Corpuscular Volume 104.7 fL (81-99); Mean Platelet Vol. 9.7 fl (6.2-12.0); Monocyte# 0.54 X10^3/uL; Monocyte% 5.4 % (0-10); NRBC Flagged by Analyzer 0 % (0-5); Neutrophil # 8.33 X10^3/uL (2.7-7.7); Neutrophil % 83.8 % (47-70); Platelet Count 289 K/mm3 (150-450); RBC Distribution Width CV 12.7 % (11.6-14.6); RBC Distribution Width SD 49.8 fl (35.1-43.9); Red Blood Count 4.51 M/mm3 (4.2-5.4)
[2024-02-26] MEDS: 0.9% Normal Saline (1000mL) 1,000 ML 999 ML IV (11:59)
[2024-02-26 12:00] LABS: International Normalized Ratio 1.2; Prothrombin Time (Protime)PT. 15.4 SECONDS (11.7-14.9)
[2024-02-26] MEDS: Ondansetron 4 MG/2 ML Vial IV ×2 (12:00→16:59)
[2024-02-26 12:01] LABS: Partial Thromboplast Time 29.5 Seconds (24.1-36.2)
[2024-02-26 12:11] LABS: AST(SGOT) 21 U/L (15-37); Alanine Aminotransfer ALT/SGPT 27 U/L (13-56); Albumin, Serum 3.6 g/dL (3.2-5.0); Alkaline Phosphatase 163 U/L (45-117); Anion Gap 8 (5-15); BUN 19 mg/dL (7-18); BUN/Creat Ratio 26.3 RATIO (10-20); Chloride 100 mmol/L (98-107); Creatinine, Serum 0.72 mg/dL (0.55-1.02); EST Glomerular Filtration Rate 82 mL/min (>60); Est Glom Filt Rate - Afr Amer 99 mL/min (>60); Estimated Creatinine Clearance 54.51 ml/min; Globulin 3.6 g/dL (2.2-4.2); Glucose 121 mg/dL (74-106); Lipase 23 U/L (13-75); Magnesium 2.1 mg/dL (1.6-2.6); Potassium 3.8 mmol/L (3.5-5.1); Protein, Total 7.2 g/dL (6.4-8.2); Sodium Level 137 mmol/L (136-145); Troponin-I HS (w/2H Reflex) 9 pg/mL (3.0-54.0)
[2024-02-26 12:17] LABS: Base Excess 5 mmol/L (-2 to +2); Bicarbonate 29.4 mmol/L (22-26); Blood Gas Specimen Type ART; Mode Not entered; O2 Delivery Device Not entered; PO2 69 mmHG (75-100); SITE L Radial; SO2 94 % (95-99); Total Carbon Dioxide 31 mmol/L; pCO2 42.6 mmHg (35-45); pH 7.45 (7.35-7.45)
[2024-02-26 12:28] LABS: Lactic Acid 1.2 mmol/L (0.4-1.9)
[2024-02-26 12:30] LABS: Mucous, Urine 0 SEEN /hpf (<or=2+); Red Blood Cells-Urine 0 SEEN /hpf (0-5); Squamous Epithelial Cells - UA 0 SEEN /hpf (5-10)
[2024-02-26 12:33] LABS: Color, Urine Yellow (Yellow); Glucose, Dipstick Normal (Normal); Ketone-Dipstick 15 mg/dl (Negative); Leukocyte Esterase-Dipstick 100 /ul (Negative); Nitrite-Dipstick Positive (Negative); Occult Blood-Urine 250 /ul (Negative); Protein-Dipstick 30 mg/dl (Negative); Specific Gravity, Urine 1.025 (1.002-1.030); Urine Bilirubin Dipstick 1 mg/dL (Negative); Urine Clarity Cloudy (Clear); Urine Urobilinogen 4 mg/dl (Normal)
[2024-02-26 12:41] LABS: Bacteria 3+ /hpf (None Seen); White Blood Cells 10-25 SEEN /hpf (0-5)
[2024-02-26 12:56] LABS: Valproic Acid (Depakene) Level 40 ug/mL (50-100)
[2024-02-26] MEDS: Ceftriaxone 1 GM/50 ML BAG IV (13:11)
[2024-02-26 13:49] LABS: Reflex Troponin-HS? (from REC) Y
[2024-02-26 14:19] LABS: Troponin-I HS 10 pg/mL (3.0-54.0)
--- NOTE | 2024-02-26 14:49 | PCM.HP.STD ---
HPI - General General Date of Admission: 02/26/24 Date of Service: 02/26/24 Chief Complaint: AMS HPI Narrative MAGDY MIRAMONTES, is a 83y/o F hx afib on Eliquis, pseudoseizures and epilepsy, Alzheimer's presented to [facility] 02/26/24 d/t AMS and emesis. She has dementia and is a very poor historian. Reportedly nursing staff at care facility said she was slow to respond and seems altered and was found at care facility with vomit on her. In the ED patient vitally stable and workup revealing for possible UTI that was felt that this was the cause of her altered mental status. She was given IV fluids, antibiotics, hospitalist contacted for admission. Patient evaluated in the ED with at bedside, patient was hospitalized not long ago and was briefly at transitional [facility]. Per patient's she has been having vomiting and poor p.o. intake since that time of unclear etiology. He is unsure what happened today at the long-term, review of long-term records showed hand written note that said 'SOB, vomiting all over, shaking all over' but when ED physician contacted SNF this particular history was not elicited and it was primarily discussed that her mental status was not at baseline and she is having vomiting. Patient herself was able to say that she has some generalized abdominal pain has not been having bowel movements, does get nauseous and has vomiting at times, nausea slightly better right now, poor p.o. intake, does have suprapubic tenderness. Somewhat weak all over. Did not have any overt seizure activity and is aware of and none present to the emergency department. [facility] Medical History Mitral regurgitation Aortic valve stenosis with insufficiency Atrial fibrillation Preoperative cardiovascular examination Congestive heart failure (CHF) Dementia Parkinson's disease Rotator cuff tear arthropathy of left shoulder Tremor Cardiomyopathy Aortic stenosis Pericardial effusion Anxiety Depression Hypertension Diabetic neuropathy Acute systolic congestive heart failure Debility Pleural effusion due to CHF (congestive heart failure) Cellulitis of chest wall H/O cardiac murmur Depression Diabetic polyneuropathy Diabetes mellitus Chronic constipation Vitamin D deficiency Hypertension Inability to ambulate due to knee Debility Acute postoperative pain of right knee Wears glasses History of steroid therapy Diabetes Ambulates with cane Arthritis Back pain Injury of back Injury of head and neck Epilepsy Dietary restriction Former smoker Chronic cough Neuropathy History of pain when walking History of stress test History of echocardiogram Cardiology follow-up encounter History of atrial fibrillation Hx of vaginal delivery Hx of back injury Atherosclerotic heart disease of [place] coronary artery without angina pectoris Abnormal stress test History of left heart catheterization (LHC) (~06/02/22) Essential hypertension Other 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 (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 Neuropathy, diabetic Nephrolithiasis Hypertension DM2 (diabetes mellitus, type 2) Paroxysmal atrial fibrillation Home Medications ?Medication ?Instructions ?Recorded ?Last Taken ?Type duloxetine 30 mg capsule,delayed 30 mg PO QHS NEUROPATHY 09/22/20 07/21/23 History release cyanocobalamin (vitamin B-12) 1,000 mcg PO DAILY supplement 08/10/22 07/21/23 History 1,000 mcg tablet (Vitamin B-12) apixaban 2.5 mg tablet (Eliquis) 2.5 mg PO BID #180 tabs 01/04/23 07/21/23 Rx furosemide 40 mg tablet 40 mg PO DAILY Diuretic 01/04/23 07/21/23 History diltiazem HCl 120 mg 120 mg PO DINNER heart 05/23/23 07/21/23 History capsule,extended release 24 hr (Cartia XT) losartan 25 mg tablet 25 mg PO QHS #90 tabs 10/03/23 Unknown Rx metoprolol succinate 25 mg 25 mg PO DAILY HEART #90 tabs 10/28/23 Unknown Rx tablet,extended release 24 hr potassium chloride 20 mEq 20 meq PO DAILY supplement 01/12/24 Unknown History tablet,extended release(part/cryst) divalproex 250 mg tablet,delayed 250 mg PO BID #60 tabs 01/19/24 Unknown Rx release donepezil 10 mg tablet 10 mg PO QHS #90 tabs 01/19/24 Unknown Rx lamotrigine 200 mg tablet 200 mg PO BID #60 tabs 01/19/24 Unknown Rx vibegron 75 mg tablet (Gemtesa) 75 mg PO DAILY bladder muscle 02/04/24 Unknown History dysfunction acetaminophen 325 mg tablet 650 mg (2 x 325 mg) PO Q4H PRN PRN 02/07/24 Unknown Rx Fever, pain -02/22 #0 tabs spironolactone 25 mg tablet 37.5 mg (1.5 x 25 mg) PO DAILY 30 02/13/24 Unknown Rx days #90 tabs tamsulosin 0.4 mg capsule (Flomax) 0.4 mg PO DINNER #30 caps 02/13/24 Unknown Rx Allergy/AdvReac Type Severity Reaction Status Date / Time levetiracetam Allergy Other Verified 02/26/24 11:36 nickel Allergy Rash Verified 02/26/24 11:36 sulfamethoxazole (From Allergy Itching Verified 02/26/24 11:36 Bactrim) trimethoprim (From Bactrim) Allergy Itching Verified 02/26/24 11:36 codeine AdvReac Nausea Verified 02/26/24 11:36 milk AdvReac Nausea/Vom/ Verified 02/26/24 11:36 Diarrhea Family History Father No problems noted. Mother No problems noted. Surgical History History of left hip hemiarthroplasty History of total right knee replacement (TKR) S/P total knee arthroplasty Hx of fusion of cervical spine Hx of cystoscopy Amputated toe of right foot History of hysterectomy History of tonsillectomy Deviated septum History of appendectomy History of cholecystectomy History of neck surgery Social History household members: spouse Smoking Status: Former smoker alcohol intake: never substance use type: does not use caffeine: No what type of physical activity do you participate in: other details: physical therapy seatbelt use: always do you feel safe at home: Yes ROS ROS Narrative General: Denies fever/chills HENT: Denies headache, denies stuffy nose, denies sore throat EYES: Denies changes in vision Resp: Denies cough, denies shortness of breath Cardiac: Denies chest pain GI: Some nausea and vomiting, generalized abdominal pain, constipation : Suprapubic tenderness Extremity: Denies swelling MSK: Generalized weakness Neuro: Denies any numbness/tingling Heme: Denies any bleeding or bruising Skin: Denies rashes Psychiatric: No complaints voiced Vital Signs Vital Signs Vital Signs: 02/26/24 11:24 02/26/24 12:02 02/26/24 13:24 Temperature 97.6 F L Temperature Source Temporal Pulse Rate 70 68 Respiratory Rate 18 19 H Respiratory Effort Normal Respiratory Pattern Normal Blood Pressure 128/99 H 94/59 L Blood Pressure Mean 108 70 Pulse Ox 92 97 Oxygen Delivery Method Room Air Oxygen Flow Rate (L/min) 02/26/24 14:06 Temperature Temperature Source Pulse Rate 60 Respiratory Rate 17 Respiratory Effort Respiratory Pattern Blood Pressure 118/75 Blood Pressure Mean 89 Pulse Ox 99 Oxygen Delivery Method Nasal Cannula Oxygen Flow Rate (L/min) 2 Weight Weight: 75.5 kg Body Mass Index (BMI) 26.0 Physical Exam Narrative General: Awake, not aware she was but answers most questions appropriately HEENT: Atraumatic, normocephalic Eyes: Anicteric, normal conjunctiva, extraocular movements grossly intact Neck: Supple Respiratory: Clear to auscultation bilaterally, normal respiratory effort Cardiovascular: Regular rate and rhythm GI: Slightly firm, no rebound, guarding, rigidity, did have some suprapubic tenderness Extremities: No edema Musculoskeletal: Moving all extremities Neuro: No overt focal neurological deficits Skin: No rashes appreciated Psych: Cooperative Results Lab / Micro Data 02/26/24 11:41 02/26/24 11:41 Labs: Laboratory Results - last 24 hr 02/26/24 11:41: WBC 10.0, RBC 4.51, Hgb 15.4 H, Hct 47.2 H, MCV 104.7 H, MCH 34.1 H, MCHC 32.6, RDW Std Deviation 49.8 H, RDW Coeff of Robert 12.7, Plt Count 289, MPV 9.7, Immature Gran % (Auto) 0.700, Neut % (Auto) 83.8 H, Lymph % (Auto) 9.2 L, [place] % (Auto) 5.4, Eos % (Auto) 0.4, Baso % (Auto) 0.5, Absolute Neuts (auto) 8.3 H, Absolute Lymphs (auto) 0.92, Nucleated RBC % 0, PT 15.4 H, INR 1.2, APTT 29.5, Sodium 137, Potassium 3.8, Chloride 100, Carbon Dioxide 29.0, Anion Gap 8, BUN 19 H, Creatinine 0.72, Estim Creat Clear Calc 54.51, Est GFR (MDRD) Af Amer 99, Est GFR (MDRD) Non-Af 82, BUN/Creatinine Ratio 26.3 H, Glucose 121 H, Lactic Acid 1.2, Calcium 10.0, Magnesium 2.1, Total Bilirubin 0.60, AST 21, ALT 27, Alkaline Phosphatase 163 H, Troponin I High Sens 9, Total Protein 7.2, Albumin 3.6, Globulin 3.6, Albumin/Globulin Ratio 1.0, Lipase 23 02/26/24 11:50: Valproic Acid 40 L 02/26/24 12:25: Urine Color Yellow, Urine Clarity Cloudy, Urine pH 6.0, Ur Specific [place] 1.025, Urine Protein 30 H, Urine Glucose (UA) Normal, Urine Ketones 15 H, Urine Occult Blood 250 H, Urine Nitrite Positive H, Urine Bilirubin 1 H, Urine Urobilinogen 4 H, Ur Leukocyte Esterase 100 H, Urine RBC 0 SEEN, Urine WBC 10-25 SEEN, Ur Squamous Epith Cells 0 SEEN, Urine Bacteria 3+, Urine Mucus 0 SEEN 02/26/24 13:54: Troponin I High Sens 10 ABG Data ABG results: ABG 02/26/24 12:14 Specimen Type ART Sample Site L Radial pH 7.45 Bicarbonate Actual 29.4 H Total CO2 31 Base Excess 5 H O2 Saturation 94 L O2 % 21.0 ABG pCO2 42.6 ABG pO2 69 L O2 Delivery Device Not entered Vent Mode Not entered Imaging Radiology Impression Brain CT 02/26/24 11:39 IMPRESSION: Chronic involutional changes of the brain. Electronically Signed: Lamont Ruelas MD at 13:41 EDT Reading Location ID and State: [employer] / [employer] Tel , Service support , Abdomen/Pelvis CT 02/26/24 11:40 IMPRESSION: Possible fecal impaction. Sigmoid diverticulosis without diverticulitis. Electronically Signed: Lamont Ruelas MD at 13:56 EDT Reading Location ID and State: [id number] / [employer] Tel , Service support , Chest X-Ray 02/26/24 11:41 IMPRESSION: No active disease. Cardiomegaly. Electronically Signed: Lamont Ruelas MD at 12:56 EDT Reading Location ID and State: [id number] / [employer] Tel , Service support , Assessment & Plan Assessment/Plan (1) AMS (altered mental status): PLAN: Plan # Altered mental status suspect 2/2 acute metabolic encephalopathy 2/2 UTI -Patient with UA suggestive of UTI -Urine culture -Empiric antibiotics awaiting culture -Will also check ammonia given patient is on Depakote in the event this is contributing -Patient had some shaking all over but does not sound that this was actual seizure activity, no seizure activity here, lactic acid within normal limits, will place on seizure precautions for now while monitoring closely and obtain EEG. Continue Depakote Lamictal #N/V/Constipation -Patient with large amount of stool in the rectum on CT patient reports constipation with some generalized abdominal discomfort, nausea, and lack of bowel movements -Given nausea suspect oral bowel regimen would not be particularly effective -Will start with clear liquid diet, advance as tolerated -Also gently hydrate with IVF-holding home Lasix while hydrating with IVF given poor p.o. -Will place order for enema, discussed this with patient and -Recent TSH within normal limits #afib -Continue Cardizem, metoprolol, Eliquis # History of both pseudoseizures and epilepsy -Follows with neurology on outpatient basis -Seems to have history of epilepsy but has also had pseudoseizures -Patient has some generalized shaking at times but does not sound that she has had actual seizure activity -Will get EEG however and placed on seizure precautions -Continue Depakote and Lamictal -Can consider neuroconsult if needed and if patient does not improve with antibiotics/treatment of underlying UTI #Hx alzheimers -Continue donepezil # Neuropathy -Continue duloxetine #DVT ppx: Patient on Eliquis Porsche Ni MD Charges/Coding Visit Charges Inpatient E&M: 39790 Init Hosp L2
[2024-02-26] MEDS: 0.9% Normal Saline (1000mL) 1,000 ML 75 ML IV (16:42)
[2024-02-26] MEDS: dilTIAZem CD 120 MG Capsule PO (16:55)
[2024-02-26] MEDS: Lactulose 20 GM/30 ML UDC 200 GM RC (17:09)
[2024-02-26 17:47] LABS: Ammonia < 10.0 umol/L (11-32)
[2024-02-26] MEDS: Divalproex Sodium 250 MG Tablet PO (21:03)
[2024-02-26] MEDS: lamoTRIgine 100 MG Tablet 200 MG PO (21:03)
[2024-02-26] MEDS: APIXABAN 2.5 MG TABLET (WCH) PO (21:03)
[2024-02-26] MEDS: Donepezil HCl 10 MG Tablet PO (21:04)
[2024-02-26] MEDS: DULoxetine Hcl 30 MG Capsule PO (21:04)
[2024-02-26] MEDS: Losartan Potassium 25 MG Tablet PO (21:10)
[2024-02-27 03:10] VITALS: BP 136/73; PULSE 70; RESP 18; TEMP 36.2; O2SAT 99
[2024-02-27 06:47] LABS: Absolute Lymphocyte Count 1.32 X10^3/uL (0.83-4.51); Absolute Neutrophil Count 6.3 X10^3/uL (2.0-7.7); Basophil# 0.05 X10^3/uL; Basophil% 0.6 % (0-1); Eosinophil# 0.09 X10^3/uL; Eosinophils% 1.1 % (0-5); Hematocrit 42.7 % (37-47); Hemoglobin 13.3 g/dL (12.0-15.0); Lymphocyte # 1.32 X10^3/ul (0.83-4.51); Lymphocyte % 15.9 % (19-41); Mean Corp Hgb Conc 31.1 g/dL (32-36); Mean Corpuscular Hgb 33.5 pg (27.0-32.0); Mean Corpuscular Volume 107.6 fL (81-99); Mean Platelet Vol. 9.9 fl (6.2-12.0); Monocyte# 0.49 X10^3/uL; Monocyte% 5.9 % (0-10); NRBC Flagged by Analyzer 0 % (0-5); Neutrophil % 75.9 % (47-70); Platelet Count 239 K/mm3 (150-450); RBC Distribution Width CV 12.9 % (11.6-14.6); RBC Distribution Width SD 52.1 fl (35.1-43.9); Red Blood Count 3.97 M/mm3 (4.2-5.4); White Blood Count 8.3 K/mm3 (4.4-11.0)
[2024-02-27 08:06] LABS: AST(SGOT) 16 U/L (15-37); Alanine Aminotransfer ALT/SGPT 21 U/L (13-56); Albumin, Serum 2.9 g/dL (3.2-5.0); Alkaline Phosphatase 136 U/L (45-117); Anion Gap 7 (5-15); BUN 16 mg/dL (7-18); BUN/Creat Ratio 26.9 RATIO (10-20); Calcium,Total 9.3 mg/dL (8.5-10.1); Chloride 106 mmol/L (98-107); Creatinine, Serum 0.59 mg/dL (0.55-1.02); EST Glomerular Filtration Rate 102 mL/min (>60); Est Glom Filt Rate - Afr Amer 124 mL/min (>60); Estimated Creatinine Clearance 51.86 ml/min; Globulin 2.8 g/dL (2.2-4.2); Glucose 80 mg/dL (74-106); Magnesium 2.2 mg/dL (1.6-2.6); Potassium 3.9 mmol/L (3.5-5.1); Protein, Total 5.7 g/dL (6.4-8.2); Sodium Level 140 mmol/L (136-145)
[2024-02-27 08:07] VITALS: BP 126/74; PULSE 67; RESP 16; TEMP 36.4; O2SAT 95
[2024-02-27] MEDS: Ceftriaxone 1 GM/50 ML BAG IV (09:55)
[2024-02-27] MEDS: 0.9% Saline Lock 10 ML Syringe IV (09:58)
--- NOTE | 2024-02-27 10:15 | CASEMGMT ---
SW attempted to call patient's to confirm the plan is to return to [facility]. There was no answer. WILMAN will try again. Lea Delgado PHLEBOTOMY COORDINATOR [place]
[2024-02-27 14:14] VITALS: BP 104/62; PULSE 70; RESP 16; TEMP 36; O2SAT 93
[2024-02-27] MEDS: APIXABAN 2.5 MG TABLET (WCH) PO (17:29)
[2024-02-27] MEDS: Divalproex Sodium 250 MG Tablet PO (17:29)
[2024-02-27] MEDS: lamoTRIgine 100 MG Tablet 200 MG PO (17:29)
[2024-02-27] MEDS: dilTIAZem CD 120 MG Capsule PO (17:29)
--- NOTE | 2024-02-27 18:35 | PN.HOSP_ITS ---
Reason for Visit Reason for Visit: Diagnoses Altered mental status, unspecified (02/26/24) Subjective Subjective Patient was seen and nonverbal to this examiner, I talked with her who was in the room at the time my examination. Patient's urine culture grew out presumptive E. coli, she remains on IV antibiotics at this time. Patient's ask if there is a possibility she could go to TCU instead of going back to the [facility] for rehab services-unfortunately the patient's insurance does not cover TCU and I let the patient's know this. Patient's intake overall has been very poor today. Objective Data Objective Data Vital Signs: Vital Signs Temp Pulse Resp BP Pulse Ox O2 Del Method O2 Flow Rate 96.8 F L 70 16 104/62 93 Room Air 2 02/27/24 14:14 02/27/24 14:14 02/27/24 14:14 02/27/24 14:14 02/27/24 14:14 02/27/24 14:14 02/27/24 03:10 Oxygen Flow Rate (L/min) 2 Oxygen Delivery Method Room Air Weight: 75.07 kg Body Mass Index (BMI) 25.1 Intake & Output: Intake and Output for Last 24 Hours 02/25/24 02/26/24 02/27/24 23:59 23:59 23:59 Intake Total 1100 / 1100 908.75 / 908.75 Output Total 200 / 200 Balance 1100 / 1100 708.75 / 708.75 Lab / Micro Data 02/27/24 06:26 02/27/24 06:26 Labs: Laboratory Results - last 24 hr 02/27/24 06:26: WBC 8.3, RBC 3.97 L, Hgb 13.3, Hct 42.7, MCV 107.6 H, MCH 33.5 H , MCHC 31.1 L, RDW Std Deviation 52.1 H, RDW Coeff of Robert 12.9, Plt Count 239, MPV 9.9, Immature Gran % (Auto) 0.600, Neut % (Auto) 75.9 H, Lymph % (Auto) 15.9 L, [place] % (Auto) 5.9, Eos % (Auto) 1.1, Baso % (Auto) 0.6, Absolute Neuts (auto) 6.3, Absolute Lymphs (auto) 1.32, Nucleated RBC % 0, Sodium 140, Potassium 3.9, Chloride 106, Carbon Dioxide 27.0, Anion Gap 7, BUN 16, Creatinine 0.59, Estim Creat Clear Calc 51.86, Est GFR (MDRD) Af Amer 124, Est GFR (MDRD) Non-Af 102, B UN/Creatinine Ratio 26.9 H, Glucose 80, Calcium 9.3, Magnesium 2.2, Total Bilirubin 0.40, AST 16, ALT 21, Alkaline Phosphatase 136 H, Total Protein 5.7 L, Albumin 2.9 L, Globulin 2.8, Albumin/Globulin Ratio 1.0 Micro: Microbiology 02/26/24 12:25 Urine, Catheterized Urine Culture - Preliminary Presumptive E. coli Physical Exam Const no apparent distress Constitutional Narrative: Patient is lethargic, she does not speak to this examiner General Appearance: well developed HEENT normocephalic, head/scalp atraumatic and moist oral mucous membranes Eyes PERRL, EOMs intact bilaterally and conjunctivae normal Neck supple, no JVD, thyroid normal and no carotid bruits General: trachea midline Resp normal respiratory effort, no retractions, no use of accessory muscles and clear to auscultation bilaterally Auscultation: Negative for rales, rhonchi or wheezes Cardio regular rate, regular rhythm, S1 normal heart sound, S2 normal heart sound, no murmurs, no rub and no gallops GI normal to inspection, nondistended, normoactive bowel sounds, soft to palpation, non-tender and non-distended Extremity no clubbing, cyanosis or edema Skin no rashes or lesions noted General Skin Exam: no breakdown Neuro CN's II-XII intact bilaterally, moves all extremities, no focal motor deficits and no sensory deficits noted Neuro Narrative: Patient is lethargic, she does not follow commands and she does not speak Psych Psych Narrative: Patient appears lethargic, she does not follow commands and does not speak Assessment & Plan Assessment/Plan (1) AMS (altered mental status): PLAN: Plan 1. Metabolic encephalopathy secondary to acute urinary tract infection-continue present IV antibiotics, patient is a DNR CC arrest no intubation #2 acute urinary tract infection-E. coli-continue present antibiotic coverage, await for final culture results #3 dementia-complicates care, management, recovery, and prognosis #4 seizure disorder-patient will remain on her present medications Total clinical time spent by myself addressing the patient's medical issues, reviewing all of her data, and collaborating with patient's care team: 35 minutes Charges/Coding Visit Charges Inpatient E&M: 57404 Subs Hosp L2
[2024-02-27 20:20] VITALS: BP 138/86; PULSE 78; RESP 18; TEMP 35.8; O2SAT 93
[2024-02-27] MEDS: proMETHazine 25 MG/ML Syringe IM (20:47)
[2024-02-27] MEDS: 0.9% Normal Saline (1000mL) 1,000 ML 75 ML IV (20:47)
[2024-02-28] VITALS (7 sets, daily range): BP systolic 115–132; BP diastolic 59–78; PULSE 66–89; RESP 16–18; TEMP 35.9–36.6; O2SAT 93–96
[2024-02-28] MEDS: Haloperidol Lactate 5 MG/ML Vial 2 MG IV (01:22)
[2024-02-28] MEDS: lamoTRIgine 100 MG Tablet 200 MG PO ×2 (10:06→22:35)
[2024-02-28] MEDS: APIXABAN 2.5 MG TABLET (WCH) PO ×2 (10:07→22:35)
[2024-02-28] MEDS: Metoprolol(XL)Succ 25 MG Tablet PO (10:07)
[2024-02-28] MEDS: Divalproex Sodium 250 MG Tablet PO ×2 (10:07→22:35)
[2024-02-28] MEDS: 0.9% Normal Saline (1000mL) 1,000 ML 75 ML IV (10:08)
[2024-02-28] MEDS: Ceftriaxone 1 GM/50 ML BAG IV (10:09)
--- NOTE | 2024-02-28 10:22 | CASEMGMT ---
WILMAN called patient's regarding discharge plan. Physician notified WILMAN that patient's was not happy with [facility]. There was no answer so WILMAN left a voice mail. Lea AMATO
--- NOTE | 2024-02-28 10:40 | CASEMGMT ---
WILMAN received a call from patient's , Kit. Kit confirmed he is not happy with [facility]. Kit asked about TCU. WILMAN let him know TCU is not taking patient's insurance. Kit asked about [facility]. WILMAN let him know a referral can be sent, but last time they did decline patient. WILMAN also told patient WILMAN will prepare a list of SNF's in the event [facility] cannot take patient. WILMAN Espinoza will work on sending a referral to [facility]. Lea Delgado SHOP DIRECTOR [place]
--- NOTE | 2024-02-28 10:52 | CASEMGMT ---
Social Work Refferal sent to [facility] at the request of patients . Olga Mcnair, GENERAL LABOR FORKLIFT OPERATOR, [employer]
--- NOTE | 2024-02-28 14:42 | CASEMGMT ---
[facility] accepted patient. WILMAN notified patient's Kit. Kit then told he will keep patient at [facility]. WILMAN notified [facility]. WILMAN then sent updates to [facility]. Lea AMATO
[2024-02-28] MEDS: dilTIAZem CD 120 MG Capsule PO (16:23)
--- NOTE | 2024-02-28 18:05 | PCM.PN.HOSP ---
Reason for Visit Reason for Visit: Diagnoses Altered mental status, unspecified (02/26/24) Subjective Subjective Patient was seen and examined today. She is nonverbal with this examiner. Urine cultures positive for E. coli which is pansensitive. Objective Data Objective Data Vital Signs: Vital Signs Temp Pulse Resp BP Pulse Ox O2 Del Method O2 Flow Rate 96.7 F L 87 16 115/65 95 Room Air 2 02/28/24 14:00 02/28/24 14:00 02/28/24 14:00 02/28/24 14:00 02/28/24 14:00 02/28/24 14:00 02/27/24 03:10 Oxygen Flow Rate (L/min) 2 Oxygen Delivery Method Room Air Weight: 75.07 kg Body Mass Index (BMI) 25.1 Intake & Output: Intake and Output for Last 24 Hours 02/26/24 02/27/24 02/28/24 23:59 23:59 23:59 Intake Total 1100 / 1100 908.75 / 908.75 1050 / 1050 Output Total 200 / 200 Balance 1100 / 1100 708.75 / 708.75 1050 / 1050 Lab / Micro Data 02/27/24 06:26 02/27/24 06:26 Micro: Microbiology 02/26/24 12:25 Urine, Catheterized Urine Culture - Final Presumptive E. coli Physical Exam Narrative Felician[place] apparent distress Constitutional Narrative: Patient is alert, she does not speak to this examiner General Appearance: well developed HEENT normocephalic, head/scalp atraumatic and moist oral mucous membranes Eyes PERRL, EOMs intact bilaterally and conjunctivae normal Neck supple, no JVD, thyroid normal and no carotid bruits General: trachea midline Resp normal respiratory effort, no retractions, no use of accessory muscles and clear to auscultation bilaterally Auscultation: Negative for rales, rhonchi or wheezes Cardio irregular rate, irregular rhythm, S1 normal heart sound, S2 normal heart sound, 2/6 systolic murmur is noted at the apex and left sternal border, no rub and no gallops GI normal to inspection, nondistended, normoactive bowel sounds, soft to palpation, non-tender and non-distended Extremity no clubbing, cyanosis or edema Skin no rashes or lesions noted General Skin Exam: no breakdown Neuro CN's II-XII intact bilaterally, moves all extremities, no focal motor deficits and no sensory deficits noted Neuro Narrative: Patient is alert, she does not follow commands and she does not speak Psych Psych Narrative: Patient appears alert, she does not follow commands and does not speak Assessment & Plan Assessment/Plan (1) Cystitis: (2) AMS (altered mental status): PLAN: Plan 1. Metabolic encephalopathy secondary to acute urinary tract infection-continue present IV antibiotics, patient is a DNR CC arrest no intubation #2 acute urinary tract infection-I will change the patient from IV antibiotics to oral antibiotics #3 dementia-complicates care, management, recovery, and prognosis #4 seizure disorder-patient will remain on her present medications #5 permanent atrial fibrillation-patient remains on rate control medication and anticoagulant Total clinical time spent by myself addressing the patient's medical issues, reviewing all of her data, and collaborating with patient's care team: 35 minutes Charges/Coding Visit Charges Inpatient E&M: 31439 Subs Hosp L2
[2024-02-28] MEDS: Ensure Clear 120 ML Liquid PO (22:24)
[2024-02-28] MEDS: Donepezil HCl 10 MG Tablet PO (22:35)
[2024-02-28] MEDS: Losartan Potassium 25 MG Tablet PO (22:35)
[2024-02-28] MEDS: DULoxetine Hcl 30 MG Capsule PO (22:35)
[2024-02-29] VITALS (9 sets, daily range): BP systolic 114–140; BP diastolic 57–90; PULSE 62–95; RESP 16–20; TEMP 36.1–36.5; O2SAT 94–98
--- NOTE | 2024-02-29 00:02 | PCM.HOSP.N ---
Hospitalist Note Concern for possible aspiration, will obtain CXR PA and Lateral this AM, also given concerns will hold oral depakote and transition to IV version, unable to transition lamictal. EEG 02/28/24 without seizure activity. Ongoing nausea and emesis, notable work-up prior, concern that it may have a behavioral component. Will trial on low dose scheduled reglan.
--- NOTE | 2024-02-29 00:06 | NURSING ---
pt found to be holding onto the side rails, sweating, beads of sweat on her arms/head, vss, lungs moist, vomitting and coughing.
[2024-02-29] MEDS: Metoclopramide 10 MG/2 ML Vial 2.5 MG IV ×4 (00:38→23:19)
[2024-02-29] MEDS: Valproate Sodium 250 MG in Dextrose 5%-Water (50mL Bag) 50 ML 50 MG IV ×2 (00:38→10:48)
[2024-02-29 01:01] LABS: Bedside Glucose 96 mg/dL (74-106)
[2024-02-29 04:42] LABS: Absolute Lymphocyte Count 1.25 X10^3/uL (0.83-4.51); Absolute Neutrophil Count 7.5 X10^3/uL (2.0-7.7); Basophil# 0.07 X10^3/uL; Basophil% 0.7 % (0-1); Eosinophils% 1.1 % (0-5); Hematocrit 42.8 % (37-47); Hemoglobin 13.9 g/dL (12.0-15.0); Lymphocyte # 1.25 X10^3/ul (0.83-4.51); Lymphocyte % 13.2 % (19-41); Mean Corp Hgb Conc 32.5 g/dL (32-36); Mean Corpuscular Hgb 34.2 pg (27.0-32.0); Mean Corpuscular Volume 105.4 fL (81-99); Mean Platelet Vol. 9.7 fl (6.2-12.0); Monocyte# 0.47 X10^3/uL; NRBC Flagged by Analyzer 0 % (0-5); Neutrophil # 7.46 X10^3/uL (2.7-7.7); Neutrophil % 78.8 % (47-70); Platelet Count 245 K/mm3 (150-450); RBC Distribution Width CV 12.9 % (11.6-14.6); RBC Distribution Width SD 50.1 fl (35.1-43.9); Red Blood Count 4.06 M/mm3 (4.2-5.4); White Blood Count 9.5 K/mm3 (4.4-11.0)
[2024-02-29 05:17] LABS: AST(SGOT) 22 U/L (15-37); Alanine Aminotransfer ALT/SGPT 24 U/L (13-56); Albumin, Serum 3.1 g/dL (3.2-5.0); Alkaline Phosphatase 146 U/L (45-117); Anion Gap 5 (5-15); BUN 13 mg/dL (7-18); BUN/Creat Ratio 18.1 RATIO (10-20); Calcium,Total 9.5 mg/dL (8.5-10.1); Chloride 107 mmol/L (98-107); Creatinine, Serum 0.72 mg/dL (0.55-1.02); EST Glomerular Filtration Rate 82 mL/min (>60); Est Glom Filt Rate - Afr Amer 99 mL/min (>60); Estimated Creatinine Clearance 51.86 ml/min; Globulin 3.1 g/dL (2.2-4.2); Glucose 97 mg/dL (74-106); Potassium 3.4 mmol/L (3.5-5.1); Protein, Total 6.2 g/dL (6.4-8.2); Sodium Level 140 mmol/L (136-145)
--- NOTE | 2024-02-29 06:30 | PCM.HOSP.N ---
Hospitalist Note Patient with intermittent PVCs, occasional short runs VT, mag obtained, normal, K mildly decreased 3.4 with IV supplementation administered.
[2024-02-29] MEDS: Potassium Chloride 10mEq/100mL 10 MEQ/100 ML IV.SOLN. 100 MEQ IV BOLUS ×3 (07:18→09:29)
[2024-02-29] MEDS: Ceftriaxone 1 GM/50 ML BAG IV (09:32)
[2024-02-29] MEDS: APIXABAN 2.5 MG TABLET (WCH) PO (10:49)
[2024-02-29] MEDS: lamoTRIgine 100 MG Tablet 200 MG PO (10:50)
[2024-02-29] MEDS: Metoprolol(XL)Succ 25 MG Tablet PO (10:50)
--- NOTE | 2024-02-29 12:45 | CON.PCM.GI_ITS ---
HPI Consult Data Date of Consult: 02/29/24 HPI Narrative Reason for Consultation: Nausea vomiting HPI Narrative: MAGDY MIRAMONTES, is a 83 F who presented to the ED with seizure-like activity. She was eventually seen by telepsych and diagnosed with pseudoseizures. She has a past medical history of Parkinson's disease, Alzheimer's disease w/ associated underlying dementia with unclear behavioral disturbance she is awaiting placement for Geripsych facility placement given significant underlying psychiatric issues, dementia and pseudoseizures with risk to self however given concern for NSVT on monitors decision to admit and evaluate further prior to crisis reevaluation for psychiatric geriatric placement. She has been having episodes of nausea and vomiting which undigested food. Initially she was thought to possibly have side effects only antiseizure medicines. Those meds have been stopped and she still has problems with nausea and vomiting. All images thus far have not shown the etiology of her nausea vomiting. CT of the brain with chronic involutional changes, CT cervical spine with multilevel degenerative changes, chest x-ray with cardiomegaly, stable increased linear markings at the left lung base suggestive of scarring, plain film of the right hip and pelvis with osteoarthritic changes of the right hip joint with no fracture or dislocation demonstrated. Also CT scan abdomen pelvis did not show any acute abnormalities. [facility] Medical History Mitral regurgitation Aortic valve stenosis with insufficiency Atrial fibrillation Preoperative cardiovascular examination Congestive heart failure (CHF) Dementia Parkinson's disease Rotator cuff tear arthropathy of left shoulder Tremor Cardiomyopathy Aortic stenosis Pericardial effusion Anxiety Depression Hypertension Diabetic neuropathy Acute systolic congestive heart failure Debility Pleural effusion due to CHF (congestive heart failure) Cellulitis of chest wall H/O cardiac murmur Depression Diabetic polyneuropathy Diabetes mellitus Chronic constipation Vitamin D deficiency Hypertension Inability to ambulate due to knee Debility Acute postoperative pain of right knee Wears glasses History of steroid therapy Diabetes Ambulates with cane Arthritis Back pain Injury of back Injury of head and neck Epilepsy Dietary restriction Former smoker Chronic cough Neuropathy History of pain when walking History of stress test History of echocardiogram Cardiology follow-up encounter History of atrial fibrillation Hx of vaginal delivery Hx of back injury Atherosclerotic heart disease of [place] coronary artery without angina pectoris Abnormal stress test History of left heart catheterization (LHC) (~06/02/22) Essential hypertension Other long chain quiller tender (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 Neuropathy, diabetic Nephrolithiasis Hypertension DM2 (diabetes mellitus, type 2) Paroxysmal atrial fibrillation Home Medications ?Medication ?Instructions ?Recorded ?Last Taken ?Type duloxetine 30 mg capsule,delayed 30 mg PO QHS NEUROPATHY 09/22/20 07/21/23 History release cyanocobalamin (vitamin B-12) 1,000 mcg PO DAILY supplement 08/10/22 07/21/23 History 1,000 mcg tablet (Vitamin B-12) apixaban 2.5 mg tablet (Eliquis) 2.5 mg PO BID #180 tabs 01/04/23 07/21/23 Rx furosemide 40 mg tablet 40 mg PO DAILY Diuretic 01/04/23 07/21/23 History diltiazem HCl 120 mg 120 mg PO DINNER heart 05/23/23 07/21/23 History capsule,extended release 24 hr (Cartia XT) losartan 25 mg tablet 25 mg PO QHS #90 tabs 10/03/23 Unknown Rx metoprolol succinate 25 mg 25 mg PO DAILY HEART #90 tabs 10/28/23 Unknown Rx tablet,extended release 24 hr potassium chloride 20 mEq 20 meq PO DAILY supplement 01/12/24 Unknown History tablet,extended release(part/cryst) divalproex 250 mg tablet,delayed 250 mg PO BID #60 tabs 01/19/24 Unknown Rx release donepezil 10 mg tablet 10 mg PO QHS #90 tabs 01/19/24 Unknown Rx lamotrigine 200 mg tablet 200 mg PO BID #60 tabs 01/19/24 Unknown Rx acetaminophen 325 mg tablet 650 mg (2 x 325 mg) PO Q4H PRN PRN 02/07/24 Unknown Rx Fever, pain -02/22 #0 tabs tamsulosin 0.4 mg capsule (Flomax) 0.4 mg PO DINNER bladder #30 caps 02/13/24 Unknown Rx ondansetron HCl 4 mg tablet 4 mg PO Q6H PRN nausea and vomiting 02/26/24 Unknown History Allergy/AdvReac Type Severity Reaction Status Date / Time levetiracetam Allergy Other Verified 02/26/24 11:36 nickel Allergy Rash Verified 02/26/24 11:36 sulfamethoxazole (From Allergy Itching Verified 02/26/24 11:36 Bactrim) trimethoprim (From Bactrim) Allergy Itching Verified 02/26/24 11:36 codeine AdvReac Nausea Verified 02/26/24 11:36 milk AdvReac Nausea/Vom/ Verified 02/26/24 11:36 Diarrhea Family History Father No problems noted. Mother No problems noted. Surgical History History of left hip hemiarthroplasty History of total right knee replacement (TKR) S/P total knee arthroplasty Hx of fusion of cervical spine Hx of cystoscopy Amputated toe of right foot History of hysterectomy History of tonsillectomy Deviated septum History of appendectomy History of cholecystectomy History of neck surgery Social History household members: spouse Smoking Status: Former smoker alcohol intake: never substance use type: does not use caffeine: No what type of physical activity do you participate in: other details: physical therapy seatbelt use: always do you feel safe at home: Yes ROS ROS Narrative General: Denies fever/chills HENT: Denies headache, denies stuffy nose, denies sore throat EYES: Denies changes in vision Resp: Denies cough, denies shortness of breath Cardiac: Denies chest pain GI: Some nausea and vomiting, generalized abdominal pain, constipation : Suprapubic tenderness Extremity: Denies swelling MSK: Generalized weakness Neuro: Denies any numbness/tingling Heme: Denies any bleeding or bruising Skin: Denies rashes Psychiatric: No complaints voiced Physical Exam Narrative In no apparent distress Constitutional Narrative: Patient is alert, she does not speak to this examiner, patient does not her head occasionally for yes General Appearance: well developed HEENT normocephalic, head/scalp atraumatic and moist oral mucous membranes Eyes PERRL, EOMs intact bilaterally and conjunctivae normal Neck supple, no JVD, thyroid normal and no carotid bruits General: trachea midline Resp normal respiratory effort, no retractions, no use of accessory muscles and clear to auscultation bilaterally Auscultation: Negative for rales, rhonchi or wheezes Cardio irregular rate, irregular rhythm, S1 normal heart sound, S2 normal heart sound, 2/6 systolic murmur is noted at the apex and left sternal border, no rub and no gallops GI normal to inspection, nondistended, normoactive bowel sounds, soft to palpation, non-tender and non-distended Extremity no clubbing, cyanosis or edema Skin no rashes or lesions noted General Skin Exam: no breakdown Neuro CN's II-XII intact bilaterally, moves all extremities, no focal motor deficits and no sensory deficits noted Neuro Narrative: Patient is alert, she does not follow commands and she does not speak Psych Psych Narrative: Patient appears alert, she does not follow commands and does not speak Lab / Micro Data 02/29/24 04:30 02/29/24 04:30 Assessment & Plan Assessment/Plan (1) Vomiting: PLAN: 83-year-old with Parkinson's, Alzheimer's type dementia and multiple other psychiatric issues with persistent vomiting. Nursing reported nonbilious vomiting, inability to tolerate oral intake, without abdominal pain. Her nausea and vomiting had been ongoing for about a week.? As per he wants her to have a feeding tube so she can maintain nutrition and get her medicines. He was explained alternatives, risk, benefits include not withstanding bleeding, infection, sepsis, perforation, need for emergent urgent . She will have an ASA of 3. (2) Atrial fibrillation: QUALIFIERS: Atrial fibrillation type: unspecified Qualified Code(s): I48.91 - Unspecified atrial fibrillation (3) Nonepileptic episode: Charges/Coding Visit Charges Inpatient E&M: 94214 Init Hosp L3
[2024-02-29] MEDS: 0.9% Saline Lock 10 ML Syringe IV ×2 (14:15→23:19)
--- NOTE | 2024-02-29 14:19 | PCM.PN.HOSP ---
Reason for Visit Reason for Visit: Diagnoses Cystitis, unspecified without hematuria (02/26/24) Altered mental status, unspecified (02/26/24) Subjective Subjective Patient was seen and examined today, the night hospitalist last night stated the patient had an episode which could have been aspiration however the patient is on room air and her pulse ox is well above 90% and she does not appear to be in any respiratory distress, I canceled her chest x-ray which was ordered for this morning. Speech therapy saw the patient, they gave her some apple juice but she vomited afterwards. They feel she is safe to eat, she spoke to the respiratory therapist briefly during their visit today. I talked with the patient's [id number] by phone today, she gave me a contact number for the which is a cell phone, tried earlier today to call him on his landline but there was no answer. We are still awaiting insurance approval for the patient to go to a detention facility. I talked briefly with gastroenterology about her care today by phone, they recommended stopping her Depakote if possible to see if this would improve her vomiting. Objective Data Objective Data Vital Signs: Vital Signs Temp Pulse Resp BP Pulse Ox O2 Del Method O2 Flow Rate 97.3 F L 76 18 125/57 H 94 Room Air 2 02/29/24 12:00 02/29/24 12:00 02/29/24 12:00 02/29/24 12:00 02/29/24 12:00 02/29/24 12:00 02/29/24 06:38 Oxygen Flow Rate (L/min) 2 Oxygen Delivery Method Room Air Weight: 75.07 kg Body Mass Index (BMI) 25.1 Intake & Output: Intake and Output for Last 24 Hours 02/27/24 02/28/24 02/29/24 23:59 23:59 23:59 Intake Total 908.75 / 908.75 1050 / 1250 1655.0 / 1655.0 Output Total 200 / 200 0 / 0 200 / 200 Balance 708.75 / 708.75 1050 / 1250 1455.0 / 1455.0 Lab / Micro Data 02/29/24 04:30 02/29/24 04:30 Labs: Laboratory Results - last 24 hr 02/28/24 23:58: POC Glucose 96 02/29/24 04:30: WBC 9.5, RBC 4.06 L, Hgb 13.9, Hct 42.8, MCV 105.4 H, MCH 34.2 H, MCHC 32.5, RDW Std Deviation 50.1 H, RDW Coeff of Robert 12.9, Plt Count 245, MPV 9.7, Immature Gran % (Auto) 1.200 H, Neut % (Auto) 78.8 H, Lymph % (Auto) 13.2 L, [place] % (Auto) 5.0, Eos % (Auto) 1.1, Baso % (Auto) 0.7, Absolute Neuts (auto) 7.5, Absolute Lymphs (auto) 1.25, Nucleated RBC % 0, Sodium 140, Potassium 3.4 L, Chloride 107, Carbon Dioxide 28.0, Anion Gap 5, BUN 13, Creatinine 0.72, Estim Creat Clear Calc 51.86, Est GFR (MDRD) Af Amer 99, Est GFR (MDRD) Non-Af 82, BUN/Creatinine Ratio 18.1, Glucose 97, Calcium 9.5, Magnesium 2.0, Total Bilirubin 0.50, AST 22, ALT 24, Alkaline Phosphatase 146 H, Total Protein 6.2 L, Albumin 3.1 L, Globulin 3.1, Albumin/Globulin Ratio 1.0 Micro: Microbiology 02/26/24 12:25 Urine, Catheterized Urine Culture - Final Presumptive E. coli Physical Exam Narrative In no apparent distress Constitutional Narrative: Patient is alert, she does not speak to this examiner, patient does not her head occasionally for yes General Appearance: well developed HEENT normocephalic, head/scalp atraumatic and moist oral mucous membranes Eyes PERRL, EOMs intact bilaterally and conjunctivae normal Neck supple, no JVD, thyroid normal and no carotid bruits General: trachea midline Resp normal respiratory effort, no retractions, no use of accessory muscles and clear to auscultation bilaterally Auscultation: Negative for rales, rhonchi or wheezes Cardio irregular rate, irregular rhythm, S1 normal heart sound, S2 normal heart sound, 2/6 systolic murmur is noted at the apex and left sternal border, no rub and no gallops GI normal to inspection, nondistended, normoactive bowel sounds, soft to palpation, non-tender and non-distended Extremity no clubbing, cyanosis or edema Skin no rashes or lesions noted General Skin Exam: no breakdown Neuro CN's II-XII intact bilaterally, moves all extremities, no focal motor deficits and no sensory deficits noted Neuro Narrative: Patient is alert, she does not follow commands and she does not speak Psych Psych Narrative: Patient appears alert, she does not follow commands and does not speak Assessment & Plan Assessment/Plan (1) Vomiting: (2) Cystitis: (3) AMS (altered mental status): PLAN: Plan 1. Metabolic encephalopathy secondary to acute urinary tract infection-continue present IV antibiotics, patient is a DNR CC arrest no intubation #2 acute urinary tract infection-I will change the patient from IV antibiotics to oral antibiotics #3 dementia-complicates care, management, recovery, and prognosis #4 seizure disorder-patient will remain on her present medications #5 permanent atrial fibrillation-patient remains on rate control medication and anticoagulant #6 persistent nausea and vomiting-etiology unknown-possibly secondary to seizure medication, I will stop the patient's valproic acid at this time, it may be necessary to increase the patient's Lamictal. Patient is currently on Reglan I will continue this medication. Total clinical time spent by myself addressing the patient's medical issues, reviewing all of her data, and collaborating with patient's care team: 35 minutes Charges/Coding Visit Charges Inpatient E&M: 80755 [facility] Hosp L2
[2024-03-01] VITALS (10 sets, daily range): BP systolic 110–127; BP diastolic 60–93; PULSE 62–105; RESP 15–22; TEMP 35.8–37.1; O2SAT 90–99
[2024-03-01] MEDS: Menthol/Lanolin/Calamine/Znox 113 GM Tube 1 APPLIC TOPICAL ×3 (05:52→21:09)
[2024-03-01] MEDS: Nystatin Powder 15gm Bottle 1 APPLIC TOPICAL ×3 (05:53→21:11)
[2024-03-01] MEDS: 0.9% Saline Lock 10 ML Syringe IV ×4 (05:54→17:05)
[2024-03-01] MEDS: Metoclopramide 10 MG/2 ML Vial 2.5 MG IV ×3 (05:54→21:11)
[2024-03-01] MEDS: proMETHazine 25 MG/ML Syringe IM ×2 (06:16→17:05)
--- NOTE | 2024-03-01 06:21 | NURSING ---
began wretching 15m after giving manuel iv reglan. c/o continued pain & nausea. given Phenergan per orders.
--- NOTE | 2024-03-01 08:54 | CASEMGMT ---
Discharge Planning Updates sent via [facility] to [facility]. Asked for precert to be submitted. Coleen Dotson DC Planning Asst.
[2024-03-01] MEDS: Ceftriaxone 1 GM/50 ML BAG IV (09:37)
--- NOTE | 2024-03-01 11:58 | CASEMGMT ---
Physician spoke with patient's Kit about a peg tube and hospice/palliative. Kit wanted patient to have a peg tube. Kit was also in agreement with talking to Hospice/Palliative Care. This WILMAN and WILMAN Espinoza met with Kit. Kit asked what they would do and WILMAN told him they would explain their services. Kit was agreeable to a referral. WILMAN told Kit that Hospice will call him to set up a time to meet. Kit verbalized understanding. WILMAN called [facility] and spoke with Lenore regarding referral. WILMAN also faxed referral. Lea Delgado RUBBER AND POUNDER [place]
--- NOTE | 2024-03-01 13:21 | PCM.PRE.AN2 ---
Assessment & Plan Anesthesia* Anesthesia Assessment Anesthesia Assessment: Discussed sedation and/or anesthesia options, risks, benefits, and alternatives with patient/parents/legal guardian/POA. Questions invited. The patient/parents/legal guardian/POA seems to understand and agrees to proceed with anesthesia plan. Reviewed the physical assessment, medical history, allergy history and patient home medications list prior to surgery/procedure/anesthetic and documented any changes. Performed airway and anesthesia risk assessments. Anesthesia Focused Assessment* Temperature: 97.6 F Pulse Rate: 62 Blood Pressure: 118/81 Respiratory Rate: 22 Pulse Ox: 94 Focused Labs Anesthesia Preop lab: CBC WBC 9.5 K/mm3 (4.4-11.0) 02/29/24 04:30 RBC 4.06 M/mm3 (4.2-5.4) L 02/29/24 04:30 Hgb 13.9 g/dL (12.0-15.0) 02/29/24 04:30 Hct 42.8 % (37-47) 02/29/24 04:30 Plt Count 245 K/mm3 (150-450) 02/29/24 04:30 CHEMISTRY Potassium 3.4 mmol/L (3.5-5.1) L 02/29/24 04:30 Sodium 140 mmol/L (136-145) 02/29/24 04:30 Magnesium 2.0 mg/dL (1.6-2.6) 02/29/24 04:30 Phosphorus 2.7 mg/dL (2.5-4.9) 02/02/24 22:45 BUN 13 mg/dL (7-18) 02/29/24 04:30 Creatinine 0.72 mg/dL (0.55-1.02) 02/29/24 04:30 Glucose 97 mg/dL (74-106) 02/29/24 04:30 POC Glucose 96 mg/dL (74-106) 02/28/24 23:58 TSH 1.050 uIU/mL (0.358-3.740) 02/11/24 06:19 COAG PT 15.4 SECONDS (11.7-14.9) H 02/26/24 11:41 Pre-Assessment Anesthesia History 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 When Was Last Pacemaker Check QUESTION #4 FULL TEXT: You/Your Family Experience fever (hyperthermia) with Anesthesia Last Oral Intake Last Oral intake: Last Oral Intake NPO since Meds taken in AM with sips of water? Meds patient instructed to take am of surgery PONV PONV - clinical massage therapist: PONV - clinical massage therapist Female HX of Motion Sickness HX of N/V After Surgery Non-Smoker Duration of Surgery greater than 60 minutes Number of Risk Factors PONV Score Height & Weight Height & Weight: Anesthesia: Height & Weight Height 5 ft 8 in 02/29/24 13:43 Weight: 75.07 kg 02/29/24 13:43 Body Mass Index (BMI) 25.1 02/26/24 16:03 Respiratory Assessment Respiratory Assessment - clinical massage therapist: Respiratory Tract Infection Hx - clinical massage therapist Hx Respiratory Tract Infection No 06/23/23 11:27 STOP Sleep Apnea STOP Sleep Apnea - clinical massage therapist: STOP Sleep Apnea - clinical massage therapist Hx Hypertension No 02/27/24 14:30 Hx Sleep Apnea Yes 02/26/24 16:03 CPAP No 02/26/24 16:03 BIPAP No 02/26/24 16:03 Do you snore loudly (louder than talking or can be heard Do you often feel tired/ fatigued/ sleepy during daytime? Has anyone observed you stop breathing during sleep? STOP Results Positive 02/26/24 16:03 QUESTION #5 FULL TEXT : Do you snore loudly (louder than talking or can be heard through closed doors)? 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 Specify any problems Hx of Preganancy in last 3 Months Nurse Filling Out Transfusion & Questions: Date: Time: Patient unable to answer at Yes 02/26/24 16:03 this time (ie. confused, unrespo /Reproduction History /Reproductive History - clinical massage therapist: /Reproductive Hx- clinical massage therapist Hx Now Gestational Age (in weeks): EDC: Hx Hx Para Hx Section SAB No 06/23/23 11:27 Active Medications Active Medications: Current Medications Generic Name Dose Route Start Last Admin Trade Name Freq PRN Reason Stop Dose Admin Acetaminophen 650 mg 02/26/24 16:01 Acetaminophen 325 Mg Tablet PO Q6H PRN PRN Pain 1-10 Or Fever >100.7 Albuterol Sulfate 2.5 mg 02/26/24 16:01 Albuterol 2.5 Mg/3 Ml Vial.Neb. INHALATION Q2H PRN PRN SOB &/OR WHEEZING Apixaban 2.5 mg 02/26/24 22:00 03/01/24 12:31 Apixaban 2.5 Mg Tablet ([facility]) PO Not Given BID ADÁN Calamine/Phenol 1 applic 03/01/24 06:00 03/01/24 05:52 Menthol/Lanolin/Calamine/Znox 113 Gm Tube TOPICAL 1 applic TID ADÁN Administration Protocol Diltiazem HCl 120 mg 02/26/24 17:00 02/29/24 17:40 Diltiazem Cd 120 Mg Capsule PO Not Given DINNER ADÁN Protocol Donepezil HCl 10 mg 02/26/24 22:00 02/29/24 23:15 Donepezil Hcl 10 Mg Tablet PO Not Given QHS ADÁN Duloxetine HCl 30 mg 02/26/24 22:00 02/29/24 23:15 Duloxetine Hcl 30 Mg Capsule PO Not Given QHS [facility] Ceftriaxone Sodium 1 gm in 50 mls @ 100 mls/hr 02/27/24 10:00 03/01/24 10:07 Rocephin IV Infused Q24 ADÁN Infusion Sodium Chloride 100 mls @ 15 mls/hr 02/26/24 16:10 IV .Q6H40M PRN Saline Flush Sodium Chloride 100 mls @ 15 mls/hr 02/26/24 16:10 IV .Q6H40M PRN Additional IVPB Infusion Lamotrigine 200 mg 02/26/24 22:00 03/01/24 12:31 Lamotrigine 100 Mg Tablet PO Not Given BID ADÁN Losartan Potassium 25 mg 02/26/24 22:00 02/29/24 23:15 Losartan Potassium 25 Mg Tablet PO Not Given QHS [facility] Protocol Melatonin 3 mg 02/26/24 16:01 Melatonin 3 Mg Tablet PO QHS PRN PRN INSOMNIA Metoclopramide HCl 2.5 mg 02/29/24 00:05 03/01/24 05:54 Metoclopramide 10 Mg/2 Ml Vial IV 2.5 mg Q8 ADÁN Administration Metoprolol Succinate 25 mg 02/27/24 10:00 03/01/24 12:32 Metoprolol(Xl)Succ 25 Mg Tablet PO Not Given DAILY [facility] Protocol Nutritional Formula (Lactose Free) 120 ml 02/27/24 18:00 03/01/24 12:31 Ensure Clear 120 Ml Liquid PO Not Given 4X/DAY ADÁN Nystatin 1 applic 03/01/24 06:00 03/01/24 05:53 Nystatin Powder 15gm Bottle TOPICAL 1 applic TID [facility] Administration Protocol Promethazine HCl 25 mg 02/26/24 23:19 03/01/24 06:16 Promethazine 25 Mg/Ml Syringe IM 25 mg Q6H PRN PRN Administration NAUSEA/VOMITING Senna/Docusate Sodium 2 tablet 02/26/24 16:01 Senna/Docusate Sodium 1 Tablet PO BID PRN PRN Constipation Sodium Chloride 10 - 40 ml 02/26/24 16:10 03/01/24 09:37 0.9% Saline Lock 10 Ml Syringe IV 10 ml UD PRN Administration SALINE FLUSH PFSH Medical History Mitral regurgitation Aortic valve stenosis with insufficiency Atrial fibrillation Preoperative cardiovascular examination Congestive heart failure (CHF) Dementia Parkinson's disease Rotator cuff tear arthropathy of left shoulder Tremor Cardiomyopathy Aortic stenosis Pericardial effusion Anxiety Depression Hypertension Diabetic neuropathy Acute systolic congestive heart failure Debility Pleural effusion due to CHF (congestive heart failure) Cellulitis of chest wall H/O cardiac murmur Depression Diabetic polyneuropathy Diabetes mellitus Chronic constipation Vitamin D deficiency Hypertension Inability to ambulate due to knee Debility Acute postoperative pain of right knee Wears glasses History of steroid therapy Diabetes Ambulates with cane Arthritis Back pain Injury of back Injury of head and neck Epilepsy Dietary restriction Former smoker Chronic cough Neuropathy History of pain when walking History of stress test History of echocardiogram Cardiology follow-up encounter History of atrial fibrillation Hx of vaginal delivery Hx of back injury Atherosclerotic heart disease of [place] coronary artery without angina pectoris Abnormal stress test History of left heart catheterization (LHC) (~06/02/22) Essential hypertension 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 Neuropathy, diabetic Nephrolithiasis Hypertension DM2 (diabetes mellitus, type 2) Paroxysmal atrial fibrillation Medical History unable to obtain Home Medications ?Medication ?Instructions ?Recorded ?Last Taken ?Type duloxetine 30 mg capsule,delayed 30 mg PO QHS NEUROPATHY 09/22/20 07/21/23 History release cyanocobalamin (vitamin B-12) 1,000 mcg PO DAILY supplement 08/10/22 07/21/23 History 1,000 mcg tablet (Vitamin B-12) apixaban 2.5 mg tablet (Eliquis) 2.5 mg PO BID #180 tabs 01/04/23 07/21/23 Rx furosemide 40 mg tablet 40 mg PO DAILY Diuretic 01/04/23 07/21/23 History diltiazem HCl 120 mg 120 mg PO DINNER heart 05/23/23 07/21/23 History capsule,extended release 24 hr (Cartia XT) losartan 25 mg tablet 25 mg PO QHS #90 tabs 10/03/23 Unknown Rx metoprolol succinate 25 mg 25 mg PO DAILY HEART #90 tabs 10/28/23 Unknown Rx tablet,extended release 24 hr potassium chloride 20 mEq 20 meq PO DAILY supplement 01/12/24 Unknown History tablet,extended release(part/cryst) divalproex 250 mg tablet,delayed 250 mg PO BID #60 tabs 01/19/24 Unknown Rx release donepezil 10 mg tablet 10 mg PO QHS #90 tabs 01/19/24 Unknown Rx lamotrigine 200 mg tablet 200 mg PO BID #60 tabs 01/19/24 Unknown Rx acetaminophen 325 mg tablet 650 mg (2 x 325 mg) PO Q4H PRN PRN 02/07/24 Unknown Rx Fever, pain 1-02/22 #0 tabs tamsulosin 0.4 mg capsule (Flomax) 0.4 mg PO DINNER bladder #30 caps 02/13/24 Unknown Rx ondansetron HCl 4 mg tablet 4 mg PO Q6H PRN nausea and vomiting 02/26/24 Unknown History Allergy/AdvReac Type Severity Reaction Status Date / Time levetiracetam Allergy Other Verified 02/26/24 11:36 nickel Allergy Rash Verified 02/26/24 11:36 sulfamethoxazole (From Allergy Itching Verified 02/26/24 11:36 Bactrim) trimethoprim (From Bactrim) Allergy Itching Verified 02/26/24 11:36 codeine AdvReac Nausea Verified 02/26/24 11:36 milk AdvReac Nausea/Vom/ Verified 02/26/24 11:36 Diarrhea Family History Father No problems noted. Mother No problems noted. Surgical History History of left hip hemiarthroplasty History of total right knee replacement (TKR) S/P total knee arthroplasty Hx of fusion of cervical spine Hx of cystoscopy Amputated toe of right foot History of hysterectomy History of tonsillectomy Deviated septum History of appendectomy History of cholecystectomy History of neck surgery Social History household members: spouse Smoking Status: Former smoker alcohol intake: never substance use type: does not use caffeine: No what type of physical activity do you participate in: other details: physical therapy seatbelt use: always do you feel safe at home: Yes Review of Systems (Anesthesia) ROS Narrative System reviewed and no additional complaints, except as documented.
--- NOTE | 2024-03-01 13:31 | PCM.PRE.AN2 ---
ASA Classification* ASA Classification ASA Classification: 4 and E Assessment & Plan Anesthesia* Anesthesia Assessment Anesthesia Assessment: Discussed sedation and/or anesthesia options, risks, benefits, and alternatives with patient/parents/legal guardian/POA. Questions invited. The patient/parents/legal guardian/POA seems to understand and agrees to proceed with anesthesia plan. Reviewed the physical assessment, medical history, allergy history and patient home medications list prior to surgery/procedure/anesthetic and documented any changes. Performed airway and anesthesia risk assessments. Anesthesia Type Anesthesia Type: MAC (see written pre anesthesia record for full assessment) Anesthesia Focused Assessment* Temperature: 97.6 F Pulse Rate: 62 Blood Pressure: 118/81 Respiratory Rate: 22 Pulse Ox: 94 Airway Assessment Mouth opens: >3 cm Mallampati Score: II Focused Labs Anesthesia Preop lab: CBC WBC 9.5 K/mm3 (4.4-11.0) 02/29/24 04:30 RBC 4.06 M/mm3 (4.2-5.4) L 02/29/24 04:30 Hgb 13.9 g/dL (12.0-15.0) 02/29/24 04:30 Hct 42.8 % (37-47) 02/29/24 04:30 Plt Count 245 K/mm3 (150-450) 02/29/24 04:30 CHEMISTRY Potassium 3.4 mmol/L (3.5-5.1) L 02/29/24 04:30 Sodium 140 mmol/L (136-145) 02/29/24 04:30 Magnesium 2.0 mg/dL (1.6-2.6) 02/29/24 04:30 Phosphorus 2.7 mg/dL (2.5-4.9) 02/02/24 22:45 BUN 13 mg/dL (7-18) 02/29/24 04:30 Creatinine 0.72 mg/dL (0.55-1.02) 02/29/24 04:30 Glucose 97 mg/dL (74-106) 02/29/24 04:30 POC Glucose 96 mg/dL (74-106) 02/28/24 23:58 TSH 1.050 uIU/mL (0.358-3.740) 02/11/24 06:19 COAG PT 15.4 SECONDS (11.7-14.9) H 02/26/24 11:41 Pre-Assessment Diagnosis/Proposed Procedure Planned Operative Procedure(s): peg Anesthesia History Anesthesia History - mattress specialist: Anesthesia History - mattress specialist Hx Hospitalization No 01/26/21 11:07 Any Problems With Anesthesia Yes: n/v 06/23/23 11:27 Cholinesterase deficiency No 06/23/23 11:27 You/Your Family Experience No 06/23/23 11:27 fever (hyperthermia) with Relationship Recent Exposure to Contagious No 06/23/23 11:27 Disease Does patient have nerve No 06/23/23 11:27 stimulator Patient instructed to have device shut off --Does patient have Pacemaker or ICD? When Was Last Pacemaker Check QUESTION #4 FULL TEXT: You/Your Family Experience fever (hyperthermia) with Anesthesia Last Oral Intake Last Oral intake: Last Oral Intake NPO since Meds taken in AM with sips of water? Meds patient instructed to take am of surgery PONV PONV - mattress specialist: PONV - mattress specialist Female HX of Motion Sickness HX of N/V After Surgery Non-Smoker Duration of Surgery greater than 60 minutes Number of Risk Factors PONV Score Height & Weight Height & Weight: Anesthesia: Height & Weight Height 5 ft 8 in 02/29/24 13:43 Weight: 75.07 kg 02/29/24 13:43 Body Mass Index (BMI) 25.1 02/26/24 16:03 Respiratory Assessment Respiratory Assessment - mattress specialist: Respiratory Tract Infection Hx - mattress specialist Hx Respiratory Tract Infection No 06/23/23 11:27 STOP Sleep Apnea STOP Sleep Apnea - mattress specialist: STOP Sleep Apnea - mattress specialist Hx Hypertension No 02/27/24 14:30 Hx Sleep Apnea Yes 02/26/24 16:03 CPAP No 02/26/24 16:03 BIPAP No 02/26/24 16:03 Do you snore loudly (louder than talking or can be heard Do you often feel tired/ fatigued/ sleepy during daytime? Has anyone observed you stop breathing during sleep? STOP Results Positive 02/26/24 16:03 QUESTION #5 FULL TEXT : Do you snore loudly (louder than talking or can be heard through closed doors)? 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 Specify any problems Hx of Preganancy in last 3 Months Nurse Filling Out Transfusion & Questions: Date: Time: Patient unable to answer at Yes 02/26/24 16:03 this time (ie. confused, unrespo /Reproduction History /Reproductive History - mattress specialist: /Reproductive Hx- mattress specialist Hx Now Gestational Age (in weeks): EDC: Hx Hx Para Hx Section SAB No 06/23/23 11:27 Active Medications Active Medications: Current Medications Generic Name Dose Route Start Last Admin Trade Name Freq PRN Reason Stop Dose Admin Acetaminophen 650 mg 02/26/24 16:01 Acetaminophen 325 Mg Tablet PO Q6H PRN PRN Pain 1-10 Or Fever >100.7 Albuterol Sulfate 2.5 mg 02/26/24 16:01 Albuterol 2.5 Mg/3 Ml Vial.Neb. INHALATION Q2H PRN PRN SOB &/OR WHEEZING Apixaban 2.5 mg 02/26/24 22:00 03/01/24 12:31 Apixaban 2.5 Mg Tablet ([facility]) PO Not Given BID [facility] Calamine/Phenol 1 applic 03/01/24 06:00 03/01/24 05:52 Menthol/Lanolin/Calamine/Znox 113 Gm Tube TOPICAL 1 applic TID [facility] Administration Protocol Diltiazem HCl 120 mg 02/26/24 17:00 02/29/24 17:40 Diltiazem Cd 120 Mg Capsule PO Not Given DINNER [facility] Protocol Donepezil HCl 10 mg 02/26/24 22:00 02/29/24 23:15 Donepezil Hcl 10 Mg Tablet PO Not Given QHS [facility] Duloxetine HCl 30 mg 02/26/24 22:00 02/29/24 23:15 Duloxetine Hcl 30 Mg Capsule PO Not Given QHS ADÁN Ceftriaxone Sodium 1 gm in 50 mls @ 100 mls/hr 02/27/24 10:00 03/01/24 10:07 Rocephin IV Infused Q24 ADÁN Infusion Sodium Chloride 100 mls @ 15 mls/hr 02/26/24 16:10 IV .Q6H40M PRN Saline Flush Sodium Chloride 100 mls @ 15 mls/hr 02/26/24 16:10 IV .Q6H40M PRN Additional IVPB Infusion Lamotrigine 200 mg 02/26/24 22:00 03/01/24 12:31 Lamotrigine 100 Mg Tablet PO Not Given BID ADÁN Losartan Potassium 25 mg 02/26/24 22:00 02/29/24 23:15 Losartan Potassium 25 Mg Tablet PO Not Given QHS [facility] Protocol Melatonin 3 mg 02/26/24 16:01 Melatonin 3 Mg Tablet PO QHS PRN PRN INSOMNIA Metoclopramide HCl 2.5 mg 02/29/24 00:05 03/01/24 05:54 Metoclopramide 10 Mg/2 Ml Vial IV 2.5 mg Q8 ADÁN Administration Metoprolol Succinate 25 mg 02/27/24 10:00 03/01/24 12:32 Metoprolol(Xl)Succ 25 Mg Tablet PO Not Given DAILY [facility] Protocol Nutritional Formula (Lactose Free) 120 ml 02/27/24 18:00 03/01/24 12:31 Ensure Clear 120 Ml Liquid PO Not Given 4X/DAY [facility] Nystatin 1 applic 03/01/24 06:00 03/01/24 05:53 Nystatin Powder 15gm Bottle TOPICAL 1 applic TID [facility] Administration Protocol Promethazine HCl 25 mg 02/26/24 23:19 03/01/24 06:16 Promethazine 25 Mg/Ml Syringe IM 25 mg Q6H PRN PRN Administration NAUSEA/VOMITING Senna/Docusate Sodium 2 tablet 02/26/24 16:01 Senna/Docusate Sodium 1 Tablet PO BID PRN PRN Constipation Sodium Chloride 10 - 40 ml 02/26/24 16:10 03/01/24 09:37 0.9% Saline Lock 10 Ml Syringe IV 10 ml UD PRN Administration SALINE FLUSH PFSH Medical History Mitral regurgitation Aortic valve stenosis with insufficiency Atrial fibrillation Preoperative cardiovascular examination Congestive heart failure (CHF) Dementia Parkinson's disease Rotator cuff tear arthropathy of left shoulder Tremor Cardiomyopathy Aortic stenosis Pericardial effusion Anxiety Depression Hypertension Diabetic neuropathy Acute systolic congestive heart failure Debility Pleural effusion due to CHF (congestive heart failure) Cellulitis of chest wall H/O cardiac murmur Depression Diabetic polyneuropathy Diabetes mellitus Chronic constipation Vitamin D deficiency Hypertension Inability to ambulate due to knee Debility Acute postoperative pain of right knee Wears glasses History of steroid therapy Diabetes Ambulates with cane Arthritis Back pain Injury of back Injury of head and neck Epilepsy Dietary restriction Former smoker Chronic cough Neuropathy History of pain when walking History of stress test History of echocardiogram Cardiology follow-up encounter History of atrial fibrillation Hx of vaginal delivery Hx of back injury Atherosclerotic heart disease of [place] coronary artery without angina pectoris Abnormal stress test History of left heart catheterization (LHC) (~06/02/22) Essential hypertension 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 senior living (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 Neuropathy, diabetic Nephrolithiasis Hypertension DM2 (diabetes mellitus, type 2) Paroxysmal atrial fibrillation Medical History unable to obtain Home Medications ?Medication ?Instructions ?Recorded ?Last Taken ?Type duloxetine 30 mg capsule,delayed 30 mg PO QHS NEUROPATHY 09/22/20 07/21/23 History release cyanocobalamin (vitamin B-12) 1,000 mcg PO DAILY supplement 08/10/22 07/21/23 History 1,000 mcg tablet (Vitamin B-12) apixaban 2.5 mg tablet (Eliquis) 2.5 mg PO BID #180 tabs 01/04/23 07/21/23 Rx furosemide 40 mg tablet 40 mg PO DAILY Diuretic 01/04/23 07/21/23 History diltiazem HCl 120 mg 120 mg PO DINNER heart 05/23/23 07/21/23 History capsule,extended release 24 hr (Cartia XT) losartan 25 mg tablet 25 mg PO QHS #90 tabs 10/03/23 Unknown Rx metoprolol succinate 25 mg 25 mg PO DAILY HEART #90 tabs 10/28/23 Unknown Rx tablet,extended release 24 hr potassium chloride 20 mEq 20 meq PO DAILY supplement 01/12/24 Unknown History tablet,extended release(part/cryst) divalproex 250 mg tablet,delayed 250 mg PO BID #60 tabs 01/19/24 Unknown Rx release donepezil 10 mg tablet 10 mg PO QHS #90 tabs 01/19/24 Unknown Rx lamotrigine 200 mg tablet 200 mg PO BID #60 tabs 01/19/24 Unknown Rx acetaminophen 325 mg tablet 650 mg (2 x 325 mg) PO Q4H PRN PRN 02/07/24 Unknown Rx Fever, pain 1-02/22 #0 tabs tamsulosin 0.4 mg capsule (Flomax) 0.4 mg PO DINNER bladder #30 caps 02/13/24 Unknown Rx ondansetron HCl 4 mg tablet 4 mg PO Q6H PRN nausea and vomiting 02/26/24 Unknown History Allergy/AdvReac Type Severity Reaction Status Date / Time levetiracetam Allergy Other Verified 02/26/24 11:36 nickel Allergy Rash Verified 02/26/24 11:36 sulfamethoxazole (From Allergy Itching Verified 02/26/24 11:36 Bactrim) trimethoprim (From Bactrim) Allergy Itching Verified 02/26/24 11:36 codeine AdvReac Nausea Verified 02/26/24 11:36 milk AdvReac Nausea/Vom/ Verified 02/26/24 11:36 Diarrhea Family History Father No problems noted. Mother No problems noted. Surgical History History of left hip hemiarthroplasty History of total right knee replacement (TKR) S/P total knee arthroplasty Hx of fusion of cervical spine Hx of cystoscopy Amputated toe of right foot History of hysterectomy History of tonsillectomy Deviated septum History of appendectomy History of cholecystectomy History of neck surgery Social History household members: spouse Smoking Status: Former smoker alcohol intake: never substance use type: does not use caffeine: No what type of physical activity do you participate in: other details: physical therapy seatbelt use: always do you feel safe at home: Yes Review of Systems (Anesthesia) ROS Narrative System reviewed and no additional complaints, except as documented.
[2024-03-01] MEDS: Cefazolin 2 GM in 0.9% Normal Saline (100mL Bag) 100 ML IV (13:42)
[2024-03-01] MEDS: Silver Nitrate (BKC) 1 EACH (13:51)
--- NOTE | 2024-03-01 14:09 | PCM.POST.ANE ---
Anesthesia: Postop Eval I Current Vital Signs Temperature: 97.3 F Pulse Rate: 83 Blood Pressure: 116/62 Respiratory Rate: 18 Pulse Ox: 94 Oxygen Delivery Method: Nasal Cannula Oxygen Flow Rate (L/min): 4 Assessment Airway patent: Yes Spontaneous unlabored respirations: Yes Mental status: Asleep nausea: No Vomiting: No Anesthesia Complication: No Fluid Hydration Crystalloid volume administer (ml): 40 Total IV fluid infused: 40 Progress Note Anesthesia document: Postop Eval 1 completed: Yes
--- NOTE | 2024-03-01 14:14 | CASEMGMT ---
Patient has been approved to return to [facility]. SW let [facility] know patient is not medically ready today and she may be getting a peg tube. Lea Delgado ASIC DESIGN ENGINEERPati AMATO
--- NOTE | 2024-03-01 14:45 | CASEMGMT ---
Patient's pre-cert is good through 03-07. Lea Delgado CONICAL MIXER FIRST ASSIST
--- NOTE | 2024-03-01 15:48 | PCM.POSTANE2 ---
Anesthesia Postop Eval I Sum Postop Eval Completion status Anesthesia document: Postop Eval 1 completed: Yes Anesthesia Postop Eval I Summary Anesthesia Postop Eval I Summary: Anesthesia Postop Eval I: Assessment Summary Airway patent Yes 03/01/24 14:10 [email or web address] Spontaneous unlabored Yes 03/01/24 14:10 [email or web address] respirations Mental status Asleep 03/01/24 14:10 [email or web address] nausea No 03/01/24 14:10 [email or web address] Vomiting No 03/01/24 14:10 [email or web address] Anesthesia Postop Eval I: Fluid Summary Crystalloid volume administer 40 03/01/24 14:10 [email or web address] (ml) Colloids volume administered ( ml) Blood Product volume administered (ml) Total IV fluid infused 40 03/01/24 14:10 [email or web address] Anesthesia Postop Eval I: Summary Notes Anesthesia Complication No 03/01/24 14:10 [email or web address] Anesthesia Complication Comment: Post-operative progress note Anesthesia: Postop Eval II Evaluation Mental status: Calm and Asleep Pain Level: 0 nausea: No Vomiting: No Complications Anesthesia Complication: No
--- NOTE | 2024-03-01 16:49 | PCM.PN.HOSP ---
Reason for Visit Reason for Visit: Diagnoses Unspecified atrial fibrillation (02/26/24) Cystitis, unspecified without hematuria (02/26/24) Vomiting, unspecified (02/26/24) Altered mental status, unspecified (02/26/24) Unspecified convulsions (02/26/24) Subjective Subjective Patient was seen and examined today, she is nonverbal, she does not appear to be in any distress and she is lethargic. I talked with her today who was at the bedside, I ask him whether he would want her to have a PEG tube due to her persistent vomiting and inability to take her medications and nutrition, he consented to a PEG tube, he also consented to have hospice see the patient in consultation. I contacted gastroenterology and a PEG tube will be inserted. Objective Data Objective Data Vital Signs: Vital Signs Temp Pulse Resp BP Pulse Ox O2 Del Method O2 Flow Rate 98.8 F 79 16 127/73 H 99 Nasal Cannula 3 03/01/24 14:35 03/01/24 14:35 03/01/24 14:35 03/01/24 14:35 03/01/24 14:35 03/01/24 14:35 03/01/24 14:35 Oxygen Flow Rate (L/min) 3 Oxygen Delivery Method Nasal Cannula Weight: 75.07 kg Body Mass Index (BMI) 25.1 Intake & Output: Intake and Output for Last 24 Hours 02/28/24 02/29/24 03/01/24 23:59 23:59 23:59 Intake Total 1050 / 1250 1655.0 / 1655.0 160 / 160 Output Total 0 / 0 200 / 200 0 / 0 Balance 1050 / 1250 1455.0 / 1455.0 160 / 160 Lab / Micro Data 02/29/24 04:30 02/29/24 04:30 Micro: Microbiology 02/26/24 12:25 Urine, Catheterized Urine Culture - Final Presumptive E. coli Physical Exam Narrative In no apparent distress Constitutional Narrative: Patient is alert, she does not speak to this examiner, patient does not her head occasionally for yes General Appearance: well developed HEENT normocephalic, head/scalp atraumatic and moist oral mucous membranes Eyes PERRL, EOMs intact bilaterally and conjunctivae normal Neck supple, no JVD, thyroid normal and no carotid bruits General: trachea midline Resp normal respiratory effort, no retractions, no use of accessory muscles and clear to auscultation bilaterally Auscultation: Negative for rales, rhonchi or wheezes Cardio irregular rate, irregular rhythm, S1 normal heart sound, S2 normal heart sound, 2/6 systolic murmur is noted at the apex and left sternal border, no rub and no gallops GI normal to inspection, nondistended, normoactive bowel sounds, soft to palpation, non-tender and non-distended Extremity no clubbing, cyanosis or edema Skin no rashes or lesions noted General Skin Exam: no breakdown Neuro CN's II-XII intact bilaterally, moves all extremities, no focal motor deficits and no sensory deficits noted Neuro Narrative: Patient is alert, she does not follow commands and she does not speak Psych Psych Narrative: Patient appears alert, she does not follow commands and does not speak Assessment & Plan Assessment/Plan (1) Vomiting: (2) Cystitis: (3) AMS (altered mental status): PLAN: Plan 1. Metabolic encephalopathy secondary to acute urinary tract infection-continue present IV antibiotics, patient is a DNR CC arrest no intubation, patient will be seen in consultation by hospice #2 acute urinary tract infection-patient will remain on IV antibiotics for now, when the PEG tube is placed we may convert to antibiotics for the PEG tube. #3 dementia-complicates care, management, recovery, and prognosis #4 seizure disorder-patient will remain on her present medications #5 permanent atrial fibrillation-patient remains on rate control medication and anticoagulant #6 persistent nausea and vomiting-etiology unknown-patient is unable to take any of her meds due to persistent vomiting, PEG tube will be placed by gastroenterology Total clinical time spent by myself addressing the patient's medical issues, reviewing all of her data, and collaborating with patient's care team: 35 minutes Charges/Coding Visit Charges Inpatient E&M: 67972 Subs Hosp L2
[2024-03-01 17:07] LABS: Lamotrigine (Lamictal) Level 23.2 ug/mL (2.0-20.0)
[2024-03-01] MEDS: Donepezil HCl 10 MG Tablet GT (21:08)
[2024-03-01] MEDS: Losartan Potassium 25 MG Tablet GT (21:10)
[2024-03-01] MEDS: APIXABAN 2.5 MG TABLET (WCH) GT (21:10)
[2024-03-01] MEDS: lamoTRIgine 100 MG Tablet 200 MG GT (21:10)
[2024-03-01] MEDS: DULoxetine Hcl 30 MG Capsule PO (21:10)
[2024-03-02 03:15] VITALS: BP 130/75; PULSE 100; RESP 18; TEMP 36.1; O2SAT 92
[2024-03-02] MEDS: Menthol/Lanolin/Calamine/Znox 113 GM Tube 1 APPLIC TOPICAL ×3 (05:07→20:49)
[2024-03-02] MEDS: Metoclopramide 10 MG/2 ML Vial 2.5 MG IV (05:07)
[2024-03-02] MEDS: Nystatin Powder 15gm Bottle 1 APPLIC TOPICAL ×3 (05:07→20:49)
--- NOTE | 2024-03-02 10:08 | CASEMGMT ---
Discharge Planning Updates sent to [facility] [place] via [employer]. Asked if pt will need to remain here for 24hrs after feeding tube insertion. Requested wknd phone/fax. Awaiting response. Coleen Dotson DC Planning Asst.
[2024-03-02 10:12] VITALS: BP 117/73; PULSE 72; RESP 16; TEMP 36.6; O2SAT 93
[2024-03-02] MEDS: APIXABAN 2.5 MG TABLET (WCH) GT ×2 (10:18→20:47)
[2024-03-02] MEDS: lamoTRIgine 100 MG Tablet 200 MG GT ×2 (10:19→20:47)
--- NOTE | 2024-03-02 11:52 | CASEMGMT ---
Discharge Planning [address] notified of possible wknd discharge. Manan placed in chart. Coleen Dotson DC Planning Asst.
[2024-03-02] MEDS: Jevity 1.5 1,000 ML 20 ML GT (11:58)
--- NOTE | 2024-03-02 12:58 | PN.HOSP_ITS ---
Reason for Visit Reason for Visit: Diagnoses Unspecified atrial fibrillation (02/26/24) Cystitis, unspecified without hematuria (02/26/24) Vomiting, unspecified (02/26/24) Altered mental status, unspecified (02/26/24) Unspecified convulsions (02/26/24) Subjective Subjective Patient was seen and examined today, she is more alert and she is asking for liquids. Patient's medications were given via her PEG tube and she had a small episode of emesis following the administration of water down her PEG tube. Objective Data Objective Data Vital Signs: Vital Signs Temp Pulse Resp BP Pulse Ox O2 Del Method O2 Flow Rate 97.9 F 72 16 117/73 93 Room Air 3 03/02/24 10:12 03/02/24 10:12 03/02/24 10:12 03/02/24 10:12 03/02/24 10:12 03/02/24 10:12 03/01/24 14:35 Oxygen Flow Rate (L/min) 3 Oxygen Delivery Method Room Air Weight: 75.07 kg Body Mass Index (BMI) 25.1 Intake & Output: Intake and Output for Last 24 Hours 02/29/24 03/01/24 03/02/24 23:59 23:59 23:59 Intake Total 1655.0 / 1655.0 190 / 190 Output Total 200 / 200 0 / 0 Balance 1455.0 / 1455.0 190 / 190 Lab / Micro Data 02/29/24 04:30 02/29/24 04:30 Labs: Laboratory Results - last 24 hr 02/26/24 11:50: Lamotrigine 23.2 H Micro: Microbiology 02/26/24 12:25 Urine, Catheterized Urine Culture - Final Presumptive E. coli Physical Exam Narrative In no apparent distress Constitutional Narrative: Patient is alert, patient says a few words today General Appearance: well developed HEENT normocephalic, head/scalp atraumatic and moist oral mucous membranes Eyes PERRL, EOMs intact bilaterally and conjunctivae normal Neck supple, no JVD, thyroid normal and no carotid bruits General: trachea midline Resp normal respiratory effort, no retractions, no use of accessory muscles and clear to auscultation bilaterally Auscultation: Negative for rales, rhonchi or wheezes Cardio irregular rate, irregular rhythm, S1 normal heart sound, S2 normal heart sound, 2/6 systolic murmur is noted at the apex and left sternal border, no rub and no gallops GI normal to inspection, nondistended, normoactive bowel sounds, soft to palpation, non-tender and non-distended Extremity no clubbing, cyanosis or edema Skin no rashes or lesions noted General Skin Exam: no breakdown Neuro CN's II-XII intact bilaterally, moves all extremities, no focal motor deficits and no sensory deficits noted Neuro Narrative: Patient is alert, she does not follow commands, she does respond by speaking today Psych Psych Narrative: Patient appears alert, patient says a few words today, she is confused Assessment & Plan Assessment/Plan (1) Cystitis: (2) Vomiting: (3) AMS (altered mental status): PLAN: Plan 1. Metabolic encephalopathy secondary to acute urinary tract infection-continue present IV antibiotics, patient is a DNR CC arrest no intubation, patient will be seen in consultation by hospice #2 acute urinary tract infection-patient will remain on IV antibiotics for now, when the PEG tube is placed we may convert to antibiotics for the PEG tube. #3 dementia-complicates care, management, recovery, and prognosis #4 seizure disorder-patient will remain on her present medications #5 permanent atrial fibrillation-patient remains on rate control medication and anticoagulant #6 persistent nausea and vomiting-etiology unknown-patient is unable to take any of her meds due to persistent vomiting, PEG tube will be placed by gastroenterology Total clinical time spent by myself addressing the patient's medical issues, reviewing all of her data, and collaborating with patient's care team: 35 minutes
[2024-03-02] MEDS: Metoclopramide 5 MG TABLET GT ×2 (15:17→18:47)
--- NOTE | 2024-03-02 16:08 | CASEMGMT ---
Social Work- Pt has directives naming Kit, spouse, as primary agent and Mehrdad and Andrew, sons, as alternate agents. KEMAR Reynolds
[2024-03-02 16:22] VITALS: BP 118/80; PULSE 99; RESP 16; TEMP 36.6; O2SAT 92
[2024-03-02] MEDS: Donepezil HCl 10 MG Tablet GT (20:47)
[2024-03-02] MEDS: Losartan Potassium 25 MG Tablet GT (20:48)
[2024-03-02] MEDS: Acetaminophen 325 MG Tablet 650 MG GT (20:48)
[2024-03-02] MEDS: Pantoprazole Sodium 40 MG Tablet PO (20:48)
--- NOTE | 2024-03-02 22:00 | NURSING ---
adjusted patients tube feed rate to 35cc/hr per dietary order at 2100. pt did not tolerate, patient needed bed change from large tube feed emesis. changed tube feed rate back to 20cc/hr.
--- NOTE | 2024-03-02 22:17 | NURSING ---
flushed and stopped patients tube feed at this time due to patient having another large tube feed emesis. checked patients residual: 40cc
[2024-03-02 22:22] VITALS: BP 119/65; PULSE 93; RESP 18; TEMP 36.5; O2SAT 93
--- NOTE | 2024-03-02 22:33 | PCM.HOSP.N ---
Hospitalist Note Patient with several recurrent bouts of emesis, will stop TFs until assure not recurrent.
[2024-03-03 04:30] VITALS: BP 111/70; PULSE 73; RESP 18; TEMP 36.7; O2SAT 95
[2024-03-03 08:59] VITALS: BP 110/66; PULSE 78; RESP 14; TEMP 36.6; O2SAT 93
[2024-03-03] MEDS: Jevity 1.5 1,000 ML 20 ML GT (09:14)
[2024-03-03] MEDS: Metoclopramide 5 MG TABLET GT ×2 (09:23→13:41)
[2024-03-03] MEDS: Pantoprazole Sodium 40 MG Tablet PO (09:23)
[2024-03-03] MEDS: APIXABAN 2.5 MG TABLET (WCH) GT (09:23)
[2024-03-03] MEDS: lamoTRIgine 100 MG Tablet 200 MG GT (09:23)
[2024-03-03] MEDS: Nystatin Powder 15gm Bottle 1 APPLIC TOPICAL (13:42)
[2024-03-03] MEDS: Menthol/Lanolin/Calamine/Znox 113 GM Tube 1 APPLIC TOPICAL (13:42)
--- NOTE | 2024-03-03 15:21 | PCM.TXEXTCAR ---
Diet Diet Order/Speech Therapy: 03/02/24 00:01 Diet: Mechanical soft 1800 meredith diet Tube Feed: Start tube feeds at 20 mL/h for 24 hrs-follow instructions as below Routine Orders/Code Status Routine Lab Work: - (Fingerstick blood sugars AC nightly, coverage with Humalog subcu per sliding scale: 200-250: 5 units, 251-300: 8 units, 301-350: 12 units) Code Status: DNRCC-A (no intubation) Wound(s) right knee: Wound Type: Abrasion rt aparicio: Wound Type: scratch ABDOMEN - PEG TUBE SITE: Wound Type: Surgical Incision Therapies Weight Bearing: Weight bearing as tolerated Physical Therapy: Eval and Treat Occupational Therapy: Eval and Treat Speech Therapy: Eval and Treat Problem/Diagnosis (1) Cystitis: Status: Acute Code(s): N30.90 - Cystitis, unspecified without hematuria (2) Vomiting: Status: Chronic Code(s): R11.10 - Vomiting, unspecified Comment: Chronic vomiting-etiology unclear (3) AMS (altered mental status): Status: Acute Code(s): R41.82 - Altered mental status, unspecified Plan 1. Metabolic encephalopathy secondary to acute urinary tract infection-continue present IV antibiotics, patient is a DNR CC arrest no intubation, patient will be seen in consultation by hospice #2 acute urinary tract infection-patient will remain on IV antibiotics for now, when the PEG tube is placed we may convert to antibiotics for the PEG tube. #3 dementia-complicates care, management, recovery, and prognosis #4 seizure disorder-patient will remain on her present medication Lamictal #5 permanent atrial fibrillation-patient remains on rate control medication and anticoagulant #6 persistent nausea and vomiting-etiology unknown Total clinical time spent by myself addressing the patient's medical issues, reviewing all of her data, and collaborating with patient's care team: 35 minutes Allergies/Procedures Done in Hospital Allergies levetiracetam Allergy (Verified 02/26/24 11:36) Other unsure nickel Allergy (Verified 02/26/24 11:36) Rash sulfamethoxazole (From Bactrim) Allergy (Verified 02/26/24 11:36) Itching trimethoprim (From Bactrim) Allergy (Verified 02/26/24 11:36) Itching codeine Adverse Reaction (Verified 02/26/24 11:36) Nausea milk Adverse Reaction (Verified 02/26/24 11:36) Nausea/Vom/Diarrhea only glass of milk - milk by itself ok with milk in food. Procedures: Peg tube placement Type of Care/Length of Stay Estimated LOS: Convalescent Care Less Than 30 days Type of Care Needed: Skilled Rehab Potential: Fair Prognosis: Fair Additional Orders/Day of Discharge Day of Discharge: 03/03/24 Dietary and Speech Recommendations Dietitian Recommendations/Changes: Rec Jevity 1.5 at goal rate 50 ml/hr with 50 ml water flush every 4 hours to provide ~ 1800 meredith / 76 gm pro, if patient tolerates this, increased water flush to 150 mL every 4 hours. For the next 24 hours from 03/03/24 to 03/04/2024, run tube feedings at 20 mL/h, after that, increase to 30 mL/h for another 24 hours, then increase to 40 mL/h for 12 hours, then 50 mL/h thereafter as tolerated Discharge Plan Admission Admit Date/Time: 02/26/24 14:57 Primary Reason for Your Visit: cystitis, nausea/vomiting, encephalopathy Attending Provider: Brijesh Chaney Primary Care Provider: Nahomy Bettencourt Consulting Providers: Mer Srinivasan; Caitlin Roca; Vane Carrasquillo; Ramses Smith; Marcel Patrick; Ling Ochoa; BROOKS CLARK; Poonam Lee; Collette Matta; Jean Carlos Calles; Isatu Spann; Porsche Ni Discharge Orders/Prescriptions Prescriptions: New acetaminophen 325 mg Tablet 650 mg G-tube Q6H PRN PRN (Reason: Pain 1-10 Or Fever >100.7) Qty: 0 0RF donepezil 10 mg Tablet 10 mg G-tube QHS Qty: 0 0RF metoclopramide HCl 5 mg Tablet 5 mg G-tube Q6H Qty: 0 0RF losartan 25 mg Tablet 25 mg G-tube QHS Qty: 0 0RF nystatin [Nyamyc] 100,000 unit/gram Powder 1 applic topical TID Qty: 0 0RF Protocol: *Topical Application Instructions APPLICATION INSTRUCTIONS: apply to groin lamotrigine 100 mg Tablet 300 mg G-tube BID Qty: 0 0RF menthol-zinc oxide [Calmoseptine] 0.44-20.6 % Ointment 1 applic topical TID Qty: 0 0RF Protocol: *Topical Application Instructions APPLICATION INSTRUCTIONS: apply to ramona buttocks Eliquis 5 mg Tablet 2.5 mg G-tube BID Qty: 0 0RF IV with Additives Jevity 1.5 1000 ML 20 mls/hr GT Increase as directed on admission paperwork Ordered By: Brijesh Chaney DO Last Taken: 03/03/24 09:14 20 mls/hr ondansetron 4 mg tablet,disintegrating 4 mg feeding tube Q8H Qty: 1 0RF clonazepam 0.5 mg tablet 0.5 mg feeding tube BID Qty: 5 0RF metoprolol tartrate 25 mg tablet 12.5 mg feeding tube BID Qty: 1 0RF paroxetine HCl [Paxil] 10 mg/5 mL suspension 10 mg feeding tube DAILY Qty: 250 0RF omeprazole 40 mg capsule,delayed release(DR/EC) 40 mg feeding tube DAILY Qty: 1 0RF Discontinued duloxetine 30 mg capsule,delayed release(DR/EC) 30 mg PO QHS cyanocobalamin (vitamin B-12) [Vitamin B-12] 1,000 mcg tablet 1,000 mcg PO DAILY furosemide 40 mg tablet 40 mg PO DAILY Rx Instructions: AM Eliquis 2.5 mg tablet 2.5 mg PO BID Qty: 180 3RF lamotrigine 200 mg tablet 200 mg PO BID Qty: 60 5RF donepezil 10 mg tablet 10 mg PO QHS Qty: 90 1RF potassium chloride 20 mEq tablet,ER particles/crystals 20 meq PO DAILY acetaminophen 325 mg Tablet 650 mg PO Q4H PRN PRN (Reason: Fever, pain -02/22) Qty: 0 0RF tamsulosin [Flomax] 0.4 mg capsule 0.4 mg PO DINNER Qty: 30 0RF ondansetron HCl 4 mg tablet 4 mg PO Q6H PRN (Reason: nausea and vomiting) losartan 25 mg tablet 25 mg PO QHS Qty: 90 3RF No Action diltiazem HCl [Cartia XT] 120 mg capsule,extended release 24hr 120 mg PO DINNER divalproex 250 mg tablet,delayed release (DR/EC) 250 mg PO BID Qty: 60 5RF metoprolol succinate 25 mg tablet extended release 24 hr 25 mg PO DAILY Qty: 90 3RF Referrals / Follow Up: Nahomy Bettencourt MD [Primary Care Provider] - Disposition Disposition (needs filled in before D/C Order can be placed): Long-Term Facility
--- NOTE | 2024-03-03 15:38 | PCM.DC.SUM ---
Providers Date of Admission: 02/26/24 Date of Discharge: 03/03/24 Primary Care Physician: Dr. Nahomy Bettencourt MD Consultations 03/01/24 11:20 Consult: Gastroenterology Routine Consulting Provider: [facility] Reason for Consult: PEG tube insertion EMERGENT Consult: No MD Notified: Yes Date Notified: 03/01/24 Time Notified: 11:21 Method of Notification: Verbal Reason For Visit: AMS Diagnosis Discharge Diagnosis (1) Cystitis: Status: Acute Code(s): N30.90 - Cystitis, unspecified without hematuria (2) Vomiting: Status: Chronic Code(s): R11.10 - Vomiting, unspecified (3) AMS (altered mental status): Status: Acute Code(s): R41.82 - Altered mental status, unspecified Plan 1. Metabolic encephalopathy secondary to acute urinary tract infection-continue present IV antibiotics, patient is a DNR CC arrest no intubation, patient will be seen in consultation by hospice #2 acute urinary tract infection-patient will remain on IV antibiotics for now, when the PEG tube is placed we may convert to antibiotics for the PEG tube. #3 dementia-complicates care, management, recovery, and prognosis #4 seizure disorder-patient will remain on her present medication Lamictal #5 permanent atrial fibrillation-patient remains on rate control medication and anticoagulant #6 persistent nausea and vomiting-etiology unknown Total clinical time spent by myself addressing the patient's medical issues, reviewing all of her data, and collaborating with patient's care team: 35 minutes Medications at Discharge Home Medications diltiazem HCl 120 mg capsule,extended release 24 hr (Cartia XT) 120 mg PO DINNER heart 05/23/23 metoprolol succinate 25 mg tablet,extended release 24 hr 25 mg PO DAILY HEART #90 tabs 10/28/23 divalproex 250 mg tablet,delayed release 250 mg PO BID #60 tabs 01/19/24 IV with Additives 20 mls/hr GT 03/03/24 acetaminophen 325 mg tablet 650 mg (2 x 325 mg) G-tube Q6H PRN PRN Pain 1-10 Or Fever >100.7 #0 tabs 03/03/24 apixaban 5 mg tablet (Eliquis) 2.5 mg (1/2 x 5 mg) G-tube BID #0 tabs 03/03/24 clonazepam 0.5 mg tablet 0.5 mg feeding tube BID chronic anxiety #5 tabs 03/03/24 donepezil 10 mg tablet 10 mg G-tube QHS #0 tabs 03/03/24 lamotrigine 100 mg tablet 300 mg (3 x 100 mg) G-tube BID #0 tabs 03/03/24 losartan 25 mg tablet 25 mg G-tube QHS #0 tabs 03/03/24 menthol 0.44 %-zinc oxide 20.6 % topical ointment (Calmoseptine) 1 applic topical TID #0 grams 03/03/24 metoclopramide HCl 5 mg tablet 5 mg G-tube Q6H #0 tabs 03/03/24 metoprolol tartrate 25 mg tablet 12.5 mg (1/2 x 25 mg) feeding tube BID #1 TAB 03/03/24 nystatin 100,000 unit/gram topical powder (Nyamyc) 1 applic topical TID #0 grams 03/03/24 omeprazole 40 mg capsule,delayed release 40 mg feeding tube DAILY #1 cap 03/03/24 ondansetron 4 mg disintegrating tablet 4 mg feeding tube Q8H #1 TAB 03/03/24 paroxetine HCl 10 mg/5 mL oral suspension (Paxil) 10 mg (5 mL) feeding tube DAILY #250 mL 03/03/24 Hospital Course Operations None Procedures Peg tube placement Summary of Care Provided Minutes Spent on Discharge: 33 Hospital Course: This 83-year-old white female was seen in the emergency room after being brought in due to altered mental status and persistent emesis. Patient had recently been hospitalized and had a workup for the emesis and nothing significant was found. Patient has a history of dementia and complained of nausea and generalized abdominal pain but she was a poor informant. Patient had been added an extended care facility for inpatient rehab services, the patient was found to be slow to respond and not at her baseline per care home. Workup in the emergency room included a CBC which showed a normal white blood cell count, patient's hemoglobin was 15.4, chemistry profile was essentially unremarkable. Urinalysis showed positive nitrites, 10-25 WBCs, and +3 bacteria. Patient's valproic acid level was low at 40, arterial blood gas was obtained and showed a pCO2 of 42 and a pO2 of [address] of the brain showed chronic involutional changes, abdomen and pelvis CT showed a possible fecal impaction and sigmoid diverticulosis. Chest x-ray showed no active disease. Patient was admitted to PCU and started on IV antibiotics for acute cystitis, supportive care was given to the patient and she gradually became more alert over period of several days. Patient was having repeated bouts of emesis which were small, I had discussions with the as to what to do about her nutritional status which could not be sustained due to her persistent vomiting, he wanted the patient to have a PEG tube for nutritional support after my discussion with him concerning means to provide nutrition for the patient. Patient underwent insertion of the PEG tube, tube feedings were begun but the patient had an episode of vomiting the night after the tube was inserted and tube feedings were held and restarted that day at a low rate. I made the decision to stop her valproic acid due to the possibility of nausea with this antiseizure medication. On 03/03/2024, patient was seen and examined: In no apparent distress Constitutional Narrative: Patient is alert, patient says a few words today General Appearance: well developed HEENT normocephalic, head/scalp atraumatic and moist oral mucous membranes Eyes PERRL, EOMs intact bilaterally and conjunctivae normal Neck supple, no JVD, thyroid normal and no carotid bruits General: trachea midline Resp normal respiratory effort, no retractions, no use of accessory muscles and clear to auscultation bilaterally Auscultation: Negative for rales, rhonchi or wheezes Cardio irregular rate, irregular rhythm, S1 normal heart sound, S2 normal heart sound, 2/6 systolic murmur is noted at the apex and left sternal border, no rub and no gallops GI normal to inspection, nondistended, normoactive bowel sounds, soft to palpation, non-tender and non-distended Extremity no clubbing, cyanosis or edema Skin no rashes or lesions noted General Skin Exam: no breakdown Neuro CN's II-XII intact bilaterally, moves all extremities, no focal motor deficits and no sensory deficits noted Neuro Narrative: Patient is alert, she does not follow commands, she does respond by speaking today Psych Psych Narrative: Patient appears alert, patient says a few words today, she is confused On 03/03/2024, patient was transferred to to the [facility] for further care. Weight / BMI Weight Weight: 75.07 kg Body Mass Index (BMI) 25.1 ABG / Lab / Microbiology Data 02/29/24 04:30 02/29/24 04:30 Microbiology: Microbiology 02/26/24 12:25 Urine, Catheterized Urine Culture - Final Presumptive E. coli Meaningful Use Info Meaningful Use Meaningful Use Diagnoses (Choose all that apply): None applicable Ischemic Stroke Statin Dosing Therapy Reference: STATIN DOSE THERAPY REFERENCE: * Patients > 75 years receive moderate or high dose statin therapy. * Patients 75 years or YOUNGER should receive HIGH intensity statin dose unless contraindicated. You will be required to document reason for non-treatment if statin daily dose does not meet guidelines. HIGH DOSE STATIN THERAPY DAILY Atorvastatin > than or = to 40 mg Rosuvastatin > than or = to 20 mg Amlodipine + Atorvastatin > than or = to 2.5/40 mg Ezetimibe + Simvastatin 10/80 mg Simvastatin 80mg Discharge Plan Admission Admit Date/Time: 02/26/24 14:57 Primary Reason for Your Visit: cystitis, nausea/vomiting, encephalopathy Attending Provider: Brijesh Chaney Primary Care Provider: Nahomy Bettencourt Consulting Providers: Mer Srinivasan; Caitlin Roca; Vane Carrasquillo; Ramses Smith; Marcel Patrick; Ling Ochoa; BROOKS CLARK; Poonam Lee; Collette Matta; Jean Carlos Calles; Isatu Spann; Porsche Ni Discharge Orders/Prescriptions Prescriptions: New acetaminophen 325 mg Tablet 650 mg G-tube Q6H PRN PRN (Reason: Pain 1-10 Or Fever >100.7) Qty: 0 0RF donepezil 10 mg Tablet 10 mg G-tube QHS Qty: 0 0RF metoclopramide HCl 5 mg Tablet 5 mg G-tube Q6H Qty: 0 0RF losartan 25 mg Tablet 25 mg G-tube QHS Qty: 0 0RF nystatin [Nyamyc] 100,000 unit/gram Powder 1 applic topical TID Qty: 0 0RF Protocol: *Topical Application Instructions APPLICATION INSTRUCTIONS: apply to groin lamotrigine 100 mg Tablet 300 mg G-tube BID Qty: 0 0RF menthol-zinc oxide [Calmoseptine] 0.44-20.6 % Ointment 1 applic topical TID Qty: 0 0RF Protocol: *Topical Application Instructions APPLICATION INSTRUCTIONS: apply to ramona buttocks Eliquis 5 mg Tablet 2.5 mg G-tube BID Qty: 0 0RF IV with Additives Jevity 1.5 1000 ML 20 mls/hr GT Increase as directed on admission paperwork Ordered By: Brijesh Chaney DO Last Taken: 03/03/24 09:14 20 mls/hr ondansetron 4 mg tablet,disintegrating 4 mg feeding tube Q8H Qty: 1 0RF clonazepam 0.5 mg tablet 0.5 mg feeding tube BID Qty: 5 0RF metoprolol tartrate 25 mg tablet 12.5 mg feeding tube BID Qty: 1 0RF paroxetine HCl [Paxil] 10 mg/5 mL suspension 10 mg feeding tube DAILY Qty: 250 0RF omeprazole 40 mg capsule,delayed release(DR/EC) 40 mg feeding tube DAILY Qty: 1 0RF Discontinued duloxetine 30 mg capsule,delayed release(DR/EC) 30 mg PO QHS cyanocobalamin (vitamin B-12) [Vitamin B-12] 1,000 mcg tablet 1,000 mcg PO DAILY furosemide 40 mg tablet 40 mg PO DAILY Rx Instructions: AM Eliquis 2.5 mg tablet 2.5 mg PO BID Qty: 180 3RF lamotrigine 200 mg tablet 200 mg PO BID Qty: 60 5RF donepezil 10 mg tablet 10 mg PO QHS Qty: 90 1RF potassium chloride 20 mEq tablet,ER particles/crystals 20 meq PO DAILY acetaminophen 325 mg Tablet 650 mg PO Q4H PRN PRN (Reason: Fever, pain 1-02/22) Qty: 0 0RF tamsulosin [Flomax] 0.4 mg capsule 0.4 mg PO DINNER Qty: 30 0RF ondansetron HCl 4 mg tablet 4 mg PO Q6H PRN (Reason: nausea and vomiting) losartan 25 mg tablet 25 mg PO QHS Qty: 90 3RF No Action diltiazem HCl [Cartia XT] 120 mg capsule,extended release 24hr 120 mg PO DINNER divalproex 250 mg tablet,delayed release (DR/EC) 250 mg PO BID Qty: 60 5RF metoprolol succinate 25 mg tablet extended release 24 hr 25 mg PO DAILY Qty: 90 3RF Referrals / Follow Up: Nahomy Bettencourt MD [Primary Care Provider] - Disposition Disposition (needs filled in before D/C Order can be placed): Group Home Facility Charges/Coding Visit Charges Inpatient E&M: 97653 Disch Hosp >30min
[2024-03-03 15:44] VITALS: BP 109/64; PULSE 96; RESP 14; TEMP 36.4; O2SAT 95
[2024-03-03 20:56] VITALS: BP 122/71; PULSE 76; RESP 14; TEMP 36.4; O2SAT 95
--- NOTE | 2024-03-03 20:57 | NURSING ---
Report given to the [facility] for pt return. Pt tolerating PEG tube feedings and complains of no pain, vitals stable. Physicians here to transport pt.
--- NOTE | 2024-03-05 15:27 | OP.CCLET_ITS ---
03/01/2024 Nahomy Bettencourt [place] [id number] [address] Re : Upper GI endoscopy procedure for Isabelle Medrano Dear Dr. Bettencourt This procedure was performed on February. My impressions and recommendations are as follows: Impressions : - No endoscopic esophageal abnormality to explain patient's dysphagia. - No gross lesions in the entire stomach. - No gross lesions in the first portion of the duodenum. - An endoscopically removable PEG placement was successfully completed. - No specimens collected. Recommendations : - Discharge patient to home. - Resume previous diet. - Continue present medications. My findings are described in the full procedure note, which is enclosed. If I can be of further assistance, please feel free to contact me at . Sincerely, Selvin Oscar, 03/01/2024 1:57:42 PM This report has been signed electronically.
--- NOTE | 2024-03-05 15:27 | OP.EGD_ITS ---
Patient Name: Isabelle Medrano Procedure Date: 03/01/2024 1:35 PM Date of : 1940 Age: 83 Procedure: Upper GI endoscopy Indications: Dysphagia Providers: Selvin Oscar DO Medicines: Monitored Anesthesia Care Patient Profile: This is an 83 year old female. Refer to note in patient chart for documentation of history and physical. Patient has symptoms of chronic regurgitation and chronic vomiting. Complications: No immediate complications. Procedure: Pre-Anesthesia Assessment: - Prior to the procedure, a History and Physical was performed, and patient medications and allergies were reviewed. The patient is competent. The risks and benefits of the procedure and the sedation options and risks were discussed with the patient. All questions were answered and informed consent was obtained. Patient identification and proposed procedure were verified by the physician in the pre-procedure area. Mental Status Examination: alert and oriented. Airway Examination: normal oropharyngeal airway and neck mobility. Respiratory Examination: clear to auscultation. CV Examination: normal. Prophylactic Antibiotics: The patient does not require prophylactic antibiotics. Prior Anticoagulants: The patient has taken no anticoagulant or antiplatelet agents except for NSAID medication. ASA Grade Assessment: II - A patient with mild systemic disease. After reviewing the risks and benefits, the patient was deemed in satisfactory condition to undergo the procedure. The anesthesia plan was to use monitored anesthesia care (MAC). Immediately prior to administration of medications, the patient was re-assessed for adequacy to receive sedatives. The heart rate, respiratory rate, oxygen saturations, blood pressure, adequacy of pulmonary ventilation, and response to care were monitored throughout the procedure. The physical status of the patient was re-assessed after the procedure. After obtaining informed consent, the endoscope was passed under direct vision. Throughout the procedure, the patient's blood pressure, pulse, and oxygen saturations were monitored continuously. The gastroscope was introduced through the mouth, and advanced to the second part of duodenum. The upper GI endoscopy was accomplished without difficulty. The patient tolerated the procedure well. Scope In: 1:43:30 PM Scope Out: 1:53:57 PM Total Procedure Duration Time 0 hours 10 minutes 27 seconds Findings: No endoscopic abnormality was evident in the esophagus to explain the patient's complaint of dysphagia. No gross lesions were noted in the entire examined stomach. The patient was placed in the supine position for PEG placement. The stomach was insufflated to appose gastric and abdominal wright. A site was located in the cardia with excellent transillumination for placement. The abdominal wall was marked and prepped in a sterile manner. The area was anesthetized with 1 mL of 0.5% lidocaine. The trocar needle was introduced through the abdominal wall and into the stomach under direct endoscopic view. A snare was introduced through the endoscope and opened in the gastric lumen. The guide wire was passed through the trocar and into the open snare. The snare was closed around the guide wire. The endoscope and snare were removed, pulling the wire out through the mouth. A skin incision was made at the site of needle insertion. The endoscopically removable 20 Fr Sandoz gastrostomy tube was lubricated. The G-tube was tied to the guide wire and pulled through the mouth and into the stomach. The trocar needle was removed, and the gastrostomy tube was pulled out from the stomach through the skin. The external bumper was attached to the gastrostomy tube, and the tube was cut to remove the guide wire. The final position of the gastrostomy tube was confirmed by relook endoscopy, and skin marking noted to be 4 cm at the external bumper. The final tension and compression of the abdominal wall by the PEG tube and external bumper were checked and revealed that the bumper was moderately tight and mildly deforming the skin. The feeding tube was capped, and the tube site cleaned and dressed. No gross lesions were noted in the first portion of the duodenum. Impression: - No endoscopic esophageal abnormality to explain patient's dysphagia. - No gross lesions in the entire stomach. - No gross lesions in the first portion of the duodenum. - An endoscopically removable PEG placement was successfully completed. - No specimens collected. Recommendation: - Discharge patient to home. - Resume previous diet. - Continue present medications. Procedure Code(s): --- Professional --- 11337, Esophagogastroduodenoscopy, flexible, transoral; with directed placement of percutaneous gastrostomy tube CPT copyright 2021 [employer]. All rights reserved. The codes documented in this report are preliminary and upon medical coder review may be revised to meet current compliance requirements. Selvin Oscar DO 03/01/2024 1:57:42 PM This report has been signed electronically. Number of Addenda: 0 Note Initiated On: 03/01/2024 1:35 PM
== END 2024-03-03 20:57 | disposition skilled nursing facility (03) | DRG 689 ==
LOC: ED 11:55 → MS3 15:18 → PCU 15:27
PROVIDERS: Family Medicine; Internal Medicine Gastroenterology; Admitting Provider Internal Medicine; Emergency Provider Surgery; PCP Family Medicine; Visit Provider Internal Medicine
PROC: 0DJ08ZZ Inspection of Upper Intestinal Tract, Via Natural or Artificial Opening Endoscopic (ICD-10-PCS; CPT 43235; principal; 2024-03-01 13:10)
DX: N30.00 Acute cystitis without hematuria (principal); G93.41 Metabolic encephalopathy; I48.21 Permanent atrial fibrillation; I50.22 Chronic systolic (congestive) heart failure; E11.42 Type 2 diabetes mellitus with diabetic polyneuropathy; B96.20 Unspecified Escherichia coli [E. coli] as the cause of diseases classified elsewhere; F02.80 Dementia in other diseases classified elsewhere, unspecified severity, without behavioral disturbance, psychotic disturbance, mood disturbance, and anxiety; Z66 Do not resuscitate; G30.9 Alzheimer's disease, unspecified; G40.909 Epilepsy, unspecified, not intractable, without status epilepticus; I11.0 Hypertensive heart disease with heart failure; R11.15 Cyclical vomiting syndrome unrelated to migraine; I25.10 Atherosclerotic heart disease of native coronary artery without angina pectoris; K59.09 Other constipation; I49.3 Ventricular premature depolarization; Z79.01 Long term (current) use of anticoagulants; Z79.899 Other long term (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; Z87.891 Personal history of nicotine dependence
CPT/HCPCS: 36415; 36600; 70450; 71045; 74177; 80053; 80164; 81001; 82140; 82542; 82803; 82962; 83605; 83690; 83735; 84484; 85025; 85610; 85730; 87086; 87088; 87186; 92610; 93005; 95819; 97162; 97166; 97530; 97802; 97803; 99285; J7030; Q9967; A4216; J2405

== ENCOUNTER 2024-03-04 00:46 | Observation (INO) | payer MEDICARE, SELFPAY ==
[2024-03-04] VITALS (10 sets, daily range): BP systolic 110–136; BP diastolic 54–79; PULSE 65–90; RESP 16–18; TEMP 36.4–36.9; O2SAT 93–96; BMI 27.1; BMI 25.0
--- NOTE | 2024-03-04 01:14 | EDS_ITS ---
HPI History of Present Illness Chief Complaint: Other, Pain/Inj Detail of Chief Complaint: Removed feeding tube Informant: patient, EMS and SNF Narrative Narrative: 83-year-old female presenting from a alf after accidentally removing her new PEG. She complains of soreness at that area but has no other complaints right now. Apparently she has Parkinson's, Alzheimer's dementia, other psychiatric issues, she had been vomiting off and on, I think hospice has been consulted according to some of the documentation I reviewed, and according to same, her wanted her to have a feeding tube so she can maintain nutrition to get her medications but she was to be DNR Comfort Care arrest no intubation. It looks like the PEG was just placed 2 or 3 days ago. [facility] Medical History Mitral regurgitation Aortic valve stenosis with insufficiency Atrial fibrillation Preoperative cardiovascular examination Congestive heart failure (CHF) Dementia Parkinson's disease Rotator cuff tear arthropathy of left shoulder Tremor Cardiomyopathy Aortic stenosis Pericardial effusion Anxiety Depression Hypertension Diabetic neuropathy Acute systolic congestive heart failure Debility Pleural effusion due to CHF (congestive heart failure) Cellulitis of chest wall H/O cardiac murmur Depression Diabetic polyneuropathy Diabetes mellitus Chronic constipation Vitamin D deficiency Hypertension Inability to ambulate due to knee Debility Acute postoperative pain of right knee Wears glasses History of steroid therapy Diabetes Ambulates with cane Arthritis Back pain Injury of back Injury of head and neck Epilepsy Dietary restriction Former smoker Chronic cough Neuropathy History of pain when walking History of stress test History of echocardiogram Cardiology follow-up encounter History of atrial fibrillation Hx of vaginal delivery Hx of back injury Atherosclerotic heart disease of [place] coronary artery without angina pectoris Abnormal stress test History of left heart catheterization (LHC) (~06/02/22) Essential hypertension 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 Neuropathy, diabetic Nephrolithiasis Hypertension DM2 (diabetes mellitus, type 2) Paroxysmal atrial fibrillation Medical History unable to obtain Home Medications ?Medication ?Instructions ?Recorded ?Last Taken ?Type diltiazem HCl 120 mg 120 mg PO DINNER heart 05/23/23 07/21/23 History capsule,extended release 24 hr (Cartia XT) metoprolol succinate 25 mg 25 mg PO DAILY HEART #90 tabs 10/28/23 Unknown Rx tablet,extended release 24 hr divalproex 250 mg tablet,delayed 250 mg PO BID #60 tabs 01/19/24 Unknown Rx release IV with Additives 20 mls/hr GT 03/03/24 Unknown Rx acetaminophen 325 mg tablet 650 mg (2 x 325 mg) G-tube Q6H PRN 03/03/24 Unknown Rx PRN Pain 1-10 Or Fever >100.7 #0 tabs apixaban 5 mg tablet (Eliquis) 2.5 mg (1/2 x 5 mg) G-tube BID #0 03/03/24 Unknown Rx tabs clonazepam 0.5 mg tablet 0.5 mg feeding tube BID chronic 03/03/24 Unknown Rx anxiety #5 tabs donepezil 10 mg tablet 10 mg G-tube QHS #0 tabs 03/03/24 Unknown Rx lamotrigine 100 mg tablet 300 mg (3 x 100 mg) G-tube BID #0 03/03/24 Unknown Rx tabs losartan 25 mg tablet 25 mg G-tube QHS #0 tabs 03/03/24 Unknown Rx menthol 0.44 %-zinc oxide 20.6 % 1 applic topical TID #0 grams 03/03/24 Unknown Rx topical ointment (Calmoseptine) metoclopramide HCl 5 mg tablet 5 mg G-tube Q6H #0 tabs 03/03/24 Unknown Rx metoprolol tartrate 25 mg tablet 12.5 mg (1/2 x 25 mg) feeding tube 03/03/24 Unk nown Rx BID #1 TAB nystatin 100,000 unit/gram topical 1 applic topical TID #0 grams 03/03/24 Unknown Rx powder (Nyamyc) omeprazole 40 mg capsule,delayed 40 mg feeding tube DAILY #1 cap 03/03/24 Unknown Rx release ondansetron 4 mg disintegrating 4 mg feeding tube Q8H #1 TAB 03/03/24 Unknown Rx tablet paroxetine HCl 10 mg/5 mL oral 10 mg (5 mL) feeding tube DAILY 03/03/24 Unknown Rx suspension (Paxil) #250 mL Allergy/AdvReac Type Severity Reaction Status Date / Time levetiracetam Allergy Other Verified 03/04/24 00:48 nickel Allergy Rash Verified 03/04/24 00:48 sulfamethoxazole (From Allergy Itching Verified 03/04/24 00:48 Bactrim) trimethoprim (From Bactrim) Allergy Itching Verified 03/04/24 00:48 codeine AdvReac Nausea Verified 03/04/24 00:48 milk AdvReac Nausea/Vom/ Verified 03/04/24 00:48 Diarrhea Family History Father No problems noted. Mother No problems noted. Surgical History History of left hip hemiarthroplasty History of total right knee replacement (TKR) S/P total knee arthroplasty Hx of fusion of cervical spine Hx of cystoscopy Amputated toe of right foot History of hysterectomy History of tonsillectomy Deviated septum History of appendectomy History of cholecystectomy History of neck surgery Social History household members: spouse Smoking Status: Former smoker alcohol intake: never substance use type: does not use caffeine: No what type of physical activity do you participate in: other details: physical therapy seatbelt use: always do you feel safe at home: Yes ROS ROS ED Review of Systems ROS Unobtainable: due to mental condition Cardiovascular Cardiovascular: Denies chest pain Respiratory/Chest Respiratory/Chest: Denies dyspnea Gastrointestinal Gastrointestinal: Reports abdominal pain; Denies diarrhea or nausea Musculoskeletal Musculoskeletal: Denies back pain or neck pain Neurologic Neurologic: Denies headache(s) EXAM Physical Exam Const Vital Signs: 03/04/24 00:49 03/04/24 00:52 Temperature 98.1 F Temperature Source Axillary Pulse Rate 77 Respiratory Rate 16 Respiratory Effort Normal Blood Pressure 123/54 H Blood Pressure Mean 77 Pulse Ox 93 Oxygen Delivery Method Room Air Positive well nourished and well developed General Appearance ED: well developed and NAD HEENT Reports moist mucous membranes normocephalic and atraumatic Eyes PERRL and EOMs intact bilaterally Neck full ROM and supple Resp normal respiratory effort and clear to auscultation bilaterally Cardio regular rate, regular rhythm and no murmurs GI non-distended GI Narrative: Tender PEG site, no active discharge or bubbling. No signs of acute infection. No active bleeding. Gauze with trace amount of serosanguineous fluid on it against the wound. Tube is not within it and not with the patient. Auscultation: normoactive bowel sounds Palpation: soft Back/Spine no CVA tenderness General Back: other FROM Extremity normal to inspection General Extremety ED: Negative for edema, pulses abnormal or tenderness General Extremity: Negative for edema or pulses abnormal Neuro CN's II-XII intact bilaterally and no sensory deficits noted Sensorium / Orientation: awake, alert and orientation impaired Motor Exam: general weakness Psych mental status grossly normal Skin no rashes or lesions noted and no wounds MDM MDM MDM Narrative Medical decision making narrative: Clinically patient is stable. I am not comfortable simply blindly inserting a new PEG into this site when she just had it done 3 days ago. I think she is going to need to be readmitted to get this replaced. History & Record Review Additional record(s) reviewed:: Prior inpatient record Lab Data Attestation: I reviewed the patient's lab results. Labs: Laboratory Results - last 24 hr 03/04/24 01:30 WBC 8.7 RBC 4.08 L Hgb 14.0 Hct 42.1 MCV 103.2 H MCH 34.3 H MCHC 33.3 RDW Std Deviation 49.5 H RDW Coeff of Robert 13.2 Plt Count 206 MPV 9.7 Immature Gran % (Auto) 0.900 Neut % (Auto) 74.9 H Lymph % (Auto) 14.1 L Porter % (Auto) 6.1 Eos % (Auto) 3.2 Baso % (Auto) 0.8 Absolute Neuts (auto) 6.5 Absolute Lymphs (auto) 1.23 Nucleated RBC % 0 Sodium 141 Potassium 3.3 L Chloride 106 Carbon Dioxide 28.0 Anion Gap 7 BUN 9 Creatinine 0.62 Estim Creat Clear Calc 57.35 Est GFR (MDRD) Af Amer 118 Est GFR (MDRD) Non-Af 98 BUN/Creatinine Ratio 14.6 Glucose 89 Calcium 9.6 Management Discussion w/another healthcare provider: Hospitalist Discharge Plan Dx/Rx/DC Orders Clinical Impression: PEG (percutaneous endoscopic gastrostomy) adjustment/replacement/removal Disposition Disposition: Acute Care Hospital [facility]
[2024-03-04 01:40] LABS: Absolute Lymphocyte Count 1.23 X10^3/uL (0.83-4.51); Absolute Neutrophil Count 6.5 X10^3/uL (2.0-7.7); Basophil# 0.07 X10^3/uL; Basophil% 0.8 % (0-1); Eosinophil# 0.28 X10^3/uL; Eosinophils% 3.2 % (0-5); Hematocrit 42.1 % (37-47); Lymphocyte # 1.23 X10^3/ul (0.83-4.51); Lymphocyte % 14.1 % (19-41); Mean Corp Hgb Conc 33.3 g/dL (32-36); Mean Corpuscular Hgb 34.3 pg (27.0-32.0); Mean Corpuscular Volume 103.2 fL (81-99); Mean Platelet Vol. 9.7 fl (6.2-12.0); Monocyte# 0.53 X10^3/uL; Monocyte% 6.1 % (0-10); NRBC Flagged by Analyzer 0 % (0-5); Neutrophil # 6.51 X10^3/uL (2.7-7.7); Neutrophil % 74.9 % (47-70); Platelet Count 206 K/mm3 (150-450); RBC Distribution Width CV 13.2 % (11.6-14.6); RBC Distribution Width SD 49.5 fl (35.1-43.9); Red Blood Count 4.08 M/mm3 (4.2-5.4); White Blood Count 8.7 K/mm3 (4.4-11.0)
[2024-03-04 01:55] LABS: Anion Gap 7 (5-15); BUN 9 mg/dL (7-18); BUN/Creat Ratio 14.6 RATIO (10-20); Calcium,Total 9.6 mg/dL (8.5-10.1); Chloride 106 mmol/L (98-107); Creatinine, Serum 0.62 mg/dL (0.55-1.02); EST Glomerular Filtration Rate 98 mL/min (>60); Est Glom Filt Rate - Afr Amer 118 mL/min (>60); Estimated Creatinine Clearance 57.35 ml/min; Glucose 89 mg/dL (74-106); Potassium 3.3 mmol/L (3.5-5.1); Sodium Level 141 mmol/L (136-145)
--- NOTE | 2024-03-04 02:10 | HP.PCM.HOS_ITS ---
HPI - General General Date of Admission: 03/04/24 Date of Service: 03/04/24 Chief Complaint: Pulled her GT out. HPI Narrative The patient is an 83 y/o F w/ PMHx: PAF, Persistent N/V of unclear etiology, Seizure disorder, Parkinson's disease with associated dementia with unclear behavioral disturbance history, Anxiety and Depression, Chart reported history Diabetes mellitus type II, Former tobacco use, Valvular Heart disease, Prior Chart reported Hx HF (noted HFrEF but ECHO not consistent, possibly cardiomyopathy unclear type), recent discharge 03/03/24 following admission for metabolic encephalopathy secondary to acute complicated urinary tract infection specifically E. coli with unfortunate persistent history of nausea and emesis eventually discharged following PEG tube placement with tube feeds for supplemental who now represents to the [facility] ED on 03/04/24 secondary to unfortunately pulling out her PEG tube with mild bleeding around the site associated prompting skilled facility to send her to the ED for evaluation. Patient similar to prior evaluation during last admission will answer questions with head nod yes/no but is not verbal currently. She denies any pain. She was not aware she pulled the NGT. Workup in the ED included T98.1, heart 77, BP 123/54, respiratory rate 16, 93% on room air, CBC with WBC 8.7, hemoglobin 14, platelet 206 that marked shift, BMP with potassium 3.3 otherwise unremarkable. [facility] Medical History Mitral regurgitation Aortic valve stenosis with insufficiency Atrial fibrillation Preoperative cardiovascular examination Congestive heart failure (CHF) Dementia Parkinson's disease Rotator cuff tear arthropathy of left shoulder Tremor Cardiomyopathy Aortic stenosis Pericardial effusion Anxiety Depression Hypertension Diabetic neuropathy Acute systolic congestive heart failure Debility Pleural effusion due to CHF (congestive heart failure) Cellulitis of chest wall H/O cardiac murmur Depression Diabetic polyneuropathy Diabetes mellitus Chronic constipation Vitamin D deficiency Hypertension Inability to ambulate due to knee Debility Acute postoperative pain of right knee Wears glasses History of steroid therapy Diabetes Ambulates with cane Arthritis Back pain Injury of back Injury of head and neck Epilepsy Dietary restriction Former smoker Chronic cough Neuropathy History of pain when walking History of stress test History of echocardiogram Cardiology follow-up encounter History of atrial fibrillation Hx of vaginal delivery Hx of back injury Atherosclerotic heart disease of [place] coronary artery without angina pectoris Abnormal stress test History of left heart catheterization (LHC) (~06/02/22) Essential hypertension 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 intermediates (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 Neuropathy, diabetic Nephrolithiasis Hypertension DM2 (diabetes mellitus, type 2) Paroxysmal atrial fibrillation Home Medications ?Medication ?Instructions ?Recorded ?Last Taken ?Type diltiazem HCl 120 mg 120 mg PO DINNER heart 05/23/23 07/21/23 History capsule,extended release 24 hr (Cartia XT) metoprolol succinate 25 mg 25 mg PO DAILY HEART #90 tabs 10/28/23 Unknown Rx tablet,extended release 24 hr divalproex 250 mg tablet,delayed 250 mg PO BID #60 tabs 01/19/24 Unknown Rx release IV with Additives 20 mls/hr GT 03/03/24 Unknown Rx acetaminophen 325 mg tablet 650 mg (2 x 325 mg) G-tube Q6H PRN 03/03/24 Unknown Rx PRN Pain 1-10 Or Fever >100.7 #0 tabs apixaban 5 mg tablet (Eliquis) 2.5 mg (1/2 x 5 mg) G-tube BID #0 03/03/24 Unknown Rx tabs clonazepam 0.5 mg tablet 0.5 mg feeding tube BID chronic 03/03/24 Unknown Rx anxiety #5 tabs donepezil 10 mg tablet 10 mg G-tube QHS #0 tabs 03/03/24 Unknown Rx lamotrigine 100 mg tablet 300 mg (3 x 100 mg) G-tube BID #0 03/03/24 Unknown Rx tabs losartan 25 mg tablet 25 mg G-tube QHS #0 tabs 03/03/24 Unknown Rx menthol 0.44 %-zinc oxide 20.6 % 1 applic topical TID #0 grams 03/03/24 Unknown Rx topical ointment (Calmoseptine) metoclopramide HCl 5 mg tablet 5 mg G-tube Q6H #0 tabs 03/03/24 Unknown Rx metoprolol tartrate 25 mg tablet 12.5 mg (1/2 x 25 mg) feeding tube 03/03/24 Unknown Rx BID #1 TAB nystatin 100,000 unit/gram topical 1 applic topical TID #0 grams 03/03/24 Unknown Rx powder (Nyamyc) omeprazole 40 mg capsule,delayed 40 mg feeding tube DAILY #1 cap 03/03/24 Unknown Rx release ondansetron 4 mg disintegrating 4 mg feeding tube Q8H #1 TAB 03/03/24 Unknown Rx tablet paroxetine HCl 10 mg/5 mL oral 10 mg (5 mL) feeding tube DAILY 03/03/24 Unknown Rx suspension (Paxil) #250 mL Allergy/AdvReac Type Severity Reaction Status Date / Time levetiracetam Allergy Other Verified 03/04/24 00:48 nickel Allergy Rash Verified 03/04/24 00:48 sulfamethoxazole (From Allergy Itching Verified 03/04/24 00:48 Bactrim) trimethoprim (From Bactrim) Allergy Itching Verified 03/04/24 00:48 codeine AdvReac Nausea Verified 03/04/24 00:48 milk AdvReac Nausea/Vom/ Verified 03/04/24 00:48 Diarrhea Family History Father No problems noted. Mother No problems noted. Family History unable to obtain Surgical History History of left hip hemiarthroplasty History of total right knee replacement (TKR) S/P total knee arthroplasty Hx of fusion of cervical spine Hx of cystoscopy Amputated toe of right foot History of hysterectomy History of tonsillectomy Deviated septum History of appendectomy History of cholecystectomy History of neck surgery Social History household members: spouse housing: [facility] Smoking Status: Former smoker alcohol intake: never substance use type: does not use caffeine: No what type of physical activity do you participate in: other details: physical therapy seatbelt use: always do you feel safe at home: Yes ROS Review of Systems ROS Unobtainable: due to mental condition Vital Signs Vital Signs Vital Signs: 03/04/24 00:49 03/04/24 00:52 Temperature 98.1 F Temperature Source Axillary Pulse Rate 77 Respiratory Rate 16 Respiratory Effort Normal Blood Pressure 123/54 H Blood Pressure Mean 77 Pulse Ox 93 Oxygen Delivery Method Room Air Weight Weight: 178 lb 2.136 oz Body Mass Index (BMI) 27.1 Physical Exam Narrative Physical Examination: General: Awake, alert, will head nod and answer questions but is not verbal, remains cooperative to request, seated upright in the bed, following discussions did not seem to realize that she pulled out her G-tube. Skin: Normal color, normal turgor, no icterus, no cyanosis except right anterior distal aparicio wound with dressing in place with no drainage, see abdomen for PEG site description, significant bilateral lower extremity venous stasis skin changes. HEENT: AT/NC, EOMI, PERRLA, MMM, no carotid bruits or JVD noted. Lungs: Mildly diminished, greater bases, appropriate effort, no rales, ronchi or wheezing. Heart: Irregular, rate controlled; no gallop, rub audible, SM+. Abdomen: Soft, no grimacing with palpation of the abdomen diffusely, region where PEG tube was with dark blood apparent but no active bleeding, mildly distended, normal BS, no appreciated HSM. Extremities: No cyanosis, no clubbing, no marked peripheral edema. Neurological: Patient awake, alert, oriented as noted, cognitive function significantly decreased baseline with underlying Parkinson's disease dementia, currently appears similar to previously, baseline intact; pupils equally reactive to light and accommodation, cranial nerves grossly normal, moving all 4 extremities, no focal obvious focal deficits, strength moderately to severely globally decreased Psychiatric: Affect appears currently calm, not pulling at anything, no acute evidence of depressive or anxiety feelings. Results Lab / Micro Data 03/04/24 01:30 03/04/24 01:30 Labs: Laboratory Results - last 24 hr 03/04/24 01:30: WBC 8.7, RBC 4.08 L, Hgb 14.0, Hct 42.1, MCV 103.2 H, MCH 34.3 H , MCHC 33.3, RDW Std Deviation 49.5 H, RDW Coeff of Robert 13.2, Plt Count 206, MPV 9.7, Immature Gran % (Auto) 0.900, Neut % (Auto) 74.9 H, Lymph % (Auto) 14.1 L, [place] % (Auto) 6.1, Eos % (Auto) 3.2, Baso % (Auto) 0.8, Absolute Neuts (auto) 6.5, Absolute Lymphs (auto) 1.23, Nucleated RBC % 0, Sodium 141, Potassium 3.3 L , Chloride 106, Carbon Dioxide 28.0, Anion Gap 7, BUN 9, Creatinine 0.62, Estim Creat Clear Calc 57.35, Est GFR (MDRD) Af Amer 118, Est GFR (MDRD) Non-Af 98, BUN/Creatinine Ratio 14.6, Glucose 89, Calcium 9.6 Assessment & Plan Assessment/Plan (1) PEG (percutaneous endoscopic gastrostomy) adjustment/replacement/removal: PLAN: Plan The patient is an 83 y/o F w/ PMHx: PAF, Persistent N/V of unclear etiology, Seizure disorder, Parkinson's disease with associated dementia with unclear behavioral disturbance history, Anxiety and Depression, Chart reported history Diabetes mellitus type II, Former tobacco use, Valvular Heart disease, Prior Chart reported Hx HF (noted HFrEF but ECHO not consistent, possibly cardiomyopathy unclear type), recent discharge 03/03/24 following admission for metabolic encephalopathy secondary to acute complicated urinary tract infection specifically E. coli with unfortunate persistent history of nausea and emesis eventually discharged following PEG tube placement with tube feeds for supplemental who now represents to the [facility] ED on 03/04/24 secondary to unfortunately pulling out her PEG tube. #1. PEG tube malfunction status post recent placement, excellently pulled out: Given current presentation and serial issues with patient oral intake difficulties with intractable nausea and emesis will admit to medical surgical floor, will reconsult gastroenterology for consideration of placement however as noted below patient with significant underlying dementia history frequently pulling out access thus likely this will continue to happen therefore this may not be the best course for this patient, nutrition will be reconsulted, will maintain on scheduled oral Reglan however if oral intake attempts are unsuccessful may require transition to IV formulation until clinically improving, PT/OT/case management consulted for discharge planning. #2. Hypokalemia: Admission K+ 3.3, magnesium level requested, supplementation given, repeat level in AM. #3. Recent acute complicated E. coli urinary tract infection: Patient completed antibiotic therapy during recent admission per most recent note review, review of urine culture noted celis sensitivity. #4. Severe protein calorie malnutrition: Patient with significant nausea and emesis, unable to tolerate oral intake with recent transition to tube feeds via PEG tube however patient was even having emesis with this in place, now PEG tube is been unfortunately removed by patient, nutrition will be consulted again. #5. Seizure disorder: Will attempt to continue patient Depakote, lamotrigine home regimen however if patient has intractable nausea and emesis may require transition to IV formulation as able. #6. Hypertension: Continue home regimen including diltiazem, metoprolol, losartan if oral intake is unsuccessful however if not may require transition to IV formulations, PRN hydralazine. #7. Anxiety and depression: We will continue patient home paroxetine and clonazepam home regimen if oral intake is unsuccessful however if not may require hold and transition to short acting IV Ativan if needed. #8. PAF: We will continue patient home metoprolol, diltiazem regimen as well as apixaban however if oral intake is unsuccessful then may need to transition to IV formulation and temporarily hold oral anticoagulant therapy. #9. Parkinson's disease with associated dementia with unclear behavioral disturbance history: Patient during previous admission with significant issues pulling at lines and pulling out access thus it is not surprising unfortunately the patient recently pulled out her G-tube. Given the setting of dementia unfortunately usually patients did not fare well with attempts at G-tube placement thus this may need to be reassessed. Will continue patient home donepezil regimen however if oral intake is unsuccessful then we will hold. Complicates presentation, PT/OT/case management consulted for discharge planning. #10. Chart reported history of diabetes mellitus type 2 with chronic neuropathy: Patient per most recent list not on any regimen, most recent noted hemoglobin A1c 06/24/2023 5.6%, will again attempt oral intake potential as patient was cleared by speech for oral intake but had also had PEG tube for supplemental feeds which has now been removed, will maintain on ADA diet with Accu-Cheks with insulin sliding scale. #11. Chart reported history of heart failure, unclear type, possibly previous cardiomyopathy also unclear type: Most recent echocardiogram as noted 02/03/2024 with EF 60% with no evidence any diastolic dysfunction, possibly diagnosis placed during admission with concern for failure, currently maintained on apixaban, metoprolol, losartan regimen, not on statin therapy nor diuretic therapy. Will continue this regimen as oral intake allows otherwise may temporarily need to hold or transition to IV option. #12. Valvular heart disease: Most recent echocardiogram noted 02/03/2024 with EF 60%, no evidence any diastolic dysfunction, RA mildly enlarged, moderate aortic stenosis. #13. GERD: We will continue patient on PPI however if unable to take oral we will transition to IV PPI in interim. #14. Former tobacco use: Encourage continued tobacco cessation. #15. DVT prophylaxis: As noted above will attempt to reinitiate oral apixaban however if intake is unsuccessful we will hold oral anticoagulant and may add chemoprophylaxis. #16. CODE status: DNR-CCA, no intubation per facility paperwork/recent transfer information. Charges/Coding Visit Charges Inpatient E&M: 03278 Init Hosp L2
[2024-03-04 02:36] LABS: Magnesium 2.3 mg/dL (1.6-2.6)
[2024-03-04] MEDS: Potassium Chloride 10mEq/100mL 10 MEQ/100 ML IV.SOLN. 100 MEQ IV BOLUS ×3 (04:18→06:33)
[2024-03-04] MEDS: Metoclopramide 5 MG TABLET PO (05:31)
[2024-03-04 07:09] LABS: Bedside Glucose 98 mg/dL (74-106)
[2024-03-04 07:40] LABS: Absolute Lymphocyte Count 0.72 X10^3/uL (0.83-4.51); Absolute Neutrophil Count 7.1 X10^3/uL (2.0-7.7); Basophil# 0.05 X10^3/uL; Basophil% 0.6 % (0-1); Eosinophil# 0.21 X10^3/uL; Eosinophils% 2.4 % (0-5); Hematocrit 42.7 % (37-47); Hemoglobin 13.3 g/dL (12.0-15.0); Lymphocyte # 0.72 X10^3/ul (0.83-4.51); Lymphocyte % 8.2 % (19-41); Mean Corp Hgb Conc 31.1 g/dL (32-36); Mean Corpuscular Hgb 33.3 pg (27.0-32.0); Mean Corpuscular Volume 106.8 fL (81-99); Mean Platelet Vol. 9.7 fl (6.2-12.0); Monocyte# 0.58 X10^3/uL; Monocyte% 6.6 % (0-10); NRBC Flagged by Analyzer 0 % (0-5); Neutrophil # 7.13 X10^3/uL (2.7-7.7); Neutrophil % 81.7 % (47-70); Platelet Count 194 K/mm3 (150-450); RBC Distribution Width CV 13.1 % (11.6-14.6); RBC Distribution Width SD 51.6 fl (35.1-43.9); White Blood Count 8.7 K/mm3 (4.4-11.0)
[2024-03-04 07:57] LABS: ALB/GLOB Ratio 0.8 RATIO (0.9-2.4); AST(SGOT) 25 U/L (15-37); Alanine Aminotransfer ALT/SGPT 22 U/L (13-56); Albumin, Serum 2.6 g/dL (3.2-5.0); Alkaline Phosphatase 141 U/L (45-117); Anion Gap 7 (5-15); BUN 9 mg/dL (7-18); BUN/Creat Ratio 18.8 RATIO (10-20); Calcium,Total 9.3 mg/dL (8.5-10.1); Chloride 108 mmol/L (98-107); Creatinine, Serum 0.48 mg/dL (0.55-1.02); EST Glomerular Filtration Rate 131 mL/min (>60); Est Glom Filt Rate - Afr Amer 158 mL/min (>60); Estimated Creatinine Clearance 51.86 ml/min; Globulin 3.3 g/dL (2.2-4.2); Glucose 91 mg/dL (74-106); Protein, Total 5.9 g/dL (6.4-8.2); Sodium Level 137 mmol/L (136-145)
[2024-03-04] MEDS: PARoxetine 10 MG Tablet PO (09:07)
[2024-03-04] MEDS: lamoTRIgine 150 MG Tablet 300 MG PO ×2 (09:07→22:36)
[2024-03-04] MEDS: Metoprolol Tartrate 25 MG Tablet 12.5 MG PO ×2 (09:08→22:37)
[2024-03-04] MEDS: Divalproex Sodium 250 MG Tablet PO ×2 (09:08→22:36)
[2024-03-04] MEDS: Pantoprazole Sodium 40 MG Tablet PO (09:09)
[2024-03-04] MEDS: Menthol/Lanolin/Calamine/Znox 113 GM Tube 1 APPLIC TOPICAL ×2 (09:10→22:37)
[2024-03-04] MEDS: APIXABAN 2.5 MG TABLET (WCH) PO ×2 (09:11→22:45)
[2024-03-04] MEDS: clonazePAM 0.5 MG Tablet PO ×2 (09:11→22:45)
[2024-03-04 11:34] LABS: Bedside Glucose 107 mg/dL (74-106)
--- NOTE | 2024-03-04 12:13 | PCM.HOSP.N ---
Hospitalist Note Patient was seen and examined briefly today, she is alert but confused. I talked with gastroenterology about replacing her PEG tube tomorrow. Patient's meds will be held at the present time due to the fact that she has emesis frequently when intaking meds and oral intake.
[2024-03-04] MEDS: Nystatin Powder 15gm Bottle 1 APPLIC TOPICAL ×2 (13:12→22:39)
[2024-03-04 16:33] LABS: Bedside Glucose 107 mg/dL (74-106)
--- NOTE | 2024-03-04 16:52 | NURSING ---
Meds to be crushed and given in pudding, pt requesting to not take meds right now as she is not hungry, feeling a little nauseated, per Dr. Nguyen okay to hold meds if lethargic
[2024-03-04 22:19] LABS: Bedside Glucose 110 mg/dL (74-106)
[2024-03-04] MEDS: Donepezil HCl 10 MG Tablet PO (22:37)
[2024-03-04] MEDS: Losartan Potassium 25 MG Tablet PO (22:38)
[2024-03-05] VITALS (16 sets, daily range): BP systolic 93–153; BP diastolic 53–121; PULSE 51–89; RESP 14–22; TEMP 36.1–36.6; O2SAT 83–98; BMI 25.2
[2024-03-05] MEDS: Metoclopramide 5 MG TABLET PO ×3 (00:05→23:36)
[2024-03-05] MEDS: Menthol/Lanolin/Calamine/Znox 113 GM Tube 1 APPLIC TOPICAL ×2 (06:04→23:30)
[2024-03-05] MEDS: Nystatin Powder 15gm Bottle 1 APPLIC TOPICAL ×2 (06:04→23:35)
[2024-03-05 06:36] LABS: Bedside Glucose 97 mg/dL (74-106)
--- NOTE | 2024-03-05 10:10 | PN.HOSP_ITS ---
Reason for Visit Reason for Visit: Diagnoses Encounter for attention to gastrostomy (03/04/24) Subjective Subjective Shaking of her arms and legs for about 15 seconds today. By nursing this was seen but seemed different than her normal Parkinson;s tremor. Objective Data Objective Data Vital Signs: Vital Signs Temp Pulse Resp BP Pulse Ox O2 Del Method 36.4 C L 51 L 14 109/53 L 95 Room Air 03/05/24 09:35 03/05/24 09:35 03/05/24 09:35 03/05/24 09:35 03/05/24 09:35 03/05/24 09:39 Oxygen Delivery Method Room Air Weight: 75.7 kg Body Mass Index (BMI) 25.2 Intake & Output: Intake and Output for Last 24 Hours 03/03/24 03/04/24 03/05/24 23:59 23:59 23:59 Intake Total 450 / 450 Output Total 500 / 500 200 / 200 Balance -50 / -50 -200 / -200 Medical Nutrition Assessment Dietitian: Malnutrition Criteria Met Start: 03/04/24 16:29 Freq: Status: Active Protocol: Document 03/04/24 16:30 RMA (Rec: 03/04/24 16:30 RMA [id number]) Nutrition Malnutrition Evidence of Malnutrition Exists Yes Malnutrition (severe): Acute Illness/Injury,Chronic Evidenced By Suboptimal Energy Intake ( Severe),Weight Loss (Severe) Clinical Problem Chronic Disease or Condition Related Malnutrition Etiology severe protein-calorie malnutrition in the context of acute on chronic disease related to altered GI function , persistent N/V Signs/Symptoms as evidenced by ~6% unintentional weight loss x 1 month and oral intake is meeting less than 50% estimated nutrition needs x greater than 1 month now; need for enteral nutrition support and PEG tube pulled out by pt ; BMI 25.0 Status Active Problem Recommendation Dietitian Recommendations/Changes Will continue full liquid diet as ordered. Will add vanilla fortified pudding Q meal tray. Will add 240mL ensure clear w/ breakfast for tolerance. Consider replacement of PEG tube for nutrition as medical able; consult RD for enteral nutrition support assessment and orders. Additional ONS as needed, pt was refusing standard ensure at time of assessment. Lab / Micro Data 03/04/24 07:18 03/04/24 07:18 Labs: Laboratory Results - last 24 hr 03/04/24 11:07: POC Glucose 107 H 03/04/24 16:14: POC Glucose 107 H 03/04/24 22:00: POC Glucose 110 H 03/05/24 06:06: POC Glucose 97 Physical Exam Const Constitutional Narrative: Confused. Able to tell me her name. Peers anxious. HEENT head/scalp atraumatic and moist oral mucous membranes Resp normal respiratory effort, no retractions, no use of accessory muscles and clear to auscultation bilaterally Cardio regular rate and regular rhythm GI normal to inspection, nondistended, normoactive bowel sounds and soft to palpation GI Narrative: Bandage over the removed PEG tube site Extremity normal to inspection and full ROM Assessment & Plan Assessment/Plan (1) PEG (percutaneous endoscopic gastrostomy) adjustment/replacement/removal: PLAN: Plan Pulled out PEG tube * unclear circumstances (self-removed?) on the * placed on (no formal GI report that I can see) * strict NPO until it can be replaced. * Patient at high risk for self removal again. Tonic clonic activity * noted 15 seconds of shaking or arms and legs. * on divalproex and lamotrigine. 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 * During admission last month, I discontinued the divalproex as it was unclear if it was contributing to her nauseas and vomiting. It was resumed by subsequent physician involved in her care during that admission. Severe protein calorie malnutrition: * Patient with significant nausea and emesis, unable to tolerate oral intake with recent transition to tube feeds via PEG tube however patient was even having emesis with this in place, now PEG tube is been unfortunately removed by patient, nutrition will be consulted again. Chronic conditions: * Hypertension: Continue home regimen including diltiazem, metoprolol, losartan if oral intake is unsuccessful however if not may require transition to IV formulations, PRN hydralazine. * Anxiety and depression: We will continue patient home paroxetine and clonazepam home regimen if oral intake is unsuccessful however if not may require hold and transition to short acting IV Ativan if needed. * PAF: We will continue patient home metoprolol, diltiazem regimen as well as apixaban however if oral intake is unsuccessful then may need to transition to IV formulation and temporarily hold oral anticoagulant therapy. * Parkinson's disease with associated dementia with unclear behavioral disturbance history: Patient during previous admission with significant issues pulling at lines and pulling out access thus it is not surprising unfortunately the patient recently pulled out her G-tube. Given the setting of dementia unfortunately usually patients did not fare well with attempts at G-tube placement thus this may need to be reassessed. Will continue patient home donepezil regimen however if oral intake is unsuccessful then we will hold. Complicates presentation, PT/OT/case management consulted for discharge planning. VTE prophylaxis: not indicated as already on apixaban. Charges/Coding Visit Charges Inpatient E&M: 61476 Subs Hosp L2
[2024-03-05] MEDS: Divalproex Sodium 250 MG Tablet PO ×2 (10:50→23:33)
[2024-03-05] MEDS: clonazePAM 0.5 MG Tablet PO ×2 (10:51→23:40)
[2024-03-05] MEDS: APIXABAN 2.5 MG TABLET (WCH) PO ×2 (10:51→23:40)
[2024-03-05] MEDS: lamoTRIgine 150 MG Tablet 300 MG PO ×2 (10:51→23:35)
[2024-03-05] MEDS: Pantoprazole Sodium 40 MG Tablet PO (10:52)
[2024-03-05] MEDS: PARoxetine 10 MG Tablet PO (10:52)
[2024-03-05] MEDS: Acetaminophen 325 MG Tablet 650 MG PO (10:53)
--- NOTE | 2024-03-05 11:17 | CASEMGMT ---
Met with patients to complete SR form. SR form explained to pt's who voiced understanding and signed form. Original form placed in pt?s chart and copy provided to patient. Coleen Dotson, Discharge Planning Asst
--- NOTE | 2024-03-05 11:58 | CASEMGMT ---
Social Work- SW attempted to meet with pt spouse to discuss preferences at d/c; spouse not in room, pt unable to answer questions/converse. [facility] reports that pt has 7 skilled days remaining and will need a precert to return. [facility] reports that previously pt spouse was not interested in [facility] or private pay. SW will continue to f/u with spouse. KEMAR Reynolds
--- NOTE | 2024-03-05 14:07 | CASEMGMT ---
Social Work- SW spoke with pt spouse to inform of the 7 remaining skilled days of care at [facility] and discuss alternate payor sources/plans of care. Pt spouse was agreeable to pt returning for the 7 days of skilled care and reports that he is aware of need for plan for residential subcontractor care. Pt spouse states that he will continue to think about what his preferences are for long-term care. WILMAN updated DCA on preference to return t [facility]; SNF list declined at this time. KEMAR Reynolds
--- NOTE | 2024-03-05 14:48 | CASEMGMT ---
Discharge Planning Updates sent to [facility]. Requested precert be submitted. Coleen Dotson DC Planning Asst.
[2024-03-05 15:07] LABS: Hemoglobin A1c 5.1 % (3.8-5.6)
--- NOTE | 2024-03-05 16:27 | PRE.ANES_ITS ---
ASA Classification* ASA Classification ASA Classification: 3 Assessment & Plan Anesthesia* Anesthesia Assessment Anesthesia Assessment: Discussed sedation and/or anesthesia options, risks, benefits, and alternatives with patient/parents/legal guardian/POA. Questions invited. The patient/parents/legal guardian/POA seems to understand and agrees to proceed with anesthesia plan. Reviewed the physical assessment, medical history, allergy history and patient home medications list prior to surgery/procedure/anesthetic and documented any changes. Performed airway and anesthesia risk assessments. Anesthesia Type Anesthesia Type: MAC History Source History Obtained from:: Patient and Chart Anesthesia Focused Assessment* Temperature: 97.9 F Pulse Rate: 73 Blood Pressure: 116/71 Respiratory Rate: 17 Pulse Ox: 98 Oxygen Delivery Method: Room Air Airway Assessment Mouth opens: >3 cm Mallampati Score: III Teeth Condition: Intact Focused Labs Anesthesia Preop lab: CBC WBC 8.7 K/mm3 (4.4-11.0) 03/04/24 07:18 RBC 4.00 M/mm3 (4.2-5.4) L 03/04/24 07:18 Hgb 13.3 g/dL (12.0-15.0) 03/04/24 07:18 Hct 42.7 % (37-47) 03/04/24 07:18 Plt Count 194 K/mm3 (150-450) 03/04/24 07:18 CHEMISTRY Potassium 4.0 mmol/L (3.5-5.1) 03/04/24 07:18 Sodium 137 mmol/L (136-145) 03/04/24 07:18 Magnesium 2.3 mg/dL (1.6-2.6) 03/04/24 01:30 Phosphorus 2.7 mg/dL (2.5-4.9) 02/02/24 22:45 BUN 9 mg/dL (7-18) 03/04/24 07:18 Creatinine 0.48 mg/dL (0.55-1.02) L 03/04/24 07:18 Glucose 91 mg/dL (74-106) 03/04/24 07:18 POC Glucose 97 mg/dL (74-106) 03/05/24 06:06 TSH 1.050 uIU/mL (0.358-3.740) 02/11/24 06:19 COAG PT 15.4 SECONDS (11.7-14.9) H 02/26/24 11:41 Pre-Assessment Diagnosis/Proposed Procedure Planned Operative Procedure(s): EGD with PEG tube placed Anesthesia History Anesthesia History - licensed massage therapist: Anesthesia History - licensed massage therapist Hx Hospitalization No 01/26/21 11:07 Any Problems With Anesthesia Yes: n/v 03/05/24 14:52 Cholinesterase deficiency No 03/05/24 14:52 You/Your Family Experience No 03/05/24 14:52 fever (hyperthermia) with Relationship Recent Exposure to Contagious No 03/05/24 14:52 Disease Does patient have nerve No 03/05/24 14:52 stimulator Patient instructed to have device shut off --Does patient have Pacemaker No 03/05/24 14:45 or ICD? When Was Last Pacemaker Check QUESTION #4 FULL TEXT: You/Your Family Experience fever (hyperthermia) with Anesthesia Last Oral Intake Last Oral intake: Last Oral Intake NPO since 13:06 03/05/24 14:45 Meds taken in AM with sips of Yes 03/05/24 14:45 water? Meds patient instructed to See MAR, medications taken 03/05/24 14:45 take am of surgery with small bites of yogurt. PONV PONV - licensed massage therapist: PONV - licensed massage therapist Female HX of Motion Sickness HX of N/V After Surgery Non-Smoker Duration of Surgery greater than 60 minutes Number of Risk Factors PONV Score Height & Weight Height & Weight: Anesthesia: Height & Weight Height 5 ft 8 in 03/04/24 16:00 Weight: 75.7 kg 03/05/24 14:45 Body Mass Index (BMI) 25.2 03/05/24 06:00 Respiratory Assessment Respiratory Assessment - licensed massage therapist: Respiratory Tract Infection Hx - licensed massage therapist Hx Respiratory Tract Infection No 03/05/24 14:52 STOP Sleep Apnea STOP Sleep Apnea - licensed massage therapist: STOP Sleep Apnea - licensed massage therapist Hx Hypertension No 03/04/24 12:07 Hx Sleep Apnea Yes 03/04/24 03:50 CPAP No 03/04/24 03:50 BIPAP No 03/04/24 03:50 Do you snore loudly (louder than talking or can be heard Do you often feel tired/ fatigued/ sleepy during daytime? Has anyone observed you stop breathing during sleep? STOP Results Positive 03/04/24 03:50 QUESTION #5 FULL TEXT : Do you snore loudly (louder than talking or can be heard through closed doors)? 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 Specify any problems Hx of Preganancy in last 3 Months Nurse Filling Out Transfusion & Questions: Date: Time: Patient unable to answer at Yes 03/04/24 03:50 this time (ie. confused, unrespo /Reproduction History /Reproductive History - licensed massage therapist: /Reproductive Hx- licensed massage therapist Hx Now No 03/05/24 14:52 Gestational Age (in weeks): EDC: Hx Hx Para Hx Section SAB No 03/05/24 14:52 Active Medications Active Medications: Current Medications Generic Name Dose Route Start Last Admin Trade Name Freq PRN Reason Stop Dose Admin Acetaminophen 650 mg 03/04/24 03:31 03/05/24 10:53 Acetaminophen 325 Mg Tablet PO 650 mg Q4H PRN PRN Administration Fever, pain 1-10 Al Hydroxide/Mg Hydroxide 30 ml 03/04/24 03:31 Mag Hydrox/Al Hydrox/Simeth 30 Ml Udc PO Q6H PRN PRN Gastric Burning Albuterol Sulfate 2.5 mg 03/04/24 03:31 Albuterol 2.5 Mg/3 Ml Vial.Neb. INHALATION Q2H PRN PRN Dyspnea, wheezing Apixaban 2.5 mg 03/04/24 10:00 03/05/24 10:51 Apixaban 2.5 Mg Tablet (Wch) PO 2.5 mg BID ADÁN Administration Calamine/Phenol 1 applic 03/04/24 06:00 03/05/24 15:04 Menthol/Lanolin/Calamine/Znox 113 Gm Tube TOPICAL Not Given TID [facility] Protocol Clonazepam 0.5 mg 03/04/24 10:00 03/05/24 10:51 Clonazepam 0.5 Mg Tablet PO 0.5 mg BID ADÁN Administration Diltiazem HCl 120 mg 03/04/24 17:00 03/04/24 16:51 Diltiazem Cd 120 Mg Capsule PO Not Given DINNER ADÁN Protocol Divalproex Sodium 250 mg 03/04/24 10:00 03/05/24 10:50 Divalproex Sodium 250 Mg Tablet PO 250 mg BID ADÁN Administration Donepezil HCl 10 mg 03/04/24 22:00 03/04/24 22:37 Donepezil Hcl 10 Mg Tablet PO 10 mg QHS ADÁN Administration Glucagon 1 mg 03/04/24 03:31 Glucagon 1 Mg/Ml Syringe IM X1 PRN HYPOGLYCEMIA Protocol Hydralazine HCl 10 mg 03/04/24 03:31 Hydralazine 20 Mg/Ml Vial IV Q4H PRN PRN SBP > 160 Protocol Dextrose 250 mls @ 0 mls/hr 03/04/24 03:31 Dextrose 10%-Water IV .Q0M PRN HYPOGLYCEMIA Protocol As Directed Sodium Chloride 500 mls @ 15 mls/hr 03/04/24 03:34 IV .[id number] PRN Saline Flush Sodium Chloride 500 mls @ 15 mls/hr 03/04/24 03:34 IV .[id number] PRN Additional IVPB Infusion Insulin Human Lispro 0 unit 03/04/24 07:00 03/05/24 12:01 Insulin Lispro 100 Unit/Ml Insuln.Pen SC Not Given ACHS [facility] Protocol Lamotrigine 300 mg 03/04/24 10:00 03/05/24 10:51 Lamotrigine 150 Mg Tablet PO 300 mg BID ADÁN Administration Losartan Potassium 25 mg 03/04/24 22:00 03/04/24 22:38 Losartan Potassium 25 Mg Tablet PO 25 mg QHS ADÁN Administration Protocol Melatonin 3 mg 03/04/24 03:31 Melatonin 3 Mg Tablet PO QHS PRN PRN INSOMNIA Metoclopramide HCl 5 mg 03/04/24 06:00 03/05/24 12:21 Metoclopramide 5 Mg Tablet PO Not Given Q6 [facility] Metoprolol Tartrate 12.5 mg 03/04/24 10:00 03/05/24 11:16 Metoprolol Tartrate 25 Mg Tablet PO Not Given BID [facility] Protocol Nystatin 1 applic 03/04/24 06:00 03/05/24 15:04 Nystatin Powder 15gm Bottle TOPICAL Not Given TID [facility] Protocol Ondansetron HCl 4 mg 03/04/24 03:31 Ondansetron 4 Mg/2 Ml Vial IV Q8H PRN PRN NAUSEA/VOMITING Pantoprazole Sodium 40 mg 03/04/24 10:00 03/05/24 10:52 Pantoprazole Sodium 40 Mg Tablet PO 40 mg DAILY [facility] Administration Paroxetine HCl 10 mg 03/04/24 10:00 03/05/24 10:52 Paroxetine 10 Mg Tablet PO 10 mg DAILY ADÁN Administration Prochlorperazine Edisylate 5 mg 03/04/24 03:31 Prochlorperazine 10 Mg/2 Ml Vial IV Q4H PRN PRN Breakthrough nausea/vomiting Senna/Docusate Sodium 2 tablet 03/04/24 03:31 Senna/Docusate Sodium 1 Tablet PO BID PRN PRN Constipation Sodium Chloride 10 - 40 ml 03/04/24 03:34 0.9% Saline Lock 10 Ml Syringe IV UD PRN SALINE FLUSH PFSH Medical History Mitral regurgitation Aortic valve stenosis with insufficiency Atrial fibrillation Preoperative cardiovascular examination Congestive heart failure (CHF) Dementia Parkinson's disease Rotator cuff tear arthropathy of left shoulder Tremor Cardiomyopathy Aortic stenosis Pericardial effusion Anxiety Depression Hypertension Diabetic neuropathy Acute systolic congestive heart failure Debility Pleural effusion due to CHF (congestive heart failure) Cellulitis of chest wall H/O cardiac murmur Depression Diabetic polyneuropathy Diabetes mellitus Chronic constipation Vitamin D deficiency Hypertension Inability to ambulate due to knee Debility Acute postoperative pain of right knee Wears glasses History of steroid therapy Diabetes Ambulates with cane Arthritis Back pain Injury of back Injury of head and neck Epilepsy Dietary restriction Former smoker Chronic cough Neuropathy History of pain when walking History of stress test History of echocardiogram Cardiology follow-up encounter History of atrial fibrillation Hx of vaginal delivery Hx of back injury Atherosclerotic heart disease of [place] coronary artery without angina pectoris Abnormal stress test History of left heart catheterization (LHC) (~06/02/22) Essential hypertension Other halfway (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 Neuropathy, diabetic Nephrolithiasis Hypertension DM2 (diabetes mellitus, type 2) Paroxysmal atrial fibrillation Home Medications ?Medication ?Instructions ?Recorded ?Last Taken ?Type diltiazem HCl 120 mg 120 mg PO DINNER heart 05/23/23 07/21/23 History capsule,extended release 24 hr (Cartia XT) metoprolol succinate 25 mg 25 mg PO DAILY HEART #90 tabs 10/28/23 Unknown Rx tablet,extended release 24 hr divalproex 250 mg tablet,delayed 250 mg PO BID #60 tabs 01/19/24 Unknown Rx release IV with Additives 20 mls/hr GT 03/03/24 Unknown Rx acetaminophen 325 mg tablet 650 mg (2 x 325 mg) G-tube Q6H PRN 03/03/24 Unknown Rx PRN Pain 1-10 Or Fever >100.7 #0 tabs apixaban 5 mg tablet (Eliquis) 2.5 mg (1/2 x 5 mg) G-tube BID #0 03/03/24 Unknown Rx tabs clonazepam 0.5 mg tablet 0.5 mg feeding tube BID chronic 03/03/24 Unknown Rx anxiety #5 tabs donepezil 10 mg tablet 10 mg G-tube QHS #0 tabs 03/03/24 Unknown Rx lamotrigine 100 mg tablet 300 mg (3 x 100 mg) G-tube BID #0 03/03/24 Unknown Rx tabs losartan 25 mg tablet 25 mg G-tube QHS #0 tabs 03/03/24 Unknown Rx menthol 0.44 %-zinc oxide 20.6 % 1 applic topical TID #0 grams 03/03/24 Unknown Rx topical ointment (Calmoseptine) metoclopramide HCl 5 mg tablet 5 mg G-tube Q6H #0 tabs 03/03/24 Unknown Rx metoprolol tartrate 25 mg tablet 12.5 mg (1/2 x 25 mg) feeding tube 03/03/24 Unknown Rx BID #1 TAB nystatin 100,000 unit/gram topical 1 applic topical TID #0 grams 03/03/24 Unknown Rx powder (Nyamyc) omeprazole 40 mg capsule,delayed 40 mg feeding tube DAILY #1 cap 03/03/24 Unknown Rx release ondansetron 4 mg disintegrating 4 mg feeding tube Q8H #1 TAB 03/03/24 Unknown Rx tablet paroxetine HCl 10 mg/5 mL oral 10 mg (5 mL) feeding tube DAILY 03/03/24 Unknown Rx suspension (Paxil) #250 mL Allergy/AdvReac Type Severity Reaction Status Date / Time levetiracetam Allergy Other Verified 03/04/24 00:48 nickel Allergy Rash Verified 03/04/24 00:48 sulfamethoxazole (From Allergy Itching Verified 03/04/24 00:48 Bactrim) trimethoprim (From Bactrim) Allergy Itching Verified 03/04/24 00:48 codeine AdvReac Nausea Verified 03/04/24 00:48 milk AdvReac Nausea/Vom/ Verified 03/04/24 00:48 Diarrhea Family History Father No problems noted. Mother No problems noted. Family History unable to obtain Surgical History History of left hip hemiarthroplasty History of total right knee replacement (TKR) S/P total knee arthroplasty Hx of fusion of cervical spine Hx of cystoscopy Amputated toe of right foot History of hysterectomy History of tonsillectomy Deviated septum History of appendectomy History of cholecystectomy History of neck surgery Social History household members: spouse housing: detention Smoking Status: Former smoker alcohol intake: never substance use type: does not use caffeine: No what type of physical activity do you participate in: other details: physical therapy seatbelt use: always do you feel safe at home: Yes Review of Systems (Anesthesia) ROS Narrative System reviewed and no additional complaints, except as documented.
[2024-03-05 16:33] LABS: Bedside Glucose 80 mg/dL (74-106)
[2024-03-05] MEDS: 0.9% Normal Saline (500mL Bag) 500 ML 999 ML IV (16:34)
[2024-03-05 17:24] LABS: Bedside Glucose 90 mg/dL (74-106)
--- NOTE | 2024-03-05 17:57 | PCM.POST.ANE ---
Anesthesia: Postop Eval I Current Vital Signs Temperature: 97 F Pulse Rate: 89 Blood Pressure: 153/109 Respiratory Rate: 18 Pulse Ox: 94 Oxygen Delivery Method: Nasal Cannula Oxygen Flow Rate (L/min): 2 Assessment Airway patent: Yes Spontaneous unlabored respirations: Yes Mental status: Awake and Confused nausea: No Vomiting: No Anesthesia Complication: No Fluid Hydration Crystalloid volume administer (ml): 50 Total IV fluid infused: 50 Progress Note Anesthesia document: Postop Eval 1 completed: Yes
--- NOTE | 2024-03-05 17:58 | POSTOPAN2_ITS ---
Anesthesia Postop Eval I Sum Postop Eval Completion status Anesthesia document: Postop Eval 1 completed: Yes Anesthesia Postop Eval I Summary Anesthesia Postop Eval I Summary: Anesthesia Postop Eval I: Assessment Summary Airway patent Yes 03/05/24 17:58 [employer]PORATE [employer].MDOT Spontaneous unlabored Yes 03/05/24 17:58 [employer]PORATE [employer].MDOT respirations Mental status Awake,Confused 03/05/24 17:58 [employer]PORATE [employer].MDOT nausea No 03/05/24 17:58 CORPORATE [employer].MDOT Vomiting No 03/05/24 17:58 CORPORATE [employer]GAL.MDOT Anesthesia Postop Eval I: Fluid Summary Crystalloid volume administer 50 03/05/24 17:58 CORPORATE PARALEGAL.MDOT (ml) Colloids volume administered ( ml) Blood Product volume administered (ml) Total IV fluid infused 50 03/05/24 17:58 CORPORATE PARALEGAL.MDOT Anesthesia Postop Eval I: Summary Notes Anesthesia Complication No 03/05/24 17:58 CORPORATE PARALEGAL.MDOT Anesthesia Complication Comment: Post-operative progress note Anesthesia: Postop Eval II Evaluation Mental status: Awake and Confused Pain Level: 0 nausea: No Vomiting: No Complications Anesthesia Complication: No
--- NOTE | 2024-03-05 17:58 | PCM.POSTANE2 ---
Anesthesia Postop Eval I Sum Postop Eval Completion status Anesthesia document: Postop Eval 1 completed: Yes Anesthesia Postop Eval I Summary Anesthesia Postop Eval I Summary: Anesthesia Postop Eval I: Assessment Summary Airway patent Yes 03/05/24 17:58 [employer] PROFESSIONAL.MDOT Spontaneous unlabored Yes 03/05/24 17:58 [employer]AN [employer]OURCE PROFESSIONAL.MDOT respirations Mental status Awake,Confused 03/05/24 17:58 [employer]AN [employer]OURCE PROFESSIONAL.MDOT nausea No 03/05/24 17:58 HUMAN RESOURCE PROFESSIONAL.MDOT Vomiting No 03/05/24 17:58 HUMAN RESOURCE PROFESSIONAL.MDOT Anesthesia Postop Eval I: Fluid Summary Crystalloid volume administer 50 03/05/24 17:58 H[employer]AN [employer]OURCE PROFESSIONAL.MDOT (ml) Colloids volume administered ( ml) Blood Product volume administered (ml) Total IV fluid infused 50 03/05/24 17:58 HUMAN RESOURCE PROFESSIONAL.MDOT Anesthesia Postop Eval I: Summary Notes Anesthesia Complication No 03/05/24 17:58 H[employer]AN RESOURCE PROFESSIONAL.MDOT Anesthesia Complication Comment: Post-operative progress note Anesthesia: Postop Eval II Evaluation Mental status: Awake and Confused Pain Level: 0 nausea: No Vomiting: No Complications Anesthesia Complication: No
--- NOTE | 2024-03-05 18:07 | OP.CCLET_ITS ---
03/05/2024 Nahomy Bettencourt [id number] [facility] [address] [address] Re : Upper GI endoscopy procedure for Isabelle Medrano Dear Dr. Bettencourt This procedure was performed on Tuesday, March 05, 2024. My impressions and recommendations are as follows: Impressions : - No endoscopic esophageal abnormality to explain patient's dysphagia. - Non-bleeding gastric ulcer with no stigmata of bleeding. - No gross lesions in the duodenal bulb. - An endoscopically removable PEG placement was successfully completed. - No specimens collected. Recommendations : - Return patient to hospital fine for ongoing care. - Resume previous diet. - Please follow the post-PEG recommendations including: start using PEG today. - Continue present medications. My findings are described in the full procedure note, which is enclosed. If I can be of further assistance, please feel free to contact me at . Sincerely, Selvin Oscar, 03/05/2024 6:06:52 PM This report has been signed electronically.
--- NOTE | 2024-03-05 18:07 | OP.EGD_ITS ---
Patient Name: Isabelle Medrano Procedure Date: 03/05/2024 5:08 PM Date of : 1940 Age: 83 Procedure: Upper GI endoscopy Indications: Dysphagia Providers: Selvin Oscar DO Medicines: Monitored Anesthesia Care Patient Profile: This is an 83 year old female. Refer to note in patient chart for documentation of history and physical. Patient has symptoms of chronic nausea, chronic odynophagia and chronic vomiting. Complications: No immediate complications. Procedure: Pre-Anesthesia Assessment: - Prior to the procedure, a History and Physical was performed, and patient medications and allergies were reviewed. The patient is competent. The risks and benefits of the procedure and the sedation options and risks were discussed with the patient. All questions were answered and informed consent was obtained. Patient identification and proposed procedure were verified by the physician in the pre-procedure area. Mental Status Examination: alert and oriented. Airway Examination: normal oropharyngeal airway and neck mobility. Respiratory Examination: clear to auscultation. CV Examination: normal. Prophylactic Antibiotics: The patient does not require prophylactic antibiotics. Prior Anticoagulants: The patient has taken no anticoagulant or antiplatelet agents except for NSAID medication. ASA Grade Assessment: II - A patient with mild systemic disease. After reviewing the risks and benefits, the patient was deemed in satisfactory condition to undergo the procedure. The anesthesia plan was to use monitored anesthesia care (MAC). Immediately prior to administration of medications, the patient was re-assessed for adequacy to receive sedatives. The heart rate, respiratory rate, oxygen saturations, blood pressure, adequacy of pulmonary ventilation, and response to care were monitored throughout the procedure. The physical status of the patient was re-assessed after the procedure. After obtaining informed consent, the endoscope was passed under direct vision. Throughout the procedure, the patient's blood pressure, pulse, and oxygen saturations were monitored continuously. The Endoscope was introduced through the mouth, and advanced to the second part of duodenum. The upper GI endoscopy was accomplished without difficulty. The patient tolerated the procedure well. Scope In: 5:30:59 PM Scope Out: 5:53:30 PM Total Procedure Duration Time 0 hours 22 minutes 31 seconds Findings: No endoscopic abnormality was evident in the esophagus to explain the patient's complaint of dysphagia. One non-bleeding linear gastric ulcer with no stigmata of bleeding was found in the gastric fundus. The lesion was 5 mm in largest dimension. The patient was placed in the supine position for PEG placement. The stomach was insufflated to appose gastric and abdominal wright. A site was located in the body of the stomach with excellent transillumination for placement. The abdominal wall was marked and prepped in a sterile manner. The area was anesthetized with 1 mL of 0.5% lidocaine. The trocar needle was introduced through the abdominal wall and into the stomach under direct endoscopic view. A snare was introduced through the endoscope and opened in the gastric lumen. The guide wire was passed through the trocar and into the open snare. The snare was closed around the guide wire. The endoscope and snare were removed, pulling the wire out through the mouth. A skin incision was made at the site of needle insertion. The endoscopically removable 20 Fr Bard gastrostomy tube was lubricated. The G-tube was tied to the guide wire and pulled through the mouth and into the stomach. The trocar needle was removed, and the gastrostomy tube was pulled out from the stomach through the skin. The external bumper was attached to the gastrostomy tube, and the tube was cut to remove the guide wire. The final position of the gastrostomy tube was confirmed by relook endoscopy, and skin marking noted to be 4 cm at the external bumper. The final tension and compression of the abdominal wall by the PEG tube and external bumper were checked. The feeding tube was capped, and the tube site cleaned and dressed. No gross lesions were noted in the duodenal bulb. Impression: - No endoscopic esophageal abnormality to explain patient's dysphagia. - Non-bleeding gastric ulcer with no stigmata of bleeding. - No gross lesions in the duodenal bulb. - An endoscopically removable PEG placement was successfully completed. - No specimens collected. Recommendation: - Return patient to hospital fine for ongoing care. - Resume previous diet. - Please follow the post-PEG recommendations including: start using PEG today. - Continue present medications. Procedure Code(s): --- Professional --- 63441, Esophagogastroduodenoscopy, flexible, transoral; with directed placement of percutaneous gastrostomy tube CPT copyright 2021 [employer]. All rights reserved. The codes documented in this report are preliminary and upon tub attendant review may be revised to meet current compliance requirements. Selvin Oscar DO 03/05/2024 6:06:52 PM This report has been signed electronically. Number of Addenda: 0 Note Initiated On: 03/05/2024 5:08 PM
[2024-03-05 18:22] LABS: Bedside Glucose 98 mg/dL (74-106)
[2024-03-05] MEDS: Donepezil HCl 10 MG Tablet PO (23:33)
[2024-03-05] MEDS: Losartan Potassium 25 MG Tablet PO (23:33)
[2024-03-05] MEDS: Metoprolol Tartrate 25 MG Tablet 12.5 MG PO (23:35)
[2024-03-05 23:53] LABS: Bedside Glucose 80 mg/dL (74-106)
[2024-03-06] VITALS (9 sets, daily range): BP systolic 99–124; BP diastolic 51–80; PULSE 63–95; RESP 18; TEMP 36.4–36.8; O2SAT 89–100; BMI 25.2
[2024-03-06] MEDS: Ondansetron 4 MG/2 ML Vial IV (02:46)
[2024-03-06] MEDS: Acetaminophen 325 MG Tablet 650 MG PO ×2 (02:46→12:50)
[2024-03-06] MEDS: 0.9% Saline Lock 10 ML Syringe IV ×3 (02:48→12:30)
[2024-03-06] MEDS: Metoclopramide 5 MG TABLET PO (05:32)
[2024-03-06] MEDS: Nystatin Powder 15gm Bottle 1 APPLIC TOPICAL ×3 (05:32→21:19)
[2024-03-06] MEDS: Menthol/Lanolin/Calamine/Znox 113 GM Tube 1 APPLIC TOPICAL ×3 (05:32→21:19)
[2024-03-06 05:51] LABS: Bedside Glucose 92 mg/dL (74-106)
--- NOTE | 2024-03-06 07:00 | POSTOPAN2_ITS ---
Anesthesia Postop Eval I Sum Postop Eval Completion status Anesthesia document: Postop Eval 1 completed: Yes Anesthesia Postop Eval I Summary Anesthesia Postop Eval I Summary: Anesthesia Postop Eval I: Assessment Summary Airway patent Yes 03/05/24 17:58 [email or web address] Spontaneous unlabored Yes 03/05/24 17:58 FLORAL DESIGNER.MDOT respirations Mental status Awake,Confused 03/05/24 17:58 FLORAL [email or web address] nausea No 03/05/24 17:58 FLORAL [email or web address] Vomiting No 03/05/24 17:58 FLORAL [email or web address] Anesthesia Postop Eval I: Fluid Summary Crystalloid volume administer 50 03/05/24 17:58 FLORAL [email or web address].MDOT (ml) Colloids volume administered ( ml) Blood Product volume administered (ml) Total IV fluid infused 50 03/05/24 17:58 FLORAL [email or web address] Anesthesia Postop Eval I: Summary Notes Anesthesia Complication No 03/05/24 17:58 FLORAL [email or web address] Anesthesia Complication Comment: Post-operative progress note Anesthesia: Postop Eval II Evaluation Mental status: Awake Pain Level: 0 nausea: No Vomiting: No
--- NOTE | 2024-03-06 07:00 | PCM.POSTANE2 ---
Anesthesia Postop Eval I Sum Postop Eval Completion status Anesthesia document: Postop Eval 1 completed: Yes Anesthesia Postop Eval I Summary Anesthesia Postop Eval I Summary: Anesthesia Postop Eval I: Assessment Summary Airway patent Yes 03/05/24 17:58 INDUSTRIAL GAS SERVICER [email or web address] Spontaneous unlabored Yes 03/05/24 17:58 INDUSTRIAL GAS SERVICER SUPERVISOR.MDOT respirations Mental status Awake,Confused 03/05/24 17:58 INDUSTRIAL GAS SERVICER SUPERVISOR.MDOT nausea No 03/05/24 17:58 INDUSTRIAL GAS SERVICER SUPERVISOR.MDOT Vomiting No 03/05/24 17:58 INDUSTRIAL GAS SERVICER [email or web address] Anesthesia Postop Eval I: Fluid Summary Crystalloid volume administer 50 03/05/24 17:58 INDUSTRIAL GAS SERVICER SUPERVISOR.MDOT (ml) Colloids volume administered ( ml) Blood Product volume administered (ml) Total IV fluid infused 50 03/05/24 17:58 INDUSTRIAL GAS SERVICER [email or web address] Anesthesia Postop Eval I: Summary Notes Anesthesia Complication No 03/05/24 17:58 INDUSTRIAL GAS SERVICER [email or web address].MDOT Anesthesia Complication Comment: Post-operative progress note Anesthesia: Postop Eval II Evaluation Mental status: Awake Pain Level: 0 nausea: No Vomiting: No
[2024-03-06 07:02] LABS: Anion Gap 6 (5-15); BUN 9 mg/dL (7-18); Calcium,Total 9.2 mg/dL (8.5-10.1); Chloride 108 mmol/L (98-107); EST Glomerular Filtration Rate 101 mL/min (>60); Est Glom Filt Rate - Afr Amer 122 mL/min (>60); Estimated Creatinine Clearance 51.86 ml/min; Glucose 93 mg/dL (74-106); Potassium 3.6 mmol/L (3.5-5.1); Sodium Level 140 mmol/L (136-145)
--- NOTE | 2024-03-06 07:07 | EX.PCM.PN.GI ---
Subjective Subjective Patient underwent PEG tube placement yesterday. She is tolerating tube feedings and water flushes without any nausea or vomiting. Objective Data Objective Data Vital Signs: Vital Signs Temp Pulse Resp BP Pulse Ox O2 Del Method O2 Flow Rate 97.6 F L 67 18 99/53 L 95 Nasal Cannula 2 03/06/24 12:40 03/06/24 12:40 03/06/24 12:40 03/06/24 12:40 03/06/24 12:40 03/06/24 14:00 03/06/24 14:00 Oxygen Flow Rate (L/min) 2 Oxygen Delivery Method Nasal Cannula Weight: 166 lb 14.239 oz Body Mass Index (BMI) 25.2 Intake & Output: Intake and Output for Last 24 Hours 03/04/24 03/05/24 03/06/24 23:59 23:59 23:59 Intake Total 450 / 450 620 / 620 133.2 / 133.2 Output Total 500 / 500 500 / 500 200 / 200 Balance -50 / -50 120 / 120 -66.8 / -66.8 Medical Nutrition Assessment Dietitian: Malnutrition Criteria Met Start: 03/04/24 16:29 Freq: Status: Active Protocol: Document 03/04/24 16:30 RMA (Rec: 03/04/24 16:30 RMA [id number]) Nutrition Malnutrition Evidence of Malnutrition Exists Yes Malnutrition (severe): Acute Illness/Injury,Chronic Evidenced By Suboptimal Energy Intake ( Severe),Weight Loss (Severe) Clinical Problem Chronic Disease or Condition Related Malnutrition Etiology severe protein-calorie malnutrition in the context of acute on chronic disease related to altered GI function , persistent N/V Signs/Symptoms as evidenced by ~6% unintentional weight loss x 1 month and oral intake is meeting less than 50% estimated nutrition needs x greater than 1 month now; need for enteral nutrition support and PEG tube pulled out by pt ; BMI 25.0 Status Active Problem Recommendation Dietitian Recommendations/Changes Will continue full liquid diet as ordered. Will add vanilla fortified pudding Q meal tray. Will add 240mL ensure clear w/ breakfast for tolerance. Consider replacement of PEG tube for nutrition as medical able; consult RD for enteral nutrition support assessment and orders. Additional ONS as needed, pt was refusing standard ensure at time of assessment. Lab / Micro Data 03/04/24 07:18 03/06/24 06:23 Labs: Laboratory Results - last 24 hr 03/05/24 17:06: POC Glucose 90 03/05/24 18:04: POC Glucose 98 03/05/24 23:32: POC Glucose 80 03/06/24 05:31: POC Glucose 92 03/06/24 06:23: Sodium 140, Potassium 3.6, Chloride 108 H, Carbon Dioxide 26.0, Anion Gap 6, BUN 9, Creatinine 0.60, Estim Creat Clear Calc 51.86, Est GFR (MDRD) Af Amer 122, Est GFR (MDRD) Non-Af 101, BUN/Creatinine Ratio 15.0, Glucose 93, Calcium 9.2 03/06/24 12:13: POC Glucose 66 L 03/06/24 12:45: POC Glucose 125 H 03/06/24 14:41: POC Glucose 82 Physical Exam Const Orientation / Consciousness: confused Cardio regular rate, regular rhythm, S1 normal heart sound and S2 normal heart sound GI normal to inspection, nondistended, normoactive bowel sounds, soft to palpation, non-tender and non-distended GI Narrative: abdominal binder in place. PEG site covered in bandages. Neuro Sensorium / Orientation: awake Assessment & Plan Assessment/Plan (1) Vomiting: (2) Cystitis: (3) AMS (altered mental status): PLAN: Plan 1. Metabolic encephalopathy secondary to acute urinary tract infection-continue present IV antibiotics, patient is a DNR CC arrest no intubation #2 acute urinary tract infection-I will change the patient from IV antibiotics to oral antibiotics #3 dementia-complicates care, management, recovery, and prognosis #4 seizure disorder-patient will remain on her present medications #5 permanent atrial fibrillation-patient remains on rate control medication and anticoagulant #6 persistent nausea and vomiting-etiology unknown-possibly secondary to seizure medication, I will stop the patient's valproic acid at this time, it may be necessary to increase the patient's Lamictal. Patient is currently on Reglan I will continue this medication. Status post PEG tube placement and then patient pulled it out and status post replacement. Charges/Coding Visit Charges Inpatient E&M: 98553 [facility] L3
--- NOTE | 2024-03-06 07:48 | PCM.PN.HOSP ---
Reason for Visit Reason for Visit: Diagnoses Encounter for attention to gastrostomy (03/04/24) Subjective Subjective PEG replaced 03/05. Objective Data Objective Data Vital Signs: Vital Signs Temp Pulse Resp BP Pulse Ox O2 Del Method O2 Flow Rate 36.8 C 83 18 102/66 93 Room Air 2 03/06/24 02:51 03/06/24 02:51 03/06/24 02:51 03/06/24 02:51 03/06/24 02:51 03/06/24 03:00 03/06/24 00:50 Oxygen Flow Rate (L/min) 2 Oxygen Delivery Method Room Air Weight: 75.7 kg Body Mass Index (BMI) 25.2 Intake & Output: Intake and Output for Last 24 Hours 03/04/24 03/05/24 03/06/24 23:59 23:59 23:59 Intake Total 450 / 450 620 / 620 Output Total 500 / 500 500 / 500 150 / 150 Balance -50 / -50 120 / 120 -150 / -150 Medical Nutrition Assessment Dietitian: Malnutrition Criteria Met Start: 03/04/24 16:29 Freq: Status: Active Protocol: Document 03/04/24 16:30 RMA (Rec: 03/04/24 16:30 RMA [id number]) Nutrition Malnutrition Evidence of Malnutrition Exists Yes Malnutrition (severe): Acute Illness/Injury,Chronic Evidenced By Suboptimal Energy Intake ( Severe),Weight Loss (Severe) Clinical Problem Chronic Disease or Condition Related Malnutrition Etiology severe protein-calorie malnutrition in the context of acute on chronic disease related to altered GI function , persistent N/V Signs/Symptoms as evidenced by ~6% unintentional weight loss x 1 month and oral intake is meeting less than 50% estimated nutrition needs x greater than 1 month now; need for enteral nutrition support and PEG tube pulled out by pt ; BMI 25.0 Status Active Problem Recommendation Dietitian Recommendations/Changes Will continue full liquid diet as ordered. Will add vanilla fortified pudding Q meal tray. Will add 240mL ensure clear w/ breakfast for tolerance. Consider replacement of PEG tube for nutrition as medical able; consult RD for enteral nutrition support assessment and orders. Additional ONS as needed, pt was refusing standard ensure at time of assessment. Lab / Micro Data 03/04/24 07:18 03/06/24 06:23 Labs: Laboratory Results - last 24 hr 03/04/24 07:18: Hemoglobin A1c 5.1 03/05/24 16:11: POC Glucose 80 03/05/24 17:06: POC Glucose 90 03/05/24 18:04: POC Glucose 98 03/05/24 23:32: POC Glucose 80 03/06/24 05:31: POC Glucose 92 03/06/24 06:23: Sodium 140, Potassium 3.6, Chloride 108 H, Carbon Dioxide 26.0, Anion Gap 6, BUN 9, Creatinine 0.60, Estim Creat Clear Calc 51.86, Est GFR (MDRD) Af Amer 122, Est GFR (MDRD) Non-Af 101, BUN/Creatinine Ratio 15.0, Glucose 93, Calcium 9.2 Physical Exam Const Orientation / Consciousness: confused Cardio regular rate, regular rhythm, S1 normal heart sound and S2 normal heart sound GI normal to inspection, nondistended, normoactive bowel sounds, soft to palpation, non-tender and non-distended GI Narrative: abdominal binder in place. PEG site covered in bandages. Neuro Sensorium / Orientation: awake Assessment & Plan Assessment/Plan (1) PEG (percutaneous endoscopic gastrostomy) adjustment/replacement/removal: PLAN: Plan Displaced PEG tube likely self-removed on the placed on (no formal GI report that I can see) replaced on the Patient at high risk for self removal again. Tonic clonic activity noted 15 seconds of shaking or arms and legs on 03/05 on divalproex and lamotrigine. 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 During admission last month, I discontinued the divalproex as it was unclear if it was contributing to her nauseas and vomiting. It was resumed by subsequent physician involved in her care during that admission. Severe protein calorie malnutrition: Patient with significant nausea and emesis, unable to tolerate oral intake with recent transition to tube feeds via PEG tube however patient was even having emesis with this in place, now PEG tube is been unfortunately removed by patient, nutrition will be consulted again. Chronic conditions: Hypertension: Continue home regimen including diltiazem, metoprolol, losartan if oral intake is unsuccessful however if not may require transition to IV formulations, PRN hydralazine. Anxiety and depression: We will continue patient home paroxetine and clonazepam home regimen if oral intake is unsuccessful however if not may require hold and transition to short acting IV Ativan if needed. PAF: We will continue patient home metoprolol, diltiazem regimen as well as apixaban however if oral intake is unsuccessful then may need to transition to IV formulation and temporarily hold oral anticoagulant therapy. Parkinson's disease with associated dementia with unclear behavioral disturbance history: Patient during previous admission with significant issues pulling at lines and pulling out access thus it is not surprising unfortunately the patient recently pulled out her G-tube. Given the setting of dementia unfortunately usually patients did not fare well with attempts at G-tube placement thus this may need to be reassessed. Will continue patient home donepezil regimen however if oral intake is unsuccessful then we will hold. Complicates presentation, PT/OT/case management consulted for discharge planning. VTE prophylaxis: not indicated as already on apixaban. Disposition: pending insurance authorization back to SNF. Charges/Coding Visit Charges Inpatient E&M: 30747 Subs Hosp L2
[2024-03-06] MEDS: proCHLORPERazine 10 MG/2 ML Vial 5 MG IV (08:50)
[2024-03-06] MEDS: Dextrose 10%-Water 250 ML 999 ML IV (12:29)
[2024-03-06 12:30] LABS: Bedside Glucose 66 mg/dL (74-106)
[2024-03-06] MEDS: lamoTRIgine 150 MG Tablet 300 MG PO ×2 (12:50→21:22)
[2024-03-06] MEDS: Divalproex Sodium 250 MG Tablet PO ×2 (12:50→21:22)
[2024-03-06] MEDS: APIXABAN 2.5 MG TABLET (WCH) PO ×2 (12:51→21:26)
[2024-03-06 13:30] LABS: Bedside Glucose 125 mg/dL (74-106)
--- NOTE | 2024-03-06 14:05 | TREXTCAR_ITS ---
Diet Diet Order/Speech Therapy: Full liquid diet. Jevity 1.5 20cc/h via PEG. Routine Orders/Code Status Code Status: DNRCC-A (no intubation) Wound(s) PEG site: Wound Type: PEG Tube pulled out (abdominal binder covering the PEG tube. ) Right Fermin: Wound Type: Skin Tear abd: Wound Type: Surgical Incision Therapies Physical Therapy: Eval and Treat Occupational Therapy: Eval and Treat Speech Therapy: Eval and Treat Problem/Diagnosis (1) PEG (percutaneous endoscopic gastrostomy) adjustment/replacement/removal: Status: Acute Code(s): Z43.1 - Encounter for attention to gastrostomy Plan Displaced PEG tube * likely self-removed on the * placed on (no formal GI report that I can see) * replaced on the * Patient at high risk for self removal again. Tonic clonic activity * noted 15 seconds of shaking or arms and legs on 03/05 * on divalproex and lamotrigine. 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 * During admission last month, I discontinued the divalproex as it was unclear if it was contributing to her nauseas and vomiting. It was resumed by subsequent physician involved in her care during that admission. Severe protein calorie malnutrition: * Patient with significant nausea and emesis, unable to tolerate oral intake with recent transition to tube feeds via PEG tube however patient was even having emesis with this in place, now PEG tube is been unfortunately removed by patient, nutrition will be consulted again. Chronic conditions: * Hypertension: Continue home regimen including diltiazem, metoprolol, losartan if oral intake is unsuccessful however if not may require transition to IV formulations, PRN hydralazine. * Anxiety and depression: We will continue patient home paroxetine and clonazepam home regimen if oral intake is unsuccessful however if not may require hold and transition to short acting IV Ativan if needed. * PAF: We will continue patient home metoprolol, diltiazem regimen as well as apixaban however if oral intake is unsuccessful then may need to transition to IV formulation and temporarily hold oral anticoagulant therapy. * Parkinson's disease with associated dementia with unclear behavioral disturbance history: Patient during previous admission with significant issues pulling at lines and pulling out access thus it is not surprising unfortunately the patient recently pulled out her G-tube. Given the setting of dementia unfortunately usually patients did not fare well with attempts at G-tube placement thus this may need to be reassessed. Will continue patient home donepezil regimen however if oral intake is unsuccessful then we will hold. Complicates presentation, PT/OT/case management consulted for discharge planning. VTE prophylaxis: not indicated as already on apixaban. Disposition: pending insurance authorization back to SNF. Allergies/Procedures Done in Hospital Allergies levetiracetam Allergy (Verified 03/04/24 00:48) Other unsure nickel Allergy (Verified 03/04/24 00:48) Rash sulfamethoxazole (From Bactrim) Allergy (Verified 03/04/24 00:48) Itching trimethoprim (From Bactrim) Allergy (Verified 03/04/24 00:48) Itching codeine Adverse Reaction (Verified 03/04/24 00:48) Nausea milk Adverse Reaction (Verified 03/04/24 00:48) Nausea/Vom/Diarrhea only glass of milk - milk by itself ok with milk in food. Type of Care/Length of Stay Estimated LOS: Convalescent Care Less Than 30 days Type of Care Needed: Skilled Rehab Potential: Poor Prognosis: Poor Additional Orders/Day of Discharge Day of Discharge: 03/06/24 Dietary and Speech Recommendations Dietitian Recommendations/Changes: Will continue full liquid diet as ordered. Will add vanilla fortified pudding Q meal tray. Will add 240mL ensure clear w/ breakfast for tolerance. Consider replacement of PEG tube for nutrition as medical able; consult RD for enteral nutrition support assessment and orders. Additional ONS as needed, pt was refusing standard ensure at time of assessment. Discharge Plan Admission Admit Date/Time: 03/04/24 02:12 Attending Provider: Steve Tesfaye Primary Care Provider: Nahomy Bettencourt Consulting Providers: Carrie Grant; Brijesh Chaney Discharge Orders/Prescriptions Prescriptions: Continued diltiazem HCl [Cartia XT] 120 mg capsule,extended release 24hr 120 mg PO DINNER divalproex 250 mg tablet,delayed release (DR/EC) 250 mg PO BID Qty: 60 5RF acetaminophen 325 mg Tablet 650 mg G-tube Q6H PRN PRN (Reason: Pain 1-10 Or Fever >100.7) Qty: 0 0RF donepezil 10 mg Tablet 10 mg G-tube QHS Qty: 0 0RF metoclopramide HCl 5 mg Tablet 5 mg G-tube Q6H Qty: 0 0RF losartan 25 mg Tablet 25 mg G-tube QHS Qty: 0 0RF nystatin [Nyamyc] 100,000 unit/gram Powder 1 applic topical TID Qty: 0 0RF Protocol: *Topical Application Instructions APPLICATION INSTRUCTIONS: apply to groin lamotrigine 100 mg Tablet 300 mg G-tube BID Qty: 0 0RF menthol-zinc oxide [Calmoseptine] 0.44-20.6 % Ointment 1 applic topical TID Qty: 0 0RF Protocol: *Topical Application Instructions APPLICATION INSTRUCTIONS: apply to ramona buttocks Eliquis 5 mg Tablet 2.5 mg G-tube BID Qty: 0 0RF IV with Additives Jevity 1.5 1000 ML 20 mls/hr GT Increase as directed on admission paperwork Ordered By: Brijesh Chaney DO Last Taken: Unknown ondansetron 4 mg tablet,disintegrating 4 mg feeding tube Q8H Qty: 1 0RF clonazepam 0.5 mg tablet 0.5 mg feeding tube BID Qty: 5 0RF metoprolol tartrate 25 mg tablet 12.5 mg feeding tube BID Qty: 1 0RF paroxetine HCl [Paxil] 10 mg/5 mL suspension 10 mg feeding tube DAILY Qty: 250 0RF omeprazole 40 mg capsule,delayed release(DR/EC) 40 mg feeding tube DAILY Qty: 1 0RF Discontinued metoprolol succinate 25 mg tablet extended release 24 hr 25 mg PO DAILY Qty: 90 3RF Referrals / Follow Up: Nahomy Bettencourt MD [Primary Care Provider] - Within 2 Weeks Disposition Disposition (needs filled in before D/C Order can be placed): [facility] Facility
--- NOTE | 2024-03-06 14:45 | DS.PCM_ITS ---
Providers Date of Admission: 03/04/24 Primary Care Physician: Dr. Nahomy Bettencourt MD Consultations 03/04/24 03:31 Consult: Gastroenterology Routine Consulting Provider: [facility] Reason for Consult: GI pulled out, ? put back in ? EMERGENT Consult: No MD Notified: Yes Date Notified: 03/04/24 Time Notified: 02:13 Method of Notification: Text Reason For Visit: GT PULLED OUT Diagnosis Discharge Diagnosis (1) PEG (percutaneous endoscopic gastrostomy) adjustment/replacement/removal: Status: Acute Code(s): Z43.1 - Encounter for attention to gastrostomy Plan Displaced PEG tube * likely self-removed on the * placed on (no formal GI report that I can see) * replaced on the * Patient at high risk for self removal again. Tonic clonic activity * noted 15 seconds of shaking or arms and legs on 03/05 * on divalproex and lamotrigine. 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 * During admission last month, I discontinued the divalproex as it was unclear if it was contributing to her nauseas and vomiting. It was resumed by subsequent physician involved in her care during that admission. Severe protein calorie malnutrition: * Patient with significant nausea and emesis, unable to tolerate oral intake with recent transition to tube feeds via PEG tube however patient was even having emesis with this in place, now PEG tube is been unfortunately removed by patient, nutrition will be consulted again. Chronic conditions: * Hypertension: Continue home regimen including diltiazem, metoprolol, losartan if oral intake is unsuccessful however if not may require transition to IV formulations, PRN hydralazine. * Anxiety and depression: We will continue patient home paroxetine and clonazepam home regimen if oral intake is unsuccessful however if not may require hold and transition to short acting IV Ativan if needed. * PAF: We will continue patient home metoprolol, diltiazem regimen as well as apixaban however if oral intake is unsuccessful then may need to transition to IV formulation and temporarily hold oral anticoagulant therapy. * Parkinson's disease with associated dementia with unclear behavioral disturbance history: Patient during previous admission with significant issues pulling at lines and pulling out access thus it is not surprising unfortunately the patient recently pulled out her G-tube. Given the setting of dementia unfortunately usually patients did not fare well with attempts at G-tube placement thus this may need to be reassessed. Will continue patient home donepezil regimen however if oral intake is unsuccessful then we will hold. Complicates presentation, PT/OT/case management consulted for discharge planning. VTE prophylaxis: not indicated as already on apixaban. Disposition: pending insurance authorization back to SNF. Medications at Discharge Home Medications diltiazem HCl 120 mg capsule,extended release 24 hr (Cartia XT) 120 mg PO DINNER heart 05/23/23 divalproex 250 mg tablet,delayed release 250 mg PO BID #60 tabs 01/19/24 IV with Additives 20 mls/hr GT 03/03/24 acetaminophen 325 mg tablet 650 mg (2 x 325 mg) G-tube Q6H PRN PRN Pain 1-10 Or Fever >100.7 #0 tabs 03/03/24 apixaban 5 mg tablet (Eliquis) 2.5 mg (1/2 x 5 mg) G-tube BID #0 tabs 03/03/24 clonazepam 0.5 mg tablet 0.5 mg feeding tube BID chronic anxiety #5 tabs 03/03/24 donepezil 10 mg tablet 10 mg G-tube QHS #0 tabs 03/03/24 lamotrigine 100 mg tablet 300 mg (3 x 100 mg) G-tube BID #0 tabs 03/03/24 losartan 25 mg tablet 25 mg G-tube QHS #0 tabs 03/03/24 menthol 0.44 %-zinc oxide 20.6 % topical ointment (Calmoseptine) 1 applic topical TID #0 grams 03/03/24 metoclopramide HCl 5 mg tablet 5 mg G-tube Q6H #0 tabs 03/03/24 metoprolol tartrate 25 mg tablet 12.5 mg (1/2 x 25 mg) feeding tube BID #1 TAB 03/03/24 nystatin 100,000 unit/gram topical powder (Nyamyc) 1 applic topical TID #0 grams 03/03/24 omeprazole 40 mg capsule,delayed release 40 mg feeding tube DAILY #1 cap 03/03/24 ondansetron 4 mg disintegrating tablet 4 mg feeding tube Q8H #1 TAB 03/03/24 paroxetine HCl 10 mg/5 mL oral suspension (Paxil) 10 mg (5 mL) feeding tube DAILY #250 mL 03/03/24 Hospital Course Operations None Procedures EGD (with PEG placement. ) Summary of Care Provided Minutes Spent on Discharge: 32 Hospital Course: Pt pulled out her recently placed PEG tube. It was replaced on 03/05. Pt to return to SNF. Medical Records Data Medical Nutrition Assessment Dietitian: Malnutrition Criteria Met Start: 03/04/24 16:29 Freq: Status: Active Protocol: Document 03/04/24 16:30 RMA (Rec: 03/04/24 16:30 RMA [id number]) Nutrition Malnutrition Evidence of Malnutrition Exists Yes Malnutrition (severe): Acute Illness/Injury,Chronic Evidenced By Suboptimal Energy Intake ( Severe),Weight Loss (Severe) Clinical Problem Chronic Disease or Condition Related Malnutrition Etiology severe protein-calorie malnutrition in the context of acute on chronic disease related to altered GI function , persistent N/V Signs/Symptoms as evidenced by ~6% unintentional weight loss x 1 month and oral intake is meeting less than 50% estimated nutrition needs x greater than 1 month now; need for enteral nutrition support and PEG tube pulled out by pt ; BMI 25.0 Status Active Problem Recommendation Dietitian Recommendations/Changes Will continue full liquid diet as ordered. Will add vanilla fortified pudding Q meal tray. Will add 240mL ensure clear w/ breakfast for tolerance. Consider replacement of PEG tube for nutrition as medical able; consult RD for enteral nutrition support assessment and orders. Additional ONS as needed, pt was refusing standard ensure at time of assessment. Weight / BMI Weight Weight: 75.7 kg Body Mass Index (BMI) 25.2 ABG / Lab / Microbiology Data 03/04/24 07:18 03/06/24 06:23 Laboratory: Laboratory Results - last 24 hr 03/04/24 07:18: Hemoglobin A1c 5.1 03/05/24 16:11: POC Glucose 80 03/05/24 17:06: POC Glucose 90 03/05/24 18:04: POC Glucose 98 03/05/24 23:32: POC Glucose 80 03/06/24 05:31: POC Glucose 92 03/06/24 06:23: Sodium 140, Potassium 3.6, Chloride 108 H, Carbon Dioxide 26.0, Anion Gap 6, BUN 9, Creatinine 0.60, Estim Creat Clear Calc 51.86, Est GFR (MDRD) Af Amer 122, Est GFR (MDRD) Non-Af 101, BUN/Creatinine Ratio 15.0, Glucose 93, Calcium 9.2 03/06/24 12:13: POC Glucose 66 L 03/06/24 12:45: POC Glucose 125 H D/C Instructions Discharge Diet: - (Full liquid diet. ) Meaningful Use Info Meaningful Use Meaningful Use Diagnoses (Choose all that apply): None applicable Ischemic Stroke Statin Dosing Therapy Reference: STATIN DOSE THERAPY REFERENCE: * Patients > 75 years receive moderate or high dose statin therapy. * Patients 75 years or YOUNGER should receive HIGH intensity statin dose unless contraindicated. You will be required to document reason for non-treatment if statin daily dose does not meet guidelines. HIGH DOSE STATIN THERAPY DAILY Atorvastatin > than or = to 40 mg Rosuvastatin > than or = to 20 mg Amlodipine + Atorvastatin > than or = to 2.5/40 mg Ezetimibe + Simvastatin 10/80 mg Simvastatin 80mg Discharge Plan Admission Admit Date/Time: 03/04/24 02:12 Primary Reason for Your Visit: dislodged PEG tube. Attending Provider: Steve Tesfaye Primary Care Provider: Nahomy Bettencourt Consulting Providers: Carrie Grant; Brijesh Chaney Discharge Orders/Prescriptions Prescriptions: Continued diltiazem HCl [Cartia XT] 120 mg capsule,extended release 24hr 120 mg PO DINNER divalproex 250 mg tablet,delayed release (DR/EC) 250 mg PO BID Qty: 60 5RF acetaminophen 325 mg Tablet 650 mg G-tube Q6H PRN PRN (Reason: Pain 1-10 Or Fever >100.7) Qty: 0 0RF donepezil 10 mg Tablet 10 mg G-tube QHS Qty: 0 0RF metoclopramide HCl 5 mg Tablet 5 mg G-tube Q6H Qty: 0 0RF losartan 25 mg Tablet 25 mg G-tube QHS Qty: 0 0RF nystatin [Nyamyc] 100,000 unit/gram Powder 1 applic topical TID Qty: 0 0RF Protocol: *Topical Application Instructions APPLICATION INSTRUCTIONS: apply to groin lamotrigine 100 mg Tablet 300 mg G-tube BID Qty: 0 0RF menthol-zinc oxide [Calmoseptine] 0.44-20.6 % Ointment 1 applic topical TID Qty: 0 0RF Protocol: *Topical Application Instructions APPLICATION INSTRUCTIONS: apply to ramona buttocks Eliquis 5 mg Tablet 2.5 mg G-tube BID Qty: 0 0RF IV with Additives Jevity 1.5 1000 ML 20 mls/hr GT Increase as directed on admission paperwork Ordered By: Brijesh Chaney DO Last Taken: Unknown ondansetron 4 mg tablet,disintegrating 4 mg feeding tube Q8H Qty: 1 0RF clonazepam 0.5 mg tablet 0.5 mg feeding tube BID Qty: 5 0RF metoprolol tartrate 25 mg tablet 12.5 mg feeding tube BID Qty: 1 0RF paroxetine HCl [Paxil] 10 mg/5 mL suspension 10 mg feeding tube DAILY Qty: 250 0RF omeprazole 40 mg capsule,delayed release(DR/EC) 40 mg feeding tube DAILY Qty: 1 0RF Discontinued metoprolol succinate 25 mg tablet extended release 24 hr 25 mg PO DAILY Qty: 90 3RF Referrals / Follow Up: Nahomy Bettencourt MD [Primary Care Provider] - Within 2 Weeks Disposition Disposition (needs filled in before D/C Order can be placed): [facility] Facility Charges/Coding Visit Charges Inpatient E&M: 81851 Disch Hosp >30min
--- NOTE | 2024-03-06 14:45 | CASEMGMT ---
Discharge Planning [facility] has obtained auth to admit. SW and physician updated. Coleen Dotson DC Planning Asst.
--- NOTE | 2024-03-06 14:58 | CASEMGMT ---
Social Work Precert has been obtained.? Physician updated and pt is ready for discharge today.? DCA and bedside nurse notified of discharge. Disposition: [facility], skilled level of care under convalescent stay. KEMAR Reynolds
[2024-03-06 15:03] LABS: Bedside Glucose 82 mg/dL (74-106)
--- NOTE | 2024-03-06 15:11 | PHA.DC.MR.R ---
Pharmacy [place] Med Reconciliation Pharmacy Service has performed discharge medication reconciliation for this patient. The patient's discharge medication list was reviewed for discrepancies and discrepancies were resolved. Medications at Discharge Home Medications diltiazem HCl 120 mg capsule,extended release 24 hr (Cartia XT) 120 mg PO DINNER heart 05/23/23 divalproex 250 mg tablet,delayed release 250 mg PO BID #60 tabs 01/19/24 IV with Additives 20 mls/hr GT 03/03/24 acetaminophen 325 mg tablet 650 mg (2 x 325 mg) G-tube Q6H PRN PRN Pain 1-10 Or Fever >100.7 #0 tabs 03/03/24 apixaban 5 mg tablet (Eliquis) 2.5 mg (1/2 x 5 mg) G-tube BID #0 tabs 03/03/24 clonazepam 0.5 mg tablet 0.5 mg feeding tube BID chronic anxiety #5 tabs 03/03/24 donepezil 10 mg tablet 10 mg G-tube QHS #0 tabs 03/03/24 lamotrigine 100 mg tablet 300 mg (3 x 100 mg) G-tube BID #0 tabs 03/03/24 losartan 25 mg tablet 25 mg G-tube QHS #0 tabs 03/03/24 menthol 0.44 %-zinc oxide 20.6 % topical ointment (Calmoseptine) 1 applic topical TID #0 grams 03/03/24 metoclopramide HCl 5 mg tablet 5 mg G-tube Q6H #0 tabs 03/03/24 metoprolol tartrate 25 mg tablet 12.5 mg (1/2 x 25 mg) feeding tube BID #1 TAB 03/03/24 nystatin 100,000 unit/gram topical powder (Nyamyc) 1 applic topical TID #0 grams 03/03/24 omeprazole 40 mg capsule,delayed release 40 mg feeding tube DAILY #1 cap 03/03/24 ondansetron 4 mg disintegrating tablet 4 mg feeding tube Q8H #1 TAB 03/03/24 paroxetine HCl 10 mg/5 mL oral suspension (Paxil) 10 mg (5 mL) feeding tube DAILY #250 mL 03/03/24
--- NOTE | 2024-03-06 16:37 | CASEMGMT ---
Discharge Planning Discharge orders, signed med list, and transport time sent to [facility]. Physicians will transport patient by cot at 8:30p. Nursing, SW, patient, and her updated. Coleen Dotson DC Planning Asst.
[2024-03-06 17:39] LABS: Bedside Glucose 63 mg/dL (74-106)
[2024-03-06 17:39] LABS: Bedside Glucose 126 mg/dL (74-106)
--- NOTE | 2024-03-06 18:56 | NURSING ---
This RN tried to call report to [facility] twice and was put on hold for about 5 minutes each time with no response.
--- NOTE | 2024-03-06 19:12 | NURSING ---
report given to Mar[facility] at the [facility].
[2024-03-06] MEDS: clonazePAM 0.5 MG Tablet PO (21:18)
[2024-03-06] MEDS: Metoprolol Tartrate 25 MG Tablet 12.5 MG PO (21:19)
[2024-03-06] MEDS: Donepezil HCl 10 MG Tablet PO (21:20)
[2024-03-06] MEDS: Losartan Potassium 25 MG Tablet PO (21:21)
[2024-03-06 21:56] LABS: Bedside Glucose 70 mg/dL (74-106)
[2024-03-06 23:03] LABS: Bedside Glucose 96 mg/dL (74-106)
== END 2024-03-07 02:31 | disposition skilled nursing facility (03) ==
LOC: ED 02:22 → MS3 02:40
PROVIDERS: Anesthesiology; Internal Medicine; Internal Medicine Gastroenterology; Admitting Provider Family Medicine; Emergency Provider Emergency Medicine; PCP Family Medicine
PROC: 0DJ08ZZ Inspection of Upper Intestinal Tract, Via Natural or Artificial Opening Endoscopic (ICD-10-PCS; CPT 43235; principal; 2024-03-05 16:55)
DX: K94.23 Gastrostomy malfunction (principal); G20.A1 Parkinson's disease without dyskinesia, without mention of fluctuations; I11.0 Hypertensive heart disease with heart failure; I50.22 Chronic systolic (congestive) heart failure; G30.9 Alzheimer's disease, unspecified; F02.80 Dementia in other diseases classified elsewhere, unspecified severity, without behavioral disturbance, psychotic disturbance, mood disturbance, and anxiety; I48.21 Permanent atrial fibrillation; G40.909 Epilepsy, unspecified, not intractable, without status epilepticus; I42.9 Cardiomyopathy, unspecified; E11.42 Type 2 diabetes mellitus with diabetic polyneuropathy; R13.10 Dysphagia, unspecified; N30.00 Acute cystitis without hematuria; I25.10 Atherosclerotic heart disease of native coronary artery without angina pectoris; K25.9 Gastric ulcer, unspecified as acute or chronic, without hemorrhage or perforation; E43 Unspecified severe protein-calorie malnutrition; Z79.01 Long term (current) use of anticoagulants; R41.82 Altered mental status, unspecified; Z87.891 Personal history of nicotine dependence; Z79.899 Other long term (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; B96.20 Unspecified Escherichia coli [E. coli] as the cause of diseases classified elsewhere; Z68.27 Body mass index [BMI] 27.0-27.9, adult
CPT/HCPCS: 43246; 36415; 80048; 80053; 82962; 83036; 83735; 85025; 92610; 96365; 96366; 96375; 97162; 97166; 97530; 97802; 99221; 99284; J7040; A4216; G0378; J2405

== ENCOUNTER 2024-03-07 03:42 | Emergency (ER) | payer MEDICARE, SELFPAY ==
[2024-03-07 03:42] VITALS: BP 99/47; PULSE 77; RESP 16; TEMP 36.8; O2SAT 95; BMI 26.2
--- NOTE | 2024-03-07 04:05 | RAD_ITS ---
INDICATION: N/V EXAMINATION/TECHNIQUE: X-RAY - XR Abdomen 1 View COMPARISON: No relevant prior comparison study available FINDINGS: Gastric tube is seen to the right of midline. BOWEL GAS PATTERN: Non-obstructive. No bowel or stomach distention. FREE AIR: Not assessed on a single supine view. ORGANOMEGALY: Not seen. CALCIFICATIONS: No abnormal calcifications observed. LOWER CHEST: No acute pathology. BONES AND SOFT TISSUES: No acute pathology. RAD/Abdomen Single View (Portable) IMPRESSION: Non-obstructive bowel gas pattern. Electronically Signed: Suri Yung MD at 6:39 EDT ,
--- OUTSIDE RECORDS SUMMARY | 2024-03-07 04:10 | XMS RPT_ITS | CCD ---
Author Organization [facility] Care Team Providers Care [facility] Checke[facility] Specials Name Role Phone Hernán Stella He Unavailable Unavailable Schuyler LYNN, Beka Franklin Unavailable [facility] Nurse Unavailable Unavailable Afshin Liriano Unavailable Unavailable Judy LYNN, [facility] Primary Care Provider [phone] Zachary Kim MD Primary Care Provider [phone] Judy LYNN, [facility] Primary Care Provider Judy LYNN, [facility] Primary Care Provider [phone] ALA, ZACHARY Primary Care Unavailable EPHRAIM TATE JR Attending Unavailable ALAM, ZACHARY Primary Care Unavailable MARIBEL ROSE Referring Unavailable MARIBEL ROSE Attending Unavailable ALAM, ZACHARY Primary Care Unavailable MARIBEL ROSE Attending Unavailable ALAM, ZACHARY Primary Care Unavailable AZZAM, RAED H Admitting Unavailable AZZAM, RAED H Attending Unavailable ALAM, ZACHARY Primary Care Unavailable LIBBY JIMENEZ Consulting Unavail able CLAY SOLIS Attending Unavailable LAIQ, ZENAB Admitting Unavailable ALAM, ZACHARY Primary Care Unavailable Allergies Allergy Classification Reported Allergen(s) Allergy Type Date of Onset Reaction(s) Facility (4 sources) bacitracin / neomycin / polymyxin b Drug Allergy 07-25-2014 rash [facility] Work Phone: (20 sources) codeine; Translations: [CODEINE] Drug Allergy 07-23-2014 Other: See Comments [facility] Work Phone: (20 sources) bacitracin / neomycin / polymyxin b; Translations: [NEOMYCIN-BACITR [id number]] Drug Allergy 07-25-2014 Rash [facility] (20 sources) levETIRAcetam; Translations: [LEVETIRACETAM] Drug Allergy 07-24-2019 GI Upset [facility] (20 sources) nickel; Translations: [NICKEL] Drug Allergy 06-25-2019 Unknown [facility] Medications Current Medications Medication Drug Class(es) Dates Sig (Normalized) Sig (Original) colchicine 0.6 mg oral tablet (6 sources) Start: 07-28-2022 End: 10-17-2022 take 1 tablet by mouth twice daily colchicine 0.6 mg tablet Take 1 tablet by mouth twice daily for 162 doses. 60 tablet 2 07/28/2022 10/17/2022 Active Comment on above: Take 1 tablet by handy twice daily for 162 doses. oxyCODONE hydrochloride 5 mg oral tablet (2 sources) Opioid Agonist Start: 07-28-2022 End: 08-02-2022 take 1 tablet by mouth every eight hours as needed for pain oxyCODONE IR (ROXICODONE) 5 mg immediate release tablet Indications: Pericardial effusion Take 1 tablet by mouth every 8 hours as needed for pain for up to 5 days. 15 tablet 0 07/28/2022 08/02/2022 Active Comment on above: Take 1 tablet by hanyd every 8 hours as needed for pain for up to 5 days. Completed/Discontinued Medications Medication Drug Class(es) Dates Sig (Normalized) Sig (Original) acetaminophen 325 mg oral tablet (6 sources) Start: 07-28-2022 take 2 tablets by mouth every six hours as needed acetaminophen (TYLENOL) 325 mg tablet Take 2 tablets by mouth every 6 hours as needed for pain. 0 07/28/2022 Active Comment on above: Take 2 tablets by mo [facility] every 6 hours as needed for pain. albuterol 0.83 mg/ml inhalation solution (6 sources) beta2-Adrenergic Agonist Start: 07-28-2022 take 2.5 mg by inhalation every four hours as needed albuterol (PROVENTIL) 2.5 mg /3 mL (0.083 %) nebulizer solution Use 3 mL via nebulizer every 4 hours as needed for wheezing/shortness of breath. 0 07/28/2022 Active Comment on above: Use 3 mL via nebuliz er every 4 hours as needed for wheezing/shortness of breath. amoxicillin 500 mg oral tablet (7 sources) Penicillin-class Antibacterial Amoxicillin 500 mg tablet Take 500 mg by mouth as needed. 0 Suspended Comment on above: Take 500 mg by mouth as needed. ascorbic acid 1000 mg extended release oral tablet (12 sources) Vitamin C Start: 09-06-2016 Ascorbic Acid 1,000 mg TbER Ascorbic Acid VITAMIN C CR CR-TABS One tablet by mouth daily ASCORBIC ACID CR-TABS Maribell Arias PA-C 09-06-2016 [facility] ([id number]) 0 09/06/2016 Active Start: 09-06-2016 take 1 tablet by handy th once daily VITAMIN C CR CR-TABS One tablet by mouth daily ASCORBIC ACID CR-TABS Maribell Arias PA-C Comment on above: Ascorbic Acid VITAMI N C CR CR-TABS One tablet by mouth daily ASCORBIC ACID CR-TABS Maribell Arias PA-C 09-06-2016 [facility] ([id number]) aspirin 325 mg delayed release oral tablet (20 sources) Platelet Aggregation Inhibitor, Nonsteroidal Anti-inflammatory Drug Start: 03-08-2016 take 1 tablet by mouth once daily ASPIRIN EC 325 MG TBEC One tablet by mouth daily ASPIRIN [id number] Beka Payan MD Start: 07-23-2014 End: 09-03-2016 take 1 tablet by mouth once daily ASPIRIN 81 MG TABS One tablet by mouth daily (STOP) ASPIRIN [id number] Beka Payan MD take 1 tablet by handy th once daily aspirin, enteric coated (ASPIRIN, ENTERIC COATED) 81 mg EC tablet Take 81 mg by mouth once daily. 0 Active End: 06-07-2022 take 1 tablet by mouth once daily aspirin 325 mg tablet Take 325 mg by mouth once daily. 0 06/07/2022 Discontinued (Discontinued by Patient) Comment on above: Take 325 mg by mouth once daily. Take 81 mg by mouth once daily. B Complex Vitamins capsule (13 sources) End: 06-08-2022 take 1 capsule by mouth once daily B Complex Vitamins capsule Indications: Polyneuropathy Take 1 capsule by mouth once daily. 0 06/08/2022 Discontinued (Course of therapy completed) take 1 capsule by mouth once cee ly B Complex Vitamins capsule Indications: Polyneuropathy Take 1 capsule by mouth once daily. 0 Active Comment on above: Take 1 capsule by mo [facility] once daily. Biotin (20 sources) Start: 07-23-2014 take 1 tablet by mouth once daily BIOTIN FORTE TABS One tablet by mouth daily BIOTIN TABS [id number] Coleenximena Erwin RN take 1 tablet by mouth once paulino y BIOTIN ORAL Indications: Polyneuropathy Take 1 tablet by mouth once daily. 0 Active BIOTIN ORAL Kori cations: Polyneuropathy Take by mouth. 0 Suspended BIOTIN ORAL Kori cations: Polyneuropathy Take by mouth. 0 Active Comment on above: Take by mouth. Take 1 tablet by handy once daily. cholecalciferol 0.025 mg oral tablet (8 sources) Vitamin D cholecalciferol (VITAMIN D3) 1,000 unit tab tablet Indications: Polyneuropathy Take 1,000 Units by mouth as needed. 0 Active Comment on above: Take 1,000 Units by mouth as needed. clonazePAM 0.5 mg oral tablet (11 sources) Benzodiazepine Start: 2021 End: 2022 clonazePAM (KLONOPIN) 0.5 mg tablet Indications: Seizures (HCC) Take 1 tablet by mouth daily at bedtime for 49 days. Then stop 49 tablet 0 05/06/2022 Suspended Comment on above: Take 1 tablet by handy daily at bedtime for 49 days. Then stop digoxin 0.125 mg oral tablet (6 sources) Cardiac Glycoside Start: 2022 take 1 tablet by mouth once daily digoxin (LANOXIN) 125 mcg (0.125 mg) tablet Take 1 tablet by mouth once daily. 0 07/28/2022 Active Comment on above: Take 1 tablet by handy once daily. dilTIAZem hydrochloride 30 mg oral tablet (1 source) Calcium Channel Jarocho take 4 tablets by mouth twice daily dilTIAZem (CARDIZEM) 30 mg tablet Take 120 mg by mouth twice daily. 0 Suspended Comment on above: Take 120 mg by mouth twice daily. 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 0 07/28/2022 Active Comment on above: Inject 0.4 mL subcut aneously q 24 HR. famotidine 40 mg oral tablet (7 sources) Histamine-2 Receptor Antagonist take 1 tablet by mouth twice daily famotidine (PEPCID) 40 mg tablet Take 40 mg by mouth twice daily. 0 Active famotidine (PEPC ID AC) 20 mg tablet Take 40 mg by mouth twice daily. 0 Suspended Comment on above: Take 40 mg by mouth twice daily. furosemide 40 mg oral tablet (7 sources) Loop Diuretic Start: 07-28-2022 take 1 tablet by mouth once daily furosemide (LASIX) 40 mg tablet Take 1 tablet by mouth once daily. 0 07/28/2022 Active take 1 tablet by mouth twice cee ly furosemide (LASIX) 40 mg tablet Take 40 mg by mouth twice daily. 0 Suspended Comment on above: Take 40 mg by mouth twice daily. Take 1 tablet by handy once daily. gabapentin 600 mg oral tablet (20 sources) Anti-epileptic Agent Start: 07-23-2014 take 1 tablet by mouth once daily GABAPENTIN 300 MG CAPS One tablet by mouth daily GABAPENTIN [id number] Coleen Erwin RN Start: 07-23-2014 take 1 tablet by handy th three times daily GABAPENTIN 300 MG CAPS One tablet by mouth three times daily GABAPENTIN [id number] Maribell Arias PA-C Start: 07-23-2014 End: 03-07-2017 take 1 tablet by mouth once daily at bedtime GABAPENTIN 600 MG TABS One tablet by mouth daily @ bedtime GABAPENTIN [id number] Beka Payan MD glucose 0.45 mg/mg oral gel (6 sources) Start: 07-28-2022 dextrose (TRUEPLUS) 15 gram/32 mL oral gel Take 32 mL by mouth as needed. 0 07/28/2022 Active Comment on above: Take 32 mL by mouth as needed. ketoconazole 20 mg/ml topical cream (8 sources) Azole Antifungal Start: 05-17-2019 ketoconazole (NIZORAL) 2 % cream [id number] -B12-B6 CAPS (4 sources) Start: 03-07-2017 take 1 tablet by mouth once daily METANX CAPS One tablet by mouth daily [id number] E-B12-B6 CAPS [id number] Beka Payan MD lactobacillus rhamnosus gg [id number] unt oral capsule (6 sources) Start: 07-28-2022 take 1 capsule by mouth twice daily lactobacillus rhamnosus (CULTURELLE) 10 billion cell capsule Take 1 capsule by mouth twice daily. 0 07/28/2022 Active Comment on above: Take 1 capsule by [facility] twice daily. lamoTRIgine 100 mg oral tablet (20 sources) Mood Stabilizer, Anti-epileptic Agent Start: 07-28-2022 take 1 tablet by mouth twice daily lamoTRIgine (LAMICTAL) 100 mg tablet Take 1 tablet by mouth twice daily. 0 07/28/2022 Active Start: 06-24-2022 End: 12-21-2022 take 1 tablet by mouth once daily lamoTRIgine (LAMICTAL) 100 mg tablet Take 1 tablet by mouth once daily. 180 tablet 1 06/24/2022 12/21/2022 Suspended Start: 06-24-2022 End: 06-14-2022 take 1 tablet by mouth once daily lamoTRIgine (LAMICTAL) 100 mg tablet Take 1 tablet by mouth once daily. 180 tablet 1 06/24/2022 06/14/2022 Discontinued Start: 06-24-2022 End: 12-21-2022 take 1 tablet by mouth once daily lamoTRIgine (LAMICTAL) 100 mg tablet Take 1 tablet by mouth once daily. 180 tablet 1 06/24/2022 12/21/2022 Active Start: 05-06-2022 lamoTRIgine (L AMICTAL) 25 mg tablet Wk 1: 1 tab in pm. Wk 2: 1 tab in am & 1 tab in pm. Wk 3: 1 tab in am & 2 tabs in pm. Wk 4: 2 tabs in am & 2 tabs in pm. Wk 5: 2 tabs in am & 3 tabs in pm. Wk 6: 3 tabs in am & 3 tabs in pm. Wk 7: 3 tabs in am & 4 tabs in pm. Wk 8: switch to the 100 mg tablet and take 100 mg twice daily. 196 tablet 0 05/06/2022 Suspended Comment on above: Take 1 tablet by handy th once daily. Wk 1: 1 tab in pm. W k 2: 1 tab in am & 1 tab in pm. Wk 3: 1 tab in am & 2 tabs in pm. Wk 4: 2 tabs in am & 2 tabs in pm. Wk 5: 2 tabs in am & 3 tabs in pm. Wk 6: 3 tabs in am & 3 tabs in pm. Wk 7: 3 tabs in am & 4 tabs in pm. Wk 8: switch to the 100 mg tablet and take 100 mg twice daily. Take 1 tablet by handy th twice daily. linaclotide 0.145 mg oral capsule (11 sources) Guanylate Cyclase-C Agonist Start: 09-06-2016 LINZESS 145 MCG CAPS every other day LINACLOTIDE [id number] Maribell Arias PA-C linaclotide (ZANDER ZESS) 145 mcg capsule Take 145 mg by mouth as needed (constipation). 0 Suspended linaclotide (ZANDER ZESS ORAL) Take by mouth. 0 Active Comment on above: Take by mouth. Take 145 mg by mouth as needed (constipation). lisinopril 20 mg oral tablet (20 sources) Angiotensin Converting Enzyme Inhibitor Start: 5 take 1 tablet by mouth once daily LISINOPRIL 20 MG TABS One tablet by mouth daily LISINOPRIL [id number] Coleen Erwin RN take 5 mg by mouth once daily li sinopril (ZESTRIL, PRINIVIL) 20 mg tablet Indications: Polyneuropathy Take 5 mg by mouth once daily. 0 Suspended Comment on above: Take 20 mg by mouth once daily. Take 5 mg by mouth o nce daily. LORazepam 0.5 mg oral tablet (1 source) Benzodiazepine LORazepam (ATIVA N) 0.5 mg Take by mouth three times daily as needed. 0 Active Comment on above: Take by mouth three times daily as needed. losartan potassium 25 mg oral tablet (6 sources) Angiotensin 2 Receptor Jarocho Start: 07-29-19 take 0.5 tablet by mouth once daily losartan (COZAAR) 25 mg tablet Take 0.5 tablets by mouth once daily. 0 07/28/2022 Active Comment on above: Take 0.5 tablets by mouth once daily. magnesium oxide 400 mg oral tablet (4 sources) Start: 09-07-19 17 take 1 tablet by mouth once daily MAGNESIUM OXIDE 400 MG TABS One tablet by mouth daily MAGNESIUM OXIDE [id number] Maribell Arias PA-C mecobalamin 1 mg chewable tablet (7 sources) mecobalamin, vitamin B12, 1,000 mcg chew Take by mouth. 0 Suspended Comment on above: Take by mouth. melatonin 3 mg oral tablet (7 sources) Start: 07-29-19 take 2 tablets by mouth once daily at bedtime melatonin 3 mg tablet Take 2 tablets by mouth daily at bedtime. 0 07/28/2022 Active take 1 tablet by handy once daily at bedtime melatonin 1 mg tablet Take 1 mg by mouth daily at bedtime. 0 Suspended Comment on above: Take 1 mg by mouth d aily at bedtime. Take 2 tablets by mo [facility] daily at bedtime. metFORMIN hydrochloride 500 mg oral tablet (20 sources) Biguanide Start: 05-22-19 20 take 1 tablet by mouth twice daily at mealtime metFORMIN (GLUCOPHAGE) 500 mg tablet Take 500 mg by mouth twice daily with meals. 0 05/22/2019 Suspended Comment on above: Take 500 mg by mouth twice daily with meals. 24 hr metoprolol succinate 25 mg extended release oral tablet (6 sources) beta-Adrenergic Jarocho Start: 07-29-19 23 take 1 tablet by mouth once daily metoprolol succinate ER (TOPROL XL) 25 mg 24 hr tablet Take 1 tablet by mouth once daily. 0 07/28/2022 Active Comment on above: Take 1 tablet by handy th once daily. miconazole nitrate 0.02 mg/mg topical powder (6 sources) Azole Antifungal Start: 07-29-19 miconazole 2 % powder Apply 1 application to affected area twice daily. 0 07/28/2022 Active Comment on above: Apply 1 application to affected area twice daily. nebivolol 5 mg oral tablet (20 sources) Start: 07-24-19 End: 03-07-20 take 1 tablet by mouth twice daily BYSTOLIC 5 MG TABS One tablet by mouth twice daily NEBIVOLOL HCL [id number] Beka Payan MD Start: 07-23-2014 take 1 tablet by handy th once daily BYSTOLIC 5 MG TABS One tablet by mouth daily NEBIVOLOL HCL [id number] Beka Payan MD Start: 07-23-2014 take 1 tablet by handy once daily BYSTOLIC 10 MG TABS One tablet by mouth daily NEBIVOLOL HCL [id number] Beka Payan MD nitroglycerin 0.4 mg subling ual tablet (7 sources) Nitrate Vasodilator nitroglyceri n sublingual (NITROQUICK) 0.4 mg SL tablet Dissolve 0.4 mg under the tongue every 5 minutes as needed for chest pain. 0 Active nitroglycerin mayer blingual (NITROQUICK) 0.3 mg SL tablet Dissolve 0.4 mg under the tongue every 5 minutes as needed for chest pain. 0 Suspended Comment on above: Dissolve 0.4 mg unde r the tongue every 5 minutes as needed for chest pain. OXcarbazepine 150 mg oral tablet (4 sources) Anti-epileptic Agent Start: 01-22-20 End: 04-21-20 take 1 tablet by mouth twice daily OXcarbazepine (TRILEPTAL) 150 mg tablet Take 1 tablet by mouth twice daily. 60 tablet 2 01/21/2022 Active Comment on above: Take 1 tablet by handy twice daily. 24 hr oxybutynin chloride 10 mg extended release oral tablet (8 sources) Cholinergic Muscarinic Antagonist Start: 06-09-19 take 1 tablet by mouth once daily oxybutynin ER (DITROPAN XL) 10 mg 24 hr tablet Take 1 tablet by mouth once daily. 0 06/09/2021 Active Comment on above: Take 1 tablet by handy once daily. potassium chloride 20 meq powder for oral solution (7 sources) take 20 mEq by mouth twice daily potassium chloride (KLOR-CON) 20 mEq packet Take 20 mEq by mouth twice daily. 0 Active Comment on above: Take 20 mEq by mouth twice daily. 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 90 capsule 2 09/17/2021 Active Start: 03-07-2017 take 1 tablet by handy once daily LYRICA 200 MG CAPS One tablet by mouth daily PREGABALIN [id number] Beka Payan MD Comment on above: Take 1 capsule by mo [facility] three times daily for 90 days. Take 1 capsule by mo [facility] three times daily as needed for up to 180 days. riboflavin 100 mg oral tablet (4 sources) Start: 02-03-2015 take 1 tablet by mouth once daily VITAMIN B-2 100 MG TABS One tablet by mouth daily RIBOFLAVIN [id number] Maribell Arias PA-C SENNOSIDES-DOCUSATE SODIUM (8 sources) Start: 07-23-2014 End: 02-03-2015 take 1 tablet by mouth once daily [facility] SENNA PLUS 8.6-50 MG TABS One tablet by mouth daily SENNOSIDES-DOCUSATE SODIUM [id number] Maribell Arias PA-C Start: 07-23-2014 take 1 tablet by handy th once daily [facility] SENNA PLUS 8.6-50 MG TABS One tablet by mouth daily SENNOSIDES-DOCUSATE SODIUM [id number] Coleen aikenokot-s (6 sources) Start: 02-03-2015 End: 09-06-2016 take 1 tablet by mouth once daily as needed STOOL SOFTENER 100 MG TABS One tablet by mouth daily as needed DOCUSATE SODIUM [id number] Maribell Arias PA-C Start: 02-03-2015 take 1 tablet by handy th once daily as needed STOOL SOFTENER 100 MG TABS One tablet by mouth daily as needed DOCUSATE SODIUM [id number] Maribell Arias PA-C tamsulosin hydrochloride 0.4 mg oral capsule (1 source) alpha-Adrenergic Jarocho take 0.4 mg by mouth once daily tamsulosin (FLOMAX) 0.4 mg Take 0.4 mg by mouth once daily. Daily at 1730 0 Suspended Comment on above: Take 0.4 mg by mouth once daily. 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 30 tablet 2 09/17/2021 Active Comment on above: Take 600 mg by mouth once daily. traMADol hydrochloride 50 mg oral tablet (18 sources) Opioid Agonist Start: 03-07-20 17 take 1 tablet by mouth once daily as needed TRAMADOL HCL 50 MG TABS One tablet by mouth daily as needed TRAMADOL HCL [id number] Beka Payan MD take 1 tablet by handy th every six hours as needed traMADol (ULTRAM) 50 mg tablet Take 50 mg by mouth every 6 hours as needed for pain. 0 Suspended End: 06-08-2022 take 1 tablet by mouth every twelve hours as needed traMADol (ULTRAM) 50 mg tablet Take 50 mg by mouth twice daily as needed. 0 06/08/2022 Discontinued (Course of therapy completed) Comment on above: Take 50 mg by mouth twice daily as neede d. Take 50 mg by mouth every 6 hours as needed for pain. vitamin b12 1 mg oral tablet (19 sources) Vitamin B12 Start: 07-24-19 15 take 3-10 tablets by mouth once daily cyanocobalamin (VITAMIN B-12) 1,000 mcg tab Vitamin B 12 VITAMIN B-12 1000 MCG TABS One tablet by mouth daily CYANOCOBALAMIN [id number] Coleen Erwin RN 07-23-2014 [facility] ([id number]) 0 07/23/2014 Active Comment on above: Vitamin B 12 VITAMIN B-12 1000 MCG TABS One tablet by mouth daily CYANOCOBALAMIN [id number] Coleen Erwin RN 07-23-2014 [facility] ([id number]) Take 1,000 mcg by [facility] once daily. vitamin b6 100 mg oral tablet (8 sources) Start: 02-04-20 15 End: 09-07-19 17 take 1 tablet by mouth once daily VITAMIN B-6 100 MG TABS One tablet by mouth daily PYRIDOXINE HCL [id number] Maribell Arias PA-C vitamin d 1000 unt oral tablet (4 sources) Start: 07-24-19 15 take 1 tablet by mouth once daily VITAMIN D 1000 UNIT TABS One tablet by mouth daily CHOLECALCIFEROL [id number] Coleen Erwin RN Problems Active Problems Problem Classification Problem Date Documented Da te Episodic/Chronic Cardiac dysrhythmias (9 sources) Permanent atrial fibrillation ; Translations: [Atrial fibrillation] Onset: 07-23-2014 08-06-2015 Chronic Congestive heart failure; nonhypertensive (1 source) Acute systolic (congestive) heart failure; Translations: [Acute systolic CHF (congestive heart failure) (HCC)] Onset: 07-16-2022 Chronic Diabetes mellitus with complications (20 sources) 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; Translations: [Neuropathy due to type 2 diabetes mellitus] Onset: 07-23-2014 07-23-2014 Chronic Essential hypertension (4 sources) Hypertensive disorder; Translations: [Essential (primary) hypertension] Onset: 07-23-2014 07-23-2014 Chronic Other nervous system disorders (1 source) Other symptoms and signs involving cognitive functions and awareness; Translations: [Other signs and symptoms involving cognition] Episodic Other nutritional; endocrine; and metabolic disorders (7 sources) Body mass index (BMI) 31.0-31.9, adult; Translations: [Body mass index (BMI) 30.0-30.9, adult] Onset: 07-25-2014 08-06-2015 Chronic Other nutritional; endocrine; and metabolic disorders (1 source) Body mass index (BMI) 30.0-30.9, adult; Translations: [Body mass index (BMI) 30.0-30.9, adult] Onset: 07-25-2014 02-03-2015 Chronic Other nutritional; endocrine; and metabolic disorders (7 sources) Obese class I; Translations: [Obesity, unspecified] Onset: 07-20-2022 07-20-2022 Chronic Mariza-; endo-; and myocarditis; cardiomyopathy (except that caused by tuberculosis or sexually transmitted disease) (1 source) Other cardiomyopathies; Translations: [Non-ischemic cardiomyopathy (HCC)] Onset: 07-16-2022 Chronic Mariza-; endo-; and myocarditis; cardiomyopathy (except that caused by tuberculosis or sexually transmitted disease) (2 sources) Pericardial effusion; Translations: [Pericardial effusion] Onset: 07-16-2022 07-16-2022 Episodic Pleurisy; pneumothorax; pulmonary collapse (2 sources) Pleural effusion; Translations: [Pleural effusion, not elsewhere classified] Onset: 07-16-2022 Episodic Residual codes; unclassified (2 sources) Memory impairment; Translations: [Other amnesia] Episodic Residual codes; unclassified (7 sources) At risk of delirium; Translations: [Other specified personal risk factors, not elsewhere classified] Onset: 07-23-2022 07-23-2022 Episodic Respiratory failure; insufficiency; arrest (adult) (1 source) Acute respiratory failure with hypoxia; Translations: [Acute respiratory failure with hypoxia ([facility])] Onset: 07-16-2022 Episodic Syncope (1 source) Syncope and collapse; Translations: [Syncope and collapse] Episodic Unclassified (8 sources) Long-term 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; Translations: [Other long-term (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] Onset: 07-23-2014 08-06-2015 Past or Other Problems Problem Classification Problem Date Documented Da te Episodic/Chronic Epilepsy; convulsions (20 sources) Seizure; Translations: [Unspecified convulsions] Onset: 05-05-2022 Episodic Other nutritional; endocrine; and metabolic disorders (8 sources) Body mass index (BMI) 29.0-29.9, adult; Translations: [Body mass index (BMI) 29.0-29.9, adult] Onset: 07-25-2014 09-06-2016 Episodic Residual codes; unclassified (1 source) Other amnesia; Translations: [Memory problem] Onset: 01-21-2022 Episodic Spondylosis; intervertebral disc disorders; other back problems (4 sources) Spinal stenosis of lumbar region; Translations: [Spinal stenosis, lumbar region without neurogenic claudication] Onset: 01-21-2022 Episodic Results Test Name Value Interpretation Reference Range Facility [facility] 09-08-2022 [facility] Normal [facility] 08-19-2022 [facility] Normal [facility] OPERATIVE NOon 08-19-2022 OPERATIVE NO [facility] ISABELLE MEDRANO ([id number]) 1940 F Date Time Provider Department 08/11/22 [facility] NE50MN During your visit today, we recorded the following information about you: Lorena Murray 08/11/2022 8:11 AM Signed OUTSIDE LAB REPORT FACILITY NAME [facility] PHONE/FAX [phone] COLLECTION DATE AND TIME: 08/05/22 0525 Uploaded to [facility] Hardy Oneal RN 08/11/2022 9:01 AM Signed Lab drawn at facility Current dose: LTG 100mg BID ROMULO from facility asking to increase dose She reports seizure 08/04. Looks like reported to Neurological practice and Dr. Hughes ordered LTG level. She reports patient was in hospital for long time with multiple health problems. 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 Reviewed recommendations below. 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 She reports they are not allowed to video tape any of the patients due to HIPAA. She will put on patients discharge orders that she is to schedule an office visit with Dr. Hughes. Provided office phone to report any other activity. Hardy Oneal RN Allergies As of Date: 08/11/2022 Noted Allergy Reaction KEPPRA (LEVETIRACETAM) 07/24/2019 8 - GI Upset [id number] 07/25/2014 2 - Rash CODEINE 07/29/2015 14 - Other: See Comments Comments: makes me ill NICKEL 06/25/2019 16 - Unknown Date Reviewed: 07/27/2022 Reviewed by: Keri Petit RN - Fully Assessed Reason for Visit: Outside Labs Results [437] Cmt: [place]/Lamictal Prescriptions as of 08/11/2022 - dextrose (TRUEPLUS) 15 gram/32 mL oral gel Take 32 mL by mouth as needed. - acetaminophen (TYLENOL) 325 mg tablet Take 2 tablets by mouth every 6 hours as needed for pain. - lamoTRIgine (LAMICTAL) 100 mg tablet Take 1 tablet by mouth twice daily. - lactobacillus rhamnosus (CULTURELLE) 10 billion cell capsule Take 1 capsule by mouth twice daily. - losartan (COZAAR) 25 mg tablet Take 0.5 tablets by mouth once daily. - albuterol (PROVENTIL) 2.5 mg /3 mL (0.083 %) nebulizer solution Use 3 mL via nebulizer every 4 hours as needed for wheezing/shortness of breath. - metoprolol succinate ER (TOPROL XL) 25 mg 24 hr tablet Take 1 tablet by mouth once daily. - colchicine 0.6 mg tablet Take 1 tablet by mouth twice daily for 162 doses. - digoxin (LANOXIN) 125 mcg (0.125 mg) tablet Take 1 tablet by mouth once daily. - enoxaparin (LOVENOX) 40 mg/0.4 mL Inject 0.4 mL subcutaneously q 24 HR. - furosemide (LASIX) 40 mg tablet Take 1 tablet by mouth once daily. - miconazole 2 % powder Apply 1 application to affected area twice daily. - melatonin 3 mg tablet Take 2 tablets by mouth daily at bedtime. - famotidine (PEPCID) 40 mg tablet Take 40 mg by mouth twice daily. - nitroglycerin sublingual (NITROQUICK) 0.4 mg SL tablet Dissolve 0.4 mg under the tongue every 5 minutes as needed for chest pain. - metFORMIN (GLUCOPHAGE) 500 mg tablet Take 500 mg by mouth twice daily with meals. - potassium chloride (KLOR-CON) 20 mEq packet Take 20 mEq by mouth twice daily. - aspirin, enteric coated (ASPIRIN, ENTERIC COATED) 81 mg EC tablet Take 81 mg by mouth once daily. - cyanocobalamin (VITAMIN B-12) 1,000 mcg tab Take 1,000 mcg by mouth once daily. - DULoxetine (CYMBALTA) 30 mg capsule take 1 capsule by mouth once daily - BIOTIN ORAL Take 1 tablet by mouth once daily. Problem List As Of Date 08/11/2022 Noted Resolved 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*04/28/2020 Seizures (HCC) [R56.9] 05/05/2022 Nonepileptic episode (HCC) [R56.9] 05/06/2022 Pericardial effusion [I31.39] 07/16/2022 07/28/2022 Obesity, Class I, BMI 30-34.9 [E66.9] 07/20/2022 At risk for delirium [Z91.89] 07/23/2022 Encounter Status:Closed by HARDY ONEAL on 08/11/22 [facility] Telephone (NE50MN) -------- ISABELLE MEDRANO ([id number]) 1940 F Date Time Provider Department 08/05/22 AL[facility] HUGHES NE50MN During your visit today, we recorded the following information about you: Zuleyma Matthew Sec 08/05/2022 2:35 PM Signed General call : Full name of person calling: Karol Ann CNP Relationship to patient: [facility] Phone # : [phone] Reason for call: Per request of Hardy Oneal RN, Lamictal level was drawn today. Results are expected in 3 - 5 days. Fax number was given. Patient of Dr. Saul Oneal RN 08/06/2022 10:02 AM Signed Noted SHANTE Rasconcy Trevor 08/10/2022 3:50 PM Signed Anca Ann w/ [facility] re Lamictal results; will fax results. Pt had seizure 5 days ago; [phone]. Allergies As of Date: 08/05/2022 Noted Allergy Reaction KEPPRA (LEVETIRACETAM) 07/24/2019 8 - GI Upset [id number] 07/25/2014 2 - Rash CODEINE 07/29/2015 14 - Other: See Comments Comments: makes me ill NICKEL 06/25/2019 16 - Unknown Date Reviewed: 07/27/2022 Reviewed by: Keri Petit RN - Fully Assessed Reason for Visit: Other [Other] Cmt: Call from [facility] about Lamictal level being drawn Prescriptions as of 08/10/2022 - dextrose (TRUEPLUS) 15 gram/32 mL oral gel Take 32 mL by mouth as needed. - acetaminophen (TYLENOL) 325 mg tablet Take 2 tablets by mouth every 6 hours as needed for pain. - lamoTRIgine (LAMICTAL) 100 mg tablet Take 1 tablet by mouth twice daily. - lactobacillus rhamnosus (CULTURELLE) 10 billion cell capsule Take 1 capsule by mouth twice daily. - losartan (COZAAR) 25 mg tablet Take 0.5 tablets by mouth once daily. - albuterol (PROVENTIL) 2.5 mg /3 mL (0.083 %) nebulizer solution Use 3 mL via nebulizer every 4 hours as needed for wheezing/shortness of breath. - metoprolol succinate ER (TOPROL XL) 25 mg 24 hr tablet Take 1 tablet by mouth once daily. - colchicine 0.6 mg tablet Take 1 tablet by mouth twice daily for 162 doses. - digoxin (LANOXIN) 125 mcg (0.125 mg) tablet Take 1 tablet by mouth once daily. - enoxaparin (LOVENOX) 40 mg/0.4 mL Inject 0.4 mL subcutaneously q 24 HR. - furosemide (LASIX) 40 mg tablet Take 1 tablet by mouth once daily. - miconazole 2 % powder Apply 1 application to affected area twice daily. - melatonin 3 mg tablet Take 2 tablets by mouth daily at bedtime. - famotidine (PEPCID) 40 mg tablet Take 40 mg by mouth twice daily. - nitroglycerin sublingual (NITROQUICK) 0.4 mg SL tablet Dissolve 0.4 mg under the tongue every 5 minutes as needed for chest pain. - metFORMIN (GLUCOPHAGE) 500 mg tablet Take 500 mg by mouth twice daily with meals. - potassium chloride (KLOR-CON) 20 mEq packet Take 20 mEq by mouth twice daily. - aspirin, enteric coated (ASPIRIN, ENTERIC COATED) 81 mg EC tablet Take 81 mg by mouth once daily. - cyanocobalamin (VITAMIN B-12) 1,000 mcg tab Take 1,000 mcg by mouth once daily. - DULoxetine (CYMBALTA) 30 mg capsule take 1 capsule by mouth once daily - BIOTIN ORAL Take 1 tablet by mouth once daily. 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/28/2020 Seizures (HCC) [R56.9] 05/05/2022 Nonepileptic episode (HCC) [R56.9] 05/06/2022 Pericardial effusion [I31.39] 07/16/2022 07/28/2022 Obesity, Class I, BMI 30-34.9 [E66.9] 07/20/2022 At risk for delirium [Z91.89] 07/23/2022 Encounter Status:Closed by HARDY ONEAL on 08/06/22 [facility] Babak 08-04-2022 RAUL Telephone (PATRICK) -------- ISABELLE MEDRANO ([id number]) 1940 F Date Time Provider Department 08/04/22 KASH SILVESTRE, EPHRAIM WINN During your visit today, we recorded the following information about you: Maria T Barba 08/04/2022 11:19 AM Signed [facility] calling to notify office that pt had a seizure. 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 Anca Ann, CROW [phone] Coco Saha LPN 08/04/2022 12:12 PM Signed I am going to call [facility] for information to give to you for a better assessment. INDIGO Dominguez LPN 08/04/2022 12:12 PM Signed Called and spoke with Lia Ann CNP at [place]. This is what happened: Pt had not been feeling well this morning, had diarrhea. Had headache around 10 am. Nurse gave her tylenol. Nurse aid went in and saw her shaking, had seizure for 10-15 minutes. Was alert and able to say 'seizure'. Vital signs normal, pulse was up. Okay now. PCP Lia Ann states pt is on low dose of Lamictal, wants to know if they should we increase dose? Or add Depakote? Is going to get blood work tomorrow morning. You can call Lia back at [phone]- cell phone. Hardy Oneal RN 08/04/2022 4:08 PM Signed I spoke with Lia. We discussed patient having LTG level drawn tomorrow a.m. Reviewed trough level instructions. She will call office with results. Hardy Oneal RN Allergies As of Date: 08/04/2022 Noted Allergy Reaction KEPPRA (LEVETIRACETAM) 07/24/2019 8 - GI Upset [id number] 07/25/2014 2 - Rash CODEINE 07/29/2015 14 - Other: See Comments Comments: makes me ill NICKEL 06/25/2019 16 - Unknown Date Reviewed: 07/27/2022 Reviewed by: Keri Petit RN - Fully Assessed Reason for Visit: Patient Update [1234] Prescriptions as of 08/04/2022 - dextrose (TRUEPLUS) 15 gram/32 mL oral gel Take 32 mL by mouth as needed. - acetaminophen (TYLENOL) 325 mg tablet Take 2 tablets by mouth every 6 hours as needed for pain. - lamoTRIgine (LAMICTAL) 100 mg tablet Take 1 tablet by mouth twice daily. - lactobacillus rhamnosus (CULTURELLE) 10 billion cell capsule Take 1 capsule by mouth twice daily. - losartan (COZAAR) 25 mg tablet Take 0.5 tablets by mouth once daily. - albuterol (PROVENTIL) 2.5 mg /3 mL (0.083 %) nebulizer solution Use 3 mL via nebulizer every 4 hours as needed for wheezing/shortness of breath. - metoprolol succinate ER (TOPROL XL) 25 mg 24 hr tablet Take 1 tablet by mouth once daily. - colchicine 0.6 mg tablet Take 1 tablet by mouth twice daily for 162 doses. - digoxin (LANOXIN) 125 mcg (0.125 mg) tablet Take 1 tablet by mouth once daily. - enoxaparin (LOVENOX) 40 mg/0.4 mL Inject 0.4 mL subcutaneously q 24 HR. - furosemide (LASIX) 40 mg tablet Take 1 tablet by mouth once daily. - miconazole 2 % powder Apply 1 application to affected area twice daily. - melatonin 3 mg tablet Take 2 tablets by mouth daily at bedtime. - famotidine (PEPCID) 40 mg tablet Take 40 mg by mouth twice daily. - nitroglycerin sublingual (NITROQUICK) 0.4 mg SL tablet Dissolve 0.4 mg under the tongue every 5 minutes as needed for chest pain. - metFORMIN (GLUCOPHAGE) 500 mg tablet Take 500 mg by mouth twice daily with meals. - potassium chloride (KLOR-CON) 20 mEq packet Take 20 mEq by mouth twice daily. - aspirin, enteric coated (ASPIRIN, ENTERIC COATED) 81 mg EC tablet Take 81 mg by mouth once daily. - cyanocobalamin (VITAMIN B-12) 1,000 mcg tab Take 1,000 mcg by mouth once daily. - DULoxetine (CYMBALTA) 30 mg capsule take 1 capsule by mouth once daily - BIOTIN ORAL Take 1 tablet by mouth once daily. 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*04/28/2020 Seizures (HCC) [R56.9] 05/05/2022 Nonepileptic episode (HCC) [R56.9] 05/06/2022 Pericardial effusion [I31.39] 07/16/2022 07/28/2022 Obesity, Class I, BMI 30-34.9 [E66.9] 07/20/2022 At risk for delirium [Z91.89] 07/23/2022 Encounter Status:Closed by HARDY ONEAL on 08/04/22 Normal [facility] CNPNon 07-30-2022 CNPN Normal [facility] CNPNon 07-29-2022 CNPN Normal [facility] ALLIED HEALTHon 07-28-2022 ALLIED HEALTH Normal [facility] CASE MANAGEMon 07-28-2022 CASE MANAGEM Normal [facility] CBC W Auto Differential pane l (Bld)on 07-28-2022 Basophils (Bld) [#/Vol] 0.05 10*3/uL Normal <0.11 [facility] Comment on above: Order Comment: Speci men Type: BLOOD SPECIMENOrdering Facility: [facility] Address: [address] [place] [address] Performed By: #### 5 7021-8 ####[facility] LABORATORYCLIA [id number] [place] [address] [place] Basophils/100 WBC (Bld) 0.6 % Normal [facility] Comment on above: Order Comment: Speci men Type: BLOOD SPECIMENOrdering Facility: [facility] Address: [address] [place] [address] Performed By: #### 5 7021-8 ####[facility] LABORATORYCLIA [id number] [place] [address] [place] Differential cell count method Nom (Bld) Auto Normal [facility] Comment on above: Order Comment: Speci men Type: BLOOD SPECIMENOrdering Facility: [facility] Address: [address] [place] [address] Performed By: #### 5 7021-8 ####[facility]ORATORYCLIA [id number] [place] [address] [place] Eosinophils (Bld) [#/Vol] 0.36 10*3/uL Normal <0.46 [facility] Comment on above: Order Comment: Speci men Type: BLOOD SPECIMENOrdering Facility: [facility] Address: [address] [place] [address] Performed By: #### 5 7021-8 ####[facility]ORATORYCLIA [id number] [address] OF [facility] Eosinophils/100 WBC (Bld) 4.3 % Normal [facility] Comment on above: Order Comment: Speci men Type: BLOOD SPECIMENOrdering Facility: [facility] Address: [address] [place] [address] Performed By: #### 5 7021-8 ####[facility]ATORYCLIA [id number] [address] [place] Erythrocyte distribution width (RBC) [Ratio] 16.0 % High 11.5-15.0 [facility] Comment on above: Order Comment: Speci men Type: BLOOD SPECIMENOrdering Facility: [facility] Address: [address] [place] [address] Performed By: #### 5 7021-8 ####[facility]ATORYCLIA [id number] [address] Hematocrit (Bld) [Volume fraction] 34.0 % Low 36.0-46.0 [facility] Comment on above: Order Comment: Speci men Type: BLOOD SPECIMENOrdering Facility: [facility] Address: [address] [place] [address] Performed By: #### 5 7021-8 ####[facility]ATORYCLIA [id number] [address] OF [place] Hemoglobin (Bld) [Mass/Vol] 10.2 g/dL Low 11.5-15.5 [facility] Comment on above: Order Comment: Speci men Type: BLOOD SPECIMENOrdering Facility: [facility] Address: [address] [place] [address] Performed By: #### 5 7021-8 ####[facility]ATORYCLIA [id number] OF [place] Immature granulocytes (Bld) [#/Vol] 0.07 10*3/uL Normal <0.10 [facility] Comment on above: Order Comment: Speci men Type: BLOOD SPECIMENOrdering Facility: [facility] Address: [address] [place] [address] Performed By: #### 5 7021-8 ####[facility]ATORYCLIA [id number] [address] STATES OF [facility] Immature granulocytes/100 WBC (Bld) 0.8 % Normal [facility] Comment on above: Order Comment: Speci men Type: BLOOD SPECIMENOrdering Facility: [facility] Address: [address] [place] [address] Performed By: #### 5 7021-8 ####[facility]ORYCLIA [id number] [address] [place] Lymphocytes (Bld) [#/Vol] 1.16 10*3/uL Normal 1.00-4.00 [facility] Comment on above: Order Comment: Speci men Type: BLOOD SPECIMENOrdering Facility: [facility] Address: [address] [place] [address] Performed By: #### 5 7021-8 ####[facility]ORYCLIA [id number] [address] Lymphocytes/100 WBC (Bld) 13.7 % Normal [facility] Comment on above: Order Comment: Speci men Type: BLOOD SPECIMENOrdering Facility: [facility] Address: [address] [place] [address] Performed By: #### 5 7021-8 ####[facility]ORYCLIA [id number] [address] [place] MCH (RBC) [Entitic mass] 30.6 pg Normal 26.0-34.0 [facility] Comment on above: Order Comment: Speci men Type: BLOOD SPECIMENOrdering Facility: [facility] Address: [address] [place] [address] Performed By: #### 5 7021-8 ####[facility]ATORYCLIA [id number] [address] [place] [facility] MCHC (RBC) [Mass/Vol] 30.0 g/dL Low 30.5-36.0 [facility] Comment on above: Order Comment: Speci men Type: BLOOD SPECIMENOrdering Facility: [facility] Address: [address] [place] [address] Performed By: #### 5 7021-8 ####[facility]ATORYCLIA [id number] [address] [place] MCV (RBC) [Entitic vol] 102.1 fL High 80.0-100.0 [facility] Comment on above: Order Comment: Speci men Type: BLOOD SPECIMENOrdering Facility: [facility] Address: [address] [place] [address] Performed By: #### 5 7021-8 ####[facility]ORYCLIA [id number] [address] [place] Monocytes (Bld) [#/Vol] 0.72 10*3/uL Normal <0.87 [facility] Comment on above: Order Comment: Speci men Type: BLOOD SPECIMENOrdering Facility: [facility] Address: [address] [place] [address] Performed By: #### 5 7021-8 ####[facility]ORYCLIA [id number] [address] Monocytes/100 WBC (Bld) 8.5 % Normal [facility] Comment on above: Order Comment: Speci men Type: BLOOD SPECIMENOrdering Facility: [facility] Address: [address] [place] [address] Performed By: #### 5 7021-8 ####[facility]ATORYCLIA [id number] [address] [place] Neutrophils (Bld) [#/Vol] 6.08 10*3/uL Normal 1.45-7.50 [facility] Comment on above: Order Comment: Speci men Type: BLOOD SPECIMENOrdering Facility: [facility] Address: [address] [place] [address] Performed By: #### 5 7021-8 ####[facility]ATORYCLIA [id number] [address] Neutrophils/100 WBC (Bld) 72.1 % Normal [facility] Comment on above: Order Comment: Speci men Type: BLOOD SPECIMENOrdering Facility: [facility] Address: [address] [place] [address] Performed By: #### 5 7021-8 ####[facility]ATORYCLIA [id number] [address] OF [place] Nucleated RBC (Bld) [#/Vol] 10*3/uL Normal <0.01 [facility] Comment on above: Order Comment: Speci men Type: BLOOD SPECIMENOrdering Facility: [facility] Address: [address] [place] [address] Performed By: #### 5 7021-8 ####[facility]ATORYCLIA [id number] [address] [place] [facility] Nucleated RBC/100 WBC (Bld) [Ratio] 0.0 /100 WBC Normal [facility] Comment on above: Order Comment: Speci men Type: BLOOD SPECIMENOrdering Facility: [facility] Address: [address] [place] [address] Performed By: #### 5 7021-8 ####[facility]ORYCLIA [id number] [address] [place] Platelet mean volume (Bld) [Entitic vol] 9.2 fL Normal 9.0-12.7 [facility] Comment on above: Order Comment: Speci men Type: BLOOD SPECIMENOrdering Facility: [facility] Address: [address] [place] [address] Performed By: #### 5 7021-8 ####[facility]ATORYCLIA [id number] [address] OF [place] Platelets (Bld) [#/Vol] 297 10*3/uL Normal 150-400 [facility] Comment on above: Order Comment: Speci men Type: BLOOD SPECIMENOrdering Facility: [facility] Address: [address] [address] Performed By: #### 5 7021-8 ####[facility]ATORYCLIA [id number] [place] [address] [place] RBC (Bld) [#/Vol] 3.33 10*6/uL Low 3.90-5.20 [facility] Comment on above: Order Comment: Speci men Type: BLOOD SPECIMENOrdering Facility: [facility] Address: [address] [place] [address] Performed By: #### 5 7021-8 ####[facility]ORYCLIA [id number] [address] [place] WBC (Bld) [#/Vol] 8.44 10*3/uL Normal 3.70-11.00 [facility] Comment on above: Order Comment: Speci men Type: BLOOD SPECIMENOrdering Facility: [facility] Address: [address] [place] [address] Performed By: #### 5 7021-8 ####[facility]ATORYCLIA [id number] [address] [place] CNDSon 07-28-2022 CNDS Normal [facility] XR CHEST 1V FRONTALon 2022 XR CHEST 1V FRONTAL Normal [facility] ALLIED HEALTHon 07-27-2022 ALLIED HEALTH Normal [facility] CASE MANAGEMon 07-27-2022 CASE MANAGEM Normal [facility] CASE MANAGEM Normal [facility] CASE MANAGEM Normal [facility] CBC W Auto Differential pane l (Bld)on 07-27-2022 Basophils (Bld) [#/Vol] 0.04 10*3/uL Normal <0.11 [facility] Comment on above: Order Comment: Speci men Type: BLOOD SPECIMENOrdering Facility: [facility] Address: [address] [place] [address] Performed By: #### 5 7021-8 ####[facility]ATORYCLIA [id number] [address] Basophils/100 WBC (Bld) 0.4 % Normal [facility] Comment on above: Order Comment: Speci men Type: BLOOD SPECIMENOrdering Facility: [facility] Address: [address] [place] [address] Performed By: #### 5 7021-8 ####[facility]ORYCLIA [id number] [address] OF [place] Differential cell count method Nom (Bld) Auto Normal [facility] Comment on above: Order Comment: Speci men Type: BLOOD SPECIMENOrdering Facility: [facility] Address: [address] [place] [address] Performed By: #### 5 7021-8 ####[facility]ORYCLIA [id number] [address] [place] Eosinophils (Bld) [#/Vol] 0.24 10*3/uL Normal <0.46 [facility] Comment on above: Order Comment: Speci men Type: BLOOD SPECIMENOrdering Facility: [facility] Address: [address] [place] [address] Performed By: #### 5 7021-8 ####[facility]ORYCLIA [id number] [address] Eosinophils/100 WBC (Bld) 2.5 % Normal [facility] Comment on above: Order Comment: Speci men Type: BLOOD SPECIMENOrdering Facility: [facility] Address: [address] [place] [address] Performed By: #### 5 7021-8 ####[facility]ORYCLIA [id number] [address] Erythrocyte distribution width (RBC) [Ratio] 15.7 % High 11.5-15.0 [facility] Comment on above: Order Comment: Speci men Type: BLOOD SPECIMENOrdering Facility: [facility] Address: [address] [address] Performed By: #### 5 7021-8 ####[facility]ATORYCLIA [id number] [address] OF [facility] Hematocrit (Bld) [Volume fraction] 31.6 % Low 36.0-46.0 [facility] Comment on above: Order Comment: Speci men Type: BLOOD SPECIMENOrdering Facility: [facility] Address: [address] [place] [address] Performed By: #### 5 7021-8 ####[facility] LABORATORYCLIA [id number] [address] [place] Hemoglobin (Bld) [Mass/Vol] 9.8 g/dL Low 11.5-15.5 [facility] Comment on above: Order Comment: Speci men Type: BLOOD SPECIMENOrdering Facility: [facility] Address: [address] [place] [address] Performed By: #### 5 7021-8 ####[facility] LABORATORYCLIA [id number] [address] [place] Immature granulocytes (Bld) [#/Vol] 0.09 10*3/uL Normal <0.10 [facility] Comment on above: Order Comment: Speci men Type: BLOOD SPECIMENOrdering Facility: [facility] Address: [address] [place] [address] Performed By: #### 5 7021-8 ####[facility]ORATORYCLIA [id number] [address] [place] Immature granulocytes/100 WBC (Bld) 1.0 % Normal [facility] Comment on above: Order Comment: Speci men Type: BLOOD SPECIMENOrdering Facility: [facility] Address: [address] [place] [address] Performed By: #### 5 7021-8 ####[facility]ORATORYCLIA [id number] [address] [place] Lymphocytes (Bld) [#/Vol] 1.34 10*3/uL Normal 1.00-4.00 [facility] Comment on above: Order Comment: Speci men Type: BLOOD SPECIMENOrdering Facility: [facility] Address: [address] [place] [address] Performed By: #### 5 7021-8 ####[facility]ORATORYCLIA [id number] [address] Lymphocytes/100 WBC (Bld) 14.2 % Normal [facility] Comment on above: Order Comment: Speci men Type: BLOOD SPECIMENOrdering Facility: [facility] Address: [address] [place] [address] Performed By: #### 5 7021-8 ####[facility]ATORYCLIA [id number] [address] [place] MCH (RBC) [Entitic mass] 31.2 pg Normal 26.0-34.0 [facility] Comment on above: Order Comment: Speci men Type: BLOOD SPECIMENOrdering Facility: [facility] Address: [address] [place] [address] Performed By: #### 5 7021-8 ####[facility]ATORYCLIA [id number] [address] [place] [facility] MCHC (RBC) [Mass/Vol] 31.0 g/dL Normal 30.5-36.0 [facility] Comment on above: Order Comment: Speci men Type: BLOOD SPECIMENOrdering Facility: [facility] Address: [address] [place] [address] Performed By: #### 5 7021-8 ####[facility]ATORYCLIA [id number] [address] [place] MCV (RBC) [Entitic vol] 100.6 fL High 80.0-100.0 [facility] Comment on above: Order Comment: Speci men Type: BLOOD SPECIMENOrdering Facility: [facility] Address: [address] [place] [address] Performed By: #### 5 7021-8 ####[facility]ATORYCLIA [id number] [place] [address] [place] Monocytes (Bld) [#/Vol] 0.74 10*3/uL Normal <0.87 [facility] Comment on above: Order Comment: Speci men Type: BLOOD SPECIMENOrdering Facility: [facility] Address: [address] [address] Performed By: #### 5 7021-8 ####[facility]ATORYCLIA [id number] [address] [place] Monocytes/100 WBC (Bld) 7.9 % Normal [facility] Comment on above: Order Comment: Speci men Type: BLOOD SPECIMENOrdering Facility: [facility] Address: [address] [place] [address] Performed By: #### 5 7021-8 ####[facility]ATORYCLIA [id number] [place] [address] [place] Neutrophils (Bld) [#/Vol] 6.97 10*3/uL Normal 1.45-7.50 [facility] Comment on above: Order Comment: Speci men Type: BLOOD SPECIMENOrdering Facility: [facility] Address: [address] [place] [address] Performed By: #### 5 7021-8 ####[facility]ATORYCLIA [id number] [address] [place] Neutrophils/100 WBC (Bld) 74.0 % Normal [facility] Comment on above: Order Comment: Speci men Type: BLOOD SPECIMENOrdering Facility: [facility] Address: [address] [address] Performed By: #### 5 7021-8 ####[facility]ATORYCLIA [id number] [place] [address] [place] Nucleated RBC (Bld) [#/Vol] 10*3/uL Normal <0.01 [facility] Comment on above: Order Comment: Speci men Type: BLOOD SPECIMENOrdering Facility: [facility] Address: [address] [place] [address] Performed By: #### 5 7021-8 ####[facility]ORYCLIA [id number] [address] [place] Nucleated RBC/100 WBC (Bld) [Ratio] 0.0 /100 WBC Normal [facility] Comment on above: Order Comment: Speci men Type: BLOOD SPECIMENOrdering Facility: [facility] Address: [address] [place] [address] Performed By: #### 5 7021-8 ####[facility]ATORYCLIA [id number] [place] [address] [place] Platelet mean volume (Bld) [Entitic vol] 9.3 fL Normal 9.0-12.7 [facility] Comment on above: Order Comment: Speci men Type: BLOOD SPECIMENOrdering Facility: [facility] Address: [address] [place] [address] Performed By: #### 5 7021-8 ####[facility]ATORYCLIA [id number] [address] [place] Platelets (Bld) [#/Vol] 318 10*3/uL Normal 150-400 [facility] Comment on above: Order Comment: Speci men Type: BLOOD SPECIMENOrdering Facility: [facility] Address: [address] [place] [address] Performed By: #### 5 7021-8 ####[facility]ATORYCLIA [id number] [place] [address] [place] RBC (Bld) [#/Vol] 3.14 10*6/uL Low 3.90-5.20 [facility] Comment on above: Order Comment: Speci men Type: BLOOD SPECIMENOrdering Facility: [facility] Address: [address] [place] [address] Performed By: #### 5 7021-8 ####[facility]ATORYCLIA [id number] [place] [address] [place] WBC (Bld) [#/Vol] 9.42 10*3/uL Normal 3.70-11.00 [facility] Comment on above: Order Comment: Speci men Type: BLOOD SPECIMENOrdering Facility: [facility] Address: [address] [place] [address] Performed By: #### 5 7021-8 ####[facility]ATORYCLIA [id number] [place] [address] [place] CONSULT PROGon 07-27-2022 CONSULT PROG Normal [facility] FLUABV+SARS-CoV-2+RSV Pnl Re sp AVRIL+probeon 07-27-2022 FLUABV+SARS-CoV-2+RS V Pnl Resp AVRIL+probe Normal [facility] Comment on above: Performed By: #### 9 5941-1 ####[facility]ORYCLIA [id number] [place] [address] [place] NUTRITIONon 07-27-2022 NUTRITION Normal [facility] XR CHEST 1V FRONTALon 2022 XR CHEST 1V FRONTAL Normal [facility] ALLIED HEALTHon 07-26-2022 ALLIED HEALTH Normal [facility] ALLIED HEALTH Normal [facility] CASE MANAGEMon 07-26-2022 CASE MANAGEM Normal [facility] CBC panel Auto (Bld)on 07-26 Erythrocyte distribution width (RBC) [Ratio] 15.1 % High 11.5-15.0 [facility] Comment on above: Order Comment: Speci men Type: BLOOD SPECIMENOrdering Facility: [facility] Address: [address] [place] [address] Performed By: #### 5 8410-2 ####[facility]ATORYCLIA [id number] [address] [place] Hematocrit (Bld) [Volume fraction] 31.9 % Low 36.0-46.0 [facility] Comment on above: Order Comment: Speci men Type: BLOOD SPECIMENOrdering Facility: [facility] Address: [address] [place] [address] Performed By: #### 5 8410-2 ####[facility]ATORYCLIA [id number] [address] Hemoglobin (Bld) [Mass/Vol] 9.8 g/dL Low 11.5-15.5 [facility] Comment on above: Order Comment: Speci men Type: BLOOD SPECIMENOrdering Facility: [facility] Address: [address] [place] [address] Performed By: #### 5 8410-2 ####[facility]ATORYCLIA [id number] [address] MCH (RBC) [Entitic mass] 30.8 pg Normal 26.0-34.0 [facility] Comment on above: Order Comment: Speci men Type: BLOOD SPECIMENOrdering Facility: [facility] Address: [address] [place] [address] Performed By: #### 5 8410-2 ####[facility]ATORYCLIA [id number] [address] MCHC (RBC) [Mass/Vol] 30.7 g/dL Normal 30.5-36.0 [facility] Comment on above: Order Comment: Speci men Type: BLOOD SPECIMENOrdering Facility: [facility] Address: [address] [place] [address] Performed By: #### 5 8410-2 ####[facility]ATORYCLIA [id number] [address] MCV (RBC) [Entitic vol] 100.3 fL High 80.0-100.0 [facility] Comment on above: Order Comment: Speci men Type: BLOOD SPECIMENOrdering Facility: [facility] Address: [address] [place] [address] Performed By: #### 5 8410-2 ####[facility]ATORYCLIA [id number] [address] Nucleated RBC (Bld) [#/Vol] 10*3/uL Normal <0.01 [facility] Comment on above: Order Comment: Speci men Type: BLOOD SPECIMENOrdering Facility: [facility] Address: [address] [address] Performed By: #### 5 8410-2 ####[facility]ATORYCLIA [id number] [address] Platelet mean volume (Bld) [Entitic vol] 9.0 fL Normal 9.0-12.7 [facility] Comment on above: Order Comment: Speci men Type: BLOOD SPECIMENOrdering Facility: [facility] Address: [address] [address] Performed By: #### 5 8410-2 ####[facility]ATORYCLIA [id number] [address] [place] Platelets (Bld) [#/Vol] 334 10*3/uL Normal 150-400 [facility] Comment on above: Order Comment: Speci men Type: BLOOD SPECIMENOrdering Facility: [facility] Address: [address] [address] Performed By: #### 5 8410-2 ####[facility]ATORYCLIA [id number] [address] [place] RBC (Bld) [#/Vol] 3.18 10*6/uL Low 3.90-5.20 [facility] Comment on above: Order Comment: Speci men Type: BLOOD SPECIMENOrdering Facility: [facility] Address: [address] [place] [address] Performed By: #### 5 8410-2 ####[facility]ATORYCLIA [id number] [address] [place] WBC (Bld) [#/Vol] 10.79 10*3/uL Normal 3.70-11.00 [facility] Comment on above: Order Comment: Speci men Type: BLOOD SPECIMENOrdering Facility: [facility] Address: [address] [place] [address] Performed By: #### 5 8410-2 ####[facility]ATORYCLIA [id number] [address] Magnesium SerPl-mCncon 07-26 Magnesium [Mass/Vol] 2.0 mg/dL Normal 1.7-2.3 [facility] Comment on above: Order Comment: Speci men Type: BLOOD SPECIMENOrdering Facility: [facility] Address: [address] [place] [address] Performed By: #### 1 9123-9, 22946-7 ####[facility]ORYCLIA [id number] [address] [place] Renal function [facility] panelon 07-26-2022 Albumin [Mass/Vol] 3.0 g/dL Low 3.9-4.9 [facility] Comment on above: Order Comment: Speci men Type: BLOOD SPECIMENOrdering Facility: [facility] Address: [address] [place] [address] Performed By: #### 1 9123-9, 44069-5 ####[facility]ATORYCLIA [id number] [place] [address] [place] Anion gap [Moles/Vol] 11 mmol/L Normal 9-18 [facility] Comment on above: Order Comment: Speci men Type: BLOOD SPECIMENOrdering Facility: [facility] Address: [address] [place] [address] Performed By: #### 1 9123-9, 63593-4 ####[facility]ORYCLIA [id number] [place] [address] [place] Calcium [Mass/Vol] 8.7 mg/dL Normal 8.5-10.2 [facility] Comment on above: Order Comment: Speci men Type: BLOOD SPECIMENOrdering Facility: [facility] Address: [address] [place] [address] Performed By: #### 1 9123-9, 05059-7 ####[facility]ORYCLIA [id number] [place] [address] [place] Chloride [Moles/Vol] 103 mmol/L Normal 97-105 [facility] Comment on above: Order Comment: Speci men Type: BLOOD SPECIMENOrdering Facility: [facility] Address: [address] [address] Performed By: #### 1 9123-9, 55946-0 ####[facility]ATORYCLIA [id number] [address] STATES OF [facility] CO2 [Moles/Vol] 27 mmol/L Normal 22-30 [facility] Comment on above: Order Comment: Speci men Type: BLOOD SPECIMENOrdering Facility: [facility] Address: [address] [place] [address] Performed By: #### 1 9123-9, 05910-8 ####[facility]ORYCLIA [id number] [address] STATES OF [facility] Creatinine [Mass/Vol] 0.68 mg/dL Normal 0.58-0.96 [facility] Comment on above: Order Comment: Speci men Type: BLOOD SPECIMENOrdering Facility: [facility] Address: [address] [place] [address] Performed By: #### 1 9123-9, 50692-4 ####[facility] WAYNECLIA [id number] [address] OF [facility] ESTIMATED GLOMERULAR FILTRATION RATE 87 mL/min/1.73m??? Normal >=60 [facility] Comment on above: Order Comment: Speci men Type: BLOOD SPECIMENOrdering Facility: [facility] Address: [address] [place] [address] Result Comment: Ilda mated Glomerular Filtration Rate (eGFR) is calculated using the 2020 CKD-EPI creatinine equation. This equation utilizes serum creatinine, sex, and age as parameters. The creatinine assay has traceable calibration to isotope dilution-mass spectrometry. Refer to KDIGO guidelines for clinical interpretation. In patients with unstable renal function, e.g. those with acute kidney injury, the eGFR may not accurately reflect actual GFR. Performed By: #### 1 9123-9, 58618-9 ####[facility]ATORYCLIA [id number] [address] [place] Glucose [Mass/Vol] 114 mg/dL High 74-99 [facility] Comment on above: Order Comment: Speci men Type: BLOOD SPECIMENOrdering Facility: [facility] Address: [address] [address] Result Comment: The [place] [employer] (ADA) provides guidance for cutoff values for fasting glucose and random glucose. The ADA defines fasting as no caloric intake for at least 8 hours. Fasting plasma glucose results between 100 to 125 mg/dL indicate increased risk for diabetes (prediabetes).Fasting plasma glucose results greater than or equal to 126 mg/dL meet the criteria for diagnosis of diabetes. In the absence of unequivocal hyperglycemia, results should be confirmed by repeat testing. In a patient with classic symptoms of hyperglycemia or hyperglycemic crisis, random plasma glucose results greater than or equal to 200 mg/dL meet the criteria for diagnosis of diabetes.Reference: Standards of Medical Care in Diabetes 2016, [place] [employer]. Diabetes Care. 2016.39(Suppl 1). Performed By: #### 1 9123-9, 60363-3 ####[facility]ATORYCLIA [id number] [place] [address] [place] Phosphate [Mass/Vol] 2.9 mg/dL Normal 2.7-4.8 [facility] Comment on above: Order Comment: Michelle duron Type: BLOOD SPECIMENOrdering Facility: [facility] Address: [address] [address] Performed By: #### 1 9123-9, 90597-3 ####[facility]ATORYCLIA [id number] [place] [address] [place] Potassium [Moles/Vol] 3.7 mmol/L Normal 3.7-5.1 [facility] Comment on above: Order Comment: Manoji men Type: BLOOD SPECIMENOrdering Facility: [facility] Address: [address] Performed By: #### 1 9123-9, 77244-1 ####[facility]ATORYCLIA [id number] [place] [address] [place] Sodium [Moles/Vol] 141 mmol/L Normal 136-144 [facility] Comment on above: Order Comment: Speci men Type: BLOOD SPECIMENOrdering Facility: [facility] Address: [address] [address] Performed By: #### 1 9123-9, 43513-1 ####[facility]ATORYCLIA [id number] [address] [place] Urea nitrogen [Mass/Vol] 10 mg/dL Normal 7-21 [facility] Comment on above: Order Comment: Speci men Type: BLOOD SPECIMENOrdering Facility: [facility] Address: [address] [place] [address] Performed By: #### 1 9123-9, 11035-7 ####[facility]ATORYCLIA [id number] [address] OF [facility] THERAPY NTon 07-26-2022 THERAPY NT Normal [facility] THERAPY NT Normal [facility] XR ABDOMEN 1V SUPINEon 07-26 XR ABDOMEN 1V SUPINE Normal [facility] XR CHEST 1V FRONTALon 2022 XR CHEST 1V FRONTAL Normal [facility] ALLIED HEALTHon 07-25-2022 ALLIED HEALTH Normal [facility] CBC panel Auto (Bld)on 07-25 Erythrocyte distribution width (RBC) [Ratio] 15.0 % Normal 11.5-15.0 [facility] Comment on above: Order Comment: Speci men Type: BLOOD SPECIMENOrdering Facility: [facility] Address: [address] [place] [address] Performed By: #### 5 8410-2 ####[facility]ATORYCLIA [id number] [address] [place] Hematocrit (Bld) [Volume fraction] 30.1 % Low 36.0-46.0 [facility] Comment on above: Order Comment: Speci men Type: BLOOD SPECIMENOrdering Facility: [facility] Address: [address] [place] [address] Performed By: #### 5 8410-2 ####[facility]ATORYCLIA [id number] [address] [place] Hemoglobin (Bld) [Mass/Vol] 9.1 g/dL Low 11.5-15.5 [facility] Comment on above: Order Comment: Speci men Type: BLOOD SPECIMENOrdering Facility: [facility] Address: [address] [address] Performed By: #### 5 8410-2 ####[facility]ATORYCLIA [id number] [address] MCH (RBC) [Entitic mass] 30.8 pg Normal 26.0-34.0 [facility] Comment on above: Order Comment: Speci men Type: BLOOD SPECIMENOrdering Facility: [facility] Address: [address] [address] Performed By: #### 5 8410-2 ####[facility]ATORYCLIA [id number] [address] [facility] MCHC (RBC) [Mass/Vol] 30.2 g/dL Low 30.5-36.0 [facility] Comment on above: Order Comment: Speci men Type: BLOOD SPECIMENOrdering Facility: [facility] Address: [address] [address] Performed By: #### 5 8410-2 ####[facility]ATORYCLIA [id number] [address] MCV (RBC) [Entitic vol] 102.0 fL High 80.0-100.0 [facility] Comment on above: Order Comment: Speci men Type: BLOOD SPECIMENOrdering Facility: [facility] Address: [address] [address] Performed By: #### 5 8410-2 ####[facility]ATORYCLIA [id number] [address] Nucleated RBC (Bld) [#/Vol] 10*3/uL Normal <0.01 [facility] Comment on above: Order Comment: Speci men Type: BLOOD SPECIMENOrdering Facility: [facility] Address: [address] [place] [address] Performed By: #### 5 8410-2 ####[facility]ATORYCLIA [id number] [address] [place] Platelet mean volume (Bld) [Entitic vol] 9.0 fL Normal 9.0-12.7 [facility] Comment on above: Order Comment: Speci men Type: BLOOD SPECIMENOrdering Facility: [facility] Address: [address] [place] [address] Performed By: #### 5 8410-2 ####[facility]ATORYCLIA [id number] [place] [address] [place] Platelets (Bld) [#/Vol] 318 10*3/uL Normal 150-400 [facility] Comment on above: Order Comment: Speci men Type: BLOOD SPECIMENOrdering Facility: [facility] Address: [address] [place] [address] Performed By: #### 5 8410-2 ####[facility]ATORYCLIA [id number] [place] [address] [place] RBC (Bld) [#/Vol] 2.95 10*6/uL Low 3.90-5.20 [facility] Comment on above: Order Comment: Speci men Type: BLOOD SPECIMENOrdering Facility: [facility] Address: [address] [place] [address] Performed By: #### 5 8410-2 ####[facility]ATORYCLIA [id number] [address] [place] WBC (Bld) [#/Vol] 8.13 10*3/uL Normal 3.70-11.00 [facility] Comment on above: Order Comment: Speci men Type: BLOOD SPECIMENOrdering Facility: [facility] Address: [address] [place] [address] Performed By: #### 5 8410-2 ####[facility]ORATORYCLIA [id number] [address] [place] DIGOXIN/LANOXINon 07-25-2022 Digoxin [Mass/Vol] 0.8 ng/mL Normal 0.5-1.0 [facility] Comment on above: Order Comment: Michelle domi Type: BLOOD SPECIMENOrdering Facility: [facility] Address: [address] [address] Result Comment: Prov ided therapeutic concentrations are based on the 2008 ESC Guidelines for the Diagnosis and Treatment of Acute and Chronic Heart Failure.Reference ranges and high/low indicator flags are provided as general guidelines only. The treating physician must determine appropriate target levels/dosing based on the specific clinical situation. Performed By: #### D IG ####[facility]ATORYCLIA [id number] [address] [place] XR CHEST 1V FRONTALon 2022 XR CHEST 1V FRONTAL Normal [facility] ALLIED HEALTHon 07-24-2022 ALLIED HEALTH Normal [facility] CBC panel Auto (Bld)on 07-24 Erythrocyte distribution width (RBC) [Ratio] 14.6 % Normal 11.5-15.0 [facility] Comment on above: Order Comment: Michelle duron Type: BLOOD SPECIMENOrdering Facility: [facility] Address: [address] [address] Performed By: #### 5 8410-2 ####[facility]ORATORYCLIA [id number] [address] [place] Hematocrit (Bld) [Volume fraction] 32.5 % Low 36.0-46.0 [facility] Comment on above: Order Comment: Michelle duron Type: BLOOD SPECIMENOrdering Facility: [facility] Address: [address] [address] Performed By: #### 5 8410-2 ####[facility]ORATORYCLIA [id number] [place] [address] [place] Hemoglobin (Bld) [Mass/Vol] 9.8 g/dL Low 11.5-15.5 [facility] Comment on above: Order Comment: Manoji domi Type: BLOOD SPECIMENOrdering Facility: [facility] Address: [address] [address] Performed By: #### 5 8410-2 ####[facility]ATORYCLIA [id number] [address] MCH (RBC) [Entitic mass] 30.8 pg Normal 26.0-34.0 [facility] Comment on above: Order Comment: Speci men Type: BLOOD SPECIMENOrdering Facility: [facility] Address: [address] [place] [address] Performed By: #### 5 8410-2 ####[facility]ATORYCLIA [id number] [address] MCHC (RBC) [Mass/Vol] 30.2 g/dL Low 30.5-36.0 [facility] Comment on above: Order Comment: Speci men Type: BLOOD SPECIMENOrdering Facility: [facility] Address: [address] [place] [address] Performed By: #### 5 8410-2 ####[facility]ATORYCLIA [id number] [address] MCV (RBC) [Entitic vol] 102.2 fL High 80.0-100.0 [facility] Comment on above: Order Comment: Speci men Type: BLOOD SPECIMENOrdering Facility: [facility] Address: [address] [place] [address] Performed By: #### 5 8410-2 ####[facility] LABORATORYCLIA [id number] [address] Nucleated RBC (Bld) [#/Vol] 10*3/uL Normal <0.01 [facility] Comment on above: Order Comment: Speci men Type: BLOOD SPECIMENOrdering Facility: [facility] Address: [address] [place] [address] Performed By: #### 5 8410-2 ####[facility] LABORATORYCLIA [id number] [address] Platelet mean volume (Bld) [Entitic vol] 9.0 fL Normal 9.0-12.7 [facility] Comment on above: Order Comment: Speci men Type: BLOOD SPECIMENOrdering Facility: [facility] Address: [address] [address] Performed By: #### 5 8410-2 ####[facility] LABORATORYCLIA [id number] [address] Platelets (Bld) [#/Vol] 379 10*3/uL Normal 150-400 [facility] Comment on above: Order Comment: Speci men Type: BLOOD SPECIMENOrdering Facility: [facility] Address: [address] [address] Performed By: #### 5 8410-2 ####[facility] LABORATORYCLIA [id number] [address] OF [facility] RBC (Bld) [#/Vol] 3.18 10*6/uL Low 3.90-5.20 [facility] Comment on above: Order Comment: Speci men Type: BLOOD SPECIMENOrdering Facility: [facility] Address: [address] [address] Performed By: #### 5 8410-2 ####[facility] LABORATORYCLIA [id number] [address] STATES OF [facility] WBC (Bld) [#/Vol] 7.62 10*3/uL Normal 3.70-11.00 [facility] Comment on above: Order Comment: Speci men Type: BLOOD SPECIMENOrdering Facility: [facility] Address: [address] [address] Performed By: #### 5 8410-2 ####[facility] LABORATORYCLIA [id number] [address] OF [place] CNPNon 07-24-2022 CNPN Normal [facility] CONSULT PROGon 07-24-2022 CONSULT PROG Normal [facility] Renal function 2000 panelon 07-24-2022 Albumin [Mass/Vol] 2.8 g/dL Low 3.9-4.9 [facility] Comment on above: Order Comment: Speci men Type: BLOOD SPECIMENOrdering Facility: [facility] Address: [address] [address] Performed By: #### 2 4362-6 ####[facility]ORATORYCLIA [id number] [address] STATES [place] Anion gap [Moles/Vol] 7 mmol/L Low 9-18 [facility] Comment on above: Order Comment: Speci men Type: BLOOD SPECIMENOrdering Facility: [facility] Address: [address] [place] [address] Performed By: #### 2 4362-6 ####[facility]ORATORYCLIA [id number] [place] [address] [place] Calcium [Mass/Vol] 8.7 mg/dL Normal 8.5-10.2 [facility] Comment on above: Order Comment: Speci men Type: BLOOD SPECIMENOrdering Facility: [facility] Address: [address] [place] [address] Performed By: #### 2 4362-6 ####[facility]ORATORYCLIA [id number] [address] STATES OF [place] Chloride [Moles/Vol] 107 mmol/L High 97-105 [facility] Comment on above: Order Comment: Speci men Type: BLOOD SPECIMENOrdering Facility: [facility] Address: [address] [place] [address] Performed By: #### 2 4362-6 ####[facility]ORATORYCLIA [id number] [address] STATES OF [place] CO2 [Moles/Vol] 29 mmol/L Normal 22-30 [facility] Comment on above: Order Comment: Speci men Type: BLOOD SPECIMENOrdering Facility: [facility] Address: [address] [place] [address] Performed By: #### 2 4362-6 ####[facility]ATORYCLIA [id number] [address] STATES [place] Creatinine [Mass/Vol] 0.58 mg/dL Normal 0.58-0.96 [facility] Comment on above: Order Comment: Speci men Type: BLOOD SPECIMENOrdering Facility: [facility] Address: [address] [address] Performed By: #### 2 4362-6 ####[facility] POINTIA [id number] [address] ESTIMATED GLOMERULAR FILTRATION RATE 90 mL/min/1.73m??? Normal >=60 [facility] Comment on above: Order Comment: Michelle duron Type: BLOOD SPECIMENOrdering Facility: [facility] Address: [address] [address] Result Comment: Ilda mated Glomerular Filtration Rate (eGFR) is calculated using the 2020 CKD-EPI creatinine equation. This equation utilizes serum creatinine, sex, and age as parameters. The creatinine assay has traceable calibration to isotope dilution-mass spectrometry. Refer to KDIGO guidelines for clinical interpretation. In patients with unstable renal function, e.g. those with acute kidney injury, the eGFR may not accurately reflect actual GFR. Performed By: #### 2 4362-6 ####[facility] POINTIA [id number] [address] Glucose [Mass/Vol] 99 mg/dL Normal 74-99 [facility] Comment on above: Order Comment: Michelle duron Type: BLOOD SPECIMENOrdering Facility: [facility] Address: [address] [address] Result Comment: The [place] [employer] (ADA) provides guidance for cutoff values for fasting glucose and random glucose. The ADA defines fasting as no caloric intake for at least 8 hours. Fasting plasma glucose results between 100 to 125 mg/dL indicate increased risk for diabetes (prediabetes).Fasting plasma glucose results greater than or equal to 126 mg/dL meet the criteria for diagnosis of diabetes. In the absence of unequivocal hyperglycemia, results should be confirmed by repeat testing. In a patient with classic symptoms of hyperglycemia or hyperglycemic crisis, random plasma glucose results greater than or equal to 200 mg/dL meet the criteria for diagnosis of diabetes.Reference: Standards of Medical Care in Diabetes 2016, [place] [employer]. Diabetes Care. 2016.39(Suppl 1). Performed By: #### 2 4362-6 ####[facility] POINTIA [id number] [address] OF [facility] Phosphate [Mass/Vol] 3.0 mg/dL Normal 2.7-4.8 [facility] Comment on above: Order Comment: Speci men Type: BLOOD SPECIMENOrdering Facility: [facility] Address: [address] [place] [address] Performed By: #### 2 4362-6 ####[facility]ORATORYCLIA [id number] [address] [place] Potassium [Moles/Vol] 3.5 mmol/L Low 3.7-5.1 [facility] Comment on above: Order Comment: Speci men Type: BLOOD SPECIMENOrdering Facility: [facility] Address: [address] [place] [address] Performed By: #### 2 4362-6 ####[facility]ORATORYCLIA [id number] [address] [facility] Sodium [Moles/Vol] 143 mmol/L Normal 136-144 [facility] Comment on above: Order Comment: Speci men Type: BLOOD SPECIMENOrdering Facility: [facility] Address: [address] [place] [address] Performed By: #### 2 4362-6 ####[facility]ORATORYCLIA [id number] [address] [place] Urea nitrogen [Mass/Vol] 15 mg/dL Normal 7-21 [facility] Comment on above: Order Comment: Speci men Type: BLOOD SPECIMENOrdering Facility: [facility] Address: [address] [place] [address] Performed By: #### 2 4362-6 ####[facility]ORATORYCLIA [id number] [address] OF [facility] Urinalysis complete panel (U )on 07-24-2022 Bilirubin Ql (U) 1+ Abnormal Negative [facility] Comment on above: Order Comment: Speci men Type: URINE SPECIMENOrdering Facility: [facility] Address: [address] [place] [address] Result Comment: Sugg est correlation with clinical findings and serum bilirubin if clinically indicated. Performed By: #### 2 4356-8 ####[facility]ORATORYCLIA [id number] [address] CALCIUM OXALATE CRYSTALS (UA) Many Abnormal None Seen [facility] Comment on above: Order Comment: Speci men Type: URINE SPECIMENOrdering Facility: [facility] Address: [address] [place] [address] Performed By: #### 2 4356-8 ####[facility]ORATORYCLIA [id number] [address] Clarity (Unsp spec) Dense Turbid Abnormal Clear [facility] Comment on above: Order Comment: Speci men Type: URINE SPECIMENOrdering Facility: [facility] Address: [address] [place] [address] Performed By: #### 2 4356-8 ####[facility]ORATORYCLIA [id number] [address] Color (U) Dark Rogers Abnormal yellow [facility] Comment on above: Order Comment: Speci men Type: URINE SPECIMENOrdering Facility: [facility] Address: [address] [place] [address] Performed By: #### 2 4356-8 ####[facility]ATORYCLIA [id number] [address] Epithelial cells LM.HPF (Urine sed) [#/Area] Few Normal [facility] Comment on above: Order Comment: Speci men Type: URINE SPECIMENOrdering Facility: [facility] Address: [address] [place] [address] Result Comment: Few Performed By: #### 2 4356-8 ####[facility]ATORYCLIA [id number] [address] Glucose Test strip (U) [Mass/Vol] 4+ Abnormal Trace, Negative [facility] Comment on above: Order Comment: Speci men Type: URINE SPECIMENOrdering Facility: [facility] Address: [address] [place], [place] [address] Performed By: #### 2 4356-8 ####[facility]ORATORYCLIA [id number] [address] OF [place] Hemoglobin Ql (U) 3+ Abnormal Negative, Trace [facility] Comment on above: Order Comment: Speci men Type: URINE SPECIMENOrdering Facility: [facility] Address: [address] [address] Performed By: #### 2 4356-8 ####[facility] LABORATORYCLIA [id number] [place] [address] [place] Ketones Ql (U) 1+ Abnormal Negative, Trace [facility] Comment on above: Order Comment: Speci men Type: URINE SPECIMENOrdering Facility: [facility] Address: [address] [place] [address] Performed By: #### 2 4356-8 ####[facility]ORATORYCLIA [id number] [address] OF [facility] Leukocyte esterase Test strip Ql (U) 250 Jong/uL Abnormal Negative, 25 Jong/uL [facility] Comment on above: Order Comment: Speci men Type: URINE SPECIMENOrdering Facility: [facility] Address: [address] [place] [address] Performed By: #### 2 4356-8 ####[facility]ORATORYCLIA [id number] [address] [place] Nitrite Ql (U) Negative Normal Negative [facility] Comment on above: Order Comment: Speci men Type: URINE SPECIMENOrdering Facility: [facility] Address: [address] [address] Performed By: #### 2 4356-8 ####[facility]ATORYCLIA [id number] [address] [place] pH (U) 6.0 [pH] Normal 5.0-8.0 [facility] Comment on above: Order Comment: Speci men Type: URINE SPECIMENOrdering Facility: [facility] Address: [address] [place] [address] Performed By: #### 2 4356-8 ####[facility]ATORYCLIA [id number] [address] Protein (U) [Mass/Vol] 2+ Abnormal Trace, Negative [facility] Comment on above: Order Comment: Speci men Type: URINE SPECIMENOrdering Facility: [facility] Address: [address] [place] [address] Performed By: #### 2 4356-8 ####[facility]ORATORYCLIA [id number] [address] [place] RBC LM.HPF (Urine sed) [#/Area] /[HPF] Abnormal 0-3 /HPF [facility] Comment on above: Order Comment: Speci men Type: URINE SPECIMENOrdering Facility: [facility] Address: [address] [place] [address] Performed By: #### 2 4356-8 ####[facility]ATORYCLIA [id number] [address] Specific gravity (U) [Rel density] >1.040 High 1.005-1.030 [facility] Comment on above: Order Comment: Speci men Type: URINE SPECIMENOrdering Facility: [facility] Address: [address] [place] [address] Performed By: #### 2 4356-8 ####[facility]ATORYCLIA [id number] [address] Urobilinogen Ql (U) Normal Normal Negative [facility] Comment on above: Order Comment: Speci men Type: URINE SPECIMENOrdering Facility: [facility] Address: [address] [place] [address] Performed By: #### 2 4356-8 ####[facility]ATORYCLIA [id number] [address] [place] WBC LM.HPF (Urine sed) [#/Area] /[HPF] Abnormal 0-5 /HPF [facility] Comment on above: Order Comment: Speci men Type: URINE SPECIMENOrdering Facility: [facility] Address: [address] [place] [address] Performed By: #### 2 4356-8 ####[facility]ATORYCLIA [id number] [address] OF [facility] Yeast.budding LM.HPF (Urine sed) [#/Area] Many Abnormal None Seen [facility] Comment on above: Order Comment: Speci men Type: URINE SPECIMENOrdering Facility: [facility] Address: [address] [place] [address] Performed By: #### 2 4356-8 ####[facility]ATORYCLIA [id number] [address] OF [facility] Urinalysis complete pnl Uron 07-24-2022 Urinalysis complete panel (U) Normal [facility] Comment on above: Order Comment: Speci men Type: URINE SPECIMENOrdering Facility: [facility] Address: [address] [place] [address] Performed By: #### 2 4356-8 ####[facility]ATORYCLIA [id number] [address] STATES OF [facility] XR CHEST 1V FRONTALon 2022 XR CHEST 1V FRONTAL Normal [facility] ALLIED HEALTHon 07-23-2022 ALLIED HEALTH Normal [facility] Basic metabolic 2000 panelon 07-23-2022 Anion gap [Moles/Vol] 10 mmol/L Normal 9-18 [facility] Comment on above: Order Comment: Speci men Type: BLOOD SPECIMENOrdering Facility: [facility] Address: [address] [place] [address] Performed By: #### 2 4321-2 ####[facility]ATORYCLIA [id number] [address] STATES OF [facility] Calcium [Mass/Vol] 9.2 mg/dL Normal 8.5-10.2 [facility] Comment on above: Order Comment: Speci men Type: BLOOD SPECIMENOrdering Facility: [facility] Address: [address] [place] [address] Performed By: #### 2 4321-2 ####[facility]ORATORYCLIA [id number] [address] [place] Chloride [Moles/Vol] 105 mmol/L Normal 97-105 [facility] Comment on above: Order Comment: Speci men Type: BLOOD SPECIMENOrdering Facility: [facility] Address: [address] [place] [address] Performed By: #### 2 4321-2 ####[facility]ORATORYCLIA [id number] [address] [place] CO2 [Moles/Vol] 28 mmol/L Normal 22-30 [facility] Comment on above: Order Comment: Speci men Type: BLOOD SPECIMENOrdering Facility: [facility] Address: [address] [place] [address] Performed By: #### 2 4321-2 ####[facility]ORATORYCLIA [id number] [address] OF [facility] Creatinine [Mass/Vol] 0.61 mg/dL Normal 0.58-0.96 [facility] Comment on above: Order Comment: Speci men Type: BLOOD SPECIMENOrdering Facility: [facility] Address: [address] [place] [address] Performed By: #### 2 4321-2 ####[facility]ATORYCLIA [id number] [address] ESTIMATED GLOMERULAR FILTRATION RATE 89 mL/min/1.73m??? Normal >=60 [facility] Comment on above: Order Comment: Speci men Type: BLOOD SPECIMENOrdering Facility: [facility] Address: [address] [place] [address] Result Comment: Ilda mated Glomerular Filtration Rate (eGFR) is calculated using the 2020 CKD-EPI creatinine equation. This equation utilizes serum creatinine, sex, and age as parameters. The creatinine assay has traceable calibration to isotope dilution-mass spectrometry. Refer to KDIGO guidelines for clinical interpretation. In patients with unstable renal function, e.g. those with acute kidney injury, the eGFR may not accurately reflect actual GFR. Performed By: #### 2 4321-2 ####[facility]ATORYCLIA [id number] [place] [address] [place] Glucose [Mass/Vol] 91 mg/dL Normal 74-99 [facility] Comment on above: Order Comment: Speci men Type: BLOOD SPECIMENOrdering Facility: [facility] Address: [address] [place] [address] Result Comment: The [place] [employer] (ADA) provides guidance for cutoff values for fasting glucose and random glucose. The ADA defines fasting as no caloric intake for at least 8 hours. Fasting plasma glucose results between 100 to 125 mg/dL indicate increased risk for diabetes (prediabetes).Fasting plasma glucose results greater than or equal to 126 mg/dL meet the criteria for diagnosis of diabetes. In the absence of unequivocal hyperglycemia, results should be confirmed by repeat testing. In a patient with classic symptoms of hyperglycemia or hyperglycemic crisis, random plasma glucose results greater than or equal to 200 mg/dL meet the criteria for diagnosis of diabetes.Reference: Standards of Medical Care in Diabetes 2016, [place] [employer]. Diabetes Care. 2016.39(Suppl 1). Performed By: #### 2 4321-2 ####[facility]ATORYCLIA [id number] [place] [address] [place] Potassium [Moles/Vol] 4.0 mmol/L Normal 3.7-5.1 [facility] Comment on above: Order Comment: Speci men Type: BLOOD SPECIMENOrdering Facility: [facility] Address: [address] [place] [address] Performed By: #### 2 4321-2 ####[facility]ATORYCLIA [id number] [place] [address] [place] Sodium [Moles/Vol] 143 mmol/L Normal 136-144 [facility] Comment on above: Order Comment: Speci men Type: BLOOD SPECIMENOrdering Facility: [facility] Address: [address] [place] [address] Performed By: #### 2 4321-2 ####[facility]ATORYCLIA [id number] [place] [address] [place] Urea nitrogen [Mass/Vol] 14 mg/dL Normal 7-21 [facility] Comment on above: Order Comment: Speci men Type: BLOOD SPECIMENOrdering Facility: [facility] Address: [address] [place] [address] Performed By: #### 2 4321-2 ####[facility]ATORYCLIA [id number] [address] STATES OF [facility] CBC panel Auto (Bld)on 07-23 Erythrocyte distribution width (RBC) [Ratio] 14.5 % Normal 11.5-15.0 [facility] Comment on above: Order Comment: Speci men Type: BLOOD SPECIMENOrdering Facility: [facility] Address: [address] [place] [address] Performed By: #### 5 8410-2 ####[facility]ATORYCLIA [id number] [address] Hematocrit (Bld) [Volume fraction] 37.1 % Normal 36.0-46.0 [facility] Comment on above: Order Comment: Speci men Type: BLOOD SPECIMENOrdering Facility: [facility] Address: [address] [place] [address] Performed By: #### 5 8410-2 ####[facility]ATORYCLIA [id number] [address] STATES OF [facility] Hemoglobin (Bld) [Mass/Vol] 11.2 g/dL Low 11.5-15.5 [facility] Comment on above: Order Comment: Speci men Type: BLOOD SPECIMENOrdering Facility: [facility] Address: [address] [place] [address] Performed By: #### 5 8410-2 ####[facility]ATORYCLIA [id number] [address] [facility] MCH (RBC) [Entitic mass] 30.7 pg Normal 26.0-34.0 [facility] Comment on above: Order Comment: Speci men Type: BLOOD SPECIMENOrdering Facility: [facility] Address: [address] [place], [place] [address] Performed By: #### 5 8410-2 ####[facility]ATORYCLIA [id number] [address] MCHC (RBC) [Mass/Vol] 30.2 g/dL Low 30.5-36.0 [facility] Comment on above: Order Comment: Speci men Type: BLOOD SPECIMENOrdering Facility: [facility] Address: [address] [place] [address] Performed By: #### 5 8410-2 ####[facility]ATORYCLIA [id number] [address] MCV (RBC) [Entitic vol] 101.6 fL High 80.0-100.0 [facility] Comment on above: Order Comment: Speci men Type: BLOOD SPECIMENOrdering Facility: [facility] Address: [address] [place] [address] Performed By: #### 5 8410-2 ####[facility]ATORYCLIA [id number] [address] Nucleated RBC (Bld) [#/Vol] 10*3/uL Normal <0.01 [facility] Comment on above: Order Comment: Speci men Type: BLOOD SPECIMENOrdering Facility: [facility] Address: [address] [place] [address] Performed By: #### 5 8410-2 ####[facility]ORATORYCLIA [id number] [address] STATES OF [facility] Platelet mean volume (Bld) [Entitic vol] 8.6 fL Low 9.0-12.7 [facility] Comment on above: Order Comment: Speci men Type: BLOOD SPECIMENOrdering Facility: [facility] Address: [address] [place] [address] Performed By: #### 5 8410-2 ####[facility]ATORYCLIA [id number] [address] [place] Platelets (Bld) [#/Vol] 380 10*3/uL Normal 150-400 [facility] Comment on above: Order Comment: Speci men Type: BLOOD SPECIMENOrdering Facility: [facility] Address: [address] [place] [address] Performed By: #### 5 8410-2 ####[facility]ATORYCLIA [id number] [address] [place] RBC (Bld) [#/Vol] 3.65 10*6/uL Low 3.90-5.20 [facility] Comment on above: Order Comment: Speci men Type: BLOOD SPECIMENOrdering Facility: [facility] Address: [address] [place] [address] Performed By: #### 5 8410-2 ####[facility]ORATORYCLIA [id number] [address] STATES OF [facility] WBC (Bld) [#/Vol] 7.54 10*3/uL Normal 3.70-11.00 [facility] Comment on above: Order Comment: Speci men Type: BLOOD SPECIMENOrdering Facility: [facility] Address: [address] [place] [address] Performed By: #### 5 8410-2 ####[facility]ORATORYCLIA [id number] [address] [place] CONSULT PROGon 07-23-2022 CONSULT PROG Normal [facility] HISTORY PHYSICALon HISTORY PHYSICAL Normal [facility] XR CHEST 1V FRONTALon 2022 XR CHEST 1V FRONTAL Normal [facility] ALLIED HEALTHon 07-22-2022 ALLIED HEALTH Normal [facility] Basic metabolic 2000 panelon 07-22-2022 Anion gap [Moles/Vol] 10 mmol/L Normal 9-18 [facility] Comment on above: Order Comment: Speci men Type: BLOOD SPECIMENOrdering Facility: [facility] Address: [address] [place] [address] Performed By: #### 2 4321-2 ####[facility]ORATORYCLIA [id number] [address] [place] Calcium [Mass/Vol] 8.8 mg/dL Normal 8.5-10.2 [facility] Comment on above: Order Comment: Speci men Type: BLOOD SPECIMENOrdering Facility: [facility] Address: [address] [place] [address] Performed By: #### 2 4321-2 ####[facility] LABORATORYCLIA [id number] [place] [address] [place] Chloride [Moles/Vol] 103 mmol/L Normal 97-105 [facility] Comment on above: Order Comment: Speci men Type: BLOOD SPECIMENOrdering Facility: [facility] Address: [address] [place] [address] Performed By: #### 2 4321-2 ####[facility] LABORATORYCLIA [id number] [address] [place] CO2 [Moles/Vol] 27 mmol/L Normal 22-30 [facility] Comment on above: Order Comment: Speci men Type: BLOOD SPECIMENOrdering Facility: [facility] Address: [address] [place] [address] Performed By: #### 2 4321-2 ####[facility] LABORATORYCLIA [id number] [address] [place] Creatinine [Mass/Vol] 0.58 mg/dL Normal 0.58-0.96 [facility] Comment on above: Order Comment: Speci men Type: BLOOD SPECIMENOrdering Facility: [facility] Address: [address] [place] [address] Performed By: #### 2 4321-2 ####[facility] LABORATORYCLIA [id number] [address] ESTIMATED GLOMERULAR FILTRATION RATE 90 mL/min/1.73m??? Normal >=60 [facility] Comment on above: Order Comment: Speci men Type: BLOOD SPECIMENOrdering Facility: [facility] Address: [address] [place] [address] Result Comment: Ilda mated Glomerular Filtration Rate (eGFR) is calculated using the 2020 CKD-EPI creatinine equation. This equation utilizes serum creatinine, sex, and age as parameters. The creatinine assay has traceable calibration to isotope dilution-mass spectrometry. Refer to KDIGO guidelines for clinical interpretation. In patients with unstable renal function, e.g. those with acute kidney injury, the eGFR may not accurately reflect actual GFR. Performed By: #### 2 4321-2 ####[facility]ORATORYCLIA [id number] [place] [address] [place] Glucose [Mass/Vol] 85 mg/dL Normal 74-99 [facility] Comment on above: Order Comment: Speci men Type: BLOOD SPECIMENOrdering Facility: [facility] Address: [address] [place] [address] Result Comment: The [place] Diabetes Association (ADA) provides guidance for cutoff values for fasting glucose and random glucose. The ADA defines fasting as no caloric intake for at least 8 hours. Fasting plasma glucose results between 100 to 125 mg/dL indicate increased risk for diabetes (prediabetes).Fasting plasma glucose results greater than or equal to 126 mg/dL meet the criteria for diagnosis of diabetes. In the absence of unequivocal hyperglycemia, results should be confirmed by repeat testing. In a patient with classic symptoms of hyperglycemia or hyperglycemic crisis, random plasma glucose results greater than or equal to 200 mg/dL meet the criteria for diagnosis of diabetes.Reference: Standards of Medical Care in Diabetes 2016, [place] [employer]. Diabetes Care. 2016.39(Suppl 1). Performed By: #### 2 4321-2 ####[facility]ORATORYCLIA [id number] [place] [address] [place] Potassium [Moles/Vol] 3.6 mmol/L Low 3.7-5.1 [facility] Comment on above: Order Comment: Speci men Type: BLOOD SPECIMENOrdering Facility: [facility] Address: [address] [id number] Performed By: #### 2 4321-2 ####[facility]ORATORYCLIA [id number] [place] [address] [place] Sodium [Moles/Vol] 140 mmol/L Normal 136-144 [facility] Comment on above: Order Comment: Speci men Type: BLOOD SPECIMENOrdering Facility: [facility] Address: [address] [place] [address] Performed By: #### 2 4321-2 ####[facility]ORATORYCLIA [id number] [address] STATES OF [facility] Urea nitrogen [Mass/Vol] 14 mg/dL Normal 7-21 [facility] Comment on above: Order Comment: Speci men Type: BLOOD SPECIMENOrdering Facility: [facility] Address: [address] [place] [address] Performed By: #### 2 4321-2 ####[facility]ORATORYCLIA [id number] [address] OF [facility] CASE MANAGEMon 07-22-2022 CASE MANAGEM Normal [facility] CBC panel Auto (Bld)on 07-22 Erythrocyte distribution width (RBC) [Ratio] 14.3 % Normal 11.5-15.0 [facility] Comment on above: Order Comment: Speci men Type: BLOOD SPECIMENOrdering Facility: [facility] Address: [address] [place] [address] Performed By: #### 5 8410-2 ####[facility]ORATORYCLIA [id number] [address] STATES OF [facility] Hematocrit (Bld) [Volume fraction] 34.7 % Low 36.0-46.0 [facility] Comment on above: Order Comment: Speci men Type: BLOOD SPECIMENOrdering Facility: [facility] Address: [address] [place] [address] Performed By: #### 5 8410-2 ####[facility]ATORYCLIA [id number] [address] [place] Hemoglobin (Bld) [Mass/Vol] 10.5 g/dL Low 11.5-15.5 [facility] Comment on above: Order Comment: Speci men Type: BLOOD SPECIMENOrdering Facility: [facility] Address: [address] [place] [address] Performed By: #### 5 8410-2 ####[facility]ORATORYCLIA [id number] [address] MCH (RBC) [Entitic mass] 30.6 pg Normal 26.0-34.0 [facility] Comment on above: Order Comment: Speci men Type: BLOOD SPECIMENOrdering Facility: [facility] Address: [address] [place] [address] Performed By: #### 5 8410-2 ####[facility]ORATORYCLIA [id number] [address] MCHC (RBC) [Mass/Vol] 30.3 g/dL Low 30.5-36.0 [facility] Comment on above: Order Comment: Speci men Type: BLOOD SPECIMENOrdering Facility: [facility] Address: [address] [place] [address] Performed By: #### 5 8410-2 ####[facility]ORATORYCLIA [id number] [address] [facility] MCV (RBC) [Entitic vol] 101.2 fL High 80.0-100.0 [facility] Comment on above: Order Comment: Speci men Type: BLOOD SPECIMENOrdering Facility: [facility] Address: [address] [place] [address] Performed By: #### 5 8410-2 ####[facility]ATORYCLIA [id number] [address] Nucleated RBC (Bld) [#/Vol] 10*3/uL Normal <0.01 [facility] Comment on above: Order Comment: Speci men Type: BLOOD SPECIMENOrdering Facility: [facility] Address: [address] [place] [address] Performed By: #### 5 8410-2 ####[facility]ORATORYCLIA [id number] [address] Platelet mean volume (Bld) [Entitic vol] 8.6 fL Low 9.0-12.7 [facility] Comment on above: Order Comment: Speci men Type: BLOOD SPECIMENOrdering Facility: [facility] Address: [address] [place] [address] Performed By: #### 5 8410-2 ####[facility]ORATORYCLIA [id number] [address] Platelets (Bld) [#/Vol] 400 10*3/uL Normal 150-400 [facility] Comment on above: Order Comment: Speci men Type: BLOOD SPECIMENOrdering Facility: [facility] Address: [address] [place] [address] Performed By: #### 5 8410-2 ####[facility] LABORATORYCLIA [id number] [address] RBC (Bld) [#/Vol] 3.43 10*6/uL Low 3.90-5.20 [facility] Comment on above: Order Comment: Speci men Type: BLOOD SPECIMENOrdering Facility: [facility] Address: [address] [place] [address] Performed By: #### 5 8410-2 ####[facility]ATORYCLIA [id number] [address] WBC (Bld) [#/Vol] 8.47 10*3/uL Normal 3.70-11.00 [facility] Comment on above: Order Comment: Speci men Type: BLOOD SPECIMENOrdering Facility: [facility] Address: [address] [place] [address] Performed By: #### 5 8410-2 ####[facility]ORATORYCLIA [id number] [address] Centromere Ab IF Ql (S)on Centromere Ab Qn (S) <0.2 Normal <1.0 [facility] Comment on above: Order Comment: Speci men Type: BLOOD SPECIMENOrdering Facility: [facility] Address: [address] [place] [address] Result Comment: Anti -centromere antibody is used as in aid in diagnosis of systemic sclerosis. Clinical correlation is required.Test Methodology: Multiplex flow immunoassay. Performed By: #### 5 1775-5, 45520-2, 41099-2, 62164-8, 02913-1, 83185-9, 45232-6, 56265-1 ####[facility] LABCLIA [id number] [place] [address] [place] CENTROMERE AB QUAL Negative Normal Negative [facility] Comment on above: Order Comment: Speci men Type: BLOOD SPECIMENOrdering Facility: [facility] Address: [address] [place] [address] Performed By: #### 5 1775-5, 73219-9, 54684-1, 70879-8, 03744-6, 04813-4, 33448-8, 89124-8 ####[facility] LABCLIA [id number] [address] [place] Chromatin Ab Qnon 07-22-2022 CHROMATIN AB QUAL Negative Normal Negative [facility] Comment on above: Order Comment: Speci men Type: BLOOD SPECIMENOrdering Facility: [facility] Address: [address] [place] [address] Performed By: #### 5 1775-5, 84783-0, 85537-2, 04821-5, 80130-2, 69069-0, 76692-9, 13578-7 ####[facility] LABCLIA [id number] [address] [place] Chromatin Ab SerPl-aCncon Chromatin Ab Qn <0.2 Normal <1.0 [facility] Comment on above: Order Comment: Speci men Type: BLOOD SPECIMENOrdering Facility: [facility] Address: [address] [place] [address] Result Comment: Test Methodology: Multiplex flow immunoassay. Performed By: #### 5 1775-5, 38753-6, 91781-8, 25742-3, 43365-7, 14359-7, 22666-7, 09555-4 ####[facility] LABCLIA [id number] [place] [address] [place] ECHO LIMITEDon 07-22-2022 ECHO LIMITED Normal [facility] MALIHA Jo1 Ab Ser-aCncon 2022 Tonie-1 extractable nuclear Ab Qn (S) <0.2 Normal <1.0 [facility] Comment on above: Order Comment: Speci men Type: BLOOD SPECIMENOrdering Facility: [facility] Address: [address] [place] [address] Performed By: #### 5 1775-5, 07292-3, 74600-2, 10219-6, 25092-2, 72517-3, 41346-9, 64130-6 ####[facility] LABCLIA [id number] [address] [place] MALIHA CORK PRESSING MACHINE OPERATOR Ab Ser-aCncon 2022 Ribonucleoprotein extractable nuclear Ab Qn (S) <0.2 Normal <1.0 [facility] Comment on above: Order Comment: Speci men Type: BLOOD SPECIMENOrdering Facility: [facility] Address: [address] [place] [address] Performed By: #### 5 1775-5, 82350-5, 51984-2, 83607-7, 19821-0, 94169-2, 42948-8, 90219-8 ####[facility] LABCLIA [id number] [address] [place] MALIHA SM IgG Ser-aCncon 2022 Banks extractable nuclear IgG Qn (S) <0.2 Normal <1.0 [facility] Comment on above: Order Comment: Speci men Type: BLOOD SPECIMENOrdering Facility: [facility] Address: [address] [place] [address] Performed By: #### 5 1775-5, 36243-4, 50191-2, 39343-0, 74030-5, 61004-6, 14850-4, 75417-3 ####[facility] LABCLIA [id number] [address] [place] MALIHA SS-A Ab Ser-aCncon 07-22 Sjogrens syndrome-A extractable nuclear Ab Qn (S) <0.2 Normal <1.0 [facility] Comment on above: Order Comment: Speci men Type: BLOOD SPECIMENOrdering Facility: [facility] Address: [address] [place] [address] Result Comment: Test Methodology: Multiplex flow immunoassay. Performed By: #### 5 1775-5, 59022-7, 19154-5, 59616-7, 30323-9, 04667-2, 25328-5, 40432-8 ####[facility] LABIA [id number] [address] [facility] MALIHA SS-B Ab Ser-aCncon 07-22 Sjogrens syndrome-B extractable nuclear Ab Qn (S) <0.2 Normal <1.0 [facility] Comment on above: Order Comment: Speci men Type: BLOOD SPECIMENOrdering Facility: [facility] Address: [address] [place] [address] Result Comment: Anti -SSB (anti-La) antibody is used as an aid in diagnosis of a variety of systemic autoimmune diseases, especially for Sjogren's syndrome and systemic lupus erythematosus. Clinical correlation is required.Test Methodology: Multiplex flow immunoassay. Performed By: #### 5 1775-5, 20623-4, 62008-2, 05873-2, 66265-4, 20279-1, 13141-0, 78814-1 ####[facility] LABIA [id number] [address] [place] Tonie-1 extractable nuclear Ab Qn (S)on 07-22-2022 TONIE 1 ANTIBODY QUAL Negative Normal Negative [facility] Comment on above: Order Comment: Speci men Type: BLOOD SPECIMENOrdering Facility: [facility] Address: [address] [place] [address] Result Comment: Anti -TONIE-1 antibody is used as an aid in diagnosis of polymyositis and dermatomyositis especially with pulmonary involvement. A negative result cannot rule out polymyositis or dermatomyositis. Clinical correlation is required.Test Methodology: Multiplex flow immunoassay. Performed By: #### 5 1775-5, 56651-8, 75921-0, 83631-9, 15755-9, 67146-3, 48765-8, 05693-6 ####[facility] LABCLIA [id number] [address] [address] [place] NUTRITIONon 07-22-2022 NUTRITION Normal [facility] Ribonucleoprotein extractabl e nuclear Ab Qn (S)on 07-22-2022 ANTI-CORK PRESSING MACHINE OPERATOR QUAL Negative Normal Negative [facility] Comment on above: Order Comment: Speci men Type: BLOOD SPECIMENOrdering Facility: [facility] Address: [address] [place] [address] Performed By: #### 5 1775-5, 51379-1, 84183-9, 97029-3, 69469-0, 30696-8, 14592-9, 96985-0 ####[facility] LABIA [id number] [address] [facility] RIBOSOMAL CORK PRESSING MACHINE OPERATOR QUAL Negative Normal Negative [facility] Comment on above: Order Comment: Speci [facility] Type: BLOOD SPECIMENOrdering Facility: [facility] Address: [address] [place] [address] Result Comment: Anti -Ribosomal RNA (Ribosomal P) antibody is used as an aid in diagnosis of systemic autoimmune diseases especially systemic lupus erythematosus and mixed connective tissue disease. Cross-reactivity with Anti-banks antibody is not uncommon. Clinical correlation is required.Test Methodology: Multiplex flow immunoassay. Performed By: #### 5 1775-5, 70654-8, 51738-0, 70392-2, 31544-7, 18237-6, 11601-1, 29597-1 ####[facility] LABCLIA [id number] [address] [address] [place] SCL-70 extractable nuclear I gG IA Qn (S)on 07-22-2022 SCLERODERMA AB QUAL Negative Normal Negative [facility] Comment on above: Order Comment: Speci men Type: BLOOD SPECIMENOrdering Facility: [facility] Address: [address] [address] Performed By: #### 5 1775-5, 53000-0, 63957-0, 77890-5, 10890-1, 78228-4, 12649-6, 85523-1 ####[facility] LABIA [id number] [address] [place] SCLERODERMA IGG AB <0.2 Normal <1.0 [facility] Comment on above: Order Comment: Speci men Type: BLOOD SPECIMENOrdering Facility: [facility] Address: [address] [place] [address] Result Comment: Scl- 70/Scleroderma antibody test is used as an aid in diagnosis of systemic sclerosis especially the diffuse cutaneous form. A negative result cannot rule out systemic sclerosis. The final interpretation should consider clinical picture and other test results such as anti-centromere antibody. Test Methodology: Multiplex flow immunoassay. Performed By: #### 5 1775-5, 61819-7, 47296-2, 26430-8, 65475-7, 16872-8, 58269-3, 40212-8 ####[facility] LABIA [id number] [address] [place] Sjogrens syndrome-A extracta ble nuclear Ab Qn (S)on 07-22-2022 SSA ANTIBODY QUAL Negative Normal Negative [facility] Comment on above: Order Comment: Speci men Type: BLOOD SPECIMENOrdering Facility: [facility] Address: [address] [place] [address] Performed By: #### 5 1775-5, 43346-7, 98901-9, 72995-0, 88558-1, 22555-6, 20934-2, 91936-4 ####[facility] LABCLIA [id number] [address] [place] Sjogrens syndrome-B extracta ble nuclear Ab Qn (S)on 07-22-2022 SSB ANTIBODY QUAL Negative Normal Negative [facility] Comment on above: Order Comment: Speci men Type: BLOOD SPECIMENOrdering Facility: [facility] Address: [address] [place] [address] Performed By: #### 5 1775-5, 71670-4, 94249-7, 05490-4, 11947-9, 22543-3, 24504-6, 78432-5 ####[facility] LABCLIA [id number] [address] [place] Banks extractable nuclear Ig G Qn (S)on 07-22-2022 SM ANTIBODY QUAL Negative Normal Negative [facility] Comment on above: Order Comment: Speci men Type: BLOOD SPECIMENOrdering Facility: [facility] Address: [address] [place] [address] Result Comment: Anti -Sm (Banks) antibody is used as an aid in diagnosis of systemic lupus erythematosus and its presence is associated with renal disease. A negative result cannot rule out systemic lupus erythematosus. Clinical correlation is required.Test Methodology: Multiplex flow immunoassay. Performed By: #### 5 1775-5, 68664-8, 54143-9, 10560-1, 72782-8, 83420-7, 03420-7, 24035-0 ####[facility] LABCLIA [id number] [place] [address] [place] THERAPY NTon 07-22-2022 THERAPY NT Normal [facility] XR CHEST 1V FRONTALon 2022 XR CHEST 1V FRONTAL Normal [facility] ALLIED HEALTHon 07-21-2022 ALLIED HEALTH Normal [facility] ALLIED HEALTH Normal [facility] ANES POSTPROC EVALon 023 ANES POSTPROC EVAL Normal [facility] BRIEF OP NOTon 07-21-2022 BRIEF OP NOT Normal [facility] Basic metabolic 2000 panelon 07-21-2022 Anion gap [Moles/Vol] 7 mmol/L Low 9-18 [facility] Comment on above: Order Comment: Speci men Type: BLOOD SPECIMENOrdering Facility: [facility] Address: [address] [place] [address] Performed By: #### 2 4320-2, 65668-5 ####[facility]ORATORYCLIA [id number] [place] [address] [place] Calcium [Mass/Vol] 8.7 mg/dL Normal 8.5-10.2 [facility] Comment on above: Order Comment: Speci men Type: BLOOD SPECIMENOrdering Facility: [facility] Address: [address] [place] [address] Performed By: #### 2 4320-2, 77159-5 ####[facility]ORATORYCLIA [id number] [place] [address] [place] Chloride [Moles/Vol] 103 mmol/L Normal 97-105 [facility] Comment on above: Order Comment: Speci men Type: BLOOD SPECIMENOrdering Facility: [facility] Address: [address] [place] [address] Performed By: #### 2 2, 46797-6 ####[facility]ATORYCLIA [id number] [place] [address] [place] CO2 [Moles/Vol] 29 mmol/L Normal 22-30 [facility] Comment on above: Order Comment: Speci men Type: BLOOD SPECIMENOrdering Facility: [facility] Address: [address] [place] [address] Performed By: #### 2 4320-2, 97456-3 ####[facility]ATORYCLIA [id number] [place] [address] [place] Creatinine [Mass/Vol] 0.61 mg/dL Normal 0.58-0.96 [facility] Comment on above: Order Comment: Speci men Type: BLOOD SPECIMENOrdering Facility: [facility] Address: [address] [place] [address] Performed By: #### 2 4320-2, 92212-1 ####[facility] WAYNECLIA [id number] [place] [address] [place] ESTIMATED GLOMERULAR FILTRATION RATE 89 mL/min/1.73m??? Normal >=60 [facility] Comment on above: Order Comment: Michelle duron Type: BLOOD SPECIMENOrdering Facility: [facility] Address: [address] [place] [address] Result Comment: Ilda mated Glomerular Filtration Rate (eGFR) is calculated using the 2020 CKD-EPI creatinine equation. This equation utilizes serum creatinine, sex, and age as parameters. The creatinine assay has traceable calibration to isotope dilution-mass spectrometry. Refer to KDIGO guidelines for clinical interpretation. In patients with unstable renal function, e.g. those with acute kidney injury, the eGFR may not accurately reflect actual GFR. Performed By: #### 2 4321-2, 70930-6 ####[facility] POINTIA [id number] [place] [address] [place] Glucose [Mass/Vol] 87 mg/dL Normal 74-99 [facility] Comment on above: Order Comment: Michelle domi Type: BLOOD SPECIMENOrdering Facility: [facility] Address: [address] [place] [address] Result Comment: The [place] [employer] (ADA) provides guidance for cutoff values for fasting glucose and random glucose. The ADA defines fasting as no caloric intake for at least 8 hours. Fasting plasma glucose results between 100 to 125 mg/dL indicate increased risk for diabetes (prediabetes).Fasting plasma glucose results greater than or equal to 126 mg/dL meet the criteria for diagnosis of diabetes. In the absence of unequivocal hyperglycemia, results should be confirmed by repeat testing. In a patient with classic symptoms of hyperglycemia or hyperglycemic crisis, random plasma glucose results greater than or equal to 200 mg/dL meet the criteria for diagnosis of diabetes.Reference: Standards of Medical Care in Diabetes 2016, [place] [employer]. Diabetes Care. 2016.39(Suppl 1). Performed By: #### 2 4321-2, 89146-1 ####[facility] LABORATORYCLIA [id number] [address] [id number] [place] Potassium [Moles/Vol] 3.8 mmol/L Normal 3.7-5.1 [facility] Comment on above: Order Comment: Speci men Type: BLOOD SPECIMENOrdering Facility: [facility] Address: [address] [address] Performed By: #### 2 4321-2, 92850-5 ####[facility] LABORATORYCLIA [id number] [place] [address] [place] Sodium [Moles/Vol] 139 mmol/L Normal 136-144 [facility] Comment on above: Order Comment: Speci men Type: BLOOD SPECIMENOrdering Facility: [facility] Address: [address] [place] [address] Performed By: #### 2 432-2, 72172-8 ####[facility] LABORATORYCLIA [id number] [place] [address] [place] Urea nitrogen [Mass/Vol] 14 mg/dL Normal 7-21 [facility] Comment on above: Order Comment: Speci men Type: BLOOD SPECIMENOrdering Facility: [facility] Address: [address] [place] [address] Performed By: #### 2 4322, 00044-3 ####[facility] LABORATORYCLIA [id number] [place] [address] [place] CASE MANAGEMon 07-21-2022 CASE MANAGEM Normal [facility] CBC panel Auto (Bld)on 07-21 Erythrocyte distribution width (RBC) [Ratio] 14.3 % Normal 11.5-15.0 [facility] Comment on above: Order Comment: Speci men Type: BLOOD SPECIMENOrdering Facility: [facility] Address: [address] [place] [address] Performed By: #### 5 8410-2 ####[facility] LABORATORYCLIA [id number] [address] [place] Hematocrit (Bld) [Volume fraction] 34.0 % Low 36.0-46.0 [facility] Comment on above: Order Comment: Speci men Type: BLOOD SPECIMENOrdering Facility: [facility] Address: [address] [place] [address] Performed By: #### 5 8410-2 ####[facility]ORATORYCLIA [id number] [address] Hemoglobin (Bld) [Mass/Vol] 10.2 g/dL Low 11.5-15.5 [facility] Comment on above: Order Comment: Speci men Type: BLOOD SPECIMENOrdering Facility: [facility] Address: [address] [place] [address] Performed By: #### 5 8410-2 ####[facility] LABORATORYCLIA [id number] [address] MCH (RBC) [Entitic mass] 30.3 pg Normal 26.0-34.0 [facility] Comment on above: Order Comment: Speci men Type: BLOOD SPECIMENOrdering Facility: [facility] Address: [address] [place] [address] Performed By: #### 5 8410-2 ####[facility] LABORATORYCLIA [id number] [address] MCHC (RBC) [Mass/Vol] 30.0 g/dL Low 30.5-36.0 [facility] Comment on above: Order Comment: Speci men Type: BLOOD SPECIMENOrdering Facility: [facility] Address: [address] [place] [address] Performed By: #### 5 8410-2 ####[facility] LABORATORYCLIA [id number] [address] [facility] MCV (RBC) [Entitic vol] 100.9 fL High 80.0-100.0 [facility] Comment on above: Order Comment: Speci men Type: BLOOD SPECIMENOrdering Facility: [facility] Address: [address] [place] [address] Performed By: #### 5 8410-2 ####[facility] LABORATORYCLIA [id number] [place] [address] [place] Nucleated RBC (Bld) [#/Vol] 10*3/uL Normal <0.01 [facility] Comment on above: Order Comment: Speci men Type: BLOOD SPECIMENOrdering Facility: [facility] Address: [address] [place] [address] Performed By: #### 5 8410-2 ####[facility]ORATORYCLIA [id number] [place] [address] [place] Platelet mean volume (Bld) [Entitic vol] 8.5 fL Low 9.0-12.7 [facility] Comment on above: Order Comment: Speci men Type: BLOOD SPECIMENOrdering Facility: [facility] Address: [address] [place] [address] Performed By: #### 5 8410-2 ####[facility]ORATORYCLIA [id number] [address] [place] Platelets (Bld) [#/Vol] 414 10*3/uL High 150-400 [facility] Comment on above: Order Comment: Speci men Type: BLOOD SPECIMENOrdering Facility: [facility] Address: [address] [place] [address] Performed By: #### 5 8410-2 ####[facility]ORATORYCLIA [id number] [address] [place] RBC (Bld) [#/Vol] 3.37 10*6/uL Low 3.90-5.20 [facility] Comment on above: Order Comment: Speci men Type: BLOOD SPECIMENOrdering Facility: [facility] Address: [address] [place] [address] Performed By: #### 5 8410-2 ####[facility]ATORYCLIA [id number] [address] [place] WBC (Bld) [#/Vol] 8.97 10*3/uL Normal 3.70-11.00 [facility] Comment on above: Order Comment: Speci men Type: BLOOD SPECIMENOrdering Facility: [facility] Address: [address] [place] [address] Performed By: #### 5 8410-2 ####[facility]ATORYCLIA [id number] [address] CONSULT PROGon 07-21-2022 CONSULT PROG Normal [facility] DIGOXIN/LANOXINon 07-21-2022 Digoxin [Mass/Vol] 0.7 ng/mL Normal 0.5-1.0 [facility] Comment on above: Order Comment: Specximena duron Type: BLOOD SPECIMENOrdering Facility: [facility] Address: [address] [address] Result Comment: Prov ided therapeutic concentrations are based on the 2008 ESC Guidelines for the Diagnosis and Treatment of Acute and Chronic Heart Failure.Reference ranges and high/low indicator flags are provided as general guidelines only. The treating physician must determine appropriate target levels/dosing based on the specific clinical situation. Performed By: #### D IG ####[facility]ATORYCLIA [id number] [address] Hepatic function 2000 panelo n 07-21-2022 Albumin [Mass/Vol] 2.8 g/dL Low 3.9-4.9 [facility] Comment on above: Order Comment: Michelle duron Type: BLOOD SPECIMENOrdering Facility: [facility] Address: [address] [address] Performed By: #### 2 4321-2, 55775-5 ####[facility]ATORYCLIA [id number] [address] ALP [Catalytic activity/Vol] 107 U/L Normal 34-123 [facility] Comment on above: Order Comment: Michelle duron Type: BLOOD SPECIMENOrdering Facility: [facility] Address: [address] [address] Performed By: #### 2 4321-2, 38141-7 ####[facility]ORATORYCLIA [id number] [address] OF [facility] ALT With P-5'-P [Catalytic activity/Vol] 10 U/L Normal 7-38 [facility] Comment on above: Order Comment: Speci men Type: BLOOD SPECIMENOrdering Facility: [facility] Address: [address] [address] Performed By: #### 2 4320-2, 87690-7 ####[facility]ATORYCLIA [id number] [address] OF [facility] AST With P-5'-P [Catalytic activity/Vol] 12 U/L Low 13-35 [facility] Comment on above: Order Comment: Speci men Type: BLOOD SPECIMENOrdering Facility: [facility] Address: [address] [address] Performed By: #### 2 2, 95636-0 ####[facility]ORATORYCLIA [id number] [address] OF [place] Bilirubin [Mass/Vol] 0.2 mg/dL Normal 0.2-1.3 [facility] Comment on above: Order Comment: Speci men Type: BLOOD SPECIMENOrdering Facility: [facility] Address: [address] [address] Performed By: #### 2 4320-06, 76916-4 ####[facility]ATORYCLIA [id number] [address] Bilirubin.conjugated [Mass/Vol] mg/dL Normal <0.2 [facility] Comment on above: Order Comment: Speci men Type: BLOOD SPECIMENOrdering Facility: [facility] Address: [address] [address] Performed By: #### 2 2, 54104-9 ####[facility]ATORYCLIA [id number] [address] STATES OF [facility] Protein [Mass/Vol] 5.1 g/dL Low 6.3-8.0 [facility] Comment on above: Order Comment: Speci men Type: BLOOD SPECIMENOrdering Facility: [facility] Address: [address] [address] Performed By: #### 2 4320-2, 35337-7 ####[facility]ORATORYCLIA [id number] [place] [address] [place] LDH SerPl-cCncon 07-21-2022 LDH [Catalytic activity/Vol] 128 U/L Low 135-214 [facility] Comment on above: Order Comment: Speci men Type: BLOOD SPECIMENOrdering Facility: [facility] Address: [address] [place] [address] Performed By: #### 2 532-0 ####[facility]ORATORYCLIA [id number] [place] [address] [place] THERAPY NTon 07-21-2022 THERAPY NT Normal [facility] US THORACENTESIS BIon 2022 US THORACENTESIS BI Normal [facility] XR CHEST 1V FRONTALon 2022 XR CHEST 1V FRONTAL Normal [facility] XR CHEST 1V FRONTAL Normal [facility] ALLIED HEALTHon 07-20-2022 ALLIED HEALTH Normal [facility] Basic metabolic 2000 panelon 07-20-2022 Anion gap [Moles/Vol] 7 mmol/L Low 9-18 [facility] Comment on above: Order Comment: Speci men Type: BLOOD SPECIMENOrdering Facility: [facility] Address: [address] [place] [address] Performed By: #### 2 4321-2 ####[facility]ATORYCLIA [id number] [place] [address] [place] Calcium [Mass/Vol] 8.6 mg/dL Normal 8.5-10.2 [facility] Comment on above: Order Comment: Speci men Type: BLOOD SPECIMENOrdering Facility: [facility] Address: [address] [place] [address] Performed By: #### 2 4321-2 ####[facility]ORATORYCLIA [id number] [place] [address] [place] Chloride [Moles/Vol] 103 mmol/L Normal 97-105 [facility] Comment on above: Order Comment: Speci men Type: BLOOD SPECIMENOrdering Facility: [facility] Address: [address] [place] [address] Performed By: #### 2 4321-2 ####[facility]ATORYCLIA [id number] [address] STATES OF [facility] CO2 [Moles/Vol] 29 mmol/L Normal 22-30 [facility] Comment on above: Order Comment: Speci men Type: BLOOD SPECIMENOrdering Facility: [facility] Address: [address] [place] [address] Performed By: #### 2 4321-2 ####[facility]ORATORYCLIA [id number] [address] OF [facility] Creatinine [Mass/Vol] 0.58 mg/dL Normal 0.58-0.96 [facility] Comment on above: Order Comment: Speci men Type: BLOOD SPECIMENOrdering Facility: [facility] Address: [address] [place] [address] Performed By: #### 2 4321-2 ####[facility]ORATORYCLIA [id number] [address] ESTIMATED GLOMERULAR FILTRATION RATE 90 mL/min/1.73m??? Normal >=60 [facility] Comment on above: Order Comment: Speci men Type: BLOOD SPECIMENOrdering Facility: [facility] Address: [address] [place] [address] Result Comment: Ilda mated Glomerular Filtration Rate (eGFR) is calculated using the 2020 CKD-EPI creatinine equation. This equation utilizes serum creatinine, sex, and age as parameters. The creatinine assay has traceable calibration to isotope dilution-mass spectrometry. Refer to KDIGO guidelines for clinical interpretation. In patients with unstable renal function, e.g. those with acute kidney injury, the eGFR may not accurately reflect actual GFR. Performed By: #### 2 4321-2 ####[facility]ATORYCLIA [id number] [address] Glucose [Mass/Vol] 126 mg/dL High 74-99 [facility] Comment on above: Order Comment: Speci men Type: BLOOD SPECIMENOrdering Facility: [facility] Address: [address] [place], [place] [address] Result Comment: The [place] [employer] (ADA) provides guidance for cutoff values for fasting glucose and random glucose. The ADA defines fasting as no caloric intake for at least 8 hours. Fasting plasma glucose results between 100 to 125 mg/dL indicate increased risk for diabetes (prediabetes).Fasting plasma glucose results greater than or equal to 126 mg/dL meet the criteria for diagnosis of diabetes. In the absence of unequivocal hyperglycemia, results should be confirmed by repeat testing. In a patient with classic symptoms of hyperglycemia or hyperglycemic crisis, random plasma glucose results greater than or equal to 200 mg/dL meet the criteria for diagnosis of diabetes.Reference: Standards of Medical Care in Diabetes 2016, [place] [employer]. Diabetes Care. 2016.39(Suppl 1). Performed By: #### 2 4321-2 ####[facility]ORATORYCLIA [id number] [place] [address] [place] Potassium [Moles/Vol] 4.4 mmol/L Normal 3.7-5.1 [facility] Comment on above: Order Comment: Speci men Type: BLOOD SPECIMENOrdering Facility: [facility] Address: [address] [address] Performed By: #### 2 1-2 ####[facility]ORATORYCLIA [id number] [place] [address] [place] Sodium [Moles/Vol] 139 mmol/L Normal 136-144 [facility] Comment on above: Order Comment: Speci men Type: BLOOD SPECIMENOrdering Facility: [facility] Address: [address] [address] Performed By: #### 2 4321-2 ####[facility]ATORYCLIA [id number] [place] [address] [place] Urea nitrogen [Mass/Vol] 17 mg/dL Normal 7-21 [facility] Comment on above: Order Comment: Speci men Type: BLOOD SPECIMENOrdering Facility: [facility] Address: [address] [address] Performed By: #### 2 4321-2 ####[facility]ORATORYCLIA [id number] [address] [place] CASE MGT INIT ASSESon 2022 CASE MGT INIT ASSES Normal [facility] CBC panel Auto (Bld)on 07-20 Erythrocyte distribution width (RBC) [Ratio] 14.2 % Normal 11.5-15.0 [facility] Comment on above: Order Comment: Speci men Type: BLOOD SPECIMENOrdering Facility: [facility] Address: [address] [place] [address] Performed By: #### 5 8410-2 ####[facility]ATORYCLIA [id number] [address] Hematocrit (Bld) [Volume fraction] 30.5 % Low 36.0-46.0 [facility] Comment on above: Order Comment: Speci men Type: BLOOD SPECIMENOrdering Facility: [facility] Address: [address] [place] [address] Performed By: #### 5 8410-2 ####[facility]ORATORYCLIA [id number] [address] OF [facility] Hemoglobin (Bld) [Mass/Vol] 9.5 g/dL Low 11.5-15.5 [facility] Comment on above: Order Comment: Speci men Type: BLOOD SPECIMENOrdering Facility: [facility] Address: [address] [place] [address] Performed By: #### 5 8410-2 ####[facility]ORATORYCLIA [id number] [address] [place] MCH (RBC) [Entitic mass] 31.1 pg Normal 26.0-34.0 [facility] Comment on above: Order Comment: Speci men Type: BLOOD SPECIMENOrdering Facility: [facility] Address: [address] [place] [address] Performed By: #### 5 8410-2 ####[facility]ORATORYCLIA [id number] [address] [facility] MCHC (RBC) [Mass/Vol] 31.1 g/dL Normal 30.5-36.0 [facility] Comment on above: Order Comment: Speci men Type: BLOOD SPECIMENOrdering Facility: [facility] Address: [address] [place] [address] Performed By: #### 5 8410-2 ####[facility]ATORYCLIA [id number] [address] MCV (RBC) [Entitic vol] 100.0 fL Normal 80.0-100.0 [facility] Comment on above: Order Comment: Speci men Type: BLOOD SPECIMENOrdering Facility: [facility] Address: [address] [place] [address] Performed By: #### 5 8410-2 ####[facility]ATORYCLIA [id number] [address] [place] Nucleated RBC (Bld) [#/Vol] 10*3/uL Normal <0.01 [facility] Comment on above: Order Comment: Speci men Type: BLOOD SPECIMENOrdering Facility: [facility] Address: [address] [address] Performed By: #### 5 8410-2 ####[facility]ORATORYCLIA [id number] [address] [facility] Platelet mean volume (Bld) [Entitic vol] 8.9 fL Low 9.0-12.7 [facility] Comment on above: Order Comment: Speci men Type: BLOOD SPECIMENOrdering Facility: [facility] Address: [address] [address] Performed By: #### 5 8410-2 ####[facility]ATORYCLIA [id number] [address] [place] Platelets (Bld) [#/Vol] 426 10*3/uL High 150-400 [facility] Comment on above: Order Comment: Speci men Type: BLOOD SPECIMENOrdering Facility: [facility] Address: [address] [place] [address] Performed By: #### 5 8410-2 ####[facility]ATORYCLIA [id number] [address] [place] RBC (Bld) [#/Vol] 3.05 10*6/uL Low 3.90-5.20 [facility] Comment on above: Order Comment: Speci men Type: BLOOD SPECIMENOrdering Facility: [facility] Address: [address] [place] [address] Performed By: #### 5 8410-2 ####[facility]ATORYCLIA [id number] [address] OF [place] WBC (Bld) [#/Vol] 8.17 10*3/uL Normal 3.70-11.00 [facility] Comment on above: Order Comment: Speci men Type: BLOOD SPECIMENOrdering Facility: [facility] Address: [address] [place] [address] Performed By: #### 5 8410-2 ####[facility]ATORYCLIA [id number] [address] OF [facility] Lactate (Bld) [Moles/Vol]on 07-20-2022 Lactate [Moles/Vol] 1.7 mmol/L Normal 0.5-2.2 [facility] Comment on above: Order Comment: Speci men Type: BLOOD SPECIMENOrdering Facility: [facility] Address: [address] [place] [address] Performed By: #### 3 2693-4 ####[facility]ATORYCLIA [id number] [address] OF [place] XR CHEST 1V FRONTALon 2022 XR CHEST 1V FRONTAL Normal [facility] ALLIED HEALTHon 07-19-2022 ALLIED HEALTH Normal [facility] ANES PRE-OPon 07-19-2022 ANES PRE-OP Normal [facility] BF MANUAL DIFFon 07-19-2022 DIF TTL, BODY FLUID 100 cells counted Normal [facility] Comment on above: Order Comment: Speci men Type: THORACENTESISOrdering Facility: [facility] Address: [address] [place] [address] Performed By: #### L [id number], CCBF ####[facility]ATORYCLIA [id number] [address] [place] LYMPH%, BF 8 % Low 18-36 [facility] Comment on above: Order Comment: Speci men Type: THORACENTESISOrdering Facility: [facility] Address: [address] [place] [address] Performed By: #### L [id number], CCBF ####[facility]ATORYCLIA [id number] [address] [place] MACRO%, BF 1 % Low 64-80 [facility] Comment on above: Order Comment: Speci men Type: THORACENTESISOrdering Facility: [facility] Address: [address] [place] [address] Performed By: #### L [id number], CCBF ####[facility]ATORYCLIA [id number] [address] MES[place] %, BF 3 % High 0-2 [facility] Comment on above: Order Comment: Speci men Type: THORACENTESISOrdering Facility: [facility] Address: [address] [place] [address] Performed By: #### L [id number], CCBF ####[facility]ORYCLIA [id number] [address] MONO% BF 6 % Normal [facility] Comment on above: Order Comment: Speci men Type: THORACENTESISOrdering Facility: [facility] Address: [address] [place] [address] Performed By: #### L [id number], CCBF ####[facility]ORYCLIA [id number] [address] NEUT%, BF 82 % High 0-1 [facility] Comment on above: Order Comment: Speci men Type: THORACENTESISOrdering Facility: [facility] Address: [address] [place] [address] Performed By: #### L [id number], CCBF ####[facility]ORYCLIA [id number] [address] [place] DIF TTL, BODY FLUID 100 cells counted Normal [facility] Comment on above: Order Comment: Speci men Type: FLUID SPECIMENOrdering Facility: [facility] Address: [address] [place] [address] Performed By: #### L [id number], CCBF ####[facility]ORYCLIA [id number] [address] EOSIN%, BF 1 % Normal [facility] Comment on above: Order Comment: Speci men Type: FLUID SPECIMENOrdering Facility: [facility] Address: [address] [place] [address] Performed By: #### L [id number], CCBF ####[facility]ORYCLIA [id number] [address] OF [place] LYMPH%, BF 65 % High 18-36 [facility] Comment on above: Order Comment: Speci men Type: FLUID SPECIMENOrdering Facility: [facility] Address: [address] [place] [address] Performed By: #### L [id number], CCBF ####[facility]ORYCLIA [id number] [address] MONO% BF 4 % Normal [facility] Comment on above: Order Comment: Speci men Type: FLUID SPECIMENOrdering Facility: [facility] Address: [address] [place] [address] Performed By: #### L [id number], CCBF ####[facility]ORYCLIA [id number] [address] [place] NEUT%, BF 30 % High 0-1 [facility] Comment on above: Order Comment: Speci men Type: FLUID SPECIMENOrdering Facility: [facility] Address: [address] [place] [address] Performed By: #### L [id number], CCBF ####[facility]ORYCLIA [id number] [address] BODY FLUID CELL COUNTon 03-0 Clarity (Unsp spec) Clear Normal Clear [facility] Comment on above: Order Comment: Speci men Type: THORACENTESISOrdering Facility: [facility] Address: [address] [place] [address] Performed By: #### L [id number], CCBF ####[facility]ORYCLIA [id number] [address] Color (Body fld) Yellow Normal Yellow [facility] Comment on above: Order Comment: Speci men Type: THORACENTESISOrdering Facility: [facility] Address: [address] [place] [address] Performed By: #### L [id number], CCBF ####[facility]ORYCLIA [id number] [address] RBC Manual cnt (Body fld) [#/Vol] 6000 /uL High <2000 [facility] Comment on above: Order Comment: Speci men Type: THORACENTESISOrdering Facility: [facility] Address: [address] [place] [address] Performed By: #### L [id number], CCBF ####[facility]ORYCLIA [id number] [address] Specimen source Nom (Body fld) PLEURAL FLUID. Normal [facility] Comment on above: Order Comment: Speci men Type: THORACENTESISOrdering Facility: [facility] Address: [address] [place] [address] Performed By: #### L [id number], CCBF ####[facility]ORYCLIA [id number] [address] WBC Manual cnt (Body fld) [#/Vol] 198 /uL Normal <1000 [facility] Comment on above: Order Comment: Speci men Type: THORACENTESISOrdering Facility: [facility] Address: [address] [place] [address] Performed By: #### L [id number], CCBF ####[facility]ATORYCLIA [id number] [address] Clarity (Unsp spec) Clear Normal Clear [facility] Comment on above: Order Comment: Speci men Type: FLUID SPECIMENOrdering Facility: [facility] Address: [address] [place] [address] Performed By: #### L [id number], CCBF ####[facility]ORYCLIA [id number] [address] Color (Body fld) Cierra Abnormal Yellow [facility] Comment on above: Order Comment: Speci men Type: FLUID SPECIMENOrdering Facility: [facility] Address: [address] [place] [address] Performed By: #### L [id number], CCBF ####[facility]ORYCLIA [id number] [address] RBC Manual cnt (Body fld) [#/Vol] 0116119 /uL High <2000 [facility] Comment on above: Order Comment: Speci men Type: FLUID SPECIMENOrdering Facility: [facility] Address: [address] [place] [address] Performed By: #### L [id number], CCBF ####[facility]ORYCLIA [id number] [address] Specimen source Nom (Body fld) PERICARDIAL FLUID. Normal [facility] Comment on above: Order Comment: Speci men Type: FLUID SPECIMENOrdering Facility: [facility] Address: [address] [place] [address] Performed By: #### L [id number], CCBF ####[facility]ORYCLIA [id number] [address] WBC Manual cnt (Body fld) [#/Vol] 8500 /uL High <1000 [facility] Comment on above: Order Comment: Speci men Type: FLUID SPECIMENOrdering Facility: [facility] Address: [address] [place] [id number] Performed By: #### L [id number], CC ####[facility]ATORYCLIA [id number] [address] BRIEF OP NOTon 07-19-2022 BRIEF OP NOT Normal [facility] Bacteria Bld Culton 07-20-19 23 Bacteria identified Cx Nom (Bld) CULTURE, BLOOD: No growth 5 days Normal [facility] Comment on above: Performed By: #### 6 00-7 ####[facility]ORYCLIA [id number] [address] Bacteria Fld Culton 07-20-19 23 Bacteria identified Cx Nom (Body fld) CULTURE, BODY FLD: No growth 5 days GRAM STAIN: No organisms seen Few Polymorphonuclear leukocytes Moderate Red Blood Cells Normal [facility] Comment on above: Performed By: #### 6 11, 635-3, 06406-8 ####[facility] LABORATORYCLIA [id number] [address] Bacteria identified Cx Nom (Body fld) CULTURE, BODY FLD: No growth 5 days GRAM STAIN: No organisms seen Many Polymorphonuclear leukocytes Many Red Blood Cells Normal [facility] Comment on above: Performed By: #### 6 -, 635-3, 76489-6 ####[facility] LABORATORYCLIA [id number] [address] Bacteria Spec Anaerobe Culto n 07-19-2022 Bacteria identified Anaer cx Nom (Unsp spec) Negative Normal [facility] Comment on above: Performed By: #### 6 11-, 635-3, 60268-8 ####[facility]ATORYCLIA [id number] [address] Bacteria identified Anaer cx Nom (Unsp spec) Negative Normal [facility] Comment on above: Performed By: #### 6 -, 635-3, 10525-5 ####[facility]ORATORYCLIA [id number] [address] Basic metabolic 2000 panelon 07-19-2022 Anion gap [Moles/Vol] 8 mmol/L Low 9-18 [facility] Comment on above: Order Comment: Speci men Type: BLOOD SPECIMENOrdering Facility: [facility] Address: [address] [place] [address] Performed By: #### 2 4321-2 ####[facility] LABORATORYCLIA [id number] [place] [address] [place] Calcium [Mass/Vol] 9.2 mg/dL Normal 8.5-10.2 [facility] Comment on above: Order Comment: Speci men Type: BLOOD SPECIMENOrdering Facility: [facility] Address: [address] [place] [address] Performed By: #### 2 4321-2 ####[facility] LABORATORYCLIA [id number] [address] [place] Chloride [Moles/Vol] 103 mmol/L Normal 97-105 [facility] Comment on above: Order Comment: Speci men Type: BLOOD SPECIMENOrdering Facility: [facility] Address: [address] [place] [address] Performed By: #### 2 4321-2 ####[facility] LABORATORYCLIA [id number] [place] [address] [place] CO2 [Moles/Vol] 29 mmol/L Normal 22-30 [facility] Comment on above: Order Comment: Speci men Type: BLOOD SPECIMENOrdering Facility: [facility] Address: [address] [place] [address] Performed By: #### 2 4321-2 ####[facility] LABORATORYCLIA [id number] [address] [place] Creatinine [Mass/Vol] 0.60 mg/dL Normal 0.58-0.96 [facility] Comment on above: Order Comment: Speci men Type: BLOOD SPECIMENOrdering Facility: [facility] Address: [address] [place] [address] Performed By: #### 2 4321-2 ####[facility] LABORATORYCLIA [id number] [place] [address] [place] ESTIMATED GLOMERULAR FILTRATION RATE 89 mL/min/1.73m??? Normal >=60 [facility] Comment on above: Order Comment: Michelle duron Type: BLOOD SPECIMENOrdering Facility: [facility] Address: [address] [place] [address] Result Comment: Ilda mated Glomerular Filtration Rate (eGFR) is calculated using the 2020 CKD-EPI creatinine equation. This equation utilizes serum creatinine, sex, and age as parameters. The creatinine assay has traceable calibration to isotope dilution-mass spectrometry. Refer to KDIGO guidelines for clinical interpretation. In patients with unstable renal function, e.g. those with acute kidney injury, the eGFR may not accurately reflect actual GFR. Performed By: #### 2 4321-2 ####[facility] POINTIA [id number] [place] [address] [place] Glucose [Mass/Vol] 99 mg/dL Normal 74-99 [facility] Comment on above: Order Comment: Speci domi Type: BLOOD SPECIMENOrdering Facility: [facility] Address: [address] [place] [address] Result Comment: The [place] Diabetes Association (ADA) provides guidance for cutoff values for fasting glucose and random glucose. The ADA defines fasting as no caloric intake for at least 8 hours. Fasting plasma glucose results between 100 to 125 mg/dL indicate increased risk for diabetes (prediabetes).Fasting plasma glucose results greater than or equal to 126 mg/dL meet the criteria for diagnosis of diabetes. In the absence of unequivocal hyperglycemia, results should be confirmed by repeat testing. In a patient with classic symptoms of hyperglycemia or hyperglycemic crisis, random plasma glucose results greater than or equal to 200 mg/dL meet the criteria for diagnosis of diabetes.Reference: Standards of Medical Care in Diabetes 2016, [place] [employer] Association. Diabetes Care. 2016.39(Suppl 1). Performed By: #### 2 4321-2 ####[facility]ORATORYCLIA [id number] [place] [address] [place] Potassium [Moles/Vol] 4.1 mmol/L Normal 3.7-5.1 [facility] Comment on above: Order Comment: Speci men Type: BLOOD SPECIMENOrdering Facility: [facility] Address: [address] [place] [address] Performed By: #### 2 4321-2 ####[facility]ORATORYCLIA [id number] [address] STATES OF [facility] Sodium [Moles/Vol] 140 mmol/L Normal 136-144 [facility] Comment on above: Order Comment: Speci men Type: BLOOD SPECIMENOrdering Facility: [facility] Address: [address] [place] [address] Performed By: #### 2 4321-2 ####[facility] LABORATORYCLIA [id number] [address] [place] Urea nitrogen [Mass/Vol] 18 mg/dL Normal 7-21 [facility] Comment on above: Order Comment: Speci men Type: BLOOD SPECIMENOrdering Facility: [facility] Address: [address] [place] [address] Performed By: #### 2 4321-2 ####[facility]ORATORYCLIA [id number] [address] STATES OF [facility] CBC panel Auto (Bld)on 07-19 Erythrocyte distribution width (RBC) [Ratio] 14.3 % Normal 11.5-15.0 [facility] Comment on above: Order Comment: Speci men Type: BLOOD SPECIMENOrdering Facility: [facility] Address: [address] [place] [address] Performed By: #### 5 8410-2 ####[facility]ATORYCLIA [id number] [address] Hematocrit (Bld) [Volume fraction] 35.9 % Low 36.0-46.0 [facility] Comment on above: Order Comment: Speci men Type: BLOOD SPECIMENOrdering Facility: [facility] Address: [address] [place] [address] Performed By: #### 5 8410-2 ####[facility]ATORYCLIA [id number] [address] Hemoglobin (Bld) [Mass/Vol] 10.7 g/dL Low 11.5-15.5 [facility] Comment on above: Order Comment: Speci men Type: BLOOD SPECIMENOrdering Facility: [facility] Address: [address] [place] [address] Performed By: #### 5 8410-2 ####[facility]ORATORYCLIA [id number] [address] MCH (RBC) [Entitic mass] 30.8 pg Normal 26.0-34.0 [facility] Comment on above: Order Comment: Speci men Type: BLOOD SPECIMENOrdering Facility: [facility] Address: [address] [place] [address] Performed By: #### 5 8410-2 ####[facility]ORATORYCLIA [id number] [address] MCHC (RBC) [Mass/Vol] 29.8 g/dL Low 30.5-36.0 [facility] Comment on above: Order Comment: Speci men Type: BLOOD SPECIMENOrdering Facility: [facility] Address: [address] [place] [address] Performed By: #### 5 8410-2 ####[facility]ORATORYCLIA [id number] [address] STATES OF [facility] MCV (RBC) [Entitic vol] 103.5 fL High 80.0-100.0 [facility] Comment on above: Order Comment: Speci men Type: BLOOD SPECIMENOrdering Facility: [facility] Address: [address] [place] [address] Performed By: #### 5 8410-2 ####[facility]ATORYCLIA [id number] [address] Nucleated RBC (Bld) [#/Vol] 10*3/uL Normal <0.01 [facility] Comment on above: Order Comment: Speci men Type: BLOOD SPECIMENOrdering Facility: [facility] Address: [address] [address] Performed By: #### 5 8410-2 ####[facility]ORATORYCLIA [id number] [address] [place] Platelet mean volume (Bld) [Entitic vol] 8.9 fL Low 9.0-12.7 [facility] Comment on above: Order Comment: Speci men Type: BLOOD SPECIMENOrdering Facility: [facility] Address: [address] [place] [address] Performed By: #### 5 8410-2 ####[facility]ORATORYCLIA [id number] [place] [address] [place] Platelets (Bld) [#/Vol] 393 10*3/uL Normal 150-400 [facility] Comment on above: Order Comment: Speci men Type: BLOOD SPECIMENOrdering Facility: [facility] Address: [address] [place] [address] Performed By: #### 5 8410-2 ####[facility]ORATORYCLIA [id number] [place] [address] [place] RBC (Bld) [#/Vol] 3.47 10*6/uL Low 3.90-5.20 [facility] Comment on above: Order Comment: Speci men Type: BLOOD SPECIMENOrdering Facility: [facility] Address: [address] [place] [address] Performed By: #### 5 8410-2 ####[facility]ORATORYCLIA [id number] [address] [place] WBC (Bld) [#/Vol] 9.95 10*3/uL Normal 3.70-11.00 [facility] Comment on above: Order Comment: Speci men Type: BLOOD SPECIMENOrdering Facility: [facility] Address: [address] [place] [address] Performed By: #### 5 8410-2 ####[facility]ORATORYCLIA [id number] [address] CONSULT PROGon 07-19-2022 CONSULT PROG Normal [facility] CONSULT PROG Normal [facility] CYTOLOGY NON-GYNon 3 CASE REPORT Normal [facility] Comment on above: Order Comment: Speci men Type: FLUID SPECIMENOrdering Facility: [facility] Address: [address] [place] [address] Result Comment: [facility] Cytology Report Case: [id number] Provider: Armand Becker MD Collected: 07/19/2022 05:01 PMOrdering Location: [address] Received: 07/20/2022 04:19 AMPathologist: KARLA Silveirapecimens: A) - PERICARDIAL FLUID. B) - PLEURAL FLUID. Performed By: #### C YTONON ####[facility] LABORATORYCLIA [id number] [address] CLINICAL HISTORY Normal [facility] Comment on above: Order Comment: Speci men Type: FLUID SPECIMENOrdering Facility: [facility] Address: [address] [place] [address] Result Comment: Pre- op diagnosis:Pericardial effusion [I31.39] Performed By: #### C YTONON ####[facility]ORATORYCLIA [id number] [address] DIAGNOSIS COMMENT Normal [facility] Comment on above: Order Comment: Speci men Type: FLUID SPECIMENOrdering Facility: [facility] Address: [address] [place] [address] Result Comment: Immu nostains were applied to consider an occult malignancy and results are negative ( negative GATA3, estrogen receptor, and TTF1). Mesothelial markers, calretinin and D2-40 are positive. Results support the above diagnosis.Laboratory Developed Test (LDT) Disclaimer:Performance characteristics of immunohistochemical, immunofluorescent and chromogenic in-situ hybridization tests have been determined by the performing laboratory within [facility]???s [facility] [place] ([facility], [facility], [facility], [facility], [facility], or [facility]) in a manner consistent with CLIA requirements. One or more of these tests have not been cleared or approved by the FDA. [facility] is regulated under CLIA as qualified to perform high-complexity testing. These tests are used for clinical purposes. They should not be regarded as investigational or for research. Positive and negative controls stain appropriately. Performed By: #### C YTONON ####[facility]ORATORYCLIA [id number] [address] FINAL DIAGNOSIS Normal [facility] Comment on above: Order Comment: Speci men Type: FLUID SPECIMENOrdering Facility: [facility] Address: [address] [place] [address] Result Comment: A - PERICARDIAL FLUID. Negative for malignant cells.B - PLEURAL FLUID. Negative for malignant cells. Reactive mesothelial cells. See comment.The following cell blocks were associated with this case:A1 Cell Block, Formalin Fixed [place]B1 Cell Block, Formalin Fixed [place] Performed By: #### C YTONON ####[facility]ORATORYCLIA [id number] [address] FINAL PERFORMING LAB Normal [facility] Comment on above: Order Comment: Speci men Type: FLUID SPECIMENOrdering Facility: [facility] Address: [address] [place] [address] Result Comment: Tech nical component, ditch digger screening performed at [facility], [address] [place] [address] CLIA# [id number] interpretation performed at [facility], [address] [place] [address] CLIA# [id number] Director: Steve Marrero M.D. Performed By: #### C YTONON ####[facility] LABORATORYIA [id number] [address] GROSS DESCRIPTION Normal [facility] Comment on above: Order Comment: Speci men Type: FLUID SPECIMENOrdering Facility: [facility] Address: [address] [address] Result Comment: A. P ERICARDIAL FLUID.30 cc cloudy red fluid. ThinPrep and Cell Block prepared.B. PLEURAL FLUID.25 cc hazy yellow fluid with material. ThinPrep and Cell Block prepared. Performed By: #### C NADIYA ####[facility]ORATORYCLIA [id number] [address] ORDER COMMENT Normal [facility] Comment on above: Order Comment: Speci men Type: FLUID SPECIMENOrdering Facility: [facility] Address: [address] [place] [address] Result Comment: Pre- op diagnosis:Pericardial effusion [I31.39] Performed By: #### C NADIYA ####[facility] LABORATORYIA [id number] [address] Glucose Fld-mCncon Glucose (Body fld) [Mass/Vol] 125 mg/dL Normal See Comment [facility] Comment on above: Order Comment: Speci men Type: THORACENTESISOrdering Facility: [facility] Address: [address] [place] [address] Result Comment: Syno vial fluid: Synovial fluid glucose measurement may be useful in classifying various joint disorders. A concurrent plasma glucose measurement should be performed to determine the glucose plasma minus glucose synovial fluid???difference, which is normally <= 10.0 mg/dL.Artificial lowering of synovial fluid glucose, due to glycolytic action of leukocytes, may result from analyses that occur more than one hour from the time of collection.Reference: 1. CLSI. Analysis of Body Fluids in Clinical Chemistry Approved Guideline. CLSI document C49A. TRUDY [place]: Clinical Laboratory Standards [place]: 2007. Performed By: #### 2 881-1, 2529-6, 2344-0 ####[facility] LABCLIA [id number] [facility] [id number] [place] INTRAOPERATIVE ECHO PREon INTRAOPERATIVE ECHO PRE Normal [facility] LDH Fld-cCncon 07-19-2022 LDH (Body fld) [Catalytic activity/Vol] 120 U/L Normal See Comment [facility] Comment on above: Order Comment: Speci men Type: THORACENTESISOrdering Facility: [facility] Address: [address] [id number] Result Comment: Pleu ral fluids: Pleural fluid lactate dehydrogenase (LDH) measurements may be useful for classifying pleural effusions as exudates. A ratio of pleural fluid LDH to a concurrent serum LDH > 0.6 is suggestive of exudate.Peritoneal fluids: Ascitic fluid LDH measurements may aid in characterizing secondary peritonitis and should be interpreted along with other clinical and laboratory information.Synovial fluids: Synovial fluid LDH measurements may be useful as an inflammatory marker for various arthritic conditions and should be interpreted along with other clinical and laboratory information.Reference: 1. CLSI. Analysis of Body Fluids in Clinical Chemistry Approved Guideline. CLSI document C49A. TRUDY [place]: Clinical Laboratory Standards [place]: 2007.Reference: 2. Saida MCCLELLAN, Kenyon Vela. Body fluid analysis: clinical utility and applicability of published studies to guide interpretation of today's laboratory testing in serous fluids. Crit Rev Clin Lab Sci, 2013:50(4,5):107 to 124.Reference: 3. Man M, Goldy A, Batsheva MCCLELLAN. Lactate dehydrogenase activity and its isoenzymes in serum and synovial fluid of patients with rheumatoid arthritis and osteoarthritis. J Rheumatol. 1992:19:529 to 533. Performed By: #### 2 881-1, 2529-6, 2344-0 ####[facility] LABCLIA [id number] [address] [address] [place] Microorganism Spec Culton Microorganism identified Cx Nom (Unsp spec) CULTURE, AFB: No Acid Fast Bacilli isolated after 42 days AFB STAIN: No acid fast bacilli seen by flurochrome stain Normal [facility] Comment on above: Performed By: #### 6 11-4, 635-3, 84769-7 ####[facility]ORATORYCLIA [id number] [place] [address] [place] Microorganism identified Cx Nom (Unsp spec) CULTURE, AFB: No Acid Fast Bacilli isolated after 42 days AFB STAIN: No acid fast bacilli seen by flurochrome stain Normal [facility] Comment on above: Performed By: #### 6 11-4, 635-3, 85017-6 ####[facility]ORATORYCLIA [id number] [address] PH PLEURAL FLUIDon 3 Fluid Nom (Body fld) PLURAL Normal [facility] Comment on above: Order Comment: Speci men Type: THORACENTESISOrdering Facility: [facility] Address: [address] [place] [address] Performed By: #### L [id number] ####[facility]ORATORYCLIA [id number] [address] pH (Body fld) 7.6 [pH] Normal [facility] Comment on above: Order Comment: Speci men Type: THORACENTESISOrdering Facility: [facility] Address: [address] [place] [address] Result Comment: No r eference range has been established for this specimen type. Performed By: #### L [id number] ####[facility]ORATORYCLIA [id number] [address] Prot Fld-mCncon 07-19-2022 Protein (Body fld) [Mass/Vol] 2.8 g/dL Normal See Comment [facility] Comment on above: Order Comment: Speci [facility] Type: THORACENTESISOrdering Facility: [facility] Address: [address] [place] [address] Result Comment: Sero us fluids: Effusions are the accumulation of clinically detected fluid in any of the serous cavities. Effusions are further into transudates and exudates, which aid in determining the etiology of the effusion.Transudate: Body fluid total protein measurement < 3.0 g/dL. A ratio of serous fluid total protein to a concurrent serum total protein < 0.5 indicates a transudate.Exudate: Body fluid total protein measurement >= 3.0 g/dL. A ratio of serous fluid total protein to a concurrent serum total protein >= 0.5 indicates an exudate.Reference: 1. CLSI. Analysis of Body Fluids in Clinical Chemistry Approved Guideline. CLSI document C49A. TRUDY Bradley: Clinical Laboratory Standards [place]: 2007. Performed By: #### 2 881-1, 2529-6, 2344-0 ####[facility] LABCLIA [id number] [facility] [id number] SURGICAL PATHOLOGYon 023 CASE REPORT Normal [facility] Comment on above: Order Comment: Speci men Type: TISSUE SPECIMENOrdering Facility: [facility] Address: [address] [place] [address] Result Comment: Surg ical Pathology Report Case: [id number] Provider: Armand Becker MD Collected: 07/19/2022 04:59 PMOrdering Location: [address] Received: 07/20/2022 08:11 AMPathologist: KARLA Tampecimen: PERICARDIUM Performed By: #### S ####[facility] LABORATORYCLIA [id number] [address] CLINICAL HISTORY Normal [facility] Comment on above: Order Comment: Speci men Type: TISSUE SPECIMENOrdering Facility: [facility] Address: [address] [place] [address] Result Comment: Pre- op diagnosis:Pericardial effusion [I31.39] Performed By: #### S ####[facility]ORATORYCLIA [id number] [address] DIAGNOSIS COMMENT There is no evidence of atypia or malignancy seen. This case was reviewed by Dr. Fritz Corona who agrees with this assessment. Normal [facility] Comment on above: Order Comment: Speci men Type: TISSUE SPECIMENOrdering Facility: [facility] Address: [address] [place] [address] Performed By: #### S ####[facility]ORATORYCLIA [id number] [address] FINAL DIAGNOSIS Normal [facility] Comment on above: Order Comment: Speci men Type: TISSUE SPECIMENOrdering Facility: [facility] Address: [address] [place] [address] Result Comment: A. P ericardium, biopsy:- Fibrinous pericarditis. See comment. Performed By: #### S ####[facility]ORATORYCLIA [id number] [address] FINAL PERFORMING LAB Normal [facility] Comment on above: Order Comment: Speci men Type: TISSUE SPECIMENOrdering Facility: [facility] Address: [address] [place] [address] Result Comment: Diag nostic interpretation performed at [facility], [address] [place] [address] CLIA# [id number] Director: Steve Marrero M.D. Performed By: #### S ####[facility]ORATORYCLIA [id number] [address] GROSS DESCRIPTION A. PERICARDIUM Normal [facility] Comment on above: Order Comment: Speci men Type: TISSUE SPECIMENOrdering Facility: [facility] Address: [address] [place] [address] Result Comment: Rece ived in formalin labeled as pericardium is a ennis, irregularly shaped, slightly roughened and cauterized tissue fragment measuring 0.9 x 0.5 x 0.3 cm. The specimen is bisected and totally submitted in 1 cassette.Gross examination performed at [facility], [address] [place] [address] CLIA# [id number] July 21, 2022 12:47 PM Performed By: #### S ####[facility] LABORATORYCLIA [id number] [address] Vancomycin random [Mass/Vol] on 07-19-2022 Vancomycin [Mass/Vol] 12.8 ug/mL Normal 10.0-20.0 [facility] Comment on above: Order Comment: Speci men Type: BLOOD SPECIMENOrdering Facility: [facility] Address: [address] [address] Result Comment: Refe rence ranges and high/low indicator flags are provided as general guidelines only. The treating physician must determine appropriate target levels/dosing based on the specific clinical situation. Performed By: #### 4 091-5 ####[facility] LABORATORYCLIA [id number] [place] [address] [place] XR CHEST 1V FRONTALon 2022 XR CHEST 1V FRONTAL Normal [facility] ALLIED HEALTHon 07-18-2022 ALLIED HEALTH Normal [facility] ALLIED HEALTH Normal [facility] Basic metabolic 2000 panelon 07-18-2022 Anion gap [Moles/Vol] 11 mmol/L Normal 9-18 [facility] Comment on above: Order Comment: Speci men Type: BLOOD SPECIMENOrdering Facility: [facility] Address: [address] [place] [address] Performed By: #### 2 4321-2 ####[facility] LABORATORYCLIA [id number] [place] [address] [place] Calcium [Mass/Vol] 9.1 mg/dL Normal 8.5-10.2 [facility] Comment on above: Order Comment: Speci men Type: BLOOD SPECIMENOrdering Facility: [facility] Address: [address] [place] [address] Performed By: #### 2 4321-2 ####[facility] LABORATORYCLIA [id number] [place] [address] [place] Chloride [Moles/Vol] 99 mmol/L Normal 97-105 [facility] Comment on above: Order Comment: Speci men Type: BLOOD SPECIMENOrdering Facility: [facility] Address: [address] [address] Performed By: #### 2 4321-2 ####[facility] LABORATORYCLIA [id number] [place] [address] [place] CO2 [Moles/Vol] 26 mmol/L Normal 22-30 [facility] Comment on above: Order Comment: Speci men Type: BLOOD SPECIMENOrdering Facility: [facility] Address: [address] [address] Performed By: #### 2 4321-2 ####[facility]CL[facility] [id number] [address] Creatinine [Mass/Vol] 0.64 mg/dL Normal 0.58-0.96 [facility] Comment on above: Order Comment: Speci men Type: BLOOD SPECIMENOrdering Facility: [facility] Address: [address] [address] Performed By: #### 2 4321-2 ####[facility] LABORATORYCLIA [id number] [address] ESTIMATED GLOMERULAR FILTRATION RATE 88 mL/min/1.73m??? Normal >=60 [facility] Comment on above: Order Comment: Speci men Type: BLOOD SPECIMENOrdering Facility: [facility] Address: [address] [place] [address] Result Comment: Ilda mated Glomerular Filtration Rate (eGFR) is calculated using the 2020 CKD-EPI creatinine equation. This equation utilizes serum creatinine, sex, and age as parameters. The creatinine assay has traceable calibration to isotope dilution-mass spectrometry. Refer to KDIGO guidelines for clinical interpretation. In patients with unstable renal function, e.g. those with acute kidney injury, the eGFR may not accurately reflect actual GFR. Performed By: #### 2 4321-2 ####[facility] LABORATORYCLIA [id number] [place] [id number] [place] Glucose [Mass/Vol] 142 mg/dL High 74-99 [facility] Comment on above: Order Comment: Speci men Type: BLOOD SPECIMENOrdering Facility: [facility] Address: [address] [place] [address] Result Comment: The [place] [employer] (ADA) provides guidance for cutoff values for fasting glucose and random glucose. The ADA defines fasting as no caloric intake for at least 8 hours. Fasting plasma glucose results between 100 to 125 mg/dL indicate increased risk for diabetes (prediabetes).Fasting plasma glucose results greater than or equal to 126 mg/dL meet the criteria for diagnosis of diabetes. In the absence of unequivocal hyperglycemia, results should be confirmed by repeat testing. In a patient with classic symptoms of hyperglycemia or hyperglycemic crisis, random plasma glucose results greater than or equal to 200 mg/dL meet the criteria for diagnosis of diabetes.Reference: Standards of Medical Care in Diabetes 2016, [place] [employer]. Diabetes Care. 2016.39(Suppl 1). Performed By: #### 2 4321-2 ####[facility] LABORATORYCLIA [id number] [place] [address] [place] Potassium [Moles/Vol] 4.2 mmol/L Normal 3.7-5.1 [facility] Comment on above: Order Comment: Speci men Type: BLOOD SPECIMENOrdering Facility: [facility] Address: [address] [place] [address] Performed By: #### 2 4321-2 ####[facility]ORATORYCLIA [id number] [place] [address] [place] Sodium [Moles/Vol] 136 mmol/L Normal 136-144 [facility] Comment on above: Order Comment: Speci men Type: BLOOD SPECIMENOrdering Facility: [facility] Address: [address] [place] [address] Performed By: #### 2 4321-2 ####[facility] LABORATORYCLIA [id number] [place] [address] [place] Urea nitrogen [Mass/Vol] 21 mg/dL Normal 7-21 [facility] Comment on above: Order Comment: Speci men Type: BLOOD SPECIMENOrdering Facility: [facility] Address: [address] [address] Performed By: #### 2 4321-2 ####[facility] LABORATORYCLIA [id number] [place] [address] [place] Anion gap [Moles/Vol] 11 mmol/L Normal 9-18 [facility] Comment on above: Order Comment: Speci men Type: BLOOD SPECIMENOrdering Facility: [facility] Address: [address] [address] Performed By: #### 2 4325-3, 3040-3, 36876-5 ####[facility] LABORATORYCLIA [id number] [place] [address] [place] Calcium [Mass/Vol] 8.9 mg/dL Normal 8.5-10.2 [facility] Comment on above: Order Comment: Speci men Type: BLOOD SPECIMENOrdering Facility: [facility] Address: [address] [place] [address] Performed By: #### 2 4325-3, 3040-3, 93514-2 ####[facility]ATORYCLIA [id number] [place] [address] [place] Chloride [Moles/Vol] 98 mmol/L Normal 97-105 [facility] Comment on above: Order Comment: Speci men Type: BLOOD SPECIMENOrdering Facility: [facility] Address: [address] [place] [address] Performed By: #### 2 4324-3, 3040-3, 56582-0 ####[facility]ORATORYCLIA [id number] [address] [place] CO2 [Moles/Vol] 25 mmol/L Normal 22-30 [facility] Comment on above: Order Comment: Speci men Type: BLOOD SPECIMENOrdering Facility: [facility] Address: [address] [place] [address] Performed By: #### 2 4325-3, 3040-3, 70002-2 ####[facility]ATORYCLIA [id number] [place] [address] [place] Creatinine [Mass/Vol] 0.71 mg/dL Normal 0.58-0.96 [facility] Comment on above: Order Comment: Speci men Type: BLOOD SPECIMENOrdering Facility: [facility] Address: [address] [place] [address] Performed By: #### 2 4325-3, 3040-3, 11150-4 ####[facility]ORATORYCLIA [id number] [place] [address] [place] ESTIMATED GLOMERULAR FILTRATION RATE 84 mL/min/1.73m??? Normal >=60 [facility] Comment on above: Order Comment: Michelle duron Type: BLOOD SPECIMENOrdering Facility: [facility] Address: [address] [place] [address] Result Comment: Ilda mated Glomerular Filtration Rate (eGFR) is calculated using the 2020 CKD-EPI creatinine equation. This equation utilizes serum creatinine, sex, and age as parameters. The creatinine assay has traceable calibration to isotope dilution-mass spectrometry. Refer to KDIGO guidelines for clinical interpretation. In patients with unstable renal function, e.g. those with acute kidney injury, the eGFR may not accurately reflect actual GFR. Performed By: #### 2 4325-3, 3040-3, 05210-3 ####[facility]CLIA [id number] [place] [address] [place] Glucose [Mass/Vol] 177 mg/dL High 74-99 [facility] Comment on above: Order Comment: Michelle duron Type: BLOOD SPECIMENOrdering Facility: [facility] Address: [address] [place] [address] Result Comment: The [place] Diabetes Association (ADA) provides guidance for cutoff values for fasting glucose and random glucose. The ADA defines fasting as no caloric intake for at least 8 hours. Fasting plasma glucose results between 100 to 125 mg/dL indicate increased risk for diabetes (prediabetes).Fasting plasma glucose results greater than or equal to 126 mg/dL meet the criteria for diagnosis of diabetes. In the absence of unequivocal hyperglycemia, results should be confirmed by repeat testing. In a patient with classic symptoms of hyperglycemia or hyperglycemic crisis, random plasma glucose results greater than or equal to 200 mg/dL meet the criteria for diagnosis of diabetes.Reference: Standards of Medical Care in Diabetes 2016, [place] [employer]. Diabetes Care. 2016.39(Suppl 1). Performed By: #### 2 4325-3, 3040-3, 09370-7 ####[facility]ORATORYCLIA [id number] [place] [address] [place] Potassium [Moles/Vol] 4.4 mmol/L Normal 3.7-5.1 [facility] Comment on above: Order Comment: Michelle duron Type: BLOOD SPECIMENOrdering Facility: [facility] Address: [address] [address] Performed By: #### 2 4325-3, 3040-3, 15604-3 ####[facility]ORATORYCLIA [id number] [address] Sodium [Moles/Vol] 134 mmol/L Low 136-144 [facility] Comment on above: Order Comment: Speci men Type: BLOOD SPECIMENOrdering Facility: [facility] Address: [address] [place] [address] Performed By: #### 2 4325-3, 3040-3, 59961-6 ####[facility]ORATORYCLIA [id number] [address] [place] Urea nitrogen [Mass/Vol] 22 mg/dL High 7-21 [facility] Comment on above: Order Comment: Speci men Type: BLOOD SPECIMENOrdering Facility: [facility] Address: [address] [place] [address] Performed By: #### 2 4325-3, 3040-3, 78861-6 ####[facility]ORATORYCLIA [id number] [address] [place] CBC panel Auto (Bld)on 07-18 Erythrocyte distribution width (RBC) [Ratio] 14.5 % Normal 11.5-15.0 [facility] Comment on above: Order Comment: Speci men Type: BLOOD SPECIMENOrdering Facility: [facility] Address: [address] [place] [address] Performed By: #### 5 8410-2 ####[facility]ORATORYCLIA [id number] [address] Hematocrit (Bld) [Volume fraction] 35.9 % Low 36.0-46.0 [facility] Comment on above: Order Comment: Speci men Type: BLOOD SPECIMENOrdering Facility: [facility] Address: [address] [place] [address] Performed By: #### 5 8410-2 ####[facility]ORATORYCLIA [id number] [address] STATES OF [facility] Hemoglobin (Bld) [Mass/Vol] 11.0 g/dL Low 11.5-15.5 [facility] Comment on above: Order Comment: Speci men Type: BLOOD SPECIMENOrdering Facility: [facility] Address: [address] [place] [address] Performed By: #### 5 8410-2 ####[facility]ORATORYCLIA [id number] [address] MCH (RBC) [Entitic mass] 31.3 pg Normal 26.0-34.0 [facility] Comment on above: Order Comment: Speci men Type: BLOOD SPECIMENOrdering Facility: [facility] Address: [address] [place] [address] Performed By: #### 5 8410-2 ####[facility]ORATORYCLIA [id number] [address] [place] [facility] MCHC (RBC) [Mass/Vol] 30.6 g/dL Normal 30.5-36.0 [facility] Comment on above: Order Comment: Speci men Type: BLOOD SPECIMENOrdering Facility: [facility] Address: [address] [place] [address] Performed By: #### 5 8410-2 ####[facility]ORATORYCLIA [id number] [address] [place] MCV (RBC) [Entitic vol] 102.3 fL High 80.0-100.0 [facility] Comment on above: Order Comment: Speci men Type: BLOOD SPECIMENOrdering Facility: [facility] Address: [address] [place] [address] Performed By: #### 5 8410-2 ####[facility]ATORYCLIA [id number] [address] Nucleated RBC (Bld) [#/Vol] 10*3/uL Normal <0.01 [facility] Comment on above: Order Comment: Speci men Type: BLOOD SPECIMENOrdering Facility: [facility] Address: [address] [address] Performed By: #### 5 8410-2 ####[facility]ORATORYCLIA [id number] [address] [place] Platelet mean volume (Bld) [Entitic vol] 8.9 fL Low 9.0-12.7 [facility] Comment on above: Order Comment: Speci men Type: BLOOD SPECIMENOrdering Facility: [facility] Address: [address] [place] [address] Performed By: #### 5 8410-2 ####[facility]ORATORYCLIA [id number] [address] [place] Platelets (Bld) [#/Vol] 425 10*3/uL High 150-400 [facility] Comment on above: Order Comment: Speci men Type: BLOOD SPECIMENOrdering Facility: [facility] Address: [address] [place] [address] Performed By: #### 5 8410-2 ####[facility]ORATORYCLIA [id number] [place] [address] [place] RBC (Bld) [#/Vol] 3.51 10*6/uL Low 3.90-5.20 [facility] Comment on above: Order Comment: Speci men Type: BLOOD SPECIMENOrdering Facility: [facility] Address: [address] [place] [address] Performed By: #### 5 8410-2 ####[facility]ORATORYCLIA [id number] [address] [place] WBC (Bld) [#/Vol] 16.52 10*3/uL High 3.70-11.00 [facility] Comment on above: Order Comment: Speci men Type: BLOOD SPECIMENOrdering Facility: [facility] Address: [address] [place] [address] Performed By: #### 5 8410-2 ####[facility]ORATORYCLIA [id number] [address] CONFIRM BLOOD TYPEon 023 ABO A Normal [facility] Comment on above: Order Comment: Speci men Type: BLOOD SPECIMENOrdering Facility: [facility] Address: [address] [place] [address] Performed By: #### C ONABO ####[facility] BANKCLIA [id number] [address] Rh Nom (Bld) Positive Normal [facility] Comment on above: Order Comment: Speci men Type: BLOOD SPECIMENOrdering Facility: [facility] Address: [address] [place] [address] Performed By: #### C ONABO ####[facility] BANKCLIA [id number] [address] CONSULT PROGon 07-18-2022 CONSULT PROG Normal [facility] ECG COMPLETEon 07-18-2022 ECG COMPLETE Normal [facility] HIGH SENSITIVITY TROPONIN To n 07-18-2022 HIGH SENSITIVITY ARLINE 21 ng/L High <12 [facility] Comment on above: Order Comment: Speci domi Type: BLOOD SPECIMENOrdering Facility: [facility] Address: [address] [place] [address] Result Comment: When assessing risk for acute coronary syndromes: In patients undergoing blood draw greater than or equal to 2 hours from symptom onset, with history of very low to moderate risk and non-ischemic ECG, an initial hs-Troponin T less than 12 ng/L AND a 1 hour delta hs-Troponin T less than 3 ng/L should be considered very low risk for 30 day MACE. Performed By: #### H STNT ####[facility]ATORYCLIA [id number] [address] HIGH SENSITIVITY ARLINE 18 ng/L High <12 [facility] Comment on above: Order Comment: Michelle duron Type: BLOOD SPECIMENOrdering Facility: [facility] Address: [address] [place] [address] Result Comment: When assessing risk for acute coronary syndromes: In patients undergoing blood draw greater than or equal to 2 hours from symptom onset, with history of very low to moderate risk and non-ischemic ECG, an initial hs-Troponin T less than 12 ng/L AND a 1 hour delta hs-Troponin T less than 3 ng/L should be considered very low risk for 30 day MACE. Performed By: #### H STNT ####[facility]ORATORYCLIA [id number] [address] [place] HIGH SENSITIVITY ARLINE 21 ng/L High <12 [facility] Comment on above: Order Comment: Michelle duron Type: BLOOD SPECIMENOrdering Facility: [facility] Address: [address] [place] [address] Result Comment: When assessing risk for acute coronary syndromes: In patients undergoing blood draw greater than or equal to 2 hours from symptom onset, with history of very low to moderate risk and non-ischemic ECG, an initial hs-Troponin T less than 12 ng/L AND a 1 hour delta hs-Troponin T less than 3 ng/L should be considered very low risk for 30 day MACE. Performed By: #### H STNT ####[facility]ORATORYCLIA [id number] [address] Hepatic function 2000 panelo n 07-18-2022 Albumin [Mass/Vol] 3.2 g/dL Low 3.9-4.9 [facility] Comment on above: Order Comment: Michelle duron Type: BLOOD SPECIMENOrdering Facility: [facility] Address: [address] [place] [address] Performed By: #### 2 4325-3, 3040-3, 56890-5 ####[facility]ORATORYCLIA [id number] [address] [place] ALP [Catalytic activity/Vol] 153 U/L High 34-123 [facility] Comment on above: Order Comment: Michelle duron Type: BLOOD SPECIMENOrdering Facility: [facility] Address: [address] [place] [address] Performed By: #### 2 4325-3, 3040-3, 22285-2 ####[facility]ORATORYCLIA [id number] [address] STATES OF [facility] ALT With P-5'-P [Catalytic activity/Vol] 11 U/L Normal 7-38 [facility] Comment on above: Order Comment: Speci men Type: BLOOD SPECIMENOrdering Facility: [facility] Address: [address] [place] [address] Performed By: #### 2 4325-3, 3040-3, 22520-4 ####[facility]ATORYCLIA [id number] [address] OF [facility] AST With P-5'-P [Catalytic activity/Vol] Normal [facility] Comment on above: Order Comment: Speci men Type: BLOOD SPECIMENOrdering Facility: [facility] Address: [address] [place] [address] Result Comment: Unab le to assay due to interference from hemolysis. Suggest reorder as clinically indicated. Performed By: #### 2 4325-3, 3040-3, 18018-2 ####[facility]ATORYCLIA [id number] [address] STATES OF [facility] Bilirubin [Mass/Vol] 0.5 mg/dL Normal 0.2-1.3 [facility] Comment on above: Order Comment: Speci men Type: BLOOD SPECIMENOrdering Facility: [facility] Address: [address] [place] [address] Performed By: #### 2 4325-3, 3040-3, 99743-4 ####[facility]ATORYCLIA [id number] [address] STATES OF [facility] Bilirubin.conjugated [Mass/Vol] Normal [facility] Comment on above: Order Comment: Speci men Type: BLOOD SPECIMENOrdering Facility: [facility] Address: [address] [place] [address] Result Comment: Unab le to assay due to interference from hemolysis. Suggest reorder as clinically indicated. Performed By: #### 2 4325-3, 3040-3, 48314-3 ####[facility]ATORYCLIA [id number] [address] [place] Protein [Mass/Vol] 6.2 g/dL Low 6.3-8.0 [facility] Comment on above: Order Comment: Speci men Type: BLOOD SPECIMENOrdering Facility: [facility] Address: [address] [place] [address] Performed By: #### 2 4325-3, 3040-3, 47288-0 ####[facility]ATORYCLIA [id number] [address] [place] Hgb Bld-mCncon 07-18-2022 Hemoglobin (Bld) [Mass/Vol] 11.0 g/dL Low 11.5-15.5 [facility] Comment on above: Order Comment: Speci men Type: BLOOD SPECIMENOrdering Facility: [facility] Address: [address] [place] [address] Performed By: #### 7 18-7 ####[facility]ORATORYCLIA [id number] [address] Lactate (Bld) [Moles/Vol]on 07-18-2022 Lactate [Moles/Vol] 2.1 mmol/L Normal 0.5-2.2 [facility] Comment on above: Order Comment: Speci men Type: BLOOD SPECIMENOrdering Facility: [facility] Address: [address] [place] [address] Performed By: #### 3 2693-4 ####[facility] LABORATORYCLIA [id number] [address] Lipase SerPl-cCncon 07-19-19 23 Lipase [Catalytic activity/Vol] 17 U/L Normal 16-61 [facility] Comment on above: Order Comment: Speci men Type: BLOOD SPECIMENOrdering Facility: [facility] Address: [address] [place] [address] Performed By: #### 2 4325-3, 3040-3, 38333-6 ####[facility]ORATORYCLIA [id number] [address] [place] TYPE + SCREENon 07-18-2022 ABO A Normal [facility] Comment on above: Order Comment: Speci men Type: BLOOD SPECIMENOrdering Facility: [facility] Address: [address] [place] [address] Performed By: #### T SCR ####[facility] BANKCLIA [id number] [address] HISTORICAL AB SCR STATUS Negative Normal [facility] Comment on above: Order Comment: Speci men Type: BLOOD SPECIMENOrdering Facility: [facility] Address: [address] [place] [address] Performed By: #### T SCR ####[facility] BANKCLIA [id number] [address] [place] Rh Nom (Bld) Positive Normal [facility] Comment on above: Order Comment: Speci men Type: BLOOD SPECIMENOrdering Facility: [facility] Address: [address] [place] [address] Performed By: #### T SCR ####[facility] BANKCLIA [id number] [address] OF [facility] TYPE AND SCREEN EXPIRATION 07/21/2022 23:59 Normal [facility] Comment on above: Order Comment: Speci men Type: BLOOD SPECIMENOrdering Facility: [facility] Address: [address] [place] [address] Performed By: #### T SCR ####[facility] BANKCLIA [id number] [address] [place] XR ABDOMEN 1V SUPINEon 07-18 XR ABDOMEN 1V SUPINE Normal [facility] ALLIED HEALTHon 07-17-2022 ALLIED HEALTH Normal [facility] Basic metabolic 2000 panelon 07-17-2022 Anion gap [Moles/Vol] 11 mmol/L Normal 9-18 [facility] Comment on above: Order Comment: Speci men Type: BLOOD SPECIMENOrdering Facility: [facility] Address: [address] [place] [address] Performed By: #### 2 4321-2 ####[facility] LABORATORYCLIA [id number] [address] [place] Calcium [Mass/Vol] 9.1 mg/dL Normal 8.5-10.2 [facility] Comment on above: Order Comment: Speci men Type: BLOOD SPECIMENOrdering Facility: [facility] Address: [address] [place] [address] Performed By: #### 2 4321-2 ####[facility] LABORATORYCLIA [id number] [address] [place] Chloride [Moles/Vol] 99 mmol/L Normal 97-105 [facility] Comment on above: Order Comment: Speci men Type: BLOOD SPECIMENOrdering Facility: [facility] Address: [address] [place] [address] Performed By: #### 2 4321-2 ####[facility] LABORATORYCLIA [id number] [address] [place] CO2 [Moles/Vol] 25 mmol/L Normal 22-30 [facility] Comment on above: Order Comment: Speci men Type: BLOOD SPECIMENOrdering Facility: [facility] Address: [address] [place] [address] Performed By: #### 2 4321-2 ####[facility] LABORATORYCLIA [id number] [address] [place] Creatinine [Mass/Vol] 0.66 mg/dL Normal 0.58-0.96 [facility] Comment on above: Order Comment: Speci men Type: BLOOD SPECIMENOrdering Facility: [facility] Address: [address] [place] [address] Performed By: #### 2 4321-2 ####[facility] LABORATORYCLIA [id number] [address] ESTIMATED GLOMERULAR FILTRATION RATE 87 mL/min/1.73m??? Normal >=60 [facility] Comment on above: Order Comment: Speci men Type: BLOOD SPECIMENOrdering Facility: [facility] Address: [address] [place] [address] Result Comment: Ilda mated Glomerular Filtration Rate (eGFR) is calculated using the 2020 CKD-EPI creatinine equation. This equation utilizes serum creatinine, sex, and age as parameters. The creatinine assay has traceable calibration to isotope dilution-mass spectrometry. Refer to KDIGO guidelines for clinical interpretation. In patients with unstable renal function, e.g. those with acute kidney injury, the eGFR may not accurately reflect actual GFR. Performed By: #### 2 4321-2 ####[facility] LABORATORYCLIA [id number] [place] [address] [place] Glucose [Mass/Vol] 119 mg/dL High 74-99 [facility] Comment on above: Order Comment: Michelle duron Type: BLOOD SPECIMENOrdering Facility: [facility] Address: [address] [place] [address] Result Comment: The [place] [employer] (ADA) provides guidance for cutoff values for fasting glucose and random glucose. The ADA defines fasting as no caloric intake for at least 8 hours. Fasting plasma glucose results between 100 to 125 mg/dL indicate increased risk for diabetes (prediabetes).Fasting plasma glucose results greater than or equal to 126 mg/dL meet the criteria for diagnosis of diabetes. In the absence of unequivocal hyperglycemia, results should be confirmed by repeat testing. In a patient with classic symptoms of hyperglycemia or hyperglycemic crisis, random plasma glucose results greater than or equal to 200 mg/dL meet the criteria for diagnosis of diabetes.Reference: Standards of Medical Care in Diabetes 2016, [place] [employer]. Diabetes Care. 2016.39(Suppl 1). Performed By: #### 2 4321-2 ####[facility]ATORYCLIA [id number] [place] [address] [place] Potassium [Moles/Vol] 4.5 mmol/L Normal 3.7-5.1 [facility] Comment on above: Order Comment: Michelle duron Type: BLOOD SPECIMENOrdering Facility: [facility] Address: [address] [address] Performed By: #### 2 4321-2 ####[facility]ATORYCLIA [id number] [place] [address] [place] Sodium [Moles/Vol] 135 mmol/L Low 136-144 [facility] Comment on above: Order Comment: Speci men Type: BLOOD SPECIMENOrdering Facility: [facility] Address: [address] [place] [address] Performed By: #### 2 4321-2 ####[facility]ATORYCLIA [id number] [address] [place] Urea nitrogen [Mass/Vol] 23 mg/dL High 7-21 [facility] Comment on above: Order Comment: Speci men Type: BLOOD SPECIMENOrdering Facility: [facility] Address: [address] [place] [address] Performed By: #### 2 4321-2 ####[facility]ATORYCLIA [id number] [address] [place] C diff Tox gens Stl Ql AVRIL+p robeon 07-17-2022 C. difficile toxin genes AVRIL+probe Ql (Stl) Negative Normal Negative for C. difficile toxin by PCR [facility] Comment on above: Order Comment: Speci men Type: STOOL SPECIMENOrdering Facility: [facility] Address: [address] [place] [address] Performed By: #### 5 4067-4 ####[facility]ATORYCLIA [id number] [address] [place] CBC W Auto Differential pane l (Bld)on 07-17-2022 Basophils (Bld) [#/Vol] 0.03 10*3/uL Normal <0.11 [facility] Comment on above: Order Comment: Speci men Type: BLOOD SPECIMENOrdering Facility: [facility] Address: [address] [place] [address] Performed By: #### 5 7021-8 ####[facility]ATORYCLIA [id number] [address] Basophils/100 WBC (Bld) 0.2 % Normal [facility] Comment on above: Order Comment: Speci men Type: BLOOD SPECIMENOrdering Facility: [facility] Address: [address] [place], [place] [address] Performed By: #### 5 7021-8 ####[facility]ATORYCLIA [id number] [address] Differential cell count method Nom (Bld) Auto Normal [facility] Comment on above: Order Comment: Speci men Type: BLOOD SPECIMENOrdering Facility: [facility] Address: [address] [place] [address] Performed By: #### 5 7021-8 ####[facility]ORATORYCLIA [id number] [address] OF [facility] Eosinophils (Bld) [#/Vol] 10*3/uL Normal <0.46 [facility] Comment on above: Order Comment: Speci men Type: BLOOD SPECIMENOrdering Facility: [facility] Address: [address] [place] [address] Performed By: #### 5 7021-8 ####[facility]ATORYCLIA [id number] [address] Eosinophils/100 WBC (Bld) 0.1 % Normal [facility] Comment on above: Order Comment: Speci men Type: BLOOD SPECIMENOrdering Facility: [facility] Address: [address] [place] [address] Performed By: #### 5 7021-8 ####[facility]ATORYCLIA [id number] [address] Erythrocyte distribution width (RBC) [Ratio] 14.6 % Normal 11.5-15.0 [facility] Comment on above: Order Comment: Speci men Type: BLOOD SPECIMENOrdering Facility: [facility] Address: [address] [place] [address] Performed By: #### 5 7021-8 ####[facility]ATORYCLIA [id number] [address] Hematocrit (Bld) [Volume fraction] 34.2 % Low 36.0-46.0 [facility] Comment on above: Order Comment: Speci men Type: BLOOD SPECIMENOrdering Facility: [facility] Address: [address] [place] [address] Performed By: #### 5 7021-8 ####[facility]ATORYCLIA [id number] [place] [address] [place] Hemoglobin (Bld) [Mass/Vol] 10.9 g/dL Low 11.5-15.5 [facility] Comment on above: Order Comment: Speci men Type: BLOOD SPECIMENOrdering Facility: [facility] Address: [address] [place] [address] Performed By: #### 5 7021-8 ####[facility]ATORYCLIA [id number] [address] [place] Immature granulocytes (Bld) [#/Vol] 0.09 10*3/uL Normal <0.10 [facility] Comment on above: Order Comment: Speci men Type: BLOOD SPECIMENOrdering Facility: [facility] Address: [address] [place] [address] Performed By: #### 5 7021-8 ####[facility]ATORYCLIA [id number] [address] [place] Immature granulocytes/100 WBC (Bld) 0.6 % Normal [facility] Comment on above: Order Comment: Speci men Type: BLOOD SPECIMENOrdering Facility: [facility] Address: [address] [place] [address] Performed By: #### 5 7021-8 ####[facility]ATORYCLIA [id number] [place] [address] [place] Lymphocytes (Bld) [#/Vol] 0.62 10*3/uL Low 1.00-4.00 [facility] Comment on above: Order Comment: Speci men Type: BLOOD SPECIMENOrdering Facility: [facility] Address: [address] [place] [address] Performed By: #### 5 7021-8 ####[facility]ATORYCLIA [id number] [address] [place] Lymphocytes/100 WBC (Bld) 3.9 % Normal [facility] Comment on above: Order Comment: Speci men Type: BLOOD SPECIMENOrdering Facility: [facility] Address: [address] [place] [address] Performed By: #### 5 7021-8 ####[facility]ATORYCLIA [id number] [address] [place] MCH (RBC) [Entitic mass] 32.0 pg Normal 26.0-34.0 [facility] Comment on above: Order Comment: Speci men Type: BLOOD SPECIMENOrdering Facility: [facility] Address: [address] [place] [address] Performed By: #### 5 7021-8 ####[facility]ATORYCLIA [id number] [address] [place] MCHC (RBC) [Mass/Vol] 31.9 g/dL Normal 30.5-36.0 [facility] Comment on above: Order Comment: Speci men Type: BLOOD SPECIMENOrdering Facility: [facility] Address: [address] [place] [address] Performed By: #### 5 7021-8 ####[facility]ATORYCLIA [id number] [address] [facility] MCV (RBC) [Entitic vol] 100.3 fL High 80.0-100.0 [facility] Comment on above: Order Comment: Speci men Type: BLOOD SPECIMENOrdering Facility: [facility] Address: [address] [place] [address] Performed By: #### 5 7021-8 ####[facility]ATORYCLIA [id number] [place] [address] [place] Monocytes (Bld) [#/Vol] 1.17 10*3/uL High <0.87 [facility] Comment on above: Order Comment: Speci men Type: BLOOD SPECIMENOrdering Facility: [facility] Address: [address] [place] [address] Performed By: #### 5 7021-8 ####[facility]ATORYCLIA [id number] [address] [place] Monocytes/100 WBC (Bld) 7.4 % Normal [facility] Comment on above: Order Comment: Speci men Type: BLOOD SPECIMENOrdering Facility: [facility] Address: [address] [place] [address] Performed By: #### 5 7021-8 ####[facility]ATORYCLIA [id number] [place] [address] [place] Neutrophils (Bld) [#/Vol] 13.83 10*3/uL High 1.45-7.50 [facility] Comment on above: Order Comment: Speci men Type: BLOOD SPECIMENOrdering Facility: [facility] Address: [address] [place] [address] Performed By: #### 5 7021-8 ####[facility]ATORYCLIA [id number] [address] Neutrophils/100 WBC (Bld) 87.8 % Normal [facility] Comment on above: Order Comment: Speci men Type: BLOOD SPECIMENOrdering Facility: [facility] Address: [address] [place] [address] Performed By: #### 5 7021-8 ####[facility]ATORYCLIA [id number] [address] [place] Nucleated RBC (Bld) [#/Vol] 10*3/uL Normal <0.01 [facility] Comment on above: Order Comment: Speci men Type: BLOOD SPECIMENOrdering Facility: [facility] Address: [address] [place] [address] Performed By: #### 5 7021-8 ####[facility]ATORYCLIA [id number] [address] [place] Nucleated RBC/100 WBC (Bld) [Ratio] 0.0 /100 WBC Normal [facility] Comment on above: Order Comment: Speci men Type: BLOOD SPECIMENOrdering Facility: [facility] Address: [address] [place], [place] [address] Performed By: #### 5 7021-8 ####[facility]ATORYCLIA [id number] [address] [place] Platelet mean volume (Bld) [Entitic vol] 8.9 fL Low 9.0-12.7 [facility] Comment on above: Order Comment: Speci men Type: BLOOD SPECIMENOrdering Facility: [facility] Address: [address] [place] [address] Performed By: #### 5 7021-8 ####[facility]ATORYCLIA [id number] [address] [place] Platelets (Bld) [#/Vol] 323 10*3/uL Normal 150-400 [facility] Comment on above: Order Comment: Speci men Type: BLOOD SPECIMENOrdering Facility: [facility] Address: [address] [place] [address] Performed By: #### 5 7021-8 ####[facility]ATORYCLIA [id number] [place] [address] [place] RBC (Bld) [#/Vol] 3.41 10*6/uL Low 3.90-5.20 [facility] Comment on above: Order Comment: Speci men Type: BLOOD SPECIMENOrdering Facility: [facility] Address: [address] [place] [address] Performed By: #### 5 7021-8 ####[facility]ATORYCLIA [id number] [address] [place] WBC (Bld) [#/Vol] 15.76 10*3/uL High 3.70-11.00 [facility] Comment on above: Order Comment: Speci men Type: BLOOD SPECIMENOrdering Facility: [facility] Address: [address] [place] [address] Performed By: #### 5 7021-8 ####[facility]ATORYCLIA [id number] [address] [place] CONSULTon 07-17-2022 CONSULT Normal [facility] CONSULT PROGon 07-17-2022 CONSULT PROG Normal [facility] DIGOXIN/LANOXINon 07-17-2022 Digoxin [Mass/Vol] 1.6 ng/mL High 0.5-1.0 [facility] Comment on above: Order Comment: Speci men Type: BLOOD SPECIMENOrdering Facility: [facility] Address: [address] [address] Result Comment: Prov ided therapeutic concentrations are based on the 2008 ESC Guidelines for the Diagnosis and Treatment of Acute and Chronic Heart Failure.Reference ranges and high/low indicator flags are provided as general guidelines only. The treating physician must determine appropriate target levels/dosing based on the specific clinical situation. Performed By: #### D IG ####[facility]ATORYCLIA [id number] [place] [address] [place] ECG COMPLETEon 07-17-2022 ECG COMPLETE Normal [facility] Gas and Carbon monoxide pane l (BldV)on 07-17-2022 Base excess Calc (BldV) [Moles/Vol] 1 mmol/L Normal 0-2 [facility] Comment on above: Order Comment: Speci men Type: VENOUS BLOOD SPECIMENOrdering Facility: [facility] Address: [address] [address] Performed By: #### 2 4344-4 ####[facility]ATORYCLIA [id number] [place] [address] [place] Body temperature 97.88 [degF] Normal [facility] Comment on above: Order Comment: Speci men Type: VENOUS BLOOD SPECIMENOrdering Facility: [facility] Address: [address] [address] Performed By: #### 2 4344-4 ####[facility]ATORYCLIA [id number] [address] [place] Calcium.ionized (BldV) [Mass/Vol] 1.22 mmol/L Normal 1.08-1.30 [facility] Comment on above: Order Comment: Speci men Type: VENOUS BLOOD SPECIMENOrdering Facility: [facility] Address: [address] [address] Performed By: #### 2 4344-4 ####[facility]ORYCLIA [id number] [address] Calcium.ionized adjusted to pH 7.4 (BldA) [Moles/Vol] 1.19 mmol/L Normal 1.08-1.30 [facility] Comment on above: Order Comment: Speci men Type: VENOUS BLOOD SPECIMENOrdering Facility: [facility] Address: [address] [address] Performed By: #### 2 4344-4 ####[facility]ATORYCLIA [id number] [address] [place] Carboxyhemoglobin (BldV) [Mass fraction] 1.8 % Normal 0.0-2.0 [facility] Comment on above: Order Comment: Speci men Type: VENOUS BLOOD SPECIMENOrdering Facility: [facility] Address: [address] [address] Result Comment: Carb oxyhemoglobin Reference Range for Smokers: 2.0-8.0% Performed By: #### 2 4344-4 ####[facility]ATORYCLIA [id number] [place] [address] [place] Chloride [Moles/Vol] 101 mmol/L Low 102-109 [facility] Comment on above: Order Comment: Speci men Type: VENOUS BLOOD SPECIMENOrdering Facility: [facility] Address: [address] [address] Performed By: #### 2 4344-4 ####[facility]ATORYCLIA [id number] [address] [place] CO2 (BldV) [Partial pressure] 47 mm[Hg] Normal 42-55 [facility] Comment on above: Order Comment: Speci men Type: VENOUS BLOOD SPECIMENOrdering Facility: [facility] Address: [address] [address] Performed By: #### 2 4344-4 ####[facility]ATORYCLIA [id number] [address] [place] CO2 [Moles/Vol] 24 mmol/L Low 25-29 [facility] Comment on above: Order Comment: Speci men Type: VENOUS BLOOD SPECIMENOrdering Facility: [facility] Address: [address] [place] [address] Performed By: #### 2 4344-4 ####[facility]ATORYCLIA [id number] [address] [place] CO2 adjusted to patient's actual temperature (BldV) [Partial pressure] 46 mmHg Normal 42-55 [facility] Comment on above: Order Comment: Speci men Type: VENOUS BLOOD SPECIMENOrdering Facility: [facility] Address: [address] [place] [address] Performed By: #### 2 4344-4 ####[facility]ATORYCLIA [id number] [address] [place] Glucose [Mass/Vol] 126 mg/dL High 60-105 [facility] Comment on above: Order Comment: Speci men Type: VENOUS BLOOD SPECIMENOrdering Facility: [facility] Address: [address] [place] [address] Performed By: #### 2 4344-4 ####[facility]ATORYCLIA [id number] [address] [place] HCO3 (Bld) [Moles/Vol] 26 mmol/L Normal 24-28 [facility] Comment on above: Order Comment: Speci men Type: VENOUS BLOOD SPECIMENOrdering Facility: [facility] Address: [address] [address] Performed By: #### 2 4344-4 ####[facility]ORYCLIA [id number] [address] [place] Hematocrit (Bld) [Volume fraction] 35.5 % Low 36.0-46.0 [facility] Comment on above: Order Comment: Speci men Type: VENOUS BLOOD SPECIMENOrdering Facility: [facility] Address: [address] [place] [address] Performed By: #### 2 4344-4 ####[facility]ORYCLIA [id number] [address] [place] Hemoglobin (Bld) [Mass/Vol] 11.5 g/dL Normal 11.5-15.5 [facility] Comment on above: Order Comment: Speci men Type: VENOUS BLOOD SPECIMENOrdering Facility: [facility] Address: [address] [place] [address] Performed By: #### 2 4344-4 ####[facility]ATORYCLIA [id number] [address] [place] Lactate [Moles/Vol] 1.2 mmol/L Normal 0.5-2.2 [facility] Comment on above: Order Comment: Speci men Type: VENOUS BLOOD SPECIMENOrdering Facility: [facility] Address: [address] [place] [address] Performed By: #### 2 4344-4 ####[facility]ORYCLIA [id number] [address] [place] Methemoglobin (Bld) [Mass fraction] % Normal 0.0-1.5 [facility] Comment on above: Order Comment: Speci men Type: VENOUS BLOOD SPECIMENOrdering Facility: [facility] Address: [address] [place] [address] Performed By: #### 2 4344-4 ####[facility]ATORYCLIA [id number] [address] [place] O2 THERAPY NC = Nasal Cannula Normal [facility] Comment on above: Order Comment: Speci men Type: VENOUS BLOOD SPECIMENOrdering Facility: [facility] Address: [address] [place] [address] Performed By: #### 2 4344-4 ####[facility]ATORYCLIA [id number] [address] [place] Oxygen (BldV) [Partial pressure] 72 mm[Hg] High 35-45 [facility] Comment on above: Order Comment: Speci men Type: VENOUS BLOOD SPECIMENOrdering Facility: [facility] Address: [facility] [address] [address] Performed By: #### 2 4344-4 ####[facility]ATORYCLIA [id number] [address] Oxygen adjusted to patient's actual temperature (BldV) [Partial pressure] 70 mmHg High 35-45 [facility] Comment on above: Order Comment: Speci men Type: VENOUS BLOOD SPECIMENOrdering Facility: [facility] Address: [address] [place] [address] Performed By: #### 2 4344-4 ####[facility]ORYCLIA [id number] [address] Oxygen saturation in Venous blood 93 % High 60-85 [facility] Comment on above: Order Comment: Speci men Type: VENOUS BLOOD SPECIMENOrdering Facility: [facility] Address: [address] [place] [address] Performed By: #### 2 4344-4 ####[facility]ORYCLIA [id number] [address] Oxyhemoglobin (BldV) [Mass fraction] 91 % High 60-85 [facility] Comment on above: Order Comment: Speci men Type: VENOUS BLOOD SPECIMENOrdering Facility: [facility] Address: [address] [place] [address] Performed By: #### 2 4344-4 ####[facility]ORYCLIA [id number] [address] [place] pH (BldV) 7.36 [pH] Normal 7.32-7.42 [facility] Comment on above: Order Comment: Speci men Type: VENOUS BLOOD SPECIMENOrdering Facility: [facility] Address: [address] [place] [address] Performed By: #### 2 4344-4 ####[facility]ORYCLIA [id number] [address] [place] pH adjusted to patient's actual temperature (BldV) 7.37 Normal 7.32-7.42 [facility] Comment on above: Order Comment: Speci men Type: VENOUS BLOOD SPECIMENOrdering Facility: [facility] Address: [address] [place] [address] Performed By: #### 2 4344-4 ####[facility]ORYCLIA [id number] [address] OF [facility] Potassium [Moles/Vol] 4.3 mmol/L Normal 3.5-5.0 [facility] Comment on above: Order Comment: Speci men Type: VENOUS BLOOD SPECIMENOrdering Facility: [facility] Address: [address] [place] [address] Performed By: #### 2 4344-4 ####[facility]ORYCLIA [id number] [address] Sodium [Moles/Vol] 134 mmol/L Low 136-144 [facility] Comment on above: Order Comment: Speci men Type: VENOUS BLOOD SPECIMENOrdering Facility: [facility] Address: [address] [place] [address] Performed By: #### 2 4344-4 ####[facility]ORYCLIA [id number] [address] HIGH SENSITIVITY TROPONIN To n 07-17-2022 HIGH SENSITIVITY ARLINE 19 ng/L High <12 [facility] Comment on above: Order Comment: Speci men Type: BLOOD SPECIMENOrdering Facility: [facility] Address: [address] [place] [address] Result Comment: When assessing risk for acute coronary syndromes: In patients undergoing blood draw greater than or equal to 2 hours from symptom onset, with history of very low to moderate risk and non-ischemic ECG, an initial hs-Troponin T less than 12 ng/L AND a 1 hour delta hs-Troponin T less than 3 ng/L should be considered very low risk for 30 day MACE. Performed By: #### H STNT ####[facility]ORYCLIA [id number] [address] [place] XR CHEST 1V FRONTALon 2022 XR CHEST 1V FRONTAL Normal [facility] ALLIED HEALTHon 07-16-2022 ALLIED HEALTH Normal [facility] Basic metabolic 2000 panelon 07-16-2022 Anion gap [Moles/Vol] 10 mmol/L Normal 9-18 [facility] Comment on above: Order Comment: Speci men Type: BLOOD SPECIMENOrdering Facility: [facility] Address: [address] [place] [address] Performed By: #### 2 4321-2, 07639-1 ####[facility]ORYCLIA [id number] [place] [address] [place] Calcium [Mass/Vol] 8.8 mg/dL Normal 8.5-10.2 [facility] Comment on above: Order Comment: Speci men Type: BLOOD SPECIMENOrdering Facility: [facility] Address: [address] [place] [address] Performed By: #### 2 4321-2, 97595-1 ####[facility]ORYCLIA [id number] [place] [address] [place] Chloride [Moles/Vol] 98 mmol/L Normal 97-105 [facility] Comment on above: Order Comment: Speci men Type: BLOOD SPECIMENOrdering Facility: [facility] Address: [address] [place] [address] Performed By: #### 2 4321-2, 34083-9 ####[facility]ORYCLIA [id number] [place] [address] [place] CO2 [Moles/Vol] 26 mmol/L Normal 22-30 [facility] Comment on above: Order Comment: Speci men Type: BLOOD SPECIMENOrdering Facility: [facility] Address: [address] [place] [address] Performed By: #### 2 4321-2, 28994-8 ####[facility]ORYCLIA [id number] [place] [address] [place] Creatinine [Mass/Vol] 0.66 mg/dL Normal 0.58-0.96 [facility] Comment on above: Order Comment: Speci men Type: BLOOD SPECIMENOrdering Facility: [facility] Address: [address] [place] [address] Performed By: #### 2 4321-2, 83178-3 ####[facility] POINTIA [id number] [address] [place] ESTIMATED GLOMERULAR FILTRATION RATE 87 mL/min/1.73m??? Normal >=60 [facility] Comment on above: Order Comment: Michelle domi Type: BLOOD SPECIMENOrdering Facility: [facility] Address: [address] [place] [address] Result Comment: Ilda mated Glomerular Filtration Rate (eGFR) is calculated using the 2020 CKD-EPI creatinine equation. This equation utilizes serum creatinine, sex, and age as parameters. The creatinine assay has traceable calibration to isotope dilution-mass spectrometry. Refer to KDIGO guidelines for clinical interpretation. In patients with unstable renal function, e.g. those with acute kidney injury, the eGFR may not accurately reflect actual GFR. Performed By: #### 2 4321-2, 94781-9 ####[facility] [id number] [place] [address] [place] Glucose [Mass/Vol] 136 mg/dL High 74-99 [facility] Comment on above: Order Comment: Michelle duron Type: BLOOD SPECIMENOrdering Facility: [facility] Address: [address] [place] [address] Result Comment: The [place] Diabetes Association (ADA) provides guidance for cutoff values for fasting glucose and random glucose. The ADA defines fasting as no caloric intake for at least 8 hours. Fasting plasma glucose results between 100 to 125 mg/dL indicate increased risk for diabetes (prediabetes).Fasting plasma glucose results greater than or equal to 126 mg/dL meet the criteria for diagnosis of diabetes. In the absence of unequivocal hyperglycemia, results should be confirmed by repeat testing. In a patient with classic symptoms of hyperglycemia or hyperglycemic crisis, random plasma glucose results greater than or equal to 200 mg/dL meet the criteria for diagnosis of diabetes.Reference: Standards of Medical Care in Diabetes 2016, [place] [employer] Association. Diabetes Care. 2016.39(Suppl 1). Performed By: #### 2 4321-2, 41861-1 ####[facility] LABORATORYCLIA [id number] [address] STATES [place] Potassium [Moles/Vol] 4.2 mmol/L Normal 3.7-5.1 [facility] Comment on above: Order Comment: Speci men Type: BLOOD SPECIMENOrdering Facility: [facility] Address: [address] [place] [address] Performed By: #### 2 4321-2, 29588-6 ####[facility]ORATORYCLIA [id number] [address] STATES OF [place] Sodium [Moles/Vol] 134 mmol/L Low 136-144 [facility] Comment on above: Order Comment: Speci men Type: BLOOD SPECIMENOrdering Facility: [facility] Address: [address] [place] [address] Performed By: #### 2 4321-2, 02596-6 ####[facility] LABORATORYCLIA [id number] [address] [facility] Urea nitrogen [Mass/Vol] 19 mg/dL Normal 7-21 [facility] Comment on above: Order Comment: Speci men Type: BLOOD SPECIMENOrdering Facility: [facility] Address: [address] [place] [address] Performed By: #### 2 4321-2, 92184-9 ####[facility]ORATORYCLIA [id number] [address] STATES OF [facility] CBC panel Auto (Bld)on 07-16 Erythrocyte distribution width (RBC) [Ratio] 14.7 % Normal 11.5-15.0 [facility] Comment on above: Order Comment: Speci men Type: BLOOD SPECIMENOrdering Facility: [facility] Address: [address] [place] [address] Performed By: #### 5 5454-3, 69459-3 ####[facility]ATORYCLIA [id number] [address] STATES [place] Hematocrit (Bld) [Volume fraction] 32.7 % Low 36.0-46.0 [facility] Comment on above: Order Comment: Speci men Type: BLOOD SPECIMENOrdering Facility: [facility] Address: [address] [place] [address] Performed By: #### 5 5454-3, 71594-0 ####[facility]ATORYCLIA [id number] [address] STATES OF [facility] Hemoglobin (Bld) [Mass/Vol] 10.2 g/dL Low 11.5-15.5 [facility] Comment on above: Order Comment: Speci men Type: BLOOD SPECIMENOrdering Facility: [facility] Address: [address] [place] [address] Performed By: #### 5 5454-3, 88625-2 ####[facility]ATORYCLIA [id number] [address] STATES OF [facility] MCH (RBC) [Entitic mass] 31.2 pg Normal 26.0-34.0 [facility] Comment on above: Order Comment: Speci men Type: BLOOD SPECIMENOrdering Facility: [facility] Address: [address] [place] [address] Performed By: #### 5 5454-3, 13534-1 ####[facility]ATORYCLIA [id number] [address] STATES OF [facility] MCHC (RBC) [Mass/Vol] 31.2 g/dL Normal 30.5-36.0 [facility] Comment on above: Order Comment: Speci men Type: BLOOD SPECIMENOrdering Facility: [facility] Address: [address] [place] [address] Performed By: #### 5 5454-3, 84638-2 ####[facility]ATORYCLIA [id number] [address] MCV (RBC) [Entitic vol] 100.0 fL Normal 80.0-100.0 [facility] Comment on above: Order Comment: Speci men Type: BLOOD SPECIMENOrdering Facility: [facility] Address: [address] [place] [address] Performed By: #### 5 5454-3, 69316-3 ####[facility]ATORYCLIA [id number] [address] STATES OF [place] Nucleated RBC (Bld) [#/Vol] 10*3/uL Normal <0.01 [facility] Comment on above: Order Comment: Speci men Type: BLOOD SPECIMENOrdering Facility: [facility] Address: [address] [address] Performed By: #### 5 5454-3, 52008-3 ####[facility]ATORYCLIA [id number] [place] [address] [place] Platelet mean volume (Bld) [Entitic vol] 8.8 fL Low 9.0-12.7 [facility] Comment on above: Order Comment: Speci men Type: BLOOD SPECIMENOrdering Facility: [facility] Address: [address] [address] Performed By: #### 5 5454-3, 41829-1 ####[facility]ATORYCLIA [id number] [address] STATES OF [place] Platelets (Bld) [#/Vol] 296 10*3/uL Normal 150-400 [facility] Comment on above: Order Comment: Speci men Type: BLOOD SPECIMENOrdering Facility: [facility] Address: [address] Performed By: #### 5 5454-3, 30353-0 ####[facility]ORATORYCLIA [id number] [place] [address] [place] RBC (Bld) [#/Vol] 3.27 10*6/uL Low 3.90-5.20 [facility] Comment on above: Order Comment: Speci men Type: BLOOD SPECIMENOrdering Facility: [facility] Address: [address] [address] Performed By: #### 5 5454-3, 41132-6 ####[facility]ATORYCLIA [id number] [address] OF [facility] WBC (Bld) [#/Vol] 13.65 10*3/uL High 3.70-11.00 [facility] Comment on above: Order Comment: Speci men Type: BLOOD SPECIMENOrdering Facility: [facility] Address: [address] [place] [address] Performed By: #### 5 5454-3, 90736-4 ####[facility]ATORYCLIA [id number] [address] [place] CONSULTon 07-16-2022 CONSULT Normal [facility] CRP SerPl-mCncon 07-16-2022 CRP [Mass/Vol] 16.2 mg/dL High <0.9 [facility] Comment on above: Order Comment: Speci men Type: BLOOD SPECIMENOrdering Facility: [facility] Address: [address] [place] [address] Performed By: #### 1 988-5, 3016-3 ####[facility]ATORYCLIA [id number] [address] OF [facility] ECHO LIMITEDon 07-16-2022 ECHO LIMITED Normal [facility] ED NOTEon 07-16-2022 ED NOTE HNO ID: [id number] Author: Nahomy Snyder, SHANTE Service: Emergency Medicine Author Type: Registered Nurse Type: ED Notes Filed: 07/16/2022 12:25 PM Note Text: Hold compazine PO dose per physician Dr. Kowalski at bedside. Normal [facility] ED NOTE HNO ID: [id number] Author: Tracy Cardenas, SHANTE Service: Nursing Author Type: Registered Nurse Type: ED Notes Filed: 07/16/2022 11:21 AM Note Text: D/Ulises duplicate covid order Normal [facility] ED NOTE HNO ID: [id number] Author: Tracy Cardenas, SHANTE Service: Nursing Author Type: Registered Nurse Type: ED Notes Filed: 07/16/2022 10:25 AM Note Text: CT notified pt ready, GFR 07/16/22 0000 at jarod was 77 Normal [facility] ED NOTE Normal [facility] ED PROV NOTEon 07-16-2022 ED PROV NOTE Normal [facility] ED PROV NOTE Normal [facility] ESR Westergren method (Bld) [Velocity]on 07-16-2022 ESR (Bld) [Velocity] 34 mm/h High 0-20 [facility] Comment on above: Order Comment: Michelle duron Type: BLOOD SPECIMENOrdering Facility: [facility] Address: [address] [place] [address] Performed By: #### 4 537-7 ####[facility] LABCLIA [id number] [facility] [id number] [address] [place] HIGH SENSITIVITY TROPONIN T (INITIAL)on 07-16-2022 HIGH SENSITIVITY ARLINE 13 ng/L High <12 [facility] Comment on above: Order Comment: Michelle duron Type: BLOOD SPECIMENOrdering Facility: [facility] Address: [address] [place] [address] Result Comment: When assessing risk for acute coronary syndromes: In patients undergoing blood draw greater than or equal to 2 hours from symptom onset, with history of very low to moderate risk and non-ischemic ECG, an initial hs-Troponin T less than 12 ng/L AND a 1 hour delta hs-Troponin T less than 3 ng/L should be considered very low risk for 30 day MACE. Performed By: #### L [id number] ####[facility]ORATORYCLIA [id number] [place] [address] [place] HIGH SENSITIVITY TROPONIN T (SECOND)on 07-16-2022 HIGH SENSITIVITY ARLINE 14 ng/L High <12 [facility] Comment on above: Order Comment: Michelle duron Type: BLOOD SPECIMENOrdering Facility: [facility] Address: [address] [address] Result Comment: When assessing risk for acute coronary syndromes: In patients undergoing blood draw greater than or equal to 2 hours from symptom onset, with history of very low to moderate risk and non-ischemic ECG, an initial hs-Troponin T less than 12 ng/L AND a 1 hour delta hs-Troponin T less than 3 ng/L should be considered very low risk for 30 day MACE. Performed By: #### L [id number] ####[facility]ATORYCLIA [id number] [address] HIGH SENSITIVITY TROPONIN T (THIRD) 3 HRS AFTER INITIALon 07-16-2022 HIGH SENSITIVITY ARLINE 14 ng/L High <12 [facility] Comment on above: Order Comment: Michelle [facility] Type: BLOOD SPECIMENOrdering Facility: [facility] Address: [address] [place] [address] Result Comment: When assessing risk for acute coronary syndromes: In patients undergoing blood draw greater than or equal to 2 hours from symptom onset, with history of very low to moderate risk and non-ischemic ECG, an initial hs-Troponin T less than 12 ng/L AND a 1 hour delta hs-Troponin T less than 3 ng/L should be considered very low risk for 30 day MACE. Performed By: #### L [id number] ####[facility]ATORYCLIA [id number] [address] HISTORY PHYSICALon HISTORY PHYSICAL Normal [facility] HbA1c (Bld)on 07-16-2022 Average glucose Estimated from glycated hemoglobin (Bld) [Mass/Vol] 131 mg/dL Normal [facility] Comment on above: Order Comment: Michelle duron Type: BLOOD SPECIMENOrdering Facility: [facility] Address: [address] [place] [address] Result Comment: eAG: (Estimated average glucose) is a calculated value from HgbA1c and is practice representative of the average blood glucose level in the last 2-3 month period. Performed By: #### 5 5454-3, 70053-8 ####[facility]ATORYCLIA [id number] [address] HbA1c (Bld) [Mass fraction] 6.2 % High 4.3-5.6 [facility] Comment on above: Order Comment: Michelle duron Type: BLOOD SPECIMENOrdering Facility: [facility] Address: [address] [place] [address] Result Comment: [place] Diabetes Association guidelines indicate that patients with HgbA1c in the range 5.7-6.4% are at increased risk for development of diabetes, and intervention by lifestyle modification may be beneficial. HgbA1c greater or equal to 6.5% is considered diagnostic of diabetes. Performed By: #### 5 5454-3, 09459-4 ####[facility]ORATORYCLIA [id number] [address] STATES OF [facility] PT panel Coag (PPP)on 2022 INR Coag (PPP) [Relative time] 1.1 {INR} Normal 0.9-1.3 [facility] Comment on above: Order Comment: Specximena duron Type: BLOOD SPECIMENOrdering Facility: [facility] Address: [address] [id number] Result Comment: Judy min K Antagonist (VKA) Therapeutic Range: INR 2 to 3 (Target INR of 2.5)Note: For patients treated with VKA drugs, such as warfarin, the [place] [employer] 2012 Guideline recommends a therapeutic INR range of 2 to 3 (target INR of 2.5). This recommendation includes high-risk patients with antiphospholipid syndrome with previous arterial or venous thromboembolism, current-generation mechanical or bioprosthetic aortic heart valve replacement.Note: Patients with mechanical aortic valve replacement and additional risk factors for thromboembolic events (atrial fibrillation, previous thromboembolism, LV dysfunction, hypercoagulable conditions) or an older generation mechanical AVR (i.e., ball in-Cage) or any mechanical MVR should have a INR therapeutic range of 2.5 to 3.5 (target INR of 3).Prisca GH, et al. Chest 2012, 141:7S-47SNishimura RA, et al. [facility] 2017, 70: 252-289 Performed By: #### 1 4979-9, 81825-5 ####[facility]ATORYCLIA [id number] [address] [place] PT Coag (PPP) [Time] 11.5 s Normal 9.7-13.0 [facility] Comment on above: Order Comment: Michelle duron Type: BLOOD SPECIMENOrdering Facility: [facility] Address: [address] [id number] Performed By: #### 1 4979-9, 44264-2 ####[facility]ATORYCLIA [id number] [address] Procalcitonin SerPl-mCncon 0 07-16-2022 Procalcitonin [Mass/Vol] ng/mL Normal <0.09 [facility] Comment on above: Order Comment: Speci men Type: BLOOD SPECIMENOrdering Facility: [facility] Address: [address] [place] [address] Result Comment: For a guided interpretation of test results, please visit the Change in Procalcitonin Calculator, [email or web address]. Performed By: #### 2 4321-2, 43955-4 ####[facility]ATORYCLIA [id number] [address] OF [place] SARS-CoV-2 RNA Resp Ql AVRIL+p robeon 07-16-2022 SARS-CoV-2 (COVID-19) RNA AVRIL+probe Ql (Resp) COVID 19 RESULT: Not detected The method used is RT-PCR or an equivalent NAAT method. Reference Range(the expected result in uninfected individuals): Not detected Normal [facility] Comment on above: Performed By: #### 9 4500-6 ####[facility]ATORYCLIA [id number] [address] [place] STAPH AUREUS PCRon S. aureus and MRSA panel AVRIL+probe (Nose) Normal Negative [facility] Comment on above: Order Comment: Speci men Type: SWAB OF INTERNAL NOSEOrdering Facility: [facility] Address: [address] [place] [address] Result Comment: Nega tive for Staphylococcus aureus by PCR.Negative for MRSA by PCR Performed By: #### S APCR ####[facility]ORATORYCLIA [id number] [place] [address] [place] TSH SerPl-aCncon 07-16-2022 TSH Qn 1.570 m[IU]/L Normal 0.270-4.200 [facility] Comment on above: Order Comment: Speci men Type: BLOOD SPECIMENOrdering Facility: [facility] Address: [address] [phone] Performed By: #### 1 988-5, 3016-3 ####[facility]ATORYCLIA [id number] [address] OF [facility] XR CHEST 1V FRONTALon 2022 XR CHEST 1V FRONTAL Normal [facility] aPTT PPPon 07-16-2022 aPTT Coag (PPP) [Time] 32.3 s Normal 23.0-32.4 [facility] Comment on above: Order Comment: Specximena duron Type: BLOOD SPECIMENOrdering Facility: [facility] Address: [address] [address] Performed By: #### 1 4979-9, 80100-2 ####[facility]ATORYCLIA [id number] [address] CNPAbigail 06-09-2022 CNPN Telephone (NE50MN) -------- ISABELLE MEDRANO ([id number]) 1940 F Date Time Provider Department 06/09/22 ALDEN HUGHES NE50MN During your visit today, we recorded the following information about you: Lorena Trevor 06/09/2022 4:36 PM Signed Records received; ED summary; Uploaded to [facility] Alden Hughes MD 06/10/2022 7:46 AM Signed Allergies As of Date: 06/09/2022 Noted Allergy Reaction KEPPRA (LEVETIRACETAM) 07/24/2019 8 - GI Upset [id number] YMYXNB 07/25/2014 2 - Rash CODEINE 07/29/2015 14 - Other: See Comments Comments: makes me ill NICKEL 06/25/2019 16 - Unknown Date Reviewed: 05/05/2022 Reviewed by: Kim Ham RN - Fully Assessed Reason for Visit: Received Outside Medical Records [[id number]] Cmt: [facility] Prescriptions as of 06/10/2022 - linaclotide (LINZESS ORAL) Take by mouth. - Amoxicillin 500 mg tablet Take 500 mg by mouth as needed. - mecobalamin, vitamin B12, 1,000 mcg chew Take by mouth. - lamoTRIgine (LAMICTAL) 25 mg tablet Wk 1: 1 tab in pm. Wk 2: 1 tab in am AND 1 tab in pm. Wk 3: 1 tab in am AND 2 tabs in pm. Wk 4: 2 tabs in am AND 2 tabs in pm. Wk 5: 2 tabs in am AND 3 tabs in pm. Wk 6: 3 tabs in am AND 3 tabs in pm. Wk 7: 3 tabs in am AND 4 tabs in pm. Wk 8: switch to the 100 mg tablet and take 100 mg twice daily. - clonazePAM (KLONOPIN) 0.5 mg tablet Take 1 tablet by mouth daily at bedtime for 49 days. Then stop - lamoTRIgine (LAMICTAL) 100 mg tablet Take 1 tablet by mouth once daily. - DULoxetine (CYMBALTA) 30 mg capsule take 1 capsule by mouth once daily - metFORMIN (GLUCOPHAGE) 500 mg tablet Take 500 mg by mouth twice daily with meals. - lisinopril (ZESTRIL, PRINIVIL) 20 mg tablet Take 20 mg by mouth once daily. - BIOTIN ORAL Take by mouth. Problem List As Of Date 06/09/2022 Noted Resolved 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*04/28/2020 Seizures (HCC) [R56.9] 05/05/2022 Nonepileptic episode (HCC) [R56.9] 05/06/2022 Encounter Status:Closed by LORENA MURRAY on 06/09/22 [facility] Telephone (NE50MN) -------- ZACISABELLE Romero ([id number]) 1940 F Date Time Provider Department 06/09/22 ALDEN HUGHES NE50MN During your visit today, we recorded the following information about you: Lorena Murray 06/09/2022 11:21 AM Signed Allergies As of Date: 06/09/2022 Noted Allergy Reaction KEPPRA (LEVETIRACETAM) 07/24/2019 8 - GI Upset [id number] YMYXNB 07/25/2014 2 - Rash CODEINE 07/29/2015 14 - Other: See Comments Comments: makes me ill NICKEL 06/25/2019 16 - Unknown Date Reviewed: 05/05/2022 Reviewed by: Kim Ham RN - Fully Assessed Reason for Visit: Request Outside Medical Records [[id number]] Cmt: [facility] Prescriptions as of 06/09/2022 - linaclotide (LINZESS ORAL) Take by mouth. - Amoxicillin 500 mg tablet Take 500 mg by mouth as needed. - mecobalamin, vitamin B12, 1,000 mcg chew Take by mouth. - lamoTRIgine (LAMICTAL) 25 mg tablet Wk 1: 1 tab in pm. Wk 2: 1 tab in am AND 1 tab in pm. Wk 3: 1 tab in am AND 2 tabs in pm. Wk 4: 2 tabs in am AND 2 tabs in pm. Wk 5: 2 tabs in am AND 3 tabs in pm. Wk 6: 3 tabs in am AND 3 tabs in pm. Wk 7: 3 tabs in am AND 4 tabs in pm. Wk 8: switch to the 100 mg tablet and take 100 mg twice daily. - clonazePAM (KLONOPIN) 0.5 mg tablet Take 1 tablet by mouth daily at bedtime for 49 days. Then stop - lamoTRIgine (LAMICTAL) 100 mg tablet Take 1 tablet by mouth once daily. - DULoxetine (CYMBALTA) 30 mg capsule take 1 capsule by mouth once daily - metFORMIN (GLUCOPHAGE) 500 mg tablet Take 500 mg by mouth twice daily with meals. - lisinopril (ZESTRIL, PRINIVIL) 20 mg tablet Take 20 mg by mouth once daily. - BIOTIN ORAL Take by mouth. Problem List As Of Date 06/09/2022 Noted Resolved 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*04/28/2020 Seizures (HCC) [R56.9] 05/05/2022 Nonepileptic episode (HCC) [R56.9] 05/06/2022 Encounter Status:Closed by LORENA MURARY on 06/09/22 [facility] Telephone (NEEPHU) -------- ISABELLE MEDRANO ([id number]) 1940 F Date Time Provider Department 06/09/22 ALDEN HUGHES During your visit today, we recorded the following information about you: Alden Hughes MD 06/09/2022 10:23 AM Signed I was able to reach Dr. Payan, the patient's software quality automation engineer, today. He gave me a summary of the patient's cardiac history. His main question to me was concerning safety of anticoagulation with respect to her seizures and epilepsy. She has paroxysmal atrial fibrillation. He reported that she was in the ED on 06/01, one day prior to her cath, for a seizure . She was discharged home. I discussed the following: - I need an Mri brain to assess if she had any strokes given recent falls and reported weakness. This is scheduled tomorrow. - I will need to see her following the MRI brain for an examination and to assess the need for a repeat full EMU evaluation since the last evaluation was cut short by the patient leaving home. She has a follow up with me on 06/16. - I provided the software quality automation engineer with my mobile phone for any further concerns. - He reported that there is no immediate harm (3% risk of thromboembolic events) in waiting to get the evaluation of seizures and falls before anticoagulation to ensure safety. - I will obtain records from [facility] of ED visits. Allergies As of Date: 06/09/2022 Noted Allergy Reaction KEPPRA (LEVETIRACETAM) 07/24/2019 8 - GI Upset [id number] YMYXNB 07/25/2014 2 - Rash CODEINE 07/29/2015 14 - Other: See Comments Comments: makes me ill NICKEL 06/25/2019 16 - Unknown Date Reviewed: 05/05/2022 Reviewed by: Kim Ham RN - Fully Assessed Reason for Visit: Patient Update [1234] Cmt: Returning software quality automation engineer call Prescriptions as of 06/09/2022 - linaclotide (LINZESS ORAL) Take by mouth. - Amoxicillin 500 mg tablet Take 500 mg by mouth as needed. - mecobalamin, vitamin B12, 1,000 mcg chew Take by mouth. - lamoTRIgine (LAMICTAL) 25 mg tablet Wk 1: 1 tab in pm. Wk 2: 1 tab in am AND 1 tab in pm. Wk 3: 1 tab in am AND 2 tabs in pm. Wk 4: 2 tabs in am AND 2 tabs in pm. Wk 5: 2 tabs in am AND 3 tabs in pm. Wk 6: 3 tabs in am AND 3 tabs in pm. Wk 7: 3 tabs in am AND 4 tabs in pm. Wk 8: switch to the 100 mg tablet and take 100 mg twice daily. - clonazePAM (KLONOPIN) 0.5 mg tablet Take 1 tablet by mouth daily at bedtime for 49 days. Then stop - lamoTRIgine (LAMICTAL) 100 mg tablet Take 1 tablet by mouth once daily. - DULoxetine (CYMBALTA) 30 mg capsule take 1 capsule by mouth once daily - metFORMIN (GLUCOPHAGE) 500 mg tablet Take 500 mg by mouth twice daily with meals. - lisinopril (ZESTRIL, PRINIVIL) 20 mg tablet Take 20 mg by mouth once daily. - BIOTIN ORAL Take by mouth. Problem List As Of Date 06/09/2022 Noted Resolved 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*04/28/2020 Seizures (HCC) [R56.9] 05/05/2022 Nonepileptic episode (HCC) [R56.9] 05/06/2022 Encounter Status:Closed by ALDEN HUGHES on 06/09/22 [facility] MITCHELLISABELLE Shelton ([id number]) 1940 F Date Time Provider Department 06/08/22 ALDEN HUGHES During your visit today, we recorded the following information about you: Alden Hughes MD 06/08/2022 11:15 AM Signed I was notified that the patient's software quality automation engineer, Dr. Beka Payan, was trying to reach me. I called his office ([phone]) and mobile phone ([phone]) and left him a message to call me back. In the meantime I called the patient and spoke to her and her . I also obtained permission to speak to her sqquddjz-iy-acr, Anca, but I could not reach her on her phone due to going to [facility]. The patient reported the following history: - Since 05/06 EMU admission, she did well until after the cath on 06/02, she reports feeling weak all over her body. She is using a cane and walker to ambulate. She denied any weakness or numbness on one side of her body. She denied any symptoms of stroke. She has fallen twice, the last fall being yesterday night. EMS were called but did not take her to the hospital because she did not want to go. - She also reports nausea and loss of appetite - She reports generalized fine tremor in arms and body - She has back pain since needing to recline on a steel bed on 06/02 for two hours for the procedure The reported the following: - He believes the episodes of weakness are not strictly after the procedure and reports intermittent weakness. He said that two days ago she was walking without assistance and now it is worse again. Recommendations: - Continue LTG titration to 100 mg BID. She is currently on week 5 of the schedule. She will go to week 6 on . No rash as previously reported in chart. - She is off the pregabalin for unclear reasons. Will continue to hold for now. - Continue clonazepam 0.5 mg Qhs for remainder of the titration of LTG as a bridge until therapeutic on LTG. - She is scheduled for brain MRI on 06/10 - She will then see me in the office on 06/16 - confirmed the above appointments - A 30-day heart monitor was ordered on discharge from EMU which will follow up on 06/16 appointment Allergies As of Date: 06/08/2022 Noted Allergy Reaction KEPPRA (LEVETIRACETAM) 07/24/2019 8 - GI Upset [id number] YMYXNB 07/25/2014 2 - Rash CODEINE 07/29/2015 14 - Other: See Comments Comments: makes me ill NICKEL 06/25/2019 16 - Unknown Date Reviewed: 05/05/2022 Reviewed by: Kim Ham RN - Fully Assessed Reason for Visit: Returning Patient's Call [408] Patient Update [1234] Prescriptions as of 06/08/2022 - linaclotide (LINZESS ORAL) Take by mouth. - Amoxicillin 500 mg tablet Take 500 mg by mouth as needed. - mecobalamin, vitamin B12, 1,000 mcg chew Take by mouth. - lamoTRIgine (LAMICTAL) 25 mg tablet Wk 1: 1 tab in pm. Wk 2: 1 tab in am AND 1 tab in pm. Wk 3: 1 tab in am AND 2 tabs in pm. Wk 4: 2 tabs in am AND 2 tabs in pm. Wk 5: 2 tabs in am AND 3 tabs in pm. Wk 6: 3 tabs in am AND 3 tabs in pm. Wk 7: 3 tabs in am AND 4 tabs in pm. Wk 8: switch to the 100 mg tablet and take 100 mg twice daily. - clonazePAM (KLONOPIN) 0.5 mg tablet Take 1 tablet by mouth daily at bedtime for 49 days. Then stop - lamoTRIgine (LAMICTAL) 100 mg tablet Take 1 tablet by mouth once daily. - DULoxetine (CYMBALTA) 30 mg capsule take 1 capsule by mouth once daily - metFORMIN (GLUCOPHAGE) 500 mg tablet Take 500 mg by mouth twice daily with meals. - lisinopril (ZESTRIL, PRINIVIL) 20 mg tablet Take 20 mg by mouth once daily. - BIOTIN ORAL Take by mouth. Problem List As Of Date 06/08/2022 Noted Resolved 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*04/28/2020 Seizures (HCC) [R56.9] 05/05/2022 Nonepileptic episode (HCC) [R56.9] 05/06/2022 Medications Discontinued During This Encounter Prescriptions - aspirin 325 mg tablet (Discontinued) Take 325 mg by mouth once daily. - aspirin 325 mg tablet (Discontinued) Take 325 mg by mouth once daily. - B Complex Vitamins capsule (Discontinued) Take 1 capsule by mouth once daily. - pregabalin (LYRICA) 75 mg capsule (Discontinued) Take 1 capsule by mouth three times daily as needed for up to 180 days. - traMADol (ULTRAM) 50 mg tablet (Discontinued) Take 50 mg by mouth twice daily as needed. Encounter Status:Closed by ALDEN HUGHES on 06/08/22 [facility] Telephone (NE50MN) -------- ISABELLE MEDRANO ([id number]) 1940 F Date Time Provider Department 05/31/22 ALDEN HUGHES NE50MN During your visit today, we recorded the following information about you: Lorena Murray 05/31/2022 11:45 AM Signed Seizure activity: Name of Caller : Lia Patel for pt Relationship to patient: [id number] Contact phone number: [phone] pt contact Date of seizure: 05/28/22 Duration: 5 min Back to Baseline (Yes/No): no; having tremors, shaking Emergency treatment needed (Yes/No): no Patient of Dr. Saul Murray 06/01/2022 12:02 PM Signed Pt spouse, Kit calling; would like call back; [phone]. Hardy Oneal RN 06/01/2022 12:55 PM Signed Spoke with patients spouse. He reports violent seizure 05/28/22, when asked what he meant by that, he reports full body shaking no tongue bite, no loss of urine. He described patient having tremors even after seizure. Yesterday, she did this again and he called 911. She was taken to [facility]. She was in Afib with high heart rate. She is scheduled for Cardiac cath 06/02. They did not address seizure. Current meds LTG 25mg, starting tomorrow 50/75 That will be start of week 5. PGB, he denied patient being on KLP 0.5mg hs SHANTE Rascon APRN.SKIN CARVER 06/01/2022 4:38 PM Signed Unclear if epileptic or non-epileptic Would continue LTG titration to 100 mg QHS AND KLP Recent episode of shaking captured in the EMU was non epileptic If she continues to have concern for seizures would recommend they consult neurology inpatient. Brittanie Lugo APRN.SKIN CARVER Allergies As of Date: 05/31/2022 Noted Allergy Reaction KEPPRA (LEVETIRACETAM) 07/24/2019 8 - GI Upset [id number] YMYXNB 07/25/2014 2 - Rash CODEINE 07/29/2015 14 - Other: See Comments Comments: makes me ill NICKEL 06/25/2019 16 - Unknown Date Reviewed: 05/05/2022 Reviewed by: Kim Ham RN - Fully Assessed Reason for Visit: Seizures [97] Cmt: Prescriptions as of 06/02/2022 - pregabalin (LYRICA) 75 mg capsule Take 1 capsule by mouth three times daily as needed for up to 180 days. - lamoTRIgine (LAMICTAL) 25 mg tablet Wk 1: 1 tab in pm. Wk 2: 1 tab in am AND 1 tab in pm. Wk 3: 1 tab in am AND 2 tabs in pm. Wk 4: 2 tabs in am AND 2 tabs in pm. Wk 5: 2 tabs in am AND 3 tabs in pm. Wk 6: 3 tabs in am AND 3 tabs in pm. Wk 7: 3 tabs in am AND 4 tabs in pm. Wk 8: switch to the 100 mg tablet and take 100 mg twice daily. - clonazePAM (KLONOPIN) 0.5 mg tablet Take 1 tablet by mouth daily at bedtime for 49 days. Then stop - lamoTRIgine (LAMICTAL) 100 mg tablet Take 1 tablet by mouth once daily. - DULoxetine (CYMBALTA) 30 mg capsule take 1 capsule by mouth once daily - aspirin 325 mg tablet Take 325 mg by mouth once daily. - traMADol (ULTRAM) 50 mg tablet Take 50 mg by mouth twice daily as needed. - metFORMIN (GLUCOPHAGE) 500 mg tablet Take 500 mg by mouth twice daily with meals. - lisinopril (ZESTRIL, PRINIVIL) 20 mg tablet Take 20 mg by mouth once daily. - B Complex Vitamins capsule Take 1 capsule by mouth once daily. - BIOTIN ORAL Take by mouth. Problem List As Of Date 05/31/2022 Noted Resolved 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*04/28/2020 Seizures (HCC) [R56.9] 05/05/2022 Nonepileptic episode (HCC) [R56.9] 05/06/2022 Encounter Status:Closed by HARDY ONEAL on 06/02/22 [facility] ISABELLE MEDRANO ([id number]) 1940 F Date Time Provider Department 05/11/22 ALDEN HUGHES NE50MN During your visit today, we recorded the following information about you: Lorena Trevor 05/11/2022 9:05 AM Signed Medication Concern Person Calling Kit Medrano Name of medication unsure Concern with medication RASH around groin Patient of Dr. Hughes (hosp d/c) Hardy Oneal RN 05/11/2022 9:29 AM Signed Spoke with patients , he reports rash in patients right groin. Red and itching. She started LTG 05/07. Week 1 25mg once a day (pm) Please advise SHANTE Rascon PA-C 05/11/2022 10:02 AM Signed I would recommend going to an urgent care to have the rash looked at because given the location in the groin, it could be irritation from something else and not a drug rash. It is very important to see the rash in person to determine. If the provider at urgent care thinks it is a drug rash, we would recommend to STOP the lamotrigine and we will discuss another option. JIGAR Kc RN 05/11/2022 11:09 AM Signed Spoke with patients , provided recommendation below. He verbalizes understanding and will call office with the outcome. Hardy Oneal RN Allergies As of Date: 05/11/2022 Noted Allergy Reaction KEPPRA (LEVETIRACETAM) 07/24/2019 8 - GI Upset [id number] YMYXNB 07/25/2014 2 - Rash CODEINE 07/29/2015 14 - Other: See Comments Comments: makes me ill NICKEL 06/25/2019 16 - Unknown Date Reviewed: 05/05/2022 Reviewed by: Kim Ham RN - Fully Assessed Reason for Visit: Medication Concern [Other] Cmt: Rash Prescriptions as of 05/11/2022 - pregabalin (LYRICA) 75 mg capsule Take 1 capsule by mouth three times daily as needed for up to 180 days. - lamoTRIgine (LAMICTAL) 25 mg tablet Wk 1: 1 tab in pm. Wk 2: 1 tab in am AND 1 tab in pm. Wk 3: 1 tab in am AND 2 tabs in pm. Wk 4: 2 tabs in am AND 2 tabs in pm. Wk 5: 2 tabs in am AND 3 tabs in pm. Wk 6: 3 tabs in am AND 3 tabs in pm. Wk 7: 3 tabs in am AND 4 tabs in pm. Wk 8: switch to the 100 mg tablet and take 100 mg twice daily. - clonazePAM (KLONOPIN) 0.5 mg tablet Take 1 tablet by mouth daily at bedtime for 49 days. Then stop - lamoTRIgine (LAMICTAL) 100 mg tablet Take 1 tablet by mouth once daily. - DULoxetine (CYMBALTA) 30 mg capsule take 1 capsule by mouth once daily - aspirin 325 mg tablet Take 325 mg by mouth once daily. - traMADol (ULTRAM) 50 mg tablet Take 50 mg by mouth twice daily as needed. - metFORMIN (GLUCOPHAGE) 500 mg tablet Take 500 mg by mouth twice daily with meals. - lisinopril (ZESTRIL, PRINIVIL) 20 mg tablet Take 20 mg by mouth once daily. - B Complex Vitamins capsule Take 1 capsule by mouth once daily. - BIOTIN ORAL Take by mouth. Problem List As Of Date 05/11/2022 Noted Resolved 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*04/28/2020 Seizures (HCC) [R56.9] 05/05/2022 Nonepileptic episode (HCC) [R56.9] 05/06/2022 Encounter Status:Closed by HARDY ONEAL on 05/11/22 [facility] CASE MANAGEMon 05-06-2022 CASE MANAGEM Normal [facility] CASE MANAGEM Normal [facility] CASE MGT INIT ASSESon 2021 CASE MGT INIT ASSES Normal [facility] CNDSon 05-06-2022 CNDS Normal [facility] HIGH SENSITIVITY TROPONIN T (THIRD) 3 HRS AFTER INITIALon 05-06-2022 HIGH SENSITIVITY ARLINE 16 ng/L High <12 [facility] Comment on above: Order Comment: Speci men Type: BLOOD SPECIMENOrdering Facility: [facility] Address: [address] [place] [address] [place] [address] Result Comment: When assessing risk for acute coronary syndromes: In patients undergoing blood draw greater than or equal to 2 hours from symptom onset, with history of very low to moderate risk and non-ischemic ECG, an initial hs-Troponin T less than 12 ng/L AND a 1 hour delta hs-Troponin T less than 3 ng/L should be considered very low risk for 30 day MACE. Performed By: #### L [id number] ####[facility] LABORATORYCLIA [id number] [place] [address] [facility] NURSING PROGon 05-06-2022 NURSING PROG Normal [facility] TOX SCREEN ROUT URon 022 Amphetamines Confirm (U) [Mass/Vol] Negative Normal Negative [facility] Comment on above: Order Comment: Speci men Type: URINE SPECIMENOrdering Facility: [facility] Address: [address] [place] [address] Result Comment: Cuto ff threshold at 1000 ng/mL. Performed By: #### U TOX2 ####[facility] LABORATORYCLIA [id number] [address] BARBITURATES, URINE Negative Normal Negative [facility] Comment on above: Order Comment: Speci men Type: URINE SPECIMENOrdering Facility: [facility] Address: [address] [place] [address] Result Comment: Cuto ff threshold at 200 ng/mL. Performed By: #### U TOX2 ####[facility] LABORATORYCLIA [id number] [place] [address] [place] BENZODIAZEPINES, UR Negative Normal Negative [facility] Comment on above: Order Comment: Speci men Type: URINE SPECIMENOrdering Facility: [facility] Address: [address] [place] [address] Result Comment: Cuto ff threshold at 200 ng/mL. Performed By: #### U TOX2 ####[facility] LABORATORYCLIA [id number] [address] [place] CANNABINOIDS,URINE Negative Normal Negative [facility] Comment on above: Order Comment: Speci men Type: URINE SPECIMENOrdering Facility: [facility] Address: [address] [address] Result Comment: Cuto ff threshold at 50 ng/mL. Performed By: #### U TOX2 ####[facility] LABORATORYCLIA [id number] [address] [place] Cocaine Ql (U) Negative Normal Negative [facility] Comment on above: Order Comment: Speci men Type: URINE SPECIMENOrdering Facility: [facility] Address: [address] [address] Result Comment: Cuto ff threshold at 300 ng/mL. Performed By: #### U TOX2 ####[facility] LABORATORYCLIA [id number] [address] STATES OF [facility] Ethanol (U) [Mass/Vol] <11 Normal <11 [facility] Comment on above: Order Comment: Speci men Type: URINE SPECIMENOrdering Facility: [facility] Address: [address] [place] [address] Performed By: #### U TOX2 ####[facility] LABORATORYCLIA [id number] [address] Opiates Screen Ql (U) Negative Normal Negative [facility] Comment on above: Order Comment: Speci men Type: URINE SPECIMENOrdering Facility: [facility] Address: [address] [place] [address] Result Comment: Cuto ff threshold at 300 ng/mL. Performed By: #### U TOX2 ####[facility] LABORATORYCLIA [id number] [address] oxyCODONE cutoff Screen (U) [Mass/Vol] Negative Normal Negative [facility] Comment on above: Order Comment: Speci men Type: URINE SPECIMENOrdering Facility: [facility] Address: [address] [place] [address] Result Comment: Cuto ff threshold at 100 ng/mL. Performed By: #### U TOX2 ####[facility] LABORATORYCLIA [id number] [address] Phencyclidine Ql (U) Negative Normal Negative [facility] Comment on above: Order Comment: Speci men Type: URINE SPECIMENOrdering Facility: [facility] Address: [address] [place] [address] Result Comment: Cuto ff threshold at 25 ng/mL. Performed By: #### U TOX2 ####[facility] LABORATORYCLIA [id number] [place] [address] [place] ALLIED HEALTHon 05-05-2022 ALLIED HEALTH Normal [facility] Basic metabolic 2000 panelon 05-05-2022 Anion gap [Moles/Vol] 11 mmol/L Normal 9-18 [facility] Comment on above: Order Comment: Speci men Type: BLOOD SPECIMENOrdering Facility: [facility] Address: [address] [place] [address] Performed By: #### 2 4321-2 ####[facility] GENER[facility] LABORATORYCLIA [id number] [place] [address] [place] Calcium [Mass/Vol] 9.7 mg/dL Normal 8.5-10.2 [facility] Comment on above: Order Comment: Speci men Type: BLOOD SPECIMENOrdering Facility: [facility] Address: [address] [place] [address] Performed By: #### 2 4321-2 ####[facility] LABORATORYCLIA [id number] [place] [address] [place] Chloride [Moles/Vol] 104 mmol/L Normal 97-105 [facility] Comment on above: Order Comment: Speci men Type: BLOOD SPECIMENOrdering Facility: [facility] Address: [address] [place] [address] Performed By: #### 2 4321-2 ####[facility] LABORATORYCLIA [id number] [place] [address] [place] CO2 [Moles/Vol] 25 mmol/L Normal 22-30 [facility] Comment on above: Order Comment: Speci men Type: BLOOD SPECIMENOrdering Facility: [facility] Address: [address] [place] [address] Performed By: #### 2 4321-2 ####[facility] LABORATORYCLIA [id number] [place] [address] [place] Creatinine [Mass/Vol] 0.58 mg/dL Normal 0.58-0.96 [facility] Comment on above: Order Comment: Speci men Type: BLOOD SPECIMENOrdering Facility: [facility] Address: [address] [place] [address] Performed By: #### 2 4321-2 ####[facility] LABORATORYCLIA [id number] [place] [address] [place] ESTIMATED GLOMERULAR FILTRATION RATE 90 mL/min/1.73m??? Normal >=60 [facility] Comment on above: Order Comment: Michelle duron Type: BLOOD SPECIMENOrdering Facility: [facility] Address: [address] [place] [address] Result Comment: Ilda mated Glomerular Filtration Rate (eGFR) is calculated using the 2020 CKD-EPI creatinine equation. This equation utilizes serum creatinine, sex, and age as parameters. The creatinine assay has traceable calibration to isotope dilution-mass spectrometry. Refer to KDIGO guidelines for clinical interpretation. In patients with unstable renal function, e.g. those with acute kidney injury, the eGFR may not accurately reflect actual GFR. Performed By: #### 2 4321-2 ####[facility] LABORATORYCLIA [id number] [place] [address] [place] Glucose [Mass/Vol] 101 mg/dL High 74-99 [facility] Comment on above: Order Comment: Michelle duron Type: BLOOD SPECIMENOrdering Facility: [facility] Address: [address] [place] [address] Result Comment: The [place] Diabetes Association (ADA) provides guidance for cutoff values for fasting glucose and random glucose. The ADA defines fasting as no caloric intake for at least 8 hours. Fasting plasma glucose results between 100 to 125 mg/dL indicate increased risk for diabetes (prediabetes).Fasting plasma glucose results greater than or equal to 126 mg/dL meet the criteria for diagnosis of diabetes. In the absence of unequivocal hyperglycemia, results should be confirmed by repeat testing. In a patient with classic symptoms of hyperglycemia or hyperglycemic crisis, random plasma glucose results greater than or equal to 200 mg/dL meet the criteria for diagnosis of diabetes.Reference: Standards of Medical Care in Diabetes 2016, [place] [employer]. Diabetes Care. 2016.39(Suppl 1). Performed By: #### 2 4321-2 ####[facility] LABORATORYCLIA [id number] [place] [id number] [place] Potassium [Moles/Vol] 4.2 mmol/L Normal 3.7-5.1 [facility] Comment on above: Order Comment: Speci men Type: BLOOD SPECIMENOrdering Facility: [facility] Address: [address] [place] [address] Performed By: #### 2 4321-2 ####[facility] LABORATORYCLIA [id number] [address] [place] [facility] Sodium [Moles/Vol] 140 mmol/L Normal 136-144 [facility] Comment on above: Order Comment: Speci men Type: BLOOD SPECIMENOrdering Facility: [facility] Address: [address] [place] [address] Performed By: #### 2 4321-2 ####[facility] LABORATORYCLIA [id number] [address] Urea nitrogen [Mass/Vol] 11 mg/dL Normal - [facility] Comment on above: Order Comment: Speci men Type: BLOOD SPECIMENOrdering Facility: [facility] Address: [address] [place] [address] Performed By: #### 2 4321-2 ####[facility] LABORATORYCLIA [id number] [address] CBC W Auto Differential pane l (Bld)on 05-05-2022 Basophils (Bld) [#/Vol] 0.08 10*3/uL Normal <0.11 [facility] Comment on above: Order Comment: Speci men Type: BLOOD SPECIMENOrdering Facility: [facility] Address: [address] [place] [address] Performed By: #### 5 7021-8 ####[facility] LABORATORYCLIA [id number] [address] Basophils/100 WBC (Bld) 0.9 % Normal [facility] Comment on above: Order Comment: Speci men Type: BLOOD SPECIMENOrdering Facility: [facility] Address: [address] [place] [address] Performed By: #### 5 7021-8 ####[facility] LABORATORYCLIA [id number] [place] [address] [place] Differential cell count method Nom (Bld) Auto Normal [facility] Comment on above: Order Comment: Speci men Type: BLOOD SPECIMENOrdering Facility: [facility] Address: [address] [place] [address] Performed By: #### 5 7021-8 ####[facility] LABORATORYCLIA [id number] [address] [place] Eosinophils (Bld) [#/Vol] 0.31 10*3/uL Normal <0.46 [facility] Comment on above: Order Comment: Speci men Type: BLOOD SPECIMENOrdering Facility: [facility] Address: [address] [place] [address] Performed By: #### 5 7021-8 ####[facility]ORATORYCLIA [id number] [address] Eosinophils/100 WBC (Bld) 3.4 % Normal [facility] Comment on above: Order Comment: Speci men Type: BLOOD SPECIMENOrdering Facility: [facility] Address: [address] [place] [address] Performed By: #### 5 7021-8 ####[facility] LABORATORYCLIA [id number] [address] [place] Erythrocyte distribution width (RBC) [Ratio] 13.7 % Normal 11.5-15.0 [facility] Comment on above: Order Comment: Speci men Type: BLOOD SPECIMENOrdering Facility: [facility] Address: [address] [place] [address] Performed By: #### 5 7021-8 ####[facility]ORATORYCLIA [id number] [address] [place] Hematocrit (Bld) [Volume fraction] 42.2 % Normal 36.0-46.0 [facility] Comment on above: Order Comment: Speci men Type: BLOOD SPECIMENOrdering Facility: [facility] Address: [address] [place] [address] Performed By: #### 5 7021-8 ####[facility] LABORATORYCLIA [id number] [address] [place] Hemoglobin (Bld) [Mass/Vol] 13.7 g/dL Normal 11.5-15.5 [facility] Comment on above: Order Comment: Speci men Type: BLOOD SPECIMENOrdering Facility: [facility] Address: [address] [place] [address] Performed By: #### 5 7021-8 ####[facility]ORATORYCLIA [id number] [address] [place] Immature granulocytes (Bld) [#/Vol] 0.03 10*3/uL Normal <0.10 [facility] Comment on above: Order Comment: Speci men Type: BLOOD SPECIMENOrdering Facility: [facility] Address: [address] [place] [address] Performed By: #### 5 7021-8 ####[facility]ORATORYCLIA [id number] [address] Immature granulocytes/100 WBC (Bld) 0.3 % Normal [facility] Comment on above: Order Comment: Speci men Type: BLOOD SPECIMENOrdering Facility: [facility] Address: [address] [place] [address] Performed By: #### 5 7021-8 ####[facility]ORATORYCLIA [id number] [address] [place] Lymphocytes (Bld) [#/Vol] 2.00 10*3/uL Normal 1.00-4.00 [facility] Comment on above: Order Comment: Speci men Type: BLOOD SPECIMENOrdering Facility: [facility] Address: [address] [place] [address] Performed By: #### 5 7021-8 ####[facility]ORATORYCLIA [id number] [address] [place] Lymphocytes/100 WBC (Bld) 22.0 % Normal [facility] Comment on above: Order Comment: Speci men Type: BLOOD SPECIMENOrdering Facility: [facility] Address: [address] [place] [address] Performed By: #### 5 7021-8 ####[facility] LABORATORYCLIA [id number] [address] MCH (RBC) [Entitic mass] 31.6 pg Normal 26.0-34.0 [facility] Comment on above: Order Comment: Speci men Type: BLOOD SPECIMENOrdering Facility: [facility] Address: [address] [place] [address] Performed By: #### 5 7021-8 ####[facility] LABORATORYCLIA [id number] [address] STATES OF [facility] MCHC (RBC) [Mass/Vol] 32.5 g/dL Normal 30.5-36.0 [facility] Comment on above: Order Comment: Speci men Type: BLOOD SPECIMENOrdering Facility: [facility] Address: [address] [place] [address] Performed By: #### 5 7021-8 ####[facility] LABORATORYCLIA [id number] [address] [place] [facility] MCV (RBC) [Entitic vol] 97.5 fL Normal 80.0-100.0 [facility] Comment on above: Order Comment: Speci men Type: BLOOD SPECIMENOrdering Facility: [facility] Address: [address] [place] [address] Performed By: #### 5 7021-8 ####[facility] LABORATORYCLIA [id number] [address] [facility] Monocytes (Bld) [#/Vol] 0.58 10*3/uL Normal <0.87 [facility] Comment on above: Order Comment: Speci men Type: BLOOD SPECIMENOrdering Facility: [facility] Address: [address] [place] [address] Performed By: #### 5 7021-8 ####[facility]ORATORYCLIA [id number] [address] Monocytes/100 WBC (Bld) 6.4 % Normal [facility] Comment on above: Order Comment: Speci men Type: BLOOD SPECIMENOrdering Facility: [facility] Address: [address] [place] [address] Performed By: #### 5 7021-8 ####[facility] LABORATORYCLIA [id number] [address] [place] Neutrophils (Bld) [#/Vol] 6.08 10*3/uL Normal 1.45-7.50 [facility] Comment on above: Order Comment: Speci men Type: BLOOD SPECIMENOrdering Facility: [facility] Address: [address] [place] [address] Performed By: #### 5 7021-8 ####[facility]ORATORYCLIA [id number] [address] Neutrophils/100 WBC (Bld) 67.0 % Normal [facility] Comment on above: Order Comment: Speci men Type: BLOOD SPECIMENOrdering Facility: [facility] Address: [address] [place] [address] Performed By: #### 5 7021-8 ####[facility]ORATORYCLIA [id number] [address] Nucleated RBC (Bld) [#/Vol] 10*3/uL Normal <0.01 [facility] Comment on above: Order Comment: Speci men Type: BLOOD SPECIMENOrdering Facility: [facility] Address: [address] [place] [address] Performed By: #### 5 7021-8 ####[facility]ORATORYCLIA [id number] [address] Nucleated RBC/100 WBC (Bld) [Ratio] 0.0 /100 WBC Normal [facility] Comment on above: Order Comment: Speci men Type: BLOOD SPECIMENOrdering Facility: [facility] Address: [address] [place] [address] Performed By: #### 5 7021-8 ####[facility]ORATORYCLIA [id number] [address] Platelet mean volume (Bld) [Entitic vol] 9.7 fL Normal 9.0-12.7 [facility] Comment on above: Order Comment: Speci men Type: BLOOD SPECIMENOrdering Facility: [facility] Address: [address] [place] [address] Performed By: #### 5 7021-8 ####[facility]ORATORYCLIA [id number] [address] OF [place] Platelets (Bld) [#/Vol] 257 10*3/uL Normal 150-400 [facility] Comment on above: Order Comment: Speci men Type: BLOOD SPECIMENOrdering Facility: [facility] Address: [address] [place] [address] Performed By: #### 5 7021-8 ####[facility]ORATORYCLIA [id number] [address] RBC (Bld) [#/Vol] 4.33 10*6/uL Normal 3.90-5.20 [facility] Comment on above: Order Comment: Speci men Type: BLOOD SPECIMENOrdering Facility: [facility] Address: [address] [place] [address] Performed By: #### 5 7021-8 ####[facility]ORATORYCLIA [id number] [address] OF [facility] WBC (Bld) [#/Vol] 9.08 10*3/uL Normal 3.70-11.00 [facility] Comment on above: Order Comment: Speci men Type: BLOOD SPECIMENOrdering Facility: [facility] Address: [address] [place] [address] Performed By: #### 5 7021-8 ####[facility] LABORATORYCLIA [id number] [address] CNOVon 05-05-2022 CNOV Office Visit (NEURMM ) -------- ISABELLE MEDRANO ([id number]) 1940 F Date Time Provider Department 05/05/22 9:00 AM KASH SILVESTRE, EPHRAIM MATHIAS During your visit today, we recorded the following information about you: Pulse Blood pressure Weight 78/minute 134/63 83.1 kg Ephraim Tate MD 05/05/2022 12:00 PM Signed ESTABLISHED PATIENT VISIT CHIEF COMPLAINT: Seizures (new complaint) HISTORY OF PRESENT ILLNESS: Isabelle Medrano is a 81 year old female, BMI 29.59 kg/m2 with a PMH significant for and per last neuro note by Mundo Rose CNP on 01/21/22 (I last saw patient on 04/13/21): 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 Currently taking Lyrica 75mg TID as well as Cymbalta 30mg daily. Previously discussed starting alpha lipoic acid 600mg daily as well, however, she has not yet started supplement at this time. Exam with minimal progression in symptoms since time of previous appointment. Discussed options today including increasing Lyrica, increasing Cymbalta, or starting alternative medication. At this time she would like to try alternative medication. Will begin Trileptal 150mg BID. If symptoms improve and no SE from Trileptal will begin to titrate down Lyrica and discontinue. She may being alpha lipoic acid as well. Continue Cymbalta as previously prescribed and continue to follow with PCP for BG management. M48.061 Spinal stenosis of lumbar region, unspecified whether neurogenic claudication present Comment: Previous lumbar MRI noting moderate canal stenosis and consult placed to spine medicine. She has not yet scheduled appointment though notes that she no longer has lumbar symptoms and no symptoms radiating into her legs. Encouraged to schedule consult if pain and/or weakness returns or worsens. R41.3 Memory problem Comment: Patient reporting new memory concerns that began roughly five weeks ago. MOCA completed in office with score of 25/29 with almost all points lost on short term recall. No other significant new concerns reported and no new exam findings noted. At this time will complete blood work as noted below to rule out underlying cause of memory concerns such as metabolic abnormality or vitamin deficiency. Will await results and repeat cognitive testing at time of follow up appointment. If concern remain or exam findings change, may consider further testing. Patient now presenting for new complaint of seizure. Note pt left room at 9AM (time of appointment) to indicate to staff that they need to leave by 930AM. I have no records from [facility] where pt was evaluated for seizure. Just a AVR provided to pt stating they were seen for anxiety and tremor. Pt states had a seizure after not having one in many many years. Then states last night had a partial seizure per pt in which she felt the brain felt like fog coming down over it. States just finished supper. Pt has never told me of a seizure disorder. States they started in high school and was placed on PHT and for many years never had a problem until about 14 days ago. During that episode, patient reportedly passed out, started convulsing, and lasted about 5 minutes. Patient states last thing she remembers is her coming to her chair and asking her what happened. No tongue biting. No loss of bladder control. states entire body shaking and very violent. When shaking stopped, patient was immediately back to baseline. Then went to bed and started shaking again and lasted about a minute. Then fell back to sleep again and started to shake again and pt recall shaking. Then about 4PM started shaking again and taken to ER. In the ER at [facility] per family had ECG and CT brain and labs and all normal. No EEG. Patient reports 2 episodes in the past week both of which occurred upon going to bed. There is inconsistent history of how many episodes of possible seizures occurred over the past 2 weeks. Family is reporting more than 4 days of seizures in past 2 weeks. Then state 2 episodes yesterday of shaking with impaired consciousness. At this time very difficult to get an exact count of number of episodes over past 2 weeks. Per my count of events discussed during visit, possibly 15 in past 2 weeks. Only medication started by ER was Lorazepam. Note pt taking Tramadol which could lower seizure threshold. Pt states upset about diagnosis of Alzheimer's disease made at last neuro appointment but this is not in the notes of Mundo Rose CNP. Appears trileptal started by Mundo Rose CNP last visit was cancelled by PCP and never took this med. Patient is scheduled for angiogram in 2 days. Patient states limited memory over the past 2 weeks. states over last couple months significant deteriora (more content not included)... Normal [facility] CONSULTon 05-05-2022 CONSULT Normal [facility] CT BRAIN WO IVCONon 05-05-20 CT BRAIN WO IVCON Normal [facility] ECG COMPLETEon 05-05-2022 ECG COMPLETE Normal [facility] ED Triage Noteon 05-05-2022 ED Triage Note Normal [facility] HIGH SENSITIVITY TROPONIN T (INITIAL)on 05-05-2022 HIGH SENSITIVITY ARLINE 15 ng/L High <12 [facility] Comment on above: Order Comment: Michelle duron Type: BLOOD SPECIMENOrdering Facility: [facility] Address: [address] [place] [address] Result Comment: When assessing risk for acute coronary syndromes: In patients undergoing blood draw greater than or equal to 2 hours from symptom onset, with history of very low to moderate risk and non-ischemic ECG, an initial hs-Troponin T less than 12 ng/L AND a 1 hour delta hs-Troponin T less than 3 ng/L should be considered very low risk for 30 day MACE. Performed By: #### L [id number] ####[facility]ORATORYCLIA [id number] [address] OF [facility] HIGH SENSITIVITY TROPONIN T (SECOND)on 05-05-2022 HIGH SENSITIVITY ARLINE 15 ng/L High <12 [facility] Comment on above: Order Comment: Michelle duron Type: BLOOD SPECIMENOrdering Facility: [facility] Address: [address] [place] [address] Result Comment: When assessing risk for acute coronary syndromes: In patients undergoing blood draw greater than or equal to 2 hours from symptom onset, with history of very low to moderate risk and non-ischemic ECG, an initial hs-Troponin T less than 12 ng/L AND a 1 hour delta hs-Troponin T less than 3 ng/L should be considered very low risk for 30 day MACE. Performed By: #### L [id number] ####[facility] LABORATORYCLIA [id number] [place] [address] [facility] HISTORY PHYSICALon HISTORY PHYSICAL Normal [facility] SARS-CoV-2 RNA Resp Ql AVRIL+p robeon 05-05-2022 SARS-CoV-2 (COVID-19) RNA AVRIL+probe Ql (Resp) COVID 19 RESULT: SARS-CoV-2 (Agent of COVID-19) Not Detected by RT-PCR or equivalent method. This test has been authorized by FDA under an Emergency Use Authorization (EUA). Normal [facility] Comment on above: Performed By: #### 9 4500-6 ####[facility] LABORATORYCLIA [id number] [place] [address] [facility] CNPAbigail 04-26-2022 CNPN Telephone (NAREN) -------- ISABELLE MEDRANO ([id number]) 1940 F Date Time Provider Department 04/26/22 EPHRAIM TATE JR During your visit today, we recorded the following information about you: Madisyn Chaidez 04/26/2022 11:05 AM Signed Patient's spouse called to report that she was admitted [facility] on 04/24/22 for increase in symptoms of body tremors, weakness, and fatigue. She was prescribed medication but only for three days. She has not experienced the tremors since being hospitalized but her fatigue and weakness has not improved. Unable to schedule for patient to be seen sooner that current appointment on 05/28/21. Please contact patient's spouse to advise on plan of care. Shelley Webster RN 04/27/2022 8:44 AM Signed Patient's Daughter in Law Lia calls and states that patient has had seizures since being a [facility]. Patient has had one on Tuesday and on yesterday. They had talked to patient yesterday, and she was not incoherent. Patient was given anti anxiety medications at hospital. Family feels like patient needs to be seen sooner than 05/28/2021. Please review and advise, SHANTE Fernandez MD 04/27/2022 9:11 AM Signed If patient is continuing to have recurrent seizures then recommend that patient present to ER for evaluation and possible hospital admit with neuro evaluation. If these events are occurring daily, would recommend presenting to [facility] if possible in case 24 hours + EEG needed. MD Lluvia Anguiano CT 04/27/2022 9:30 AM Signed TC to ARIANA Fitzgerald with no answer. Left message to return call to office to receive update. Lluvia Juárez CT Kristina Blank Pss 04/28/2022 12:47 PM Signed Talked to [id number] Anca and scheduled the patient an appointment. Allergies As of Date: 04/26/2022 Noted Allergy Reaction KEPPRA (LEVETIRACETAM) 07/24/2019 8 - GI Upset [id number] 07/25/2014 2 - Rash CODEINE 07/29/2015 14 - Other: See Comments Comments: makes me ill NICKEL 06/25/2019 16 - Unknown Date Reviewed: 01/21/2022 Reviewed by: Maribel Rose APRN.SKIN CARVER - Fully Assessed Reason for Visit: Patient Update [9194] Patient Question [4727] Prescriptions as of 04/28/2022 - DULoxetine (CYMBALTA) 30 mg capsule take 1 capsule by mouth once daily - OXcarbazepine (TRILEPTAL) 150 mg tablet Take 1 tablet by mouth twice daily. - pregabalin (LYRICA) 75 mg capsule Take 1 capsule by mouth three times daily for 90 days. - alpha lipoic acid 600 mg tab Take 600 mg by mouth once daily. - oxybutynin ER (DITROPAN XL) 10 mg 24 hr tablet Take 1 tablet by mouth once daily. - aspirin 325 mg tablet Take 325 mg by mouth once daily. - traMADol (ULTRAM) 50 mg tablet Take 50 mg by mouth twice daily as needed. - Ascorbic Acid 1,000 mg TbER Ascorbic Acid VITAMIN C CR CR-TABS One tablet by mouth daily ASCORBIC ACID CR-TABS Maribell Arias PA-C 09-06-2016 [facility] ([id number]) - cyanocobalamin (VITAMIN B-12) 1,000 mcg tab Vitamin B 12 VITAMIN B-12 1000 MCG TABS One tablet by mouth daily CYANOCOBALAMIN [id number] Coleen Erwin RN 07-23-2014 [facility] ([id number]) - ketoconazole (NIZORAL) 2 % cream - metFORMIN (GLUCOPHAGE) 500 mg tablet - lisinopril (ZESTRIL, PRINIVIL) 20 mg tablet Take 20 mg by mouth once daily. - cholecalciferol (VITAMIN D3) 1,000 unit tab tablet Take 1,000 Units by mouth as needed. - B Complex Vitamins capsule Take 1 capsule by mouth once daily. - BIOTIN ORAL Take by mouth. Problem List As Of Date 04/26/2022 Noted Resolved 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*04/28/2020 Encounter Status:Closed by KRISTINA SHERMAN on 04/28/22 [facility] Babak 01-22-2022 RADHIKAN Telephone (NAREN) -------- ISABELLE MEDRANO ([id number]) 1940 F Date Time Provider Department 01/22/22 MARIBEL ROSE During your visit today, we recorded the following information about you: Krista Coreas LPN 01/22/2022 2:08 PM Signed ----- Message from Maribel Rose APRN.SKIN CARVER sent at 01/22/2022 7:13 AM EDT ----- Your vitamin B12 level has come back in the low/low normal range (under 400). Please take an over the counter supplement to help treat this issue as when the level is under 400 it can cause symptoms at times. [place] treatment would be through the under the tongue method (may be labeled as lozenge, sublingual, or SL) and take the smallest amount you can find (typically 500mcg-1,000mcg) as this usually will raise the vitamin B12 level up quite a bit due to better absorption. Krista Coreas LPN 01/22/2022 2:10 PM Signed LEFT MESSAGE FOR PATIENT TO CALL OFFICE. Swetha Pride RN 01/22/2022 2:51 PM Signed Patient returns call and results and provider message reviewed. Patient verbalizes understanding and asks if there are any other vitamin supplements provider would recommend for memory/cognition in addition to the Vitamin B-12. SHANTE Zhou APRN.RADHIKA 01/25/2022 4:09 PM Signed At this time as folate is within normal range would just recommend B12. Krista Coreas LPN 01/25/2022 4:20 PM Signed PATIENT NOTIFIED OF SAME. Allergies As of Date: 01/22/2022 Noted Allergy Reaction KEPPRA (LEVETIRACETAM) 07/24/2019 8 - GI Upset [id number] 07/25/2014 2 - Rash CODEINE 07/29/2015 14 - Other: See Comments Comments: makes me ill NICKEL 06/25/2019 16 - Unknown Date Reviewed: 01/21/2022 Reviewed by: Maribel Rose APRN.SKIN CARVER - Fully Assessed Reason for Visit: Results [95] Prescriptions as of 01/25/2022 - OXcarbazepine (TRILEPTAL) 150 mg tablet Take 1 tablet by mouth twice daily. - DULoxetine (CYMBALTA) 30 mg capsule take 1 capsule by mouth once daily - pregabalin (LYRICA) 75 mg capsule Take 1 capsule by mouth three times daily for 90 days. - alpha lipoic acid 600 mg tab Take 600 mg by mouth once daily. - oxybutynin ER (DITROPAN XL) 10 mg 24 hr tablet Take 1 tablet by mouth once daily. - aspirin 325 mg tablet Take 325 mg by mouth once daily. - traMADol (ULTRAM) 50 mg tablet Take 50 mg by mouth twice daily as needed. - Ascorbic Acid 1,000 mg TbER Ascorbic Acid VITAMIN C CR CR-TABS One tablet by mouth daily ASCORBIC ACID CR-TABS Maribell Arias PA-C 09-06-2016 [facility] ([id number]) - cyanocobalamin (VITAMIN B-12) 1,000 mcg tab Vitamin B 12 VITAMIN B-12 1000 MCG TABS One tablet by mouth daily CYANOCOBALAMIN [id number] Coleen Erwin RN 07-23-2014 [facility] ([id number]) - ketoconazole (NIZORAL) 2 % cream - metFORMIN (GLUCOPHAGE) 500 mg tablet - lisinopril (ZESTRIL, PRINIVIL) 20 mg tablet Take 20 mg by mouth once daily. - cholecalciferol (VITAMIN D3) 1,000 unit tab tablet Take 1,000 Units by mouth as needed. - B Complex Vitamins capsule Take 1 capsule by mouth once daily. - BIOTIN ORAL Take by mouth. Problem List As Of Date 01/22/2022 Noted Resolved 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*04/28/2020 Encounter Status:Closed by KRISTA COREAS LPN on 01/25/22 [facility] CASAOVанна 01-21-2022 CNPEDRO LUIS Office Visit (NAREN ) -------- ISABELLE MEDRANO ([id number]) 1940 F Date Time Provider Department 01/21/22 11:30 AM MARIBEL ROSE During your visit today, we recorded the following information about you: Pulse Respiration Blood pressure Weight 79/minute 14/minute 128/77 87.5 kg Maribel Rose APRN.CNP 01/21/2022 12:58 PM Signed [facility] Follow-up Visit Follow-up note January 21, 2022 HPI: Ms. Medrano presents today for a follow-up visit. 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 Lyrica dose was increased to 100mg TID at time of last appointment, however, there was concern for possible kidney stone and medication was decreased to 75mg while awaiting results. After negative workup from the ED and UTI dx, pt was to restart 100mg TID, however, on review it appears she has been filling 75mg prescription. Today she reports symptoms are well managed with current dose of medication therefore will continue Lyrica 75mg TID. Note she is also taking Cymbalta 30mg. Previously instructed to begin alpha lipoic acid 600mg daily, however, she reports that she did not remember to poultry picker supplement and will do so when she refills her Lyrica. Continue to follow with PCP for BG management. M48.061 Spinal stenosis of lumbar region, unspecified whether neurogenic claudication present Comment: MRI lumbar spine completed since previous appointment noting moderate canal stenosis and recommendation made for patient to be seen by spine medicine. She reports that she had appointment scheduled but had to cancel due to illness. Will reschedule after appointment today. She states she has symptoms from her neuropathy. States that it stinks. Feels it is worse in the evening. Currently taking Lyrica 75mg TID. She is also still taking Cymbalta 30mg. Not taking alpha lipoic acid. She did go to see urology yesterday and everything is going well. No infection. She does note increased sweating. Feels like this will happen even when doing a small chore. Denies night sweats. Has not yet spoke with PCP. BG has been ok. She has not yet seen spine medicine. No longer having low back pain. States it does not radiate into her legs. States memory might be decreasing. Only noticed this fairly recently. Maybe 5-6 weeks ago. Not severe. States yesterday she went to see the doctor and could not remember how to get to the office. States her father had memory issues. Not forgetting medications. Not forgetting people who are familiar to her. Could not remember which doctor she was seeing the other day. MOCA 01/21/22 Visuospatial/exec (5-5) dot connect deferred, incorrect cube copy (3/4) Naming (0-3) (3/3) Memory Words, up to 2 trials: Face, Velvet, Hindu, Jesus, Red (no points) 5/5 first try, 5/5 second try Attention forwards: 2 1 8 5 4 (0-1) (05/16) Attention backwards: 7 4 2 (0-1) (05/16) Tap for the A : F B A C M N A A J K L B A F A K D E A A A J A M O F A A B (1 point if 0 or 1 error) (05/16) Serial subtraction by 7: [id number] (3 points for correct 4 or 5; 2 points for 2 or 3 correct; 1 point for 1 correct) [id number] (3/3) Language: repeat: I only know that [facility] is the one to help today (0-1) (05/16) Language: repeat: The cat always hid under the couch when dogs were in the room (0-1) (05/16) Fluency: max words beginning with the letter F (1 point if 11 or more words) (05/16) Abstraction: practice banana-orange=fruit. Then train-bicycle (1) AND watch-ruler (1) total: (2) (06/17) Delayed recall: recall words: face, velvet, methodist, jesus, red (0-5) (06/20) Orientation: date(1), month(1), year(1), day(1), place(1), city(1) max 6 points 01/21/22 thurs, [facility] (10/19) Total Score max 29 (25) No past medical history on file. No past surgical history on file. Current Outpatient Medications on File Prior to Visit Medication Sig DULoxetine (CYMBALTA) 30 mg capsule take 1 capsule by mouth once daily pregabalin (LYRICA) 75 mg capsule Take 1 capsule by mouth three times daily for 90 days. alpha lipoic acid 600 mg tab Take 600 mg by mouth once daily. oxybutynin ER (DITROPAN XL) 10 mg 24 hr tablet Take 1 tablet by mouth once daily. aspirin 325 mg tablet Take 325 mg by mouth once daily. (Patient not taking: Reported on 09/17/2021 ) traMADol (ULTRAM) 50 mg tablet Take 50 mg by mouth twice daily as needed. Ascorbic Acid 1,000 mg TbER Ascorbic Acid VITAMIN C CR CR-TABS One tablet by mouth daily ASCORBIC ACID CR-TABS Maribell Arias PA-C 09-06-2016 [facility] ([id number]) cyanocobalamin (VITAMIN B-12) 1,000 mcg tab Vitamin B 12 VITAMIN B-12 1000 MCG TABS One tablet by mouth daily CYANOCOBALAMIN [id number] Coleen Erwin RN 07-23-2014 (more content not included)... Normal [facility] Comprehensive metabolic 2000 panelon 01-21-2022 Albumin [Mass/Vol] 4.5 g/dL Normal 3.9-4.9 [facility] Comment on above: Order Comment: Speci men Type: BLOOD SPECIMENOrdering Facility: [facility] Address: [address] [place] [address] Performed By: #### 2 4323-8, 2-9, 4-8, 3016-3 ####[facility] [id number] [place] [address] [place] ALP [Catalytic activity/Vol] 144 U/L High 34-123 [facility] Comment on above: Order Comment: Speci men Type: BLOOD SPECIMENOrdering Facility: [facility] Address: [address] [place] [address] Performed By: #### 2 4323-8, 2-9, 4-8, 3016-3 ####[facility] [id number] [place] [address] [place] ALT [Catalytic activity/Vol] 15 U/L Normal 7-38 [facility] Comment on above: Order Comment: Speci men Type: BLOOD SPECIMENOrdering Facility: [facility] Address: [address] [place] [address] Performed By: #### 2 4323-8, 2-9, 4-8, 3016-3 ####[facility] [id number] [place] [address] [place] Anion gap [Moles/Vol] 11 mmol/L Normal 9-18 [facility] Comment on above: Order Comment: Speci men Type: BLOOD SPECIMENOrdering Facility: [facility] Address: [address] [place] [address] Performed By: #### 2 4323-8, 2132-9, 2284-8, 3016-3 ####[facility] [id number] [place] [address] [place] AST [Catalytic activity/Vol] 18 U/L Normal 13-35 [facility] Comment on above: Order Comment: Speci men Type: BLOOD SPECIMENOrdering Facility: [facility] Address: [address] [place] [address] Performed By: #### 2 4323-8, 2-9, 4-8, 3016-3 ####[facility] [id number] [address] [place] Bilirubin [Mass/Vol] 0.5 mg/dL Normal 0.2-1.3 [facility] Comment on above: Order Comment: Speci men Type: BLOOD SPECIMENOrdering Facility: [facility] Address: [address] [place] [address] Performed By: #### 2 4323-8, 2-9, 4-8, 3016-3 ####[facility] [id number] [place] [address] [place] Calcium [Mass/Vol] 9.3 mg/dL Normal 8.5-10.2 [facility] [place] Comment on above: Order Comment: Speci men Type: BLOOD SPECIMENOrdering Facility: [facility] Address: [address] [place] [address] Performed By: #### 2 4323-8, 2132-9, 2284-8, 3016-3 ####[facility] [id number] [place] [address] [place] Chloride [Moles/Vol] 107 mmol/L High 97-105 [facility] Comment on above: Order Comment: Speci men Type: BLOOD SPECIMENOrdering Facility: [facility] Address: [address] [place] [address] Performed By: #### 2 4323-8, 2132-9, 2284-8, 3016-3 ####[facility] [id number] [place] [address] [place] CO2 [Moles/Vol] 24 mmol/L Normal 22-30 [facility] Comment on above: Order Comment: Speci men Type: BLOOD SPECIMENOrdering Facility: [facility] Address: [address] [place] [address] Performed By: #### 2 4323-8, 2-9, 4-8, 3016-3 ####[facility] [id number] [place] [address] [place] Creatinine [Mass/Vol] 0.69 mg/dL Normal 0.58-0.96 [facility] Comment on above: Order Comment: Speci men Type: BLOOD SPECIMENOrdering Facility: [facility] Address: [address] [place] [address] Performed By: #### 2 4323-8, 2-9, 4-8, 3016-3 ####[facility] [id number] [place] [address] [place] ESTIMATED GLOMERULAR FILTRATION RATE 86 mL/min/1.73m??? Normal >=60 [facility] Comment on above: Order Comment: Speci men Type: BLOOD SPECIMENOrdering Facility: [facility] Address: [address] [place] [address] Result Comment: Ilda mated Glomerular Filtration Rate (eGFR) is calculated using the 2020 CKD-EPI creatinine equation. This equation utilizes serum creatinine, sex, and age as parameters. The creatinine assay has traceable calibration to isotope dilution-mass spectrometry. Refer to KDIGO guidelines for clinical interpretation. In patients with unstable renal function, e.g. those with acute kidney injury, the eGFR may not accurately reflect actual GFR. Performed By: #### 2 3-8, 9, 2283-12, 6-3 ####[facility] [id number] [address] [address] [place] Glucose [Mass/Vol] 112 mg/dL High 74-99 [facility] [place] Comment on above: Order Comment: Michelle duron Type: BLOOD SPECIMENOrdering Facility: [facility] Address: [address] [id number] Result Comment: The [place] [employer] Association (ADA) provides guidance for cutoff values for fasting glucose and random glucose. The ADA defines fasting as no caloric intake for at least 8 hours. Fasting plasma glucose results between 100 to 125 mg/dL indicate increased risk for diabetes (prediabetes). Fasting plasma glucose results greater than or equal to 126 mg/dL meet the criteria for diagnosis of diabetes. In the absence of unequivocal hyperglycemia, results should be confirmed by repeat testing. In a patient with classic symptoms of hyperglycemia or hyperglycemic crisis, random plasma glucose results greater than or equal to 200 mg/dL meet the criteria for diagnosis of diabetes. Reference: Standards of Medical Care in Diabetes 2016, [place] [employer] Association. Diabetes Care. 2016.39(Suppl 1). Performed By: #### 2 4323-8, 9, 2283-12, 3015-3 ####[facility] [id number] [address] [address] [place] Potassium [Moles/Vol] 4.4 mmol/L Normal 3.7-5.1 [facility] Comment on above: Order Comment: Michelle duron Type: BLOOD SPECIMENOrdering Facility: [facility] Address: [address] [place] [address] Performed By: #### 2 4323-8, 9, 2283-12, 6-3 ####[facility] [id number] [place] [address] [place] Protein [Mass/Vol] 6.6 g/dL Normal 6.3-8.0 [facility] [place] Comment on above: Order Comment: Speci men Type: BLOOD SPECIMENOrdering Facility: [facility] Address: [address] [place], [place] [address] Performed By: #### 2 4323-8, 2-9, 4-8, 3016-3 ####[facility] [id number] [place] [address] [place] Sodium [Moles/Vol] 142 mmol/L Normal 136-144 [facility] [place] Comment on above: Order Comment: Speci men Type: BLOOD SPECIMENOrdering Facility: [facility] Address: [address] [place] [address] Performed By: #### 2 4323-8, 2-9, 4-8, 3016-3 ####[facility] [id number] [place] [address] [place] Urea nitrogen [Mass/Vol] 19 mg/dL Normal 7-21 [facility] Comment on above: Order Comment: Speci men Type: BLOOD SPECIMENOrdering Facility: [facility] Address: [address] [place] [address] Performed By: #### 2 4323-8, 2131-9, 4-8, 3016-3 ####[facility] [id number] [place] [address] [place] Folate SerPl-mCncon 01-22-20 22 Folate [Mass/Vol] ng/mL Normal >4.[address] [facility] Comment on above: Order Comment: Speci men Type: BLOOD SPECIMENOrdering Facility: [facility] Address: [address] [place], [place] [phone] Result Comment: A re sult of > 20 ng/mL is not necessarily indicative of a pathologic or treatable condition: it reflects a limitation of the test methodology. Assay reference range: 4.8 to 24.2 ng/mL. Suitable for detection of folate deficiency. Reference: Folate III (Folate III) [package insert V 1.0 Iranian]. [facility], [place], [place]: March 2015. Performed By: #### 2 4323-8, 2-9, 4-8, 3016-3 ####[facility] [id number] [address] [place] TSH SerPl-aCncon 01-21-2022 TSH Qn 3.500 m[IU]/L Normal 0.270-4.200 [facility] Comment on above: Order Comment: Michelle duron Type: BLOOD SPECIMENOrdering Facility: [facility] Address: [address] [place] [address] Performed By: #### 2 4323-8, 2131-9, 2283-8, 6-3 ####[facility] [id number] [address] Vit B12 SerPl-mCncon 022 Cobalamin (Vitamin B12) [Mass/Vol] 381 pg/mL Normal 232-1245 [facility] Comment on above: Order Comment: Michelle duron Type: BLOOD SPECIMENOrdering Facility: [facility] Address: [address] [place] [address] Performed By: #### 2 4323-8, 2131-9, 2283-8, 6-3 ####[facility] [id number] [address] [place] CNOVon 09-17-2021 CNOV Office Visit (NEMHELIO ) -------- ISABELLE MEDRANO ([id number]) 1940 F Date Time Provider Department 09/17/21 11:30 AM MARIBEL ROSE During your visit today, we recorded the following information about you: Temperature Pulse Respiration Blood pressure 97.3 degrees 73/minute 18/minute 122/78 Weight 84.4 kg Maribel Rose APRN.[employer] 09/17/2021 12:28 PM Signed [facility] Follow-up Visit Follow-up note September 17, 2021 HPI: Ms. Medrano presents today for a follow-up visit. 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 Was taking gabapentin and Cymbalta with minimal relief of symptoms. At previous appointment gabapentin was discontinued and she instead began Lyrica 75mg TID. She was also to start alpha lipoic acid 600mg daily, however, she was unable to fill prescription. Today she reports improvement in symptoms, though notes that pain and discomfort can still be present upon standing for extended length of time. Discussed options including increasing dose of Lyrica as Lyrica has provided some relief of symptoms thus far verses trial of alternative medication. At this time she chooses to increase dose of Lyrica and will send prescription for 100mg TID. She will also start alpha lipoic acid as well. If no further improvement with increased dose of Lyrica can try trial of alternative medication such as Trileptal or Keppra. Will continue Cymbalta 30mg as previously prescribed. ? She states neuropathy symptoms are about the same. Has been taking medication regularly. If she forgets to take her medication she will note neuropathy symtpoms return. Feels like Lyrica controls symptoms well. Currently taking 100mg TID. However, on review of PDMP it states she is taking only 75mg TID. Still taking Cymbalta 30mg daily. She has not yet started the alpha lipoic acid. States she completely forgot about the medication. She has not yet seen Dr. Fermin. States she called to make an appointment but she had the flu and was unable to attend. States she was very sick with stomach issues. States she has the information at home to set up an appointment. She then states she is unsure if she wants to see spine/pain as her follows with pain management and has not had much relief of sx. States she does not often check her BG at home. She cannot recall her last A1C. Hx of R knee surgery last January. Denies new onset weakness, speech changes, vision changes, falls, LOC. No past medical history on file. No past surgical history on file. Current Outpatient Medications on File Prior to Visit Medication Sig - DULoxetine (CYMBALTA) 30 mg capsule take 1 capsule by mouth once daily - pregabalin (LYRICA) 75 mg capsule Take 1 capsule by mouth three times daily for 90 days. - oxybutynin ER (DITROPAN XL) 10 mg 24 hr tablet Take 1 tablet by mouth once daily. - alpha lipoic acid 600 mg tab Take 600 mg by mouth once daily. - aspirin 325 mg tablet Take 325 mg by mouth once daily. - traMADol (ULTRAM) 50 mg tablet Take 50 mg by mouth twice daily as needed. - Ascorbic Acid 1,000 mg TbER Ascorbic Acid VITAMIN C CR CR-TABS One tablet by mouth daily ASCORBIC ACID CR-TABS Maribell Arias PA-C 09-06-2016 [facility] ([id number]) - cyanocobalamin (VITAMIN B-12) 1,000 mcg tab Vitamin B 12 VITAMIN B-12 1000 MCG TABS One tablet by mouth daily CYANOCOBALAMIN [id number] Coleen Erwin RN 07-23-2014 [facility] ([id number]) - ketoconazole (NIZORAL) 2 % cream - metFORMIN (GLUCOPHAGE) 500 mg tablet - lisinopril (ZESTRIL, PRINIVIL) 20 mg tablet Take 20 mg by mouth once daily. - cholecalciferol (VITAMIN D3) 1,000 unit tab tablet Take 1,000 Units by mouth as needed. - B Complex Vitamins capsule Take 1 capsule by mouth once daily. (Patient not taking: Reported on 06/11/2021 ) - BIOTIN ORAL Take by mouth. (Patient not taking: Reported on 06/11/2021 ) No current facility-administered medications on file prior to visit. Social History Tobacco Use - Smoking status: Never Smoker - Smokeless tobacco: Never Used Vaping Use - Vaping Use: Never used Substance Use Topics - Alcohol use: Not on file - Drug use: Yes Types: Marijuana Comment: Patient uses edibles PRN 07/24/19 ALLERGIES Allergen Reactions - Keppra [Levetiracet* GI Upset - Neomycin-Bacitracnz* Rash - Codeine Other: See Comments makes me ill - Nickel Unknown Review of Systems: Cardiopulmonary: denies chest pain, palpitations Respiratory: denies shortness of breath GI/: denies recent nausea, vomiting, diarrhea, + constipation, incontinence, + urinary frequency (taking medication- myrbetriq) Musculoskeletal: denies weakness, joint ache/pain Back/spine: denies + low back (hx of lumbar sx) or cerv (more content not included)... Normal [facility] Lab Report: Lipid Profileon 03-15-2017 Cholesterol 136 mg/dL Invalid Interpretation Code 200 [facility] Work Phone: [phone] HDL Cholesterol 49 mg/dL Invalid Interpretation Code [employer] Phone: [phone] LDL Cholesterol 65 mg/dL Invalid Interpretation Code 0-130 [facility] ([employer] Work Phone: [phone] Triglyceride 108 mg/dL Invalid Interpretation Code [facility] Work Phone: [phone] very low density lipoproteins 22 mg/dL Invalid Interpretation Code 5-40 [facility] ([employer] Work Phone: [phone] Lab Report: Liver Profileon 03-15-2017 Alanine aminotransferase (ALT) 24 U/L Invalid Interpretation Code 12-78 [facility] ([employer] Work Phone: [phone] Albumin 3.5 g/dL Invalid Interpretation Code 3.4-5.0 [facility] ([employer] Work Phone: [phone] Alkaline phosphatase (ALP) 100 U/L Invalid Interpretation Code 45-117 [facility] ([employer] Work Phone: [phone] Aspartate aminotransferase (AST) 14 U/L Low 15-37 [facility] ([employer] Work Phone: [phone] Bilirubin (direct) 0.14 mg/dL Invalid Interpretation Code 0.00-0.30 [employer] Phone: [phone] Bilirubin (total) 0.60 mg/dL Invalid Interpretation Code 0.20-1.00 [employer] Phone: [phone] Globulin 3.4 g/dL Invalid Interpretation Code 2.2-4.2 [facility] ([employer] Work Phone: [phone] Protein 6.9 g/dL Invalid Interpretation Code 6.4-8.2 [facility] ([employer] Work Phone: [phone] Office Visiton 03-07-2017 Dietary management education, guidance, and counseling (procedure) yes Invalid Interpretation Code [facility] [facility] [employer] [facility] Work Phone: [phone] Documentation of current medications (procedure) Done Invalid Interpretation Code [facility] [employer] [facility] Work Phone: [phone] Fall risk assessment No Invalid Interpretation Code [facility] Work Phone: [phone] Protein mass conc Done Invalid Interpretation Code [facility] [employer] [facility] Work Phone: [phone] Tobacco smoking status NHIS Former smoker Invalid Interpretation Code [facility] Work Phone: [phone] Tobacco use CPHS Former smoker Invalid Interpretation Code [facility] [employer] [facility] Work Phone: [phone] Clinical Lists Update: 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 09-03-2016 Left ventricular Ejection fraction 60 % Invalid Interpretation Code [facility] Work Phone: [phone] Clinical Lists Update: 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 01-25-2016 Hemoglobin A1c/Hemoglobin.total mass fraction (Bld) 6.4 % Invalid Interpretation Code [facility] [employer] [facility] Work Phone: [phone] Thyrotropin Qn 3.64 u[iU]/mL Invalid Interpretation Code [facility] ([employer] Work Phone: [phone] Clinical Lists Update: 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 01-24-2016 Calcium mass conc 8.9 mg/dL Invalid Interpretation Code [facility] ([employer] Work Phone: [phone] Chloride molar conc 110 mmol/L Invalid Interpretation Code [facility] Work Phone: [phone] CO2 25.0 mmol/L Invalid Interpretation Code [facility] [employer] [facility] Work Phone: [phone] CO2 ppres (BldV) 25.0 mmol/L Invalid Interpretation Code [facility] Work Phone: [phone] Creatinine mass conc 0.74 mg/dL Invalid Interpretation Code [facility] Work Phone: [phone] Glucose mass conc 122 mg/dL Invalid Interpretation Code [facility] [employer] [facility] Work Phone: Hematocrit Auto Volume Fraction (Bld) 41.0 % Invalid Interpretation Code [facility] [employer] [facility] Work Phone: [phone] Hemoglobin mass conc (Bld) 14.4 g/dL Invalid Interpretation Code [facility] Work Phone: [phone] Platelets Auto #/vol (Bld) 236 10*3/mm3 Invalid Interpretation Code [facility] Work Phone: [phone] Potassium molar conc 3.7 mmol/L Invalid Interpretation Code [facility] Work Phone: [phone] Sodium molar conc 146 mmol/L Invalid Interpretation Code [facility] Work Phone: [phone] Urea nitrogen mass conc 11 mg/dL Invalid Interpretation Code [facility] Work Phone: [phone] Urea nitrogen/Creatinine mass ratio 14.9 mg/mg Invalid Interpretation Code [facility] Work Phone: [phone] WBC Auto #/vol (Bld) 9.3 10*3/uL Invalid Interpretation Code [facility] Work Phone: [phone] Replaced Document: Jake Alexis CG Observationson 08-06-2015 EKG QRS axis 17 deg Invalid Interpretation Code [facility] Work Phone: [phone] Interpretation Sinus Rhythm -First degree A-V block Isra = 230BORDERLINE RHYTHM Invalid Interpretation Code [facility] Work Phone: [phone] P [place] 49 deg Invalid Interpretation Code [facility] Work Phone: [phone] SC Interval 230 ms Invalid Interpretation Code [facility] Work Phone: [phone] Pulse (Heart Rate) 74 /min Invalid Interpretation Code [facility] Work Phone: [phone] QRS Duration 104 ms Invalid Interpretation Code [facility] Work Phone: [phone] QT Interval new path ms Invalid Interpretation Code [facility] Work Phone: [phone] QTc Ng 398 ms Invalid Interpretation Code [facility] Work Phone: [phone] T [place] 48 deg Invalid Interpretation Code [facility] Work Phone: [phone] Office Visiton 02-03-2015 General cardiovascular disease 10Y risk [#] [place].D'Agostin o 15 % Invalid Interpretation Code [facility] Work Phone: [phone] Clinical Lists Update: 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 11-05-2014 Anion gap 8 mmol/L Invalid Interpretation Code [facility] Work Phone: [phone] Anion gap 4 molar conc 8 Invalid Interpretation Code [facility] Work Phone: [phone] MCH Auto Entitic mass (RBC) 32.0 pg Invalid Interpretation Code [facility] Work Phone: [phone] MCV Auto Entitic volume (RBC) 102.2 fL High [facility] Work Phone: [phone] RBC Auto #/vol (Bld) 4.15 10*6/uL Low Valerie [facility] Work Phone: [phone] Office Visiton 07-25-2014 cardiac risk group C Invalid Interpretation Code [facility] Work Phone: [phone] Clinical Lists Update: 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 08-31-2013 Cholesterol in HDL mass conc 45 mg/dL Low [facility] Work Phone: [phone] Cholesterol in LDL mass conc 74 mg/dL Invalid Interpretation Code [facility] Work Phone: [phone] Cholesterol mass conc 144 mg/dL Invalid Interpretation Code [facility] Work Phone: [phone] Lipoprotein.pre-beta mass conc 25 mg/dL Invalid Interpretation Code [facility] Work Phone: [phone] Triglyceride mass conc 124 mg/dL Invalid Interpretation Code [facility] Work Phone: [phone] Vital Signs Date Time Vital Sign Value Performing Clinician Rachell connell 05-05-2022 08:30-0500 Body weight 83.14 kg Ephraim Tate Jr., MD Work Phone: [facility] 05-05-2022 08:30-0500 Diastolic blood pressure 63 mm[Hg] Ephraim Tate Jr., MD Work Phone: [facility] 05-05-2022 08:30-0500 Heart rate 78 /min Ephraim Tate Jr., MD Work Phone: [facility] 05-05-2022 08:30-0500 SaO2% (BldA) [Mass fraction] 95 % Ephraim Tate Jr., MD Work Phone: [facility] 05-05-2022 08:30-0500 Systolic blood pressure 134 mm[Hg] Ephraim Tate Jr., MD Work Phone: [facility] 01-21-2022 12:01-0400 Diastolic blood pressure 77 mm[Hg] Maribel Dahlhausen HYDRAULIC OIL TOOL OPERATOR.[employer] Work Phone: [facility] 01-21-2022 12:01-0400 Heart rate 79 /min Maribel Dahlhausen HYDRAULIC OIL TOOL OPERATOR.[employer] Work Phone: [facility] 01-21-2022 12:01-0400 Systolic blood pressure 128 mm[Hg] Maribel Dahlhausen HYDRAULIC OIL TOOL OPERATOR.[employer] Work Phone: [facility] 01-21-2022 11:21-0400 Body weight 87.54 kg Maribel Dahlhausen HYDRAULIC OIL TOOL OPERATOR.[employer] Work Phone: [facility] 01-21-2022 11:21-0400 Respiratory rate 14 /min Maribel Dahlhausen HYDRAULIC OIL TOOL OPERATOR.[employer] Work Phone: [facility] 01-21-2022 11:21-0400 SaO2% (BldA) [Mass fraction] 96 % Maribel Dahlhausen HYDRAULIC OIL TOOL OPERATOR.[employer] Work Phone: [facility] 09-17-2021 11:39-0400 Body temperature 97.3 [degF] Maribel Dahlhausen HYDRAULIC OIL TOOL OPERATOR.[employer] Work Phone: [facility] 09-17-2021 11:39-0400 Body weight 84.37 kg Maribel Dahlhausen HYDRAULIC OIL TOOL OPERATOR.[employer]VER Work Phone: [facility] 09-17-2021 11:39-0400 Diastolic blood pressure 78 mm[Hg] Maribel Dahlhausen HYDRAULIC OIL TOOL OPERATOR.[employer] Work Phone: [facility] 09-17-2021 11:39-0400 Heart rate 73 /min Maribel Dahlhausen HYDRAULIC OIL TOOL OPERATOR.[employer] Work Phone: [facility] 09-17-2021 11:39-0400 Respiratory rate 18 /min Maribelsonali Rose HYDRAULIC OIL TOOL OPERATOR.[employer] Work Phone: [facility] 09-17-2021 11:39-0400 SaO2% (BldA) [Mass fraction] 97 % Maribelsujey Rose HYDRAULIC OIL TOOL OPERATOR.SKIN [employer]VER Work Phone: [facility] 09-17-2021 11:39-0400 Systolic blood pressure 122 mm[Hg] Maribelsonali Rose HYDRAULIC OIL TOOL OPERATOR.SKIN CARVER Work Phone: [facility] 03-07-2017 13:52-0400 BMI (Body Mass Index) 30.7 kg/m2 [facility]in [facility] Work Phone: 03-07-2017 13:52-0400 BP Diastolic 60 mm[Hg] Dillantaltito [facility] Work Phone: 03-07-2017 13:52-0400 BP Systolic 110 mm[Hg] Dillantaltito [facility] Work Phone: 03-07-2017 13:52-0400 Height 171.45 cm Afshin [facility] Work Phone: 03-07-2017 13:52-0400 Pulse (Heart Rate) 84 /min [facility]shin [facility] Work Phone: 03-07-2017 13:52-0400 Respiratory Rate 16 /min Dillantaltito [facility] Work Phone: 03-07-2017 13:52-0400 Weight 90.27 kg Afshin [facility] Work Phone: 03-07-2017 13:52-0400 Weight 90.26 kg [facility] Work Phone: 03-08-2016 14:15-0400 BSA (Body Surface Area) 2.02 m2 Afshin [facility] Work Phone: 08-06-2015 14:49-0400 Heart rate 74 /min Afshin Liriano [facility] Work Phone: Encounters Encounter Date Encounter Type Care Provider Facility Start: 09-08-2022 Telephone encounter Nkechi Angulo RN [facility] Comment on above: [facility] - [facility] contact[facility]deferral) Start: 08-11-2022 Telephone encounter Alden Rudolph am, MD Work Phone: Neurology Comment on above: Outside Labs Results ([place]/Lamictal) Start: 08-05-2022 Telephone encounter Alden Rudolph am, MD Work Phone: Neurology Comment on above: Other (Call from Dejuan Cochran about Lamictal level being drawn) Start: 08-04-2022 Telephone encounter Ephraim Tate MD Work Phone: Neurology Comment on above: Patient Update Start: 07-30-2022 Telephone encounter Armand ocampo MD Work Phone: [facility] Comment on above: Patient Question Start: 07-29-2022 Telephone encounter Mary RICO [facility] Comment on above: Orders ([facility] order co ntact/SNF letter) Start: 07-24-2022 Telephone encounter Lizzy grewal HYDRAULIC OIL TOOL OPERATOR.SKIN CARVER Work Phone: [facility] Comment on above: Orders Start: 07-16-2022 End: 07-28-2022 Evaluation and management of inpatient LIBBY JIMENEZ Facility:[facility] Start: 06-20-2022 Refill Brittanie fowler HYDRAULIC OIL TOOL OPERATOR.SKIN CARVER Work Phone: Family Medicine Comment on above: Refill Request Start: 06-14-2022 Refill Brittanie fowler HYDRAULIC OIL TOOL OPERATOR.SKIN CARVER Work Phone: Family Medicine Comment on above: Refill Request Start: 06-09-2022 Telephone encounter Alden Rudolph am, MD Work Phone: Epilepsy Comment on above: Patient Update (Retu rning software quality automation engineer call) Request Outside Medi meredith Records ([facility]) Received Outside Med ical Records ([facility]) Start: 06-08-2022 Telephone encounter Alden Rudolph am, MD Work Phone: Epilepsy Comment on above: Returning Patient's Call; Patient Update Start: 05-31-2022 Telephone encounter Alden Rudolph am, MD Work Phone: Neurology Comment on above: Seizures (/) Start: 05-11-2022 Telephone encounter Alden Rudolph am, MD Work Phone: Neurology Comment on above: Medication Concern ( Rash) Start: 05-06-2022 Orders Only Brittanie fowler HYDRAULIC OIL TOOL OPERATOR.SKIN CARVER Work Phone: Neurology Comment on above: Cognitive changes (P rimary Dx); Syncope and collapse Convulsions, unspeci fied convulsion type (HCC) (Primary Dx) Start: 05-05-2022 End: 05-06-2022 Evaluation and management of inpatient [facility] Facility:[facility] Start: 05-05-2022 End: 05-05-2022 ambulatory [facility] Facility:[facility] Start: 05-05-2022 End: 05-05-2022 Patient encounter procedure Ephraim Tate MD Work Phone: Neurology Comment on above: Seizures (HCC) (Prim damari Dx); 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); Spinal stenosis of lumbar region, unspecified whether neurogenic claudication present; Memory problem Start: 03-31-2022 Refill Maribel bennett APRN.SKIN CARVER Work Phone: Neurology Comment on above: Refill Request Start: 01-22-2022 Telephone encounter Maribel Salas APRN.SKIN CARVER Work Phone: Neurology Comment on above: Results Start: 01-21-2022 End: 01-21-2022 ambulatory [facility] Facility:[facility] Start: 01-21-2022 End: 01-21-2022 Patient encounter procedure Maribel Rose APRN.SKIN CARVER Work Phone: Neurology Comment on above: Neuropathy due to ty pe 2 diabetes mellitus (HCC) (Primary Dx); Spinal stenosis of lumbar region, unspecified whether neurogenic claudication present; Memory problem Start: 12-25-2021 Refill Maribel Rubin usen HYDRAULIC OIL TOOL OPERATOR.SKIN CARVER Work Phone: Neurology Comment on above: Refill Request Start: 10-01-2021 Refill Maribel Rubin usen HYDRAULIC OIL TOOL OPERATOR.SKIN CARVER Work Phone: Neurology Comment on above: Refill Request Start: 09-17-2021 End: 09-17-2021 ambulatory MARIBEL ROSE Facility:[facility] Start: 09-17-2021 End: 09-17-2021 Patient encounter procedure Maribel Rose HYDRAULIC OIL TOOL OPERATOR.SKIN CARVER Work Phone: Neurology Comment on above: Neuropathy due to ty pe 2 diabetes mellitus (HCC) (Primary Dx); Spinal stenosis of lumbar region, unspecified whether neurogenic claudication present Start: 08-14-2021 Telephone encounter Beka yadav MD Work Phone: Pain Management Comment on above: Future Appointment Procedures Date Procedure Procedure Detail Performing Clinician Start: 07-18-2022 Antibody screen RAED AZ ÓSCAR Comment on above: Order Comment: Speci men Type: BLOOD SPECIMENOrdering Facility: [facility] Address: [address] [place], [place] [id number] Performed By: #### T SCR ####[facility] [id number] [place] [address] [place] Start: 07-18-2022 Electrocardiogram RAED AZZAM Start: 07-17-2022 Echocardiography RAED A ZZAM Start: 07-16-2022 Electrocardiogram RAED AZZAM Start: 03-14-2017 End: 03-15-2017 *Hepatic Function Panel Beka Payan MD Start: 03-14-2017 End: 03-15-2017 Lipid 1996 panel - Serum or Plasma Beka Payan MD Start: 03-07-2017 End: 03-07-2017 Follow Up Appt 6 months Beka Payan MD Start: 03-07-2017 End: 03-07-2017 MMM Beka Payan MD Start: 03-07-2017 End: 03-07-2017 Dietary management education, guidance, and counseling Afshin Liriano Start: 09-06-2016 End: 09-06-2016 Follow Up Appt Other Maribell romero PA-C Work Phone: Start: 03-08-2016 End: 03-08-2016 Follow Up Appt 6 months Beka Payan MD Start: 03-08-2016 End: 03-08-2016 MMM Beka Payan MD Start: 01-27-2016 End: 08-30-2016 Xtrnl mobile cv telemetry w/i&report 30 days Beka Payan MD Start: 08-06-2015 End: 08-06-2015 Follow Up Appt 6 months Maribell crocker PA-C Work Phone: Start: 08-06-2015 End: 08-06-2015 [facility] Maribell Arias PA-C Work Phone: Start: 02-03-2015 End: 02-04-2015 Documentation of current medications Beka Payan MD Start: 02-03-2015 End: 02-03-2015 Follow Up Appt 6 months Beka Payan MD Start: 02-03-2015 End: 02-03-2015 Follow Up Appt Other Beka Payan MD Start: 02-03-2015 End: 02-03-2015 MMM Beka Payan MD Start: 07-25-2014 End: 07-26-2014 Documentation of current medications Beka Payan MD Start: 07-25-2014 End: 07-25-2014 Ecg routine ecg w/least 12 lds w/i&r Beka Payan MD Start: 07-25-2014 End: 07-25-2014 Follow Up Appt 6 months Beka Payan MD Start: 07-25-2014 End: 07-25-2014 PFM Beka Payan MD Plan of Treatment Date Care Activity Detail Author Start: 01-16-2023 Hemoglobin A1c/Hemoglobin.total in Blood HBA1C [facility] Start: 09-07-2022 End: 08-23-2023 Radiologic exam chest 2 views XR CHEST 2V FRONTAL/LAT Radiology Routine Pleural effusion Expected: 09/07/2022, Expires: 08/23/2023 [facility] Work Phone: Comment on above: Expected: 09/07/2022 , Expires: 08/23/2023 Start: 05-16-2022 ADVANCE DIRECTIVE DISCUSSION ADVANCE DIRECTIVE DISCUSSION [facility] Start: 05-16-2022 DEPRESSION ASSESSMENT DEPRESSION ASS ESSMENT [facility] Start: 01-21-2022 End: 03-23-2022 Cobalamin (Vitamin B12) [Mass/volume] in Serum or Plasma [facility] Work Phone: Comment on above: Expected: 01/21/2022 , Expires: 03/23/2022 Start: 01-21-2022 End: 03-23-2022 Comprehensive metabolic 2000 panel - Serum or Plasma [facility] Work Phone: Comment on above: Expected: 01/21/2022 , Expires: 03/23/2022 Start: 01-21-2022 End: 03-23-2022 Folate [Mass/volume] in Serum or Plasma [facility] Work Phone: Comment on above: Expected: 01/21/2022 , Expires: 03/23/2022 Start: 01-21-2022 End: 03-23-2022 Thyrotropin [Units/volume] in Serum or Plasma [facility] Work Phone: Comment on above: Expected: 01/21/2022 , Expires: 03/23/2022 Start: 01-14-2022 Influenza vaccination INFLUENZA (#1) [facility] Start: 05-16-2021 ADVANCE DIRECTIVE DISCUSSION ADVANCE DIRECTIVE DISCUSSION [facility] Start: 05-16-2021 DEPRESSION ASSESSMENT DEPRESSION ASS ESSMENT [facility] Start: 11-30-2020 COVID-19 VACCINE (4 - Booster for Moderna series) COVID-19 VACCINE (4 - Booster for Moderna series) [facility] Start: 09-25-2020 COVID-19 VACCINE (4 - Booster for Moderna series) COVID-19 VACCINE (4 - Booster for Moderna series) [facility] Start: 03-15-2018 End: 03-16-2017 *Hepatic Function Panel *Hepatic Function Panel [facility] Work Phone: Start: 03-15-2018 Hepatitis B surface antibody level LDL CHOLESTEROL [facility] Start: 03-15-2018 End: 03-16-2017 Lipid panel [AGGREGATE] *Lipid Profile CC PCP [facility] Work Phone: Start: 09-06-2017 End: 09-06-2017 Appointment Appointment [facility] Work Phone: Start: 03-14-2017 End: 03-15-2017 *Hepatic Function Panel *Hepatic Function Panel [facility] Work Phone: Start: 03-14-2017 End: 03-15-2017 Lipid panel [AGGREGATE] *Lipid Profile CC PCP [facility] Work Phone: Start: 03-07-2017 End: 03-07-2017 Follow Up Appt 6 months Follow Up Appt 6 months [facility] Work Phone: Start: 03-07-2017 End: 03-07-2017 Follow Up Appt Other Follow Up Appt Other [facility] Work Phone: Start: 03-07-2017 End: 03-07-2017 MMM MMM [facility] Work Phone: Start: 09-06-2016 End: 09-06-2016 Follow Up Appt Other Follow Up Appt Other [facility] Work Phone: Start: 03-08-2016 End: 03-08-2016 Follow Up Appt 6 months Follow Up Appt 6 months [facility] Work Phone: Start: 03-08-2016 End: 03-08-2016 MMM MMM [facility] Work Phone: Start: 01-27-2016 End: 01-27-2016 Xtr mobile cv telemetry w/i&report 30 days 30 Day Holter Monitor [facility] Work Phone: Start: 08-06-2015 End: 08-06-2015 Follow Up Appt 6 months Follow Up Appt 6 months [facility] Work Phone: Start: 08-06-2015 End: 08-06-2015 PFM PFM [facility] Work Phone: Start: 02-03-2015 End: 02-03-2015 Follow Up Appt 6 months Follow Up Appt 6 months [facility] Work Phone: Start: 02-03-2015 End: 02-03-2015 Follow Up Appt Other Follow Up Appt Other [facility] Work Phone: Start: 02-03-2015 End: 02-03-2015 MMM MMM [facility] Work Phone: Start: 07-25-2014 End: 07-25-2014 Ecg routine ecg w/least 12 lds w/i&r EKG (In office) [facility] Work Phone: Start: 07-25-2014 End: 07-25-2014 Follow Up Appt 6 months Follow Up Appt 6 months [facility] Work Phone: Start: 07-25-2014 End: 07-25-2014 PFM PFM [facility] Work Phone: Start: 10-11-2003 BONE DENSITY BONE DENSITY [facility] Start: 1957 Urine microalbumin profile DTAP,TDAP,TD (1 - Tdap) [facility] Start: 1956 Hepatitis B surface antibody level LDL CHOLESTEROL [facility] Start: 1948 3 comp foot exam completed DIABETIC FOOT EXAM [facility] Start: 1948 Hepatitis B screening URINE ALBUMIN:CREATININE RATIO [facility] Start: 1948 Hepatitis C antibody , confirmatory test DILATED RETINAL EXAM [facility] Start: 10-11-1943 Hemoglobin A1c/Hemoglobin.total in Blood HBA1C [facility] End: 06-05-2023 Mri brain brain stem w/o contrast material MRI BRAIN WO IVCON Radiology Routine Convulsions, unspecified convulsion type (HCC) 1 Occurrences starting 05/06/2022 until 06/05/2023 [facility] Work Phone: Comment on above: 1 Occurrences starti ng 05/06/2022 until 06/05/2023 OUTSIDE VENDOR CARDI AC OUTPATIENT EVENT RECORDER OUTSIDE VENDOR CARDIAC OUTPATIENT EVENT RECORDER Holter Routine Syncope and collapse Ordered: 05/06/2022 [facility] Work Phone: Comment on above: Ordered: 05/06/2022 [facility] Immunizations Immunization Date Immunization Notes Care Provider Fa [facility] 02-17-2021 pneumococcal polysaccharide vaccine, 23 valent Beka Fermin MD Work Phone: [facility] 02-02-2021 influenza, seasonal, injectable, preservative free Beka Fermin MD Work Phone: [facility] 07-31-2020 COVID-19 vaccine, fu ll dose (MODERNA) Beka Fermin MD Work Phone: [facility] 07-10-2020 COVID-19 vaccine, fu ll dose (MODERNA) Beka Fermin MD Work Phone: [facility] 06-12-2020 COVID-19 vaccine, fu ll dose (MODERNA) Beka Fermin MD Work Phone: [facility] 02-13-2020 zoster vaccine recombinant Beka Fermin MD Work Phone: [facility] 02-01-2020 influenza, injectabl e, quadrivalent, preservative free Beka Fermin MD Work Phone: [facility] 01-17-2020 influenza, high dose seasonal, preservative-free Beka Fermin MD Work Phone: [facility] 11-06-2019 pneumococcal conjuga te vaccine, 13 valent Beka Fermin MD Work Phone: [facility] 11-06-2019 zoster vaccine recombinant Beka Fermin MD Work Phone: [facility] 02-13-2019 influenza, injectabl e, quadrivalent, preservative free Beka Fermin MD Work Phone: [facility] 02-28-2018 influenza, seasonal, injectable Beka Fermin MD Work Phone: [facility] 03-22-2017 pneumococcal conjuga te vaccine, 13 valent Beka Fermin MD Work Phone: [facility] 02-24-2017 influenza, seasonal, injectable Beka Fermin MD Work Phone: [facility] 02-13-2015 influenza, seasonal, injectable, preservative free Beka Fermin MD Work Phone: [facility] 08-30-2014 pneumococcal polysaccharide vaccine, 23 valent Beka Fermin MD Work Phone: [facility] Payers Date Payer Category Payer Unknown [employer] [id number] 2015-Present [phone] [address] [place] [address] Indemnity [id number] 2015 Unknown [employer] [id number] 2015-Present [phone] [address] [place] [address] Indemnity [id number] 2015 Unknown [id number] 2003 Medicare MEDICARE MEDICAR E A AND B [id number] 2003-Present [phone] [address] [address] [place] [address] Medicare [id number] 2003 Medicare MEDICARE MEDICAR E A AND B [id number] 2003-Present [phone] [place] [address] Medicare [id number] 2003 Medicare [id number] Social History Date Type Detail Facility Start: 07-29-2015 End: 05-05-2022 Tobacco smoking status NHIS Never smoked tobacco [facility] Start: 07-29-2015 End: 05-05-2022 Tobacco use and exposure Smokeless tobacco non-user [facility] Start: 06-15-2021 End: 07-19-2022 Alcohol intake Not Asked [facility] Start: 1940 Sex Assigned At Not on file [facility] Start: 07-24-2021 End: 09-17-2021 Exposure to SARS-CoV-2 (event) Not sure [facility] Start: 05-06-2022 History SDOH Financial 4 [facility] Start: 05-06-2022 History SDOH Food Worry 1 [facility] Start: 05-06-2022 History SDOH Transpo rt Med 2 [facility] Clinical Notes 08-14-2021 to 09-08-2022 Telephone Encounter - Nkechi Angulo RN - 09/08/2022 4:13 PM EDTTelephone Encounter - Hardy Oneal RN - 08/11/2022 12:49 PM EDTTelephone Encounter - Hardy Oneal RN - 08/11/2022 8:55 AM EDT Note Date & Type Note Facility 09-08-2022 Miscellaneous Notes The [facility] has reached out to the patient with no response. Therefore, this is considered a deferral of [facility] services at this time. documented in this encounter [facility] 08-11-2022 Miscellaneous Notes Spoke with Lia Ann CNP at the rehab facility. Reviewed recommendations below. 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 She reports they are not allowed to video tape any of the patients due to HIPAA. She will put on patients discharge orders that she is to schedule an office visit with Dr. Hughes. Provided office phone to report any other activity. Hardy Oneal RN If the shaking was atypical would not increase dose as likely is PNES If the episode was concerning an epileptic sz nwould increase dose to 125 mg BID by 25 mg per week Would be helpful for a staff/family member to video a sz if they continue to occur Brittanie Lugo APRN.RADHIKA Images from the original note were not included. Lab drawn at facility Current dose: LTG 100mg BID ROMULO from facility asking to increase dose She reports seizure 08/04. Looks like reported to Neurological practice and Dr. Hughes ordered LTG level. She reports patient was in hospital for long time with multiple health problems. Please advise Hardy Oneal RN OUTSIDE LAB REPORT FACILITY NAME [facility] PHONE/FAX [phone] COLLECTION DATE AND TIME: 08/05/22 0525 Uploaded to [employer] documented in this encounter [facility] 08-06-2022 Miscellaneous Notes Noted Hardy Oneal RN General call : Full name of person calling: Karol Ann CNP Relationship to patient: [facility] Phone # : [phone] Reason for call: Per request of Hardy [place], RN, Lamictal level was drawn today. Results are expected in 3 - 5 days. Fax number was given. Patient of Dr. Hughes documented in this encounter [facility] 08-04-2022 Miscellaneous Notes I spoke with Lia. We discussed patient having LTG level drawn tomorrow a.m. Reviewed trough level instructions. She will call office with results. Hardy Oneal RN Called and spoke with Lia Ann CNP at [place]. This is what happened: Pt had not been feeling well this morning, had diarrhea. Had headache around 10 am. Nurse gave her tylenol. Nurse aid went in and saw her shaking, had seizure for 10-15 minutes. Was alert and able to say 'seizure'. Vital signs normal, pulse was up. Okay now. PCP Lia Ann states pt is on low dose of Lamictal, wants to know if they should we increase dose? Or add Depakote? Is going to get blood work tomorrow morning. You can call Lia ross at [phone]- cell phone. I am going to call [facility] for information to give to you for a better assessment. Coco Saha LPN [facility] calling to notify office that pt had a seizure. 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 Anca Ann NP [phone] documented in this encounter [facility] 07-30-2022 Miscellaneous Notes Called Anca ross and let her know that [facility] saw patient in hospital for pericardial effusion and subsequent pericardial window. We did not order the lovenox 40 mg sub q daily that was on her DC list. We were on consultation. Anca will reach out to her medical technologist chemistry to further review. Tri Beltran APRN.RADHIKA CROW March @ [facility] called & left voice message asking for the end date for the Lovenox injections for Isabelle. Anca would like a call back @ [phone]. Catalina Hebert LPN documented in this encounter [facility] 07-29-2022 Miscellaneous Notes Patient was discharged from [facility] 07-28-22 with an order to schedule with the [facility]. However, the patient was then immediately admitted to a half-way facility. A letter was mailed to the patient asking them to contact the Clinic upon discharge from the facility. documented in this encounter [facility] 07-28-2022 Note HNO ID: [id number] Author: Keri Petit RN Service: Nursing Author Type: Registered Nurse Type: Nursing Progress Note Filed: 07/28/2022 12:37 PM Note Text: Report called to SHANTE Burns at [facility] for 1300 DC. [facility] 07-28-2022 Note [facility] 07-27-2022 Note [facility] [place] 07-27-2022 Note [facility] [place] 07-26-2022 Note [facility] [place] 07-25-2022 Note [facility] [place] 07-25-2022 Note HNO ID: [id number] Author: Interface Note Service: ? Author Type: ? Type: Progress Notes Filed: 07/25/2022 3:06 AM Note Text: Epic Scheduled Downtime: 07/25/2022 12:30:16 AM to 07/25/2022 1:50:00 AM [facility] 07-24-2022 Note [facility] 07-24-2022 Miscellaneous Notes JV, Please sign the orders for Isabelle Medrano (f/u CXR in 6 weeks) The patient will also need a follow up with our office afterwards. Thank you! Lizzy Henry APRN.CNP July 24, 2022 11:10 AM documented in this encounter [facility] 07-24-2022 Note [facility] 07-24-2022 Note HNO ID: [id number] Author: Interface Note Service: ? Author Type: ? Type: Progress Notes Filed: 07/24/2022 4:22 AM Note Text: Epic Scheduled Downtime: 07/24/2022 12:00:37 AM to 07/24/2022 4:09:02 AM [facility] 07-23-2022 Note [facility] 07-23-2022 Note [facility] 07-23-2022 Note [facility] 07-22-2022 Note [facility] 07[facility]22-2022 Note [facility] 07-22-2022 Note [facility] 07-21-2022 Note [facility] 07-21-2022 Note [facility] 07-21-2022 Note [facility] 07[facility]20-2022 Note [facility] 07-20-2022 Note [facility] 07-20-2022 Note [facility] 07-19-2022 Note [facility] 07-19-2022 Note [facility] 07-19-2022 Note [facility] 07-19-2022 Note [facility] 07-19-2022 Note [facility] 07-18-2022 Note [facility] 07-18-2022 Note [facility] 07-18-2022 Note [facility] 07-17-2022 Note [facility] 07-16-2022 History of Past i llness Narrative Problem Noted Date Resolved Date Pericardial effusion 07/16/2022 07/28/2022 documented as of this encounter (statuses as of 07/29/2022) [facility] History of Past illness Narrative* Problem Noted Date Resolved Date Pericardial effusion 07/16/2022 07/28/2022 documented as of this encounter (statuses as of 07/30/2022) [facility] History of Past illness Narrative* Problem Noted Date Resolved Date Pericardial effusion 07/16/2022 07/28/2022 documented as of this encounter (statuses as of 08/04/2022) [facility] History of Past illness Narrative* Problem Noted Date Resolved Date Pericardial effusion 07/16/2022 07/28/2022 documented as of this encounter (statuses as of 08/06/2022) [facility] History of Past illness Narrative* Problem Noted Date Resolved Date Pericardial effusion 07/16/2022 07/28/2022 documented as of this encounter (statuses as of 08/11/2022) [facility] History of Past illness Narrative* Problem Noted Date Resolved Date Pericardial effusion 07/16/2022 07/28/2022 documented as of this encounter (statuses as of 09/09/2022) [facility]-06-2023 Miscellaneous Notes* Telephone Encounter - Nahomy Dutta APRN.CNP - 06/21/2022 9:53 AM EST The following approved medication requests have been transmitted electronically. Requested Prescriptions Refused Prescriptions Disp Refills lamoTRIgine (LAMICTAL) 25 mg tablet [Pharmacy Med Name: LAMOTRIGINE 25 MG TABLET] 196 tablet 0 Sig: take 1 tablet by mouth every evening for 1 week then // 1 TAB IN THE MORNING AND 1 IN THE EVENING FOR 1 WEEK // 1 TAB IN THE MORNING AND 2 TABS IN THE EVENING FOR 1 WEEK // 2 TABS IN THE MORNINGAND 2 IN THE EVENING FOR 1 WEEK // 2 TABS IN THE MORNING AND 3 TABS IN THE EVENING FOR 1 WEEK // 3 TABS IN THE MORNING AND EVENING FOR 1 WEEK // 3 TABS IN THE MORNING AND 4 TABS IN THE EVENING FOR 1 WEEK // ON WEEK 8, SWITCH TO 100MG TABS Refused By: NAHOMY DUTTA Reason for Refusal: A Refill not appropriate Nahomy Dutta APRN.RADHIKA [facility] Miscellaneous Notes* Telephone Encounter - Brittanie Lugo APRN.RADHIKA - 06/15/2022 9:03 AM EST The following approved medication requests have been transmitted electronically. Requested Prescriptions Signed Prescriptions Disp Refills lamoTRIgine (LAMICTAL) 100 mg tablet 180 tablet 1 Sig: Take 1 tablet by mouth once daily. Authorizing Provider: BRITTANIE LUGO APRN.CNP * Telephone Encounter - Meghan Avila - 06/14/2022 11:56 AM EST Patient has been identified by name and date of : Yes Last office visit in this department: Visit date not found RX INSTRUCTIONS: Patient requesting a call when RX is approved and sent to the pharmacy. Please call patient at: [phone]. Pt said she will run out once she starts taking 8 of the 25mg tablets everyday. Patient phones requesting refills as follows: Requested Prescriptions Pending Prescriptions Disp Refills lamoTRIgine (LAMICTAL) 100 mg tablet 180 tablet 1 Sig: Take 1 tablet by mouth once daily. Please review and advise. Meghan Avila documented in this encounterGalion [facility] Hospital01-25-2023 Miscellaneous Notes* Telephone Encounter - Lorena Murray - 06/09/2022 4:35 PM EST Records received; ED summary; Uploaded to [facility] documented in this encounterGalion Community Hospital01-25-2023 Miscellaneous Notes* Telephone Encounter - Lorena Murray - 06/09/2022 11:16 AM EST Images from the original note were not included. documented in this encounterGalion Community Hospital01-25-2023 Miscellaneous Notes* Telephone Encounter - Alden Hughes MD - 06/09/2022 10:16 AM ESTSummary: Phone call with Dr. Payan I was able to reach Dr. Payan, the patient's software quality automation engineer, today. He gave me a summary of the patient's cardiac history. His main question to me was concerning safety of anticoagulation with respect to her seizures and epilepsy. She has paroxysmal atrial fibrillation. He reported that she was in the ED on 06/01, one day prior to her cath, for a seizure . She was discharged home. I discussed the following: - I need an Mri brain to assess if she had any strokes given recent falls and reported weakness. This is scheduled tomorrow. - I will need to see her following the MRI brain for an examination and to assess the need for a repeat full EMU evaluation since the last evaluation was cut short by the patient leaving home. She has a follow up with me on 06/16. - I provided the software quality automation engineer with my mobile phone for any further concerns. - He reported that there is no immediate harm (3% risk of thromboembolic events) in waiting to get the evaluation of seizures and falls before anticoagulation to ensure safety. - I will obtain records from [facility] of ED visits. documented in this encounterGalion Community Hospital01-24-2023 Miscellaneous Notes* Telephone Encounter - Alden Hughes MD - 06/08/2022 10:49 AM EST I was notified that the patient's software quality automation engineer, Dr. Beka Payan, was trying to reach me. I called his office ([phone]) and mobile phone ([phone]) and left him a message to call me back. In the meantime I called the patient and spoke to her and her . I also obtained permission to speak to her [id number], Anca, but I could not reach her on her phone due to going to voicemail. The patient reported the following history: - Since 05/06 EMU admission, she did well until after the cath on 06/02, she reports feeling weak all over her body. She is using a cane and walker to ambulate. She denied any weakness or numbness on one side of her body. She denied any symptoms of stroke. She has fallen twice, the last fall being ye night. EMS were called but did not take her to the hospital because she did not want to go. - She also reports nausea and loss of appetite - She reports generalized fine tremor in arms and body - She has back pain since needing to recline on a steel bed on 06/02 for two hours for the procedure The reported the following: - He believes the episodes of weakness are not strictly after the procedure and reports intermittent weakness. He said that two days ago she was walking without assistance and now it is worse again. Recommendations: - Continue LTG titration to 100 mg BID. She is currently on week 5 of the schedule. She will go to week 6 on . No rash as previously reported in chart. - She is off the pregabalin for unclear reasons. Will continue to hold for now. - Continue clonazepam 0.5 mg Qhs for remainder of the titration of LTG as a bridge until therapeutic on LTG. - She is scheduled for brain MRI on 06/10 - She will then see me in the office on 06/16 - confirmed the above appointments - A 30-day heart monitor was ordered on discharge from EMU which will follow up on 06/16 appointment documented in this encounterGalion Community Hospital01-17-2023 Miscellaneous Notes* Telephone Encounter - Brittanie Lugo APRN.SKIN CARVER - 06/01/2022 4:34 PM EST Unclear if epileptic or non-epileptic Would continue LTG titration to 100 mg QHS & KLP Recent episode of shaking captured in the EMU was non epileptic If she continues to have concern for seizures would recommend they consult neurology inpatient. Brittanie Lugo APRN.RADHIKA * Telephone Encounter - Hardy Oneal RN - 06/01/2022 12:44 PM EST Spoke with patients spouse. He reports violent seizure 05/28/22, when asked what he meant by that, he reports full body shaking no tongue bite, no loss of urine. He described patient having tremors even after seizure. Yesterday, she did this again and he called 911. She was taken to [facility]. She was in Afib with high heart rate. She is scheduled for Cardiac cath 06/02. They did not address seizure. Current meds LTG 25mg, starting tomorrow 50/75 That will be start of week 5. PGB, he denied patient being on KLP 0.5mg hs Hardy Oneal RN * Telephone Encounter - Lorena Murray - 06/01/2022 12:01 PM EST Pt spouse, Kit calling; would like call back; [phone]. * Telephone Encounter - Lorena Murray - 05/31/2022 11:43 AM EST Seizure activity: Name of Caller : Lia Patel for pt Relationship to patient: [id number] Contact phone number: [phone] pt contact Date of seizure: 05/28/22 Duration: 5 min Back to Baseline (Yes/No): no; having tremors, shaking Emergency treatment needed (Yes/No): no Patient of Dr. Hughes documented in this encounterGalion Community Hospital12-27-2022 Miscellaneous Notes* Telephone Encounter - Hardy Oneal RN - 05/11/2022 11:08 AM EST Spoke with patients , provided recommendation below. He verbalizes understanding and will call office with the outcome. Hardy Oneal RN * Telephone Encounter - Pina Alcaraz PA-C - 05/11/2022 9:57 AM EST I would recommend going to an urgent care to have the rash looked at because given the location in the groin, it could be irritation from something else and not a drug rash. It is very important to see the rash in person to determine. If the provider at urgent care thinks it is a drug rash, we would recommend to STOP the lamotrigineand we will discuss another option. Pina Alcaraz PA-C * Telephone Encounter - Hardy Oneal RN - 05/11/2022 9:20 AM EST Spoke with patients , he reports rash in patients right groin. Red and itching. She started LTG 05/07. Week 1 25mg once a day (pm) Please advise Hardy Oneal RN * Telephone Encounter - Lorena Murray - 05/11/2022 9:03 AM EST Medication Concern Person Calling Kit Medrano Name of medication unsure Concern with medication RASH around groin Patient of Dr. Hughes (hosp d/c) documented in this encounterGalion Community Hospital12-22-2022 [facility]12-21-2022 NoteHNO ID: [id number] Author: Ephraim Tate Jr., MD Service: ? 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 Currently taking Lyrica 75mg TID as well as Cymbalta 30mg daily. Previously discussed starting alpha lipoic acid 600mg daily as well, however, she has not yet started supplement at this time. Exam with minimal progression in symptoms since time of previous appointment. Discussed options today including increasing Lyrica, increasing Cymbalta, or starting alternative medication. At this time she would like to try alternative medication. Will begin Trileptal 150mg BID. If symptoms improve and no SE from Trileptal will begin to titrate down Lyrica and discontinue. She may being alpha lipoic acid as well. Continue Cymbalta as previously prescribed and continue to follow with PCP for BG management. M48.061 Spinal stenosis of lumbar region, unspecified whether neurogenic claudication present Comment: Previous lumbar MRI noting moderate canal stenosis and consult placed to spine medicine. She has not yet scheduled appointment though notes that she no longer has lumbar symptoms and no symptoms radiating into her legs. Encouraged to schedule consult if pain and/or weakness returns or worsens. R41.3 Memory problem Comment: Patient reporting new memory concerns that began roughly five weeks ago. MOCA completed in office with score of 25/29 with almost all points lost on short term recall. No other significant new concerns reported and no new exam findings noted. At this time will complete blood work as noted below to rule out underlying cause of memory concerns such as metabolic abnormality or vitamin deficiency. Will await results and repeat cognitive testing at time of follow up appointment. If concern remain or exam findings change, may consider further testing. Patient now presenting for new complaint of seizure. Note pt left room at 9AM (time of appointment) to indicate to staff that they need to leave by 930AM. I have no records from [facility] where pt was evaluated for seizure. Just a AVR provided to pt stating they were seen for anxiety and tremor. Pt states had a seizure after not having one in many many years. Then states last night had a partial seizure per pt in which she felt the brain felt like fog coming down over it. States just finished supper. Pt has never told me of a seizure disorder. States they started in high school and was placed on PHT and for many years never had a problem until about 14 days ago. During that episode, patient reportedly passed out, started convulsing, and lasted about 5 minutes. Patient states last thing she remembers is her coming to her chair and asking her what happened. No tongue biting. No loss of bladder control. states entire body shaking and very violent. When shaking stopped, patient was immediately back to baseline. Then went to bed and started shaking again and lasted about a minute. Then fell back to sleep again and started to shake again and pt recall shaking. Then about 4PM started shaking again and taken to ER. In the ER at [facility] per family had ECG and CT brain and labs and all normal. No EEG. Patient reports 2 episodes in the past week both of which occurred upon going to bed. There is inconsistent history of how many episodes of possible seizures occurred over the past 2 weeks. Family is reporting more than 4 days of seizures in past 2 weeks. Then state 2 episodes yesterday of shaking with impaired consciousness. At this time very difficult to get an exact count of number of episodes over past 2 weeks. Per my count of events discussed during visit, possibly 15 in past 2 weeks. Only medication started by ER was Lorazepam. Note pt taking Tramadol which could lower seizure threshold. Pt states upset about diagnosis of Alzheimer's disease made at last neuro appointment but this is not in the notes of Mundo Rose CNP. Appears trileptal started by Mundo Rose CNP last visit was cancelled by PCP and never took this med. Patient is scheduled for angiogram in 2 days. Patient states limited memory over the past 2 weeks. states over last couple months significant deterioration in short term memory. REVIEW OF SYSTEMS GENERAL:No weight loss, malaise or fevers. 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 Currently taking Lyrica 75mg TID as well as Cymbalta 30mg daily. Previously discussed starting alpha lipoicacid 600mg daily as well, however, she has not yet started supplement at this time. Exam with minimal progression in symptoms since time of previous appointment. Discussed options today including increasing Lyrica, increasing Cymbalta, or starting alternative medication. At this time she would liketo try alternative medication. Will begin Trileptal 150mg BID. If symptoms improve and no SE from Trileptal will begin to titrate down Lyrica and discontinue. She may being alpha lipoic acid as well.Continue Cymbalta as previously prescribed and continue to follow with PCP for BG management. M48.061 Spinal stenosis of lumbar region, unspecified whether neurogenic claudication present Comment: Previous lumbar MRI noting moderate canal stenosis and consult placed to spine medicine. She has not yet scheduled appointment though notes that she no longer has lumbar symptoms and no symptoms radiating into her legs. Encouraged to schedule consult if pain and/or weakness returns or worsens. R41.3 Memory problem Comment: Patient reporting new memory concerns that began roughly five weeks ago. MOCA completed inoffice with score of 25/29 with almost all points lost on short term recall. No other significant new concerns reported and no new exam findings noted. At this time will complete blood work as noted below to rule out underlying cause of memory concerns such as metabolic abnormality or vitamin deficiency. Will await results and repeat cognitive testing at time of follow up appointment. If concern remain or exam findings change, may consider further testing. Patient now presenting for new complaint of seizure. Note pt left room at 9AM (time of appointment) to indicate to staff that they need to leave by 930AM. I have no records from [facility] where pt was evaluated for seizure. Just a AVR provided to pt stating they were seen for anxiety and tremor. Pt states had a seizure after not having one in many many years. Then states last night had a partial seizure per pt in which she felt the brain felt like fog coming down over it. States just finished supper. Pt has never told me of a seizure disorder. States they started in high school and was placed on PHT and for many years never had a problem until about 14 days ago. During that episode, patient reportedly passed out, started convulsing, and lasted about 5 minutes. Patient states last thing she remembers is her coming to her chair and asking her what happened. No tongue biting. No loss of b ladder control. states entire body shaking and very violent. When shaking stopped, patient was immediately back to baseline. Then went to bed and started shaking again and lasted about a minute. Then fell back to sleep again and started to shake again and pt recall shaking. Then about 4PM started shaking again and taken to ER. In the ER at [facility] per family had ECG and CT brain and labs and all normal. No EEG. Patient reports 2 episodes in the past week both of which occurred upon going to bed. There is inconsistent history of how many episodes of possible seizures occurred over the past 2 weeks. Family is reporting more than 4 days of seizures in past 2 weeks. Then state 2 episodes yesterday of shaking with impaired consciousness. At this time very difficult to get an exact count of number of episodes over past 2 weeks. Per my count of events discussed during visit, possibly 15 in past 2 weeks. Only medication started by ER was Lorazepam. Note pt taking Tramadol which could lower seizure threshold. Pt states upset about diagnosis of Alzheimer's disease made at last neuro appointment but this is not in the notes of Mundo Rose CNP. Appears trileptal started by Mundo Rose CNP last visit was cancelled by PCP and never took this med. Patient is scheduled for angiogram in 2 days. Patient states limited memory over the past 2 weeks. states over last couple months significant deterioration in short term memory. REVIEW OF SYSTEMS GENERAL:No weight loss, malaise or fevers. HEENT:Negative for frequent or significant headaches, No changes in hearing or vision, no nose bleeds or other nasal problems NECK:Negative for lumps, goiter, pain and significant neck swelling RESPIRATORY: Negative for cough, wheezing or shortness of breath. CARDIOVASCULAR: Negative for chest pain, or palpitations. GASTROINTESTINAL: Negative for abdominal discomfort, blood in stools or black stools or change in bowel habits GENITOURINARY: No history of dysuria, frequency or incontinence MUSCULOSKELETAL: Negative for joint pain or swelling, back pain or muscle pain. NEUROLOGIC:Negative for focal numbness or weakness, headaches and dizziness or syncope, vision changes, speech/languag changes - EXCEPT that as per HPI above. SKIN:Negative for lesions, rash, and itching. HEMATOLOGIC/LYMPHATIC/IMMUNOLOGIC:Negative for prolonged bleeding, bruising easily or swollen nodes. ENDOCRINE: Negative for cold or heat intolerance, polyuria, polydipsia and goiter. The remainder of the ROS was reviewed and is negative. LAB/IMAGING: Those performed since patient's last visit have been reviewed. Glucose (mg/dL) Date Value 01/21/2022 112 (H) BUN (mg/dL) Date Value 01/21/2022 19 Creatinine (mg/dL) Date Value 01/21/2022 0.69 Sodium (mmol/L) Date Value 01/21/2022 142 Potassium (mmol/L) Date Value 01/21/2022 4.4 Chloride (mmol/L) Date Value 01/21/2022 107 (H) CO2 (mmol/L) Date Value 01/21/2022 24 Protein, Total (g/dL) Date Value 01/21/2022 6.6 Albumin (g/dL) Date Value 01/21/2022 4.5 Calcium, Total (mg/dL) Date Value 01/21/2022 9.3 Alkaline Phosphatase (U/L) Date Value 01/21/2022 144 (H) Bilirubin, Total (mg/dL) Date Value 01/21/2022 0.5 AST (U/L) Date Value 01/21/2022 18 ALT (U/L) Date Value 01/21/2022 15 MEDICATIONS: LORazepam (ATIVAN) 0.5 mg Take by mouth three times daily as needed. DULoxetine (CYMBALTA) 30 mg capsule take 1 capsule by mouth once daily OXcarbazepine (TRILEPTAL) 150 mg tablet Take 1 tablet by mouth twice daily. pregabalin (LYRICA) 75 mg capsule Take 1 capsule by mouth three times daily for 90 days. alpha lipoic acid 600 mg tab Take 600 mg by mouth once daily. oxybutynin ER (DITROPAN XL) 10 mg 24 hr tablet Take 1 tablet by mouth once daily. aspirin 325 mg tablet Take 325 mg by mouth once daily. (Patient not taking: Reported on 09/17/2021 ) traMADol (ULTRAM) 50 mg tablet Take 50 mg by mouth twice daily as needed. Ascorbic Acid 1,000 mg TbER Ascorbic Acid VITAMIN C CR CR-TABS One tablet by mouth daily ASCORBIC ACID CR-TABS Maribell Arias PA-C 09-06-2016 [facility] ([id number]) cyanocobalamin (VITAMIN B-12) 1,000 mcg tab Vitamin B 12 VITAMIN B-12 1000 MCG TABS One tablet by mouth daily CYANOCOBALAMIN [id number] Coleen Erwin RN 07-23-2014 [facility] ([id number]) ketoconazole (NIZORAL) 2 % cream metFORMIN (GLUCOPHAGE) 500 mg tablet lisinopril (ZESTRIL, PRINIVIL) 20 mg tablet Take 20 mg by mouth once daily. cholecalciferol (VITAMIN D3) 1,000 unit tab tablet Take 1,000 Units by mouth as needed. B Complex Vitamins capsule Take 1 capsule by mouth once daily. (Patient not taking: Reported on 06/11/2021 ) BIOTIN ORAL Take by mouth. SOCIAL HISTORY Social History Tobacco Use Smoking status: Never Smokeless tobacco: Never Vaping Use Vaping Use: Never used Substance Use Topics Drug use: Yes Types: Marijuana Comment: Patient uses edibles PRN 07/24/19 PHYSICAL EXAMINATION BP 134/63 Pulse 78 Wt 83.1 kg (183 lb 4.8 oz) SpO2 95% BMI 29.59 kg/m GENERAL EXAM: General appearance: NAD, pleasant. HEENT: NC/AT, nasal congestion absent, no oral lesions, membranes moist. NECK: ROM nml. Lungs: CTA bilaterally. CV: RRR nl S1, S2. No Skin: Cool to touch. NEUROLOGICAL EXAM: General: Awake, alert, oriented x3 (person,place,time), speech fluent, no dysarthria; comprehension, naming, repetition intact. CN: PERRL, fundi with no evidence of papilledema, EOMI and without nystagmus, VFF to confrontation,facial sensation and strength are normal and symmetric, hearing is intact to finger rub bilaterally, palate and tongue movements are intact and symmetric. SCM and trapezius strength normal. Motor: Normal tone, bulk and strength (5/5) bilaterally (throughout extremities x4). Reflexes: 1/4 and symmetric, plantar stimulation is flexor. Coordination: FNF, MARYBEL, HTS intact. No tremors. Sensation: Light touch intact throughout. No evidence of neglect. Gait: Stable. Assessment and Plan: ASSESSMENT/PLAN: 1. Seizures (HCC) - ICD9: 780.39, ICD10: R56.9 (primary diagnosis) Patient with events as above, that have been frequent over the past 2 weeks and of unknown etiology. Last events occurred yesterday (x2). Per available paperwork from [facility] ER, they reported as panic attack. Description of events are limited. Pt reporting an impairment of consciousness. No tongue biting or bladder incontinence. Pt today reporting history of seizures in childhood for which she was on PHT. Again, I had advised pt to seek hospitalization for symptoms 2 weeks ago. I still feel hospital workup appropriate given frequency of events including at least 2 in past [address]. [address] Hughes of epilepsy and rather than direct admit, is recommending evaluation in ER with then possible admission to the EMU at [facility]. Patient and her family have been made aware and request to transport patient to the ER. I discussed with ER staff at [facility] and they are aware of patient's presentation later this AM. I am not changing meds at this time. Seizure precautions d/w pt and family. At this time, I am uncertain that these are true seizures vs PNES. Again, feel further vEEG monitoring would be beneficial to clarify dx with patient having episodes regularly including later reported dailyspells of shaking and decreased responsiveness in her chair. Note pt on Tramadol and Cymbalta that could lower sz threshold. Previously Rx'd Lyrica and Trileptal (not sure if actually took this med) for neuropathy. 2. 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 3. Spinal stenosis of lumbar region, unspecified whether neurogenic claudication present - ICD9: 724.02, ICD10: M48.061 Not discussed today. 4. Memory problem - ICD9: 780.93, ICD10: R41.3 Patient fixated on dx of Alzheimer's. However, there is no record of this specific dx in the chart upon review. MOCA was 25 last visit per notes. Explained a dx of Alzheimer's cannot be confirmed in such a manner and further cognitive workup would be needed and as ordered by Mundo Rose CNP. Will need further follow up regarding this symptoms. Ephraim Tate MD I spent a total of 65 minutes on the date of the service which included preparing to see the patient, [id number] patient care, completing clinical documentation, obtaining and/or reviewing separately obtained history, performing a medically appropriate examination, counseling and educating the pat ient/family/caregiver, communicating with other HCPs (not separately reported), independently interpreting results (not separately reported), and communicating results to the patient/family/caregiver. documented in this encounterGalion Community Hospital11-16-2022 Miscellaneous Notes* Telephone Encounter - Nan Gorman MA - 03/31/2022 10:02 AM EST Patient has been identified by name and date of : Yes Last office visit in this department: 01/21/2022 Next OV - 05/28/22 RX INSTRUCTIONS: Pharmacy initiated this request. No need to notify patient. Patient phones requesting refills as follows: Requested Prescriptions Pending Prescriptions Disp Refills DULoxetine (CYMBALTA) 30 mg capsule [Pharmacy Med Name: DULOXETINE HCL DR 30 MG CAP] 90 capsule 0 Sig: take 1 capsule by mouth once daily Please review and advise. Nan Gorman MA documented in this encounter[facility]22 Miscellaneous Notes* Telephone Encounter - Krista Coreas LPN - 01/25/2022 4:19 PM EDT PATIENT NOTIFIED OF SAME. * Telephone Encounter - Maribel Rose APRN.CNP - 01/25/2022 4:09 PM EDT At this time as folate is within normal range would just recommend B12. * Telephone Encounter - Swetha Pride RN - 01/22/2022 2:50 PM EDT Patient returns call and results and provider message reviewed. Patient verbalizes understanding and asks if there are any other vitamin supplements provider would recommend for memory/cognition in addition to the Vitamin B-12. Swetha Pride RN * Telephone Encounter - Krista Coreas LPN - 01/22/2022 2:10 PM EDT LEFT MESSAGE FOR PATIENT TO CALL OFFICE. * Telephone Encounter - Krista Coreas LPN - 01/22/2022 2:08 PM EDT ----- Message from Maribel Rose APRN.CNP sent at 01/22/2022 7:13 AM EDT ----- Your vitamin B12 level has come back in the low/low normal range (under 400). Please take an over the counter supplement to help treat this issue as when the level is under 400 it can cause symptoms at times. [place] treatment would be through the under the tongue method (may be labeled as lozenge, sublingual, or SL) and take the smallest amount you can find (typically 500mcg-1,000mcg) as this usually will raise the vitamin B12 level up quite a bit due to better absorption. documented in this encounterGal[facility]09-08-2022 NoteHNO ID: [id number] Author: Maribel Rose APRN.CNP Service: ? Author Type: Nurse Practitioner Type: Progress Notes Filed: 01/21/2022 12:58 PM Note Text: [facility] [place] Follow-up Visit Follow-up note January 21, 2022 HPI: Ms. Medrano presents today for a follow-up visit. 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 Lyrica dose was increased to 100mg TID at time of last appointment, however, there was concern for possible kidney stone and medication was decreased to 75mg while awaiting results. After negative workup from the ED and UTI dx, pt was to restart 100mg TID, however, on review it appears she has been filling 75mg prescription. Today she reports symptoms are well managed with current dose of medication therefore will continue Lyrica 75mg TID. Note she is also taking Cymbalta 30mg. Previously instructed to begin alpha lipoic acid 600mg daily, however, she reports that she did not remember to poultry picker supplement and will do so when she refills her Lyrica. Continue to follow with PCP for BG management. M48.061 Spinal stenosis of lumbar region, unspecified whether neurogenic claudication present Comment: MRI lumbar spine completed since previous appointment noting moderate canal stenosis and recommendation made for patient to be seen by spine medicine. She reports that she had appointment scheduled but had to cancel due to illness. Will reschedule after appointment today. She states she has symptoms from her neuropathy. States that it stinks. Feels it is worse in the evening. Currently taking Lyrica 75mg TID. She is also still taking Cymbalta 30mg. Not taking alpha lipoic acid. She did go to see urology yesterday and everything is going well. No infection. She does note increased sweating. Feels like this will happen even when doing a small chore. Denies night sweats. Has not yet spoke with PCP. BG has been ok. She has not yet seen spine medicine. No longer having low back pain. States it does not radiate into her legs. States memory might be decreasing. Only noticed this fairly recently. Maybe 5-6 weeks ago. Not severe. States yesterday she went to see the doctor and could not remember how to get to the office. States her father had memory issues. Not forgetting medications. Not forgetting people who are familiar to her. Could not remember which doctor she was seeing the other day. MOCA 01/21/22 Visuospatial/exec (5-5) dot connect deferred, incorrect cube copy (3/4) Naming (0-3) (3/3) Memory Words, up to 2 trials: Face, Velvet, Hindu, Jesus, Red (no points) 5/5 first try, 5/5 second try Attention forwards: 2 1 8 5 4 (0-1) (05/16) Attention backwards: 7 4 2 (0-1) (05/16) Tap for the A : F B A C M N A A J K L B A F A K D E A A A J A M O F A A B (1 point if 0 or 1 error) (05/16) Serial subtraction by 7: [id number] (3 points for correct 4 or 5; 2 points for 2 or 3 correct; 1 point for 1 correct) [id number] (07/16) Language: repeat: I only know that [facility] is the one to help today (0-1) (05/16) Language: repeat: The cat always hid under the couch when dogs were in the room (0-1) (05/16) Fluency: max words beginning with the letter F (1 point if 11 or more words) (05/16) Abstraction: practice banana-orange=fruit. Then train-bicycle (1) AND watch-ruler (1) total: (2) (/2) Delayed recall: recall words: face, velvet, methodist, jesus, red (0-5) (2/5) Orientation: date(1), month(1), year(1), day(1), place(1), city(1) max 6 points 01/21/22 thurs, [facility] (10/19) Total Score max 29 (25) No past medical history on file. No past surgical history on file. Current Outpatient Medications on File Prior to Visit Medication Sig DULoxetine (CYMBALTA) 30 mg capsule take 1 capsule by mouth once daily pregabalin (LYRICA) 75 mg capsule Take 1 capsule by mouth three times daily for 90 days. alpha lipoic acid 600 mg tab Take 600 mg by mouth once daily. oxybutynin ER (DITROPAN XL) 10 mg 24 hr tablet Take 1 tablet by mouth once daily. aspirin 325 mg tablet Take 325 mg by mouth once daily. (Patient not taking: Reported on 09/17/2021 ) traMADol (ULTRAM) 50 mg tablet Take 50 mg by mouth twice daily as needed. Ascorbic Acid 1,000 mg TbER Ascorbic Acid VITAMIN C CR CR-TABS One tablet by mouth daily ASCORBIC ACID CR-TABS Maribell Arias PA-C 09-06-2016 [facility] ([id number]) cyanocobalamin (VITAMIN B-12) 1,000 mcg tab Vitamin B 12 VITAMIN B-12 1000 MCG TABS One tablet by mouth daily CYANOCOBALAMIN [id number] Coleen Erwin RN 07-23-2014 [facility] ([id number]) ketoconazole (NIZORAL) 2 % cream metFORMIN (GLUCOPHAGE) 500 mg tablet lisinopril (ZESTRIL, PRINIVIL) 20 mg tablet Take 20 mg by mouth once daily. cholecalciferol (VITAMIN D3) 1,000 unit tab tablet Take 1,000 Units b (more content not included)...[facility]09-08-2022 History of Present illness Narrative* Maribel Rose, HYDRAULIC OIL TOOL OPERATOR.SKIN CARVER - 01/21/2022 11:30 AM EDT Images from the original note were not included. [facility] [place] Follow-[facility] Visit Follow-up note January 21, 2022 HPI: Ms. Medrano presents today for a follow-up visit. 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 Lyrica dose was increased to 100mg TID at time of last appointment, however, there was concern for possible kidney stone and medication was decreased to 75mg while awaiting results. After negative workup from the ED and UTI dx, pt was to restart 100mg TID, however, on review it appears she has been filling 75mg prescription. Today she reports symptoms are well managed with current dose of medication therefore will continue Lyrica 75mg TID. Note she is also taking Cymbalta 30mg. Previously instructed to begin alpha lipoic acid 600mg daily, however, she reports that she did not remember to poultry picker supplement and will do so when she refills her L yrica. Continue to follow with PCP for BG management. M48.061 Spinal stenosis of lumbar region, unspecified whether neurogenic claudication present Comment: MRI lumbar spine completed since previous appointment noting moderate canal stenosis and recommendation made for patient to be seen by spine medicine. She reports that she had appointment scheduled but had to cancel due to illness. Will reschedule after appointment today. She states she has symptoms from her neuropathy. States that it stinks. Feels it is worse in the evening. Currently taking Lyrica 75mg TID. She is also still taking Cymbalta 30mg. Not taking alpha lipoic acid. She did go to see urology yesterday and everything is going well. No infection. She does note increased sweating. Feels like this will happen even when doing a small chore. Deniesnight sweats. Has not yet spoke with PCP. BG has been ok. She has not yet seen spine medicine. No longer having low back pain. States it does not radiate into her legs. States memory might be decreasing. Only noticed this fairly recently. Maybe 5-6 weeks ago. Not severe. States yesterday she went to see the doctor and could not remember how to get to the office. States her father had memory issues. Not forgetting medications. Not forgetting people who are familiar to her. Could not remember which doctor she was seeing the other day. MOCA 01/21/22 Visuospatial/exec (5-5) dot connect deferred, incorrect cube copy (3/4) Naming (0-3) (3/3) Memory Words, up to 2 trials: Face, Velvet, Hindu, Jesus, Red (no points) 5/5 first try, 5/5 second try Attention forwards: 2 1 8 5 4 (0-1) (05/16) Attention backwards: 7 4 2 (0-1) (05/16) Tap for the A : F B A C M N A A J K L B A F A K D E A A A J A M O F A A B (1 point if 0 or 1 error) (05/16) Serial subtraction by 7: [id number] (3 points for correct 4 or 5; 2 points for 2 or 3 correct; 1 point for 1 correct) [id number] (07/16) Language: repeat: I only know that [facility] is the one to help today (0-1) (05/16) Language: repeat: The cat always hid under the couch when dogs were in the room (0-1) (05/16) Fluency: max words beginning with the letter F (1 point if 11 or more words) (05/16) Abstraction: practice banana-orange=fruit. Then train-bicycle (1) AND watch- ruler (1) total: (2) (06/17) Delayed recall: recall words: face, velvet, methodist, jesus, red (0-5) (06/20) Orientation: date(1), month(1), year(1), day(1), place(1), city(1) max 6 points 01/21/22 thurs, [facility] (10/19) Total Score max 29 (25) No past medical history on file. No past surgical history on file. Current Outpatient Medications on File Prior to Visit Medication Sig DULoxetine (CYMBALTA) 30 mg capsule take 1 capsule by mouth once daily pregabalin (LYRICA) 75 mg capsule Take 1 capsule by mouth three times daily for 90 days. alpha lipoic acid 600 mg tab Take 600 mg by mouth once daily. oxybutynin ER (DITROPAN XL) 10 mg 24 hr tablet Take 1 tablet by mouth once daily. aspirin 325 mg tablet Take 325 mg by mouth once daily. (Patient not taking: Reported on 09/17/2021 ) traMADol (ULTRAM) 50 mg tablet Take 50 mg by mouth twice daily as needed. Ascorbic Acid 1,000 mg TbER Ascorbic Acid VITAMIN C CR CR-TABS One tablet by mouth daily ASCORBIC ACID CR-TABS Maribell Arias PA-C 09-06-2016 [facility] ([id number]) cyanocobalamin (VITAMIN B-12) 1,000 mcg tab Vitamin B 12 VITAMIN B-12 1000 MCG TABS One tablet by mouth daily CYANOCOBALAMIN [id number] Coleen Erwin RN 07-23-2014 [facility] ([id number]) ketoconazole (NIZORAL) 2 % cream metFORMIN (GLUCOPHAGE) 500 mg tablet lisinopril (ZESTRIL, PRINIVIL) 20 mg tablet Take 20 mg by mouth once daily. cholecalciferol (VITAMIN D3) 1,000 unit tab tablet Take 1,000 Units by mouth as needed. B Complex Vitamins capsule Take 1 capsule by mouth once daily. (Patient not taking: Reported on 06/11/2021 ) BIOTIN ORAL Take by mouth. No current facility-administered medications on file prior to visit. Social History Tobacco Use Smoking status: Never Smokeless tobacco: Never Vaping Use Vaping Use: Never used Substance Use Topics Drug use: Yes Types: Marijuana Comment: Patient uses edibles PRN 07/24/19 ALLERGIES Allergen Reactions Keppra [Levetiracet* GI Upset Neomycin-Bacitracnz* Rash Codeine Other: See Comments makes me ill Nickel Unknown Review of Systems: Cardiopulmonary: denies + chest pain, palpitations Respiratory: denies shortness of breath GI/: denies recent nausea, vomiting, diarrhea, + constipation, incontinence, + urinary frequency Musculoskeletal: denies weakness, joint ache/pain Back/spine: denies + low back (hx of lumbar sx) or cervical pains Neuro: denies tremors, loss of feeling, dizziness, seizure, blackout, + paresthesia, facial paresthesia, facial weakness, difficulty in speech, slurring of words, dysarthria, dysphagia, memory loss, headache, vision changes, loss of hearing Physical Exam: 01/21/22 1121 BP: 116/70 Pulse: 85 Resp: 14 SpO2: 96% Weight: 87.5 kg (193 lb) Patient is alert and in no distress. Dress is appropriate. Mood is appropriate Breathing appears regular and unstressed Neurologic examination: MOCA above. CN: Pupils equal and reactive to light, extraocular movements intact with no nystagmus, face is symmetric with no facial droop, hearing intact bilaterally, symmetric evaluation of the soft palate, tongue is midline with no deviation, shoulder shrug is symmetric. Motor exam shows 5/5 strength symmetric through the upper and lower extremities in all groups tested. Sensory intact to light touch in all extremities. Vibratory sensation is decreased in bilateral lower extremities. Decreased pinprick to roughly the knee on the R and few inches below the knee on the L. Decreased pinprick to all fingers in both hands. Intact above wrist. Deep tendon reflexes are symmetric at the biceps, brachioradialis, triceps, and decreased symmetrically at the patella, and achilles bilaterally. Coordination: No dysmetria on finger to nose. No tremors noted. No drift seen. Unstable gait; uses cane. Labs/studies: Previously Reviewed: MRI Lumbar Spine 07/23/21: Multilevel DDD with moderate canal stenosis and nerve root impingement. Mild thickening or clumping of the left nerve roots of the L3-L4 level with peripheralization of thenerve roots more inferiorly suggesting sequela of arachnoiditis or adhesions. Component Latest Ref Rng & Units 07/29/2015 Sm Antibody <1.0 AI <0.2 CORK PRESSING MACHINE OPERATOR Antibody <1.0 AI <0.2 SSA Antibody <1.0 AI 0.4 SSB Antibody <1.0 AI <0.2 Centromere Ab <1.0 AI <0.2 Scleroderma Ab, IgG <1.0 AI <0.2 Tonie 1 Antibody <1.0 AI <0.2 Ribosomal CORK PRESSING MACHINE OPERATOR <1.0 AI <0.2 Chromatin Antibody <1.0 AI <0.2 MPA IgG, Serum 717 - 1,411 mg/dL 849 MPA IgA, Serum 78 - 391 mg/dL 208 MPA IgM, Serum 53 - 334 mg/dL 32 (L) MPA [place], Serum 534 - 1,267 mg/dL 700 MPA Lambda, Serum 253 - 653 mg/dL 336 MPA [place]/Lambda Ratio 1 - 3 2.08 MPA Result No M protein is identified. No M protein is identified. Staff Review ([facility]) Reviewed by Jordan Kerr MD ([id number]) Result ([facility]) No M protein is identified. No M protein is identified. 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 Currently taking Lyrica 75mg TID as well as Cymbalta 30mg daily. Previously discussed starting alpha lipoicacid 600mg daily as well, however, she has not yet started supplement at this time. Exam with minimal progression in symptoms since time of previous appointment. Discussed options today including increasing Lyrica, increasing Cymbalta, or starting alternative medication. At this time she would liketo try alternative medication. Will begin Trileptal 150mg BID. If symptoms improve and no SE from Trileptal will begin to titrate down Lyrica and discontinue. She may being alpha lipoic acid as well.Continue Cymbalta as previously prescribed and continue to follow with PCP for BG management. M48.061 Spinal stenosis of lumbar region, unspecified whether neurogenic claudication present Comment: Previous lumbar MRI noting moderate canal stenosis and consult placed to spine medicine. She has not yet scheduled appointment though notes that she no longer has lumbar symptoms and no symptoms radiating into her legs. Encouraged to schedule consult if pain and/or weakness returns or worsens. R41.3 Memory problem Comment: Patient reporting new memory concerns that began roughly five weeks ago. MOCA completed inoffice with score of 25/29 with almost all points lost on short term recall. No other significant new concerns reported and no new exam findings noted. At this time will complete blood work as noted below to rule out underlying cause of memory concerns such as metabolic abnormality or vitamin deficiency. Will await results and repeat cognitive testing at time of follow up appointment. If concern remain or exam findings change, may consider further testing. Office Visit on 01/21/22 TSH BLD FOLATE SERUM VITAMIN B12 BLOOD COMP METABOLIC PANEL Maribel Rose APRN.RADHIKA I spent a total of 45 minutes on the date of the service which included preparing to see the patient, [id number] patient care, completing clinical documentation, obtaining and/or reviewing separately obtained history, performing a medically appropriate examination, counseling and educating the pat ient/family/caregiver, and ordering medications, tests, or procedures. documented in this encounterGal[facility]08-12-2022 Miscellaneous Notes* Telephone Encounter - Rupali Ruvalcaba MA - 12/25/2021 10:08 AM EDT RX INSTRUCTIONS: Pharmacy initiated this request. No need to notify patient. 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 Lyrica dose was increased to 100mg TID at time of last appointment, however, there was concern for possible kidney stone and medication was decreased to 75mg while awaiting results. After negative workup from the ED and UTI dx, pt was to restart 100mg TID, however, on review it appears she has been filling 75mg prescription. Today she reports symptoms are well managed with current dose of medication therefore will continue Lyrica 75mg TID. Note she is also taking Cymbalta 30mg. Previously instructed to begin alpha lipoic acid 600mg daily, however, she reports that she did not remember to poultry picker supplement and will do so when she refills her L yrica. Continue to follow with PCP for BG management. M48.061 Spinal stenosis of lumbar region, unspecified whether neurogenic claudication present Comment: MRI lumbar spine completed since previous appointment noting moderate canal stenosis and recommendation made for patient to be seen by spine medicine. She reports that she had appointment scheduled but had to cancel due to illness. Will reschedule after appointment today. Maribel Rose APRN.SKIN CARVER documented in this encounterGalion [facility] Hospital05-19-2022 Miscellaneous Notes* Telephone Encounter - Clary Iraheta - 10/01/2021 11:02 AM EDT Pharmacy verified in [place]. Patient has been identified by name and date of : Yes Patient aware RX will be sent to pharmacy. No need to notify patient. Pharmacy phones for refill(s): Pending Prescriptions Disp Refills DULOXETINE 30 MG CAPSULE,DELAYED RELEASE 90 capsule 0 Sig: take 1 capsule by mouth once daily [place]: Yes Date of last office visit : 09/17/2021 Date of next office visit : 01/21/2022 Last 2 Encounter Wt Readings: Date: Wt: 09/17/2021 84.4 kg (186 lb) 06/11/2021 84.8 kg (187 lb) Please advise. Clary Iraheta documented in this encounterGalion [facility]05-05-2022 NoteHNO ID: [id number] Author: Maribel Rose APRN.CNP Service: ? Author Type: Nurse Practitioner Type: Progress Notes Filed: 09/17/2021 12:28 PM Note Text: [facility] [place] Follow-up Visit Follow-up note September 17, 2021 HPI: Ms. Medrano presents today for a follow-up visit. 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 Was taking gabapentin and Cymbalta with minimal relief of symptoms. At previous appointment gabapentin was discontinued and she instead began Lyrica 75mg TID. She was also to start alpha lipoic acid 600mg daily, however, she was unable to fill prescription. Today she reports improvement in symptoms, though notes that pain and discomfort can still be present upon standing for extended length of time. Discussed options including increasing dose of Lyrica as Lyrica has provided some relief of symptoms thus far verses trial of alternative medication. At this time she chooses to increase dose of Lyrica and will send prescription for 100mg TID. She will also start alpha lipoic acid as well. If no further improvement with increased dose of Lyrica can try trial of alternative medication such as Trileptal or Keppra. Will continue Cymbalta 30mg as previously prescribed. ? She states neuropathy symptoms are about the same. Has been taking medication regularly. If she forgets to take her medication she will note neuropathy symtpoms return. Feels like Lyrica controls symptoms well. Currently taking 100mg TID. However, on review of PDMP it states she is taking only 75mg TID. Still taking Cymbalta 30mg daily. She has not yet started the alpha lipoic acid. States she completely forgot about the medication. She has not yet seen Dr. Fermin. States she called to make an appointment but she had the flu and was unable to attend. States she was very sick with stomach issues. States she has the information at home to set up an appointment. She then states she is unsure if she wants to see spine/pain as her follows with pain management and has not had much relief of sx. States she does not often check her BG at home. She cannot recall her last A1C. Hx of R knee surgery last January. Denies new onset weakness, speech changes, vision changes, falls, LOC. No past medical history on file. No past surgical history on file. Current Outpatient Medications on File Prior to Visit Medication Sig - DULoxetine (CYMBALTA) 30 mg capsule take 1 capsule by mouth once daily - pregabalin (LYRICA) 75 mg capsule Take 1 capsule by mouth three times daily for 90 days. - oxybutynin ER (DITROPAN XL) 10 mg 24 hr tablet Take 1 tablet by mouth once daily. - alpha lipoic acid 600 mg tab Take 600 mg by mouth once daily. - aspirin 325 mg tablet Take 325 mg by mouth once daily. - traMADol (ULTRAM) 50 mg tablet Take 50 mg by mouth twice daily as needed. - Ascorbic Acid 1,000 mg TbER Ascorbic Acid VITAMIN C CR CR-TABS One tablet by mouth daily ASCORBIC ACID CR-TABS Maribell Arias PA-C 09-06-2016 [facility] ([id number]) - cyanocobalamin (VITAMIN B-12) 1,000 mcg tab Vitamin B 12 VITAMIN B-12 1000 MCG TABS One tablet by mouth daily CYANOCOBALAMIN [id number] Coleen Erwin RN 07-23-2014 [facility] ([id number]) - ketoconazole (NIZORAL) 2 % cream - metFORMIN (GLUCOPHAGE) 500 mg tablet - lisinopril (ZESTRIL, PRINIVIL) 20 mg tablet Take 20 mg by mouth once daily. - cholecalciferol (VITAMIN D3) 1,000 unit tab tablet Take 1,000 Units by mouth as needed. - B Complex Vitamins capsule Take 1 capsule by mouth once daily. (Patient not taking: Reported on 06/11/2021 ) - BIOTIN ORAL Take by mouth. (Patient not taking: Reported on 06/11/2021 ) No current facility-administered medications on file prior to visit. Social History Tobacco Use - Smoking status: Never Smoker - Smokeless tobacco: Never Used Vaping Use - Vaping Use: Never used Substance Use Topics - Alcohol use: Not on file - Drug use: Yes Types: Marijuana Comment: Patient uses edibles PRN 07/24/19 ALLERGIES Allergen Reactions - Keppra [Levetiracet* GI Upset - Neomycin-Bacitracnz* Rash - Codeine Other: See Comments makes me ill - Nickel Unknown Review of Systems: Cardiopulmonary: denies chest pain, palpitations Respiratory: denies shortness of breath GI/: denies recent nausea, vomiting, diarrhea, + constipation, incontinence, + urinary frequency (taking medication- myrbetriq) Musculoskeletal: denies weakness, joint ache/pain Back/spine: denies + low back (hx of lumbar sx) or cervical pains Neuro: denies tremors, loss of feeling, dizziness, seizure, blackout, + paresthesia, facial paresthesia, facial weakness, difficulty in speech, slurring of words, dysarthria, dysphagia, memory loss, headache, vision changes, loss of hearing Physical Exam: 09/17/21 (more content not included)...[facility]05-05-2022 Instructions* Patient Instructions* Maribel Rose APRN.CNP - 09/17/2021 11:[address] Fermin (permit specialist/pain management) [facility] at [phone]. Alpha Lipoic Acid 600mg daily [facility] History of Present illness Narrative* Maribel Rose APRN.CNP - 09/17/2021 11:30 AM EDT Images from the original note were not included. [facility] [place] Follow-up Visit Follow-up note September 17, 2021 HPI: Ms. Medrano presents today for a follow-up visit. 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 Was taking gabapentin and Cymbalta with minimal relief of symptoms. At previous appointment gabapentin was discontinued and she instead began Lyrica 75mg TID. She was also to start alpha lipoic acid 600mg daily, however, she was unable to fill prescription. Today she reports improvement in symptoms, though notes that pain and discomfort can still be present upon standing for extended length of time. Discussed options including increasing dose of Lyrica as Lyrica has provided some relief of symptoms thus far verses trial of alternative medication. At this time she chooses to increase dose of Lyrica and will send prescription for 100mg TID. She will also start alpha lipoic acid as well. If no further improvement with increased dose of Lyrica can try trial of alternative medication such as Trileptal or Keppra. Will continue Cymbalta 30mg as previously prescribed. She states neuropathy symptoms are about the same. Has been taking medication regularly. If she forgets to take her medication she will note neuropathy symtpoms return. Feels like Lyrica controls symptoms well. Currently taking 100mg TID. However, on review of PDMP it states she is taking only 75mgTID. Still taking Cymbalta 30mg daily. She has not yet started the alpha lipoic acid. States she completely forgot about the medication. She has not yet seen Dr. Fermin. States she called to make an appointment but she had the flu and wasunable to attend. States she was very sick with stomach issues. States she has the information at home to set up an appointment. She then states she is unsure if she wants to see spine/pain as her follows with pain management and has not had much relief of sx. States she does not often check her BG at home. She cannot recall her last A1C. Hx of R knee surgery last January. Denies new onset weakness, speech changes, vision changes, falls, LOC. No past medical history on file. No past surgical history on file. Current Outpatient Medications on File Prior to Visit Medication Sig DULoxetine (CYMBALTA) 30 mg capsule take 1 capsule by mouth once daily pregabalin (LYRICA) 75 mg capsule Take 1 capsule by mouth three times daily for 90 days. oxybutynin ER (DITROPAN XL) 10 mg 24 hr tablet Take 1 tablet by mouth once daily. alpha lipoic acid 600 mg tab Take 600 mg by mouth once daily. aspirin 325 mg tablet Take 325 mg by mouth once daily. traMADol (ULTRAM) 50 mg tablet Take 50 mg by mouth twice daily as needed. Ascorbic Acid 1,000 mg TbER Ascorbic Acid VITAMIN C CR CR-TABS One tablet by mouth daily ASCORBIC ACID CR-TABS Maribell Arias PA-C 09-06-2016 [facility] ([id number]) cyanocobalamin (VITAMIN B-12) 1,000 mcg tab Vitamin B 12 VITAMIN B-12 1000 MCG TABS One tablet by mouth daily CYANOCOBALAMIN [id number] Coleen Erwin RN 07-23-2014 [facility] ([id number]) ketoconazole (NIZORAL) 2 % cream metFORMIN (GLUCOPHAGE) 500 mg tablet lisinopril (ZESTRIL, PRINIVIL) 20 mg tablet Take 20 mg by mouth once daily. cholecalciferol (VITAMIN D3) 1,000 unit tab tablet Take 1,000 Units by mouth as needed. B Complex Vitamins capsule Take 1 capsule by mouth once daily. (Patient not taking: Reported on 06/11/2021 ) BIOTIN ORAL Take by mouth. (Patient not taking: Reported on 06/11/2021 ) No current facility-administered medications on file prior to visit. Social History Tobacco Use Smoking status: Never Smoker Smokeless tobacco: Never Used Vaping Use Vaping Use: Never used Substance Use Topics Alcohol use: Not on file Drug use: Yes Types: Marijuana Comment: Patient uses edibles PRN 07/24/19 ALLERGIES Allergen Reactions Keppra [Levetiracet* GI Upset Neomycin-Bacitracnz* Rash Codeine Other: See Comments makes me ill Nickel Unknown Review of Systems: Cardiopulmonary: denies chest pain, palpitations Respiratory: denies shortness of breath GI/: denies recent nausea, vomiting, diarrhea, + constipation, incontinence, + urinary frequency (taking medication- myrbetriq) Musculoskeletal: denies weakness, joint ache/pain Back/spine: denies + low back (hx of lumbar sx) or cervical pains Neuro: denies tremors, loss of feeling, dizziness, seizure, blackout, + paresthesia, facial paresthesia, facial weakness, difficulty in speech, slurring of words, dysarthria, dysphagia, memory loss, headache, vision changes, loss of hearing Physical Exam: 09/17/21 1139 BP: 122/78 Pulse: 73 Resp: 18 Temp: 36.3 C (97.3 F) SpO2: 97% Weight: 84.4 kg (186 lb) Patient is alert and in no distress. Dress is appropriate. Mood is appropriate Breathing appears regular and unstressed Neurologic examination: Cognitively intact. No deficits. No formal MMSE performed. CN: Pupils equal and reactive to light, extraocular movements intact with no nystagmus, face is symmetric with no facial droop, hearing intact bilaterally, symmetric evaluation of the soft palate, tongue is midline with no deviation, shoulder shrug is symmetric. Motor exam shows 5/5 strength symmetric through the upper and lower extremities in all groups tested. Sensory intact to light touch in all extremities. Vibratory sensation is decreased in bilateral lower extremities. Per previous visit: decreased pinprick to few inches below knee on R and midway up fermin on L. Decreased pinprick to all fingers in both hands. Intact above wrist. Deep tendon reflexes are symmetric at the biceps, brachioradialis, triceps, and decreased symmetrically at the patella, and achilles bilaterally. Coordination: No dysmetria on finger to nose. No tremors noted. No drift seen. Unstable gait; uses cane. Labs/studies: MRI Lumbar Spine 07/23/21: Multilevel DDD with moderate canal stenosis and nerve root impingement. Mild thickening or clumping of the left nerve roots of the L3-L4 level with peripheralization of thenerve roots more inferiorly suggesting sequela of arachnoiditis or adhesions. Previously Reviewed: Component Latest Ref Rng & Units 07/29/2015 Sm Antibody <1.0 AI <0.2 CORK PRESSING MACHINE OPERATOR Antibody <1.0 AI <0.2 SSA Antibody <1.0 AI 0.4 SSB Antibody <1.0 AI <0.2 Centromere Ab <1.0 AI <0.2 Scleroderma Ab, IgG <1.0 AI <0.2 Tonie 1 Antibody <1.0 AI <0.2 Ribosomal CORK PRESSING MACHINE OPERATOR <1.0 AI <0.2 Chromatin Antibody <1.0 AI <0.2 MPA IgG, Serum 717 - 1,411 mg/dL 849 MPA IgA, Serum 78 - 391 mg/dL 208 MPA IgM, Serum 53 - 334 mg/dL 32 (L) MPA [place], Serum 534 - 1,267 mg/dL 700 MPA Lambda, Serum 253 - 653 mg/dL 336 MPA [place]/Lambda Ratio 1 - 3 2.08 MPA Result No M protein is identified. No M protein is identified. Staff Review (MPA) Reviewed by Jordan Kerr MD ([id number]) Result ([facility]) No M protein is identified. No M protein is identified. 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 Lyrica dose was increased to 100mg TID at time of last appointment, however, there was concern for possible kidney stone and medication was decreased to 75mg while awaiting results. After negative workup from the ED and UTI dx, pt was to restart 100mg TID, however, on review it appears she has been filling 75mg prescription. Today she reports symptoms are well managed with current dose of medication therefore will continue Lyrica 75mg TID. Note she is also taking Cymbalta 30mg. Previously instructed to begin alpha lipoic acid 600mg daily, however, she reports that she did not remember to poultry picker supplement and will do so when she refills her L yrica. Continue to follow with PCP for BG management. M48.061 Spinal stenosis of lumbar region, unspecified whether neurogenic claudication present Comment: MRI lumbar spine completed since previous appointment noting moderate canal stenosis and recommendation made for patient to be seen by spine medicine. She reports that she had appointment scheduled but had to cancel due to illness. Will reschedule after appointment today. Maribel Rose APRN.RADHIKA I spent a total of 35 minutes on the date of the service which included preparing to see the patient, [id number] patient care, completing clinical documentation, obtaining and/or reviewing separately obtained history, performing a medically appropriate examination, counseling and educating the pat ient/family/caregiver and ordering medications, tests, or procedures. PDMP website checked and validated. All prescriptions have been APPROPRIATELY filled. No suspiciousactivity was identified. September 17, 2021 Maribel Rose APRN.SKIN CARVER [facility] Miscellaneous Notes* Telephone Encounter - Mabel Merino Ma - 08/14/2021 2:45 PM EDT Patient contacted via telephone regarding upcoming NEW patient appointment with Dr. Fermin on 08/17/21. Patient informed of the following: [facility] is [facility] calling regarding your upcoming appointment with Dr. Fermin. To avoid a delay in your care, please bring any imaging (such as MRI, CT, XR, etc.) that have been done outside of the [facility] Systems on a disk to be viewed at your appointment. Please be advised that this appointment is a consult only and narcotics will NOT be prescribed. is primarily an interventional pain management provider. He treats with physical therapy, injections of the spine or joints, and non- narcotic medications. Dr. Fermin will not take over and manage any medications that are already being prescribed by another provider. Patient verbalized understanding with no additional questions at this time. 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) [facility] [place] [facility]* Diagnosis 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)- Primary Spinal stenosis of lumbar region, unspecified whether neurogenic claudication present Memory problem Memory loss [facility]* Diagnosis Seizures (HCC)- Primary Other convulsions 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) Spinal stenosis of lumbar region, unspecified whether neurogenic claudication present Memory problem Memory loss [facility] [place] [facility]* Diagnosis Cognitive changes- Primary Other signs and symptoms involving cognition Syncope and collapse [facility] Diagnosis Convulsions, unspecified convulsion type (HCC)- Primary [facility] Diagnosis Pleural effusion- Primary Unspecified pleural effusion documented in [facility] Reason for Referral Specialty Diagnoses / Procedures Referred By Contac t Referred To Contact Neurology Diagnoses Cognitive changes Procedures CONSULT TO NEUROLOGY OFFICE/OUTPATIENT [facility] 60-74 MINUTES Alden Hughes MD [address] [place] [address] Referral ID Status Reason Start Date Expiration Date Visits Requested Visits Authorized [id number] Authorized PCP Requested Referral 2 05/06/2023 1 1 Specialty Diagnoses / Procedures Referred By Contac t Referred To Contact MR IMAGING Diagnoses Convulsions, unspecified convulsion type (HCC) Procedures MRI BRAIN WO IVCON MRI BRAIN BRAIN STEM W/O CONTRAST MATERIAL Alden Hughes MD [address] [place] [address] Mr Imaging Referral ID Status Reason Start Date Expiration Date Visits Requested Visits Authorized [id number] Authorized Auto-Generat ed Referral 2 06/05/2023 1 1 Advance Directives No Advanced Directives Records FoundLatest Code Status on File Code Status Date Activated Date Inactivated Comments DNR-CCA 07/27/2022 8:26 AM 07/28/2022 4:49 PM DNR Order Discussed With: Patient Summary Purpose Family History No Family History Records FoundNo Family History Records Found Additional Source Comments Source Comments (unrecognize d section and content) In the event this informatio n is protected by the Federal Confidentiality of Alcohol and Drug Abuse Patient Records regulations: The Federal rules restrict any use of the information to criminally investigate or prosecute any alcohol or drug abuse patient.[facility] the event this information is protected by the Federal Confidentiality of Alcohol and Drug Abuse Patient Records regulations: The Federal rules restrict any use of the information to criminally investigate or prosecute any alcohol or drug abuse patient.[facility] Hospital[facility] the event this information is protected by the Federal Confidentiality of Alcohol and Drug Abuse Patient Records regulations: The Federal rules restrict any use of the information to criminally investigate or prosecute any alcohol or drug abuse patient.[facility] the event this information is protected by the Federal Confidentiality of Alcohol and Drug Abuse Patient Records regulations: The Federal rules restrict any use of the information to criminally investigate or prosecute any alcohol or drug abuse patient.[facility] the event this information is protected by the Federal Confidentiality of Alcohol and Drug Abuse Patient Records regulations: The Federal rules restrict any use of the information to criminally investigate or prosecute any alcohol or drug abuse patient.[facility] HospitalIn the event this information is protected by the Federal Confidentiality of Alcohol and Drug Abuse Patient Records regulations: The Federal rules restrict any use of the information to criminally investigate or prosecute any alcohol or drug abuse patient.[facility] Hospital[facility] the event this information is protected by the Federal Confidentiality of Alcohol and Drug Abuse Patient Records regulations: The Federal rules restrict any use of the information to criminally investigate or prosecute any alcohol or drug abuse patient.[facility] HospitalIn the event this information is protected by the Federal Confidentiality of Alcohol and Drug Abuse Patient Records regulations: The Federal rules restrict any use of the information to criminally investigate or prosecute any alcohol or drug abuse patient.[facility] HospitalIn the event this information is protected by the Federal Confidentiality of Alcohol and Drug Abuse Patient Records regulations: The Federal rules restrict any use of the information to criminally investigate or prosecute any alcohol or drug abuse patient.[facility] HospitalIn the event this information is protected by the Federal Confidentiality of Alcohol and Drug Abuse Patient Records regulations: The Federal rules restrict any use of the information to criminally investigate or prosecute any alcohol or drug abuse patient.[facility] HospitalIn the event this information is protected by the Federal Confidentiality of Alcohol and Drug Abuse Patient Records regulations: The Federal rules restrict any use of the information to criminally investigate or prosecute any alcohol or drug abuse patient.[facility] HospitalIn the event this information is protected by the Federal Confidentiality of Alcohol and Drug Abuse Patient Records regulations: The Federal rules restrict any use of the information to criminally investigate or prosecute any alcohol or drug abuse patient.[facility] Hospital[facility] the event this information is protected by the Federal Confidentiality of Alcohol and Drug Abuse Patient Records regulations: The Federal rules restrict any use of the information to criminally investigate or prosecute any alcohol or drug abuse patient.[facility] Hospital[facility] the event this information is protected by the Federal Confidentiality of Alcohol and Drug Abuse Patient Records regulations: The Federal rules restrict any use of the information to criminally investigate or prosecute any alcohol or drug abuse patient.[facility] Hospital[facility] the event this information is protected by the Federal Confidentiality of Alcohol and Drug Abuse Patient Records regulations: The Federal rules restrict any use of the information to criminally investigate or prosecute any alcohol or drug abuse patient.[facility] HospitalIn the event this information is protected by the Federal Confidentiality of Alcohol and Drug Abuse Patient Records regulations: The Federal rules restrict any use of the information to criminally investigate or prosecute any alcohol or drug abuse patient.[facility] HospitalIn the event this information is protected by the Federal Confidentiality of Alcohol and Drug Abuse Patient Records regulations: The Federal rules restrict any use of the information to criminally investigate or prosecute any alcohol or drug abuse patient.[facility] HospitalIn the event this information is protected by the Federal Confidentiality of Alcohol and Drug Abuse Patient Records regulations: The Federal rules restrict any use of the information to criminally investigate or prosecute any alcohol or drug abuse patient.[facility] HospitalIn the event this information is protected by the Federal Confidentiality of Alcohol and Drug Abuse Patient Records regulations: The Federal rules restrict any use of the information to criminally investigate or prosecute any alcohol or drug abuse patient.[facility] HospitalIn the event this information is protected by the Federal Confidentiality of Alcohol and Drug Abuse Patient Records regulations: The Federal rules restrict any use of the information to criminally investigate or prosecute any alcohol or drug abuse patient.[facility] HospitalIn the event this information is protected by the Federal Confidentiality of Alcohol and Drug Abuse Patient Records regulations: The Federal rules restrict any use of the information to criminally investigate or prosecute any alcohol or drug abuse patient.[facility] HospitalIn the event this information is protected by the Federal Confidentiality of Alcohol and Drug Abuse Patient Records regulations: The Federal rules restrict any use of the information to criminally investigate or prosecute any alcohol or drug abuse patient.[facility] HospitalIn the event this information is protected by the Federal Confidentiality of Alcohol and Drug Abuse Patient Records regulations: The Federal rules restrict any use of the information to criminally investigate or prosecute any alcohol or drug abuse patient.[facility] HospitalIn the event this information is protected by the Federal Confidentiality of Alcohol and Drug Abuse Patient Records regulations: The Federal rules restrict any use of the information to criminally investigate or prosecute any alcohol or drug abuse patient.[facility] HospitalIn the event this information is protected by the Federal Confidentiality of Alcohol and Drug Abuse Patient Records regulations: The Federal rules restrict any use of the information to criminally investigate or prosecute any alcohol or drug abuse patient.[facility] Reason for Visit (unrecogniz ed section and content) Reason Comments Future Appointment Reason Comments Established NI Patient 3 month follow up Neuropathy Reason Comments Refill Request Reason Comments Recheck Reason Comments Results Reason Comments ER F/U [facility] follow up seizure Reason Comments Medication Concern Rash Reason Comments Seizures Reason Comments Returning Patient's Call Patient Update Reason Comments Patient Update Returning cardiologi st call Reason Comments Request Outside Medical Records [facility] Reason Comments Received Outside Medical Records [facility] Reason Onset Date Comments Orders 07/24/2022 Reason Comments Orders [facility] order contact/SN F letter Reason Comments Patient Question Reason Comments Patient Update Reason Comments Other Call from [facility] about Lamictal level being drawn Reason Comments Outside Labs Results [facility]/Lamictal Reason Comments Orders [facility] - order conta ct/deferral Care Teams (unrecognized sec tion and content) [facility] Relationship Specialty Start Date End Date Zachary Kim MD [address] [place] [address] PCP - General Internal Medicine 02/23/16 [employer] Relationship Specialty Start Date End Date Zachary Kim MD [address] [place] [address] PCP - General Internal Medicine 02/23/16 [facility] Relationship Specialty Start Date End Date Zachary Kim MD [address] [place] [address] PCP - General Internal Medicine 02/23/16 [employer] Relationship Specialty Start Date End Date Zachary Kim MD [address] [place] [address] PCP - General Internal Medicine 02/23/16 [facility] Relationship Specialty Start Date End Date Zachary Kim MD [address] [place] [address] PCP - General Internal Medicine 02/23/16 [facility] [employer] Relationship Specialty Start Date End Date Zachary Kim MD [address] [place] [address] PCP - General Internal Medicine 02/23/16 [facility] Relationship Specialty Start Date End Date Zachary Kim MD [address] [place] [address] PCP - General Internal Medicine 02/23/16 [facility] Relationship Specialty Start Date End Date Zachary Kim MD [address] [place] [address] PCP - General Internal Medicine 02/23/16 [facility] Relationship Specialty Start Date End Date Zachary Kim MD [address] [place] [address] PCP - General Internal Medicine 02/23/16 [facility] Relationship Specialty Start Date End Date Zachary Kim MD [address] [place] [address] PCP - General Internal Medicine 02/23/16 [facility] Relationship Specialty Start Date End Date Zachary Kim MD [address] [place] [address] PCP - General Internal Medicine 02/23/16 [employer] Relationship Specialty Start Date End Date Zachary Kim MD [address] [place] [address] PCP - General Internal Medicine 02/23/16 [employer] Relationship Specialty Start Date End Date Zachary Kim MD [address] [facility] [address] [place] [address] PCP - General Internal Medicine 02/23/16 INFORMATION SOURCE (unrecogn ized section and content) DATE CREATED AUTHOR 08/14/2022 [facility] DATE CREATED AUTHOR AUTHOR'S MARIIA ATCLAIRE 09/10/2022 [facility] FOR RECORDS PERTAINING TO PATIENTS WHO ARE OR HAVE BEEN ENROLLED IN A CHEMICAL DEPENDENCY/SUBSTANCEABUSE PROGRAM, SOME INFORMATION MAY BE OMITTED. This clinical summary was aggregated from multiple sources. Caution should be exercised in using it in the provision of clinical care. This summary normalizes information from multiple sources, and as a consequence, information in this document may materially change the coding, format and clinical context of patient data. In addition, data may be omitted in some cases. CLINICAL DECISIONS SHOULD BE BASED ON THE PRIMARY CLINICAL RECORDS. [employer] provides no warranty or guarantee of the accuracy or completeness of information in this document.
[2024-03-07 05:09] LABS: Absolute Lymphocyte Count 0.77 X10^3/uL (0.83-4.51); Absolute Neutrophil Count 7.8 X10^3/uL (2.0-7.7); Basophil# 0.04 X10^3/uL; Basophil% 0.4 % (0-1); Eosinophil# 0.21 X10^3/uL; Eosinophils% 2.2 % (0-5); Hematocrit 37.8 % (37-47); Hemoglobin 12.3 g/dL (12.0-15.0); Lymphocyte # 0.77 X10^3/ul (0.83-4.51); Lymphocyte % 8.2 % (19-41); Mean Corp Hgb Conc 32.5 g/dL (32-36); Mean Corpuscular Hgb 34.2 pg (27.0-32.0); Mean Platelet Vol. 9.8 fl (6.2-12.0); Monocyte# 0.61 X10^3/uL; Monocyte% 6.5 % (0-10); NRBC Flagged by Analyzer 0 % (0-5); Neutrophil # 7.76 X10^3/uL (2.7-7.7); Neutrophil % 82.2 % (47-70); Platelet Count 202 K/mm3 (150-450); RBC Distribution Width CV 13.2 % (11.6-14.6); RBC Distribution Width SD 50.7 fl (35.1-43.9); White Blood Count 9.4 K/mm3 (4.4-11.0)
[2024-03-07 05:18] LABS: International Normalized Ratio 1.4; Prothrombin Time (Protime)PT. 17.3 SECONDS (11.7-14.9)
[2024-03-07 05:19] LABS: Partial Thromboplast Time 34.8 Seconds (24.1-36.2)
[2024-03-07 05:23] LABS: Anion Gap 5 (5-15); BUN 8 mg/dL (7-18); BUN/Creat Ratio 12.2 RATIO (10-20); Calcium,Total 9.3 mg/dL (8.5-10.1); Chloride 104 mmol/L (98-107); Creatinine, Serum 0.66 mg/dL (0.55-1.02); EST Glomerular Filtration Rate 91 mL/min (>60); Est Glom Filt Rate - Afr Amer 110 mL/min (>60); Estimated Creatinine Clearance 56.47 ml/min; Glucose 95 mg/dL (74-106); Potassium 3.5 mmol/L (3.5-5.1); Sodium Level 139 mmol/L (136-145)
[2024-03-07 05:51] VITALS: BP 124/55; PULSE 72; RESP 21; O2SAT 90
--- NOTE | 2024-03-07 06:19 | EDS_ITS ---
HPI History of Present Illness Chief Complaint: GI Bleed Informant: EMS and SNF Narrative Narrative: Patient is 83-year-old female with past medical history of dementia who was just recently admitted to the hospital secondary to recurrent bouts of nausea and vomiting. At that time she underwent an EGD showing a singular nonbleeding ulcer and had a PEG tube placed because of recurrent vomiting and malnutrition. The patient was discharged from the hospital just yesterday March 06 and [facility] Reportedly the patient only been at the nursing center for few hours when she had bouts of vomiting that looked dark in color which concerned them and therefore she was sent back to the hospital for further evaluation. The patient cannot offer any further history based on her past medical history of dementia [facility] Medical History Mitral regurgitation Aortic valve stenosis with insufficiency Atrial fibrillation Preoperative cardiovascular examination Congestive heart failure (CHF) Dementia Parkinson's disease Rotator cuff tear arthropathy of left shoulder Tremor Cardiomyopathy Aortic stenosis Pericardial effusion Anxiety Depression Hypertension Diabetic neuropathy Acute systolic congestive heart failure Debility Pleural effusion due to CHF (congestive heart failure) Cellulitis of chest wall H/O cardiac murmur Depression Diabetic polyneuropathy Diabetes mellitus Chronic constipation Vitamin D deficiency Hypertension Inability to ambulate due to knee Debility Acute postoperative pain of right knee Wears glasses History of steroid therapy Diabetes Ambulates with cane Arthritis Back pain Injury of back Injury of head and neck Epilepsy Dietary restriction Former smoker Chronic cough Neuropathy History of pain when walking History of stress test History of echocardiogram Cardiology follow-up encounter History of atrial fibrillation Hx of vaginal delivery Hx of back injury Atherosclerotic heart disease of [place] coronary artery without angina pectoris Abnormal stress test History of left heart catheterization (LHC) (~06/02/22) Essential hypertension 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 Neuropathy, diabetic Nephrolithiasis Hypertension DM2 (diabetes mellitus, type 2) Paroxysmal atrial fibrillation Home Medications ?Medication ?Instructions ?Recorded ?Last Taken ?Type diltiazem HCl 120 mg 120 mg PO DINNER heart 05/23/23 07/21/23 History capsule,extended release 24 hr (Cartia XT) divalproex 250 mg tablet,delayed 250 mg PO BID #60 tabs 01/19/24 Unknown Rx release IV with Additives 20 mls/hr GT 03/03/24 Unknown Rx acetaminophen 325 mg tablet 650 mg (2 x 325 mg) G-tube Q6H PRN 03/03/24 Unknown Rx PRN Pain 1-10 Or Fever >100.7 #0 tabs apixaban 5 mg tablet (Eliquis) 2.5 mg (1/2 x 5 mg) G-tube BID #0 03/03/24 Unknown Rx tabs clonazepam 0.5 mg tablet 0.5 mg feeding tube BID chronic 03/03/24 Unknown Rx anxiety #5 tabs donepezil 10 mg tablet 10 mg G-tube QHS #0 tabs 03/03/24 Unknown Rx lamotrigine 100 mg tablet 300 mg (3 x 100 mg) G-tube BID #0 03/03/24 Unknown Rx tabs losartan 25 mg tablet 25 mg G-tube QHS #0 tabs 03/03/24 Unknown Rx menthol 0.44 %-zinc oxide 20.6 % 1 applic topical TID #0 grams 03/03/24 Unknown Rx topical ointment (Calmoseptine) metoclopramide HCl 5 mg tablet 5 mg G-tube Q6H #0 tabs 03/03/24 Unknown Rx metoprolol tartrate 25 mg tablet 12.5 mg (1/2 x 25 mg) feeding tube 03/03/24 Unknown Rx BID #1 TAB nystatin 100,000 unit/gram topical 1 applic topical TID #0 grams 03/03/24 Unknown Rx powder (Nyamyc) omeprazole 40 mg capsule,delayed 40 mg feeding tube DAILY #1 cap 03/03/24 Unknown Rx release ondansetron 4 mg disintegrating 4 mg feeding tube Q8H #1 TAB 03/03/24 Unknown Rx tablet paroxetine HCl 10 mg/5 mL oral 10 mg (5 mL) feeding tube DAILY 03/03/24 Unknown Rx suspension (Paxil) #250 mL Allergy/AdvReac Type Severity Reaction Status Date / Time levetiracetam Allergy Other Verified 03/07/24 03:43 nickel Allergy Rash Verified 03/07/24 03:43 sulfamethoxazole (From Allergy Itching Verified 03/07/24 03:43 Bactrim) trimethoprim (From Bactrim) Allergy Itching Verified 03/07/24 03:43 codeine AdvReac Nausea Verified 03/07/24 03:43 milk AdvReac Nausea/Vom/ Verified 03/07/24 03:43 Diarrhea Family History Father No problems noted. Mother No problems noted. Family History unable to obtain Surgical History History of left hip hemiarthroplasty History of total right knee replacement (TKR) S/P total knee arthroplasty Hx of fusion of cervical spine Hx of cystoscopy Amputated toe of right foot History of hysterectomy History of tonsillectomy Deviated septum History of appendectomy History of cholecystectomy History of neck surgery Social History household members: spouse housing: fdc Smoking Status: Former smoker alcohol intake: never substance use type: does not use caffeine: No what type of physical activity do you participate in: other details: physical therapy seatbelt use: always do you feel safe at home: Yes ROS ROS ED ROS Narrative Unable to obtain review of systems based on history of dementia Review of Systems ROS Unobtainable: due to mental status EXAM Physical Exam Const Vital Signs: 03/07/24 03:42 03/07/24 05:51 Temperature 98.2 F Temperature Source Axillary Pulse Rate 77 72 Respiratory Rate 16 21 H Blood Pressure 99/47 L 124/55 H Blood Pressure Mean 64 78 Pulse Ox 95 90 Oxygen Delivery Method Nasal Cannula Nasal Cannula Oxygen Flow Rate (L/min) 2 Positive well developed and cachectic General Appearance ED: well developed and cachectic; Negative for pallor Nutritional Appearance: cachectic HEENT Reports dry mucous membranes HEENT Narrative: Mucous membranes are dry and tacky No tongue or lip swelling no oral lesions no airway edema or compromise No dried blood or active bleeding noted in the posterior pharynx Mouth ED: Yes dry mucous membranes Mouth: dry mucous membranes Neck supple Neck Narrative: No crepitance palpated Chest Wall palpation of chest normal Chest Narrative: No bony deformity or crepitance noted Resp normal respiratory effort and clear to auscultation bilaterally Resp Narrative: Breath sounds are diminished throughout but overall clear to auscultation without signs of respiratory distress Cardio Rate: other Other Details: Irregularly irregular rhythm with regular rate consistent with history of persistent atrial fibrillation GI non-tender, non-distended and no masses GI Narrative: Abdomen is soft nontender and nondistended with normal active bowel sounds. No voluntary guarding or rigidity or pulsatile mass. Patient has a PEG tube in place in the right upper abdomen the surrounding tissue is clean dry and intact. There is no bleeding noted throughout the PEG tube site. No secondary findings to suggest infection. No increased tympany noted Auscultation: normoactive bowel sounds Palpation: soft Extremity normal to inspection Neuro Neuro Narrative: Patient is at her baseline mental status per chart. She is lethargic but is protecting her airway and will respond to stimulation. There is no obvious focal neurologic deficit Psych Psych Narrative: Patient has a depressed/flat affect Skin no rashes or lesions noted and No skin turgor normal Skin Narrative: Capillary refills less than 3 seconds and skin turgor slightly increased General Skin Exam: Negative for pallor MDM MDM MDM Narrative Medical decision making narrative: Patient arrived to ER stable vitals and at her baseline mental status. Nursing reported an episode of coffee-ground emesis. The patient is on Eliquis and does have risk factor for this. Chart review reveals she was just discharged in the hospital in approximately last 12 hours and during her stay she had an EGD which showed a singular nonbleeding ulcer. Basic lab work was obtained and shows a stable hemoglobin and hematocrit normal bleeding times as well as platelet count and normal BUN going against internal bleeding. As there is concern for potential obstruction or perforation based on her recent procedure a KUB was obtained but this also revealed no acute findings. As the patient now has a PEG tube I did flush the PEG tube and it flushed easily and upon return there was some dark brown flecks which were sent to the lab for gastric testing. Lab does report this is positive for blood. Secondary to this I contacted the card painter Dr. Oscar. He states that this time as her BUN is normal her H&H is stable and her blood pressure is normotensive there is no need for readmission especially as she was scoped approximately 48 hours ago. He recommends her PPI be increased to twice a day and she hold her Eliquis as this is the most likely culprit for her bleeding this evening. Therefore this was conveyed to the fdc but as patient is hemodynamically stable without need for blood transfusion and she is just undergone a recent EGD there is no need for readmission and she is otherwise safe for discharge Lab Data Attestation: I reviewed the patient's lab results. Labs: Laboratory Results - last 24 hr 03/07/24 05:03 WBC 9.4 RBC 3.60 L Hgb 12.3 Hct 37.8 MCV 105.0 H MCH 34.2 H MCHC 32.5 RDW Std Deviation 50.7 H RDW Coeff of Robert 13.2 Plt Count 202 MPV 9.8 Immature Gran % (Auto) 0.500 Neut % (Auto) 82.2 H Lymph % (Auto) 8.2 L [place] % (Auto) 6.5 Eos % (Auto) 2.2 Baso % (Auto) 0.4 Absolute Neuts (auto) 7.8 H Absolute Lymphs (auto) 0.77 L Nucleated RBC % 0 PT 17.3 H INR 1.4 APTT 34.8 Sodium 139 Potassium 3.5 Chloride 104 Carbon Dioxide 30.0 Anion Gap 5 BUN 8 Creatinine 0.66 Estim Creat Clear Calc 56.47 Est GFR (MDRD) Af Amer 110 Est GFR (MDRD) Non-Af 91 BUN/Creatinine Ratio 12.2 Glucose 95 Calcium 9.3 Radiography Diagnostic Testing: KUB as interpreted by the emergency medicine physician reveals a nonobstructive nonspecific bowel gas pattern without perforation or free air Management Discussion w/another healthcare provider: 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 Discharge Plan Triage Chief Complaint: GI Bleed ED Provider: Dieter Mohan Dx/Rx/DC Orders Clinical Impression: PEG (percutaneous endoscopic gastrostomy) adjustment/replacement/removal, Dementia, Vomiting, Atrial fibrillation, persistent, Current use of longterm anticoagulation Instructions: Feeding Tube, ED Vomiting (Adult) Prescriptions: No Action diltiazem HCl [Cartia XT] 120 mg capsule,extended release 24hr 120 mg PO DINNER divalproex 250 mg tablet,delayed release (DR/EC) 250 mg PO BID Qty: 60 5RF acetaminophen 325 mg Tablet 650 mg G-tube Q6H PRN PRN (Reason: Pain 1-10 Or Fever >100.7) Qty: 0 0RF donepezil 10 mg Tablet 10 mg G-tube QHS Qty: 0 0RF metoclopramide HCl 5 mg Tablet 5 mg G-tube Q6H Qty: 0 0RF losartan 25 mg Tablet 25 mg G-tube QHS Qty: 0 0RF nystatin [Nyamyc] 100,000 unit/gram Powder 1 applic topical TID Qty: 0 0RF Protocol: *Topical Application Instructions APPLICATION INSTRUCTIONS: apply to groin lamotrigine 100 mg Tablet 300 mg G-tube BID Qty: 0 0RF menthol-zinc oxide [Calmoseptine] 0.44-20.6 % Ointment 1 applic topical TID Qty: 0 0RF Protocol: *Topical Application Instructions APPLICATION INSTRUCTIONS: apply to ramona buttocks Eliquis 5 mg Tablet 2.5 mg G-tube BID Qty: 0 0RF IV with Additives Jevity 1.5 1000 ML 20 mls/hr GT Increase as directed on admission paperwork Ordered By: Brijesh Chaney DO Last Taken: Unknown ondansetron 4 mg tablet,disintegrating 4 mg feeding tube Q8H Qty: 1 0RF clonazepam 0.5 mg tablet 0.5 mg feeding tube BID Qty: 5 0RF metoprolol tartrate 25 mg tablet 12.5 mg feeding tube BID Qty: 1 0RF paroxetine HCl [Paxil] 10 mg/5 mL suspension 10 mg feeding tube DAILY Qty: 250 0RF omeprazole 40 mg capsule,delayed release(DR/EC) 40 mg feeding tube DAILY Qty: 1 0RF Primary Care Provider: Nahomy Bettencourt Referrals: Nahomy Bettencourt MD [Primary Care Provider] - Activity Restrictions/Additional Instructions: The patient just underwent an EGD which showed a singular nonbleeding ulcer. Therefore the discoloration noticed in her emesis today is most likely from her Eliquis use. The patient's case was discussed with the card painter and at this time it is recommended that her Eliquis be held for the next 1 to 2 weeks and her omeprazole/PPI be increased to 40 mg twice a day. Print Language: Syrian Disposition Disposition: Home, Self Care
[2024-03-07] MEDS: Pantoprazole Sodium 80 MG in 0.9% Normal Saline (50mL Bag) 15 ML 420 MG IV BOLUS (06:33)
[2024-03-07 07:00] VITALS: BP 129/80; PULSE 76; PULSE 83; RESP 20; O2SAT 98
--- NOTE | 2024-03-07 07:16 | ED.RN ---
Spoke to [facility] updating on pt's dispo status
[2024-03-07 08:58] VITALS: BP 148/68; PULSE 82; RESP 16; TEMP 36.6; O2SAT 99
== END 2024-03-07 08:59 | disposition skilled nursing facility (03) ==
PROVIDERS: Emergency Provider Emergency Medicine; PCP Family Medicine; Visit Provider Emergency Medicine
DX: R11.10 Vomiting, unspecified (principal); Z93.1 Gastrostomy status; G20.A1 Parkinson's disease without dyskinesia, without mention of fluctuations; F02.80 Dementia in other diseases classified elsewhere, unspecified severity, without behavioral disturbance, psychotic disturbance, mood disturbance, and anxiety; I48.19 Other persistent atrial fibrillation; I10 Essential (primary) hypertension; I25.10 Atherosclerotic heart disease of native coronary artery without angina pectoris; Z79.01 Long term (current) use of anticoagulants; Z87.891 Personal history of nicotine dependence
CPT/HCPCS: 74018; 80048; 82271; 85025; 85610; 85730; 96374; 99284; A4216; J3490

== ENCOUNTER 2024-03-08 20:53 | Emergency (ER) | payer MEDICARE, SELFPAY ==
[2024-03-08 20:54] VITALS: BP 128/71; PULSE 82; RESP 20; TEMP 36.7; O2SAT 92; BMI 25.3
--- OUTSIDE RECORDS SUMMARY | 2024-03-08 21:01 | XMS RPT_ITS | CCD ---
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 Name Role Phone Hernán Stella He Unavailable Unavailable Schuyler LYNN, Beka Franklin Unavailable [facility] Nurse Unavailable Unavailable Afshin Liriano Unavailable Unavailable Judy LYNN, [facility] Primary Care Provider [phone] Zachary Kim MD Primary Care Provider [phone] Judy LYNN, [facility] Primary Care Provider Judy LYNN, [facility] Primary Care Provider [phone] ALA, ZACHARY Primary Care Unavailable EPHRAIM TATE [...] / polymyxin b Drug Allergy 07-25-2014 rash [facility] Work Phone: (20 sources) codeine; Translations: [CODEINE] Drug Allergy 07-23-2014 Other: See Comments [facility] Work Phone: (20 sources) bacitracin / neomycin / polymyxin b; Translations: [NEOMYCIN-BACITR ACNZN-POLYMYXNB] Drug Allergy 07-25-2014 Rash [facility] (20 sources) levETIRAcetam; Translations: [LEVETIRACETAM] Drug Allergy 07-24-2019 GI Upset [facility] (20 sources) nickel; Translations: [NICKEL] Drug Allergy 06-25-2019 Unknown [facility] Medications Current Medications Medication Drug Class(es) Dates [...] on above: Take 1 tablet by handy every 8 hours as needed for pain [...] on above: Take 2 tablets by mo [facility] every 6 hours as needed for pain. [...] ASCORBIC ACID CR-TABS Maribell Arias PA-C 09-06-2016 [facility] ([id number]) 0 09/06/2016 Active Start: 09-06-2016 take 1 tablet by handy th once daily VITAMIN C CR CR-TABS One tablet by mouth daily ASCORBIC ACID CR-TABS Maribell Arias PA-C Comment on above: Ascorbic Acid VITAMI N C CR CR-TABS One tablet by mouth daily ASCORBIC ACID CR-TABS Maribell Arias PA-C 09-06-2016 [facility] ([id number]) aspirin 325 mg delayed release oral tablet (20 sources) Platelet Aggregation Inhibitor, Nonsteroidal Anti-inflammatory Drug Start: 03-08-2016 take 1 tablet by mouth once daily ASPIRIN EC 325 MG TBEC One tablet by mouth daily ASPIRIN [id number] Beka Payan MD Start: 07-23-2014 End: 09-03-2016 take 1 tablet by mouth once daily ASPIRIN 81 MG TABS One tablet by mouth daily (STOP) ASPIRIN 18546290848 Beka Payan MD take 1 tablet by [...] on above: Take 1 capsule by mo [facility] once daily. 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) take 1 capsule by mouth once daily 90 capsule 0 03/31/2022 Active Comment on above: take 1 capsule by mo [facility] once daily 0.4 ml enoxaparin sodium 100 [...] CAPS One tablet by mouth daily GABAPENTIN 64235552555 Coleen Erwin RN Start: 07-23-2014 take 1 tablet by handy th three times daily GABAPENTIN 300 MG CAPS One tablet by mouth three times daily GABAPENTIN 03945141213 Maribell Arias PA-C Start: 07-23-2014 End: 03-07-2017 take 1 tablet by mouth once daily at bedtime GABAPENTIN 600 MG TABS One tablet by mouth daily @ bedtime GABAPENTIN 38173819085 Beka Payan MD glucose 0.45 mg/mg oral gel (6 sources) Start: 07-28-2022 dextrose (TRUEPLUS) 15 gram/32 mL oral gel Take 32 mL by mouth as needed. 0 07/28/2022 Active Comment on above: Take 32 mL by mouth as needed. ketoconazole 20 mg/ml topical cream (8 sources) Azole Antifungal Start: 05-17-2019 ketoconazole (NIZORAL) 2 % cream B-EVVSMHHHIQVJ-KFUIA -B12-B6 CAPS (4 sources) Start: 03-07-2017 take 1 tablet by mouth once daily METANX CAPS One tablet by mouth daily I-YDZDRYDOEGIG-GULJ E-B12-B6 CAPS 55819426022 Beka Payan MD lactobacillus rhamnosus gg 28505734165 unt oral capsule (6 sources) Start: 07-28-2022 take 1 capsule by mouth twice daily lactobacillus rhamnosus (CULTURELLE) 10 billion cell capsule Take 1 capsule by mouth twice daily. 0 07/28/2022 Active Comment on above: Take 1 capsule by [facility] twice daily. lamoTRIgine 100 mg oral tablet [...] 145 MCG CAPS every other day LINACLOTIDE 68444041780 Maribell Arias PA-C linaclotide (ZANDER ZESS) 145 [...] TABS One tablet by mouth daily LISINOPRIL 49639993619 Coleen Erwin RN take 5 mg by [...] One tablet by mouth daily MAGNESIUM OXIDE 48581901652 Maribell Arias PA-C mecobalamin 1 mg chewable [...] at bedtime. Take 2 tablets by mo [facility] daily at bedtime. metFORMIN hydrochloride 500 mg [...] tablet by mouth twice daily NEBIVOLOL HCL 22153394732 Beka Payan MD Start: 07-23-2014 take 1 tablet by handy th once daily BYSTOLIC 5 MG TABS One tablet by mouth daily NEBIVOLOL HCL 42233876904 Beka Payan MD Start: 07-23-2014 take 1 tablet by handy once daily BYSTOLIC 10 MG TABS One tablet by mouth daily NEBIVOLOL HCL 03774168937 Beka Payan MD nitroglycerin 0.4 mg subling [...] CAPS One tablet by mouth daily PREGABALIN 24976584476 Beka Payan MD Comment on above: Take 1 capsule by mo [facility] three times daily for 90 days. Take 1 capsule by mo [facility] three times daily as needed for up to 180 days. riboflavin 100 mg oral tablet (4 sources) Start: 02-03-2015 take 1 tablet by mouth once daily VITAMIN B-2 100 MG TABS One tablet by mouth daily RIBOFLAVIN 58397716639 Maribell Arias PA-C SENNOSIDES-DOCUSATE SODIUM (8 sources) Start: 07-23-2014 End: 02-03-2015 take 1 tablet by mouth once daily [facility] SENNA PLUS 8.6-50 MG TABS One tablet by mouth daily SENNOSIDES-DOCUSATE SODIUM 25451527103 Maribell Arias PA-C Start: 07-23-2014 take 1 tablet by handy th once daily [facility] SENNA PLUS 8.6-50 MG TABS One tablet by mouth daily SENNOSIDES-DOCUSATE SODIUM 13842066429 Coleen aikenokot-s (6 sources) Start: 02-03-2015 End: 09-06-2016 take 1 tablet by mouth once daily as needed STOOL SOFTENER 100 MG TABS One tablet by mouth daily as needed DOCUSATE SODIUM 19875555866 Maribell Arias PA-C Start: 02-03-2015 take 1 tablet by handy th once daily as needed STOOL SOFTENER 100 MG TABS One tablet by mouth daily as needed DOCUSATE SODIUM 67216808562 Maribell Arias PA-C tamsulosin hydrochloride 0.4 mg [...] by mouth daily as needed TRAMADOL HCL 34936781249 Beka Payan MD take 1 tablet by [...] TABS One tablet by mouth daily CYANOCOBALAMIN 55427537900 Coleen Erwin RN 07-23-2014 [facility] ([id number]) 0 07/23/2014 Active Comment on above: Vitamin B 12 VITAMIN B-12 1000 MCG TABS One tablet by mouth daily CYANOCOBALAMIN 50068373539 Coleen Erwin RN 07-23-2014 [facility] ([id number]) Take 1,000 mcg by [facility] once daily. vitamin b6 100 mg oral tablet (8 sources) Start: 02-04-20 15 End: 09-07-19 17 take 1 tablet by mouth once daily VITAMIN B-6 100 MG TABS One tablet by mouth daily PYRIDOXINE HCL 92899282290 Maribell Arias PA-C vitamin d 1000 unt oral tablet (4 sources) Start: 07-24-19 15 take 1 tablet by mouth once daily VITAMIN D 1000 UNIT TABS One tablet by mouth daily CHOLECALCIFEROL 32391198126 Coleen Erwin RN Problems Active Problems Problem [...] hypoxia; Translations: [Acute respiratory failure with hypoxia ([facility])] Onset: 07-16-2022 Episodic Syncope (1 source) Syncope and collapse; Translations: [Syncope and collapse] Episodic Unclassified (8 sources) Long-term 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; Translations: [Other jail (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] Onset: 07-23-2014 08-06-2015 Past [...] Test Name Value Interpretation Reference Range Facility [facility] 09-08-2022 [facility] Normal [facility] 08-19-2022 [facility] Normal [facility] OPERATIVE NOon 08-19-2022 OPERATIVE NO [facility] ISABELLE MEDRANO ([id number]) 1940 F Date Time Provider Department 08/11/22 ALDEN HUGHES NE50MN During your visit today, we recorded the following information about you: Lorena Murray 08/11/2022 8:11 AM Signed OUTSIDE LAB REPORT FACILITY NAME [facility] PHONE/FAX [phone] COLLECTION DATE AND TIME: 08/05/22 0525 Uploaded to [facility] Hardy Oneal RN 08/11/2022 9:01 AM [...] KEPPRA (LEVETIRACETAM) 07/24/2019 8 - GI Upset [id number] YMYXNB 07/25/2014 2 - Rash CODEINE 07/29/2015 14 - Other: See Comments Comments: makes me ill NICKEL 06/25/2019 16 - Unknown Date Reviewed: 07/27/2022 Reviewed by: Keri Petit RN - Fully Assessed Reason for Visit: Outside Labs Results [437] Cmt: [place]/Lamictal Prescriptions as of 08/11/2022 - dextrose (TRUEPLUS) [...] Encounter Status:Closed by HARDY [facility]AL [facility] Telephone (NE50MN) -------- ISABELLE MEDRANO ([id number]) 1940 F Date Time Provider Department 08/05/22 ALDEN HUGHES NE50MN During your visit today, we recorded the following information about you: Zuleyma Matthew Sec 08/05/2022 2:35 PM Signed General call : Full name of person calling: Karol Ann CNP Relationship to patient: [facility] Phone # : [phone] Reason for call: Per request of Hardy Oneal RN, Lamictal level was drawn today. Results are expected in 3 - 5 days. Fax number was given. Patient of Dr. Saul Oneal RN 08/06/2022 10:02 AM Signed Noted SHANTE Rasconcy Trevor 08/10/2022 3:50 PM Signed Anca Ann w/ [place] [employer] re Lamictal results; will fax results. Pt had seizure 5 days ago; [phone]. Allergies As of Date: 08/05/2022 Noted Allergy Reaction KEPPRA (LEVETIRACETAM) 07/24/2019 8 - GI Upset [id number]-[id number] YMYXNB 07/25/2014 2 - Rash CODEINE 07/29/2015 14 - Other: See Comments Comments: makes me ill NICKEL 06/25/2019 16 - Unknown Date Reviewed: 07/27/2022 Reviewed by: Keri Petit RN - Fully Assessed Reason for Visit: Other [Other] Cmt: Call from [facility] [employer] [facility] about Lamictal level being drawn Prescriptions [...] 08/06/22 [facility] Babak 08-04-2022 RAUL Telephone (PATRICK) -------- ISABELLE MEDRANO ([id number]) 1940 F Date Time Provider Department 08/04/22 KASH SILVESTRE, EPHRAIM WINN During your visit today, we recorded the following information about you: Maria T Barba 08/04/2022 11:19 AM Signed [facility] calling to notify office that pt had a seizure. Please contact her CIVIL RIGHTS INVESTIGATOR below. Anca Ann, CROW [phone] Coco Saha LPN 08/04/2022 12:12 PM Signed I am going to call [facility] for information to give to you for a better assessment. INDIGO Dominguez LPN 08/04/2022 12:12 PM Signed Called and spoke with Lia Ann CNP at [place]. This is what happened: Pt had not [...] morning. You can call Lia back at [phone]- cell phone. Hardy Oneal RN 08/04/2022 4:08 PM Signed I spoke with Lia. We discussed patient having LTG level drawn tomorrow a.m. Reviewed trough level instructions. She will call office with results. Hardy Oneal RN Allergies As of Date: 08/04/2022 Noted Allergy Reaction KEPPRA (LEVETIRACETAM) 07/24/2019 8 - GI Upset [id number] YMYXNB 07/25/2014 2 - Rash CODEINE 07/29/2015 [...] Status:Closed by HARDY ONEAL on 08/04/22 Normal [facility] CNPNon 07-30-2022 CNPN Normal [facility] CNPNon 07-29-2022 CNPN Normal [facility] ALLIED HEALTHon 07-28-2022 ALLIED HEALTH Normal [facility] CASE MANAGEMon 07-28-2022 CASE MANAGEM Normal [facility] CBC W Auto Differential pane l (Bld)on 07-28-2022 Basophils (Bld) [#/Vol] 0.05 10*3/uL Normal <0.11 [facility] Comment on above: Order Comment: Speci men Type: BLOOD SPECIMENOrdering Facility: [facility] Address: [address] [place] [address] Performed By: #### 5 7021-8 ####[facility] LABORATORYCLIA [id number] [place] [address] [place] Basophils/100 WBC (Bld) 0.6 % Normal [facility] Comment on above: Order Comment: Speci men Type: BLOOD SPECIMENOrdering Facility: [facility] Address: [address] [place] [address] Performed By: #### 5 7021-8 ####[facility] LABORATORYCLIA [id number] [place] [address] [place] Differential cell count method Nom (Bld) Auto Normal [facility] Comment on above: Order Comment: Speci men Type: BLOOD SPECIMENOrdering Facility: [facility] Address: [address] [place] [address] Performed By: #### 5 7021-8 ####[facility] LABORATORYCLIA [id number] [place] [address] [place] Eosinophils (Bld) [#/Vol] 0.36 10*3/uL Normal <0.46 [facility] Comment on above: Order Comment: Speci men Type: BLOOD SPECIMENOrdering Facility: [facility] Address: [address] [place] [address] Performed By: #### 5 7021-8 ####[facility] LABORATORYCLIA [id number] [address] OF [facility] Eosinophils/100 WBC (Bld) 4.3 % Normal [facility] Comment on above: Order Comment: Speci men Type: BLOOD SPECIMENOrdering Facility: [facility] Address: [address] [place] [address] Performed By: #### 5 7021-8 ####[facility] LABORATORYCLIA [id number] [address] [place] Erythrocyte distribution width (RBC) [Ratio] 16.0 % High 11.5-15.0 [facility] Comment on above: Order Comment: Speci men Type: BLOOD SPECIMENOrdering Facility: [facility] Address: [address] [place] [address] Performed By: #### 5 7021-8 ####[facility] LABORATORYCLIA [id number] [address] Hematocrit (Bld) [Volume fraction] 34.0 % Low 36.0-46.0 [facility] Comment on above: Order Comment: Speci men Type: BLOOD SPECIMENOrdering Facility: [facility] Address: [address] [place] [address] Performed By: #### 5 7021-8 ####[facility] LABORATORYCLIA [id number] [address] [place] Hemoglobin (Bld) [Mass/Vol] 10.2 g/dL Low 11.5-15.5 [facility] Comment on above: Order Comment: Speci men Type: BLOOD SPECIMENOrdering Facility: [facility] Address: [address] [place] [address] Performed By: #### 5 7021-8 ####[facility] LABORATORYCLIA [id number] [address] [place] Immature granulocytes (Bld) [#/Vol] 0.07 10*3/uL Normal <0.10 [facility] Comment on above: Order Comment: Speci men Type: BLOOD SPECIMENOrdering Facility: [facility] Address: [address] [place] [address] Performed By: #### 5 7021-8 ####[facility] LABORATORYCLIA [id number] [address] STATES OF [facility] Immature granulocytes/100 WBC (Bld) 0.8 % Normal [facility] Comment on above: Order Comment: Speci men Type: BLOOD SPECIMENOrdering Facility: [facility] Address: [address] [place] [address] Performed By: #### 5 7021-8 ####[facility] LABORATORYCLIA [id number] [address] [place] Lymphocytes (Bld) [#/Vol] 1.16 10*3/uL Normal 1.00-4.00 [facility] Comment on above: Order Comment: Speci men Type: BLOOD SPECIMENOrdering Facility: [facility] Address: [address] [place] [address] Performed By: #### 5 7021-8 ####[facility] LABORATORYCLIA [id number] [address] Lymphocytes/100 WBC (Bld) 13.7 % Normal [facility] Comment on above: Order Comment: Speci men Type: BLOOD SPECIMENOrdering Facility: [facility] Address: [address] [place] [address] Performed By: #### 5 7021-8 ####[facility] LABORATORYCLIA [id number] [address] [place] MCH (RBC) [Entitic mass] 30.6 pg Normal 26.0-34.0 [facility] Comment on above: Order Comment: Speci men Type: BLOOD SPECIMENOrdering Facility: [facility] Address: [address] [place] [address] Performed By: #### 5 7021-8 ####[facility] LABORATORYCLIA [id number] [address] STATES [facility] MCHC (RBC) [Mass/Vol] 30.0 g/dL Low 30.5-36.0 [facility] Comment on above: Order Comment: Speci men Type: BLOOD SPECIMENOrdering Facility: [facility] Address: [address] [place] [address] Performed By: #### 5 7021-8 ####[facility] LABORATORYCLIA [id number] [address] [place] MCV (RBC) [Entitic vol] 102.1 fL High 80.0-100.0 [facility] Comment on above: Order Comment: Speci men Type: BLOOD SPECIMENOrdering Facility: [facility] Address: [address] [place] [address] Performed By: #### 5 7021-8 ####[facility] LABORATORYCLIA [id number] [address] [place] Monocytes (Bld) [#/Vol] 0.72 10*3/uL Normal <0.87 [facility] Comment on above: Order Comment: Speci men Type: BLOOD SPECIMENOrdering Facility: [facility] Address: [address] [place] [address] Performed By: #### 5 7021-8 ####[facility]ORATORYCLIA [id number] [address] Monocytes/100 WBC (Bld) 8.5 % Normal [facility] Comment on above: Order Comment: Speci men Type: BLOOD SPECIMENOrdering Facility: [facility] Address: [address] [place] [address] Performed By: #### 5 7021-8 ####[facility] LABORATORYCLIA [id number] [address] [place] Neutrophils (Bld) [#/Vol] 6.08 10*3/uL Normal 1.45-7.50 [facility] Comment on above: Order Comment: Speci men Type: BLOOD SPECIMENOrdering Facility: [facility] Address: [address] [place] [address] Performed By: #### 5 7021-8 ####[facility] LABORATORYCLIA [id number] [address] Neutrophils/100 WBC (Bld) 72.1 % Normal [facility] Comment on above: Order Comment: Speci men Type: BLOOD SPECIMENOrdering Facility: [facility] Address: [address] [place] [address] Performed By: #### 5 7021-8 ####[facility] LABORATORYCLIA [id number] [address] [place] Nucleated RBC (Bld) [#/Vol] 10*3/uL Normal <0.01 [facility] Comment on above: Order Comment: Speci men Type: BLOOD SPECIMENOrdering Facility: [facility] Address: [address] [place] [address] Performed By: #### 5 7021-8 ####[facility] LABORATORYCLIA [id number] [address] STATES [facility] Nucleated RBC/100 WBC (Bld) [Ratio] 0.0 /100 WBC Normal [facility] Comment on above: Order Comment: Speci men Type: BLOOD SPECIMENOrdering Facility: [facility] Address: [address] [place] [address] Performed By: #### 5 7021-8 ####[facility] LABORATORYCLIA [id number] [address] [place] Platelet mean volume (Bld) [Entitic vol] 9.2 fL Normal 9.0-12.7 [facility] Comment on above: Order Comment: Speci men Type: BLOOD SPECIMENOrdering Facility: [facility] Address: [address] [place] [address] Performed By: #### 5 7021-8 ####[facility]ORATORYCLIA [id number] [address] [place] Platelets (Bld) [#/Vol] 297 10*3/uL Normal 150-400 [facility] Comment on above: Order Comment: Speci men Type: BLOOD SPECIMENOrdering Facility: [facility] Address: [address] [address] Performed By: #### 5 7021-8 ####[facility] LABORATORYCLIA [id number] [place] [address] [place] RBC (Bld) [#/Vol] 3.33 10*6/uL Low 3.90-5.20 [facility] Comment on above: Order Comment: Speci men Type: BLOOD SPECIMENOrdering Facility: [facility] Address: [address] [place] [address] Performed By: #### 5 7021-8 ####[facility]ORATORYCLIA [id number] [address] [place] WBC (Bld) [#/Vol] 8.44 10*3/uL Normal 3.70-11.00 [facility] Comment on above: Order Comment: Speci men Type: BLOOD SPECIMENOrdering Facility: [facility] Address: [address] [place] [address] Performed By: #### 5 7021-8 ####[facility]ORATORYCLIA [id number] [address] [place] CNDSon 07-28-2022 CNDS Normal [facility] XR CHEST 1V FRONTALon 2022 XR CHEST 1V FRONTAL Normal [facility] ALLIED HEALTHon 07-27-2022 ALLIED HEALTH Normal [facility] CASE MANAGEMon 07-27-2022 CASE MANAGEM Normal [facility] CASE MANAGEM Normal [facility] CASE MANAGEM Normal [facility] CBC W Auto Differential pane l (Bld)on 07-27-2022 Basophils (Bld) [#/Vol] 0.04 10*3/uL Normal <0.11 [facility] Comment on above: Order Comment: Speci men Type: BLOOD SPECIMENOrdering Facility: [facility] Address: [address] [place] [address] Performed By: #### 5 7021-8 ####[facility]ORATORYCLIA [id number] [address] Basophils/100 WBC (Bld) 0.4 % Normal [facility] Comment on above: Order Comment: Speci men Type: BLOOD SPECIMENOrdering Facility: [facility] Address: [address] [place] [address] Performed By: #### 5 7021-8 ####[facility]ORATORYCLIA [id number] [address] [place] Differential cell count method Nom (Bld) Auto Normal [facility] Comment on above: Order Comment: Speci men Type: BLOOD SPECIMENOrdering Facility: [facility] Address: [address] [place] [address] Performed By: #### 5 7021-8 ####[facility]ORATORYCLIA [id number] [address] [place] Eosinophils (Bld) [#/Vol] 0.24 10*3/uL Normal <0.46 [facility] Comment on above: Order Comment: Speci men Type: BLOOD SPECIMENOrdering Facility: [facility] Address: [address] [place] [address] Performed By: #### 5 7021-8 ####[facility]ORATORYCLIA [id number] [address] Eosinophils/100 WBC (Bld) 2.5 % Normal [facility] Comment on above: Order Comment: Speci men Type: BLOOD SPECIMENOrdering Facility: [facility] Address: [address] [place] [address] Performed By: #### 5 7021-8 ####[facility]ORATORYCLIA [id number] [address] Erythrocyte distribution width (RBC) [Ratio] 15.7 % High 11.5-15.0 [facility] Comment on above: Order Comment: Speci men Type: BLOOD SPECIMENOrdering Facility: [facility] Address: [address] [address] Performed By: #### 5 7021-8 ####[facility] LABORATORYCLIA [id number] [address] OF [facility] Hematocrit (Bld) [Volume fraction] 31.6 % Low 36.0-46.0 [facility] Comment on above: Order Comment: Speci men Type: BLOOD SPECIMENOrdering Facility: [facility] Address: [address] [place] [address] Performed By: #### 5 7021-8 ####[facility]ORATORYCLIA [id number] [address] [place] Hemoglobin (Bld) [Mass/Vol] 9.8 g/dL Low 11.5-15.5 [facility] Comment on above: Order Comment: Speci men Type: BLOOD SPECIMENOrdering Facility: [facility] Address: [address] [place] [address] Performed By: #### 5 7021-8 ####[facility]ORATORYCLIA [id number] [address] [place] Immature granulocytes (Bld) [#/Vol] 0.09 10*3/uL Normal <0.10 [facility] Comment on above: Order Comment: Speci men Type: BLOOD SPECIMENOrdering Facility: [facility] Address: [address] [place] [address] Performed By: #### 5 7021-8 ####[facility]ORATORYCLIA [id number] [address] [place] Immature granulocytes/100 WBC (Bld) 1.0 % Normal [facility] Comment on above: Order Comment: Speci men Type: BLOOD SPECIMENOrdering Facility: [facility] Address: [address] [place] [address] Performed By: #### 5 7021-8 ####[facility]ORATORYCLIA [id number] [address] [place] Lymphocytes (Bld) [#/Vol] 1.34 10*3/uL Normal 1.00-4.00 [facility] Comment on above: Order Comment: Speci men Type: BLOOD SPECIMENOrdering Facility: [facility] Address: [address] [place] [address] Performed By: #### 5 7021-8 ####[facility] LABORATORYCLIA [id number] [address] Lymphocytes/100 WBC (Bld) 14.2 % Normal [facility] Comment on above: Order Comment: Speci men Type: BLOOD SPECIMENOrdering Facility: [facility] Address: [address] [place] [address] Performed By: #### 5 7021-8 ####[facility] LABORATORYCLIA [id number] [address] [place] MCH (RBC) [Entitic mass] 31.2 pg Normal 26.0-34.0 [facility] Comment on above: Order Comment: Speci men Type: BLOOD SPECIMENOrdering Facility: [facility] Address: [address] [place] [address] Performed By: #### 5 7021-8 ####[facility] LABORATORYCLIA [id number] [address] STATES [facility] MCHC (RBC) [Mass/Vol] 31.0 g/dL Normal 30.5-36.0 [facility] Comment on above: Order Comment: Speci men Type: BLOOD SPECIMENOrdering Facility: [facility] Address: [address] [place] [address] Performed By: #### 5 7021-8 ####[facility] LABORATORYCLIA [id number] [address] [place] MCV (RBC) [Entitic vol] 100.6 fL High 80.0-100.0 [facility] Comment on above: Order Comment: Speci men Type: BLOOD SPECIMENOrdering Facility: [facility] Address: [address] [place] [address] Performed By: #### 5 7021-8 ####[facility] LABORATORYCLIA [id number] [place] [address] [place] Monocytes (Bld) [#/Vol] 0.74 10*3/uL Normal <0.87 [facility] Comment on above: Order Comment: Speci men Type: BLOOD SPECIMENOrdering Facility: [facility] Address: [address] [address] Performed By: #### 5 7021-8 ####[facility] LABORATORYCLIA [id number] [address] [place] Monocytes/100 WBC (Bld) 7.9 % Normal [facility] Comment on above: Order Comment: Speci men Type: BLOOD SPECIMENOrdering Facility: [facility] Address: [address] [place] [address] Performed By: #### 5 7021-8 ####[facility] LABORATORYCLIA [id number] [place] [address] [place] Neutrophils (Bld) [#/Vol] 6.97 10*3/uL Normal 1.45-7.50 [facility] Comment on above: Order Comment: Speci men Type: BLOOD SPECIMENOrdering Facility: [facility] Address: [address] [place] [address] Performed By: #### 5 7021-8 ####[facility] LABORATORYCLIA [id number] [address] [place] Neutrophils/100 WBC (Bld) 74.0 % Normal [facility] Comment on above: Order Comment: Speci men Type: BLOOD SPECIMENOrdering Facility: [facility] Address: [address] [address] Performed By: #### 5 7021-8 ####[facility] LABORATORYCLIA [id number] [place] [address] [place] Nucleated RBC (Bld) [#/Vol] 10*3/uL Normal <0.01 [facility] Comment on above: Order Comment: Speci men Type: BLOOD SPECIMENOrdering Facility: [facility] Address: [address] [place] [address] Performed By: #### 5 7021-8 ####[facility] LABORATORYCLIA [id number] [address] [place] Nucleated RBC/100 WBC (Bld) [Ratio] 0.0 /100 WBC Normal [facility] Comment on above: Order Comment: Speci men Type: BLOOD SPECIMENOrdering Facility: [facility] Address: [address] [place] [address] Performed By: #### 5 7021-8 ####[facility] LABORATORYCLIA [id number] [place] [address] [place] Platelet mean volume (Bld) [Entitic vol] 9.3 fL Normal 9.0-12.7 [facility] Comment on above: Order Comment: Speci men Type: BLOOD SPECIMENOrdering Facility: [facility] Address: [address] [place] [address] Performed By: #### 5 7021-8 ####[facility] LABORATORYCLIA [id number] [address] [place] Platelets (Bld) [#/Vol] 318 10*3/uL Normal 150-400 [facility] Comment on above: Order Comment: Speci men Type: BLOOD SPECIMENOrdering Facility: [facility] Address: [address] [place] [address] Performed By: #### 5 7021-8 ####[facility] LABORATORYCLIA [id number] [place] [address] [place] RBC (Bld) [#/Vol] 3.14 10*6/uL Low 3.90-5.20 [facility] Comment on above: Order Comment: Speci men Type: BLOOD SPECIMENOrdering Facility: [facility] Address: [address] [place] [address] Performed By: #### 5 7021-8 ####[facility] LABORATORYCLIA [id number] [place] [address] [place] WBC (Bld) [#/Vol] 9.42 10*3/uL Normal 3.70-11.00 [facility] Comment on above: Order Comment: Speci men Type: BLOOD SPECIMENOrdering Facility: [facility] Address: [address] [place] [address] Performed By: #### 5 7021-8 ####[facility] LABORATORYCLIA [id number] [place] [address] [place] CONSULT PROGon 07-27-2022 CONSULT PROG Normal [facility] FLUABV+SARS-CoV-2+RSV Pnl Re sp AVRIL+probeon 07-27-2022 FLUABV+SARS-CoV-2+RS V Pnl Resp AVRIL+probe Normal [facility] Comment on above: Performed By: #### 9 5941-1 ####[facility] LABORATORYCLIA [id number] [place] [address] [place] NUTRITIONon 07-27-2022 NUTRITION Normal [facility] XR CHEST 1V FRONTALon 2022 XR CHEST 1V FRONTAL Normal [facility] ALLIED HEALTHon 07-26-2022 ALLIED HEALTH Normal [facility] ALLIED HEALTH Normal [facility] CASE MANAGEMon 07-26-2022 CASE MANAGEM Normal [facility] CBC panel Auto (Bld)on 07-26 Erythrocyte distribution width (RBC) [Ratio] 15.1 % High 11.5-15.0 [facility] Comment on above: Order Comment: Speci men Type: BLOOD SPECIMENOrdering Facility: [facility] Address: [address] [place] [address] Performed By: #### 5 8410-2 ####[facility] LABORATORYCLIA [id number] [address] [place] Hematocrit (Bld) [Volume fraction] 31.9 % Low 36.0-46.0 [facility] Comment on above: Order Comment: Speci men Type: BLOOD SPECIMENOrdering Facility: [facility] Address: [address] [place] [address] Performed By: #### 5 8410-2 ####[facility] LABORATORYCLIA [id number] [address] Hemoglobin (Bld) [Mass/Vol] 9.8 g/dL Low 11.5-15.5 [facility] Comment on above: Order Comment: Speci men Type: BLOOD SPECIMENOrdering Facility: [facility] Address: [address] [place] [address] Performed By: #### 5 8410-2 ####[facility] LABORATORYCLIA [id number] [address] MCH (RBC) [Entitic mass] 30.8 pg Normal 26.0-34.0 [facility] Comment on above: Order Comment: Speci men Type: BLOOD SPECIMENOrdering Facility: [facility] Address: [address] [place] [address] Performed By: #### 5 8410-2 ####[facility] LABORATORYCLIA [id number] [address] MCHC (RBC) [Mass/Vol] 30.7 g/dL Normal 30.5-36.0 [facility] Comment on above: Order Comment: Speci men Type: BLOOD SPECIMENOrdering Facility: [facility] Address: [address] [place] [address] Performed By: #### 5 8410-2 ####[facility] LABORATORYCLIA [id number] [address] MCV (RBC) [Entitic vol] 100.3 fL High 80.0-100.0 [facility] Comment on above: Order Comment: Speci men Type: BLOOD SPECIMENOrdering Facility: [facility] Address: [address] [place] [address] Performed By: #### 5 8410-2 ####[facility]ORATORYCLIA [id number] [address] Nucleated RBC (Bld) [#/Vol] 10*3/uL Normal <0.01 [facility] Comment on above: Order Comment: Speci men Type: BLOOD SPECIMENOrdering Facility: [facility] Address: [address] [address] Performed By: #### 5 8410-2 ####[facility] LABORATORYCLIA [id number] [address] Platelet mean volume (Bld) [Entitic vol] 9.0 fL Normal 9.0-12.7 [facility] Comment on above: Order Comment: Speci men Type: BLOOD SPECIMENOrdering Facility: [facility] Address: [address] [address] Performed By: #### 5 8410-2 ####[facility] LABORATORYCLIA [id number] [address] [place] Platelets (Bld) [#/Vol] 334 10*3/uL Normal 150-400 [facility] Comment on above: Order Comment: Speci men Type: BLOOD SPECIMENOrdering Facility: [facility] Address: [address] [address] Performed By: #### 5 8410-2 ####[facility] LABORATORYCLIA [id number] [address] [place] RBC (Bld) [#/Vol] 3.18 10*6/uL Low 3.90-5.20 [facility] Comment on above: Order Comment: Speci men Type: BLOOD SPECIMENOrdering Facility: [facility] Address: [address] [place] [address] Performed By: #### 5 8410-2 ####[facility] LABORATORYCLIA [id number] [address] [place] WBC (Bld) [#/Vol] 10.79 10*3/uL Normal 3.70-11.00 [facility] Comment on above: Order Comment: Speci men Type: BLOOD SPECIMENOrdering Facility: [facility] Address: [address] [place] [address] Performed By: #### 5 8410-2 ####[facility] LABORATORYCLIA [id number] [address] Magnesium SerPl-mCncon 07-26 Magnesium [Mass/Vol] 2.0 mg/dL Normal 1.7-2.3 [facility] Comment on above: Order Comment: Speci men Type: BLOOD SPECIMENOrdering Facility: [facility] Address: [address] [place] [address] Performed By: #### 1 9123-9, 94253-5 ####[facility]ORATORYCLIA [id number] [address] [place] Renal function [facility] panelon 07-26-2022 Albumin [Mass/Vol] 3.0 g/dL Low 3.9-4.9 [facility] Comment on above: Order Comment: Speci men Type: BLOOD SPECIMENOrdering Facility: [facility] Address: [address] [place] [address] Performed By: #### 1 9123-9, 18072-9 ####[facility] LABORATORYCLIA [id number] [place] [address] [place] Anion gap [Moles/Vol] 11 mmol/L Normal 9-18 [facility] Comment on above: Order Comment: Speci men Type: BLOOD SPECIMENOrdering Facility: [facility] Address: [address] [place] [address] Performed By: #### 1 9123-9, 66081-4 ####[facility] LABORATORYCLIA [id number] [place] [address] [place] Calcium [Mass/Vol] 8.7 mg/dL Normal 8.5-10.2 [facility] Comment on above: Order Comment: Speci men Type: BLOOD SPECIMENOrdering Facility: [facility] Address: [address] [place] [address] Performed By: #### 1 9123-9, 94525-7 ####[facility]ORATORYCLIA [id number] [place] [address] [place] Chloride [Moles/Vol] 103 mmol/L Normal 97-105 [facility] Comment on above: Order Comment: Speci men Type: BLOOD SPECIMENOrdering Facility: [facility] Address: [address] [address] Performed By: #### 1 9123-9, 81770-3 ####[facility] LABORATORYCLIA [id number] [address] STATES OF [facility] CO2 [Moles/Vol] 27 mmol/L Normal 22-30 [facility] Comment on above: Order Comment: Speci men Type: BLOOD SPECIMENOrdering Facility: [facility] Address: [address] [place] [address] Performed By: #### 1 9123-9, 96728-8 ####[facility]ORATORYCLIA [id number] [address] STATES OF [facility] Creatinine [Mass/Vol] 0.68 mg/dL Normal 0.58-0.96 [facility] Comment on above: Order Comment: Speci men Type: BLOOD SPECIMENOrdering Facility: [facility] Address: [address] [place] [address] Performed By: #### 1 9123-9, 92429-7 ####[facility]PITALCLIA [id number] [address] OF [facility] ESTIMATED GLOMERULAR FILTRATION RATE 87 mL/min/1.73m??? Normal >=60 [facility] Comment on above: Order Comment: Speci men Type: BLOOD SPECIMENOrdering Facility: [facility] Address: [address] [place] [address] Result Comment: Ilda mated Glomerular Filtration Rate [...] actual GFR. Performed By: #### 1 9123-9, 35133-6 ####[facility] LABORATORYCLIA [id number] [address] [place] Glucose [Mass/Vol] 114 mg/dL High 74-99 [facility] Comment on above: Order Comment: Speci men Type: BLOOD SPECIMENOrdering Facility: [facility] Address: [address] [address] Result Comment: The [place] [employer] (ADA) provides guidance for cutoff [...] Standards of Medical Care in Diabetes 2016, [place] [employer]. Diabetes Care. 2016.39(Suppl 1). Performed By: #### 1 9123-9, 68207-4 ####[facility] LABORATORYCLIA [id number] [place] [address] [place] Phosphate [Mass/Vol] 2.9 mg/dL Normal 2.7-4.8 [facility] Comment on above: Order Comment: Michelle duron Type: BLOOD SPECIMENOrdering Facility: [facility] Address: [address] [address] Performed By: #### 1 9123-9, 95432-4 ####[facility] LABORATORYCLIA [id number] [place] [address] [place] Potassium [Moles/Vol] 3.7 mmol/L Normal 3.7-5.1 [facility] Comment on above: Order Comment: Manoji men Type: BLOOD SPECIMENOrdering Facility: [facility] Address: [address] Performed By: #### 1 9123-9, 58946-7 ####[facility] LABORATORYCLIA [id number] [place] [address] [place] Sodium [Moles/Vol] 141 mmol/L Normal 136-144 [facility] Comment on above: Order Comment: Speci men Type: BLOOD SPECIMENOrdering Facility: [facility] Address: [address] [address] Performed By: #### 1 9123-9, 89663-6 ####[facility] LABORATORYCLIA [id number] [address] [place] Urea nitrogen [Mass/Vol] 10 mg/dL Normal 7-21 [facility] Comment on above: Order Comment: Speci men Type: BLOOD SPECIMENOrdering Facility: [facility] Address: [address] [place] [address] Performed By: #### 1 9123-9, 33025-1 ####[facility] LABORATORYCLIA [id number] [address] OF [facility] THERAPY NTon 07-26-2022 THERAPY NT Normal [facility] THERAPY NT Normal [facility] XR ABDOMEN 1V SUPINEon 07-26 XR ABDOMEN 1V SUPINE Normal [facility] XR CHEST 1V FRONTALon 2022 XR CHEST 1V FRONTAL Normal [facility] ALLIED HEALTHon 07-25-2022 ALLIED HEALTH Normal [facility] CBC panel Auto (Bld)on 07-25 Erythrocyte distribution width (RBC) [Ratio] 15.0 % Normal 11.5-15.0 [facility] Comment on above: Order Comment: Speci men Type: BLOOD SPECIMENOrdering Facility: [facility] Address: [address] [place] [address] Performed By: #### 5 8410-2 ####[facility] LABORATORYCLIA [id number] [address] [place] Hematocrit (Bld) [Volume fraction] 30.1 % Low 36.0-46.0 [facility] Comment on above: Order Comment: Speci men Type: BLOOD SPECIMENOrdering Facility: [facility] Address: [address] [place] [address] Performed By: #### 5 8410-2 ####[facility]ORATORYCLIA [id number] [address] [place] Hemoglobin (Bld) [Mass/Vol] 9.1 g/dL Low 11.5-15.5 [facility] Comment on above: Order Comment: Speci men Type: BLOOD SPECIMENOrdering Facility: [facility] Address: [address] [address] Performed By: #### 5 8410-2 ####[facility] LABORATORYCLIA [id number] [address] MCH (RBC) [Entitic mass] 30.8 pg Normal 26.0-34.0 [facility] Comment on above: Order Comment: Speci men Type: BLOOD SPECIMENOrdering Facility: [facility] Address: [address] [address] Performed By: #### 5 8410-2 ####[facility] LABORATORYCLIA [id number] [address] STATES [facility] MCHC (RBC) [Mass/Vol] 30.2 g/dL Low 30.5-36.0 [facility] Comment on above: Order Comment: Speci men Type: BLOOD SPECIMENOrdering Facility: [facility] Address: [address] [address] Performed By: #### 5 8410-2 ####[facility] LABORATORYCLIA [id number] [address] MCV (RBC) [Entitic vol] 102.0 fL High 80.0-100.0 [facility] Comment on above: Order Comment: Speci men Type: BLOOD SPECIMENOrdering Facility: [facility] Address: [address] [address] Performed By: #### 5 8410-2 ####[facility]ORATORYCLIA [id number] [address] Nucleated RBC (Bld) [#/Vol] 10*3/uL Normal <0.01 [facility] Comment on above: Order Comment: Speci men Type: BLOOD SPECIMENOrdering Facility: [facility] Address: [address] [place] [address] Performed By: #### 5 8410-2 ####[facility] LABORATORYCLIA [id number] [address] [place] Platelet mean volume (Bld) [Entitic vol] 9.0 fL Normal 9.0-12.7 [facility] Comment on above: Order Comment: Speci men Type: BLOOD SPECIMENOrdering Facility: [facility] Address: [address] [place] [address] Performed By: #### 5 8410-2 ####[facility] LABORATORYCLIA [id number] [place] [address] [place] Platelets (Bld) [#/Vol] 318 10*3/uL Normal 150-400 [facility] Comment on above: Order Comment: Speci men Type: BLOOD SPECIMENOrdering Facility: [facility] Address: [address] [place] [address] Performed By: #### 5 8410-2 ####[facility] LABORATORYCLIA [id number] [place] [address] [place] RBC (Bld) [#/Vol] 2.95 10*6/uL Low 3.90-5.20 [facility] Comment on above: Order Comment: Speci men Type: BLOOD SPECIMENOrdering Facility: [facility] Address: [address] [place] [address] Performed By: #### 5 8410-2 ####[facility] LABORATORYCLIA [id number] [address] [place] WBC (Bld) [#/Vol] 8.13 10*3/uL Normal 3.70-11.00 [facility] Comment on above: Order Comment: Speci men Type: BLOOD SPECIMENOrdering Facility: [facility] Address: [address] [place] [address] Performed By: #### 5 8410-2 ####[facility] LABORATORYCLIA [id number] [address] [place] DIGOXIN/LANOXINon 07-25-2022 Digoxin [Mass/Vol] 0.8 ng/mL Normal 0.5-1.0 [facility] Comment on above: Order Comment: Michelle domi Type: BLOOD SPECIMENOrdering Facility: [facility] Address: [address] [address] Result Comment: Prov ided therapeutic concentrations are based on the 2008 ESC Guidelines for the Diagnosis and Treatment of Acute and Chronic Heart Failure.Reference ranges and high/low indicator flags are provided as general guidelines only. The treating physician must determine appropriate target levels/dosing based on the specific clinical situation. Performed By: #### D IG ####[facility] LABORATORYCLIA [id number] [address] [place] XR CHEST 1V FRONTALon 2022 XR CHEST 1V FRONTAL Normal [facility] ALLIED HEALTHon 07-24-2022 ALLIED HEALTH Normal [facility] CBC panel Auto (Bld)on 07-24 Erythrocyte distribution width (RBC) [Ratio] 14.6 % Normal 11.5-15.0 [facility] Comment on above: Order Comment: Michelle duron Type: BLOOD SPECIMENOrdering Facility: [facility] Address: [address] [address] Performed By: #### 5 8410-2 ####[facility] LABORATORYCLIA [id number] [address] [place] Hematocrit (Bld) [Volume fraction] 32.5 % Low 36.0-46.0 [facility] Comment on above: Order Comment: Michelle duron Type: BLOOD SPECIMENOrdering Facility: [facility] Address: [address] [address] Performed By: #### 5 8410-2 ####[facility] LABORATORYCLIA [id number] [place] [address] [place] Hemoglobin (Bld) [Mass/Vol] 9.8 g/dL Low 11.5-15.5 [facility] Comment on above: Order Comment: Manoji domi Type: BLOOD SPECIMENOrdering Facility: [facility] Address: [address] [address] Performed By: #### 5 8410-2 ####[facility] LABORATORYCLIA [id number] [address] MCH (RBC) [Entitic mass] 30.8 pg Normal 26.0-34.0 [facility] Comment on above: Order Comment: Speci men Type: BLOOD SPECIMENOrdering Facility: [facility] Address: [address] [place] [address] Performed By: #### 5 8410-2 ####[facility] LABORATORYCLIA [id number] [address] MCHC (RBC) [Mass/Vol] 30.2 g/dL Low 30.5-36.0 [facility] Comment on above: Order Comment: Speci men Type: BLOOD SPECIMENOrdering Facility: [facility] Address: [address] [place] [address] Performed By: #### 5 8410-2 ####[facility] LABORATORYCLIA [id number] [address] MCV (RBC) [Entitic vol] 102.2 fL High 80.0-100.0 [facility] Comment on above: Order Comment: Speci men Type: BLOOD SPECIMENOrdering Facility: [facility] Address: [address] [place] [address] Performed By: #### 5 8410-2 ####[facility] LABORATORYCLIA [id number] [address] Nucleated RBC (Bld) [#/Vol] 10*3/uL Normal <0.01 [facility] Comment on above: Order Comment: Speci men Type: BLOOD SPECIMENOrdering Facility: [facility] Address: [address] [place] [address] Performed By: #### 5 8410-2 ####[facility] LABORATORYCLIA [id number] [address] Platelet mean volume (Bld) [Entitic vol] 9.0 fL Normal 9.0-12.7 [facility] Comment on above: Order Comment: Speci men Type: BLOOD SPECIMENOrdering Facility: [facility] Address: [address] [address] Performed By: #### 5 8410-2 ####[facility] LABORATORYCLIA [id number] [address] Platelets (Bld) [#/Vol] 379 10*3/uL Normal 150-400 [facility] Comment on above: Order Comment: Speci men Type: BLOOD SPECIMENOrdering Facility: [facility] Address: [address] [address] Performed By: #### 5 8410-2 ####[facility] LABORATORYCLIA [id number] [address] OF [facility] RBC (Bld) [#/Vol] 3.18 10*6/uL Low 3.90-5.20 [facility] Comment on above: Order Comment: Speci men Type: BLOOD SPECIMENOrdering Facility: [facility] Address: [address] [address] Performed By: #### 5 8410-2 ####[facility] LABORATORYCLIA [id number] [address] STATES OF [facility] WBC (Bld) [#/Vol] 7.62 10*3/uL Normal 3.70-11.00 [facility] Comment on above: Order Comment: Speci men Type: BLOOD SPECIMENOrdering Facility: [facility] Address: [place] [address] Performed By: #### 5 8410-2 ####[facility] LABORATORYCLIA [id number] [address] [place] CNPNon 07-24-2022 CNPN Normal [facility] CONSULT PROGon 07-24-2022 CONSULT PROG Normal [facility] Renal function 2000 panelon 07-24-2022 Albumin [Mass/Vol] 2.8 g/dL Low 3.9-4.9 [facility] Comment on above: Order Comment: Speci men Type: BLOOD SPECIMENOrdering Facility: [facility] Address: [place] [address] Performed By: #### 2 4362-6 ####[facility]ORATORYCLIA [id number] [address] [place] Anion gap [Moles/Vol] 7 mmol/L Low 9-18 [facility] Comment on above: Order Comment: Speci men Type: BLOOD SPECIMENOrdering Facility: [facility] Address: [address] [place] [address] Performed By: #### 2 4362-6 ####[facility]ORATORYCLIA [id number] [place] [address] [place] Calcium [Mass/Vol] 8.7 mg/dL Normal 8.5-10.2 [facility] Comment on above: Order Comment: Speci men Type: BLOOD SPECIMENOrdering Facility: [facility] Address: [address] [place] [address] Performed By: #### 2 4362-6 ####[facility] LABORATORYCLIA [id number] [address] [place] Chloride [Moles/Vol] 107 mmol/L High 97-105 [facility] Comment on above: Order Comment: Speci men Type: BLOOD SPECIMENOrdering Facility: [facility] Address: [address] [place] [address] Performed By: #### 2 4362-6 ####[facility] LABORATORYCLIA [id number] [address] [place] CO2 [Moles/Vol] 29 mmol/L Normal 22-30 [facility] Comment on above: Order Comment: Speci men Type: BLOOD SPECIMENOrdering Facility: [facility] Address: [address] [place] [address] Performed By: #### 2 4362-6 ####[facility]ORATORYCLIA [id number] [address] [place] Creatinine [Mass/Vol] 0.58 mg/dL Normal 0.58-0.96 [facility] Comment on above: Order Comment: Speci men Type: BLOOD SPECIMENOrdering Facility: [facility] Address: [address] [place] [address] Performed By: #### 2 4362-6 ####[facility]PITALIA [id number] [address] ESTIMATED GLOMERULAR FILTRATION RATE 90 mL/min/1.73m??? Normal >=60 [facility] Comment on above: Order Comment: Michelle duron Type: BLOOD SPECIMENOrdering Facility: [facility] Address: [address] [place] [address] Result Comment: Ilda mated Glomerular Filtration Rate [...] actual GFR. Performed By: #### 2 4362-6 ####[facility]ITALIA [id number] [address] Glucose [Mass/Vol] 99 mg/dL Normal 74-99 [facility] Comment on above: Order Comment: Michelle duron Type: BLOOD SPECIMENOrdering Facility: [facility] Address: [address] [place] [address] Result Comment: The [place] [employer] (ADA) provides guidance for cutoff [...] Standards of Medical Care in Diabetes 2016, [place] [employer]. Diabetes Care. 2016.39(Suppl 1). Performed By: #### 2 4362-6 ####[facility]ITALIA [id number] [address] OF [facility] Phosphate [Mass/Vol] 3.0 mg/dL Normal 2.7-4.8 [facility] Comment on above: Order Comment: Speci men Type: BLOOD SPECIMENOrdering Facility: [facility] Address: [address] [place] [address] Performed By: #### 2 4362-6 ####[facility] LABORATORYCLIA [id number] [address] [place] Potassium [Moles/Vol] 3.5 mmol/L Low 3.7-5.1 [facility] Comment on above: Order Comment: Speci men Type: BLOOD SPECIMENOrdering Facility: [facility] Address: [address] [place] [address] Performed By: #### 2 4362-6 ####[facility] LABORATORYCLIA [id number] [address] STATES [facility] Sodium [Moles/Vol] 143 mmol/L Normal 136-144 [facility] Comment on above: Order Comment: Speci men Type: BLOOD SPECIMENOrdering Facility: [facility] Address: [address] [place] [address] Performed By: #### 2 4362-6 ####[facility] LABORATORYCLIA [id number] [address] [place] Urea nitrogen [Mass/Vol] 15 mg/dL Normal 7-21 [facility] Comment on above: Order Comment: Speci men Type: BLOOD SPECIMENOrdering Facility: [facility] Address: [address] [place] [address] Performed By: #### 2 4362-6 ####[facility] LABORATORYCLIA [id number] [address] OF [facility] Urinalysis complete panel (U )on 07-24-2022 Bilirubin Ql (U) 1+ Abnormal Negative [facility] Comment on above: Order Comment: Speci men Type: URINE SPECIMENOrdering Facility: [facility] Address: [address] [place] [address] Result Comment: Sugg est correlation with clinical findings and serum bilirubin if clinically indicated. Performed By: #### 2 4356-8 ####[facility] LABORATORYCLIA [id number] [address] CALCIUM OXALATE CRYSTALS (UA) Many Abnormal None Seen [facility] Comment on above: Order Comment: Speci men Type: URINE SPECIMENOrdering Facility: [facility] Address: [address] [place] [address] Performed By: #### 2 4356-8 ####[facility] LABORATORYCLIA [id number] [address] Clarity (Unsp spec) Dense Turbid Abnormal Clear [facility] Comment on above: Order Comment: Speci men Type: URINE SPECIMENOrdering Facility: [facility] Address: [address] [place] [address] Performed By: #### 2 4356-8 ####[facility] LABORATORYCLIA [id number] [address] Color (U) Dark [place] Abnormal yellow [facility] Comment on above: Order Comment: Speci men Type: URINE SPECIMENOrdering Facility: [facility] Address: [address] [place] [address] Performed By: #### 2 4356-8 ####[facility] LABORATORYCLIA [id number] [address] Epithelial cells LM.HPF (Urine sed) [#/Area] Few Normal [facility] Comment on above: Order Comment: Speci men Type: URINE SPECIMENOrdering Facility: [facility] Address: [address] [place] [address] Result Comment: Few Performed By: #### 2 4356-8 ####[facility] LABORATORYCLIA [id number] [address] Glucose Test strip (U) [Mass/Vol] 4+ Abnormal Trace, Negative [facility] Comment on above: Order Comment: Speci men Type: URINE SPECIMENOrdering Facility: [facility] Address: [address] [place], [place] [address] Performed By: #### 2 4356-8 ####[facility] LABORATORYCLIA [id number] [address] [place] Hemoglobin Ql (U) 3+ Abnormal Negative, Trace [facility] Comment on above: Order Comment: Speci men Type: URINE SPECIMENOrdering Facility: [facility] Address: [address] [address] Performed By: #### 2 4356-8 ####[facility] LABORATORYCLIA [id number] [place] [address] [place] Ketones Ql (U) 1+ Abnormal Negative, Trace [facility] Comment on above: Order Comment: Speci men Type: URINE SPECIMENOrdering Facility: [facility] Address: [address] [place] [address] Performed By: #### 2 4356-8 ####[facility] LABORATORYCLIA [id number] [address] OF [facility] Leukocyte esterase Test strip Ql (U) 250 Jong/uL Abnormal Negative, 25 Jong/uL [facility] Comment on above: Order Comment: Speci men Type: URINE SPECIMENOrdering Facility: [facility] Address: [address] [place] [address] Performed By: #### 2 4356-8 ####[facility] LABORATORYCLIA [id number] [address] [place] Nitrite Ql (U) Negative Normal Negative [facility] Comment on above: Order Comment: Speci men Type: URINE SPECIMENOrdering Facility: [facility] Address: [address] [address] Performed By: #### 2 4356-8 ####[facility] LABORATORYCLIA [id number] [address] [place] pH (U) 6.0 [pH] Normal 5.0-8.0 [facility] Comment on above: Order Comment: Speci men Type: URINE SPECIMENOrdering Facility: [facility] Address: [address] [place] [address] Performed By: #### 2 4356-8 ####[facility] LABORATORYCLIA [id number] [address] Protein (U) [Mass/Vol] 2+ Abnormal Trace, Negative [facility] Comment on above: Order Comment: Speci men Type: URINE SPECIMENOrdering Facility: [facility] Address: [address] [place] [address] Performed By: #### 2 4356-8 ####[facility] LABORATORYCLIA [id number] [address] [place] RBC LM.HPF (Urine sed) [#/Area] /[HPF] Abnormal 0-3 /HPF [facility] Comment on above: Order Comment: Speci men Type: URINE SPECIMENOrdering Facility: [facility] Address: [address] [place] [address] Performed By: #### 2 4356-8 ####[facility] LABORATORYCLIA [id number] [address] Specific gravity (U) [Rel density] >1.040 High 1.005-1.030 [facility] Comment on above: Order Comment: Speci men Type: URINE SPECIMENOrdering Facility: [facility] Address: [address] [place] [address] Performed By: #### 2 4356-8 ####[facility] LABORATORYCLIA [id number] [address] Urobilinogen Ql (U) Normal Normal Negative [facility] Comment on above: Order Comment: Speci men Type: URINE SPECIMENOrdering Facility: [facility] Address: [address] [place] [address] Performed By: #### 2 4356-8 ####[facility] LABORATORYCLIA [id number] [address] [place] WBC LM.HPF (Urine sed) [#/Area] /[HPF] Abnormal 0-5 /HPF [facility] Comment on above: Order Comment: Speci men Type: URINE SPECIMENOrdering Facility: [facility] Address: [address] [place] [address] Performed By: #### 2 4356-8 ####[facility] LABORATORYCLIA [id number] [address] OF [facility] Yeast.budding LM.HPF (Urine sed) [#/Area] Many Abnormal None Seen [facility] Comment on above: Order Comment: Speci men Type: URINE SPECIMENOrdering Facility: [facility] Address: [address] [place] [address] Performed By: #### 2 4356-8 ####[facility] LABORATORYCLIA [id number] [address] OF [facility] Urinalysis complete pnl Uron 07-24-2022 Urinalysis complete panel (U) Normal [facility] Comment on above: Order Comment: Speci men Type: URINE SPECIMENOrdering Facility: [facility] Address: [address] [place] [address] Performed By: #### 2 4356-8 ####[facility] LABORATORYCLIA [id number] [address] STATES OF [facility] XR CHEST 1V FRONTALon 2022 XR CHEST 1V FRONTAL Normal [facility] ALLIED HEALTHon 07-23-2022 ALLIED HEALTH Normal [facility] Basic metabolic 2000 panelon 07-23-2022 Anion gap [Moles/Vol] 10 mmol/L Normal 9-18 [facility] Comment on above: Order Comment: Speci men Type: BLOOD SPECIMENOrdering Facility: [facility] Address: [address] [place] [address] Performed By: #### 2 4321-2 ####[facility] LABORATORYCLIA [id number] [address] STATES OF [facility] Calcium [Mass/Vol] 9.2 mg/dL Normal 8.5-10.2 [facility] Comment on above: Order Comment: Speci men Type: BLOOD SPECIMENOrdering Facility: [facility] Address: [address] [place] [address] Performed By: #### 2 4321-2 ####[facility] LABORATORYCLIA [id number] [address] [place] Chloride [Moles/Vol] 105 mmol/L Normal 97-105 [facility] Comment on above: Order Comment: Speci men Type: BLOOD SPECIMENOrdering Facility: [facility] Address: [address] [place] [address] Performed By: #### 2 4321-2 ####[facility] LABORATORYCLIA [id number] [address] [place] CO2 [Moles/Vol] 28 mmol/L Normal 22-30 [facility] Comment on above: Order Comment: Speci men Type: BLOOD SPECIMENOrdering Facility: [facility] Address: [address] [place] [address] Performed By: #### 2 4321-2 ####[facility] LABORATORYCLIA [id number] [address] OF [facility] Creatinine [Mass/Vol] 0.61 mg/dL Normal 0.58-0.96 [facility] Comment on above: Order Comment: Speci men Type: BLOOD SPECIMENOrdering Facility: [facility] Address: [address] [place] [address] Performed By: #### 2 4321-2 ####[facility] LABORATORYCLIA [id number] [address] ESTIMATED GLOMERULAR FILTRATION RATE 89 mL/min/1.73m??? Normal >=60 [facility] Comment on above: Order Comment: Speci men Type: BLOOD SPECIMENOrdering Facility: [facility] Address: [address] [place] [address] Result Comment: Ilda mated Glomerular Filtration Rate [...] actual GFR. Performed By: #### 2 4321-2 ####[facility] LABORATORYCLIA [id number] [place] [address] [place] Glucose [Mass/Vol] 91 mg/dL Normal 74-99 [facility] Comment on above: Order Comment: Speci men Type: BLOOD SPECIMENOrdering Facility: [facility] Address: [address] [place] [address] Result Comment: The [place] [employer] (ADA) provides guidance for cutoff [...] Standards of Medical Care in Diabetes 2016, [place] [employer]. Diabetes Care. 2016.39(Suppl 1). Performed By: #### 2 4321-2 ####[facility] LABORATORYCLIA [id number] [place] [address] [place] Potassium [Moles/Vol] 4.0 mmol/L Normal 3.7-5.1 [facility] Comment on above: Order Comment: Speci men Type: BLOOD SPECIMENOrdering Facility: [facility] Address: [address] [place] [address] Performed By: #### 2 4321-2 ####[facility] LABORATORYCLIA [id number] [place] [address] [place] Sodium [Moles/Vol] 143 mmol/L Normal 136-144 [facility] Comment on above: Order Comment: Speci men Type: BLOOD SPECIMENOrdering Facility: [facility] Address: [address] [place] [address] Performed By: #### 2 4321-2 ####[facility] LABORATORYCLIA [id number] [place] [address] [place] Urea nitrogen [Mass/Vol] 14 mg/dL Normal 7-21 [facility] Comment on above: Order Comment: Speci men Type: BLOOD SPECIMENOrdering Facility: [facility] Address: [address] [place] [address] Performed By: #### 2 4321-2 ####[facility] LABORATORYCLIA [id number] [address] STATES OF [facility] CBC panel Auto (Bld)on 07-23 Erythrocyte distribution width (RBC) [Ratio] 14.5 % Normal 11.5-15.0 [facility] Comment on above: Order Comment: Speci men Type: BLOOD SPECIMENOrdering Facility: [facility] Address: [address] [place] [address] Performed By: #### 5 8410-2 ####[facility] LABORATORYCLIA [id number] [address] Hematocrit (Bld) [Volume fraction] 37.1 % Normal 36.0-46.0 [facility] Comment on above: Order Comment: Speci men Type: BLOOD SPECIMENOrdering Facility: [facility] Address: [address] [place] [address] Performed By: #### 5 8410-2 ####[facility] LABORATORYCLIA [id number] [address] STATES OF [facility] Hemoglobin (Bld) [Mass/Vol] 11.2 g/dL Low 11.5-15.5 [facility] Comment on above: Order Comment: Speci men Type: BLOOD SPECIMENOrdering Facility: [facility] Address: [address] [place] [address] Performed By: #### 5 8410-2 ####[facility] LABORATORYCLIA [id number] [address] STATES [facility] MCH (RBC) [Entitic mass] 30.7 pg Normal 26.0-34.0 [facility] Comment on above: Order Comment: Speci men Type: BLOOD SPECIMENOrdering Facility: [facility] Address: [address] [place], [place] [id number] Performed By: #### 5 8410-2 ####[facility] LABORATORYCLIA [id number] [address] MCHC (RBC) [Mass/Vol] 30.2 g/dL Low 30.5-36.0 [facility] Comment on above: Order Comment: Speci men Type: BLOOD SPECIMENOrdering Facility: [facility] Address: [address] [place] [address] Performed By: #### 5 8410-2 ####[facility] LABORATORYCLIA [id number] [address] MCV (RBC) [Entitic vol] 101.6 fL High 80.0-100.0 [facility] Comment on above: Order Comment: Speci men Type: BLOOD SPECIMENOrdering Facility: [facility] Address: [address] [place] [address] Performed By: #### 5 8410-2 ####[facility] LABORATORYCLIA [id number] [address] Nucleated RBC (Bld) [#/Vol] 10*3/uL Normal <0.01 [facility] Comment on above: Order Comment: Speci men Type: BLOOD SPECIMENOrdering Facility: [facility] Address: [address] [place] [address] Performed By: #### 5 8410-2 ####[facility] LABORATORYCLIA [id number] [address] STATES OF [facility] Platelet mean volume (Bld) [Entitic vol] 8.6 fL Low 9.0-12.7 [facility] Comment on above: Order Comment: Speci men Type: BLOOD SPECIMENOrdering Facility: [facility] Address: [address] [place] [address] Performed By: #### 5 8410-2 ####[facility] LABORATORYCLIA [id number] [address] [place] Platelets (Bld) [#/Vol] 380 10*3/uL Normal 150-400 [facility] Comment on above: Order Comment: Speci men Type: BLOOD SPECIMENOrdering Facility: [facility] Address: [address] [place] [address] Performed By: #### 5 8410-2 ####[facility] LABORATORYCLIA [id number] [address] [place] RBC (Bld) [#/Vol] 3.65 10*6/uL Low 3.90-5.20 [facility] Comment on above: Order Comment: Speci men Type: BLOOD SPECIMENOrdering Facility: [facility] Address: [address] [place] [address] Performed By: #### 5 8410-2 ####[facility] LABORATORYCLIA [id number] [address] STATES OF [facility] WBC (Bld) [#/Vol] 7.54 10*3/uL Normal 3.70-11.00 [facility] Comment on above: Order Comment: Speci men Type: BLOOD SPECIMENOrdering Facility: [facility] Address: [address] [place] [address] Performed By: #### 5 8410-2 ####[facility] LABORATORYCLIA [id number] [address] [place] CONSULT PROGon 07-23-2022 CONSULT PROG Normal [facility] HISTORY PHYSICALon HISTORY PHYSICAL Normal [facility] XR CHEST 1V FRONTALon 2022 XR CHEST 1V FRONTAL Normal [facility] ALLIED HEALTHon 07-22-2022 ALLIED HEALTH Normal [facility] Basic metabolic 2000 panelon 07-22-2022 Anion gap [Moles/Vol] 10 mmol/L Normal 9-18 [facility] Comment on above: Order Comment: Speci men Type: BLOOD SPECIMENOrdering Facility: [facility] Address: [address] [place] [address] Performed By: #### 2 4321-2 ####[facility] LABORATORYCLIA [id number] [address] [place] Calcium [Mass/Vol] 8.8 mg/dL Normal 8.5-10.2 [facility] Comment on above: Order Comment: Speci men Type: BLOOD SPECIMENOrdering Facility: [facility] Address: [address] [place] [address] Performed By: #### 2 4321-2 ####[facility] LABORATORYCLIA [id number] [place] [address] [place] Chloride [Moles/Vol] 103 mmol/L Normal 97-105 [facility] Comment on above: Order Comment: Speci men Type: BLOOD SPECIMENOrdering Facility: [facility] Address: [address] [place] [address] Performed By: #### 2 4321-2 ####[facility] LABORATORYCLIA [id number] [address] [place] CO2 [Moles/Vol] 27 mmol/L Normal 22-30 [facility] Comment on above: Order Comment: Speci men Type: BLOOD SPECIMENOrdering Facility: [facility] Address: [address] [place] [address] Performed By: #### 2 4321-2 ####[facility] LABORATORYCLIA [id number] [address] [place] Creatinine [Mass/Vol] 0.58 mg/dL Normal 0.58-0.96 [facility] Comment on above: Order Comment: Speci men Type: BLOOD SPECIMENOrdering Facility: [facility] Address: [address] [place] [address] Performed By: #### 2 4321-2 ####[facility] LABORATORYCLIA [id number] [address] ESTIMATED GLOMERULAR FILTRATION RATE 90 mL/min/1.73m??? Normal >=60 [facility] Comment on above: Order Comment: Speci men Type: BLOOD SPECIMENOrdering Facility: [facility] Address: [address] [place] [address] Result Comment: Ilda mated Glomerular Filtration Rate [...] actual GFR. Performed By: #### 2 4321-2 ####[facility] LABORATORYCLIA [id number] [place] [address] [place] Glucose [Mass/Vol] 85 mg/dL Normal 74-99 [facility] Comment on above: Order Comment: Speci men Type: BLOOD SPECIMENOrdering Facility: [facility] Address: [address] [place] [address] Result Comment: The [place] [employer] (ADA) provides guidance for cutoff [...] Standards of Medical Care in Diabetes 2016, [place] [employer]. Diabetes Care. 2016.39(Suppl 1). Performed By: #### 2 4321-2 ####[facility] LABORATORYCLIA [id number] [place] [address] [place] Potassium [Moles/Vol] 3.6 mmol/L Low 3.7-5.1 [facility] Comment on above: Order Comment: Speci men Type: BLOOD SPECIMENOrdering Facility: [facility] Address: [address] [id number] Performed By: #### 2 4321-2 ####[facility] LABORATORYCLIA [id number] [place] [address] [place] Sodium [Moles/Vol] 140 mmol/L Normal 136-144 [facility] Comment on above: Order Comment: Speci men Type: BLOOD SPECIMENOrdering Facility: [facility] Address: [address] [place] [address] Performed By: #### 2 4321-2 ####[facility] LABORATORYCLIA [id number] [address] STATES OF [facility] Urea nitrogen [Mass/Vol] 14 mg/dL Normal 7-21 [facility] Comment on above: Order Comment: Speci men Type: BLOOD SPECIMENOrdering Facility: [facility] Address: [address] [place] [address] Performed By: #### 2 4321-2 ####[facility] LABORATORYCLIA [id number] [address] OF [facility] CASE MANAGEMon 07-22-2022 CASE MANAGEM Normal [facility] CBC panel Auto (Bld)on 07-22 Erythrocyte distribution width (RBC) [Ratio] 14.3 % Normal 11.5-15.0 [facility] Comment on above: Order Comment: Speci men Type: BLOOD SPECIMENOrdering Facility: [facility] Address: [address] [place] [address] Performed By: #### 5 8410-2 ####[facility] LABORATORYCLIA [id number] [address] STATES OF [facility] Hematocrit (Bld) [Volume fraction] 34.7 % Low 36.0-46.0 [facility] Comment on above: Order Comment: Speci men Type: BLOOD SPECIMENOrdering Facility: [facility] Address: [address] [place] [address] Performed By: #### 5 8410-2 ####[facility] LABORATORYCLIA [id number] [address] [place] Hemoglobin (Bld) [Mass/Vol] 10.5 g/dL Low 11.5-15.5 [facility] Comment on above: Order Comment: Speci men Type: BLOOD SPECIMENOrdering Facility: [facility] Address: [address] [place] [address] Performed By: #### 5 8410-2 ####[facility] LABORATORYCLIA [id number] [address] MCH (RBC) [Entitic mass] 30.6 pg Normal 26.0-34.0 [facility] Comment on above: Order Comment: Speci men Type: BLOOD SPECIMENOrdering Facility: [facility] Address: [address] [place] [address] Performed By: #### 5 8410-2 ####[facility] LABORATORYCLIA [id number] [address] MCHC (RBC) [Mass/Vol] 30.3 g/dL Low 30.5-36.0 [facility] Comment on above: Order Comment: Speci men Type: BLOOD SPECIMENOrdering Facility: [facility] Address: [address] [place] [address] Performed By: #### 5 8410-2 ####[facility] LABORATORYCLIA [id number] [address] [address] STATES [facility] MCV (RBC) [Entitic vol] 101.2 fL High 80.0-100.0 [facility] Comment on above: Order Comment: Speci men Type: BLOOD SPECIMENOrdering Facility: [facility] Address: [address] [place] [address] Performed By: #### 5 8410-2 ####[facility] LABORATORYCLIA [id number] [address] Nucleated RBC (Bld) [#/Vol] 10*3/uL Normal <0.01 [facility] Comment on above: Order Comment: Speci men Type: BLOOD SPECIMENOrdering Facility: [facility] Address: [address] [place] [address] Performed By: #### 5 8410-2 ####[facility] LABORATORYCLIA [id number] [address] Platelet mean volume (Bld) [Entitic vol] 8.6 fL Low 9.0-12.7 [facility] Comment on above: Order Comment: Speci men Type: BLOOD SPECIMENOrdering Facility: [facility] Address: [address] [place] [address] Performed By: #### 5 8410-2 ####[facility] LABORATORYCLIA [id number] [address] Platelets (Bld) [#/Vol] 400 10*3/uL Normal 150-400 [facility] Comment on above: Order Comment: Speci men Type: BLOOD SPECIMENOrdering Facility: [facility] Address: [address] [place] [address] Performed By: #### 5 8410-2 ####[facility] LABORATORYCLIA [id number] [address] RBC (Bld) [#/Vol] 3.43 10*6/uL Low 3.90-5.20 [facility] Comment on above: Order Comment: Speci men Type: BLOOD SPECIMENOrdering Facility: [facility] Address: [address] [place] [address] Performed By: #### 5 8410-2 ####[facility] LABORATORYCLIA [id number] [address] WBC (Bld) [#/Vol] 8.47 10*3/uL Normal 3.70-11.00 [facility] Comment on above: Order Comment: Speci men Type: BLOOD SPECIMENOrdering Facility: [facility] Address: [address] [place] [address] Performed By: #### 5 8410-2 ####[facility] LABORATORYCLIA [id number] [address] Centromere Ab IF Ql (S)on Centromere Ab Qn (S) <0.2 Normal <1.0 [facility] Comment on above: Order Comment: Speci men Type: BLOOD SPECIMENOrdering Facility: [facility] Address: [address] [place] [address] Result Comment: Anti -centromere antibody is used as in aid in diagnosis of systemic sclerosis. Clinical correlation is required.Test Methodology: Multiplex flow immunoassay. Performed By: #### 5 1775-5, 62984-2, 10760-7, 33132-0, 27952-4, 85713-6, 23105-9, 31109-6 ####[facility] LABCLIA [id number] [place] [address] [place] CENTROMERE AB QUAL Negative Normal Negative [facility] Comment on above: Order Comment: Speci men Type: BLOOD SPECIMENOrdering Facility: [facility] Address: [address] [place] [address] Performed By: #### 5 1775-5, 34083-8, 65444-7, 59125-8, 47553-3, 26083-5, 78435-3, 58322-3 ####[facility] LABCLIA [id number] [address] [place] Chromatin Ab Qnon 07-22-2022 CHROMATIN AB QUAL Negative Normal Negative [facility] Comment on above: Order Comment: Speci men Type: BLOOD SPECIMENOrdering Facility: [facility] Address: [address] [place] [address] Performed By: #### 5 1775-5, 70101-4, 22089-4, 84654-8, 02906-9, 27907-2, 78902-6, 19263-0 ####[facility] LABCLIA [id number] [address] [place] Chromatin Ab SerPl-aCncon Chromatin Ab Qn <0.2 Normal <1.0 [facility] Comment on above: Order Comment: Speci men Type: BLOOD SPECIMENOrdering Facility: [facility] Address: [address] [place] [address] Result Comment: Test Methodology: Multiplex flow immunoassay. Performed By: #### 5 1775-5, 49215-3, 72250-2, 56589-7, 13421-3, 17923-7, 30275-5, 36312-1 ####[facility] LABCLIA [id number] [place] [address] [place] ECHO LIMITEDon 07-22-2022 ECHO LIMITED Normal [facility] MALIHA Jo1 Ab Ser-aCncon 2022 Tonie-1 extractable nuclear Ab Qn (S) <0.2 Normal <1.0 [facility] Comment on above: Order Comment: Speci men Type: BLOOD SPECIMENOrdering Facility: [facility] Address: [address] [place] [address] Performed By: #### 5 1775-5, 46772-5, 36034-5, 98722-7, 45143-1, 44048-8, 24284-0, 41816-5 ####[facility] LABCLIA [id number] [address] [place] MALIHA LENS EDGE GRINDER MACHINE Ab Ser-aCncon 2022 Ribonucleoprotein extractable nuclear Ab Qn (S) <0.2 Normal <1.0 [facility] Comment on above: Order Comment: Speci men Type: BLOOD SPECIMENOrdering Facility: [facility] Address: [address] [place] [address] Performed By: #### 5 1775-5, 38411-4, 87896-4, 09917-1, 38756-8, 71981-5, 54660-7, 03760-1 ####[facility] LABCLIA [id number] [address] [place] MALIHA SM IgG Ser-aCncon 2022 Banks extractable nuclear IgG Qn (S) <0.2 Normal <1.0 [facility] Comment on above: Order Comment: Speci men Type: BLOOD SPECIMENOrdering Facility: [facility] Address: [address] [place] [address] Performed By: #### 5 1775-5, 22151-0, 40176-0, 54769-9, 76417-3, 82590-5, 53174-8, 72640-2 ####[facility] LABCLIA [id number] [address] [place] MALIHA SS-A Ab Ser-aCncon 07-22 Sjogrens syndrome-A extractable nuclear Ab Qn (S) <0.2 Normal <1.0 [facility] Comment on above: Order Comment: Speci men Type: BLOOD SPECIMENOrdering Facility: [facility] Address: [address] [place] [address] Result Comment: Test Methodology: Multiplex flow immunoassay. Performed By: #### 5 1775-5, 21113-5, 74177-7, 44029-9, 64332-4, 95296-8, 16499-8, 24212-3 ####[facility] LABIA [id number] [address] STATES [facility] MALIHA SS-B Ab Ser-aCncon 07-22 Sjogrens syndrome-B extractable nuclear Ab Qn (S) <0.2 Normal <1.0 [facility] Comment on above: Order Comment: Speci men Type: BLOOD SPECIMENOrdering Facility: [facility] Address: [address] [place] [address] Result Comment: Anti -SSB (anti-La) antibody is used as an aid in diagnosis of a variety of systemic autoimmune diseases, especially for Sjogren's syndrome and systemic lupus erythematosus. Clinical correlation is required.Test Methodology: Multiplex flow immunoassay. Performed By: #### 5 1775-5, 06504-4, 64504-2, 78345-7, 10928-8, 20234-5, 53868-4, 78343-9 ####[facility] LABIA [id number] [address] [place] Tonie-1 extractable nuclear Ab Qn (S)on 07-22-2022 TONIE 1 ANTIBODY QUAL Negative Normal Negative [facility] Comment on above: Order Comment: Speci men Type: BLOOD SPECIMENOrdering Facility: [facility] Address: [address] [place] [address] Result Comment: Anti -TONIE-1 antibody is used as an aid in diagnosis of polymyositis and dermatomyositis especially with pulmonary involvement. A negative result cannot rule out polymyositis or dermatomyositis. Clinical correlation is required.Test Methodology: Multiplex flow immunoassay. Performed By: #### 5 1775-5, 07678-7, 00676-8, 35756-5, 12142-7, 68130-1, 24627-8, 04873-0 ####[facility] LABCLIA [id number] [address] [address] [place] NUTRITIONon 07-22-2022 NUTRITION Normal [facility] Ribonucleoprotein extractabl e nuclear Ab Qn (S)on 07-22-2022 ANTI-LENS EDGE GRINDER MACHINE QUAL Negative Normal Negative [facility] Comment on above: Order Comment: Speci men Type: BLOOD SPECIMENOrdering Facility: [facility] Address: [address] [place] [address] Performed By: #### 5 1775-5, 54732-9, 44287-6, 10902-3, 23604-3, 34295-5, 05140-4, 66246-3 ####[facility] LABIA [id number] [address] STATES [facility] RIBOSOMAL LENS EDGE GRINDER MACHINE QUAL Negative Normal Negative [facility] Comment on above: Order Comment: Speci [facility] Type: BLOOD SPECIMENOrdering Facility: [facility] Address: [address] [place] [address] Result Comment: Anti -Ribosomal RNA (Ribosomal P) antibody is used as an aid in diagnosis of systemic autoimmune diseases especially systemic lupus erythematosus and mixed connective tissue disease. Cross-reactivity with Anti-banks antibody is not uncommon. Clinical correlation is required.Test Methodology: Multiplex flow immunoassay. Performed By: #### 5 1775-5, 03533-0, 50431-6, 69050-3, 16997-1, 57948-6, 65906-2, 36552-3 ####[facility] LABCLIA [id number] [address] [address] [place] SCL-70 extractable nuclear I gG IA Qn (S)on 07-22-2022 SCLERODERMA AB QUAL Negative Normal Negative [facility] Comment on above: Order Comment: Speci men Type: BLOOD SPECIMENOrdering Facility: [facility] Address: [address] [address] Performed By: #### 5 1775-5, 71775-7, 22499-2, 84541-8, 20391-9, 54630-8, 96063-6, 69357-0 ####[facility] LABIA [id number] [address] [place] SCLERODERMA IGG AB <0.2 Normal <1.0 [facility] Comment on above: Order Comment: Speci men Type: BLOOD SPECIMENOrdering Facility: [facility] Address: [address] [place] [address] Result Comment: Scl- 70/Scleroderma antibody test is used as an aid in diagnosis of systemic sclerosis especially the diffuse cutaneous form. A negative result cannot rule out systemic sclerosis. The final interpretation should consider clinical picture and other test results such as anti-centromere antibody. Test Methodology: Multiplex flow immunoassay. Performed By: #### 5 1775-5, 04209-7, 71469-5, 66079-5, 16283-6, 78800-1, 28931-3, 84116-6 ####[facility] LABIA [id number] [address] [place] Sjogrens syndrome-A extracta ble nuclear Ab Qn (S)on 07-22-2022 SSA ANTIBODY QUAL Negative Normal Negative [facility] Comment on above: Order Comment: Speci men Type: BLOOD SPECIMENOrdering Facility: [facility] Address: [address] [place] [address] Performed By: #### 5 1775-5, 02021-3, 07751-6, 55510-3, 08156-1, 19857-9, 13561-8, 70123-3 ####[facility] LABCLIA [id number] [address] [place] Sjogrens syndrome-B extracta ble nuclear Ab Qn (S)on 07-22-2022 SSB ANTIBODY QUAL Negative Normal Negative [facility] Comment on above: Order Comment: Speci men Type: BLOOD SPECIMENOrdering Facility: [facility] Address: [address] [place] [address] Performed By: #### 5 1775-5, 79862-1, 47982-7, 25414-2, 16645-9, 91658-3, 74509-8, 79619-4 ####[facility] LABCLIA [id number] [address] [place] Banks extractable nuclear Ig G Qn (S)on 07-22-2022 SM ANTIBODY QUAL Negative Normal Negative [facility] Comment on above: Order Comment: Speci men Type: BLOOD SPECIMENOrdering Facility: [facility] Address: [address] [place] [address] Result Comment: Anti -Sm (Banks) antibody is used as an aid in diagnosis of systemic lupus erythematosus and its presence is associated with renal disease. A negative result cannot rule out systemic lupus erythematosus. Clinical correlation is required.Test Methodology: Multiplex flow immunoassay. Performed By: #### 5 1775-5, 35815-7, 60267-3, 12034-1, 51641-0, 34648-8, 60784-6, 93144-2 ####[facility] LABCLIA [id number] [place] [address] [place] THERAPY NTon 07-22-2022 THERAPY NT Normal [facility] XR CHEST 1V FRONTALon 2022 XR CHEST 1V FRONTAL Normal [facility] ALLIED HEALTHon 07-21-2022 ALLIED HEALTH Normal [facility] ALLIED HEALTH Normal [facility] ANES POSTPROC EVALon 023 ANES POSTPROC EVAL Normal [facility] BRIEF OP NOTon 07-21-2022 BRIEF OP NOT Normal [facility] Basic metabolic 2000 panelon 07-21-2022 Anion gap [Moles/Vol] 7 mmol/L Low 9-18 [facility] Comment on above: Order Comment: Speci men Type: BLOOD SPECIMENOrdering Facility: [facility] Address: [address] [place] [address] Performed By: #### 2 4320-2, 83615-1 ####[facility]ORATORYCLIA [id number] [place] [address] [place] Calcium [Mass/Vol] 8.7 mg/dL Normal 8.5-10.2 [facility] Comment on above: Order Comment: Speci men Type: BLOOD SPECIMENOrdering Facility: [facility] Address: [address] [place] [address] Performed By: #### 2 4320-2, 98893-2 ####[facility] LABORATORYCLIA [id number] [place] [address] [place] Chloride [Moles/Vol] 103 mmol/L Normal 97-105 [facility] Comment on above: Order Comment: Speci men Type: BLOOD SPECIMENOrdering Facility: [facility] Address: [address] [place] [address] Performed By: #### 2 2, 86051-5 ####[facility]ORATORYCLIA [id number] [place] [address] [place] CO2 [Moles/Vol] 29 mmol/L Normal 22-30 [facility] Comment on above: Order Comment: Speci men Type: BLOOD SPECIMENOrdering Facility: [facility] Address: [address] [place] [address] Performed By: #### 2 4320-2, 63665-6 ####[facility]ORATORYCLIA [id number] [place] [address] [place] Creatinine [Mass/Vol] 0.61 mg/dL Normal 0.58-0.96 [facility] Comment on above: Order Comment: Speci men Type: BLOOD SPECIMENOrdering Facility: [facility] Address: [address] [place] [address] Performed By: #### 2 4320-2, 42050-1 ####[facility]PITALCLIA [id number] [place] [address] [place] ESTIMATED GLOMERULAR FILTRATION RATE 89 mL/min/1.73m??? Normal >=60 [facility] Comment on above: Order Comment: Michelle duron Type: BLOOD SPECIMENOrdering Facility: [facility] Address: [address] [place] [address] Result Comment: Ilda mated Glomerular Filtration Rate [...] actual GFR. Performed By: #### 2 4321-2, 90390-0 ####[facility]PITALIA [id number] [place] [address] [place] Glucose [Mass/Vol] 87 mg/dL Normal 74-99 [facility] Comment on above: Order Comment: Michelle domi Type: BLOOD SPECIMENOrdering Facility: [facility] Address: [address] [place] [address] Result Comment: The [place] [employer] (ADA) provides guidance for cutoff [...] Standards of Medical Care in Diabetes 2016, [place] [employer]. Diabetes Care. 2016.39(Suppl 1). Performed By: #### 2 4321-2, 52067-2 ####[facility] LABORATORYCLIA [id number] [place] [id number] [place] Potassium [Moles/Vol] 3.8 mmol/L Normal 3.7-5.1 [facility] Comment on above: Order Comment: Speci men Type: BLOOD SPECIMENOrdering Facility: [facility] Address: [address] [address] Performed By: #### 2 4321-2, 15406-7 ####[facility] LABORATORYCLIA [id number] [place] [address] [place] Sodium [Moles/Vol] 139 mmol/L Normal 136-144 [facility] Comment on above: Order Comment: Speci men Type: BLOOD SPECIMENOrdering Facility: [facility] Address: [address] [place] [address] Performed By: #### 2 432-2, 80943-0 ####[facility] LABORATORYCLIA [id number] [place] [address] [place] Urea nitrogen [Mass/Vol] 14 mg/dL Normal 7-21 [facility] Comment on above: Order Comment: Speci men Type: BLOOD SPECIMENOrdering Facility: [facility] Address: [address] [place] [address] Performed By: #### 2 4322, 20708-7 ####[facility] LABORATORYCLIA [id number] [place] [address] [place] CASE MANAGEMon 07-21-2022 CASE MANAGEM Normal [facility] CBC panel Auto (Bld)on 07-21 Erythrocyte distribution width (RBC) [Ratio] 14.3 % Normal 11.5-15.0 [facility] Comment on above: Order Comment: Speci men Type: BLOOD SPECIMENOrdering Facility: [facility] Address: [address] [place] [address] Performed By: #### 5 8410-2 ####[facility] LABORATORYCLIA [id number] [address] [place] Hematocrit (Bld) [Volume fraction] 34.0 % Low 36.0-46.0 [facility] Comment on above: Order Comment: Speci men Type: BLOOD SPECIMENOrdering Facility: [facility] Address: [address] [place] [address] Performed By: #### 5 8410-2 ####[facility] LABORATORYCLIA [id number] [address] Hemoglobin (Bld) [Mass/Vol] 10.2 g/dL Low 11.5-15.5 [facility] Comment on above: Order Comment: Speci men Type: BLOOD SPECIMENOrdering Facility: [facility] Address: [address] [place] [address] Performed By: #### 5 8410-2 ####[facility] LABORATORYCLIA [id number] [address] MCH (RBC) [Entitic mass] 30.3 pg Normal 26.0-34.0 [facility] Comment on above: Order Comment: Speci men Type: BLOOD SPECIMENOrdering Facility: [facility] Address: [address] [place] [address] Performed By: #### 5 8410-2 ####[facility] LABORATORYCLIA [id number] [address] MCHC (RBC) [Mass/Vol] 30.0 g/dL Low 30.5-36.0 [facility] Comment on above: Order Comment: Speci men Type: BLOOD SPECIMENOrdering Facility: [facility] Address: [address] [place] [address] Performed By: #### 5 8410-2 ####[facility] LABORATORYCLIA [id number] [address] STATES [facility] MCV (RBC) [Entitic vol] 100.9 fL High 80.0-100.0 [facility] Comment on above: Order Comment: Speci men Type: BLOOD SPECIMENOrdering Facility: [facility] Address: [address] [place] [address] Performed By: #### 5 8410-2 ####[facility] LABORATORYCLIA [id number] [place] [address] [place] Nucleated RBC (Bld) [#/Vol] 10*3/uL Normal <0.01 [facility] Comment on above: Order Comment: Speci men Type: BLOOD SPECIMENOrdering Facility: [facility] Address: [address] [place] [address] Performed By: #### 5 8410-2 ####[facility] LABORATORYCLIA [id number] [place] [address] [place] Platelet mean volume (Bld) [Entitic vol] 8.5 fL Low 9.0-12.7 [facility] Comment on above: Order Comment: Speci men Type: BLOOD SPECIMENOrdering Facility: [facility] Address: [address] [place] [address] Performed By: #### 5 8410-2 ####[facility] LABORATORYCLIA [id number] [address] [place] Platelets (Bld) [#/Vol] 414 10*3/uL High 150-400 [facility] Comment on above: Order Comment: Speci men Type: BLOOD SPECIMENOrdering Facility: [facility] Address: [address] [place] [address] Performed By: #### 5 8410-2 ####[facility] LABORATORYCLIA [id number] [address] [place] RBC (Bld) [#/Vol] 3.37 10*6/uL Low 3.90-5.20 [facility] Comment on above: Order Comment: Speci men Type: BLOOD SPECIMENOrdering Facility: [facility] Address: [address] [place] [address] Performed By: #### 5 8410-2 ####[facility] LABORATORYCLIA [id number] [address] [place] WBC (Bld) [#/Vol] 8.97 10*3/uL Normal 3.70-11.00 [facility] Comment on above: Order Comment: Speci men Type: BLOOD SPECIMENOrdering Facility: [facility] Address: [address] [place] [address] Performed By: #### 5 8410-2 ####[facility] LABORATORYCLIA [id number] [address] CONSULT PROGon 07-21-2022 CONSULT PROG Normal [facility] DIGOXIN/LANOXINon 07-21-2022 Digoxin [Mass/Vol] 0.7 ng/mL Normal 0.5-1.0 [facility] Comment on above: Order Comment: Specximena duron Type: BLOOD SPECIMENOrdering Facility: [facility] Address: [address] [address] Result Comment: Prov ided therapeutic concentrations are based on the 2008 ESC Guidelines for the Diagnosis and Treatment of Acute and Chronic Heart Failure.Reference ranges and high/low indicator flags are provided as general guidelines only. The treating physician must determine appropriate target levels/dosing based on the specific clinical situation. Performed By: #### D IG ####[facility] LABORATORYCLIA [id number] [address] Hepatic function 2000 panelo n 07-21-2022 Albumin [Mass/Vol] 2.8 g/dL Low 3.9-4.9 [facility] Comment on above: Order Comment: Michelle duron Type: BLOOD SPECIMENOrdering Facility: [facility] Address: [address] [address] Performed By: #### 2 4321-2, 22825-6 ####[facility] LABORATORYCLIA [id number] [address] ALP [Catalytic activity/Vol] 107 U/L Normal 34-123 [facility] Comment on above: Order Comment: Michelle duron Type: BLOOD SPECIMENOrdering Facility: [facility] Address: [address] [address] Performed By: #### 2 4321-2, 75140-2 ####[facility] LABORATORYCLIA [id number] [address] OF [facility] ALT With P-5'-P [Catalytic activity/Vol] 10 U/L Normal 7-38 [facility] Comment on above: Order Comment: Speci men Type: BLOOD SPECIMENOrdering Facility: [facility] Address: [address] [address] Performed By: #### 2 4320-2, 15741-1 ####[facility]ATORYCLIA [id number] [address] OF [facility] AST With P-5'-P [Catalytic activity/Vol] 12 U/L Low 13-35 [facility] Comment on above: Order Comment: Speci men Type: BLOOD SPECIMENOrdering Facility: [facility] Address: [address] [address] Performed By: #### 2 2, 45152-5 ####[facility] LABORATORYCLIA [id number] [address] [place] Bilirubin [Mass/Vol] 0.2 mg/dL Normal 0.2-1.3 [facility] Comment on above: Order Comment: Speci men Type: BLOOD SPECIMENOrdering Facility: [facility] Address: [address] [address] Performed By: #### 2 4320-06, 15655-1 ####[facility] LABORATORYCLIA [id number] [address] Bilirubin.conjugated [Mass/Vol] mg/dL Normal <0.2 [facility] Comment on above: Order Comment: Speci men Type: BLOOD SPECIMENOrdering Facility: [facility] Address: [address] [address] Performed By: #### 2 2, 35903-4 ####[facility]ATORYCLIA [id number] [address] STATES OF [facility] Protein [Mass/Vol] 5.1 g/dL Low 6.3-8.0 [facility] Comment on above: Order Comment: Speci men Type: BLOOD SPECIMENOrdering Facility: [facility] Address: [address] [address] Performed By: #### 2 4320-2, 49216-4 ####[facility]ORATORYCLIA [id number] [place] [address] [place] LDH SerPl-cCncon 07-21-2022 LDH [Catalytic activity/Vol] 128 U/L Low 135-214 [facility] Comment on above: Order Comment: Speci men Type: BLOOD SPECIMENOrdering Facility: [facility] Address: [address] [place] [address] Performed By: #### 2 532-0 ####[facility] LABORATORYCLIA [id number] [place] [address] [place] THERAPY NTon 07-21-2022 THERAPY NT Normal [facility] US THORACENTESIS BIon 2022 US THORACENTESIS BI Normal [facility] XR CHEST 1V FRONTALon 2022 XR CHEST 1V FRONTAL Normal [facility] XR CHEST 1V FRONTAL Normal [facility] ALLIED HEALTHon 07-20-2022 ALLIED HEALTH Normal [facility] Basic metabolic 2000 panelon 07-20-2022 Anion gap [Moles/Vol] 7 mmol/L Low 9-18 [facility] Comment on above: Order Comment: Speci men Type: BLOOD SPECIMENOrdering Facility: [facility] Address: [address] [place] [address] Performed By: #### 2 4321-2 ####[facility] LABORATORYCLIA [id number] [place] [address] [place] Calcium [Mass/Vol] 8.6 mg/dL Normal 8.5-10.2 [facility] Comment on above: Order Comment: Speci men Type: BLOOD SPECIMENOrdering Facility: [facility] Address: [address] [place] [address] Performed By: #### 2 4321-2 ####[facility] LABORATORYCLIA [id number] [place] [address] [place] Chloride [Moles/Vol] 103 mmol/L Normal 97-105 [facility] Comment on above: Order Comment: Speci men Type: BLOOD SPECIMENOrdering Facility: [facility] Address: [address] [place] [address] Performed By: #### 2 4321-2 ####[facility] LABORATORYCLIA [id number] [address] STATES OF [facility] CO2 [Moles/Vol] 29 mmol/L Normal 22-30 [facility] Comment on above: Order Comment: Speci men Type: BLOOD SPECIMENOrdering Facility: [facility] Address: [address] [place] [address] Performed By: #### 2 4321-2 ####[facility] LABORATORYCLIA [id number] [address] OF [facility] Creatinine [Mass/Vol] 0.58 mg/dL Normal 0.58-0.96 [facility] Comment on above: Order Comment: Speci men Type: BLOOD SPECIMENOrdering Facility: [facility] Address: [address] [place] [address] Performed By: #### 2 4321-2 ####[facility] LABORATORYCLIA [id number] [address] ESTIMATED GLOMERULAR FILTRATION RATE 90 mL/min/1.73m??? Normal >=60 [facility] Comment on above: Order Comment: Speci men Type: BLOOD SPECIMENOrdering Facility: [facility] Address: [address] [place] [address] Result Comment: Ilda mated Glomerular Filtration Rate [...] actual GFR. Performed By: #### 2 4321-2 ####[facility] LABORATORYCLIA [id number] [address] Glucose [Mass/Vol] 126 mg/dL High 74-99 [facility] Comment on above: Order Comment: Speci men Type: BLOOD SPECIMENOrdering Facility: [facility] Address: [address] [place], [place] [address] Result Comment: The [place] [employer] (ADA) provides guidance for cutoff [...] Standards of Medical Care in Diabetes 2016, [place] [employer]. Diabetes Care. 2016.39(Suppl 1). Performed By: #### 2 4321-2 ####[facility] LABORATORYCLIA [id number] [place] [address] [place] Potassium [Moles/Vol] 4.4 mmol/L Normal 3.7-5.1 [facility] Comment on above: Order Comment: Speci men Type: BLOOD SPECIMENOrdering Facility: [facility] Address: [address] [address] Performed By: #### 2 1-2 ####[facility] LABORATORYCLIA [id number] [place] [address] [place] Sodium [Moles/Vol] 139 mmol/L Normal 136-144 [facility] Comment on above: Order Comment: Speci men Type: BLOOD SPECIMENOrdering Facility: [facility] Address: [address] [address] Performed By: #### 2 4321-2 ####[facility] LABORATORYCLIA [id number] [place] [address] [place] Urea nitrogen [Mass/Vol] 17 mg/dL Normal 7-21 [facility] Comment on above: Order Comment: Speci men Type: BLOOD SPECIMENOrdering Facility: [facility] Address: [address] [address] Performed By: #### 2 4321-2 ####[facility] LABORATORYCLIA [id number] [address] [place] CASE MGT INIT ASSESon 2022 CASE MGT INIT ASSES Normal [facility] CBC panel Auto (Bld)on 07-20 Erythrocyte distribution width (RBC) [Ratio] 14.2 % Normal 11.5-15.0 [facility] Comment on above: Order Comment: Speci men Type: BLOOD SPECIMENOrdering Facility: [facility] Address: [address] [place] [address] Performed By: #### 5 8410-2 ####[facility] LABORATORYCLIA [id number] [address] Hematocrit (Bld) [Volume fraction] 30.5 % Low 36.0-46.0 [facility] Comment on above: Order Comment: Speci men Type: BLOOD SPECIMENOrdering Facility: [facility] Address: [address] [place] [address] Performed By: #### 5 8410-2 ####[facility] LABORATORYCLIA [id number] [address] OF [facility] Hemoglobin (Bld) [Mass/Vol] 9.5 g/dL Low 11.5-15.5 [facility] Comment on above: Order Comment: Speci men Type: BLOOD SPECIMENOrdering Facility: [facility] Address: [address] [place] [address] Performed By: #### 5 8410-2 ####[facility] LABORATORYCLIA [id number] [address] [place] MCH (RBC) [Entitic mass] 31.1 pg Normal 26.0-34.0 [facility] Comment on above: Order Comment: Speci men Type: BLOOD SPECIMENOrdering Facility: [facility] Address: [address] [place] [address] Performed By: #### 5 8410-2 ####[facility] LABORATORYCLIA [id number] [address] STATES [facility] MCHC (RBC) [Mass/Vol] 31.1 g/dL Normal 30.5-36.0 [facility] Comment on above: Order Comment: Speci men Type: BLOOD SPECIMENOrdering Facility: [facility] Address: [address] [place] [address] Performed By: #### 5 8410-2 ####[facility] LABORATORYCLIA [id number] [address] MCV (RBC) [Entitic vol] 100.0 fL Normal 80.0-100.0 [facility] Comment on above: Order Comment: Speci men Type: BLOOD SPECIMENOrdering Facility: [facility] Address: [address] [place] [address] Performed By: #### 5 8410-2 ####[facility] LABORATORYCLIA [id number] [address] [place] Nucleated RBC (Bld) [#/Vol] 10*3/uL Normal <0.01 [facility] Comment on above: Order Comment: Speci men Type: BLOOD SPECIMENOrdering Facility: [facility] Address: [address] [address] Performed By: #### 5 8410-2 ####[facility] LABORATORYCLIA [id number] [address] STATES [facility] Platelet mean volume (Bld) [Entitic vol] 8.9 fL Low 9.0-12.7 [facility] Comment on above: Order Comment: Speci men Type: BLOOD SPECIMENOrdering Facility: [facility] Address: [address] [address] Performed By: #### 5 8410-2 ####[facility] LABORATORYCLIA [id number] [address] [place] Platelets (Bld) [#/Vol] 426 10*3/uL High 150-400 [facility] Comment on above: Order Comment: Speci men Type: BLOOD SPECIMENOrdering Facility: [facility] Address: [address] [place] [address] Performed By: #### 5 8410-2 ####[facility] LABORATORYCLIA [id number] [address] [place] RBC (Bld) [#/Vol] 3.05 10*6/uL Low 3.90-5.20 [facility] Comment on above: Order Comment: Speci men Type: BLOOD SPECIMENOrdering Facility: [facility] Address: [address] [place] [address] Performed By: #### 5 8410-2 ####[facility] LABORATORYCLIA [id number] [address] [place] WBC (Bld) [#/Vol] 8.17 10*3/uL Normal 3.70-11.00 [facility] Comment on above: Order Comment: Speci men Type: BLOOD SPECIMENOrdering Facility: [facility] Address: [address] [place] [address] Performed By: #### 5 8410-2 ####[facility] LABORATORYCLIA [id number] [address] OF [facility] Lactate (Bld) [Moles/Vol]on 07-20-2022 Lactate [Moles/Vol] 1.7 mmol/L Normal 0.5-2.2 [facility] Comment on above: Order Comment: Speci men Type: BLOOD SPECIMENOrdering Facility: [facility] Address: [address] [place] [address] Performed By: #### 3 2693-4 ####[facility] LABORATORYCLIA [id number] [address] [place] XR CHEST 1V FRONTALon 2022 XR CHEST 1V FRONTAL Normal [facility] ALLIED HEALTHon 07-19-2022 ALLIED HEALTH Normal [facility] ANES PRE-OPon 07-19-2022 ANES PRE-OP Normal [facility] BF MANUAL DIFFon 07-19-2022 DIF TTL, BODY FLUID 100 cells counted Normal [facility] Comment on above: Order Comment: Speci men Type: THORACENTESISOrdering Facility: [facility] Address: [address] [place] [address] Performed By: #### L [id number], CCBF ####[facility]ORATORYCLIA [id number] [address] [place] LYMPH%, BF 8 % Low 18-36 [facility] Comment on above: Order Comment: Speci men Type: THORACENTESISOrdering Facility: [facility] Address: [address] [place] [address] Performed By: #### L [id number], CCBF ####[facility]ATORYCLIA [id number] [address] [place] MACRO%, BF 1 % Low 64-80 [facility] Comment on above: Order Comment: Speci men Type: THORACENTESISOrdering Facility: [facility] Address: [address] [place] [address] Performed By: #### L [id number], CCBF ####[facility]ORATORYCLIA [id number] [address] [place] %, BF 3 % High 0-2 [facility] Comment on above: Order Comment: Speci men Type: THORACENTESISOrdering Facility: [facility] Address: [address] [place] [address] Performed By: #### L [id number], CCBF ####[facility]ORATORYCLIA [id number] [address] MONO% BF 6 % Normal [facility] Comment on above: Order Comment: Speci men Type: THORACENTESISOrdering Facility: [facility] Address: [address] [place] [address] Performed By: #### L [id number], CCBF ####[facility]ATORYCLIA [id number] [address] NEUT%, BF 82 % High 0-1 [facility] Comment on above: Order Comment: Speci men Type: THORACENTESISOrdering Facility: [facility] Address: [address] [place] [address] Performed By: #### L [id number], CCBF ####[facility]ATORYCLIA [id number] [address] [place] DIF TTL, BODY FLUID 100 cells counted Normal [facility] Comment on above: Order Comment: Speci men Type: FLUID SPECIMENOrdering Facility: [facility] Address: [address] [place] [address] Performed By: #### L [id number], CCBF ####[facility]ATORYCLIA [id number] [address] EOSIN%, BF 1 % Normal [facility] Comment on above: Order Comment: Speci men Type: FLUID SPECIMENOrdering Facility: [facility] Address: [address] [place] [address] Performed By: #### L [id number], CCBF ####[facility]ATORYCLIA [id number] [address] [place] LYMPH%, BF 65 % High 18-36 [facility] Comment on above: Order Comment: Speci men Type: FLUID SPECIMENOrdering Facility: [facility] Address: [address] [place] [address] Performed By: #### L [id number], CCBF ####[facility]ATORYCLIA [id number] [address] MONO% BF 4 % Normal [facility] Comment on above: Order Comment: Speci men Type: FLUID SPECIMENOrdering Facility: [facility] Address: [address] [place] [address] Performed By: #### L [id number], CCBF ####[facility]ATORYCLIA [id number] [address] [place] NEUT%, BF 30 % High 0-1 [facility] Comment on above: Order Comment: Speci men Type: FLUID SPECIMENOrdering Facility: [facility] Address: [address] [place] [address] Performed By: #### L [id number], CCBF ####[facility]ATORYCLIA [id number] [address] BODY FLUID CELL COUNTon 03-0 Clarity (Unsp spec) Clear Normal Clear [facility] Comment on above: Order Comment: Speci men Type: THORACENTESISOrdering Facility: [facility] Address: [address] [place] [address] Performed By: #### L [id number], CCBF ####[facility] LABORATORYCLIA [id number] [address] Color (Body fld) Yellow Normal Yellow [facility] Comment on above: Order Comment: Speci men Type: THORACENTESISOrdering Facility: [facility] Address: [address] [place] [address] Performed By: #### L [id number], CCBF ####[facility]ORATORYCLIA [id number] [address] RBC Manual cnt (Body fld) [#/Vol] 6000 /uL High <2000 [facility] Comment on above: Order Comment: Speci men Type: THORACENTESISOrdering Facility: [facility] Address: [address] [place] [address] Performed By: #### L [id number], CCBF ####[facility] LABORATORYCLIA [id number] [address] Specimen source Nom (Body fld) PLEURAL FLUID. Normal [facility] Comment on above: Order Comment: Speci men Type: THORACENTESISOrdering Facility: [facility] Address: [address] [place] [address] Performed By: #### L [id number], CCBF ####[facility] LABORATORYCLIA [id number] [address] WBC Manual cnt (Body fld) [#/Vol] 198 /uL Normal <1000 [facility] Comment on above: Order Comment: Speci men Type: THORACENTESISOrdering Facility: [facility] Address: [address] [place] [address] Performed By: #### L [id number], CCBF ####[facility]ORATORYCLIA [id number] [address] Clarity (Unsp spec) Clear Normal Clear [facility] Comment on above: Order Comment: Speci men Type: FLUID SPECIMENOrdering Facility: [facility] Address: [address] [place] [address] Performed By: #### L [id number], CCBF ####[facility] LABORATORYCLIA [id number] [address] Color (Body fld) Cierra Abnormal Yellow [facility] Comment on above: Order Comment: Speci men Type: FLUID SPECIMENOrdering Facility: [facility] Address: [address] [place] [address] Performed By: #### L [id number], CCBF ####[facility] LABORATORYCLIA [id number] [address] RBC Manual cnt (Body fld) [#/Vol] 6235734 /uL High <2000 [facility] Comment on above: Order Comment: Speci men Type: FLUID SPECIMENOrdering Facility: [facility] Address: [address] [place] [address] Performed By: #### L [id number], CCBF ####[facility] LABORATORYCLIA [id number] [address] Specimen source Nom (Body fld) PERICARDIAL FLUID. Normal [facility] Comment on above: Order Comment: Speci men Type: FLUID SPECIMENOrdering Facility: [facility] Address: [address] [place] [address] Performed By: #### L [id number], CCBF ####[facility] LABORATORYCLIA [id number] [address] WBC Manual cnt (Body fld) [#/Vol] 8500 /uL High <1000 [facility] Comment on above: Order Comment: Speci men Type: FLUID SPECIMENOrdering Facility: [facility] Address: [address] [place] [address] Performed By: #### L [id number], CC ####[facility] LABORATORYCLIA [id number] [address] BRIEF OP NOTon 07-19-2022 BRIEF OP NOT Normal [facility] Bacteria Bld Culton 07-20-19 23 Bacteria identified Cx Nom (Bld) CULTURE, BLOOD: No growth 5 days Normal [facility] Comment on above: Performed By: #### 6 00-7 ####[facility] LABORATORYCLIA [id number] [address] Bacteria Fld Culton 07-20-19 23 Bacteria identified Cx Nom (Body fld) CULTURE, BODY FLD: No growth 5 days GRAM STAIN: No organisms seen Few Polymorphonuclear leukocytes Moderate Red Blood Cells Normal [facility] Comment on above: Performed By: #### 6 11, 635-3, 25923-7 ####[facility] LABORATORYCLIA [id number] [address] Bacteria identified Cx Nom (Body fld) CULTURE, BODY FLD: No growth 5 days GRAM STAIN: No organisms seen Many Polymorphonuclear leukocytes Many Red Blood Cells Normal [facility] Comment on above: Performed By: #### 6 -, 635-3, 81778-1 ####[facility]ORATORYCLIA [id number] [address] Bacteria Spec Anaerobe Culto n 07-19-2022 Bacteria identified Anaer cx Nom (Unsp spec) Negative Normal [facility] Comment on above: Performed By: #### 6 11-, 635-3, 00793-4 ####[facility]ORATORYCLIA [id number] [address] Bacteria identified Anaer cx Nom (Unsp spec) Negative Normal [facility] Comment on above: Performed By: #### 6 -, 635-3, 32757-5 ####[facility] LABORATORYCLIA [id number] [address] Basic metabolic 2000 panelon 07-19-2022 Anion gap [Moles/Vol] 8 mmol/L Low 9-18 [facility] Comment on above: Order Comment: Speci men Type: BLOOD SPECIMENOrdering Facility: [facility] Address: [address] [place] [address] Performed By: #### 2 4321-2 ####[facility] LABORATORYCLIA [id number] [place] [address] [place] Calcium [Mass/Vol] 9.2 mg/dL Normal 8.5-10.2 [facility] Comment on above: Order Comment: Speci men Type: BLOOD SPECIMENOrdering Facility: [facility] Address: [address] [place] [address] Performed By: #### 2 4321-2 ####[facility] LABORATORYCLIA [id number] [address] [place] Chloride [Moles/Vol] 103 mmol/L Normal 97-105 [facility] Comment on above: Order Comment: Speci men Type: BLOOD SPECIMENOrdering Facility: [facility] Address: [address] [place] [address] Performed By: #### 2 4321-2 ####[facility] LABORATORYCLIA [id number] [place] [address] [place] CO2 [Moles/Vol] 29 mmol/L Normal 22-30 [facility] Comment on above: Order Comment: Speci men Type: BLOOD SPECIMENOrdering Facility: [facility] Address: [address] [place] [address] Performed By: #### 2 4321-2 ####[facility]ORATORYCLIA [id number] [address] [place] Creatinine [Mass/Vol] 0.60 mg/dL Normal 0.58-0.96 [facility] Comment on above: Order Comment: Speci men Type: BLOOD SPECIMENOrdering Facility: [facility] Address: [address] [place] [address] Performed By: #### 2 4321-2 ####[facility] LABORATORYCLIA [id number] [place] [address] [place] ESTIMATED GLOMERULAR FILTRATION RATE 89 mL/min/1.73m??? Normal >=60 [facility] Comment on above: Order Comment: Michelle duron Type: BLOOD SPECIMENOrdering Facility: [facility] Address: [address] [place] [address] Result Comment: Ilda mated Glomerular Filtration Rate [...] actual GFR. Performed By: #### 2 4321-2 ####[facility]PITALIA [id number] [place] [address] [place] Glucose [Mass/Vol] 99 mg/dL Normal 74-99 [facility] Comment on above: Order Comment: Speci domi Type: BLOOD SPECIMENOrdering Facility: [facility] Address: [address] [place] [address] Result Comment: The [place] [employer] (ADA) provides guidance for cutoff [...] Standards of Medical Care in Diabetes 2016, [place] [employer]. Diabetes Care. 2016.39(Suppl 1). Performed By: #### 2 4321-2 ####[facility] LABORATORYCLIA [id number] [place] [address] [place] Potassium [Moles/Vol] 4.1 mmol/L Normal 3.7-5.1 [facility] Comment on above: Order Comment: Speci men Type: BLOOD SPECIMENOrdering Facility: [facility] Address: [address] [place] [address] Performed By: #### 2 4321-2 ####[facility] LABORATORYCLIA [id number] [address] STATES OF [facility] Sodium [Moles/Vol] 140 mmol/L Normal 136-144 [facility] Comment on above: Order Comment: Speci men Type: BLOOD SPECIMENOrdering Facility: [facility] Address: [address] [place] [address] Performed By: #### 2 4321-2 ####[facility]ORATORYCLIA [id number] [address] [place] Urea nitrogen [Mass/Vol] 18 mg/dL Normal 7-21 [facility] Comment on above: Order Comment: Speci men Type: BLOOD SPECIMENOrdering Facility: [facility] Address: [address] [place] [address] Performed By: #### 2 4321-2 ####[facility]ORATORYCLIA [id number] [address] STATES OF [facility] CBC panel Auto (Bld)on 07-19 Erythrocyte distribution width (RBC) [Ratio] 14.3 % Normal 11.5-15.0 [facility] Comment on above: Order Comment: Speci men Type: BLOOD SPECIMENOrdering Facility: [facility] Address: [address] [place] [address] Performed By: #### 5 8410-2 ####[facility]ORATORYCLIA [id number] [address] Hematocrit (Bld) [Volume fraction] 35.9 % Low 36.0-46.0 [facility] Comment on above: Order Comment: Speci men Type: BLOOD SPECIMENOrdering Facility: [facility] Address: [address] [place] [address] Performed By: #### 5 8410-2 ####[facility]ORATORYCLIA [id number] [address] Hemoglobin (Bld) [Mass/Vol] 10.7 g/dL Low 11.5-15.5 [facility] Comment on above: Order Comment: Speci men Type: BLOOD SPECIMENOrdering Facility: [facility] Address: [address] [place] [address] Performed By: #### 5 8410-2 ####[facility]ORATORYCLIA [id number] [address] MCH (RBC) [Entitic mass] 30.8 pg Normal 26.0-34.0 [facility] Comment on above: Order Comment: Speci men Type: BLOOD SPECIMENOrdering Facility: [facility] Address: [address] [place] [address] Performed By: #### 5 8410-2 ####[facility]ORATORYCLIA [id number] [address] MCHC (RBC) [Mass/Vol] 29.8 g/dL Low 30.5-36.0 [facility] Comment on above: Order Comment: Speci men Type: BLOOD SPECIMENOrdering Facility: [facility] Address: [address] [place] [address] Performed By: #### 5 8410-2 ####[facility]ORATORYCLIA [id number] [address] STATES OF [facility] MCV (RBC) [Entitic vol] 103.5 fL High 80.0-100.0 [facility] Comment on above: Order Comment: Speci men Type: BLOOD SPECIMENOrdering Facility: [facility] Address: [address] [place] [address] Performed By: #### 5 8410-2 ####[facility]ORATORYCLIA [id number] [address] Nucleated RBC (Bld) [#/Vol] 10*3/uL Normal <0.01 [facility] Comment on above: Order Comment: Speci men Type: BLOOD SPECIMENOrdering Facility: [facility] Address: [address] [address] Performed By: #### 5 8410-2 ####[facility]ORATORYCLIA [id number] [address] [place] Platelet mean volume (Bld) [Entitic vol] 8.9 fL Low 9.0-12.7 [facility] Comment on above: Order Comment: Speci men Type: BLOOD SPECIMENOrdering Facility: [facility] Address: [address] [place] [address] Performed By: #### 5 8410-2 ####[facility]ORATORYCLIA [id number] [place] [address] [place] Platelets (Bld) [#/Vol] 393 10*3/uL Normal 150-400 [facility] Comment on above: Order Comment: Speci men Type: BLOOD SPECIMENOrdering Facility: [facility] Address: [address] [place] [address] Performed By: #### 5 8410-2 ####[facility]ORATORYCLIA [id number] [place] [address] [place] RBC (Bld) [#/Vol] 3.47 10*6/uL Low 3.90-5.20 [facility] Comment on above: Order Comment: Speci men Type: BLOOD SPECIMENOrdering Facility: [facility] Address: [address] [place] [address] Performed By: #### 5 8410-2 ####[facility]ORATORYCLIA [id number] [address] [place] WBC (Bld) [#/Vol] 9.95 10*3/uL Normal 3.70-11.00 [facility] Comment on above: Order Comment: Speci men Type: BLOOD SPECIMENOrdering Facility: [facility] Address: [address] [place] [address] Performed By: #### 5 8410-2 ####[facility]ORATORYCLIA [id number] [address] CONSULT PROGon 07-19-2022 CONSULT PROG Normal [facility] CONSULT PROG Normal [facility] CYTOLOGY NON-GYNon 3 CASE REPORT Normal [facility] Comment on above: Order Comment: Speci men Type: FLUID SPECIMENOrdering Facility: [facility] Address: [address] [place] [address] Result Comment: [facility] Cytology Report Case: [id number] Provider: Armand Becker MD Collected: 07/19/2022 05:01 PMOrdering Location: [address] Received: 07/20/2022 04:19 AMPathologist: KARLA Silveirapecimens: A) - PERICARDIAL FLUID. B) - PLEURAL FLUID. Performed By: #### C YTONON ####[facility] LABORATORYCLIA [id number] [address] CLINICAL HISTORY Normal [facility] Comment on above: Order Comment: Speci men Type: FLUID SPECIMENOrdering Facility: [facility] Address: [address] [place] [address] Result Comment: Pre- op diagnosis:Pericardial effusion [I31.39] Performed By: #### C YTONON ####[facility] LABORATORYCLIA [id number] [address] DIAGNOSIS COMMENT Normal [facility] Comment on above: Order Comment: Speci men Type: FLUID SPECIMENOrdering Facility: [facility] Address: [address] [place] [address] Result Comment: Immu nostains were applied to consider an occult malignancy and results are negative ( negative GATA3, estrogen receptor, and TTF1). Mesothelial markers, calretinin and D2-40 are positive. Results support the above diagnosis.Laboratory Developed Test (LDT) Disclaimer:Performance characteristics of immunohistochemical, immunofluorescent and chromogenic in-situ hybridization tests have been determined by the performing laboratory within [facility] [place] ([facility], [facility], [facility], [facility], [facility], or [facility]) in a manner consistent with CLIA requirements. One or more of these tests have not been cleared or approved by the FDA. [facility] is regulated under CLIA as qualified to perform high-complexity testing. These tests are used for clinical purposes. They should not be regarded as investigational or for research. Positive and negative controls stain appropriately. Performed By: #### C YTONON ####[facility] LABORATORYCLIA [id number] [address] FINAL DIAGNOSIS Normal [facility] Comment on above: Order Comment: Speci men Type: FLUID SPECIMENOrdering Facility: [facility] Address: [address] [place] [address] Result Comment: A - PERICARDIAL FLUID. Negative for malignant cells.B - PLEURAL FLUID. Negative for malignant cells. Reactive mesothelial cells. See comment.The following cell blocks were associated with this case:A1 Cell Block, Formalin Fixed AkronB1 Cell Block, Formalin Fixed [place] Performed By: #### C YTONON ####[facility] LABORATORYCLIA [id number] [address] FINAL PERFORMING LAB Normal [facility] Comment on above: Order Comment: Speci men Type: FLUID SPECIMENOrdering Facility: [facility] Address: [address] [place] [address] Result Comment: Tech nical component, paper grader screening performed at [facility], [address] [place] [address] CLIA# [id number] interpretation performed at [facility], [address] [place] [address] CLIA# [id number] Director: Steve Marrero M.D. Performed By: #### C YTONON ####[facility] LABORATORYIA [id number] [address] GROSS DESCRIPTION Normal [facility] Comment on above: Order Comment: Speci men Type: FLUID SPECIMENOrdering Facility: [facility] Address: [address] [address] Result Comment: A. P ERICARDIAL FLUID.30 cc cloudy red fluid. ThinPrep and Cell Block prepared.B. PLEURAL FLUID.25 cc hazy yellow fluid with material. ThinPrep and Cell Block prepared. Performed By: #### C NADIYA ####[facility] LABORATORYCLIA [id number] [address] ORDER COMMENT Normal [facility] Comment on above: Order Comment: Speci men Type: FLUID SPECIMENOrdering Facility: [facility] Address: [address] [place] [address] Result Comment: Pre- op diagnosis:Pericardial effusion [I31.39] Performed By: #### C NADIYA ####[facility] LABORATORYIA [id number] [address] Glucose Fld-mCncon Glucose (Body fld) [Mass/Vol] 125 mg/dL Normal See Comment [facility] Comment on above: Order Comment: Speci men Type: THORACENTESISOrdering Facility: [facility] Address: [address] [place] [address] Result Comment: Syno vial fluid: Synovial fluid [...] document C49A. TRUDY Bradley: Clinical Laboratory Standards [place]: 2007. Performed By: #### 2 881-1, 2529-6, 2344-0 ####[facility] LABCLIA [id number] [facility] [id number] [place] INTRAOPERATIVE ECHO PREon INTRAOPERATIVE ECHO PRE Normal [facility] LDH Fld-cCncon 07-19-2022 LDH (Body fld) [Catalytic activity/Vol] 120 U/L Normal See Comment [facility] Comment on above: Order Comment: Speci men Type: THORACENTESISOrdering Facility: [facility] Address: [address] [facility] [address] [place] [id number] Result Comment: Pleu ral fluids: Pleural fluid [...] document C49A. TRUDY Bradley: Clinical Laboratory Standards [place]: 2007.Reference: 2. Saida MCCLELLAN, Kenyon Vela. Body [...] Performed By: #### 2 881-1, 2529-6, 2344-0 ####[facility] LABCLIA [id number] [address] [address] [address] [place] Microorganism Spec Culton Microorganism identified Cx Nom (Unsp spec) CULTURE, AFB: No Acid Fast Bacilli isolated after 42 days AFB STAIN: No acid fast bacilli seen by flurochrome stain Normal [facility] Comment on above: Performed By: #### 6 11-4, 635-3, 47964-2 ####[facility] LABORATORYCLIA [id number] [place] [address] [place] Microorganism identified Cx Nom (Unsp spec) CULTURE, AFB: No Acid Fast Bacilli isolated after 42 days AFB STAIN: No acid fast bacilli seen by flurochrome stain Normal [facility] Comment on above: Performed By: #### 6 11-4, 635-3, 44164-4 ####[facility] LABORATORYCLIA [id number] [address] PH PLEURAL FLUIDon 3 Fluid Nom (Body fld) PLURAL Normal [facility] Comment on above: Order Comment: Speci men Type: THORACENTESISOrdering Facility: [facility] Address: [address] [place] [address] Performed By: #### L [id number] ####[facility] LABORATORYCLIA [id number] [address] pH (Body fld) 7.6 [pH] Normal [facility] Comment on above: Order Comment: Speci men Type: THORACENTESISOrdering Facility: [facility] Address: [address] [place] [address] Result Comment: No r eference range has been established for this specimen type. Performed By: #### L [id number] ####[facility] LABORATORYCLIA [id number] [address] Prot Fld-mCncon 07-19-2022 Protein (Body fld) [Mass/Vol] 2.8 g/dL Normal See Comment [facility] Comment on above: Order Comment: Speci [facility] Type: THORACENTESISOrdering Facility: [facility] Address: [address] [place] [address] Result Comment: Sero us fluids: Effusions are [...] document C49A. TRUDY Bradley: Clinical Laboratory Standards [place]: 2007. Performed By: #### 2 881-1, 2529-6, 2344-0 ####[facility] LABCLIA [id number] [facility] [id number] SURGICAL PATHOLOGYon 023 CASE REPORT Normal [facility] Comment on above: Order Comment: Speci men Type: TISSUE SPECIMENOrdering Facility: [facility] Address: [address] [place] [address] Result Comment: Surg ical Pathology Report Case: [id number] Provider: Armand Becker MD Collected: 07/19/2022 04:59 PMOrdering Location: [address] Received: 07/20/2022 08:11 AMPathologist: KARLA Tampecimen: PERICARDIUM Performed By: #### S ####[facility] LABORATORYCLIA [id number] [address] CLINICAL HISTORY Normal [facility] Comment on above: Order Comment: Speci men Type: TISSUE SPECIMENOrdering Facility: [facility] Address: [address] [place] [address] Result Comment: Pre- op diagnosis:Pericardial effusion [I31.39] Performed By: #### S ####[facility] LABORATORYCLIA [id number] [address] DIAGNOSIS COMMENT There is no evidence of atypia or malignancy seen. This case was reviewed by Dr. Fritz Corona who agrees with this assessment. Normal [facility] Comment on above: Order Comment: Speci men Type: TISSUE SPECIMENOrdering Facility: [facility] Address: [address] [place] [address] Performed By: #### S ####[facility] LABORATORYCLIA [id number] [address] FINAL DIAGNOSIS Normal [facility] Comment on above: Order Comment: Speci men Type: TISSUE SPECIMENOrdering Facility: [facility] Address: [address] [place] [address] Result Comment: A. P ericardium, biopsy:- Fibrinous pericarditis. See comment. Performed By: #### S ####[facility] LABORATORYCLIA [id number] [address] FINAL PERFORMING LAB Normal [facility] Comment on above: Order Comment: Speci men Type: TISSUE SPECIMENOrdering Facility: [facility] Address: [address] [place] [address] Result Comment: Diag nostic interpretation performed at [facility], [address] [place] [address] CLIA# [id number] Director: Steve Marrero M.D. Performed By: #### S ####[facility] LABORATORYCLIA [id number] [address] GROSS DESCRIPTION A. PERICARDIUM Normal [facility] Comment on above: Order Comment: Speci men Type: TISSUE SPECIMENOrdering Facility: [facility] Address: [address] [place] [address] Result Comment: Rece ived in formalin labeled as pericardium is a ennis, irregularly shaped, slightly roughened and cauterized tissue fragment measuring 0.9 x 0.5 x 0.3 cm. The specimen is bisected and totally submitted in 1 cassette.Gross examination performed at [facility], [address] [place] [address] CLIA# [id number] July 21, 2022 12:47 PM Performed By: #### S ####[facility] LABORATORYCLIA [id number] [address] Vancomycin random [Mass/Vol] on 07-19-2022 Vancomycin [Mass/Vol] 12.8 ug/mL Normal 10.0-20.0 [facility] Comment on above: Order Comment: Speci men Type: BLOOD SPECIMENOrdering Facility: [facility] Address: [address] [address] Result Comment: Refe rence ranges and high/low indicator flags are provided as general guidelines only. The treating physician must determine appropriate target levels/dosing based on the specific clinical situation. Performed By: #### 4 091-5 ####[facility] LABORATORYCLIA [id number] [place] [address] [place] XR CHEST 1V FRONTALon 2022 XR CHEST 1V FRONTAL Normal [facility] ALLIED HEALTHon 07-18-2022 ALLIED HEALTH Normal [facility] ALLIED HEALTH Normal [facility] Basic metabolic 2000 panelon 07-18-2022 Anion gap [Moles/Vol] 11 mmol/L Normal 9-18 [facility] Comment on above: Order Comment: Speci men Type: BLOOD SPECIMENOrdering Facility: [facility] Address: [address] [place] [address] Performed By: #### 2 4321-2 ####[facility] LABORATORYCLIA [id number] [place] [address] [place] Calcium [Mass/Vol] 9.1 mg/dL Normal 8.5-10.2 [facility] Comment on above: Order Comment: Speci men Type: BLOOD SPECIMENOrdering Facility: [facility] Address: [address] [place] [address] Performed By: #### 2 4321-2 ####[facility] LABORATORYCLIA [id number] [place] [address] [place] Chloride [Moles/Vol] 99 mmol/L Normal 97-105 [facility] Comment on above: Order Comment: Speci men Type: BLOOD SPECIMENOrdering Facility: [facility] Address: [address] [address] Performed By: #### 2 4321-2 ####[facility] LABORATORYCLIA [id number] [place] [address] [place] CO2 [Moles/Vol] 26 mmol/L Normal 22-30 [facility] Comment on above: Order Comment: Speci men Type: BLOOD SPECIMENOrdering Facility: [facility] Address: [address] [address] Performed By: #### 2 4321-2 ####[facility]PITALCLIA [id number] [address] Creatinine [Mass/Vol] 0.64 mg/dL Normal 0.58-0.96 [facility] Comment on above: Order Comment: Speci men Type: BLOOD SPECIMENOrdering Facility: [facility] Address: [address] [address] Performed By: #### 2 4321-2 ####[facility] LABORATORYCLIA [id number] [address] ESTIMATED GLOMERULAR FILTRATION RATE 88 mL/min/1.73m??? Normal >=60 [facility] Comment on above: Order Comment: Speci men Type: BLOOD SPECIMENOrdering Facility: [facility] Address: [address] [place] [address] Result Comment: Ilda mated Glomerular Filtration Rate [...] actual GFR. Performed By: #### 2 4321-2 ####[facility] LABORATORYCLIA [id number] [address] [id number] [place] Glucose [Mass/Vol] 142 mg/dL High 74-99 [facility] Comment on above: Order Comment: Speci men Type: BLOOD SPECIMENOrdering Facility: [facility] Address: [address] [place] [address] Result Comment: The [place] Diabetes Association (ADA) provides guidance for cutoff [...] Standards of Medical Care in Diabetes 2016, [place] [employer]. Diabetes Care. 2016.39(Suppl 1). Performed By: #### 2 4321-2 ####[facility] LABORATORYCLIA [id number] [place] [address] [place] Potassium [Moles/Vol] 4.2 mmol/L Normal 3.7-5.1 [facility] Comment on above: Order Comment: Speci men Type: BLOOD SPECIMENOrdering Facility: [facility] Address: [address] [place] [address] Performed By: #### 2 4321-2 ####[facility] LABORATORYCLIA [id number] [place] [address] [place] Sodium [Moles/Vol] 136 mmol/L Normal 136-144 [facility] Comment on above: Order Comment: Speci men Type: BLOOD SPECIMENOrdering Facility: [facility] Address: [address] [place] [address] Performed By: #### 2 4321-2 ####[facility] LABORATORYCLIA [id number] [place] [address] [place] Urea nitrogen [Mass/Vol] 21 mg/dL Normal 7-21 [facility] Comment on above: Order Comment: Speci men Type: BLOOD SPECIMENOrdering Facility: [facility] Address: [address] [address] Performed By: #### 2 4321-2 ####[facility] LABORATORYCLIA [id number] [place] [address] [place] Anion gap [Moles/Vol] 11 mmol/L Normal 9-18 [facility] Comment on above: Order Comment: Speci men Type: BLOOD SPECIMENOrdering Facility: [facility] Address: [address] [address] Performed By: #### 2 4325-3, 3040-3, 56700-1 ####[facility] LABORATORYCLIA [id number] [place] [address] [place] Calcium [Mass/Vol] 8.9 mg/dL Normal 8.5-10.2 [facility] Comment on above: Order Comment: Speci men Type: BLOOD SPECIMENOrdering Facility: [facility] Address: [address] [place] [address] Performed By: #### 2 4325-3, 3040-3, 69619-4 ####[facility] LABORATORYCLIA [id number] [place] [address] [place] Chloride [Moles/Vol] 98 mmol/L Normal 97-105 [facility] Comment on above: Order Comment: Speci men Type: BLOOD SPECIMENOrdering Facility: [facility] Address: [address] [place] [address] Performed By: #### 2 4324-3, 3040-3, 72587-7 ####[facility] LABORATORYCLIA [id number] [address] STATES [place] CO2 [Moles/Vol] 25 mmol/L Normal 22-30 [facility] Comment on above: Order Comment: Speci men Type: BLOOD SPECIMENOrdering Facility: [facility] Address: [address] [place] [address] Performed By: #### 2 4325-3, 3040-3, 89628-6 ####[facility] LABORATORYCLIA [id number] [place] [address] [place] Creatinine [Mass/Vol] 0.71 mg/dL Normal 0.58-0.96 [facility] Comment on above: Order Comment: Speci men Type: BLOOD SPECIMENOrdering Facility: [facility] Address: [address] [place] [address] Performed By: #### 2 4325-3, 3040-3, 35700-0 ####[facility] LABORATORYCLIA [id number] [place] [address] [place] ESTIMATED GLOMERULAR FILTRATION RATE 84 mL/min/1.73m??? Normal >=60 [facility] Comment on above: Order Comment: Michelle duron Type: BLOOD SPECIMENOrdering Facility: [facility] Address: [address] [place] [address] Result Comment: Ilda mated Glomerular Filtration Rate [...] GFR. Performed By: #### 2 4325-3, 3040-3, 76772-0 ####[facility] HOSPITALCLIA [id number] [place] [address] [place] Glucose [Mass/Vol] 177 mg/dL High 74-99 [facility] Comment on above: Order Comment: Michelle duron Type: BLOOD SPECIMENOrdering Facility: [facility] Address: [address] [place] [address] Result Comment: The [place] Diabetes Association (ADA) provides guidance for cutoff [...] Standards of Medical Care in Diabetes 2016, [place] [employer]. Diabetes Care. 2016.39(Suppl 1). Performed By: #### 2 4325-3, 3040-3, 64555-7 ####[facility] LABORATORYCLIA [id number] [place] [address] [place] Potassium [Moles/Vol] 4.4 mmol/L Normal 3.7-5.1 [facility] Comment on above: Order Comment: Michelle duron Type: BLOOD SPECIMENOrdering Facility: [facility] Address: [address] [address] Performed By: #### 2 4325-3, 3040-3, 99702-8 ####[facility] LABORATORYCLIA [id number] [address] Sodium [Moles/Vol] 134 mmol/L Low 136-144 [facility] Comment on above: Order Comment: Speci men Type: BLOOD SPECIMENOrdering Facility: [facility] Address: [address] [place] [address] Performed By: #### 2 4325-3, 3040-3, 52401-9 ####[facility] LABORATORYCLIA [id number] [address] [place] Urea nitrogen [Mass/Vol] 22 mg/dL High 7-21 [facility] Comment on above: Order Comment: Speci men Type: BLOOD SPECIMENOrdering Facility: [facility] Address: [address] [place] [address] Performed By: #### 2 4325-3, 3040-3, 98457-3 ####[facility] LABORATORYCLIA [id number] [address] [place] CBC panel Auto (Bld)on 07-18 Erythrocyte distribution width (RBC) [Ratio] 14.5 % Normal 11.5-15.0 [facility] Comment on above: Order Comment: Speci men Type: BLOOD SPECIMENOrdering Facility: [facility] Address: [address] [place] [address] Performed By: #### 5 8410-2 ####[facility] LABORATORYCLIA [id number] [address] Hematocrit (Bld) [Volume fraction] 35.9 % Low 36.0-46.0 [facility] Comment on above: Order Comment: Speci men Type: BLOOD SPECIMENOrdering Facility: [facility] Address: [address] [place] [address] Performed By: #### 5 8410-2 ####[facility] LABORATORYCLIA [id number] [address] STATES OF [facility] Hemoglobin (Bld) [Mass/Vol] 11.0 g/dL Low 11.5-15.5 [facility] Comment on above: Order Comment: Speci men Type: BLOOD SPECIMENOrdering Facility: [facility] Address: [address] [place] [address] Performed By: #### 5 8410-2 ####[facility] LABORATORYCLIA [id number] [address] MCH (RBC) [Entitic mass] 31.3 pg Normal 26.0-34.0 [facility] Comment on above: Order Comment: Speci men Type: BLOOD SPECIMENOrdering Facility: [facility] Address: [address] [place] [address] Performed By: #### 5 8410-2 ####[facility] LABORATORYCLIA [id number] [address] STATES [facility] MCHC (RBC) [Mass/Vol] 30.6 g/dL Normal 30.5-36.0 [facility] Comment on above: Order Comment: Speci men Type: BLOOD SPECIMENOrdering Facility: [facility] Address: [address] [place] [address] Performed By: #### 5 8410-2 ####[facility] LABORATORYCLIA [id number] [address] [place] MCV (RBC) [Entitic vol] 102.3 fL High 80.0-100.0 [facility] Comment on above: Order Comment: Speci men Type: BLOOD SPECIMENOrdering Facility: [facility] Address: [address] [place] [address] Performed By: #### 5 8410-2 ####[facility] LABORATORYCLIA [id number] [address] Nucleated RBC (Bld) [#/Vol] 10*3/uL Normal <0.01 [facility] Comment on above: Order Comment: Speci men Type: BLOOD SPECIMENOrdering Facility: [facility] Address: [address] [address] Performed By: #### 5 8410-2 ####[facility] LABORATORYCLIA [id number] [address] [place] Platelet mean volume (Bld) [Entitic vol] 8.9 fL Low 9.0-12.7 [facility] Comment on above: Order Comment: Speci men Type: BLOOD SPECIMENOrdering Facility: [facility] Address: [address] [place] [address] Performed By: #### 5 8410-2 ####[facility] LABORATORYCLIA [id number] [address] [place] Platelets (Bld) [#/Vol] 425 10*3/uL High 150-400 [facility] Comment on above: Order Comment: Speci men Type: BLOOD SPECIMENOrdering Facility: [facility] Address: [address] [place] [address] Performed By: #### 5 8410-2 ####[facility] LABORATORYCLIA [id number] [place] [address] [place] RBC (Bld) [#/Vol] 3.51 10*6/uL Low 3.90-5.20 [facility] Comment on above: Order Comment: Speci men Type: BLOOD SPECIMENOrdering Facility: [facility] Address: [address] [place] [address] Performed By: #### 5 8410-2 ####[facility] LABORATORYCLIA [id number] [address] [place] WBC (Bld) [#/Vol] 16.52 10*3/uL High 3.70-11.00 [facility] Comment on above: Order Comment: Speci men Type: BLOOD SPECIMENOrdering Facility: [facility] Address: [address] [place] [address] Performed By: #### 5 8410-2 ####[facility] LABORATORYCLIA [id number] [address] CONFIRM BLOOD TYPEon 023 ABO A Normal [facility] Comment on above: Order Comment: Speci men Type: BLOOD SPECIMENOrdering Facility: [facility] Address: [address] [place] [address] Performed By: #### C ONABO ####[facility] BLOOD BANKCLIA [id number] [address] Rh Nom (Bld) Positive Normal [facility] Comment on above: Order Comment: Speci men Type: BLOOD SPECIMENOrdering Facility: [facility] Address: [address] [place] [address] Performed By: #### C ONABO ####[facility] BLOOD BANKCLIA [id number] [address] CONSULT PROGon 07-18-2022 CONSULT PROG Normal [facility] ECG COMPLETEon 07-18-2022 ECG COMPLETE Normal [facility] HIGH SENSITIVITY TROPONIN To n 07-18-2022 HIGH SENSITIVITY ARLINE 21 ng/L High <12 [facility] Comment on above: Order Comment: Speci domi Type: BLOOD SPECIMENOrdering Facility: [facility] Address: [address] [place] [address] Result Comment: When assessing risk for acute [...] day MACE. Performed By: #### H STNT ####[facility] LABORATORYCLIA [id number] [address] HIGH SENSITIVITY ARLINE 18 ng/L High <12 [facility] Comment on above: Order Comment: Michelle duron Type: BLOOD SPECIMENOrdering Facility: [facility] Address: [address] [place] [address] Result Comment: When assessing risk for acute [...] day MACE. Performed By: #### H STNT ####[facility] LABORATORYCLIA [id number] [address] [place] HIGH SENSITIVITY ARLINE 21 ng/L High <12 [facility] Comment on above: Order Comment: Michelle duron Type: BLOOD SPECIMENOrdering Facility: [facility] Address: [address] [place] [address] Result Comment: When assessing risk for acute [...] day MACE. Performed By: #### H STNT ####[facility] LABORATORYCLIA [id number] [address] Hepatic function 2000 panelo n 07-18-2022 Albumin [Mass/Vol] 3.2 g/dL Low 3.9-4.9 [facility] Comment on above: Order Comment: Michelle duron Type: BLOOD SPECIMENOrdering Facility: [facility] Address: [address] [place] [address] Performed By: #### 2 4325-3, 3040-3, 43245-0 ####[facility] LABORATORYCLIA [id number] [address] [place] ALP [Catalytic activity/Vol] 153 U/L High 34-123 [facility] Comment on above: Order Comment: Michelle duron Type: BLOOD SPECIMENOrdering Facility: [facility] Address: [address] [place] [address] Performed By: #### 2 4325-3, 3040-3, 25280-9 ####[facility] LABORATORYCLIA [id number] [address] STATES OF [facility] ALT With P-5'-P [Catalytic activity/Vol] 11 U/L Normal 7-38 [facility] Comment on above: Order Comment: Speci men Type: BLOOD SPECIMENOrdering Facility: [facility] Address: [address] [place] [address] Performed By: #### 2 4325-3, 3040-3, 88443-9 ####[facility] LABORATORYCLIA [id number] [address] OF [facility] AST With P-5'-P [Catalytic activity/Vol] Normal [facility] Comment on above: Order Comment: Speci men Type: BLOOD SPECIMENOrdering Facility: [facility] Address: [address] [place] [address] Result Comment: Unab le to assay due to interference from hemolysis. Suggest reorder as clinically indicated. Performed By: #### 2 4325-3, 3040-3, 82425-6 ####[facility] LABORATORYCLIA [id number] [address] STATES OF [facility] Bilirubin [Mass/Vol] 0.5 mg/dL Normal 0.2-1.3 [facility] Comment on above: Order Comment: Speci men Type: BLOOD SPECIMENOrdering Facility: [facility] Address: [address] [place] [address] Performed By: #### 2 4325-3, 3040-3, 15373-7 ####[facility] LABORATORYCLIA [id number] [address] STATES OF [facility] Bilirubin.conjugated [Mass/Vol] Normal [facility] Comment on above: Order Comment: Speci men Type: BLOOD SPECIMENOrdering Facility: [facility] Address: [address] [place] [address] Result Comment: Unab le to assay due to interference from hemolysis. Suggest reorder as clinically indicated. Performed By: #### 2 4325-3, 3040-3, 06992-7 ####[facility] LABORATORYCLIA [id number] [address] [place] Protein [Mass/Vol] 6.2 g/dL Low 6.3-8.0 [facility] Comment on above: Order Comment: Speci men Type: BLOOD SPECIMENOrdering Facility: [facility] Address: [address] [place] [address] Performed By: #### 2 4325-3, 3040-3, 25558-6 ####[facility] LABORATORYCLIA [id number] [address] [place] Hgb Bld-mCncon 07-18-2022 Hemoglobin (Bld) [Mass/Vol] 11.0 g/dL Low 11.5-15.5 [facility] Comment on above: Order Comment: Speci men Type: BLOOD SPECIMENOrdering Facility: [facility] Address: [address] [place] [address] Performed By: #### 7 18-7 ####[facility] LABORATORYCLIA [id number] [address] Lactate (Bld) [Moles/Vol]on 07-18-2022 Lactate [Moles/Vol] 2.1 mmol/L Normal 0.5-2.2 [facility] Comment on above: Order Comment: Speci men Type: BLOOD SPECIMENOrdering Facility: [facility] Address: [address] [place] [address] Performed By: #### 3 2693-4 ####[facility] LABORATORYCLIA [id number] [address] Lipase SerPl-cCncon 07-19-19 23 Lipase [Catalytic activity/Vol] 17 U/L Normal 16-61 [facility] Comment on above: Order Comment: Speci men Type: BLOOD SPECIMENOrdering Facility: [facility] Address: [address] [place] [address] Performed By: #### 2 4325-3, 3040-3, 51324-6 ####[facility] LABORATORYCLIA [id number] [address] [place] TYPE + SCREENon 07-18-2022 ABO A Normal [facility] Comment on above: Order Comment: Speci men Type: BLOOD SPECIMENOrdering Facility: [facility] Address: [address] [place] [address] Performed By: #### T SCR ####[facility] BLOOD BANKCLIA [id number] [address] HISTORICAL AB SCR STATUS Negative Normal [facility] Comment on above: Order Comment: Speci men Type: BLOOD SPECIMENOrdering Facility: [facility] Address: [address] [place] [address] Performed By: #### T SCR ####[facility] BLOOD BANKCLIA [id number] [address] [place] Rh Nom (Bld) Positive Normal [facility] Comment on above: Order Comment: Speci men Type: BLOOD SPECIMENOrdering Facility: [facility] Address: [address] [place] [address] Performed By: #### T SCR ####[facility] BLOOD BANKCLIA [id number] [address] OF [facility] TYPE AND SCREEN EXPIRATION 07/21/2022 23:59 Normal [facility] Comment on above: Order Comment: Speci men Type: BLOOD SPECIMENOrdering Facility: [facility] Address: [address] [place] [address] Performed By: #### T SCR ####[facility] BLOOD BANKCLIA [id number] [address] [place] XR ABDOMEN 1V SUPINEon 07-18 XR ABDOMEN 1V SUPINE Normal [facility] ALLIED HEALTHon 07-17-2022 ALLIED HEALTH Normal [facility] Basic metabolic 2000 panelon 07-17-2022 Anion gap [Moles/Vol] 11 mmol/L Normal 9-18 [facility] Comment on above: Order Comment: Speci men Type: BLOOD SPECIMENOrdering Facility: [facility] Address: [address] [place] [address] Performed By: #### 2 4321-2 ####[facility] LABORATORYCLIA [id number] [address] [place] Calcium [Mass/Vol] 9.1 mg/dL Normal 8.5-10.2 [facility] Comment on above: Order Comment: Speci men Type: BLOOD SPECIMENOrdering Facility: [facility] Address: [address] [place] [address] Performed By: #### 2 4321-2 ####[facility] LABORATORYCLIA [id number] [address] [place] Chloride [Moles/Vol] 99 mmol/L Normal 97-105 [facility] Comment on above: Order Comment: Speci men Type: BLOOD SPECIMENOrdering Facility: [facility] Address: [address] [place] [address] Performed By: #### 2 4321-2 ####[facility] LABORATORYCLIA [id number] [address] [place] CO2 [Moles/Vol] 25 mmol/L Normal 22-30 [facility] Comment on above: Order Comment: Speci men Type: BLOOD SPECIMENOrdering Facility: [facility] Address: [address] [place] [address] Performed By: #### 2 4321-2 ####[facility] LABORATORYCLIA [id number] [address] [place] Creatinine [Mass/Vol] 0.66 mg/dL Normal 0.58-0.96 [facility] Comment on above: Order Comment: Speci men Type: BLOOD SPECIMENOrdering Facility: [facility] Address: [address] [place] [address] Performed By: #### 2 4321-2 ####[facility] LABORATORYCLIA [id number] [address] ESTIMATED GLOMERULAR FILTRATION RATE 87 mL/min/1.73m??? Normal >=60 [facility] Comment on above: Order Comment: Speci men Type: BLOOD SPECIMENOrdering Facility: [facility] Address: [address] [place] [address] Result Comment: Ilda mated Glomerular Filtration Rate [...] actual GFR. Performed By: #### 2 4321-2 ####[facility] LABORATORYCLIA [id number] [place] [address] [place] Glucose [Mass/Vol] 119 mg/dL High 74-99 [facility] Comment on above: Order Comment: Michelle duron Type: BLOOD SPECIMENOrdering Facility: [facility] Address: [address] [place] [address] Result Comment: The [place] [employer] (ADA) provides guidance for cutoff [...] Standards of Medical Care in Diabetes 2016, [place] [employer]. Diabetes Care. 2016.39(Suppl 1). Performed By: #### 2 4321-2 ####[facility] LABORATORYCLIA [id number] [place] [address] [place] Potassium [Moles/Vol] 4.5 mmol/L Normal 3.7-5.1 [facility] Comment on above: Order Comment: Michelle duron Type: BLOOD SPECIMENOrdering Facility: [facility] Address: [address] [address] Performed By: #### 2 4321-2 ####[facility] LABORATORYCLIA [id number] [place] [address] [place] Sodium [Moles/Vol] 135 mmol/L Low 136-144 [facility] Comment on above: Order Comment: Speci men Type: BLOOD SPECIMENOrdering Facility: [facility] Address: [address] [place] [address] Performed By: #### 2 4321-2 ####[facility] LABORATORYCLIA [id number] [address] [place] Urea nitrogen [Mass/Vol] 23 mg/dL High 7-21 [facility] Comment on above: Order Comment: Speci men Type: BLOOD SPECIMENOrdering Facility: [facility] Address: [address] [place] [address] Performed By: #### 2 4321-2 ####[facility] LABORATORYCLIA [id number] [address] [place] C diff Tox gens Stl Ql AVRIL+p robeon 07-17-2022 C. difficile toxin genes AVRIL+probe Ql (Stl) Negative Normal Negative for C. difficile toxin by PCR [facility] Comment on above: Order Comment: Speci men Type: STOOL SPECIMENOrdering Facility: [facility] Address: [address] [place] [address] Performed By: #### 5 4067-4 ####[facility] LABORATORYCLIA [id number] [address] [place] CBC W Auto Differential pane l (Bld)on 07-17-2022 Basophils (Bld) [#/Vol] 0.03 10*3/uL Normal <0.11 [facility] Comment on above: Order Comment: Speci men Type: BLOOD SPECIMENOrdering Facility: [facility] Address: [address] [place] [address] Performed By: #### 5 7021-8 ####[facility] LABORATORYCLIA [id number] [address] Basophils/100 WBC (Bld) 0.2 % Normal [facility] Comment on above: Order Comment: Speci men Type: BLOOD SPECIMENOrdering Facility: [facility] Address: [address] [place], [place] [address] Performed By: #### 5 7021-8 ####[facility] LABORATORYCLIA [id number] [address] Differential cell count method Nom (Bld) Auto Normal [facility] Comment on above: Order Comment: Speci men Type: BLOOD SPECIMENOrdering Facility: [facility] Address: [address] [place] [address] Performed By: #### 5 7021-8 ####[facility] LABORATORYCLIA [id number] [address] OF [facility] Eosinophils (Bld) [#/Vol] 10*3/uL Normal <0.46 [facility] Comment on above: Order Comment: Speci men Type: BLOOD SPECIMENOrdering Facility: [facility] Address: [address] [place] [address] Performed By: #### 5 7021-8 ####[facility] LABORATORYCLIA [id number] [address] Eosinophils/100 WBC (Bld) 0.1 % Normal [facility] Comment on above: Order Comment: Speci men Type: BLOOD SPECIMENOrdering Facility: [facility] Address: [address] [place] [address] Performed By: #### 5 7021-8 ####[facility] LABORATORYCLIA [id number] [address] Erythrocyte distribution width (RBC) [Ratio] 14.6 % Normal 11.5-15.0 [facility] Comment on above: Order Comment: Speci men Type: BLOOD SPECIMENOrdering Facility: [facility] Address: [address] [place] [address] Performed By: #### 5 7021-8 ####[facility] LABORATORYCLIA [id number] [address] Hematocrit (Bld) [Volume fraction] 34.2 % Low 36.0-46.0 [facility] Comment on above: Order Comment: Speci men Type: BLOOD SPECIMENOrdering Facility: [facility] Address: [address] [place] [address] Performed By: #### 5 7021-8 ####[facility]ORATORYCLIA [id number] [place] [address] [place] Hemoglobin (Bld) [Mass/Vol] 10.9 g/dL Low 11.5-15.5 [facility] Comment on above: Order Comment: Speci men Type: BLOOD SPECIMENOrdering Facility: [facility] Address: [address] [place] [address] Performed By: #### 5 7021-8 ####[facility] LABORATORYCLIA [id number] [address] [place] Immature granulocytes (Bld) [#/Vol] 0.09 10*3/uL Normal <0.10 [facility] Comment on above: Order Comment: Speci men Type: BLOOD SPECIMENOrdering Facility: [facility] Address: [address] [place] [address] Performed By: #### 5 7021-8 ####[facility] LABORATORYCLIA [id number] [address] [place] Immature granulocytes/100 WBC (Bld) 0.6 % Normal [facility] Comment on above: Order Comment: Speci men Type: BLOOD SPECIMENOrdering Facility: [facility] Address: [address] [place] [address] Performed By: #### 5 7021-8 ####[facility] LABORATORYCLIA [id number] [place] [address] [place] Lymphocytes (Bld) [#/Vol] 0.62 10*3/uL Low 1.00-4.00 [facility] Comment on above: Order Comment: Speci men Type: BLOOD SPECIMENOrdering Facility: [facility] Address: [address] [place] [address] Performed By: #### 5 7021-8 ####[facility] LABORATORYCLIA [id number] [address] [place] Lymphocytes/100 WBC (Bld) 3.9 % Normal [facility] Comment on above: Order Comment: Speci men Type: BLOOD SPECIMENOrdering Facility: [facility] Address: [address] [place] [address] Performed By: #### 5 7021-8 ####[facility] LABORATORYCLIA [id number] [address] [place] MCH (RBC) [Entitic mass] 32.0 pg Normal 26.0-34.0 [facility] Comment on above: Order Comment: Speci men Type: BLOOD SPECIMENOrdering Facility: [facility] Address: [address] [place] [address] Performed By: #### 5 7021-8 ####[facility] LABORATORYCLIA [id number] [address] [place] MCHC (RBC) [Mass/Vol] 31.9 g/dL Normal 30.5-36.0 [facility] Comment on above: Order Comment: Speci men Type: BLOOD SPECIMENOrdering Facility: [facility] Address: [address] [place] [address] Performed By: #### 5 7021-8 ####[facility] LABORATORYCLIA [id number] [address] STATES [facility] MCV (RBC) [Entitic vol] 100.3 fL High 80.0-100.0 [facility] Comment on above: Order Comment: Speci men Type: BLOOD SPECIMENOrdering Facility: [facility] Address: [address] [place] [address] Performed By: #### 5 7021-8 ####[facility] LABORATORYCLIA [id number] [place] [address] [place] Monocytes (Bld) [#/Vol] 1.17 10*3/uL High <0.87 [facility] Comment on above: Order Comment: Speci men Type: BLOOD SPECIMENOrdering Facility: [facility] Address: [address] [place] [address] Performed By: #### 5 7021-8 ####[facility]ORATORYCLIA [id number] [address] [place] Monocytes/100 WBC (Bld) 7.4 % Normal [facility] Comment on above: Order Comment: Speci men Type: BLOOD SPECIMENOrdering Facility: [facility] Address: [address] [place] [address] Performed By: #### 5 7021-8 ####[facility] LABORATORYCLIA [id number] [place] [address] [place] Neutrophils (Bld) [#/Vol] 13.83 10*3/uL High 1.45-7.50 [facility] Comment on above: Order Comment: Speci men Type: BLOOD SPECIMENOrdering Facility: [facility] Address: [address] [place] [address] Performed By: #### 5 7021-8 ####[facility] LABORATORYCLIA [id number] [address] Neutrophils/100 WBC (Bld) 87.8 % Normal [facility] Comment on above: Order Comment: Speci men Type: BLOOD SPECIMENOrdering Facility: [facility] Address: [address] [place] [address] Performed By: #### 5 7021-8 ####[facility] LABORATORYCLIA [id number] [address] [place] Nucleated RBC (Bld) [#/Vol] 10*3/uL Normal <0.01 [facility] Comment on above: Order Comment: Speci men Type: BLOOD SPECIMENOrdering Facility: [facility] Address: [address] [place] [address] Performed By: #### 5 7021-8 ####[facility] LABORATORYCLIA [id number] [address] [place] Nucleated RBC/100 WBC (Bld) [Ratio] 0.0 /100 WBC Normal [facility] Comment on above: Order Comment: Speci men Type: BLOOD SPECIMENOrdering Facility: [facility] Address: [address] [place], [place] [id number] Performed By: #### 5 7021-8 ####[facility] LABORATORYCLIA [id number] [address] [place] Platelet mean volume (Bld) [Entitic vol] 8.9 fL Low 9.0-12.7 [facility] Comment on above: Order Comment: Speci men Type: BLOOD SPECIMENOrdering Facility: [facility] Address: [address] [place] [address] Performed By: #### 5 7021-8 ####[facility] LABORATORYCLIA [id number] [address] [place] Platelets (Bld) [#/Vol] 323 10*3/uL Normal 150-400 [facility] Comment on above: Order Comment: Speci men Type: BLOOD SPECIMENOrdering Facility: [facility] Address: [address] [place] [address] Performed By: #### 5 7021-8 ####[facility] LABORATORYCLIA [id number] [place] [address] [place] RBC (Bld) [#/Vol] 3.41 10*6/uL Low 3.90-5.20 [facility] Comment on above: Order Comment: Speci men Type: BLOOD SPECIMENOrdering Facility: [facility] Address: [address] [place] [address] Performed By: #### 5 7021-8 ####[facility] LABORATORYCLIA [id number] [address] [place] WBC (Bld) [#/Vol] 15.76 10*3/uL High 3.70-11.00 [facility] Comment on above: Order Comment: Speci men Type: BLOOD SPECIMENOrdering Facility: [facility] Address: [address] [place] [address] Performed By: #### 5 7021-8 ####[facility] LABORATORYCLIA [id number] [address] [place] CONSULTon 07-17-2022 CONSULT Normal [facility] CONSULT PROGon 07-17-2022 CONSULT PROG Normal [facility] DIGOXIN/LANOXINon 07-17-2022 Digoxin [Mass/Vol] 1.6 ng/mL High 0.5-1.0 [facility] Comment on above: Order Comment: Speci men Type: BLOOD SPECIMENOrdering Facility: [facility] Address: [address] [address] Result Comment: Prov ided therapeutic concentrations are based on the 2008 ESC Guidelines for the Diagnosis and Treatment of Acute and Chronic Heart Failure.Reference ranges and high/low indicator flags are provided as general guidelines only. The treating physician must determine appropriate target levels/dosing based on the specific clinical situation. Performed By: #### D IG ####[facility] LABORATORYCLIA [id number] [place] [address] [place] ECG COMPLETEon 07-17-2022 ECG COMPLETE Normal [facility] Gas and Carbon monoxide pane l (BldV)on 07-17-2022 Base excess Calc (BldV) [Moles/Vol] 1 mmol/L Normal 0-2 [facility] Comment on above: Order Comment: Speci men Type: VENOUS BLOOD SPECIMENOrdering Facility: [facility] Address: [address] [address] Performed By: #### 2 4344-4 ####[facility] LABORATORYCLIA [id number] [place] [address] [place] Body temperature 97.88 [degF] Normal [facility] Comment on above: Order Comment: Speci men Type: VENOUS BLOOD SPECIMENOrdering Facility: [facility] Address: [address] [address] Performed By: #### 2 4344-4 ####[facility] LABORATORYCLIA [id number] [address] [place] Calcium.ionized (BldV) [Mass/Vol] 1.22 mmol/L Normal 1.08-1.30 [facility] Comment on above: Order Comment: Speci men Type: VENOUS BLOOD SPECIMENOrdering Facility: [facility] Address: [address] [address] Performed By: #### 2 4344-4 ####[facility] LABORATORYCLIA [id number] [address] Calcium.ionized adjusted to pH 7.4 (BldA) [Moles/Vol] 1.19 mmol/L Normal 1.08-1.30 [facility] Comment on above: Order Comment: Speci men Type: VENOUS BLOOD SPECIMENOrdering Facility: [facility] Address: [address] [address] Performed By: #### 2 4344-4 ####[facility] LABORATORYCLIA [id number] [address] [place] Carboxyhemoglobin (BldV) [Mass fraction] 1.8 % Normal 0.0-2.0 [facility] Comment on above: Order Comment: Speci men Type: VENOUS BLOOD SPECIMENOrdering Facility: [facility] Address: [address] [address] Result Comment: Carb oxyhemoglobin Reference Range for Smokers: 2.0-8.0% Performed By: #### 2 4344-4 ####[facility] LABORATORYCLIA [id number] [place] [address] [place] Chloride [Moles/Vol] 101 mmol/L Low 102-109 [facility] Comment on above: Order Comment: Speci men Type: VENOUS BLOOD SPECIMENOrdering Facility: [facility] Address: [address] [address] Performed By: #### 2 4344-4 ####[facility] LABORATORYCLIA [id number] [address] [place] CO2 (BldV) [Partial pressure] 47 mm[Hg] Normal 42-55 [facility] Comment on above: Order Comment: Speci men Type: VENOUS BLOOD SPECIMENOrdering Facility: [facility] Address: [address] [address] Performed By: #### 2 4344-4 ####[facility] LABORATORYCLIA [id number] [address] [place] CO2 [Moles/Vol] 24 mmol/L Low 25-29 [facility] Comment on above: Order Comment: Speci men Type: VENOUS BLOOD SPECIMENOrdering Facility: [facility] Address: [address] [place] [address] Performed By: #### 2 4344-4 ####[facility] LABORATORYCLIA [id number] [address] [place] CO2 adjusted to patient's actual temperature (BldV) [Partial pressure] 46 mmHg Normal 42-55 [facility] Comment on above: Order Comment: Speci men Type: VENOUS BLOOD SPECIMENOrdering Facility: [facility] Address: [address] [place] [address] Performed By: #### 2 4344-4 ####[facility] LABORATORYCLIA [id number] [address] [place] Glucose [Mass/Vol] 126 mg/dL High 60-105 [facility] Comment on above: Order Comment: Speci men Type: VENOUS BLOOD SPECIMENOrdering Facility: [facility] Address: [address] [place] [address] Performed By: #### 2 4344-4 ####[facility] LABORATORYCLIA [id number] [address] [place] HCO3 (Bld) [Moles/Vol] 26 mmol/L Normal 24-28 [facility] Comment on above: Order Comment: Speci men Type: VENOUS BLOOD SPECIMENOrdering Facility: [facility] Address: [address] [address] Performed By: #### 2 4344-4 ####[facility] LABORATORYCLIA [id number] [address] [place] Hematocrit (Bld) [Volume fraction] 35.5 % Low 36.0-46.0 [facility] Comment on above: Order Comment: Speci men Type: VENOUS BLOOD SPECIMENOrdering Facility: [facility] Address: [address] [place] [address] Performed By: #### 2 4344-4 ####[facility] LABORATORYCLIA [id number] [address] [place] Hemoglobin (Bld) [Mass/Vol] 11.5 g/dL Normal 11.5-15.5 [facility] Comment on above: Order Comment: Speci men Type: VENOUS BLOOD SPECIMENOrdering Facility: [facility] Address: [address] [place] [address] Performed By: #### 2 4344-4 ####[facility] LABORATORYCLIA [id number] [address] [place] Lactate [Moles/Vol] 1.2 mmol/L Normal 0.5-2.2 [facility] Comment on above: Order Comment: Speci men Type: VENOUS BLOOD SPECIMENOrdering Facility: [facility] Address: [address] [place] [address] Performed By: #### 2 4344-4 ####[facility] LABORATORYCLIA [id number] [address] [place] Methemoglobin (Bld) [Mass fraction] % Normal 0.0-1.5 [facility] Comment on above: Order Comment: Speci men Type: VENOUS BLOOD SPECIMENOrdering Facility: [facility] Address: [address] [place] [address] Performed By: #### 2 4344-4 ####[facility] LABORATORYCLIA [id number] [address] [place] O2 THERAPY NC = Nasal Cannula Normal [facility] Comment on above: Order Comment: Speci men Type: VENOUS BLOOD SPECIMENOrdering Facility: [facility] Address: [address] [place] [address] Performed By: #### 2 4344-4 ####[facility] LABORATORYCLIA [id number] [address] [place] Oxygen (BldV) [Partial pressure] 72 mm[Hg] High 35-45 [facility] Comment on above: Order Comment: Speci men Type: VENOUS BLOOD SPECIMENOrdering Facility: [facility] Address: [facility] [place] [address] Performed By: #### 2 4344-4 ####[facility]ORATORYCLIA [id number] [address] Oxygen adjusted to patient's actual temperature (BldV) [Partial pressure] 70 mmHg High 35-45 [facility] Comment on above: Order Comment: Speci men Type: VENOUS BLOOD SPECIMENOrdering Facility: [facility] Address: [address] [place] [address] Performed By: #### 2 4344-4 ####[facility] LABORATORYCLIA [id number] [address] Oxygen saturation in Venous blood 93 % High 60-85 [facility] Comment on above: Order Comment: Speci men Type: VENOUS BLOOD SPECIMENOrdering Facility: [facility] Address: [address] [place] [address] Performed By: #### 2 4344-4 ####[facility]ORATORYCLIA [id number] [address] Oxyhemoglobin (BldV) [Mass fraction] 91 % High 60-85 [facility] Comment on above: Order Comment: Speci men Type: VENOUS BLOOD SPECIMENOrdering Facility: [facility] Address: [address] [place] [address] Performed By: #### 2 4344-4 ####[facility]ORATORYCLIA [id number] [address] [place] pH (BldV) 7.36 [pH] Normal 7.32-7.42 [facility] Comment on above: Order Comment: Speci men Type: VENOUS BLOOD SPECIMENOrdering Facility: [facility] Address: [address] [place] [address] Performed By: #### 2 4344-4 ####[facility]ATORYCLIA [id number] [address] [place] pH adjusted to patient's actual temperature (BldV) 7.37 Normal 7.32-7.42 [facility] Comment on above: Order Comment: Speci men Type: VENOUS BLOOD SPECIMENOrdering Facility: [facility] Address: [address] [place] [address] Performed By: #### 2 4344-4 ####[facility] LABORATORYCLIA [id number] [address] OF [facility] Potassium [Moles/Vol] 4.3 mmol/L Normal 3.5-5.0 [facility] Comment on above: Order Comment: Speci men Type: VENOUS BLOOD SPECIMENOrdering Facility: [facility] Address: [address] [place] [address] Performed By: #### 2 4344-4 ####[facility] LABORATORYCLIA [id number] [address] Sodium [Moles/Vol] 134 mmol/L Low 136-144 [facility] Comment on above: Order Comment: Speci men Type: VENOUS BLOOD SPECIMENOrdering Facility: [facility] Address: [address] [place] [address] Performed By: #### 2 4344-4 ####[facility] LABORATORYCLIA [id number] [address] HIGH SENSITIVITY TROPONIN To n 07-17-2022 HIGH SENSITIVITY ARLINE 19 ng/L High <12 [facility] Comment on above: Order Comment: Speci men Type: BLOOD SPECIMENOrdering Facility: [facility] Address: [address] [place] [address] Result Comment: When assessing risk for acute [...] day MACE. Performed By: #### H STNT ####[facility] LABORATORYCLIA [id number] [address] [place] XR CHEST 1V FRONTALon 2022 XR CHEST 1V FRONTAL Normal [facility] ALLIED HEALTHon 07-16-2022 ALLIED HEALTH Normal [facility] Basic metabolic 2000 panelon 07-16-2022 Anion gap [Moles/Vol] 10 mmol/L Normal 9-18 [facility] Comment on above: Order Comment: Speci men Type: BLOOD SPECIMENOrdering Facility: [facility] Address: [address] [place] [address] Performed By: #### 2 4321-2, 61056-7 ####[facility] LABORATORYCLIA [id number] [place] [address] [place] Calcium [Mass/Vol] 8.8 mg/dL Normal 8.5-10.2 [facility] Comment on above: Order Comment: Speci men Type: BLOOD SPECIMENOrdering Facility: [facility] Address: [address] [place] [address] Performed By: #### 2 4321-2, 23521-6 ####[facility] LABORATORYCLIA [id number] [place] [address] [place] Chloride [Moles/Vol] 98 mmol/L Normal 97-105 [facility] Comment on above: Order Comment: Speci men Type: BLOOD SPECIMENOrdering Facility: [facility] Address: [address] [place] [address] Performed By: #### 2 4321-2, 06301-8 ####[facility] LABORATORYCLIA [id number] [place] [address] [place] CO2 [Moles/Vol] 26 mmol/L Normal 22-30 [facility] Comment on above: Order Comment: Speci men Type: BLOOD SPECIMENOrdering Facility: [facility] Address: [address] [place] [address] Performed By: #### 2 4321-2, 23423-3 ####[facility]ORATORYCLIA [id number] [place] [address] [place] Creatinine [Mass/Vol] 0.66 mg/dL Normal 0.58-0.96 [facility] Comment on above: Order Comment: Speci men Type: BLOOD SPECIMENOrdering Facility: [facility] Address: [address] [place] [address] Performed By: #### 2 4321-2, 01005-2 ####[facility]ITALIA [id number] [address] [place] ESTIMATED GLOMERULAR FILTRATION RATE 87 mL/min/1.73m??? Normal >=60 [facility] Comment on above: Order Comment: Michelle domi Type: BLOOD SPECIMENOrdering Facility: [facility] Address: [address] [place] [address] Result Comment: Ilda mated Glomerular Filtration Rate [...] actual GFR. Performed By: #### 2 4321-2, 72232-7 ####[facility]PITALIA [id number] [place] [address] [place] Glucose [Mass/Vol] 136 mg/dL High 74-99 [facility] Comment on above: Order Comment: Michelle duron Type: BLOOD SPECIMENOrdering Facility: [facility] Address: [address] [place] [address] Result Comment: The [place] Diabetes Association (ADA) provides guidance for cutoff [...] Standards of Medical Care in Diabetes 2016, [place] [employer]. Diabetes Care. 2016.39(Suppl 1). Performed By: #### 2 4321-2, 55935-0 ####[facility] LABORATORYCLIA [id number] [address] [place] Potassium [Moles/Vol] 4.2 mmol/L Normal 3.7-5.1 [facility] Comment on above: Order Comment: Speci men Type: BLOOD SPECIMENOrdering Facility: [facility] Address: [address] [place] [address] Performed By: #### 2 4321-2, 14387-0 ####[facility]ORATORYCLIA [id number] [address] [place] Sodium [Moles/Vol] 134 mmol/L Low 136-144 [facility] Comment on above: Order Comment: Speci men Type: BLOOD SPECIMENOrdering Facility: [facility] Address: [address] [place] [address] Performed By: #### 2 4321-2, 78007-6 ####[facility]ORATORYCLIA [id number] [address] STATES [facility] Urea nitrogen [Mass/Vol] 19 mg/dL Normal 7-21 [facility] Comment on above: Order Comment: Speci men Type: BLOOD SPECIMENOrdering Facility: [facility] Address: [address] [place] [address] Performed By: #### 2 4321-2, 95240-4 ####[facility] LABORATORYCLIA [id number] [address] STATES OF [facility] CBC panel Auto (Bld)on 07-16 Erythrocyte distribution width (RBC) [Ratio] 14.7 % Normal 11.5-15.0 [facility] Comment on above: Order Comment: Speci men Type: BLOOD SPECIMENOrdering Facility: [facility] Address: [address] [place] [address] Performed By: #### 5 5454-3, 39708-4 ####[facility] LABORATORYCLIA [id number] [address] [place] Hematocrit (Bld) [Volume fraction] 32.7 % Low 36.0-46.0 [facility] Comment on above: Order Comment: Speci men Type: BLOOD SPECIMENOrdering Facility: [facility] Address: [address] [place] [address] Performed By: #### 5 5454-3, 79689-3 ####[facility] LABORATORYCLIA [id number] [address] STATES OF [facility] Hemoglobin (Bld) [Mass/Vol] 10.2 g/dL Low 11.5-15.5 [facility] Comment on above: Order Comment: Speci men Type: BLOOD SPECIMENOrdering Facility: [facility] Address: [address] [place] [address] Performed By: #### 5 5454-3, 47311-0 ####[facility]ORATORYCLIA [id number] [address] STATES OF [facility] MCH (RBC) [Entitic mass] 31.2 pg Normal 26.0-34.0 [facility] Comment on above: Order Comment: Speci men Type: BLOOD SPECIMENOrdering Facility: [facility] Address: [address] [place] [address] Performed By: #### 5 5454-3, 93589-4 ####[facility] LABORATORYCLIA [id number] [address] STATES OF [facility] MCHC (RBC) [Mass/Vol] 31.2 g/dL Normal 30.5-36.0 [facility] Comment on above: Order Comment: Speci men Type: BLOOD SPECIMENOrdering Facility: [facility] Address: [address] [place] [address] Performed By: #### 5 5454-3, 05753-9 ####[facility]ORATORYCLIA [id number] [address] MCV (RBC) [Entitic vol] 100.0 fL Normal 80.0-100.0 [facility] Comment on above: Order Comment: Speci men Type: BLOOD SPECIMENOrdering Facility: [facility] Address: [address] [place] [address] Performed By: #### 5 5454-3, 83328-4 ####[facility]ORATORYCLIA [id number] [address] [place] Nucleated RBC (Bld) [#/Vol] 10*3/uL Normal <0.01 [facility] Comment on above: Order Comment: Speci men Type: BLOOD SPECIMENOrdering Facility: [facility] Address: [address] [place] [address] Performed By: #### 5 5454-3, 53958-5 ####[facility] LABORATORYCLIA [id number] [place] [address] [place] Platelet mean volume (Bld) [Entitic vol] 8.8 fL Low 9.0-12.7 [facility] Comment on above: Order Comment: Speci men Type: BLOOD SPECIMENOrdering Facility: [facility] Address: [address] [place] [address] Performed By: #### 5 5454-3, 30683-7 ####[facility]ORATORYCLIA [id number] [address] [place] Platelets (Bld) [#/Vol] 296 10*3/uL Normal 150-400 [facility] Comment on above: Order Comment: Speci men Type: BLOOD SPECIMENOrdering Facility: [facility] Address: [address] Performed By: #### 5 5454-3, 08934-6 ####[facility] LABORATORYCLIA [id number] [place] [address] [place] RBC (Bld) [#/Vol] 3.27 10*6/uL Low 3.90-5.20 [facility] Comment on above: Order Comment: Speci men Type: BLOOD SPECIMENOrdering Facility: [facility] Address: [address] [place] [address] Performed By: #### 5 5454-3, 48235-2 ####[facility]ORATORYCLIA [id number] [address] OF [facility] WBC (Bld) [#/Vol] 13.65 10*3/uL High 3.70-11.00 [facility] Comment on above: Order Comment: Speci men Type: BLOOD SPECIMENOrdering Facility: [facility] Address: [address] [place] [address] Performed By: #### 5 5454-3, 44049-8 ####[facility]ORATORYCLIA [id number] [address] [place] CONSULTon 07-16-2022 CONSULT Normal [facility] CRP SerPl-mCncon 07-16-2022 CRP [Mass/Vol] 16.2 mg/dL High <0.9 [facility] Comment on above: Order Comment: Speci men Type: BLOOD SPECIMENOrdering Facility: [facility] Address: [address] [place] [address] Performed By: #### 1 988-5, 3016-3 ####[facility]ORATORYCLIA [id number] [address] OF [facility] ECHO LIMITEDon 07-16-2022 ECHO LIMITED Normal [facility] ED NOTEon 07-16-2022 ED NOTE HNO ID: [id number] Author: Nahomy Snyder, SHANTE Service: Emergency Medicine Author Type: Registered Nurse Type: ED Notes Filed: 07/16/2022 12:25 PM Note Text: Hold compazine PO dose per physician Dr. Kowalski at bedside. Normal [facility] ED NOTE HNO ID: [id number] Author: Tracy Cardenas, SHANTE Service: Nursing Author Type: Registered Nurse Type: ED Notes Filed: 07/16/2022 11:21 AM Note Text: D/Ulises duplicate covid order Normal [facility] ED NOTE HNO ID: [id number] Author: Tracy Cardenas, SHANTE Service: Nursing Author Type: Registered Nurse Type: ED Notes Filed: 07/16/2022 10:25 AM Note Text: CT notified pt ready, GFR 07/16/22 0000 at jarod was 77 Normal [facility] ED NOTE Normal [facility] ED PROV NOTEon 07-16-2022 ED PROV NOTE Normal [facility] ED PROV NOTE Normal [facility] ESR Westergren method (Bld) [Velocity]on 07-16-2022 ESR (Bld) [Velocity] 34 mm/h High 0-20 [facility] Comment on above: Order Comment: Michelle duron Type: BLOOD SPECIMENOrdering Facility: [facility] Address: [address] [place] [address] Performed By: #### 4 537-7 ####[facility] LABCLIA [id number] [facility] [place] [address] [place] HIGH SENSITIVITY TROPONIN T (INITIAL)on 07-16-2022 HIGH SENSITIVITY ARLINE 13 ng/L High <12 [facility] Comment on above: Order Comment: Michelle duron Type: BLOOD SPECIMENOrdering Facility: [facility] Address: [address] [place] [address] Result Comment: When assessing risk for acute [...] 30 day MACE. Performed By: #### L [id number] ####[facility] LABORATORYCLIA [id number] [place] [address] [place] HIGH SENSITIVITY TROPONIN T (SECOND)on 07-16-2022 HIGH SENSITIVITY ARLINE 14 ng/L High <12 [facility] Comment on above: Order Comment: Michelle duron Type: BLOOD SPECIMENOrdering Facility: [facility] Address: [address] [place] [address] Result Comment: When assessing risk for acute [...] 30 day MACE. Performed By: #### L [id number] ####[facility]ORATORYCLIA [id number] [address] HIGH SENSITIVITY TROPONIN T (THIRD) 3 HRS AFTER INITIALon 07-16-2022 HIGH SENSITIVITY ARLINE 14 ng/L High <12 [facility] Comment on above: Order Comment: Michelle [facility] Type: BLOOD SPECIMENOrdering Facility: [facility] Address: [address] [place] [address] Result Comment: When assessing risk for acute [...] 30 day MACE. Performed By: #### L [id number] ####[facility]ORATORYCLIA [id number] [address] HISTORY PHYSICALon HISTORY PHYSICAL Normal [facility] HbA1c (Bld)on 07-16-2022 Average glucose Estimated from glycated hemoglobin (Bld) [Mass/Vol] 131 mg/dL Normal [facility] Comment on above: Order Comment: Michelle duron Type: BLOOD SPECIMENOrdering Facility: [facility] Address: [address] [place] [address] Result Comment: eAG: (Estimated average glucose) is a calculated value from HgbA1c and is loan representative of the average blood glucose level in the last 2-3 month period. Performed By: #### 5 5454-3, 38668-9 ####[facility]ORATORYCLIA [id number] [address] HbA1c (Bld) [Mass fraction] 6.2 % High 4.3-5.6 [facility] Comment on above: Order Comment: Michelle duron Type: BLOOD SPECIMENOrdering Facility: [facility] Address: [address] [place] [address] Result Comment: [place] Diabetes Association guidelines indicate that patients with HgbA1c in the range 5.7-6.4% are at increased risk for development of diabetes, and intervention by lifestyle modification may be beneficial. HgbA1c greater or equal to 6.5% is considered diagnostic of diabetes. Performed By: #### 5 5454-3, 26525-8 ####[facility]ORATORYCLIA [id number] [address] STATES OF [facility] PT panel Coag (PPP)on 2022 INR Coag (PPP) [Relative time] 1.1 {INR} Normal 0.9-1.3 [facility] Comment on above: Order Comment: Specximena duron Type: BLOOD SPECIMENOrdering Facility: [facility] Address: [address] [place] [id number] Result Comment: Judy min K Antagonist (VKA) Therapeutic Range: INR 2 to 3 (Target INR of 2.5)Note: For patients treated with VKA drugs, such as warfarin, the [place] [employer] 2012 Guideline recommends [...] al. Chest 2012, 141:7S-47SNishimura RA, et al. [facility] 2017, 70: 252-289 Performed By: #### 1 4979-9, 02903-4 ####[facility]ORATORYCLIA [id number] [address] [place] PT Coag (PPP) [Time] 11.5 s Normal 9.7-13.0 [facility] Comment on above: Order Comment: Michelle duron Type: BLOOD SPECIMENOrdering Facility: [facility] Address: [address] [place] [id number] Performed By: #### 1 4979-9, 40229-7 ####[facility] LABORATORYCLIA [id number] [address] Procalcitonin SerPl-mCncon 0 07-16-2022 Procalcitonin [Mass/Vol] ng/mL Normal <0.09 [facility] Comment on above: Order Comment: Speci men Type: BLOOD SPECIMENOrdering Facility: [facility] Address: [address] [place] [address] Result Comment: For a guided interpretation of test results, please visit the Change in Procalcitonin Calculator, [email or web address]. Performed By: #### 2 4321-2, 96497-5 ####[facility] LABORATORYCLIA [id number] [address] [place] SARS-CoV-2 RNA Resp Ql AVRIL+p robeon 07-16-2022 SARS-CoV-2 (COVID-19) RNA AVRIL+probe Ql (Resp) COVID 19 RESULT: Not detected The method used is RT-PCR or an equivalent NAAT method. Reference Range(the expected result in uninfected individuals): Not detected Normal [facility] Comment on above: Performed By: #### 9 4500-6 ####[facility] LABORATORYCLIA [id number] [address] [place] STAPH AUREUS PCRon S. aureus and MRSA panel AVRIL+probe (Nose) Normal Negative [facility] Comment on above: Order Comment: Speci men Type: SWAB OF INTERNAL NOSEOrdering Facility: [facility] Address: [address] [place] [address] Result Comment: Nega tive for Staphylococcus aureus by PCR.Negative for MRSA by PCR Performed By: #### S APCR ####[facility] LABORATORYCLIA [id number] [place] [address] [place] TSH SerPl-aCncon 07-16-2022 TSH Qn 1.570 m[IU]/L Normal 0.270-4.200 [facility] Comment on above: Order Comment: Speci men Type: BLOOD SPECIMENOrdering Facility: [facility] Address: [address] [place] [id number] Performed By: #### 1 988-5, 3016-3 ####[facility] LABORATORYCLIA [id number] [address] OF [facility] XR CHEST 1V FRONTALon 2022 XR CHEST 1V FRONTAL Normal [facility] aPTT PPPon 07-16-2022 aPTT Coag (PPP) [Time] 32.3 s Normal 23.0-32.4 [facility] Comment on above: Order Comment: Specximena duron Type: BLOOD SPECIMENOrdering Facility: [facility] Address: [address] [place] [address] Performed By: #### 1 4979-9, 30984-9 ####[facility] LABORATORYCLIA [id number] [address] CNPAbigail 06-09-2022 CNPN Telephone (NE50MN) -------- ISABELLE MEDRANO ([id number]) 1940 F Date Time Provider Department 06/09/22 ALDEN HUGHES NE50MN During your visit today, we recorded the following information about you: Lorena Trevor 06/09/2022 4:36 PM Signed Records received; ED summary; Uploaded to [facility] Alden Hughes MD 06/10/2022 7:46 AM Signed Allergies As of Date: 06/09/2022 Noted Allergy Reaction KEPPRA (LEVETIRACETAM) 07/24/2019 8 - GI Upset [id number]-GGA YMYXNB 07/25/2014 2 - Rash CODEINE 07/29/2015 14 - Other: See Comments Comments: makes me ill NICKEL 06/25/2019 16 - Unknown Date Reviewed: 05/05/2022 Reviewed by: Kim Ham RN - Fully Assessed Reason for Visit: Received Outside Medical Records [3574] Cmt: [facility] Prescriptions as of 06/10/2022 - linaclotide (LINZESS [...] Encounter Status:Closed by LORENA MURRAY on 06/09/22 [facility] Telephone (NE50MN) -------- ZACISABELLE Romero ([id number]) 1940 F Date Time Provider Department 06/09/22 ALDEN HUGHES NE50MN During your visit today, we recorded the following information about you: Lorena Murray 06/09/2022 11:21 AM Signed Allergies As of Date: 06/09/2022 Noted Allergy Reaction KEPPRA (LEVETIRACETAM) 07/24/2019 8 - GI Upset [id number]-[id number]-AWD YMYXNB 07/25/2014 2 - Rash CODEINE 07/29/2015 14 - Other: See Comments Comments: makes me ill NICKEL 06/25/2019 16 - Unknown Date Reviewed: 05/05/2022 Reviewed by: Kim Ham RN - Fully Assessed Reason for Visit: Request Outside Medical Records [0616] Cmt: [facility] Prescriptions as of 06/09/2022 - linaclotide (LINZESS [...] Encounter Status:Closed by LORENA MURRAY on 06/09/22 [facility] Telephone (NEEPHU) -------- ISABELLE MEDRANO ([id number]) 1940 F Date Time Provider Department 06/09/22 ALDEN HUGHES During your visit today, we recorded the following information about you: Alden Hughes MD 06/09/2022 10:23 AM Signed I was able to reach Dr. Payan, the patient's fundraising coordinator, today. He gave me a summary of [...] me on 06/16. - I provided the fundraising coordinator with my mobile phone for any further concerns. - He reported that there is no immediate harm (3% risk of thromboembolic events) in waiting to get the evaluation of seizures and falls before anticoagulation to ensure safety. - I will obtain records from [facility] of ED visits. Allergies As of Date: 06/09/2022 Noted Allergy Reaction KEPPRA (LEVETIRACETAM) 07/24/2019 8 - GI Upset [id number]-GBO YMYXNB 07/25/2014 2 - Rash CODEINE 07/29/2015 14 - Other: See Comments Comments: makes me ill NICKEL 06/25/2019 16 - Unknown Date Reviewed: 05/05/2022 Reviewed by: Kim Ham RN - Fully Assessed Reason for Visit: Patient Update [1234] Cmt: Returning fundraising coordinator call Prescriptions as of 06/09/2022 - linaclotide [...] Encounter Status:Closed by ALDEN HUGHES on 06/09/22 [facility] MITCHELLISABELLE Shelton ([id number]) 1940 F Date Time Provider Department 06/08/22 ALDEN HUGHES During your visit today, we recorded the following information about you: Alden Hughes MD 06/08/2022 11:15 AM Signed I was notified that the patient's fundraising coordinator, Dr. Beka Payan, was trying to reach me. I called his office ([phone]) and mobile phone ([phone]) and left him a message to call me back. In the meantime I called the patient and spoke to her and her . I also obtained permission to speak to her [id number], Anca, but I could not reach her on her phone due to going to [employer]. The patient reported the following history: - [...] KEPPRA (LEVETIRACETAM) 07/24/2019 8 - GI Upset [id number] 07/25/2014 2 - Rash CODEINE 07/29/2015 [...] Encounter Status:Closed by ALDEN HUGHES on 06/08/22 [facility] Telephone (NE50MN) -------- ISABELLE MEDRANO ([id number]) 1940 F Date Time Provider Department 05/31/22 ALDEN HUGHES NE50MN During your visit today, we recorded the following information about you: Lorena Murray 05/31/2022 11:45 AM Signed Seizure activity: Name of Caller : Lia Patel for pt Relationship to patient: [id number] Contact phone number: [phone] pt contact Date of seizure: 05/28/22 Duration: 5 min Back to Baseline (Yes/No): no; having tremors, shaking Emergency treatment needed (Yes/No): no Patient of Dr. Saul Murray 06/01/2022 12:02 PM Signed Pt spouse, Kit calling; would like call back; [phone]. Hardy Oneal RN 06/01/2022 12:55 PM Signed Spoke with patients spouse. He reports violent seizure 05/28/22, when asked what he meant by that, he reports full body shaking no tongue bite, no loss of urine. He described patient having tremors even after seizure. Yesterday, she did this again and he called 911. She was taken to [facility]. She was in Afib with high heart rate. She is scheduled for Cardiac cath 06/02. They did not address seizure. Current meds LTG 25mg, starting tomorrow 50/75 That will be start of week 5. 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 Brittanie Lugo APRN.ENGAGEMENT LIAISON Allergies As of Date: 05/31/2022 Noted Allergy Reaction KEPPRA (LEVETIRACETAM) 07/24/2019 8 - GI Upset [id number] 07/25/2014 2 - Rash CODEINE 07/29/2015 [...] Encounter Status:Closed by HARDY ONEAL on 06/02/22 [facility] (NE50MN[facility] -------- ISABELLE MEDRANO ([id number]) 1940 F Date Time Provider Department 05/11/22 [...] KEPPRA (LEVETIRACETAM) 07/24/2019 8 - GI Upset [id number] 07/25/2014 2 - Rash CODEINE 07/29/2015 [...] Status:Closed by HARDY ONEAL on 05/11/22 Normal [facility] CASE MANAGEMon 05-06-2022 CASE MANAGEM Normal [facility] CASE MANAGEM Normal [facility] CASE MGT INIT ASSESon 2021 CASE MGT INIT ASSES Normal [facility] CNDSon 05-06-2022 CNDS Normal [facility] HIGH SENSITIVITY TROPONIN T (THIRD) 3 HRS AFTER INITIALon 05-06-2022 HIGH SENSITIVITY ARLINE 16 ng/L High <12 [facility] Comment on above: Order Comment: Speci men Type: BLOOD SPECIMENOrdering Facility: [facility] Address: [address] [place] [address] [place] [address] Result Comment: When assessing risk for acute [...] 30 day MACE. Performed By: #### L [id number] ####[facility] LABORATORYCLIA [id number] [place] [address] [facility] NURSING PROGon 05-06-2022 NURSING PROG Normal [facility] TOX SCREEN ROUT URon 022 Amphetamines Confirm (U) [Mass/Vol] Negative Normal Negative [facility] Comment on above: Order Comment: Speci men Type: URINE SPECIMENOrdering Facility: [facility] Address: [address] [place] [address] Result Comment: Cuto ff threshold at 1000 ng/mL. Performed By: #### U TOX2 ####[facility] LABORATORYCLIA [id number] [address] BARBITURATES, URINE Negative Normal Negative [facility] Comment on above: Order Comment: Speci men Type: URINE SPECIMENOrdering Facility: [facility] Address: [address] [place] [address] Result Comment: Cuto ff threshold at 200 ng/mL. Performed By: #### U TOX2 ####[facility] LABORATORYCLIA [id number] [place] [address] [place] BENZODIAZEPINES, UR Negative Normal Negative [facility] Comment on above: Order Comment: Speci men Type: URINE SPECIMENOrdering Facility: [facility] Address: [address] [place] [address] Result Comment: Cuto ff threshold at 200 ng/mL. Performed By: #### U TOX2 ####[facility] LABORATORYCLIA [id number] [address] [place] CANNABINOIDS,URINE Negative Normal Negative [facility] Comment on above: Order Comment: Speci men Type: URINE SPECIMENOrdering Facility: [facility] Address: [address] [address] Result Comment: Cuto ff threshold at 50 ng/mL. Performed By: #### U TOX2 ####[facility] LABORATORYCLIA [id number] [address] [place] Cocaine Ql (U) Negative Normal Negative [facility] Comment on above: Order Comment: Speci men Type: URINE SPECIMENOrdering Facility: [facility] Address: [address] [address] Result Comment: Cuto ff threshold at 300 ng/mL. Performed By: #### U TOX2 ####[facility] LABORATORYCLIA [id number] [address] STATES OF [facility] Ethanol (U) [Mass/Vol] <11 Normal <11 [facility] Comment on above: Order Comment: Speci men Type: URINE SPECIMENOrdering Facility: [facility] Address: [address] [place] [address] Performed By: #### U TOX2 ####[facility] LABORATORYCLIA [id number] [address] Opiates Screen Ql (U) Negative Normal Negative [facility] Comment on above: Order Comment: Speci men Type: URINE SPECIMENOrdering Facility: [facility] Address: [address] [place] [address] Result Comment: Cuto ff threshold at 300 ng/mL. Performed By: #### U TOX2 ####[facility] LABORATORYCLIA [id number] [address] oxyCODONE cutoff Screen (U) [Mass/Vol] Negative Normal Negative [facility] Comment on above: Order Comment: Speci men Type: URINE SPECIMENOrdering Facility: [facility] Address: [address] [place] [address] Result Comment: Cuto ff threshold at 100 ng/mL. Performed By: #### U TOX2 ####[facility] LABORATORYCLIA [id number] [address] Phencyclidine Ql (U) Negative Normal Negative [facility] Comment on above: Order Comment: Speci men Type: URINE SPECIMENOrdering Facility: [facility] Address: [address] [place] [address] Result Comment: Cuto ff threshold at 25 ng/mL. Performed By: #### U TOX2 ####[facility] LABORATORYCLIA [id number] [place] [address] [place] ALLIED HEALTHon 05-05-2022 ALLIED HEALTH Normal [facility] Basic metabolic 2000 panelon 05-05-2022 Anion gap [Moles/Vol] 11 mmol/L Normal 9-18 [facility] Comment on above: Order Comment: Speci men Type: BLOOD SPECIMENOrdering Facility: [facility] Address: [address] [place] [address] Performed By: #### 2 4321-2 ####[facility] LABORATORYCLIA [id number] [place] [address] [place] Calcium [Mass/Vol] 9.7 mg/dL Normal 8.5-10.2 [facility] Comment on above: Order Comment: Speci men Type: BLOOD SPECIMENOrdering Facility: [facility] Address: [address] [place] [address] Performed By: #### 2 4321-2 ####[facility] LABORATORYCLIA [id number] [place] [address] [place] Chloride [Moles/Vol] 104 mmol/L Normal 97-105 [facility] Comment on above: Order Comment: Speci men Type: BLOOD SPECIMENOrdering Facility: [facility] Address: [address] [place] [address] Performed By: #### 2 4321-2 ####[facility] LABORATORYCLIA [id number] [place] [address] [place] CO2 [Moles/Vol] 25 mmol/L Normal 22-30 [facility] Comment on above: Order Comment: Speci men Type: BLOOD SPECIMENOrdering Facility: [facility] Address: [address] [place] [address] Performed By: #### 2 4321-2 ####[facility] LABORATORYCLIA [id number] [place] [address] [place] Creatinine [Mass/Vol] 0.58 mg/dL Normal 0.58-0.96 [facility] Comment on above: Order Comment: Speci men Type: BLOOD SPECIMENOrdering Facility: [facility] Address: [address] [place] [address] Performed By: #### 2 4321-2 ####[facility] LABORATORYCLIA [id number] [place] [address] [place] ESTIMATED GLOMERULAR FILTRATION RATE 90 mL/min/1.73m??? Normal >=60 [facility] Comment on above: Order Comment: Michelle duron Type: BLOOD SPECIMENOrdering Facility: [facility] Address: [address] [place] [address] Result Comment: Ilda mated Glomerular Filtration Rate [...] actual GFR. Performed By: #### 2 4321-2 ####[facility] LABORATORYCLIA [id number] [place] [address] [place] Glucose [Mass/Vol] 101 mg/dL High 74-99 [facility] Comment on above: Order Comment: Michelle duron Type: BLOOD SPECIMENOrdering Facility: [facility] Address: [address] [place] [address] Result Comment: The [place] Diabetes Association (ADA) provides guidance for cutoff [...] Standards of Medical Care in Diabetes 2016, [place] [employer]. Diabetes Care. 2016.39(Suppl 1). Performed By: #### 2 4321-2 ####[facility] LABORATORYCLIA [id number] [place] [id number] [place] Potassium [Moles/Vol] 4.2 mmol/L Normal 3.7-5.1 [facility] Comment on above: Order Comment: Speci men Type: BLOOD SPECIMENOrdering Facility: [facility] Address: [address] [place] [address] Performed By: #### 2 4321-2 ####[facility] LABORATORYCLIA [id number] [address] STATES [facility] Sodium [Moles/Vol] 140 mmol/L Normal 136-144 [facility] Comment on above: Order Comment: Speci men Type: BLOOD SPECIMENOrdering Facility: [facility] Address: [address] [place] [address] Performed By: #### 2 4321-2 ####[facility] LABORATORYCLIA [id number] [address] Urea nitrogen [Mass/Vol] 11 mg/dL Normal - [facility] Comment on above: Order Comment: Speci men Type: BLOOD SPECIMENOrdering Facility: [facility] Address: [address] [place] [address] Performed By: #### 2 4321-2 ####[facility] LABORATORYCLIA [id number] [address] CBC W Auto Differential pane l (Bld)on 05-05-2022 Basophils (Bld) [#/Vol] 0.08 10*3/uL Normal <0.11 [facility] Comment on above: Order Comment: Speci men Type: BLOOD SPECIMENOrdering Facility: [facility] Address: [address] [place] [address] Performed By: #### 5 7021-8 ####[facility] LABORATORYCLIA [id number] [address] Basophils/100 WBC (Bld) 0.9 % Normal [facility] Comment on above: Order Comment: Speci men Type: BLOOD SPECIMENOrdering Facility: [facility] Address: [address] [place] [address] Performed By: #### 5 7021-8 ####[facility] LABORATORYCLIA [id number] [place] [address] [place] Differential cell count method Nom (Bld) Auto Normal [facility] Comment on above: Order Comment: Speci men Type: BLOOD SPECIMENOrdering Facility: [facility] Address: [address] [place] [address] Performed By: #### 5 7021-8 ####[facility] LABORATORYCLIA [id number] [address] [place] Eosinophils (Bld) [#/Vol] 0.31 10*3/uL Normal <0.46 [facility] Comment on above: Order Comment: Speci men Type: BLOOD SPECIMENOrdering Facility: [facility] Address: [address] [place] [address] Performed By: #### 5 7021-8 ####[facility] LABORATORYCLIA [id number] [address] Eosinophils/100 WBC (Bld) 3.4 % Normal [facility] Comment on above: Order Comment: Speci men Type: BLOOD SPECIMENOrdering Facility: [facility] Address: [address] [place] [address] Performed By: #### 5 7021-8 ####[facility] LABORATORYCLIA [id number] [address] [place] Erythrocyte distribution width (RBC) [Ratio] 13.7 % Normal 11.5-15.0 [facility] Comment on above: Order Comment: Speci men Type: BLOOD SPECIMENOrdering Facility: [facility] Address: [address] [place] [address] Performed By: #### 5 7021-8 ####[facility] LABORATORYCLIA [id number] [address] [place] Hematocrit (Bld) [Volume fraction] 42.2 % Normal 36.0-46.0 [facility] Comment on above: Order Comment: Speci men Type: BLOOD SPECIMENOrdering Facility: [facility] Address: [address] [place] [address] Performed By: #### 5 7021-8 ####[facility] LABORATORYCLIA [id number] [address] [place] Hemoglobin (Bld) [Mass/Vol] 13.7 g/dL Normal 11.5-15.5 [facility] Comment on above: Order Comment: Speci men Type: BLOOD SPECIMENOrdering Facility: [facility] Address: [address] [place] [address] Performed By: #### 5 7021-8 ####[facility] LABORATORYCLIA [id number] [address] [place] Immature granulocytes (Bld) [#/Vol] 0.03 10*3/uL Normal <0.10 [facility] Comment on above: Order Comment: Speci men Type: BLOOD SPECIMENOrdering Facility: [facility] Address: [address] [place] [address] Performed By: #### 5 7021-8 ####[facility] LABORATORYCLIA [id number] [address] Immature granulocytes/100 WBC (Bld) 0.3 % Normal [facility] Comment on above: Order Comment: Speci men Type: BLOOD SPECIMENOrdering Facility: [facility] Address: [address] [place] [address] Performed By: #### 5 7021-8 ####[facility] LABORATORYCLIA [id number] [address] [place] Lymphocytes (Bld) [#/Vol] 2.00 10*3/uL Normal 1.00-4.00 [facility] Comment on above: Order Comment: Speci men Type: BLOOD SPECIMENOrdering Facility: [facility] Address: [address] [place] [address] Performed By: #### 5 7021-8 ####[facility] LABORATORYCLIA [id number] [address] [place] Lymphocytes/100 WBC (Bld) 22.0 % Normal [facility] Comment on above: Order Comment: Speci men Type: BLOOD SPECIMENOrdering Facility: [facility] Address: [address] [place] [address] Performed By: #### 5 7021-8 ####[facility] LABORATORYCLIA [id number] [address] MCH (RBC) [Entitic mass] 31.6 pg Normal 26.0-34.0 [facility] Comment on above: Order Comment: Speci men Type: BLOOD SPECIMENOrdering Facility: [facility] Address: [address] [place] [address] Performed By: #### 5 7021-8 ####[facility] LABORATORYCLIA [id number] [address] STATES OF [facility] MCHC (RBC) [Mass/Vol] 32.5 g/dL Normal 30.5-36.0 [facility] Comment on above: Order Comment: Speci men Type: BLOOD SPECIMENOrdering Facility: [facility] Address: [address] [place] [address] Performed By: #### 5 7021-8 ####[facility] LABORATORYCLIA [id number] [address] STATES [facility] MCV (RBC) [Entitic vol] 97.5 fL Normal 80.0-100.0 [facility] Comment on above: Order Comment: Speci men Type: BLOOD SPECIMENOrdering Facility: [facility] Address: [address] [place] [address] Performed By: #### 5 7021-8 ####[facility] LABORATORYCLIA [id number] [address] STATES [facility] Monocytes (Bld) [#/Vol] 0.58 10*3/uL Normal <0.87 [facility] Comment on above: Order Comment: Speci men Type: BLOOD SPECIMENOrdering Facility: [facility] Address: [address] [place] [address] Performed By: #### 5 7021-8 ####[facility] LABORATORYCLIA [id number] [address] Monocytes/100 WBC (Bld) 6.4 % Normal [facility] Comment on above: Order Comment: Speci men Type: BLOOD SPECIMENOrdering Facility: [facility] Address: [address] [place] [address] Performed By: #### 5 7021-8 ####[facility] LABORATORYCLIA [id number] [address] [place] Neutrophils (Bld) [#/Vol] 6.08 10*3/uL Normal 1.45-7.50 [facility] Comment on above: Order Comment: Speci men Type: BLOOD SPECIMENOrdering Facility: [facility] Address: [address] [place] [address] Performed By: #### 5 7021-8 ####[facility] LABORATORYCLIA [id number] [address] Neutrophils/100 WBC (Bld) 67.0 % Normal [facility] Comment on above: Order Comment: Speci men Type: BLOOD SPECIMENOrdering Facility: [facility] Address: [address] [place] [address] Performed By: #### 5 7021-8 ####[facility] LABORATORYCLIA [id number] [address] Nucleated RBC (Bld) [#/Vol] 10*3/uL Normal <0.01 [facility] Comment on above: Order Comment: Speci men Type: BLOOD SPECIMENOrdering Facility: [facility] Address: [address] [place] [address] Performed By: #### 5 7021-8 ####[facility] LABORATORYCLIA [id number] [address] Nucleated RBC/100 WBC (Bld) [Ratio] 0.0 /100 WBC Normal [facility] Comment on above: Order Comment: Speci men Type: BLOOD SPECIMENOrdering Facility: [facility] Address: [address] [place] [address] Performed By: #### 5 7021-8 ####[facility] LABORATORYCLIA [id number] [address] Platelet mean volume (Bld) [Entitic vol] 9.7 fL Normal 9.0-12.7 [facility] Comment on above: Order Comment: Speci men Type: BLOOD SPECIMENOrdering Facility: [facility] Address: [address] [place] [address] Performed By: #### 5 7021-8 ####[facility] LABORATORYCLIA [id number] [address] [place] Platelets (Bld) [#/Vol] 257 10*3/uL Normal 150-400 [facility] Comment on above: Order Comment: Speci men Type: BLOOD SPECIMENOrdering Facility: [facility] Address: [address] [place] [address] Performed By: #### 5 7021-8 ####[facility] LABORATORYCLIA [id number] [address] RBC (Bld) [#/Vol] 4.33 10*6/uL Normal 3.90-5.20 [facility] Comment on above: Order Comment: Speci men Type: BLOOD SPECIMENOrdering Facility: [facility] Address: [address] [place] [address] Performed By: #### 5 7021-8 ####[facility] LABORATORYCLIA [id number] [address] OF [facility] WBC (Bld) [#/Vol] 9.08 10*3/uL Normal 3.70-11.00 [facility] Comment on above: Order Comment: Speci men Type: BLOOD SPECIMENOrdering Facility: [facility] Address: [address] [place] [address] Performed By: #### 5 7021-8 ####[facility] LABORATORYCLIA [id number] [address] CNOVon 05-05-2022 CNOV Office Visit (NEURMM ) -------- ISABELLE MEDRANO ([id number]) 1940 F Date Time Provider Department 05/05/22 [...] by 930AM. I have no records from [facility] where pt was evaluated for seizure. [...] taken to ER. In the ER at [facility] per family had ECG and CT [...] significant deteriora (more content not included)... Normal [facility] CONSULTon 05-05-2022 CONSULT Normal [facility] CT BRAIN WO IVCONon 05-05-20 CT BRAIN WO IVCON Normal [facility] ECG COMPLETEon 05-05-2022 ECG COMPLETE Normal [facility] ED Triage Noteon 05-05-2022 ED Triage Note Normal [facility] HIGH SENSITIVITY TROPONIN T (INITIAL)on 05-05-2022 HIGH SENSITIVITY ARLINE 15 ng/L High <12 [facility] Comment on above: Order Comment: Michelle duorn Type: BLOOD SPECIMENOrdering Facility: [facility] Address: [address] [place] [address] Result Comment: When assessing risk for acute [...] 30 day MACE. Performed By: #### L [id number] ####[facility] LABORATORYCLIA [id number] [address] OF [facility] HIGH SENSITIVITY TROPONIN T (SECOND)on 05-05-2022 HIGH SENSITIVITY ARLINE 15 ng/L High <12 [facility] Comment on above: Order Comment: Michelle duron Type: BLOOD SPECIMENOrdering Facility: [facility] Address: [address] [place] [address] Result Comment: When assessing risk for acute [...] 30 day MACE. Performed By: #### L [id number] ####[facility] LABORATORYCLIA [id number] [place] [address] [facility] HISTORY PHYSICALon HISTORY PHYSICAL Normal [facility] SARS-CoV-2 RNA Resp Ql AVRIL+p robeon 05-05-2022 SARS-CoV-2 (COVID-19) RNA AVRIL+probe Ql (Resp) COVID 19 RESULT: SARS-CoV-2 (Agent of COVID-19) Not Detected by RT-PCR or equivalent method. This test has been authorized by FDA under an Emergency Use Authorization (EUA). Normal [facility] Comment on above: Performed By: #### 9 4500-6 ####[facility] LABORATORYCLIA [id number] [place] [address] [facility] CNPAbigail 04-26-2022 CNPN Telephone (NAREN) -------- ISABELLE MEDRANO ([id number]) 1940 F Date Time Provider Department 04/26/22 EPHRAIM TATE JR During your visit today, we recorded the following information about you: Madisyn Chaidez 04/26/2022 11:05 AM Signed Patient's spouse called to report that she was admitted [facility] on 04/24/22 for increase in symptoms [...] patient has had seizures since being a [facility]. Patient has had one on Tuesday [...] Pss 04/28/2022 12:47 PM Signed Talked to [id number] Anca and scheduled the patient an appointment. Allergies As of Date: 04/26/2022 Noted Allergy Reaction KEPPRA (LEVETIRACETAM) 07/24/2019 8 - GI Upset [id number] YMYXNB 07/25/2014 2 - Rash CODEINE 07/29/2015 14 - Other: See Comments Comments: makes me ill NICKEL 06/25/2019 16 - Unknown Date Reviewed: 01/21/2022 Reviewed by: Maribel Rose APRN.ENGAGEMENT LIAISON - Fully Assessed Reason for Visit: Patient Update [5834] Patient Question [7557] Prescriptions as of 04/28/2022 - DULoxetine (CYMBALTA) [...] CR-TABS Maribell Arias PA-C 09-06-2016 [facility] ([id number]) - cyanocobalamin (VITAMIN B-12) 1,000 mcg tab Vitamin B 12 VITAMIN B-12 1000 MCG TABS One tablet by mouth daily CYANOCOBALAMIN [id number] Coleen Erwin RN 07-23-2014 [facility] ([id number]) - ketoconazole (NIZORAL) 2 % cream - [...] 04/28/22 [facility] Babak 01-22-2022 RADHIKAN Telephone (NAREN) -------- ISABELLE MEDRANO ([id number]) 1940 F Date Time Provider Department 01/22/22 MARIBEL ROSE During your visit today, we recorded the following information about you: Krista Coreas LPN 01/22/2022 2:08 PM Signed ----- Message from Maribel Rose APRN.ENGAGEMENT LIAISON sent at 01/22/2022 7:13 AM EDT ----- Your vitamin B12 level has come back in the low/low normal range (under 400). Please take an over the counter supplement to help treat this issue as when the level is under 400 it can cause symptoms at times. [place] treatment would be through the under the [...] KEPPRA (LEVETIRACETAM) 07/24/2019 8 - GI Upset [id number] YMYXNB 07/25/2014 2 - Rash CODEINE 07/29/2015 14 - Other: See Comments Comments: makes me ill NICKEL 06/25/2019 16 - Unknown Date Reviewed: 01/21/2022 Reviewed by: Maribel Rose APRN.ENGAGEMENT LIAISON - Fully Assessed Reason for Visit: Results [...] ASCORBIC ACID CR-TABS Maribell Arias PA-C 09-06-2016 [facility] ([id number]) - cyanocobalamin (VITAMIN B-12) 1,000 mcg tab Vitamin B 12 VITAMIN B-12 1000 MCG TABS One tablet by mouth daily CYANOCOBALAMIN [id number] Coleen Erwin RN 07-23-2014 [facility] ([id number]) - ketoconazole (NIZORAL) 2 % cream - [...] 01/25/22 [facility] CASAOVанна 01-21-2022 CNPEDRO LUIS Office Visit (NAREN ) -------- ISABELLE MEDRANO ([id number]) 1940 F Date Time Provider Department 01/21/22 11:30 AM MARIBEL ROSE During your visit today, we recorded the following information about you: Pulse Respiration Blood pressure Weight 79/minute 14/minute 128/77 87.5 kg Maribel Rose APRN.CNP 01/21/2022 12:58 PM Signed [facility] Follow-up Visit Follow-up note January 21, 2022 [...] 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 that 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 and will do so when she [...] Words, up to 2 trials: Face, Velvet, Orthodox, Jesus, Red (no points) 5/5 first try, [...] 1 error) (05/16) Serial subtraction by 7: [id number] (3 points for correct 4 or 5; 2 points for 2 or 3 correct; 1 point for 1 correct) [id number] (3/3) Language: repeat: I only know that [...] (06/17) Delayed recall: recall words: face, velvet, jew, jesus, red (0-5) (06/20) Orientation: date(1), month(1), [...] Maribell Arias PA-C 09-06-2016 [facility] ([id number]) cyanocobalamin (VITAMIN B-12) 1,000 mcg tab Vitamin B 12 VITAMIN B-12 1000 MCG TABS One tablet by mouth daily CYANOCOBALAMIN [id number] Coleen Erwin RN 07-23-2014 (more content not included)... Normal [facility] Comprehensive metabolic 2000 panelon 01-21-2022 Albumin [Mass/Vol] 4.5 g/dL Normal 3.9-4.[address] [facility] Comment on above: Order Comment: Speci men Type: BLOOD SPECIMENOrdering Facility: [facility] Address: [address] [place] [address] Performed By: #### 2 4323-8, 2-9, 4-8, 3016-3 ####[facility] LABIA [id number] [place] [address] [place] ALP [Catalytic activity/Vol] 144 U/L High 34-123 [facility] Comment on above: Order Comment: Speci men Type: BLOOD SPECIMENOrdering Facility: [facility] Address: [address] [place] [address] Performed By: #### 2 4323-8, 2-9, 4-8, 3016-3 ####[facility] [id number] [place] [address] [place] ALT [Catalytic activity/Vol] 15 U/L Normal 7-38 [facility] Comment on above: Order Comment: Speci men Type: BLOOD SPECIMENOrdering Facility: [facility] Address: [address] [place] [address] Performed By: #### 2 4323-8, 2-9, 4-8, 3016-3 ####[facility] LABCLIA [id number] [place] [address] [place] Anion gap [Moles/Vol] 11 mmol/L Normal 9-18 [facility] Comment on above: Order Comment: Speci men Type: BLOOD SPECIMENOrdering Facility: [facility] Address: [address] [place] [address] Performed By: #### 2 4323-8, 2132-9, 2284-8, 3016-3 ####[facility] LABCLIA [id number] [place] [address] [place] AST [Catalytic activity/Vol] 18 U/L Normal 13-35 [facility] Comment on above: Order Comment: Speci men Type: BLOOD SPECIMENOrdering Facility: [facility] Address: [address] [place] [address] Performed By: #### 2 4323-8, 2-9, 4-8, 3016-3 ####[facility] LABCLIA [id number] [address] [place] Bilirubin [Mass/Vol] 0.5 mg/dL Normal 0.2-1.3 [facility] Comment on above: Order Comment: Speci men Type: BLOOD SPECIMENOrdering Facility: [facility] Address: [address] [place] [address] Performed By: #### 2 4323-8, 2-9, 4-8, 3016-3 ####[facility] LABCLIA [id number] [place] [address] [place] Calcium [Mass/Vol] 9.3 mg/dL Normal 8.5-10.[address] [facility] Comment on above: Order Comment: Speci men Type: BLOOD SPECIMENOrdering Facility: [facility] Address: [address] [place] [address] Performed By: #### 2 4323-8, 2132-9, 2284-8, 3016-3 ####[facility] LABCLIA [id number] [place] [address] [place] Chloride [Moles/Vol] 107 mmol/L High 97-105 [facility] Comment on above: Order Comment: Speci men Type: BLOOD SPECIMENOrdering Facility: [facility] Address: [address] [place] [address] Performed By: #### 2 4323-8, 2132-9, 2284-8, 3016-3 ####[facility] [id number] [place] [address] [place] CO2 [Moles/Vol] 24 mmol/L Normal 22-30 [facility] Comment on above: Order Comment: Speci men Type: BLOOD SPECIMENOrdering Facility: [facility] Address: [address] [place] [address] Performed By: #### 2 4323-8, 2-9, 4-8, 3016-3 ####[facility] [id number] [place] [address] [place] Creatinine [Mass/Vol] 0.69 mg/dL Normal 0.58-0.96 [facility] Comment on above: Order Comment: Speci men Type: BLOOD SPECIMENOrdering Facility: [facility] Address: [address] [place] [address] Performed By: #### 2 4323-8, 2-9, 4-8, 3016-3 ####[facility] [id number] [place] [address] [place] ESTIMATED GLOMERULAR FILTRATION RATE 86 mL/min/1.73m??? Normal >=60 [facility] Comment on above: Order Comment: Speci men Type: BLOOD SPECIMENOrdering Facility: [facility] Address: [address] [place] [address] Result Comment: Ilda mated Glomerular Filtration Rate [...] By: #### 2 3-8, 9, 2283-12, 6-3 ####[facility] LABCLIA [id number] [address] [address] [place] Glucose [Mass/Vol] 112 mg/dL High 74-[address] [facility] Comment on above: Order Comment: Michelle duron Type: BLOOD SPECIMENOrdering Facility: [facility] Address: [address] [id number] Result Comment: The [place] Diabetes Association (ADA) provides guidance for cutoff [...] Standards of Medical Care in Diabetes 2016, [place] [employer]. Diabetes Care. 2016.39(Suppl 1). Performed By: #### 2 4323-8, 9, 2283-12, 3015-3 ####[facility] LABCLIA [id number] [address] [address] [place] Potassium [Moles/Vol] 4.4 mmol/L Normal 3.7-5.1 [facility] Comment on above: Order Comment: Michelle duron Type: BLOOD SPECIMENOrdering Facility: [facility] Address: [address] [place] [address] Performed By: #### 2 4323-8, 9, 2283-12, 6-3 ####[facility] LABCLIA [id number] [place] [address] [place] Protein [Mass/Vol] 6.6 g/dL Normal 6.3-8.[address] [facility] Comment on above: Order Comment: Speci men Type: BLOOD SPECIMENOrdering Facility: [facility] Address: [address] [place], [place] [id number] Performed By: #### 2 4323-8, 2-9, 4-8, 3016-3 ####[facility] LABCLIA [id number] [place] [address] [place] Sodium [Moles/Vol] 142 mmol/L Normal 136-[address] [facility] Comment on above: Order Comment: Speci men Type: BLOOD SPECIMENOrdering Facility: [facility] Address: [address] [place] [address] Performed By: #### 2 4323-8, 2-9, 4-8, 3016-3 ####[facility] LABCLIA [id number] [place] [address] [place] Urea nitrogen [Mass/Vol] 19 mg/dL Normal 7-21 [facility] Comment on above: Order Comment: Speci men Type: BLOOD SPECIMENOrdering Facility: [facility] Address: [address] [place] [address] Performed By: #### 2 4323-8, 2131-9, 4-8, 3016-3 ####[facility] [id number] [place] [address] [place] Folate SerPl-mCncon 01-22-20 22 Folate [Mass/Vol] ng/mL Normal >4.7 [facility] Comment on above: Order Comment: Speci men Type: BLOOD SPECIMENOrdering Facility: [facility] Address: [address] [place], [place] [address] Result Comment: A re sult of > 20 ng/mL is not necessarily indicative of a pathologic or treatable condition: it reflects a limitation of the test methodology. Assay reference range: 4.8 to 24.2 ng/mL. Suitable for detection of folate deficiency. Reference: Folate III (Folate III) [package insert V 1.0 Malian]. [facility], [place], [place]: March 2015. Performed By: #### 2 4323-8, 2-9, 4-8, 3016-3 ####[facility] LABCLIA [id number] [address] [place] TSH SerPl-aCncon 01-21-2022 TSH Qn 3.500 m[IU]/L Normal 0.270-4.200 [facility] Comment on above: Order Comment: Michelle duron Type: BLOOD SPECIMENOrdering Facility: [facility] Address: [address] [place] [address] Performed By: #### 2 4323-8, 2131-9, 2283-8, 6-3 ####[facility] LABCLIA [id number] [address] Vit B12 SerPl-mCncon 022 Cobalamin (Vitamin B12) [Mass/Vol] 381 pg/mL Normal 232-1245 [facility] Comment on above: Order Comment: Michelle duron Type: BLOOD SPECIMENOrdering Facility: [facility] Address: [address] [place] [address] Performed By: #### 2 4323-8, 2131-9, 2283-8, 6-3 ####[facility] [id number] [address] [place] CNOVon 09-17-2021 CNOV Office Visit (NEMHELIO ) -------- ISABELLE MEDRANO ([id number]) 1940 F Date Time Provider Department 09/17/21 11:30 AM MARIBEL ROSE During your visit today, we recorded the following information about you: Temperature Pulse Respiration Blood pressure 97.3 degrees 73/minute 18/minute 122/78 Weight 84.4 kg Maribel Rose APRN.ENGAGEMENT LIAISON 09/17/2021 12:28 PM Signed [facility] Follow-up Visit Follow-up note September 17, 2021 [...] ASCORBIC ACID CR-TABS Maribell Arias PA-C 09-06-2016 [facility] ([id number]) - cyanocobalamin (VITAMIN B-12) 1,000 mcg tab Vitamin B 12 VITAMIN B-12 1000 MCG TABS One tablet by mouth daily CYANOCOBALAMIN [id number] Coleen Erwin RN 07-23-2014 [facility] ([id number]) - ketoconazole (NIZORAL) 2 % cream - [...] or cerv (more content not included)... Normal [facility] Lab Report: Lipid Profileon 03-15-2017 Cholesterol 136 mg/dL Invalid Interpretation Code [employer] Work Phone: [phone] HDL Cholesterol 49 mg/dL Invalid Interpretation Code [employer] Phone: [phone] LDL Cholesterol 65 mg/dL Invalid Interpretation Code 0-130 [employer] Work Phone: [phone] Triglyceride 108 mg/dL Invalid Interpretation Code [employer] Work Phone: [phone] very low density lipoproteins 22 mg/dL Invalid Interpretation Code 5-40 [employer] Work Phone: [phone] Lab Report: Liver Profileon 03-15-2017 Alanine aminotransferase (ALT) 24 U/L Invalid Interpretation Code 12-78 [employer] Work Phone: [phone] Albumin 3.5 g/dL Invalid Interpretation Code 3.4-5.0 [employer] Work Phone: [phone] Alkaline phosphatase (ALP) 100 U/L Invalid Interpretation Code 45-117 [employer] Work Phone: [phone] Aspartate aminotransferase (AST) 14 U/L Low 15-37 [employer] Work Phone: [phone] Bilirubin (direct) 0.14 mg/dL Invalid Interpretation Code 0.00-0.30 [employer] Phone: [phone] Bilirubin (total) 0.60 mg/dL Invalid Interpretation Code 0.20-1.00 [employer] Phone: [phone] Globulin 3.4 g/dL Invalid Interpretation Code 2.2-4.2 [employer] Work Phone: [phone] Protein 6.9 g/dL Invalid Interpretation Code 6.4-8.2 [employer] Work Phone: [phone] Office Visiton 03-07-2017 Dietary management education, guidance, and counseling (procedure) yes Invalid Interpretation Code [employer] Work Phone: [phone] Documentation of current medications (procedure) Done Invalid Interpretation Code [employer] Work Phone: [phone] Fall risk assessment No Invalid Interpretation Code [employer] Work Phone: [phone] Protein mass conc Done Invalid Interpretation Code [employer] Work Phone: [phone] Tobacco smoking status NHIS Former smoker Invalid Interpretation Code [employer] Work Phone: [phone] Tobacco use CPHS Former smoker Invalid Interpretation Code [employer] Work Phone: [phone] Clinical Lists Update: Pre integration specialist 09-03-2016 Left ventricular Ejection fraction 60 % Invalid Interpretation Code [employer] Work Phone: [phone] Clinical Lists Update: Pre integration specialist 01-25-2016 Hemoglobin A1c/Hemoglobin.total mass fraction (Bld) 6.4 % Invalid Interpretation Code [employer] Work Phone: [phone] Thyrotropin Qn 3.64 u[iU]/mL Invalid Interpretation Code [employer] Work Phone: [phone]) Clinical Lists Update: Pre integration specialist 01-24-2016 Calcium mass conc 8.9 mg/dL Invalid Interpretation Code [employer] Work Phone: [phone] Chloride molar conc 110 mmol/L Invalid Interpretation Code [employer] Work Phone: [phone] CO2 25.0 mmol/L Invalid Interpretation Code [employer] Work Phone: [phone] CO2 ppres (BldV) 25.0 mmol/L Invalid Interpretation Code [employer] Work Phone: [phone] Creatinine mass conc 0.74 mg/dL Invalid Interpretation Code [employer] Work Phone: [phone] Glucose mass conc 122 mg/dL Invalid Interpretation Code [employer] Work Phone: Hematocrit Auto Volume Fraction (Bld) 41.0 % Invalid Interpretation Code [employer] Work Phone: [phone] Hemoglobin mass conc (Bld) 14.4 g/dL Invalid Interpretation Code [employer] Work Phone: [phone] Platelets Auto #/vol (Bld) 236 10*3/mm3 Invalid Interpretation Code [employer] Work Phone: [phone] Potassium molar conc 3.7 mmol/L Invalid Interpretation Code [employer] Work Phone: [phone] Sodium molar conc 146 mmol/L Invalid Interpretation Code [employer] Work Phone: [phone] Urea nitrogen mass conc 11 mg/dL Invalid Interpretation Code [employer] Work Phone: [phone] Urea nitrogen/Creatinine mass ratio 14.9 mg/mg Invalid Interpretation Code [employer] Work Phone: [phone] WBC Auto #/vol (Bld) 9.3 10*3/uL Invalid Interpretation Code [employer] Work Phone: [phone] Replaced Document: Jake Alexis CG Observationson 08-06-2015 EKG QRS axis 17 deg Invalid Interpretation Code [employer] Work Phone: [phone] Interpretation Sinus Rhythm -First degree A-V block Isra = 230BORDERLINE RHYTHM Invalid Interpretation Code [employer] Work Phone: [phone] P [place] 49 deg Invalid Interpretation Code [employer] Work Phone: [phone] OH Interval 230 ms Invalid Interpretation Code [employer] Work Phone: [phone] Pulse (Heart Rate) 74 /min Invalid Interpretation Code [employer] Work Phone: [phone] QRS Duration 104 ms Invalid Interpretation Code [employer] Work Phone: [phone] QT Interval new path ms Invalid Interpretation Code [employer] Work Phone: [phone] QTc Ng 398 ms Invalid Interpretation Code [employer] Work Phone: [phone] T [place] 48 deg Invalid Interpretation Code [employer] Work Phone: [phone] Office Visiton 02-03-2015 General cardiovascular disease 10Y risk [#] [place].D'Agostin o 15 % Invalid Interpretation Code [facility] Work Phone: [phone] Clinical Lists Update: Pre integration specialist 11-05-2014 Anion gap 8 mmol/L Invalid Interpretation Code [facility] Work Phone: [phone] Anion gap 4 molar conc 8 Invalid Interpretation Code [facility] Work Phone: [phone] MCH Auto Entitic mass (RBC) 32.0 pg Invalid Interpretation Code [facility] Work Phone: [phone] MCV Auto Entitic volume (RBC) 102.2 fL High [facility] Work Phone: [phone] RBC Auto #/vol (Bld) 4.15 10*6/uL Low Valerie navasr [facility] Work Phone: [phone]) Office Visiton 07-25-2014 cardiac risk group C Invalid Interpretation Code [facility] Work Phone: [phone]) Clinical Lists Update: Pre integration specialist 08-31-2013 Cholesterol in HDL mass conc 45 mg/dL Low [facility] Work Phone: [phone] Cholesterol in LDL mass conc 74 mg/dL Invalid Interpretation Code [facility] Work Phone: [phone] Cholesterol mass conc 144 mg/dL Invalid Interpretation Code [facility] Work Phone: [phone] Lipoprotein.pre-beta mass conc 25 mg/dL Invalid Interpretation Code [facility] Work Phone: [phone] Triglyceride mass conc 124 mg/dL Invalid Interpretation Code [facility] Work Phone: [phone] Vital Signs Date Time Vital Sign Value Performing Clinician Rachell connell 05-05-2022 08:30-0500 Body weight 83.14 kg Ephraim Tate Jr., MD Work Phone: [facility] 05-05-2022 08:30-0500 Diastolic blood pressure 63 mm[Hg] Ephraim Tate Jr., MD Work Phone: [facility] 05-05-2022 08:30-0500 Heart rate 78 /min Ephraim Tate Jr., MD Work Phone: [facility] 05-05-2022 08:30-0500 SaO2% (BldA) [Mass fraction] 95 % Ephraim Tate Jr., MD Work Phone: [facility] 05-05-2022 08:30-0500 Systolic blood pressure 134 mm[Hg] Ephraim Tate Jr., MD Work Phone: [facility] 01-21-2022 12:01-0400 Diastolic blood pressure 77 mm[Hg] Maribel Dahlhausen LAST CODE STRIPER.ENGAGEMENT LIAISON Work Phone: [facility] 01-21-2022 12:01-0400 Heart rate 79 /min Maribel Dahlhausen LAST CODE STRIPER.ENGAGEMENT LIAISON Work Phone: [facility] 01-21-2022 12:01-0400 Systolic blood pressure 128 mm[Hg] Maribel Dahlhausen LAST CODE STRIPER.ENGAGEMENT LIAISON Work Phone: [facility] 01-21-2022 11:21-0400 Body weight 87.54 kg Maribel Dahlhausen LAST CODE STRIPER.ENGAGEMENT LIAISON Work Phone: [facility] 01-21-2022 11:21-0400 Respiratory rate 14 /min Maribel Dahlhausen LAST CODE STRIPER.ENGAGEMENT LIAISON Work Phone: [facility] 01-21-2022 11:21-0400 SaO2% (BldA) [Mass fraction] 96 % Maribel Dahlhausen LAST CODE STRIPER.ENGAGEMENT LIAISON Work Phone: [facility] 09-17-2021 11:39-0400 Body temperature 97.3 [degF] Maribel Dahlhausen LAST CODE STRIPER.ENGAGEMENT LIAISON Work Phone: [facility] 09-17-2021 11:39-0400 Body weight 84.37 kg Maribel Dahlhausen LAST CODE STRIPER.ENGAGEMENT LIAISON Work Phone: [facility] 09-17-2021 11:39-0400 Diastolic blood pressure 78 mm[Hg] Maribel Dahlhausen LAST CODE STRIPER.ENGAGEMENT LIAISON Work Phone: [facility] 09-17-2021 11:39-0400 Heart rate 73 /min Maribel Dahlhausen LAST CODE STRIPER.ENGAGEMENT LIAISON Work Phone: [facility] 09-17-2021 11:39-0400 Respiratory rate 18 /min Maribelsonali Rose LAST CODE STRIPER.ENGAGEMENT LIAISON Work Phone: [facility] 09-17-2021 11:39-0400 SaO2% (BldA) [Mass fraction] 97 % Maribelsujey Rose LAST CODE STRIPER.ENGAGEMENT LIAISON Work Phone: [facility] 09-17-2021 11:39-0400 Systolic blood pressure 122 mm[Hg] Maribelsonali Rose LAST CODE STRIPER.ENGAGEMENT LIAISON Work Phone: [facility] 03-07-2017 13:52-0400 BMI (Body Mass Index) 30.7 [...] 14:49-0400 Heart rate 74 /min Afshin Liriano [facility] Work Phone: Encounters Encounter Date Encounter Type Care Provider Facility Start: 09-08-2022 Telephone encounter Nkechi Angulo RN [facility] Comment on above: Orders ([place] [facility] - ord er contact/deferral) Start: 08-11-2022 Telephone encounter Alden Rudolph am, MD Work Phone: Neurology Comment on above: Outside Labs Results ([place]/Lamictal) Start: 08-05-2022 Telephone encounter Alden Rudolph am, [...] Question Start: 07-29-2022 Telephone encounter Mary RICO [facility] Comment on above: Orders ([facility] order co ntact/SNF letter) Start: 07-24-2022 Telephone encounter Lizzy grewal LAST CODE STRIPER.ENGAGEMENT LIAISON Work Phone: [place] PROVID[facility] ADULT Comment on above: Orders Start: 07-16-2022 End: 07-28-2022 Evaluation and management of inpatient LIBBY JIMENEZ Facility:[facility] Start: 06-20-2022 Refill Brittanie fowler LAST CODE STRIPER.ENGAGEMENT LIAISON Work Phone: Family Medicine Comment on above: Refill Request Start: 06-14-2022 Refill Brittanie fowler LAST CODE STRIPER.ENGAGEMENT LIAISON Work Phone: Family Medicine Comment on above: Refill Request Start: 06-09-2022 Telephone encounter Alden Rudolph am, MD Work Phone: Epilepsy Comment on above: Patient Update (Retu rning fundraising coordinator call) Request Outside Medi meredith Records ([facility]) Received Outside Med ical Records ([facility]) Start: 06-08-2022 Telephone encounter Alden Rudolph am, MD Work Phone: Epilepsy Comment on above: Returning Patient's Call; Patient Update Start: 05-31-2022 Telephone encounter Alden Rudolph am, MD Work Phone: Neurology Comment on above: Seizures (/) Start: 05-11-2022 Telephone encounter Alden Rudolph am, MD Work Phone: Neurology Comment on above: Medication Concern ( Rash) Start: 05-06-2022 Orders Only Brittanie fowler LAST CODE STRIPER.ENGAGEMENT LIAISON Work Phone: Neurology Comment on above: Cognitive changes (P rimary Dx); Syncope and collapse Convulsions, unspeci fied convulsion type (HCC) (Primary Dx) Start: 05-05-2022 End: 05-06-2022 Evaluation and management of inpatient [facility] Facility:[facility] Start: 05-05-2022 End: 05-05-2022 ambulatory [facility] Facility:[facility] Start: 05-05-2022 End: 05-05-2022 Patient encounter procedure Ephraim Tate MD Work Phone: Neurology Comment on above: Seizures (HCC) (Prim damari Dx); 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); Spinal stenosis of lumbar region, unspecified whether neurogenic claudication present; Memory problem Start: 03-31-2022 Refill Maribel bennett APRN.ENGAGEMENT LIAISON Work Phone: Neurology Comment on above: Refill Request Start: 01-22-2022 Telephone encounter Maribel Salas APRN.ENGAGEMENT LIAISON Work Phone: Neurology Comment on above: Results Start: 01-21-2022 End: 01-21-2022 ambulatory [facility] Facility:[facility] Start: 01-21-2022 End: 01-21-2022 Patient encounter procedure Maribel Rose APRN.ENGAGEMENT LIAISON Work Phone: Neurology Comment on above: Neuropathy due to ty pe 2 diabetes mellitus (HCC) (Primary Dx); Spinal stenosis of lumbar region, unspecified whether neurogenic claudication present; Memory problem Start: 12-25-2021 Refill Maribel Rubin usen LAST CODE STRIPER.ENGAGEMENT LIAISON Work Phone: Neurology Comment on above: Refill Request Start: 10-01-2021 Refill Maribel Rubin usen LAST CODE STRIPER.ENGAGEMENT LIAISON Work Phone: Neurology Comment on above: Refill Request Start: 09-17-2021 End: 09-17-2021 ambulatory MARIBEL ROSE Facility:[facility] Start: 09-17-2021 End: 09-17-2021 Patient encounter procedure Maribel Rose LAST CODE STRIPER.ENGAGEMENT LIAISON Work Phone: Neurology Comment on above: Neuropathy [...] Comment: Speci men Type: BLOOD SPECIMENOrdering Facility: [facility] Address: [address] [place], [place] [address] Performed By: #### T SCR ####[facility] BLO[facility] BANKCLIA [id number] [place] [address] [place] Start: 07-18-2022 Electrocardiogram [...] PA-C Work Phone: Start: 08-06-2015 End: 08-06-2015 [facility] Maribell Arias PA-C Work Phone: [...] Start: 01-16-2023 Hemoglobin A1c/Hemoglobin.total in Blood HBA1C [facility] Start: 09-07-2022 End: 08-23-2023 Radiologic exam chest 2 views XR CHEST 2V FRONTAL/LAT Radiology Routine Pleural effusion Expected: 09/07/2022, Expires: 08/23/2023 [facility] Work Phone: Comment on above: Expected: 09/07/2022 , Expires: 08/23/2023 Start: 05-16-2022 ADVANCE DIRECTIVE DISCUSSION ADVANCE DIRECTIVE DISCUSSION [facility] Start: 05-16-2022 DEPRESSION ASSESSMENT DEPRESSION ASS ESSMENT [facility] Start: 01-21-2022 End: 03-23-2022 Cobalamin (Vitamin B12) [Mass/volume] in Serum or Plasma [facility] Work Phone: Comment on above: Expected: 01/21/2022 , Expires: 03/23/2022 Start: 01-21-2022 End: 03-23-2022 Comprehensive metabolic 2000 panel - Serum or Plasma [facility] Work Phone: Comment on above: Expected: 01/21/2022 , Expires: 03/23/2022 Start: 01-21-2022 End: 03-23-2022 Folate [Mass/volume] in Serum or Plasma [facility] Work Phone: Comment on above: Expected: 01/21/2022 , Expires: 03/23/2022 Start: 01-21-2022 End: 03-23-2022 Thyrotropin [Units/volume] in Serum or Plasma [facility] Work Phone: Comment on above: Expected: 01/21/2022 , Expires: 03/23/2022 Start: 01-14-2022 Influenza vaccination INFLUENZA (#1) [facility] Start: 05-16-2021 ADVANCE DIRECTIVE DISCUSSION ADVANCE DIRECTIVE DISCUSSION [facility] Start: 05-16-2021 DEPRESSION ASSESSMENT DEPRESSION ASS ESSMENT [facility] Start: 11-30-2020 COVID-19 VACCINE (4 - Booster for Moderna series) COVID-19 VACCINE (4 - Booster for Moderna series) [facility] Start: 09-25-2020 COVID-19 VACCINE (4 - Booster for Moderna series) COVID-19 VACCINE (4 - Booster for Moderna series) [facility] Start: 03-15-2018 End: 03-16-2017 *Hepatic Function Panel *Hepatic Function Panel [facility] Work Phone: Start: 03-15-2018 Hepatitis B surface antibody level LDL CHOLESTEROL [facility] Start: 03-15-2018 End: 03-16-2017 Lipid panel [AGGREGATE] *Lipid Profile CC PCP [facility] Work Phone: Start: 09-06-2017 End: 09-06-2017 Appointment Appointment [facility] Work Phone: Start: 03-14-2017 End: 03-15-2017 *Hepatic Function Panel *Hepatic Function Panel [facility] Work Phone: Start: 03-14-2017 End: 03-15-2017 Lipid panel [AGGREGATE] *Lipid Profile CC PCP [facility] Work Phone: Start: 03-07-2017 End: 03-07-2017 Follow Up Appt 6 months Follow Up Appt 6 months [facility] Work Phone: Start: 03-07-2017 End: [...] 6 months Follow Up Appt 6 months [facility] Work Phone: Start: 03-08-2016 End: 03-08-2016 MMM MMM [facility] Work Phone: Start: 01-27-2016 End: 01-27-2016 Xtr mobile cv telemetry w/i&report 30 days 30 Day Holter Monitor [facility] Work Phone: Start: 08-06-2015 End: 08-06-2015 Follow Up Appt 6 months Follow Up Appt 6 months [facility] Work Phone: Start: 08-06-2015 End: 08-06-2015 PFM PFM [facility] Work Phone: Start: 02-03-2015 End: 02-03-2015 Follow Up Appt 6 months Follow Up Appt 6 months [facility] Work Phone: Start: 02-03-2015 End: 02-03-2015 Follow Up Appt Other Follow Up Appt Other [facility] Work Phone: Start: 02-03-2015 End: 02-03-2015 MMM MMM [facility] Work Phone: Start: 07-25-2014 End: 07-25-2014 Ecg routine ecg w/least 12 lds w/i&r EKG (In office) [facility] Work Phone: Start: 07-25-2014 End: 07-25-2014 Follow Up Appt 6 months Follow Up Appt 6 months [facility] Work Phone: Start: 07-25-2014 End: 07-25-2014 PFM PFM [facility] Work Phone: Start: 10-11-2003 BONE DENSITY BONE DENSITY [facility] Start: 1957 Urine microalbumin profile DTAP,TDAP,TD (1 - Tdap) [facility] Start: 1956 Hepatitis B surface antibody level LDL CHOLESTEROL [facility] Start: 1948 3 comp foot exam completed DIABETIC FOOT EXAM [facility] Start: 1948 Hepatitis B screening URINE ALBUMIN:CREATININE RATIO [facility] Start: 1948 Hepatitis C antibody , confirmatory test DILATED RETINAL EXAM [facility] Start: 10-11-1943 Hemoglobin A1c/Hemoglobin.total in Blood HBA1C [facility] End: 06-05-2023 Mri brain brain stem w/o contrast material MRI BRAIN WO IVCON Radiology Routine Convulsions, unspecified convulsion type (HCC) 1 Occurrences starting 05/06/2022 until 06/05/2023 [facility] Work Phone: Comment on above: 1 Occurrences starti ng 05/06/2022 until 06/05/2023 OUTSIDE VENDOR CARDI AC OUTPATIENT EVENT RECORDER OUTSIDE VENDOR CARDIAC OUTPATIENT EVENT RECORDER Holter Routine Syncope and collapse Ordered: 05/06/2022 [facility] Work Phone: Comment on above: Ordered: 05/06/2022 [facility] Immunizations Immunization Date Immunization Notes Care Provider [facility] 02-17-2021 pneumococcal polysaccharide vaccine, 23 valent Beka Fermin MD Work Phone: [facility] 02-02-2021 influenza, seasonal, injectable, preservative free Beka Fermin MD Work Phone: [facility] 07-31-2020 COVID-19 vaccine, fu ll dose (MODERNA) Beka Fermin MD Work Phone: [facility] 07-10-2020 COVID-19 vaccine, fu ll dose (MODERNA) Beka Fermin MD Work Phone: [facility] 06-12-2020 COVID-19 vaccine, fu ll dose (MODERNA) Beka Fermin MD Work Phone: [facility] 02-13-2020 zoster vaccine recombinant Beka Fermin MD Work Phone: [facility] 02-01-2020 influenza, injectabl e, quadrivalent, preservative free Beka Fermin MD Work Phone: [facility] 01-17-2020 influenza, high dose seasonal, preservative-free Beka Fermin MD Work Phone: [facility] 11-06-2019 pneumococcal conjuga te vaccine, 13 valent Beka Fermin MD Work Phone: [facility] 11-06-2019 zoster vaccine recombinant Beka Fermin MD Work Phone: [facility] 02-13-2019 influenza, injectabl e, quadrivalent, preservative free Beka Fermin MD Work Phone: [facility] 02-28-2018 influenza, seasonal, injectable Beka Fermin MD Work Phone: [facility] 03-22-2017 pneumococcal conjuga te vaccine, 13 valent Beka Fermin MD Work Phone: [facility] 02-24-2017 influenza, seasonal, injectable Beka Fermin MD Work Phone: [facility] 02-13-2015 influenza, seasonal, injectable, preservative free Beka Fermin MD Work Phone: [facility] 08-30-2014 pneumococcal polysaccharide vaccine, 23 valent Beka Fermin MD Work Phone: [facility] Payers Date Payer Category Payer Unknown [employer] [id number] 2015-Present [phone] [address] [place] [address] Indemnity [id number] 2015 Unknown [employer] [id number] 2015-Present [phone] [address] [place] [address] Indemnity [id number] 2015 Unknown [id number] 2003 Medicare MEDICARE MEDICAR E A AND B [id number] 2003-Present [phone] [address] [address] [place] [address] Medicare [id number] 2003 Medicare MEDICARE MEDICAR E A AND B [id number] 2003-Present [phone] [place] [address] Medicare [id number] 2003 Medicare [id number] Social History Date Type Detail Facility Start: 07-29-2015 End: 05-05-2022 Tobacco smoking status NHIS Never smoked tobacco [facility] Start: 07-29-2015 End: 05-05-2022 Tobacco use and exposure Smokeless tobacco non-user [facility] Start: 06-15-2021 End: 07-19-2022 Alcohol intake Not Asked [facility] Start: 1940 Sex Assigned At Not on file [facility] Start: 07-24-2021 End: 09-17-2021 Exposure to SARS-CoV-2 (event) Not sure [facility] Start: 05-06-2022 History SDOH Financial 4 [facility] Start: 05-06-2022 History SDOH Food Worry 1 [facility] Start: 05-06-2022 History SDOH Transpo rt Med 2 [facility] Clinical Notes 08-14-2021 to 09-08-2022 Telephone Encounter [...] at this time. documented in this encounter [facility] 08-11-2022 Miscellaneous Notes Spoke with Lia Ann [...] Oneal RN OUTSIDE LAB REPORT FACILITY NAME [facility] PHONE/FAX [phone] COLLECTION DATE AND TIME: 08/05/22 0525 Uploaded to [employer] documented in this encounter [facility] 08-06-2022 Miscellaneous Notes Noted Hardy Oneal RN General call : Full name of person calling: Karol Ann CNP Relationship to patient: [facility] Phone # : [phone] Reason for call: Per request of Hardy [place], RN, Lamictal level was drawn today. Results are expected in 3 - 5 days. Fax number was given. Patient of Dr. Hughes documented in this encounter [facility] 08-04-2022 Miscellaneous Notes I spoke with Lia. We discussed patient having LTG level drawn tomorrow a.m. Reviewed trough level instructions. She will call office with results. Hardy Oneal RN Called and spoke with Lia Ann CNP at [place]. This is what happened: Pt had not [...] morning. You can call Lia ross at [phone]- cell phone. I am going to call [facility] for information to give to you for a better assessment. Coco Saha LPN [facility] calling to notify office that pt had a seizure. Please contact her CIVIL RIGHTS INVESTIGATOR below. Anca Ann NP [phone] documented in this encounter [facility] 07-30-2022 Miscellaneous Notes Called Anca ross and let her know that [facility] saw patient in hospital for pericardial effusion and subsequent pericardial window. We did not order the lovenox 40 mg sub q daily that was on her DC list. We were on consultation. Anca will reach out to her medical unit secretary to further review. Tri Beltran APRN.RADHIKA CROW March @ [facility] called & left voice message asking for the end date for the Lovenox injections for Isabelle. Anca would like a call back @ [phone]. Catalina Hebert LPN documented in this encounter [facility] 07-29-2022 Miscellaneous Notes Patient was discharged from [facility] 07-28-22 with an order to schedule with the [facility]. However, the patient was then immediately admitted to a snf facility. A letter was mailed to the patient asking them to contact the Clinic upon discharge from the facility. documented in this encounter [facility] 07-28-2022 Note HNO ID: [id number] Author: Keri Petit RN Service: Nursing Author Type: Registered Nurse Type: Nursing Progress Note Filed: 07/28/2022 12:37 PM Note Text: Report called to SHANTE Burns at [facility] for 1300 DC. [facility] 07-28-2022 Note [facility] [facility] 07-26-2022 Note [facility] [place] 07-25-2022 Note [facility] [place] 07-25-2022 Note HNO ID: [id number] Author: Interface Note Service: ? Author Type: ? Type: Progress Notes Filed: 07/25/2022 3:06 AM Note Text: Epic Scheduled Downtime: 07/25/2022 12:30:16 AM to 07/25/2022 1:50:00 AM [facility] 07-24-2022 Note [facility] 07-24-2022 Miscellaneous Notes JV, Please sign the orders for Isabelle Medrano (f/u CXR in 6 weeks) The patient will also need a follow up with our office afterwards. Thank you! Lizzy Henry APRN.CNP July 24, 2022 11:10 AM documented in this encounter [facility] 07-24-2022 Note [facility] 07-24-2022 Note HNO ID: [id number] Author: Interface Note Service: ? Author Type: ? Type: Progress Notes Filed: 07/24/2022 4:22 AM Note Text: Epic Scheduled Downtime: 07/24/2022 12:00:37 AM to 07/24/2022 4:09:02 AM [facility] 07-23-2022 Note [facility] 07-23-2022 Note [facility] 07[facility]23-2022 Note [facility] 07-22-2022 Note [facility] 07-22-2022 Note [facility] 07-22-2022 Note [facility] 07-21-2022 Note [facility] 07-21-2022 Note [facility] 07-21-2022 Note [facility] 07-20-2022 Note [facility] 07-20-2022 Note [facility] 07-20-2022 Note [facility] 07-19-2022 Note [facility] 07-19-2022 Note [facility] 07-19-2022 Note [facility] 07[facility]19-2022 Note [facility] 07-19-2022 Note [facility] 07-18-2022 Note [facility] 07-18-2022 Note [facility] 07-18-2022 Note [facility] 07-17-2022 Note [facility] 07-16-2022 History of Past i llness Narrative Problem Noted Date Resolved Date Pericardial effusion 07/16/2022 07/28/2022 documented as of this encounter (statuses as of 07/29/2022) [facility] History of Past illness Narrative* Problem Noted Date Resolved Date Pericardial effusion 07/16/2022 07/28/2022 documented as of this encounter (statuses as of 07/30/2022) [facility]03-03-2023 History of Past illness Narrative* Problem Noted Date Resolved Date Pericardial effusion 07/16/2022 07/28/2022 documented as of this encounter (statuses as of 08/04/2022) [facility]03-03-2023 History of Past illness Narrative* Problem Noted Date Resolved Date Pericardial effusion 07/16/2022 07/28/2022 documented as of this encounter (statuses as of 08/06/2022) [facility]-03[facility] History of Past illness Narrative* Problem Noted Date Resolved Date Pericardial effusion 07/16/2022 07/28/2022 documented as of this encounter (statuses as of 08/11/2022) [facility]03-03-2023 History of Past illness Narrative* Problem Noted Date Resolved Date Pericardial effusion 07/16/2022 07/28/2022 documented as of this encounter (statuses as of 09/09/2022) [facility]02-06-2023 Miscellaneous Notes* Telephone Encounter - Nahomy Dutta [...] appropriate Nahomy Dutta APRN.RADHIKA documented [facility]01-31-2023 Miscellaneous Notes* Telephone Encounter - Brittanie Lugo [...] to the pharmacy. Please call patient at: [phone]. Pt said she will run out once she starts taking 8 of the 25mg tablets everyday. Patient phones requesting refills as follows: Requested Prescriptions Pending Prescriptions Disp Refills lamoTRIgine (LAMICTAL) 100 mg tablet 180 tablet 1 Sig: Take 1 tablet by mouth once daily. Please review and advise. Meghan Avila documented in this encounterV[facility]01-25-2023 Miscellaneous Notes* Telephone Encounter - Lorena Murray - 06/09/2022 4:35 PM EST Records received; ED summary; Uploaded to [employer] documented in this encounterV[facility]01-25-2023 Miscellaneous Notes* Telephone Encounter - Lorena Murray - 06/09/2022 11:16 AM EST Images from the original note were not included. documented in this encounterV[facility]01-25-2023 Miscellaneous Notes* Telephone Encounter - Alden Hughes MD - 06/09/2022 10:16 AM ESTSummary: Phone call with Dr. Payan I was able to reach Dr. Payan, the patient's fundraising coordinator, today. He gave me a summary of [...] me on 06/16. - I provided the fundraising coordinator with my mobile phone for any further concerns. - He reported that there is no immediate harm (3% risk of thromboembolic events) in waiting to get the evaluation of seizures and falls before anticoagulation to ensure safety. - I will obtain records from [facility] of ED visits. documented in this encounterV[facility]01-24-2023 Miscellaneous Notes* Telephone Encounter - Alden Hughes MD - 06/08/2022 10:49 AM EST I was notified that the patient's fundraising coordinator, Dr. Beka Payan, was trying to reach me. I called his office ([phone]) and mobile phone ([phone]) and left him a message to call me back. In the meantime I called the patient and spoke to her and her . I also obtained permission to speak to her [id number], Anca, but I could not reach her [...] up on 06/16 appointment documented in this encounterVeter[facility]01-17-2023 Miscellaneous Notes* Telephone Encounter - Brittanie Lugo APRN.ENGAGEMENT LIAISON - 06/01/2022 4:34 PM EST Unclear if [...] he called 911. She was taken to [facility]. She was in Afib with high [...] spouse, Kit calling; would like call back; [phone]. * Telephone Encounter - Lorena Murray - 05/31/2022 11:43 AM EST Seizure activity: Name of Caller : Lia Patel for pt Relationship to patient: [id number] Contact phone number: [phone] pt contact Date of seizure: 05/28/22 Duration: 5 min Back to Baseline (Yes/No): no; having tremors, shaking Emergency treatment needed (Yes/No): no Patient of Dr. Hughes documented in this encounterV[facility]12-27-2022 Miscellaneous Notes* Telephone Encounter - Hardy Oneal [...] Dr. Hughes (hosp d/c) documented in this encounterVeter[facility]12-22-2022 [facility]12-21-2022 NoteHNO ID: [id number] Author: Ephraim Tate Jr., MD Service: ? Author Type: Physician Type: Progress Notes Filed: 05/05/2022 12:00 PM Note Text: ESTABLISHED PATIENT VISIT CHIEF COMPLAINT: Seizures (new complaint) HISTORY OF PRESENT ILLNESS: Isabelle Medrano is a 81 year old female, BMI 29.59 kg/m2 with a PMH significant for and per last neuro note by Mundo Rose ENGAGEMENT LIAISON on 01/21/22 (I last saw patient on [...] by 930AM. I have no records from [facility] where pt was evaluated for seizure. Just [...] taken to ER. In the ER at [facility] per family had ECG and CT [...] problems NECK:Negative for lumps, (more content not included)...[facility]12-21-2022 History of Present illness Narrative* Ephraim Tate [...] by 930AM. I have no records from [facility] where pt was evaluated for seizure. Just [...] taken to ER. In the ER at [facility] per family had ECG and CT [...] ASCORBIC ACID CR-TABS Maribell Arias PA-C 09-06-2016 [facility] ([id number]) cyanocobalamin (VITAMIN B-12) 1,000 mcg tab Vitamin B 12 VITAMIN B-12 1000 MCG TABS One tablet by mouth daily CYANOCOBALAMIN [id number] Coleen Erwin RN 07-23-2014 [facility] ([id number]) ketoconazole (NIZORAL) 2 % cream metFORMIN (GLUCOPHAGE) [...] occurred yesterday (x2). Per available paperwork from [facility] ER, they reported as panic attack. [...] then possible admission to the EMU at [facility]. Patient and her family have been made aware and request to transport patient to the ER. I discussed with ER staff at [facility] and they are aware of patient's [...] which included preparing to see the patient, [id number] patient care, completing clinical documentation, obtaining and/or reviewing separately obtained history, performing a medically appropriate examination, counseling and educating the pat ient/family/caregiver, communicating with other HCPs (not separately reported), independently interpreting results (not separately reported), and communicating results to the patient/family/caregiver. documented in this encounterVeter[facility]11-16-2022 Miscellaneous Notes* Telephone Encounter - Nan Gorman [...] advise. Nan Gorman MA documented in this encounterVeter[facility]09-12-2022 Miscellaneous Notes* Telephone Encounter - Krista Coreas [...] 400 it can cause symptoms at times. [place] treatment would be through the under the tongue method (may be labeled as lozenge, sublingual, or SL) and take the smallest amount you can find (typically 500mcg-1,000mcg) as this usually will raise the vitamin B12 level up quite a bit due to better absorption. documented in this encounterVeterans Health Administration09-08-2022 NoteHNO ID: [id number] Author: Maribel Rose APRN.CNP Service: ? Author Type: Nurse Practitioner Type: Progress Notes Filed: 01/21/2022 12:58 PM Note Text: [facility] [place] Follow-up Visit Follow-up note January 21, 2022 [...] reports that 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 and will do so when she [...] Words, up to 2 trials: Face, Velvet, Orthodox, Jesus, Red (no points) 5/5 first try, [...] 1 error) (05/16) Serial subtraction by 7: [id number] (3 points for correct 4 or 5; 2 points for 2 or 3 correct; 1 point for 1 correct) [id number] (07/16) Language: repeat: I only know that [...] (/2) Delayed recall: recall words: face, velvet, jew, jesus, red (0-5) (2/5) Orientation: date(1), month(1), [...] ASCORBIC ACID CR-TABS Maribell Arias PA-C 09-06-2016 [facility] ([id number]) cyanocobalamin (VITAMIN B-12) 1,000 mcg tab Vitamin B 12 VITAMIN B-12 1000 MCG TABS One tablet by mouth daily CYANOCOBALAMIN [id number] Coleen Erwin RN 07-23-2014 [facility] ([id number]) ketoconazole (NIZORAL) 2 % cream metFORMIN (GLUCOPHAGE) 500 mg tablet lisinopril (ZESTRIL, PRINIVIL) 20 mg tablet Take 20 mg by mouth once daily. cholecalciferol (VITAMIN D3) 1,000 unit tab tablet Take 1,000 Units b (more content not included)...[facility]09-08-2022 History of Present illness Narrative* Maribel Rose, LAST CODE STRIPER.ENGAGEMENT LIAISON - 01/21/2022 11:30 AM EDT Images from the original note were not included. [facility] [place] Follow-up Visit Follow-up note January 21, 2022 [...] reports that 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 and will do so when she [...] Words, up to 2 trials: Face, Velvet, Orthodox, Jesus, Red (no points) 5/5 first try, [...] 1 error) (05/16) Serial subtraction by 7: [id number] (3 points for correct 4 or 5; 2 points for 2 or 3 correct; 1 point for 1 correct) [id number] (07/16) Language: repeat: I only know that [...] (06/17) Delayed recall: recall words: face, velvet, jew, jesus, red (0-5) (06/20) Orientation: date(1), month(1), [...] ASCORBIC ACID CR-TABS Maribell Arias PA-C 09-06-2016 [facility] ([id number]) cyanocobalamin (VITAMIN B-12) 1,000 mcg tab Vitamin B 12 VITAMIN B-12 1000 MCG TABS One tablet by mouth daily CYANOCOBALAMIN [id number] Coleen Erwin RN 07-23-2014 [facility] ([id number]) ketoconazole (NIZORAL) 2 % cream metFORMIN (GLUCOPHAGE) [...] Units 07/29/2015 Sm Antibody <1.0 AI <0.2 LENS EDGE GRINDER MACHINE Antibody <1.0 AI <0.2 SSA Antibody <1.0 AI 0.4 SSB Antibody <1.0 AI <0.2 Centromere Ab <1.0 AI <0.2 Scleroderma Ab, IgG <1.0 AI <0.2 Tonie 1 Antibody <1.0 AI <0.2 Ribosomal LENS EDGE GRINDER MACHINE <1.0 AI <0.2 Chromatin Antibody <1.0 AI <0.2 MPA IgG, Serum 717 - 1,411 mg/dL 849 MPA IgA, Serum 78 - 391 mg/dL 208 MPA IgM, Serum 53 - 334 mg/dL 32 (L) MPA [place], Serum 534 - 1,267 mg/dL 700 MPA Lambda, Serum 253 - 653 mg/dL 336 MPA [place]/Lambda Ratio 1 - 3 2.08 MPA Result No M protein is identified. No M protein is identified. Staff Review ([facility]) Reviewed by Jordan Kerr MD ([id number]) Result ([facility]) No M protein is identified. No M protein is identified. Staff Review ([facility]) Reviewed by Jordan Kerr MD ([id number]) Vitamin B12 221 - 700 pg/mL 478 [...] which included preparing to see the patient, [id number] patient care, completing clinical documentation, obtaining and/or reviewing separately obtained history, performing a medically appropriate examination, counseling and educating the pat ient/family/caregiver, and ordering medications, tests, or procedures. documented in this encounterVeterans Health Administration08-12-2022 Miscellaneous Notes* Telephone Encounter - Rupali Ruvalcaba [...] reports that 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 and will do so when she [...] Will reschedule after appointment today. Maribel Rose APRN.ENGAGEMENT LIAISON documented in this encounterVeterans Health Administration05-19-2022 Miscellaneous Notes* Telephone Encounter - Clary Iraheta - 10/01/2021 11:02 AM EDT Pharmacy verified in [employer]. Patient has been identified by name and [...] 84.8 kg (187 lb) Please advise. Clary rIaheta documented in this encounterVeterans Health Administration05-05-2022 NoteHNO ID: [id number] Author: Maribel Rose APRN.CNP Service: ? Author Type: Nurse Practitioner Type: Progress Notes Filed: 09/17/2021 12:28 PM Note Text: [facility] [place] Follow-[facility] Follow-up note September 17, 2021 [...] ASCORBIC ACID CR-TABS Maribell Arias PA-C 09-06-2016 [facility] ([id number]) - cyanocobalamin (VITAMIN B-12) 1,000 mcg tab Vitamin B 12 VITAMIN B-12 1000 MCG TABS One tablet by mouth daily CYANOCOBALAMIN [id number] Coleen Erwin RN 07-23-2014 [facility] ([id number]) - ketoconazole (NIZORAL) 2 % cream - [...] hearing Physical Exam: 09/17/21 (more content not included)...[facility]05-05-2022 Instructions* Patient Instructions* Maribel Rose APRN.CNP - 09/17/2021 11:[address] Fermin (wildland fire operations specialist/pain management) [facility] at [phone]. Alpha Lipoic Acid 600mg daily documented in this encounterVeterans Health Administration05-05-2022 History of Present illness Narrative* Maribel Rose APRN.CNP - 09/17/2021 11:30 AM EDT Images from the original note were not included. [facility] [place] Follow-[facility] Follow-up note September 17, 2021 [...] ASCORBIC ACID CR-TABS Maribell Arias PA-C 09-06-2016 [facility] ([id number]) cyanocobalamin (VITAMIN B-12) 1,000 mcg tab Vitamin B 12 VITAMIN B-12 1000 MCG TABS One tablet by mouth daily CYANOCOBALAMIN [id number] Coleen Erwin RN 07-23-2014 [facility] ([id number]) ketoconazole (NIZORAL) 2 % cream metFORMIN (GLUCOPHAGE) [...] Units 07/29/2015 Sm Antibody <1.0 AI <0.2 LENS EDGE GRINDER MACHINE Antibody <1.0 AI <0.2 SSA Antibody <1.0 AI 0.4 SSB Antibody <1.0 AI <0.2 Centromere Ab <1.0 AI <0.2 Scleroderma Ab, IgG <1.0 AI <0.2 Tonie 1 Antibody <1.0 AI <0.2 Ribosomal LENS EDGE GRINDER MACHINE <1.0 AI <0.2 Chromatin Antibody <1.0 AI <0.2 MPA IgG, Serum 717 - 1,411 mg/dL 849 MPA IgA, Serum 78 - 391 mg/dL 208 MPA IgM, Serum 53 - 334 mg/dL 32 (L) MPA [place], Serum 534 - 1,267 mg/dL 700 MPA Lambda, Serum 253 - 653 mg/dL 336 MPA [place]/Lambda Ratio 1 - 3 2.08 MPA Result No M protein is identified. No M protein is identified. Staff Review (MPA) Reviewed by Jordan Kerr MD ([id number]) Result ([facility]) No M protein is identified. No M protein is identified. Staff Review (UMPA) Reviewed by Jordan Kerr MD ([id number]) Vitamin B12 221 - 700 pg/mL 478 [...] reports that 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 and will do so when she [...] which included preparing to see the patient, [id number] patient care, completing clinical documentation, obtaining and/or reviewing separately obtained history, performing a medically appropriate examination, counseling and educating the pat ient/family/caregiver and ordering medications, tests, or procedures. PDMP website checked and validated. All prescriptions have been APPROPRIATELY filled. No suspiciousactivity was identified. September 17, 2021 Maribel Rose APRN.ENGAGEMENT LIAISON documented in this encounterVeterans Health Administration04-01-2022 Miscellaneous Notes* Telephone Encounter - Mabel Merino Ma - 08/14/2021 2:45 PM EDT Patient contacted via telephone regarding upcoming NEW patient appointment with Dr. Fermin on 08/17/21. Patient informed of the following: [facility] is the [facility] calling regarding your upcoming appointment with Dr. Fermin. To avoid a delay in your care, please bring any imaging (such as MRI, CT, XR, etc.) that have been done outside of the [facility] on a disk to be viewed [...] questions at this time. 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) [facility]* Diagnosis 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)- Primary Spinal stenosis of lumbar region, unspecified whether neurogenic claudication present Memory problem Memory loss documented in this encounter [facility]* Diagnosis Seizures (HCC)- Primary Other convulsions 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) Spinal stenosis of lumbar region, unspecified whether neurogenic claudication present Memory problem Memory loss [facility]* Diagnosis Cognitive changes- Primary Other signs and symptoms involving cognition Syncope and collapse [facility] encounter [facility]* Diagnosis Convulsions, unspecified convulsion type (HCC)- Primary [facility] Pleural effusion- Primary Unspecified pleural effusion documented [facility] this encounter [facility] Reason for Referral Specialty Diagnoses / Procedures Referred By Contac t Referred To Contact Neurology Diagnoses Cognitive changes Procedures CONSULT TO NEUROLOGY OFFICE/OUTPATIENT [facility] 60-74 MINUTES Alden Hughes MD [id number] [place] [address] Referral ID Status Reason Start Date Expiration Date Visits Requested Visits Authorized [id number] Authorized PCP Requested Referral 2 05/06/2023 1 1 Specialty Diagnoses / Procedures Referred By Contac t Referred To Contact MR IMAGING Diagnoses Convulsions, unspecified convulsion type (HCC) Procedures MRI BRAIN WO IVCON MRI BRAIN BRAIN STEM W/O CONTRAST MATERIAL Alden Hughes MD [id number] [place] [address] Mr Imaging Referral ID Status Reason Start Date Expiration Date Visits Requested Visits Authorized [id number] Authorized Auto-Generat ed Referral 2 06/05/2023 1 [...] or prosecute any alcohol or drug abuse patient.[facility] AdministrationIn the event this information is protected by the Federal Confidentiality of Alcohol and Drug Abuse Patient Records regulations: The Federal rules restrict any use of the information to criminally investigate or prosecute any alcohol or drug abuse patient.[facility] AdministrationIn the event this information is protected by the Federal Confidentiality of Alcohol and Drug Abuse Patient Records regulations: The Federal rules restrict any use of the information to criminally investigate or prosecute any alcohol or drug abuse patient.[facility] AdministrationIn the event this information is protected by the Federal Confidentiality of Alcohol and Drug Abuse Patient Records regulations: The Federal rules restrict any use of the information to criminally investigate or prosecute any alcohol or drug abuse patient.[facility] AdministrationIn the event this information is protected by the Federal Confidentiality of Alcohol and Drug Abuse Patient Records regulations: The Federal rules restrict any use of the information to criminally investigate or prosecute any alcohol or drug abuse patient.[facility] AdministrationIn the event this information is protected by the Federal Confidentiality of Alcohol and Drug Abuse Patient Records regulations: The Federal rules restrict any use of the information to criminally investigate or prosecute any alcohol or drug abuse patient.[facility] AdministrationIn the event this information is protected by the Federal Confidentiality of Alcohol and Drug Abuse Patient Records regulations: The Federal rules restrict any use of the information to criminally investigate or prosecute any alcohol or drug abuse patient.[facility] AdministrationIn the event this information is protected by the Federal Confidentiality of Alcohol and Drug Abuse Patient Records regulations: The Federal rules restrict any use of the information to criminally investigate or prosecute any alcohol or drug abuse patient.[facility] AdministrationIn the event this information is protected by the Federal Confidentiality of Alcohol and Drug Abuse Patient Records regulations: The Federal rules restrict any use of the information to criminally investigate or prosecute any alcohol or drug abuse patient.[facility] AdministrationIn the event this information is protected by the Federal Confidentiality of Alcohol and Drug Abuse Patient Records regulations: The Federal rules restrict any use of the information to criminally investigate or prosecute any alcohol or drug abuse patient.[facility] AdministrationIn the event this information is protected by the Federal Confidentiality of Alcohol and Drug Abuse Patient Records regulations: The Federal rules restrict any use of the information to criminally investigate or prosecute any alcohol or drug abuse patient.[facility] AdministrationIn the event this information is protected by the Federal Confidentiality of Alcohol and Drug Abuse Patient Records regulations: The Federal rules restrict any use of the information to criminally investigate or prosecute any alcohol or drug abuse patient.[facility] AdministrationIn the event this information is protected by the Federal Confidentiality of Alcohol and Drug Abuse Patient Records regulations: The Federal rules restrict any use of the information to criminally investigate or prosecute any alcohol or drug abuse patient.[facility] AdministrationIn the event this information is protected by the Federal Confidentiality of Alcohol and Drug Abuse Patient Records regulations: The Federal rules restrict any use of the information to criminally investigate or prosecute any alcohol or drug abuse patient.[facility] AdministrationIn the event this information is protected by the Federal Confidentiality of Alcohol and Drug Abuse Patient Records regulations: The Federal rules restrict any use of the information to criminally investigate or prosecute any alcohol or drug abuse patient.[facility] AdministrationIn the event this information is protected by the Federal Confidentiality of Alcohol and Drug Abuse Patient Records regulations: The Federal rules restrict any use of the information to criminally investigate or prosecute any alcohol or drug abuse patient.[facility] AdministrationIn the event this information is protected by the Federal Confidentiality of Alcohol and Drug Abuse Patient Records regulations: The Federal rules restrict any use of the information to criminally investigate or prosecute any alcohol or drug abuse patient.[facility] AdministrationIn the event this information is protected by the Federal Confidentiality of Alcohol and Drug Abuse Patient Records regulations: The Federal rules restrict any use of the information to criminally investigate or prosecute any alcohol or drug abuse patient.[facility] AdministrationIn the event this information is protected by the Federal Confidentiality of Alcohol and Drug Abuse Patient Records regulations: The Federal rules restrict any use of the information to criminally investigate or prosecute any alcohol or drug abuse patient.[facility] AdministrationIn the event this information is protected by the Federal Confidentiality of Alcohol and Drug Abuse Patient Records regulations: The Federal rules restrict any use of the information to criminally investigate or prosecute any alcohol or drug abuse patient.[facility] AdministrationIn the event this information is protected by the Federal Confidentiality of Alcohol and Drug Abuse Patient Records regulations: The Federal rules restrict any use of the information to criminally investigate or prosecute any alcohol or drug abuse patient.[facility] AdministrationIn the event this information is protected by the Federal Confidentiality of Alcohol and Drug Abuse Patient Records regulations: The Federal rules restrict any use of the information to criminally investigate or prosecute any alcohol or drug abuse patient.[facility] Health AdministrationIn the event this information is protected by the Federal Confidentiality of Alcohol and Drug Abuse Patient Records regulations: The Federal rules restrict any use of the information to criminally investigate or prosecute any alcohol or drug abuse patient.[facility] AdministrationIn the event this information is protected by the Federal Confidentiality of Alcohol and Drug Abuse Patient Records regulations: The Federal rules restrict any use of the information to criminally investigate or prosecute any alcohol or drug abuse patient.[facility] AdministrationIn the event this information is protected by the Federal Confidentiality of Alcohol and Drug Abuse Patient Records regulations: The Federal rules restrict any use of the information to criminally investigate or prosecute any alcohol or drug abuse patient.[facility] Reason for Visit (unrecogniz ed section and content) Reason Comments Future Appointment Reason Comments Established NI Patient 3 month follow up Neuropathy Reason Comments Refill Request Reason Comments Recheck Reason Comments Results Reason Comments ER F/U [facility] follow up seizure Reason Comments Medication Concern Rash Reason Comments Seizures Reason Comments Returning Patient's Call Patient Update Reason Comments Patient Update Returning cardiologi st call Reason Comments Request Outside Medical Records [facility] Reason Comments Received Outside Medical Records [facility] Reason Onset Date Comments Orders 07/24/2022 Reason Comments Orders [facility] order contact/SN F letter Reason Comments Patient Question Reason Comments Patient Update Reason Comments Other Call [facility] about Lamictal level being drawn Reason Comments Outside Labs Results [place]/Lamictal Reason Comments Orders [facility] - order conta ct/deferral Care Teams (unrecognized sec tion and content) Flattening Press Operator Relationship Specialty Start Date End Date Zachary Kim MD [address] [place] [address] PCP - General Internal Medicine 02/23/16 Flattening Press Operator Relationship Specialty Start Date End Date Zachary Kim MD [address] [place] [address] PCP - General Internal Medicine 02/23/16 Flattening Press Operator Relationship Specialty Start Date End Date Zachary Kim MD [address] [place] [address] PCP - General Internal Medicine 02/23/16 Flattening Press Operator Relationship Specialty Start Date End Date Zachary Kim MD [address] [place] [address] PCP - General Internal Medicine 02/23/16 Flattening Press Operator Relationship Specialty Start Date End Date Zachary Kim MD [address] [place] [address] PCP - General Internal Medicine 02/23/16 Flattening Press Operator Relationship Specialty Start Date End Date Zachary Kim MD [address] [place] [address] PCP - General Internal Medicine 02/23/16 Flattening Press Operator Relationship Specialty Start Date End Date Zachary Kim MD [address] [place] [address] PCP - General Internal Medicine 02/23/16 Flattening Press Operator Relationship Specialty Start Date End Date Zachary Kim MD [address] [place] [address] PCP - General Internal Medicine 02/23/16 Flattening Press Operator Relationship Specialty Start Date End Date Zachary Kim MD [address] [place] [address] PCP - General Internal Medicine 02/23/16 Flattening Press Operator Relationship Specialty Start Date End Date Zachary Kim MD [address] [place] [address] PCP - General Internal Medicine 02/23/16 Flattening Press Operator Relationship Specialty Start Date End Date Zachary Kim MD [address] [facility] [place] [address] PCP - General Internal Medicine 02/23/16 Flattening Press Operator Relationship Specialty Start Date End Date Zachary Kim MD [address] [facility] [address] PCP - General Internal Medicine 02/23/16 Flattening Press Operator Relationship Specialty Start Date End Date Zachary Kim MD [address] [facility] [address] [place] [address] PCP - General Internal Medicine 02/23/16 INFORMATION SOURCE (unrecogn ized section and content) DATE CREATED AUTHOR 08/14/2022 [facility] DATE CREATED AUTHOR AUTHOR'S MARIIA ATCLAIRE 09/10/2022 [facility] FOR RECORDS PERTAINING TO PATIENTS WHO [...] BE BASED ON THE PRIMARY CLINICAL RECORDS. [employer] provides no warranty or guarantee of the accuracy or completeness of information in this document.
[2024-03-08 22:53] VITALS: BP 107/76; PULSE 92; RESP 16; O2SAT 93
--- NOTE | 2024-03-08 22:53 | ED.RN ---
Patient took off her NC and was yelling at staff because the patient is confused and stating, you have the wrong patient, I am not supposed to be here, I want to leave. This RN explained the importance of the supplemental oxygen and the reason for the patient being at the ED. The patient denies any pain and denies the need for supplemental oxygen. The patient started to hit and yell at this RN stating I do not need to be here, you have the wrong patient, I am Isabelle Puntel and I am not supposed to be here, you are not going to put that thing on my face, and you need to get me out of here right now. No MD signed up for the patient at this time, MD will be made aware when an MD signs up to the case.
--- NOTE | 2024-03-08 23:33 | EDS_ITS ---
HPI HPI - GI History of Present Illness Chief Complaint: Abd Pain Informant: patient Limited: dementia Abdominal Pain/Flank Pain Onset: Today Context: Gradual Onset Timing: Continuous Location: Diffuse Nausea/Vomiting/Emesis GI Symptom: Negative for Nausea or Vomiting Diarrhea/Melena/Hematochezia GI Symptom: Negative for Diarrhea Narrative Narrative: The patient presents with abdominal pain that became worse again today. Patient had recent PEG tube placed. Patient was seen here in the emergency department recently and the PEG tube flushed easily. group home staff reports patient has been complaining of increasing pain in her abdomen. The patient has a history of dementia and is a very poor informant. Patient denies any nausea or vomiting. Patient denies any diarrhea. [facility] Medical History Mitral regurgitation Aortic valve stenosis with insufficiency Atrial fibrillation Preoperative cardiovascular examination Congestive heart failure (CHF) Dementia Parkinson's disease Rotator cuff tear arthropathy of left shoulder Tremor Cardiomyopathy Aortic stenosis Pericardial effusion Anxiety Depression Hypertension Diabetic neuropathy Acute systolic congestive heart failure Debility Pleural effusion due to CHF (congestive heart failure) Cellulitis of chest wall H/O cardiac murmur Depression Diabetic polyneuropathy Diabetes mellitus Chronic constipation Vitamin D deficiency Hypertension Inability to ambulate due to knee Debility Acute postoperative pain of right knee Wears glasses History of steroid therapy Diabetes Ambulates with cane Arthritis Back pain Injury of back Injury of head and neck Epilepsy Dietary restriction Former smoker Chronic cough Neuropathy History of pain when walking History of stress test History of echocardiogram Cardiology follow-up encounter History of atrial fibrillation Hx of vaginal delivery Hx of back injury Atherosclerotic heart disease of [place] coronary artery without angina pectoris Abnormal stress test History of left heart catheterization (LHC) (~06/02/22) Essential hypertension 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 Neuropathy, diabetic Nephrolithiasis Hypertension DM2 (diabetes mellitus, type 2) Paroxysmal atrial fibrillation Home Medications ?Medication ?Instructions ?Recorded ?Last Taken ?Type diltiazem HCl 120 mg 120 mg PO DINNER heart 05/23/23 07/21/23 History capsule,extended release 24 hr (Cartia XT) divalproex 250 mg tablet,delayed 250 mg PO BID #60 tabs 01/19/24 Unknown Rx release IV with Additives 20 mls/hr GT 03/03/24 Unknown Rx acetaminophen 325 mg tablet 650 mg (2 x 325 mg) G-tube Q6H PRN 03/03/24 Unknown Rx PRN Pain 1-10 Or Fever >100.7 #0 tabs donepezil 10 mg tablet 10 mg G-tube QHS #0 tabs 03/03/24 Unknown Rx lamotrigine 100 mg tablet 300 mg (3 x 100 mg) G-tube BID #0 03/03/24 Unknown Rx tabs losartan 25 mg tablet 25 mg G-tube QHS #0 tabs 03/03/24 Unknown Rx metoclopramide HCl 5 mg tablet 5 mg G-tube Q6H #0 tabs 03/03/24 Unknown Rx metoprolol tartrate 25 mg tablet 12.5 mg (1/2 x 25 mg) feeding tube 03/03/24 Unknown Rx BID #1 TAB ondansetron 4 mg disintegrating 4 mg feeding tube Q8H #1 TAB 03/03/24 Unknown Rx tablet paroxetine HCl 10 mg/5 mL oral 10 mg (5 mL) feeding tube DAILY 03/03/24 Unknown Rx suspension (Paxil) #250 mL pantoprazole 40 mg tablet,delayed 40 mg PO BID 03/08/24 Unknown History release (Protonix) cephalexin 250 mg/5 mL oral 500 mg (10 mL) PO Q6H 3 days #120 03/09/24 Unknown Rx suspension mL Allergy/AdvReac Type Severity Reaction Status Date / Time levetiracetam Allergy Other Verified 03/08/24 20:54 nickel Allergy Rash Verified 03/08/24 20:54 sulfamethoxazole (From Allergy Itching Verified 03/08/24 20:54 Bactrim) trimethoprim (From Bactrim) Allergy Itching Verified 03/08/24 20:54 codeine AdvReac Nausea Verified 03/08/24 20:54 milk AdvReac Nausea/Vom/ Verified 03/08/24 20:54 Diarrhea Family History Father No problems noted. Mother No problems noted. Family History unable to obtain Surgical History History of left hip hemiarthroplasty History of total right knee replacement (TKR) S/P total knee arthroplasty Hx of fusion of cervical spine Hx of cystoscopy Amputated toe of right foot History of hysterectomy History of tonsillectomy Deviated septum History of appendectomy History of cholecystectomy History of neck surgery Social History household members: spouse housing: intermediate Smoking Status: Former smoker alcohol intake: never substance use type: does not use caffeine: No what type of physical activity do you participate in: other details: physical therapy seatbelt use: always do you feel safe at home: Yes ROS ROS ED Review of Systems ROS Unobtainable: due to mental condition Cardiovascular Cardiovascular: Denies chest pain Respiratory/Chest Respiratory/Chest: Denies dyspnea Gastrointestinal Gastrointestinal: Reports abdominal pain; Denies nausea or vomiting EXAM Physical Exam Const Vital Signs: 03/08/24 20:54 03/08/24 22:53 03/09/24 00:00 Temperature 98.1 F Temperature Source Axillary Pulse Rate 82 92 96 Respiratory Rate 20 H 16 18 Blood Pressure 128/71 H 107/76 116/74 Blood Pressure Mean 90 86 88 Pulse Ox 92 93 94 Oxygen Delivery Method Nasal Cannula Room Air Room Air Oxygen Flow Rate (L/min) 2 03/09/24 02:00 03/09/24 04:00 Temperature Temperature Source Pulse Rate 87 87 Respiratory Rate 21 H 16 Blood Pressure 109/61 113/83 H Blood Pressure Mean 77 93 Pulse Ox 94 93 Oxygen Delivery Method Room Air Room Air Oxygen Flow Rate (L/min) Positive well nourished and well developed General Appearance ED: well developed and NAD HEENT Reports moist mucous membranes Neck supple and no JVD Resp normal respiratory effort and clear to auscultation bilaterally Cardio regular rate and regular rhythm GI non-tender and non-distended Palpation: soft Neuro CN's II-XII intact bilaterally, moves all extremities and no sensory deficits noted Neuro Narrative: Patient is awake, alert, oriented to person, place, and year. Patient is confused on the month. Patient does not know the president. Sensorium / Orientation: alert, oriented to person, oriented to place, orientation impaired and confused Motor Exam: strength 5/5 throughout Psych mental status grossly normal MDM MDM MDM Narrative Medical decision making narrative: Differential diagnosis includes bowel obstruction, perforation, gastrointestinal bleeding, anemia, ileus, pancreatitis, viral illness, and urinary tract infection. CT scan of the abdomen pelvis will be obtained to assess for bowel obstruction, perforation, and ileus. CBC will be obtained to assess for leukocytosis and anemia. Comprehensive metabolic profile will be obtained to assess for hepatic function, renal function, and electrolyte abnormality. Lipase will be obtained to assess for pancreatitis. Urinalysis will be obtained to assess for urinary tract infection and hematuria. Lab Data Attestation: I reviewed the patient's lab results. Lab results narrative: CBC was reviewed and was within normal limits. Comprehensive metabolic profile was reviewed and was within normal limits. Lipase was reviewed and was normal at 20. Urinalysis was reviewed. Leukocyte esterase was 100 with 10-25 white blood cells and 1+ bacteria. Occult blood was 150 with 10-25 red blood cells. Urine ketones were 150. Labs: Laboratory Results - last 24 hr 03/09/24 03/09/24 00:45 00:56 WBC 6.9 RBC 3.95 L Hgb 13.4 Hct 41.5 MCV 105.1 H MCH 33.9 H MCHC 32.3 RDW Std Deviation 51.4 H RDW Coeff of Robert 13.2 Plt Count 258 MPV 9.9 Immature Gran % (Auto) 0.400 Neut % (Auto) 72.8 H Lymph % (Auto) 14.8 L Garza % (Auto) 7.7 Eos % (Auto) 3.6 Baso % (Auto) 0.7 Absolute Neuts (auto) 5.0 Absolute Lymphs (auto) 1.02 Nucleated RBC % 0 Sodium 140 Potassium 3.7 Chloride 106 Carbon Dioxide 29.0 Anion Gap 6 BUN 9 Creatinine 0.55 Estim Creat Clear Calc 51.86 Est GFR (MDRD) Af Amer 134 Est GFR (MDRD) Non-Af 111 BUN/Creatinine Ratio 16.3 Glucose 91 Calcium 9.4 Total Bilirubin 0.40 AST 13 L ALT 17 Alkaline Phosphatase 143 H Total Protein 6.1 L Albumin 2.7 L Globulin 3.4 Albumin/Globulin Ratio 0.8 L Lipase 20 Urine Color Yellow Urine Clarity Sl. Cloudy Urine pH 6.0 Ur Specific [place] 1.025 Urine Protein 30 H Urine Glucose (UA) Normal Urine Ketones 150 A* Urine Occult Blood 150 H Urine Nitrite Negative Urine Bilirubin 1 H Urine Urobilinogen 8 H Ur Leukocyte Esterase 100 H Urine RBC 10-25 SEEN Urine WBC 10-25 SEEN Ur Squamous Epith Cells 0-5 SEEN Urine Bacteria 1+ Urine Mucus 4+ Radiography Diagnostic Testing: Clinical Impression(s) from Imaging Studies Abdomen/Pelvis CT 03/09/24 00:23 IMPRESSION: Fecal impaction. Sigmoid diverticulosis without diverticulitis. Electronically Signed: Suri Yung MD at 2:26 EDT , CT scan of the abdomen pelvis was obtained. There is constipation and possible fecal impaction. There is diverticulosis but no evidence of diverticulitis. There is no free air or free fluid. There is no evidence of obstruction. This was interpreted by the radiologist and was also independently reviewed by myself. Additional Tests and Interventions Additional Tests or Interventions: Urine culture was ordered. Treatment and Re-Evaluation :: Patient was advised of her findings. Patient was given a soapsuds enema here. Patient was given a prescription for Keflex. Patient was instructed to follow- up with her primary care physician in 5 to 7 days. Patient was instructed to return if worse in any way. Patient was agreeable with the plan. All questions were answered. Discharge Plan Triage Chief Complaint: Abd Pain ED Provider: Steve Hopkins Dx/Rx/DC Orders Clinical Impression: Constipation, Dementia, Abdominal pain, Urinary tract infection Instructions: ED Constipation (Adult) Prescriptions: New cephalexin 250 mg/5 mL suspension for reconstitution 500 mg PO Q6H 3 Days Qty: 120 0RF No Action diltiazem HCl [Cartia XT] 120 mg capsule,extended release 24hr 120 mg PO DINNER divalproex 250 mg tablet,delayed release (DR/EC) 250 mg PO BID Qty: 60 5RF pantoprazole [Protonix] 40 mg tablet,delayed release (DR/EC) 40 mg PO BID Patient Comments: through PEG tube acetaminophen 325 mg Tablet 650 mg G-tube Q6H PRN PRN (Reason: Pain 1-10 Or Fever >100.7) Qty: 0 0RF donepezil 10 mg Tablet 10 mg G-tube QHS Qty: 0 0RF metoclopramide HCl 5 mg Tablet 5 mg G-tube Q6H Qty: 0 0RF losartan 25 mg Tablet 25 mg G-tube QHS Qty: 0 0RF lamotrigine 100 mg Tablet 300 mg G-tube BID Qty: 0 0RF IV with Additives Jevity 1.5 1000 ML 20 mls/hr GT Increase as directed on admission paperwork Ordered By: Brijesh Chaney DO Last Taken: Unknown ondansetron 4 mg tablet,disintegrating 4 mg feeding tube Q8H Qty: 1 0RF metoprolol tartrate 25 mg tablet 12.5 mg feeding tube BID Qty: 1 0RF paroxetine HCl [Paxil] 10 mg/5 mL suspension 10 mg feeding tube DAILY Qty: 250 0RF Primary Care Provider: Nahomy Bettencourt Referrals: Nahomy Bettencourt MD [Primary Care Provider] - 5-7 Days Print Language: Greenlandic Disposition Disposition: Home, Self Care
--- NOTE | 2024-03-08 23:39 | ED.RN ---
This RN spoke to SHANTE [facility] about the condition and status on the patient. This RN was unable to get the patient's on the phone but Maicol confirmed the patient's has been notified.
[2024-03-09] VITALS: BP 116/74; PULSE 96; RESP 18; O2SAT 94
--- NOTE | 2024-03-09 00:23 | CT_ITS ---
STUDY: CT ABDOMEN AND PELVIS WITH CONTRAST - URINARY TRACT REASON FOR EXAM: Female, 83 years old. Abdominal pain RADIATION DOSAGE (If Supplied By Facility): CTDIvol = ( 21.82 ) mGy, DLP = ( 1515.33 ) mGycm TECHNIQUE: IV 100mL Isovue-300 was administered. Transaxial images were obtained from the dome of the diaphragm to the symphysis pubis in the arterial, nephrographic and excretory phases. Multiplanar coronal and sagittal images were reformatted. The protocol utilizes one or more of the following dose reduction techniques: automated exposure control, adjustment of mA and/or kV according to patient size,and/or use of iterative reconstruction technique. COMPARISON: CT Abdomen/PelvisOct 2023 12:40pm FINDINGS: Some bibasilar atelectasis. Cardiomegaly. There is an exophytic lesion of the posterior aspect of the right lobe of the liver measures 2 cm most likely a cyst. There is non-visualization of the gallbladder, which may be secondary to either contraction or a prior cholecystectomy. Normal spleen. Normal pancreas. Normal bilateral adrenal glands. Normal right kidney. Normal left kidney. PEG tube in good position. Normal small intestine. There are multiple colonic diverticula consistent with diverticulosis. Large amount of stool within the rectum possibly consistent with a fecal impaction. There is non-visualization of the appendix. Normal abdominal aorta. Normal inferior vena cava. Normal retroperitoneum. Normal urinary bladder. Normal abdominal wall. Chronic mild wedge compression fracture of L1. Degenerative disc disease throughout the lumbar spine. Status post left hip hemiarthroplasty which produces streak artifact and obscures the pelvis. CT/Abdomen/Pelvis W IV Cont ONLY IMPRESSION: Fecal impaction. Sigmoid diverticulosis without diverticulitis. Electronically Signed: Suri Yung MD at 2:26 EDT ,
[2024-03-09 01:05] LABS: Absolute Lymphocyte Count 1.02 X10^3/uL (0.83-4.51); Basophil# 0.05 X10^3/uL; Basophil% 0.7 % (0-1); Eosinophil# 0.25 X10^3/uL; Eosinophils% 3.6 % (0-5); Hematocrit 41.5 % (37-47); Hemoglobin 13.4 g/dL (12.0-15.0); Lymphocyte # 1.02 X10^3/ul (0.83-4.51); Lymphocyte % 14.8 % (19-41); Mean Corp Hgb Conc 32.3 g/dL (32-36); Mean Corpuscular Hgb 33.9 pg (27.0-32.0); Mean Corpuscular Volume 105.1 fL (81-99); Mean Platelet Vol. 9.9 fl (6.2-12.0); Monocyte# 0.53 X10^3/uL; Monocyte% 7.7 % (0-10); NRBC Flagged by Analyzer 0 % (0-5); Neutrophil # 5.01 X10^3/uL (2.7-7.7); Neutrophil % 72.8 % (47-70); Platelet Count 258 K/mm3 (150-450); RBC Distribution Width CV 13.2 % (11.6-14.6); RBC Distribution Width SD 51.4 fl (35.1-43.9); Red Blood Count 3.95 M/mm3 (4.2-5.4); White Blood Count 6.9 K/mm3 (4.4-11.0)
[2024-03-09 01:13] LABS: Color, Urine Yellow (Yellow); Glucose, Dipstick Normal (Normal); Leukocyte Esterase-Dipstick 100 /ul (Negative); Nitrite-Dipstick Negative (Negative); Occult Blood-Urine 150 /ul (Negative); Protein-Dipstick 30 mg/dl (Negative); Specific Gravity, Urine 1.025 (1.002-1.030); Urine Clarity Sl. Cloudy (Clear); Urine Urobilinogen 8 mg/dl (Normal)
[2024-03-09 01:19] LABS: Urine Bilirubin Dipstick 1 mg/dL (Negative)
[2024-03-09 01:20] LABS: Ketone-Dipstick 150 mg/dl (Negative)
[2024-03-09 01:23] LABS: Bacteria 1+ /hpf (None Seen); Mucous, Urine 4+ /hpf (<or=2+); Red Blood Cells-Urine 10-25 SEEN /hpf (0-5); Squamous Epithelial Cells - UA 0-5 SEEN /hpf (5-10); White Blood Cells 10-25 SEEN /hpf (0-5)
[2024-03-09 01:25] LABS: ALB/GLOB Ratio 0.8 RATIO (0.9-2.4); AST(SGOT) 13 U/L (15-37); Alanine Aminotransfer ALT/SGPT 17 U/L (13-56); Albumin, Serum 2.7 g/dL (3.2-5.0); Alkaline Phosphatase 143 U/L (45-117); Anion Gap 6 (5-15); BUN 9 mg/dL (7-18); BUN/Creat Ratio 16.3 RATIO (10-20); Calcium,Total 9.4 mg/dL (8.5-10.1); Chloride 106 mmol/L (98-107); Creatinine, Serum 0.55 mg/dL (0.55-1.02); EST Glomerular Filtration Rate 111 mL/min (>60); Est Glom Filt Rate - Afr Amer 134 mL/min (>60); Estimated Creatinine Clearance 51.86 ml/min; Globulin 3.4 g/dL (2.2-4.2); Glucose 91 mg/dL (74-106); Lipase 20 U/L (13-75); Potassium 3.7 mmol/L (3.5-5.1); Protein, Total 6.1 g/dL (6.4-8.2); Sodium Level 140 mmol/L (136-145)
[2024-03-09 02:00] VITALS: BP 109/61; PULSE 87; RESP 21; O2SAT 94
[2024-03-09] MEDS: Ceftriaxone 1 GM/50 ML BAG IV (02:51)
[2024-03-09 04:00] VITALS: BP 113/83; PULSE 87; RESP 16; O2SAT 93
[2024-03-09 06:00] VITALS: BP 122/76; PULSE 96; RESP 18; O2SAT 96
[2024-03-09 06:20] VITALS: BP 122/76; PULSE 99; RESP 18; TEMP 36.8; O2SAT 96
== END 2024-03-09 07:50 | disposition home or self-care (01) ==
PROVIDERS: Emergency Provider Emergency Medicine; PCP Family Medicine; Visit Provider Emergency Medicine
DX: K59.00 Constipation, unspecified (principal); Z93.1 Gastrostomy status; G20.A1 Parkinson's disease without dyskinesia, without mention of fluctuations; I11.0 Hypertensive heart disease with heart failure; I50.9 Heart failure, unspecified; F02.80 Dementia in other diseases classified elsewhere, unspecified severity, without behavioral disturbance, psychotic disturbance, mood disturbance, and anxiety; N39.0 Urinary tract infection, site not specified; I25.10 Atherosclerotic heart disease of native coronary artery without angina pectoris; Z79.899 Other long term (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; Z87.891 Personal history of nicotine dependence
CPT/HCPCS: 74177; 80053; 81001; 83690; 85025; 87086; 87088; 96360; 96365; 99285; J7040; Q9967; A4216

== ENCOUNTER 2024-03-13 21:46 | Emergency (ER) | payer MEDICARE, SELFPAY ==
[2024-03-13] VITALS (10 sets, daily range): BP systolic 88–119; BP diastolic 31–51; PULSE 40–47; RESP 14–27; TEMP 36.6; O2SAT 14–98; BMI 27.1
--- NOTE | 2024-03-13 22:32 | RAD_ITS ---
EXAM: XR ABDOMEN, 1 VIEW CLINICAL INDICATION: constipation TECHNIQUE: Frontal supine view of the abdomen/pelvis. COMPARISON: Abdomen exam 03/07/2024 FINDINGS: LOWER THORAX: No acute pathology. GASTROINTESTINAL TRACT: Moderate amount of stool in the colon. Non-obstructive. No bowel or stomach distention. ORGANS: Unremarkable as visualized. No organomegaly. No abnormal calcifications. BONES/JOINTS: Left hip arthroplasty. SOFT TISSUES: No acute pathology. TUBES, LINES AND DEVICES: Percutaneous gastrostomy tube. RAD/Abdomen Single View (Portable) IMPRESSION: Moderate amount of stool in the colon. Electronically Signed: Los Rodriguez MD at 23:08 EDT ,
[2024-03-13 22:34] LABS: Absolute Neutrophil Count 4.9 X10^3/uL (2.0-7.7); Basophil# 0.07 X10^3/uL; Eosinophils% 4.2 % (0-5); Hematocrit 42.8 % (37-47); Hemoglobin 13.2 g/dL (12.0-15.0); Lymphocyte % 19.7 % (19-41); Mean Corp Hgb Conc 30.8 g/dL (32-36); Mean Corpuscular Hgb 33.2 pg (27.0-32.0); Mean Corpuscular Volume 107.8 fL (81-99); Mean Platelet Vol. 9.4 fl (6.2-12.0); Monocyte% 5.6 % (0-10); NRBC Flagged by Analyzer 0 % (0-5); Neutrophil # 4.87 X10^3/uL (2.7-7.7); Neutrophil % 68.7 % (47-70); Platelet Count 316 K/mm3 (150-450); RBC Distribution Width CV 13.5 % (11.6-14.6); RBC Distribution Width SD 53.8 fl (35.1-43.9); Red Blood Count 3.97 M/mm3 (4.2-5.4); White Blood Count 7.1 K/mm3 (4.4-11.0)
[2024-03-13 22:53] LABS: AST(SGOT) 12 U/L (15-37); Alanine Aminotransfer ALT/SGPT 21 U/L (13-56); Albumin, Serum 2.9 g/dL (3.2-5.0); Alkaline Phosphatase 142 U/L (45-117); Anion Gap 4 (5-15); BUN 19 mg/dL (7-18); BUN/Creat Ratio 27.7 RATIO (10-20); Bilirubin, Direct 0.09 mg/dL (0.00-0.30); Calcium,Total 9.2 mg/dL (8.5-10.1); Chloride 106 mmol/L (98-107); Creatinine, Serum 0.69 mg/dL (0.55-1.02); EST Glomerular Filtration Rate 86 mL/min (>60); Est Glom Filt Rate - Afr Amer 104 mL/min (>60); Estimated Creatinine Clearance 57.38 ml/min; Globulin 2.9 g/dL (2.2-4.2); Glucose 129 mg/dL (74-106); Magnesium 2.6 mg/dL (1.6-2.6); Potassium 4.5 mmol/L (3.5-5.1); Protein, Total 5.8 g/dL (6.4-8.2); Sodium Level 141 mmol/L (136-145)
--- NOTE | 2024-03-13 23:50 | EX.ED.DYSGE1 ---
HPI History of Present Illness Chief Complaint: Abd Pain Informant: spouse/S.O. and SNF Narrative Narrative: Patient is an 83-year-old female with past medical history of persistent atrial fibrillation as well as dementia and debility. She was admitted to the hospital around March 04 secondary to altered mental status as well as pulling her PEG tube. At that time she underwent multiple tests including EGD and had her PEG tube replaced. She was then transferred back to the correction. detention has had her on oxycodone and Ativan according to the medication list. states he feels like her mental status has been depressed/altered since Tuesday. Reportedly the patient was crying out and complaining of abdominal pain and therefore was sent back to the hospital for reevaluation. Based on the patient's dementia she cannot offer any further history Chart review reveals that the patient was recently seen on March 09 for similar event and had a normal CT scan. [facility] Medical History Cystitis AMS (altered mental status) Mitral regurgitation Aortic valve stenosis with insufficiency Atrial fibrillation Preoperative cardiovascular examination Congestive heart failure (CHF) Dementia Parkinson's disease Rotator cuff tear arthropathy of left shoulder Tremor Cardiomyopathy Aortic stenosis Pericardial effusion Anxiety Depression Hypertension Diabetic neuropathy Acute systolic congestive heart failure Debility Pleural effusion due to CHF (congestive heart failure) Cellulitis of chest wall H/O cardiac murmur Depression Diabetic polyneuropathy Diabetes mellitus Chronic constipation Vitamin D deficiency Hypertension Inability to ambulate due to knee Debility Acute postoperative pain of right knee Wears glasses History of steroid therapy Diabetes Ambulates with cane Arthritis Back pain Injury of back Injury of head and neck Epilepsy Dietary restriction Former smoker Chronic cough Neuropathy History of pain when walking History of stress test History of echocardiogram Cardiology follow-up encounter History of atrial fibrillation Hx of vaginal delivery Hx of back injury Atherosclerotic heart disease of [place] coronary artery without angina pectoris Abnormal stress test History of left heart catheterization (LHC) (~06/02/22) Essential hypertension 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 Neuropathy, diabetic Nephrolithiasis Hypertension DM2 (diabetes mellitus, type 2) Paroxysmal atrial fibrillation Home Medications ?Medication ?Instructions ?Recorded ?Last Taken ?Type diltiazem HCl 120 mg 120 mg PO DINNER heart 05/23/23 07/21/23 History capsule,extended release 24 hr (Cartia XT) divalproex 250 mg tablet,delayed 250 mg PO BID #60 tabs 01/19/24 Unknown Rx release IV with Additives 20 mls/hr GT 03/03/24 Unknown Rx acetaminophen 325 mg tablet 650 mg (2 x 325 mg) G-tube Q6H PRN 03/03/24 Unknown Rx PRN Pain 1-10 Or Fever >100.7 #0 tabs donepezil 10 mg tablet 10 mg G-tube QHS #0 tabs 03/03/24 Unknown Rx lamotrigine 100 mg tablet 300 mg (3 x 100 mg) G-tube BID #0 03/03/24 Unknown Rx tabs losartan 25 mg tablet 25 mg G-tube QHS #0 tabs 03/03/24 Unknown Rx metoclopramide HCl 5 mg tablet 5 mg G-tube Q6H #0 tabs 03/03/24 Unknown Rx metoprolol tartrate 25 mg tablet 12.5 mg (1/2 x 25 mg) feeding tube 03/03/24 Unknown Rx BID #1 TAB ondansetron 4 mg disintegrating 4 mg feeding tube Q8H #1 TAB 03/03/24 Unknown Rx tablet paroxetine HCl 10 mg/5 mL oral 10 mg (5 mL) feeding tube DAILY 03/03/24 Unknown Rx suspension (Paxil) #250 mL pantoprazole 40 mg tablet,delayed 40 mg PO BID 03/08/24 Unknown History release (Protonix) cephalexin 250 mg/5 mL oral 500 mg (10 mL) PO Q6H 3 days #120 03/09/24 Unknown Rx suspension mL apixaban 2.5 mg tablet (Eliquis) 2.5 mg PO BID 03/13/24 Unknown History bisacodyl 10 mg rectal suppository 10 mg ND DAILY PRN consitpation 03/13/24 Unknown History duloxetine 30 mg capsule,delayed 1 PO QPM 03/13/24 Unknown History release hydroxyzine HCl 25 mg tablet 25 mg PO Q6H PRN anxiety 03/13/24 Unknown History lorazepam 1 mg tablet (Ativan) 0.5 mg PO Q8H PRN anxiety 03/13/24 Unknown History oxycodone 5 mg tablet 2.5 - 5 mg PO TID PRN PRN pain 03/13/24 Unknown History Allergy/AdvReac Type Severity Reaction Status Date / Time levetiracetam Allergy Other Verified 03/13/24 21:53 nickel Allergy Rash Verified 03/13/24 21:53 sulfamethoxazole (From Allergy Itching Verified 03/13/24 21:53 Bactrim) trimethoprim (From Bactrim) Allergy Itching Verified 03/13/24 21:53 codeine AdvReac Nausea Verified 03/13/24 21:53 milk AdvReac Nausea/Vom/ Verified 03/13/24 21:53 Diarrhea Family History Father No problems noted. Mother No problems noted. Family History unable to obtain Surgical History History of left hip hemiarthroplasty History of total right knee replacement (TKR) S/P total knee arthroplasty Hx of fusion of cervical spine Hx of cystoscopy Amputated toe of right foot History of hysterectomy History of tonsillectomy Deviated septum History of appendectomy History of cholecystectomy History of neck surgery Social History household members: spouse housing: correction Smoking Status: Former smoker alcohol intake: never substance use type: does not use caffeine: No what type of physical activity do you participate in: other details: physical therapy seatbelt use: always do you feel safe at home: Yes ROS ROS ED ROS Narrative Unable to obtain review of systems secondary to patient's history of dementia Review of Systems ROS Unobtainable: due to mental status EXAM Physical Exam Const Vital Signs: 03/13/24 21:47 03/13/24 22:07 03/13/24 22:15 Temperature 97.8 F Temperature Source Temporal Pulse Rate 45 L 43 L 40 L Respiratory Rate 20 H 19 H 18 Blood Pressure 119/40 L 98/50 L Blood Pressure Mean 66 65 Pulse Ox 93 76 98 Oxygen Delivery Method Room Air Oxygen Flow Rate (L/min) 03/13/24 22:30 03/13/24 22:45 03/13/24 22:59 Temperature Temperature Source Pulse Rate 43 L 43 L 43 L Respiratory Rate 27 H 16 15 Blood Pressure 105/45 L 104/31 L 111/34 L Blood Pressure Mean 64 52 59 Pulse Ox 97 14 Oxygen Delivery Method Room Air Oxygen Flow Rate (L/min) 03/13/24 23:00 03/13/24 23:15 03/13/24 23:30 Temperature Temperature Source Pulse Rate 47 L 47 L Respiratory Rate 23 H 14 Blood Pressure 111/34 L 100/34 L 88/46 L Blood Pressure Mean 57 55 58 Pulse Ox 87 98 Oxygen Delivery Method Nasal Cannula Room Air Oxygen Flow Rate (L/min) 3 03/13/24 23:45 03/14/24 00:00 03/14/24 00:15 Temperature Temperature Source Pulse Rate 43 L 51 L 49 L Respiratory Rate 16 14 13 Blood Pressure 111/51 L 113/50 L 142/33 H Blood Pressure Mean 69 67 62 Pulse Ox 95 91 97 Oxygen Delivery Method Room Air Room Air Nasal Cannula Oxygen Flow Rate (L/min) 2 03/14/24 00:30 03/14/24 00:32 03/14/24 01:00 Temperature Temperature Source Pulse Rate 35 L Respiratory Rate 16 Blood Pressure 99/54 L Blood Pressure Mean 115 69 Pulse Ox 99 98 98 Oxygen Delivery Method Nasal Cannula Oxygen Flow Rate (L/min) 2 03/14/24 02:00 Temperature Temperature Source Pulse Rate 62 Respiratory Rate 18 Blood Pressure 117/44 L Blood Pressure Mean 68 Pulse Ox 96 Oxygen Delivery Method Nasal Cannula Oxygen Flow Rate (L/min) Positive well nourished and well developed General Appearance ED: well developed; Negative for pallor HEENT Reports dry mucous membranes HEENT Narrative: Mucous membranes are dry and tacky No tongue or lip swelling no oral lesions no airway edema or compromise No secondary findings in the posterior pharynx to suggest infection Mouth ED: Yes dry mucous membranes Mouth: dry mucous membranes Eyes EOMs intact bilaterally Eyes Narrative: Pupils are pinpoint which correlate with correction providing oxycodone General Eye ED: Negative for scleral icterus Neck supple Neck Narrative: No nuchal rigidity or meningeal signs Chest Wall palpation of chest normal Resp normal respiratory effort and clear to auscultation bilaterally Resp Narrative: Breath sounds are diminished throughout but overall clear to auscultation without signs of respiratory distress Cardio Rate: bradycardia and other Other Details: Bradycardic rate with irregularly irregular rhythm consistent with her history of atrial fibrillation There is a grade 3 out of 6 holosystolic murmur noted GI GI Narrative: Abdomen is soft but slightly distended. Bowel sounds are hypoactive. No organomegaly is noted. No pulsatile mass or rigidity. No obvious pain with palpation. There is a PEG tube in place in the left mid upper abdomen with surrounding soft tissue clean dry and intact without secondary changes to suggest infection Auscultation: hypoactive bowel sounds Palpation: soft Extremity Extremity Narrative: +1 pitting edema to the bilateral lower extremities that is equal and symmetric Neuro Neuro Narrative: GCS of 11 Patient is obtunded but will localize pain and is protecting her airway. There is no obvious focal neurologic deficit. Sensorium / Orientation: lethargic Skin no rashes or lesions noted and No skin turgor normal Skin Narrative: Skin turgor is increased consistent with mild dehydration General Skin Exam: Negative for jaundice or pallor MDM MDM MDM Narrative Medical decision making narrative: Patient arrived to the ER bradycardic most likely related to medication to help control her atrial fibrillation. reported her mental status was different from the previous day and therefore this could be related to a potential infection such as colitis or diverticulitis it could be due to acute kidney injury severe electrolyte abnormality or hyperammonemia. With report of recurrent abdominal pain there is concern for constipation versus ileus versus small bowel obstruction. Therefore basic labs were obtained as well as a KUB. Labs revealed no leukocytosis or left shift. She had no signs of HAKAN or severe electrolyte abnormality. Liver enzymes and ammonia were normal going against hepatic encephalopathy/hyperammonemia. The x-ray revealed signs of constipation without obstruction or perforation. Therefore I feel that the patient's altered mental status is related to the persistent oxycodone and Ativan provided by the correction and the oxycodone is leading to slowing of the intestines which is leading to the persistent constipation/fecal impaction and the cause of her pain. At this time her vitals are stable her workup reveals no clinically significant findings and there is a reason for her recurrent symptoms as well as change in mental status based on the polypharmacy. As she has had recent CT scan of the abdomen and pelvis without signs of perforation obstruction or infection her labs do not reveal any clinically significant abnormalities and she has been admitted for workup of her altered mental status without obvious finding I do not feel there is need for further workup in the ER. The patient's symptoms are most likely a combination of her age, persistent medical conditions, and polypharmacy. But without signs of obstruction or infection or lab abnormality there is no need for readmission or further testing and she is otherwise safe for discharge Of note the patient's mental status did improve while in the ER which would correlate with the patient's medications of oxycodone and Ativan metabolizing through the body. When this happened she did speak without dysarthria or aphasia. However she did seem very anxious as well as complained of recurrent abdominal pain which correlates with the correction report. Therefore I do feel that the symptoms are related to polypharmacy as well as her dementia and need to be managed as an outpatient and not with readmission as they are chronic in nature History & Record Review Discussion w/independent historian: Significant other and Other (detention records) Lab Data Attestation: I reviewed the patient's lab results. Labs: Laboratory Results - last 24 hr 03/13/24 03/13/24 22:13 22:24 WBC 7.1 RBC 3.97 L Hgb 13.2 Hct 42.8 MCV 107.8 H MCH 33.2 H MCHC 30.8 L RDW Std Deviation 53.8 H RDW Coeff of Robert 13.5 Plt Count 316 MPV 9.4 Immature Gran % (Auto) 0.800 Neut % (Auto) 68.7 Lymph % (Auto) 19.7 Adams % (Auto) 5.6 Eos % (Auto) 4.2 Baso % (Auto) 1.0 Absolute Neuts (auto) 4.9 Absolute Lymphs (auto) 1.40 Nucleated RBC % 0 Sodium 141 Potassium 4.5 Chloride 106 Carbon Dioxide 30.0 Anion Gap 4 L BUN 19 H Creatinine 0.69 Estim Creat Clear Calc 57.38 Est GFR (MDRD) Af Amer 104 Est GFR (MDRD) Non-Af 86 BUN/Creatinine Ratio 27.7 H Glucose 129 H Calcium 9.2 Magnesium 2.6 Total Bilirubin 0.30 Direct Bilirubin 0.09 AST 12 L ALT 21 Alkaline Phosphatase 142 H Ammonia 21.0 Total Protein 5.8 L Albumin 2.9 L Globulin 2.9 Radiography Diagnostic Testing: Clinical Impression(s) from Imaging Studies KUB X-Ray 03/13/24 22:32 IMPRESSION: Moderate amount of stool in the colon. Electronically Signed: Los Rodriguez MD at 23:08 EDT , KUB as interpreted by the emergency medicine physician reveals a moderate amount of stool within the colon consistent with constipation without obstruction or perforation Discharge Plan Triage Chief Complaint: Abd Pain ED Provider: Dieter Mohan Dx/Rx/DC Orders Clinical Impression: Constipation, Abdominal pain, Atrial fibrillation, persistent, Anxiety, Dementia, Debility Instructions: ED Constipation (Adult) Prescriptions: No Action diltiazem HCl [Cartia XT] 120 mg capsule,extended release 24hr 120 mg PO DINNER divalproex 250 mg tablet,delayed release (DR/EC) 250 mg PO BID Qty: 60 5RF pantoprazole [Protonix] 40 mg tablet,delayed release (DR/EC) 40 mg PO BID Patient Comments: through PEG tube cephalexin 250 mg/5 mL suspension for reconstitution 500 mg PO Q6H 3 Days Qty: 120 0RF lorazepam [Ativan] 1 mg tablet 0.5 mg PO Q8H PRN (Reason: anxiety) bisacodyl 10 mg suppository 10 mg ND DAILY PRN (Reason: consitpation) duloxetine 30 mg capsule,delayed release(DR/EC) 1 PO QPM Eliquis 2.5 mg tablet 2.5 mg PO BID hydroxyzine HCl 25 mg tablet 25 mg PO Q6H PRN (Reason: anxiety) oxycodone 5 mg tablet 2.5 - 5 mg PO TID PRN PRN (Reason: pain) acetaminophen 325 mg Tablet 650 mg G-tube Q6H PRN PRN (Reason: Pain 1-10 Or Fever >100.7) Qty: 0 0RF donepezil 10 mg Tablet 10 mg G-tube QHS Qty: 0 0RF metoclopramide HCl 5 mg Tablet 5 mg G-tube Q6H Qty: 0 0RF losartan 25 mg Tablet 25 mg G-tube QHS Qty: 0 0RF lamotrigine 100 mg Tablet 300 mg G-tube BID Qty: 0 0RF IV with Additives Jevity 1.5 1000 ML 20 mls/hr GT Increase as directed on admission paperwork Ordered By: Brijesh Chaney DO Last Taken: Unknown ondansetron 4 mg tablet,disintegrating 4 mg feeding tube Q8H Qty: 1 0RF metoprolol tartrate 25 mg tablet 12.5 mg feeding tube BID Qty: 1 0RF paroxetine HCl [Paxil] 10 mg/5 mL suspension 10 mg feeding tube DAILY Qty: 250 0RF Primary Care Provider: Beka Painter Referrals: Beka Painter MD [Primary Care Provider] - Print Language: Estonian Disposition Disposition: Home, Self Care
[2024-03-14] VITALS (11 sets, daily range): BP systolic 99–142; BP diastolic 33–54; PULSE 35–62; RESP 13–18; TEMP 36.6; O2SAT 91–100
--- NOTE | 2024-03-14 00:05 | ED.RN ---
1204: UPDATE PROVIDED TO AVENUE NURSE, CHRIS, AT THIS TIME. RIDE SCHEDULED FOR 0603/14/2024. NO FURTHER QUESTIONS BY THE PRIMARY NURSE.
[2024-03-14] MEDS: Haloperidol Lactate 5 MG/ML Vial 2 MG IV (02:15)
[2024-03-14] MEDS: DiphenhydrAMINE 50 MG/ML Syringe 12.5 MG IV (02:16)
== END 2024-03-14 06:52 | disposition home or self-care (01) ==
PROVIDERS: Emergency Provider Emergency Medicine; PCP Family Medicine; Visit Provider Emergency Medicine
DX: K59.00 Constipation, unspecified (principal); Z93.1 Gastrostomy status; G20.A1 Parkinson's disease without dyskinesia, without mention of fluctuations; I11.0 Hypertensive heart disease with heart failure; I50.9 Heart failure, unspecified; F02.80 Dementia in other diseases classified elsewhere, unspecified severity, without behavioral disturbance, psychotic disturbance, mood disturbance, and anxiety; I48.19 Other persistent atrial fibrillation; I42.9 Cardiomyopathy, unspecified; E11.42 Type 2 diabetes mellitus with diabetic polyneuropathy; R53.81 Other malaise; F41.9 Anxiety disorder, unspecified; I25.10 Atherosclerotic heart disease of native coronary artery without angina pectoris; Z79.01 Long term (current) use of anticoagulants; Z79.899 Other long term (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; Z87.891 Personal history of nicotine dependence
CPT/HCPCS: 74018; 80048; 80076; 82140; 83735; 85025; 93005; 96374; 96375; 99284; A4216